=== PATIENT | female | born 1950 | race Caucasian/White ===

== ENCOUNTER 2016-08-31 15:13 | Inpatient (IN) | payer OTHER ==
[~2016-08-31] VITALS: Ht 162.6 cm; Wt 122.1 kg
[~2016-08-31 15:13] MED LIST: ADVIN25050 INH; BMX1 PO; CZR50 PO; IPRA1AER2 INH; IRON1CAP2 PO; POTA20TA16 PO; VTMD1000 PO
--- NOTE | 2016-08-31 15:50 | DIAGNOSTIC IMAGING REPORT ---
CHEST ONE VIEW PORTABLE CLINICAL HISTORY: fever COMPARISON STUDY: 08/12/2015 FINDINGS: The heart is mildly enlarged. There is no focal pulmonary consolidation. There is no failure. There are no pleural effusions. There is evidence for prior vertebroplasty. IMPRESSION: No active disease in the chest. Electronically signed by: Fox Garcia M.D. 08/31/2016 3:49 PM Dictated Date/Time: 08/31/2016 3:47 PM
[2016-08-31 15:53] LABS: VEN BLOOD GAS BASE EXCESS 20.9 mmol/L; VENOUS BLOOD GAS PCO2 103 mmHg (38.0-50.0); VENOUS BLOOD GAS PO2 30 mmHg
[2016-08-31 15:54] LABS: VEN BLD GAS O2 SATURATION < 60.0 %
[2016-08-31 15:58] LABS: BASO % 0.2 %; BASO ABS # 0.03 K/uL (0-0.2); COMPLETE YES; EOS % 3.5 %; HEMATOCRIT 33.5 % (37-47); IG% 0.4 %; LYMPH % 13.8 %; LYMPH ABS # 2.07 K/uL (1.2-3.4); MEAN CELL VOLUME 102.1 fL (80-100); MEAN CORPUSCULAR HEMOGLOBIN 31.7 pg (25-34); MEAN PLATELET VOLUME 9.4 fL (7.4-10.4); NEUT % 77.1 %; PLATELET COUNT 216 K/uL (130-400); RED BLOOD COUNT 3.28 M/uL (4.2-5.4); WHITE BLOOD COUNT 15.01 K/uL (4.8-10.8)
[2016-08-31 16:01] LABS: ISTAT CARBON DIOXIDE > 40 mEq/l (24-31); ISTAT CHLORIDE 84 mEq/L (101-112); ISTAT CREATININE 1.4 mg/dl (0.6-1.3); ISTAT HEMATOCRIT 34 % (37-47); ISTAT HEMOGLOBIN 11.6 g/dl (12.0-16.0); ISTAT IONIZED CALCIUM 1.15 mmol/l (1.12-1.32); ISTAT SODIUM 139 mEq/L (135-144)
[2016-08-31] MEDS ORDERED: ALBUTEROL 0.083% NEBU SOLN 3 ML VIAL INH STA (16:05)
[2016-08-31 16:06] LABS: PROTHROMBIN TIME (PATIENT) 11.2 SECONDS (9.0-12.0)
[2016-08-31] MEDS ORDERED: DOCU100C31 PO (16:11)
[2016-08-31] MEDS ORDERED: ACET-1311 PO (16:11)
[2016-08-31] MEDS ORDERED: SENN-65 PO (16:13)
[2016-08-31 16:22] LABS: ALT/SGPT 18 U/L (12-78); BLOOD UREA NITROGEN 45 mg/dl (7-18); BUN/CREATININE RATIO 28.2 (10-20); CALCIUM 9.4 mg/dl (8.5-10.1); CHLORIDE 89 mmol/L (98-107); GLUCOSE 135 mg/dl (70-99); MAGNESIUM 1.7 mg/dl (1.8-2.4); POTASSIUM 3.9 mmol/L (3.5-5.1); SODIUM 139 mmol/L (136-145)
[2016-08-31 16:27] LABS: ALKALINE PHOSPHATASE 87 U/L (45-117); AST/SGOT 12 U/L (15-37)
[2016-08-31 16:29] LABS: URINE APPEARANCE CLEAR (CLEAR); URINE BILIRUBIN NEG (NEG); URINE COLOR YELLOW; URINE EPITHELIAL CELL AUTO >30 /lpf (0-5); URINE NITRITE NEG (NEG); URINE SPECIFIC GRAVITY 1.004 (1.000-1.030); UROBILINOGEN NEG (NEG); ZZUR CULT IF INDIC CLEAN CATCH YES
[2016-08-31 16:30] LABS: MANUAL MICROSCOPIC REQUIRED? NO; REVIEW REQ? NO
[2016-08-31] MEDS ORDERED: METHYLPREDNISOLONE IV 40 MG in SYRINGE 0 ML IV SCH (16:30)
[2016-08-31] MEDS ORDERED: LEVAQUIN 750MG / 150ML D5W IV ONE (16:30)
[2016-08-31 16:40] VITALS: PULSE 71; O2SAT 71
[2016-08-31 16:48] LABS: CARBON DIOXIDE 45 mmol/L (21-32)
[2016-08-31] MEDS ORDERED: MAGNESIUM HYDROXIDE SUSP 30 ML UDC PO PRN (17:30)
[2016-08-31] MEDS ORDERED: ALUMINUM/MAGNESIUM/SIMETH (MAALOX MAX) 30 ML UDC PO PRN (17:30)
[2016-08-31] MEDS ORDERED: ONDANSETRON INJ 2 MG/ML 2 ML VIAL IV PRN (17:30)
[2016-08-31] MEDS ORDERED: LEVALBUTEROL 0.63MG/3 ML NEB INH PRN (17:30)
[2016-08-31] MEDS ORDERED: NITROGLYCERIN 0.4 MG SL PER TAB CHARGE SL PRN (17:30)
[2016-08-31] MEDS ORDERED: ACETAMINOPHEN 325 MG TAB PO PRN ×2 (17:30)
[2016-08-31] MEDS ORDERED: IPRA1AER2 INH (17:38)
[2016-08-31] MEDS ORDERED: ADVIN50/60 INH (17:38)
[2016-08-31] MEDS ORDERED: ALBINS/ INH (17:38)
[2016-08-31] MEDS ORDERED: POTA20TA16 PO (17:39)
[2016-08-31 18:51] LABS: ARTERIAL BLD GAS O2 SATURATION 96.6 % (90-95); ARTERIAL BLOOD GAS BASE EXCESS 20.5 mEq/L (-9-1.8); ARTERIAL BLOOD GAS HCO3 49 mmol/L (19-24); ARTERIAL BLOOD GAS PO2 103 mm/Hg (80-95)
[2016-08-31 18:52] LABS: ALLEN TEST POS (POS); O2 ADMINISTRATION 40%
--- NOTE | 2016-08-31 19:07 | HISTORY & PHYSICAL EXAMINATION ---
DATE OF ADMISSION: 08/31/2016 CHIEF COMPLAINT: Acute respiratory failure. HISTORY OF PRESENT ILLNESS: This is a 66-year-old female with past medical history significant for chronic respiratory failure secondary to severe COPD, at one point of time she was in hospice secondary to copd; obstructive sleep apnea on BiPAP, history of right-sided heart failure, morbid obesity, hyperlipidemia, hypertension, atrial fibrillation, chronic kidney disease, stage 3-4, history of spinal stenosis, GERD, depression, presents with not feeling well, weak and confused and in the ER her CO2 was high. She was placed on BiPAP. Currently she seems to be back to her baseline. The patient lives with her daughter and she walks with help of a walker.She was here in June with same CO2 retention and COPD exacerbation. At that time she was sent to [facility]. She stayed for 1 week after that came to home and she is apparently doing okay, but last few days she is getting progressively weak, tired and had generalized weakness, not able to ambulate much, appetite is going down and patient seemed confused today and she was brought to the hospital. As per the daughter, patient has BiPAP at home and she is using it regularly while she is sleeping. Has some chills but no fevers, some nausea, no vomiting. She is using stool softeners and currently having diarrhea and daughter thinks secondary to stool softeners. No abdominal pain, no chest pain. Has a dry cough. Currently resting comfortably and hemodynamically stable on BiPAP.Follows with Pulmonary and has an appointment tomorrow. ALLERGIES: No known drug allergies. PAST MEDICAL HISTORY: As mentioned above. PAST SURGICAL HISTORY: Neck spine fusion surgery, appendectomy, cholecystectomy, repair of the wrist with internal fixation, right shoulder replacement, right total hip replacement. MEDICATIONS: Currently the patient is on propafenone 150 mg p.o. q. 8 hours, losartan 50 mg p.o. daily, Lipitor 20 mg p.o. daily, Bumex 1 mg p.o. b.i.d., potassium chloride 20 mEq every other day, vitamin D 2000 units p.o. daily, Combivent 1 puff q.i.d., iron complex daily, multivitamin daily, albuterol nebulization every 4-6 hours p.r.n., Toprol-XL 50 mg p.o. daily, gabapentin 300 mg p.o. t.i.d., levothyroxine 88 mcg p.o. daily, Zantac 150 mg p.o. b.i.d., allopurinol 300 mg p.o. daily, Tylenol 1000 mg p.o. q. 6 hours p.r.n., aspirin 81 mg p.o. daily, Advair Diskus 500/50 mcg 1 puff inhalation b.i.d. FAMILY HISTORY: Significant for mother had diabetes and heart disorder. Sister had CABG at the age of 43. SOCIAL HISTORY: . Former smoker, quit in 2009, smoked half pack a day for 35 years. No alcohol use. No drug use. Currently lives with her daughter. REVIEW OF SYSTEMS: As per HPI. Rest of review of symptoms negative. PHYSICAL EXAMINATION: GENERAL: The patient is morbidly obese, not in distress. VITAL SIGNS: Temperature 36.5, pulse 73, respiratory rate 18, blood pressure 124/54, oxygen 98% on BiPAP. HEENT: No pallor, no icterus. Pupils equal, round, and reactive to light. NECK: No JVD, no neck masses, no carotid bruits. CARDIOVASCULAR: S1, S2 heard, regular rate and rhythm, no murmur, no gallop. RESPIRATORY SYSTEM: Diminished bilateral breath sounds. No wheezing, no crackles. ABDOMEN: Soft, bowel sounds present. Nontender. No distention. CENTRAL NERVOUS SYSTEM: Alert and oriented x3. Nonfocal. EXTREMITIES: No edema. No erythema. LABS: WBC 15, hemoglobin 10.4, hematocrit 33.5, platelets 216. Sodium 139, potassium 3.9, chloride 89, CO2 of 45, BUN 45, creatinine 1.6, serum glucose 135, point of care lactic acid 1.16, calcium 9.4, magnesium 1.7, total bilirubin 0.3, direct bilirubin 0.1, AST of 12, ALT 18, alkaline phosphatase 87, total creatine kinase 26, troponin I less than 0.015. PT 11.2, INR 1. Urinalysis, small leukocyte esterase. Chest x-ray: No acute process seen. EKG, normal sinus rhythm with a rate of 69, nonspecific ST abnormality, no significant change from previous EKG. ASSESSMENT AND PLAN: This is a 66-year-old female who presents with acute on chronic respiratory failure secondary to chronic obstructive pulmonary disease exacerbation. 1. Acute on chronic respiratory failure with chronic obstructive pulmonary disease exacerbation. Venous blood gas showed a pCO2 of 103. Currently, saturating fine on BiPAP. We will place her on IV Solu-Medrol, IV Levaquin, nebs, continue the BiPAP. Repeat ABG. The patient is to follow up with pulmonary. We will consult pulmonary for further recommendations. 2. Obstructive sleep apnea, on BiPAP. BiPAP setting adjustment as per pulmonary. 3. possible urinary tract infection on Levaquin. We will follow the cultures. 4. Right-sided heart failure. Does not seem to be volume overload. Continue her home Bumex and potassium supplements. Monitor for any volume overload. 5. Acute renal failure and chronic kidney disease. Baseline creatinine around 1.3 to 1.4, creatinine 1.6, possibly from above. We will follow the labs. If worsening, we will hold the Bumex. 6. History of hyperlipidemia. Continue statin. 7. History of hypertension. Continue Cozaar and metoprolol. Monitor the blood pressure. 8. History of atrial fibrillation, currently in sinus rhythm on metoprolol. Not on any blood thinners. 9. Gastroesophageal reflux disease, on proton pump inhibitors. 10. Deep venous thrombosis prophylaxis, heparin subQ, sequential compression devices. DISPOSITION: Admit to tele floor. PT and OT prior to discharge. Social service to help with discharge planning. Code status level 3. MTDD
[2016-08-31] MEDS ORDERED: LEVOFLOXACIN CONSULT ACTIVE PRN (20:00)
[2016-08-31 20:51] VITALS: BP 139/67; PULSE 81; TEMP 36.8; O2SAT 92; Ht 162.6 cm; Wt 122.1 kg
--- NOTE | 2016-08-31 21:21 | EMERGENCY ROOM VISIT NOTE ---
History Report prepared by Warren: Eunice Leach Under the Supervision of: Jose Enrique AyersO. First contact with patient: 15:14 Stated Complaint: ALTERED MENTAL STATUS History of Present Illness The patient is a 66 year old female who presents to the Emergency Room via EMS with complaints of a persistent productive cough starting about 2 weeks ago. About 2 weeks ago, she also started having shakiness. She is on 4 L of oxygen at home and denies any changes. She has a history of asthma and COPD. She also started having diarrhea a few weeks ago. She has a bowel movement about 3-4 times a day. She had a diarrheal bowel movement this morning. The patient denies any recent antibiotics. Daughter notes that she has been more confused recently. She's been having trouble remembering the date and year. This has happened before in the past when she had an elevated CO2. Also having trouble following conversations. Pt denies headache, change in vision, fevers, chest pain, nausea, vomiting, pain with urination, and melena. Source of History: patient, EMS Onset: about 2 weeks ago Position: other (global) Quality: other (productive cough) Timing: other (persistent) Associated Symptoms: + diarrhea, No chest pain, No fevers, No headache, No nausea, No vomiting Review of Systems See HPI for pertinent positives & negatives. A total of 10 systems reviewed and were otherwise negative. Past Medical & Surgical Medical Problems: (1) Acute and chronic respiratory failure (2) CHF (congestive heart failure) (3) CKD (chronic kidney disease), stage IV (4) COPD (chronic obstructive pulmonary disease) (5) COPD exacerbation (6) Depression (7) Dyslipidemia (8) Fall (9) GERD (gastroesophageal reflux disease) (10) HTN (hypertension) (11) EVONNE (iron deficiency anemia) (12) Myocardial infarction (13) Paroxysmal a-fib Surgical Problems: (1) History of appendectomy (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 (4) Hx of cholecystectomy (5) S/P cervical spinal fusion (6) S/P wrist surgery Family History Diabetes mellitus MOTHER FH: CAD (coronary artery disease) MOTHER SISTER Social History Smoking Status: Former Smoker Alcohol Use: none Drug Use: none Marital Status: single Housing Status: lives with family Occupation Status: retired Current/Historical Medications Scheduled Allopurinol (Zyloprim), 300 MG PO DAILY Aspirin (Aspirin Ec), 81 MG PO DAILY Atorvastatin (Lipitor), 20 MG PO DAILY Bumetanide (Bumetanide), 1 MG PO BID Ferrous Sulfate (Kp Ferrous Sulfate), 1 TAB PO DAILY Fluticasone Prop/Salmeterol (Advair Diskus 500/50 60 Dose), 1 PUFFS INH BID Gabapentin (Neurontin), 300 MG PO TID Ipratropium-Albuterol (Combivent Respimat), 1 PUFFS INH QID Levothyroxine Sodium (Synthroid), 88 MCG PO DAILY Losartan Potassium (Losartan Potassium), 50 MG PO QAM Metoprolol Succinate (Toprol Xl), 50 MG PO DAILY Multivitamins/Minerals (Certavite/Antioxidants), 1 TAB PO DAILY Potassium Ext Rel (Klor-Con), 20 MEQ PO Q2D Propafenone Hcl (Propafenone Hcl), 150 MG PO TID Ranitidine (Zantac), 150 MG PO BID Scheduled PRN Acetaminophen (Tylenol), 650 MG PO Q4H PRN for Pain or Fever Albuterol Sulf (Proventil 0.083% 2.5MG/3ML), 2.5 MG INH QID PRN for SOB/Wheezing Allergies Coded Allergies: Adhesives (Verified Allergy, Severe, RED RASH, 08/31/16) Latex1 -Allergic Contact Dermititis (Verified Adverse Reaction, Mild, TAPE -SORE, 08/31/16) Morphine (Verified Adverse Reaction, Mild, DELUSIONS, 08/31/16) Physical Exam Vital Signs Date Time Temp Pulse Resp B/P Pulse Ox O2 Delivery O2 Flow Rate FiO2 08/31/16 17:01 73 18 124/54 99 BiPAP 08/31/16 16:40 71 71 08/31/16 16:12 98 Nasal Cannula 4.0 08/31/16 15:29 77 08/31/16 15:19 79 20 136/60 96 Nasal Cannula 4.0 08/31/16 15:18 36.5 74 16 136/60 98 Nasal Cannula 4.0 Physical Exam GENERAL: Sitting up in bed, disheveled, ill appearing, on nasal canula. EYE EXAM: normal conjunctiva OROPHARYNX: no exudate, no erythema, lips, buccal mucosa, and tongue normal and mucous membranes are moist NECK: supple, no nuchal rigidity, no adenopathy, non-tender LUNGS: Crackles bilaterally. Normal chest wall mechanics HEART: no murmurs, S1 normal and S2 normal ABDOMEN: abdomen soft, non-tender, normo-active bowel sounds, no masses, no rebound or guarding. BACK: Back is symmetrical on inspection and there is no deformity, no midline tenderness, no CVA tenderness. SKIN: no rashes and no bruising UPPER EXTREMITIES: upper extremities are grossly normal. LOWER EXTREMITIES: Calves are equal bilaterally. No pitting edema. NEURO EXAM: Normal sensorium, cranial nerves II-XII grossly intact, normal speech, no gross weakness of arms, no gross weakness of legs. Medical Decision & Procedures ER Provider Diagnostic Interpretation: Xray results per the radiologist and my interpretation. CHEST ONE VIEW PORTABLE CLINICAL HISTORY: fever COMPARISON STUDY: 08/12/2015 FINDINGS: The heart is mildly enlarged. There is no focal pulmonary consolidation. There is no failure. There are no pleural effusions. There is evidence for prior vertebroplasty. IMPRESSION: No active disease in the chest. Electronically signed by: Fox Garcia M.D. 08/31/2016 3:49 PM Dictated Date/Time: 08/31/2016 3:47 PM Laboratory Results 08/31/16 14:50 Red Blood Count 3.28, Mean Corpuscular Volume 102.1, Mean Corpuscular Hemoglobin 31.7, Mean Corpuscular Hemoglobin Concent 31.0, Mean Platelet Volume 9.4, Neutrophils (%) (Auto) 77.1, Lymphocytes (%) (Auto) 13.8, Monocytes (%) ( Auto) 5.0, Eosinophils (%) (Auto) 3.5, Basophils (%) (Auto) 0.2, Neutrophils # ( Auto) 11.57, Lymphocytes # (Auto) 2.07, Monocytes # (Auto) 0.75, Eosinophils # ( Auto) 0.53, Basophils # (Auto) 0.03 08/31/16 15:40 Test 08/31/16 14:50 08/31/16 15:40 08/31/16 15:45 08/31/16 16:08 White Blood Count 15.01 K/uL (4.8-10.8) Red Blood Count 3.28 M/uL (4.2-5.4) Hemoglobin 10.4 g/dL (12.0-16.0) Hematocrit 33.5 % (37-47) Mean Corpuscular Volume 102.1 fL (80-100) Mean Corpuscular Hemoglobin 31.7 pg (25-34) Mean Corpuscular Hemoglobin Concent 31.0 g/dl (32-36) Platelet Count 216 K/uL (130-400) Mean Platelet Volume 9.4 fL (7.4-10.4) Neutrophils (%) (Auto) 77.1 % Lymphocytes (%) (Auto) 13.8 % Monocytes (%) (Auto) 5.0 % Eosinophils (%) (Auto) 3.5 % Basophils (%) (Auto) 0.2 % Neutrophils # (Auto) 11.57 K/uL (1.4-6.5) Lymphocytes # (Auto) 2.07 K/uL (1.2-3.4) Monocytes # (Auto) 0.75 K/uL (0.11-0.59) Eosinophils # (Auto) 0.53 K/uL (0-0.5) Basophils # (Auto) 0.03 K/uL (0-0.2) RDW Standard Deviation 54.4 fL (36.4-46.3) RDW Coefficient of Variation 14.6 % (11.5-14.5) Immature Granulocyte % (Auto) 0.4 % Immature Granulocyte # (Auto) 0.06 K/uL (0.00-0.02) Bedside Hemoglobin 11.6 g/dl (12.0-16.0) Bedside Hematocrit 34 % (37-47) Prothrombin Time 11.2 SECONDS (9.0-12.0) Prothromb Time International Ratio 1.0 (0.9-1.1) Venous Blood pH 7.32 (7.36-7.41) Venous Blood Partial Pressure CO2 103 mmHg (38.0-50.0) Venous Blood Partial Pressure O2 30 mmHg Venous Blood HCO3 51 mmol/L Venous Blood Oxygen Saturation < 60.0 % Venous Blood Base Excess 20.9 mmol/L Bedside Sodium 139 mEq/L (135-144) Bedside Potassium 3.9 mEq/L (3.3-5.0) Bedside Chloride 84 mEq/L (101-112) Bedside Total CO2 > 40 mEq/l (24-31) Anion Gap 15.0 mmol/L (16-25) Bedside Blood Urea Nitrogen 45 mg/dl (7-18) Bedside Creatinine 1.4 mg/dl (0.6-1.3) Est Creatinine Clear Calc Drug Dose 42.9 ml/min Estimated GFR () 38.0 Estimated GFR (Non- 32.8 BUN/Creatinine Ratio 28.2 (10-20) Bedside Glucose (other) 143 mg/dl (70-99) Calcium Level 9.4 mg/dl (8.5-10.1) Bedside Ionized Calcium (Shanika) 1.15 mmol/l (1.12-1.32) Magnesium Level 1.7 mg/dl (1.8-2.4) Total Bilirubin 0.3 mg/dl (0.2-1) Direct Bilirubin < 0.1 mg/dl (0-0.2) Aspartate Amino Transf (AST/SGOT) 12 U/L (15-37) Alanine Aminotransferase (ALT/SGPT) 18 U/L (12-78) Alkaline Phosphatase 87 U/L (45-117) Total Creatine Kinase 26 U/L (26-192) Creatine Kinase MB < 0.5 ng/ml (0.5-3.6) Creatine Kinase MB Ratio (0-3.0) Troponin I < 0.015 ng/ml (0-0.045) Total Protein 7.8 gm/dl (6.4-8.2) Albumin 3.1 gm/dl (3.4-5.0) Bedside Lactic Acid Venous 1.16 mmol/L (0.90-1.70) Urine Color YELLOW Urine Appearance CLEAR (CLEAR) Urine pH 5.0 (4.5-7.5) Urine Specific [place] 1.004 (1.000-1.030) Urine Protein NEG (NEG) Urine Glucose (UA) NEG (NEG) Urine Ketones NEG (NEG) Urine Occult Blood NEG (NEG) Urine Nitrite NEG (NEG) Urine Bilirubin NEG (NEG) Urine Urobilinogen NEG (NEG) Urine Leukocyte Esterase SMALL (NEG) Urine WBC (Auto) 5-10 /hpf (0-5) Urine RBC (Auto) 10-30 /hpf (0-4) Urine Hyaline Casts (Auto) 0 /lpf (0-5) Urine Epithelial Cells (Auto) >30 /lpf (0-5) Urine Bacteria (Auto) 2+ (NEG) Laboratory results per my review. Medications Administered Medications (Trade) Dose Ordered Sig/Rupinder Route Start Time Stop Time Status Last Admin Dose Admin Albuterol Sulfate (Ventolin 0.083% 2.5MG/3ML Neb) 2.5 mg NOW STAT INH 08/31/16 16:05 08/31/16 16:07 DC 08/31/16 17:10 2.5 MG Levofloxacin 750 mg 750 mg NOW ONCE IV 08/31/16 16:30 08/31/16 16:31 DC 08/31/16 16:57 750 MG Methylprednisolone Sodium Succinate/ Syringe (Solu-Medrol IV/ Syringe) 0.64 ml @ 1.5 mls/min NOW IV 08/31/16 16:30 08/31/16 19:53 DC 08/31/16 17:15 1.5 MLS/MIN ECG Indication: SOB/dyspnea, other (Cough; confusion) Rate (beats per minute): 69 Rhythm: sinus rhythm Findings: Q waves (Septal), other (normal axis) ED Course ED COURSE: Vital signs were reviewed and showed chronically on 4 liters of oxygen. The patients medical record was reviewed The above diagnostic studies were performed and reviewed. ED treatments and interventions as stated above. 1514: The patient was evaluated in room B02. A complete history and physical examination was performed. 1605: Albuterol Sulfate 2.5 mg INH 1620: I reevaluated the patient. She reports that she had similar symptoms the last time her CO2 was elevated. 1630: Methyl prednisolone Sodium Succinate 40 mg/Syringe 0.64 ml @ 1.5 mls/min IV, Levofloxacin 750 mg IV 1641: I discussed the [facility] Upon reevaluation, the patient is resting comfortably.I discussed my findings with the patient and she understands and agrees with the treatment plan. Based on the patients age, coexisting illnesses, exam and lab findings the decision to treat as an inpatient was made. The patient remained stable while under my care. The patient will be evaluated for further management. Medical Decision Differential diagnoses includes but is not limited to pneumonia, bronchitis, COPD/Asthma exacerbation, pneumothorax, pulmonary embolism, congestive heart failure, acute coronary syndrome Patient is a 66-year-old female who presents the ER for confusion associated with a cough and diffuse weakness/shakiness. She has a history of COPD/asthma. Patient has no other complaints at this time. On exam patient is on chronically 4 L nasal cannula. VBG shows a CO2 of 103. White count is elevated 15,000. With her history of COPD I did elect to give her steroids, and had and Levaquin with the change in sputum. Chest x-ray showed no obvious infiltrate. EKG was nondiagnostic. UA was contaminated. Patient was updated bedside and placed on BiPAP because of the elevated CO2 as I thought this would improve her mentation. She was updated at bedside and admitted to internal medicine. Consults Time Called: 1630 Consulting Physician: [facility] Returned Call: 1641 I discussed the patient's [facility] Impression Primary Impression: Hypercarbia Additional Impressions: Respiratory failure Leukocytosis COPD exacerbation Scribe Attestation The scribe's documentation has been prepared under my direction and personally reviewed by me in its entirety. I confirm that the note above accurately reflects all work, treatment, procedures, and medical decision making performed by me. Departure Information Dispostion Being Evaluated By Hospitalist Prescriptions Potassium Ext Rel (Klor-Con) 20 Meq Tabcr 20 MEQ PO Q2D for 30 Days, TAB every other day Prov: Manjit Frias MD 08/31/16 Albuterol Sulf (PROVENTIL 0.083% 2.5MG/3ML) 2.5 Mg/3 Ml Nebu 2.5 MG INH QID Y for SOB/Wheezing, #1 EA Prov: Manjit Frias MD 08/31/16 Ipratropium-Albuterol (COMBIVENT RESPIMAT) 1 Aer Aer 1 PUFFS INH QID, #1 INH Prov: Manjit Frias MD 08/31/16 Fluticasone Prop/Salmeterol (Advair Diskus 500/50 60 Dose) 1 Ea Aerp 1 PUFFS INH BID for 30 Days, #1 INHALER 5 Refills Prov: Manjit Frias MD 08/31/16 Referrals Babak Melendez M.D.([facility]) (PCP) Problem Qualifiers Additional Impressions: Respiratory failure Chronicity: acute on chronic Respiratory failure complication: unspecified whether with hypoxia or hypercapnia Qualified Codes: J96.20 - Acute and chronic respiratory failure, unspecified whether with hypoxia or hypercapnia Leukocytosis Leukocytosis type: unspecified Qualified Codes: D72.829 - Elevated white blood cell count, unspecified
[2016-08-31] MEDS: BUMETANIDE 1 MG TAB PO SCH (23:15)
[2016-08-31] MEDS: FLUTICASONE/SALMETEROL (ADVAIR) 500/50 INH 14 PUFF INH SCH (23:15)
[2016-08-31] MEDS: LEVALBUTEROL 1.25MG/3ML NEB INH SCH (23:15)
[2016-08-31] MEDS: RANITIDINE HCL 150 MG TAB PO SCH (23:16)
[2016-08-31] MEDS: GABAPENTIN 300 MG CAP PO SCH (23:16)
[2016-08-31] MEDS: PROPAFENONE HCL 150 MG TAB PO SCH (23:16)
[2016-08-31] MEDS: HEPARIN SOD 5000 UNIT/0.5 ML CARP SQ SCH (23:19)
[2016-08-31 23:27] VITALS: PULSE 78
[2016-09-01] VITALS (14 sets, daily range): BP systolic 112–143; BP diastolic 47–71; PULSE 69–87; TEMP 36.5–37; O2SAT 90–98
[2016-09-01] MEDS: LEVALBUTEROL 1.25MG/3ML NEB INH SCH ×4 (03:50→21:00)
[2016-09-01] MEDS: METHYLPREDNISOLONE IV 40 MG in SYRINGE 0 ML IV SCH ×3 (03:51→16:07)
[2016-09-01 05:12] LABS: BASO % 0.1 %; BASO ABS # 0.01 K/uL (0-0.2); COMPLETE YES; EOS % 0.1 %; HEMATOCRIT 32.7 % (37-47); IG% 0.3 %; LYMPH % 5.6 %; LYMPH ABS # 0.83 K/uL (1.2-3.4); MEAN CELL VOLUME 101.2 fL (80-100); MEAN CORPUSCULAR HEMOGLOBIN 31.6 pg (25-34); MEAN CORPUSCULAR HGB CONC 31.2 g/dl (32-36); MEAN PLATELET VOLUME 9.6 fL (7.4-10.4); MONO % 0.8 %; NEUT % 93.1 %; PLATELET COUNT 205 K/uL (130-400); RED BLOOD COUNT 3.23 M/uL (4.2-5.4); WHITE BLOOD COUNT 14.81 K/uL (4.8-10.8)
[2016-09-01 05:30] LABS: BUN/CREATININE RATIO 31.5 (10-20); CALCIUM 9.4 mg/dl (8.5-10.1); CREATININE 1.5 mg/dl (0.60-1.20); MAGNESIUM 1.6 mg/dl (1.8-2.4); POTASSIUM 4.1 mmol/L (3.5-5.1)
[2016-09-01] MEDS: HEPARIN SOD 5000 UNIT/0.5 ML CARP SQ SCH ×3 (05:40→21:21)
[2016-09-01] MEDS: LEVOTHYROXINE 88 MCG TAB PO SCH (06:07)
[2016-09-01] MEDS ORDERED: MAGNESIUM SULFATE 1GM / D5W 1 GM in PREMIXED IN D5W 100 ML IV ONE (06:45)
[2016-09-01] MEDS: FLUTICASONE/SALMETEROL (ADVAIR) 500/50 INH 14 PUFF INH SCH ×2 (07:24→20:10)
[2016-09-01] MEDS: ATORVASTATIN 20 MG TAB PO SCH (07:24)
[2016-09-01] MEDS: GABAPENTIN 300 MG CAP PO SCH ×3 (07:24→20:10)
[2016-09-01] MEDS: BUMETANIDE 1 MG TAB PO SCH ×2 (07:24→16:08)
[2016-09-01] MEDS: POTASSIUM CHLORIDE 20 MEQ TABCR PO SCH (07:25)
[2016-09-01] MEDS: CEROVITE ADV FORMULA TAB PO SCH (07:25)
[2016-09-01] MEDS: FERROUS SULFATE 325 MG TAB PO SCH (07:25)
[2016-09-01] MEDS: METOPROLOL SUCC 50MG EXT REL TAB PO SCH (07:25)
[2016-09-01] MEDS: PROPAFENONE HCL 150 MG TAB PO SCH ×3 (07:25→20:10)
[2016-09-01] MEDS: ALLOPURINOL 300 MG TAB PO SCH (07:26)
[2016-09-01] MEDS: ASPIRIN 81 MG ECTAB PO SCH (07:26)
[2016-09-01] MEDS: LOSARTAN POTASSIUM 50 MG TAB PO SCH (07:26)
[2016-09-01] MEDS: RANITIDINE HCL 150 MG TAB PO SCH ×2 (07:26→20:10)
[2016-09-01 07:36] LABS: ALLEN TEST POS (POS); ARTERIAL BLD GAS O2 SATURATION 94.8 % (90-95); ARTERIAL BLOOD GAS BASE EXCESS 19.4 mEq/L (-9-1.8); ARTERIAL BLOOD GAS HCO3 48 mmol/L (19-24); ARTERIAL BLOOD GAS PO2 84 mm/Hg (80-95); ARTERIAL BLOOD GAS pH 7.39 (7.35-7.45); O2 ADMINISTRATION 4L
[2016-09-01] MEDS: ALBUT/IPRATROP 3MG/0.5MG NEB 3 ML VIAL INH SCH ×4 (08:00→19:20)
--- NOTE | 2016-09-01 09:18 | Clinical Documentation Query ---
CLINICAL DOCUMENTATION QUERY Dr. KUMAR, In your clinical opinion is this patient being managed for: ( + ) Chronic R sided CHF with preserved EF ( ) Other explanation of clinical findings (Please Explain) ( ) Unable to determine (Please Define) ( ) Need to Discuss ( ) Not Agree The medical record reflects the following clinical findings, treatment, and risk factors. Clinical Indicators: 66 yo female presenting with COPD exacerbation. H/P indicates pt with R sided heart failure (not volume overloaded). Review of ECHO May 2016 revealed EF 65-70% with grade I diastolic dysfunction. Treatment: continue home bumex, tele, I/O, daily wts Risk Factors: age, CKD stage IV, HTN, COPD Please clarify and document your clinical opinion in the progress notes and discharge summary. Terms such as "probable", "suspected", "likely", "questionable", "possible", or "still to be ruled out" are acceptable. IF IN AGREEMENT, YOU MUST DOCUMENT ABOVE DIAGNOSTIC STATEMENT IN DAILY PROGRESS NOTES AND DISCHARGE SUMMARY. This document is not part of the patient's record. Thank You, Hayde Calabrese, RN [phone]
--- NOTE | 2016-09-01 11:12 | Pulmonary Consultation ---
History General Date of Service: Sep 01, 2016. Stated Complaint: Acute And Chronic Respiratory Failure, Copd HPI The patient is a 66 year old female who presents to [facility] with complaints of Acute And Chronic Respiratory Failure, Copd. The patient's primary care provider is Babak Melendez M.D.(RAMEZ). Mrs. Padron is a 66-year-old female with a PmHx: of morbid obesity, severe COPD/cor pulmonale (chronic O2 2Lnc/previously on hospice), SIMONA on BiPAP with O2 support (4L), recurrent diastolic congestive heart failure, paroxysmal atrial fibrillation, hypertension, dyslipidemia, gastroesophageal reflux disease , and chronic renal insufficiency. After her most recent d/c from [facility] she went to [facility] for rehabilitation x 1week. She then went home and has been experiencing progressive AHN, generalized weakness, decreased appetite and confusion. She and her daughter do not BiPaP compliance during sleep. Today the patient notes decreased dyspnea at rest but is unable to define whether she is dyspneic at exertion secondary to her size. Denies: Fever, chills, chest pain, pleurisy, productive cough Work-up: WBC: 15K AB.40/82/103/4940% VB.32/103/30corrected: 7.36/87 Bicarb: 47estimated PaC02: 80 BUN/Cr: 47/1.50 Hep C: negative Urine Cx: pending CXR (08/31/16) hilar fullness with gabe-bronchial cuffing, no focal infiltrates CT chest (06/12/16) Bilateral pleural thickening gravity dependent regions RUL GGO 12mm RUL 7mm solid nodule Bilateral lower lobe bronchiectasis Previous workup: Echocardiogram (11/01/12) 1.LV: EF=55-60% 2.RV: normal size and function 3.RVSP:50-60mmHg 4.Dilated inferior vena cava Microbiology: 09/01/12: Right hip--Corynebacterium, coag-negative staph, enterococcus Faceium x2 (VRE) 10/05/12: Right hip synovial [id number] staph 10/05/12: Right hip tissue--coag-negative staph 10/23/12: Urine --Serratia marcescens 12/22/12: Right hip--coag negative staph 2 08/20/12: Sputum--pseudomonas 06/01/13: Urine--- Escherichia coli + enterococcus (VRE) 05/29/16: Urine--- Escherichia coli Historian: patient, family, EMS Review of Systems Constitutional: reports: no symptoms Eyes: reports: no symptoms ENT: reports: no symptoms Cardiovascular: reports: no symptoms Respiratory: reports: AHN Gastrointestinal: reports: no symptoms Genitourinary - Female: reports: no symptoms Musculoskeletal: reports: back pain, myalgias Integumentary: reports: no symptoms Neurologic: reports: no symptoms Psychiatric: reports: no symptoms Endocrine: no symptoms Hematologic / Lymphatic: no symptoms Allergic / Immunologic: no symptoms Past Medical History Past Medical History: ActiveProblems_40_twCiteListControlStart 1. Carotid Atherosclerosis 2. CKD 3 3. COPD/chronic bronchitis (chronic 2Lnc) 4. Diastolic CHF 5. GERD 6. Cor Pulmonale 7. Coronary Artery Disease 8. Dyslipidemia 9. Hypertension 10.Hypothyroidism 11. Obesity 12. Obstructive Sleep Apnea 13. Paroxysmal Atrial Fibrillation 14. Renal Insufficiency 15. PastMedicalHistory_10_twCiteListControlStart Depression 16. Paroxysmal coughing causing 3 broken ribsParoxysmal coughing/3 broken ribs 17. Right sixth rib fractureright 6th rib fx 18. 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 RUL GGO Past Medical History: A Fib, congestive heart failure, COPD, depression, high cholesterol, hypothyroidism, other Past Surgical History: 1. Appendectomy 2. Cholecystectomy with Common Bile Duct Exploration 3. Hip Surgery Right/total hip 4. Oophorectomy V45.77 5. Rotator Cuff Repair right 2011 6. Right femoral fracture-ORIF July 2012 7. EGD 3 8. Bronchoscopy 9. Sigmoidoscopy 10. spinal fusion Past Surgical History: cholecystectomy Family History Diabetes mellitus MOTHER FH: CAD (coronary artery disease) MOTHER SISTER Other: Other Social History Hx Tobacco Use In Past Year?: No Smoking Status: Former Smoker Alcohol: never Drug Use: none Marital status: single Occupational Status: retired Immunizations History of Influenza Vaccine: Yes Influenza Vaccine Date: May 19, 2016 History of Tetanus Vaccine?: Yes Tetanus Immunization Date: Jan 11, 2008 History of Pneumococcal: Yes Pneumococcal Date: May 19, 2016 History of MDRO History of MDRO: Yes Type of MDRO: VRE Allergies Coded Allergies: Adhesives (Verified Allergy, Severe, RED RASH, 08/31/16) Latex1 -Allergic Contact Dermititis (Verified Adverse Reaction, Mild, TAPE -SORE, 08/31/16) Morphine (Verified Adverse Reaction, Mild, DELUSIONS, 08/31/16) Current Medications Reported Home Medications Medications Dose Route/Sig Max Daily Dose Days Date Category Dose Instructions Klor-Con (Potassium Chloride) 20 Meq Tabcr 20 Meq PO Q2D 30 08/31/16 Rx every other day Proventil 0.083% 2.5MG/3ML (Albuterol Sulf) 2.5 Mg/3 Ml Nebu 2.5 Mg INH QID PRN 08/31/16 Rx Combivent Respimat (Ipratropium-Albuterol) 1 Aer Aer 1 Puffs INH QID 08/31/16 Rx Advair Diskus 500/50 60 Dose (Fluticasone Prop/Salmeterol) 1 Ea Aerp 1 Puffs INH BID 30 08/31/16 Rx Tylenol (Acetaminophen) 325 Mg Tab 650 Mg PO Q4H PRN 08/31/16 Reported Kp Ferrous Sulfate (Ferrous Sulfate) 325 Mg Tab 1 Tab PO DAILY 30 08/31/16 Reported Bumetanide 1 Mg Tab 1 Mg PO BID 30 06/15/16 Rx Losartan Potassium 50 Mg Tab 50 Mg PO QAM 30 06/02/16 Rx Lipitor (Atorvastatin) 20 Mg Tab 20 Mg PO DAILY 06/01/16 Reported Certavite/Antioxidants (Multivitamins/Minerals) 1 Tab Tab 1 Tab PO DAILY 06/01/16 Reported Propafenone Hcl 150 Mg Tab 150 Mg PO TID 05/29/16 Reported Zyloprim (Allopurinol) 300 Mg Tab 300 Mg PO DAILY 05/29/16 Reported Synthroid (Levothyroxine Sodium) 88 Mcg Tab 88 Mcg PO DAILY 05/29/16 Reported Toprol Xl (Metoprolol Succinate) 50 Mg Tab 50 Mg PO DAILY 06/08/13 Reported Neurontin (Gabapentin) 300 Mg Cap 300 Mg PO TID 06/08/13 Reported Aspirin Ec (Aspirin) 81 Mg Tab 81 Mg PO DAILY 04/03/13 Reported Zantac (Ranitidine HCl) 150 Mg Tab 150 Mg PO BID 03/08/13 Reported Physical Physical Exam Vital Signs: Date Time Temp Pulse Resp B/P Pulse Ox O2 Delivery O2 Flow Rate FiO2 09/01/16 08:00 Room Air 09/01/16 07:30 87 16 97 Nasal Cannula 4.0 09/01/16 05:11 76 09/01/16 04:00 36.6 78 24 143/71 98 Nasal Cannula 4.0 09/01/16 04:00 Nasal Cannula 4.0 09/01/16 03:45 73 16 Nasal Cannula 4.0 94 09/01/16 02:02 74 09/01/16 00:00 36.7 76 22 139/58 97 Nasal Cannula 4.0 09/01/16 00:00 Nasal Cannula 4.0 08/31/16 23:27 78 18 Nasal Cannula 4.0 96 08/31/16 22:21 88 08/31/16 20:51 36.8 81 24 139/67 92 Nasal Cannula 6.0 08/31/16 19:53 70 24 139/67 96 Room Air 08/31/16 19:29 76 08/31/16 18:32 72 125/60 99 BiPAP 08/31/16 17:01 73 18 124/54 99 BiPAP 08/31/16 16:40 71 71 08/31/16 16:12 98 Nasal Cannula 4.0 08/31/16 15:29 77 08/31/16 15:19 79 20 136/60 96 Nasal Cannula 4.0 08/31/16 15:18 36.5 74 16 136/60 98 Nasal Cannula 4.0 General Appearance: mild distress Head: NORMOCEPHALIC, ATRAUMATIC Eyes: PERRLA, NO DISCHARGE, EOMI, SCLERAE NORMAL, CONJUNCTIVAE NORMAL ENT: NORMAL EAR EXAM, NORMAL NASAL EXAM, NORMAL MOUTH EXAM, NORMAL THROAT EXAM Neck: other (short neck estimated circumference of the neck is probably greater than 18 cm) Respiratory: other (decreased breath sounds bilaterally but clear to auscultation) Cardiovasular: REGULAR RATE/RHYTHM, NORMAL S1S2, NO M/G/R, NO MURMUR, NO GALLOP Abdomen: NON TENDER, NORMAL BOWEL SOUNDS, NO REBOUND, NO MASSES, other (morbid obesity) Genitourinary - Female: EXTERNAL GENITALIA NORMAL Back: NORMAL INSPECTION, NO MIDLINE TENDERNESS, NO CVA TENDERNESS Upper Extremities: NO EDEMA, NO DEFORMITY, NORMAL ROM Lower Extremities: NO EDEMA, NO DEFORMITY, NORMAL ROM Pulses: carotid (R) (2+), carotid (L) (2+), radial (R), posterior tibial (R), posterior tibial (L) (1+) Neuro: ALERT, NORMAL MOTOR EXAM, NORMAL SENSATION, other (oriented to person and place) Reflexes: biceps (R) (2+), bicpes (L) (2+) Babinski Testing: right (downgoing), left (downgoing) Psychiatric: flat affect Diagnostics Labs Results Past 24 Hours Test 08/31/16 14:50 08/31/16 15:40 08/31/16 15:45 08/31/16 16:08 Range/Units White Blood Count 15.01 4.8-10.8 K/uL Red Blood Count 3.28 4.2-5.4 M/uL Hemoglobin 10.4 12.0-16.0 g/dL Hematocrit 33.5 37-47 % Mean Corpuscular Volume 102.1 80-100 fL Mean Corpuscular Hemoglobin 31.7 25-34 pg Mean Corpuscular Hemoglobin Concent 31.0 32-36 g/dl Platelet Count 216 130-400 K/uL Mean Platelet Volume 9.4 7.4-10.4 fL Neutrophils (%) (Auto) 77.1 % Lymphocytes (%) (Auto) 13.8 % Monocytes (%) (Auto) 5.0 % Eosinophils (%) (Auto) 3.5 % Basophils (%) (Auto) 0.2 % Neutrophils # (Auto) 11.57 1.4-6.5 K/uL Lymphocytes # (Auto) 2.07 1.2-3.4 K/uL Monocytes # (Auto) 0.75 0.11-0.59 K/uL Eosinophils # (Auto) 0.53 0-0.5 K/uL Basophils # (Auto) 0.03 0-0.2 K/uL RDW Standard Deviation 54.4 36.4-46.3 fL RDW Coefficient of Variation 14.6 11.5-14.5 % Immature Granulocyte % (Auto) 0.4 % Immature Granulocyte # (Auto) 0.06 0.00-0.02 K/uL Bedside Hemoglobin 11.6 12.0-16.0 g/dl Bedside Hematocrit 34 37-47 % Prothrombin Time 11.2 9.0-12.0 SECONDS Prothromb Time International Ratio 1.0 0.9-1.1 Venous Blood pH 7.32 7.36-7.41 Venous Blood Partial Pressure CO2 103 38.0-50.0 mmHg Venous Blood Partial Pressure O2 30 mmHg Venous Blood HCO3 51 mmol/L Venous Blood Oxygen Saturation < 60.0 % Venous Blood Base Excess 20.9 mmol/L Bedside Sodium 139 135-144 mEq/L Sodium Level 139 136-145 mmol/L Bedside Potassium 3.9 3.3-5.0 mEq/L Potassium Level 3.9 3.5-5.1 mmol/L Bedside Chloride 84 101-112 mEq/L Chloride Level 89 98-107 mmol/L Carbon Dioxide Level 45 21-32 mmol/L Bedside Total CO2 > 40 24-31 mEq/l Anion Gap 15.0 16-25 mmol/L Bedside Blood Urea Nitrogen 45 7-18 mg/dl Blood Urea Nitrogen 45 7-18 mg/dl Creatinine 1.60 0.60-1.20 mg/dl Bedside Creatinine 1.4 0.6-1.3 mg/dl Est Creatinine Clear Calc Drug Dose 42.9 ml/min Estimated GFR () 38.0 Estimated GFR (Non- 32.8 BUN/Creatinine Ratio 28.2 10-20 Bedside Glucose (other) 143 70-99 mg/dl Random Glucose 135 70-99 mg/dl Calcium Level 9.4 8.5-10.1 mg/dl Bedside Ionized Calcium (Shanika) 1.15 1.12-1.32 mmol/l Magnesium Level 1.7 1.8-2.4 mg/dl Total Bilirubin 0.3 0.2-1 mg/dl Direct Bilirubin < 0.1 0-0.2 mg/dl Aspartate Amino Transf (AST/SGOT) 12 15-37 U/L Alanine Aminotransferase (ALT/SGPT) 18 12-78 U/L Alkaline Phosphatase 87 45-117 U/L Total Creatine Kinase 26 26-192 U/L Creatine Kinase MB < 0.5 0.5-3.6 ng/ml Creatine Kinase MB Ratio 0-3.0 Troponin I < 0.015 0-0.045 ng/ml Total Protein 7.8 6.4-8.2 gm/dl Albumin 3.1 3.4-5.0 gm/dl Hepatitis C Antibody Screen NEG NEG Bedside Lactic Acid Venous 1.16 0.90-1.70 mmol/L Urine Color YELLOW Urine Appearance CLEAR CLEAR Urine pH 5.0 4.5-7.5 Urine Specific [place] 1.004 1.000-1.030 Urine Protein NEG NEG Urine Glucose (UA) NEG NEG Urine Ketones NEG NEG Urine Occult Blood NEG NEG Urine Nitrite NEG NEG Urine Bilirubin NEG NEG Urine Urobilinogen NEG NEG Urine Leukocyte Esterase SMALL NEG Urine WBC (Auto) 5-10 0-5 /hpf Urine RBC (Auto) 10-30 0-4 /hpf Urine Hyaline Casts (Auto) 0 0-5 /lpf Urine Epithelial Cells (Auto) >30 0-5 /lpf Urine Bacteria (Auto) 2+ NEG Test 08/31/16 18:39 09/01/16 05:04 09/01/16 07:25 Range/Units Arterial Blood pH 7.40 7.39 7.35-7.45 Arterial Blood Partial Pressure CO2 82 81 35-46 mmHg Arterial Blood Partial Pressure O2 103 84 80-95 mm/Hg Arterial Blood HCO3 49 48 19-24 mmol/L Arterial Blood Oxygen Saturation 96.6 94.8 90-95 % Arterial Blood Base Excess 20.5 19.4 -9-1.8 mEq/L Arterial Blood Gas Delivery 40% 4L Alvaro Test POS POS POS White Blood Count 14.81 4.8-10.8 K/uL Red Blood Count 3.23 4.2-5.4 M/uL Hemoglobin 10.2 12.0-16.0 g/dL Hematocrit 32.7 37-47 % Mean Corpuscular Volume 101.2 80-100 fL Mean Corpuscular Hemoglobin 31.6 25-34 pg Mean Corpuscular Hemoglobin Concent 31.2 32-36 g/dl Platelet Count 205 130-400 K/uL Mean Platelet Volume 9.6 7.4-10.4 fL Neutrophils (%) (Auto) 93.1 % Lymphocytes (%) (Auto) 5.6 % Monocytes (%) (Auto) 0.8 % Eosinophils (%) (Auto) 0.1 % Basophils (%) (Auto) 0.1 % Neutrophils # (Auto) 13.79 1.4-6.5 K/uL Lymphocytes # (Auto) 0.83 1.2-3.4 K/uL Monocytes # (Auto) 0.12 0.11-0.59 K/uL Eosinophils # (Auto) 0.01 0-0.5 K/uL Basophils # (Auto) 0.01 0-0.2 K/uL RDW Standard Deviation 52.5 36.4-46.3 fL RDW Coefficient of Variation 14.2 11.5-14.5 % Immature Granulocyte % (Auto) 0.3 % Immature Granulocyte # (Auto) 0.05 0.00-0.02 K/uL Sodium Level 139 136-145 mmol/L Potassium Level 4.1 3.5-5.1 mmol/L Chloride Level 88 98-107 mmol/L Carbon Dioxide Level 47 21-32 mmol/L Anion Gap 4.0 3-11 mmol/L Blood Urea Nitrogen 47 7-18 mg/dl Creatinine 1.50 0.60-1.20 mg/dl Est Creatinine Clear Calc Drug Dose 45.8 ml/min Estimated GFR () 41.1 Estimated GFR (Non- 35.4 BUN/Creatinine Ratio 31.5 10-20 Random Glucose 153 70-99 mg/dl Calcium Level 9.4 8.5-10.1 mg/dl Magnesium Level 1.6 1.8-2.4 mg/dl Microbiology Results 08/31/16 Urine Culture - Preliminary, Resulted Gram Negative Bacilli Diagnostic Radiology CXR (08/31/16) hilar fullness with gabe-bronchial cuffing, no focal infiltrates EKG Normal sinus rhythm and incomplete bundle branch block Impression Assessment and Plan 65-year-old female with morbid obesity acute on chronic respiratory insufficiency: #1 Hypoxia: hypoxia most likely COPD, obesity hypoventilation, diastolic heart failure. COPD: The Severity of her patient's COPD is unknown at this time as she has never had a pulmonary function test. She has had a prolonged history of smoking with 50+ pack years and chronic CO2 retention. Suggest we continue current medical regimen but will quickly tapered down on steroids. Patient should be continued on her Advair inhaler but at this time we'll have to reexamine to see if she can perform proper technique. If she cannot will discontinue inhalers and only use nebulizers. SIMONA/obesity hypoventilation syndrome Previous PSG from [place] was reviewed and patient was noted to have severe SIMONA requiring BiPAP and 4 L nasal cannula. At this time patient is gained weight and her hypoventilation syndrome has progressed. Suggest we keep the patient on her BiPAP at 14/7 as much as tolerated. Cardiac: Patient with possible diastolic heart failure and history cor pulmonale. Suggest repeat echocardiogram 2) Lung Nodules in a high risk patient: (06/12/16) o7mm Solid: f/u non-contrast CT now 3 month window if stable repeat 06/2017 then 06/2018 o12mm RUL: f/u non-contrast CT now then annual surveillance for 3 years oThis is a high risk patient with a >8mm nodule which warrents a work-up/Bx but patient is not stable enough to under-go active interventions and monitoring is the best option at his time Decompensation: Also adding to patient's current status is her severe decompensation. Advanced Directives Living Will: none
--- NOTE | 2016-09-01 12:13 | Progress Note ---
Internal Med Progress Note Date of Service: Sep 01, 2016. Provider Documentation: SUBJECTIVE: The patient was seen and examined A little better today No SOB at rest OBJECTIVE: Vital Signs-as noted below Exam: General-No distress at rest Eyes-normal ENT-Normal Neck-Supple Lungs-Decreased breath sound bilaterally Heart-Regular ,no murmur Abdomen-Benign,no masses,bowel sound present Extremities-Trace Edema bilaterally Neuro-AAOx3 Lab data as noted below. ASSESSMENT & PLAN: Acute on chronic respiratory failure Exacerbation of chronic obstructive pulmonary disease Saturating fine on BiPAP. Started on IV Solu-Medrol, IV Levaquin, nebs, Appreciate Pulmonary input Advised BIPAP most of the time Obstructive sleep apnea, on BiPAP. BiPAP setting adjustment as per pulmonary. Urinary tract infection Gram Negative Bacilli On Levaquin. -continue for now Await sensitivity Chronic Right-sided heart failure with Preserved EF No acute CHF in CXR Continue her home Bumex and potassium supplements. Acute renal failure and chronic kidney disease. Baseline creatinine around 1.3 to 1.4, Will monitor PRP Creatinine 1.5 today Advised more fluid intake orally HTN and Hyperlipidemia Continue Cozaar and metoprolol and statin BP remains stable History of atrial fibrillation, Currently in sinus rhythm on metoprolol. Not on any Anticoagulation Gastroesophageal reflux disease, On proton pump inhibitors. Deep venous thrombosis prophylaxis, Heparin subQ, sequential compression devices. Disposition Awaited Vital Signs: Date Time Temp Pulse Resp B/P Pulse Ox O2 Delivery O2 Flow Rate FiO2 09/01/16 16:00 Room Air 09/01/16 15:39 71 90 4.0 09/01/16 15:33 71 18 90 BiPAP/CPAP 4.0 09/01/16 15:26 37.0 80 18 121/66 90 BiPAP 09/01/16 13:08 69 18 94 BiPAP/CPAP 4.0 09/01/16 13:06 69 94 4.0 09/01/16 12:20 36.5 81 23 112/47 95 Nasal Cannula 4.0 09/01/16 12:00 Room Air 09/01/16 08:00 Room Air 09/01/16 07:30 87 16 97 Nasal Cannula 4.0 09/01/16 05:11 76 09/01/16 04:00 36.6 78 24 143/71 98 Nasal Cannula 4.0 09/01/16 04:00 Nasal Cannula 4.0 09/01/16 03:45 73 16 Nasal Cannula 4.0 94 09/01/16 02:02 74 09/01/16 00:00 36.7 76 22 139/58 97 Nasal Cannula 4.0 09/01/16 00:00 Nasal Cannula 4.0 08/31/16 23:27 78 18 Nasal Cannula 4.0 96 08/31/16 22:21 88 08/31/16 20:51 36.8 81 24 139/67 92 Nasal Cannula 6.0 08/31/16 19:53 70 24 139/67 96 Room Air 08/31/16 19:29 76 08/31/16 18:32 72 125/60 99 BiPAP Lab Results: Results Past 24 Hours Test 08/31/16 18:39 09/01/16 05:04 09/01/16 07:25 Range/Units Arterial Blood pH 7.40 7.39 7.35-7.45 Arterial Blood Partial Pressure CO2 82 81 35-46 mmHg Arterial Blood Partial Pressure O2 103 84 80-95 mm/Hg Arterial Blood HCO3 49 48 19-24 mmol/L Arterial Blood Oxygen Saturation 96.6 94.8 90-95 % Arterial Blood Base Excess 20.5 19.4 -9-1.8 mEq/L Arterial Blood Gas Delivery 40% 4L Alvaro Test POS POS POS White Blood Count 14.81 4.8-10.8 K/uL Red Blood Count 3.23 4.2-5.4 M/uL Hemoglobin 10.2 12.0-16.0 g/dL Hematocrit 32.7 37-47 % Mean Corpuscular Volume 101.2 80-100 fL Mean Corpuscular Hemoglobin 31.6 25-34 pg Mean Corpuscular Hemoglobin Concent 31.2 32-36 g/dl Platelet Count 205 130-400 K/uL Mean Platelet Volume 9.6 7.4-10.4 fL Neutrophils (%) (Auto) 93.1 % Lymphocytes (%) (Auto) 5.6 % Monocytes (%) (Auto) 0.8 % Eosinophils (%) (Auto) 0.1 % Basophils (%) (Auto) 0.1 % Neutrophils # (Auto) 13.79 1.4-6.5 K/uL Lymphocytes # (Auto) 0.83 1.2-3.4 K/uL Monocytes # (Auto) 0.12 0.11-0.59 K/uL Eosinophils # (Auto) 0.01 0-0.5 K/uL Basophils # (Auto) 0.01 0-0.2 K/uL RDW Standard Deviation 52.5 36.4-46.3 fL RDW Coefficient of Variation 14.2 11.5-14.5 % Immature Granulocyte % (Auto) 0.3 % Immature Granulocyte # (Auto) 0.05 0.00-0.02 K/uL Sodium Level 139 136-145 mmol/L Potassium Level 4.1 3.5-5.1 mmol/L Chloride Level 88 98-107 mmol/L Carbon Dioxide Level 47 21-32 mmol/L Anion Gap 4.0 3-11 mmol/L Blood Urea Nitrogen 47 7-18 mg/dl Creatinine 1.50 0.60-1.20 mg/dl Est Creatinine Clear Calc Drug Dose 45.8 ml/min Estimated GFR () 41.1 Estimated GFR (Non- 35.4 BUN/Creatinine Ratio 31.5 10-20 Random Glucose 153 70-99 mg/dl Calcium Level 9.4 8.5-10.1 mg/dl Magnesium Level 1.6 1.8-2.4 mg/dl
[2016-09-01] MEDS: CEFTRIAXONE SOD INJ 2000 MG in DEXTROSE 5% 50ML IV SCH (15:35)
[2016-09-02] VITALS (13 sets, daily range): BP systolic 117–150; BP diastolic 65–75; PULSE 67–81; TEMP 36.3–37.1; O2SAT 86–98
[2016-09-02] MEDS: METHYLPREDNISOLONE IV 40 MG in SYRINGE 0 ML IV SCH ×3 (02:30→21:06)
[2016-09-02] MEDS: HEPARIN SOD 5000 UNIT/0.5 ML CARP SQ SCH ×3 (06:01→22:00)
[2016-09-02] MEDS: LEVOTHYROXINE 88 MCG TAB PO SCH (06:03)
[2016-09-02] MEDS: ALBUT/IPRATROP 3MG/0.5MG NEB 3 ML VIAL INH SCH ×4 (06:57→20:08)
[2016-09-02 07:11] LABS: HEMATOCRIT 33.3 % (37-47); MEAN CELL VOLUME 100.9 fL (80-100); MEAN CORPUSCULAR HEMOGLOBIN 31.5 pg (25-34); MEAN CORPUSCULAR HGB CONC 31.2 g/dl (32-36); PLATELET COUNT 226 K/uL (130-400); WHITE BLOOD COUNT 21.72 K/uL (4.8-10.8)
[2016-09-02 07:13] LABS: BASO ABS # 0.01 K/uL (0-0.2); COMPLETE YES; IG% 0.4 %; LYMPH % 5.3 %; LYMPH ABS # 1.16 K/uL (1.2-3.4); MONO % 1.9 %; NEUT % 92.4 %; STOMATOCYTE 2+
[2016-09-02] MEDS: FLUTICASONE/SALMETEROL (ADVAIR) 500/50 INH 14 PUFF INH SCH ×2 (07:56→21:03)
[2016-09-02] MEDS: LOSARTAN POTASSIUM 50 MG TAB PO SCH (07:56)
[2016-09-02] MEDS: GABAPENTIN 300 MG CAP PO SCH ×3 (07:56→21:04)
[2016-09-02] MEDS: CEROVITE ADV FORMULA TAB PO SCH (07:57)
[2016-09-02] MEDS: BUMETANIDE 1 MG TAB PO SCH ×2 (07:57→17:45)
[2016-09-02] MEDS: ASPIRIN 81 MG ECTAB PO SCH (07:57)
[2016-09-02] MEDS: ATORVASTATIN 20 MG TAB PO SCH (07:57)
[2016-09-02] MEDS: FERROUS SULFATE 325 MG TAB PO SCH (07:57)
[2016-09-02] MEDS: METOPROLOL SUCC 50MG EXT REL TAB PO SCH (07:57)
[2016-09-02] MEDS: PROPAFENONE HCL 150 MG TAB PO SCH ×3 (07:57→21:05)
[2016-09-02] MEDS: ALLOPURINOL 300 MG TAB PO SCH (07:57)
[2016-09-02 08:08] LABS: BUN/CREATININE RATIO 36.3 (10-20); CALCIUM 9.9 mg/dl (8.5-10.1); CREATININE 1.7 mg/dl (0.60-1.20); MAGNESIUM 2.1 mg/dl (1.8-2.4); POTASSIUM 4.5 mmol/L (3.5-5.1)
[2016-09-02] MEDS: LEVALBUTEROL 1.25MG/3ML NEB INH SCH (08:20)
[2016-09-02] MEDS: RANITIDINE HCL 150 MG TAB PO SCH ×2 (11:15→21:05)
--- NOTE | 2016-09-02 12:38 | Progress Note ---
Internal Med Progress Note Date of Service: Sep 02, 2016. Provider Documentation: SUBJECTIVE: The patient was seen and examined A little better today No SOB at rest Can not keep BIPAP all the time Denies any pain OBJECTIVE: Vital Signs-as noted below Exam: General-No distress at rest Eyes-normal ENT-Normal Neck-Supple Lungs-Decreased breath sound bilaterally Heart-Regular ,no murmur Abdomen-Benign,no masses,bowel sound present Extremities-Trace Edema bilaterally Neuro-AAOx3 Lab data as noted below. ASSESSMENT & PLAN: Acute on chronic respiratory failure Exacerbation of chronic obstructive pulmonary disease Saturating fine on BiPAP. Started on IV Solu-Medrol, IV Levaquin, nebs, Appreciate Pulmonary input Advised BIPAP most of the time Nebs round the clock Carbon dioxide level is improving Obstructive sleep apnea, on BiPAP. BiPAP setting adjustment as per pulmonary. Urinary tract infection Gram Negative Bacilli Levaquin discontinued On Ceftriaxone -continue for now Resistant to Quinolones Chronic Right-sided heart failure with Preserved EF No acute CHF in CXR Continue her home Bumex and potassium supplements. Acute renal failure and chronic kidney disease. Baseline creatinine around 1.3 to 1.4, Will monitor PRP Creatinine 1.5 today Advised more fluid intake orally Creatinine is a little worse today HTN and Hyperlipidemia Continue Cozaar and metoprolol and statin BP remains stable History of atrial fibrillation, Currently in sinus rhythm on metoprolol. Not on any Anticoagulation Gastroesophageal reflux disease, On proton pump inhibitors. Deep venous thrombosis prophylaxis, Heparin subQ, sequential compression devices. Disposition Likely discharge in a day or two Vital Signs: Date Time Temp Pulse Resp B/P Pulse Ox O2 Delivery O2 Flow Rate FiO2 09/02/16 12:00 36.6 67 18 117/74 94 Nasal Cannula 4.0 09/02/16 11:44 71 18 98 Nasal Cannula 4.0 09/02/16 08:00 Nasal Cannula 4.0 BiPAP 09/02/16 08:00 36.6 74 18 150/75 96 Nasal Cannula 4.0 09/02/16 06:59 67 18 86 BiPAP/CPAP 4.0 09/02/16 06:59 67 86 4.0 09/02/16 04:10 73 94 4.0 09/02/16 04:00 Nasal Cannula 4.0 09/02/16 03:47 36.3 69 22 136/65 90 BiPAP 4.0 09/02/16 00:15 36.7 69 18 129/68 90 BiPAP 4.0 09/02/16 00:01 Nasal Cannula 4.0 09/01/16 21:17 73 94 4.0 09/01/16 20:08 36.8 86 20 143/67 92 Nasal Cannula 4.0 09/01/16 20:00 Room Air 09/01/16 19:20 73 18 94 BiPAP/CPAP 4.0 09/01/16 16:00 Room Air 09/01/16 15:39 71 90 4.0 09/01/16 15:33 71 18 90 BiPAP/CPAP 4.0 09/01/16 15:26 37.0 80 18 121/66 90 BiPAP 09/01/16 13:08 69 18 94 BiPAP/CPAP 4.0 09/01/16 13:06 69 94 4.0 Lab Results: Results Past 24 Hours Test 09/02/16 05:57 Range/Units White Blood Count 21.72 4.8-10.8 K/uL Red Blood Count 3.30 4.2-5.4 M/uL Hemoglobin 10.4 12.0-16.0 g/dL Hematocrit 33.3 37-47 % Mean Corpuscular Volume 100.9 80-100 fL Mean Corpuscular Hemoglobin 31.5 25-34 pg Mean Corpuscular Hemoglobin Concent 31.2 32-36 g/dl Platelet Count 226 130-400 K/uL Mean Platelet Volume 10.0 7.4-10.4 fL Neutrophils (%) (Auto) 92.4 % Lymphocytes (%) (Auto) 5.3 % Monocytes (%) (Auto) 1.9 % Eosinophils (%) (Auto) 0.0 % Basophils (%) (Auto) 0.0 % Neutrophils # (Auto) 20.05 1.4-6.5 K/uL Lymphocytes # (Auto) 1.16 1.2-3.4 K/uL Monocytes # (Auto) 0.42 0.11-0.59 K/uL Eosinophils # (Auto) 0.00 0-0.5 K/uL Basophils # (Auto) 0.01 0-0.2 K/uL RDW Standard Deviation 52.7 36.4-46.3 fL RDW Coefficient of Variation 14.4 11.5-14.5 % Immature Granulocyte % (Auto) 0.4 % Immature Granulocyte # (Auto) 0.08 0.00-0.02 K/uL Basophilic Stippling 1+ Stomatocytes 2+ Sodium Level 137 136-145 mmol/L Potassium Level 4.5 3.5-5.1 mmol/L Chloride Level 86 98-107 mmol/L Carbon Dioxide Level 44 21-32 mmol/L Anion Gap 7.0 3-11 mmol/L Blood Urea Nitrogen 62 7-18 mg/dl Creatinine 1.70 0.60-1.20 mg/dl Est Creatinine Clear Calc Drug Dose 41.1 ml/min Estimated GFR () 35.3 Estimated GFR (Non- 30.5 BUN/Creatinine Ratio 36.3 10-20 Random Glucose 180 70-99 mg/dl Calcium Level 9.9 8.5-10.1 mg/dl Magnesium Level 2.1 1.8-2.4 mg/dl
[2016-09-02] MEDS: CEFTRIAXONE SOD INJ 2000 MG in DEXTROSE 5% 50ML IV SCH (14:16)
[2016-09-02] MEDS ORDERED: LEVOFLOXACIN / D5W 750 MG in PREMIXED IN D5W 150 ML IV SCH (17:00)
--- NOTE | 2016-09-02 17:23 | Pulmonology Progress Note ---
Pulmonary Progress Note Date of Service Sep 02, 2016. Attending Harpal Jimenez Subjective Patient notes compliance with her BiPAP and also decreasing shortness of breath Objective Patient is able to complete full sentences today not using accessory muscles nor which tachypnea Vital signs: Reviewed and stable on 4 L nasal cannula Respiratory: Decreased breath sounds bilaterally no acute changes Cardiac: S1-S2 distant heart sounds I'm unable to auscultate murmurs rubs or gallops Skin: Stage I decubitus ulcer buttock Labs: Reviewed urine: Escherichia coli WBC count: 22,000 Assessment & Plan 66-year-old female with acute on chronic respiratory insufficiency: #1 hypoxia: Patient's hypoxemia is multifactorial with COPD, obesity hypoventilation, diastolic heart failure: COPD: Patient appears to be improving/stabilizing we'll decrease Solu-Medrol to every 12 hours otherwise continue medical regimen SIMONA/obesity hypoventilation syndrome: Continue BiPAP support with 4 L oxygen support #2 lung nodule: High risk patient initial CAT scan 06/12/2016 7 cm nodule: This time perform noncontrast CT if stable follow-up 06/2017 then 06/2018 12 mm right upper lobe groundglass nodule follow-up CT during this hospitalization and follow-up yearly for 3 years Standard: Once again standard of care would imply we initiate more aggressive workup of the patient's 12 mm right upper lobe nodule but as she is unstable we're unable to perform more aggressive care at this time. Data Medications: Current Inpatient Medications Medications (Trade) Dose Ordered Sig/Rupinder Route Start Time Stop Time Status Last Admin Dose Admin Heparin Sodium (Porcine) (Heparin Sq 5000 Unit/0.5ml) 5,000 unit Q8 SQ 08/31/16 22:00 09/30/16 21:59 09/02/16 14:20 5,000 UNIT Acetaminophen (Tylenol Tab) 650 mg Q4H PRN PO 08/31/16 17:30 09/30/16 17:29 Al Hydrox/Mg Hydrox/Simethicone (Maalox Max Susp) 15 ml Q4H PRN PO 08/31/16 17:30 09/30/16 17:29 Magnesium Hydroxide (Milk Of Magnesia Susp) 30 ml Q12H PRN PO 08/31/16 17:30 09/30/16 17:29 Ondansetron HCl (Zofran Inj) 4 mg Q6H PRN IV 08/31/16 17:30 09/30/16 17:29 Nitroglycerin (Nitrostat Tab) 0.4 mg UD PRN SL 08/31/16 17:30 09/30/16 17:29 Allopurinol (Zyloprim Tab) 300 mg DAILY PO 09/01/16 09:00 10/01/16 08:59 09/02/16 07:57 300 MG Aspirin (Ecotrin Tab) 81 mg DAILY PO 09/01/16 09:00 10/01/16 08:59 09/02/16 07:57 81 MG Atorvastatin Calcium (Lipitor Tab) 20 mg DAILY PO 09/01/16 09:00 10/01/16 08:59 09/02/16 07:57 20 MG Bumetanide (Bumex Tab) 1 mg BID17 PO 08/31/16 21:00 09/30/16 20:59 09/02/16 07:57 1 MG Gabapentin (Neurontin Cap) 300 mg TID PO 08/31/16 21:00 09/30/16 20:59 09/02/16 14:16 300 MG Levothyroxine Sodium (Synthroid Tab) 88 mcg DAILYBB PO 09/01/16 06:59 10/01/16 06:59 09/02/16 06:03 88 MCG Losartan Potassium (coZAAR TAB) 50 mg QAM PO 09/01/16 09:00 10/01/16 08:59 09/02/16 07:56 50 MG Metoprolol Succinate (Toprol Xl Tab) 50 mg DAILY PO 09/01/16 09:00 10/01/16 08:59 09/02/16 07:57 50 MG Multivitamins/ Minerals (Multivitamin W/ Minerals Tab) 1 tab DAILY PO 09/01/16 09:00 10/01/16 08:59 09/02/16 07:57 1 TAB Propafenone HCl (Rythmol Tab) 150 mg TID PO 08/31/16 21:00 09/30/16 20:59 09/02/16 14:17 150 MG Ranitidine HCl (zANTac TAB) 150 mg BID PO 08/31/16 21:00 09/30/16 20:59 09/02/16 11:15 150 MG Ferrous Sulfate (Feosol Tab) 325 mg DAILY PO 09/01/16 09:00 10/01/16 08:59 09/02/16 07:57 325 MG Levalbuterol 0.63 mg 0.63 mg Q2R PRN INH 08/31/16 17:30 09/30/16 17:29 Methylprednisolone Sodium Succinate/ Syringe (Solu-Medrol IV/ Syringe) 0.64 ml @ 1.5 mls/min Q8H IV 09/01/16 02:00 10/01/16 01:59 09/02/16 11:16 1.5 MLS/MIN Salmeterol Xinafoate/ Fluticasone (Advair Diskus 500/50 Inh) 1 puff BID INH 08/31/16 21:00 09/30/16 20:59 09/02/16 07:56 1 PUFF Potassium Chloride (Klor-Con Tab) 20 meq Q2D@0900 PO 09/01/16 09:00 10/01/16 08:59 09/01/16 07:25 20 MEQ Albuterol/ Ipratropium 3 ml 3 ml QIDR INH 09/01/16 08:00 10/01/16 07:59 09/02/16 15:02 3 ML Ceftriaxone Sodium/Dextrose (Rocephin Inj/D5 50ml) 70 ml @ 140 mls/hr Q24H IV 09/01/16 15:00 09/08/16 14:59 09/02/16 14:16 140 MLS/HR I & O: 24-Hour Column 09/02/16 07:59 Intake Total 1010 ml Output Total 1000 ml Balance 10 ml Vital Signs: Date Time Temp Pulse Resp B/P Pulse Ox O2 Delivery O2 Flow Rate FiO2 09/02/16 15:45 36.8 71 16 121/70 94 Nasal Cannula 4.0 09/02/16 15:03 71 18 98 Nasal Cannula 4.0 09/02/16 12:00 36.6 67 18 117/74 94 Nasal Cannula 4.0 09/02/16 12:00 Nasal Cannula 4.0 BiPAP 09/02/16 11:44 71 18 98 Nasal Cannula 4.0 09/02/16 08:00 Nasal Cannula 4.0 BiPAP 09/02/16 08:00 36.6 74 18 150/75 96 Nasal Cannula 4.0 09/02/16 06:59 67 18 86 BiPAP/CPAP 4.0 09/02/16 06:59 67 86 4.0 09/02/16 04:10 73 94 4.0 09/02/16 04:00 Nasal Cannula 4.0 09/02/16 03:47 36.3 69 22 136/65 90 BiPAP 4.0 09/02/16 00:15 36.7 69 18 129/68 90 BiPAP 4.0 09/02/16 00:01 Nasal Cannula 4.0 09/01/16 21:17 73 94 4.0 09/01/16 20:08 36.8 86 20 143/67 92 Nasal Cannula 4.0 09/01/16 20:00 Room Air 09/01/16 19:20 73 18 94 BiPAP/CPAP 4.0 Laboratory Results: Last 24 Hours Test 09/02/16 05:57 White Blood Count 21.72 K/uL Red Blood Count 3.30 M/uL Hemoglobin 10.4 g/dL Hematocrit 33.3 % Mean Corpuscular Volume 100.9 fL Mean Corpuscular Hemoglobin 31.5 pg Mean Corpuscular Hemoglobin Concent 31.2 g/dl Platelet Count 226 K/uL Mean Platelet Volume 10.0 fL Neutrophils (%) (Auto) 92.4 % Lymphocytes (%) (Auto) 5.3 % Monocytes (%) (Auto) 1.9 % Eosinophils (%) (Auto) 0.0 % Basophils (%) (Auto) 0.0 % Neutrophils # (Auto) 20.05 K/uL Lymphocytes # (Auto) 1.16 K/uL Monocytes # (Auto) 0.42 K/uL Eosinophils # (Auto) 0.00 K/uL Basophils # (Auto) 0.01 K/uL RDW Standard Deviation 52.7 fL RDW Coefficient of Variation 14.4 % Immature Granulocyte % (Auto) 0.4 % Immature Granulocyte # (Auto) 0.08 K/uL Basophilic Stippling 1+ Stomatocytes 2+ Sodium Level 137 mmol/L Potassium Level 4.5 mmol/L Chloride Level 86 mmol/L Carbon Dioxide Level 44 mmol/L Anion Gap 7.0 mmol/L Blood Urea Nitrogen 62 mg/dl Creatinine 1.70 mg/dl Est Creatinine Clear Calc Drug Dose 41.1 ml/min Estimated GFR () 35.3 Estimated GFR (Non- 30.5 BUN/Creatinine Ratio 36.3 Random Glucose 180 mg/dl Calcium Level 9.9 mg/dl Magnesium Level 2.1 mg/dl
--- NOTE | 2016-09-02 18:53 | DIAGNOSTIC IMAGING REPORT ---
CHEST CT WITHOUT CONTRAST CT DOSE: 836.88 mGycm HISTORY: follow-up pulmonary nodule TECHNIQUE: Multiaxial CT images of the chest were performed without contrast. COMPARISON: Chest CT 06/12/2016. FINDINGS: No pneumothorax. Emphysema. The anterior right upper lobe groundglass nodule has resolved in the interval. Stable 6 mm nodule within the right upper lobe on image 69 of 306. Therefore, this is likely benign. Additional tree-in-bud nodular densities within the periphery of the right upper lobe have essentially resolved. Narrowing of the trachea and bronchi may be due to the expiratory phase of the study. Bilateral lower lobe linear densities likely represent subsegmental atelectasis or scarring. This is similar to the prior study. T6 vertebroplasty is again noted. Minimal superimposed compression deformity at T11 is likely old. Old, healed right-sided rib fractures. There is a right shoulder prosthesis. Limited views of the upper abdomen demonstrate a normal liver and spleen. Stable bilateral adrenal gland nodules. The heart is borderline enlarged. No significant mediastinal or hilar lymphadenopathy. Normal caliber thoracic aorta. IMPRESSION: 1. Interval resolution of the right upper lobe groundglass nodule. 2. Stable benign 6 mm right upper lobe pulmonary nodule. 3. Bibasilar linear densities remain unchanged and likely represent scarring or atelectasis. No new focal lung consolidations to suggest pneumonia. 4. Mild emphysema. 5. Narrowing of the trachea and bronchi may be due to the expiratory phase of the study. Electronically signed by: Henry Bourne M.D. 09/02/2016 6:51 PM Dictated Date/Time: 09/02/2016 6:43 PM
[2016-09-03] VITALS (9 sets, daily range): BP systolic 128–138; BP diastolic 52–73; PULSE 59–81; TEMP 36.6–36.8; O2SAT 92–100
[2016-09-03] MEDS: LEVOTHYROXINE 88 MCG TAB PO SCH (06:24)
[2016-09-03] MEDS: HEPARIN SOD 5000 UNIT/0.5 ML CARP SQ SCH ×3 (06:27→22:32)
[2016-09-03 06:50] LABS: COMPLETE YES; HEMATOCRIT 33.6 % (37-47); IG% 0.2 %; LYMPH % 5.6 %; LYMPH ABS # 1.15 K/uL (1.2-3.4); MEAN CELL VOLUME 101.2 fL (80-100); MEAN CORPUSCULAR HGB CONC 30.7 g/dl (32-36); MEAN PLATELET VOLUME 9.9 fL (7.4-10.4); MONO % 1.2 %; PLATELET COUNT 209 K/uL (130-400); RED BLOOD COUNT 3.32 M/uL (4.2-5.4); WHITE BLOOD COUNT 20.36 K/uL (4.8-10.8)
[2016-09-03] MEDS: ALBUT/IPRATROP 3MG/0.5MG NEB 3 ML VIAL INH SCH ×4 (07:23→19:30)
[2016-09-03 07:26] LABS: BUN/CREATININE RATIO 40.1 (10-20); CALCIUM 9.8 mg/dl (8.5-10.1); CREATININE 1.8 mg/dl (0.60-1.20); MAGNESIUM 2.2 mg/dl (1.8-2.4); POTASSIUM 4.6 mmol/L (3.5-5.1)
[2016-09-03] MEDS: CEROVITE ADV FORMULA TAB PO SCH (07:58)
[2016-09-03] MEDS: FLUTICASONE/SALMETEROL (ADVAIR) 500/50 INH 14 PUFF INH SCH ×2 (07:58→21:10)
[2016-09-03] MEDS: PROPAFENONE HCL 150 MG TAB PO SCH ×3 (07:59→21:11)
[2016-09-03] MEDS: METOPROLOL SUCC 50MG EXT REL TAB PO SCH (07:59)
[2016-09-03] MEDS: GABAPENTIN 300 MG CAP PO SCH ×3 (07:59→21:10)
[2016-09-03] MEDS: ALLOPURINOL 300 MG TAB PO SCH (07:59)
[2016-09-03] MEDS: ATORVASTATIN 20 MG TAB PO SCH (07:59)
[2016-09-03] MEDS: ASPIRIN 81 MG ECTAB PO SCH (07:59)
[2016-09-03] MEDS: FERROUS SULFATE 325 MG TAB PO SCH (07:59)
[2016-09-03] MEDS: RANITIDINE HCL 150 MG TAB PO SCH ×2 (07:59→21:10)
[2016-09-03] MEDS: LOSARTAN POTASSIUM 50 MG TAB PO SCH (08:00)
[2016-09-03] MEDS: POTASSIUM CHLORIDE 20 MEQ TABCR PO SCH (08:00)
[2016-09-03] MEDS: BUMETANIDE 1 MG TAB PO SCH ×2 (08:00→17:07)
[2016-09-03] MEDS: METHYLPREDNISOLONE IV 40 MG in SYRINGE 0 ML IV SCH ×2 (10:49→22:31)
--- NOTE | 2016-09-03 13:09 | Progress Note ---
Internal Med Progress Note Date of Service: Sep 03, 2016. Provider Documentation: SUBJECTIVE: The patient was seen and examined No SOB at rest Much better today Denies any complaints OBJECTIVE: Vital Signs-as noted below Exam: General-No distress at rest OOB in a chair Eyes-normal ENT-Normal Neck-Supple Lungs-Decreased breath sound bilaterally Heart-Regular ,no murmur Abdomen-Benign,no masses,bowel sound present Extremities-Trace Edema bilaterally Neuro-AAOx3 Lab data as noted below. ASSESSMENT & PLAN: Acute on chronic respiratory failure Exacerbation of chronic obstructive pulmonary disease Saturating fine on BiPAP. Started on IV Solu-Medrol, IV Levaquin, nebs, Appreciate Pulmonary input Advised BIPAP most of the time Nebs round the clock Carbon dioxide level is stable Steroid dose is reduced today Obstructive sleep apnea, on BiPAP. BiPAP setting adjustment as per pulmonary. Urinary tract infection Gram Negative Bacilli Levaquin discontinued On Ceftriaxone -continue for now Resistant to Quinolones WCC is elevated -likely due to steroid Chronic Right-sided heart failure with Preserved EF No acute CHF in CXR Continue her home Bumex and potassium supplements. Acute renal failure and chronic kidney disease. Baseline creatinine around 1.3 to 1.4, Will monitor PRP Creatinine 1.5 today Advised more fluid intake orally Creatinine is a little worse today HTN and Hyperlipidemia Continue Cozaar and metoprolol and statin BP remains stable History of atrial fibrillation, Currently in sinus rhythm on metoprolol. Not on any Anticoagulation Gastroesophageal reflux disease, On proton pump inhibitors. Deep venous thrombosis prophylaxis, Heparin subQ, sequential compression devices. Disposition Likely discharge in a day or two Vital Signs: Date Time Temp Pulse Resp B/P Pulse Ox O2 Delivery O2 Flow Rate FiO2 09/03/16 12:00 Nasal Cannula 4.0 BiPAP 09/03/16 12:00 36.8 62 20 137/52 100 09/03/16 11:10 81 16 98 Nasal Cannula 4.0 09/03/16 08:00 Nasal Cannula 4.0 BiPAP 09/03/16 07:59 36.6 72 20 128/69 93 BiPAP 09/03/16 07:23 59 16 93 BiPAP/CPAP 4.0 09/03/16 04:21 36.7 66 20 138/73 92 09/03/16 04:00 Nasal Cannula 4.0 09/03/16 00:01 Nasal Cannula 4.0 09/02/16 23:55 37.1 67 18 138/73 95 09/02/16 23:35 75 96 4.0 09/02/16 20:08 81 16 98 Nasal Cannula 4.0 09/02/16 20:00 Nasal Cannula 4.0 09/02/16 19:29 37.0 78 18 119/70 95 Nasal Cannula 4.0 09/02/16 16:00 Nasal Cannula 4.0 BiPAP 09/02/16 15:45 36.8 71 16 121/70 94 Nasal Cannula 4.0 09/02/16 15:03 71 18 98 Nasal Cannula 4.0 Lab Results: Results Past 24 Hours Test 09/03/16 06:20 Range/Units White Blood Count 20.36 4.8-10.8 K/uL Red Blood Count 3.32 4.2-5.4 M/uL Hemoglobin 10.3 12.0-16.0 g/dL Hematocrit 33.6 37-47 % Mean Corpuscular Volume 101.2 80-100 fL Mean Corpuscular Hemoglobin 31.0 25-34 pg Mean Corpuscular Hemoglobin Concent 30.7 32-36 g/dl Platelet Count 209 130-400 K/uL Mean Platelet Volume 9.9 7.4-10.4 fL Neutrophils (%) (Auto) 93.0 % Lymphocytes (%) (Auto) 5.6 % Monocytes (%) (Auto) 1.2 % Eosinophils (%) (Auto) 0.0 % Basophils (%) (Auto) 0.0 % Neutrophils # (Auto) 18.91 1.4-6.5 K/uL Lymphocytes # (Auto) 1.15 1.2-3.4 K/uL Monocytes # (Auto) 0.25 0.11-0.59 K/uL Eosinophils # (Auto) 0.00 0-0.5 K/uL Basophils # (Auto) 0.00 0-0.2 K/uL RDW Standard Deviation 52.6 36.4-46.3 fL RDW Coefficient of Variation 14.3 11.5-14.5 % Immature Granulocyte % (Auto) 0.2 % Immature Granulocyte # (Auto) 0.05 0.00-0.02 K/uL Sodium Level 140 136-145 mmol/L Potassium Level 4.6 3.5-5.1 mmol/L Chloride Level 90 98-107 mmol/L Carbon Dioxide Level 45 21-32 mmol/L Anion Gap 5.0 3-11 mmol/L Blood Urea Nitrogen 72 7-18 mg/dl Creatinine 1.80 0.60-1.20 mg/dl Est Creatinine Clear Calc Drug Dose 38.6 ml/min Estimated GFR () 32.9 Estimated GFR (Non- 28.4 BUN/Creatinine Ratio 40.1 10-20 Random Glucose 181 70-99 mg/dl Calcium Level 9.8 8.5-10.1 mg/dl Magnesium Level 2.2 1.8-2.4 mg/dl
[2016-09-03] MEDS: CEFTRIAXONE SOD INJ 2000 MG in DEXTROSE 5% 50ML IV SCH (17:06)
[2016-09-04] VITALS (8 sets, daily range): BP systolic 117–128; BP diastolic 57–70; PULSE 64–81; TEMP 36.6–37; O2SAT 91–96
[2016-09-04] MEDS: LEVOTHYROXINE 88 MCG TAB PO SCH (06:04)
[2016-09-04] MEDS: HEPARIN SOD 5000 UNIT/0.5 ML CARP SQ SCH ×2 (06:05→14:13)
[2016-09-04] MEDS: ALBUT/IPRATROP 3MG/0.5MG NEB 3 ML VIAL INH SCH ×3 (07:05→15:00)
[2016-09-04] MEDS: FLUTICASONE/SALMETEROL (ADVAIR) 500/50 INH 14 PUFF INH SCH (08:04)
[2016-09-04] MEDS: ASPIRIN 81 MG ECTAB PO SCH (08:04)
[2016-09-04] MEDS: ALLOPURINOL 300 MG TAB PO SCH (08:04)
[2016-09-04] MEDS: FERROUS SULFATE 325 MG TAB PO SCH (08:05)
[2016-09-04] MEDS: METOPROLOL SUCC 50MG EXT REL TAB PO SCH (08:05)
[2016-09-04] MEDS: PROPAFENONE HCL 150 MG TAB PO SCH ×2 (08:05→14:00)
[2016-09-04] MEDS: ATORVASTATIN 20 MG TAB PO SCH (08:05)
[2016-09-04] MEDS: LOSARTAN POTASSIUM 50 MG TAB PO SCH (08:06)
[2016-09-04] MEDS: BUMETANIDE 1 MG TAB PO SCH ×2 (08:06→17:18)
[2016-09-04] MEDS: GABAPENTIN 300 MG CAP PO SCH ×2 (08:06→13:56)
[2016-09-04] MEDS: RANITIDINE HCL 150 MG TAB PO SCH (08:08)
[2016-09-04] MEDS: CEROVITE ADV FORMULA TAB PO SCH (08:08)
[2016-09-04] MEDS ORDERED: NURSING DECISION MEDICATION ORDER SCH (09:30)
[2016-09-04] MEDS ORDERED: MICONAZOLE NITRATE POWDER 43 GM EXT PRN (09:45)
[2016-09-04] MEDS: METHYLPREDNISOLONE IV 40 MG in SYRINGE 0 ML IV SCH (10:12)
--- NOTE | 2016-09-04 12:45 | PROGRESS NOTE ---
DATE: 09/04/2016 PROBLEM LIST: Includes 1. Chronic obstructive pulmonary disease exacerbation. 2. Obesity hypoventilation syndrome. 3. Diastolic heart failure. 4. Lung nodule. SUBJECTIVE: The patient reports that she is doing well. She is using her BiPAP at night. She feels it is helpful for her. She states that she is breathing well. She is not having any significant difficulty at this time. She has had a little bit of a cough from time to time but it is nonproductive. No wheezing, no chest heaviness or tightness. She states that she is almost back to her baseline. She denies any other concerns or problems. No GI symptoms. No abdominal pain, no nausea or vomiting, no indigestion or heartburn, difficulty with her bowels, and difficulty voiding. She does report that she needs a new hospital bed at home because she is unable to lay flat and sleep. OBJECTIVE: GENERAL: The patient is a 66-year-old morbidly obese white female in no acute distress. She is alert and oriented x3. Mood is good. Affect is good. VITAL SIGNS: Temp 36.6, pulse 68, respirations 16, blood pressure is 120/70, pulse ox 96% on 2 liters. HEENT: Normocephalic, atraumatic. Pupils equal, round and reactive to light and accommodation. Extraocular movements are intact. Hyrum moist gingival and buccal mucosa. NECK: Supple. No mass, no adenopathy, no bruit. CHEST: Diminished. She does have a few scattered wheezes. No rales or rhonchi. CARDIOVASCULAR: Regular rate and rhythm. No murmurs, gallops or rubs. ABDOMEN: Soft, nontender. No guarding, rigidity or organomegaly. EXTREMITIES: No erythema or edema. NEUROLOGIC: Cranial nerves II through XII are intact. No focal deficit noted. LABORATORY DATA: For today are pending. No new radiologic data. IMPRESSION: This is a 66-year-old female with acute on chronic respiratory insufficiency who had some hypoxia secondary to her chronic obstructive pulmonary disease exacerbation. At this time she is doing well with her oxygen and is back down to her baseline level at 2 liters per minute. According to the patient she is being discharged home today. At this point I would recommend a slow prednisone taper starting at 40 mg and tapering by 5 mg every 2 days. I would also like for the patient to have a follow in the office in 1-2 weeks. I did contact our office about getting the patient set up for a replacement or repair of hospital bed. At this point, will continue to follow as an outpatient as the patient is familiar to us from several years ago.
--- NOTE | 2016-09-04 12:54 | Progress Note ---
Internal Med Progress Note Date of Service: Sep 04, 2016. Provider Documentation: SUBJECTIVE: The patient was seen and examined No SOB at rest Much better today Denies any complaints Wants to go home today .Going to keep BIPAP as long as possible at home OBJECTIVE: Vital Signs-as noted below Exam: General-No distress at rest OOB in a chair Eyes-normal ENT-Normal Neck-Supple Lungs-Decreased breath sound bilaterally No crackles Heart-Regular ,no murmur Abdomen-Benign,no masses,bowel sound present Extremities-Trace Edema bilaterally Neuro-AAOx3 Lab data as noted below. ASSESSMENT & PLAN: Acute on chronic respiratory failure Exacerbation of chronic obstructive pulmonary disease Saturating fine on BiPAP. Started on IV Solu-Medrol, IV Levaquin, nebs, Appreciate Pulmonary input Advised BIPAP most of the time Nebs round the clock Carbon dioxide level is high but stable Steroid dose is reduced and will be tapered as advised Obstructive sleep apnea, on BiPAP. BiPAP setting adjustment as per pulmonary. Advised to wear BIPAP as long as possible -all the time at night and maximum tiome possible during the day Conveyed to Daughter in room Urinary tract infection Gram Negative Bacilli Levaquin discontinued On Ceftriaxone -continue for now Resistant to Quinolones WCC is elevated -likely due to steroid Recheck WCC -if decreased will discharge home Chronic Right-sided heart failure with Preserved EF No acute CHF in CXR Continue her home Bumex and potassium supplements. Acute renal failure and chronic kidney disease. Baseline creatinine around 1.3 to 1.4, Will monitor PRP Creatinine 1.5 today Advised more fluid intake orally Creatinine is a little worse today HTN and Hyperlipidemia Continue Cozaar and metoprolol and statin BP remains stable History of atrial fibrillation, Currently in sinus rhythm on metoprolol. Not on any Anticoagulation Gastroesophageal reflux disease, On proton pump inhibitors. Deep venous thrombosis prophylaxis, Heparin subQ, sequential compression devices. Disposition Likely discharge today Discussed with Dr Jimenez Vital Signs: Date Time Temp Pulse Resp B/P Pulse Ox O2 Delivery O2 Flow Rate FiO2 09/04/16 08:48 96 Nasal Cannula 2.0 09/04/16 08:00 Nasal Cannula 4.0 09/04/16 08:00 36.6 68 16 120/70 96 Nasal Cannula 2.0 09/04/16 07:06 81 18 96 BiPAP/CPAP 4.0 09/04/16 00:10 CPAP 09/04/16 00:08 36.8 64 16 117/69 96 CPAP 09/03/16 23:00 63 92 4.0 09/03/16 19:30 81 18 95 Nasal Cannula 4.0 09/03/16 15:50 Nasal Cannula 4.0 09/03/16 15:32 36.7 65 16 130/73 95 Nasal Cannula 4.0 09/03/16 14:56 36.8 62 20 100 4.0 Lab Results: Results Past 24 Hours Test 09/04/16 11:21 Range/Units
[2016-09-04 13:01] LABS: HEMATOCRIT 36.6 % (37-47); MEAN CORPUSCULAR HEMOGLOBIN 31.7 pg (25-34); MEAN CORPUSCULAR HGB CONC 31.7 g/dl (32-36); MEAN PLATELET VOLUME 9.8 fL (7.4-10.4); PLATELET COUNT 235 K/uL (130-400); RED BLOOD COUNT 3.66 M/uL (4.2-5.4); WHITE BLOOD COUNT 19.25 K/uL (4.8-10.8)
[2016-09-04 13:29] LABS: CALCIUM 9.8 mg/dl (8.5-10.1); CREATININE 1.9 mg/dl (0.60-1.20); MAGNESIUM 2.3 mg/dl (1.8-2.4); PHOSPHORUS 3.5 mg/dl (2.5-4.9); POTASSIUM 4.2 mmol/L (3.5-5.1)
--- NOTE | 2016-09-04 13:48 | Pulmonology Progress Note ---
Pulmonary Progress Note Date of Service Sep 04, 2016. 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 4L nasal cannula I/Os: -1.5L (total: 2.6L) Medications: #1 methylprednisolone 40 mg IV every 12--------- attempt decrease/switched to by mouth #2 ceftriaxone 2 g IV every 12 (09/01/16-day 4) #3 DuoNeb 4 times per day #4 Advair disc 500/50 twice a day questions patients ability #5 Xopenex every 2 hours when necessary shortness of breath WBC: [id number] Carbon dioxide: 45 The urine/creatinine: 72/1.80 (the creatinine is rising most likely patient is at dry weight possibly decreasing preload/flow to the kidneys) Microbiology: Urine (08/31/2016) Escherichia coli Urine (05/29/16) Escherichia coli Urine (06/01/13) Escherichia coli/enterococcus facing (VRE) Expectorated sputum (03/09/13) Pseudomonas Urine(10/23/2012) Serratia marcescens CT thorax 09/02/2016: Bilateral posterior lower lobe pleural thickening with associated bronchiectasis EDAC Assessment & Plan 66-year-old female with acute on chronic respiratory insufficiency: #1 hypoxia: Patient's hypoxemia is multifactorial with COPD, obesity hypoventilation, diastolic heart failure: COPD: Patient appears to be improving/stabilizing switch to prednisone 60mg QD SIMONA/obesity hypoventilation syndrome: patient will require BiPAP as much as tolerated EDAC: CT thorax suggest EDAC: continue BiPAP as much as tolerated and as an out-patient titrate for awake CPAP #2 lung nodule: High risk patient initial CAT scan 06/12/2016 7 cm nodule: This time perform noncontrast CT if stable follow-up 06/2017 then 06/2018 12 mm right upper lobe groundglass nodule follow-up CT during this hospitalization and follow-up yearly for 3 years Standard: Once again standard of care would imply we initiate more aggressive workup of the patient's 12 mm right upper lobe nodule but as she is unstable we're unable to perform more aggressive care at this time. Data Medications: Current Inpatient Medications Medications (Trade) Dose Ordered Sig/Rupinder Route Start Time Stop Time Status Last Admin Dose Admin Heparin Sodium (Porcine) (Heparin Sq 5000 Unit/0.5ml) 5,000 unit Q8 SQ 08/31/16 22:00 09/30/16 21:59 09/04/16 06:05 5,000 UNIT Acetaminophen (Tylenol Tab) 650 mg Q4H PRN PO 08/31/16 17:30 09/30/16 17:29 09/04/16 06:06 650 MG Al Hydrox/Mg Hydrox/Simethicone (Maalox Max Susp) 15 ml Q4H PRN PO 08/31/16 17:30 09/30/16 17:29 Magnesium Hydroxide (Milk Of Magnesia Susp) 30 ml Q12H PRN PO 08/31/16 17:30 09/30/16 17:29 Ondansetron HCl (Zofran Inj) 4 mg Q6H PRN IV 08/31/16 17:30 09/30/16 17:29 Nitroglycerin (Nitrostat Tab) 0.4 mg UD PRN SL 08/31/16 17:30 09/30/16 17:29 Allopurinol (Zyloprim Tab) 300 mg DAILY PO 09/01/16 09:00 10/01/16 08:59 09/04/16 08:04 300 MG Aspirin (Ecotrin Tab) 81 mg DAILY PO 09/01/16 09:00 10/01/16 08:59 09/04/16 08:04 81 MG Atorvastatin Calcium (Lipitor Tab) 20 mg DAILY PO 09/01/16 09:00 10/01/16 08:59 09/04/16 08:05 20 MG Bumetanide (Bumex Tab) 1 mg BID17 PO 08/31/16 21:00 09/30/16 20:59 09/04/16 08:06 1 MG Gabapentin (Neurontin Cap) 300 mg TID PO 08/31/16 21:00 09/30/16 20:59 09/04/16 08:06 300 MG Levothyroxine Sodium (Synthroid Tab) 88 mcg DAILYBB PO 09/01/16 06:59 10/01/16 06:59 09/04/16 06:04 88 MCG Losartan Potassium (coZAAR TAB) 50 mg QAM PO 09/01/16 09:00 10/01/16 08:59 09/04/16 08:06 50 MG Metoprolol Succinate (Toprol Xl Tab) 50 mg DAILY PO 09/01/16 09:00 10/01/16 08:59 09/04/16 08:05 50 MG Multivitamins/ Minerals (Multivitamin W/ Minerals Tab) 1 tab DAILY PO 09/01/16 09:00 10/01/16 08:59 09/04/16 08:08 1 TAB Propafenone HCl (Rythmol Tab) 150 mg TID PO 08/31/16 21:00 09/30/16 20:59 09/04/16 08:05 150 MG Ranitidine HCl (zANTac TAB) 150 mg BID PO 08/31/16 21:00 09/30/16 20:59 09/04/16 08:08 150 MG Ferrous Sulfate (Feosol Tab) 325 mg DAILY PO 09/01/16 09:00 10/01/16 08:59 09/04/16 08:05 325 MG Levalbuterol (Xopenex 0.63 Mg/ 3 Ml Neb) 0.63 mg Q2R PRN INH 08/31/16 17:30 09/30/16 17:29 Salmeterol Xinafoate/ Fluticasone (Advair Diskus 500/50 Inh) 1 puff BID INH 08/31/16 21:00 09/30/16 20:59 09/04/16 08:04 1 PUFF Potassium Chloride (Klor-Con Tab) 20 meq Q2D@0900 PO 09/01/16 09:00 10/01/16 08:59 09/03/16 08:00 20 MEQ Albuterol/ Ipratropium 3 ml 3 ml QIDR INH 09/01/16 08:00 10/01/16 07:59 09/04/16 11:07 3 ML Ceftriaxone Sodium 2000 mg/ Dextrose 70 ml @ 140 mls/hr Q24H IV 09/01/16 15:00 09/08/16 14:59 09/03/16 17:06 140 MLS/HR Methylprednisolone Sodium Succinate/ Syringe (Solu-Medrol IV/ Syringe) 0.64 ml @ 1.5 mls/min Q12H IV 09/02/16 22:00 10/02/16 21:59 09/04/16 10:12 1.5 MLS/MIN Miconazole Nitrate (Desenex Powder) 1 appln PRN PRN EXT 09/04/16 09:45 10/04/16 09:44 I & O: 24-Hour Column 09/04/16 08:00 Intake Total 360 ml Output Total 1000 ml Balance -640 ml Vital Signs: Date Time Temp Pulse Resp B/P Pulse Ox O2 Delivery O2 Flow Rate FiO2 09/04/16 08:48 96 Nasal Cannula 2.0 09/04/16 08:00 Nasal Cannula 4.0 09/04/16 08:00 36.6 68 16 120/70 96 Nasal Cannula 2.0 09/04/16 07:06 81 18 96 BiPAP/CPAP 4.0 09/04/16 00:10 CPAP 09/04/16 00:08 36.8 64 16 117/69 96 CPAP 09/03/16 23:00 63 92 4.0 09/03/16 19:30 81 18 95 Nasal Cannula 4.0 09/03/16 15:50 Nasal Cannula 4.0 09/03/16 15:32 36.7 65 16 130/73 95 Nasal Cannula 4.0 09/03/16 14:56 36.8 62 20 100 4.0 Laboratory Results: Last 24 Hours Test 09/04/16 12:46 White Blood Count 19.25 K/uL Red Blood Count 3.66 M/uL Hemoglobin 11.6 g/dL Hematocrit 36.6 % Mean Corpuscular Volume 100.0 fL Mean Corpuscular Hemoglobin 31.7 pg Mean Corpuscular Hemoglobin Concent 31.7 g/dl RDW Standard Deviation 52.7 fL RDW Coefficient of Variation 14.4 % Platelet Count 235 K/uL Mean Platelet Volume 9.8 fL Nucleated RBC Absolute Count (auto) 0.03 K/uL Nucleated Red Blood Cells % 0.1 % Sodium Level 137 mmol/L Potassium Level 4.2 mmol/L Chloride Level 89 mmol/L Carbon Dioxide Level 41 mmol/L Anion Gap 7.0 mmol/L Blood Urea Nitrogen 82 mg/dl Creatinine 1.90 mg/dl Est Creatinine Clear Calc Drug Dose 36.5 ml/min Estimated GFR () 30.9 Estimated GFR (Non- 26.6 BUN/Creatinine Ratio 43.0 Random Glucose 226 mg/dl Calcium Level 9.8 mg/dl Phosphorus Level 3.5 mg/dl Magnesium Level 2.3 mg/dl
[2016-09-04] MEDS ORDERED: CEPH500C2 PO (14:20)
[2016-09-04] MEDS ORDERED: LCTX PO (14:20)
[2016-09-04] MEDS ORDERED: PRD20 PO (14:20)
--- NOTE | 2016-09-04 14:25 | Discharge Instructions ---
Discharge Instructions Admission Reason for Admission: Acute And Chronic Respiratory Failure, Copd Discharge Discharge Diagnosis / Problem: Acute on Chronic Respiratory failure,UTI ,Sleep Apnea on BIPAP and Oxygen Discharge Goals Goal(s): Prevent Disease Progression Activity Recommendations Activity Limitations: resume your previous activity . Instructions / Follow-Up Instructions / Follow-Up Dr Melendez on 09/10/16 at 1:00PM.Please make an appointment with Dr Jimenez/ Telecommunications Project Manager in 2 weeks.Use BIPAP all the time at night and as much as possible during the day.Oxygen 3-4 liters/Minute Current Hospital Diet Patient's current hospital diet: AHA Diet (Heart Healthy) Discharge Diet Recommended Diet: AHA Diet (Heart Healthy) Fluid Restriction: 1500 ml (6 cups) Pending Studies Studies pending at discharge: no Medical Emergencies . Who to Call and When: Medical Emergencies: If at any time you feel your situation is an emergency, please call 911 immediately. . Non-Emergent Contact Non-Emergency issues call your: Primary Care Provider . Past History Medical & Surgical History: (1) Acute and chronic respiratory failure (2) Hypercarbia (3) COPD exacerbation (4) Depression (5) COPD (chronic obstructive pulmonary disease) (6) CHF (congestive heart failure) (7) HTN (hypertension) (8) Dyslipidemia (9) CKD (chronic kidney disease), stage IV (10) S/P cervical spinal fusion (11) History of appendectomy . "Provider Documentation" section prepared by Ruth Thomas. VTE Core Measure Inpt VTE Proph given/why not?: Unfractionated heparin SQ
[2016-09-04] MEDS: CEFTRIAXONE SOD INJ 2000 MG in DEXTROSE 5% 50ML IV SCH (15:00)
--- NOTE | 2016-09-05 07:53 | Discharge Summary ---
Discharge Summary Date of Service Sep 05, 2016. Discharge Summary Admission Date: Aug 31, 2016 at 17:35 Discharge Date: Sep 04, 2016 Discharge Disposition: Home with services Principal Diagnosis: Acute on Chronic Respiratory failure,UTI ,Sleep Apnea on BIPAP and Oxygen Secondary Diagnoses/Problems: Please see H&P Consultations: Pulmonary Medication Reconciliation New Medications: Cephalexin Monohydrate (Keflex) 500 Mg Cap 500 MG PO TID, #15 CAP Lactobacillus Acidophilus (Lactinex) Tab 1 TAB PO TID, #30 TAB Prednisone (Prednisone) 20 Mg Tab 20 MG PO UD for 15 Days, #30 TAB 3 po Daily for 3 days ,2 and a 1/2 daily for 3 days,2 daily for 3 days ,1 and a 1/2 daily for 3 days and then 1 diaily until changed by your Lung doctor Continued Medications: Acetaminophen (Tylenol) 325 Mg Tab 650 MG PO Q4H PRN for Pain or Fever, TAB Albuterol Sulf (Proventil 0.083% 2.5MG/3ML) 2.5 Mg/3 Ml Nebu 2.5 MG INH QID PRN for SOB/Wheezing, #1 EA Allopurinol (Zyloprim) 300 Mg Tab 300 MG PO DAILY, TAB Aspirin (Aspirin Ec) 81 Mg Tab 81 MG PO DAILY Atorvastatin (Lipitor) 20 Mg Tab 20 MG PO DAILY, TAB Bumetanide (Bumetanide) 1 Mg Tab 1 MG PO BID for 30 Days, #60 TAB Ferrous Sulfate (Kp Ferrous Sulfate) 325 Mg Tab 1 TAB PO DAILY for 30 Days, #30 TAB 3 Refills Fluticasone Prop/Salmeterol (Advair Diskus 500/50 60 Dose) 1 Ea Aerp 1 PUFFS INH BID for 30 Days, #1 INHALER 5 Refills Gabapentin (Neurontin) 300 Mg Cap 300 MG PO TID, CAP Ipratropium-Albuterol (Combivent Respimat) 1 Aer Aer 1 PUFFS INH QID, #1 INH Levothyroxine Sodium (Synthroid) 88 Mcg Tab 88 MCG PO DAILY, TAB Losartan Potassium (Losartan Potassium) 50 Mg Tab 50 MG PO QAM for 30 Days, #30 TAB Metoprolol Succinate (Toprol Xl) 50 Mg Tab 50 MG PO DAILY, TAB Multivitamins/Minerals (Certavite/Antioxidants) 1 Tab Tab 1 TAB PO DAILY Potassium Ext Rel (Klor-Con) 20 Meq Tabcr 20 MEQ PO Q2D for 30 Days, TAB every other day Propafenone Hcl (Propafenone Hcl) 150 Mg Tab 150 MG PO TID Ranitidine (Zantac) 150 Mg Tab 150 MG PO BID, TAB Admission Information HPI (per Admitting provider): DATE OF ADMISSION: 08/31/2016 CHIEF COMPLAINT: Acute respiratory failure. HISTORY OF PRESENT ILLNESS: This is a 66-year-old female with past medical history significant for chronic respiratory failure secondary to severe COPD, at one point of time she was in hospice secondary to copd; obstructive sleep apnea on BiPAP, history of right-sided heart failure, morbid obesity, hyperlipidemia, hypertension, atrial fibrillation, chronic kidney disease, stage 3-4, history of spinal stenosis, GERD, depression, presents with not feeling well, weak and confused and in the ER her CO2 was high. She was placed on BiPAP. Currently she seems to be back to her baseline. The patient lives with her daughter and she walks with help of a walker.She was here in June with same CO2 retention and COPD exacerbation. At that time she was sent to [facility]. She stayed for 1 week after that came to home and she is apparently doing okay, but last few days she is getting progressively weak, tired and had generalized weakness, not able to ambulate much, appetite is going down and patient seemed confused today and she was brought to the hospital. As per the daughter, patient has BiPAP at home and she is using it regularly while she is sleeping. Has some chills but no fevers, some nausea, no vomiting. She is using stool softeners and currently having diarrhea and daughter thinks secondary to stool softeners. No abdominal pain, no chest pain. Has a dry cough. Currently resting comfortably and hemodynamically stable on BiPAP.Follows with Pulmonary and has an appointment tomorrow. ALLERGIES: No known drug allergies. PAST MEDICAL HISTORY: As mentioned above. PAST SURGICAL HISTORY: Neck spine fusion surgery, appendectomy, cholecystectomy, repair of the wrist with internal fixation, right shoulder replacement, right total hip replacement. MEDICATIONS: Currently the patient is on propafenone 150 mg p.o. q. 8 hours, losartan 50 mg p.o. daily, Lipitor 20 mg p.o. daily, Bumex 1 mg p.o. b.i.d., potassium chloride 20 mEq every other day, vitamin D 2000 units p.o. daily, Combivent 1 puff q.i.d., iron complex daily, multivitamin daily, albuterol nebulization every 4-6 hours p.r.n., Toprol-XL 50 mg p.o. daily, gabapentin 300 mg p.o. t.i.d., levothyroxine 88 mcg p.o. daily, Zantac 150 mg p.o. b.i.d., allopurinol 300 mg p.o. daily, Tylenol 1000 mg p.o. q. 6 hours p.r.n., aspirin 81 mg p.o. daily, Advair Diskus 500/50 mcg 1 puff inhalation b.i.d. FAMILY HISTORY: Significant for mother had diabetes and heart disorder. Sister had CABG at the age of 43. SOCIAL HISTORY: . Former smoker, quit in 2009, smoked half pack a day for 35 years. No alcohol use. No drug use. Currently lives with her daughter. REVIEW OF SYSTEMS: As per HPI. Rest of review of symptoms negative. PHYSICAL EXAMINATION: GENERAL: The patient is morbidly obese, not in distress. VITAL SIGNS: Temperature 36.5, pulse 73, respiratory rate 18, blood pressure 124/54, oxygen 98% on BiPAP. HEENT: No pallor, no icterus. Pupils equal, round, and reactive to light. NECK: No JVD, no neck masses, no carotid bruits. CARDIOVASCULAR: S1, S2 heard, regular rate and rhythm, no murmur, no gallop. RESPIRATORY SYSTEM: Diminished bilateral breath sounds. No wheezing, no crackles. ABDOMEN: Soft, bowel sounds present. Nontender. No distention. CENTRAL NERVOUS SYSTEM: Alert and oriented x3. Nonfocal. EXTREMITIES: No edema. No erythema. LABS: WBC 15, hemoglobin 10.4, hematocrit 33.5, platelets 216. Sodium 139, potassium 3.9, chloride 89, CO2 of 45, BUN 45, creatinine 1.6, serum glucose 135, point of care lactic acid 1.16, calcium 9.4, magnesium 1.7, total bilirubin 0.3, direct bilirubin 0.1, AST of 12, ALT 18, alkaline phosphatase 87, total creatine kinase 26, troponin I less than 0.015. PT 11.2, INR 1. Urinalysis, small leukocyte esterase. Chest x-ray: No acute process seen. EKG, normal sinus rhythm with a rate of 69, nonspecific ST abnormality, no significant change from previous EKG. ASSESSMENT AND PLAN: This is a 66-year-old female who presents with acute on chronic respiratory failure secondary to chronic obstructive pulmonary disease exacerbation. 1. Acute on chronic respiratory failure with chronic obstructive pulmonary disease exacerbation. Venous blood gas showed a pCO2 of 103. Currently, saturating fine on BiPAP. We will place her on IV Solu-Medrol, IV Levaquin, nebs, continue the BiPAP. Repeat ABG. The patient is to follow up with pulmonary. We will consult pulmonary for further recommendations. 2. Obstructive sleep apnea, on BiPAP. BiPAP setting adjustment as per pulmonary. 3. possible urinary tract infection on Levaquin. We will follow the cultures. 4. Right-sided heart failure. Does not seem to be volume overload. Continue her home Bumex and potassium supplements. Monitor for any volume overload. 5. Acute renal failure and chronic kidney disease. Baseline creatinine around 1.3 to 1.4, creatinine 1.6, possibly from above. We will follow the labs. If worsening, we will hold the Bumex. 6. History of hyperlipidemia. Continue statin. 7. History of hypertension. Continue Cozaar and metoprolol. Monitor the blood pressure. 8. History of atrial fibrillation, currently in sinus rhythm on metoprolol. Not on any blood thinners. 9. Gastroesophageal reflux disease, on proton pump inhibitors. 10. Deep venous thrombosis prophylaxis, heparin subQ, sequential compression devices. DISPOSITION: Admit to tele floor. PT and OT prior to discharge. Social service to help with discharge planning. Code status level 3. Hospital Course Acute on chronic respiratory failure Exacerbation of chronic obstructive pulmonary disease Saturating fine on BiPAP. Started on IV Solu-Medrol, IV Levaquin, nebs, Appreciate Pulmonary input Advised BIPAP most of the time Nebs round the clock Carbon dioxide level is high but stable Steroid dose is reduced and will be tapered as advised Obstructive sleep apnea, on BiPAP. BiPAP setting adjustment as per pulmonary. Advised to wear BIPAP as long as possible -all the time at night and maximum tiome possible during the day Conveyed to Daughter in room Urinary tract infection Gram Negative Bacilli Levaquin discontinued On Ceftriaxone -continue for now Resistant to Quinolones WCC is elevated -likely due to steroid Recheck WCC -if decreased will discharge home Chronic Right-sided heart failure with Preserved EF No acute CHF in CXR Continue her home Bumex and potassium supplements. Acute renal failure and chronic kidney disease. Baseline creatinine around 1.3 to 1.4, Will monitor PRP Creatinine 1.5 today Advised more fluid intake orally Creatinine is a little worse today HTN and Hyperlipidemia Continue Cozaar and metoprolol and statin BP remains stable History of atrial fibrillation, Currently in sinus rhythm on metoprolol. Not on any Anticoagulation Gastroesophageal reflux disease, On proton pump inhibitors. Deep venous thrombosis prophylaxis, Heparin subQ, sequential compression devices. Disposition Likely discharge today Discussed with Dr Jimenez Total time spent on discharge = 35 minutes This includes examination of the patient, discharge planning, medication reconciliation, and communication with other providers. Discharge Instructions Admission Reason for Admission: Acute And Chronic Respiratory Failure, Copd Discharge Discharge Diagnosis / Problem: Acute on Chronic Respiratory failure,UTI ,Sleep Apnea on BIPAP and Oxygen Discharge Goals Goal(s): Prevent Disease Progression Activity Recommendations Activity Limitations: resume your previous activity . Instructions / Follow-Up Instructions / Follow-Up Dr Melendez on 09/10/16 at 1:00PM.Please make an appointment with Dr Jimenez/ Medical Policy Specialist in 2 weeks.Use BIPAP all the time at night and as much as possible during the day.Oxygen 3-4 liters/Minute Current Hospital Diet Patient's current hospital diet: AHA Diet (Heart Healthy) Discharge Diet Recommended Diet: AHA Diet (Heart Healthy) Fluid Restriction: 1500 ml (6 cups) Pending Studies Studies pending at discharge: no Medical Emergencies . Who to Call and When: Medical Emergencies: If at any time you feel your situation is an emergency, please call 911 immediately. . Non-Emergent Contact Non-Emergency issues call your: Primary Care Provider . Past History Medical & Surgical History: (1) Acute and chronic respiratory failure (2) Hypercarbia (3) COPD exacerbation (4) Depression (5) COPD (chronic obstructive pulmonary disease) (6) CHF (congestive heart failure) (7) HTN (hypertension) (8) Dyslipidemia (9) CKD (chronic kidney disease), stage IV (10) S/P cervical spinal fusion (11) History of appendectomy . "Provider Documentation" section prepared by Manabendra Martha. VTE Core Measure Inpt VTE Proph given/why not?: Unfractionated heparin SQ <Electronically signed by Ruth Thomas M.D.> Additional Copies To Babak Melendez M.D.(NATHANIEL
[2016-09-16] MEDS ORDERED: IPRA1AER2 INH (11:15)
[2016-09-16] MEDS ORDERED: PRED10TA PO (11:15)
[2016-10-01] MEDS ORDERED: PRD10 PO ×2 (13:18→13:25)
[2017-01-29] MEDS ORDERED: LVQ500 PO (09:27)
[2017-01-29] MEDS ORDERED: PRED10TA PO (09:29)
[2017-01-29] MEDS ORDERED: LVQ250 PO (10:43)
[2017-02-14] MEDS ORDERED: DLR500 PO (13:07)
[2017-02-14] MEDS ORDERED: PRED10TA PO (13:07)
[2017-02-22] MEDS ORDERED: ULT50X PO (16:20)
== END 2016-09-04 17:25 | disposition home health service (06) | DRG 190 ==
LOC: ENRESERVTM → ENRESERVDT → EDBD 15:13 → C.EDB 15:14 → C.EDINP 17:35 → C.2T 21:19 → C.MS2W 09-03 14:52
PROVIDERS: ADMIT Internal Medicine; ATTEND Internal Medicine
DX: J44.1 Chronic obstructive pulmonary disease with (acute) exacerbation (principal); J96.01 Acute respiratory failure with hypoxia; J96.02 Acute respiratory failure with hypercapnia; N39.0 Urinary tract infection, site not specified; N17.9 Acute kidney failure, unspecified; I50.32 Chronic diastolic (congestive) heart failure; I13.0 Hypertensive heart and chronic kidney disease with heart failure and stage 1 through stage 4 chronic kidney disease, or unspecified chronic kidney disease; N18.4 Chronic kidney disease, stage 4 (severe); Z68.42 Body mass index [BMI] 45.0-49.9, adult; B96.89 Other specified bacterial agents as the cause of diseases classified elsewhere; Z16.23 Resistance to quinolones and fluoroquinolones; G47.33 Obstructive sleep apnea (adult) (pediatric); E66.01 Morbid (severe) obesity due to excess calories; J45.909 Unspecified asthma, uncomplicated; I25.2 Old myocardial infarction; I48.0 Paroxysmal atrial fibrillation; D50.9 Iron deficiency anemia, unspecified; E03.9 Hypothyroidism, unspecified; I25.10 Atherosclerotic heart disease of native coronary artery without angina pectoris; E78.5 Hyperlipidemia, unspecified; K21.9 Gastro-esophageal reflux disease without esophagitis; Z51.81 Encounter for therapeutic drug level monitoring; Z79.899 Other long term (current) drug therapy; Z79.82 Long term (current) use of aspirin; Z99.81 Dependence on supplemental oxygen; Z86.14 Personal history of Methicillin resistant Staphylococcus aureus infection; Z87.891 Personal history of nicotine dependence; Z83.3 Family history of diabetes mellitus; Z82.49 Family history of ischemic heart disease and other diseases of the circulatory system

== ENCOUNTER 2016-09-13 21:45 | Inpatient (IN) | payer OTHER ==
[~2016-09-13] VITALS: Ht 162.6 cm; Wt 120.2 kg
[~2016-09-13 21:45] MED LIST changes: +ACET-1311 PO; -ADVIN25050 INH; +ADVIN50/60 INH; +ALBINS/ INH; +CEPH500C2 PO; -IRON1CAP2 PO; +LCTX PO; +PRD20 PO; -VTMD1000 PO
[2016-09-13] MEDS ORDERED: METHYLPREDNISOLONE 125 MG VIAL IV STA (22:17)
[2016-09-13] MEDS ORDERED: ALBUT/IPRATROP 3MG/0.5MG NEB 3 ML VIAL INH ONE (22:30)
[2016-09-13 22:42] VITALS: PULSE 88; O2SAT 92
[2016-09-13 22:52] LABS: ALB/GLOB RATIO 0.9 (0.9-2); ALKALINE PHOSPHATASE 86 U/L (45-117); ALT/SGPT 19 U/L (12-78); AST/SGOT 17 U/L (15-37); BLOOD UREA NITROGEN 66 mg/dl (7-18); BUN/CREATININE RATIO 32.8 (10-20); CALCIUM 8.5 mg/dl (8.5-10.1); CARBON DIOXIDE 32 mmol/L (21-32); CHLORIDE 101 mmol/L (98-107); CKMB/CK RATIO 2.5 (0-3.0); GLUCOSE 110 mg/dl (70-99); POTASSIUM 4.3 mmol/L (3.5-5.1); SODIUM 142 mmol/L (136-145)
--- NOTE | 2016-09-13 22:52 | EMERGENCY ROOM VISIT NOTE ---
History Report prepared by Warren: Letty Howard Under the Supervision of: Dr. Donovan Rees M.D. First contact with patient: 22:10 Chief Complaint: LEG PAIN,LEG INJURY Stated Complaint: LEG PAIN History of Present Illness The patient is a 66 year old female who presents to the Emergency Room with complaints of worsening bilateral leg pain since yesterday. She states that she is unable to ambulate due to her pain and she rates her current pain as a 7/10 in severity. The patient states that she has been feeling "trembly" and more short of breath than usual. She has a personal history of COPD and is on 4L of O2 all the time. Family states that she has had similar symptoms in the past with COPD exacerbations. The patient has not taken any medications for her symptoms. Source of History: patient, family Onset: yesterday Position: leg (bilateral) Symptom Intensity: 7/10 Quality: other ("trembly") Timing: worsening Modifying Factors (Worsening): other (ambulation) Associated Symptoms: + SOB Review of Systems See HPI for pertinent positives & negatives. A total of 10 systems reviewed and were otherwise negative. Past Medical & Surgical Medical Problems: (1) Acute and chronic respiratory failure (2) CHF (congestive heart failure) (3) CKD (chronic kidney disease), stage IV (4) COPD (chronic obstructive pulmonary disease) (5) COPD exacerbation (6) Depression (7) Dyslipidemia (8) Fall (9) GERD (gastroesophageal reflux disease) (10) HTN (hypertension) (11) EVONNE (iron deficiency anemia) (12) Myocardial infarction (13) Paroxysmal a-fib Surgical Problems: (1) History of appendectomy (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 (4) Hx of cholecystectomy (5) S/P cervical spinal fusion (6) S/P wrist surgery Family History Diabetes mellitus MOTHER FH: CAD (coronary artery disease) MOTHER SISTER Social History Smoking Status: Former Smoker Alcohol Use: none Drug Use: none Marital Status: single Housing Status: lives with family Occupation Status: retired Current/Historical Medications Scheduled Allopurinol (Zyloprim), 300 MG PO DAILY Aspirin (Aspirin Ec), 81 MG PO DAILY Atorvastatin (Lipitor), 20 MG PO DAILY Bumetanide (Bumetanide), 1 MG PO BID Cephalexin Monohydrate (Keflex), 500 MG PO TID Ferrous Sulfate (Kp Ferrous Sulfate), 1 TAB PO DAILY Fluticasone Prop/Salmeterol (Advair Diskus 500/50 60 Dose), 1 PUFFS INH BID Gabapentin (Neurontin), 300 MG PO TID Ipratropium-Albuterol (Combivent Respimat), 1 PUFFS INH QID Lactobacillus Acidophilus (Lactinex), 1 TAB PO TID Levothyroxine Sodium (Synthroid), 88 MCG PO DAILY Losartan Potassium (Losartan Potassium), 50 MG PO QAM Metoprolol Succinate (Toprol Xl), 50 MG PO DAILY Multivitamins/Minerals (Certavite/Antioxidants), 1 TAB PO DAILY Potassium Ext Rel (Klor-Con), 20 MEQ PO Q2D Prednisone (Prednisone), 20 MG PO UD Propafenone Hcl (Propafenone Hcl), 150 MG PO TID Ranitidine (Zantac), 150 MG PO BID Scheduled PRN Acetaminophen (Tylenol), 650 MG PO Q4H PRN for Pain or Fever Albuterol Sulf (Proventil 0.083% 2.5MG/3ML), 2.5 MG INH QID PRN for SOB/Wheezing Allergies Coded Allergies: Adhesives (Verified Allergy, Severe, RED RASH, 09/13/16) Latex1 -Allergic Contact Dermititis (Verified Adverse Reaction, Mild, TAPE -SORE, 09/13/16) Morphine (Verified Adverse Reaction, Mild, DELUSIONS, 09/13/16) Physical Exam Vital Signs Date Time Temp Pulse Resp B/P Pulse Ox O2 Delivery O2 Flow Rate FiO2 09/13/16 22:51 81 09/13/16 22:49 98 Nasal Cannula 4.0 09/13/16 22:49 98 Nasal Cannula 4.0 09/13/16 22:46 82 18 125/58 100 Nebulizer 09/13/16 22:42 88 20 92 Nasal Cannula 4.0 09/13/16 21:52 37.2 89 20 114/46 98 Nasal Cannula 4.0 Physical Exam GENERAL: Patient is a healthy-appearing well-nourished 66 year old female. HEAD: Normocephalic atraumatic EYES: Ocular movements intact pupils equal and react to light OROPHARYNX mucous membranes are moist no exudates present no erythema or edema present NECK: Supple no nuchal rigidity CHEST: Good equal expansion LUNGS: Distant lung sounds. CARDIAC: Normal S1 and S2 ABDOMEN: Soft nontender no guarding BACK: No CVA tenderness EXTREMITIES: No pain upon palpation normal muscle strength in all groups no clubbing cyanosis or edema, good ROM of the ankles knees and hips bilaterally. NEURO: Patient is following commands is answering questions appropriately. Alert and oriented x3 Cranial Nerves 2-12 grossly intact. Medical Decision & Procedures ER Provider Diagnostic Interpretation: One view chest x-ray as interpreted by myself reveals no evidence of pneumonia, small PE on the left, no evidence of CHF. Laboratory Results 09/13/16 23:21 09/13/16 21:55 Test 09/13/16 21:55 09/13/16 22:40 09/13/16 23:21 09/14/16 00:24 Anion Gap 9.0 mmol/L (3-11) Est Creatinine Clear Calc Drug Dose 35.2 ml/min Estimated GFR () 29.0 Estimated GFR (Non- 25.0 BUN/Creatinine Ratio 32.8 (10-20) Calcium Level 8.5 mg/dl (8.5-10.1) Total Bilirubin 0.3 mg/dl (0.2-1) Aspartate Amino Transf (AST/SGOT) 17 U/L (15-37) Alanine Aminotransferase (ALT/SGPT) 19 U/L (12-78) Alkaline Phosphatase 86 U/L (45-117) Total Creatine Kinase 32 U/L (26-192) Creatine Kinase MB 0.8 ng/ml (0.5-3.6) Creatine Kinase MB Ratio 2.5 (0-3.0) Troponin I < 0.015 ng/ml (0-0.045) Total Protein 6.5 gm/dl (6.4-8.2) Albumin 3.1 gm/dl (3.4-5.0) Globulin 3.4 gm/dl (2.5-4.0) Albumin/Globulin Ratio 0.9 (0.9-2) Chemistry Specimen Hemolysis Urine Color YELLOW Urine Appearance CLEAR (CLEAR) Urine pH 5.0 (4.5-7.5) Urine Specific [place] 1.004 (1.000-1.030) Urine Protein NEG (NEG) Urine Glucose (UA) NEG (NEG) Urine Ketones NEG (NEG) Urine Occult Blood NEG (NEG) Urine Nitrite NEG (NEG) Urine Bilirubin NEG (NEG) Urine Urobilinogen NEG (NEG) Urine Leukocyte Esterase NEG (NEG) Red Blood Count 3.18 M/uL (4.2-5.4) Mean Corpuscular Volume 101.3 fL (80-100) Mean Corpuscular Hemoglobin 31.4 pg (25-34) Mean Corpuscular Hemoglobin Concent 31.1 g/dl (32-36) RDW Standard Deviation 53.7 fL (36.4-46.3) RDW Coefficient of Variation 14.5 % (11.5-14.5) Mean Platelet Volume 10.3 fL (7.4-10.4) Labs reviewed by ED physician. Medications Administered Medications (Trade) Dose Ordered Sig/Rupinder Route Start Time Stop Time Status Last Admin Dose Admin Methylprednisolone Sodium Succinate (Solu-Medrol IV) 60 mg NOW STAT IV 09/13/16 22:17 09/13/16 22:19 DC 09/13/16 22:46 60 MG Albuterol/ Ipratropium 12 ml 12 ml ONE ONCE INH 09/13/16 22:30 09/13/16 22:31 DC 09/13/16 22:41 12 ML Sodium Chloride (Nss 500ml) 500 ml @ 999 mls/hr Q31M STAT IV 09/13/16 23:23 09/13/16 23:53 DC 09/14/16 00:09 999 MLS/HR Morphine Sulfate (MoRPHine SULFATE INJ) 4 mg NOW STAT IV 09/13/16 23:24 09/13/16 23:26 DC 09/14/16 00:08 4 MG Ondansetron HCl (Zofran Inj) 4 mg NOW STAT IV 09/13/16 23:24 09/13/16 23:26 DC 09/14/16 00:08 4 MG Piperacillin Sod/ Tazobactam Sod (Zosyn Iv) 4.5 gm NOW STAT IV 09/13/16 23:38 09/13/16 23:40 DC 09/14/16 00:30 4.5 GM ECG Indication: SOB/dyspnea Rate (beats per minute): 81 Rhythm: normal sinus Findings: 1st degree AV block, no acute ischemic change, no ectopy ED Course 2210: Past medical records reviewed. The patient was evaluated in room A4B. A complete history and physical examination was performed. 2217: Solu-Medrol 60 mg IV 2230: Duoneb 12 ml INH 2323: NSS 500 ml @ 999 mls/hr IV 2324: Zofran 4 mg IV, Morphine sulfate 4 mg IV 2335: I reassessed the patient at this time. She is resting comfortably. I discussed the results and treatment plan with the patient. I answered all pertaining questions that she had. She expressed understanding and verbalized agreement. 2338: Vancomycin HCl 1000 mg/Sodium Chloride 270 ml @ 125 mls/hr IV, Zosyn 4.5 gm IV 0008: I spoke with Dr. Lowery. We discussed the patients results and treatment plan. [facility] 0600: Levofloxacin 750 mg IV Medical Decision Differential diagnosis: Etiologies such as infections, reactive airway disease, pneumonia, pneumothorax , COPD, CHF, cardiac ischemia, pulmonary embolism, musculoskeletal, gastrointestinal, as well as others were entertained. This is a 66-year-old female who presents emergency department complaining of extreme shortness of breath. The patient has history of COPD and is on 4 L of oxygen at home. The patient was noted to be any 70s on 4 L. For this reason the patient was started on 6 L of O2 given an hour-long breathing treatment. She does have an elevation in white blood count at 18. For this reason the patient was started on Zosyn and Levaquin and vancomycin. I did discuss the case with the hospitalist service who agreed to admit the patient. Patient family were in agreement with the treatment plan. Consults Time Called: 2349 Consulting Physician: Dr. Lowery Returned Call: [address] Lowery. We discussed the patients results and treatment plan. [facility]. Impression Primary Impression: COPD exacerbation Scribe Attestation The scribe's documentation has been prepared under my direction and personally reviewed by me in its entirety. I confirm that the note above accurately reflects all work, treatment, procedures, and medical decision making performed by me. Departure Information Dispostion Being Evaluated By Hospitalist Referrals Babak Melendez M.D. ([facility]) (PCP) Patient Instructions [facility]
[2016-09-13 23:16] LABS: URINE APPEARANCE CLEAR (CLEAR); URINE BILIRUBIN NEG (NEG); URINE COLOR YELLOW; URINE NITRITE NEG (NEG); URINE SPECIFIC GRAVITY 1.004 (1.000-1.030); UROBILINOGEN NEG (NEG); ZZURINE CULT IF INDIC CATH NO
[2016-09-13 23:19] LABS: MANUAL MICROSCOPIC REQUIRED? NO; REVIEW REQ? NO
[2016-09-13] MEDS ORDERED: SODIUM CHLORIDE 0.9% 500ML 500 ML IV STA (23:23)
[2016-09-13] MEDS ORDERED: ONDANSETRON INJ 2 MG/ML 2 ML VIAL IV STA (23:24)
[2016-09-13] MEDS ORDERED: MoRPHine SULFATE 4 MG/ML 1 ML CARP\\VIAL IV STA (23:24)
[2016-09-13 23:36] LABS: HEMATOCRIT 32.2 % (37-47); MEAN CELL VOLUME 101.3 fL (80-100); MEAN CORPUSCULAR HEMOGLOBIN 31.4 pg (25-34); MEAN CORPUSCULAR HGB CONC 31.1 g/dl (32-36); MEAN PLATELET VOLUME 10.3 fL (7.4-10.4); PLATELET COUNT 159 K/uL (130-400); RED BLOOD COUNT 3.18 M/uL (4.2-5.4); WHITE BLOOD COUNT 18.82 K/uL (4.8-10.8)
[2016-09-13] MEDS ORDERED: PIPERACILLIN/TAZOBACTAM 4.5 GM/100ML D5W IV STA (23:38)
[2016-09-13] MEDS ORDERED: VANCOMYCIN INJ 1,000 MG in SODIUM CHLORIDE 0.9% 250ML 250 ML IV STA (23:38)
[2016-09-14] VITALS (14 sets, daily range): BP systolic 123–143; BP diastolic 49–81; PULSE 71–96; TEMP 36.7–37.2; O2SAT 95–98; Ht 162.6 cm; Wt 120.2 kg
[2016-09-14] MEDS ORDERED: LEVAQUIN 500MG / 100ML D5W IV STA (00:37)
[2016-09-14] MEDS ORDERED: LEVALBUTEROL/IPRATROPIUM NEB INH PRN (01:30)
[2016-09-14] MEDS ORDERED: ONDANSETRON INJ 2 MG/ML 2 ML VIAL IV PRN (01:30)
[2016-09-14] MEDS ORDERED: NITROGLYCERIN 0.4 MG SL PER TAB CHARGE SL PRN (01:30)
[2016-09-14] MEDS ORDERED: TRAMADOL HCL 50 MG TAB PO PRN (01:30)
[2016-09-14] MEDS ORDERED: HYDROmorphone INJ 0.5 MG/0.5 ML SYR IV PRN (01:30)
[2016-09-14 02:22] LABS: ARTERIAL BLD GAS O2 SATURATION 95.8 % (90-95); ARTERIAL BLOOD GAS BASE EXCESS 4.7 mEq/L (-9-1.8); ARTERIAL BLOOD GAS HCO3 33 mmol/L (19-24); ARTERIAL BLOOD GAS PO2 95 mm/Hg (80-95); ARTERIAL BLOOD GAS pH 7.26 (7.35-7.45)
[2016-09-14 02:23] LABS: ALLEN TEST POS (POS); O2 ADMINISTRATION 4 LITERS
[2016-09-14 02:38] LABS: PARTIAL THROMBOPLASTIN RATIO 0.8
[2016-09-14] MEDS ORDERED: IV FLUIDS COMPLETED PRN (03:00)
[2016-09-14 03:52] LABS: INFLUENZA A PCR Neg for Influ A (NEG); INFLUENZA B PCR Neg for Influ B (NEG)
[2016-09-14 04:42] LABS: BASO % 0.1 %; BASO ABS # 0.01 K/uL (0-0.2); COMPLETE YES; EOS % 0.1 %; HEMATOCRIT 31.3 % (37-47); IG% 0.4 %; LYMPH % 2.5 %; MEAN CELL VOLUME 98.1 fL (80-100); MEAN CORPUSCULAR HGB CONC 31.6 g/dl (32-36); MEAN PLATELET VOLUME 9.5 fL (7.4-10.4); MONO % 0.6 %; NEUT % 96.3 %; PLATELET COUNT 146 K/uL (130-400); RED BLOOD COUNT 3.19 M/uL (4.2-5.4); WHITE BLOOD COUNT 19.69 K/uL (4.8-10.8)
[2016-09-14] MEDS ORDERED: LEVALBUTEROL 1.25MG/0.5ML NEB INH PRN (04:45)
[2016-09-14] MEDS ORDERED: IPRATROPIUM BROMIDE NEB SOLN 0.02% 2.5 ML VIAL INH PRN (04:45)
[2016-09-14 04:49] LABS: ARTERIAL BLD GAS O2 SATURATION 95.8 % (90-95); ARTERIAL BLOOD GAS BASE EXCESS 4.6 mEq/L (-9-1.8); ARTERIAL BLOOD GAS HCO3 33 mmol/L (19-24); ARTERIAL BLOOD GAS PO2 91 mm/Hg (80-95); ARTERIAL BLOOD GAS pH 7.27 (7.35-7.45)
[2016-09-14 04:50] LABS: ALLEN TEST POS (POS); O2 ADMINISTRATION 4L
[2016-09-14 04:59] LABS: BLOOD UREA NITROGEN 61 mg/dl (7-18); GLUCOSE 186 mg/dl (70-99)
[2016-09-14 05:00] LABS: BUN/CREATININE RATIO 33.7 (10-20); CALCIUM 8.4 mg/dl (8.5-10.1); CARBON DIOXIDE 34 mmol/L (21-32); CHLORIDE 103 mmol/L (98-107); POTASSIUM 4.7 mmol/L (3.5-5.1); SODIUM 143 mmol/L (136-145)
[2016-09-14] MEDS: HEPARIN SOD 5000 UNIT/0.5 ML CARP SQ SCH ×3 (05:56→20:39)
[2016-09-14] MEDS: LEVOTHYROXINE 88 MCG TAB PO SCH (05:57)
[2016-09-14] MEDS: LACTOBACILLUS ACIDOPHILUS (FLORANEX) TAB PO SCH ×3 (05:57→17:26)
[2016-09-14] MEDS ORDERED: LEVALBUTEROL/IPRATROPIUM NEB INH SCH (06:00)
[2016-09-14] MEDS ORDERED: LEVAQUIN 750MG / 150ML D5W IV ONE (06:00)
--- NOTE | 2016-09-14 06:56 | HISTORY & PHYSICAL EXAMINATION ---
DATE OF ADMISSION: 09/14/2016 PRIMARY CARE PHYSICIAN: Dr. Melendez. History obtained from patient's family and records. CHIEF COMPLAINT: Shortness of breath, leg pain. HISTORY OF PRESENT ILLNESS: Medical history significant for chronic respiratory failure secondary to COPD, OHS on BiPAP at night, chronic right-sided heart failure as per records, hypertension, hyperlipidemia, past tobacco abuse, paroxysmal AFib as per records , chronic renal insufficiency (baseline creatinine of 2), chronic anemia with baseline hemoglobin of 10, history of lung nodule as per records. Recent confinement about 2 weeks ago for acute on chronic respiratory failure secondary to COPD exacerbation. Patient discharged on steroids, antibiotic course. Seen by pulmonology (Dr. Jimenez). Yesterday, patient complained of bilateral leg pain, no unusual swelling. The patient was more short of breath than usual. Denies more cough symptoms than usual. Daughter thinks px may be retaining fluid. Px denies chest pain. At the Emergency Room, patient received Levaquin, Zosyn, Vancomycin, Solu-Medrol, albuterol for possible COPD exacerbation. MEDICAL HISTORY: As above. SURGERIES: Appendectomy, hip replacement, shoulder surgery, cholecystectomy, neck surgery, wrist surgery. HOME MEDICATIONS: Include Synthroid, Toprol-XL, Zantac, Zyloprim, aspirin, Lipitor, Tylenol Neurontin. ALLERGIES: ALLERGIC TO ADHESIVE, LATEX, MORPHINE. FAMILY HISTORY: Heart disease. PERSONAL AND SOCIAL HISTORY: Remote tobacco abuse. No chronic intake of ETOH. REVIEW OF SYSTEMS: As per HPI, all other ROS negative. PHYSICAL EXAMINATION: VITAL SIGNS: Blood pressure was noted to be 150/80, pulse rate 89, RR 20, temperature 36.7, sats 96 on 4 liters. GENERAL: Noted to be obese, anxious, no respiratory distress. SKIN: Pallor. HEENT: Pale palpebral conjunctivae. Dry mucosa. NECK: Short neck. LUNGS: Decreased effort. HEART: Regular rate and rhythm. ABDOMEN: Some distention, nontender. EXTREMITIES: minimal LE edema, no tenderness. NEUROLOGIC: No gross focality. LABS: Hemoglobin was noted to be 10, hematocrit noted to be 15.2, white cells 18.8, platelets 159. Sodium noted to be 140, potassium 4.3, CO2 of 32, BUN 16, creatinine 2, glucose 110. Troponin was normal. ddimer was normal ABG: pH 7.36, pCO2 of 76, pO2 of 95 on 4 liters. Chest x-ray, atelectasis, minimal congestion. EKG, no ischemia. Leg ultrasound, negative clot ASSESSMENT: 1. Shortness of breath acute on chronic hypercapnic respiratory failure hx OHS on BIPAP at night hx chronic RSHF as per records recent admission for chronic obstructive pulmonary disease exacerbation cough sx improved on outpatient regimen 2. HTN, stable 3. paroxysmal atrial fibrillation as per records, px NSR 4. past tobacco abuse 5. CRI, crea at baseline 6. chronic anemia secondary to CKD, hemoglobin at baseline PLAN: PCU BiPAP ffup ABG nebs RTC p.r.n. continue steroid taper Pulmonary consult, respiratory acidosis, respiratory failure (px known to Dr. Jimenez) PT, OT eval. DVT prophylaxis, Heparin subQ. Full code. MTDD
[2016-09-14] MEDS: IPRATROPIUM BROMIDE NEB SOLN 0.02% 2.5 ML VIAL INH SCH ×3 (07:03→19:28)
[2016-09-14] MEDS: LEVALBUTEROL 1.25MG/0.5ML NEB INH SCH ×3 (07:03→19:28)
--- NOTE | 2016-09-14 07:21 | DIAGNOSTIC IMAGING REPORT ---
BILATERAL LOWER EXTREMITY VENOUS DOPPLER HISTORY: leg pain COMPARISON STUDY: None. FINDINGS: There is normal compressibility, flow, and augmentation within the bilateral lower extremity deep venous systems. IMPRESSION: No DVT within the right or left lower extremity. Electronically signed by: Henry Bourne M.D. 09/14/2016 7:20 AM Dictated Date/Time: 09/14/2016 7:20 AM
--- NOTE | 2016-09-14 07:29 | DIAGNOSTIC IMAGING REPORT ---
CHEST ONE VIEW PORTABLE HISTORY: Short of breath. COMPARISON: Chest 08/31/2016. FINDINGS: The heart remains mildly enlarged. Linear scarlike density at the left lung base persist. No new focal lung consolidations. No evidence for pulmonary edema. Right shoulder prosthesis. No pleural effusions. No pneumothorax. Evidence for prior vertebroplasty. IMPRESSION: No significant change compared to the prior study. No acute process. Electronically signed by: Henry Bourne M.D. 09/14/2016 7:28 AM Dictated Date/Time: 09/14/2016 7:27 AM
[2016-09-14] MEDS: FLUTICASONE/SALMETEROL (ADVAIR) 500/50 INH 14 PUFF INH SCH ×2 (08:50→20:36)
[2016-09-14] MEDS: GABAPENTIN 300 MG CAP PO SCH ×3 (08:50→20:37)
[2016-09-14] MEDS: ATORVASTATIN 20 MG TAB PO SCH (08:50)
[2016-09-14] MEDS: FERROUS SULFATE 325 MG TAB PO SCH (08:50)
[2016-09-14] MEDS: RANITIDINE HCL 150 MG TAB PO SCH ×2 (08:51→20:37)
[2016-09-14] MEDS: BUMETANIDE 1 MG TAB PO SCH ×2 (08:51→17:25)
[2016-09-14] MEDS: PROPAFENONE HCL 150 MG TAB PO SCH ×3 (08:51→20:38)
[2016-09-14] MEDS: METOPROLOL SUCC 50MG EXT REL TAB PO SCH (08:51)
[2016-09-14] MEDS: LOSARTAN POTASSIUM 50 MG TAB PO SCH (08:52)
[2016-09-14] MEDS: CEROVITE ADV FORMULA TAB PO SCH (08:52)
[2016-09-14] MEDS: ASPIRIN 81 MG ECTAB PO SCH (08:52)
[2016-09-14] MEDS: ALLOPURINOL 300 MG TAB PO SCH (08:53)
[2016-09-14 09:12] LABS: ARTERIAL BLD GAS O2 SATURATION 95.9 % (90-95); ARTERIAL BLOOD GAS HCO3 32 mmol/L (19-24); ARTERIAL BLOOD GAS PO2 94 mm/Hg (80-95); ARTERIAL BLOOD GAS pH 7.27 (7.35-7.45)
[2016-09-14 09:13] LABS: ALLEN TEST POS (POS); O2 ADMINISTRATION 4L
--- NOTE | 2016-09-14 13:00 | PULMONARY CONSULTATION ---
DATE OF CONSULTATION: 09/14/2016 TIME: 08:50 a.m. REPORT OF CONSULTATION: The patient was seen in room 212. She is a 66-year-old female who presented to the Emergency Room yesterday with bilateral leg pain. She states it began yesterday. Her legs were hurting her in the lower leg regions. She could not describe exactly where the pain was. It was where the lower leg joins the foot. She did not have any falls that she could recall. Both legs hurt equally. She denies diabetes or having neuropathy. She was found to have shortness of breath and hypoxia. This resulted in admission. She feels that she was only a little more short of breath than normal. The patient has been having recurring respiratory problems. She was admitted from May 29 through the with breathing difficulty. She was readmitted on June 07 until June 15. Her problems at that time were precipitated by a fall. She was hospitalized from August 31 until the with COPD. Thus, this is her fourth hospital stay in just a few months. She states her cough is mild. She does not bringing up any phlegm. She does not feel like a cold. She denies chills, fevers or sweats. Yesterday, she states she was just very jittery and shaky and nervous. Her legs feel a little better today. She does not feel as nervous. She has had breathing problems for a quite some time. She is on oxygen at home at 4 liters. She also was on BiPAP at home. She did have a sleep study done on June 26, which was a split study. Her apnea-hypopnea index during the diagnostic portion was moderately elevated at 15.8 events per hour. Oxygen saturations were as low as 63%. She was ultimately titrated to a BiPAP pressure of 14/6 with 4 liters of oxygen. She does not know if her machine had been adjusted to these pressures or not. She could not tell me her home care company. She lives with her daughter and she states her daughter takes care of these kinds of things. The patient had a long history of smoking. She estimates she smoked 2 packs per day for about 40 years and she quit approximately 2009. Alcohol use is denied. PAST SURGICAL HISTORY: 1. Appendectomy. 2. Right hip surgery, which got infected according to the patient. 3. Right shoulder replacement. 4. Cholecystectomy. 5. Cervical fusion. 6. Wrist surgery. 7. Oophorectomy. 8. Vertebroplasty. PAST MEDICAL HISTORY: 1. COPD. 2. Obesity hypoventilation syndrome. 3. Congestive heart failure. 4. Hyperlipidemia. 5. Hypertension. 6. Chronic kidney disease stage IV. 7. Depression. 8. GERD. 9. Iron-deficiency anemia. 10. OH. 11. Paroxysmal atrial fibrillation. 12. Gout. 13. Right upper lobe lung nodule measuring 6 mm with a second nodule, which had resolved. FAMILY HISTORY: Father of accidental , but he did have heart disease. Mother , had diabetes and coronary artery disease. Sister of coronary artery disease. ALLERGIES: LISTED ALLERGIES TO LATEX, ADHESIVES, AND MORPHINE. THE MORPHINE APPARENTLY CAUSES MENTAL STATUS CHANGES. 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 REVIEW OF SYSTEMS: GENERAL: The patient's energy level is low. She is not the best historian. She lives with her daughter. She seldom gets out of the house except to go to doctor's appointments. She has a walker at home, but she states the apartment is too small to use it. She only uses it if she goes out. NEUROLOGIC: No recent syncope or near syncope. She did have the tremors yesterday as noted. OPHTHALMIC: Denies visual complaints. ENT: Denies nasal congestion or coryza. She does state that she wears her BiPAP every night. CARDIAC: Denies chest pains or palpitations. PULMONARY: As noted above. GASTROINTESTINAL: She states her appetite is good. Denies any bowel problems. She has a history of reflux, but no recent heartburn. GENITOURINARY: Denies complaints. She does have a catheter in. I asked her why they put it in and she said because they were worried about her getting up to have to urinate or go to the bathroom. MUSCULOSKELETAL: Denies myalgias or arthralgias at present. She is not complaining of leg pain this morning. ENDOCRINE: No lymphadenopathy. DERMATOLOGIC: The patient has numerous areas of skin color changes that may be vitiligo. These are chronic as per the patient. PHYSICAL EXAMINATION: VITAL SIGNS: The patient is a 66-year-old female who was cooperative. She was sleeping when I entered, but she awakened readily. She was oriented. She was in no distress. HEENT: Pupils were reactive. Nares were clear. Mouth exam showed dentures on top and an absence of teeth on the bottom. She has a large neck. No lymph nodes were palpable. CHEST: Showed diminished excursions. Heart rate is 90 beats per minute. The rhythm is regular. Blood pressure is 133/60. LUNGS: Respiratory rate was 22 breaths per minute. Oxygen saturation was 97% on nasal cannula 4 liters. Rales were heard bilaterally. No wheezing was heard. The breath sounds were decreased in intensity. ABDOMEN: Obese. Bowel sounds were present. She complained of tenderness to palpation in the left upper quadrant. It did not seem that I was pressing that firmly. She had not noticed this previously, however. She states she did have a bowel movement recently. EXTREMITIES: Showed no cyanosis, clubbing or edema. She has marked DJD of the knees. SKIN: Did show loss of pigmentation in numerous areas, which may represent vitiligo. LABORATORY DATA: Blood gas done at 02:05 a.m. showed a pH of 7.26 with a pCO2 of 76 and a pO2 of 95 on 4 liters. It is unknown if the BiPAP was also on. This would reflect partially compensated respiratory acidosis. Repeat blood gas at 04:30 showed a pH of 7.27 with a pCO2 of 72 and a pO2 of 91. Electrolytes showed sodium 143, potassium 4.7, chloride 103, and bicarbonate 34. The BUN was 61 with a creatinine of 1.8. Lactic acid level was 0.6. Troponin was negative. Flu test was negative. White count is 19.69. Hemoglobin is 9.9. Platelets are 146,000. The neutrophil count is 96.3 with lymphs only 2.5 and monocytes 0.6. Clearly, this represents a left shift. Coags showed a PTT of 21.6. D-dimer was 340. Urinalysis was unremarkable. IMPRESSION: 1. Acute on chronic respiratory failure with hypoxia and hypercarbia. 2. Chronic obstructive pulmonary disease. 3. Obesity hypoventilation syndrome. 4. Obstructive sleep apnea. 5. Leukocytosis with left shift - rule out sepsis or infection. 6. Leg pains. COMMENTS: The patient appears comfortable. She does not look short of breath at all. In terms of her respiratory status, her oxygen saturation is too high considering she has elevation of carbon dioxide so abnormal. We should keep her oxygen saturations between 88% and 92%. We will set her BiPAP at 14/6 if it has not already done so. The patient is on Advair 1 puff b.i.d. She is currently on prednisone at 30 mg. She does not sound all that tight. The patient is on levalbuterol and ipratropium every 6 hours and I would continue that. She is on subcutaneous heparin. She ultimately will need to have repeat blood gas perhaps in 24 hours to make sure that her status has improved. She needs to be followed carefully to be sure she is not septic. She has the elevated white count with left shift as mentioned. It appears that she has been on prednisone at home, although it is unknown for how long. It is also not clear why she was put on the prednisone. That could be accounting for the white count, however. Thank you for asking me to assist in her care. QUANG
--- NOTE | 2016-09-14 14:05 | PULMONARY CONSULTATION ---
DATE OF CONSULTATION: 09/14/2016 ADDENDUM The patient is on levalbuterol and ipratropium every 6 hours and I would continue that. She is on subcutaneous heparin. She ultimately will need to have repeat blood gas perhaps in 24 hours to make sure that her status has improved. She needs to be followed carefully to be sure she is not septic. She has the elevated white count with left shift as mentioned. It appears that she has been on prednisone at home, although it is unknown for how long. It is also not clear why she was put on the prednisone. That could be accounting for the white count, however. Thank you for asking me to assist in her care.
--- NOTE | 2016-09-14 17:53 | Progress Note ---
Internal Med Progress Note Date of Service: Sep 14, 2016. Provider Documentation: SUBJECTIVE: resting comfortably afebrile says sob improved leg pain is better no chest pain OBJECTIVE: Vital Signs-as noted below Exam: General-alert and awake and oriented. Not in distress. obese ENT-normal hearing Neck-no neck masses Lungs-cta b/l no wheezing or crackles Heart-s1 and s2 heard, regular rate and rhythm no murmurs Abdomen-soft bowel sounds present non tender no distension Extremities-no edema no erythema Neuro-alert and awake moves extremities Lab data as noted below. ASSESSMENT & PLAN: [] DVT PROPHYLAXIS [] DISPOSITION [] Vital Signs: Date Time Temp Pulse Resp B/P Pulse Ox O2 Delivery O2 Flow Rate FiO2 09/14/16 16:01 Nasal Cannula 2.0 09/14/16 15:45 36.9 81 20 139/81 97 Nasal Cannula 2.0 09/14/16 14:29 82 20 96 Nasal Cannula 2.0 09/14/16 12:08 97 Nasal Cannula 2.0 93 09/14/16 10:50 37.0 82 20 126/49 95 Nasal Cannula 2.0 09/14/16 09:43 Nasal Cannula 2.0 09/14/16 08:00 97 Nasal Cannula 4.0 09/14/16 07:10 37.2 83 20 133/60 98 BiPAP 09/14/16 07:03 85 97 35 09/14/16 07:03 85 24 97 BiPAP/CPAP 35 09/14/16 05:14 96 Nasal Cannula 4.0 09/14/16 04:58 86 98 35 09/14/16 04:00 36.7 96 22 123/66 96 Nasal Cannula 4.0 09/14/16 03:48 36.7 96 22 [id number] 96 Nasal Cannula 4.0 09/14/16 01:36 91 19 116/52 96 09/14/16 01:35 91 19 116/52 96 Nasal Cannula 4.0 09/14/16 00:45 92 20 136/52 98 Nasal Cannula 4.0 09/14/16 00:01 85 23 109/48 100 Nasal Cannula 4.0 09/13/16 23:31 87 17 100/50 100 Nasal Cannula 4.0 09/13/16 22:51 81 09/13/16 22:49 98 Nasal Cannula 4.0 09/13/16 22:49 98 Nasal Cannula 4.0 09/13/16 22:46 82 18 125/58 100 Nebulizer 09/13/16 22:42 88 20 92 Nasal Cannula 4.0 09/13/16 21:52 37.2 89 20 114/46 98 Nasal Cannula 4.0 Lab Results: Results Past 24 Hours Test 09/13/16 21:55 09/13/16 22:40 09/13/16 23:21 09/14/16 00:25 Range/Units Sodium Level 142 136-145 mmol/L Potassium Level 4.3 3.5-5.1 mmol/L Chloride Level 101 98-107 mmol/L Carbon Dioxide Level 32 21-32 mmol/L Anion Gap 9.0 3-11 mmol/L Blood Urea Nitrogen 66 7-18 mg/dl Creatinine 2.00 0.60-1.20 mg/dl Est Creatinine Clear Calc Drug Dose 35.2 ml/min Estimated GFR () 29.0 Estimated GFR (Non- 25.0 BUN/Creatinine Ratio 32.8 10-20 Random Glucose 110 70-99 mg/dl Calcium Level 8.5 8.5-10.1 mg/dl Total Bilirubin 0.3 0.2-1 mg/dl Aspartate Amino Transf (AST/SGOT) 17 15-37 U/L Alanine Aminotransferase (ALT/SGPT) 19 12-78 U/L Alkaline Phosphatase 86 45-117 U/L Total Creatine Kinase 32 26-192 U/L Creatine Kinase MB 0.8 0.5-3.6 ng/ml Creatine Kinase MB Ratio 2.5 0-3.0 Troponin I < 0.015 0-0.045 ng/ml Total Protein 6.5 6.4-8.2 gm/dl Albumin 3.1 3.4-5.0 gm/dl Globulin 3.4 2.5-4.0 gm/dl Albumin/Globulin Ratio 0.9 0.9-2 Chemistry Specimen Hemolysis Urine Color YELLOW Urine Appearance CLEAR CLEAR Urine pH 5.0 4.5-7.5 Urine Specific [place] 1.004 1.000-1.030 Urine Protein NEG NEG Urine Glucose (UA) NEG NEG Urine Ketones NEG NEG Urine Occult Blood NEG NEG Urine Nitrite NEG NEG Urine Bilirubin NEG NEG Urine Urobilinogen NEG NEG Urine Leukocyte Esterase NEG NEG White Blood Count 18.82 4.8-10.8 K/uL Red Blood Count 3.18 4.2-5.4 M/uL Hemoglobin 10.0 12.0-16.0 g/dL Hematocrit 32.2 37-47 % Mean Corpuscular Volume 101.3 80-100 fL Mean Corpuscular Hemoglobin 31.4 25-34 pg Mean Corpuscular Hemoglobin Concent 31.1 32-36 g/dl RDW Standard Deviation 53.7 36.4-46.3 fL RDW Coefficient of Variation 14.5 11.5-14.5 % Platelet Count 159 130-400 K/uL Mean Platelet Volume 10.3 7.4-10.4 fL Magnesium Level 2.1 1.8-2.4 mg/dl Test 09/14/16 01:20 09/14/16 02:05 09/14/16 04:30 09/14/16 08:57 Range/Units Influenza Type A (RT-PCR) Neg for Influ A NEG Influenza Type A Antigen Neg for Influ A NEG Influenza Type B Antigen Neg for Influ B NEG Influenza Type B (RT-PCR) Neg for Influ B NEG Activated Partial Thromboplast Time 21.6 21.0-31.0 SECONDS Partial Thromboplastin Ratio 0.8 D-Dimer 340 0-500 ug/L FEU Arterial Blood pH 7.26 7.27 7.27 7.35-7.45 Arterial Blood Partial Pressure CO2 76 72 72 35-46 mmHg Arterial Blood Partial Pressure O2 95 91 94 80-95 mm/Hg Arterial Blood HCO3 33 33 32 19-24 mmol/L Arterial Blood Oxygen Saturation 95.8 95.8 95.9 90-95 % Arterial Blood Base Excess 4.7 4.6 4.0 -9-1.8 mEq/L Arterial Blood Gas Delivery 4 LITERS 4L 4L Alvaro Test POS POS POS POS Lactic Acid Level 0.6 0.4-2.0 mmol/L White Blood Count 19.69 4.8-10.8 K/uL Red Blood Count 3.19 4.2-5.4 M/uL Hemoglobin 9.9 12.0-16.0 g/dL Hematocrit 31.3 37-47 % Mean Corpuscular Volume 98.1 80-100 fL Mean Corpuscular Hemoglobin 31.0 25-34 pg Mean Corpuscular Hemoglobin Concent 31.6 32-36 g/dl Platelet Count 146 130-400 K/uL Mean Platelet Volume 9.5 7.4-10.4 fL Neutrophils (%) (Auto) 96.3 % Lymphocytes (%) (Auto) 2.5 % Monocytes (%) (Auto) 0.6 % Eosinophils (%) (Auto) 0.1 % Basophils (%) (Auto) 0.1 % Neutrophils # (Auto) 18.98 1.4-6.5 K/uL Lymphocytes # (Auto) 0.50 1.2-3.4 K/uL Monocytes # (Auto) 0.11 0.11-0.59 K/uL Eosinophils # (Auto) 0.01 0-0.5 K/uL Basophils # (Auto) 0.01 0-0.2 K/uL RDW Standard Deviation 51.1 36.4-46.3 fL RDW Coefficient of Variation 14.3 11.5-14.5 % Immature Granulocyte % (Auto) 0.4 % Immature Granulocyte # (Auto) 0.08 0.00-0.02 K/uL Sodium Level 143 136-145 mmol/L Potassium Level 4.7 3.5-5.1 mmol/L Chloride Level 103 98-107 mmol/L Carbon Dioxide Level 34 21-32 mmol/L Anion Gap 6.0 3-11 mmol/L Blood Urea Nitrogen 61 7-18 mg/dl Creatinine 1.80 0.60-1.20 mg/dl Est Creatinine Clear Calc Drug Dose 39.0 ml/min Estimated GFR () 32.9 Estimated GFR (Non- 28.4 BUN/Creatinine Ratio 33.7 10-20 Random Glucose 186 70-99 mg/dl Calcium Level 8.4 8.5-10.1 mg/dl Troponin I < 0.015 0-0.045 ng/ml Microbiology Results 09/14/16 Blood Culture, Received Pending 09/14/16 Blood Culture, Received Pending
--- NOTE | 2016-09-14 18:19 | Progress Note ---
Internal Med Progress Note Date of Service: Sep 14, 2016. Provider Documentation: SUBJECTIVE: resting comfortably afebrile says sob improved leg pain is better no chest pain OBJECTIVE: Vital Signs-as noted below Exam: General-alert and awake and oriented. Not in distress. obese ENT-normal hearing Neck-no neck masses Lungs-cta b/l no wheezing or crackles Heart-s1 and s2 heard, regular rate and rhythm no murmurs Abdomen-soft bowel sounds present non tender no distension Extremities-no edema no erythema Neuro-alert and awake moves extremities Lab data as noted below. ASSESSMENT & PLAN: 1. Shortness of breath acute on chronic hypercapnic respiratory failure hx OHS on BIPAP at night hx chronic RSHF as per records recent admission for chronic obstructive pulmonary disease exacerbation on prednisone, Advair and nebs pulmonary on board improving will monitor for any infection. 2. HTN, stable on losartan and Toprol will monitor. 3. paroxysmal atrial fibrillation as per records, px NSR stable on Toprol not on anticoagulation xl 4. past tobacco abuse 5. CRI, crea at baseline will f/u labs 6. chronic anemia secondary to CKD, hemoglobin at baseline will f./u labs DVT PROPHYLAXIS hep sub q DISPOSITION monitor in tele to be determined Vital Signs: Date Time Temp Pulse Resp B/P Pulse Ox O2 Delivery O2 Flow Rate FiO2 09/14/16 16:01 Nasal Cannula 2.0 09/14/16 15:45 36.9 81 20 139/81 97 Nasal Cannula 2.0 09/14/16 14:29 82 20 96 Nasal Cannula 2.0 09/14/16 12:08 97 Nasal Cannula 2.0 93 09/14/16 10:50 37.0 82 20 126/49 95 Nasal Cannula 2.0 09/14/16 09:43 Nasal Cannula 2.0 09/14/16 08:00 97 Nasal Cannula 4.0 09/14/16 07:10 37.2 83 20 133/60 98 BiPAP 09/14/16 07:03 85 97 35 09/14/16 07:03 85 24 97 BiPAP/CPAP 35 09/14/16 05:14 96 Nasal Cannula 4.0 09/14/16 04:58 86 98 35 09/14/16 04:00 36.7 96 22 123/66 96 Nasal Cannula 4.0 09/14/16 03:48 36.7 96 22 123/66 96 Nasal Cannula 4.0 09/14/16 01:36 91 19 116/52 96 09/14/16 01:35 91 19 116/52 96 Nasal Cannula 4.0 09/14/16 00:45 92 20 136/52 98 Nasal Cannula 4.0 09/14/16 00:01 85 23 109/48 100 Nasal Cannula 4.0 09/13/16 23:31 87 17 100/50 100 Nasal Cannula 4.0 09/13/16 22:51 81 09/13/16 22:49 98 Nasal Cannula 4.0 09/13/16 22:49 98 Nasal Cannula 4.0 09/13/16 22:46 82 18 125/58 100 Nebulizer 09/13/16 22:42 88 20 92 Nasal Cannula 4.0 09/13/16 21:52 37.2 89 20 114/46 98 Nasal Cannula 4.0 Lab Results: Results Past 24 Hours Test 09/13/16 21:55 09/13/16 22:40 09/13/16 23:21 09/14/16 00:25 Range/Units Sodium Level 142 136-145 mmol/L Potassium Level 4.3 3.5-5.1 mmol/L Chloride Level 101 98-107 mmol/L Carbon Dioxide Level 32 21-32 mmol/L Anion Gap 9.0 3-11 mmol/L Blood Urea Nitrogen 66 7-18 mg/dl Creatinine 2.00 0.60-1.20 mg/dl Est Creatinine Clear Calc Drug Dose 35.2 ml/min Estimated GFR () 29.0 Estimated GFR (Non- 25.0 BUN/Creatinine Ratio 32.8 10-20 Random Glucose 110 70-99 mg/dl Calcium Level 8.5 8.5-10.1 mg/dl Total Bilirubin 0.3 0.2-1 mg/dl Aspartate Amino Transf (AST/SGOT) 17 15-37 U/L Alanine Aminotransferase (ALT/SGPT) 19 12-78 U/L Alkaline Phosphatase 86 45-117 U/L Total Creatine Kinase 32 26-192 U/L Creatine Kinase MB 0.8 0.5-3.6 ng/ml Creatine Kinase MB Ratio 2.5 0-3.0 Troponin I < 0.015 0-0.045 ng/ml Total Protein 6.5 6.4-8.2 gm/dl Albumin 3.1 3.4-5.0 gm/dl Globulin 3.4 2.5-4.0 gm/dl Albumin/Globulin Ratio 0.9 0.9-2 Chemistry Specimen Hemolysis Urine Color YELLOW Urine Appearance CLEAR CLEAR Urine pH 5.0 4.5-7.5 Urine Specific [place]aver 1.004 1.000-1.030 Urine Protein NEG NEG Urine Glucose (UA) NEG NEG Urine Ketones NEG NEG Urine Occult Blood NEG NEG Urine Nitrite NEG NEG Urine Bilirubin NEG NEG Urine Urobilinogen NEG NEG Urine Leukocyte Esterase NEG NEG White Blood Count 18.82 4.8-10.8 K/uL Red Blood Count 3.18 4.2-5.4 M/uL Hemoglobin 10.0 12.0-16.0 g/dL Hematocrit 32.2 37-47 % Mean Corpuscular Volume 101.3 80-100 fL Mean Corpuscular Hemoglobin 31.4 25-34 pg Mean Corpuscular Hemoglobin Concent 31.1 32-36 g/dl RDW Standard Deviation 53.7 36.4-46.3 fL RDW Coefficient of Variation 14.5 11.5-14.5 % Platelet Count 159 130-400 K/uL Mean Platelet Volume 10.3 7.4-10.4 fL Magnesium Level 2.1 1.8-2.4 mg/dl Test 09/14/16 01:20 09/14/16 02:05 09/14/16 04:30 09/14/16 08:57 Range/Units Influenza Type A (RT-PCR) Neg for Influ A NEG Influenza Type A Antigen Neg for Influ A NEG Influenza Type B Antigen Neg for Influ B NEG Influenza Type B (RT-PCR) Neg for Influ B NEG Activated Partial Thromboplast Time 21.6 21.0-31.0 SECONDS Partial Thromboplastin Ratio 0.8 D-Dimer 340 0-500 ug/L FEU Arterial Blood pH 7.26 7.27 7.27 7.35-7.45 Arterial Blood Partial Pressure CO2 76 72 72 35-46 mmHg Arterial Blood Partial Pressure O2 95 91 94 80-95 mm/Hg Arterial Blood HCO3 33 33 32 19-24 mmol/L Arterial Blood Oxygen Saturation 95.8 95.8 95.9 90-95 % Arterial Blood Base Excess 4.7 4.6 4.0 -9-1.8 mEq/L Arterial Blood Gas Delivery 4 LITERS 4L 4L Alvaro Test POS POS POS POS Lactic Acid Level 0.6 0.4-2.0 mmol/L White Blood Count 19.69 4.8-10.8 K/uL Red Blood Count 3.19 4.2-5.4 M/uL Hemoglobin 9.9 12.0-16.0 g/dL Hematocrit 31.3 37-47 % Mean Corpuscular Volume 98.1 80-100 fL Mean Corpuscular Hemoglobin 31.0 25-34 pg Mean Corpuscular Hemoglobin Concent 31.6 32-36 g/dl Platelet Count 146 130-400 K/uL Mean Platelet Volume 9.5 7.4-10.4 fL Neutrophils (%) (Auto) 96.3 % Lymphocytes (%) (Auto) 2.5 % Monocytes (%) (Auto) 0.6 % Eosinophils (%) (Auto) 0.1 % Basophils (%) (Auto) 0.1 % Neutrophils # (Auto) 18.98 1.4-6.5 K/uL Lymphocytes # (Auto) 0.50 1.2-3.4 K/uL Monocytes # (Auto) 0.11 0.11-0.59 K/uL Eosinophils # (Auto) 0.01 0-0.5 K/uL Basophils # (Auto) 0.01 0-0.2 K/uL RDW Standard Deviation 51.1 36.4-46.3 fL RDW Coefficient of Variation 14.3 11.5-14.5 % Immature Granulocyte % (Auto) 0.4 % Immature Granulocyte # (Auto) 0.08 0.00-0.02 K/uL Sodium Level 143 136-145 mmol/L Potassium Level 4.7 3.5-5.1 mmol/L Chloride Level 103 98-107 mmol/L Carbon Dioxide Level 34 21-32 mmol/L Anion Gap 6.0 3-11 mmol/L Blood Urea Nitrogen 61 7-18 mg/dl Creatinine 1.80 0.60-1.20 mg/dl Est Creatinine Clear Calc Drug Dose 39.0 ml/min Estimated GFR () 32.9 Estimated GFR (Non- 28.4 BUN/Creatinine Ratio 33.7 10-20 Random Glucose 186 70-99 mg/dl Calcium Level 8.4 8.5-10.1 mg/dl Troponin I < 0.015 0-0.045 ng/ml Microbiology Results 09/14/16 Blood Culture, Received Pending 09/14/16 Blood Culture, Received Pending
[2016-09-15] VITALS (15 sets, daily range): BP systolic 110–144; BP diastolic 53–66; PULSE 65–89; TEMP 35.8–37.2; O2SAT 91–100
[2016-09-15] MEDS: LEVALBUTEROL 1.25MG/0.5ML NEB INH SCH ×4 (01:28→19:48)
[2016-09-15] MEDS: IPRATROPIUM BROMIDE NEB SOLN 0.02% 2.5 ML VIAL INH SCH ×4 (01:28→19:48)
[2016-09-15] MEDS: LEVOTHYROXINE 88 MCG TAB PO SCH (04:15)
[2016-09-15] MEDS: ACETAMINOPHEN 325 MG TAB PO PRN ×2 (04:15→23:23)
[2016-09-15] MEDS: HEPARIN SOD 5000 UNIT/0.5 ML CARP SQ SCH ×3 (04:17→22:00)
[2016-09-15 08:05] LABS: ARTERIAL BLD GAS O2 SATURATION 83.9 % (90-95); ARTERIAL BLOOD GAS BASE EXCESS 8.9 mEq/L (-9-1.8); ARTERIAL BLOOD GAS HCO3 36 mmol/L (19-24); ARTERIAL BLOOD GAS PO2 51 mm/Hg (80-95); ARTERIAL BLOOD GAS pH 7.35 (7.35-7.45)
[2016-09-15 08:07] LABS: ALLEN TEST POS (POS)
[2016-09-15 08:44] LABS: CREATININE 1.5 mg/dl (0.60-1.20); POTASSIUM 4.1 mmol/L (3.5-5.1)
[2016-09-15] MEDS: RANITIDINE HCL 150 MG TAB PO SCH ×2 (09:01→21:36)
[2016-09-15] MEDS: LACTOBACILLUS ACIDOPHILUS (FLORANEX) TAB PO SCH ×3 (09:01→16:39)
[2016-09-15] MEDS: LOSARTAN POTASSIUM 50 MG TAB PO SCH (09:01)
[2016-09-15] MEDS: FLUTICASONE/SALMETEROL (ADVAIR) 500/50 INH 14 PUFF INH SCH ×2 (09:01→21:34)
[2016-09-15] MEDS: CEROVITE ADV FORMULA TAB PO SCH (09:02)
[2016-09-15] MEDS: METOPROLOL SUCC 50MG EXT REL TAB PO SCH (09:02)
[2016-09-15] MEDS: PROPAFENONE HCL 150 MG TAB PO SCH ×3 (09:02→21:35)
[2016-09-15] MEDS: ALLOPURINOL 300 MG TAB PO SCH (09:03)
[2016-09-15] MEDS: ASPIRIN 81 MG ECTAB PO SCH (09:03)
[2016-09-15] MEDS: GABAPENTIN 300 MG CAP PO SCH ×3 (09:03→21:35)
[2016-09-15] MEDS: FERROUS SULFATE 325 MG TAB PO SCH (09:03)
[2016-09-15] MEDS: ATORVASTATIN 20 MG TAB PO SCH (09:03)
[2016-09-15] MEDS: BUMETANIDE 1 MG TAB PO SCH ×2 (09:03→16:40)
--- NOTE | 2016-09-15 10:37 | Progress Note ---
Internal Med Progress Note Date of Service: Sep 15, 2016. Provider Documentation: SUBJECTIVE: Patient is doing much better today. SOB same as at baseline, cough- mild with no sputum production, no chest pain, fever, chills. Lower leg pain for which she came to ER- resolved OBJECTIVE: Vital Signs-as noted below Exam: General-AAOX3, not in distress Lungs-AEBE decreased, few rales at bases + Heart-S1 and S2 heard, Regular rate and rhythm no murmurs Abdomen-Soft , non tender, non distended, BS present Extremities-No edema no erythema Lab data as noted below. ASSESSMENT & PLAN: ASSESSMENT & PLAN: ACUTE ON CHRONIC HYPERCAPNIC RESPIRATORY FAILURE : Multifactorial: COPD/SIMONA/OHS. On 4 L oxygen, BIPAP 14/6 at night at home -Has had multiple admissions in last few months for similar reason/COPD exacerbation -On Duonebs, Prednisone 30 mg, Advair -On bumex 1 mg BID as at home- diuresed well, but no signs of fluid overload -Work up- ABGs-7.27/72/91/33--> improved /67/51/36/83% on RA, CXR- no acute process, Venous duplex- negative for DVT -Pulmonary on board, appreciate inputs. HTN- Stable -Continue with losartan and Toprol -Monitor PAROXYSMAL ATRIAL FIBRILLATION per records-->NSR -On Rhythmol (QTC 455), Toprol -Monitor on tele monitor -Not on anticoagulation. CKD-III Near baseline-1.5-1.7 -Monitor CHRONIC ANEMIA SECONDARY TO CKD -HB at baseline -No signs of active GI bleeding DVT PROPHYLAXIS -Hep sub q DISPOSITION Continue with tele monitoring PT/OT Discontinue Foleys Possible dc in AM Discussed with Dr Rodgers Vital Signs: Date Time Temp Pulse Resp B/P Pulse Ox O2 Delivery O2 Flow Rate FiO2 09/15/16 09:45 96 Nasal Cannula 1.0 09/15/16 08:05 36.8 86 20 124/65 91 09/15/16 07:45 Nasal Cannula 2.0 09/15/16 07:10 65 18 100 BiPAP/CPAP 35 09/15/16 04:00 BiPAP 09/15/16 03:40 35.8 67 26 110/53 100 BiPAP 35 09/15/16 01:30 77 99 35 09/15/16 01:28 77 26 99 BiPAP/CPAP 35 09/15/16 00:34 36.5 67 26 121/60 98 BiPAP 35 09/14/16 23:59 Nasal Cannula 2.0 BiPAP 09/14/16 22:13 71 98 35 09/14/16 20:00 Nasal Cannula 2.0 09/14/16 19:34 37.0 86 20 143/60 96 Room Air 09/14/16 19:28 85 18 96 Nasal Cannula 2.0 09/14/16 16:01 Nasal Cannula 2.0 09/14/16 15:45 36.9 81 20 139/81 97 Nasal Cannula 2.0 09/14/16 14:29 82 20 96 Nasal Cannula 2.0 09/14/16 12:08 97 Nasal Cannula 2.0 93 09/14/16 10:50 37.0 82 20 126/49 95 Nasal Cannula 2.0 Lab Results: Results Past 24 Hours Test 09/15/16 07:47 09/15/16 09:50 Range/Units Arterial Blood pH 7.35 7.35-7.45 Arterial Blood Partial Pressure CO2 67 35-46 mmHg Arterial Blood Partial Pressure O2 51 80-95 mm/Hg Arterial Blood HCO3 36 19-24 mmol/L Arterial Blood Oxygen Saturation 83.9 90-95 % Arterial Blood Base Excess 8.9 -9-1.8 mEq/L Arterial Blood Gas Delivery Room air Alvaro Test POS POS Sodium Level 141 136-145 mmol/L Potassium Level 4.1 3.5-5.1 mmol/L Chloride Level 101 98-107 mmol/L Carbon Dioxide Level 32 21-32 mmol/L Anion Gap 8.0 3-11 mmol/L Blood Urea Nitrogen 53 7-18 mg/dl Creatinine 1.50 0.60-1.20 mg/dl Est Creatinine Clear Calc Drug Dose 46.9 ml/min Estimated GFR () 41.1 Estimated GFR (Non- 35.4 BUN/Creatinine Ratio 35.0 10-20 Random Glucose 121 70-99 mg/dl Calcium Level 9.0 8.5-10.1 mg/dl
--- NOTE | 2016-09-15 10:43 | PULMONARY PROGRESS NOTE ---
DATE: 09/15/2016 DATE: 09/15/2016. TIME: 10:10 a.m. SUBJECTIVE: The patient is feeling much better. She is less short of breath. Her legs are not hurting as they had been. She is not coughing much. She has been sitting out of bed in a chair without difficulty. OBJECTIVE: GENERAL: The patient appears comfortable at rest. VITAL SIGNS: Temperature is 36.8. EARS, NOSE, THROAT: Exam is unremarkable. HEART: Heart rate is 78 per minute. The rhythm is regular and appears to be sinus on telemetry. Blood pressure 124/65. CHEST: Respiratory rate is 20 breaths per minute. Auscultation of lung valdez once again reveals rales posteriorly bilaterally in the lower one-half of the lungs. Oxygen saturation is 96% on 1 liter. ABDOMEN: Soft and nontender. Good bowel sounds were heard. EXTREMITIES: Showed no cyanosis, clubbing or edema. It is notable the patient diuresed very well yesterday. She had 3100 mL of output with only 1305 mL intake for a net balance of -1795. Today already she has had 1250 mL of urine. LABORATORY DATA: Electrolytes today show sodium 141, potassium 4.1, chloride 101, bicarbonate 32. BUN is 53 with a creatinine of 1.5. This reflects improvement from yesterday when the creatinine had been 1.8. IMPRESSIONS: 1. Acute on chronic respiratory failure with hypoxia and hypercarbia. 2. Chronic obstructive pulmonary disease. 3. Obesity hypoventilation syndrome. 4. Obstructive sleep apnea. 5. Leukocytosis. 6. Leg pains. COMMENTS AND RECOMMENDATIONS: The patient is doing better. I believe her oxygen saturations are higher than we would like. I put in an order to keep her sats between 88 and 92% because of her hypercarbia. I do agree with her current medications from a pulmonary perspective. She is still getting the Bumex b.i.d. She is getting Advair b.i.d. Her prednisone is still at 30 mg. The neb treatments include levalbuterol and ipratropium every 6 hours. She seems to be making very good progress. Not mentioned above is that her blood gas this morning was improved showing a pH of 7.35 with a pCO2 of 67, pO2 of 51 on room air. Her saturation on that was lower than desired at 84%. Perhaps she needs just a half a liter of oxygen or at most 1 liter at least for now. She still should have the oxygen at 4 liters at nighttime on the BiPAP.
[2016-09-15 10:44] LABS: HEMATOCRIT 32.4 % (37-47); MEAN CELL VOLUME 100.6 fL (80-100); MEAN CORPUSCULAR HGB CONC 31.8 g/dl (32-36); MEAN PLATELET VOLUME 10.7 fL (7.4-10.4); PLATELET COUNT 187 K/uL (130-400); RED BLOOD COUNT 3.22 M/uL (4.2-5.4); WHITE BLOOD COUNT 16.95 K/uL (4.8-10.8)
[2016-09-15 10:45] LABS: BASO % 0.2 %; BASO ABS # 0.03 K/uL (0-0.2); COMPLETE YES; EOS % 1.2 %; IG% 0.3 %; LYMPH % 7.8 %; LYMPH ABS # 1.33 K/uL (1.2-3.4); MONO % 3.6 %; NEUT % 86.9 %
[2016-09-16] VITALS (7 sets, daily range): BP systolic 117–135; BP diastolic 59–64; PULSE 61–79; TEMP 36–37; O2SAT 98–99
[2016-09-16] MEDS: IPRATROPIUM BROMIDE NEB SOLN 0.02% 2.5 ML VIAL INH SCH ×2 (01:58→07:54)
[2016-09-16] MEDS: LEVALBUTEROL 1.25MG/0.5ML NEB INH SCH ×2 (01:58→07:54)
[2016-09-16 06:30] LABS: BASO % 0.1 %; BASO ABS # 0.01 K/uL (0-0.2); COMPLETE YES; EOS % 0.9 %; HEMATOCRIT 30.2 % (37-47); IG% 0.2 %; LYMPH % 17.9 %; LYMPH ABS # 2.59 K/uL (1.2-3.4); MEAN CELL VOLUME 99.7 fL (80-100); MEAN CORPUSCULAR HGB CONC 31.1 g/dl (32-36); MEAN PLATELET VOLUME 9.2 fL (7.4-10.4); NEUT % 76.9 %; PLATELET COUNT 148 K/uL (130-400); RED BLOOD COUNT 3.03 M/uL (4.2-5.4); WHITE BLOOD COUNT 14.46 K/uL (4.8-10.8)
[2016-09-16] MEDS: LEVOTHYROXINE 88 MCG TAB PO SCH (06:35)
[2016-09-16] MEDS: HEPARIN SOD 5000 UNIT/0.5 ML CARP SQ SCH (06:39)
[2016-09-16 07:00] LABS: BUN/CREATININE RATIO 37.6 (10-20); CALCIUM 9.2 mg/dl (8.5-10.1); CREATININE 1.7 mg/dl (0.60-1.20)
[2016-09-16] MEDS: FERROUS SULFATE 325 MG TAB PO SCH (08:01)
[2016-09-16] MEDS: PROPAFENONE HCL 150 MG TAB PO SCH (08:01)
[2016-09-16] MEDS: LOSARTAN POTASSIUM 50 MG TAB PO SCH (08:01)
[2016-09-16] MEDS: METOPROLOL SUCC 50MG EXT REL TAB PO SCH (08:02)
[2016-09-16] MEDS: BUMETANIDE 1 MG TAB PO SCH (08:02)
[2016-09-16] MEDS: CEROVITE ADV FORMULA TAB PO SCH (08:02)
[2016-09-16] MEDS: RANITIDINE HCL 150 MG TAB PO SCH (08:02)
[2016-09-16] MEDS: ATORVASTATIN 20 MG TAB PO SCH (08:02)
[2016-09-16] MEDS: GABAPENTIN 300 MG CAP PO SCH (08:02)
[2016-09-16] MEDS: LACTOBACILLUS ACIDOPHILUS (FLORANEX) TAB PO SCH (08:03)
[2016-09-16] MEDS: FLUTICASONE/SALMETEROL (ADVAIR) 500/50 INH 14 PUFF INH SCH (08:03)
[2016-09-16] MEDS: ASPIRIN 81 MG ECTAB PO SCH (08:03)
[2016-09-16] MEDS: ALLOPURINOL 300 MG TAB PO SCH (08:03)
--- NOTE | 2016-09-16 10:07 | Pulmonology Progress Note ---
Pulmonary Progress Note Date of Service Sep 16, 2016. Attending Dr. Rodgers Subjective Feeling improved today. Denies any further leg pain. Denies any dyspnea, cough or wheeze. Reports she is tolerating her BiPAP without difficulty. Objective 66-yo female admitted to [facility] 09/14/16 with acute on chronic hypercarbic hypoxic respiratory failure in the setting of obesity hypoventilation/SIMONA (R[employer]ER BiPAP i14 /36 + 4LPM), clinically dx O2-dependent COPD (4LPM O2 [place]), Cor pulmonale with pEF. Other PMHx includes: recent admission 08/31/16-09/04/13 with hypercarbic/hypoxic respiratory failure adn UTI, diastolic heart dysfunction, paroxysmal atrial fibrillation, h/o 6mm RUL lung nodules (Ct 08/2016- enrolled in lung nodule program) chronic renal insufficiency, GERD, h/o right hip infection (MRSA, corynebacterium, and enterococcus), pseudomonas + sputum (2012), right #6 rib fracture, and morbid obesity. Former tobacco: 50-80-pack year, quit 2009. Patient was admitted through the [facility] ER with c/o bilateral leg pain and shakiness.W/U notable for hypoxia (70% - 4LPM). LE doppler: negative. CXR: no acute changes. ABG consistent with respiratory acidosis (09/14: 7.26/76/95-4LPM/ 33. She received 1x dose Levaquin, vancomycin, pip-tazo and solu-medrol. She was treated with titrated O2 and BiPAP (i14/e6) and has improved clinically. ABG 09/15/16: 7.75/67/51-RA/36. Today: - Slept on BiPAP for a few hours - apx 4-hours - O2 98-99% on 1-2LPM - Afebrile, HD stable - WBC/Hgb/Hct/Plts: 14.46 (decreased), 9.4/30.2/148 - CO2: 34, Cr: 1.7 (incr) - Prednisone: 20mg Physical Exam: Constitutional: Chronically ill appearing morbidly obese female sleeping in hospital bed - not wearing BiPAP - no acute distress Head: + facial symmetry. Moist mucous membranes Respiratory: Non-labored respirations. Bilateral fine crackles most concentrated at bases and extending to mid to upper 2/3 posterior lung valdez CV: Regular rate and rhythm. No murmur appreciated. +2 RP bilaterally. +2 DP on the left and +1 DP on right Abdomen: Soft, active bowel sounds. MSK/Extremities; Moving and developed symmetrically. Neurologic: Alert, wakened to voice easily. Oriented and cooperative. Assessment & Plan 66-yo female re-admitted with acute on chronic hypercarbic hypoxic respiratory failure. Does not appear to be driven by infection. Improving clinically with ventilatory supplementation and diuresis. Increased duration of BiPAP use again encouraged and patient expressed understanding. Consider addition of Spiriva daily in as she may not receive regular nebulized ANISHA at home. Data Medications: Current Inpatient Medications Medications (Trade) Dose Ordered Sig/Rupinder Route Start Time Stop Time Status Last Admin Dose Admin Heparin Sodium (Porcine) (Heparin Sq 5000 Unit/0.5ml) 5,000 unit Q8H SQ 09/14/16 06:00 10/14/16 05:59 09/16/16 06:39 5,000 UNIT Acetaminophen (Tylenol Tab) 650 mg Q4H PRN PO 09/14/16 01:30 10/14/16 01:29 09/15/16 23:23 650 MG Nitroglycerin (Nitrostat Tab) 0.4 mg UD PRN SL 09/14/16 01:30 10/14/16 01:29 Tramadol HCl (Ultram Tab) 25 mg Q6H PRN PO 09/14/16 01:30 10/14/16 01:29 09/16/16 00:31 25 MG Allopurinol (Zyloprim Tab) 300 mg DAILY PO 09/14/16 09:00 10/14/16 08:59 09/16/16 08:03 300 MG Aspirin (Ecotrin Tab) 81 mg DAILY PO 09/14/16 09:00 10/14/16 08:59 09/16/16 08:03 81 MG Atorvastatin Calcium (Lipitor Tab) 20 mg DAILY PO 09/14/16 09:00 10/14/16 08:59 09/16/16 08:02 20 MG Bumetanide (Bumex Tab) 1 mg BID17 PO 09/14/16 09:00 10/14/16 08:59 09/16/16 08:02 1 MG Salmeterol Xinafoate/ Fluticasone (Advair Diskus 500/50 Inh) 1 puff BID INH 09/14/16 09:00 10/14/16 08:59 09/16/16 08:03 1 PUFF Gabapentin (Neurontin Cap) 300 mg TID PO 09/14/16 09:00 10/14/16 08:59 09/16/16 08:02 300 MG Lactobacillus Acidophilus (Floranex Tab) 4 tab TIDM PO 09/14/16 07:30 10/14/16 07:29 09/16/16 08:03 4 TAB Levothyroxine Sodium (Synthroid Tab) 88 mcg DAILYBB PO 09/14/16 06:00 10/14/16 05:59 09/16/16 06:35 88 MCG Losartan Potassium (coZAAR TAB) 50 mg QAM PO 09/14/16 09:00 10/14/16 08:59 09/16/16 08:01 50 MG Metoprolol Succinate (Toprol Xl Tab) 50 mg DAILY PO 09/14/16 09:00 10/14/16 08:59 09/16/16 08:02 50 MG Multivitamins/ Minerals (Multivitamin W/ Minerals Tab) 1 tab DAILY PO 09/14/16 09:00 10/14/16 08:59 09/16/16 08:02 1 TAB Prednisone (PredniSONE TAB) 20 mg Taper DAILY PO 09/14/16 09:00 10/14/16 08:59 09/16/16 08:02 20 MG Propafenone HCl (Rythmol Tab) 150 mg TID PO 09/14/16 09:00 10/14/16 08:59 09/16/16 08:01 150 MG Ranitidine HCl (zANTac TAB) 150 mg BID PO 09/14/16 09:00 10/14/16 08:59 09/16/16 08:02 150 MG Ferrous Sulfate (Feosol Tab) 325 mg DAILY PO 09/14/16 09:00 10/14/16 08:59 09/16/16 08:01 325 MG Ondansetron HCl (Zofran Inj) 4 mg Q6H PRN IV 09/14/16 01:30 10/14/16 01:29 Miscellaneous (Iv Fluids Completed) 1 ea PRN PRN N/A 09/14/16 03:00 09/14/17 02:59 Ipratropium Fal[place] (Atrovent 0.02% 0.5MG/2.5ML Neb) 0.5 mg Q6R INH 09/14/16 09:00 10/14/16 08:59 09/16/16 07:54 0.5 MG Levalbuterol (Xopenex 1.25MG/ 0.5ML Neb) 1.25 mg Q6R INH 09/14/16 09:00 10/14/16 08:59 09/16/16 07:54 1.25 MG Ipratropium Falun (Atrovent 0.02% 0.5MG/2.5ML Neb) 0.5 mg Q4H PRN INH 09/14/16 04:45 10/14/16 04:44 Levalbuterol (Xopenex 1.25MG/ 0.5ML Neb) 1.25 mg Q4H PRN INH 09/14/16 04:45 10/14/16 04:44 I & O: 24-Hour Column 09/16/16 07:59 Intake Total 800 ml Output Total 2400 ml Balance -1600 ml Vital Signs: Date Time Temp Pulse Resp B/P Pulse Ox O2 Delivery O2 Flow Rate FiO2 09/16/16 08:00 Nasal Cannula 1.0 09/16/16 07:43 64 22 99 Nasal Cannula 2.0 09/16/16 07:23 36.4 61 18 123/62 99 Nasal Cannula 2.0 09/16/16 04:00 Nasal Cannula 09/16/16 03:53 36.0 64 25 135/64 98 BiPAP 35 09/16/16 01:59 66 98 35 09/16/16 01:58 66 24 98 BiPAP/CPAP 35 09/16/16 00:00 37.0 79 18 117/59 98 BiPAP 09/16/16 00:00 Nasal Cannula 1.0 09/15/16 22:13 79 98 35 09/15/16 20:00 Nasal Cannula 1.0 09/15/16 19:52 37.2 78 20 142/63 99 Nasal Cannula 2.0 81 09/15/16 19:48 78 18 94 Nasal Cannula 2.0 09/15/16 16:26 94 Nasal Cannula 2.0 35 09/15/16 16:00 36.8 88 22 117/62 92 09/15/16 14:10 75 18 94 Nasal Cannula 2.0 09/15/16 12:02 95 Nasal Cannula 1.0 09/15/16 11:23 37.0 89 22 144/66 92 89 Laboratory Results: Last 24 Hours Test 09/16/16 06:10 White Blood Count 14.46 K/uL Red Blood Count 3.03 M/uL Hemoglobin 9.4 g/dL Hematocrit 30.2 % Mean Corpuscular Volume 99.7 fL Mean Corpuscular Hemoglobin 31.0 pg Mean Corpuscular Hemoglobin Concent 31.1 g/dl Platelet Count 148 K/uL Mean Platelet Volume 9.2 fL Neutrophils (%) (Auto) 76.9 % Lymphocytes (%) (Auto) 17.9 % Monocytes (%) (Auto) 4.0 % Eosinophils (%) (Auto) 0.9 % Basophils (%) (Auto) 0.1 % Neutrophils # (Auto) 11.12 K/uL Lymphocytes # (Auto) 2.59 K/uL Monocytes # (Auto) 0.58 K/uL Eosinophils # (Auto) 0.13 K/uL Basophils # (Auto) 0.01 K/uL RDW Standard Deviation 52.6 fL RDW Coefficient of Variation 14.5 % Immature Granulocyte % (Auto) 0.2 % Immature Granulocyte # (Auto) 0.03 K/uL Sodium Level 141 mmol/L Potassium Level 4.0 mmol/L Chloride Level 100 mmol/L Carbon Dioxide Level 34 mmol/L Anion Gap 7.0 mmol/L Blood Urea Nitrogen 64 mg/dl Creatinine 1.70 mg/dl Est Creatinine Clear Calc Drug Dose 40.5 ml/min Estimated GFR () 35.3 Estimated GFR (Non- 30.5 BUN/Creatinine Ratio 37.6 Random Glucose 105 mg/dl Calcium Level 9.2 mg/dl
--- NOTE | 2016-09-16 11:13 | Progress Note ---
Internal Med Progress Note Date of Service: Sep 16, 2016. Provider Documentation: SUBJECTIVE: Patient is doing much better today and eager to be discharged home. SOB same as at baseline, cough- mild with no sputum production, no chest pain, fever, chills. Lower leg pain for which she came to ER- resolved OBJECTIVE: Vital Signs-as noted below Exam: General-AAOX3, not in distress Lungs-AEBE decreased, few rales at bases + improved Heart-S1 and S2 heard, Regular rate and rhythm no murmurs Abdomen-Soft , non tender, non distended, BS present Extremities-No edema no erythema Lab data as noted below. ASSESSMENT & PLAN: ASSESSMENT & PLAN: ACUTE ON CHRONIC HYPERCAPNIC RESPIRATORY FAILURE : Resolved Multifactorial: COPD/SIMONA/OHS. On 4 L oxygen, BIPAP 14/6 at night at home--> Needs down to 1 L day time (Goal SaO2-88-92%), BIPAP 14/6 at night -Has had multiple admissions in last few months for similar reason/COPD exacerbation -On Duonebs, Prednisone 30 mg--> taper down, Advair -On bumex 1 mg BID as at home- diuresed well, but no signs of fluid overload during this admission -Work up- ABGs-7.27/72/91/33--> improved 7/35/67/51/36/83% on RA, CXR- no acute process, Venous duplex- negative for DVT -Pulmonary on board, appreciate inputs. Cleared for discharge HTN- Stable -Continue with losartan and Toprol PAROXYSMAL ATRIAL FIBRILLATION per records-->NSR -On Rhythmol (QTC 455), Toprol -Monitored on tele monitor throughout the stay -Not on anticoagulation. CKD-III Near baseline-1.5-1.7 -Monitor outpatient CHRONIC ANEMIA SECONDARY TO CKD -HB at baseline -No signs of active GI bleeding DVT PROPHYLAXIS -Hep sub q DISPOSITION Eager to be discharged PT/OT- done Okay to discharge today - home with daughter Vital Signs: Date Time Temp Pulse Resp B/P Pulse Ox O2 Delivery O2 Flow Rate FiO2 09/16/16 08:00 Nasal Cannula 1.0 09/16/16 07:43 64 22 99 Nasal Cannula 2.0 09/16/16 07:23 36.4 61 18 123/62 99 Nasal Cannula 2.0 09/16/16 04:00 Nasal Cannula 09/16/16 03:53 36.0 64 25 135/64 98 BiPAP 35 09/16/16 01:59 66 98 35 09/16/16 01:58 66 24 98 BiPAP/CPAP 35 09/16/16 00:00 37.0 79 18 117/59 98 BiPAP 09/16/16 00:00 Nasal Cannula 1.0 09/15/16 22:13 79 98 35 09/15/16 20:00 Nasal Cannula 1.0 09/15/16 19:52 37.2 78 20 142/63 99 Nasal Cannula 2.0 81 09/15/16 19:48 78 18 94 Nasal Cannula 2.0 09/15/16 16:26 94 Nasal Cannula 2.0 35 09/15/16 16:00 36.8 88 22 117/62 92 09/15/16 14:10 75 18 94 Nasal Cannula 2.0 09/15/16 12:02 95 Nasal Cannula 1.0 09/15/16 11:23 37.0 89 22 144/66 92 89 Lab Results: Results Past 24 Hours Test 09/16/16 06:10 Range/Units White Blood Count 14.46 4.8-10.8 K/uL Red Blood Count 3.03 4.2-5.4 M/uL Hemoglobin 9.4 12.0-16.0 g/dL Hematocrit 30.2 37-47 % Mean Corpuscular Volume 99.7 80-100 fL Mean Corpuscular Hemoglobin 31.0 25-34 pg Mean Corpuscular Hemoglobin Concent 31.1 32-36 g/dl Platelet Count 148 130-400 K/uL Mean Platelet Volume 9.2 7.4-10.4 fL Neutrophils (%) (Auto) 76.9 % Lymphocytes (%) (Auto) 17.9 % Monocytes (%) (Auto) 4.0 % Eosinophils (%) (Auto) 0.9 % Basophils (%) (Auto) 0.1 % Neutrophils # (Auto) 11.12 1.4-6.5 K/uL Lymphocytes # (Auto) 2.59 1.2-3.4 K/uL Monocytes # (Auto) 0.58 0.11-0.59 K/uL Eosinophils # (Auto) 0.13 0-0.5 K/uL Basophils # (Auto) 0.01 0-0.2 K/uL RDW Standard Deviation 52.6 36.4-46.3 fL RDW Coefficient of Variation 14.5 11.5-14.5 % Immature Granulocyte % (Auto) 0.2 % Immature Granulocyte # (Auto) 0.03 0.00-0.02 K/uL Sodium Level 141 136-145 mmol/L Potassium Level 4.0 3.5-5.1 mmol/L Chloride Level 100 98-107 mmol/L Carbon Dioxide Level 34 21-32 mmol/L Anion Gap 7.0 3-11 mmol/L Blood Urea Nitrogen 64 7-18 mg/dl Creatinine 1.70 0.60-1.20 mg/dl Est Creatinine Clear Calc Drug Dose 40.5 ml/min Estimated GFR () 35.3 Estimated GFR (Non- 30.5 BUN/Creatinine Ratio 37.6 10-20 Random Glucose 105 70-99 mg/dl Calcium Level 9.2 8.5-10.1 mg/dl
[2016-09-16] MEDS ORDERED: PRED10TA PO (11:15)
[2016-09-16] MEDS ORDERED: IPRA1AER2 INH (11:15)
--- NOTE | 2016-09-16 11:17 | Discharge Instructions ---
Discharge Instructions Date of Service Sep 16, 2016. Admission Reason for Admission: SOB Discharge Discharge Diagnosis / Problem: 1. Acute on chronic hypercapneic respiratory failure 2. COPD/SIMONA/OHS/Obesit Discharge Goals Goal(s): Improve function, Increase independence, Improve disease control, Prevent Disease Progression Activity Recommendations Activity Limitations: resume your previous activity (as tolerated prior to admission) . Instructions / Follow-Up Instructions / Follow-Up MEDICATION CHANGE: 1. New medication: Prednisone 20 mg daily x 3 days f/b 10 mg daily x 3 days and than discontinue OXYGEN: 1 Litre at day time BIPAP at setting 14/6 at night only as prior to home use FOLLOW UP 1. Dr Melendez (PCP) on 09/18/16 at 11:10 AM Current Hospital Diet Patient's current hospital diet: AHA Diet (Heart Healthy) Discharge Diet Recommended Diet: AHA Diet (Heart Healthy), Low Sodium Diet (2gm Na) Pending Studies Studies pending at discharge: no Medical Emergencies . Who to Call and When: Medical Emergencies: If at any time you feel your situation is an emergency, please call 911 immediately. . Non-Emergent Contact Non-Emergency issues call your: Primary Care Provider . . "Provider Documentation" section prepared by Kandy Caal. VTE Core Measure Inpt VTE Proph given/why not?: Unfractionated heparin SQ
--- NOTE | 2016-09-16 11:20 | Discharge Summary ---
Discharge Summary Date of Service Sep 16, 2016. Discharge Summary Admission Date: Sep 14, 2016 at 03:30 Discharge Date: Sep 16, 2016 Discharge Disposition: Home with services Principal Diagnosis: 11. Acute on chronic hypercapnic respiratory failure 2. COPD/SIMONA/Obesity hypoventilation syndrome Secondary Diagnoses/Problems: 1. Hypertension 2. Atrial fibrillation, paroxysmal 3. CKD-III 4. Anemia, chronic secondary to CKD 5. Morbid obesity Procedures: Tele monitoring BIPAP Oxygen Steroids Nebs CXR Venous duplex PT/OT Consultations: Pulmonary, Dr Rodgers Pending Studies/Follow-Up: Instructions / Follow-Up Instructions / Follow-Up MEDICATION CHANGE: 1. New medication: Prednisone 20 mg daily x 3 days f/b 10 mg daily x 3 days and than discontinue OXYGEN: 1 Litre at day time BIPAP at setting 14/6 at night only as prior to home use FOLLOW UP 1. Dr Melendez (PCP) on 09/18/16 at 11:10 AM Medication Reconciliation New Medications: Prednisone Tab (Prednisone) 10 Mg Tab 10 MG PO UD, #30 TAB Changed Medications: Ipratropium-Albuterol (Combivent Respimat) 1 Aer Aer 1 PUFFS INH QID PRN for sob/wheezing, #1 INH (Medication details modified) Continued Medications: Acetaminophen (Tylenol) 325 Mg Tab 650 MG PO Q4H PRN for Pain or Fever, TAB Albuterol Sulf (Proventil 0.083% 2.5MG/3ML) 2.5 Mg/3 Ml Nebu 2.5 MG INH QID PRN for SOB/Wheezing, #1 EA Allopurinol (Zyloprim) 300 Mg Tab 300 MG PO DAILY, TAB Aspirin (Aspirin Ec) 81 Mg Tab 81 MG PO DAILY Atorvastatin (Lipitor) 20 Mg Tab 20 MG PO DAILY, TAB Bumetanide (Bumetanide) 1 Mg Tab 1 MG PO BID for 30 Days, #60 TAB Ferrous Sulfate (Kp Ferrous Sulfate) 325 Mg Tab 1 TAB PO DAILY for 30 Days, #30 TAB 3 Refills Fluticasone Prop/Salmeterol (Advair Diskus 500/50 60 Dose) 1 Ea Aerp 1 PUFFS INH BID for 30 Days, #1 INHALER 5 Refills Gabapentin (Neurontin) 300 Mg Cap 300 MG PO TID, CAP Lactobacillus Acidophilus (Lactinex) Tab 1 TAB PO TID, #30 TAB Levothyroxine Sodium (Synthroid) 88 Mcg Tab 88 MCG PO DAILY, TAB Losartan Potassium (Losartan Potassium) 50 Mg Tab 50 MG PO QAM for 30 Days, #30 TAB Metoprolol Succinate (Toprol Xl) 50 Mg Tab 50 MG PO DAILY, TAB Multivitamins/Minerals (Certavite/Antioxidants) 1 Tab Tab 1 TAB PO DAILY Potassium Ext Rel (Klor-Con) 20 Meq Tabcr 20 MEQ PO Q2D for 30 Days, TAB every other day Propafenone Hcl (Propafenone Hcl) 150 Mg Tab 150 MG PO TID Ranitidine (Zantac) 150 Mg Tab 150 MG PO BID, TAB Discontinued Medications: Cephalexin Monohydrate (Keflex) 500 Mg Cap 500 MG PO TID, #15 CAP Prednisone (Prednisone) 20 Mg Tab 20 MG PO UD for 15 Days, #30 TAB 3 po Daily for 3 days ,2 and a 1/2 daily for 3 days,2 daily for 3 days ,1 and a 1/2 daily for 3 days and then 1 diaily until changed by your Lung doctor Admission Information HPI (per Admitting provider): HISTORY OF PRESENT ILLNESS: Medical history significant for chronic respiratory failure secondary to COPD, OHS on BiPAP at night, chronic right-sided heart failure as per records, hypertension, hyperlipidemia, past tobacco abuse, paroxysmal AFib as per records , chronic renal insufficiency (baseline creatinine of 2), chronic anemia with baseline hemoglobin of 10, history of lung nodule as per records. Recent confinement about 2 weeks ago for acute on chronic respiratory failure secondary to COPD exacerbation. Patient discharged on steroids, antibiotic course. Seen by pulmonology (Dr. Jimenez). Yesterday, patient complained of bilateral leg pain, no unusual swelling. The patient was more short of breath than usual. Denies more cough symptoms than usual. Daughter thinks px may be retaining fluid. Px denies chest pain. At the Emergency Room, patient received Levaquin, Zosyn, Vancomycin, Solu-Medrol, albuterol for possible COPD exacerbation. Hospital Course ASSESSMENT & PLAN: ACUTE ON CHRONIC HYPERCAPNIC RESPIRATORY FAILURE : Resolved Multifactorial: COPD/SIMONA/OHS. On 4 L oxygen, BIPAP 14/6 at night at home--> Needs down to 1 L day time (Goal SaO2-88-92%), BIPAP 14/6 at night -Has had multiple admissions in last few months for similar reason/COPD exacerbation -On Duonebs, Prednisone 30 mg--> taper down, Advair -On bumex 1 mg BID as at home- diuresed well, but no signs of fluid overload during this admission -Work up- ABGs-7.//91/33--> improved //51/36/83% on RA, CXR- no acute process, Venous duplex- negative for DVT -Pulmonary on board, appreciate inputs. Cleared for discharge HTN- Stable -Continue with losartan and Toprol PAROXYSMAL ATRIAL FIBRILLATION per records-->NSR -On Rhythmol (QTC 455), Toprol -Monitored on tele monitor throughout the stay -Not on anticoagulation. CKD-III Near baseline-1.5-1.7 -Monitor outpatient CHRONIC ANEMIA SECONDARY TO CKD -HB at baseline -No signs of active GI bleeding DVT PROPHYLAXIS -Hep sub q DISPOSITION Eager to be discharged PT/OT- done Okay to discharge today - home with daughter Total time spent on discharge = 32 minutes This includes examination of the patient, discharge planning, medication reconciliation, and communication with other providers. Discharge Instructions Discharge Goals Goal(s): Improve function, Increase independence, Improve disease control, Prevent Disease Progression Activity Recommendations Activity Limitations: resume your previous activity (as tolerated prior to admission) . Instructions / Follow-Up Instructions / Follow-Up MEDICATION CHANGE: 1. New medication: Prednisone 20 mg daily x 3 days f/b 10 mg daily x 3 days and than discontinue OXYGEN: 1 Litre at day time BIPAP at setting 14/6 at night only as prior to home use FOLLOW UP 1. Dr Melendez (PCP) on 09/18/16 at 11:10 AM Current Hospital Diet Patient's current hospital diet: AHA Diet (Heart Healthy) Discharge Diet Recommended Diet: AHA Diet (Heart Healthy), Low Sodium Diet (2gm Na) Pending Studies Studies pending at discharge: no Medical Emergencies . Who to Call and When: Medical Emergencies: If at any time you feel your situation is an emergency, please call 911 immediately. . Non-Emergent Contact Non-Emergency issues call your: Primary Care Provider . . "Provider Documentation" section prepared by Kandy Caal. VTE Core Measure Inpt VTE Proph given/why not?: Unfractionated heparin SQ
[2017-02-22] MEDS ORDERED: ULT50X PO (16:20)
== END 2016-09-16 13:57 | disposition home health service (06) | DRG 189 ==
LOC: ENRESERVDT → ENRESERVTM → EDBD 21:45 → C.EDA 21:46 → EDBEDREQ 09-14 00:48 → C.2E 09-14 01:07 → EDBEDREQTM 09-14 01:19 → EDBEDREQ 09-14 01:19 → OBSVTOIN 09-14 03:30
PROVIDERS: ADMIT Internal Medicine; ATTEND Internal Medicine
DX: J96.22 Acute and chronic respiratory failure with hypercapnia (principal); E66.2 Morbid (severe) obesity with alveolar hypoventilation; Z68.42 Body mass index [BMI] 45.0-49.9, adult; I13.0 Hypertensive heart and chronic kidney disease with heart failure and stage 1 through stage 4 chronic kidney disease, or unspecified chronic kidney disease; I50.30 Unspecified diastolic (congestive) heart failure; J96.21 Acute and chronic respiratory failure with hypoxia; D72.829 Elevated white blood cell count, unspecified; T38.0X5A Adverse effect of glucocorticoids and synthetic analogues, initial encounter; M79.605 Pain in left leg; J44.9 Chronic obstructive pulmonary disease, unspecified; I27.81 Cor pulmonale (chronic); N18.3 Chronic kidney disease, stage 3 (moderate); M79.604 Pain in right leg; I48.0 Paroxysmal atrial fibrillation; D63.1 Anemia in chronic kidney disease; K21.9 Gastro-esophageal reflux disease without esophagitis; E78.5 Hyperlipidemia, unspecified; M10.9 Gout, unspecified; I25.2 Old myocardial infarction; Z99.81 Dependence on supplemental oxygen; Z96.641 Presence of right artificial hip joint; Z96.611 Presence of right artificial shoulder joint; Z98.1 Arthrodesis status; Z86.14 Personal history of Methicillin resistant Staphylococcus aureus infection; Z87.891 Personal history of nicotine dependence; Z79.82 Long term (current) use of aspirin; Z79.51 Long term (current) use of inhaled steroids; Z79.52 Long term (current) use of systemic steroids; Z79.899 Other long term (current) drug therapy

== ENCOUNTER 2016-09-28 10:15 | Inpatient (IN) | payer OTHER ==
[~2016-09-28] VITALS: Ht 162.6 cm; Wt 123.0 kg
[~2016-09-28 10:15] MED LIST changes: -CEPH500C2 PO; -PRD20 PO; +PRED10TA PO
[2016-09-28] MEDS ORDERED: METHYLPREDNISOLONE 125 MG VIAL IV STA (11:01)
[2016-09-28] MEDS ORDERED: ALBUT/IPRATROP 3MG/0.5MG NEB 3 ML VIAL INH ONE (11:15)
[2016-09-28 11:32] VITALS: PULSE 89; O2SAT 92
[2016-09-28 11:39] LABS: BASO % 0.2 %; BASO ABS # 0.02 K/uL (0-0.2); COMPLETE YES; EOS % 3.5 %; IG% 0.3 %; LYMPH % 12.9 %; MEAN CORPUSCULAR HEMOGLOBIN 30.7 pg (25-34); MEAN CORPUSCULAR HGB CONC 31.3 g/dl (32-36); MEAN PLATELET VOLUME 8.5 fL (7.4-10.4); MONO % 4.6 %; NEUT % 78.5 %; PLATELET COUNT 209 K/uL (130-400); RED BLOOD COUNT 3.06 M/uL (4.2-5.4); WHITE BLOOD COUNT 11.62 K/uL (4.8-10.8)
--- NOTE | 2016-09-28 11:45 | DIAGNOSTIC IMAGING REPORT ---
CHEST ONE VIEW PORTABLE HISTORY: cough eval for pna COMPARISON: Chest 09/13/2016. FINDINGS: Mild diffuse interstitial thickening is likely chronic. No new focal lung consolidations to suggest pneumonia. Stable mild cardiomegaly. No evidence for pulmonary edema. No pleural effusions. No pneumothorax. Right shoulder prosthesis. Evidence for prior thoracic spine vertebroplasty. Stable linear scarlike density at the left lung base. IMPRESSION: No significant change compared to the prior study. No acute process. Electronically signed by: Henry Bourne M.D. 09/28/2016 11:44 AM Dictated Date/Time: 09/28/2016 11:42 AM
[2016-09-28 11:47] LABS: PARTIAL THROMBOPLASTIN RATIO 0.9
[2016-09-28 12:07] LABS: BUN/CREATININE RATIO 27.7 (10-20); CALCIUM 9.4 mg/dl (8.5-10.1); CREATININE 1.5 mg/dl (0.60-1.20); POTASSIUM 3.9 mmol/L (3.5-5.1)
[2016-09-28] MEDS ORDERED: ONDANSETRON INJ 2 MG/ML 2 ML VIAL IV PRN (13:00)
[2016-09-28] MEDS ORDERED: ACETAMINOPHEN 325 MG TAB PO PRN (13:00)
[2016-09-28 13:26] LABS: ARTERIAL BLD GAS O2 SATURATION 94.1 % (90-95); ARTERIAL BLOOD GAS BASE EXCESS 11.5 mEq/L (-9-1.8); ARTERIAL BLOOD GAS HCO3 39 mmol/L (19-24); ARTERIAL BLOOD GAS PO2 76 mm/Hg (80-95); ARTERIAL BLOOD GAS pH 7.37 (7.35-7.45)
[2016-09-28 13:27] LABS: ALLEN TEST POS (POS); O2 ADMINISTRATION 2L
--- NOTE | 2016-09-28 14:48 | History and Physical ---
History & Physical Date & Time of Service: Sep 28, 2016 at 14:16 Chief Complaint: Shortness Of Breath Primary Care Physician: Babak Melendez M.D.(RAMEZ) History of Present Illness 66 year old female who presents to the ER with shortness of breath. Patient was most recently admitted to [facility] 09/14 - 09/16 for COPD exacerbation. Patient has had several admissions for this in the past. At discharge, she was given a steroid taper and her oxygen was also decreased to 1L. She continues to wear BiPap at night. Patient has not gone to any of her follow up appointments since discharge. She reports she has been feeling short of breath since returning home. She reports it has been progressively getting worse. She reports an occasional non productive cough which is chronic. She denies chest pain. No fever or chills. She denies lightheadedness, dizziness, diaphoresis, and syncopal events. No abdominal pain, nausea, vomiting, or diarrhea. She denies urinary symptoms. In the ER, patient was requiring 4L via NC to maintain saturations in the low 90s. After nebulizer and during my exam, she is down to 3L. CXR is clear. Labs are unremarkable. Vitals are stable. Past Medical/Surgical History Medical Problems: (1) CHF (congestive heart failure) Status: Chronic (2) CKD (chronic kidney disease), stage IV Status: Chronic (3) COPD (chronic obstructive pulmonary disease) Status: Chronic (4) Depression Status: Chronic (5) Dyslipidemia Status: Chronic (6) GERD (gastroesophageal reflux disease) Status: Chronic (7) HTN (hypertension) Status: Chronic (8) EVONNE (iron deficiency anemia) Status: Chronic (9) Myocardial infarction Permanent Comment: per patient, details unknown Status: Chronic (10) Paroxysmal a-fib Status: Chronic Surgical Problems: (1) History of appendectomy Status: Chronic (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 (3) 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 (4) Hx of cholecystectomy Status: Chronic (5) S/P cervical spinal fusion Status: Chronic (6) S/P wrist surgery Status: Chronic Family History Diabetes mellitus MOTHER FH: CAD (coronary artery disease) MOTHER SISTER Social History Smoking Status: Former Smoker Alcohol Use: none Housing status: lives with family Immunizations History of Influenza Vaccine: Yes Influenza Vaccine Date: May 19, 2016 History of Tetanus Vaccine?: Yes Tetanus Immunization Date: Jan 11, 2008 History of Pneumococcal: Yes Pneumococcal Date: May 19, 2016 Multi-Drug 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 Allergies Coded Allergies: Adhesives (Verified Allergy, Severe, RED RASH, 09/28/16) Latex1 -Allergic Contact Dermititis (Verified Adverse Reaction, Mild, TAPE -SORE, 09/28/16) Morphine (Verified Adverse Reaction, Mild, DELUSIONS, 09/28/16) Home Medications Scheduled Allopurinol (Zyloprim), 300 MG PO DAILY Aspirin (Aspirin Ec), 81 MG PO DAILY Atorvastatin (Lipitor), 20 MG PO DAILY Bumetanide (Bumetanide), 1 MG PO BID Ferrous Sulfate (Kp Ferrous Sulfate), 1 TAB PO DAILY Fluticasone Prop/Salmeterol (Advair Diskus 500/50 60 Dose), 1 PUFFS INH BID Gabapentin (Neurontin), 300 MG PO TID Lactobacillus Acidophilus (Lactinex), 1 TAB PO TID Levothyroxine Sodium (Synthroid), 88 MCG PO DAILY Losartan Potassium (Losartan Potassium), 50 MG PO QAM Metoprolol Succinate (Toprol Xl), 50 MG PO DAILY Multivitamins/Minerals (Certavite/Antioxidants), 1 TAB PO DAILY Potassium Ext Rel (Klor-Con), 20 MEQ PO Q2D Propafenone Hcl (Propafenone Hcl), 150 MG PO TID Ranitidine (Zantac), 150 MG PO BID Scheduled PRN Acetaminophen (Tylenol), 650 MG PO Q4H PRN for Pain or Fever Albuterol Sulf (Proventil 0.083% 2.5MG/3ML), 2.5 MG INH QID PRN for SOB/Wheezing Ipratropium-Albuterol (Combivent Respimat), 1 PUFFS INH QID PRN for sob/wheezing Review of Systems 10 point review of systems was completed with the pertinent positives and negatives noted per the HPI Physical Exam Vital Signs Date Time Temp Pulse Resp B/P Pulse Ox O2 Delivery O2 Flow Rate FiO2 09/28/16 13:59 103 22 146/64 93 4.0 09/28/16 13:46 101 09/28/16 12:13 91 24 109/76 98 Nebulizer 09/28/16 11:32 89 20 92 Nasal Cannula 2.0 09/28/16 10:34 Nasal Cannula 4.0 09/28/16 10:24 95 Nasal Cannula 4.0 09/28/16 10:24 36.8 94 36 148/54 95 4.0 09/28/16 10:24 90 General Appearance: + mild distress Head: normocephalic Eyes: normal inspection ENT: hearing grossly normal Neck: supple, no JVD Respiratory/Chest: + respiratory distress (mild tachypnea), + accessory muscle use, + wheezing (expiratory, scattered throughout all lung valdez) Cardiovascular: + tachycardia (mild, HR in the 90s-low 100s), + pertinent finding (trace edema BLLE) Abdomen/GI: normal bowel sounds, non tender, soft Extremities/Musculoskelatal: normal inspection, no calf tenderness Neurologic/Psych: no motor/sensory deficits, alert, normal mood/affect, oriented x 3 Diagnostics Laboratory Results Results Past 24 Hours Test 09/28/16 11:20 09/28/16 11:25 09/28/16 12:50 09/28/16 13:05 Range/Units White Blood Count 11.62 4.8-10.8 K/uL Red Blood Count 3.06 4.2-5.4 M/uL Hemoglobin 9.4 12.0-16.0 g/dL Hematocrit 30.0 37-47 % Mean Corpuscular Volume 98.0 80-100 fL Mean Corpuscular Hemoglobin 30.7 25-34 pg Mean Corpuscular Hemoglobin Concent 31.3 32-36 g/dl Platelet Count 209 130-400 K/uL Mean Platelet Volume 8.5 7.4-10.4 fL Neutrophils (%) (Auto) 78.5 % Lymphocytes (%) (Auto) 12.9 % Monocytes (%) (Auto) 4.6 % Eosinophils (%) (Auto) 3.5 % Basophils (%) (Auto) 0.2 % Neutrophils # (Auto) 9.12 1.4-6.5 K/uL Lymphocytes # (Auto) 1.50 1.2-3.4 K/uL Monocytes # (Auto) 0.54 0.11-0.59 K/uL Eosinophils # (Auto) 0.41 0-0.5 K/uL Basophils # (Auto) 0.02 0-0.2 K/uL RDW Standard Deviation 51.9 36.4-46.3 fL RDW Coefficient of Variation 14.6 11.5-14.5 % Immature Granulocyte % (Auto) 0.3 % Immature Granulocyte # (Auto) 0.03 0.00-0.02 K/uL Prothrombin Time 11.0 9.0-12.0 SECONDS Prothromb Time International Ratio 1.0 0.9-1.1 Activated Partial Thromboplast Time 23.1 21.0-31.0 SECONDS Partial Thromboplastin Ratio 0.9 Sodium Level 142 136-145 mmol/L Potassium Level 3.9 3.5-5.1 mmol/L Chloride Level 96 98-107 mmol/L Carbon Dioxide Level 41 21-32 mmol/L Anion Gap 5.0 3-11 mmol/L Blood Urea Nitrogen 42 7-18 mg/dl Creatinine 1.50 0.60-1.20 mg/dl Est Creatinine Clear Calc Drug Dose 46.5 ml/min Estimated GFR () 41.1 Estimated GFR (Non- 35.4 BUN/Creatinine Ratio 27.7 10-20 Random Glucose 134 70-99 mg/dl Calcium Level 9.4 8.5-10.1 mg/dl Bedside Troponin I 0.000 0-0.045 ng/ml [id number] Natriuretic Peptide 188 0-900 pg/ml Arterial Blood pH 7.37 7.35-7.45 Arterial Blood Partial Pressure CO2 68 35-46 mmHg Arterial Blood Partial Pressure O2 76 80-95 mm/Hg Arterial Blood HCO3 39 19-24 mmol/L Arterial Blood Oxygen Saturation 94.1 90-95 % Arterial Blood Base Excess 11.5 -9-1.8 mEq/L Arterial Blood Gas Delivery 2L Alvaro Test POS POS Diagnostic Radiology CXR IMPRESSION: No significant change compared to the prior study. No acute process. Impression Assessment and Plan ACUTE ON CHRONIC HYPOXIC HYPERCAPNIC RESPIRATORY FAILURE COPD EXACERBATION - admit to med/surg - patient presenting with increasing shortness of breath x 10 days; has has recent admission / multiple admissions for the same - patient with history of non compliance, missed multiple clinic appointments - currently saturating well on 3L - ABG shows compensated respiratory acidosis - around the clock nebs, IV steroids - continue home Advair - CXR clear, afebrile, no productive cough; will hold on antibiotics for now - pulmonary consult - had BLLE dopplers during last admission that were negative; if does not improve with above treatments, could consider imaging for PE HTN - BP controlled, continue Losartan and metoprolol PAROXYSMAL AFIB - currently in NSR - rate controlled on beta sandra, rhythm controlled on propafenone - not anticoagulated DIASTOLIC CHF - due to underlying COPD - appears euvolemic - continue Bumex CKD STAGE IV - baseline creat runs in the mid 1's - creat noted to be 1.5 today - continue to monitor, avoid nephrotoxic agents when able HYPOTHYROIDISM - continue levothyroxine CHRONIC ANEMIA - due to CKD - hgb at baseline, no signs of bleeding DVT PROPHYLAXIS - SQ Heparin CODE STATUS - Patient is a DNR as per my discussion with her. DISPO - In my clinical judgment this beneficiary meets acute admission criteria, established by [facility], that includes being hospitalized through two midnights. I have seen, examined and discussed this patient with Kady Doherty and I agree with the above note. Patient presents with worsening SOB. Outpatient chart review shows that patient misses all hospital discharge follow up appointment. Patient has missed Pulmonary appointments >7times. Vitals reviewed. PE: General- awake; alert; NAD Eyes- EOMI; no scleral icterus Neck- no stridor; large circumference Lungs- diffuse expiratory rubs and wheezes Heart- mildly tachycardic; regular rhythm Abdomen- soft; NT; obese; nBS Back- no gross abnormalities Extremities- no c/c/e; no deformity Neuro- no focal deficits Skin- no appreciable rash Labs, imaging and EKG reviewed. COPD exacerbation: CXR stable and no e/o pneumonia. Patient with chronic nonproductive cough. Check flu swab. Continue nebulizers and steroid. Pulmonary consult. Continue remainder home medications as per recent discharge summary. Agree with remainder of plan as outlined above. VTE Prophylaxis VTE Risk Assessment Done? Y/N: Yes Risk Level: Moderate
[2016-09-28] MEDS: ALBUT/IPRATROP 3MG/0.5MG NEB 3 ML VIAL INH SCH ×2 (15:00→19:41)
[2016-09-28 15:35] VITALS: BP 162/79; PULSE 108; TEMP 36.7; O2SAT 96
[2016-09-28 16:01] LABS: INFLUENZA A PCR Neg for Influ A (NEG); INFLUENZA B PCR Neg for Influ B (NEG)
[2016-09-28] MEDS ORDERED: FERR1TAB13 PO (16:08)
--- NOTE | 2016-09-28 16:57 | EMERGENCY ROOM VISIT NOTE ---
History Report prepared by [place]: Esme Roberts Under the Supervision of: Dr. Harpal Reece M.D. First contact with patient: 10:42 Chief Complaint: RESPIRATORY DISTRESS Stated Complaint: SHORTNESS OF BREATH Nursing Triage Summary: pt to the ED via EMS with c/o SOB x 1 wk hx asthma, CHF. pt wears 1 liter NC at home and 2 with activity. pt had no complaints of chest pain upon arrival and then c/o left upper after a coughing spell, where she coughed up clear sputum. History of Present Illness The patient is a 66 year old female who presents to the Emergency Room with complaints of persistent shortness of breath for the past several days. She also complains of a nonproductive cough for the past 2 or 3 days. She occasionally has a sharp chest pain after she coughs which lasts about a minute. She was admitted to the hospital on September 14 for respiratory failure and was discharged on Prednisone. She notes that she used to be on 4L oxygen, but during her hospital admission her street department dispatcher brought her down to 1L oxygen. Her doctor increased it to 2 L over the phone but she still feels short of breath. She feels that she would have some improvement in her breathing difficulties if she was on more oxygen. The patient is a former smoker. Denies fever, runny nose, vomiting, leg swelling/pain, or other complaints. She has a history of COPD, chronic right sided heart failure, chronic renal insufficiency, anemia, and obesity hypoventilation syndrome. Source of History: patient Onset: several days ago Position: other (global) Quality: other (shortness of breath) Timing: other (persistent) Associated Symptoms: + chest pain (after coughing), + cough (nonproductive) , No fevers, No vomiting Review of Systems See HPI for pertinent positives & negatives. A total of 10 systems reviewed and were otherwise negative. Past Medical & Surgical Medical Problems: (1) CHF (congestive heart failure) (2) CKD (chronic kidney disease), stage IV (3) COPD (chronic obstructive pulmonary disease) (4) Depression (5) Dyslipidemia (6) GERD (gastroesophageal reflux disease) (7) HTN (hypertension) (8) EVONNE (iron deficiency anemia) (9) Myocardial infarction (10) Paroxysmal a-fib Surgical Problems: (1) History of appendectomy (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 (4) Hx of cholecystectomy (5) S/P cervical spinal fusion (6) S/P wrist surgery Family History Diabetes mellitus MOTHER FH: CAD (coronary artery disease) MOTHER SISTER Social History Smoking Status: Former Smoker Alcohol Use: none Drug Use: none Marital Status: single Housing Status: lives with family Occupation Status: retired Current/Historical Medications Scheduled Allopurinol (Zyloprim), 300 MG PO DAILY Aspirin (Aspirin Ec), 81 MG PO DAILY Atorvastatin (Lipitor), 20 MG PO DAILY Bumetanide (Bumetanide), 1 MG PO BID Ferrous Sulfate (Kp Ferrous Sulfate), 1 TAB PO DAILY Fluticasone Prop/Salmeterol (Advair Diskus 500/50 60 Dose), 1 PUFFS INH BID Gabapentin (Neurontin), 300 MG PO TID Lactobacillus Acidophilus (Lactinex), 1 TAB PO TID Levothyroxine Sodium (Synthroid), 88 MCG PO DAILY Losartan Potassium (Losartan Potassium), 50 MG PO QAM Metoprolol Succinate (Toprol Xl), 50 MG PO DAILY Multivitamins/Minerals (Certavite/Antioxidants), 1 TAB PO DAILY Potassium Ext Rel (Klor-Con), 20 MEQ PO Q2D Propafenone Hcl (Propafenone Hcl), 150 MG PO TID Ranitidine (Zantac), 150 MG PO BID Scheduled PRN Acetaminophen (Tylenol), 650 MG PO Q4H PRN for Pain or Fever Albuterol Sulf (Proventil 0.083% 2.5MG/3ML), 2.5 MG INH QID PRN for SOB/Wheezing Ipratropium-Albuterol (Combivent Respimat), 1 PUFFS INH QID PRN for sob/wheezing Allergies Coded Allergies: Adhesives (Verified Allergy, Severe, RED RASH, 09/28/16) Latex1 -Allergic Contact Dermititis (Verified Adverse Reaction, Mild, TAPE -SORE, 09/28/16) Morphine (Verified Adverse Reaction, Mild, DELUSIONS, 09/28/16) Physical Exam Vital Signs Date Time Temp Pulse Resp B/P Pulse Ox O2 Delivery O2 Flow Rate FiO2 09/28/16 12:13 91 24 109/76 98 Nebulizer 09/28/16 11:32 89 20 92 Nasal Cannula 2.0 09/28/16 10:34 Nasal Cannula 4.0 09/28/16 10:24 95 Nasal Cannula 4.0 09/28/16 10:24 36.8 94 36 148/54 95 4.0 09/28/16 10:24 90 Physical Exam Constitutional: Vital signs reviewed. Eyes: Pupils are equal round reactive to light. Conjunctiva are noninjected. ENT: Pharynx is clear without erythema or exudate. Mucous membranes are moist. Neck supple without meningeal signs. Respiratory: Bibasilar rales and diffuse expiratory wheezing to auscultation. Breath sounds are equal bilaterally. Cardiovascular: Regular rate and rhythm. No rubs or gallops. GI: Soft, nondistended and nontender. Bowel sounds are present. Musculoskeletal: No lower extremity tenderness. Integumentary: No cyanosis. Neurological: The patient is awake and alert. No focal deficits. Psychiatric: Normal affect. Medical Decision & Procedures ER Provider Diagnostic Interpretation: Radiology results as stated below per my review and the radiologist's interpretation: CHEST ONE VIEW PORTABLE HISTORY: cough eval for pna COMPARISON: Chest 09/13/2016. FINDINGS: Mild diffuse interstitial thickening is likely chronic. No new focal lung consolidations to suggest pneumonia. Stable mild cardiomegaly. No evidence for pulmonary edema. No pleural effusions. No pneumothorax. Right shoulder prosthesis. Evidence for prior thoracic spine vertebroplasty. Stable linear scarlike density at the left lung base. IMPRESSION: No significant change compared to the prior study. No acute process. Electronically signed by: Henry Bourne M.D. 09/28/2016 11:44 AM Dictated Date/Time: 09/28/2016 11:42 AM Laboratory Results 09/28/16 11:20 Red Blood Count 3.06, Mean Corpuscular Volume 98.0, Mean Corpuscular Hemoglobin 30.7, Mean Corpuscular Hemoglobin Concent 31.3, Mean Platelet Volume 8.5, Neutrophils (%) (Auto) 78.5, Lymphocytes (%) (Auto) 12.9, Monocytes (%) (Auto) 4.6, Eosinophils (%) (Auto) 3.5, Basophils (%) (Auto) 0.2, Neutrophils # (Auto) 9.12, Lymphocytes # (Auto) 1.50, Monocytes # (Auto) 0.54, Eosinophils # (Auto) 0.41, Basophils # (Auto) 0.02 09/28/16 11:20 Test 09/28/16 11:20 09/28/16 11:25 09/28/16 12:50 White Blood Count 11.62 K/uL (4.8-10.8) Red Blood Count 3.06 M/uL (4.2-5.4) Hemoglobin 9.4 g/dL (12.0-16.0) Hematocrit 30.0 % (37-47) Mean Corpuscular Volume 98.0 fL (80-100) Mean Corpuscular Hemoglobin 30.7 pg (25-34) Mean Corpuscular Hemoglobin Concent 31.3 g/dl (32-36) Platelet Count 209 K/uL (130-400) Mean Platelet Volume 8.5 fL (7.4-10.4) Neutrophils (%) (Auto) 78.5 % Lymphocytes (%) (Auto) 12.9 % Monocytes (%) (Auto) 4.6 % Eosinophils (%) (Auto) 3.5 % Basophils (%) (Auto) 0.2 % Neutrophils # (Auto) 9.12 K/uL (1.4-6.5) Lymphocytes # (Auto) 1.50 K/uL (1.2-3.4) Monocytes # (Auto) 0.54 K/uL (0.11-0.59) Eosinophils # (Auto) 0.41 K/uL (0-0.5) Basophils # (Auto) 0.02 K/uL (0-0.2) RDW Standard Deviation 51.9 fL (36.4-46.3) RDW Coefficient of Variation 14.6 % (11.5-14.5) Immature Granulocyte % (Auto) 0.3 % Immature Granulocyte # (Auto) 0.03 K/uL (0.00-0.02) Prothrombin Time 11.0 SECONDS (9.0-12.0) Prothromb Time International Ratio 1.0 (0.9-1.1) Activated Partial Thromboplast Time 23.1 SECONDS (21.0-31.0) Partial Thromboplastin Ratio 0.9 Anion Gap 5.0 mmol/L (3-11) Est Creatinine Clear Calc Drug Dose 46.5 ml/min Estimated GFR () 41.1 Estimated GFR (Non- 35.4 BUN/Creatinine Ratio 27.7 (10-20) Calcium Level 9.4 mg/dl (8.5-10.1) Bedside Troponin I 0.000 ng/ml (0-0.045) BC-Eyt-N-Type Natriuretic Peptide 188 pg/ml (0-900) Arterial Blood pH 7.37 (7.35-7.45) Arterial Blood Partial Pressure CO2 68 mmHg (35-46) Arterial Blood Partial Pressure O2 76 mm/Hg (80-95) Arterial Blood HCO3 39 mmol/L (19-24) Arterial Blood Oxygen Saturation 94.1 % (90-95) Arterial Blood Base Excess 11.5 mEq/L (-9-1.8) Arterial Blood Gas Delivery 2L Alvaro Test POS (POS) Laboratory results as reviewed by me. ECG Indication: SOB/dyspnea Rate (beats per minute): 86 Rhythm: normal sinus Findings: no ectopy, other (nonspecific ST-T wave changes) ED Course 1045: The patient was evaluated in room C2. A complete history and physical exam was performed. 1101: Ordered Solu-Medrol 125 mg IV. 1115: Ordered DuoNeb 12 ml INH. 1217: I reassessed the patient. She was still feeling short of breath on the nebulizer. She had wheezing bilaterally. 1221: I discussed the case with EVELYN [facility]. The patient will be evaluated for further management. Medical Decision This is a 66-year-old female presents with shortness of breath. Differential diagnosis includes COPD exacerbation, pneumonia, bronchitis, pneumothorax, CHF, pulmonary edema. I did perform a limited focused review of portions of the patient's old chart on the electronic medical record. She was admitted September 14 for respiratory failure and was discharged on Prednisone. She has a history of COPD, chronic right sided heart failure, chronic renal insufficiency, anemia , and obesity hypoventilation syndrome. I did evaluate the patient as noted above. The patient was placed on a continuous bus driver/monitor. I did treat patient with a continuous hour-long nebulizer. She was given Solu-Medrol IV in the ambulance. I did order and personally review the patient's 12-lead EKG and chest x-ray as described above. I did order and review the patient's blood work as noted in the electronic medical record. She does have hypercarbia and hypoxia on arterial blood gas. I did reassess the patient. She is still wheezing. Her O2 saturation is 98% on 4 L. I did recommend hospitalization for further care and evaluation. I did discuss the case with the hospitalist and corrections caseworker. Consults Time Called: 1218 Consulting Physician: [facility] Returned Call: 1221 I discussed the case with her. The patient will be evaluated for further management. Impression Primary Impression: COPD exacerbation Additional Impressions: Hypoxia Anemia Hypercarbia Scribe Attestation The scribe's documentation has been prepared under my direct and personally reviewed by me in its entirety. I confirm that the note above accurately reflects all work, treatment, procedures, and medical decision making performed by me. Departure Information Dispostion Being Evaluated By Hospitalist Referrals Babak Melendez M.D.([facility]) (PCP) Patient Instructions Asthma - [facility], COPD - [facility], Croup - [facility], My [facility] Problem Qualifiers Additional Impressions: Anemia Anemia type: unspecified type Qualified Codes: D64.9 - Anemia, unspecified
[2016-09-28] MEDS ORDERED: METO1TAB66 PO (17:20)
[2016-09-28] MEDS ORDERED: NRN/300 PO (17:20)
[2016-09-28] MEDS ORDERED: ATOR-54 PO (18:07)
[2016-09-28] MEDS ORDERED: CNT PO (18:07)
[2016-09-28] MEDS ORDERED: ASPI81TA28 PO (18:08)
[2016-09-28] MEDS: METHYLPREDNISOLONE IV 40 MG in SYRINGE 0 ML IV SCH (18:44)
[2016-09-28 19:42] VITALS: PULSE 102; O2SAT 96
[2016-09-28] MEDS ORDERED: LEVO88TA PO (20:02)
[2016-09-28] MEDS ORDERED: ALLO300T2 PO (20:14)
[2016-09-28] MEDS: FLUTICASONE/SALMETEROL (ADVAIR) 500/50 INH 14 PUFF INH SCH (20:19)
[2016-09-28] MEDS: PROPAFENONE HCL 150 MG TAB PO SCH (20:20)
[2016-09-28] MEDS: GABAPENTIN 300 MG CAP PO SCH (20:33)
[2016-09-28] MEDS: RANITIDINE HCL 150 MG TAB PO SCH (20:34)
[2016-09-28] MEDS: BUMETANIDE 1 MG TAB PO SCH (20:34)
[2016-09-28] MEDS: LACTOBACILLUS ACIDOPHILUS (FLORANEX) TAB PO SCH (20:34)
[2016-09-28] MEDS: HEPARIN SOD 5000 UNIT/0.5 ML CARP SQ SCH (20:37)
[2016-09-28] MEDS: TRAMADOL HCL 50 MG TAB PO PRN (22:19)
[2016-09-28] MEDS ORDERED: ZNTT/150 PO (22:32)
[2016-09-28] MEDS ORDERED: PROP150T PO (23:26)
[2016-09-28 23:34] VITALS: BP 163/84; PULSE 95; TEMP 36.9; O2SAT 94
[2016-09-28 23:54] VITALS: BP 145/84; PULSE 95; TEMP 36.9; O2SAT 96; Ht 162.6 cm; Wt 123.0 kg
[2016-09-29] VITALS (13 sets, daily range): BP systolic 120–183; BP diastolic 67–83; PULSE 89–101; TEMP 36.1–36.8; O2SAT 94–99
[2016-09-29] MEDS ORDERED: HYDROmorphone INJ 0.5 MG/0.5 ML SYR IV PRN (01:15)
[2016-09-29] MEDS: METHYLPREDNISOLONE IV 40 MG in SYRINGE 0 ML IV SCH ×2 (01:38→10:07)
[2016-09-29] MEDS: OXYCODONE/ACETAMINOPHEN 5-325 TAB PO PRN ×3 (01:38→16:10)
[2016-09-29] MEDS: ALBUT/IPRATROP 3MG/0.5MG NEB 3 ML VIAL INH SCH ×4 (01:56→18:48)
[2016-09-29] MEDS: LEVOTHYROXINE 88 MCG TAB PO SCH (06:06)
[2016-09-29 06:35] LABS: HEMATOCRIT 30.9 % (37-47); MEAN CELL VOLUME 98.1 fL (80-100); MEAN CORPUSCULAR HEMOGLOBIN 31.4 pg (25-34); PLATELET COUNT 239 K/uL (130-400); RED BLOOD COUNT 3.15 M/uL (4.2-5.4); WHITE BLOOD COUNT 11.14 K/uL (4.8-10.8)
[2016-09-29 07:10] LABS: BUN/CREATININE RATIO 27.5 (10-20); CALCIUM 9.3 mg/dl (8.5-10.1); CREATININE 1.5 mg/dl (0.60-1.20); POTASSIUM 4.4 mmol/L (3.5-5.1)
[2016-09-29] MEDS: ATORVASTATIN 20 MG TAB PO SCH (07:42)
[2016-09-29] MEDS: ASPIRIN 81 MG ECTAB PO SCH (07:42)
[2016-09-29] MEDS: FLUTICASONE/SALMETEROL (ADVAIR) 500/50 INH 14 PUFF INH SCH ×2 (07:42→21:03)
[2016-09-29] MEDS: FERROUS SULFATE 325 MG TAB PO SCH (07:42)
[2016-09-29] MEDS: LACTOBACILLUS ACIDOPHILUS (FLORANEX) TAB PO SCH ×3 (07:42→21:05)
[2016-09-29] MEDS: LOSARTAN POTASSIUM 50 MG TAB PO SCH (07:42)
[2016-09-29] MEDS: METOPROLOL SUCC 50MG EXT REL TAB PO SCH (07:42)
[2016-09-29] MEDS: PROPAFENONE HCL 150 MG TAB PO SCH ×3 (07:43→21:04)
[2016-09-29] MEDS: GABAPENTIN 300 MG CAP PO SCH ×3 (07:43→21:05)
[2016-09-29] MEDS: RANITIDINE HCL 150 MG TAB PO SCH ×2 (07:43→21:05)
[2016-09-29] MEDS: ALLOPURINOL 300 MG TAB PO SCH (07:43)
[2016-09-29] MEDS: CEROVITE ADV FORMULA TAB PO SCH (07:43)
[2016-09-29] MEDS: POTASSIUM CHLORIDE 20 MEQ TABCR PO SCH (07:44)
[2016-09-29] MEDS: BUMETANIDE 1 MG TAB PO SCH ×2 (07:44→16:11)
[2016-09-29] MEDS: HEPARIN SOD 5000 UNIT/0.5 ML CARP SQ SCH ×2 (07:54→21:12)
--- NOTE | 2016-09-29 07:57 | PULMONARY CONSULTATION ---
DATE OF CONSULTATION: 09/29/2016 HISTORY OF PRESENT ILLNESS: The patient is a 66-year-old female who was readmitted to [facility] after being discharged on 09/16/2016. She had significant shortness of breath at home associated with some mild peripheral edema and was brought to the Emergency Room. She carries a history of chronic obstructive lung disease with about a [id number] history of cigarette smoking, she did quit in 2009. There is also a history of heart failure. She was to be using 4 liters of oxygen with BiPAP. I reviewed the neurophysiology study from 2015. She had a split study at that time, required BiPAP 06/16 with 4 liters of oxygen. Apparently, she has only been using 1 liter. Nonetheless, she did use her inhalers, had worsening shortness of breath over a several-day period of time with a nonproductive cough for 2-3 days. She had some mild orthopnea. She states she is able to take a bath or shower but has difficulty with doing the rest of her chores, her daughter has been doing that. She was discharged on prednisone, continued to feel shortness of breath, was seen by Dr. Reece in the Emergency Room. Her oxygen saturation is 95% on 4 liters. Her blood pressure is 148/54, pulse is 94 and regular, respiratory rate was 36 upon admission to the Emergency Room. After nebulizer treatment, it came down to 20 at 11 30 on the morning of 09/28/2016. I have been asked to evaluate her from a pulmonary standpoint. Presently, the patient is on BiPAP and states she feels considerably improved. She denies any chest pain, significant pain in the calves or thighs, has not had any fevers or night sweats or any exposures. She has not had any aspiration. She has been active at home but limited because of severe dyspnea. She generally follows up with Dr. Jimenez as an outpatient. Her review of systems is otherwise unremarkable. She has been hospitalized multiple times here since June. She also has a 6 mm nodule by CAT scan in the right upper lobe, needs a repeat CT scan in about 9 months. PAST MEDICAL HISTORY: Significant for severe chronic obstructive lung disease, obesity-hypoventilation syndrome, congestive heart failure, hypertension, stage IV chronic kidney disease, GERD, coronary artery disease, paroxysmal atrial fibrillation, gout, 6 mm nodule in the right upper lobe. She has also had fractures of the right ribs. SURGICAL HISTORY: She has had hip surgery on the right side, appendectomy, cholecystectomy, cervical spine surgery, oophorectomy and vertebroplasty for a T11 fracture. SOCIAL HISTORY: She has about a [id number] history of cigarette smoking, quit 2009. She is not an alcohol user. 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 ALLERGIES: SHE IS ALLERGIC TO MORPHINE, CAUSES CONFUSION. ALSO HAS ALLERGIES TO LATEX AND ADHESIVES WHICH CAUSE RASH. FAMILY HISTORY: She has 1 sister who is from an [place]. Her mother is from coronary artery disease and diabetes. Her father had heart disease and from a motor vehicle accident. Her daughter helps to care for her at home. MEDICATIONS: Noted. REVIEW OF SYSTEMS: Otherwise is unremarkable. PHYSICAL EXAMINATION: VITAL SIGNS: Stable. Her oxygen saturation on BiPAP is 97% on 4 liters, pulse 90, respiratory rate 18, blood pressure 145/84, and she is afebrile. Her weight is 123 kilograms. She was 125 kilograms on 09/13/2016 during her last hospitalization, so she has lost about 4 pounds or so. HEENT: Reveals marked amount of redundant tissue in the posterior pharynx, large tongue, small posterior pharyngeal opening, with normal mandible and TM joints. No thrush is noted. NECK: No adenopathy is noted. Thyroid nonpalpable. Carotid upstroke good. Expansion of the thorax is fairly good with deep inspiration, although she is massively obese. HEART: Regular rate and rhythm. Second heart sound normal. No murmurs are heard. LUNGS: Reveal markedly decreased breath sounds bilaterally, otherwise are clear. ABDOMEN: Soft and massively obese, nontender. EXTREMITIES: She has no cyanosis, clubbing or edema. No clinical evidence of DVT is noted. EKG reveals normal sinus rhythm with nonspecific ST-T wave changes and some baseline artifact in lead V6. Her chest x-ray reveals some mild cardiomegaly with some linear atelectatic changes at the left base. The patient did have an arterial blood gas at the time of admission which revealed a pH of 7.37, pCO2 of 68, pO2 of 76 on 2 liters. Influenza A and B PCR negative. CO2 on electrolytes is 41 with BUN of 42, creatinine of 1.5, sugar of 130. BNP was 188. Troponin and coagulation profiles were unremarkable. IMPRESSION: 1. Respiratory failure with hypercapnia and hypoxemia related to end-stage lung disease. 2. Severe chronic obstructive pulmonary disease with exacerbation. 3. Coronary artery disease. 4. Massive obesity. 5. Obstructive sleep apnea with hypoventilation syndrome. RECOMMENDATIONS: 1. Continue on BiPAP each time she sleeps. I would recommend adding an S/T rate to the BiPAP of about 10 respirations per minute. They may help to improve her CO2 when she is sleeping. It appears that 2 liters of oxygen is appropriate for her at rest since her pO2 was 76 on arterial blood gas yesterday. Overnight oximetry may be helpful to ascertain whether she will need more than that now on BiPAP. 2. Continue with her other medications, institute a strict weight reduction diet. She is on Percocet and Dilaudid, may not need both of those medications. 3. Good DVT prophylaxis with SCDs and heparin. 4. Continue on the Advair 500/50 one inhalation b.i.d. and I believe the methylprednisone could be changed to prednisone 40 mg daily. She appears to be a GOLD classification 4. 5. Add DuoNeb by way of nebulizer and I will make that 4 times a day and then q. 4 hours p.r.n. Thanks for asking me to evaluate Ms. Lee and I will be glad to follow along with you during her hospital stay.
--- NOTE | 2016-09-29 11:10 | Progress Note ---
Internal Med Progress Note Date of Service: Sep 29, 2016. Provider Documentation: SUBJECTIVE: Patient is doing better Says she has to be on 4 Litres oxygen as she gets SOB otherwise. Denies any new cough , sputum production worsening. No chest pain, fever, chills , nausea, vomiting, abdominal pain OBJECTIVE: Vital Signs-as noted below Exam: General-AAOX3, not in distress Lungs-AEBE decreased, no wheezes, rales Heart-S1 and S2 heard, Regular rate and rhythm no murmurs Abdomen-Soft , non tender, non distended, BS present Extremities-No edema no erythema Lab data as noted below. ASSESSMENT & PLAN: ACUTE ON CHRONIC HYPOXIC HYPERCAPNIC RESPIRATORY FAILURE COPD EXACERBATION Patient was discharged on 09/16/16 for similar symptoms, likely secondary to not using her BIPAP with correct settings, sent home on 1 L oxygen at rest/BIPAP 14/ 6 settings with 4 L (requirement was confirmed after continuous pulse oximetry monitoring and d/w pulmonary during last admission). Came back with increasing SOB x 10 days, says using her BIPAP/1 L oxygen . Has had multiple admissions for same. She is also known to be non compliant, missing multiple clinic appointments -Currently 94% on 4 Litres. -Duonebs, Advair BID , IV solumedrol---> Prednisone 40 mg daily (was already on a taper prior to admission) -Work up- ABG shows compensated respiratory acidosis ; CXR clear, afebrile, no productive cough; will hold on antibiotics for now; US last admission- negative for DVT -Pulmonary consulted.- appreciate inputs. Recommending 2 L oxygen during day time (per her needs here), BIPAP - recommends adding S/T rate with 10 respirations per minute HTN - BP controlled, continue Losartan and metoprolol PAROXYSMAL AFIB - currently in NSR - rate controlled on beta sandra, rhythm controlled on propafenone - not anticoagulated DIASTOLIC CHF - due to underlying COPD - appears euvolemic - continue Bumex CKD STAGE IV - baseline creat runs in the 1.5-1.7 range - Near baseline - continue to monitor, avoid nephrotoxic agents when able HYPOTHYROIDISM - continue levothyroxine CHRONIC ANEMIA - due to CKD - hgb at baseline, no signs of bleeding DVT PROPHYLAXIS - SQ Heparin CODE STATUS - Patient is a DNR as per my discussion with her. DISPO Expected discharge at home when stable Vital Signs: Date Time Temp Pulse Resp B/P Pulse Ox O2 Delivery O2 Flow Rate FiO2 09/29/16 08:12 98 Room Air 09/29/16 08:00 Nasal Cannula 4.0 09/29/16 07:59 92 18 94 Nasal Cannula 4.0 09/29/16 07:26 36.8 94 20 125/70 96 Nasal Cannula 4.0 09/29/16 01:57 91 18 97 BiPAP/CPAP 4.0 09/29/16 01:56 91 97 4.0 09/29/16 00:08 96 95 4.0 09/29/16 00:00 94 Nasal Cannula 4.0 09/28/16 23:54 36.9 95 20 145/84 96 Nasal Cannula 4.0 09/28/16 23:34 36.9 95 20 163/84 94 Nasal Cannula 4.0 09/28/16 19:42 102 20 96 Nasal Cannula 4.0 09/28/16 15:35 36.7 108 20 162/79 96 4.0 09/28/16 13:59 103 22 146/64 93 4.0 09/28/16 13:46 101 09/28/16 12:13 91 24 109/76 98 Nebulizer 09/28/16 11:32 89 20 92 Nasal Cannula 2.0 Lab Results: Results Past 24 Hours Test 09/28/16 11:25 09/28/16 12:50 09/28/16 13:05 09/29/16 06:05 Range/Units Bedside Troponin I 0.000 0-0.045 ng/ml HQ-Jhj-I-Type Natriuretic Peptide 188 0-900 pg/ml Arterial Blood pH 7.37 7.35-7.45 Arterial Blood Partial Pressure CO2 68 35-46 mmHg Arterial Blood Partial Pressure O2 76 80-95 mm/Hg Arterial Blood HCO3 39 19-24 mmol/L Arterial Blood Oxygen Saturation 94.1 90-95 % Arterial Blood Base Excess 11.5 -9-1.8 mEq/L Arterial Blood Gas Delivery 2L Alvaro Test POS POS Influenza Type A (RT-PCR) Neg for Influ A NEG Influenza Type B (RT-PCR) Neg for Influ B NEG White Blood Count 11.14 4.8-10.8 K/uL Red Blood Count 3.15 4.2-5.4 M/uL Hemoglobin 9.9 12.0-16.0 g/dL Hematocrit 30.9 37-47 % Mean Corpuscular Volume 98.1 80-100 fL Mean Corpuscular Hemoglobin 31.4 25-34 pg Mean Corpuscular Hemoglobin Concent 32.0 32-36 g/dl RDW Standard Deviation 50.6 36.4-46.3 fL RDW Coefficient of Variation 14.2 11.5-14.5 % Platelet Count 239 130-400 K/uL Mean Platelet Volume 9.0 7.4-10.4 fL Sodium Level 140 136-145 mmol/L Potassium Level 4.4 3.5-5.1 mmol/L Chloride Level 95 98-107 mmol/L Carbon Dioxide Level 40 21-32 mmol/L Anion Gap 5.0 3-11 mmol/L Blood Urea Nitrogen 41 7-18 mg/dl Creatinine 1.50 0.60-1.20 mg/dl Est Creatinine Clear Calc Drug Dose 46.5 ml/min Estimated GFR () 41.1 Estimated GFR (Non- 35.4 BUN/Creatinine Ratio 27.5 10-20 Random Glucose 210 70-99 mg/dl Calcium Level 9.3 8.5-10.1 mg/dl
[2016-09-29] MEDS: TRAMADOL HCL 50 MG TAB PO PRN (21:20)
[2016-09-30] VITALS (12 sets, daily range): BP systolic 100–132; BP diastolic 53–75; PULSE 79–90; TEMP 36.4–36.5; O2SAT 92–99
[2016-09-30] MEDS: ALBUT/IPRATROP 3MG/0.5MG NEB 3 ML VIAL INH SCH ×4 (01:26→19:56)
[2016-09-30] MEDS: LEVOTHYROXINE 88 MCG TAB PO SCH (06:26)
[2016-09-30] MEDS: TRAMADOL HCL 50 MG TAB PO PRN ×2 (06:27→20:42)
--- NOTE | 2016-09-30 06:46 | PULMONARY PROGRESS NOTE ---
DATE: 09/30/2016 The patient is stable this morning. She slept fairly well last night, has not had any cough or chest pain. States she feels better than she did at the time of admission. She denies any aspiration, nausea or vomiting. According to nurses' notes, she did well with the CPAP. VITAL SIGNS: Stable and she is afebrile. Oxygen saturation 94% on CPAP/BiPAP. Her blood pressure is 114/71. Her weight was 123 kilograms on 09/28/2016. MEDICATIONS: Reviewed. PHYSICAL EXAMINATION: HEENT: Posterior pharynx shows a small posterior pharynx with no evidence of thrush. Tongue protrudes in the midline. Soft palate is unremarkable. NECK: No neck vein distention or HJR, although she is massively obese. HEART: Regular rate and rhythm. Second heart sound I thought was normal. LUNGS: Reveal decreased breath sounds, otherwise are clear. ABDOMEN: Soft and obese, nontender. EXTREMITIES: She has no cyanosis, clubbing or edema. LABORATORY DATA: White count was 11.1 yesterday with hemoglobin of 9.9. CO2 is 40 on the electrolytes with a BUN of 41 and creatinine of 1.5, which is stable. Sugar was 210. IMPRESSION: 1. Chronic obstructive lung disease with exacerbation. 2. Respiratory failure. 3. Hypoventilation syndrome. The patient was out of bed yesterday most of the day. RECOMMENDATIONS: 1. Taper the prednisone 30 mg daily with a taper over several weeks now. 2. Weight reduction. 3. Continue with her Advair and use DuoNeb as needed. 4. Continue on BiPAP at night. Overall, today she is stable.
[2016-09-30] MEDS: FLUTICASONE/SALMETEROL (ADVAIR) 500/50 INH 14 PUFF INH SCH ×2 (08:00→20:42)
[2016-09-30] MEDS: HEPARIN SOD 5000 UNIT/0.5 ML CARP SQ SCH ×2 (09:02→20:47)
[2016-09-30] MEDS: PROPAFENONE HCL 150 MG TAB PO SCH ×3 (09:04→20:44)
[2016-09-30] MEDS: ALLOPURINOL 300 MG TAB PO SCH (09:04)
[2016-09-30] MEDS: BUMETANIDE 1 MG TAB PO SCH ×2 (09:04→16:36)
[2016-09-30] MEDS: ATORVASTATIN 20 MG TAB PO SCH (09:04)
[2016-09-30] MEDS: ASPIRIN 81 MG ECTAB PO SCH (09:04)
[2016-09-30] MEDS: LOSARTAN POTASSIUM 50 MG TAB PO SCH (09:05)
[2016-09-30] MEDS: CEROVITE ADV FORMULA TAB PO SCH (09:05)
[2016-09-30] MEDS: RANITIDINE HCL 150 MG TAB PO SCH ×2 (09:05→20:43)
[2016-09-30] MEDS: GABAPENTIN 300 MG CAP PO SCH ×3 (09:06→20:43)
[2016-09-30] MEDS: METOPROLOL SUCC 50MG EXT REL TAB PO SCH (09:06)
[2016-09-30] MEDS: FERROUS SULFATE 325 MG TAB PO SCH (09:06)
[2016-09-30] MEDS: LACTOBACILLUS ACIDOPHILUS (FLORANEX) TAB PO SCH ×3 (09:06→20:43)
--- NOTE | 2016-09-30 16:19 | Progress Note ---
Internal Med Progress Note Date of Service: Sep 30, 2016. Provider Documentation: SUBJECTIVE: Patient is doing better. Says she has to be on 4 Litres oxygen as she gets SOB otherwise. Denies any new cough , sputum production worsening. No chest pain, fever, chills , nausea, vomiting, abdominal pain On 2 l oxygen OBJECTIVE: Vital Signs-as noted below Exam: General-AAOX3, not in distress Lungs-AEBE decreased, no wheezes, rales Heart-S1 and S2 heard, Regular rate and rhythm no murmurs Abdomen-Soft , non tender, non distended, BS present Extremities-No edema no erythema Lab data as noted below. ASSESSMENT & PLAN: ACUTE ON CHRONIC HYPOXIC HYPERCAPNIC RESPIRATORY FAILURE- Resolved COPD EXACERBATION- Improved Patient was discharged on 09/16/16 for similar symptoms, likely secondary to not using her BIPAP with correct settings, sent home on 1 L oxygen at rest/BIPAP 14/ 6 settings with 4 L (requirement was confirmed after continuous pulse oximetry monitoring and d/w pulmonary during last admission). Came back with increasing SOB x 10 days, says using her BIPAP/1 L oxygen . Has had multiple admissions for same. She is also known to be non compliant, missing multiple clinic appointments -Currently 94% on 4 Litres. -Duonebs, Advair BID , IV solumedrol---> Prednisone 30 mg daily (was already on a taper prior to admission) -Work up- ABG shows compensated respiratory acidosis ; CXR clear, afebrile, no productive cough; will hold on antibiotics for now; US last admission- negative for DVT -Pulmonary consulted.- appreciate inputs. Recommending 2 L oxygen during day time (per her needs here), BIPAP - recommends adding S/T rate with 10 respirations per minute HTN - BP controlled, continue Losartan and metoprolol PAROXYSMAL AFIB - currently in NSR - rate controlled on beta sandra, rhythm controlled on propafenone - not anticoagulated DIASTOLIC CHF - due to underlying COPD - appears euvolemic - continue Bumex CKD STAGE IV - baseline creat runs in the 1.5-1.7 range - Near baseline - continue to monitor, avoid nephrotoxic agents when able HYPOTHYROIDISM - continue levothyroxine CHRONIC ANEMIA - due to CKD - hgb at baseline, no signs of bleeding DVT PROPHYLAXIS - SQ Heparin CODE STATUS - Patient is a DNR as per my discussion with her. DISPO PT/OT recommends SNF, but patient and her daughter are refusing Vital Signs: Date Time Temp Pulse Resp B/P Pulse Ox O2 Delivery O2 Flow Rate FiO2 09/30/16 15:51 36.4 81 16 100/53 94 09/30/16 14:10 90 16 93 Nasal Cannula 2.0 09/30/16 13:54 2.0 09/30/16 08:16 36.4 81 19 132/75 92 Nasal Cannula 2.0 09/30/16 08:00 Nasal Cannula 4.0 09/30/16 07:33 81 16 92 Nasal Cannula 2.0 09/30/16 01:26 88 16 94 BiPAP/CPAP 4.0 09/30/16 01:20 36.4 79 18 114/71 96 BiPAP 4.0 09/30/16 00:00 99 Nasal Cannula 4.0 09/29/16 23:58 91 97 4.0 09/29/16 18:48 89 16 94 Nasal Cannula 4.0
[2016-10-01 01:33] VITALS: PULSE 82; O2SAT 96
[2016-10-01] MEDS: ALBUT/IPRATROP 3MG/0.5MG NEB 3 ML VIAL INH SCH ×3 (01:33→14:17)
[2016-10-01] MEDS: LEVOTHYROXINE 88 MCG TAB PO SCH (05:45)
[2016-10-01 06:11] LABS: MEAN CORPUSCULAR HEMOGLOBIN 30.4 pg (25-34); MEAN CORPUSCULAR HGB CONC 30.6 g/dl (32-36); MEAN PLATELET VOLUME 8.8 fL (7.4-10.4); PLATELET COUNT 247 K/uL (130-400); RED BLOOD COUNT 3.13 M/uL (4.2-5.4); WHITE BLOOD COUNT 12.98 K/uL (4.8-10.8)
--- NOTE | 2016-10-01 06:36 | PROGRESS NOTE ---
DATE: 10/01/2016 SUBJECTIVE: The patient is quite stable today. She states she is doing well. She had a good night last night. She has 100% compliance with CPAP. She was out of bed most of the day yesterday and states she felt fairly well. The patient would like to return home. OBJECTIVE: VITAL SIGNS: Stable. Oxygen saturation is 96-98% on two liters on BiPAP. Her blood pressure is 130/72. No weight has been done. Nurses' notes and medications were reviewed. HEENT: Unremarkable. No neck vein distention or HJR. No thrush noted. HEART: Regular rate and rhythm. No murmurs are heard. LUNGS: Reveal decreased breath sounds bilaterally, otherwise are clear. ABDOMEN: Soft and nontender. She has no tympany. EXTREMITIES: Reveal no cyanosis, clubbing or edema. LABORATORY DATA: Hemoglobin was 9.9 yesterday. It is pending for today. CO2 was 40 on the electrolytes , BUN of 41 and creatinine of 1.5. IMPRESSION: 1. Respiratory failure with hypercapnia. 2. Chronic obstructive lung disease. 3. Obstructive sleep apnea with hypoventilation syndrome. RECOMMENDATIONS: 1. Taper the prednisone fairly quickly. Apparently, the patient may be discharged today and I would suggest perhaps sending her home on 30 mg of prednisone with taper over about two weeks. 2. Weight reduction. 3. Follow up with Dr. Dickey as an outpatient in 7 to 10 days. [facility] CENTERLinda
[2016-10-01 07:01] VITALS: PULSE 77; O2SAT 100
[2016-10-01 07:56] VITALS: BP 122/75; PULSE 73; TEMP 36.6; O2SAT 99
[2016-10-01] MEDS: FLUTICASONE/SALMETEROL (ADVAIR) 500/50 INH 14 PUFF INH SCH (09:29)
[2016-10-01] MEDS: ASPIRIN 81 MG ECTAB PO SCH (09:30)
[2016-10-01] MEDS: ATORVASTATIN 20 MG TAB PO SCH (09:30)
[2016-10-01] MEDS: LACTOBACILLUS ACIDOPHILUS (FLORANEX) TAB PO SCH ×2 (09:30→14:38)
[2016-10-01] MEDS: LOSARTAN POTASSIUM 50 MG TAB PO SCH (09:30)
[2016-10-01] MEDS: GABAPENTIN 300 MG CAP PO SCH ×2 (09:30→14:38)
[2016-10-01] MEDS: CEROVITE ADV FORMULA TAB PO SCH (09:30)
[2016-10-01] MEDS: FERROUS SULFATE 325 MG TAB PO SCH (09:30)
[2016-10-01] MEDS: BUMETANIDE 1 MG TAB PO SCH (09:31)
[2016-10-01] MEDS: RANITIDINE HCL 150 MG TAB PO SCH (09:31)
[2016-10-01] MEDS: POTASSIUM CHLORIDE 20 MEQ TABCR PO SCH (09:31)
[2016-10-01] MEDS: METOPROLOL SUCC 50MG EXT REL TAB PO SCH (09:31)
[2016-10-01] MEDS: ALLOPURINOL 300 MG TAB PO SCH (09:31)
[2016-10-01] MEDS: PROPAFENONE HCL 150 MG TAB PO SCH ×2 (09:31→14:38)
[2016-10-01] MEDS: HEPARIN SOD 5000 UNIT/0.5 ML CARP SQ SCH (09:36)
--- NOTE | 2016-10-01 13:16 | Progress Note ---
Internal Med Progress Note Date of Service: Oct 01, 2016. Provider Documentation: SUBJECTIVE: Patient is doing better and eager to be discharged. Denies any new cough , sputum production worsening. No chest pain, fever, chills , nausea, vomiting, abdominal pain On 2 l oxygen OBJECTIVE: Vital Signs-as noted below Exam: General-AAOX3, not in distress Lungs-AEBE decreased, no wheezes, rales Heart-S1 and S2 heard, Regular rate and rhythm no murmurs Abdomen-Soft , non tender, non distended, BS present Extremities-No edema no erythema Lab data as noted below. ASSESSMENT & PLAN: ACUTE ON CHRONIC HYPOXIC HYPERCAPNIC RESPIRATORY FAILURE- Resolved COPD EXACERBATION- Improved Patient was discharged on 09/16/16 for similar symptoms, likely secondary to not using her BIPAP with correct settings, sent home on 1 L oxygen at rest/BIPAP 14/ 6 settings with 4 L (requirement was confirmed after continuous pulse oximetry monitoring and d/w pulmonary during last admission). Came back with increasing SOB x 10 days, says using her BIPAP/1 L oxygen . Has had multiple admissions for same. She is also known to be non compliant, missing multiple clinic appointments -Currently on 2-3 L (goal sao2 88-92%) -Duonebs, Advair BID , S/P IV solumedrol---> Prednisone 30 mg daily (was already on a taper prior to admission) taper in 2 weeks per pulmonary -Work up- ABG shows compensated respiratory acidosis ; CXR clear, afebrile, no productive cough; no antibiotics this admission; US last admission- negative for DVT -Pulmonary consulted.- appreciate inputs. Recommending 2-3 L oxygen during day time (per her needs here), BIPAP - recommends adding S/T rate with 10 respirations per minute (Settings 14/6 with 4 L oxygen) as prior to home. HTN - BP controlled, continue Losartan and metoprolol PAROXYSMAL AFIB - currently in NSR - rate controlled on beta sandra, rhythm controlled on propafenone - not anticoagulated DIASTOLIC CHF - due to underlying COPD - appears euvolemic - continue Bumex CKD STAGE IV - baseline creat runs in the 1.5-1.7 range - Near baseline - continue to monitor, avoid nephrotoxic agents when able HYPOTHYROIDISM - continue levothyroxine CHRONIC ANEMIA - due to CKD - hgb at baseline, no signs of bleeding DVT PROPHYLAXIS - SQ Heparin CODE STATUS - Patient is a DNR as per my discussion with her. DISPO PT/OT recommends SNF, but patient and her daughter are refusing Discharge home with [facility] Vital Signs: Date Time Temp Pulse Resp B/P Pulse Ox O2 Delivery O2 Flow Rate FiO2 10/01/16 09:15 Nasal Cannula 3.0 10/01/16 07:56 36.6 73 16 122/75 99 4.0 10/01/16 07:01 77 16 100 Nasal Cannula 4.0 10/01/16 01:33 82 16 96 BiPAP/CPAP 2.0 10/01/16 00:00 CPAP 09/30/16 23:57 36.5 81 20 130/72 98 2.0 09/30/16 23:42 97 2.0 09/30/16 20:47 88 118/60 95 Nasal Cannula 2.0 09/30/16 19:56 88 16 93 Nasal Cannula 2.0 09/30/16 16:10 99 Nasal Cannula 2.0 09/30/16 15:51 36.4 81 16 100/53 94 09/30/16 14:10 90 16 93 Nasal Cannula 2.0 09/30/16 13:54 2.0 Lab Results: Results Past 24 Hours Test 10/01/16 05:40 Range/Units White Blood Count 12.98 4.8-10.8 K/uL Red Blood Count 3.13 4.2-5.4 M/uL Hemoglobin 9.5 12.0-16.0 g/dL Hematocrit 31.0 37-47 % Mean Corpuscular Volume 99.0 80-100 fL Mean Corpuscular Hemoglobin 30.4 25-34 pg Mean Corpuscular Hemoglobin Concent 30.6 32-36 g/dl RDW Standard Deviation 51.3 36.4-46.3 fL RDW Coefficient of Variation 14.4 11.5-14.5 % Platelet Count 247 130-400 K/uL Mean Platelet Volume 8.8 7.4-10.4 fL
[2016-10-01] MEDS ORDERED: PRD10 PO ×2 (13:18→13:25)
--- NOTE | 2016-10-01 13:21 | Discharge Instructions ---
Discharge Instructions Date of Service Oct 01, 2016. Admission Reason for Admission: Copd Exacerbation Discharge Discharge Diagnosis / Problem: 1. COPD exacerbation Discharge Goals Goal(s): Increase independence, Improve disease control, Prevent Disease Progression Activity Recommendations Activity Limitations: resume your previous activity (as tolerated with PT/OT services) . Instructions / Follow-Up Instructions / Follow-Up MEDICATION CHANGES: 1. Prednisone ; 30 mg daily x 5 days followed by 20 mg daily x 5 days f/b 10 mg daily x 5 days OXYGEN/BIPAP 1. Oxygen 2-3 litres during day time 2. BIPAP at night time with 14/6 settings with rate of 10 respirations per minutes and with oxygen 4 L FOLLOW UP 1. With Dr Melendez on 10/05/16 at 11:[address] Dickey in 2-3 weeks. Current Hospital Diet Patient's current hospital diet: AHA Diet (Heart Healthy), Low Sodium Diet (2gm Na) Discharge Diet Recommended Diet: AHA Diet (Heart Healthy), Low Sodium Diet (2gm Na), Low Fat Diet Pending Studies Studies pending at discharge: no Medical Emergencies . Who to Call and When: Medical Emergencies: If at any time you feel your situation is an emergency, please call 911 immediately. . Non-Emergent Contact Non-Emergency issues call your: Primary Care Provider . . "Provider Documentation" section prepared by Kandy Caal. VTE Core Measure Inpt VTE Proph given/why not?: Unfractionated heparin SQ
--- NOTE | 2016-10-01 13:24 | Discharge Summary ---
Discharge Summary Date of Service Oct 01, 2016. Discharge Summary Admission Date: Sep 28, 2016 at 12:55 Discharge Date: Oct 01, 2016 Discharge Disposition: Home with services (with PT/OT) Principal Diagnosis: 1. COPD exacerbation 2. Acute on chronic hypercapnic/hypoxic respiratory failure Secondary Diagnoses/Problems: 1. HTN 2. Hypothyroidism 3. CHF, Diastolic 4. CKD-IV 5. Morbid Obesity 6. Chronic anemia Procedures: CXR BIPAP IV Steroids Consultations: Pulmonary, Dr Méndez Pending Studies/Follow-Up: Instructions / Follow-Up Instructions / Follow-Up MEDICATION CHANGES: 1. Prednisone ; 30 mg daily x 5 days followed by 20 mg daily x 5 days f/b 10 mg daily x 5 days OXYGEN/BIPAP 1. Oxygen 2-3 litres during day time 2. BIPAP at night time with 14/6 settings with rate of 10 respirations per minutes and with oxygen 4 L FOLLOW UP 1. With Dr Melendez on 10/05/16 at 11:[address] Dickey in 2-3 weeks. Medication Reconciliation New Medications: Prednisone (Prednisone) 10 Mg Tab 10 MG PO UD for 15 Days, #40 TAB Continued Medications: Acetaminophen (Tylenol) 325 Mg Tab 650 MG PO Q4H PRN for Pain or Fever, TAB Albuterol Sulf (Proventil 0.083% 2.5MG/3ML) 2.5 Mg/3 Ml Nebu 2.5 MG INH QID PRN for SOB/Wheezing, #1 EA Allopurinol (Zyloprim) 300 Mg Tab 300 MG PO DAILY, TAB Aspirin (Aspirin Ec) 81 Mg Tab 81 MG PO DAILY Atorvastatin (Lipitor) 20 Mg Tab 20 MG PO DAILY, TAB Bumetanide (Bumetanide) 1 Mg Tab 1 MG PO BID for 30 Days, #60 TAB Ferrous Sulfate (Kp Ferrous Sulfate) 325 Mg Tab 1 TAB PO DAILY for 30 Days, #30 TAB 3 Refills Fluticasone Prop/Salmeterol (Advair Diskus 500/50 60 Dose) 1 Ea Aerp 1 PUFFS INH BID for 30 Days, #1 INHALER 5 Refills Gabapentin (Neurontin) 300 Mg Cap 300 MG PO TID, CAP Ipratropium-Albuterol (Combivent Respimat) 1 Aer Aer 1 PUFFS INH QID PRN for sob/wheezing, #1 INH Lactobacillus Acidophilus (Lactinex) Tab 1 TAB PO TID, #30 TAB Levothyroxine Sodium (Synthroid) 88 Mcg Tab 88 MCG PO DAILY, TAB Losartan Potassium (Losartan Potassium) 50 Mg Tab 50 MG PO QAM for 30 Days, #30 TAB Metoprolol Succinate (Toprol Xl) 50 Mg Tab 50 MG PO DAILY, TAB Multivitamins/Minerals (Certavite/Antioxidants) 1 Tab Tab 1 TAB PO DAILY Potassium Ext Rel (Klor-Con) 20 Meq Tabcr 20 MEQ PO Q2D for 30 Days, TAB every other day Propafenone Hcl (Propafenone Hcl) 150 Mg Tab 150 MG PO TID Ranitidine (Zantac) 150 Mg Tab 150 MG PO BID, TAB Admission Information HPI (per Admitting provider): 66 year old female who presents to the ER with shortness of breath. Patient was most recently admitted to [facility] 09/14 - 09/16 for COPD exacerbation. Patient has had several admissions for this in the past. At discharge, she was given a steroid taper and her oxygen was also decreased to 1L. She continues to wear BiPap at night. Patient has not gone to any of her follow up appointments since discharge. She reports she has been feeling short of breath since returning home. She reports it has been progressively getting worse. She reports an occasional non productive cough which is chronic. She denies chest pain. No fever or chills. She denies lightheadedness, dizziness, diaphoresis, and syncopal events. No abdominal pain, nausea, vomiting, or diarrhea. She denies urinary symptoms. In the ER, patient was requiring 4L via NC to maintain saturations in the low 90s. After nebulizer and during my exam, she is down to 3L. CXR is clear. Labs are unremarkable. Vitals are stable. Physical Exam (per Admitting): General Appearance: + mild distress Head: normocephalic Eyes: normal inspection ENT: hearing grossly normal Neck: supple, no JVD Respiratory/Chest: + respiratory distress (mild tachypnea), + accessory muscle use, + wheezing (expiratory, scattered throughout all lung valdez) Cardiovascular: + tachycardia (mild, HR in the 90s-low 100s), + pertinent finding (trace edema BLLE) Abdomen/GI: normal bowel sounds, non tender, soft Extremities/Musculoskelatal: normal inspection, no calf tenderness Neurologic/Psych: no motor/sensory deficits, alert, normal mood/affect, oriented x 3 Hospital Course ACUTE ON CHRONIC HYPOXIC HYPERCAPNIC RESPIRATORY FAILURE- Resolved COPD EXACERBATION- Improved Patient was discharged on 09/16/16 for similar symptoms, likely secondary to not using her BIPAP with correct settings, sent home on 1 L oxygen at rest/BIPAP 14/ 6 settings with 4 L (requirement was confirmed after continuous pulse oximetry monitoring and d/w pulmonary during last admission). Came back with increasing SOB x 10 days, says using her BIPAP/1 L oxygen . Has had multiple admissions for same. She is also known to be non compliant, missing multiple clinic appointments -Currently on 2-3 L (goal sao2 88-92%) -Duonebs, Advair BID , S/P IV solumedrol---> Prednisone 30 mg daily (was already on a taper prior to admission) taper in 2 weeks per pulmonary -Work up- ABG shows compensated respiratory acidosis ; CXR clear, afebrile, no productive cough; no antibiotics this admission; US last admission- negative for DVT -Pulmonary consulted.- appreciate inputs. Recommending 2-3 L oxygen during day time (per her needs here), BIPAP - recommends adding S/T rate with 10 respirations per minute (Settings 14/6 with 4 L oxygen) as prior to home. HTN - BP controlled, continue Losartan and metoprolol PAROXYSMAL AFIB - currently in NSR - rate controlled on beta sandra, rhythm controlled on propafenone - not anticoagulated DIASTOLIC CHF - due to underlying COPD - appears euvolemic - continue Bumex CKD STAGE IV - baseline creat runs in the 1.5-1.7 range - Near baseline - continue to monitor, avoid nephrotoxic agents when able HYPOTHYROIDISM - continue levothyroxine CHRONIC ANEMIA - due to CKD - hgb at baseline, no signs of bleeding DVT PROPHYLAXIS - SQ Heparin CODE STATUS - Patient is a DNR as per my discussion with her. DISPO PT/OT recommends SNF, but patient and her daughter are refusing Discharge home with [facility] Total time spent on discharge = 40 minutes This includes examination of the patient, discharge planning, medication reconciliation, and communication with other providers. Discharge Instructions Activity Recommendations Activity Limitations: resume your previous activity (as tolerated with PT/OT services) . Instructions / Follow-Up Instructions / Follow-Up MEDICATION CHANGES: 1. Prednisone ; 30 mg daily x 5 days followed by 20 mg daily x 5 days f/b 10 mg daily x 5 days OXYGEN/BIPAP 1. Oxygen 2-3 litres during day time 2. BIPAP at night time with 14/6 settings with rate of 10 respirations per minutes and with oxygen 4 L FOLLOW UP 1. With Dr Melendez on 10/05/16 at 11:[address] Dickey in 2-3 weeks. Current Hospital Diet Patient's current hospital diet: AHA Diet (Heart Healthy), Low Sodium Diet (2gm Na) Discharge Diet Recommended Diet: AHA Diet (Heart Healthy), Low Sodium Diet (2gm Na), Low Fat Diet Pending Studies Studies pending at discharge: no Medical Emergencies . Who to Call and When: Medical Emergencies: If at any time you feel your situation is an emergency, please call 911 immediately. . Non-Emergent Contact Non-Emergency issues call your: Primary Care Provider . . "Provider Documentation" section prepared by Kandy Caal. VTE Core Measure Inpt VTE Proph given/why not?: Unfractionated heparin SQ
[2016-10-01 14:18] VITALS: PULSE 79; O2SAT 94
[2016-10-01 14:52] VITALS: BP 122/75; PULSE 79; TEMP 36.6; O2SAT 94
[2017-02-14] MEDS ORDERED: DLR500 PO (13:07)
[2017-02-14] MEDS ORDERED: PRED10TA PO (13:07)
[2017-02-22] MEDS ORDERED: ULT50X PO (16:20)
== END 2016-10-01 15:45 | disposition home health service (06) | DRG 189 ==
LOC: ENRESERVDT → ENRESERVTM → EDBD 10:15 → C.EDC 10:16 → C.MS4W 12:55 → UNDOADMIN 12:55
PROVIDERS: ADMIT Internal Medicine; ATTEND Internal Medicine
DX: J96.21 Acute and chronic respiratory failure with hypoxia (principal); J44.1 Chronic obstructive pulmonary disease with (acute) exacerbation; I13.0 Hypertensive heart and chronic kidney disease with heart failure and stage 1 through stage 4 chronic kidney disease, or unspecified chronic kidney disease; N18.4 Chronic kidney disease, stage 4 (severe); I50.30 Unspecified diastolic (congestive) heart failure; Z68.42 Body mass index [BMI] 45.0-49.9, adult; E66.2 Morbid (severe) obesity with alveolar hypoventilation; J96.22 Acute and chronic respiratory failure with hypercapnia; J45.909 Unspecified asthma, uncomplicated; I48.0 Paroxysmal atrial fibrillation; E03.9 Hypothyroidism, unspecified; D63.1 Anemia in chronic kidney disease; M10.9 Gout, unspecified; E78.5 Hyperlipidemia, unspecified; K21.9 Gastro-esophageal reflux disease without esophagitis; I25.10 Atherosclerotic heart disease of native coronary artery without angina pectoris; I25.2 Old myocardial infarction; Z66 Do not resuscitate; Z99.81 Dependence on supplemental oxygen; Z91.19 Patient's noncompliance with other medical treatment and regimen; Z87.891 Personal history of nicotine dependence; Z96.641 Presence of right artificial hip joint; Z96.611 Presence of right artificial shoulder joint; Z98.1 Arthrodesis status; Z79.82 Long term (current) use of aspirin; Z79.51 Long term (current) use of inhaled steroids

== ENCOUNTER → 2016-10-20 | Outpatient (CLI) | payer OTHER ==
[~2016-10-20] MED LIST changes: +ALLO300T2 PO; +ASPI81TA28 PO; +ATOR-54 PO; +CHOL1000 PO; +CNT PO; +DLR500 PO; +FERR1TAB13 PO; +IRON1CAP2 PO; +LEVO1TAB33 PO; +LEVO88TA PO; +LVQ250 PO; +LVQ500 PO; +METO-452 PO; +NRN/300 PO; +PRD10 PO; +PROP150T PO; +SERT25TA PO; +ULT50X PO; +ZNTT/150 PO; +ZRX25 PO
--- NOTE | 2016-10-20 14:07 | DIAGNOSTIC IMAGING REPORT ---
CHEST 2 VIEWS ROUTINE CLINICAL HISTORY: CHF (CONGESTIVE HEART FAILURE) I50.9 dyspnea COMPARISON STUDY: 09/28/2016 FINDINGS: The bones soft tissues and hemidiaphragms are normal. The cardiomediastinal silhouette is normal. The lungs are clear. The pulmonary vasculature is normal. IMPRESSION: Negative chest. Electronically signed by: Jerad Patel M.D. 10/20/2016 2:05 PM Dictated Date/Time: 10/20/2016 2:05 PM
== END | disposition home or self-care (01) ==
LOC: C.RAD 13:46
PROVIDERS: ATTEND Physician Assistant
DX: I50.9 Heart failure, unspecified (principal)

== ENCOUNTER 2017-01-26 20:30 | Inpatient (IN) | payer OTHER ==
[~2017-01-26] VITALS: Ht 162.6 cm; Wt 120.9 kg
[~2017-01-26 20:30] MED LIST changes: -CHOL1000 PO; -DLR500 PO; -IRON1CAP2 PO; -LEVO1TAB33 PO; -LVQ250 PO; -LVQ500 PO; -METO-452 PO; +METO1TAB66 PO; -PRED10TA PO; -SERT25TA PO; -ULT50X PO; -ZRX25 PO
[2017-01-26 21:04] LABS: BASO % 0.3 %; BASO ABS # 0.04 K/uL (0-0.2); COMPLETE YES; HEMATOCRIT 31.4 % (37-47); IG% 0.3 %; LYMPH % 16.2 %; LYMPH ABS # 2.35 K/uL (1.2-3.4); MEAN CELL VOLUME 101.3 fL (80-100); MEAN CORPUSCULAR HEMOGLOBIN 30.3 pg (25-34); MEAN CORPUSCULAR HGB CONC 29.9 g/dl (32-36); MEAN PLATELET VOLUME 9.1 fL (7.4-10.4); MONO % 6.7 %; NEUT % 72.5 %; PLATELET COUNT 228 K/uL (130-400); WHITE BLOOD COUNT 14.49 K/uL (4.8-10.8)
--- NOTE | 2017-01-26 21:09 | DIAGNOSTIC IMAGING REPORT ---
CHEST ONE VIEW PORTABLE CLINICAL HISTORY: Shortness of breath COMPARISON STUDY: 10/20/2016 FINDINGS: The heart is mildly enlarged. There is mild interstitial thickening but no evidence of overt failure. There is no lobar consolidation. There are no significant pleural effusions. There is evidence for prior vertebral plasty.[ IMPRESSION: Mild cardiomegaly. No evidence of focal pulmonary consolidation. Electronically signed by: Fox Garcia M.D. 01/26/2017 9:08 PM Dictated Date/Time: 01/26/2017 9:06 PM
[2017-01-26] MEDS ORDERED: ALBUT/IPRATROP 3MG/0.5MG NEB 3 ML VIAL INH ONE (21:15)
[2017-01-26 21:19] LABS: PROTHROMBIN TIME (PATIENT) 11.1 SECONDS (9.0-12.0)
[2017-01-26 21:21] VITALS: PULSE 70; O2SAT 96
[2017-01-26 21:48] LABS: BUN/CREATININE RATIO 19.3 (10-20); CALCIUM 9.6 mg/dl (8.5-10.1); CREATININE 1.9 mg/dl (0.60-1.20); POTASSIUM 3.8 mmol/L (3.5-5.1)
[2017-01-26 21:51] LABS: ALB/GLOB RATIO 0.8 (0.9-2)
[2017-01-26] MEDS ORDERED: SODIUM CHLORIDE 0.9% 250ML 250 ML IV STA (23:16)
[2017-01-26] MEDS ORDERED: SODIUM CHLORIDE 0.9% 1000ML 1,000 ML IV STA (23:16)
--- NOTE | 2017-01-26 23:17 | EMERGENCY ROOM VISIT NOTE ---
History Report prepared by Warren: Alessia العراقي Under the Supervision of: Dr. Brett Perez M.D. First contact with patient: 20:56 Chief Complaint: SHORTNESS OF BREATH Stated Complaint: SOB, KIDNEY PAIN Nursing Triage Summary: pt arrived als from home reported worsening of copd over the last couple of days pt has a wet cough having problems catching her breath c/o kidney pain pt given 125 mg solumedrol, duo neb, albutol in route History of Present Illness The patient is a 66 year old female who presents to the Emergency Room with complaints of constant shortness of breath beginning 2 days ago. Per nursing staff, the patient arrived via ALS from home and received 25mg of Solu-Medrol, Albuterol, and a Duoneb en route to the ED. The patient states that she has a history of COPD and is on 4L of oxygen at home but without the oxygen today she was 78. She reports that after her treatments en route she is feeling slightly better. She notes that 2 days ago she was outside for a wedding and her COPD is often worsened by heat exposure. The patient states that her shortness of breath significantly worsened at the wedding. She complains of a productive cough, flank pain, diarrhea, abdominal cramping, fever, chills, and slight leg swelling that is not unusual. Pt denies LOC, headache, diaphoresis, visual changes, neck pain, chest pain, nausea, vomiting, back pain, melena, hematochezia, urinary symptoms, numbness, weakness, lymphadenopathy, rash, or other complaints. She notes that she takes a baby aspirin every day. Source of History: patient Onset: 2 days ago Position: other (respiratory) Quality: other (SOB) Timing: constant Modifying Factors (Worsening): other (heat) Note: Pt complains of a productive cough, flank pain, diarrhea, abdominal cramping, fever, chills, and slight leg swelling. Review of Systems See HPI for pertinent positives and negatives. A total of ten systems were reviewed and were otherwise negative. Past Medical & Surgical Medical Problems: (1) CHF (congestive heart failure) (2) CKD (chronic kidney disease), stage IV (3) COPD (chronic obstructive pulmonary disease) (4) Depression (5) Dyslipidemia (6) GERD (gastroesophageal reflux disease) (7) HTN (hypertension) (8) EVONNE (iron deficiency anemia) (9) Myocardial infarction (10) Paroxysmal a-fib Surgical Problems: (1) History of appendectomy (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 (4) Hx of cholecystectomy (5) S/P cervical spinal fusion (6) S/P wrist surgery Family History Diabetes mellitus MOTHER FH: CAD (coronary artery disease) MOTHER SISTER Social History Smoking Status: Former Smoker Alcohol Use: none Drug Use: none Marital Status: single Housing Status: lives with family Occupation Status: retired Current/Historical Medications Scheduled Allopurinol (Zyloprim), 300 MG PO DAILY Aspirin (Aspirin Ec), 81 MG PO DAILY Atorvastatin (Lipitor), 20 MG PO DAILY Bumetanide (Bumetanide), 1 MG PO BID Ferrous Sulfate (Kp Ferrous Sulfate), 1 TAB PO DAILY Fluticasone Prop/Salmeterol (Advair Diskus 500/50 60 Dose), 1 PUFFS INH BID Gabapentin (Neurontin), 300 MG PO TID Lactobacillus Acidophilus (Lactinex), 1 TAB PO TID Levothyroxine Sodium (Synthroid), 88 MCG PO DAILY Losartan Potassium (Losartan Potassium), 50 MG PO QAM Metoprolol Succinate (Toprol Xl), 50 MG PO DAILY Multivitamins/Minerals (Certavite/Antioxidants), 1 TAB PO DAILY Potassium Ext Rel (Klor-Con), 20 MEQ PO Q2D Propafenone Hcl (Propafenone Hcl), 150 MG PO TID Ranitidine (Zantac), 150 MG PO BID Scheduled PRN Acetaminophen (Tylenol), 650 MG PO Q4H PRN for Pain or Fever Albuterol Sulf (Proventil 0.083% 2.5MG/3ML), 2.5 MG INH QID PRN for SOB/Wheezing Ipratropium-Albuterol (Combivent Respimat), 1 PUFFS INH QID PRN for sob/wheezing Allergies Coded Allergies: Adhesives (Verified Allergy, Severe, RED RASH, 01/26/17) Latex1 -Allergic Contact Dermititis (Verified Adverse Reaction, Mild, TAPE -SORE, 01/26/17) Morphine (Verified Adverse Reaction, Mild, DELUSIONS, 01/26/17) Physical Exam Vital Signs Date Time Temp Pulse Resp B/P (MAP) Pulse Ox O2 Delivery O2 Flow Rate FiO2 01/26/17 23:12 82 18 124/56 97 01/26/17 22:35 81 18 122/63 98 Nasal Cannula 4.0 01/26/17 21:21 70 18 96 Nasal Cannula 4.0 01/26/17 20:59 98 Nasal Cannula 4.0 01/26/17 20:50 76 01/26/17 20:49 99 Nasal Cannula 4.0 01/26/17 20:47 99 Nasal Cannula 4.0 01/26/17 20:42 36.6 79 28 139/52 98 Nasal Cannula 4.0 Physical Exam GENERAL: Awake, alert, uncomfortable appearing HENT: Normocephalic, atraumatic. Oropharynx unremarkable. EYES: Normal conjunctiva. Sclera non-icteric. NECK: Supple. No nuchal rigidity. FROM. No JVD. RESPIRATORY: Dyspneic appearing, decreased breath sounds. CARDIAC: Borderline tachycardic rate, normal rhythm. Extremities warm and well perfused. Pulses equal. ABDOMEN: Soft, non-distended. No tenderness to palpation. No rebound or guarding. No masses. RECTAL: Deferred. MUSCULOSKELETAL: Chest examination reveals no tenderness. The back is symmetrical on inspection without obvious abnormality. There is no CVA tenderness to palpation. No joint edema. LOWER EXTREMITIES: Calves are equal size bilaterally. 1+ pitting edema bilaterally. NEURO: Normal sensorium. No sensory or motor deficits noted. SKIN: No rash or jaundice noted. Medical Decision & Procedures ER Provider Diagnostic Interpretation: X-ray: Per my interpretation, radiologist review. CHEST ONE VIEW PORTABLE FINDINGS: The heart is mildly enlarged. There is mild interstitial thickening but no evidence of overt failure. There is no lobar consolidation. There are no significant pleural effusions. There is evidence for prior vertebral plasty.[ IMPRESSION: Mild cardiomegaly. No evidence of focal pulmonary consolidation. Electronically signed by: Fox Garcia M.D. 01/26/2017 9:08 PM Dictated Date/Time: 01/26/2017 9:06 PM Laboratory Results 01/26/17 20:16 Red Blood Count 3.10, Mean Corpuscular Volume 101.3, Mean Corpuscular Hemoglobin 30.3, Mean Corpuscular Hemoglobin Concent 29.9, Mean Platelet Volume 9.1, Neutrophils (%) (Auto) 72.5, Lymphocytes (%) (Auto) 16.2, Monocytes (%) ( Auto) 6.7, Eosinophils (%) (Auto) 4.0, Basophils (%) (Auto) 0.3, Neutrophils # ( Auto) 10.50, Lymphocytes # (Auto) 2.35, Monocytes # (Auto) 0.97, Eosinophils # ( Auto) 0.58, Basophils # (Auto) 0.04 01/26/17 20:16 Test 01/26/17 20:16 01/26/17 21:03 01/26/17 23:03 White Blood Count 14.49 K/uL (4.8-10.8) Red Blood Count 3.10 M/uL (4.2-5.4) Hemoglobin 9.4 g/dL (12.0-16.0) Hematocrit 31.4 % (37-47) Mean Corpuscular Volume 101.3 fL (80-100) Mean Corpuscular Hemoglobin 30.3 pg (25-34) Mean Corpuscular Hemoglobin Concent 29.9 g/dl (32-36) Platelet Count 228 K/uL (130-400) Mean Platelet Volume 9.1 fL (7.4-10.4) Neutrophils (%) (Auto) 72.5 % Lymphocytes (%) (Auto) 16.2 % Monocytes (%) (Auto) 6.7 % Eosinophils (%) (Auto) 4.0 % Basophils (%) (Auto) 0.3 % Neutrophils # (Auto) 10.50 K/uL (1.4-6.5) Lymphocytes # (Auto) 2.35 K/uL (1.2-3.4) Monocytes # (Auto) 0.97 K/uL (0.11-0.59) Eosinophils # (Auto) 0.58 K/uL (0-0.5) Basophils # (Auto) 0.04 K/uL (0-0.2) RDW Standard Deviation 55.6 fL (36.4-46.3) RDW Coefficient of Variation 15.2 % (11.5-14.5) Immature Granulocyte % (Auto) 0.3 % Immature Granulocyte # (Auto) 0.05 K/uL (0.00-0.02) Prothrombin Time 11.1 SECONDS (9.0-12.0) Prothromb Time International Ratio 1.0 (0.9-1.1) Activated Partial Thromboplast Time 25.1 SECONDS (21.0-31.0) Partial Thromboplastin Ratio 1.0 Anion Gap 5.0 mmol/L (3-11) Est Creatinine Clear Calc Drug Dose 36.6 ml/min Estimated GFR () 30.9 Estimated GFR (Non- 26.6 BUN/Creatinine Ratio 19.3 (10-20) Calcium Level 9.6 mg/dl (8.5-10.1) Total Bilirubin 0.2 mg/dl (0.2-1) Aspartate Amino Transf (AST/SGOT) 10 U/L (15-37) Alanine Aminotransferase (ALT/SGPT) 17 U/L (12-78) Alkaline Phosphatase 75 U/L (45-117) Total Protein 7.4 gm/dl (6.4-8.2) Albumin 3.2 gm/dl (3.4-5.0) Globulin 4.2 gm/dl (2.5-4.0) Albumin/Globulin Ratio 0.8 (0.9-2) Bedside Troponin I < 0.030 ng/ml (0-0.045) Laboratory results reviewed by me Medications Administered Medications (Trade) Dose Ordered Sig/Rupinder Route Start Time Stop Time Status Last Admin Dose Admin Albuterol/ Ipratropium (Duoneb) 12 ml ONE ONCE INH 01/26/17 21:15 01/26/17 21:16 DC 01/26/17 21:21 12 ML ECG Indication: SOB/dyspnea Rate (beats per minute): 74 Rhythm: normal sinus Findings: RBBB (incomplete), no acute ischemic change, no ectopy ED Course 2055: The patient was evaluated in room B3. A complete history and physical exam was performed. 2114: Duoneb 12ml INH. 2158: I reevaluated and updated the patient. 2234: Discussed the patient's case with Dr. Lowery of [facility]. The patient will be evaluated for further treatment and disposition. 2238: Upon reexamination, the patient was doing well. I discussed the test results and treatment plan with the patient. The patient will be evaluated for further management. Medical Decision Medication Reconciliation: I attest that I have personally reviewed the patient' s current medication list Patient was found to have a slightly elevated blood pressure due to circumstances. I do not believe that the patient requires emergent hypertension monitoring. Triage Nursing notes reviewed. The patient's presentation and history were concerning for SOB. Etiologies such as pneumonia, COPD, reactive airway disease, CHF, cardiac ischemia, pulmonary embolism, pneumothorax, musculoskeletal, infections, gastrointestinal, as well as others were entertained. The patient was evaluated. She received a nebulizer treatment and Solu-Medrol prehospital. The patient was doing somewhat better with this. She had significant hypoxia prehospital. She was still mildly hypoxic upon arrival here. An hour-long treatment was ordered. Chest x-ray did not reveal any sign of infiltrate. Blood work did reveal a mild elevation of her white blood cell count. Her coags were negative and her troponin was negative. ECG revealed no ischemia. On reassessment the patient was feeling somewhat better. Her chemistry panel revealed a mild elevation of her creatinine. She was gently hydrated. It appears the patient is having a COPD exacerbation. Consultation was made with internal medicine. The patient was evaluated in the Emergency Room for further management. Consults Time Called: [phone] Consulting Physician: Dr. Sebastián Alex Returned Call: [phone] Discussed the patient's case with Dr. Mercedes. The patient will be evaluated for further treatment and disposition. Impression Primary Impression: COPD exacerbation Additional Impression: Hypoxia Scribe Attestation The scribe's documentation has been prepared under my direction and personally reviewed by me in its entirety. I confirm that the note above accurately reflects all work, treatment, procedures, and medical decision making performed by me. Departure Information Dispostion Being Evaluated By Hospitalist Referrals Babak Melendez M.D.([facility]) (PCP) Patient Instructions My [facility] Problem Qualifiers
[2017-01-26 23:44] LABS: ARTERIAL BLOOD GAS BASE EXCESS 12.9 mEq/L (-9-1.8); ARTERIAL BLOOD GAS HCO3 42 mmol/L (19-24); ARTERIAL BLOOD GAS PO2 94 mm/Hg (80-95); ARTERIAL BLOOD GAS pH 7.29 (7.35-7.45)
[2017-01-26 23:45] LABS: ALLEN TEST POS (POS); O2 ADMINISTRATION 4 LITERS
--- NOTE | 2017-01-26 23:52 | History and Physical ---
History & Physical Date & Time of Service: Jan 26, 2017 at 23:52 Chief Complaint: Sob, Kidney Pain Primary Care Physician: Babak Melendez M.D.(RAMEZ) History of Present Illness Source: patient, hospital records Recent confinement last September 2016 for COPD exacerbation. Few days history of cough symptoms productive of yellow sputum, more than usual. Increasing shortness of breath. No aspiration no chest pain. No fever no chills. Patient received IV Solu-Medrol for COPD exacerbation en route to the emergency room. Past Medical/Surgical History Medical Problems: (1) CHF (congestive heart failure) Status: Chronic (2) CKD (chronic kidney disease), stage IV Status: Chronic (3) COPD (chronic obstructive pulmonary disease) Status: Chronic (4) Depression Status: Chronic (5) Dyslipidemia Status: Chronic (6) GERD (gastroesophageal reflux disease) Status: Chronic (7) HTN (hypertension) Status: Chronic (8) EVONNE (iron deficiency anemia) Status: Chronic (9) Myocardial infarction Permanent Comment: per patient, details unknown Status: Chronic (10) Paroxysmal a-fib Status: Chronic Surgical Problems: (1) History of appendectomy Status: Chronic (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 (3) 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 (4) Hx of cholecystectomy Status: Chronic (5) S/P cervical spinal fusion Status: Chronic (6) S/P wrist surgery Status: Chronic Family History Diabetes mellitus MOTHER FH: CAD (coronary artery disease) MOTHER SISTER Social History Smoking Status: Former Smoker Drug Use: none Marital Status: single Housing status: lives with family Occupational Status: retired, other (retired from [employer] work) Immunizations History of Influenza Vaccine: Yes Influenza Vaccine Date: May 19, 2016 History of Tetanus Vaccine?: Yes Tetanus Immunization Date: Jan 11, 2008 History of Pneumococcal: Yes Pneumococcal Date: May 19, 2016 Multi-Drug 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 Allergies Coded Allergies: Adhesives (Verified Allergy, Severe, RED RASH, 01/26/17) Latex1 -Allergic Contact Dermititis (Verified Adverse Reaction, Mild, TAPE -SORE, 01/26/17) Morphine (Verified Adverse Reaction, Mild, DELUSIONS, 01/26/17) Home Medications Scheduled Allopurinol (Zyloprim), 300 MG PO DAILY Aspirin (Aspirin Ec), 81 MG PO DAILY Atorvastatin (Lipitor), 20 MG PO DAILY Bumetanide (Bumetanide), 1 MG PO BID Ferrous Sulfate (Kp Ferrous Sulfate), 1 TAB PO DAILY Fluticasone Prop/Salmeterol (Advair Diskus 500/50 60 Dose), 1 PUFFS INH BID Gabapentin (Neurontin), 300 MG PO TID Lactobacillus Acidophilus (Lactinex), 1 TAB PO TID Levothyroxine Sodium (Synthroid), 88 MCG PO DAILY Losartan Potassium (Losartan Potassium), 50 MG PO QAM Metoprolol Succinate (Toprol Xl), 50 MG PO DAILY Multivitamins/Minerals (Certavite/Antioxidants), 1 TAB PO DAILY Potassium Ext Rel (Klor-Con), 20 MEQ PO Q2D Propafenone Hcl (Propafenone Hcl), 150 MG PO TID Ranitidine (Zantac), 150 MG PO BID Scheduled PRN Acetaminophen (Tylenol), 650 MG PO Q4H PRN for Pain or Fever Albuterol Sulf (Proventil 0.083% 2.5MG/3ML), 2.5 MG INH QID PRN for SOB/Wheezing Ipratropium-Albuterol (Combivent Respimat), 1 PUFFS INH QID PRN for sob/wheezing Review of Systems As per history of present illness, all other ROS negative Physical Exam Vital Signs Date Time Temp Pulse Resp B/P (MAP) Pulse Ox O2 Delivery O2 Flow Rate FiO2 01/26/17 23:12 82 18 124/56 97 01/26/17 22:35 81 18 122/63 98 Nasal Cannula 4.0 01/26/17 21:21 70 18 96 Nasal Cannula 4.0 01/26/17 20:59 98 Nasal Cannula 4.0 01/26/17 20:50 76 01/26/17 20:49 99 Nasal Cannula 4.0 01/26/17 20:47 99 Nasal Cannula 4.0 01/26/17 20:42 36.6 79 28 139/52 98 Nasal Cannula 4.0 General Appearance: + obese, + pertinent finding (slightly hard of hearing) Head: normocephalic Eyes: + pertinent finding (pale palpebral conjunctivae) Neck: + pertinent finding (short) Respiratory/Chest: + decreased breath sounds Cardiovascular: regular rate, rhythm Abdomen/GI: + pertinent finding (some distention) Extremities/Musculoskelatal: non-tender, + swelling (minimal lower extremity swelling) Neurologic/Psych: alert (slightly hard of hearing), + pertinent finding Skin: + pallor Diagnostics Laboratory Results Results Past 24 Hours Test 01/26/17 20:16 01/26/17 21:03 01/26/17 23:30 Range/Units White Blood Count 14.49 4.8-10.8 K/uL Red Blood Count 3.10 4.2-5.4 M/uL Hemoglobin 9.4 12.0-16.0 g/dL Hematocrit 31.4 37-47 % Mean Corpuscular Volume 101.3 80-100 fL Mean Corpuscular Hemoglobin 30.3 25-34 pg Mean Corpuscular Hemoglobin Concent 29.9 32-36 g/dl Platelet Count 228 130-400 K/uL Mean Platelet Volume 9.1 7.4-10.4 fL Neutrophils (%) (Auto) 72.5 % Lymphocytes (%) (Auto) 16.2 % Monocytes (%) (Auto) 6.7 % Eosinophils (%) (Auto) 4.0 % Basophils (%) (Auto) 0.3 % Neutrophils # (Auto) 10.50 1.4-6.5 K/uL Lymphocytes # (Auto) 2.35 1.2-3.4 K/uL Monocytes # (Auto) 0.97 0.11-0.59 K/uL Eosinophils # (Auto) 0.58 0-0.5 K/uL Basophils # (Auto) 0.04 0-0.2 K/uL RDW Standard Deviation 55.6 36.4-46.3 fL RDW Coefficient of Variation 15.2 11.5-14.5 % Immature Granulocyte % (Auto) 0.3 % Immature Granulocyte # (Auto) 0.05 0.00-0.02 K/uL Prothrombin Time 11.1 9.0-12.0 SECONDS Prothromb Time International Ratio 1.0 0.9-1.1 Activated Partial Thromboplast Time 25.1 21.0-31.0 SECONDS Partial Thromboplastin Ratio 1.0 Sodium Level 139 136-145 mmol/L Potassium Level 3.8 3.5-5.1 mmol/L Chloride Level 93 98-107 mmol/L Carbon Dioxide Level 41 21-32 mmol/L Anion Gap 5.0 3-11 mmol/L Blood Urea Nitrogen 37 7-18 mg/dl Creatinine 1.90 0.60-1.20 mg/dl Est Creatinine Clear Calc Drug Dose 36.6 ml/min Estimated GFR () 30.9 Estimated GFR (Non- 26.6 BUN/Creatinine Ratio 19.3 10-20 Random Glucose 132 70-99 mg/dl Calcium Level 9.6 8.5-10.1 mg/dl Total Bilirubin 0.2 0.2-1 mg/dl Aspartate Amino Transf (AST/SGOT) 10 15-37 U/L Alanine Aminotransferase (ALT/SGPT) 17 12-78 U/L Alkaline Phosphatase 75 45-117 U/L Total Protein 7.4 6.4-8.2 gm/dl Albumin 3.2 3.4-5.0 gm/dl Globulin 4.2 2.5-4.0 gm/dl Albumin/Globulin Ratio 0.8 0.9-2 Bedside Troponin I < 0.030 0-0.045 ng/ml Arterial Blood pH 7.29 7.35-7.45 Arterial Blood Partial Pressure CO2 91 35-46 mmHg Arterial Blood Partial Pressure O2 94 80-95 mm/Hg Arterial Blood HCO3 42 19-24 mmol/L Arterial Blood Oxygen Saturation 95.0 90-95 % Arterial Blood Base Excess 12.9 -9-1.8 mEq/L Arterial Blood Gas Delivery 4 LITERS Alvaro Test POS POS Microbiology Results 01/26/17 Blood Culture, Received Pending 01/26/17 Blood Culture, Received Pending Diagnostic Radiology Interstitial congestion other EKG As per my interpretation: Normal sinus rhythm, incomplete right bundle branch block, nonspecific T-wave abnormalities Impression Assessment and Plan AP Acute on chronic hypoxemic, hypercapnic respiratory failure secondary to COPD exacerbation SIMONA on CPAP Chronic right-sided heart failure as per records Respiratory acidosis secondary to above PAF, patient NSR Hypertension, stable CKD, creatinine at baseline Chronic anemia secondary to CKD, hemoglobin at baseline GMF BiPAP Recheck ABG Doxycycline, nebs, prednisone course Pulmonology consult re: acute on chronic respiratory failure (patient known to [facility]) DVT prophylaxis, Heparin SQ DO NOT RESUSCITATE VTE Prophylaxis VTE Risk Assessment Done? Y/N: Yes Risk Level: Moderate
[2017-01-27] VITALS (12 sets, daily range): BP systolic 108–148; BP diastolic 55–75; PULSE 71–98; TEMP 36.6–36.7; O2SAT 85–98; Ht 162.6 cm; Wt 120.9 kg
[2017-01-27 00:03] LABS: MAGNESIUM 1.7 mg/dl (1.8-2.4)
[2017-01-27] MEDS ORDERED: LEVALBUTEROL/IPRATROPIUM NEB INH PRN (00:15)
[2017-01-27] MEDS ORDERED: TRAMADOL HCL 50 MG TAB PO PRN (00:15)
[2017-01-27] MEDS ORDERED: HYDROmorphone INJ 0.5 MG/0.5 ML SYR IV PRN (00:15)
[2017-01-27 02:45] LABS: ALLEN TEST POS (POS); ARTERIAL BLD GAS O2 SATURATION 95.1 % (90-95); ARTERIAL BLOOD GAS BASE EXCESS 13.3 mEq/L (-9-1.8); ARTERIAL BLOOD GAS HCO3 41 mmol/L (19-24); ARTERIAL BLOOD GAS PO2 92 mm/Hg (80-95); ARTERIAL BLOOD GAS pH 7.35 (7.35-7.45); O2 ADMINISTRATION BIPAP
[2017-01-27] MEDS ORDERED: MAGNESIUM SULFATE 1GM / D5W 1 GM in PREMIXED IN D5W 100 ML IV ONE (03:00)
[2017-01-27] MEDS ORDERED: LEVALBUTEROL/IPRATROPIUM NEB INH SCH (03:00)
[2017-01-27] MEDS ORDERED: DOXYCYCLINE HYCLATE 100 MG CAP PO ONE (03:00)
[2017-01-27 03:33] LABS: URINE APPEARANCE CLEAR (CLEAR); URINE BILIRUBIN NEG (NEG); URINE COLOR YELLOW; URINE NITRITE NEG (NEG); URINE SPECIFIC GRAVITY 1.019 (1.000-1.030); UROBILINOGEN NEG (NEG); ZZUR CULT IF INDIC CLEAN CATCH NO
[2017-01-27 03:46] LABS: MANUAL MICROSCOPIC REQUIRED? NO; REVIEW REQ? NO
[2017-01-27] MEDS ORDERED: IPRATROPIUM BROMIDE NEB SOLN 0.02% 2.5 ML VIAL INH PRN (04:15)
[2017-01-27] MEDS ORDERED: LEVALBUTEROL 1.25MG/0.5ML NEB INH PRN (04:15)
[2017-01-27] MEDS: ACETAMINOPHEN 325 MG TAB PO PRN (04:33)
[2017-01-27] MEDS: ONDANSETRON INJ 2 MG/ML 2 ML VIAL IV SCH ×2 (05:43→18:45)
[2017-01-27] MEDS: LEVOTHYROXINE 88 MCG TAB PO SCH (05:47)
[2017-01-27] MEDS: HEPARIN SOD 5000 UNIT/0.5 ML CARP SQ SCH ×3 (05:49→22:19)
[2017-01-27 06:19] LABS: BASO % 0.1 %; BASO ABS # 0.01 K/uL (0-0.2); COMPLETE YES; EOS % 0.1 %; HEMATOCRIT 31.5 % (37-47); IG% 0.4 %; LYMPH % 5.3 %; LYMPH ABS # 0.53 K/uL (1.2-3.4); MEAN CELL VOLUME 100.3 fL (80-100); MEAN CORPUSCULAR HEMOGLOBIN 29.3 pg (25-34); MEAN CORPUSCULAR HGB CONC 29.2 g/dl (32-36); MEAN PLATELET VOLUME 9.4 fL (7.4-10.4); MONO % 0.3 %; NEUT % 93.8 %; PLATELET COUNT 192 K/uL (130-400); RED BLOOD COUNT 3.14 M/uL (4.2-5.4); WHITE BLOOD COUNT 9.97 K/uL (4.8-10.8)
[2017-01-27] MEDS: LEVALBUTEROL 1.25MG/0.5ML NEB INH SCH ×3 (06:55→19:03)
[2017-01-27] MEDS: IPRATROPIUM BROMIDE NEB SOLN 0.02% 2.5 ML VIAL INH SCH ×3 (06:55→19:03)
[2017-01-27 07:05] LABS: BUN/CREATININE RATIO 20.1 (10-20); CALCIUM 9.2 mg/dl (8.5-10.1); CREATININE 1.6 mg/dl (0.60-1.20); MAGNESIUM 1.9 mg/dl (1.8-2.4); POTASSIUM 3.7 mmol/L (3.5-5.1)
[2017-01-27] MEDS: ALLOPURINOL 300 MG TAB PO SCH (08:56)
[2017-01-27] MEDS: CEROVITE ADV FORMULA TAB PO SCH (08:56)
[2017-01-27] MEDS: ASPIRIN 81 MG ECTAB PO SCH (08:56)
[2017-01-27] MEDS: LACTOBACILLUS ACIDOPHILUS (FLORANEX) TAB PO SCH ×3 (08:58→20:25)
[2017-01-27] MEDS: FERROUS SULFATE 325 MG TAB PO SCH (08:58)
[2017-01-27] MEDS: BUMETANIDE 1 MG TAB PO SCH ×2 (08:58→16:55)
[2017-01-27] MEDS: PROPAFENONE HCL 150 MG TAB PO SCH ×3 (08:58→20:26)
[2017-01-27] MEDS: GABAPENTIN 100 MG CAP PO SCH ×3 (08:59→20:23)
[2017-01-27] MEDS: RANITIDINE HCL 150 MG TAB PO SCH ×2 (09:00→20:26)
[2017-01-27] MEDS: ATORVASTATIN 20 MG TAB PO SCH (09:00)
[2017-01-27] MEDS: LOSARTAN POTASSIUM 50 MG TAB PO SCH (09:00)
[2017-01-27] MEDS: METOPROLOL SUCC 50MG EXT REL TAB PO SCH (09:01)
--- NOTE | 2017-01-27 10:09 | Progress Note ---
Internal Med Progress Note Date of Service: Jan 27, 2017. Provider Documentation: SUBJECTIVE: Patient is feeling better today. SOB is near baseline. Cough with minimal sputum. No chest pain, fever, chills, edema. On 4 L oxygen as at home S/P BIPAP overnight OBJECTIVE: Vital Signs-as noted below Exam: General-AAO X 3 , no distress, Morbidly obese Neck-Supple, Short neck Lungs-AEBE decreased, no wheezing, Heart-S1, S2 normal Extremities-No edema Lab data as noted below. ASSESSMENT & PLAN: ASSESSMENT AND PLAN: ACUTE ON CHRONIC HYPERCAPNEIC RESPIRATORY FAILURE - Improved Secondary to COPD exacerbation in setting of Morbid obesity, SIMONA on CPAP, Chronic respiratory acidosis, Chronic right sided heart failure as per records -On 4 L oxygen as at home. Used BIPAP 12/5 overnight -Clinically improved -feels like near her baseline -On Nebs, Prednisone, Doxycycline -Work up- ABGs reviewed- PH 7.2 with PCO2 91; improved to 7.35, 76; CXR- no acute abnormalities PAROXYSMAL ATRIAL FIBRILLATION In normal sinus rhythm -Stable HTN -Stable CKD -Creatinine is near baseline at 1.6 CHRONIC ANEMIA SECONDARY TO CKD -Hb stable at baseline DVT prophylaxis, Heparin SQ DO NOT RESUSCITATE DISPOSITION Expected discharge home when stable Vital Signs: Date Time Temp Pulse Resp B/P (MAP) Pulse Ox O2 Delivery O2 Flow Rate FiO2 01/27/17 07:50 36.6 81 18 115/55 (75) 95 Nasal Cannula 4.0 01/27/17 06:55 91 18 94 Nasal Cannula 4.0 01/27/17 02:14 71 94 4.0 01/27/17 02:13 71 18 94 Nasal Cannula 4.0 01/27/17 01:00 36.6 80 22 148/75 95 Nasal Cannula 4.0 01/27/17 00:33 80 22 127/51 97 Nasal Cannula 4.0 01/27/17 00:04 88 01/26/17 23:12 82 18 124/56 97 01/26/17 22:35 81 18 122/63 98 Nasal Cannula 4.0 01/26/17 21:21 70 18 96 Nasal Cannula 4.0 01/26/17 20:59 98 Nasal Cannula 4.0 01/26/17 20:50 76 01/26/17 20:49 99 Nasal Cannula 4.0 01/26/17 20:47 99 Nasal Cannula 4.0 01/26/17 20:42 36.6 79 28 139/52 98 Nasal Cannula 4.0 Lab Results: Results Past 24 Hours Test 01/26/17 20:16 01/26/17 21:03 01/26/17 23:30 01/27/17 02:28 Range/Units White Blood Count 14.49 4.8-10.8 K/uL Red Blood Count 3.10 4.2-5.4 M/uL Hemoglobin 9.4 12.0-16.0 g/dL Hematocrit 31.4 37-47 % Mean Corpuscular Volume 101.3 80-100 fL Mean Corpuscular Hemoglobin 30.3 25-34 pg Mean Corpuscular Hemoglobin Concent 29.9 32-36 g/dl Platelet Count 228 130-400 K/uL Mean Platelet Volume 9.1 7.4-10.4 fL Neutrophils (%) (Auto) 72.5 % Lymphocytes (%) (Auto) 16.2 % Monocytes (%) (Auto) 6.7 % Eosinophils (%) (Auto) 4.0 % Basophils (%) (Auto) 0.3 % Neutrophils # (Auto) 10.50 1.4-6.5 K/uL Lymphocytes # (Auto) 2.35 1.2-3.4 K/uL Monocytes # (Auto) 0.97 0.11-0.59 K/uL Eosinophils # (Auto) 0.58 0-0.5 K/uL Basophils # (Auto) 0.04 0-0.2 K/uL RDW Standard Deviation 55.6 36.4-46.3 fL RDW Coefficient of Variation 15.2 11.5-14.5 % Immature Granulocyte % (Auto) 0.3 % Immature Granulocyte # (Auto) 0.05 0.00-0.02 K/uL Prothrombin Time 11.1 9.0-12.0 SECONDS Prothromb Time International Ratio 1.0 0.9-1.1 Activated Partial Thromboplast Time 25.1 21.0-31.0 SECONDS Partial Thromboplastin Ratio 1.0 Sodium Level 139 136-145 mmol/L Potassium Level 3.8 3.5-5.1 mmol/L Chloride Level 93 98-107 mmol/L Carbon Dioxide Level 41 21-32 mmol/L Anion Gap 5.0 3-11 mmol/L Blood Urea Nitrogen 37 7-18 mg/dl Creatinine 1.90 0.60-1.20 mg/dl Est Creatinine Clear Calc Drug Dose 36.6 ml/min Estimated GFR () 30.9 Estimated GFR (Non- 26.6 BUN/Creatinine Ratio 19.3 10-20 Random Glucose 132 70-99 mg/dl Calcium Level 9.6 8.5-10.1 mg/dl Magnesium Level 1.7 1.8-2.4 mg/dl Total Bilirubin 0.2 0.2-1 mg/dl Aspartate Amino Transf (AST/SGOT) 10 15-37 U/L Alanine Aminotransferase (ALT/SGPT) 17 12-78 U/L Alkaline Phosphatase 75 45-117 U/L Total Protein 7.4 6.4-8.2 gm/dl Albumin 3.2 3.4-5.0 gm/dl Globulin 4.2 2.5-4.0 gm/dl Albumin/Globulin Ratio 0.8 0.9-2 Bedside Troponin I < 0.030 0-0.045 ng/ml Arterial Blood pH 7.29 7.35 7.35-7.45 Arterial Blood Partial Pressure CO2 91 76 35-46 mmHg Arterial Blood Partial Pressure O2 94 92 80-95 mm/Hg Arterial Blood HCO3 42 41 19-24 mmol/L Arterial Blood Oxygen Saturation 95.0 95.1 90-95 % Arterial Blood Base Excess 12.9 13.3 -9-1.8 mEq/L Arterial Blood Gas Delivery 4 LITERS BIPAP Alvaro Test POS POS POS Lactic Acid Level 1.9 0.4-2.0 mmol/L Test 01/27/17 03:20 01/27/17 05:51 Range/Units Urine Color YELLOW Urine Appearance CLEAR CLEAR Urine pH 5.0 4.5-7.5 Urine Specific [place] 1.019 1.000-1.030 Urine Protein NEG NEG Urine Glucose (UA) NEG NEG Urine Ketones NEG NEG Urine Occult Blood NEG NEG Urine Nitrite NEG NEG Urine Bilirubin NEG NEG Urine Urobilinogen NEG NEG Urine Leukocyte Esterase NEG NEG White Blood Count 9.97 4.8-10.8 K/uL Red Blood Count 3.14 4.2-5.4 M/uL Hemoglobin 9.2 12.0-16.0 g/dL Hematocrit 31.5 37-47 % Mean Corpuscular Volume 100.3 80-100 fL Mean Corpuscular Hemoglobin 29.3 25-34 pg Mean Corpuscular Hemoglobin Concent 29.2 32-36 g/dl Platelet Count 192 130-400 K/uL Mean Platelet Volume 9.4 7.4-10.4 fL Neutrophils (%) (Auto) 93.8 % Lymphocytes (%) (Auto) 5.3 % Monocytes (%) (Auto) 0.3 % Eosinophils (%) (Auto) 0.1 % Basophils (%) (Auto) 0.1 % Neutrophils # (Auto) 9.35 1.4-6.5 K/uL Lymphocytes # (Auto) 0.53 1.2-3.4 K/uL Monocytes # (Auto) 0.03 0.11-0.59 K/uL Eosinophils # (Auto) 0.01 0-0.5 K/uL Basophils # (Auto) 0.01 0-0.2 K/uL RDW Standard Deviation 54.8 36.4-46.3 fL RDW Coefficient of Variation 15.0 11.5-14.5 % Immature Granulocyte % (Auto) 0.4 % Immature Granulocyte # (Auto) 0.04 0.00-0.02 K/uL Nucleated RBC Absolute Count (auto) 0.02 0-0 K/uL Nucleated Red Blood Cells % 0.2 % Sodium Level 137 136-145 mmol/L Potassium Level 3.7 3.5-5.1 mmol/L Chloride Level 94 98-107 mmol/L Carbon Dioxide Level 41 21-32 mmol/L Anion Gap 2.0 3-11 mmol/L Blood Urea Nitrogen 32 7-18 mg/dl Creatinine 1.60 0.60-1.20 mg/dl Est Creatinine Clear Calc Drug Dose 43.1 ml/min Estimated GFR () 38.0 Estimated GFR (Non- 32.8 BUN/Creatinine Ratio 20.1 10-20 Random Glucose 204 70-99 mg/dl Calcium Level 9.2 8.5-10.1 mg/dl Magnesium Level 1.9 1.8-2.4 mg/dl Hepatitis C Antibody Screen NEG NEG Microbiology Results 01/26/17 Blood Culture, Received Pending 01/26/17 Blood Culture, Received Pending
--- NOTE | 2017-01-27 13:38 | Pulmonary Consultation ---
History General Date of Service: Jan 27, 2017. Stated Complaint: Respiratory Failure, Uulnz-Xk-Mhskohd HPI The patient is a 66 year old female who presents to [facility] with complaints of Respiratory Failure, Ninct-Mc-Gvozuty. The patient's primary care provider is Babak Melendez M.D.(RAMEZ). Ms. Lee is a 66-year-old female with past medical history of morbid obesity with a BMI of 45.7, obesity hypoventilation syndrome, obstructive sleep apnea and severe COPD who presents to the ER overnight with complaints of increased shortness of breath and dyspnea on exertion and increased sputum production that was yellowish in color. She normally uses 3 L nasal cannula but he had to increase to 4 L nasal cannula. She states that she doesnt get out of the house that much due to her respiratory medications. She denies any fevers, chills, chest pain, palpitations, hemoptysis, increased extremity edema or swelling. She denies any sick contacts or recent travel. Her home medications include Advair Diskus 500/50 1 puff twice a day, Combivent Respimat one puff 4 times a day when necessary for shortness of breath and wheezing as well as albuterol nebulizer when necessary. On her last admission in September of this year she was admitted for COPD exacerbation and was discharged home on 2-3 LPM of oxygen during the day as well as BiPAP at bedtime with pressure settings of 14/ 6 with a rate of 10+4 L oxygen supplementation. Patient states that she is compliant with medications and oxygen therapy. Initial ABG was pH of 7.29, PCO2 of 91, PCO2 of 94 bicarbonate of 42 with a pulse ox of 97% on 4 L nasal cannula . Initial vital signs were blood pressure 139/52, pulse 79, respiratory rate of 28, pulse pulse oximetry 98%.Chest x-ray was consistent with mild cardiomegaly with no evidence of focal consolidation. Her chemistry was significant for a carbon dioxide level of 41 and a creatinine of 1.9. Her baseline carbon dioxide level appears ranges between 38-42. She was admitted for acute on chronic hypercapnic respiratory failure. Patient was placed on BiPAP ans a repeat ABG showed a pH of 7.35, PCO2 of 76, PO2 of 92 bicarbonate of 41, SaO2 of 95 on BiPAP. She is currently on prednisone 40 mg daily, doxycycline 100 mg twice a day by mouth, Atrovent nebulizer every 6 hours as well as Xopenex nebulizers every 6 hours. She states that shes feeling better since yesterday. Historian: patient Onset: other (symptoms started 3 days prior to admission) Review of Systems Constitutional: reports: as stated in HPI Eyes: reports: as stated in HPI ENT: reports: as stated in HPI Cardiovascular: reports: as stated in HPI Respiratory: reports: as stated in HPI, cough, shortness of breath, wheezing, sputum production, AHN, PND, denies: stridor, cyanosis, hemoptysis Gastrointestinal: reports: nausea Genitourinary - Female: reports: no symptoms Musculoskeletal: reports: as stated in HPI Integumentary: reports: dryness Neurologic: reports: no symptoms Psychiatric: reports: no symptoms Endocrine: no symptoms Hematologic / Lymphatic: no symptoms Allergic / Immunologic: no symptoms All Other Symptoms All Other Systems: Reviewed and Negative Past Medical History Past Medical History: Severe chronic obstructive lung disease Obesity hypo-ventilation syndrome Congestive heart failure Hypertension Stage IV chronic kidney disease GERD CAD Hyperlipidemia Paroxysmal atrial fibrillation Gout 6 mm nodule in the right upper lobe Iron deficiency anemia Right rib fractures Past Medical History: A Fib, congestive heart failure, COPD, depression, high cholesterol, hypothyroidism, other Past Surgical History: Total hip replacement of right hip Total replacement of right shoulder joint Cholecystectomy Cervical spinal fusion Wrist surgery Past Surgical History: cholecystectomy Family History Diabetes mellitus MOTHER FH: CAD (coronary artery disease) MOTHER SISTER Mother from coronary artery disease and diabetes Father had CAD but in a motor vehicle accident. One sister who is from myocardial infarction. Currently her daughter assists her with activities of daily living. Other: Other Social History Patient has a 90 pack history of cigarette smoking she quit in 2009 she denies any alcohol use or illicit drug use. Her occupational history is significant for working at a [employer] Hx Tobacco Use In Past Year?: No Smoking Status: Former Smoker Alcohol: never Drug Use: none Marital status: single Housing status: lives with family Occupational Status: retired Immunizations History of Influenza Vaccine: Yes Influenza Vaccine Date: May 19, 2016 History of Tetanus Vaccine?: Yes Tetanus Immunization Date: Jan 11, 2008 History of Pneumococcal: Yes Pneumococcal Date: May 19, 2016 History of MDRO History of MDRO: Yes Type of MDRO: VRE Allergies Coded Allergies: Adhesives (Verified Allergy, Severe, RED RASH, 01/26/17) Latex1 -Allergic Contact Dermititis (Verified Adverse Reaction, Mild, TAPE -SORE, 01/26/17) Morphine (Verified Adverse Reaction, Mild, DELUSIONS, 01/26/17) Current Medications Reported Home Medications Medications Dose Route/Sig Max Daily Dose Days Date Category Dose Instructions Combivent Respimat (Ipratropium-Albuterol) 1 Aer Aer 1 Puffs INH QID PRN 09/16/16 Rx Lactinex (Lactobacillus Acidophilus) Tab 1 Tab PO TID 09/04/16 Rx Klor-Con (Potassium Chloride) 20 Meq Tabcr 20 Meq PO Q2D 30 08/31/16 Rx every other day Proventil 0.083% 2.5MG/3ML (Albuterol Sulf) 2.5 Mg/3 Ml Nebu 2.5 Mg INH QID PRN 08/31/16 Rx Advair Diskus 500/50 60 Dose (Fluticasone Prop/Salmeterol) 1 Ea Aerp 1 Puffs INH BID 30 08/31/16 Rx Tylenol (Acetaminophen) 325 Mg Tab 650 Mg PO Q4H PRN 08/31/16 Reported Kp Ferrous Sulfate (Ferrous Sulfate) 325 Mg Tab 1 Tab PO DAILY 30 08/31/16 Reported Bumetanide 1 Mg Tab 1 Mg PO BID 30 06/15/16 Rx Losartan Potassium 50 Mg Tab 50 Mg PO QAM 30 06/02/16 Rx Lipitor (Atorvastatin) 20 Mg Tab 20 Mg PO DAILY 06/01/16 Reported Certavite/Antioxidants (Multivitamins/Minerals) 1 Tab Tab 1 Tab PO DAILY 06/01/16 Reported Propafenone Hcl 150 Mg Tab 150 Mg PO TID 05/29/16 Reported Zyloprim (Allopurinol) 300 Mg Tab 300 Mg PO DAILY 05/29/16 Reported Synthroid (Levothyroxine Sodium) 88 Mcg Tab 88 Mcg PO DAILY 05/29/16 Reported Toprol Xl (Metoprolol Succinate) 50 Mg Tab 50 Mg PO DAILY 06/08/13 Reported Neurontin (Gabapentin) 300 Mg Cap 300 Mg PO TID 06/08/13 Reported Aspirin Ec (Aspirin) 81 Mg Tab 81 Mg PO DAILY 04/03/13 Reported Zantac (Ranitidine HCl) 150 Mg Tab 150 Mg PO BID 03/08/13 Reported Physical Physical Exam Vital Signs: Date Time Temp Pulse Resp B/P (MAP) Pulse Ox O2 Delivery O2 Flow Rate FiO2 01/27/17 08:00 Nasal Cannula 4.0 01/27/17 08:00 Nasal Cannula 4.0 01/27/17 07:50 36.6 81 18 115/55 (75) 95 Nasal Cannula 4.0 01/27/17 06:55 91 18 94 Nasal Cannula 4.0 01/27/17 02:14 71 94 4.0 01/27/17 02:13 71 18 94 Nasal Cannula 4.0 01/27/17 01:00 36.6 80 22 148/75 95 Nasal Cannula 4.0 01/27/17 00:33 80 22 127/51 97 Nasal Cannula 4.0 01/27/17 00:04 88 01/26/17 23:12 82 18 124/56 97 01/26/17 22:35 81 18 122/63 98 Nasal Cannula 4.0 01/26/17 21:21 70 18 96 Nasal Cannula 4.0 01/26/17 20:59 98 Nasal Cannula 4.0 01/26/17 20:50 76 01/26/17 20:49 99 Nasal Cannula 4.0 01/26/17 20:47 99 Nasal Cannula 4.0 01/26/17 20:42 36.6 79 28 139/52 98 Nasal Cannula 4.0 Vital signs since admission: Afebrile 36C, blood pressure 115/55, pulse 71-91, respiratory rate between 18-22, pulse ox 94-97% on 4 L nasal cannula. Head: normocephalic, atraumatic Skin: Significant for seborrheic dermatitis on face. Eyes: normal inspection, EOMI, sclerae normal ENT: normal ENT inspection, pharynx normal Neck: supple, no adenopathy, trachea midline Respiratory/Chest: Good air entry bilaterally with mildly bibasilar crackles Cardiovascular: regular rate, rhythm, no edema, no murmur Abdomen / GI: normal bowel sounds, non tender, morbidly obese Back: Intact Extremities: normal inspection, normal range of motion, trace edema of bilateral lower extremities no clubbing, no cyanosis. Neurologic/Psych: no motor/sensory deficits, awake alert oriented 3 Diagnostics Labs Results Past 24 Hours Test 01/26/17 20:16 01/26/17 21:03 01/26/17 23:30 01/27/17 02:28 Range/Units White Blood Count 14.49 4.8-10.8 K/uL Red Blood Count 3.10 4.2-5.4 M/uL Hemoglobin 9.4 12.0-16.0 g/dL Hematocrit 31.4 37-47 % Mean Corpuscular Volume 101.3 80-100 fL Mean Corpuscular Hemoglobin 30.3 25-34 pg Mean Corpuscular Hemoglobin Concent 29.9 32-36 g/dl Platelet Count 228 130-400 K/uL Mean Platelet Volume 9.1 7.4-10.4 fL Neutrophils (%) (Auto) 72.5 % Lymphocytes (%) (Auto) 16.2 % Monocytes (%) (Auto) 6.7 % Eosinophils (%) (Auto) 4.0 % Basophils (%) (Auto) 0.3 % Neutrophils # (Auto) 10.50 1.4-6.5 K/uL Lymphocytes # (Auto) 2.35 1.2-3.4 K/uL Monocytes # (Auto) 0.97 0.11-0.59 K/uL Eosinophils # (Auto) 0.58 0-0.5 K/uL Basophils # (Auto) 0.04 0-0.2 K/uL RDW Standard Deviation 55.6 36.4-46.3 fL RDW Coefficient of Variation 15.2 11.5-14.5 % Immature Granulocyte % (Auto) 0.3 % Immature Granulocyte # (Auto) 0.05 0.00-0.02 K/uL Prothrombin Time 11.1 9.0-12.0 SECONDS Prothromb Time International Ratio 1.0 0.9-1.1 Activated Partial Thromboplast Time 25.1 21.0-31.0 SECONDS Partial Thromboplastin Ratio 1.0 Sodium Level 139 136-145 mmol/L Potassium Level 3.8 3.5-5.1 mmol/L Chloride Level 93 98-107 mmol/L Carbon Dioxide Level 41 21-32 mmol/L Anion Gap 5.0 3-11 mmol/L Blood Urea Nitrogen 37 7-18 mg/dl Creatinine 1.90 0.60-1.20 mg/dl Est Creatinine Clear Calc Drug Dose 36.6 ml/min Estimated GFR () 30.9 Estimated GFR (Non- 26.6 BUN/Creatinine Ratio 19.3 10-20 Random Glucose 132 70-99 mg/dl Calcium Level 9.6 8.5-10.1 mg/dl Magnesium Level 1.7 1.8-2.4 mg/dl Total Bilirubin 0.2 0.2-1 mg/dl Aspartate Amino Transf (AST/SGOT) 10 15-37 U/L Alanine Aminotransferase (ALT/SGPT) 17 12-78 U/L Alkaline Phosphatase 75 45-117 U/L Total Protein 7.4 6.4-8.2 gm/dl Albumin 3.2 3.4-5.0 gm/dl Globulin 4.2 2.5-4.0 gm/dl Albumin/Globulin Ratio 0.8 0.9-2 Bedside Troponin I < 0.030 0-0.045 ng/ml Arterial Blood pH 7.29 7.35 7.35-7.45 Arterial Blood Partial Pressure CO2 91 76 35-46 mmHg Arterial Blood Partial Pressure O2 94 92 80-95 mm/Hg Arterial Blood HCO3 42 41 19-24 mmol/L Arterial Blood Oxygen Saturation 95.0 95.1 90-95 % Arterial Blood Base Excess 12.9 13.3 -9-1.8 mEq/L Arterial Blood Gas Delivery 4 LITERS BIPAP Alvaro Test POS POS POS Lactic Acid Level 1.9 0.4-2.0 mmol/L Test 01/27/17 03:20 01/27/17 05:51 Range/Units Urine Color YELLOW Urine Appearance CLEAR CLEAR Urine pH 5.0 4.5-7.5 Urine Specific [place] 1.019 1.000-1.030 Urine Protein NEG NEG Urine Glucose (UA) NEG NEG Urine Ketones NEG NEG Urine Occult Blood NEG NEG Urine Nitrite NEG NEG Urine Bilirubin NEG NEG Urine Urobilinogen NEG NEG Urine Leukocyte Esterase NEG NEG White Blood Count 9.97 4.8-10.8 K/uL Red Blood Count 3.14 4.2-5.4 M/uL Hemoglobin 9.2 12.0-16.0 g/dL Hematocrit 31.5 37-47 % Mean Corpuscular Volume 100.3 80-100 fL Mean Corpuscular Hemoglobin 29.3 25-34 pg Mean Corpuscular Hemoglobin Concent 29.2 32-36 g/dl Platelet Count 192 130-400 K/uL Mean Platelet Volume 9.4 7.4-10.4 fL Neutrophils (%) (Auto) 93.8 % Lymphocytes (%) (Auto) 5.3 % Monocytes (%) (Auto) 0.3 % Eosinophils (%) (Auto) 0.1 % Basophils (%) (Auto) 0.1 % Neutrophils # (Auto) 9.35 1.4-6.5 K/uL Lymphocytes # (Auto) 0.53 1.2-3.4 K/uL Monocytes # (Auto) 0.03 0.11-0.59 K/uL Eosinophils # (Auto) 0.01 0-0.5 K/uL Basophils # (Auto) 0.01 0-0.2 K/uL RDW Standard Deviation 54.8 36.4-46.3 fL RDW Coefficient of Variation 15.0 11.5-14.5 % Immature Granulocyte % (Auto) 0.4 % Immature Granulocyte # (Auto) 0.04 0.00-0.02 K/uL Nucleated RBC Absolute Count (auto) 0.02 0-0 K/uL Nucleated Red Blood Cells % 0.2 % Sodium Level 137 136-145 mmol/L Potassium Level 3.7 3.5-5.1 mmol/L Chloride Level 94 98-107 mmol/L Carbon Dioxide Level 41 21-32 mmol/L Anion Gap 2.0 3-11 mmol/L Blood Urea Nitrogen 32 7-18 mg/dl Creatinine 1.60 0.60-1.20 mg/dl Est Creatinine Clear Calc Drug Dose 43.1 ml/min Estimated GFR () 38.0 Estimated GFR (Non- 32.8 BUN/Creatinine Ratio 20.1 10-20 Random Glucose 204 70-99 mg/dl Calcium Level 9.2 8.5-10.1 mg/dl Magnesium Level 1.9 1.8-2.4 mg/dl Hepatitis C Antibody Screen NEG NEG Microbiology Results 01/26/17 Blood Culture, Received Pending 01/26/17 Blood Culture, Received Pending Impression Assessment and Plan Acute on chronic hypercarbic respiratory failure COPD exacerbation Obesity hypoventilation syndrome Right upper lobe subcentimeter nodule Ms. Lee is having an acute on chronic hypercarbic respiratory failure that may have been precipitated by a COPD exacerbation. Patient states that she has had increased sputum quantity, a change in sputum charactersitics as well as decreased exercise tolerance. She has had multiple admissions over the last few months. She may benefit from the roflulimast. The patient is morbidly obese at baseline and has obesity hypoventilation syndrome. However increasing FiO2 can precipitate worsening hypercapnia. I do agree with BiPAP at night. She is currently not in respiratory distress I do not think she needs it continuously. She should however continue with nasal cannula at 3-4 L. She should not require higher amounts of FiO2. I would titrate FiO2 to a SaO2 of 88-92%. I do recommend that she avoid any sedatives as this can exacerbate hypercapnia. Continue with empiric antibiotics, prednisone steroid taper and nebulizers. She has a pulmonary nodule that has been seen on previous CT scan which should be followed up in April. On discharge is to follow-up with Sonam WINKLER/Dr. Jimenez in pulmonary clinic. I appreciate the consult. Please contact me if you have any further questions or concerns. Advanced Directives Living Will: none
[2017-01-27] MEDS ORDERED: VANCOMYCIN INJ 2,800 MG in SODIUM CHLORIDE 0.9% 500ML 500 ML IV SCH (20:00)
[2017-01-27] MEDS ORDERED: VANCOMYCIN CONSULT ACTIVE PRN (20:00)
--- NOTE | 2017-01-27 20:27 | Pharmacy Progress Note ---
Pharmacy Abx Initial Consult Date of Service Jan 27, 2017. Pharmacy Dosing Scope Date of Consult: 01/27/17 Consultation requested by: Dr. Lowery Pharmacy is consulted to initiate vancomycin IV dosing therapy, order appropriate labs and adjust drug dose/frequency. Subjective The patient is a 66 year old female admitted on Jan 26, 2017 at 23:51 with Acute on chronic hypoxemic, hypercapnic respiratory failure secondary to COPD exacerbation SIMONA on CPAP. Today, one of two blood cx are grew gm positive cocci and she is ordered vancomycin. Objective Height (Feet): 5 Height (Inches): 4.00 Weight (Kilograms): 120.900 Vital Signs (Past 12Hrs) Vital Signs Past 12 Hours Date Time Temp Pulse Resp B/P (MAP) Pulse Ox O2 Delivery O2 Flow Rate FiO2 01/27/17 19:03 92 18 98 Nasal Cannula 4.0 01/27/17 16:54 98 119/61 (80) 01/27/17 16:00 Nasal Cannula 4.0 01/27/17 15:56 36.7 93 19 121/67 (85) 96 Nasal Cannula 4.0 01/27/17 14:28 94 18 98 Nasal Cannula 4.0 01/27/17 13:43 85 Lab Results (24Hrs) Laboratory Tests (24 Hours) Test 01/26/17 23:30 01/27/17 05:51 Lactic Acid Level 1.9 mmol/L (0.4-2.0) White Blood Count 9.97 K/uL (4.8-10.8) Red Blood Count 3.14 M/uL (4.2-5.4) L Hemoglobin 9.2 g/dL (12.0-16.0) L Hematocrit 31.5 % (37-47) L Mean Corpuscular Volume 100.3 fL (80-100) H Mean Corpuscular Hemoglobin 29.3 pg (25-34) Mean Corpuscular Hemoglobin Concent 29.2 g/dl (32-36) L Platelet Count 192 K/uL (130-400) Mean Platelet Volume 9.4 fL (7.4-10.4) Neutrophils (%) (Auto) 93.8 % Lymphocytes (%) (Auto) 5.3 % Monocytes (%) (Auto) 0.3 % Eosinophils (%) (Auto) 0.1 % Basophils (%) (Auto) 0.1 % Neutrophils # (Auto) 9.35 K/uL (1.4-6.5) H Lymphocytes # (Auto) 0.53 K/uL (1.2-3.4) L Monocytes # (Auto) 0.03 K/uL (0.11-0.59) L Eosinophils # (Auto) 0.01 K/uL (0-0.5) Basophils # (Auto) 0.01 K/uL (0-0.2) Micro Results Date/Time Source Procedure Growth Status 01/26/17 23:30 Blood Blood Culture Pending Received 01/26/17 23:25 Blood Blood Culture - Preliminary Gram Positive Cocci Resulted 01/27/17 19:20 Sputum Expectorated Sputum Gram Stain Pending Received 01/27/17 19:20 Sputum Expectorated Sputum Sputum Culture Pending Received Risk Factors for Resistance * Antimicrobial use within the last 90 days--doxycycline 100mg PO BID (started prior to admission)/ * 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 Vancomycin IV * Loading dose: 2800 mg (~23 mg/kg) * Goal trough level for indication : 15 to 20 mcg/mL * Trough/Random level ordered for 01/28 with AM labs * A less than traditional dose and/or extended dosing interval will be selected following tomorrow AM assessment of random vancomycin level. THis is due to likelihood of drug accumulation in obese patient/patient with h/o CKD. Pharmacy will continue to follow and will adjust dose/frequency as necessary. Thank you.
[2017-01-27] MEDS: DOXYCYCLINE HYCLATE 100 MG CAP PO SCH (20:30)
[2017-01-28] VITALS (13 sets, daily range): BP systolic 112–146; BP diastolic 57–73; PULSE 68–105; TEMP 36.5–36.8; O2SAT 81–99
[2017-01-28] MEDS: IPRATROPIUM BROMIDE NEB SOLN 0.02% 2.5 ML VIAL INH SCH ×4 (02:15→20:20)
[2017-01-28] MEDS: LEVALBUTEROL 1.25MG/0.5ML NEB INH SCH ×4 (02:15→20:20)
[2017-01-28] MEDS: HEPARIN SOD 5000 UNIT/0.5 ML CARP SQ SCH ×3 (05:38→21:09)
[2017-01-28] MEDS: LEVOTHYROXINE 88 MCG TAB PO SCH (05:39)
[2017-01-28 05:43] LABS: HEMATOCRIT 31.4 % (37-47); MEAN CELL VOLUME 101.3 fL (80-100); MEAN CORPUSCULAR HEMOGLOBIN 29.7 pg (25-34); MEAN CORPUSCULAR HGB CONC 29.3 g/dl (32-36); PLATELET COUNT 202 K/uL (130-400)
[2017-01-28 06:38] LABS: BUN/CREATININE RATIO 30.4 (10-20); CALCIUM 9.4 mg/dl (8.5-10.1); CREATININE 1.3 mg/dl (0.60-1.20)
[2017-01-28] MEDS: LOSARTAN POTASSIUM 50 MG TAB PO SCH (07:31)
[2017-01-28] MEDS: RANITIDINE HCL 150 MG TAB PO SCH ×2 (07:32→21:04)
[2017-01-28] MEDS: ALLOPURINOL 300 MG TAB PO SCH (07:32)
[2017-01-28] MEDS: ASPIRIN 81 MG ECTAB PO SCH (07:32)
[2017-01-28] MEDS: ATORVASTATIN 20 MG TAB PO SCH (07:32)
[2017-01-28] MEDS: METOPROLOL SUCC 50MG EXT REL TAB PO SCH (07:32)
[2017-01-28] MEDS: CEROVITE ADV FORMULA TAB PO SCH (07:32)
[2017-01-28] MEDS: LACTOBACILLUS ACIDOPHILUS (FLORANEX) TAB PO SCH ×3 (07:32→21:01)
[2017-01-28] MEDS: FERROUS SULFATE 325 MG TAB PO SCH (07:32)
[2017-01-28] MEDS: DOXYCYCLINE HYCLATE 100 MG CAP PO SCH (07:32)
[2017-01-28] MEDS: PROPAFENONE HCL 150 MG TAB PO SCH ×3 (07:33→21:03)
[2017-01-28] MEDS: GABAPENTIN 100 MG CAP PO SCH ×3 (07:33→21:02)
[2017-01-28] MEDS: ROFLUMILAST 500 MCG TAB PO SCH (07:33)
[2017-01-28] MEDS: BUMETANIDE 1 MG TAB PO SCH ×2 (08:08→17:33)
[2017-01-28 09:03] LABS: ALLEN TEST POS (POS); ARTERIAL BLD GAS O2 SATURATION 95.2 % (90-95); ARTERIAL BLOOD GAS BASE EXCESS 16.6 mEq/L (-9-1.8); ARTERIAL BLOOD GAS HCO3 45 mmol/L (19-24); ARTERIAL BLOOD GAS PO2 93 mm/Hg (80-95); ARTERIAL BLOOD GAS pH 7.33 (7.35-7.45); O2 ADMINISTRATION 4
--- NOTE | 2017-01-28 09:21 | Clinical Documentation Query ---
CLINICAL DOCUMENTATION QUERY Dr. JOSE, In your clinical opinion is this patient being managed for: (+ ) Chronic R sided heart failure with preserved EF ( ) Other explanation of clinical findings (Please Explain) ( ) Unable to determine (Please Define) ( ) Need to Discuss ( ) Not Agree The medical record reflects the following clinical findings, treatment, and risk factors. Clinical Indicators: 66 yo female presenting with acute/chronic respiratory failure with a known history of chronic R sided heart failure. Review of ECHO from May 2016 showed EF of 65-70% with grade I diastolic dysfunction Treatment: chronic management includes po bumex, cozaar, toprol xl, Risk Factors: COPD, CKD, HTN, OH, A fib, morbid obesity, SIMONA Please clarify and document your clinical opinion in the progress notes and discharge summary. Terms such as "probable", "suspected", "likely", "questionable", "possible", or "still to be ruled out" are acceptable. IF IN AGREEMENT, YOU MUST DOCUMENT ABOVE DIAGNOSTIC STATEMENT IN DAILY PROGRESS NOTES AND DISCHARGE SUMMARY. This document is not part of the patient's record. Thank You, Hayde Calabrese, RN [phone]
[2017-01-28] MEDS ORDERED: CONSULT PHARMACY STA (10:36)
--- NOTE | 2017-01-28 11:22 | Progress Note ---
Internal Med Progress Note Date of Service: Jan 28, 2017. Provider Documentation: SUBJECTIVE: Patient is feeling better today. SOB is near baseline. Cough with minimal sputum. No chest pain, fever, chills, edema. On 4 L oxygen as at home S/P BIPAP overnight OBJECTIVE: Vital Signs-as noted below Exam: General-AAO X 3 , no distress, Morbidly obese Neck-Supple, Short neck Lungs-AEBE decreased, no wheezing, Heart-S1, S2 normal Extremities-No edema Lab data as noted below. ASSESSMENT & PLAN: ASSESSMENT AND PLAN: ACUTE ON CHRONIC HYPERCARBIC RESPIRATORY FAILURE - Improved Secondary to COPD exacerbation in setting of Morbid obesity, SIMONA on CPAP, Chronic respiratory acidosis, Chronic right sided heart failure as per records -On 4 L oxygen as at home. Used BIPAP 12/5 overnight -Clinically improved -feels like near her baseline -On Nebs, Prednisone, Doxycycline -Work up- ABGs reviewed- PH 7.2 with PCO2 91; improved to 7.35, 76; CXR- no acute abnormalities PLAN: Will benefit from BIPAP overnight. Will do Nocturnal Pulse oximetry and ABG on 2 L oxygen to see if we could get her BIPAP ABNORMAL BLOOD CULTURE 1/2 bottles- GPC. likely contaminant -No signs of sepsis/infection -IV Vancomycin till cultures come back PAROXYSMAL ATRIAL FIBRILLATION In normal sinus rhythm -Stable HTN -Stable CKD -Creatinine is near baseline . Improved to 1.3 today CHRONIC ANEMIA SECONDARY TO CKD -Hb stable at baseline DVT prophylaxis, Heparin SQ DO NOT RESUSCITATE DISPOSITION Expected discharge home when stable. Likely in AM Discussed with daughter by bedside Vital Signs: Date Time Temp Pulse Resp B/P (MAP) Pulse Ox O2 Delivery O2 Flow Rate FiO2 01/28/17 08:00 84 114/69 (84) 01/28/17 08:00 Nasal Cannula 4.0 01/28/17 07:54 36.8 79 16 112/57 (75) 97 4.0 01/28/17 06:56 68 18 99 Nasal Cannula 4.0 01/28/17 02:15 88 18 98 Nasal Cannula 4.0 01/28/17 00:03 36.6 84 18 132/73 (92) 93 BiPAP 01/28/17 00:00 98 Nasal Cannula 4.0 01/27/17 21:26 76 98 4.0 01/27/17 20:30 96 108/58 (75) 01/27/17 19:03 92 18 98 Nasal Cannula 4.0 01/27/17 16:54 98 119/61 (80) 01/27/17 16:00 Nasal Cannula 4.0 01/27/17 15:56 36.7 93 19 121/67 (85) 96 Nasal Cannula 4.0 01/27/17 14:28 94 18 98 Nasal Cannula 4.0 01/27/17 13:43 85 Lab Results: Results Past 24 Hours Test 01/28/17 05:30 01/28/17 08:45 Range/Units White Blood Count 14.50 4.8-10.8 K/uL Red Blood Count 3.10 4.2-5.4 M/uL Hemoglobin 9.2 12.0-16.0 g/dL Hematocrit 31.4 37-47 % Mean Corpuscular Volume 101.3 80-100 fL Mean Corpuscular Hemoglobin 29.7 25-34 pg Mean Corpuscular Hemoglobin Concent 29.3 32-36 g/dl RDW Standard Deviation 55.2 36.4-46.3 fL RDW Coefficient of Variation 15.0 11.5-14.5 % Platelet Count 202 130-400 K/uL Mean Platelet Volume 9.0 7.4-10.4 fL Sodium Level 143 136-145 mmol/L Potassium Level 4.0 3.5-5.1 mmol/L Chloride Level 97 98-107 mmol/L Carbon Dioxide Level 45 21-32 mmol/L Anion Gap 1.0 3-11 mmol/L Blood Urea Nitrogen 40 7-18 mg/dl Creatinine 1.30 0.60-1.20 mg/dl Est Creatinine Clear Calc Drug Dose 53.1 ml/min Estimated GFR () 48.8 Estimated GFR (Non- 42.1 BUN/Creatinine Ratio 30.4 10-20 Random Glucose 112 70-99 mg/dl Calcium Level 9.4 8.5-10.1 mg/dl Random Vancomycin Level 28.3 mcg/ml Arterial Blood pH 7.33 7.35-7.45 Arterial Blood Partial Pressure CO2 86 35-46 mmHg Arterial Blood Partial Pressure O2 93 80-95 mm/Hg Arterial Blood HCO3 45 19-24 mmol/L Arterial Blood Oxygen Saturation 95.2 90-95 % Arterial Blood Base Excess 16.6 -9-1.8 mEq/L Arterial Blood Gas Delivery 4 Alvaro Test POS POS Microbiology Results 01/27/17 Gram Stain - Final, Resulted 01/27/17 Sputum Culture, Resulted Pending
--- NOTE | 2017-01-28 11:44 | Pharmacy Progress Note ---
Pharmacy Abx Dose Progress Nt Date of Service Jan 28, 2017. Pharmacy Dosing Scope The patient is currently receiving the following antimicrobial agents per Pharmacy consult: Vancomycin 2800 mg IV x 1 last evening Objective Height (Feet): 5 Height (Inches): 4.00 Weight (Kilograms): 120.900 Vital Signs (Past 12Hrs) Vital Signs Past 12 Hours Date Time Temp Pulse Resp B/P (MAP) Pulse Ox O2 Delivery O2 Flow Rate FiO2 01/28/17 08:00 84 114/69 (84) 01/28/17 08:00 Nasal Cannula 4.0 01/28/17 07:54 36.8 79 16 112/57 (75) 97 4.0 01/28/17 06:56 68 18 99 Nasal Cannula 4.0 01/28/17 02:15 88 18 98 Nasal Cannula 4.0 01/28/17 00:03 36.6 84 18 132/73 (92) 93 BiPAP 01/28/17 00:00 98 Nasal Cannula 4.0 Lab Results (24Hrs) Laboratory Tests (24 Hours) Test 01/28/17 05:30 White Blood Count 14.50 K/uL (4.8-10.8) H Micro Results Date/Time Source Procedure Growth Status 01/26/17 23:30 Blood Blood Culture - Preliminary NO GROWTH TO DATE. Resulted 01/26/17 23:25 Blood Blood Culture - Preliminary Gram Positive Cocci Resulted 01/27/17 19:20 Sputum Expectorated Sputum Gram Stain - Final Resulted 01/27/17 19:20 Sputum Expectorated Sputum Sputum Culture Pending Resulted Risk Factors for Resistance * Antimicrobial use within the last 90 days--doxycycline 100mg PO BID (started prior to admission) Assessment & Plan Assessment 66 year old female receiving vancomycin for treatment of 1 of 2 positive blood cultures; patient also continued on doxycycline for COPD exacerbation Day # 2 of vancomycin therapy SCr improved and at baseline for patient Random level drawn this AM after loading dose indicates that patient's kinetics similar to est. population kinetics * Vd 0.6 L/kg, Shaheen 0.046, t1/2 15 hrs Plan Vancomycin IV * Random level indicates that patient should be re-dosed ~1400 today * Will start maintenance dose of 1500 mg (12.4 mg/kg) IV q18h * Goal trough level for bacteremia : 15 to 20 mcg/mL * Trough level ordered for: 01/29/17 - this will NOT be at steady state but need to assess for accumulation * Less than traditional dose and/or extended dosing interval selected due to likelihood of drug accumulation in obese patient/CKD. Pharmacy will continue to follow and will adjust dose/frequency as necessary. Thank you.
--- NOTE | 2017-01-28 12:38 | Pulmonology Progress Note ---
Pulmonary Progress Note Date of Service Jan 28, 2017. Attending Dr. Niño Subjective Patient seen and examined at bedside this morning. She states that she rested well overnight. She felt little claustrophobic with BiPAP machine. She states that its different from what she has at home. She is currently on 4 L nasal cannula saturating 97%. I titrated it to 2.5 L nasal cannula without any decrease in SaO2. She states that she still has some productive cough, but denies any further shortness of breath. Objective Vital signs Temperature 36.8, blood pressure 112/57 to 132/74, pulse ranging between 68-84, respiratory rate ranging between 16-18, pulse ox 93-99. Head: normocephalic, atraumatic Skin: Significant for seborrheic dermatitis on face. Eyes: normal inspection, EOMI, sclerae normal ENT: normal ENT inspection, pharynx normal Neck: supple, no adenopathy, trachea midline Respiratory/Chest: Good air entry bilaterally with mildly bibasilar crackles Cardiovascular: regular rate, rhythm, no edema, no murmur Abdomen / GI: normal bowel sounds, non tender, morbidly obese Back: Intact Extremities: normal inspection, normal range of motion, trace edema of bilateral lower extremities no clubbing, no cyanosis. Neurologic/Psych: no motor/sensory deficits, awake alert oriented 3 She is currently on vancomycin 1.5 every 18 hours, doxycycline 100 mg twice a day by mouth, Roflumilast 500 g daily by mouth, grams daily by mouth, Atrovent and Xopenex every 4 hours when necessary. Blood cultures from 01/26/2017 showed gram-positive cocciculture pending Sputum from 01/27/2017 shows gram negative bacilliculture pending Chest x-ray from 01/26/2017 FINDINGS: The heart is mildly enlarged. There is mild interstitial thickening but no evidence of overt failure. There is no lobar consolidation. There are no significant pleural effusions. There is evidence for prior vertebral plasty.[ Assessment & Plan Acute on chronic hypercarbic respiratory failure COPD exacerbation Obesity hypoventilation syndrome Right upper lobe subcentimeter nodule Patient appears to be clinically improving. Continue with BiPAP at night and oxygen during the day. 2-3 L nasal cannula should be sufficient. Keep saturations between 88 to 92%. Continue with roflulimast. The patient is morbidly obese at baseline and has obesity hypoventilation syndrome. However increasing FiO2 can precipitate worsening hypercapnia. Avoid sedatives if possible. Continue with empiric antibiotics, prednisone steroid taper and nebulizers. She has a pulmonary nodule that has been seen on previous CT scan which should be followed up in April. On discharge she should follow-up with Sonam WINKLER/Dr. Jimenez in pulmonary clinic. Will sign off case today please reconsult me if you have any further questions or concerns. Data Medications: Current Inpatient Medications Medications (Trade) Dose Ordered Sig/Rupinder Route Start Time Stop Time Status Last Admin Dose Admin Doxycycline Hyclate (Vibramycin Cap) 100 mg BID PO 01/27/17 21:00 02/03/17 20:59 01/28/17 07:32 100 MG Prednisone (PredniSONE TAB) 40 mg DAILY PO 01/27/17 09:00 02/01/17 08:59 01/28/17 07:32 40 MG Heparin Sodium (Porcine) (Heparin Sq 5000 Unit/0.5ml) 5,000 unit Q8H SQ 01/27/17 06:00 02/26/17 05:59 01/28/17 05:38 5,000 UNIT Acetaminophen (Tylenol Tab) 650 mg Q4H PRN PO 01/27/17 00:15 02/26/17 00:14 01/27/17 04:33 650 MG Hydromorphone HCl (Dilaudid Inj) 0.5 mg Q6H PRN IV 01/27/17 00:15 02/10/17 00:14 Tramadol HCl (Ultram Tab) 25 mg Q6H PRN PO 01/27/17 00:15 02/26/17 00:14 Allopurinol (Zyloprim Tab) 300 mg DAILY PO 01/27/17 09:00 02/26/17 08:59 01/28/17 07:32 300 MG Aspirin (Ecotrin Tab) 81 mg DAILY PO 01/27/17 09:00 02/26/17 08:59 01/28/17 07:32 81 MG Atorvastatin Calcium (Lipitor Tab) 20 mg DAILY PO 01/27/17 09:00 02/26/17 08:59 01/28/17 07:32 20 MG Bumetanide (Bumex Tab) 1 mg BID17 PO 01/27/17 09:00 02/26/17 08:59 01/28/17 08:08 1 MG Gabapentin (Neurontin Cap) 200 mg TID PO 01/27/17 09:00 02/26/17 08:59 01/28/17 07:33 200 MG Lactobacillus Acidophilus (Floranex Tab) 4 tab TID PO 01/27/17 09:00 02/26/17 08:59 01/28/17 07:32 4 TAB Levothyroxine Sodium (Synthroid Tab) 88 mcg DAILYBB PO 01/27/17 06:30 02/26/17 06:29 01/28/17 05:39 88 MCG Losartan Potassium (coZAAR TAB) 50 mg QAM PO 01/27/17 09:00 02/26/17 08:59 01/28/17 07:31 50 MG Metoprolol Succinate (Toprol Xl Tab) 50 mg DAILY PO 01/27/17 09:00 02/26/17 08:59 01/28/17 07:32 50 MG Multivitamins/ Minerals (Multivitamin W/ Minerals Tab) 1 tab DAILY PO 01/27/17 09:00 02/26/17 08:59 01/28/17 07:32 1 TAB Propafenone HCl (Rythmol Tab) 150 mg TID PO 01/27/17 09:00 02/26/17 08:59 01/28/17 07:33 150 MG Ranitidine HCl (zANTac TAB) 150 mg BID PO 01/27/17 09:00 02/26/17 08:59 01/28/17 07:32 150 MG Ferrous Sulfate (Feosol Tab) 325 mg DAILY PO 01/27/17 09:00 02/26/17 08:59 01/28/17 07:32 325 MG Ipratropium Imperial (Atrovent 0.02% 0.5MG/2.5ML Neb) 0.5 mg Q6R INH 01/27/17 09:00 02/26/17 08:59 01/28/17 06:55 0.5 MG Levalbuterol (Xopenex 1.25MG/ 0.5ML Neb) 1.25 mg Q6R INH 01/27/17 09:00 02/26/17 08:59 01/28/17 06:55 1.25 MG Ipratropium Imperial (Atrovent 0.02% 0.5MG/2.5ML Neb) 0.5 mg Q4H PRN INH 01/27/17 04:15 02/26/17 04:14 Levalbuterol (Xopenex 1.25MG/ 0.5ML Neb) 1.25 mg Q4H PRN INH 01/27/17 04:15 02/26/17 04:14 Roflumilast (Daliresp Tab) 500 mcg DAILY PO 01/28/17 09:00 02/27/17 08:59 01/28/17 07:33 500 MCG Vancomycin HCl (Consult) 1 ea UD PRN N/A 01/27/17 20:00 02/26/17 19:59 Vancomycin HCl 1500 mg/Sodium Chloride 530 ml @ 200 mls/hr Q18H IV 01/28/17 14:00 02/10/17 13:59 Vital Signs: Date Time Temp Pulse Resp B/P (MAP) Pulse Ox O2 Delivery O2 Flow Rate FiO2 01/28/17 08:00 84 114/69 (84) 01/28/17 08:00 Nasal Cannula 4.0 01/28/17 07:54 36.8 79 16 112/57 (75) 97 4.0 01/28/17 06:56 68 18 99 Nasal Cannula 4.0 01/28/17 02:15 88 18 98 Nasal Cannula 4.0 01/28/17 00:03 36.6 84 18 132/73 (92) 93 BiPAP 01/28/17 00:00 98 Nasal Cannula 4.0 01/27/17 21:26 76 98 4.0 01/27/17 20:30 96 108/58 (75) 01/27/17 19:03 92 18 98 Nasal Cannula 4.0 01/27/17 16:54 98 119/61 (80) 01/27/17 16:00 Nasal Cannula 4.0 01/27/17 15:56 36.7 93 19 121/67 (85) 96 Nasal Cannula 4.0 01/27/17 14:28 94 18 98 Nasal Cannula 4.0 01/27/17 13:43 85 Laboratory Results: Last 24 Hours Test 01/28/17 05:30 01/28/17 08:45 White Blood Count 14.50 K/uL Red Blood Count 3.10 M/uL Hemoglobin 9.2 g/dL Hematocrit 31.4 % Mean Corpuscular Volume 101.3 fL Mean Corpuscular Hemoglobin 29.7 pg Mean Corpuscular Hemoglobin Concent 29.3 g/dl RDW Standard Deviation 55.2 fL RDW Coefficient of Variation 15.0 % Platelet Count 202 K/uL Mean Platelet Volume 9.0 fL Sodium Level 143 mmol/L Potassium Level 4.0 mmol/L Chloride Level 97 mmol/L Carbon Dioxide Level 45 mmol/L Anion Gap 1.0 mmol/L Blood Urea Nitrogen 40 mg/dl Creatinine 1.30 mg/dl Est Creatinine Clear Calc Drug Dose 53.1 ml/min Estimated GFR () 48.8 Estimated GFR (Non- 42.1 BUN/Creatinine Ratio 30.4 Random Glucose 112 mg/dl Calcium Level 9.4 mg/dl Random Vancomycin Level 28.3 mcg/ml Arterial Blood pH 7.33 Arterial Blood Partial Pressure CO2 86 mmHg Arterial Blood Partial Pressure O2 93 mm/Hg Arterial Blood HCO3 45 mmol/L Arterial Blood Oxygen Saturation 95.2 % Arterial Blood Base Excess 16.6 mEq/L Arterial Blood Gas Delivery 4 Alvaro Test POS
[2017-01-28] MEDS ORDERED: LEVOFLOXACIN CONSULT ACTIVE PRN (13:15)
[2017-01-28] MEDS ORDERED: LEVOFLOXACIN 500 MG TAB PO SCH (14:00)
[2017-01-28] MEDS: VANCOMYCIN INJ 1,500 MG in SODIUM CHLORIDE 0.9% 500ML 500 ML IV SCH (14:10)
[2017-01-28] MEDS: ACETAMINOPHEN 325 MG TAB PO PRN (18:52)
[2017-01-28] MEDS ORDERED: VANCOMYCIN INJ 500 MG in SODIUM CHLORIDE 0.9% 250ML 250 ML IV SCH (21:00)
[2017-01-29] VITALS: O2SAT 92
[2017-01-29] MEDS: LEVALBUTEROL 1.25MG/0.5ML NEB INH SCH ×2 (01:49→07:25)
[2017-01-29] MEDS: IPRATROPIUM BROMIDE NEB SOLN 0.02% 2.5 ML VIAL INH SCH ×2 (01:49→07:24)
[2017-01-29] MEDS: LEVOTHYROXINE 88 MCG TAB PO SCH (06:02)
[2017-01-29] MEDS: HEPARIN SOD 5000 UNIT/0.5 ML CARP SQ SCH (06:05)
[2017-01-29 07:09] VITALS: BP 123/74; PULSE 75; TEMP 36.9; O2SAT 97
[2017-01-29] MEDS ORDERED: VANCOMYCIN TROUGH ONE (07:30)
[2017-01-29 07:34] VITALS: PULSE 74; O2SAT 97
[2017-01-29] MEDS: ALLOPURINOL 300 MG TAB PO SCH (07:43)
[2017-01-29] MEDS: BUMETANIDE 1 MG TAB PO SCH (07:44)
[2017-01-29] MEDS: ASPIRIN 81 MG ECTAB PO SCH (07:44)
[2017-01-29] MEDS: CEROVITE ADV FORMULA TAB PO SCH (07:44)
[2017-01-29] MEDS: ATORVASTATIN 20 MG TAB PO SCH (07:44)
[2017-01-29] MEDS: LACTOBACILLUS ACIDOPHILUS (FLORANEX) TAB PO SCH (07:44)
[2017-01-29] MEDS: METOPROLOL SUCC 50MG EXT REL TAB PO SCH (07:44)
[2017-01-29] MEDS: FERROUS SULFATE 325 MG TAB PO SCH (07:44)
[2017-01-29] MEDS: LOSARTAN POTASSIUM 50 MG TAB PO SCH (07:45)
[2017-01-29] MEDS: GABAPENTIN 100 MG CAP PO SCH (07:45)
[2017-01-29] MEDS: ROFLUMILAST 500 MCG TAB PO SCH (07:45)
[2017-01-29] MEDS: RANITIDINE HCL 150 MG TAB PO SCH (07:45)
[2017-01-29] MEDS: PROPAFENONE HCL 150 MG TAB PO SCH (07:46)
[2017-01-29] MEDS: VANCOMYCIN INJ 1,500 MG in SODIUM CHLORIDE 0.9% 500ML 500 ML IV SCH (08:41)
[2017-01-29 08:49] LABS: BUN/CREATININE RATIO 33.1 (10-20); CALCIUM 9.5 mg/dl (8.5-10.1); CREATININE 1.5 mg/dl (0.60-1.20); POTASSIUM 3.8 mmol/L (3.5-5.1)
--- NOTE | 2017-01-29 09:23 | Progress Note ---
Internal Med Progress Note Date of Service: Jan 29, 2017. Provider Documentation: SUBJECTIVE: Patient is feeling better today and eager to be discharged. SOB is near baseline. Cough with sputum No chest pain, fever, chills, edema. On 2.5 L oxygen S/P BIPAP overnight. OBJECTIVE: Vital Signs-as noted below Exam: General-AAO X 3 , no distress, Morbidly obese Neck-Supple, Short neck Lungs-AEBE decreased, no wheezing, Heart-S1, S2 normal Extremities-No edema Lab data as noted below. ASSESSMENT & PLAN: ASSESSMENT AND PLAN: ACUTE ON CHRONIC HYPERCARBIC RESPIRATORY FAILURE - Resolved Secondary to COPD exacerbation in setting of Morbid obesity, SIMONA on CPAP, Chronic respiratory acidosis, Chronic right sided heart failure with preserved EF as per records -On 4 L oxygen as at home--> decreased it to 2.5 L (Goal sao2- 88-92%). BIPAP overnight. -Clinically improved -feels like near her baseline -On Nebs, Prednisone, Levofloxacin. To finish course of antibiotics x 7 days, prednisone taper. Follow up sputum cx results outpatient. -Continue with Oxygen 2.5 L day/night and BIPAP 14/5 at night. -Work up- Sputum culture- GNB, ABGs reviewed- PH 7.2 with PCO2 91; improved to 7.35, 76; CXR- no acute abnormalities ABNORMAL BLOOD CULTURE 1/2 bottles- Staph species - likely contaminant -No signs of sepsis. -Will discontinue empiric antibiotics -Follow up C/S blood cultures PAROXYSMAL ATRIAL FIBRILLATION In normal sinus rhythm -Stable CHRONIC RIGHT SIDED HEART FAILURE WITH PRESERVED EF -Stable HTN -Stable CKD -Creatinine is near baseline . Today 1.5 CHRONIC ANEMIA SECONDARY TO CKD -Hb stable at baseline DVT prophylaxis, Heparin SQ DO NOT RESUSCITATE DISPOSITION Okay to discharge home today Discussed with daughter by bedside Vital Signs: Date Time Temp Pulse Resp B/P (MAP) Pulse Ox O2 Delivery O2 Flow Rate FiO2 01/29/17 08:00 Nasal Cannula 2.5 01/29/17 07:34 74 18 97 Nasal Cannula 2.5 01/29/17 07:09 36.9 75 20 123/74 (90) 97 Nasal Cannula 2.5 01/29/17 00:00 92 Nasal Cannula 2.5 01/28/17 23:05 36.8 77 18 118/67 (84) 97 Nasal Cannula 2.5 01/28/17 21:13 76 98 4.0 01/28/17 20:21 82 18 96 Nasal Cannula 2.5 01/28/17 17:30 91 146/62 (90) 01/28/17 16:00 Nasal Cannula 2.5 01/28/17 15:06 36.5 91 24 124/59 (80) 92 Nasal Cannula 2.0 01/28/17 14:03 84 18 91 Nasal Cannula 2.5 01/28/17 13:38 105 81 Lab Results: Results Past 24 Hours Test 01/29/17 07:45 01/29/17 07:46 Range/Units Vancomycin Level Trough 24.6 SEE COMMENT mcg/ml Sodium Level 140 136-145 mmol/L Potassium Level 3.8 3.5-5.1 mmol/L Chloride Level 94 98-107 mmol/L Carbon Dioxide Level 45 21-32 mmol/L Anion Gap 1.0 3-11 mmol/L Blood Urea Nitrogen 50 7-18 mg/dl Creatinine 1.50 0.60-1.20 mg/dl Est Creatinine Clear Calc Drug Dose 46.0 ml/min Estimated GFR () 41.1 Estimated GFR (Non- 35.4 BUN/Creatinine Ratio 33.1 10-20 Random Glucose 86 70-99 mg/dl Calcium Level 9.5 8.5-10.1 mg/dl
[2017-01-29] MEDS ORDERED: LVQ500 PO (09:27)
[2017-01-29] MEDS ORDERED: PRED10TA PO (09:29)
--- NOTE | 2017-01-29 09:32 | Discharge Instructions ---
Discharge Instructions Date of Service Jan 29, 2017. Admission Reason for Admission: Respiratory Failure, [id number] Discharge Discharge Diagnosis / Problem: 1. COPD exacerbation 2. Acute on chronic hypercarbic respiratory failure Discharge Goals Goal(s): Improve function, Prevent Disease Progression Activity Recommendations Activity Limitations: per Instructions/Follow-up section (as tolerated prior to admission) . Instructions / Follow-Up Instructions / Follow-Up MEDICATION CHANGES: 1. New medication; Prednisone 40 mg daily x 3 days f/b 30 mg daily x 3 days f/b 20 mg daily x 3 days f/b 10 mg daily x 3 days and than discontinue 2. New medication; Levofloxacin 500 mg daily x 6 days MONITOR EKG needs to be done during next office visit to check QTC as on Propafenone and Levofloxacin (QTC on 01/28- 450). Levofloxacin started as sputum cx- GNB. FOLLOW UP 1. Follow up with Dr. Melendez on 02/03/17 at 9: 45 AM 2. Follow up with Pulmonary as per schedule Current Hospital Diet Patient's current hospital diet: AHA Diet (Heart Healthy) Discharge Diet Recommended Diet: AHA Diet (Heart Healthy) Pending Studies Studies pending at discharge: no Medical Emergencies . Who to Call and When: Medical Emergencies: If at any time you feel your situation is an emergency, please call 911 immediately. . Non-Emergent Contact Non-Emergency issues call your: Primary Care Provider . . "Provider Documentation" section prepared by Kandy Caal. . VTE Core Measure Inpt VTE Proph given/why not?: Unfractionated heparin SQ
--- NOTE | 2017-01-29 09:36 | Discharge Summary ---
Discharge Summary Date of Service Jan 29, 2017. Discharge Summary Admission Date: Jan 26, 2017 at 23:51 Discharge Date: Jan 29, 2017 Discharge Disposition: Home Principal Diagnosis: 1. Acute on chronic hypercarbic respiratory failure 2. COPD exacerbation 3. Secondary Diagnoses/Problems: 1. Chronic right sided heart failure with preserved EF 2. Paroxysmal Atrial fibrillation 3. CKD-III 4. Chronic anemia 5. Morbid obesity 6. HTN Procedures: BIPAP Oxygen Nebs Antibiotics Steroids CXR ABGs Sputum/Blood cultures Consultations: Pulmonary, Dr Niño Pending Studies/Follow-Up: Instructions / Follow-Up Instructions / Follow-Up MEDICATION CHANGES: 1. New medication; Prednisone 40 mg daily x 3 days f/b 30 mg daily x 3 days f/b 20 mg daily x 3 days f/b 10 mg daily x 3 days and than discontinue 2. New medication; Levofloxacin 500 mg daily x 6 days MONITOR EKG needs to be done during next office visit to check QTC as on Propafenone and Levofloxacin (QTC on 01/28- 450). Levofloxacin started as sputum cx- GNB. FOLLOW UP 1. Follow up with Dr. Melendez on 02/03/17 at 9: 45 AM 2. Follow up with Pulmonary as per schedule Medication Reconciliation New Medications: Prednisone Tab (Prednisone) 10 Mg Tab 10 MG PO UD for 10 Days, #30 TAB Take 4 tabs daily x 3 days f/b 3 tabs daily x 3 days f/b 2 tabs daily x 3 days f/b 1 tab daily for 3 days and dc Levofloxacin (Levofloxacin) 500 Mg Tab 500 MG PO DAILY@11 for 6 Days, #6 TAB 0 Refills Continued Medications: Acetaminophen (Tylenol) 325 Mg Tab 650 MG PO Q4H PRN for Pain or Fever, TAB Albuterol Sulf (Proventil 0.083% 2.5MG/3ML) 2.5 Mg/3 Ml Nebu 2.5 MG INH QID PRN for SOB/Wheezing, #1 EA Allopurinol (Zyloprim) 300 Mg Tab 300 MG PO DAILY, TAB Aspirin (Aspirin Ec) 81 Mg Tab 81 MG PO DAILY Atorvastatin (Lipitor) 20 Mg Tab 20 MG PO DAILY, TAB Bumetanide (Bumetanide) 1 Mg Tab 1 MG PO BID for 30 Days, #60 TAB Ferrous Sulfate (Kp Ferrous Sulfate) 325 Mg Tab 1 TAB PO DAILY for 30 Days, #30 TAB 3 Refills Fluticasone Prop/Salmeterol (Advair Diskus 500/50 60 Dose) 1 Ea Aerp 1 PUFFS INH BID for 30 Days, #1 INHALER 5 Refills Gabapentin (Neurontin) 300 Mg Cap 300 MG PO TID, CAP Ipratropium-Albuterol (Combivent Respimat) 1 Aer Aer 1 PUFFS INH QID PRN for sob/wheezing, #1 INH Lactobacillus Acidophilus (Lactinex) Tab 1 TAB PO TID, #30 TAB Levothyroxine Sodium (Synthroid) 88 Mcg Tab 88 MCG PO DAILY, TAB Losartan Potassium (Losartan Potassium) 50 Mg Tab 50 MG PO QAM for 30 Days, #30 TAB Metoprolol Succinate (Toprol Xl) 50 Mg Tab 50 MG PO DAILY, TAB Multivitamins/Minerals (Certavite/Antioxidants) 1 Tab Tab 1 TAB PO DAILY Potassium Ext Rel (Klor-Con) 20 Meq Tabcr 20 MEQ PO Q2D for 30 Days, TAB every other day Propafenone Hcl (Propafenone Hcl) 150 Mg Tab 150 MG PO TID Ranitidine (Zantac) 150 Mg Tab 150 MG PO BID, TAB Admission Information HPI (per Admitting provider): Recent confinement last September 2016 for COPD exacerbation. Few days history of cough symptoms productive of yellow sputum, more than usual. Increasing shortness of breath. No aspiration no chest pain. No fever no chills. Patient received IV Solu-Medrol for COPD exacerbation en route to the emergency room. Physical Exam (per Admitting): General Appearance: + obese, + pertinent finding (slightly hard of hearing) Head: normocephalic Eyes: + pertinent finding (pale palpebral conjunctivae) Neck: + pertinent finding (short) Respiratory/Chest: + decreased breath sounds Cardiovascular: regular rate, rhythm Abdomen/GI: + pertinent finding (some distention) Extremities/Musculoskelatal: non-tender, + swelling (minimal lower extremity swelling) Neurologic/Psych: alert (slightly hard of hearing), + pertinent finding Skin: + pallor Hospital Course ASSESSMENT AND PLAN: ACUTE ON CHRONIC HYPERCARBIC RESPIRATORY FAILURE - Resolved Secondary to COPD exacerbation in setting of Morbid obesity, SIMONA on CPAP, Chronic respiratory acidosis, Chronic right sided heart failure with preserved EF as per records -On 4 L oxygen as at home--> decreased it to 2.5 L (Goal sao2- 88-92%). BIPAP overnight. -Clinically improved -feels like near her baseline -On Nebs, Prednisone, Levofloxacin. To finish course of antibiotics x 7 days, prednisone taper. Follow up sputum cx results outpatient. Please monitor QTC while on levofloxacin and propafenone with repeat EKG during next office appt ( EKG on 01/28- QTC 420). As sputum cx growing GNB, had to discharge on levofloxacin. -Continue with Oxygen 2.5 L day/night and BIPAP settings 14/5 at night. -Work up- Sputum culture- GNB, ABGs reviewed- PH 7.2 with PCO2 91; improved to 7.35, 76; CXR- no acute abnormalities ABNORMAL BLOOD CULTURE 1/2 bottles- Staph species - likely contaminant -No signs of sepsis. -Will discontinue empiric antibiotic - vancomycin -Follow up C/S blood cultures PAROXYSMAL ATRIAL FIBRILLATION In normal sinus rhythm -Stable CHRONIC RIGHT SIDED HEART FAILURE WITH PRESERVED EF -Stable HTN -Stable CKD -III -Creatinine is near baseline . Today 1.5 CHRONIC ANEMIA SECONDARY TO CKD -Hb stable at baseline DVT prophylaxis, Heparin SQ DO NOT RESUSCITATE DISPOSITION Okay to discharge home today Discussed with daughter by bedside Total time spent on discharge = 35 MINUTES This includes examination of the patient, discharge planning, medication reconciliation, and communication with other providers. Discharge Instructions Discharge Discharge Diagnosis / Problem: 1. COPD exacerbation 2. Acute on chronic hypercarbic respiratory failure Discharge Goals Goal(s): Improve function, Prevent Disease Progression Activity Recommendations Activity Limitations: per Instructions/Follow-up section (as tolerated prior to admission) . Instructions / Follow-Up Instructions / Follow-Up MEDICATION CHANGES: 1. New medication; Prednisone 40 mg daily x 3 days f/b 30 mg daily x 3 days f/b 20 mg daily x 3 days f/b 10 mg daily x 3 days and than discontinue 2. New medication; Levofloxacin 500 mg daily x 6 days MONITOR EKG needs to be done during next office visit to check QTC as on Propafenone and Levofloxacin (QTC on 01/28- 450). Levofloxacin started as sputum cx- GNB. FOLLOW UP 1. Follow up with Dr. Melendez on 02/03/17 at 9: 45 AM 2. Follow up with Pulmonary as per schedule Current Hospital Diet Patient's current hospital diet: AHA Diet (Heart Healthy) Discharge Diet Recommended Diet: AHA Diet (Heart Healthy) Pending Studies Studies pending at discharge: no Medical Emergencies . Who to Call and When: Medical Emergencies: If at any time you feel your situation is an emergency, please call 911 immediately. . Non-Emergent Contact Non-Emergency issues call your: Primary Care Provider . . "Provider Documentation" section prepared by Kandy Caal. . VTE Core Measure Inpt VTE Proph given/why not?: Unfractionated heparin SQ
--- NOTE | 2017-01-29 09:39 | Pharmacy Progress Note ---
Pharmacy Abx Dose Progress Nt Date of Service Jan 29, 2017. Pharmacy Dosing Scope The patient is currently receiving the following antimicrobial agents per Pharmacy consult: * Vancomycin 1500 mg IV every 18 hours * Levaquin 500mg po daily Objective Height (Feet): 5 Height (Inches): 4.00 Weight (Kilograms): 120.900 Vital Signs (Past 12Hrs) Vital Signs Past 12 Hours Date Time Temp Pulse Resp B/P (MAP) Pulse Ox O2 Delivery O2 Flow Rate FiO2 01/29/17 08:00 Nasal Cannula 2.5 01/29/17 07:34 74 18 97 Nasal Cannula 2.5 01/29/17 07:09 36.9 75 20 123/74 (90) 97 Nasal Cannula 2.5 01/29/17 00:00 92 Nasal Cannula 2.5 01/28/17 23:05 36.8 77 18 118/67 (84) 97 Nasal Cannula 2.5 Lab Results (24Hrs) Item Value Date Time Vancomycin Level Trough 24.6 mcg/ml 01/29/17 0745 Micro Results Item Value Date Time Gram Stain - Final Resulted 01/27/17 1920 Sputum Expectorated Sputum Blood Culture - Preliminary Resulted 01/26/17 2330 Blood NO GROWTH TO DATE. Blood Culture - Preliminary Resulted 01/26/17 2325 Blood Staph Species Risk Factors for Resistance Assessment & Plan Assessment 66 year old female receiving vancomycin 1500mg IV Q 18 hours and levaquin 500mg PO dailly for treatment of Sepsis gram + Bacteremia Day # 4/ of antimicrobial therapy Plan Vancomycin IV * Trough level of 24.6 mcg/mL (01/29/17 @0745) is supratherapeutic. Trough level is not at steady state. * Dose of Vancomycin at 08 (01/29/17) today was given. Dose will be held and a random level drawn with am labs on 01/30/17. * Goal trough level for : 15 to 20 mcg/mL * Less than traditional dose and extended dosing interval selected due to likelihood of drug accumulation in obese patient /CKD. * Estimate Vd of 0.5 L/kg, Ke 0.030 hr-1, Half-life of approximately 24 hrs. Levaquin PO * SCr increased to 1.5 mg/dl with an estimated CrCl between 20-49 ml/min therefore will decrease Levaquin to 250mg po daily. Pharmacy will continue to follow and will adjust dose/frequency as necessary. Thank you.
[2017-01-29 09:54] VITALS: BP 123/74; PULSE 74; TEMP 36.9; O2SAT 97
[2017-01-29] MEDS ORDERED: LVQ250 PO (10:43)
[2017-01-29] MEDS ORDERED: LEVOFLOXACIN 250 MG TAB PO SCH (14:00)
[2017-02-14] MEDS ORDERED: PRED10TA PO (13:07)
[2017-02-14] MEDS ORDERED: DLR500 PO (13:07)
[2017-02-22] MEDS ORDERED: ULT50X PO (16:20)
== END 2017-01-29 12:27 | disposition home or self-care (01) | DRG 189 ==
LOC: EDBD 20:30 → C.EDB 20:31 → C.MED 23:51 → ENRESERV 01-27 00:34
PROVIDERS: ADMIT Internal Medicine; ATTEND Internal Medicine
DX: J96.21 Acute and chronic respiratory failure with hypoxia (principal); J44.1 Chronic obstructive pulmonary disease with (acute) exacerbation; I13.0 Hypertensive heart and chronic kidney disease with heart failure and stage 1 through stage 4 chronic kidney disease, or unspecified chronic kidney disease; N18.4 Chronic kidney disease, stage 4 (severe); E87.2 Acidosis; E66.2 Morbid (severe) obesity with alveolar hypoventilation; Z68.42 Body mass index [BMI] 45.0-49.9, adult; J96.22 Acute and chronic respiratory failure with hypercapnia; I50.9 Heart failure, unspecified; I25.10 Atherosclerotic heart disease of native coronary artery without angina pectoris; E78.00 Pure hypercholesterolemia, unspecified; M10.9 Gout, unspecified; D63.1 Anemia in chronic kidney disease; Z66 Do not resuscitate; H91.90 Unspecified hearing loss, unspecified ear; Z99.81 Dependence on supplemental oxygen; E03.9 Hypothyroidism, unspecified; F32.9 Major depressive disorder, single episode, unspecified; E78.5 Hyperlipidemia, unspecified; K21.9 Gastro-esophageal reflux disease without esophagitis; I25.2 Old myocardial infarction; I48.0 Paroxysmal atrial fibrillation; D50.9 Iron deficiency anemia, unspecified; R91.1 Solitary pulmonary nodule; Z87.891 Personal history of nicotine dependence; Z98.1 Arthrodesis status; Z83.3 Family history of diabetes mellitus; Z82.49 Family history of ischemic heart disease and other diseases of the circulatory system; Z90.49 Acquired absence of other specified parts of digestive tract; Z91.040 Latex allergy status; Z88.5 Allergy status to narcotic agent; Z91.048 Other nonmedicinal substance allergy status; Z79.82 Long term (current) use of aspirin; Z79.899 Other long term (current) drug therapy; Z96.641 Presence of right artificial hip joint; Z96.611 Presence of right artificial shoulder joint

== ENCOUNTER 2017-02-11 19:41 | Inpatient (IN) | payer OTHER ==
[~2017-02-11] VITALS: Ht 157.5 cm; Wt 124.8 kg
[~2017-02-11 19:41] MED LIST changes: +LVQ250 PO; -PRD10 PO
[2017-02-11] MEDS ORDERED: ALBUT/IPRATROP 3MG/0.5MG NEB 3 ML VIAL INH STA (19:52)
[2017-02-11] MEDS ORDERED: METHYLPREDNISOLONE 125 MG VIAL IV STA (19:52)
[2017-02-11] MEDS ORDERED: LEVO1TAB33 PO (20:06)
--- NOTE | 2017-02-11 20:15 | DIAGNOSTIC IMAGING REPORT ---
CHEST ONE VIEW PORTABLE CLINICAL HISTORY: Respiratory distress COMPARISON STUDY: 01/26/2017 FINDINGS: The heart is mildly enlarged. There is no focal pulmonary consolidation. There is no overt failure. There is minor left basilar atelectasis. There is evidence of a prior vertebroplasty. Postsurgical changes involve the right shoulder.[ IMPRESSION: Mild cardiomegaly. No acute findings. Electronically signed by: Fox Garcia M.D. 02/11/2017 8:14 PM Dictated Date/Time: 02/11/2017 8:13 PM
--- NOTE | 2017-02-11 20:19 | EMERGENCY ROOM VISIT NOTE ---
History Report prepared by Warren: Alessia العراقي Under the Supervision of: Dr. Charlie Mustafa D.O. First contact with patient: 19:33 Stated Complaint: SOB, CHEST TIGHTNESS History of Present Illness The patient is a 66 year old female who presents to the Emergency Room with complaints of intermittent shortness of breath beginning 2 days ago. The patient states that tonight her shortness of breath worsened and it became more difficult to breath. She reports that she is on 4 liters of oxygen at home. The patient notes that she was seen here in the hospital for pneumonia and was on Levoquin and Prednisone. She complains of jabbing chest pain, cough, leg pain, and leg swelling. She reports that she has an appointment to see her PCP tomorrow. Source of History: patient Onset: 2 days ago Position: other (SOB) Timing: intermittent, worsening Associated Symptoms: + cough, + chest pain Note: The patient complains of leg pain and swelling. Review of Systems See HPI for pertinent positives & negatives. A total of 10 systems reviewed and were otherwise negative. Past Medical & Surgical Medical Problems: (1) CHF (congestive heart failure) (2) CKD (chronic kidney disease), stage IV (3) COPD (chronic obstructive pulmonary disease) (4) Depression (5) Dyslipidemia (6) GERD (gastroesophageal reflux disease) (7) HTN (hypertension) (8) EVONNE (iron deficiency anemia) (9) Myocardial infarction (10) Paroxysmal a-fib (11) Respiratory failure, [id number] Surgical Problems: (1) History of appendectomy (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 (4) Hx of cholecystectomy (5) S/P cervical spinal fusion (6) S/P wrist surgery Family History Diabetes mellitus MOTHER FH: CAD (coronary artery disease) MOTHER SISTER Social History Smoking Status: Former Smoker Alcohol Use: none Drug Use: none Marital Status: single Housing Status: lives with family Occupation Status: retired Current/Historical Medications Scheduled Allopurinol (Zyloprim), 300 MG PO DAILY Aspirin (Aspirin Ec), 81 MG PO DAILY Atorvastatin (Lipitor), 20 MG PO DAILY Bumetanide (Bumetanide), 1 MG PO BID Ferrous Sulfate (Kp Ferrous Sulfate), 1 TAB PO DAILY Fluticasone Prop/Salmeterol (Advair Diskus 500/50 60 Dose), 1 PUFFS INH BID Gabapentin (Neurontin), 300 MG PO TID Lactobacillus Acidophilus (Lactinex), 1 TAB PO TID Levofloxacin (Levaquin), 500 MG PO DAILY Levothyroxine Sodium (Synthroid), 88 MCG PO DAILY Losartan Potassium (Losartan Potassium), 50 MG PO QAM Metoprolol Succinate (Toprol Xl), 50 MG PO DAILY Multivitamins/Minerals (Certavite/Antioxidants), 1 TAB PO DAILY Potassium Ext Rel (Klor-Con), 20 MEQ PO Q2D Propafenone Hcl (Propafenone Hcl), 150 MG PO TID Ranitidine (Zantac), 150 MG PO BID Scheduled PRN Acetaminophen (Tylenol), 650 MG PO Q4H PRN for Pain or Fever Albuterol Sulf (Proventil 0.083% 2.5MG/3ML), 2.5 MG INH QID PRN for SOB/Wheezing Ipratropium-Albuterol (Combivent Respimat), 1 PUFFS INH QID PRN for sob/wheezing Allergies Coded Allergies: Adhesives (Verified Allergy, Severe, RED RASH, 02/11/17) Latex1 -Allergic Contact Dermititis (Verified Adverse Reaction, Mild, TAPE -SORE, 02/11/17) Morphine (Verified Adverse Reaction, Mild, DELUSIONS, 02/11/17) Physical Exam Vital Signs Date Time Temp Pulse Resp B/P (MAP) Pulse Ox O2 Delivery O2 Flow Rate FiO2 02/11/17 21:45 76 20 111/53 100 Nasal Cannula 4.0 02/11/17 20:14 73 02/11/17 19:59 97 Nasal Cannula 4.0 02/11/17 19:59 37.3 74 23 145/51 97 Nasal Cannula 4.0 02/11/17 19:58 97 Nasal Cannula 4.0 02/11/17 19:58 97 Nasal Cannula 4.0 Physical Exam GENERAL: Patient is awake, alert, somewhat anxious appearing but comfortable. EYES: The conjunctivae are clear. The pupils are round and reactive. EARS, NOSE, MOUTH AND THROAT: The nose is without any evidence of any deformity. Mucous membranes are moist tongue is midline NECK: The neck is nontender and supple. RESPIRATORY: Lung sounds diminished throughout, tachypnea with mild conversational dyspnea CARDIOVASCULAR: Regular rate and rhythm noted there no murmurs rubs or gallops normal S1 normal S2 GASTROINTESTINAL: The abdomen is soft. Bowel sounds are present in all quadrants. Abdomen is nontender MUSCULOSKELETAL/EXTREMITIES: There is no evidence of gross deformity full range of motion is noted in the hips and shoulders SKIN: There is no obvious evidence of any rash. There are no petechiae, pallor or cyanosis noted. Pedal edema bilaterally but no calf tenderness was noted. NEUROLOGIC: Patient is awake alert and oriented x3 Medical Decision & Procedures ER Provider Diagnostic Interpretation: X-ray results as stated below per interpretation by me and the radiologist. CHEST ONE VIEW PORTABLE FINDINGS: The heart is mildly enlarged. There is no focal pulmonary consolidation. There is no overt failure. There is minor left basilar atelectasis. There is evidence of a prior vertebroplasty. Postsurgical changes involve the right shoulder. IMPRESSION: Mild cardiomegaly. No acute findings. Electronically signed by: Fox Garcia M.D. 02/11/2017 8:14 PM Dictated Date/Time: 02/11/2017 8:13 PM Laboratory Results Test 02/11/17 20:30 02/11/17 20:31 02/11/17 20:45 Stomatocytes 1+ Prothrombin Time 10.4 SECONDS (9.0-12.0) Prothromb Time International Ratio 1.0 (0.9-1.1) Activated Partial Thromboplast Time 21.8 SECONDS (21.0-31.0) Partial Thromboplastin Ratio 0.8 D-Dimer 290 ug/L FEU (0-500) Magnesium Level 1.8 mg/dl (1.8-2.4) Total Bilirubin 0.2 mg/dl (0.2-1) Aspartate Amino Transf (AST/SGOT) 13 U/L (15-37) Alanine Aminotransferase (ALT/SGPT) 21 U/L (12-78) Alkaline Phosphatase 63 U/L (45-117) Troponin I < 0.015 ng/ml (0-0.045) Pro-B-Type Natriuretic Peptide 735 pg/ml (0-900) Total Protein 6.5 gm/dl (6.4-8.2) Albumin 2.9 gm/dl (3.4-5.0) Globulin 3.6 gm/dl (2.5-4.0) Albumin/Globulin Ratio 0.8 (0.9-2) Venous Blood pH 7.25 (7.36-7.41) Venous Blood Partial Pressure CO2 93 mmHg (38.0-50.0) Venous Blood Partial Pressure O2 31 mmHg Venous Blood HCO3 40 mmol/L Venous Blood Oxygen Saturation < 60.0 % Venous Blood Base Excess 10.2 mEq/L Urine Color YELLOW Urine Appearance CLEAR (CLEAR) Urine pH 5.0 (4.5-7.5) Urine Specific [place] 1.016 (1.000-1.030) Urine Protein NEG (NEG) Urine Glucose (UA) NEG (NEG) Urine Ketones NEG (NEG) Urine Occult Blood NEG (NEG) Urine Nitrite NEG (NEG) Urine Bilirubin NEG (NEG) Urine Urobilinogen NEG (NEG) Urine Leukocyte Esterase NEG (NEG) Laboratory results per my review. Medications Administered Medications (Trade) Dose Ordered Sig/Rupinder Route Start Time Stop Time Status Last Admin Dose Admin Albuterol/ Ipratropium (Duoneb) 3 ml NOW STAT INH 02/11/17 19:52 02/11/17 19:54 DC 02/11/17 20:56 3 ML Methylprednisolone Sodium Succinate (Solu-Medrol IV) 125 mg NOW STAT IV 02/11/17 19:52 02/11/17 19:54 DC 02/11/17 20:56 125 MG ECG Indication: chest pain Rate (beats per minute): 68 Rhythm: normal sinus Findings: no ectopy, other (no ST segment abnormalities) ED Course 1932: The patient was evaluated in room C10. A complete history and physical examination were performed. 1951: Solu-Medrol IV 125mg IV, Duoneb 3ml INH. 2036: I reevaluated and updated the patient. 2118: I discussed the patient's case with Dr. Fam of [facility]. The patient will be evaluated for further management. 2123: Upon reevaluation, the patient is doing well. I discussed results and treatment plan with the patient. She verbalizes agreement and understanding. I spoke with Dr. Fam of the [facility] hospitalist service. The patient will be evaluated for further management and care. Medical Decision Differential diagnosis: Etiologies such as infections, reactive airway disease, pneumonia, pneumothorax , COPD, CHF, cardiac ischemia, pulmonary embolism, musculoskeletal, gastrointestinal, as well as others were entertained. Nursing notes reviewed. The patient is a 66-year-old female who presented to the emergency department for an evaluation of shortness of breath and cough. The patient was recently admitted to our facility for similar complaints. She has a history COPD. She was treated with IV steroids and bronchodilator therapy in emergency department. She was found have significant respiratory acidosis. I discussed her case with the on-call [facility] hospitalist group. They've agreed to evaluate the patient in emergency apartment for further management and disposition. Medication Reconcilliation Current Medication List: was personally reviewed by me Blood Pressure Screening Patient's blood pressure: Elevated blood pressure Blood pressure disposition: Elevated BP felt to be situational Consults Time Called: 2110 Consulting Physician: Dr. Sebastián Alex Returned Call: 2118 I discussed the patient's case with Dr. Fam of [facility]. The patient will be evaluated for further management. Impression Primary Impression: COPD exacerbation Additional Impressions: Respiratory acidosis SOB (shortness of breath) Scribe Attestation The scribe's documentation has been prepared under my direction and personally reviewed by me in its entirety. I confirm that the note above accurately reflects all work, treatment, procedures, and medical decision making performed by me. Departure Information Dispostion Being Evaluated By Hospitalist Referrals Babak Melendez M.D.([facility]) (PCP) Problem Qualifiers
[2017-02-11 20:34] LABS: BASO % 0.3 %; BASO ABS # 0.03 K/uL (0-0.2); EOS % 3.4 %; HEMATOCRIT 29.8 % (37-47); IG% 0.4 %; LYMPH ABS # 1.77 K/uL (1.2-3.4); MEAN CORPUSCULAR HEMOGLOBIN 29.9 pg (25-34); MEAN CORPUSCULAR HGB CONC 29.9 g/dl (32-36); MEAN PLATELET VOLUME 9.3 fL (7.4-10.4); MONO % 5.5 %; NEUT % 74.4 %; PLATELET COUNT 166 K/uL (130-400); RED BLOOD COUNT 2.98 M/uL (4.2-5.4); WHITE BLOOD COUNT 11.08 K/uL (4.8-10.8)
[2017-02-11 20:40] LABS: VEN BLOOD GAS BASE EXCESS 10.2 mEq/L; VENOUS BLOOD GAS PCO2 93 mmHg (38.0-50.0); VENOUS BLOOD GAS PO2 31 mmHg
[2017-02-11 20:41] LABS: VEN BLD GAS O2 SATURATION < 60.0 %
[2017-02-11 20:46] LABS: PARTIAL THROMBOPLASTIN RATIO 0.8; PROTHROMBIN TIME (PATIENT) 10.4 SECONDS (9.0-12.0)
[2017-02-11 20:52] LABS: ALT/SGPT 21 U/L (12-78); BLOOD UREA NITROGEN 71 mg/dl (7-18); BUN/CREATININE RATIO 35.6 (10-20); CALCIUM 9.7 mg/dl (8.5-10.1); CARBON DIOXIDE 40 mmol/L (21-32); CHLORIDE 102 mmol/L (98-107); GLUCOSE 113 mg/dl (70-99); POTASSIUM 4.1 mmol/L (3.5-5.1); SODIUM 143 mmol/L (136-145)
[2017-02-11 20:57] LABS: ALB/GLOB RATIO 0.8 (0.9-2); ALKALINE PHOSPHATASE 63 U/L (45-117); AST/SGOT 13 U/L (15-37)
[2017-02-11 20:59] LABS: COMPLETE YES; STOMATOCYTE 1+
[2017-02-11 21:10] LABS: URINE APPEARANCE CLEAR (CLEAR); URINE BILIRUBIN NEG (NEG); URINE COLOR YELLOW; URINE NITRITE NEG (NEG); URINE SPECIFIC GRAVITY 1.016 (1.000-1.030); UROBILINOGEN NEG (NEG)
[2017-02-11 21:18] LABS: MANUAL MICROSCOPIC REQUIRED? NO; REVIEW REQ? NO
[2017-02-11 23:00] VITALS: BP 170/71; PULSE 89; TEMP 36.7; O2SAT 91
[2017-02-11] MEDS ORDERED: LEVALBUTEROL/IPRATROPIUM NEB INH PRN (23:00)
[2017-02-11] MEDS ORDERED: TRAMADOL HCL 50 MG TAB PO ONE (23:00)
[2017-02-11] MEDS ORDERED: SODIUM CHLORIDE 0.45% 1000ML 1,000 ML IV ONE (23:00)
[2017-02-11] MEDS ORDERED: ACETAMINOPHEN 325 MG TAB PO PRN (23:00)
[2017-02-11 23:15] VITALS: PULSE 83; O2SAT 94
[2017-02-11] MEDS ORDERED: MAGNESIUM SULFATE 1GM / D5W 1 GM in PREMIXED IN D5W 100 ML IV ONE (23:15)
[2017-02-11] MEDS ORDERED: LEVALBUTEROL 1.25MG/0.5ML NEB INH PRN (23:45)
[2017-02-11] MEDS ORDERED: IPRATROPIUM BROMIDE NEB SOLN 0.02% 2.5 ML VIAL INH PRN (23:45)
[2017-02-11] MEDS: TRAMADOL HCL 50 MG TAB PO PRN (23:47)
[2017-02-12] VITALS (9 sets, daily range): BP systolic 113–146; BP diastolic 57–76; PULSE 70–79; TEMP 36.3–36.6; O2SAT 93–100; Ht 157.5 cm; Wt 124.8 kg
[2017-02-12 00:38] LABS: ARTERIAL BLOOD GAS BASE EXCESS 7.7 mEq/L (-9-1.8); ARTERIAL BLOOD GAS HCO3 36 mmol/L (19-24); ARTERIAL BLOOD GAS PO2 99 mm/Hg (80-95); ARTERIAL BLOOD GAS pH 7.29 (7.35-7.45)
[2017-02-12 00:39] LABS: ALLEN TEST POS (POS)
[2017-02-12 00:41] LABS: O2 ADMINISTRATION CPAP
[2017-02-12] MEDS: HYDROmorphone INJ 0.5 MG/0.5 ML SYR IV PRN ×3 (01:34→23:39)
[2017-02-12] MEDS: IPRATROPIUM BROMIDE NEB SOLN 0.02% 2.5 ML VIAL INH SCH ×3 (02:20→19:56)
[2017-02-12] MEDS: LEVALBUTEROL 1.25MG/0.5ML NEB INH SCH ×3 (02:20→19:53)
[2017-02-12] MEDS ORDERED: LEVALBUTEROL/IPRATROPIUM NEB INH SCH (03:00)
--- NOTE | 2017-02-12 03:38 | HISTORY & PHYSICAL EXAMINATION ---
DATE OF ADMISSION: 02/11/2017 PRIMARY CARE DOCTOR: Dr. Melendez. CHIEF COMPLAINT: Chest pain, shortness of breath. HISTORY OF PRESENT ILLNESS: History obtained from patient and records. Medical history significant for chronic hypoxemic respiratory failure secondary to COPD on home O2, OHS on CPAP, paroxysmal atrial fibrillation not on anticoagulation, hypertension, chronic diastolic heart failure, EF of 65-70% (2D echo in May 2016), past tobacco abuse, chronic renal insufficiency, baseline creatinine 1.5-2, chronic anemia (baseline hemoglobin of 9-10). Recent confinement about 2 weeks ago for COPD exacerbation, complicated bronchitis. Patient discharged on Levaquin and prednisone course. Productive cough symptoms, shortness of breath improved. The last 2 days the patient noted increasing shortness of breath than usual. Denies weight gain. Left-sided chest pain, pleuritic. Usual dry cough symptoms. At the Emergency Room, the patient received Solu-Medrol and breathing treatment for COPD exacerbation. Patient feeling better. MEDICAL HISTORY: As above. SURGERIES: She has had appendectomy, hip replacement, shoulder surgery, neck surgery, wrist surgery, cholecystectomy. HOME MEDICATIONS: Include Zyloprim, aspirin, Lipitor, Tylenol, ferrous sulfate, Neurontin, Synthroid, Toprol, multivitamins, Zantac. ALLERGIES: ADHESIVES, LATEX, MORPHINE. FAMILY HISTORY: Diabetes, heart disease. PERSONAL HISTORY: Past tobacco abuse, no chronic intake of alcoholic beverages. Lives with daughter. Retired from [employer] work. REVIEW OF SYSTEMS: As per HPI, all other ROS negative. PHYSICAL EXAMINATION: VITAL SIGNS: Blood pressure was noted to be 145/51, pulse rate 75, RR 22, T 37 O2 97 on 4 liters. GENERAL: min respiratory distress, obese. SKIN: Pallor. HEENT: Pale palpebral conjunctivae. Dry mucosa. Crusting, nasofrontal area. Nasal cannula in place. NECK: Short neck. LUNGS: Decreased breath sounds. CHEST: ant L chest wall tenderness. ABDOMEN: Some distention, nontender. EXTREMITIES: Bilateral lower extremity edema, no tenderness. NEUROLOGIC: No gross focality. LABS: Hemoglobin was noted to be 8.9, WBC 11 platelets 166. Sodium 140, potassium 4.1, chloride 102, CO2 of 40, creatinine 2, glucose 113. VBG pH 7.25, pCO2 of 93. Troponin normal.D-dimer was normal. Chest x-ray showed cardiomegaly, atelectasis left. EKG as per my interpretation : rate 70, normal sinus rhythm, no ischemia. ASSESSMENT: 1. Acute hypoxemic, hypercapnic respiratory failure secondary to chronic obstructive pulmonary disease exacerbation. hx OHS on CPAP at night No sepsis usual dry cough symptoms. Multiple re-admissions this year for issue. 2. chronic diastolic heart failure. The patient is euvolemic. 3. hx PAF, px NSR, not on anticoagulation 4. Chronic renal insufficiency, creatinine at baseline. 5. Chronic anemia 2 to CKD, hemoglobin at baseline. 6. Past tobacco abuse. PLAN: PCU. BiPAP. Recheck ABG. Nebs, steroids. Pulmonary consult. Respiratory failure, recurrent COPD exacerbation. (Patient known to Dr. Jimenez.) PT, OT eval. DVT prophylaxis, Heparin subQ. DNR. Patient's daughter requesting updates from providers. Miss Noreen Ojeda at [phone]. [facility]
[2017-02-12] MEDS ORDERED: PROMETHAZINE HCL INJ 12.5 MG in SODIUM CHLORIDE 0.9% 50ML 50 ML IV PRN (05:00)
[2017-02-12] MEDS: LEVOTHYROXINE 88 MCG TAB PO SCH (05:39)
[2017-02-12] MEDS: HEPARIN SOD 5000 UNIT/0.5 ML CARP SQ SCH ×3 (05:47→20:37)
[2017-02-12 06:13] LABS: BASO % 0.1 %; BASO ABS # 0.01 K/uL (0-0.2); COMPLETE YES; EOS % 0.2 %; HEMATOCRIT 29.4 % (37-47); IG% 0.3 %; LYMPH % 3.6 %; LYMPH ABS # 0.47 K/uL (1.2-3.4); MEAN CELL VOLUME 98.3 fL (80-100); MEAN CORPUSCULAR HEMOGLOBIN 30.8 pg (25-34); MEAN CORPUSCULAR HGB CONC 31.3 g/dl (32-36); MEAN PLATELET VOLUME 9.6 fL (7.4-10.4); MONO % 0.3 %; NEUT % 95.5 %; PLATELET COUNT 158 K/uL (130-400); RED BLOOD COUNT 2.99 M/uL (4.2-5.4); WHITE BLOOD COUNT 13.04 K/uL (4.8-10.8)
[2017-02-12 06:28] LABS: BUN/CREATININE RATIO 39.1 (10-20); CALCIUM 9.8 mg/dl (8.5-10.1); CREATININE 1.6 mg/dl (0.60-1.20); POTASSIUM 4.5 mmol/L (3.5-5.1)
[2017-02-12] MEDS: LOSARTAN POTASSIUM 50 MG TAB PO SCH (08:03)
[2017-02-12] MEDS: CEROVITE ADV FORMULA TAB PO SCH (08:04)
[2017-02-12] MEDS: BUMETANIDE 1 MG TAB PO SCH ×2 (08:07→17:13)
[2017-02-12] MEDS: FERROUS SULFATE 325 MG TAB PO SCH (08:08)
[2017-02-12] MEDS: METOPROLOL SUCC 50MG EXT REL TAB PO SCH (08:08)
[2017-02-12] MEDS: PROPAFENONE HCL 150 MG TAB PO SCH ×3 (08:08→20:35)
[2017-02-12] MEDS: LACTOBACILLUS ACIDOPHILUS (FLORANEX) TAB PO SCH ×3 (08:08→17:13)
[2017-02-12] MEDS: ASPIRIN 81 MG ECTAB PO SCH (08:08)
[2017-02-12] MEDS: ALLOPURINOL 300 MG TAB PO SCH (08:09)
[2017-02-12] MEDS: RANITIDINE HCL 150 MG TAB PO SCH ×2 (08:09→20:35)
[2017-02-12] MEDS: ATORVASTATIN 20 MG TAB PO SCH (08:09)
[2017-02-12] MEDS: GABAPENTIN 100 MG CAP PO SCH ×3 (08:09→20:34)
--- NOTE | 2017-02-12 13:13 | Pulmonary Consultation ---
History General Date of Service: Feb 12, 2017. Stated Complaint: Respiratory Failure, [id number] HPI The patient is a 66 year old female who presents to [facility] with complaints of Respiratory Failure, [id number]. The patient's primary care provider is Babak Melendez M.D.(RAMEZ). Mrs. Lee is a 66 year old female with severe COPD on 4L NC well known to the pulmonary service who presents with two day history of worsening shortness of breath. She also carries the diagnoses of morbid obesity with a BMI of 45.7 , obesity hypoventilation syndrome and obstructive sleep apnea .She denies any fever, chills, but has cough, pleuritic chest pain and bilateral lower extremity swelling and pain. She admits to chronic sputum production and denies any change in color or amount. She states that she has been compliant with all of her medications and uses BiPAP at night. She denies any PND or othopnea. She was recently admitted to the hospital two weeks ag for pneumonia and COPD exacerbation and discharged home on levoquin and prednisone taper. in September of this year she was admitted for COPD exacerbation as well and was discharged home on 2-3 LPM of oxygen during the day as well as BiPAP at bedtime with pressure settings of 14/6 with a rate of 10+4 L oxygen supplementation. She was schedule to see PCP today for follow up. In the ED, her vital signs were T 37.3, P 74, BP 145/51, P 97% NC 4L. Her laboratory data was significant for WBC 11, Hgb 8.9, Platlets of 166, CO2 40 , Bun 71 and Cr 2.Troponin was < 0.015, proBNP was 735 and D-dimer was normal. VBG showed pH 7.25, pCo2 93, Po2 < 31. Her baseline carbon dioxide level appears ranges between 38-42. Her CXR showed mild cardiomegaly, bibasilar post- surgical changes of right shoulder and evidence of prior vertebroplasty. EKG showed normal sinus rhythm with a rate 68 bpm, no ST changes noted. In the ER, she was given Duoneb and Solumedrol 125 mg. Repeat ABG pH 7.29, pCO2 77, HCO3 36, SaO2 97%. She was admitted for acute on chronic hypercapnic respiratory failure. Most recent vitals show, T 36.6, BP 136/76, P 76-78, RR 18-20, P ox 93-99% on 4L NC. From a respiratory standpoint she is on prednisone 40 mg daily, ipratropium and albuterol I inhaler q6h. She is also on bumex for diuretic and dilaudid and tramadol for pain. At the time of my evaluation, she states that she feels better from admission. She denies any further shortness of breath or chest pain. She does feel nauseous at this after eating breakfast. Review of Systems Eyes: reports: as stated in HPI ENT: reports: as stated in HPI Cardiovascular: reports: as stated in HPI Respiratory: reports: cough, orthopnea, shortness of breath, sputum production , AHN, denies: stridor, wheezing, cyanosis, PND, hemoptysis Gastrointestinal: reports: nausea Genitourinary - Female: reports: no symptoms Musculoskeletal: reports: joint pain Integumentary: reports: rash, itching, dryness Neurologic: reports: no symptoms Psychiatric: reports: no symptoms Endocrine: no symptoms Hematologic / Lymphatic: no symptoms Allergic / Immunologic: no symptoms Past Medical History Past Medical History: Severe chronic obstructive lung disease Obesity hypo-ventilation syndrome Congestive heart failure Hypertension Stage IV chronic kidney disease GERD CAD Hyperlipidemia Paroxysmal atrial fibrillation Gout 6 mm nodule in the right upper lobe Iron deficiency anemia Right rib fractures Past Medical History: A Fib, congestive heart failure, COPD, depression, high cholesterol, hypothyroidism, other Past Surgical History: Total hip replacement of right hip Total replacement of right shoulder joint Cholecystectomy Cervical spinal fusion Wrist surgery Past Surgical History: cholecystectomy Family History Diabetes mellitus MOTHER FH: CAD (coronary artery disease) MOTHER SISTER Mother from coronary artery disease and diabetes Father had CAD but in a motor vehicle accident. One sister who is from myocardial infarction. Currently her daughter assists her with activities of daily living. Other: Other Social History Hx Tobacco Use In Past Year?: No Smoking Status: Former Smoker Alcohol: never Drug Use: none Marital status: single Housing status: lives with family Occupational Status: retired Immunizations History of Influenza Vaccine: Yes Influenza Vaccine Date: May 19, 2016 History of Tetanus Vaccine?: Yes Tetanus Immunization Date: Jan 11, 2008 History of Pneumococcal: Yes Pneumococcal Date: May 19, 2016 History of MDRO History of MDRO: Yes Type of MDRO: VRE Allergies Coded Allergies: Adhesives (Verified Allergy, Severe, RED RASH, 02/11/17) Latex1 -Allergic Contact Dermititis (Verified Adverse Reaction, Mild, TAPE -SORE, 02/11/17) Morphine (Verified Adverse Reaction, Mild, DELUSIONS, 02/11/17) Current Medications Reported Home Medications Medications Dose Route/Sig Max Daily Dose Days Date Category Dose Instructions Levaquin (Levofloxacin) 500 Mg Tab 500 Mg PO DAILY 7 02/11/17 Reported Combivent Respimat (Ipratropium-Albuterol) 1 Aer Aer 1 Puffs INH QID PRN 09/16/16 Rx Lactinex (Lactobacillus Acidophilus) Tab 1 Tab PO TID 09/04/16 Rx Klor-Con (Potassium Chloride) 20 Meq Tabcr 20 Meq PO Q2D 30 08/31/16 Rx every other day Proventil 0.083% 2.5MG/3ML (Albuterol Sulf) 2.5 Mg/3 Ml Nebu 2.5 Mg INH QID PRN 08/31/16 Rx Advair Diskus 500/50 60 Dose (Fluticasone Prop/Salmeterol) 1 Ea Aerp 1 Puffs INH BID 30 08/31/16 Rx Tylenol (Acetaminophen) 325 Mg Tab 650 Mg PO Q4H PRN 08/31/16 Reported Kp Ferrous Sulfate (Ferrous Sulfate) 325 Mg Tab 1 Tab PO DAILY 30 08/31/16 Reported Bumetanide 1 Mg Tab 1 Mg PO BID 30 06/15/16 Rx Losartan Potassium 50 Mg Tab 50 Mg PO QAM 30 06/02/16 Rx Lipitor (Atorvastatin) 20 Mg Tab 20 Mg PO DAILY 06/01/16 Reported Certavite/Antioxidants (Multivitamins/Minerals) 1 Tab Tab 1 Tab PO DAILY 06/01/16 Reported Propafenone Hcl 150 Mg Tab 150 Mg PO TID 05/29/16 Reported Zyloprim (Allopurinol) 300 Mg Tab 300 Mg PO DAILY 05/29/16 Reported Synthroid (Levothyroxine Sodium) 88 Mcg Tab 88 Mcg PO DAILY 05/29/16 Reported Toprol Xl (Metoprolol Succinate) 50 Mg Tab 50 Mg PO DAILY 06/08/13 Reported Neurontin (Gabapentin) 300 Mg Cap 300 Mg PO TID 06/08/13 Reported Aspirin Ec (Aspirin) 81 Mg Tab 81 Mg PO DAILY 04/03/13 Reported Zantac (Ranitidine HCl) 150 Mg Tab 150 Mg PO BID 03/08/13 Reported Physical Physical Exam Vital Signs: Date Time Temp Pulse Resp B/P (MAP) Pulse Ox O2 Delivery O2 Flow Rate FiO2 02/12/17 08:00 Nasal Cannula 4.0 02/12/17 07:46 36.6 76 18 136/76 (96) 99 4.0 02/12/17 02:26 78 20 93 BiPAP/CPAP 4.0 02/12/17 00:04 BiPAP 02/11/17 23:15 83 94 4.0 02/11/17 23:00 36.7 89 20 170/71 (104) 91 Nasal Cannula 4.0 02/11/17 21:45 76 20 111/53 100 Nasal Cannula 4.0 02/11/17 20:14 73 02/11/17 19:59 97 Nasal Cannula 4.0 02/11/17 19:59 37.3 74 23 145/51 97 Nasal Cannula 4.0 02/11/17 19:58 97 Nasal Cannula 4.0 02/11/17 19:58 97 Nasal Cannula 4.0 Head: normocephalic, atraumatic, healing scab between eyes Skin: Significant for seborrheic dermatitis on face. Eyes: normal inspection, EOMI, sclerae normal ENT: normal ENT inspection, pharynx normal Neck: supple, no adenopathy, trachea midline Respiratory/Chest: Decreased breath sounds bilaterally, no crackles or wheezes Cardiovascular: regular rate, rhythm, no edema, no murmur Abdomen / GI: normal bowel sounds, non tender, morbidly obese Back: Intact Extremities: normal inspection, normal range of motion, trace edema of bilateral lower extremities no clubbing, no cyanosis. Neurologic/Psych: no motor/sensory deficits, awake alert oriented 3 Diagnostics Labs Results Past 24 Hours Test 02/11/17 20:30 02/11/17 20:31 02/11/17 20:45 02/12/17 00:12 Range/Units White Blood Count 11.08 4.8-10.8 K/uL Red Blood Count 2.98 4.2-5.4 M/uL Hemoglobin 8.9 12.0-16.0 g/dL Hematocrit 29.8 37-47 % Mean Corpuscular Volume 100.0 80-100 fL Mean Corpuscular Hemoglobin 29.9 25-34 pg Mean Corpuscular Hemoglobin Concent 29.9 32-36 g/dl Platelet Count 166 130-400 K/uL Mean Platelet Volume 9.3 7.4-10.4 fL Neutrophils (%) (Auto) 74.4 % Lymphocytes (%) (Auto) 16.0 % Monocytes (%) (Auto) 5.5 % Eosinophils (%) (Auto) 3.4 % Basophils (%) (Auto) 0.3 % Neutrophils # (Auto) 8.25 1.4-6.5 K/uL Lymphocytes # (Auto) 1.77 1.2-3.4 K/uL Monocytes # (Auto) 0.61 0.11-0.59 K/uL Eosinophils # (Auto) 0.38 0-0.5 K/uL Basophils # (Auto) 0.03 0-0.2 K/uL RDW Standard Deviation 55.7 36.4-46.3 fL RDW Coefficient of Variation 15.3 11.5-14.5 % Immature Granulocyte % (Auto) 0.4 % Immature Granulocyte # (Auto) 0.04 0.00-0.02 K/uL Stomatocytes 1+ Prothrombin Time 10.4 9.0-12.0 SECONDS Prothromb Time International Ratio 1.0 0.9-1.1 Activated Partial Thromboplast Time 21.8 21.0-31.0 SECONDS Partial Thromboplastin Ratio 0.8 D-Dimer 290 0-500 ug/L FEU Sodium Level 143 136-145 mmol/L Potassium Level 4.1 3.5-5.1 mmol/L Chloride Level 102 98-107 mmol/L Carbon Dioxide Level 40 21-32 mmol/L Anion Gap 1.0 3-11 mmol/L Blood Urea Nitrogen 71 7-18 mg/dl Creatinine 2.00 0.60-1.20 mg/dl Est Creatinine Clear Calc Drug Dose 33.7 ml/min Estimated GFR () 29.0 Estimated GFR (Non- 25.0 BUN/Creatinine Ratio 35.6 10-20 Random Glucose 113 70-99 mg/dl Calcium Level 9.7 8.5-10.1 mg/dl Magnesium Level 1.8 1.8-2.4 mg/dl Total Bilirubin 0.2 0.2-1 mg/dl Aspartate Amino Transf (AST/SGOT) 13 15-37 U/L Alanine Aminotransferase (ALT/SGPT) 21 12-78 U/L Alkaline Phosphatase 63 45-117 U/L Troponin I < 0.015 0-0.045 ng/ml Pro-B-Type Natriuretic Peptide 735 0-900 pg/ml Total Protein 6.5 6.4-8.2 gm/dl Albumin 2.9 3.4-5.0 gm/dl Globulin 3.6 2.5-4.0 gm/dl Albumin/Globulin Ratio 0.8 0.9-2 Venous Blood pH 7.25 7.36-7.41 Venous Blood Partial Pressure CO2 93 38.0-50.0 mmHg Venous Blood Partial Pressure O2 31 mmHg Venous Blood HCO3 40 mmol/L Venous Blood Oxygen Saturation < 60.0 % Venous Blood Base Excess 10.2 mEq/L Urine Color YELLOW Urine Appearance CLEAR CLEAR Urine pH 5.0 4.5-7.5 Urine Specific [place] 1.016 1.000-1.030 Urine Protein NEG NEG Urine Glucose (UA) NEG NEG Urine Ketones NEG NEG Urine Occult Blood NEG NEG Urine Nitrite NEG NEG Urine Bilirubin NEG NEG Urine Urobilinogen NEG NEG Urine Leukocyte Esterase NEG NEG Arterial Blood pH 7.29 7.35-7.45 Arterial Blood Partial Pressure CO2 77 35-46 mmHg Arterial Blood Partial Pressure O2 99 80-95 mm/Hg Arterial Blood HCO3 36 19-24 mmol/L Arterial Blood Oxygen Saturation 97.0 90-95 % Arterial Blood Base Excess 7.7 -9-1.8 mEq/L Arterial Blood Gas Delivery CPAP Alvaro Test POS POS Test 02/12/17 05:31 Range/Units White Blood Count 13.04 4.8-10.8 K/uL Red Blood Count 2.99 4.2-5.4 M/uL Hemoglobin 9.2 12.0-16.0 g/dL Hematocrit 29.4 37-47 % Mean Corpuscular Volume 98.3 80-100 fL Mean Corpuscular Hemoglobin 30.8 25-34 pg Mean Corpuscular Hemoglobin Concent 31.3 32-36 g/dl Platelet Count 158 130-400 K/uL Mean Platelet Volume 9.6 7.4-10.4 fL Neutrophils (%) (Auto) 95.5 % Lymphocytes (%) (Auto) 3.6 % Monocytes (%) (Auto) 0.3 % Eosinophils (%) (Auto) 0.2 % Basophils (%) (Auto) 0.1 % Neutrophils # (Auto) 12.46 1.4-6.5 K/uL Lymphocytes # (Auto) 0.47 1.2-3.4 K/uL Monocytes # (Auto) 0.04 0.11-0.59 K/uL Eosinophils # (Auto) 0.02 0-0.5 K/uL Basophils # (Auto) 0.01 0-0.2 K/uL RDW Standard Deviation 55.0 36.4-46.3 fL RDW Coefficient of Variation 15.3 11.5-14.5 % Immature Granulocyte % (Auto) 0.3 % Immature Granulocyte # (Auto) 0.04 0.00-0.02 K/uL Sodium Level 140 136-145 mmol/L Potassium Level 4.5 3.5-5.1 mmol/L Chloride Level 101 98-107 mmol/L Carbon Dioxide Level 35 21-32 mmol/L Anion Gap 4.0 3-11 mmol/L Blood Urea Nitrogen 63 7-18 mg/dl Creatinine 1.60 0.60-1.20 mg/dl Est Creatinine Clear Calc Drug Dose 42.5 ml/min Estimated GFR () 38.0 Estimated GFR (Non- 32.8 BUN/Creatinine Ratio 39.1 10-20 Random Glucose 191 70-99 mg/dl Calcium Level 9.8 8.5-10.1 mg/dl Diagnostic Radiology CXR 02/11/2017 FINDINGS: The heart is mildly enlarged. There is no focal pulmonary consolidation. There is no overt failure. There is minor left basilar atelectasis. There is evidence of a prior vertebroplasty. Postsurgical changes involve the right shoulder.[ IMPRESSION: Mild cardiomegaly. No acute findings. Impression Assessment and Plan Acute on chronic hypercapnic respiratory failure COPD SIMONA Obesity hypoventilation syndrome CKD Stage IV Acute on chronic hypercapnic respiratory failure is multifactorial in nature. She was recently admitted for two weeks ago for similar complaints and discharged home on steroid taper and antibiotics which improved her dyspnea. She presents again with increased levels of CO2. On last admission, I tapered her oxygen down to 2L with saturations in low 90, however she returns again on 4L NC. With her obesity hypoventilation and SIMONA, I feel that she is receiving too much oxygen which precipitates CO2 retention. She is also on pain medications and diuretic therapy that can precipate increased CO2. I also question her compliance with BiPAP machine. Recommendations. Continue with corticosteroids taper as tolerated Continue with albuterol and ipratropium nebulizers Continue with inhaled corticosteroids Continue with BIPAP at night and oxygen supplementation to maintain a SaO2 btw 88-92% Repeat ABG. Avoid sedatives and narcotics if at all possible. I will start roflulimast today as this may decrease another hospitalization. I appreciate the consult Advanced Directives Living Will: none
[2017-02-12] MEDS: TRAMADOL HCL 50 MG TAB PO PRN ×2 (13:36→22:40)
--- NOTE | 2017-02-12 15:46 | Progress Note ---
Internal Med Progress Note Date of Service: Feb 12, 2017. Provider Documentation: SUBJECTIVE: sitting on the chair says till sob but minimal better from yesterday has cough afebrile no chest pain but says having bilateral shoulders pain and asking for pain meds afebrile OBJECTIVE: Vital Signs-as noted below Exam: General-alert and oriented. Obese ENT-Normal hearing Neck-no neck masses supple Lungs-cta b/l no wheezing no crackles present Heart-s1 and s2 heard regular rate and rhythm no murmurs Abdomen-soft bowel sounds present non tender no distension Extremities- no erythema Neuro-alert and oriented moves extremities Lab data as noted below. ASSESSMENT & PLAN: 1. Acute hypoxemic, hypercapnic respiratory failure secondary to chronic obstructive pulmonary disease exacerbation. hx OHS on CPAP at night Multiple re-admissions this year for issue. compliance? po prednisone AND NEBS BIPAP Q HS Seen by pulmonary and appreciate inputs Roflumilast added by pulmonary will monitor 2. chronic diastolic heart failure. The patient is euvolemic. On bumex, cozaar and Toprol will monitor. 3. hx PAF, px NSR, not on anticoagulation 4. Chronic renal insufficiency, creatinine at baseline. will f/u labs. 5. Chronic anemia 2 to CKD, hemoglobin at baseline. will f/u labs.. 6. Past tobacco abuse. Dvt px hep sub q Disposition to be determined Vital Signs: Date Time Temp Pulse Resp B/P (MAP) Pulse Ox O2 Delivery O2 Flow Rate FiO2 02/12/17 14:16 70 20 98 Nasal Cannula 4.0 02/12/17 08:00 Nasal Cannula 4.0 02/12/17 07:46 36.6 76 18 136/76 (96) 99 4.0 02/12/17 02:26 78 20 93 BiPAP/CPAP 4.0 02/12/17 00:04 BiPAP 02/11/17 23:15 83 94 4.0 02/11/17 23:00 36.7 89 20 170/71 (104) 91 Nasal Cannula 4.0 02/11/17 21:45 76 20 111/53 100 Nasal Cannula 4.0 02/11/17 20:14 73 02/11/17 19:59 97 Nasal Cannula 4.0 02/11/17 19:59 37.3 74 23 145/51 97 Nasal Cannula 4.0 02/11/17 19:58 97 Nasal Cannula 4.0 02/11/17 19:58 97 Nasal Cannula 4.0 Lab Results: Results Past 24 Hours Test 02/11/17 20:30 02/11/17 20:31 02/11/17 20:45 02/12/17 00:12 Range/Units White Blood Count 11.08 4.8-10.8 K/uL Red Blood Count 2.98 4.2-5.4 M/uL Hemoglobin 8.9 12.0-16.0 g/dL Hematocrit 29.8 37-47 % Mean Corpuscular Volume 100.0 80-100 fL Mean Corpuscular Hemoglobin 29.9 25-34 pg Mean Corpuscular Hemoglobin Concent 29.9 32-36 g/dl Platelet Count 166 130-400 K/uL Mean Platelet Volume 9.3 7.4-10.4 fL Neutrophils (%) (Auto) 74.4 % Lymphocytes (%) (Auto) 16.0 % Monocytes (%) (Auto) 5.5 % Eosinophils (%) (Auto) 3.4 % Basophils (%) (Auto) 0.3 % Neutrophils # (Auto) 8.25 1.4-6.5 K/uL Lymphocytes # (Auto) 1.77 1.2-3.4 K/uL Monocytes # (Auto) 0.61 0.11-0.59 K/uL Eosinophils # (Auto) 0.38 0-0.5 K/uL Basophils # (Auto) 0.03 0-0.2 K/uL RDW Standard Deviation 55.7 36.4-46.3 fL RDW Coefficient of Variation 15.3 11.5-14.5 % Immature Granulocyte % (Auto) 0.4 % Immature Granulocyte # (Auto) 0.04 0.00-0.02 K/uL Stomatocytes 1+ Prothrombin Time 10.4 9.0-12.0 SECONDS Prothromb Time International Ratio 1.0 0.9-1.1 Activated Partial Thromboplast Time 21.8 21.0-31.0 SECONDS Partial Thromboplastin Ratio 0.8 D-Dimer 290 0-500 ug/L FEU Sodium Level 143 136-145 mmol/L Potassium Level 4.1 3.5-5.1 mmol/L Chloride Level 102 98-107 mmol/L Carbon Dioxide Level 40 21-32 mmol/L Anion Gap 1.0 3-11 mmol/L Blood Urea Nitrogen 71 7-18 mg/dl Creatinine 2.00 0.60-1.20 mg/dl Est Creatinine Clear Calc Drug Dose 33.7 ml/min Estimated GFR () 29.0 Estimated GFR (Non- 25.0 BUN/Creatinine Ratio 35.6 10-20 Random Glucose 113 70-99 mg/dl Calcium Level 9.7 8.5-10.1 mg/dl Magnesium Level 1.8 1.8-2.4 mg/dl Total Bilirubin 0.2 0.2-1 mg/dl Aspartate Amino Transf (AST/SGOT) 13 15-37 U/L Alanine Aminotransferase (ALT/SGPT) 21 12-78 U/L Alkaline Phosphatase 63 45-117 U/L Troponin I < 0.015 0-0.045 ng/ml Pro-B-Type Natriuretic Peptide 735 0-900 pg/ml Total Protein 6.5 6.4-8.2 gm/dl Albumin 2.9 3.4-5.0 gm/dl Globulin 3.6 2.5-4.0 gm/dl Albumin/Globulin Ratio 0.8 0.9-2 Venous Blood pH 7.25 7.36-7.41 Venous Blood Partial Pressure CO2 93 38.0-50.0 mmHg Venous Blood Partial Pressure O2 31 mmHg Venous Blood HCO3 40 mmol/L Venous Blood Oxygen Saturation < 60.0 % Venous Blood Base Excess 10.2 mEq/L Urine Color YELLOW Urine Appearance CLEAR CLEAR Urine pH 5.0 4.5-7.5 Urine Specific [place] 1.016 1.000-1.030 Urine Protein NEG NEG Urine Glucose (UA) NEG NEG Urine Ketones NEG NEG Urine Occult Blood NEG NEG Urine Nitrite NEG NEG Urine Bilirubin NEG NEG Urine Urobilinogen NEG NEG Urine Leukocyte Esterase NEG NEG Arterial Blood pH 7.29 7.35-7.45 Arterial Blood Partial Pressure CO2 77 35-46 mmHg Arterial Blood Partial Pressure O2 99 80-95 mm/Hg Arterial Blood HCO3 36 19-24 mmol/L Arterial Blood Oxygen Saturation 97.0 90-95 % Arterial Blood Base Excess 7.7 -9-1.8 mEq/L Arterial Blood Gas Delivery CPAP Alvaro Test POS POS Test 02/12/17 05:31 Range/Units White Blood Count 13.04 4.8-10.8 K/uL Red Blood Count 2.99 4.2-5.4 M/uL Hemoglobin 9.2 12.0-16.0 g/dL Hematocrit 29.4 37-47 % Mean Corpuscular Volume 98.3 80-100 fL Mean Corpuscular Hemoglobin 30.8 25-34 pg Mean Corpuscular Hemoglobin Concent 31.3 32-36 g/dl Platelet Count 158 130-400 K/uL Mean Platelet Volume 9.6 7.4-10.4 fL Neutrophils (%) (Auto) 95.5 % Lymphocytes (%) (Auto) 3.6 % Monocytes (%) (Auto) 0.3 % Eosinophils (%) (Auto) 0.2 % Basophils (%) (Auto) 0.1 % Neutrophils # (Auto) 12.46 1.4-6.5 K/uL Lymphocytes # (Auto) 0.47 1.2-3.4 K/uL Monocytes # (Auto) 0.04 0.11-0.59 K/uL Eosinophils # (Auto) 0.02 0-0.5 K/uL Basophils # (Auto) 0.01 0-0.2 K/uL RDW Standard Deviation 55.0 36.4-46.3 fL RDW Coefficient of Variation 15.3 11.5-14.5 % Immature Granulocyte % (Auto) 0.3 % Immature Granulocyte # (Auto) 0.04 0.00-0.02 K/uL Sodium Level 140 136-145 mmol/L Potassium Level 4.5 3.5-5.1 mmol/L Chloride Level 101 98-107 mmol/L Carbon Dioxide Level 35 21-32 mmol/L Anion Gap 4.0 3-11 mmol/L Blood Urea Nitrogen 63 7-18 mg/dl Creatinine 1.60 0.60-1.20 mg/dl Est Creatinine Clear Calc Drug Dose 42.5 ml/min Estimated GFR () 38.0 Estimated GFR (Non- 32.8 BUN/Creatinine Ratio 39.1 10-20 Random Glucose 191 70-99 mg/dl Calcium Level 9.8 8.5-10.1 mg/dl
[2017-02-13] VITALS (11 sets, daily range): BP systolic 117–144; BP diastolic 68–78; PULSE 65–92; TEMP 36.4–36.9; O2SAT 93–100
[2017-02-13] MEDS: LEVALBUTEROL 1.25MG/0.5ML NEB INH SCH ×4 (02:26→19:10)
[2017-02-13] MEDS: IPRATROPIUM BROMIDE NEB SOLN 0.02% 2.5 ML VIAL INH SCH ×4 (02:29→19:10)
[2017-02-13] MEDS: HYDROmorphone INJ 0.5 MG/0.5 ML SYR IV PRN ×6 (04:37→23:22)
[2017-02-13 06:06] LABS: BASO % 0.1 %; BASO ABS # 0.01 K/uL (0-0.2); EOS % 0.7 %; IG% 0.4 %; LYMPH % 8.3 %; LYMPH ABS # 1.36 K/uL (1.2-3.4); MEAN CELL VOLUME 98.5 fL (80-100); MEAN CORPUSCULAR HGB CONC 31.5 g/dl (32-36); MEAN PLATELET VOLUME 9.6 fL (7.4-10.4); MONO % 5.8 %; NEUT % 84.7 %; PLATELET COUNT 157 K/uL (130-400); RED BLOOD COUNT 2.74 M/uL (4.2-5.4); WHITE BLOOD COUNT 16.31 K/uL (4.8-10.8)
[2017-02-13] MEDS: LEVOTHYROXINE 88 MCG TAB PO SCH (06:19)
[2017-02-13] MEDS: HEPARIN SOD 5000 UNIT/0.5 ML CARP SQ SCH ×3 (06:34→21:39)
[2017-02-13 06:37] LABS: BUN/CREATININE RATIO 40.1 (10-20); CALCIUM 9.1 mg/dl (8.5-10.1); CREATININE 1.6 mg/dl (0.60-1.20); POTASSIUM 4.1 mmol/L (3.5-5.1)
[2017-02-13 06:55] LABS: COMPLETE YES; STOMATOCYTE 1+
[2017-02-13] MEDS ORDERED: POTASSIUM CHLORIDE 20 MEQ TABCR PO SCH (08:00)
[2017-02-13] MEDS: LOSARTAN POTASSIUM 50 MG TAB PO SCH (08:55)
[2017-02-13] MEDS: FERROUS SULFATE 325 MG TAB PO SCH (08:57)
[2017-02-13] MEDS: ASPIRIN 81 MG ECTAB PO SCH (08:57)
[2017-02-13] MEDS: ROFLUMILAST 500 MCG TAB PO SCH (08:57)
[2017-02-13] MEDS: LACTOBACILLUS ACIDOPHILUS (FLORANEX) TAB PO SCH ×3 (08:58→17:34)
[2017-02-13] MEDS: ATORVASTATIN 20 MG TAB PO SCH (08:59)
[2017-02-13] MEDS: CEROVITE ADV FORMULA TAB PO SCH (08:59)
[2017-02-13] MEDS: GABAPENTIN 100 MG CAP PO SCH ×3 (09:00→20:14)
[2017-02-13] MEDS: PROPAFENONE HCL 150 MG TAB PO SCH ×3 (09:01→20:15)
[2017-02-13] MEDS: ALLOPURINOL 300 MG TAB PO SCH (09:01)
[2017-02-13] MEDS: METOPROLOL SUCC 50MG EXT REL TAB PO SCH (09:01)
[2017-02-13] MEDS: RANITIDINE HCL 150 MG TAB PO SCH ×2 (09:01→20:14)
[2017-02-13] MEDS: BUMETANIDE 1 MG TAB PO SCH ×2 (09:02→17:32)
[2017-02-13 11:57] LABS: ALLEN TEST POS (POS); ARTERIAL BLD GAS O2 SATURATION 96.8 % (90-95); ARTERIAL BLOOD GAS BASE EXCESS 9.1 mEq/L (-9-1.8); ARTERIAL BLOOD GAS HCO3 36 mmol/L (19-24); ARTERIAL BLOOD GAS PO2 110 mm/Hg (80-95); ARTERIAL BLOOD GAS pH 7.36 (7.35-7.45); O2 ADMINISTRATION 3 L
--- NOTE | 2017-02-13 12:47 | Pulmonology Progress Note ---
Pulmonary Progress Note Date of Service Feb 13, 2017. Attending Dr. Niño Subjective Patient seen and examined. She states that she feels like she is back her baseline and wants to go home. She still has intermittent pain in her shoulders. She denies any fevers, chills, shortness of breath, chest pain, or cough. Objective Head: normocephalic, atraumatic, healing scab between eyes Skin: Significant for seborrheic dermatitis on face. Eyes: normal inspection, EOMI, sclerae normal ENT: normal ENT inspection, pharynx normal Neck: supple, no adenopathy, trachea midline Respiratory/Chest: Decreased breath sounds bilaterally, no crackles or wheezes Cardiovascular: regular rate, rhythm, no edema, no murmur Abdomen / GI: normal bowel sounds, non tender, morbidly obese Back: Intact Extremities: normal inspection, normal range of motion, trace edema of bilateral lower extremities no clubbing, no cyanosis. Neurologic/Psych: no motor/sensory deficits, awake alert oriented 3 Assessment & Plan Acute on chronic hypercapnic respiratory failure COPD SIMONA Obesity hypoventilation syndrome CKD Stage IV Patient appears back her baseline. Her PCO2 is around 65 on ABG. She is awake and alert, feels she is ready to be discharged. Continue with BIPAP at night and oxygen supplementation to maintain a SaO2 btw 88-92% Continue with corticosteroids taper Continue with albuterol and ipratropium nebulizers, combivent inhaler Continue with inhaled corticosteroids of Advair 500/50 diskus Start Spiriva 1 puff daily. Avoid sedatives and narcotics if at all possible. c/w roflulimast as this may decrease another hospitalization. I will sign off case today. Please reconsult if you any other questions or concerns. Data Medications: Current Inpatient Medications Medications (Trade) Dose Ordered Sig/Rupinder Route Start Time Stop Time Status Last Admin Dose Admin Heparin Sodium (Porcine) (Heparin Sq 5000 Unit/0.5ml) 5,000 unit Q8 SQ 02/12/17 06:00 03/14/17 05:59 02/13/17 06:34 5,000 UNIT Acetaminophen (Tylenol Tab) 650 mg Q4H PRN PO 02/11/17 23:00 03/13/17 22:59 Hydromorphone HCl (Dilaudid Inj) 0.5 mg Q3H PRN IV 02/11/17 23:00 8/17/17 22:59 02/13/17 09:05 0.5 MG Tramadol HCl (Ultram Tab) not relieved by tylenol @ Q6H PRN PO 02/11/17 23:00 03/13/17 22:59 02/12/17 22:40 50 MG Prednisone (PredniSONE TAB) 40 mg DAILY PO 02/12/17 08:00 02/17/17 07:59 02/13/17 09:00 40 MG Allopurinol (Zyloprim Tab) 300 mg DAILY PO 02/12/17 09:00 03/14/17 08:59 02/13/17 09:01 300 MG Aspirin (Ecotrin Tab) 81 mg DAILY PO 02/12/17 09:00 03/14/17 08:59 02/13/17 08:57 81 MG Atorvastatin Calcium (Lipitor Tab) 20 mg DAILY PO 02/12/17 09:00 03/14/17 08:59 02/13/17 08:59 20 MG Bumetanide (Bumex Tab) 1 mg BID17 PO 02/12/17 09:00 03/14/17 08:59 02/13/17 09:02 1 MG Gabapentin (Neurontin Cap) 200 mg TID PO 02/12/17 08:00 03/14/17 07:59 02/13/17 09:00 200 MG Lactobacillus Acidophilus (Floranex Tab) 4 tab TIDM PO 02/12/17 08:00 03/14/17 07:59 02/13/17 08:58 4 TAB Levothyroxine Sodium (Synthroid Tab) 88 mcg DAILYBB PO 02/12/17 06:30 03/14/17 06:29 02/13/17 06:19 88 MCG Losartan Potassium (coZAAR TAB) 50 mg QAM PO 02/12/17 09:00 03/14/17 08:59 02/13/17 08:55 50 MG Metoprolol Succinate (Toprol Xl Tab) 50 mg DAILY PO 02/12/17 09:00 03/14/17 08:59 02/13/17 09:01 50 MG Multivitamins/ Minerals (Multivitamin W/ Minerals Tab) 1 tab DAILY PO 02/12/17 09:00 03/14/17 08:59 02/13/17 08:59 1 TAB Potassium Chloride (Klor-Con Tab) 20 meq Q2D PO 02/13/17 08:00 03/15/17 07:59 02/13/17 08:58 20 MEQ Propafenone HCl (Rythmol Tab) 150 mg TID PO 02/12/17 08:00 03/14/17 07:59 02/13/17 09:01 150 MG Ranitidine HCl (zANTac TAB) 150 mg BID PO 02/12/17 09:00 03/14/17 08:59 02/13/17 09:01 150 MG Ferrous Sulfate (Feosol Tab) 325 mg DAILY PO 02/12/17 08:00 03/14/17 07:59 02/13/17 08:57 325 MG Ipratropium [place] (Atrovent 0.02% 0.5MG/2.5ML Neb) 0.5 mg Q6R INH 02/12/17 03:00 03/14/17 02:59 02/13/17 07:21 0.5 MG Levalbuterol (Xopenex 1.25MG/ 0.5ML Neb) 1.25 mg Q6R INH 02/12/17 03:00 03/14/17 02:59 02/13/17 07:21 1.25 MG Ipratropium [place] (Atrovent 0.02% 0.5MG/2.5ML Neb) 0.5 mg Q4H PRN INH 02/11/17 23:45 03/13/17 23:44 Levalbuterol (Xopenex 1.25MG/ 0.5ML Neb) 1.25 mg Q4H PRN INH 02/11/17 23:45 03/13/17 23:44 Promethazine HCl 12.5 mg/Sodium Chloride 50.5 ml @ 204 mls/hr Q6H PRN IV 02/12/17 05:00 03/14/17 04:59 02/12/17 05:37 204 MLS/HR Roflumilast (Daliresp Tab) 500 mcg DAILY PO 02/13/17 08:00 03/15/17 07:59 02/13/17 08:57 500 MCG Vital Signs: Date Time Temp Pulse Resp B/P (MAP) Pulse Ox O2 Delivery O2 Flow Rate FiO2 02/13/17 08:00 Nasal Cannula 3.0 02/13/17 07:22 69 18 99 Nasal Cannula 4.0 02/13/17 07:04 36.4 66 18 130/78 (95) 100 4.0 02/13/17 02:29 73 18 93 BiPAP/CPAP 4.0 02/13/17 00:30 100 Nasal Cannula 3.0 CPAP 02/12/17 23:39 36.3 73 20 113/57 (75) 96 Nasal Cannula 3.0 02/12/17 23:37 75 100 4.0 02/12/17 20:32 79 134/71 (92) 02/12/17 19:56 78 18 99 Nasal Cannula 4.0 02/12/17 16:00 97 Nasal Cannula 3.0 02/12/17 15:52 36.3 72 18 146/71 (96) 96 Nasal Cannula 4.0 02/12/17 14:16 70 20 98 Nasal Cannula 4.0 Laboratory Results: Last 24 Hours Test 02/13/17 05:29 02/13/17 11:46 White Blood Count 16.31 K/uL Red Blood Count 2.74 M/uL Hemoglobin 8.5 g/dL Hematocrit 27.0 % Mean Corpuscular Volume 98.5 fL Mean Corpuscular Hemoglobin 31.0 pg Mean Corpuscular Hemoglobin Concent 31.5 g/dl Platelet Count 157 K/uL Mean Platelet Volume 9.6 fL Neutrophils (%) (Auto) 84.7 % Lymphocytes (%) (Auto) 8.3 % Monocytes (%) (Auto) 5.8 % Eosinophils (%) (Auto) 0.7 % Basophils (%) (Auto) 0.1 % Neutrophils # (Auto) 13.81 K/uL Lymphocytes # (Auto) 1.36 K/uL Monocytes # (Auto) 0.95 K/uL Eosinophils # (Auto) 0.11 K/uL Basophils # (Auto) 0.01 K/uL RDW Standard Deviation 55.8 fL RDW Coefficient of Variation 15.5 % Immature Granulocyte % (Auto) 0.4 % Immature Granulocyte # (Auto) 0.07 K/uL Basophilic Stippling 1+ Stomatocytes 1+ Sodium Level 138 mmol/L Potassium Level 4.1 mmol/L Chloride Level 98 mmol/L Carbon Dioxide Level 37 mmol/L Anion Gap 3.0 mmol/L Blood Urea Nitrogen 64 mg/dl Creatinine 1.60 mg/dl Est Creatinine Clear Calc Drug Dose 42.5 ml/min Estimated GFR () 38.0 Estimated GFR (Non- 32.8 BUN/Creatinine Ratio 40.1 Random Glucose 121 mg/dl Calcium Level 9.1 mg/dl Arterial Blood pH 7.36 Arterial Blood Partial Pressure CO2 65 mmHg Arterial Blood Partial Pressure O2 110 mm/Hg Arterial Blood HCO3 36 mmol/L Arterial Blood Oxygen Saturation 96.8 % Arterial Blood Base Excess 9.1 mEq/L Arterial Blood Gas Delivery 3 L Alvaro Test POS
--- NOTE | 2017-02-13 17:33 | Progress Note ---
Internal Med Progress Note Date of Service: Feb 13, 2017. Provider Documentation: SUBJECTIVE: lying on the bed comfortably sob and cough is better afebrile has shoulder pains eating ok OBJECTIVE: Vital Signs-as noted below Exam: General-alert and oriented. Obese ENT-Normal hearing Neck-no neck masses supple Lungs-cta b/l no wheezing no crackles present Heart-s1 and s2 heard regular rate and rhythm no murmurs Abdomen-soft bowel sounds present non tender no distension Extremities- no erythema Neuro-alert and oriented moves extremities Lab data as noted below. ASSESSMENT & PLAN: 1. Acute hypoxemic, hypercapnic respiratory failure secondary to chronic obstructive pulmonary disease exacerbation. hx OHS on CPAP at night Multiple re-admissions this year for issue. compliance? po prednisone AND NEBS BIPAP Q HS Seen by pulmonary and appreciate inputs Roflumilast added by pulmonary improving will monitor 2. chronic diastolic heart failure. The patient is euvolemic. On Bumex, Cozaar and Toprol will monitor.Stable 3. hx PAF, px NSR, not on anticoagulation. Stable 4. Chronic renal insufficiency, creatinine at baseline. will f/u labs. 5. Chronic anemia 2 to CKD, hemoglobin at baseline. will f/u labs.. 6. Past tobacco abuse. Dvt px hep sub q Disposition pt/ot possible d/c in 1-2 days Vital Signs: Date Time Temp Pulse Resp B/P (MAP) Pulse Ox O2 Delivery O2 Flow Rate FiO2 02/13/17 16:00 Nasal Cannula 3.0 02/13/17 15:33 36.7 92 20 144/68 (93) 94 Nasal Cannula 3.0 02/13/17 14:09 76 18 97 Nasal Cannula 3.0 02/13/17 08:00 Nasal Cannula 3.0 02/13/17 07:22 69 18 99 Nasal Cannula 4.0 02/13/17 07:04 36.4 66 18 130/78 (95) 100 4.0 02/13/17 02:29 73 18 93 BiPAP/CPAP 4.0 02/13/17 00:30 100 Nasal Cannula 3.0 CPAP 02/12/17 23:39 36.3 73 20 113/57 (75) 96 Nasal Cannula 3.0 02/12/17 23:37 75 100 4.0 02/12/17 20:32 79 134/71 (92) 02/12/17 19:56 78 18 99 Nasal Cannula 4.0 Lab Results: Results Past 24 Hours Test 02/13/17 05:29 02/13/17 11:46 Range/Units White Blood Count 16.31 4.8-10.8 K/uL Red Blood Count 2.74 4.2-5.4 M/uL Hemoglobin 8.5 12.0-16.0 g/dL Hematocrit 27.0 37-47 % Mean Corpuscular Volume 98.5 80-100 fL Mean Corpuscular Hemoglobin 31.0 25-34 pg Mean Corpuscular Hemoglobin Concent 31.5 32-36 g/dl Platelet Count 157 130-400 K/uL Mean Platelet Volume 9.6 7.4-10.4 fL Neutrophils (%) (Auto) 84.7 % Lymphocytes (%) (Auto) 8.3 % Monocytes (%) (Auto) 5.8 % Eosinophils (%) (Auto) 0.7 % Basophils (%) (Auto) 0.1 % Neutrophils # (Auto) 13.81 1.4-6.5 K/uL Lymphocytes # (Auto) 1.36 1.2-3.4 K/uL Monocytes # (Auto) 0.95 0.11-0.59 K/uL Eosinophils # (Auto) 0.11 0-0.5 K/uL Basophils # (Auto) 0.01 0-0.2 K/uL RDW Standard Deviation 55.8 36.4-46.3 fL RDW Coefficient of Variation 15.5 11.5-14.5 % Immature Granulocyte % (Auto) 0.4 % Immature Granulocyte # (Auto) 0.07 0.00-0.02 K/uL Basophilic Stippling 1+ Stomatocytes 1+ Sodium Level 138 136-145 mmol/L Potassium Level 4.1 3.5-5.1 mmol/L Chloride Level 98 98-107 mmol/L Carbon Dioxide Level 37 21-32 mmol/L Anion Gap 3.0 3-11 mmol/L Blood Urea Nitrogen 64 7-18 mg/dl Creatinine 1.60 0.60-1.20 mg/dl Est Creatinine Clear Calc Drug Dose 42.5 ml/min Estimated GFR () 38.0 Estimated GFR (Non- 32.8 BUN/Creatinine Ratio 40.1 10-20 Random Glucose 121 70-99 mg/dl Calcium Level 9.1 8.5-10.1 mg/dl Arterial Blood pH 7.36 7.35-7.45 Arterial Blood Partial Pressure CO2 65 35-46 mmHg Arterial Blood Partial Pressure O2 110 80-95 mm/Hg Arterial Blood HCO3 36 19-24 mmol/L Arterial Blood Oxygen Saturation 96.8 90-95 % Arterial Blood Base Excess 9.1 -9-1.8 mEq/L Arterial Blood Gas Delivery 3 L Alvaro Test POS POS
[2017-02-14] MEDS: IPRATROPIUM BROMIDE NEB SOLN 0.02% 2.5 ML VIAL INH SCH ×2 (01:52→07:20)
[2017-02-14] MEDS: LEVALBUTEROL 1.25MG/0.5ML NEB INH SCH ×2 (01:52→07:20)
[2017-02-14 01:55] VITALS: PULSE 80; O2SAT 96
[2017-02-14] MEDS: HYDROmorphone INJ 0.5 MG/0.5 ML SYR IV PRN ×3 (04:10→12:26)
[2017-02-14] MEDS: HEPARIN SOD 5000 UNIT/0.5 ML CARP SQ SCH ×2 (05:46→12:46)
[2017-02-14 05:47] LABS: BASO % 0.1 %; BASO ABS # 0.01 K/uL (0-0.2); EOS % 1.2 %; HEMATOCRIT 28.1 % (37-47); IG% 0.3 %; LYMPH % 18.7 %; LYMPH ABS # 2.52 K/uL (1.2-3.4); MEAN CELL VOLUME 98.6 fL (80-100); MEAN CORPUSCULAR HEMOGLOBIN 30.2 pg (25-34); MEAN CORPUSCULAR HGB CONC 30.6 g/dl (32-36); MEAN PLATELET VOLUME 9.5 fL (7.4-10.4); MONO % 6.2 %; NEUT % 73.5 %; PLATELET COUNT 166 K/uL (130-400); RED BLOOD COUNT 2.85 M/uL (4.2-5.4); WHITE BLOOD COUNT 13.49 K/uL (4.8-10.8)
[2017-02-14] MEDS: LEVOTHYROXINE 88 MCG TAB PO SCH (05:47)
[2017-02-14 06:16] LABS: COMPLETE YES
[2017-02-14 06:19] LABS: BUN/CREATININE RATIO 41.5 (10-20); CALCIUM 8.8 mg/dl (8.5-10.1); CREATININE 1.5 mg/dl (0.60-1.20)
[2017-02-14 07:20] VITALS: PULSE 81; O2SAT 97
[2017-02-14 07:28] VITALS: BP 126/69; PULSE 72; TEMP 36.7; O2SAT 100
[2017-02-14] MEDS: LACTOBACILLUS ACIDOPHILUS (FLORANEX) TAB PO SCH ×2 (08:35→12:26)
[2017-02-14] MEDS: FERROUS SULFATE 325 MG TAB PO SCH (08:35)
[2017-02-14] MEDS: ATORVASTATIN 20 MG TAB PO SCH (08:35)
[2017-02-14] MEDS: METOPROLOL SUCC 50MG EXT REL TAB PO SCH (08:35)
[2017-02-14] MEDS: ALLOPURINOL 300 MG TAB PO SCH (08:35)
[2017-02-14] MEDS: LOSARTAN POTASSIUM 50 MG TAB PO SCH (08:35)
[2017-02-14] MEDS: GABAPENTIN 100 MG CAP PO SCH ×2 (08:36→12:41)
[2017-02-14] MEDS: RANITIDINE HCL 150 MG TAB PO SCH (08:36)
[2017-02-14] MEDS: CEROVITE ADV FORMULA TAB PO SCH (08:36)
[2017-02-14] MEDS: PROPAFENONE HCL 150 MG TAB PO SCH ×2 (08:36→12:42)
[2017-02-14] MEDS: BUMETANIDE 1 MG TAB PO SCH (08:37)
[2017-02-14] MEDS: ASPIRIN 81 MG ECTAB PO SCH (08:37)
[2017-02-14] MEDS: ROFLUMILAST 500 MCG TAB PO SCH (08:37)
[2017-02-14] MEDS ORDERED: DLR500 PO (13:07)
[2017-02-14] MEDS ORDERED: PRED10TA PO (13:07)
--- NOTE | 2017-02-14 13:09 | Discharge Instructions ---
Discharge Instructions Date of Service Feb 14, 2017. Admission Reason for Admission: Respiratory Failure, Vrkek-Li-Nyetysm Discharge Discharge Diagnosis / Problem: ACUTE ON CHRONIC RESP FAILURE, COPD EX Discharge Goals Goal(s): Decrease discomfort, Improve function Activity Recommendations Activity Limitations: resume your previous activity . Instructions / Follow-Up Instructions / Follow-Up FOLLOWUP WITH FAMILY DOCTOR IN ONE WEEK. ( PATIENT WILL BE CALLED WITH APPOINTMENT). FOLLOWUP WITH PULMONARY IN 1-2 WEEKS. Current Hospital Diet Patient's current hospital diet: AHA Diet (Heart Healthy) Discharge Diet Recommended Diet: AHA Diet (Heart Healthy) Pending Studies Studies pending at discharge: no Medical Emergencies . Who to Call and When: Medical Emergencies: If at any time you feel your situation is an emergency, please call 911 immediately. . Non-Emergent Contact Non-Emergency issues call your: Primary Care Provider . . "Provider Documentation" section prepared by Manjit Frais. . VTE Core Measure Inpt VTE Proph given/why not?: Unfractionated heparin SQ
[2017-02-14 13:11] VITALS: BP 126/69; PULSE 72; TEMP 36.7; O2SAT 100
--- NOTE | 2017-02-14 18:48 | Progress Note ---
Internal Med Progress Note Date of Service: Feb 14, 2017. Provider Documentation: SUBJECTIVE: lying on the bed comfortably says sob and cough much improved afebrile want to go home OBJECTIVE: Vital Signs-as noted below Exam: General-alert and oriented. Obese ENT-Normal hearing Neck-no neck masses supple Lungs-cta b/l no wheezing no crackles present Heart-s1 and s2 heard regular rate and rhythm no murmurs Abdomen-soft bowel sounds present non tender no distension Extremities- no erythema Neuro-alert and oriented moves extremities Lab data as noted below. ASSESSMENT & PLAN: 1. Acute hypoxemic, hypercapnic respiratory failure secondary to chronic obstructive pulmonary disease exacerbation. hx OHS on CPAP at night Multiple re-admissions this year for issue. compliance? po prednisone AND NEBS BIPAP Q HS Seen by pulmonary and appreciate inputs Roflumilast added by pulmonary improving discharged on tapering steroids and home meds and roflumilast f/u with pcp and pulmonary 2. chronic diastolic heart failure. The patient is euvolemic. On Bumex, Cozaar and Toprol will monitor.Stable 3. hx PAF, px NSR, not on anticoagulation. Stable 4. Chronic renal insufficiency, creatinine at baseline. will f/u labs. 5. Chronic anemia 2 to CKD, hemoglobin at baseline. will f/u labs.. 6. Past tobacco abuse. Discharged home Vital Signs: Date Time Temp Pulse Resp B/P (MAP) Pulse Ox O2 Delivery O2 Flow Rate FiO2 02/14/17 13:11 36.7 72 18 100 Nasal Cannula CPAP 02/14/17 09:30 Nasal Cannula 3.0 02/14/17 07:28 36.7 72 18 126/69 (88) 100 4.0 02/14/17 07:20 81 14 97 Nasal Cannula 4.0 02/14/17 01:55 80 18 96 BiPAP/CPAP 4.0 02/14/17 00:00 BiPAP 3.0 02/13/17 23:21 36.9 65 20 117/69 (85) 99 BiPAP 02/13/17 22:05 98 4.0 02/13/17 20:20 72 127/69 (88) 02/13/17 20:00 Nasal Cannula 3.0 02/13/17 19:48 75 18 96 Nasal Cannula 3.0 Lab Results: Results Past 24 Hours Test 02/14/17 05:09 Range/Units White Blood Count 13.49 4.8-10.8 K/uL Red Blood Count 2.85 4.2-5.4 M/uL Hemoglobin 8.6 12.0-16.0 g/dL Hematocrit 28.1 37-47 % Mean Corpuscular Volume 98.6 80-100 fL Mean Corpuscular Hemoglobin 30.2 25-34 pg Mean Corpuscular Hemoglobin Concent 30.6 32-36 g/dl Platelet Count 166 130-400 K/uL Mean Platelet Volume 9.5 7.4-10.4 fL Neutrophils (%) (Auto) 73.5 % Lymphocytes (%) (Auto) 18.7 % Monocytes (%) (Auto) 6.2 % Eosinophils (%) (Auto) 1.2 % Basophils (%) (Auto) 0.1 % Neutrophils # (Auto) 9.92 1.4-6.5 K/uL Lymphocytes # (Auto) 2.52 1.2-3.4 K/uL Monocytes # (Auto) 0.84 0.11-0.59 K/uL Eosinophils # (Auto) 0.16 0-0.5 K/uL Basophils # (Auto) 0.01 0-0.2 K/uL RDW Standard Deviation 56.0 36.4-46.3 fL RDW Coefficient of Variation 15.5 11.5-14.5 % Immature Granulocyte % (Auto) 0.3 % Immature Granulocyte # (Auto) 0.04 0.00-0.02 K/uL Red Blood Cell Morphology Unremarkable Sodium Level 142 136-145 mmol/L Potassium Level 4.0 3.5-5.1 mmol/L Chloride Level 101 98-107 mmol/L Carbon Dioxide Level 40 21-32 mmol/L Anion Gap 1.0 3-11 mmol/L Blood Urea Nitrogen 62 7-18 mg/dl Creatinine 1.50 0.60-1.20 mg/dl Est Creatinine Clear Calc Drug Dose 45.3 ml/min Estimated GFR () 41.1 Estimated GFR (Non- 35.4 BUN/Creatinine Ratio 41.5 10-20 Random Glucose 97 70-99 mg/dl Calcium Level 8.8 8.5-10.1 mg/dl
--- NOTE | 2017-02-14 18:56 | Discharge Summary ---
Discharge Summary Date of Service Feb 14, 2017. Discharge Summary Admission Date: Feb 11, 2017 at 22:25 Discharge Date: Feb 14, 2017 Discharge Disposition: Home Principal Diagnosis: ACUTE ON CHRONIC RESP FAILURE COPD EX Secondary Diagnoses/Problems: chronic hypoxemic respiratory failure secondary to COPD on home O2, OHS on CPAP, paroxysmal atrial fibrillation not on anticoagulation, hypertension, chronic diastolic heart failure, EF of 65-70% (2D echo in May 2016), past tobacco abuse, chronic renal insufficiency, baseline creatinine 1.5-2, chronic anemia (baseline hemoglobin of 9-10 Procedures: CXR: Mild cardiomegaly. No acute findings. Consultations: PULMONARY Medication Reconciliation New Medications: Prednisone (Prednisone) 10 Mg Tab 40 MG PO UD, #21 TAB PREDNISONE 40MG PO DAILY X 2 DAYS THEN PREDNISONE 30MG PO DAILY X 2 DAYS THEN PREDNISONE 20MG PO DAILY X 2 DAYS THEN PREDNISONE 10MG PO DAILY X 2 DAYS THEN PREDNISONE 5MG PO DAILY X 2 DAYS THEN STOP. Roflumilast (Daliresp) 500 Mcg Tab 500 MCG PO DAILY, #30 TAB 1 Refill Continued Medications: Acetaminophen (Tylenol) 325 Mg Tab 650 MG PO Q4H PRN for Pain or Fever, TAB Albuterol Sulf (Proventil 0.083% 2.5MG/3ML) 2.5 Mg/3 Ml Nebu 2.5 MG INH QID PRN for SOB/Wheezing, #1 EA Allopurinol (Zyloprim) 300 Mg Tab 300 MG PO DAILY, TAB Aspirin (Aspirin Ec) 81 Mg Tab 81 MG PO DAILY Atorvastatin (Lipitor) 20 Mg Tab 20 MG PO DAILY, TAB Bumetanide (Bumetanide) 1 Mg Tab 1 MG PO BID for 30 Days, #60 TAB Ferrous Sulfate (Kp Ferrous Sulfate) 325 Mg Tab 1 TAB PO DAILY for 30 Days, #30 TAB 3 Refills Fluticasone Prop/Salmeterol (Advair Diskus 500/50 60 Dose) 1 Ea Aerp 1 PUFFS INH BID for 30 Days, #1 INHALER 5 Refills Gabapentin (Neurontin) 300 Mg Cap 300 MG PO TID, CAP Ipratropium-Albuterol (Combivent Respimat) 1 Aer Aer 1 PUFFS INH QID PRN for sob/wheezing, #1 INH Lactobacillus Acidophilus (Lactinex) Tab 1 TAB PO TID, #30 TAB Levothyroxine Sodium (Synthroid) 88 Mcg Tab 88 MCG PO DAILY, TAB Losartan Potassium (Losartan Potassium) 50 Mg Tab 50 MG PO QAM for 30 Days, #30 TAB Metoprolol Succinate (Toprol Xl) 50 Mg Tab 50 MG PO DAILY, TAB Multivitamins/Minerals (Certavite/Antioxidants) 1 Tab Tab 1 TAB PO DAILY Potassium Ext Rel (Klor-Con) 20 Meq Tabcr 20 MEQ PO Q2D for 30 Days, TAB every other day Propafenone Hcl (Propafenone Hcl) 150 Mg Tab 150 MG PO TID Ranitidine (Zantac) 150 Mg Tab 150 MG PO BID, TAB Discontinued Medications: Levofloxacin (Levaquin) 500 Mg Tab 500 MG PO DAILY for 7 Days, TAB Admission Information HPI (per Admitting provider): History obtained from patient and records. Medical history significant for chronic hypoxemic respiratory failure secondary to COPD on home O2, OHS on CPAP, paroxysmal atrial fibrillation not on anticoagulation, hypertension, chronic diastolic heart failure, EF of 65-70% (2D echo in May 2016), past tobacco abuse, chronic renal insufficiency, baseline creatinine 1.5-2, chronic anemia (baseline hemoglobin of 9-10). Recent confinement about 2 weeks ago for COPD exacerbation, complicated bronchitis. Patient discharged on Levaquin and prednisone course. Productive cough symptoms, shortness of breath improved. The last 2 days the patient noted increasing shortness of breath than usual. Denies weight gain. Left-sided chest pain, pleuritic. Usual dry cough symptoms. At the Emergency Room, the patient received Solu-Medrol and breathing treatment for COPD exacerbation. Patient feeling better. Physical Exam (per Admitting): VITAL SIGNS: Blood pressure was noted to be 145/51, pulse rate 75, RR 22, T 37 O2 97 on 4 liters. GENERAL: min respiratory distress, obese. SKIN: Pallor. HEENT: Pale palpebral conjunctivae. Dry mucosa. Crusting, nasofrontal area. Nasal cannula in place. NECK: Short neck. LUNGS: Decreased breath sounds. CHEST: ant L chest wall tenderness. ABDOMEN: Some distention, nontender. EXTREMITIES: Bilateral lower extremity edema, no tenderness. NEUROLOGIC: No gross focality Hospital Course 1. Acute hypoxemic, hypercapnic respiratory failure secondary to chronic obstructive pulmonary disease exacerbation. hx OHS on CPAP at night Multiple re-admissions this year for issue. compliance? po prednisone AND NEBS BIPAP Q HS Seen by pulmonary and appreciate inputs Roflumilast added by pulmonary improving discharged on tapering steroids and home meds and roflumilast f/u with pcp and pulmonary 2. chronic diastolic heart failure. The patient is euvolemic. On Bumex, Cozaar and Toprol will monitor.Stable 3. hx PAF, px NSR, not on anticoagulation. Stable 4. Chronic renal insufficiency, creatinine at baseline. will f/u labs. 5. Chronic anemia 2 to CKD, hemoglobin at baseline. will f/u labs.. 6. Past tobacco abuse. Discharged home Total time spent on discharge = 35MINUTES This includes examination of the patient, discharge planning, medication reconciliation, and communication with other providers. Discharge Instructions Discharge Instructions Date of Service Feb 14, 2017. Admission Reason for Admission: Respiratory Failure, [place] Discharge Discharge Diagnosis / Problem: ACUTE ON CHRONIC RESP FAILURE, COPD EX Discharge Goals Goal(s): Decrease discomfort, Improve function Activity Recommendations Activity Limitations: resume your previous activity . Instructions / Follow-Up Instructions / Follow-Up FOLLOWUP WITH FAMILY DOCTOR IN ONE WEEK. ( PATIENT WILL BE CALLED WITH APPOINTMENT). FOLLOWUP WITH PULMONARY IN 1-2 WEEKS. Current Hospital Diet Patient's current hospital diet: AHA Diet (Heart Healthy) Discharge Diet Recommended Diet: AHA Diet (Heart Healthy) Pending Studies Studies pending at discharge: no Medical Emergencies . Who to Call and When: Medical Emergencies: If at any time you feel your situation is an emergency, please call 911 immediately. . Non-Emergent Contact Non-Emergency issues call your: Primary Care Provider . . "Provider Documentation" section prepared by Manjit Frias. . VTE Core Measure Inpt VTE Proph given/why not?: Unfractionated heparin SQ
[2017-02-22] MEDS ORDERED: ULT50X PO (16:20)
== END 2017-02-14 14:48 | disposition home or self-care (01) | DRG 189 ==
LOC: EDBD 19:41 → C.EDC 19:43 → C.4E 22:25 → ENRESERV 22:42
PROVIDERS: ADMIT Internal Medicine; ATTEND Internal Medicine
DX: J96.22 Acute and chronic respiratory failure with hypercapnia (principal); I50.32 Chronic diastolic (congestive) heart failure; J44.1 Chronic obstructive pulmonary disease with (acute) exacerbation; E66.2 Morbid (severe) obesity with alveolar hypoventilation; I13.0 Hypertensive heart and chronic kidney disease with heart failure and stage 1 through stage 4 chronic kidney disease, or unspecified chronic kidney disease; Z68.43 Body mass index [BMI] 50.0-59.9, adult; D63.1 Anemia in chronic kidney disease; J96.21 Acute and chronic respiratory failure with hypoxia; M10.9 Gout, unspecified; N18.9 Chronic kidney disease, unspecified; I48.0 Paroxysmal atrial fibrillation; Z83.3 Family history of diabetes mellitus; Z82.49 Family history of ischemic heart disease and other diseases of the circulatory system; Z87.891 Personal history of nicotine dependence; Z96.649 Presence of unspecified artificial hip joint; Z96.619 Presence of unspecified artificial shoulder joint; Z99.81 Dependence on supplemental oxygen; Z79.82 Long term (current) use of aspirin

== ENCOUNTER 2017-02-19 11:02 | Inpatient (IN) | payer OTHER ==
[~2017-02-19] VITALS: Ht 162.6 cm; Wt 121.7 kg
[~2017-02-19 11:02] MED LIST changes: +DLR500 PO; -LVQ250 PO; +PRED10TA PO
[2017-02-19] MEDS ORDERED: HYDROmorphone INJ 0.5 MG/0.5 ML SYR IV STA ×2 (12:29→15:39)
[2017-02-19] MEDS ORDERED: ONDANSETRON INJ 2 MG/ML 2 ML VIAL IV STA (12:29)
[2017-02-19] MEDS ORDERED: SODIUM CHLORIDE 0.9% 250ML 250 ML IV STA (12:29)
[2017-02-19 12:50] LABS: BASO % 0.1 %; BASO ABS # 0.01 K/uL (0-0.2); COMPLETE YES; EOS % 3.9 %; IG% 0.4 %; LYMPH % 12.7 %; LYMPH ABS # 1.42 K/uL (1.2-3.4); MEAN CELL VOLUME 98.7 fL (80-100); MEAN CORPUSCULAR HEMOGLOBIN 30.3 pg (25-34); MEAN CORPUSCULAR HGB CONC 30.7 g/dl (32-36); MEAN PLATELET VOLUME 10.2 fL (7.4-10.4); MONO % 10.1 %; NEUT % 72.8 %; PLATELET COUNT 153 K/uL (130-400); RED BLOOD COUNT 3.04 M/uL (4.2-5.4); WHITE BLOOD COUNT 11.17 K/uL (4.8-10.8)
[2017-02-19 13:12] LABS: ALKALINE PHOSPHATASE 64 U/L (45-117); ALT/SGPT 18 U/L (12-78); AST/SGOT 14 U/L (15-37); BLOOD UREA NITROGEN 55 mg/dl (7-18); BUN/CREATININE RATIO 32.4 (10-20); CALCIUM 9.2 mg/dl (8.5-10.1); CARBON DIOXIDE 40 mmol/L (21-32); CHLORIDE 96 mmol/L (98-107); GLUCOSE 121 mg/dl (70-99); SODIUM 139 mmol/L (136-145)
--- NOTE | 2017-02-19 13:17 | DIAGNOSTIC IMAGING REPORT ---
CHEST ONE VIEW PORTABLE HISTORY: right flank pain COMPARISON: Chest 02/11/2017. FINDINGS: Linear density at the left lung base favor scarring or atelectasis. This remains unchanged. The heart remains mildly enlarged. No pleural effusions. No pneumothorax. Diffusely elevated interstitium without focal consolidation to suggest pneumonia. This is likely chronic. No evidence for pulmonary edema. Right shoulder prosthesis. Vertebroplasty again noted within the mid thoracic spine. IMPRESSION: No significant change compared to the prior study. No acute process. Stable cardiomegaly. Electronically signed by: Henry Bourne M.D. 02/19/2017 1:15 PM Dictated Date/Time: 02/19/2017 1:14 PM
--- NOTE | 2017-02-19 13:42 | DIAGNOSTIC IMAGING REPORT ---
PELVIS 1 OR 2 VIEW ROUTINE CLINICAL HISTORY: r hip pain pain COMPARISON: None. DISCUSSION: Total right hip prosthetic. Good contact between prosthetic and underlying bone. Longstem femoral prosthetic in gaining good contact with underlying bone. Moderate heterotopic bone formation from a lesser trochanter. No evidence for acute bony pathology. There is no evidence for soft tissue swelling. IMPRESSION: No acute process status post total right hip arthroplasty The above report was generated using voice recognition software. It may contain grammatical, syntax or spelling errors. Electronically signed by: Jerad Patel M.D. 02/19/2017 1:41 PM Dictated Date/Time: 02/19/2017 1:39 PM
--- NOTE | 2017-02-19 13:43 | DIAGNOSTIC IMAGING REPORT ---
RIGHT FEMUR 2 VIEWS ROUTINE CLINICAL HISTORY: right hip pain Right pain COMPARISON: None. DISCUSSION: Total right hip prosthetic in good position. Good contact between prosthetic and underlying bone. Moderate degenerative change of all major joint compartments of the knee. There is no evidence for soft tissue swelling. IMPRESSION: Degenerative and postoperative change. No acute process. The above report was generated using voice recognition software. It may contain grammatical, syntax or spelling errors. Electronically signed by: Jerad Patel M.D. 02/19/2017 1:42 PM Dictated Date/Time: 02/19/2017 1:41 PM
[2017-02-19] MEDS ORDERED: OPTIRAY 320 IV PRN (16:00)
--- NOTE | 2017-02-19 16:37 | DIAGNOSTIC IMAGING REPORT ---
RIGHT HIP CT CT DOSE: 3156.56 mGy.cm HISTORY: Right hip pain. r prox fem Right TECHNIQUE: Multiaxial CT images of the right hip were performed and reformatted in the sagittal and coronal plane without the use of contrast. A dose lowering technique was utilized adhering to the principles of ALARA. COMPARISON: Right femur 02/19/2017. FINDINGS: There is again noted a right total hip arthroplasty. There is a cerclage wire within the proximal right femur. The hardware appears intact. The metallic artifact results in suboptimal evaluation of the adjacent bone within the right hip. However, there is no definite fracture or dislocation identified. Mild heterotopic ossification within the right hip. Linear density within the subcutaneous fat of the right lateral hip favors postoperative scarring. No fluid collections seen within the right hip. IMPRESSION: Right total hip arthroplasty. No fracture or dislocation within the right hip. Electronically signed by: Henry Bourne M.D. 02/19/2017 4:36 PM Dictated Date/Time: 02/19/2017 4:31 PM
--- NOTE | 2017-02-19 16:48 | DIAGNOSTIC IMAGING REPORT ---
ABDOMEN AND PELVIS CT WITH IV CONTRAST CT DOSE: HISTORY: Right flank pain. TECHNIQUE: Multiaxial CT images of the abdomen and pelvis were performed following the use of intravenous contrast. A dose lowering technique was utilized adhering to the principles of ALARA. COMPARISON STUDY: Abdomen and pelvis CT 05/26/2013. FINDINGS: Bibasilar linear densities. This favors subsegmental atelectasis. Right total hip arthroplasty. Old, healed right-sided rib fractures. Minimal old superior endplate compression deformity at T11.. Cholecystectomy. No hepatic or splenic masses. The liver remains mildly enlarged. Stable adrenal gland nodules. The pancreas enhances normally. No retroperitoneal lymphadenopathy. Bilateral renal hypodense lesions. Dominant lesion within the lower pole the right kidney measures 3.9 cm. This is consistent with a cyst. No ureteral stones. Normal bladder. The uterus and bilateral adnexa are unremarkable. Colonic diverticulosis. No bowel wall thickening. A few prominent gas-filled loops of small bowel within the midabdomen. No definite transition point to suggest an obstruction. These small bowel loops measure up to The appendix is not identified and is likely surgically absent. IMPRESSION: 1. A few mildly dilated gas-filled loops of small bowel within the midabdomen. No definite transition point to suggest an obstruction. The distal small bowel is decompressed. This favors an ileus. However, a low-grade partial small bowel obstruction cannot be entirely excluded. Clinical relation recommended. 2. No renal or ureteral stones. No hydronephrosis. 3. Additional findings as described above. Electronically signed by: Henry Bourne M.D. 02/19/2017 4:47 PM Dictated Date/Time: 02/19/2017 4:36 PM
[2017-02-19] MEDS ORDERED: ACETAMINOPHEN 325 MG TAB PO PRN (17:45)
[2017-02-19] MEDS ORDERED: ONDANSETRON INJ 2 MG/ML 2 ML VIAL IV PRN (17:45)
[2017-02-19] MEDS ORDERED: IPRATROPIUM BROMIDE/ALBUTEROL respimat INH INH PRN (18:15)
[2017-02-19] MEDS ORDERED: METOLAZONE 2.5 MG TAB PO SCH (18:15)
[2017-02-19] MEDS ORDERED: OXYCODONE HCL IR 5 MG TAB (IMMEDIATE RELEASE) PO PRN (18:15)
[2017-02-19] MEDS ORDERED: ALBUTEROL 0.083% NEBU SOLN 3 ML VIAL INH PRN (18:15)
[2017-02-19] MEDS ORDERED: ZRX25 PO (18:21)
[2017-02-19] MEDS ORDERED: SERT25TA PO (18:21)
[2017-02-19] MEDS ORDERED: CHOL1000 PO (18:21)
[2017-02-19] MEDS ORDERED: IRON1CAP2 PO (18:21)
[2017-02-19] MEDS ORDERED: METOPROLOL SUCC 50MG EXT REL TAB PO ONE (18:30)
--- NOTE | 2017-02-19 18:55 | EMERGENCY ROOM VISIT NOTE ---
History Report prepared by Warren: Clifton Junior Under the Supervision of: Jose Enrique AyersO. First contact with patient: 11:55 Chief Complaint: HIP PAIN Stated Complaint: R-HIP PAIN History of Present Illness The patient is a 66 year old female who presents to the Emergency Room with complaints of right lower back/hip pain that began yesterday. She rates her pain a 10/10 in severity. Her pain is radiating into her right hip. Her pain also worsens with movement and sometimes with breathing. She has a history of a right hip replacement and right femur fracture. She has a history of CHF and wears 3L of oxygen at all times. Pt denies any falls, loss of consciousness, headache, change in vision, fevers, chest pain, shortness of breath, nausea, vomiting, diarrhea, pain with urination, and melena. Last bowel movement was this morning and was tiny. She also complains of severe pain in her right flank. Source of History: patient Onset: yesterday Position: back (lower) Symptom Intensity: 10/10 Quality: sharp Timing: constant Modifying Factors (Worsening): breathing, movement Associated Symptoms: No LOC, No fevers, No chest pain, No SOB, No nausea, No vomiting, No melena, No diarrhea Review of Systems See HPI for pertinent positives & negatives. A total of 10 systems reviewed and were otherwise negative. Past Medical & Surgical Medical Problems: (1) Abdominal pain (2) Asthma (3) CHF (congestive heart failure) (4) Chronic respiratory failure (5) CKD (chronic kidney disease), stage IV (6) COPD (chronic obstructive pulmonary disease) (7) Depression (8) Dyslipidemia (9) GERD (gastroesophageal reflux disease) (10) HTN (hypertension) (11) EVONNE (iron deficiency anemia) (12) Lumbar spinal stenosis (13) Morbid obesity (14) Myocardial infarction (15) Obesity hypoventilation syndrome (16) Paroxysmal a-fib (17) Respiratory failure, [id number] (18) Right hip pain Surgical Problems: (1) History of appendectomy (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 (4) Hx of cholecystectomy (5) S/P cervical spinal fusion (6) S/P wrist surgery Family History Diabetes mellitus MOTHER FH: CAD (coronary artery disease) MOTHER SISTER Social History Smoking Status: Former Smoker Alcohol Use: none Drug Use: none Marital Status: single Housing Status: lives with family Occupation Status: retired Current/Historical Medications Scheduled Allopurinol (Zyloprim), 300 MG PO DAILY Aspirin (Aspirin Ec), 81 MG PO DAILY Atorvastatin (Lipitor), 20 MG PO DAILY Bumetanide (Bumetanide), 1 MG PO BID Cholecalciferol (Vitamin D3), 2,000 UNIT PO DAILY Ferrous Sulfate (Kp Ferrous Sulfate), 1 TAB PO DAILY Fluticasone Prop/Salmeterol (Advair Diskus 500/50 60 Dose), 1 PUFFS INH BID Gabapentin (Neurontin), 300 MG PO TID Lactobacillus Acidophilus (Lactinex), 1 TAB PO TID Levothyroxine Sodium (Synthroid), 88 MCG PO DAILY Losartan Potassium (Losartan Potassium), 50 MG PO QAM Metolazone (Metolazone), 2.5 MG PO UD Metoprolol Succinate (Toprol Xl), 50 MG PO DAILY Multivitamins/Minerals (Certavite/Antioxidants), 1 TAB PO DAILY Potassium Ext Rel (Klor-Con), 20 MEQ PO Q2D Prednisone (Prednisone), 40 MG PO UD Propafenone Hcl (Propafenone Hcl), 150 MG PO TID Ranitidine (Zantac), 150 MG PO BID Roflumilast (Daliresp), 500 MCG PO DAILY Sertraline (Zoloft), 25 MG PO DAILY Scheduled PRN Acetaminophen (Tylenol), 650 MG PO Q4H PRN for Pain or Fever Albuterol Sulf (Proventil 0.083% 2.5MG/3ML), 2.5 MG INH QID PRN for SOB/Wheezing Ipratropium-Albuterol (Combivent Respimat), 1 PUFFS INH QID PRN for sob/wheezing Miscellaneous Medications Iron Combinations (Iron Complex), Unknown Dose PO Allergies Coded Allergies: Adhesives (Verified Allergy, Severe, RED RASH, 02/19/17) Latex1 -Allergic Contact Dermititis (Verified Adverse Reaction, Mild, TAPE -SORE, 02/19/17) Morphine (Verified Adverse Reaction, Mild, DELUSIONS, 02/19/17) Physical Exam Vital Signs Date Time Temp Pulse Resp B/P (MAP) Pulse Ox O2 Delivery O2 Flow Rate FiO2 02/19/17 18:41 83 18 92/70 100 Nasal Cannula 2.0 02/19/17 18:01 95 18 127/67 98 Nasal Cannula 2.0 02/19/17 16:42 86 20 123/51 95 Nasal Cannula 3.5 02/19/17 15:33 80 18 112/54 98 Nasal Cannula 2.0 02/19/17 14:21 82 14 99/44 97 Nasal Cannula 2.0 02/19/17 12:37 74 24 123/60 100 Nasal Cannula 2.0 02/19/17 11:14 75 02/19/17 11:09 36.8 81 20 131/66 95 Nasal Cannula 2.0 Physical Exam GENERAL: Morbidly obese female, ill appearing, on nasal canula, in moderate distress. EYE EXAM: normal conjunctiva OROPHARYNX: no exudate, no erythema, lips, buccal mucosa, and tongue normal and mucous membranes are moist NECK: supple, no nuchal rigidity, no adenopathy, non-tender LUNGS: Faint wheezing bilaterally. normal chest wall mechanics. HEART: Distant, no murmurs, S1 normal and S2 normal ABDOMEN: abdomen soft, severe right flank pain to palpation tracking from the right lower thoracic/upper lumbar region to the right mid abdomen, normo-active bowel sounds, no masses. PELVIS: Stable to compression anteriorly and posteriorly with acute tenderness over the right iliac wing, hip, and femur. BACK: Back is symmetrical on inspection and there is no deformity, no midline tenderness, no CVA tenderness. SKIN: no rashes and no bruising UPPER EXTREMITIES: upper extremities are grossly normal. LOWER EXTREMITIES: Flexion of right hip with moderate pain. No pain with movement of the right knee or ankle. Gross sensation intact bilaterally. DP's 2/ 4. NEURO EXAM: Normal sensorium, cranial nerves II-XII grossly intact, normal speech, no gross weakness of arms. Medical Decision & Procedures ER Provider Diagnostic Interpretation: Radiology results as stated below per my review and the radiologist's interpretation: PELVIS 1 OR 2 VIEW ROUTINE CLINICAL HISTORY: r hip pain pain COMPARISON: None. DISCUSSION: Total right hip prosthetic. Good contact between prosthetic and underlying bone. Longstem femoral prosthetic in gaining good contact with underlying bone. Moderate heterotopic bone formation from a lesser trochanter. No evidence for acute bony pathology. There is no evidence for soft tissue swelling. IMPRESSION: No acute process status post total right hip arthroplasty The above report was generated using voice recognition software. It may contain grammatical, syntax or spelling errors. Electronically signed by: Jerad Patel M.D. 02/19/2017 1:41 PM Dictated Date/Time: 02/19/2017 1:39 PM RIGHT FEMUR 2 VIEWS ROUTINE CLINICAL HISTORY: right hip pain Right pain COMPARISON: None. DISCUSSION: Total right hip prosthetic in good position. Good contact between prosthetic and underlying bone. Moderate degenerative change of all major joint compartments of the knee. There is no evidence for soft tissue swelling. IMPRESSION: Degenerative and postoperative change. No acute process. The above report was generated using voice recognition software. It may contain grammatical, syntax or spelling errors. Electronically signed by: Jerad Patel M.D. 02/19/2017 1:42 PM Dictated Date/Time: 02/19/2017 1:41 PM CHEST ONE VIEW PORTABLE HISTORY: right flank pain COMPARISON: Chest 02/11/2017. FINDINGS: Linear density at the left lung base favor scarring or atelectasis. This remains unchanged. The heart remains mildly enlarged. No pleural effusions. No pneumothorax. Diffusely elevated interstitium without focal consolidation to suggest pneumonia. This is likely chronic. No evidence for pulmonary edema. Right shoulder prosthesis. Vertebroplasty again noted within the mid thoracic spine. IMPRESSION: No significant change compared to the prior study. No acute process. Stable cardiomegaly. Electronically signed by: Henry Bourne M.D. 02/19/2017 1:15 PM Dictated Date/Time: 02/19/2017 1:[address] DOSE: 3156.56 mGy.cm HISTORY: Right hip pain. r prox fem Right TECHNIQUE: Multiaxial CT images of the right hip were performed and reformatted in the sagittal and coronal plane without the use of contrast. A dose lowering technique was utilized adhering to the principles of ALARA. COMPARISON: Right femur 02/19/2017. FINDINGS: There is again noted a right total hip arthroplasty. There is a cerclage wire within the proximal right femur. The hardware appears intact. The metallic artifact results in suboptimal evaluation of the adjacent bone within the right hip. However, there is no definite fracture or dislocation identified. Mild heterotopic ossification within the right hip. Linear density within the subcutaneous fat of the right lateral hip favors postoperative scarring. No fluid collections seen within the right hip. IMPRESSION: Right total hip arthroplasty. No fracture or dislocation within the right hip. Electronically signed by: Henry Bourne M.D. 02/19/2017 4:36 PM Dictated Date/Time: 02/19/2017 4:31 PM ABDOMEN AND PELVIS CT WITH IV CONTRAST CT DOSE: HISTORY: Right flank pain. TECHNIQUE: Multiaxial CT images of the abdomen and pelvis were performed following the use of intravenous contrast. A dose lowering technique was utilized adhering to the principles of ALARA. COMPARISON STUDY: Abdomen and pelvis CT 05/26/2013. FINDINGS: Bibasilar linear densities. This favors subsegmental atelectasis. Right total hip arthroplasty. Old, healed right-sided rib fractures. Minimal old superior endplate compression deformity at T11.. Cholecystectomy. No hepatic or splenic masses. The liver remains mildly enlarged. Stable adrenal gland nodules. The pancreas enhances normally. No retroperitoneal lymphadenopathy. Bilateral renal hypodense lesions. Dominant lesion within the lower pole the right kidney measures 3.9 cm. This is consistent with a cyst. No ureteral stones. Normal bladder. The uterus and bilateral adnexa are unremarkable. Colonic diverticulosis. No bowel wall thickening. A few prominent gas-filled loops of small bowel within the midabdomen. No definite transition point to suggest an obstruction. These small bowel loops measure up to The appendix is not identified and is likely surgically absent. IMPRESSION: 1. A few mildly dilated gas-filled loops of small bowel within the midabdomen. No definite transition point to suggest an obstruction. The distal small bowel is decompressed. This favors an ileus. However, a low-grade partial small bowel obstruction cannot be entirely excluded. Clinical relation recommended. 2. No renal or ureteral stones. No hydronephrosis. 3. Additional findings as described above. Electronically signed by: Henry Bourne M.D. 02/19/2017 4:47 PM Dictated Date/Time: 02/19/2017 4:36 PM Laboratory Results 02/19/17 12:03 Red Blood Count 3.04, Mean Corpuscular Volume 98.7, Mean Corpuscular Hemoglobin 30.3, Mean Corpuscular Hemoglobin Concent 30.7, Mean Platelet Volume 10.2, Neutrophils (%) (Auto) 72.8, Lymphocytes (%) (Auto) 12.7, Monocytes (%) (Auto) 10.1, Eosinophils (%) (Auto) 3.9, Basophils (%) (Auto) 0.1, Neutrophils # (Auto ) 8.13, Lymphocytes # (Auto) 1.42, Monocytes # (Auto) 1.13, Eosinophils # (Auto ) 0.44, Basophils # (Auto) 0.01 02/19/17 12:03 Test 02/19/17 12:03 02/19/17 14:41 White Blood Count 11.17 K/uL (4.8-10.8) Red Blood Count 3.04 M/uL (4.2-5.4) Hemoglobin 9.2 g/dL (12.0-16.0) Hematocrit 30.0 % (37-47) Mean Corpuscular Volume 98.7 fL (80-100) Mean Corpuscular Hemoglobin 30.3 pg (25-34) Mean Corpuscular Hemoglobin Concent 30.7 g/dl (32-36) Platelet Count 153 K/uL (130-400) Mean Platelet Volume 10.2 fL (7.4-10.4) Neutrophils (%) (Auto) 72.8 % Lymphocytes (%) (Auto) 12.7 % Monocytes (%) (Auto) 10.1 % Eosinophils (%) (Auto) 3.9 % Basophils (%) (Auto) 0.1 % Neutrophils # (Auto) 8.13 K/uL (1.4-6.5) Lymphocytes # (Auto) 1.42 K/uL (1.2-3.4) Monocytes # (Auto) 1.13 K/uL (0.11-0.59) Eosinophils # (Auto) 0.44 K/uL (0-0.5) Basophils # (Auto) 0.01 K/uL (0-0.2) RDW Standard Deviation 58.0 fL (36.4-46.3) RDW Coefficient of Variation 16.2 % (11.5-14.5) Immature Granulocyte % (Auto) 0.4 % Immature Granulocyte # (Auto) 0.04 K/uL (0.00-0.02) Anion Gap 3.0 mmol/L (3-11) Est Creatinine Clear Calc Drug Dose 40.8 ml/min Estimated GFR () 35.3 Estimated GFR (Non- 30.5 BUN/Creatinine Ratio 32.4 (10-20) Calcium Level 9.2 mg/dl (8.5-10.1) Total Bilirubin 0.5 mg/dl (0.2-1) Direct Bilirubin mg/dl (0-0.2) Aspartate Amino Transf (AST/SGOT) 14 U/L (15-37) Alanine Aminotransferase (ALT/SGPT) 18 U/L (12-78) Alkaline Phosphatase 64 U/L (45-117) Total Protein 6.7 gm/dl (6.4-8.2) Albumin 2.9 gm/dl (3.4-5.0) Lipase 105 U/L (73-393) D-Dimer 290 ug/L FEU (0-500) Laboratory results per my review. Medications Administered Medications (Trade) Dose Ordered Sig/Rupinder Route Start Time Stop Time Status Last Admin Dose Admin Sodium Chloride 250 ml @ 999 mls/hr Q16M STAT IV 02/19/17 12:29 02/19/17 12:44 DC 02/19/17 12:38 999 MLS/HR Hydromorphone HCl (Dilaudid Inj) 0.5 mg NOW STAT IV 02/19/17 12:29 02/19/17 12:31 DC 02/19/17 12:38 0.5 MG Ondansetron HCl (Zofran Inj) 4 mg NOW STAT IV 02/19/17 12:29 02/19/17 12:31 DC 02/19/17 12:38 4 MG Hydromorphone HCl (Dilaudid Inj) 0.5 mg NOW STAT IV 02/19/17 15:39 02/19/17 15:40 DC 02/19/17 15:44 0.5 MG ECG Indication: abdominal pain Rate (beats per minute): 78 Rhythm: sinus rhythm Findings: no ectopy, other (Normal axis) ED Course ED COURSE: Vital signs were reviewed and showed nothing abnormal. The patients medical record was reviewed The above diagnostic studies were performed and reviewed. ED treatments and interventions as stated above. 1155: The patient was evaluated in room B8. A complete history and physical examination was performed. 1229: Ordered Zofran Inj 4 mg IV, Dilaudid Inj 0.5 mg IV, Sodium Chloride 250 ml @ 999 mls/hr IV 1539: Ordered Dilaudid Inj 0.5 mg IV 1702: Upon reevaluation, the patient is resting. I discussed my findings with the patient and she understands and agrees with the treatment plan. Based on the patients age, coexisting illnesses, exam and lab findings the decision to treat as an inpatient was made. The patient remained stable while under my care. The patient will be evaluated by Macrina Becker, for further management. Medical Decision Differential diagnoses includes but is not limited to gastritis, peptic ulcer disease, GERD, gallbladder disease, pancreatitis, small bowel obstruction, acute coronary syndrome, pericarditis, ischemic bowel, irritable bowel disease, irritable bowel syndrome, appendicitis, diverticulitis, malignancy, hernia, urinary tract infection, torsion, perforation, trauma, infectious. Patient is a 66-year-old female who presents the ER for severe right leg pain. She is also complaining of right flank pain as well. This has been present for the past 24 hours. No exacerbating or remitting factors with the exception of palpation and movement. CBC shows a chronic anemia. BMP shows chronic CK deep. LFTs and bilirubin were unremarkable. CT of the abdomen shows a question small bowel obstruction versus ileus. CT and x-rays of the leg and pelvis were unremarkable. Patient was given multiple doses of IV narcotics. With her continued pain she was minutes internal medicine for right hip/flank pain in combination with a possible small bowel structure and although I favor less likely as this is likely consistent with an ileus. Medication Reconcilliation Current Medication List: was personally reviewed by me Blood Pressure Screening Patient's blood pressure: Normal blood pressure Blood pressure disposition: Did not require urgent referral Consults Time Called: 1700 Consulting Physician: Macrina Becker Returned Call: [phone] She will be evaluating the patient for further management and care. Impression Primary Impression: Right hip pain Additional Impressions: SBO (small bowel obstruction) Chronic anemia CKD (chronic kidney disease) Scribe Attestation The scribe's documentation has been prepared under my direction and personally reviewed by me in its entirety. I confirm that the note above accurately reflects all work, treatment, procedures, and medical decision making performed by me. Departure Information Dispostion Being Evaluated By Hospitalist Referrals Babak Melendez M.D. ([facility]) (PCP) Patient Instructions My [facility] Problem Qualifiers Additional Impressions: CKD (chronic kidney disease) Chronic kidney disease stage: unspecified stage Qualified Codes: N18.9 - Chronic kidney disease, unspecified
--- NOTE | 2017-02-19 19:08 | History and Physical ---
History & Physical Date & Time of Service: Feb 19, 2017 at 18:28 Chief Complaint: R-Hip Pain Primary Care Physician: Babak Melendez M.D.(RAMEZ) History of Present Illness Source: patient, clinic records, hospital records This is a 66 y/o female with PMH of chornic hypoxic respiratory failure due to COPD on home O2, morbid obesity, sleep apnea on CPAP, PAF not on anticoagulation , HTN, chronic diastolic CHF, CKD IV, lumbar spinal stenosis, who presents to the ED with right hip pain. Patient reports severe pain from her lower back to right hip down to her right knee. The pain started yesterday. No recent fall/ trauma. The right hip was replaced approx 5 years ago due to fracture does not recall the surgeon's name. She reports insomnia overnight due to severe pain. Tried Tylenol at home without relief. IV Dilaudid in ER helped but still rates pain 9/10. Reports difficulty ambulating due to pain. Uses cane or walker PRN at home. Denies lower extremity weakness or numbness, groin numbness, or bowel or bladder incontinence. Patient denies abdominal pain, however was noted to have RLQ tenderness in ER. No nausea or vomiting. Last BM was formed this morning. Has been belching since then but not passing flatus. Has a large abdominal girth however denies increase from her baseline. She did not eat or take medications today. Has had appendectomy and cholecystectomy. Denies any other abdominal surgeries. Patient was recently admitted February 11- for acute on chronic respiratory failure due to COPD exacerbation . She was discharged on prednisone taper. Her cough is improved- no longer producing sputum. Denies fever, chest pain, SOB, increasing edema, urinary changes. Past Medical/Surgical History Medical Problems: (1) Asthma Status: Chronic (2) CHF (congestive heart failure) Permanent Comment: diastolic Status: Chronic (3) Chronic respiratory failure Status: Chronic (4) CKD (chronic kidney disease), stage IV Status: Chronic (5) COPD (chronic obstructive pulmonary disease) Status: Chronic (6) Depression Status: Chronic (7) Dyslipidemia Status: Chronic (8) GERD (gastroesophageal reflux disease) Status: Chronic (9) HTN (hypertension) Status: Chronic (10) EVONNE (iron deficiency anemia) Status: Chronic (11) Lumbar spinal stenosis Status: Chronic (12) Morbid obesity Status: Chronic (13) Myocardial infarction Permanent Comment: per patient, details unknown Status: Chronic (14) Obesity hypoventilation syndrome Status: Chronic (15) Paroxysmal a-fib Status: Chronic Surgical Problems: (1) History of appendectomy Status: Chronic (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 (3) 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 (4) Hx of cholecystectomy Status: Chronic (5) S/P cervical spinal fusion Status: Chronic (6) S/P wrist surgery Status: Chronic Family History Diabetes mellitus MOTHER FH: CAD (coronary artery disease) MOTHER SISTER Social History Smoking Status: Former Smoker Alcohol Use: none Drug Use: none Marital Status: single Housing status: lives with family (with daughter) Occupational Status: retired Immunizations History of Influenza Vaccine: Yes Influenza Vaccine Date: May 19, 2016 History of Tetanus Vaccine?: Yes Tetanus Immunization Date: Jan 11, 2008 History of Pneumococcal: Yes Pneumococcal Date: May 19, 2016 Multi-Drug 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 Allergies Coded Allergies: Adhesives (Verified Allergy, Severe, RED RASH, 02/19/17) Latex1 -Allergic Contact Dermititis (Verified Adverse Reaction, Mild, TAPE -SORE, 02/19/17) Morphine (Verified Adverse Reaction, Mild, DELUSIONS, 02/19/17) Home Medications Scheduled Allopurinol (Zyloprim), 300 MG PO DAILY Aspirin (Aspirin Ec), 81 MG PO DAILY Atorvastatin (Lipitor), 20 MG PO DAILY Bumetanide (Bumetanide), 1 MG PO BID Cholecalciferol (Vitamin D3), 2,000 UNIT PO DAILY Ferrous Sulfate (Kp Ferrous Sulfate), 1 TAB PO DAILY Fluticasone Prop/Salmeterol (Advair Diskus 500/50 60 Dose), 1 PUFFS INH BID Gabapentin (Neurontin), 300 MG PO TID Lactobacillus Acidophilus (Lactinex), 1 TAB PO TID Levothyroxine Sodium (Synthroid), 88 MCG PO DAILY Losartan Potassium (Losartan Potassium), 50 MG PO QAM Metolazone (Metolazone), 2.5 MG PO UD Metoprolol Succinate (Toprol Xl), 50 MG PO DAILY Multivitamins/Minerals (Certavite/Antioxidants), 1 TAB PO DAILY Potassium Ext Rel (Klor-Con), 20 MEQ PO Q2D Prednisone (Prednisone), 40 MG PO UD Propafenone Hcl (Propafenone Hcl), 150 MG PO TID Ranitidine (Zantac), 150 MG PO BID Roflumilast (Daliresp), 500 MCG PO DAILY Sertraline (Zoloft), 25 MG PO DAILY Scheduled PRN Acetaminophen (Tylenol), 650 MG PO Q4H PRN for Pain or Fever Albuterol Sulf (Proventil 0.083% 2.5MG/3ML), 2.5 MG INH QID PRN for SOB/Wheezing Ipratropium-Albuterol (Combivent Respimat), 1 PUFFS INH QID PRN for sob/wheezing Miscellaneous Medications Iron Combinations (Iron Complex), Unknown Dose PO Review of Systems Ten systems reviewed and negative except as noted in above HPI. Physical Exam Vital Signs Date Time Temp Pulse Resp B/P (MAP) Pulse Ox O2 Delivery O2 Flow Rate FiO2 02/19/17 18:01 95 18 127/67 98 Nasal Cannula 2.0 02/19/17 16:42 86 20 123/51 95 Nasal Cannula 3.5 02/19/17 15:33 80 18 112/54 98 Nasal Cannula 2.0 02/19/17 14:21 82 14 99/44 97 Nasal Cannula 2.0 02/19/17 12:37 74 24 123/60 100 Nasal Cannula 2.0 02/19/17 11:14 75 02/19/17 11:09 36.8 81 20 131/66 95 Nasal Cannula 2.0 General Appearance: WD/WN, + obese (morbidly obese), + pertinent finding (no distress while lying in bed, but significant pain upon examination/ ROM of the right hip) Head: normocephalic, atraumatic Eyes: normal inspection, PERRL, EOMI ENT: hearing grossly normal, pharynx normal Neck: supple, trachea midline Respiratory/Chest: lungs clear (in anterior lung valdez), normal breath sounds , no respiratory distress, no accessory muscle use Cardiovascular: regular rate, rhythm, no murmur Abdomen/GI: soft, + abnormal bowel sounds (hyperactive bowel sounds), + pertinent finding (RLQ tender to palpation. no rebound tenderness. large abdominal girth- chronic per patient) Back: + pertinent finding (back not examined- patient unable to roll without severe pain) Extremities/Musculoskelatal: no calf tenderness, no pedal edema, + pertinent finding (Right hip tender to palpation laterally. scar noted lateral hip without any erythema. severe pain with ROM right hip. ) Neurologic/Psych: alert, normal mood/affect, oriented x 3 Skin: normal color, warm/dry Diagnostics Laboratory Results Results Past 24 Hours Test 02/19/17 12:03 02/19/17 14:41 Range/Units White Blood Count 11.17 4.8-10.8 K/uL Red Blood Count 3.04 4.2-5.4 M/uL Hemoglobin 9.2 12.0-16.0 g/dL Hematocrit 30.0 37-47 % Mean Corpuscular Volume 98.7 80-100 fL Mean Corpuscular Hemoglobin 30.3 25-34 pg Mean Corpuscular Hemoglobin Concent 30.7 32-36 g/dl Platelet Count 153 130-400 K/uL Mean Platelet Volume 10.2 7.4-10.4 fL Neutrophils (%) (Auto) 72.8 % Lymphocytes (%) (Auto) 12.7 % Monocytes (%) (Auto) 10.1 % Eosinophils (%) (Auto) 3.9 % Basophils (%) (Auto) 0.1 % Neutrophils # (Auto) 8.13 1.4-6.5 K/uL Lymphocytes # (Auto) 1.42 1.2-3.4 K/uL Monocytes # (Auto) 1.13 0.11-0.59 K/uL Eosinophils # (Auto) 0.44 0-0.5 K/uL Basophils # (Auto) 0.01 0-0.2 K/uL RDW Standard Deviation 58.0 36.4-46.3 fL RDW Coefficient of Variation 16.2 11.5-14.5 % Immature Granulocyte % (Auto) 0.4 % Immature Granulocyte # (Auto) 0.04 0.00-0.02 K/uL Sodium Level 139 136-145 mmol/L Potassium Level 4.0 3.5-5.1 mmol/L Chloride Level 96 98-107 mmol/L Carbon Dioxide Level 40 21-32 mmol/L Anion Gap 3.0 3-11 mmol/L Blood Urea Nitrogen 55 7-18 mg/dl Creatinine 1.70 0.60-1.20 mg/dl Est Creatinine Clear Calc Drug Dose 40.8 ml/min Estimated GFR () 35.3 Estimated GFR (Non- 30.5 BUN/Creatinine Ratio 32.4 10-20 Random Glucose 121 70-99 mg/dl Calcium Level 9.2 8.5-10.1 mg/dl Total Bilirubin 0.5 0.2-1 mg/dl Direct Bilirubin 0-0.2 mg/dl Aspartate Amino Transf (AST/SGOT) 14 15-37 U/L Alanine Aminotransferase (ALT/SGPT) 18 12-78 U/L Alkaline Phosphatase 64 45-117 U/L Total Protein 6.7 6.4-8.2 gm/dl Albumin 2.9 3.4-5.0 gm/dl Lipase 105 73-393 U/L D-Dimer 290 0-500 ug/L FEU Diagnostic Radiology PELVIS 1 OR 2 VIEW ROUTINE IMPRESSION: No acute process status post total right hip arthroplasty RIGHT FEMUR 2 VIEWS ROUTINE IMPRESSION: Degenerative and postoperative change. No acute process. CHEST ONE VIEW PORTABLE IMPRESSION: No significant change compared to the prior study. No acute process. Stable cardiomegaly. RIGHT HIP CT IMPRESSION: Right total hip arthroplasty. No fracture or dislocation within the right hip. ABDOMEN AND PELVIS CT WITH IV CONTRAST IMPRESSION: 1. A few mildly dilated gas-filled loops of small bowel within the midabdomen. No definite transition point to suggest an obstruction. The distal small bowel is decompressed. This favors an ileus. However, a low-grade partial small bowel obstruction cannot be entirely excluded. Clinical relation recommended. 2. No renal or ureteral stones. No hydronephrosis. 3. Additional findings as described above. EKG NSR, 78 bpm, incomplete RBBB, nonspecific ST abnormality Impression Assessment and Plan RIGHT HIP PAIN No acute findings on imaging including CT right hip Pain control with scheduled Tylenol and PRN Oxycodone IR PT and OT evaluations POSSIBLE PARTIAL SBO CT a/p shows possible ileus vs. low-grade partial small bowel obstruction cannot be entirely excluded. NPO except essential meds NG tube not indicated due to no nausea/ vomiting General surgery consulted; discussed with Dr. Adkins- patient will be seen tomorrow morning CHRONIC RESPIRATORY FAILURE/ COPD Not in exacerbation Continue steroid taper from recent exacerbation, nebs, and Daliresp Continue supplemental O2 HYPERTENSION Missed all meds today yet still had episode of borderline BP (90's systolic) in ER, had received Dilaudid and a 250 mL IVF bolus approx 2 hours prior Continue metoprolol, hold losartan and diuretics until reassessed in am CHRONIC DIASTOLIC CHF EF 65-70% on 05/2016 echo Compensated Hold diuretics and reassess in am PAROXYSMAL ATRIAL FIBRILLATION In normal sinus rhythm; continue metoprolol succinate and propafenone Not on anticoagulation QUESTIONABLE HX OF CAD Reported hx NE with details unknown on prior admission; however there is no mention of this in outpatient cardiology note 08/2016 Continue her aspirin and statin HYPOTHYROIDISM Continue levothyroxine- converted to IV CKD STAGE IV Creat is stable from baseline 1.5-2 Monitor renal function CHRONIC ANEMIA HG stable from baseline DEPRESSION Continue sertraline SLEEP APNEA Continue CPAP DVT PROPHYLAXIS Heparin SQ CODE STATUS DNR per documentation on recent admissions DISPO Admission to med/ surg Lives with daughter Follows with Dr. Melendez for primary care Patient seen in collaboration with Dr. Ann. Please see her addendum. I have seen and examined the patient and agree with the assessment and plan above. Ms. Lee is in terrible pain on exam which seems to be localized to her R GTB area and R IT band. I did not appreciate RLQ abdominal pain or other abdominal pain at this time. She has had a BM today, has active bowel sounds, and has been tolerating PO without issue today. She denies trauma and all imaging is negative for fracture or acute findings. She denies falls. Constant pain since yesterday--takes tylenol for joint pains at baseline. Admitted for pain control. Initially tried plan above, however, pain was still acute and uncontrolled so changed regimen to scheduled Tylenol and Tramadol with Dilaudid IV for breakthrough. PT/OT to see her in the morning. NPO until evaluated by surgery x meds. ANN, DO Level of Care Med/Surg Resuscitation Status DO NOT RESUSCITATE VTE Prophylaxis VTE Risk Assessment Done? Y/N: Yes Risk Level: Moderate Given or contraindicated: Unfractionated heparin SQ
[2017-02-19 19:34] VITALS: BP 134/58; PULSE 83; TEMP 36.7; O2SAT 95
[2017-02-19] MEDS ORDERED: LEVOTHYROXINE SODIUM INJ 44 MCG in SYRINGE 0 ML IV ONE (20:00)
[2017-02-19] MEDS ORDERED: ASPIRIN 81 MG ECTAB PO ONE (20:00)
[2017-02-19] MEDS ORDERED: SERTRALINE HCL 50 MG TAB PO ONE (20:00)
[2017-02-19] MEDS ORDERED: BUMETANIDE 1 MG TAB PO SCH (21:00)
[2017-02-19 21:03] LABS: URINE APPEARANCE CLEAR (CLEAR); URINE BILIRUBIN NEG (NEG); URINE COLOR YELLOW; URINE EPITHELIAL CELL AUTO >30 /lpf (0-5); URINE NITRITE NEG (NEG); URINE PH 5.5 (4.5-7.5); URINE SPECIFIC GRAVITY 1.045 (1.000-1.030); UROBILINOGEN NEG (NEG); ZZUR CULT IF INDIC CLEAN CATCH YES
[2017-02-19 21:04] LABS: MANUAL MICROSCOPIC REQUIRED? NO; REVIEW REQ? NO
[2017-02-19] MEDS: TRAMADOL HCL 50 MG TAB PO SCH (21:11)
[2017-02-19] MEDS: FLUTICASONE/SALMETEROL (ADVAIR) 500/50 INH 14 PUFF INH SCH (21:12)
[2017-02-19] MEDS: HEPARIN SOD 5000 UNIT/0.5 ML CARP SQ SCH (21:16)
[2017-02-19] MEDS: GABAPENTIN 300 MG CAP PO SCH (21:17)
[2017-02-19] MEDS: PROPAFENONE HCL 150 MG TAB PO SCH (21:17)
[2017-02-19] MEDS: ACETAMINOPHEN 500 MG TAB PO SCH (21:18)
[2017-02-19 21:20] VITALS: BP 134/58; PULSE 83; TEMP 36.7; O2SAT 95; Ht 162.6 cm; Wt 121.7 kg
[2017-02-19 22:06] VITALS: PULSE 92; O2SAT 96
[2017-02-19] MEDS: HYDROmorphone INJ 0.5 MG/0.5 ML SYR IV PRN (23:30)
[2017-02-19 23:37] VITALS: BP 134/65; PULSE 86; TEMP 36.7; O2SAT 91
[2017-02-20] MEDS: TRAMADOL HCL 50 MG TAB PO SCH ×4 (02:37→21:47)
[2017-02-20] MEDS: ACETAMINOPHEN 500 MG TAB PO SCH ×3 (05:51→20:34)
[2017-02-20] MEDS: LEVOTHYROXINE 88 MCG TAB PO SCH (05:51)
[2017-02-20] MEDS: HEPARIN SOD 5000 UNIT/0.5 ML CARP SQ SCH ×3 (05:53→21:44)
[2017-02-20] MEDS ORDERED: LEVOTHYROXINE SODIUM INJ 44 MCG in SYRINGE 0 ML IV SCH (06:00)
[2017-02-20 07:35] VITALS: BP 125/72; PULSE 76; TEMP 36.6; O2SAT 96
[2017-02-20 07:56] LABS: BUN/CREATININE RATIO 31.8 (10-20); CALCIUM 9.2 mg/dl (8.5-10.1); CREATININE 1.3 mg/dl (0.60-1.20); POTASSIUM 4.9 mmol/L (3.5-5.1)
[2017-02-20] MEDS: FLUTICASONE/SALMETEROL (ADVAIR) 500/50 INH 14 PUFF INH SCH ×2 (08:42→20:34)
[2017-02-20] MEDS: ASPIRIN 81 MG ECTAB PO SCH (08:43)
[2017-02-20] MEDS: ROFLUMILAST 500 MCG TAB PO SCH (08:43)
[2017-02-20] MEDS: ATORVASTATIN 20 MG TAB PO SCH (08:44)
[2017-02-20] MEDS: POTASSIUM CHLORIDE 20 MEQ TABCR PO SCH (08:44)
[2017-02-20] MEDS: GABAPENTIN 300 MG CAP PO SCH ×3 (08:45→20:31)
[2017-02-20] MEDS: PROPAFENONE HCL 150 MG TAB PO SCH ×3 (08:45→20:32)
[2017-02-20] MEDS: SERTRALINE HCL 50 MG TAB PO SCH (08:47)
[2017-02-20] MEDS: METOPROLOL SUCC 50MG EXT REL TAB PO SCH (08:48)
[2017-02-20] MEDS ORDERED: LOSARTAN POTASSIUM 50 MG TAB PO SCH (09:00)
[2017-02-20 09:09] LABS: HEMATOCRIT 29.5 % (37-47); MEAN CELL VOLUME 98.7 fL (80-100); MEAN CORPUSCULAR HEMOGLOBIN 29.4 pg (25-34); MEAN CORPUSCULAR HGB CONC 29.8 g/dl (32-36); MEAN PLATELET VOLUME 9.5 fL (7.4-10.4); PLATELET COUNT 168 K/uL (130-400); RED BLOOD COUNT 2.99 M/uL (4.2-5.4); WHITE BLOOD COUNT 12.07 K/uL (4.8-10.8)
--- NOTE | 2017-02-20 09:47 | Pre-Operative Consultation ---
History General Date of Service: Feb 20, 2017. HPI HPI: The patient is a 66 year old female being seen for a CT finding of dilated small bowel. She complains of right back/hip pain. She denies abdominal pain, nausea,vomiting or a change in bowel habits. She is passing gas and BMs. Her pain is radiating into her right hip. Her pain also worsens with movement and sometimes with breathing. She has a history of a right hip replacement and right femur fracture. She has a history of CHF and wears 3L of oxygen at all times. Pt denies any falls, loss of consciousness, headache, change in vision, fevers, chest pain, shortness of breath, nausea, vomiting, diarrhea, pain with urination, and melena. She also complains of severe pain in her right flank. Historian: patient Risk Assessment Daily beta john use?: Yes Beta John Details Indication Beta John use: hypertension Problem List Medical Problems: (1) Acute renal insufficiency Status: Acute (2) Anemia Status: Acute (3) Chronic anemia Status: Acute (4) CKD (chronic kidney disease) Status: Acute (5) COPD exacerbation Status: Acute (6) Dehydration Status: Acute (7) Dyspnea on exertion Status: Acute (8) Generalized weakness Status: Acute (9) Hypercarbia Status: Acute (10) Hypercarbia Status: Acute (11) Hypoxia Status: Acute (12) Hypoxia Status: Acute (13) Leukocytosis Status: Acute (14) Precordial chest pain Status: Acute (15) Respiratory acidosis Status: Acute (16) Respiratory failure Status: Acute (17) Right hip pain Status: Acute (18) SBO (small bowel obstruction) Status: Acute (19) SOB (shortness of breath) Status: Acute Medical & Surgical History Past Medical History: atrial fibrillation, congestive heart failure, COPD, coronary artery disease, depression, high cholesterol, hypertension, hypothyroidism Past Surgical History: appendectomy, cholecystectomy, oophorectomy, spinal surgery Family History Family History: diabetes, heart disease Social History Hx Tobacco Use In Past Year?: No Smoking Status: Former Smoker Alcohol: none Drug Use: none Marital status: single Housing status: lives with family (with daughter) Occupation status: retired Immunizations Have You Had Influenza Vaccine: Yes Date Of Influenza Vaccine: May 19, 2016 Have You Had Tetanus Vaccine: Yes Date Of Tetanus Immunization: Jan 11, 2008 History of Pneumococcal: Yes Date of Pneumococcal Vaccine: May 19, 2016 History of MDRO 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 Allergies Allergies: Coded Allergies: Adhesives (Verified Allergy, Severe, RED RASH, 02/19/17) Latex1 -Allergic Contact Dermititis (Verified Adverse Reaction, Mild, TAPE -SORE, 02/19/17) Morphine (Verified Adverse Reaction, Mild, DELUSIONS, 02/19/17) Medications Current Inpatient Medications Current Inpatient Medications Medications (Trade) Dose Ordered Sig/Rupinder Route Start Time Stop Time Status Last Admin Dose Admin Ioversol (Optiray 320) 100 ml UD PRN IV 02/19/17 16:00 02/23/17 15:59 Heparin Sodium (Porcine) (Heparin Sq 5000 Unit/0.5ml) 5,000 unit Q8 SQ 02/19/17 22:00 03/21/17 21:59 02/20/17 05:53 5,000 UNIT Ondansetron HCl (Zofran Inj) 4 mg Q6H PRN IV 02/19/17 17:45 03/21/17 17:44 Acetaminophen (Tylenol Tab) 1,000 mg Q8 PO 02/19/17 22:00 03/21/17 21:59 02/20/17 05:51 1,000 MG Albuterol Sulfate (Ventolin 0.083% 2.5MG/3ML Neb) 2.5 mg QID PRN INH 02/19/17 18:15 03/21/17 18:14 Aspirin (Ecotrin Tab) 81 mg DAILY PO 02/20/17 09:00 03/22/17 08:59 02/20/17 08:43 81 MG Atorvastatin Calcium (Lipitor Tab) 20 mg DAILY PO 02/20/17 09:00 03/22/17 08:59 02/20/17 08:44 20 MG Salmeterol Xinafoate/ Fluticasone (Advair Diskus 500/50 Inh) 1 puff BID INH 02/19/17 21:00 03/21/17 20:59 02/20/17 08:42 1 PUFF Gabapentin (Neurontin Cap) 300 mg TID PO 02/19/17 21:00 03/21/17 20:59 02/20/17 08:45 300 MG Albuterol/ Ipratropium (Combivent Respimat Inh) 1 puffs QID PRN INH 02/19/17 18:15 03/21/17 18:14 Metoprolol Succinate (Toprol Xl Tab) 50 mg DAILY PO 02/20/17 09:00 03/22/17 08:59 02/20/17 08:48 50 MG Potassium Chloride (Klor-Con Tab) 20 meq Q2D PO 02/20/17 09:00 03/22/17 08:59 02/20/17 08:44 20 MEQ Propafenone HCl (Rythmol Tab) 150 mg TID PO 02/19/17 21:00 03/21/17 20:59 02/20/17 08:45 150 MG Roflumilast (Daliresp Tab) 500 mcg DAILY PO 02/20/17 09:00 03/22/17 08:59 02/20/17 08:43 500 MCG Sertraline HCl (Zoloft Tab) 25 mg DAILY PO 02/20/17 09:00 03/22/17 08:59 02/20/17 08:47 25 MG Prednisone (PredniSONE TAB) 10 mg DAILY PO 02/21/17 09:00 02/22/17 09:01 Prednisone (PredniSONE TAB) 5 mg DAILY PO 02/23/17 09:00 02/24/17 09:01 Tramadol HCl (Ultram Tab) 50 mg Q6H PO 02/19/17 20:45 03/21/17 20:44 02/20/17 08:42 50 MG Hydromorphone HCl (Dilaudid Inj) 0.5 mg Q4H PRN IV 02/19/17 20:45 03/05/17 20:44 02/19/17 23:30 0.5 MG Levothyroxine Sodium (Synthroid Tab) 88 mcg DAILYBB PO 02/20/17 06:00 03/22/17 05:59 02/20/17 05:51 88 MCG Review of Systems Review of Systems Constitutional: denies chills, denies diaphoresis, denies fever, denies weakness Eyes: reports: no symptoms ENT: reports: no symptoms reported Cardiovascular: denies: chest pain, chest tightness, chest pressure, palpitations, syncope Respiratory: reports: short of breath, AHN, denies: cough, stridor, cyanosis Gastrointestinal: denies abdominal pain, denies constipation, denies diarrhea, denies nausea, denies vomiting Genitourinary - Female: reports: no symptoms Musculoskeletal: back pain, joint pain, denies joint swelling, denies muscle stiffness, denies neck pain Integumentary: denies change in hair/nails, denies dryness, denies lumps, denies rash Neurologic: reports: no symptoms Psychiatric: reports: no symptoms Endocrine: no symptoms Hematologic / Lymphatic: no symptoms Allergic / Immunologic: no symptoms Physical Exam Physical Exam General Appearance: + WD/WN, No distress Ears, Nose, Throat: + normal ENT inspection Neck: No abnormal inspection, No tracheal deviation, No lymphadenophy, No stiffness, No tenderness Respiratory: + decreased breath sounds, No chest tenderness, No rhonchi, No stridor, No wheezing Cardiovascular: No tachycardia, No gallop/S3, No diastolic murmur, No gallop/S4 , No bradycardia, No systolic murmur Abdomen: No rebound, No tenderness, No distension, No hernia, No organomegaly, No guarding Extremities: No deformity, No swelling, No calf tenderness, No inflammation Neurologic/Psychiatric: + motor deficit/weakness, No disorientation, No sensory deficit Skin Characteristics: No abnormal color, No diaphoresis, No pallor, No jaundice , No rash Lymphatic: No abnormal adenopathy Diagnostics Labs Labs Results Past 24 Hours Test 02/19/17 12:03 02/19/17 14:41 02/19/17 20:35 02/20/17 07:02 Range/Units White Blood Count 11.17 12.07 4.8-10.8 K/uL Red Blood Count 3.04 2.99 4.2-5.4 M/uL Hemoglobin 9.2 8.8 12.0-16.0 g/dL Hematocrit 30.0 29.5 37-47 % Mean Corpuscular Volume 98.7 98.7 80-100 fL Mean Corpuscular Hemoglobin 30.3 29.4 25-34 pg Mean Corpuscular Hemoglobin Concent 30.7 29.8 32-36 g/dl Platelet Count 153 168 130-400 K/uL Mean Platelet Volume 10.2 9.5 7.4-10.4 fL Neutrophils (%) (Auto) 72.8 % Lymphocytes (%) (Auto) 12.7 % Monocytes (%) (Auto) 10.1 % Eosinophils (%) (Auto) 3.9 % Basophils (%) (Auto) 0.1 % Neutrophils # (Auto) 8.13 1.4-6.5 K/uL Lymphocytes # (Auto) 1.42 1.2-3.4 K/uL Monocytes # (Auto) 1.13 0.11-0.59 K/uL Eosinophils # (Auto) 0.44 0-0.5 K/uL Basophils # (Auto) 0.01 0-0.2 K/uL RDW Standard Deviation 58.0 57.5 36.4-46.3 fL RDW Coefficient of Variation 16.2 15.9 11.5-14.5 % Immature Granulocyte % (Auto) 0.4 % Immature Granulocyte # (Auto) 0.04 0.00-0.02 K/uL Sodium Level 139 140 136-145 mmol/L Potassium Level 4.0 4.9 3.5-5.1 mmol/L Chloride Level 96 98 98-107 mmol/L Carbon Dioxide Level 40 39 21-32 mmol/L Anion Gap 3.0 3.0 3-11 mmol/L Blood Urea Nitrogen 55 41 7-18 mg/dl Creatinine 1.70 1.30 0.60-1.20 mg/dl Est Creatinine Clear Calc Drug Dose 40.8 53.3 ml/min Estimated GFR () 35.3 48.8 Estimated GFR (Non- 30.5 42.1 BUN/Creatinine Ratio 32.4 31.8 10-20 Random Glucose 121 122 70-99 mg/dl Calcium Level 9.2 9.2 8.5-10.1 mg/dl Total Bilirubin 0.5 0.2-1 mg/dl Direct Bilirubin 0-0.2 mg/dl Aspartate Amino Transf (AST/SGOT) 14 15-37 U/L Alanine Aminotransferase (ALT/SGPT) 18 12-78 U/L Alkaline Phosphatase 64 45-117 U/L Total Protein 6.7 6.4-8.2 gm/dl Albumin 2.9 3.4-5.0 gm/dl Lipase 105 73-393 U/L D-Dimer 290 0-500 ug/L FEU Urine Color YELLOW Urine Appearance CLEAR CLEAR Urine pH 5.5 4.5-7.5 Urine Specific [place] 1.045 1.000-1.030 Urine Protein NEG NEG Urine Glucose (UA) NEG NEG Urine Ketones NEG NEG Urine Occult Blood TRACE NEG Urine Nitrite NEG NEG Urine Bilirubin NEG NEG Urine Urobilinogen NEG NEG Urine Leukocyte Esterase NEG NEG Urine WBC (Auto) 1-5 0-5 /hpf Urine RBC (Auto) 0-4 0-4 /hpf Urine Hyaline Casts (Auto) 0 0-5 /lpf Urine Epithelial Cells (Auto) >30 0-5 /lpf Urine Bacteria (Auto) 1+ NEG Microbiology Results 02/19/17 Urine Culture, Received Pending Diagnostic Radiology Diagnostic Radiology ABDOMEN AND PELVIS CT WITH IV CONTRAST CT DOSE: HISTORY: Right flank pain. TECHNIQUE: Multiaxial CT images of the abdomen and pelvis were performed following the use of intravenous contrast. A dose lowering technique was utilized adhering to the principles of ALARA. COMPARISON STUDY: Abdomen and pelvis CT 05/26/2013. FINDINGS: Bibasilar linear densities. This favors subsegmental atelectasis. Right total hip arthroplasty. Old, healed right-sided rib fractures. Minimal old superior endplate compression deformity at T11.. Cholecystectomy. No hepatic or splenic masses. The liver remains mildly enlarged. Stable adrenal gland nodules. The pancreas enhances normally. No retroperitoneal lymphadenopathy. Bilateral renal hypodense lesions. Dominant lesion within the lower pole the right kidney measures 3.9 cm. This is consistent with a cyst. No ureteral stones. Normal bladder. The uterus and bilateral adnexa are unremarkable. Colonic diverticulosis. No bowel wall thickening. A few prominent gas-filled loops of small bowel within the midabdomen. No definite transition point to suggest an obstruction. These small bowel loops measure up to The appendix is not identified and is likely surgically absent. IMPRESSION: 1. A few mildly dilated gas-filled loops of small bowel within the midabdomen. No definite transition point to suggest an obstruction. The distal small bowel is decompressed. This favors an ileus. However, a low-grade partial small bowel obstruction cannot be entirely excluded. Clinical relation recommended. 2. No renal or ureteral stones. No hydronephrosis. 3. Additional findings as described above. Impression Assessment and Plan Assessment and Plan Clinically does not have either partial SBO or ileus -begin diet -advance as tolerated -will sign off Advanced Directives Living Will: none
[2017-02-20 15:02] VITALS: BP 92/60; PULSE 71; TEMP 36.8; O2SAT 97
[2017-02-20 15:07] VITALS: BP 118/70; PULSE 76; O2SAT 96
[2017-02-20 16:30] VITALS: O2SAT 96
[2017-02-20] MEDS ORDERED: BUMETANIDE 1 MG TAB PO ONE (17:30)
--- NOTE | 2017-02-20 17:36 | Progress Note ---
Medicine Progress Note Date & Time of Visit: Feb 20, 2017 at 13:31. Subjective interested in advancing her diet denies abdominal pain reports one BM today denies cP or SOB or cough pain in lateral R hip area improved today on pain meds, she tolerated PT Objective Last 8 Hrs Date Time Temp Pulse Resp B/P (MAP) Pulse Ox O2 Delivery O2 Flow Rate FiO2 02/20/17 07:50 Room Air 02/20/17 07:35 36.6 76 17 125/72 (89) 96 Nasal Cannula 2.0 Physical Exam: GEN: morbid obesity, in no acute distress, alert and appropriate HEENT: NC/AT, normal sclerae, MMM CARDIO: reg rate, S1/2 heard without m/g/r LUNGS: Crackles throughout R lung, CTA on left, no wheezing or rales heard. ABD: soft, non-tender, non-distended, no rebound or guarding, +BS EXTREMITY: RP and DP palpable 2+ bilat, no LE swelling or edema, extremities are warm and well-perfused R HIP: TTP on lateral R hip over GTB/IT band area. NEURO: CN 2-12 grossly intact, no gross focal deficits. MUSC: moves all extremities equally SKIN: warm and dry Laboratory Results: 02/20/17 07:02 02/20/17 07:02 Test 02/19/17 12:03 02/19/17 14:41 02/19/17 20:35 02/20/17 07:02 Immature Granulocyte % (Auto) 0.4 % White Blood Count 11.17 K/uL (4.8-10.8) Red Blood Count 3.04 M/uL (4.2-5.4) 2.99 M/uL (4.2-5.4) Hemoglobin 9.2 g/dL (12.0-16.0) Hematocrit 30.0 % (37-47) Mean Corpuscular Volume 98.7 fL (80-100) 98.7 fL (80-100) Mean Corpuscular Hemoglobin 30.3 pg (25-34) 29.4 pg (25-34) Mean Corpuscular Hemoglobin Concent 30.7 g/dl (32-36) 29.8 g/dl (32-36) Platelet Count 153 K/uL (130-400) Mean Platelet Volume 10.2 fL (7.4-10.4) 9.5 fL (7.4-10.4) Neutrophils (%) (Auto) 72.8 % Lymphocytes (%) (Auto) 12.7 % Monocytes (%) (Auto) 10.1 % Eosinophils (%) (Auto) 3.9 % Basophils (%) (Auto) 0.1 % Neutrophils # (Auto) 8.13 K/uL (1.4-6.5) Lymphocytes # (Auto) 1.42 K/uL (1.2-3.4) Monocytes # (Auto) 1.13 K/uL (0.11-0.59) Eosinophils # (Auto) 0.44 K/uL (0-0.5) Basophils # (Auto) 0.01 K/uL (0-0.2) Immature Granulocyte # (Auto) 0.04 K/uL (0.00-0.02) Total Bilirubin 0.5 mg/dl (0.2-1) Direct Bilirubin mg/dl (0-0.2) Aspartate Amino Transf (AST/SGOT) 14 U/L (15-37) Alanine Aminotransferase (ALT/SGPT) 18 U/L (12-78) Alkaline Phosphatase 64 U/L (45-117) Total Protein 6.7 gm/dl (6.4-8.2) Albumin 2.9 gm/dl (3.4-5.0) Lipase 105 U/L (73-393) D-Dimer 290 ug/L FEU (0-500) Urine Color YELLOW Urine Appearance CLEAR (CLEAR) Urine pH 5.5 (4.5-7.5) Urine Specific [place] 1.045 (1.000-1.030) Urine Protein NEG (NEG) Urine Glucose (UA) NEG (NEG) Urine Ketones NEG (NEG) Urine Occult Blood TRACE (NEG) Urine Nitrite NEG (NEG) Urine Bilirubin NEG (NEG) Urine Urobilinogen NEG (NEG) Urine Leukocyte Esterase NEG (NEG) Urine WBC (Auto) 1-5 /hpf (0-5) Urine RBC (Auto) 0-4 /hpf (0-4) Urine Hyaline Casts (Auto) 0 /lpf (0-5) Urine Epithelial Cells (Auto) >30 /lpf (0-5) Urine Bacteria (Auto) 1+ (NEG) RDW Standard Deviation 57.5 fL (36.4-46.3) RDW Coefficient of Variation 15.9 % (11.5-14.5) Anion Gap 3.0 mmol/L (3-11) Est Creatinine Clear Calc Drug Dose 53.3 ml/min Estimated GFR () 48.8 Estimated GFR (Non- 42.1 BUN/Creatinine Ratio 31.8 (10-20) Calcium Level 9.2 mg/dl (8.5-10.1) Date/Time Source Procedure Growth Status 02/19/17 20:35 Urine , Clean Catch Urine Culture - Preliminary PIN-POINT GROWTH PRESENT, REINCUBATING. Resulted Last 24 Hours Test 02/19/17 14:41 02/19/17 20:35 02/20/17 07:02 D-Dimer 290 ug/L FEU Urine Color YELLOW Urine Appearance CLEAR Urine pH 5.5 Urine Specific [place] 1.045 Urine Protein NEG Urine Glucose (UA) NEG Urine Ketones NEG Urine Occult Blood TRACE Urine Nitrite NEG Urine Bilirubin NEG Urine Urobilinogen NEG Urine Leukocyte Esterase NEG Urine WBC (Auto) 1-5 /hpf Urine RBC (Auto) 0-4 /hpf Urine Hyaline Casts (Auto) 0 /lpf Urine Epithelial Cells (Auto) >30 /lpf Urine Bacteria (Auto) 1+ White Blood Count 12.07 K/uL Red Blood Count 2.99 M/uL Hemoglobin 8.8 g/dL Hematocrit 29.5 % Mean Corpuscular Volume 98.7 fL Mean Corpuscular Hemoglobin 29.4 pg Mean Corpuscular Hemoglobin Concent 29.8 g/dl RDW Standard Deviation 57.5 fL RDW Coefficient of Variation 15.9 % Platelet Count 168 K/uL Mean Platelet Volume 9.5 fL Sodium Level 140 mmol/L Potassium Level 4.9 mmol/L Chloride Level 98 mmol/L Carbon Dioxide Level 39 mmol/L Anion Gap 3.0 mmol/L Blood Urea Nitrogen 41 mg/dl Creatinine 1.30 mg/dl Est Creatinine Clear Calc Drug Dose 53.3 ml/min Estimated GFR () 48.8 Estimated GFR (Non- 42.1 BUN/Creatinine Ratio 31.8 Random Glucose 122 mg/dl Calcium Level 9.2 mg/dl Date/Time Source Procedure Growth Status 02/19/17 20:35 Urine , Clean Catch Urine Culture - Preliminary PIN-POINT GROWTH PRESENT, REINCUBATING. Resulted Assessment & Plan 66 yo morbidly obese female with clear deconditioning was admitted with uncontrolled nontraumatic pain in her R hip that began spontaneously 1. R hip pain liekly 2/2 OA or strain: no fracture or dislocation on CT scan. Pain has improved on Tylenol and Tramadol scheduled. PT/OT recommend rehab but patient states she doesn't want that. Will keep overnight to continue pain control efforts as the patient states that she is not ready to go home at this time. 2. SBO?-General Surgery evaluated her and recommend progressing diet as she does not have an SBO 3. Chronic respiratory failure-recently hospitalized. Appears compensated. Recently admitted for this and is still finishing her steroid taper. Cont supplemental O2. 4. HTN- borderline hypotensive today still. Will cont to hold losartan. 5. Chronic diastolic failure-crackles heard on exam today on the right, compensated Bumex was held overnight. Restarting now. Cont potassium supplementation. 6. PAF-cont Toprol XL and propafenone. Not on anticoagulation. 7. Hypothyroidism-cont Synthroid replacement. 8. CKD III-around baseline. Improved off Bumex and losartan overnight. Restarting Bumex now, PRP in am. 9. chronic anemia-at baseline, improved from level at recent discharge. 10. Depression-cont sertraline 11. SIMONA-cont CPAP 12. Morbid Obesity DVT PROPHYLAXIS Heparin SQ CODE STATUS DNR per documentation on recent admissions DISPO: cont hospitalization for pain control. Tonie Ann DO [facility] Hospitalist Current Inpatient Medications: Current Inpatient Medications Medications (Trade) Dose Ordered Sig/Rupinder Route Start Time Stop Time Status Last Admin Dose Admin Ioversol (Optiray 320) 100 ml UD PRN IV 02/19/17 16:00 02/23/17 15:59 Heparin Sodium (Porcine) (Heparin Sq 5000 Unit/0.5ml) 5,000 unit Q8 SQ 02/19/17 22:00 03/21/17 21:59 02/20/17 05:53 5,000 UNIT Ondansetron HCl (Zofran Inj) 4 mg Q6H PRN IV 02/19/17 17:45 03/21/17 17:44 Acetaminophen (Tylenol Tab) 1,000 mg Q8 PO 02/19/17 22:00 03/21/17 21:59 02/20/17 05:51 1,000 MG Albuterol Sulfate (Ventolin 0.083% 2.5MG/3ML Neb) 2.5 mg QID PRN INH 02/19/17 18:15 03/21/17 18:14 Aspirin (Ecotrin Tab) 81 mg DAILY PO 02/20/17 09:00 03/22/17 08:59 02/20/17 08:43 81 MG Atorvastatin Calcium (Lipitor Tab) 20 mg DAILY PO 02/20/17 09:00 03/22/17 08:59 02/20/17 08:44 20 MG Salmeterol Xinafoate/ Fluticasone (Advair Diskus 500/50 Inh) 1 puff BID INH 02/19/17 21:00 03/21/17 20:59 02/20/17 08:42 1 PUFF Gabapentin (Neurontin Cap) 300 mg TID PO 02/19/17 21:00 03/21/17 20:59 02/20/17 08:45 300 MG Albuterol/ Ipratropium (Combivent Respimat Inh) 1 puffs QID PRN INH 02/19/17 18:15 03/21/17 18:14 Metoprolol Succinate (Toprol Xl Tab) 50 mg DAILY PO 02/20/17 09:00 03/22/17 08:59 02/20/17 08:48 50 MG Potassium Chloride (Klor-Con Tab) 20 meq Q2D PO 02/20/17 09:00 03/22/17 08:59 02/20/17 08:44 20 MEQ Propafenone HCl (Rythmol Tab) 150 mg TID PO 02/19/17 21:00 03/21/17 20:59 02/20/17 08:45 150 MG Roflumilast (Daliresp Tab) 500 mcg DAILY PO 02/20/17 09:00 03/22/17 08:59 02/20/17 08:43 500 MCG Sertraline HCl (Zoloft Tab) 25 mg DAILY PO 02/20/17 09:00 03/22/17 08:59 02/20/17 08:47 25 MG Prednisone (PredniSONE TAB) 10 mg DAILY PO 02/21/17 09:00 02/22/17 09:01 Prednisone (PredniSONE TAB) 5 mg DAILY PO 8/15/17 09:00 02/24/17 09:01 Tramadol HCl (Ultram Tab) 50 mg Q6H PO 02/19/17 20:45 03/21/17 20:44 02/20/17 08:42 50 MG Hydromorphone HCl (Dilaudid Inj) 0.5 mg Q4H PRN IV 02/19/17 20:45 03/05/17 20:44 02/19/17 23:30 0.5 MG Levothyroxine Sodium (Synthroid Tab) 88 mcg DAILYBB PO 02/20/17 06:00 03/22/17 05:59 02/20/17 05:51 88 MCG
[2017-02-20] MEDS: HYDROmorphone INJ 0.5 MG/0.5 ML SYR IV PRN (19:39)
[2017-02-20 22:21] VITALS: O2SAT 96
[2017-02-20 23:25] VITALS: BP 144/70; PULSE 70; TEMP 36.7; O2SAT 94
[2017-02-21] MEDS: TRAMADOL HCL 50 MG TAB PO SCH ×4 (03:34→21:41)
[2017-02-21] MEDS: HEPARIN SOD 5000 UNIT/0.5 ML CARP SQ SCH ×3 (05:51→21:40)
[2017-02-21] MEDS: HYDROmorphone INJ 0.5 MG/0.5 ML SYR IV PRN ×3 (05:53→16:49)
[2017-02-21] MEDS: ACETAMINOPHEN 500 MG TAB PO SCH ×3 (05:53→21:34)
[2017-02-21] MEDS: LEVOTHYROXINE 88 MCG TAB PO SCH (06:16)
[2017-02-21 06:17] LABS: HEMATOCRIT 29.1 % (37-47); MEAN CORPUSCULAR HEMOGLOBIN 29.9 pg (25-34); MEAN CORPUSCULAR HGB CONC 30.2 g/dl (32-36); MEAN PLATELET VOLUME 9.7 fL (7.4-10.4); PLATELET COUNT 176 K/uL (130-400); RED BLOOD COUNT 2.94 M/uL (4.2-5.4); WHITE BLOOD COUNT 11.21 K/uL (4.8-10.8)
[2017-02-21 06:51] VITALS: BP 132/67; PULSE 86; TEMP 36.9; O2SAT 97
[2017-02-21 07:04] LABS: BUN/CREATININE RATIO 25.4 (10-20); CALCIUM 9.1 mg/dl (8.5-10.1); CREATININE 1.5 mg/dl (0.60-1.20); MAGNESIUM 2.2 mg/dl (1.8-2.4); POTASSIUM 4.3 mmol/L (3.5-5.1)
[2017-02-21] MEDS: ROFLUMILAST 500 MCG TAB PO SCH (08:54)
[2017-02-21] MEDS: FLUTICASONE/SALMETEROL (ADVAIR) 500/50 INH 14 PUFF INH SCH ×2 (08:54→21:33)
[2017-02-21] MEDS: BUMETANIDE 1 MG TAB PO SCH ×2 (08:54→16:53)
[2017-02-21] MEDS: GABAPENTIN 300 MG CAP PO SCH ×3 (08:55→21:34)
[2017-02-21] MEDS: ASPIRIN 81 MG ECTAB PO SCH (08:55)
[2017-02-21] MEDS: PROPAFENONE HCL 150 MG TAB PO SCH ×3 (08:56→21:35)
[2017-02-21] MEDS: SERTRALINE HCL 50 MG TAB PO SCH (08:57)
[2017-02-21] MEDS: METOPROLOL SUCC 50MG EXT REL TAB PO SCH (08:57)
[2017-02-21] MEDS: ATORVASTATIN 20 MG TAB PO SCH (09:56)
[2017-02-21 15:36] VITALS: BP 114/52; PULSE 73; TEMP 37.1; O2SAT 95
[2017-02-21 16:30] VITALS: O2SAT 95
--- NOTE | 2017-02-21 17:47 | Progress Note ---
Medicine Progress Note Date & Time of Visit: Feb 21, 2017 at 10:24. Subjective tolerating PO pain improved on scheduled meds still present in lateral R hip area denies chest pain or SOB Objective Last 8 Hrs Date Time Temp Pulse Resp B/P (MAP) Pulse Ox O2 Delivery O2 Flow Rate FiO2 02/21/17 08:26 Nasal Cannula 2.0 02/21/17 06:51 36.9 86 16 132/67 (88) 97 Nasal Cannula 2.0 Physical Exam: GEN: morbid obesity, in no acute distress, alert and appropriate HEENT: NC/AT, normal sclerae, MMM CARDIO: reg rate, S1/2 heard without m/g/r LUNGS: Crackles throughout R lung, CTA on left, no wheezing or rales heard. ABD: soft, non-tender, non-distended, no rebound or guarding, +BS EXTREMITY: RP and DP palpable 2+ bilat, no LE swelling or edema, extremities are warm and well-perfused R HIP: TTP on lateral R hip over GTB/IT band area especially tender NEURO: CN 2-12 grossly intact, no gross focal deficits. MUSC: moves all extremities equally SKIN: warm and dry Laboratory Results: 02/21/17 05:31 02/21/17 05:31 Test 02/19/17 12:03 02/19/17 14:41 02/19/17 20:35 02/21/17 05:31 Immature Granulocyte % (Auto) 0.4 % White Blood Count 11.17 K/uL (4.8-10.8) Red Blood Count 3.04 M/uL (4.2-5.4) 2.94 M/uL (4.2-5.4) Hemoglobin 9.2 g/dL (12.0-16.0) Hematocrit 30.0 % (37-47) Mean Corpuscular Volume 98.7 fL (80-100) 99.0 fL (80-100) Mean Corpuscular Hemoglobin 30.3 pg (25-34) 29.9 pg (25-34) Mean Corpuscular Hemoglobin Concent 30.7 g/dl (32-36) 30.2 g/dl (32-36) Platelet Count 153 K/uL (130-400) Mean Platelet Volume 10.2 fL (7.4-10.4) 9.7 fL (7.4-10.4) Neutrophils (%) (Auto) 72.8 % Lymphocytes (%) (Auto) 12.7 % Monocytes (%) (Auto) 10.1 % Eosinophils (%) (Auto) 3.9 % Basophils (%) (Auto) 0.1 % Neutrophils # (Auto) 8.13 K/uL (1.4-6.5) Lymphocytes # (Auto) 1.42 K/uL (1.2-3.4) Monocytes # (Auto) 1.13 K/uL (0.11-0.59) Eosinophils # (Auto) 0.44 K/uL (0-0.5) Basophils # (Auto) 0.01 K/uL (0-0.2) Immature Granulocyte # (Auto) 0.04 K/uL (0.00-0.02) Total Bilirubin 0.5 mg/dl (0.2-1) Direct Bilirubin mg/dl (0-0.2) Aspartate Amino Transf (AST/SGOT) 14 U/L (15-37) Alanine Aminotransferase (ALT/SGPT) 18 U/L (12-78) Alkaline Phosphatase 64 U/L (45-117) Total Protein 6.7 gm/dl (6.4-8.2) Albumin 2.9 gm/dl (3.4-5.0) Lipase 105 U/L (73-393) D-Dimer 290 ug/L FEU (0-500) Urine Color YELLOW Urine Appearance CLEAR (CLEAR) Urine pH 5.5 (4.5-7.5) Urine Specific [place] 1.045 (1.000-1.030) Urine Protein NEG (NEG) Urine Glucose (UA) NEG (NEG) Urine Ketones NEG (NEG) Urine Occult Blood TRACE (NEG) Urine Nitrite NEG (NEG) Urine Bilirubin NEG (NEG) Urine Urobilinogen NEG (NEG) Urine Leukocyte Esterase NEG (NEG) Urine WBC (Auto) 1-5 /hpf (0-5) Urine RBC (Auto) 0-4 /hpf (0-4) Urine Hyaline Casts (Auto) 0 /lpf (0-5) Urine Epithelial Cells (Auto) >30 /lpf (0-5) Urine Bacteria (Auto) 1+ (NEG) RDW Standard Deviation 57.1 fL (36.4-46.3) RDW Coefficient of Variation 15.6 % (11.5-14.5) Anion Gap 2.0 mmol/L (3-11) Est Creatinine Clear Calc Drug Dose 46.2 ml/min Estimated GFR () 41.1 Estimated GFR (Non- 35.4 BUN/Creatinine Ratio 25.4 (10-20) Calcium Level 9.1 mg/dl (8.5-10.1) Magnesium Level 2.2 mg/dl (1.8-2.4) Date/Time Source Procedure Growth Status 02/19/17 20:35 Urine , Clean Catch Urine Culture - Final MORE THAN THREE TYPES OF ORGANISMS GA... Complete Last 24 Hours Test 02/21/17 05:31 White Blood Count 11.21 K/uL Red Blood Count 2.94 M/uL Hemoglobin 8.8 g/dL Hematocrit 29.1 % Mean Corpuscular Volume 99.0 fL Mean Corpuscular Hemoglobin 29.9 pg Mean Corpuscular Hemoglobin Concent 30.2 g/dl RDW Standard Deviation 57.1 fL RDW Coefficient of Variation 15.6 % Platelet Count 176 K/uL Mean Platelet Volume 9.7 fL Sodium Level 141 mmol/L Potassium Level 4.3 mmol/L Chloride Level 96 mmol/L Carbon Dioxide Level 43 mmol/L Anion Gap 2.0 mmol/L Blood Urea Nitrogen 38 mg/dl Creatinine 1.50 mg/dl Est Creatinine Clear Calc Drug Dose 46.2 ml/min Estimated GFR () 41.1 Estimated GFR (Non- 35.4 BUN/Creatinine Ratio 25.4 Random Glucose 95 mg/dl Calcium Level 9.1 mg/dl Magnesium Level 2.2 mg/dl Assessment & Plan 66 yo morbidly obese female with clear deconditioning was admitted with uncontrolled nontraumatic pain in her R hip that began spontaneously 1. R hip pain likely 2/2 OA or strain vs poss bursitis: no fracture or dislocation on CT scan. Pain has improved on Tylenol and Tramadol scheduled. PT/OT recommend rehab but patient states she doesn't want that. She is agreeable to rehab today with referral placed to [facility]. Will involve Ortho in am to evaluate hip s/p prosthesis placement in the past. Cont pain control efforts and PT efforts. 2. Chronic respiratory failure-recently hospitalized. Appears compensated. Recently admitted for this and is still finishing her steroid taper. Cont supplemental O2. 3. HTN- borderline hypotensive today still. Will cont to hold losartan. 4. Chronic diastolic failure-crackles heard on exam today on the right, compensated Bumex restarted with resolution of rhonchi on lung exam today. No increased work of breathing per patient. Cont diuretics and potassium replacement. 5. PAF-cont Toprol XL and propafenone. Not on anticoagulation. 6. Hypothyroidism-cont Synthroid replacement. 7. CKD III-around baseline. Improved off Bumex and losartan overnight. Restarting Bumex now, PRP in am. 8. chronic anemia-at baseline, improved from level at recent discharge. 9. Depression-cont sertraline 10. SIMONA-cont CPAP 11. Morbid Obesity DVT PROPHYLAXIS Heparin SQ CODE STATUS DNR DISPO: cont hospitalization for pain control. Referral placed to rehab at [facility]. Tonie Ann DO [facility] Hospitalist Current Inpatient Medications: Current Inpatient Medications Medications (Trade) Dose Ordered Sig/Rupinder Route Start Time Stop Time Status Last Admin Dose Admin Ioversol (Optiray 320) 100 ml UD PRN IV 02/19/17 16:00 02/23/17 15:59 Heparin Sodium (Porcine) (Heparin Sq 5000 Unit/0.5ml) 5,000 unit Q8 SQ 02/19/17 22:00 03/21/17 21:59 02/21/17 05:51 5,000 UNIT Ondansetron HCl (Zofran Inj) 4 mg Q6H PRN IV 02/19/17 17:45 03/21/17 17:44 Acetaminophen (Tylenol Tab) 1,000 mg Q8 PO 02/19/17 22:00 03/21/17 21:59 02/21/17 05:53 1,000 MG Albuterol Sulfate (Ventolin 0.083% 2.5MG/3ML Neb) 2.5 mg QID PRN INH 02/19/17 18:15 03/21/17 18:14 Aspirin (Ecotrin Tab) 81 mg DAILY PO 02/20/17 09:00 03/22/17 08:59 02/21/17 08:55 81 MG Atorvastatin Calcium (Lipitor Tab) 20 mg DAILY PO 02/20/17 09:00 03/22/17 08:59 02/21/17 09:56 20 MG Salmeterol Xinafoate/ Fluticasone (Advair Diskus 500/50 Inh) 1 puff BID INH 02/19/17 21:00 03/21/17 20:59 02/21/17 08:54 1 PUFF Gabapentin (Neurontin Cap) 300 mg TID PO 02/19/17 21:00 03/21/17 20:59 02/21/17 08:55 300 MG Albuterol/ Ipratropium (Combivent Respimat Inh) 1 puffs QID PRN INH 02/19/17 18:15 03/21/17 18:14 Metoprolol Succinate (Toprol Xl Tab) 50 mg DAILY PO 02/20/17 09:00 03/22/17 08:59 02/21/17 08:57 50 MG Potassium Chloride (Klor-Con Tab) 20 meq Q2D PO 02/20/17 09:00 03/22/17 08:59 02/20/17 08:44 20 MEQ Propafenone HCl (Rythmol Tab) 150 mg TID PO 02/19/17 21:00 03/21/17 20:59 02/21/17 08:56 150 MG Roflumilast (Daliresp Tab) 500 mcg DAILY PO 02/20/17 09:00 03/22/17 08:59 02/21/17 08:54 500 MCG Sertraline HCl (Zoloft Tab) 25 mg DAILY PO 02/20/17 09:00 03/22/17 08:59 02/21/17 08:57 25 MG Prednisone (PredniSONE TAB) 10 mg DAILY PO 02/21/17 09:00 02/22/17 09:01 02/21/17 08:56 10 MG Prednisone (PredniSONE TAB) 5 mg DAILY PO 02/23/17 09:00 02/24/17 09:01 Tramadol HCl (Ultram Tab) 50 mg Q6H PO 02/19/17 20:45 03/21/17 20:44 02/21/17 08:53 50 MG Hydromorphone HCl (Dilaudid Inj) 0.5 mg Q4H PRN IV 02/19/17 20:45 03/05/17 20:44 02/21/17 05:53 0.5 MG Levothyroxine Sodium (Synthroid Tab) 88 mcg DAILYBB PO 02/20/17 06:00 03/22/17 05:59 02/21/17 06:16 88 MCG Bumetanide (Bumex Tab) 1 mg BID17 PO 02/21/17 09:00 03/23/17 08:59 02/21/17 08:54 1 MG
[2017-02-21 23:15] VITALS: BP 111/65; PULSE 72; TEMP 36.6; O2SAT 96
[2017-02-21 23:35] VITALS: O2SAT 96
[2017-02-22] MEDS: HYDROmorphone INJ 0.5 MG/0.5 ML SYR IV PRN ×2 (01:23→11:01)
[2017-02-22] MEDS: TRAMADOL HCL 50 MG TAB PO SCH ×3 (03:34→14:04)
[2017-02-22] MEDS: HEPARIN SOD 5000 UNIT/0.5 ML CARP SQ SCH ×2 (06:04→13:25)
[2017-02-22] MEDS: ACETAMINOPHEN 500 MG TAB PO SCH ×2 (06:05→13:23)
[2017-02-22] MEDS: LEVOTHYROXINE 88 MCG TAB PO SCH (06:05)
[2017-02-22 07:03] LABS: HEMATOCRIT 28.6 % (37-47); MEAN CORPUSCULAR HEMOGLOBIN 31.1 pg (25-34); MEAN CORPUSCULAR HGB CONC 31.1 g/dl (32-36); PLATELET COUNT 166 K/uL (130-400); RED BLOOD COUNT 2.86 M/uL (4.2-5.4); WHITE BLOOD COUNT 10.97 K/uL (4.8-10.8)
[2017-02-22 07:26] VITALS: BP 118/69; PULSE 75; TEMP 36.5; O2SAT 96
[2017-02-22 07:44] LABS: BUN/CREATININE RATIO 27.4 (10-20); CALCIUM 9.3 mg/dl (8.5-10.1); CREATININE 1.7 mg/dl (0.60-1.20); POTASSIUM 4.5 mmol/L (3.5-5.1)
[2017-02-22] MEDS: GABAPENTIN 300 MG CAP PO SCH ×2 (09:00→13:22)
[2017-02-22] MEDS: ASPIRIN 81 MG ECTAB PO SCH (09:01)
[2017-02-22] MEDS: SERTRALINE HCL 50 MG TAB PO SCH (09:01)
[2017-02-22] MEDS: ATORVASTATIN 20 MG TAB PO SCH (09:01)
[2017-02-22] MEDS: POTASSIUM CHLORIDE 20 MEQ TABCR PO SCH (09:01)
[2017-02-22] MEDS: METOPROLOL SUCC 50MG EXT REL TAB PO SCH (09:01)
[2017-02-22] MEDS: ROFLUMILAST 500 MCG TAB PO SCH (09:02)
[2017-02-22] MEDS: PROPAFENONE HCL 150 MG TAB PO SCH ×2 (09:02→13:22)
[2017-02-22] MEDS: FLUTICASONE/SALMETEROL (ADVAIR) 500/50 INH 14 PUFF INH SCH (09:02)
[2017-02-22] MEDS: BUMETANIDE 1 MG TAB PO SCH ×2 (09:02→17:06)
[2017-02-22] MEDS ORDERED: ETHYL CHLORIDE AER SPR 100 ML CAN EXT SCH (13:30)
[2017-02-22] MEDS ORDERED: METHYLPREDNISOLONE ACETATE 80 MG/ML VIAL IA ONE (13:30)
[2017-02-22] MEDS ORDERED: LIDOCAINE HCL 1% 20 ML VIAL ONE (13:37)
[2017-02-22 15:22] VITALS: BP 117/65; PULSE 76; TEMP 37; O2SAT 95
[2017-02-22] MEDS ORDERED: ULT50X PO (16:20)
--- NOTE | 2017-02-22 16:25 | Discharge Instructions ---
Discharge Instructions Date of Service Feb 22, 2017. Admission Reason for Admission: Abdominal Pain, Right Hip Pain Discharge Discharge Diagnosis / Problem: nontraumatic R hip pain s/p injection therapy Discharge Goals Goal(s): Prevent Disease Progression Activity Recommendations Activity Limitations: per Instructions/Follow-up section . Instructions / Follow-Up Instructions / Follow-Up Please take all medications as instructed. You only have two more days of the prednisone 5mg daily to complete your taper ( 02/23 and 02/24) and then stop. Cont taking your weight every day and notify your primary care physician of any weight gain of 5 lbs or more in two days. It is recommended that you see your primary care physician within one week of discharge from the rehab facility. Follow-up with Orthopedics as instructed as outpatient. It was a pleasure taking care of you! Call if you have any questions or problems. You can reach a [facility] hospitalist on duty at [facility] 24 hours a day by calling [phone]. Take care of yourself. [facility] Patient's current hospital diet: AHA Diet (Heart Healthy) Discharge Diet Recommended Diet: AHA Diet (Heart Healthy) Procedures Procedures Performed: R hip injection Pending Studies Studies pending at discharge: no Medical Emergencies . Who to Call and When: Medical Emergencies: If at any time you feel your situation is an emergency, please call 911 immediately. . Non-Emergent Contact Non-Emergency issues call your: Primary Care Provider . . "Provider Documentation" section prepared by Tonie Ann. . VTE Core Measure Inpt VTE Proph given/why not?: Unfractionated heparin [place] Drug Monitoring Program Search Results: patient reviewed within database, no issues identified
--- NOTE | 2017-02-22 16:32 | Discharge Summary ---
Discharge Summary Date of Service Feb 22, 2017. Discharge Summary Admission Date: Feb 19, 2017 at 17:40 Discharge Date: Feb 22, 2017 Discharge Disposition: Rehab Principal Diagnosis: R hip pain in setting of OA s/p R hip injection Chronic respiratory failure Chronic diastolic heart failure-compensated HTN PAF Hypothyrodism CKDIII Chronic anemia Depression SIMONA Morbid Obesity Procedures: R hip injection per Ortho Vaccinations: None Consultations: Ortho Pending Studies/Follow-Up: see instructions below. Medication Reconciliation New Medications: Tramadol HCl (Tramadol HCl) 50 Mg Tab 50 MG PO Q6H PRN for Pain for 7 Days, #28 TAB Continued Medications: Acetaminophen (Tylenol) 325 Mg Tab 650 MG PO Q4H PRN for Pain or Fever, TAB Albuterol Sulf (Proventil 0.083% 2.5MG/3ML) 2.5 Mg/3 Ml Nebu 2.5 MG INH QID PRN for SOB/Wheezing, #1 EA Allopurinol (Zyloprim) 300 Mg Tab 300 MG PO DAILY, TAB Aspirin (Aspirin Ec) 81 Mg Tab 81 MG PO DAILY Atorvastatin (Lipitor) 20 Mg Tab 20 MG PO DAILY, TAB Bumetanide (Bumetanide) 1 Mg Tab 1 MG PO BID for 30 Days, #60 TAB Cholecalciferol (Vitamin D3) 1,000 Unit Tab 2000 UNIT PO DAILY for 30 Days, #6 TAB 5 Refills Ferrous Sulfate (Kp Ferrous Sulfate) 325 Mg Tab 1 TAB PO DAILY for 30 Days, #30 TAB 3 Refills Fluticasone Prop/Salmeterol (Advair Diskus 500/50 60 Dose) 1 Ea Aerp 1 PUFFS INH BID for 30 Days, #1 INHALER 5 Refills Gabapentin (Neurontin) 300 Mg Cap 300 MG PO TID, CAP Ipratropium-Albuterol (Combivent Respimat) 1 Aer Aer 1 PUFFS INH QID PRN for sob/wheezing, #1 INH Iron Combinations (Iron Complex) Unknown Strength Cap Unknown Dose PO Lactobacillus Acidophilus (Lactinex) Tab 1 TAB PO TID, #30 TAB Levothyroxine Sodium (Synthroid) 88 Mcg Tab 88 MCG PO DAILY, TAB Metolazone (Metolazone) 2.5 Mg Tab 2.5 MG PO UD 2.5 mg by mouth twice per week on Wednesday and Wednesday. Metoprolol Succinate (Toprol Xl) 50 Mg Tab 50 MG PO DAILY, TAB Multivitamins/Minerals (Certavite/Antioxidants) 1 Tab Tab 1 TAB PO DAILY Potassium Ext Rel (Klor-Con) 20 Meq Tabcr 20 MEQ PO Q2D for 30 Days, TAB every other day Prednisone (Prednisone) 10 Mg Tab 40 MG PO UD, #21 TAB PREDNISONE 40MG PO DAILY X 2 DAYS THEN PREDNISONE 30MG PO DAILY X 2 DAYS THEN PREDNISONE 20MG PO DAILY X 2 DAYS THEN PREDNISONE 10MG PO DAILY X 2 DAYS THEN PREDNISONE 5MG PO DAILY X 2 DAYS THEN STOP. Propafenone Hcl (Propafenone Hcl) 150 Mg Tab 150 MG PO TID Roflumilast (Daliresp) 500 Mcg Tab 500 MCG PO DAILY, #30 TAB 1 Refill Sertraline (Zoloft) 25 Mg Tab 25 MG PO DAILY, TAB Discontinued Medications: Losartan Potassium (Losartan Potassium) 50 Mg Tab 50 MG PO QAM for 30 Days, #30 TAB Ranitidine (Zantac) 150 Mg Tab 150 MG PO BID, TAB Admission Information HPI (per Admitting provider): This is a 66 y/o female with PMH of chornic hypoxic respiratory failure due to COPD on home O2, morbid obesity, sleep apnea on CPAP, PAF not on anticoagulation , HTN, chronic diastolic CHF, CKD IV, lumbar spinal stenosis, who presents to the ED with right hip pain. Patient reports severe pain from her lower back to right hip down to her right knee. The pain started yesterday. No recent fall/ trauma. The right hip was replaced approx 5 years ago due to fracture does not recall the surgeon's name. She reports insomnia overnight due to severe pain. Tried Tylenol at home without relief. IV Dilaudid in ER helped but still rates pain 9/10. Reports difficulty ambulating due to pain. Uses cane or walker PRN at home. Denies lower extremity weakness or numbness, groin numbness, or bowel or bladder incontinence. Patient denies abdominal pain, however was noted to have RLQ tenderness in ER. No nausea or vomiting. Last BM was formed this morning. Has been belching since then but not passing flatus. Has a large abdominal girth however denies increase from her baseline. She did not eat or take medications today. Has had appendectomy and cholecystectomy. Denies any other abdominal surgeries. Patient was recently admitted February 11- for acute on chronic respiratory failure due to COPD exacerbation . She was discharged on prednisone taper. Her cough is improved- no longer producing sputum. Denies fever, chest pain, SOB, increasing edema, urinary changes. Physical Exam (per Admitting): General Appearance: WD/WN, + obese (morbidly obese), + pertinent finding ( no distress while lying in bed, but significant pain upon examination/ ROM of the right hip) Head: normocephalic, atraumatic Eyes: normal inspection, PERRL, EOMI ENT: hearing grossly normal, pharynx normal Neck: supple, trachea midline Respiratory/Chest: lungs clear (in anterior lung valdez), normal breath sounds, no respiratory distress, no accessory muscle use Cardiovascular: regular rate, rhythm, no murmur Abdomen/GI: soft, + abnormal bowel sounds (hyperactive bowel sounds), + pertinent finding (RLQ tender to palpation. no rebound tenderness. large abdominal girth- chronic per patient) Back: + pertinent finding (back not examined- patient unable to roll without severe pain) Extremities/Musculoskelatal: no calf tenderness, no pedal edema, + pertinent finding (Right hip tender to palpation laterally. scar noted lateral hip without any erythema. severe pain with ROM right hip. ) Neurologic/Psych: alert, normal mood/affect, oriented x 3 Skin: normal color, warm/dry Hospital Course Pt admitted for nontraumatic R hip pain that occurred spontaneously at home. She has a h/o R hip infection after trochanteric femoral nail placement. She underwent surgery with removal of the jayjay and antibiotic spacer was placed. After IV antibiotic, she was then brought back to the OR for revision R total hip arthroplasty-this all took place in 2012. She was initially treated conservatively with scheduled Tramadol and Tylenol with some improvement, however, her pain persisted so Ortho was consulted. She was found to have a cable located in the area between the greater and lesser trochanter that could be causing a trochanteric-like bursa inflammation. Therefore, she underwent a bursa injection with Depo-Medrol into the lateral R hip. She was then sent to rehab at [facility]. On day of discharge, her physical exam was unchanged and unremarkable if only for the TTP of her R lateral hip. She was transferred in good condition by POV with her sister to for further rehab. Total time spent on discharge = 60 minutes This includes examination of the patient, discharge planning, medication reconciliation, and communication with other providers. Discharge Instructions [facility] [address] [place] [address] Discharge Medical Patient Name: Eneida Lee Unit Number: [id number] Date of : 1950 Patient Status: Admitted Inpatient Attending Doctor: Tonie Ann DO DI: Medical v4 Discharge Instructions Date of Service Feb 22, 2017. Admission Reason for Admission: Abdominal Pain, Right Hip Pain Discharge Discharge Diagnosis / Problem: nontraumatic R hip pain s/p injection therapy Discharge Goals Goal(s): Prevent Disease Progression Activity Recommendations Activity Limitations: per Instructions/Follow-up section . Instructions / Follow-Up Instructions / Follow-Up Please take all medications as instructed. You only have two more days of the prednisone 5mg daily to complete your taper ( 02/23 and 02/24) and then stop. Cont taking your weight every day and notify your primary care physician of any weight gain of 5 lbs or more in two days. It is recommended that you see your primary care physician within one week of discharge from the rehab facility. Follow-up with Orthopedics as instructed as outpatient. It was a pleasure taking care of you! Call if you have any questions or problems. You can reach a [facility] hospitalist on duty at [facility] 24 hours a day by calling [phone]. Take care of yourself. Tonie Ann DO [facility] Hospitalist Current Hospital Diet Patient's current hospital diet: AHA Diet (Heart Healthy) Discharge Diet Recommended Diet: AHA Diet (Heart Healthy) Procedures Procedures Performed: R hip injection Pending Studies Studies pending at discharge: no Medical Emergencies . Who to Call and When: Medical Emergencies: If at any time you feel your situation is an emergency, please call 911 immediately. . Non-Emergent Contact Non-Emergency issues call your: Primary Care Provider . . "Provider Documentation" section prepared by Tonie Ann. . VTE Core Measure Inpt VTE Proph given/why not?: Unfractionated heparin SQ [place] Drug Monitoring Program Search Results: patient reviewed within database, no issues identified Additional Copies To Babak Melendez M.D. ([facility])
--- NOTE | 2017-02-22 16:44 | ORTHOPEDIC CONSULTATION REPORT ---
DATE OF CONSULTATION: 02/22/2017 REASON FOR CONSULT: Right lateral hip pain. HISTORY OF PRESENT ILLNESS: The patient is a 66-year-old white female known to our practice, who was seen by Dr. Mayes and at that time, had an infection in her right hip, of which she had had a trochanteric femoral nail placed, which got infected. The patient had undergone surgery with removal of the jayjay and an antibiotic spacer was placed. After IV antibiotics, she was then brought back to the operating room and a revision right total hip arthroplasty was done by Dr. Mayes. The patient was admitted at this time on the with abdominal pain and right hip pain. During her stay, it appeared that her right hip pain was slowly getting a little bit better with pain management; however, continued to progress and we have been consulted to see her for her right lateral hip pain. PAST MEDICAL HISTORY: Asthma, CHF, CKD, COPD, depression, dyslipidemia, GERD, hypertension, iron deficiency anemia, spinal stenosis, morbid obesity, CAD with AL in the past, and paroxysmal atrial fibrillation in the past. PAST SURGICAL HISTORY: Appendectomy, trochanteric nailing of right hip with removal and then placement of right total hip arthroplasty revision after removal of antibiotic spacer, cholecystectomy, cervical spinal fusion, and wrist surgery in the past. FAMILY AND SOCIAL HISTORY: As per admitting history and physical. MEDICATIONS: Allopurinol 300 mg p.o. daily, aspirin 81 mg p.o. daily, atorvastatin 20 mg p.o. daily, bumetanide 1 mg p.o. b.i.d., vitamin D3 at 2000 units p.o. daily, ferrous sulfate 1 tab p.o. daily, Advair Diskus 500/50 one puff inhaled b.i.d., gabapentin 300 mg p.o. t.i.d., lactobacillus acidophilus 1 tab p.o. t.i.d., levothyroxine 88 mcg p.o. daily, losartan potassium 50 mg p.o. q.a.m., metolazone 2.5 mg p.o. as directed, metoprolol XL 50 mg p.o. daily, multivitamin p.o. daily, Klor-Con 20 mEq p.o. every 2 days, prednisone 40 mg p.o. as directed, propafenone 150 mg p.o. t.i.d., Zantac 150 mg p.o. b.i.d., roflumilast 500 mcg p.o. daily, sertraline 25 mg p.o. daily, Tylenol 650 mg p.o. q. 4 hours p.r.n., albuterol 2.5 mg inhaled q.i.d. p.r.n. and Combivent 1 puff inhaled q.i.d. p.r.n. ALLERGIES: ADHESIVES, LATEX AND MORPHINE. REVIEW OF SYSTEMS: As per admitting history and physical. PHYSICAL EXAMINATION: VITAL SIGNS: Latest vital signs showed temp 36.5, pulse 75, respirations 20, BP 118/69, and pulse ox 96 on 4 liters per nasal cannula this morning. GENERAL: The patient is an obese white female, alert and oriented x3, in mild amount of distress secondary to her right hip pain. She is pleasant and cooperative. EXTREMITIES: On examination of her right hip conclusively, she has a well-healed scar from previous revision of her septic right hip. There is no erythema. There is no moderate swelling noted at this time. She is tender over her incision area, but mainly over the proximal portion of the hip. She is able to go through range of motion of the right hip, but with discomfort in that area. At one point, she did stand up from her chair and was able to weightbear on the hip, but with some slight discomfort in the lateral right hip. She has no pain going down to the knee or the right foot at this time and sensation is intact and there is no gross motor or sensory deficits seen at this time. She denies groin pain at this time with range of motion or with weightbearing. ASSESSMENT: Greater trochanteric bursitis on the right side. PLAN: X-rays were reviewed with Dr. Griffin. The patient had undergone revision of her right hip and she had lost a good portion of her greater trochanter; however, there is a cable located just in this area between the greater trochanter and the lesser trochanter that could be causing a trochanteric-type bursa inflammation. Otherwise, the ABIMAEL prosthesis looks to be in good alignment without fracture etc. After discussing with Dr. Griffin , it was felt that she could undergo an injection of Depo-Medrol in this area to help with her pain in the lateral hip. This was discussed with the patient in depth and she is in agreement to undergo injection of this area. At that time, the patient was in her bed and propped up a little bit on to her left side. The most exquisitely tender area was chosen in the proximal hip and was marked. This area was then cleansed with 2 alcohol swabs and 3 Betadine swabs and let to dry. With a 20-gauge needle with 10 mL syringe, 80 mg of Depo-Medrol and 2 mL of lidocaine without epinephrine were injected into the most painful portion of the area after spraying ethyl chloride for skin anesthesia. The patient tolerated the procedure well and the needle was removed after injection and a 4 x 4 was placed over the injection site and the pressure was applied approximately 1 minute. She only had a small amount of bleeding and after discussing it with the patient with her [employer], she states that Band-Aids were okay to use on her skin. At that point in time, a Band-Aid was placed over the injection site. The patient may be weightbearing as tolerated and we discussed that it would take anywhere from 24 to 48 hours for her to feel any true benefit from the steroid. If she continued to have [id number] pain in this area, she could be seen in our office by one of our physician's. Plans will be for the patient to be transferred to [facility] for further physical therapy. QUANG
[2017-02-22 18:22] VITALS: BP 117/65; PULSE 76; TEMP 37; O2SAT 95
== END 2017-02-22 18:40 | DRG 554 ==
LOC: EDBD 11:02 → C.EDB 11:03 → C.MSN 17:40 → UNDOADMIN 17:40 → ENRESERV 18:06
PROVIDERS: ADMIT Hospitalist; ATTEND Hospitalist
DX: M16.11 Unilateral primary osteoarthritis, right hip (principal); N18.4 Chronic kidney disease, stage 4 (severe); E66.2 Morbid (severe) obesity with alveolar hypoventilation; J96.10 Chronic respiratory failure, unspecified whether with hypoxia or hypercapnia; I50.32 Chronic diastolic (congestive) heart failure; Z68.42 Body mass index [BMI] 45.0-49.9, adult; I11.0 Hypertensive heart disease with heart failure; J45.909 Unspecified asthma, uncomplicated; F32.9 Major depressive disorder, single episode, unspecified; E78.5 Hyperlipidemia, unspecified; K21.9 Gastro-esophageal reflux disease without esophagitis; I48.0 Paroxysmal atrial fibrillation; Z90.49 Acquired absence of other specified parts of digestive tract; Z96.641 Presence of right artificial hip joint; Z96.611 Presence of right artificial shoulder joint; Z83.3 Family history of diabetes mellitus; Z87.891 Personal history of nicotine dependence; Z79.82 Long term (current) use of aspirin; I25.2 Old myocardial infarction

== ENCOUNTER 2017-06-18 13:46 | Inpatient (IN) | payer OTHER ==
[~2017-06-18] VITALS: Ht 162.6 cm; Wt 109.2 kg
[~2017-06-18 13:46] MED LIST changes: -ALBINS/ INH; +CHOL1000 PO; -CZR50 PO; +IRON1CAP2 PO; -LCTX PO; +METO-452 PO; -METO1TAB66 PO; +SERT25TA PO; +ULT50X PO; -ZNTT/150 PO; +ZRX25 PO
[2017-06-18] MEDS ORDERED: ALBUT/IPRATROP 3MG/0.5MG NEB 3 ML VIAL INH ONE (14:15)
--- NOTE | 2017-06-18 14:18 | EMERGENCY ROOM VISIT NOTE ---
History First contact with patient: 13:55 Chief Complaint: RESPIRATORY PROBLEMS Stated Complaint: SOB Nursing Triage Summary: patient presents via ambulance from home. patient reports she has increasing sob over the past couple days. productive cough with clear sputum. patient was given 125 slumedrol iv, duoneb and 1 albuterol treatment. patients bsg was 118. patient is a former smoker History of Present Illness The patient is a 66 year old female who presents to the Emergency Room with complaints of shortness of breath for the last 4 days. The patient has a history of COPD. She typically wears 4 L of oxygen per nasal cannula at all times. She is also had a productive cough with clear sputum. She denies any fever or chills. She also reports an occasional sharp pain in the left side of her chest. This is not worse with exertion. She has a nebulizer at home. She has not been using it. The patient just finished a course of steroids last week. She does not take steroids daily. She denies any recent weight gain. No increase in salty foods or fluids. Review of Systems 10 system review performed and negative unless noted in HPI or below Past Medical/Surgical History Medical Problems: (1) Abdominal pain (2) Asthma (3) CHF (congestive heart failure) (4) Chronic respiratory failure (5) CKD (chronic kidney disease), stage IV (6) COPD (chronic obstructive pulmonary disease) (7) Depression (8) Dyslipidemia (9) GERD (gastroesophageal reflux disease) (10) HTN (hypertension) (11) EVONNE (iron deficiency anemia) (12) Lumbar spinal stenosis (13) Morbid obesity (14) Myocardial infarction (15) Obesity hypoventilation syndrome (16) Paroxysmal a-fib (17) Respiratory failure, [id number] (18) Right hip pain Surgical Problems: (1) History of appendectomy (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 (4) Hx of cholecystectomy (5) S/P cervical spinal fusion (6) S/P wrist surgery Family History Diabetes mellitus MOTHER FH: CAD (coronary artery disease) MOTHER SISTER Social History Smoking Status: Former Smoker Alcohol Use: none Drug Use: none Marital Status: single Housing Status: lives with family Occupation Status: retired Current/Historical Medications Scheduled Albuterol Hfa (Ventolin Hfa), 2-4 PUFFS INH Q6H Albuterol Sulf (Proventil 0.083% 2.5MG/3ML), 2.5 MG INH QID Allopurinol (Zyloprim), 300 MG PO DAILY Amiodarone Hcl (Cordarone), 200 MG PO DAILY Aspirin (Aspirin Ec), 81 MG PO DAILY Atorvastatin (Lipitor), 20 MG PO DAILY Bisoprolol Fumarate (Zebeta), 5 MG PO DAILY Cholecalciferol (Vitamin D3), 2,000 UNIT PO DAILY Duloxetine Hcl (Cymbalta), 60 MG PO DAILY Ferrous Sulfate (Kp Ferrous Sulfate), 1 TAB PO DAILY Fluticasone Furoate-Vilanterol (Breo Ellipta 200-25 Mcg/INH), 1 PUFF INH DAILY Gabapentin (Neurontin), 300 MG PO TID Levothyroxine Sodium (Synthroid), 88 MCG PO DAILY Metolazone (Metolazone), 2.5 MG PO UD Metoprolol Succinate (Toprol Xl), 50 MG PO DAILY Multivitamins/Minerals (Certavite/Antioxidants), 1 TAB PO DAILY Potassium Ext Rel (Klor-Con), 20 MEQ PO BID Propafenone Hcl (Propafenone Hcl), 150 MG PO TID Ranitidine (Zantac), 150 MG PO BID Ropinirole (Requip), 5 MG PO DAILY Sertraline (Zoloft), 25 MG PO DAILY Umeclidinium [place] (Incruse Ellipta), 1 PUFF INH DAILY Scheduled PRN Acetaminophen (Tylenol), 650 MG PO Q4H PRN for Pain or Fever Benzonatate (Tessalon Perles), 1 CAP PO TID PRN for Cough Miscellaneous Medications Iron Combinations (Iron Complex), Unknown Dose PO Physical Exam Vital Signs Date Time Temp Pulse Resp B/P (MAP) Pulse Ox O2 Delivery O2 Flow Rate FiO2 06/18/17 16:08 92 20 157/68 99 Nasal Cannula 4.0 06/18/17 15:07 86 20 145/70 100 Nebulizer 06/18/17 13:58 76 06/18/17 13:58 99 Nasal Cannula 6.0 06/18/17 13:52 99 Nasal Cannula 6.0 06/18/17 13:52 36.7 84 24 126/60 99 Nasal Cannula 6.0 Physical Exam GENERAL: 66-year-old female, in mild respiratory distress SKIN: The skin was without rashes, erythema, edema, HEAD: Normocephalic atraumatic. MOUTH: Mucous membranes moist. NECK: Supple without nuchal rigidity. No lymphadenopathy. Cervical spine is nontender. No JVD. HEART: Regular rate and rhythm without murmurs gallops or rubs. LUNGS: Diffuse wheeze in all lung valdez. No crackles at the bases. No tachypnea. Saturating at 97% on 6 L. ABDOMEN: Positive bowel sounds x 4.Soft, nontender, without organomegaly. No guarding or rebound tenderness. MUSCULOSKELETAL: No muscle atrophy, erythema, or edema noted. Strength 5/5 throughout. NEURO: Patient was alert and oriented to person place and time. Normal sensation to touch. No focal neurological deficits. Medical Decision & Procedures ER Provider Diagnostic Interpretation: Chest x-ray IMPRESSION: Stable cardiomegaly with components of mild congestive failure and chronic interstitial change. The above report was generated using voice recognition software. It may contain grammatical, syntax or spelling errors. Electronically signed by: Jerad Patel M.D. 06/18/2017 3:18 PM Dictated Date/Time: 06/18/2017 3:17 PM The status of this report is Signed. Draft = Not yet reviewed or approved by Radiologist. Signed = Reviewed and approved by Radiologist. Laboratory Results 06/18/17 14:20 Red Blood Count 2.81, Mean Corpuscular Volume 98.6, Mean Corpuscular Hemoglobin 29.9, Mean Corpuscular Hemoglobin Concent 30.3, Mean Platelet Volume 8.7, Neutrophils (%) (Auto) 78.6, Lymphocytes (%) (Auto) 12.9, Monocytes (%) (Auto) 5.2, Eosinophils (%) (Auto) 2.8, Basophils (%) (Auto) 0.2, Neutrophils # (Auto) 11.83, Lymphocytes # (Auto) 1.95, Monocytes # (Auto) 0.78, Eosinophils # (Auto) 0.42, Basophils # (Auto) 0.03 06/18/17 14:20 Test 06/18/17 14:15 06/18/17 14:20 06/18/17 14:21 Influenza Type A (RT-PCR) Neg for Influ A (NEG) Influenza Type B (RT-PCR) Neg for Influ B (NEG) White Blood Count 15.06 K/uL (4.8-10.8) Red Blood Count 2.81 M/uL (4.2-5.4) Hemoglobin 8.4 g/dL (12.0-16.0) Hematocrit 27.7 % (37-47) Mean Corpuscular Volume 98.6 fL (80-100) Mean Corpuscular Hemoglobin 29.9 pg (25-34) Mean Corpuscular Hemoglobin Concent 30.3 g/dl (32-36) Platelet Count 202 K/uL (130-400) Mean Platelet Volume 8.7 fL (7.4-10.4) Neutrophils (%) (Auto) 78.6 % Lymphocytes (%) (Auto) 12.9 % Monocytes (%) (Auto) 5.2 % Eosinophils (%) (Auto) 2.8 % Basophils (%) (Auto) 0.2 % Neutrophils # (Auto) 11.83 K/uL (1.4-6.5) Lymphocytes # (Auto) 1.95 K/uL (1.2-3.4) Monocytes # (Auto) 0.78 K/uL (0.11-0.59) Eosinophils # (Auto) 0.42 K/uL (0-0.5) Basophils # (Auto) 0.03 K/uL (0-0.2) RDW Standard Deviation 52.5 fL (36.4-46.3) RDW Coefficient of Variation 14.8 % (11.5-14.5) Immature Granulocyte % (Auto) 0.3 % Immature Granulocyte # (Auto) 0.05 K/uL (0.00-0.02) Anisocytosis PRESENT Anion Gap 1.0 mmol/L (3-11) Est Creatinine Clear Calc Drug Dose 45.9 ml/min Estimated GFR () 42.8 Estimated GFR (Non- 36.9 BUN/Creatinine Ratio 20.3 (10-20) Calcium Level 9.4 mg/dl (8.5-10.1) Total Bilirubin 0.3 mg/dl (0.2-1) Aspartate Amino Transf (AST/SGOT) 7 U/L (15-37) Alanine Aminotransferase (ALT/SGPT) 12 U/L (12-78) Alkaline Phosphatase 83 U/L (45-117) Troponin I < 0.015 ng/ml (0-0.045) Total Protein 7.3 gm/dl (6.4-8.2) Albumin 2.6 gm/dl (3.4-5.0) Globulin 4.7 gm/dl (2.5-4.0) Albumin/Globulin Ratio 0.6 (0.9-2) Prothrombin Time 11.0 SECONDS (9.0-12.0) Prothromb Time International Ratio 1.0 (0.9-1.1) Medications Administered Medications (Trade) Dose Ordered Sig/Rupinder Route Start Time Stop Time Status Last Admin Dose Admin Furosemide (Lasix Inj) 40 mg NOW STAT IV 06/18/17 15:32 06/18/17 15:33 DC 06/18/17 16:00 40 MG Levofloxacin (Levaquin / D5W) 500 mg NOW ONCE IV 06/18/17 16:00 06/18/17 16:01 DC 06/18/17 16:05 500 MG ECG Indication: SOB/dyspnea Rate (beats per minute): 80 Rhythm: normal sinus Findings: other (slight T-wave inversion noted in V1 and V2) ED Course Patient was seen and examined Vital signs including blood pressure were reviewed medications list was verified with patient Labs were obtained, and a saline lock was established The patient was given an hour-long DuoNeb Imaging was performed and reviewed She was ordered 1 dose of Levaquin 500 mg IV and Lasix 40 mg IV A Niño catheter was inserted The patient was reassessed. She was feeling no better. We discussed the results of her workup. The case was also discussed with my attending physician, Dr. Mustafa, who is in agreement with my plan. I then discussed the case with case management. And subsequently I spoke with the [facility], who kindly agreed to admit the patient for further workup and treatment Medical Decision Differential diagnosis: COPD exacerbation, bronchitis, pneumonia, CHF exacerbation, influenza, other viral illness, cardiac arrhythmia This patient is a 66-year-old female that presents emergency department with complaints of shortness of breath. On exam, she is significantly wheezy. She was given Solu-Medrol 125 mg IV in route in addition to a DuoNeb treatment. The patient was given an additional DuoNeb treatment in the emergency department with minimal relief. Her workup shows leukocytosis. She is also mildly anemic. Chest x-ray is consistent with mild fluid overload. She does have a history of CHF. The patient was treated with Levaquin for possible bronchitis/COPD exacerbation. She was also given 1 dose of Lasix. The patient did not have significant relief from these medications. I do not comfortable sending the patient home. I believe she needs to be admitted to the hospital for further workup and treatment. She is in agreement with this plan. This chart was completed in part utilizing [employer] Speech Voice Recognition software. Attempts were made to minimize the grammatical errors, random word insertions, pronoun errors and incomplete sentences. Any formal questions or concerns about the content, text or information contained within the body of this dictation should be directly addressed to the provider for clarification. Medication Reconcilliation Current Medication List: was personally reviewed by me Blood Pressure Screening Patient's blood pressure: Normal blood pressure Consults Consulting Physician: Abi ragsdaleists Impression Primary Impression: Acute on chronic respiratory failure Departure Information Referrals Babak Melendez M.D.([facility]) (PCP) Patient Instructions [facility]
[2017-06-18 14:35] LABS: BASO % 0.2 %; BASO ABS # 0.03 K/uL (0-0.2); EOS % 2.8 %; HEMATOCRIT 27.7 % (37-47); IG% 0.3 %; LYMPH % 12.9 %; LYMPH ABS # 1.95 K/uL (1.2-3.4); MEAN CELL VOLUME 98.6 fL (80-100); MEAN CORPUSCULAR HEMOGLOBIN 29.9 pg (25-34); MEAN CORPUSCULAR HGB CONC 30.3 g/dl (32-36); MEAN PLATELET VOLUME 8.7 fL (7.4-10.4); MONO % 5.2 %; NEUT % 78.6 %; PLATELET COUNT 202 K/uL (130-400); RED BLOOD COUNT 2.81 M/uL (4.2-5.4); WHITE BLOOD COUNT 15.06 K/uL (4.8-10.8)
[2017-06-18 15:05] LABS: INFLUENZA A PCR Neg for Influ A (NEG); INFLUENZA B PCR Neg for Influ B (NEG)
[2017-06-18 15:07] LABS: ALB/GLOB RATIO 0.6 (0.9-2); ALKALINE PHOSPHATASE 83 U/L (45-117); ALT/SGPT 12 U/L (12-78); AST/SGOT 7 U/L (15-37); BLOOD UREA NITROGEN 29 mg/dl (7-18); BUN/CREATININE RATIO 20.3 (10-20); CALCIUM 9.4 mg/dl (8.5-10.1); CARBON DIOXIDE 41 mmol/L (21-32); CHLORIDE 95 mmol/L (98-107); CREATININE 1.45 mg/dl (0.60-1.20); GLUCOSE 113 mg/dl (70-99); POTASSIUM 3.6 mmol/L (3.5-5.1); SODIUM 137 mmol/L (136-145)
--- NOTE | 2017-06-18 15:19 | DIAGNOSTIC IMAGING REPORT ---
CHEST ONE VIEW PORTABLE CLINICAL HISTORY: SOB cough hx COPD dyspnea COMPARISON STUDY: 02/19/2017 FINDINGS: Moderate stable cardiomegaly. Diffuse prominence of the pulmonary interstitium as well as pulmonary vasculature. This is unchanged from the prior study. Prior right shoulder arthroplasty. IMPRESSION: Stable cardiomegaly with components of mild congestive failure and chronic interstitial change. The above report was generated using voice recognition software. It may contain grammatical, syntax or spelling errors. Electronically signed by: Jerad Patel M.D. 06/18/2017 3:18 PM Dictated Date/Time: 06/18/2017 3:17 PM
[2017-06-18 15:21] LABS: ANISOCYTOSIS PRESENT; COMPLETE YES
[2017-06-18] MEDS ORDERED: FUROSEMIDE 40 MG/4 ML VIAL IV STA (15:32)
[2017-06-18] MEDS ORDERED: LEVAQUIN 500MG / 100ML D5W IV ONE (16:00)
[2017-06-18] MEDS ORDERED: BENZ100C84 PO (16:04)
[2017-06-18] MEDS ORDERED: FLUT1INH7 INH (16:04)
[2017-06-18] MEDS ORDERED: ALBINS/ INH (16:04)
[2017-06-18] MEDS ORDERED: UMEC1INH INH (16:04)
[2017-06-18] MEDS ORDERED: VNTHFA/IN INH (16:04)
[2017-06-18] MEDS ORDERED: BISO5TAB3 PO (16:04)
[2017-06-18] MEDS ORDERED: AMIO200T4 PO (16:04)
[2017-06-18] MEDS ORDERED: POTA20TA16 PO (16:04)
[2017-06-18] MEDS ORDERED: DULO60CA44 PO (16:04)
[2017-06-18] MEDS ORDERED: ROPI5TAB PO (16:04)
[2017-06-18] MEDS ORDERED: ZNTT/150 PO (16:04)
[2017-06-18] MEDS ORDERED: ACETAMINOPHEN 325 MG TAB PO PRN (16:30)
[2017-06-18] MEDS ORDERED: ALBUTEROL HFA 8 GM INHALER INH PRN (16:30)
[2017-06-18] MEDS ORDERED: BENZONATATE 100MG CAP PO PRN (16:30)
--- NOTE | 2017-06-18 17:40 | History and Physical ---
History & Physical Date & Time of Service: Jun 18, 2017 at 17:20 Chief Complaint: SOB Primary Care Physician: Babak Melendez M.D.([facility]) History of Present Illness Source: patient, clinic records, hospital records This is a 66yo F with PMH of chronic hypoxic respiratory failure 2/2 COPD (on 4L home O2), chronic diastolic HF, SIMONA (on cpap), paroxysmal A Fib, HTN, CKD IV , morbid obesity and other problems listed below who presents with worsening SOB x 4 days. Follows with [facility] for pulmonology (Sonam Olivier PA-C). Per patient, recently had a COPD exacerbation and completed a steroid course last week. [place] better until 4 days ago, when she started to feel SOB at rest (can ambulate around home on O2 without SOB at baseline). Had associated chills, productive cough with white sputum and occasional pleuritic chest pain. Has been taking most of her medications at home but felt too fatigued to do nebulizer treatments. Reached out to pulm clinic today and was encouraged to come to ER for further evaluation. Also has a history of CHF. States that while she is unsure of any recent weight gain, she has been drinking more fluids. Denies dietary changes. Is currently breathing comfortably on 6L NC. Feels better after multiple nebulizer treatments. Denies fever, chills, sore throat, nasal congestion, chest pain, palpitations. abdominal pain, nausea, vomiting, LE swelling. Lives with her daughter, Noreen, who manages her medications. Past Medical/Surgical History Medical Problems: (1) Asthma Status: Chronic (2) CHF (congestive heart failure) Permanent Comment: diastolic Status: Chronic (3) Chronic respiratory failure Status: Chronic (4) CKD (chronic kidney disease), stage IV Status: Chronic (5) COPD (chronic obstructive pulmonary disease) Status: Chronic (6) Depression Status: Chronic (7) Dyslipidemia Status: Chronic (8) GERD (gastroesophageal reflux disease) Status: Chronic (9) HTN (hypertension) Status: Chronic (10) EVONNE (iron deficiency anemia) Status: Chronic (11) Lumbar spinal stenosis Status: Chronic (12) Morbid obesity Status: Chronic (13) Myocardial infarction Permanent Comment: per patient, details unknown Status: Chronic (14) Obesity hypoventilation syndrome Status: Chronic (15) Paroxysmal a-fib Status: Chronic Surgical Problems: (1) History of appendectomy Status: Chronic (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 (3) 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 (4) Hx of cholecystectomy Status: Chronic (5) S/P cervical spinal fusion Status: Chronic (6) S/P wrist surgery Status: Chronic Family History Diabetes mellitus MOTHER FH: CAD (coronary artery disease) MOTHER SISTER Social History Smoking Status: Former Smoker Drug Use: none Marital Status: single Housing status: lives with family Occupational Status: retired Immunizations History of Influenza Vaccine: Yes Influenza Vaccine Date: May 19, 2016 History of Tetanus Vaccine?: Yes Tetanus Immunization Date: Jan 11, 2008 History of Pneumococcal: Yes Pneumococcal Date: May 19, 2016 Multi-Drug 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 Allergies Coded Allergies: Adhesives (Verified Allergy, Severe, RED RASH, 06/18/17) Latex1 -Allergic Contact Dermititis (Verified Adverse Reaction, Mild, TAPE -SORE, 06/18/17) Morphine (Verified Adverse Reaction, Mild, DELUSIONS, 06/18/17) Home Medications Scheduled Albuterol Hfa (Ventolin Hfa), 2-4 PUFFS INH Q6H Albuterol Sulf (Proventil 0.083% 2.5MG/3ML), 2.5 MG INH QID Allopurinol (Zyloprim), 300 MG PO DAILY Amiodarone Hcl (Cordarone), 200 MG PO DAILY Aspirin (Aspirin Ec), 81 MG PO DAILY Atorvastatin (Lipitor), 20 MG PO DAILY Bisoprolol Fumarate (Zebeta), 5 MG PO DAILY Cholecalciferol (Vitamin D3), 2,000 UNIT PO DAILY Duloxetine Hcl (Cymbalta), 60 MG PO DAILY Ferrous Sulfate (Kp Ferrous Sulfate), 1 TAB PO DAILY Fluticasone Furoate-Vilanterol (Breo Ellipta 200-25 Mcg/INH), 1 PUFF INH DAILY Gabapentin (Neurontin), 300 MG PO TID Levothyroxine Sodium (Synthroid), 88 MCG PO DAILY Metolazone (Metolazone), 2.5 MG PO UD Metoprolol Succinate (Toprol Xl), 50 MG PO DAILY Multivitamins/Minerals (Certavite/Antioxidants), 1 TAB PO DAILY Potassium Ext Rel (Klor-Con), 20 MEQ PO BID Propafenone Hcl (Propafenone Hcl), 150 MG PO TID Ranitidine (Zantac), 150 MG PO BID Ropinirole (Requip), 5 MG PO DAILY Sertraline (Zoloft), 25 MG PO DAILY Umeclidinium [place] (Incruse Ellipta), 1 PUFF INH DAILY Scheduled PRN Acetaminophen (Tylenol), 650 MG PO Q4H PRN for Pain or Fever Benzonatate (Tessalon Perles), 1 CAP PO TID PRN for Cough Miscellaneous Medications Iron Combinations (Iron Complex), Unknown Dose PO Review of Systems Ten systems reviewed and negative except as noted in the HPI. Physical Exam Vital Signs Date Time Temp Pulse Resp B/P (MAP) Pulse Ox O2 Delivery O2 Flow Rate FiO2 06/18/17 17:14 94 20 118/50 97 Nasal Cannula 4.0 06/18/17 16:08 92 20 157/68 99 Nasal Cannula 4.0 06/18/17 15:07 86 20 145/70 100 Nebulizer 06/18/17 13:58 76 06/18/17 13:58 99 Nasal Cannula 6.0 06/18/17 13:52 99 Nasal Cannula 6.0 06/18/17 13:52 36.7 84 24 126/60 99 Nasal Cannula 6.0 General Appearance: no apparent distress, + obese (breathing comfortably on NC O2) Head: normocephalic, atraumatic Eyes: normal inspection, PERRL, sclerae normal ENT: normal ENT inspection, hearing grossly normal, pharynx normal (moist mucous membranes ) Neck: supple, no adenopathy, trachea midline Respiratory/Chest: chest non-tender, normal breath sounds, + crackles ( Bibasilar crackles. No wheezing ) Cardiovascular: no murmur, normal peripheral pulses, + tachycardia Abdomen/GI: non tender, soft, no organomegaly Genitourinary - Female: + pertinent finding (valentine in place ) Extremities/Musculoskelatal: normal inspection, normal capillary refill, no pedal edema, + pertinent finding (Trace edema to knees bilaterally ) Neurologic/Psych: no motor/sensory deficits, alert, normal mood/affect, oriented x 3 Skin: normal color, warm/dry Diagnostics Laboratory Results Results Past 24 Hours Test 06/18/17 14:15 06/18/17 14:20 06/18/17 15:15 06/18/17 16:29 Range/Units Influenza Type A (RT-PCR) Neg for Influ A NEG Influenza Type B (RT-PCR) Neg for Influ B NEG White Blood Count 15.06 4.8-10.8 K/uL Red Blood Count 2.81 4.2-5.4 M/uL Hemoglobin 8.4 12.0-16.0 g/dL Hematocrit 27.7 37-47 % Mean Corpuscular Volume 98.6 80-100 fL Mean Corpuscular Hemoglobin 29.9 25-34 pg Mean Corpuscular Hemoglobin Concent 30.3 32-36 g/dl Platelet Count 202 130-400 K/uL Mean Platelet Volume 8.7 7.4-10.4 fL Neutrophils (%) (Auto) 78.6 % Lymphocytes (%) (Auto) 12.9 % Monocytes (%) (Auto) 5.2 % Eosinophils (%) (Auto) 2.8 % Basophils (%) (Auto) 0.2 % Neutrophils # (Auto) 11.83 1.4-6.5 K/uL Lymphocytes # (Auto) 1.95 1.2-3.4 K/uL Monocytes # (Auto) 0.78 0.11-0.59 K/uL Eosinophils # (Auto) 0.42 0-0.5 K/uL Basophils # (Auto) 0.03 0-0.2 K/uL RDW Standard Deviation 52.5 36.4-46.3 fL RDW Coefficient of Variation 14.8 11.5-14.5 % Immature Granulocyte % (Auto) 0.3 % Immature Granulocyte # (Auto) 0.05 0.00-0.02 K/uL Anisocytosis PRESENT Sodium Level 137 136-145 mmol/L Potassium Level 3.6 3.5-5.1 mmol/L Chloride Level 95 98-107 mmol/L Carbon Dioxide Level 41 21-32 mmol/L Anion Gap 1.0 3-11 mmol/L Blood Urea Nitrogen 29 7-18 mg/dl Creatinine 1.45 0.60-1.20 mg/dl Est Creatinine Clear Calc Drug Dose 45.9 ml/min Estimated GFR () 42.8 Estimated GFR (Non- 36.9 BUN/Creatinine Ratio 20.3 10-20 Random Glucose 113 70-99 mg/dl Calcium Level 9.4 8.5-10.1 mg/dl Total Bilirubin 0.3 0.2-1 mg/dl Aspartate Amino Transf (AST/SGOT) 7 15-37 U/L Alanine Aminotransferase (ALT/SGPT) 12 12-78 U/L Alkaline Phosphatase 83 45-117 U/L Troponin I < 0.015 0-0.045 ng/ml Total Protein 7.3 6.4-8.2 gm/dl Albumin 2.6 3.4-5.0 gm/dl Globulin 4.7 2.5-4.0 gm/dl Albumin/Globulin Ratio 0.6 0.9-2 Diagnostic Radiology CXR: IMPRESSION: Stable cardiomegaly with components of mild congestive failure and chronic interstitial change. EKG Normal sinus rhythm with sinus arrhythmia Incomplete right bundle branch block Nonspecific T wave abnormality Abnormal ECG When compared with ECG of 19-FEB-2017 12:42, No significant change was found No change from prior EKG Impression Assessment and Plan This is a 66yo F with PMH of chronic hypoxic respiratory failure 2/2 COPD (on 4L home O2), chronic diastolic HF, SIMONA (on cpap), paroxysmal A Fib, HTN, CKD IV , morbid obesity who presents with worsening SOB x 4 days. Acute on chronic hypoxemic respiratory failure: -2/2 COPD exacerbation -Leukocytosis of 15 -Received 125mg solu-medrol and duonebs en route to ER -Continue with 60mg solu-medrol Q8, Levaquin, duonebs -Cont home inhalers -O2 per protocol -ABG pending -Pulm consulted -Sputum cultures pending -PT/OT for conditioning Acute on chronic diastolic HF: -CXR with presence of mild CHF -Faint bibasilar crackles on lung exam -Given 40mg IV lasix in ER -Cont home losartan, statin, metoprolol, bumex -[place]ent[place] placed, strict Is&Os -Daily weights, Na restricted diet -Repeat CXR in AM Diarrhea: -Reports chronic diarrhea -C diff tox pending -Continue probiotics SIMONA: -CPAP ordered qHS Paroxysmal A Fib: -Normal sinus rhythm on EKG -Cont metoprolol, amiodarone CKD IV: -Cr of 1.45, GFR of 36.9 on admission -At baseline Anemia of chronic disease: -Baseline hgb 8-9 -Hgb of 8.4 today -Continue iron supplement -Monitor HTN: -Continue losartan, metoprolol Depression: -Cont sertraline Hypothyroidism: -Cont levothyroxine Chronic back pain: -Cont tramadol, gabapentin DVT Ppx: Code status: FULL PCP: Nora Dispo: Admitted to telemetry. Discharge planning ordered Tried to contact patient's daughter to discuss med rec (patient is unclear on some medications) but unable to reach her this evening. Noreen: [phone] Patient seen in collaboration with Dr. Larson. Please see addendum. ATTENDING ADDENDUM : 66 yo f with hx of advanced COPD on 4 L home 02 , presents with worsening of SOB in past few days had audible wheeze pt was given 1 hr long neb tx in ER , 125 mg IV solu medrol will be admitted to tele cont IV solu medrol 60 mg Iv Q 8hrs neb tx empiric abx with Rocephin /Zithromax Pulmonology eval requested Kandy Larson MD Level of Care Telemetry Resuscitation Status FULL RESUSCITATION VTE Prophylaxis VTE Risk Assessment Done? Y/N: Yes Risk Level: Moderate Given or contraindicated: Unfractionated heparin SQ
[2017-06-18 17:43] VITALS: BP 141/60; PULSE 102; TEMP 36.9; O2SAT 97; Ht 162.6 cm; Wt 109.2 kg
[2017-06-18] MEDS ORDERED: LACTOBACILLUS ACIDOPHILUS 1 GM PACK PO SCH (17:43)
[2017-06-18] MEDS ORDERED: ONDANSETRON INJ 2 MG/ML 2 ML VIAL IV PRN (18:00)
[2017-06-18] MEDS ORDERED: LEVOFLOXACIN CONSULT ACTIVE PRN (18:30)
[2017-06-18 19:05] VITALS: BP 124/87; PULSE 102; TEMP 36.9; O2SAT 96
[2017-06-18 19:15] VITALS: PULSE 100; O2SAT 97
[2017-06-18] MEDS: ALBUT/IPRATROP 3MG/0.5MG NEB 3 ML VIAL INH SCH (19:18)
[2017-06-18 19:35] LABS: ALLEN TEST POS (POS); ARTERIAL BLD GAS O2 SATURATION 93.8 % (90-95); ARTERIAL BLOOD GAS BASE EXCESS 10.8 mEq/L (-9-1.8); ARTERIAL BLOOD GAS HCO3 37 mmol/L (19-24); ARTERIAL BLOOD GAS PO2 85 mm/Hg (80-95); O2 ADMINISTRATION 4 LITERS
[2017-06-18] MEDS: METHYLPREDNISOLONE IV 60 MG in SYRINGE 0 ML IV SCH (20:54)
[2017-06-18] MEDS: POTASSIUM CHLORIDE 20 MEQ TABCR PO SCH (20:55)
[2017-06-18] MEDS: GABAPENTIN 300 MG CAP PO SCH (20:55)
[2017-06-18] MEDS: LACTOBACILLUS ACIDOPHILUS 1 GM PACK PO SCH (20:55)
[2017-06-18] MEDS: PROPAFENONE HCL 150 MG TAB PO SCH (20:56)
[2017-06-18] MEDS: RANITIDINE HCL 150 MG TAB PO SCH (20:57)
[2017-06-18] MEDS: HEPARIN SOD 5000 UNIT/0.5 ML CARP SQ SCH (21:03)
[2017-06-18] MEDS: TRAMADOL HCL 50 MG TAB PO PRN (22:10)
[2017-06-18 23:17] LABS: URINE APPEARANCE CLOUDY (CLEAR); URINE BILIRUBIN NEG (NEG); URINE COLOR YELLOW; URINE EPITHELIAL CELL AUTO 0-5 /lpf (0-5); URINE NITRITE NEG (NEG); URINE SPECIFIC GRAVITY 1.016 (1.000-1.030); UROBILINOGEN NEG (NEG); ZZURINE CULT IF INDIC CATH NO
[2017-06-18 23:20] LABS: MANUAL MICROSCOPIC REQUIRED? NO; REVIEW REQ? NO
[2017-06-18 23:59] VITALS: BP 132/61; PULSE 86; TEMP 36.5; O2SAT 96
[2017-06-19] VITALS (13 sets, daily range): BP systolic 107–145; BP diastolic 65–77; PULSE 76–99; TEMP 36.3–36.7; O2SAT 93–98
[2017-06-19] MEDS: TRAMADOL HCL 50 MG TAB PO PRN ×2 (02:30→19:47)
[2017-06-19] MEDS: METHYLPREDNISOLONE IV 60 MG in SYRINGE 0 ML IV SCH (05:10)
[2017-06-19] MEDS: LEVOTHYROXINE 88 MCG TAB PO SCH (05:12)
[2017-06-19] MEDS: HEPARIN SOD 5000 UNIT/0.5 ML CARP SQ SCH ×3 (05:14→22:26)
[2017-06-19 06:55] LABS: HEMATOCRIT 27.9 % (37-47); MEAN CELL VOLUME 96.2 fL (80-100); MEAN CORPUSCULAR HEMOGLOBIN 29.7 pg (25-34); MEAN CORPUSCULAR HGB CONC 30.8 g/dl (32-36); MEAN PLATELET VOLUME 8.9 fL (7.4-10.4); PLATELET COUNT 217 K/uL (130-400)
[2017-06-19 07:30] LABS: BUN/CREATININE RATIO 22.3 (10-20); CALCIUM 9.5 mg/dl (8.5-10.1); CREATININE 1.66 mg/dl (0.60-1.20)
[2017-06-19] MEDS: CHOLECALCIFEROL 1000 INTER.UNIT TAB PO SCH (07:53)
[2017-06-19] MEDS: ROPINIROLE HCL 5 MG TAB PO SCH (07:55)
[2017-06-19] MEDS: BISOPROLOL FUMARATE 5 MG TAB PO SCH (07:55)
[2017-06-19] MEDS: PROPAFENONE HCL 150 MG TAB PO SCH ×3 (07:55→19:45)
[2017-06-19] MEDS: FERROUS SULFATE 325 MG TAB PO SCH (07:55)
[2017-06-19] MEDS: LEVOFLOXACIN 250 MG TAB PO SCH (07:55)
[2017-06-19] MEDS: SERTRALINE HCL 50 MG TAB PO SCH (07:55)
[2017-06-19] MEDS: GABAPENTIN 300 MG CAP PO SCH ×3 (07:55→19:45)
[2017-06-19] MEDS: LACTOBACILLUS ACIDOPHILUS 1 GM PACK PO SCH ×3 (07:55→17:00)
[2017-06-19] MEDS: POTASSIUM CHLORIDE 20 MEQ TABCR PO SCH ×2 (07:55→19:45)
[2017-06-19] MEDS: ASPIRIN 81 MG ECTAB PO SCH (07:56)
[2017-06-19] MEDS: DULOXETINE HCL 60 MG CAP PO SCH (07:56)
[2017-06-19] MEDS: METOPROLOL SUCC 50MG EXT REL TAB PO SCH (07:56)
[2017-06-19] MEDS: CEROVITE ADV FORMULA TAB PO SCH (07:56)
[2017-06-19] MEDS: ALLOPURINOL 300 MG TAB PO SCH (07:56)
[2017-06-19] MEDS: RANITIDINE HCL 150 MG TAB PO SCH ×2 (07:56→19:44)
[2017-06-19] MEDS: ATORVASTATIN 20 MG TAB PO SCH (07:56)
[2017-06-19] MEDS: AMIODARONE 200 MG TAB PO SCH (07:56)
[2017-06-19] MEDS: ALBUT/IPRATROP 3MG/0.5MG NEB 3 ML VIAL INH SCH ×4 (08:00→19:07)
[2017-06-19] MEDS ORDERED: HYDROmorphone INJ 0.5 MG/0.5 ML SYR IV PRN (09:45)
[2017-06-19] MEDS ORDERED: HYDROmorphone INJ 0.5 MG/0.5 ML SYR ONE (09:55)
[2017-06-19] MEDS ORDERED: PNEUMOCOCCAL ADMINISTRATION CHARGE ONE (10:45)
[2017-06-19] MEDS ORDERED: INFLUENZA VIRUS QUAD VACCINE 0.5 ML SYR IM. ONE (10:45)
[2017-06-19] MEDS ORDERED: INFLUENZA ADMINISTRATION CHARGE ONE (10:45)
[2017-06-19] MEDS ORDERED: PNEUMOCOCCAL POLYSACCHARIDES 25 MCG/0.5 ML VIAL/SYR IM. ONE (10:45)
--- NOTE | 2017-06-19 11:33 | Pulmonary Consultation ---
History General Date of Service: Jun 18, 2017. Stated Complaint: Copd Exacerbation HPI The patient is a 66 year old female who presents to [facility] with complaints of Copd Exacerbation. The patient's primary care provider is Babak Melendez M.D.(RAMEZ). Mrs. Lee is a 66 year old female with severe COPD on 4L NC well known to the pulmonary service who presents with 5 day history of worsening shortness of breath. She also carries the diagnoses of morbid obesity with a BMI of 42, obesity hypoventilation syndrome and severe obstructive sleep apnea. She states that she's had chronic cough is increased over the last 3 days. She states that she has chronic productive sputum that is clear and has not changed in color and amount. She states that she's been compliant with her medications. She was seen in pulmonary clinic on 05/26/2017. She was started on [place] 200/25 and increase in the 62.5 g. She was also given prednisone taper and doxycycline 100 mg twice a day at that time. She is on long-term oxygen of 3-4 L/m. An BiPAP of 14/6 with a rate of 10+4 L nasal cannula at night. She states that she has been using her BiPAP intermittently at night. She denies any fevers or chills. She denies any orthopnea or paroxysmal nocturnal dyspnea. She states that she is compliant with her medications. She states that since about 1 week ago she's had chronic lower back pain radiating to bilateral lower extremities associated numbness and tingling. She denies any urinary incontinence or bowel incontinence. She denies any urinary or gastrointestinal symptoms. At the time my evaluation this morning, she is awake alert oriented 3. She appears to be in a significant amount of pain. She states that she was given the medications overnight without any significant relief. She refused to wear BiPAP overnight. In the ED, her initial vital signs were 36.7, pulse 84, respiratory rate 24, blood pressure 126/60 saturating 99% on 6 L nasal cannula. Her initial examination was significant for diffuse wheezes in all lung valdez. Her laboratory data showed WBC 15, hemoglobin 8.4, platelet count of 202. Chemistry showed a sodium of 137, potassium 3.6, chloride 95, CO2 41, BUN 29 and creatinine of 1.45. Troponin was < 0.015. Influenza A and B was negative. Her baseline carbon dioxide level appears ranges between 38-42. Her CXR showed stable cardiomegaly with components of mild congestive failure and chronic interstitial change.EKG showed normal sinus rhythm with a rate 80 bpm, no ST changes noted. In the ER, she was given Duoneb and Solumedrol 125 mg. Repeat ABG pH 7.40, pCO2 62, PO2 pO2 85, HCO3 37, SaO2 93.8% on 4 L. She was admitted for acute on chronic hypercapnic respiratory failure. She was given Lasix overnight and urine output has been approximately 700 mL. Historian: patient Severity: moderate, severe Complaint Status: persistent Quality of Pain: sharp Method of Injury: unknown Review of Systems Eyes: reports: as stated in HPI ENT: reports: as stated in HPI Cardiovascular: reports: as stated in HPI Respiratory: reports: cough, orthopnea, shortness of breath, sputum production , AHN, denies: stridor, wheezing, cyanosis, PND, hemoptysis Gastrointestinal: reports: nausea Genitourinary - Female: reports: no symptoms Musculoskeletal: reports: joint pain, back pain radiating to bilateral lower extremities Integumentary: reports: rash, itching, dryness Neurologic: reports: no symptoms Psychiatric: reports: no symptoms Endocrine: no symptoms Hematologic / Lymphatic: no symptoms Allergic / Immunologic: no symptoms Past Medical History Past Medical History: Past Medical History: Severe chronic obstructive lung disease Obesity hypo-ventilation syndrome Congestive heart failure Hypertension Stage IV chronic kidney disease GERD CAD Hyperlipidemia Paroxysmal atrial fibrillation Gout 6 mm nodule in the right upper lobe Iron deficiency anemia Right rib fractures hypothyroidism Past Medical History: A Fib, congestive heart failure, COPD, depression, high cholesterol, hypothyroidism, other Past Surgical History: Past Surgical History: Total hip replacement of right hip Total replacement of right shoulder joint Cholecystectomy Cervical spinal fusion Wrist surgery Past Surgical History: cholecystectomy Family History Diabetes mellitus MOTHER FH: CAD (coronary artery disease) MOTHER SISTER Mother from coronary artery disease and diabetes Father had CAD but in a motor vehicle accident. One sister who is from myocardial infarction. Currently her daughter assists her with activities of daily living. Other: Other Social History Social History Hx Tobacco Use In Past Year?: No Smoking Status: Former Smoker Alcohol: never Drug Use: none Marital status: single Housing status: lives with family Occupational Status: retired Hx Tobacco Use In Past Year?: No Smoking Status: Former Smoker Alcohol: never Drug Use: none Marital status: single Housing status: lives with family Occupational Status: retired Immunizations History of Influenza Vaccine: Yes Influenza Vaccine Date: May 19, 2016 History of Tetanus Vaccine?: Yes Tetanus Immunization Date: Jan 11, 2008 History of Pneumococcal: Yes Pneumococcal Date: May 19, 2016 History of MDRO History of MDRO: Yes Type of MDRO: VRE Allergies Coded Allergies: Adhesives (Verified Allergy, Severe, RED RASH, 06/18/17) Latex1 -Allergic Contact Dermititis (Verified Adverse Reaction, Mild, TAPE -SORE, 06/18/17) Morphine (Verified Adverse Reaction, Mild, DELUSIONS, 06/18/17) Current Medications Reported Home Medications Medications Dose Route/Sig Max Daily Dose Days Date Category Dose Instructions Klor-Con (Potassium Chloride) 20 Meq Tabcr 20 Meq PO BID 06/18/17 Reported Ventolin Hfa (Albuterol) 200 Puffs/97211 Mcg Aers 2-4 Puffs INH Q6H 06/18/17 Reported Proventil 0.083% 2.5MG/3ML (Albuterol Sulf) 2.5 Mg/3 Ml Nebu 2.5 Mg INH QID 06/18/17 Reported Zebeta (Bisoprolol Fumarate) 5 Mg Tab 5 Mg PO DAILY 06/18/17 Reported Zantac (Ranitidine HCl) 150 Mg Tab 150 Mg PO BID 06/18/17 Reported Requip (Ropinirole HCl) 5 Mg Tab 5 Mg PO DAILY 06/18/17 Reported Breo Ellipta 200-25 Mcg/INH (Fluticasone Furoate-Vilanterol) 1 Inh Inh 1 Puff INH DAILY 06/18/17 Reported Incruse Ellipta (Umeclidinium [place]) 62.5 Mcg/Inh Inh 1 Puff INH DAILY 06/18/17 Reported Cymbalta (Duloxetine Hcl) 60 Mg Cap 60 Mg PO DAILY 06/18/17 Reported Tessalon Perles (Benzonatate) 100 Mg Cap 1 Cap PO TID PRN 06/18/17 Reported Cordarone (Amiodarone Hcl) 200 Mg Tab 200 Mg PO DAILY 06/18/17 Reported Zoloft (Sertraline HCl) 25 Mg Tab 25 Mg PO DAILY 02/19/17 Reported Metolazone 2.5 Mg Tab 2.5 Mg PO UD 02/19/17 Reported 2.5 mg by mouth twice per week on Wednesday and Wednesday. Iron Complex (Iron Combinations) Unknown Strength Cap Unknown Dose PO 02/19/17 Reported Vitamin D3 (Cholecalciferol) 1,000 Unit Tab 2,000 Unit PO DAILY 02/19/17 Reported Tylenol (Acetaminophen) 325 Mg Tab 650 Mg PO Q4H PRN 08/31/16 Reported Kp Ferrous Sulfate (Ferrous Sulfate) 325 Mg Tab 1 Tab PO DAILY 30 08/31/16 Reported Lipitor (Atorvastatin) 20 Mg Tab 20 Mg PO DAILY 06/01/16 Reported Certavite/Antioxidants (Multivitamins/Minerals) 1 Tab Tab 1 Tab PO DAILY 06/01/16 Reported Propafenone Hcl 150 Mg Tab 150 Mg PO TID 05/29/16 Reported Zyloprim (Allopurinol) 300 Mg Tab 300 Mg PO DAILY 05/29/16 Reported Synthroid (Levothyroxine Sodium) 88 Mcg Tab 88 Mcg PO DAILY 05/29/16 Reported Toprol Xl (Metoprolol Succinate) 50 Mg Tab 50 Mg PO DAILY 06/08/13 Reported Neurontin (Gabapentin) 300 Mg Cap 300 Mg PO TID 06/08/13 Reported Aspirin Ec (Aspirin) 81 Mg Tab 81 Mg PO DAILY 04/03/13 Reported Physical Physical Exam Vital Signs: Date Time Temp Pulse Resp B/P (MAP) Pulse Ox O2 Delivery O2 Flow Rate FiO2 06/18/17 17:43 36.9 102 28 141/60 97 Nasal Cannula 4.0 06/18/17 17:14 94 20 118/50 97 Nasal Cannula 4.0 06/18/17 16:08 92 20 157/68 99 Nasal Cannula 4.0 06/18/17 15:07 86 20 145/70 100 Nebulizer 06/18/17 13:58 76 06/18/17 13:58 99 Nasal Cannula 6.0 06/18/17 13:52 99 Nasal Cannula 6.0 06/18/17 13:52 36.7 84 24 126/60 99 Nasal Cannula 6.0 General Appearance: moderate distress, obese Head: NORMOCEPHALIC, ATRAUMATIC Eyes: PERRLA, NO DISCHARGE, EOMI, SCLERAE NORMAL ENT: NORMAL THROAT EXAM Neck: NORMAL RANGE OF MOTION, NO TENDERNESS, TRACHEA MIDLINE Respiratory: BREATH SOUNDS NORMAL, CLEAR TO AUSCULTATION, NO TENDERNESS Cardiovasular: REGULAR RATE/RHYTHM, NORMAL S1S2, NO M/G/R Abdomen: NON TENDER, NORMAL BOWEL SOUNDS Back: NORMAL INSPECTION, NO MIDLINE TENDERNESS, NO CVA TENDERNESS, NO PARAVERTEBRAL TTP Upper Extremities: NO EDEMA, NO DEFORMITY Lower Extremities: NO EDEMA, NO DEFORMITY, NORMAL ROM Pulses: brachial (R), dorsalis pedis (R) (2+), dorsalis pedis (L) (2+) Neuro: ALERT, ORIENTED x 3, NORMAL MOTOR EXAM, NORMAL SENSATION, NORMAL MEMORY Psychiatric: NORMAL AFFECT, NO SUICIDAL IDEATION, CONTRACTS FOR SAFETY Diagnostics Labs Results Past 24 Hours Test 06/18/17 14:15 06/18/17 14:20 06/18/17 14:21 06/18/17 18:06 Range/Units Influenza Type A (RT-PCR) Neg for Influ A NEG Influenza Type B (RT-PCR) Neg for Influ B NEG White Blood Count 15.06 4.8-10.8 K/uL Red Blood Count 2.81 4.2-5.4 M/uL Hemoglobin 8.4 12.0-16.0 g/dL Hematocrit 27.7 37-47 % Mean Corpuscular Volume 98.6 80-100 fL Mean Corpuscular Hemoglobin 29.9 25-34 pg Mean Corpuscular Hemoglobin Concent 30.3 32-36 g/dl Platelet Count 202 130-400 K/uL Mean Platelet Volume 8.7 7.4-10.4 fL Neutrophils (%) (Auto) 78.6 % Lymphocytes (%) (Auto) 12.9 % Monocytes (%) (Auto) 5.2 % Eosinophils (%) (Auto) 2.8 % Basophils (%) (Auto) 0.2 % Neutrophils # (Auto) 11.83 1.4-6.5 K/uL Lymphocytes # (Auto) 1.95 1.2-3.4 K/uL Monocytes # (Auto) 0.78 0.11-0.59 K/uL Eosinophils # (Auto) 0.42 0-0.5 K/uL Basophils # (Auto) 0.03 0-0.2 K/uL RDW Standard Deviation 52.5 36.4-46.3 fL RDW Coefficient of Variation 14.8 11.5-14.5 % Immature Granulocyte % (Auto) 0.3 % Immature Granulocyte # (Auto) 0.05 0.00-0.02 K/uL Anisocytosis PRESENT Sodium Level 137 136-145 mmol/L Potassium Level 3.6 3.5-5.1 mmol/L Chloride Level 95 98-107 mmol/L Carbon Dioxide Level 41 21-32 mmol/L Anion Gap 1.0 3-11 mmol/L Blood Urea Nitrogen 29 7-18 mg/dl Creatinine 1.45 0.60-1.20 mg/dl Est Creatinine Clear Calc Drug Dose 45.9 ml/min Estimated GFR () 42.8 Estimated GFR (Non- 36.9 BUN/Creatinine Ratio 20.3 10-20 Random Glucose 113 70-99 mg/dl Calcium Level 9.4 8.5-10.1 mg/dl Total Bilirubin 0.3 0.2-1 mg/dl Aspartate Amino Transf (AST/SGOT) 7 15-37 U/L Alanine Aminotransferase (ALT/SGPT) 12 12-78 U/L Alkaline Phosphatase 83 45-117 U/L Troponin I < 0.015 0-0.045 ng/ml Total Protein 7.3 6.4-8.2 gm/dl Albumin 2.6 3.4-5.0 gm/dl Globulin 4.7 2.5-4.0 gm/dl Albumin/Globulin Ratio 0.6 0.9-2 Prothrombin Time 11.0 9.0-12.0 SECONDS Prothromb Time International Ratio 1.0 0.9-1.1 Test 06/18/17 18:30 Range/Units Diagnostic Radiology CHEST ONE VIEW PORTABLE CLINICAL HISTORY: SOB cough hx COPD dyspnea COMPARISON STUDY: 02/19/2017 FINDINGS: Moderate stable cardiomegaly. Diffuse prominence of the pulmonary interstitium as well as pulmonary vasculature. This is unchanged from the prior study. Prior right shoulder arthroplasty. IMPRESSION: Stable cardiomegaly with components of mild congestive failure and chronic interstitial change. Impression Assessment and Plan Chronic hypercapnic respiratory failure Severe COPD SIMONA Obesity hypoventilation syndrome CKD Stage IV Back with sciatica Acute on chronic hypercapnic respiratory failure is multifactorial in nature. She is now presenting with lower back pain with radiation to her bilateral lower extremities. She was recently treated for his COPD exacerbation as outpatient. She denies any changes in sputum production however is increased dyspnea on exertion. She is currently at her baseline oxygen level. ABG appears compensated. Recommendations. Continue with BIPAP at night and oxygen supplementation to maintain a SaO2 btw 88-92% Optimize pain control per primary team. Avoid sedatives and narcotics if at all possible. Continue with incentive spirometry. Continue with antibiotics for 5-7 days. Continue with corticosteroids taper as tolerated Continue with albuterol and ipratropium nebulizers Continue with inhaled corticosteroids Encourage ambulation as tolerated. She should follow pulmonary clinic post hospital discharge. Discussed with Dr. Frias. Advanced Directives Living Will: none
[2017-06-19] MEDS: METHYLPREDNISOLONE IV 40 MG in SYRINGE 0 ML IV SCH ×2 (15:19→19:46)
--- NOTE | 2017-06-19 18:02 | Progress Note ---
Internal Med Progress Note Date of Service: Jun 19, 2017. Provider Documentation: SUBJECTIVE: complains of severe back pain sob and cough improved afebrile no nausea requesting for stronger pain med OBJECTIVE: Vital Signs-as noted below Exam: General-alert and awake and not in distress ENT- normal hearing Neck-no neck masses Lungs-cta b/l no wheezing no crackles present Heart-s1 and s2 heard regular rate and rhythm no murmurs Abdomen-soft BS present non tender no distension Extremities- no edema no erythema Neuro-alert and awake moves extremities Lab data as noted below. ASSESSMENT & PLAN: This is a 66yo F with PMH of chronic hypoxic respiratory failure 2/2 COPD (on 4L home O2), chronic diastolic HF, SIMONA (on cpap), paroxysmal A Fib, HTN, CKD IV , morbid obesity who presents with worsening SOB x 4 days. Acute on chronic hypoxemic respiratory failure: 2/2 COPD exacerbation -Leukocytosis of 15 on iv steroids, nebs and Levaquin appreciate pulmonary inputs bipap q hs improving Acute on chronic diastolic HF: CXR with presence of mild CHF -Faint bibasilar crackles on lung exam received one dose of iv lsix in Er improved continue home diuretics will monitor Diarrhea: Reports chronic diarrhea C diff tox pending To Continue probiotics SIMONA: PAP ordered qHS Paroxysmal A Fib: Normal sinus rhythm on EKG on metoprolol, amiodarone Not on anticoagulation CKD IV: Cr of 1.45, GFR of 36.9 on admission at baseline Anemia of chronic disease: Baseline hgb 8-9 Hgb of 8.6 today on iron supplement will f/u labs HTN: on losartan, metoprolol will monitor. Depression: on sertraline Hypothyroidism: on levothyroxine Chronic back pain: on tramadol, gabapentin iv Dilaudid prn DVT Ppx: Hep sub q Code status: FULL DISPOSITION To be determined Vital Signs: Date Time Temp Pulse Resp B/P (MAP) Pulse Ox O2 Delivery O2 Flow Rate FiO2 06/19/17 15:07 95 16 98 Nasal Cannula 4.0 06/19/17 14:40 36.7 84 20 141/70 (93) 97 Nasal Cannula 4.0 06/19/17 14:19 89 93 06/19/17 11:22 36.6 78 20 145/71 (95) 96 06/19/17 09:46 36.4 76 22 98 4.0 06/19/17 08:04 Nasal Cannula 4.0 06/19/17 07:02 36.4 76 22 134/74 (94) 98 Nasal Cannula 4.0 06/19/17 07:01 99 16 97 Nasal Cannula 4.0 06/19/17 04:00 Nasal Cannula 4.0 06/19/17 03:06 36.7 84 20 114/65 (81) 97 Nasal Cannula 4.0 06/19/17 00:00 Nasal Cannula 4.0 06/18/17 23:59 36.5 86 20 132/61 (84) 96 Nasal Cannula 4.0 06/18/17 20:00 Nasal Cannula 4.0 06/18/17 19:15 100 16 97 Nasal Cannula 4.0 06/18/17 19:05 36.9 102 22 124/87 (99) 96 Nasal Cannula 4.0 06/18/17 17:43 36.9 102 28 141/60 97 Nasal Cannula 4.0 Lab Results: Results Past 24 Hours Test 06/18/17 19:15 06/18/17 22:20 06/19/17 06:42 Range/Units Arterial Blood pH 7.40 7.35-7.45 Arterial Blood Partial Pressure CO2 62 35-46 mmHg Arterial Blood Partial Pressure O2 85 80-95 mm/Hg Arterial Blood HCO3 37 19-24 mmol/L Arterial Blood Oxygen Saturation 93.8 90-95 % Arterial Blood Base Excess 10.8 -9-1.8 mEq/L Arterial Blood Gas Delivery 4 LITERS Alvaro Test POS POS Urine Color YELLOW Urine Appearance CLOUDY CLEAR Urine pH 5.0 4.5-7.5 Urine Specific [place] 1.016 1.000-1.030 Urine Protein NEG NEG Urine Glucose (UA) NEG NEG Urine Ketones NEG NEG Urine Occult Blood TRACE NEG Urine Nitrite NEG NEG Urine Bilirubin NEG NEG Urine Urobilinogen NEG NEG Urine Leukocyte Esterase NEG NEG Urine WBC (Auto) 0 0-5 /hpf Urine RBC (Auto) 0-4 0-4 /hpf Urine Hyaline Casts (Auto) 1-5 0-5 /lpf Urine Epithelial Cells (Auto) 0-5 0-5 /lpf Urine Bacteria (Auto) NEG NEG White Blood Count 15.60 4.8-10.8 K/uL Red Blood Count 2.90 4.2-5.4 M/uL Hemoglobin 8.6 12.0-16.0 g/dL Hematocrit 27.9 37-47 % Mean Corpuscular Volume 96.2 80-100 fL Mean Corpuscular Hemoglobin 29.7 25-34 pg Mean Corpuscular Hemoglobin Concent 30.8 32-36 g/dl RDW Standard Deviation 49.9 36.4-46.3 fL RDW Coefficient of Variation 14.2 11.5-14.5 % Platelet Count 217 130-400 K/uL Mean Platelet Volume 8.9 7.4-10.4 fL Sodium Level 135 136-145 mmol/L Potassium Level 4.0 3.5-5.1 mmol/L Chloride Level 93 98-107 mmol/L Carbon Dioxide Level 36 21-32 mmol/L Anion Gap 6.0 3-11 mmol/L Blood Urea Nitrogen 37 7-18 mg/dl Creatinine 1.66 0.60-1.20 mg/dl Est Creatinine Clear Calc Drug Dose 39.6 ml/min Estimated GFR () 36.3 Estimated GFR (Non- 31.3 BUN/Creatinine Ratio 22.3 10-20 Random Glucose 176 70-99 mg/dl Calcium Level 9.5 8.5-10.1 mg/dl Microbiology Results 06/19/17 Gram Stain - Final, Resulted 06/19/17 Sputum Culture, Resulted Pending
[2017-06-20] VITALS (9 sets, daily range): BP systolic 147–152; BP diastolic 70–82; PULSE 68–76; TEMP 36.3–36.5; O2SAT 97–100
[2017-06-20] MEDS: OXYCODONE/ACETAMINOPHEN 5-325 TAB PO PRN (00:16)
[2017-06-20] MEDS: LEVOTHYROXINE 88 MCG TAB PO SCH (05:54)
[2017-06-20] MEDS: HEPARIN SOD 5000 UNIT/0.5 ML CARP SQ SCH ×3 (05:56→21:34)
[2017-06-20 06:55] LABS: BUN/CREATININE RATIO 28.3 (10-20); CALCIUM 9.9 mg/dl (8.5-10.1); CREATININE 1.7 mg/dl (0.60-1.20); POTASSIUM 4.6 mmol/L (3.5-5.1)
[2017-06-20 06:57] LABS: HEMATOCRIT 29.3 % (37-47); MEAN CORPUSCULAR HEMOGLOBIN 29.8 pg (25-34); MEAN CORPUSCULAR HGB CONC 30.4 g/dl (32-36); MEAN PLATELET VOLUME 9.4 fL (7.4-10.4); PLATELET COUNT 257 K/uL (130-400); RED BLOOD COUNT 2.99 M/uL (4.2-5.4); WHITE BLOOD COUNT 24.97 K/uL (4.8-10.8)
[2017-06-20] MEDS: ALBUT/IPRATROP 3MG/0.5MG NEB 3 ML VIAL INH SCH ×4 (07:01→18:58)
[2017-06-20] MEDS: METHYLPREDNISOLONE IV 40 MG in SYRINGE 0 ML IV SCH ×3 (08:43→14:07)
[2017-06-20] MEDS: DULOXETINE HCL 60 MG CAP PO SCH (08:44)
[2017-06-20] MEDS: AMIODARONE 200 MG TAB PO SCH (08:44)
[2017-06-20] MEDS: ATORVASTATIN 20 MG TAB PO SCH (08:44)
[2017-06-20] MEDS: FERROUS SULFATE 325 MG TAB PO SCH (08:44)
[2017-06-20] MEDS: METOPROLOL SUCC 50MG EXT REL TAB PO SCH (08:46)
[2017-06-20] MEDS: PROPAFENONE HCL 150 MG TAB PO SCH ×3 (08:46→21:30)
[2017-06-20] MEDS: RANITIDINE HCL 150 MG TAB PO SCH ×2 (08:46→21:31)
[2017-06-20] MEDS: GABAPENTIN 300 MG CAP PO SCH ×3 (08:46→21:29)
[2017-06-20] MEDS: SERTRALINE HCL 50 MG TAB PO SCH (08:47)
[2017-06-20] MEDS: CEROVITE ADV FORMULA TAB PO SCH (08:48)
[2017-06-20] MEDS: ASPIRIN 81 MG ECTAB PO SCH (08:49)
[2017-06-20] MEDS: POTASSIUM CHLORIDE 20 MEQ TABCR PO SCH ×2 (08:49→21:30)
[2017-06-20] MEDS: BISOPROLOL FUMARATE 5 MG TAB PO SCH (08:49)
[2017-06-20] MEDS: CHOLECALCIFEROL 1000 INTER.UNIT TAB PO SCH (08:50)
[2017-06-20] MEDS: ALLOPURINOL 300 MG TAB PO SCH (08:50)
[2017-06-20] MEDS: ROPINIROLE HCL 5 MG TAB PO SCH (08:50)
[2017-06-20] MEDS: LACTOBACILLUS ACIDOPHILUS 1 GM PACK PO SCH ×3 (08:51→17:00)
[2017-06-20] MEDS: LEVOFLOXACIN 250 MG TAB PO SCH (10:02)
--- NOTE | 2017-06-20 12:59 | Pulmonology Progress Note ---
Pulmonary Progress Note Date of Service Jun 20, 2017. Attending Dr. Niño Subjective Patient seen and examined. She is out of bed to chair. She states that she's feeling better. She denies any shortness of breath, chest pain or cough. She tolerated BiPAP well overnight. Her main complaint is lower back pain which appears to be relatively controlled at this point Objective Vital signs reviewed. Afebrile, saturating well on 4 L nasal cannula. Gen.: Awake alert oriented 3, no acute distress. Speaking in full sentences CVS: S1-S2, regular rate and rhythm Lungs: Decreased breath sounds bilaterally, crackles at right lung base Abdomen: Obese nontender, nondistended bowel sounds positive Extremities: No cyanosis, no clubbing, no edema Labs reviewed. Imaging reviewed. Medication reviewed. Assessment & Plan Chronic hypercapnic respiratory failure Severe COPD SIMONA Obesity hypoventilation syndrome CKD Stage IV Back with sciatica Acute on chronic hypercapnic respiratory failure is multifactorial in nature. She is now presenting with lower back pain with radiation to her bilateral lower extremities. She was recently treated for his COPD exacerbation as outpatient. She denies any changes in sputum production however is increased dyspnea on exertion. She is currently at her baseline oxygen level. ABG appears compensated. Recommendations. Continue with BIPAP at night and oxygen supplementation to maintain a SaO2 btw 88-92% Continue with adequate pain control for lower back. Avoid sedatives and narcotics if at all possible. Continue with incentive spirometry. Continue with antibiotics for 5-7 days. I would switch over to prednisone 40 mg today and taper. Continue with albuterol and ipratropium nebulizers Continue with inhaled corticosteroids Encourage ambulation as tolerated. She should follow pulmonary clinic post hospital discharge. I will sign off case today please contact pulmonary any further questions or concerns. Data Medications: Current Inpatient Medications Medications (Trade) Dose Ordered Sig/Rupinder Route Start Time Stop Time Status Last Admin Dose Admin Acetaminophen (Tylenol Tab) 650 mg Q4H PRN PO 06/18/17 16:30 07/18/17 16:29 06/18/17 20:53 650 MG Albuterol (Ventolin Hfa Inhaler) 2 puffs Q6H PRN INH 06/18/17 16:30 07/18/17 16:29 Allopurinol (Zyloprim Tab) 300 mg DAILY PO 06/19/17 09:00 07/19/17 08:59 06/20/17 08:50 300 MG Amiodarone HCl (Cordarone Tab) 200 mg DAILY PO 06/19/17 09:00 07/19/17 08:59 06/20/17 08:44 200 MG Aspirin (Ecotrin Tab) 81 mg DAILY PO 06/19/17 09:00 07/19/17 08:59 06/20/17 08:49 81 MG Atorvastatin Calcium (Lipitor Tab) 20 mg DAILY PO 06/19/17 09:00 07/19/17 08:59 06/20/17 08:44 20 MG Benzonatate (Tessalon Perles Cap) 100 mg TID PRN PO 06/18/17 16:30 07/18/17 16:29 06/18/17 20:57 100 MG Cholecalciferol (Vitamin D Tab) 2,000 inter.unit DAILY PO 06/19/17 09:00 07/19/17 08:59 06/20/17 08:50 2,000 INTER.UNIT Duloxetine HCl (Cymbalta Cap) 60 mg DAILY PO 06/19/17 09:00 07/19/17 08:59 06/20/17 08:44 60 MG Gabapentin (Neurontin Cap) 300 mg TID PO 06/18/17 21:00 07/18/17 20:59 06/20/17 08:46 300 MG Levothyroxine Sodium (Synthroid Tab) 88 mcg DAILYBB PO 06/19/17 06:00 07/19/17 06:59 06/20/17 05:54 88 MCG Metolazone (Zaroxolyn Tab) 2.5 mg MoFr@0900 PO 06/21/17 09:00 07/21/17 08:59 Metoprolol Succinate (Toprol Xl Tab) 50 mg DAILY PO 06/19/17 09:00 07/19/17 08:59 06/20/17 08:46 50 MG Multivitamins/ Minerals (Multivitamin W/ Minerals Tab) 1 tab DAILY PO 06/19/17 09:00 07/19/17 08:59 06/20/17 08:48 1 TAB Potassium Chloride (Klor-Con Tab) 20 meq BID PO 06/18/17 21:00 07/18/17 20:59 06/20/17 08:49 20 MEQ Propafenone HCl (Rythmol Tab) 150 mg TID PO 06/18/17 21:00 07/18/17 20:59 06/20/17 08:46 150 MG Ranitidine HCl (zANTac TAB) 150 mg BID PO 06/18/17 21:00 07/18/17 20:59 06/20/17 08:46 150 MG Ropinirole HCl (Requip Tab) 5 mg DAILY PO 06/19/17 09:00 07/19/17 08:59 06/20/17 08:50 5 MG Sertraline HCl (Zoloft Tab) 25 mg DAILY PO 06/19/17 09:00 07/19/17 08:59 06/20/17 08:47 25 MG Bisoprolol Fumarate (Bisoprolol Fumarate) 5 mg DAILY PO 06/19/17 09:00 07/19/17 08:59 06/20/17 08:49 5 MG Ferrous Sulfate (Feosol Tab) 325 mg DAILY PO 06/19/17 09:00 07/19/17 08:59 06/20/17 08:44 325 MG Miscellaneous Information (Order Awaiting Action) 1 ea QS N/A 06/19/17 00:00 07/19/17 00:00 Miscellaneous Information (Order Awaiting Action) 1 ea QS N/A 06/19/17 00:00 07/19/17 00:00 Albuterol/ Ipratropium (Duoneb) 3 ml QIDR INH 06/18/17 20:00 07/18/17 19:59 06/20/17 11:51 3 ML Levofloxacin (Levaquin Tab) 250 mg DAILY@11 PO 06/19/17 11:00 06/24/17 11:01 06/20/17 10:02 250 MG Lactobacillus Acidophilus (Lactinex Granules Pack) 1 gm TIDM PO 06/18/17 17:43 07/18/17 17:59 06/20/17 08:51 1 GM Heparin Sodium (Porcine) (Heparin Sq 5000 Unit/0.5ml) 5,000 unit Q8 SQ 06/18/17 22:00 07/18/17 21:59 06/20/17 05:56 5,000 UNIT Ondansetron HCl (Zofran Inj) 4 mg Q6H PRN IV 06/18/17 18:00 07/18/17 17:59 06/20/17 12:22 4 MG Levofloxacin (Consult) 1 ea UD PRN N/A 06/18/17 18:30 07/18/17 18:29 Tramadol HCl (Ultram Tab) 50 mg Q4H PRN PO 06/18/17 21:45 07/18/17 21:44 06/19/17 19:47 50 MG Oxycodone/ Acetaminophen (Percocet 5-325mg Tab) 1 tab Q4H PRN PO 06/19/17 09:45 07/03/17 09:44 06/20/17 00:16 1 TAB Hydromorphone HCl (Dilaudid Inj) 0.5 mg Q4 PRN IV 06/19/17 09:45 07/03/17 09:44 Methylprednisolone Sodium Succinate 40 mg/Syringe 0.64 ml @ 1.5 mls/min TID IV 06/19/17 14:00 07/19/17 13:59 06/20/17 10:01 1.5 MLS/MIN Vital Signs: Date Time Temp Pulse Resp B/P (MAP) Pulse Ox O2 Delivery O2 Flow Rate FiO2 06/20/17 07:43 36.5 68 22 152/77 (102) 100 Nasal Cannula 4.0 06/20/17 00:00 CPAP 4.0 06/19/17 23:54 36.3 78 20 107/77 (87) 06/19/17 21:30 78 98 2.0 06/19/17 19:45 82 128/72 (90) 98 4.0 06/19/17 19:30 Room Air 06/19/17 19:08 88 16 98 Nasal Cannula 4.0 06/19/17 16:00 98 Nasal Cannula 4.0 06/19/17 15:07 95 16 98 Nasal Cannula 4.0 06/19/17 14:40 36.7 84 20 141/70 (93) 97 Nasal Cannula 4.0 06/19/17 14:19 89 93 Laboratory Results: Last 24 Hours Test 06/20/17 05:56 White Blood Count 24.97 K/uL Red Blood Count 2.99 M/uL Hemoglobin 8.9 g/dL Hematocrit 29.3 % Mean Corpuscular Volume 98.0 fL Mean Corpuscular Hemoglobin 29.8 pg Mean Corpuscular Hemoglobin Concent 30.4 g/dl RDW Standard Deviation 51.7 fL RDW Coefficient of Variation 14.5 % Platelet Count 257 K/uL Mean Platelet Volume 9.4 fL Sodium Level 136 mmol/L Potassium Level 4.6 mmol/L Chloride Level 93 mmol/L Carbon Dioxide Level 39 mmol/L Anion Gap 3.0 mmol/L Blood Urea Nitrogen 48 mg/dl Creatinine 1.70 mg/dl Est Creatinine Clear Calc Drug Dose 38.7 ml/min Estimated GFR () 35.3 Estimated GFR (Non- 30.5 BUN/Creatinine Ratio 28.3 Random Glucose 149 mg/dl Calcium Level 9.9 mg/dl
--- NOTE | 2017-06-20 17:35 | Progress Note ---
Internal Med Progress Note Date of Service: Jun 20, 2017. Provider Documentation: SUBJECTIVE: back pain improved sob and cough improved afebrile no nausea requesting for stronger pain med OBJECTIVE: Vital Signs-as noted below Exam: General-alert and awake and not in distress ENT- normal hearing Neck-no neck masses Lungs-cta b/l no wheezing no crackles present Heart-s1 and s2 heard regular rate and rhythm no murmurs Abdomen-soft BS present non tender no distension Extremities- no edema no erythema Neuro-alert and awake moves extremities Lab data as noted below. ASSESSMENT & PLAN: This is a 66yo F with PMH of chronic hypoxic respiratory failure 2/2 COPD (on 4L home O2), chronic diastolic HF, SIMONA (on cpap), paroxysmal A Fib, HTN, CKD IV , morbid obesity who presents with worsening SOB x 4 days. Acute on chronic hypoxemic respiratory failure: 2/2 COPD exacerbation -Leukocytosis of 15 on iv steroids, nebs and Levaquin appreciate pulmonary inputs bipap q hs improved tapering steroids will monitor Acute on chronic diastolic HF: CXR with presence of mild CHF -Faint bibasilar crackles on lung exam received one dose of iv lsix in Er improved continue home diuretics stable will monitor Diarrhea: Reports chronic diarrhea C diff tox pending To Continue probiotics SIMONA: PAP ordered qHS Paroxysmal A Fib: Normal sinus rhythm on EKG on metoprolol, amiodarone Not on anticoagulation CKD IV: Cr of 1.45, GFR of 36.9 on admission at baseline Anemia of chronic disease: Baseline hgb 8-9 Hgb of 8.9 today on iron supplement will f/u labs HTN: on losartan, metoprolol will monitor. Depression: on sertraline Hypothyroidism: on levothyroxine Chronic back pain: on tramadol, gabapentin iv Dilaudid prn DVT Ppx: Hep sub q Code status: FULL DISPOSITION pt/ot possible d/c in am if stable Vital Signs: Date Time Temp Pulse Resp B/P (MAP) Pulse Ox O2 Delivery O2 Flow Rate FiO2 06/20/17 15:03 36.3 72 20 150/82 (104) 100 06/20/17 11:31 69 16 97 Nasal Cannula 4.0 06/20/17 08:30 100 Nasal Cannula 4.0 06/20/17 07:43 36.5 68 22 152/77 (102) 100 Nasal Cannula 4.0 06/20/17 07:25 68 16 100 Nasal Cannula 4.0 06/20/17 00:00 CPAP 4.0 06/19/17 23:54 36.3 78 20 107/77 (87) 06/19/17 21:30 78 98 2.0 06/19/17 19:45 82 128/72 (90) 98 4.0 06/19/17 19:30 Room Air 06/19/17 19:08 88 16 98 Nasal Cannula 4.0 Lab Results: Results Past 24 Hours Test 06/20/17 05:56 Range/Units White Blood Count 24.97 4.8-10.8 K/uL Red Blood Count 2.99 4.2-5.4 M/uL Hemoglobin 8.9 12.0-16.0 g/dL Hematocrit 29.3 37-47 % Mean Corpuscular Volume 98.0 80-100 fL Mean Corpuscular Hemoglobin 29.8 25-34 pg Mean Corpuscular Hemoglobin Concent 30.4 32-36 g/dl RDW Standard Deviation 51.7 36.4-46.3 fL RDW Coefficient of Variation 14.5 11.5-14.5 % Platelet Count 257 130-400 K/uL Mean Platelet Volume 9.4 7.4-10.4 fL Sodium Level 136 136-145 mmol/L Potassium Level 4.6 3.5-5.1 mmol/L Chloride Level 93 98-107 mmol/L Carbon Dioxide Level 39 21-32 mmol/L Anion Gap 3.0 3-11 mmol/L Blood Urea Nitrogen 48 7-18 mg/dl Creatinine 1.70 0.60-1.20 mg/dl Est Creatinine Clear Calc Drug Dose 38.7 ml/min Estimated GFR () 35.3 Estimated GFR (Non- 30.5 BUN/Creatinine Ratio 28.3 10-20 Random Glucose 149 70-99 mg/dl Calcium Level 9.9 8.5-10.1 mg/dl
[2017-06-21] VITALS (13 sets, daily range): BP systolic 130–145; BP diastolic 62–74; PULSE 66–113; TEMP 36–36.6; O2SAT 56–99
[2017-06-21] MEDS: TRAMADOL HCL 50 MG TAB PO PRN (01:16)
[2017-06-21] MEDS: OXYCODONE/ACETAMINOPHEN 5-325 TAB PO PRN (03:02)
[2017-06-21] MEDS: HEPARIN SOD 5000 UNIT/0.5 ML CARP SQ SCH ×3 (06:02→22:06)
[2017-06-21] MEDS: LEVOTHYROXINE 88 MCG TAB PO SCH (06:04)
[2017-06-21 06:51] LABS: MEAN CORPUSCULAR HEMOGLOBIN 29.7 pg (25-34); MEAN PLATELET VOLUME 9.4 fL (7.4-10.4); PLATELET COUNT 280 K/uL (130-400); RED BLOOD COUNT 3.13 M/uL (4.2-5.4); WHITE BLOOD COUNT 22.83 K/uL (4.8-10.8)
[2017-06-21 07:15] LABS: BUN/CREATININE RATIO 33.7 (10-20); CREATININE 1.56 mg/dl (0.60-1.20)
[2017-06-21] MEDS: ALBUT/IPRATROP 3MG/0.5MG NEB 3 ML VIAL INH SCH ×4 (07:22→19:57)
[2017-06-21] MEDS: AMIODARONE 200 MG TAB PO SCH (08:08)
[2017-06-21] MEDS: GABAPENTIN 300 MG CAP PO SCH ×3 (08:08→19:56)
[2017-06-21] MEDS: DULOXETINE HCL 60 MG CAP PO SCH (08:08)
[2017-06-21] MEDS: CHOLECALCIFEROL 1000 INTER.UNIT TAB PO SCH (08:08)
[2017-06-21] MEDS: ALLOPURINOL 300 MG TAB PO SCH (08:08)
[2017-06-21] MEDS: ATORVASTATIN 20 MG TAB PO SCH (08:08)
[2017-06-21] MEDS: ASPIRIN 81 MG ECTAB PO SCH (08:08)
[2017-06-21] MEDS: FERROUS SULFATE 325 MG TAB PO SCH (08:08)
[2017-06-21] MEDS: ROPINIROLE HCL 5 MG TAB PO SCH (08:09)
[2017-06-21] MEDS: POTASSIUM CHLORIDE 20 MEQ TABCR PO SCH ×2 (08:09→19:56)
[2017-06-21] MEDS: PROPAFENONE HCL 150 MG TAB PO SCH ×3 (08:09→19:57)
[2017-06-21] MEDS: METOPROLOL SUCC 50MG EXT REL TAB PO SCH (08:10)
[2017-06-21] MEDS: BISOPROLOL FUMARATE 5 MG TAB PO SCH (08:10)
[2017-06-21] MEDS: CEROVITE ADV FORMULA TAB PO SCH (08:10)
[2017-06-21] MEDS: RANITIDINE HCL 150 MG TAB PO SCH ×2 (08:10→19:57)
[2017-06-21] MEDS: SERTRALINE HCL 50 MG TAB PO SCH (08:10)
[2017-06-21] MEDS: LACTOBACILLUS ACIDOPHILUS 1 GM PACK PO SCH ×3 (08:11→17:56)
[2017-06-21] MEDS ORDERED: METOLAZONE 2.5 MG TAB PO SCH (09:00)
[2017-06-21] MEDS: LEVOFLOXACIN 250 MG TAB PO SCH (11:08)
[2017-06-21 16:44] LABS: ALLEN TEST POS (POS); ARTERIAL BLD GAS O2 SATURATION 94.5 % (90-95); ARTERIAL BLOOD GAS BASE EXCESS 11.8 mEq/L (-9-1.8); ARTERIAL BLOOD GAS HCO3 43 mmol/L (19-24); ARTERIAL BLOOD GAS PO2 89 mm/Hg (80-95); ARTERIAL BLOOD GAS pH 7.22 (7.35-7.45); O2 ADMINISTRATION 4 LITERS
--- NOTE | 2017-06-21 18:49 | Progress Note ---
Internal Med Progress Note Date of Service: Jun 21, 2017. Provider Documentation: SUBJECTIVE: denies sob or cough afebrile no nausea denies back pain but later somewhat confused and abg shows c02 retention OBJECTIVE: Vital Signs-as noted below Exam: General-alert and awake and not in distress ENT- normal hearing Neck-no neck masses Lungs-cta b/l no wheezing no crackles present Heart-s1 and s2 heard regular rate and rhythm no murmurs Abdomen-soft BS present non tender no distension Extremities- no edema no erythema Neuro-alert and awake moves extremities Lab data as noted below. ASSESSMENT & PLAN: This is a 66yo F with PMH of chronic hypoxic respiratory failure 2/2 COPD (on 4L home O2), chronic diastolic HF, SIMONA (on cpap), paroxysmal A Fib, HTN, CKD IV , morbid obesity who presents with worsening SOB x 4 days. copd ex and co 2restention. compliance with bipap? again co2 retention today.Continue to monitor,. f/u abg and cxr. If cxr shows congestion may need more diuretics. Acute on chronic hypoxemic respiratory failure: 2/2 COPD exacerbation -Leukocytosis of 15 on iv steroids, nebs and Levaquin appreciate pulmonary inputs bipap q hs improved tapering steroids but again somewhat confused today and abg shows co2 retention question of compliance with bipap placed on bipap will repeat abg Acute on chronic diastolic HF: CXR with presence of mild CHF -Faint bibasilar crackles on lung exam received one dose of iv lsix in Er improved continue home diuretics will f/u cxr and if congested will give more Lasix will monitor Diarrhea: Reports chronic diarrhea C diff tox pending To Continue probiotics SIMONA: PAP ordered qHS Paroxysmal A Fib: Normal sinus rhythm on EKG on metoprolol, amiodarone Not on anticoagulation CKD IV: Cr of 1.45, GFR of 36.9 on admission at baseline Anemia of chronic disease: Baseline hgb 8-9 Hgb of 9.3 today on iron supplement will f/u labs HTN: on losartan, metoprolol will monitor. Depression: on sertraline Hypothyroidism: on levothyroxine Chronic back pain: on tramadol, gabapentin iv Dilaudid prn DVT Ppx: Hep sub q Code status: FULL DISPOSITION pt/ot to be determined Vital Signs: Date Time Temp Pulse Resp B/P (MAP) Pulse Ox O2 Delivery O2 Flow Rate FiO2 06/21/17 19:57 78 97 06/21/17 19:15 113 56 2.0 06/21/17 16:15 97 Nasal Cannula 3.0 06/21/17 15:35 36.5 75 20 145/74 (97) 97 Nasal Cannula 3.0 06/21/17 15:33 76 16 99 Nasal Cannula 4.0 06/21/17 11:47 72 16 96 Nasal Cannula 4.0 06/21/17 10:23 94 70 06/21/17 08:25 Nasal Cannula 4.0 06/21/17 07:35 36.6 77 22 145/64 (91) 99 Nasal Cannula 3.5 06/21/17 07:25 77 16 97 Nasal Cannula 4.0 06/21/17 00:55 36.0 70 20 130/67 (88) 94 BiPAP 06/21/17 00:00 Nasal Cannula 4.0 06/21/17 00:00 CPAP 4.0 06/20/17 22:04 71 98 2.0 06/20/17 21:32 73 18 147/70 (95) 100 Nasal Cannula Lab Results: Results Past 24 Hours Test 06/21/17 06:08 06/21/17 16:03 06/21/17 16:28 Range/Units White Blood Count 22.83 4.8-10.8 K/uL Red Blood Count 3.13 4.2-5.4 M/uL Hemoglobin 9.3 12.0-16.0 g/dL Hematocrit 31.0 37-47 % Mean Corpuscular Volume 99.0 80-100 fL Mean Corpuscular Hemoglobin 29.7 25-34 pg Mean Corpuscular Hemoglobin Concent 30.0 32-36 g/dl RDW Standard Deviation 50.3 36.4-46.3 fL RDW Coefficient of Variation 14.2 11.5-14.5 % Platelet Count 280 130-400 K/uL Mean Platelet Volume 9.4 7.4-10.4 fL Sodium Level 134 136-145 mmol/L Potassium Level 5.0 3.5-5.1 mmol/L Chloride Level 95 98-107 mmol/L Carbon Dioxide Level 37 21-32 mmol/L Anion Gap 2.0 3-11 mmol/L Blood Urea Nitrogen 53 7-18 mg/dl Creatinine 1.56 0.60-1.20 mg/dl Est Creatinine Clear Calc Drug Dose 42.4 ml/min Estimated GFR () 39.2 Estimated GFR (Non- 33.8 BUN/Creatinine Ratio 33.7 10-20 Random Glucose 117 70-99 mg/dl Calcium Level 10.0 8.5-10.1 mg/dl Bedside Glucose 156 70-90 mg/dl Arterial Blood pH 7.22 7.35-7.45 Arterial Blood Partial Pressure CO2 108 35-46 mmHg Arterial Blood Partial Pressure O2 89 80-95 mm/Hg Arterial Blood HCO3 43 19-24 mmol/L Arterial Blood Oxygen Saturation 94.5 90-95 % Arterial Blood Base Excess 11.8 -9-1.8 mEq/L Arterial Blood Gas Delivery 4 LITERS Alvaro Test POS POS
--- NOTE | 2017-06-21 20:42 | DIAGNOSTIC IMAGING REPORT ---
SINGLE VIEW CHEST CLINICAL HISTORY: CHF. FINDINGS: An AP, portable, upright chest radiograph is compared to study dated 06/18/2017. The examination is degraded by portable technique, large body habitus, and patient rotation. The heart is enlarged and there is atherosclerotic calcification of the thoracic aorta. Mild pulmonary vascular congestion persists. Trace pleural effusions are identified. Airspace opacities are seen at the left lung base. No pneumothorax is seen. The skeletal structures are osteopenic. A right shoulder arthroplasty is in place. Degenerative change is noted throughout the thoracic spine. There is evidence of previous thoracic vertebroplasty. IMPRESSION: 1. Cardiomegaly with mild persistent pulmonary vascular congestion. 2. Trace pleural effusions are identified. Airspace opacities at the left lung base likely represent atelectasis. Clinical correlation will be required. Electronically signed by: Juan J Keen M.D. 06/21/2017 8:41 PM Dictated Date/Time: 06/21/2017 8:39 PM
[2017-06-22] VITALS (14 sets, daily range): BP systolic 124–154; BP diastolic 61–81; PULSE 64–77; TEMP 36.5–37.3; O2SAT 90–99
[2017-06-22] MEDS: LEVOTHYROXINE 88 MCG TAB PO SCH (06:04)
[2017-06-22] MEDS: HEPARIN SOD 5000 UNIT/0.5 ML CARP SQ SCH ×3 (06:07→21:18)
[2017-06-22 06:09] LABS: ALLEN TEST POS (POS); ARTERIAL BLD GAS O2 SATURATION 95.6 % (90-95); ARTERIAL BLOOD GAS BASE EXCESS 9.9 mEq/L (-9-1.8); ARTERIAL BLOOD GAS HCO3 39 mmol/L (19-24); ARTERIAL BLOOD GAS PO2 97 mm/Hg (80-95); O2 ADMINISTRATION 35%
[2017-06-22 06:23] LABS: HEMATOCRIT 32.6 % (37-47); MEAN CELL VOLUME 99.4 fL (80-100); MEAN CORPUSCULAR HEMOGLOBIN 30.2 pg (25-34); MEAN CORPUSCULAR HGB CONC 30.4 g/dl (32-36); MEAN PLATELET VOLUME 9.4 fL (7.4-10.4); PLATELET COUNT 271 K/uL (130-400); RED BLOOD COUNT 3.28 M/uL (4.2-5.4); WHITE BLOOD COUNT 18.85 K/uL (4.8-10.8)
[2017-06-22 06:40] LABS: BUN/CREATININE RATIO 33.6 (10-20); CALCIUM 10.3 mg/dl (8.5-10.1); CREATININE 1.54 mg/dl (0.60-1.20); POTASSIUM 5.5 mmol/L (3.5-5.1)
[2017-06-22] MEDS: ALBUT/IPRATROP 3MG/0.5MG NEB 3 ML VIAL INH SCH ×4 (07:16→20:00)
[2017-06-22] MEDS: LACTOBACILLUS ACIDOPHILUS 1 GM PACK PO SCH ×3 (08:00→14:47)
[2017-06-22] MEDS: PROPAFENONE HCL 150 MG TAB PO SCH ×3 (08:59→21:16)
[2017-06-22] MEDS: BISOPROLOL FUMARATE 5 MG TAB PO SCH (08:59)
[2017-06-22] MEDS: CHOLECALCIFEROL 1000 INTER.UNIT TAB PO SCH (09:00)
[2017-06-22] MEDS: RANITIDINE HCL 150 MG TAB PO SCH ×2 (09:00→21:16)
[2017-06-22] MEDS: ROPINIROLE HCL 5 MG TAB PO SCH (09:00)
[2017-06-22] MEDS: FERROUS SULFATE 325 MG TAB PO SCH (09:01)
[2017-06-22] MEDS: ALLOPURINOL 300 MG TAB PO SCH (09:02)
[2017-06-22] MEDS: DULOXETINE HCL 60 MG CAP PO SCH (09:02)
[2017-06-22] MEDS: AMIODARONE 200 MG TAB PO SCH (09:02)
[2017-06-22] MEDS: ASPIRIN 81 MG ECTAB PO SCH (09:02)
[2017-06-22] MEDS: ATORVASTATIN 20 MG TAB PO SCH (09:02)
[2017-06-22] MEDS: GABAPENTIN 300 MG CAP PO SCH ×3 (09:03→21:17)
[2017-06-22] MEDS: SERTRALINE HCL 50 MG TAB PO SCH (09:03)
[2017-06-22] MEDS: METOPROLOL SUCC 50MG EXT REL TAB PO SCH (09:03)
[2017-06-22] MEDS: CEROVITE ADV FORMULA TAB PO SCH (09:03)
--- NOTE | 2017-06-22 12:54 | Progress Note ---
Progress Note Date of Service Jun 22, 2017. Progress Note Subjective Patient was seen and examined the in the AM sitting on the bed with nasal cannula. Patient denied acute discomfort. Reports that her breathing has been better compared to when she came to the hospital earlier. Reports that baseline she uses oxygen at night but does not use oxygen during the day. As per nurse, patient needed BIPAP over the night time. Later today while on nasal cannula nurse called MD reporting that patient's family at bedside and that patient not at baseline Objective On physical exam, patient lying on the bed. Awake and alert with the BIPAP mask on. Was able to follow commands appropriately. There muscle strength of upper and lower extremities intact. There were some tremors of her hands. Patient was trembling. Some small jerking motion of lower extremity. No tenderness of abdomen or chest. Bowel sounds present. No edema of extremities. Assessment Patient likely to be having symptoms from CO2 retention. Will continue BIPAP. Obtain full set of labs including arterial blood gas. Continue to monitor for symptoms. Repeating blood work to investigate whether there are electrolyte deficiencies although AM labs notable for serum potassium somewhat elevated 5.5. Will look at EKG to see if there are evidence of hyperkalemia related EKG changes. Will request telemetry bed for further monitoring Acute on chronic hypoxemic respiratory failure: 2/2 COPD exacerbation -Leukocytosis of 15 while on steroids for breathing -Hypercapnia / Obstructive sleep apnea : c/w BIPAP today or CPAP at night, trend blood gases -nebulizer treatments -pulmonary service following patient Acute on chronic diastolic HF: CXR with presence of mild CHF, s/p 1 dose of IV lasix in ER continue home diuretics does not appear to be fluid overloaded clinically Oral potassium supplements BID were held due to serum potassium 5.5 on 06/22/17 Paroxysmal A Fib history: prior normal sinus rhythm on EKG continue on metoprolol, Rythmol Not on anticoagulation at home CKD IV: monitor renal function Anemia of chronic disease: Baseline hgb 8-9 on iron supplement HTN: on losartan, metoprolol will monitor. Depression: on sertraline Hypothyroidism: on levothyroxine Chronic back pain: on tramadol, gabapentin stop narcotic medications to avoid sedation Diarrhea: Reports chronic diarrhea C diff tox test ordered prior did not result, repeating test ordered 06/22/17 To Continue probiotics DVT Ppx: Hep sub q Code status: FULL
[2017-06-22 12:55] LABS: HEMATOCRIT 30.4 % (37-47); MEAN CELL VOLUME 98.7 fL (80-100); MEAN CORPUSCULAR HEMOGLOBIN 30.5 pg (25-34); MEAN PLATELET VOLUME 9.1 fL (7.4-10.4); PLATELET COUNT 235 K/uL (130-400); RED BLOOD COUNT 3.08 M/uL (4.2-5.4); WHITE BLOOD COUNT 17.09 K/uL (4.8-10.8)
[2017-06-22 13:02] LABS: MEAN CORPUSCULAR HGB CONC 30.9 g/dl (32-36)
[2017-06-22 13:04] LABS: ALLEN TEST POS (POS); ARTERIAL BLD GAS O2 SATURATION 90.7 % (90-95); ARTERIAL BLOOD GAS BASE EXCESS 10.7 mEq/L (-9-1.8); ARTERIAL BLOOD GAS HCO3 39 mmol/L (19-24); ARTERIAL BLOOD GAS PO2 66 mm/Hg (80-95); ARTERIAL BLOOD GAS pH 7.31 (7.35-7.45); O2 ADMINISTRATION 30%
[2017-06-22 13:14] LABS: BUN/CREATININE RATIO 36.7 (10-20); CALCIUM 10.5 mg/dl (8.5-10.1); CREATININE 1.52 mg/dl (0.60-1.20); MAGNESIUM 2.5 mg/dl (1.8-2.4); POTASSIUM 5.1 mmol/L (3.5-5.1)
[2017-06-22 13:19] LABS: ALB/GLOB RATIO 0.7 (0.9-2)
[2017-06-22 13:23] LABS: THYROID STIMULATING HORMONE 0.127 uIu/ml (0.300-4.500)
[2017-06-22] MEDS: LEVOFLOXACIN 250 MG TAB PO SCH (14:45)
[2017-06-22] MEDS ORDERED: LORAZEPAM 2 MG/ML 1 ML VIAL IV ONE (19:00)
[2017-06-22] MEDS ORDERED: OPTIRAY 320 IV PRN (19:00)
--- NOTE | 2017-06-22 20:18 | DIAGNOSTIC IMAGING REPORT ---
CT OF THE CHEST WITH IV CONTRAST CLINICAL HISTORY: Hypercarbia. COPD exacerbation. COMPARISON STUDY: Chest CT September 02, 2016 and chest radiograph June 21, 2017. TECHNIQUE: Following IV administration of 89 mL of Optiray-320, helical axial images of the chest were obtained. Sagittal and coronal reconstructions were viewed as well as maximal intensity projections on an independent 3-D workstation. A dose lowering technique was utilized adhering to the principles of ALARA. CT DOSE: 852.06 mGy.cm FINDINGS: A hypodense right lobe thyroid nodule is unchanged. The heart is moderately enlarged. There is no pericardial effusion. There is borderline dilatation of the central pulmonary arteries. No pneumothorax or pleural effusion is present. Lungs are suboptimally assessed due to respiratory motion. There is mild upper lobe predominant emphysema. Bilateral lower lobe opacities with volume loss favor atelectasis. Central airways are patent. There is mild airway narrowing. No thoracic lymphadenopathy is present. Previous T6 vertebral augmentation is noted. Bilateral adrenal nodules are unchanged and benign given stability. IMPRESSION: 1. Bilateral lower lobe airspace opacity with foreign loss which favor atelectasis. 2. Mild emphysema. 3. Moderate cardiomegaly. 4. Borderline dilatation of the central pulmonary arteries which raises the possibility of pulmonary arterial hypertension. Electronically signed by: Quentin Maier M.D. 06/22/2017 8:17 PM Dictated Date/Time: 06/22/2017 8:08 PM
[2017-06-23] VITALS (15 sets, daily range): BP systolic 119–150; BP diastolic 58–91; PULSE 20–77; TEMP 36.5–37; O2SAT 92–99
[2017-06-23] MEDS: LEVOTHYROXINE 88 MCG TAB PO SCH (06:04)
[2017-06-23] MEDS: HEPARIN SOD 5000 UNIT/0.5 ML CARP SQ SCH ×3 (06:09→20:26)
[2017-06-23 06:35] LABS: VEN BLD GAS O2 SATURATION 81.1 %; VEN BLOOD GAS BASE EXCESS 12.6 mEq/L
[2017-06-23 06:50] LABS: BUN/CREATININE RATIO 33.6 (10-20); CALCIUM 9.9 mg/dl (8.5-10.1); CREATININE 1.46 mg/dl (0.60-1.20); POTASSIUM 4.5 mmol/L (3.5-5.1)
[2017-06-23 06:52] LABS: ALB/GLOB RATIO 0.7 (0.9-2)
[2017-06-23] MEDS: ALBUT/IPRATROP 3MG/0.5MG NEB 3 ML VIAL INH SCH ×4 (07:16→19:11)
[2017-06-23] MEDS: ATORVASTATIN 20 MG TAB PO SCH (08:30)
[2017-06-23] MEDS: AMIODARONE 200 MG TAB PO SCH (08:30)
[2017-06-23] MEDS: ASPIRIN 81 MG ECTAB PO SCH (08:30)
[2017-06-23] MEDS: CHOLECALCIFEROL 1000 INTER.UNIT TAB PO SCH (08:31)
[2017-06-23] MEDS: DULOXETINE HCL 60 MG CAP PO SCH (08:31)
[2017-06-23] MEDS: CEROVITE ADV FORMULA TAB PO SCH (08:31)
[2017-06-23] MEDS: GABAPENTIN 300 MG CAP PO SCH ×3 (08:31→20:27)
[2017-06-23] MEDS: BISOPROLOL FUMARATE 5 MG TAB PO SCH (08:32)
[2017-06-23] MEDS: PROPAFENONE HCL 150 MG TAB PO SCH ×3 (08:32→20:28)
[2017-06-23] MEDS: RANITIDINE HCL 150 MG TAB PO SCH ×2 (08:32→20:28)
[2017-06-23] MEDS: LACTOBACILLUS ACIDOPHILUS 1 GM PACK PO SCH ×3 (08:33→17:43)
[2017-06-23] MEDS: ALLOPURINOL 300 MG TAB PO SCH (08:33)
[2017-06-23] MEDS: ROPINIROLE HCL 5 MG TAB PO SCH (08:33)
[2017-06-23] MEDS: METOPROLOL SUCC 50MG EXT REL TAB PO SCH (08:33)
[2017-06-23] MEDS: FERROUS SULFATE 325 MG TAB PO SCH (08:35)
[2017-06-23] MEDS: SERTRALINE HCL 50 MG TAB PO SCH (08:35)
[2017-06-23] MEDS: LEVOFLOXACIN 250 MG TAB PO SCH (13:40)
--- NOTE | 2017-06-23 14:10 | ECHOCARDIOGRAM REPORT ---
*NOTICE TO RECEIVING REPUBLICAN AGENCY This information is strictly Confidential and protected under [place] law. [place] law prohibits you from making any further disclosure of this information unless further disclosure is expressly permitted by the written consent of the person to whom it pertains or is authorized by law. A general authorization for the release of medical or other information is not sufficient for this purpose. Hospital accepts no responsibility if the information is made available to any other person, INCLUDING THE PATIENT. Interpretation Summary * Name: DIONNE SAL Study Date: 06/23/2017 08:41 AM BP: 146/72 mmHg * Patient Location: [facility]\S\[id number]\S\2 HR: 64 * : 1950 (M/d/yyyy) Gender: Female Height: 64 in * Age: 67 yrs Ethnicity: [place] Weight: 239 lb * Ordering Physician: Chirag Patel * Referring Physician: Self, Referred * Performed By: Molly Ryan RDCS * * Reason For Study: Hypercarbia * BSA: 2.1 m2 * -- Conclusions -- * 1. Normal LV size, borderline concentric LVH. * 2. Normal LV systolic function. LVEF 55-60%. No regional wall motion abnormalities. * 3. Mildly dilated RV, normal RV function. * 4. Aortic valve sclerosis without stenosis. * 5. Mild to moderate pulmonary hypertension. Est. PASP 45-50 mmHg. * 6. Compared with prior study on 05/30/2016: PH is new. Procedure Details * A complete two-dimensional transthoracic echocardiogram was performed (2D, M-mode, Doppler and color flow Doppler). * A contrast injection of Definity was performed to improve assessment of LV function. * Contrast was injected into an intravenous site in the left arm. * One vial of Definity ultrasound contrast was diluted in normal saline to a total volume of 10 ml. A total of '2' ml of solution was administered during imaging. * Lot # [id number] of Definity utilized for procedure. * Expiration date . * The attending nurse who injected the contrast agent was Shantelle Izquierdo RN. Left Ventricle * The left ventricle is grossly normal size. * There is borderline concentric left ventricular hypertrophy. * Ejection Fraction = 55-60%. * No regional wall motion abnormalities noted. Right Ventricle * The right ventricle is mildly dilated. * The right ventricular systolic function is normal as assessed by tricuspid annular plane systolic excursion (TAPSE) (normal >1.5 cm). Atria * The left atrium is mildly dilated. * The right atrium is moderately dilated. * Right atrium not well visualized. Mitral Valve * The mitral valve is grossly normal. * There is no mitral valve stenosis. * Significant mitral regurgitation is absent. Tricuspid Valve * The tricuspid valve is not well visualized, but is grossly normal. * There is trace tricuspid regurgitation. Aortic Valve * The aortic valve opens well. * The aortic valve is trileaflet. * Aortic valve sclerosis mild, without significant aortic valvular stenosis. * No hemodynamically significant valvular aortic stenosis. * There is no significant aortic regurgitation. Pulmonic Valve * The pulmonary valve is inadequately visualized, but the Doppler data is adequate for interpretation. * Pulmonic stenosis is absent. * Trace pulmonic valvular regurgitation. Great Vessels * The aortic root and proximal ascending aorta are normal sized. Pericardium/Pleural * There is no pericardial effusion. Great Vessels * IVC <2.1, <50% change with respiration. Est RA 8 mmHg. Est PASP 45-50 mmHg. MMode 2D Measurements and Calculations IVSd 1.2 cm IVSs 1.4 cm LVIDd 4.9 cm LVIDs 3.5 cm LVPWd 1.1 cm LVPWs 2.2 cm IVS/LVPW 1.0 FS 27.3 % EDV(Teich) 110.4 ml ESV(Teich) 51.8 ml EF(Teich) 53.0 % EDV(cubed) 114.4 ml ESV(cubed) 43.9 ml EF(cubed) 61.6 % % IVS thick 18.7 % % LVPW thick 92.5 % LV mass(C)d 209.0 grams LV mass(C)dI 99.1 grams/m\S\2 LV mass(C)s 259.5 grams LV mass(C)sI 123.0 grams/m\S\2 SV(Teich) 58.5 ml SI(Teich) 27.7 ml/m\S\2 SV(cubed) 70.5 ml SI(cubed) 33.4 ml/m\S\2 Ao root diam 2.4 cm Ao root area 4.6 cm\S\2 ACS 1.8 cm LA dimension 3.7 cm LA/Ao 1.5 LVAd ap4 35.1 cm\S\2 LVLd ap4 8.3 cm EDV(MOD-sp4) 126.2 ml EDV(sp4-el) 126.7 ml LVAs ap4 19.2 cm\S\2 LVLs ap4 7.2 cm ESV(MOD-sp4) 45.3 ml ESV(sp4-el) 43.3 ml EF(MOD-sp4) 64.1 % EF(sp4-el) 65.8 % LVAd ap2 35.3 cm\S\2 LVLd ap2 8.6 cm EDV(MOD-sp2) 120.1 ml EDV(sp2-el) 122.7 ml LVAs ap2 20.6 cm\S\2 LVLs ap2 7.3 cm ESV(MOD-sp2) 50.0 ml ESV(sp2-el) 49.3 ml EF(MOD-sp2) 58.4 % EF(sp2-el) 59.8 % LVLd %diff 4.5 % EDV(MOD-bp) 127.1 ml LVLs %diff 0.92 % ESV(MOD-bp) 47.9 ml EF(MOD-bp) 62.3 % SV(MOD-sp4) 81.0 ml SI(MOD-sp4) 38.4 ml/m\S\2 SV(MOD-sp2) 70.2 ml SI(MOD-sp2) 33.3 ml/m\S\2 SV(MOD-bp) 79.2 ml SI(MOD-bp) 37.5 ml/m\S\2 SV(sp4-el) 83.4 ml SI(sp4-el) 39.5 ml/m\S\2 SV(sp2-el) 73.4 ml SI(sp2-el) 34.8 ml/m\S\2 Doppler Measurements and Calculations MV E max yari 107.7 cm/sec MV A max yari 81.5 cm/sec MV E/A 1.3 MV dec time 0.20 sec Ao V2 max 181.9 cm/sec Ao max PG 13.2 mmHg Ao max PG (full) 8.3 mmHg LV V1 max PG 4.9 mmHg LV V1 max 110.6 cm/sec PA V2 max 134.4 cm/sec PA max PG 7.2 mmHg PI max yari 159.5 cm/sec PI max PG 10.2 mmHg PI dec slope 159.7 cm/sec\S\2 PI P1/2t 292.6 msec TR max yari 291.8 cm/sec
--- NOTE | 2017-06-23 16:10 | DIAGNOSTIC IMAGING REPORT ---
BRAIN COMBO FOR SEIZURE HISTORY: 67 years-old Female new onset tremors new onset tremors. Acute seizure like activity. COMPARISON: Brain MRI 06/11/2016 TECHNIQUE: Multiplanar multisequence MRI the brain was obtained both with and without the use of 10.8 mL Gadavist FINDINGS: Study is very motion degraded. There is no restricted diffusion to suggest acute infarction. The midline structures including the corpus callosum, brainstem, optic chiasm, pineal and pituitary glands appear unremarkable the sagittal T1 sequence. There is no cerebellar tonsillar herniation. Degenerative changes are seen within the imaged cervical spine. No seizure focus identified. No evidence of cortical dysplasia or mesial temporal sclerosis. The bilateral mesial temporal lobes are within normal limits and appear symmetric. There is mild brain atrophy. No acute intracranial hemorrhage, midline shift, abnormal extra-axial collections, hydrocephalus or intracranial mass identified. Scattered foci of T2/FLAIR prolongation again seen within the subcortical and periventricular white matter of the cerebral hemispheres bilaterally. These findings appear stable from comparison study 06/11/2016. No abnormal intra-axial or extra-axial enhancement identified postcontrast images are nearly nondiagnostic however. Major flow voids at the level the skull base appear patent. Bilateral orbits are symmetric. Mastoid air cells and paranasal sinuses are clear. Scalp, calvarium and soft tissues are unremarkable. IMPRESSION: 1. Very motion degraded exam with several of the sequences nearly nondiagnostic. 2. No acute intracranial abnormality identified. No acute infarction, seizure focus or abnormal enhancement identified. 3. Mild atrophy with probable chronic microvascular ischemic changes, unchanged from comparison. The above report was generated using voice recognition software. It may contain grammatical, syntax or spelling errors. Electronically signed by: Ariel Shah M.D. 06/23/2017 4:08 PM Dictated Date/Time: 06/23/2017 4:01 PM
--- NOTE | 2017-06-23 17:10 | CONSULTATION REPORT ---
DATE OF CONSULTATION: 06/23/2017 CONSULTATION FOR: Dr. Patel. HISTORY OF PRESENT ILLNESS: Kwame is a 67 years old, patient of Dr. Babak Melendez and is also followed by Dr. Charlie Dickey and has a known history of chronic hypoxic respiratory failure with COPD, dependent on 4 liters of home O2; chronic diastolic heart failure, obstructive sleep apnea on CPAP, paroxysmal atrial fibrillation, hypertension, level 4 kidney disease, morbid obesity who presented back on the 18 of June with increasing weakness, shortness of breath for 4 days. She has had a recent exacerbation of her COPD, had a steroid course then started to feel worse and could not ambulate as well with her oxygen, had some sputum production and presented to the hospital and subsequently been admitted. During the course of the admission, she has had fluctuating mental status and has had a fair amount of tremulousness, which according to the family is a pattern that she has had in the past when presenting with respiratory failure and other issues. PAST MEDICAL HISTORY: Pretty much is covered above. Additional problems include chronic depression, dyslipidemia, GERD, hypertension, iron deficiency anemia, lumbar stenosis, status post myocardial infarction. PAST SURGICAL HISTORY: Surgically, she has had an appendectomy, total replacement of the right hip and right shoulder and a cholecystectomy and has had cervical spinal fusion. She has also had some wrist surgery. FAMILY HISTORY: Positive for coronary artery disease in her mother. SOCIAL HISTORY: Reveals her to be a former smoker. She is single. She lives with her daughters who care for her. IMMUNIZATIONS: Up to date. There is no history for multiple drug resistant organisms. ALLERGIES: INCLUDE ADHESIVES, LATEX AND MORPHINE. SCHEDULED MEDICATIONS AT HOME: Include albuterol, allopurinol, amiodarone, aspirin, atorvastatin, Zebeta, cholecalciferol, Cymbalta, ferrous sulfate, fluticasone, gabapentin, levothyroxine, metolazone, metoprolol, multivitamins, potassium, propafenone, ranitidine, Requip, sertraline and as-needed medications include acetaminophen, Tessalon Perles. She also takes iron. REVIEW OF SYSTEMS: Positive for increasing pulmonary dysfunction, but otherwise there were no significant issues referable to head, eyes, ears, nose and throat, cardiovascular, gastrointestinal, genitourinary, musculoskeletal systems other than those noted above. PHYSICAL EXAMINATION: VITAL SIGNS: Blood pressure 118/50, pulse was 94, respirations were 20. GENERAL: She was moderately obese, appeared to be in modest distress but was described as being alert and oriented. HEENT: Normal. LUNGS: Have a few crackles with diminished breath sounds. CARDIOVASCULAR: Revealed a tachycardia. No murmur and irregularly irregular rhythm. There was some mild amount of peripheral edema. Pulses were present. ABDOMEN: Soft, nontender. NEUROLOGIC: No deficits were described. Today, she is alert, knows he is in [place], can name the hospital and is unaware of how long she has been here despite the fact is her date she had trouble coming along with the date. She knows the year. She knows the month, she knows that Mr. Quintero is president. She can name her daughters. There is a little bit of tremulousness of the outstretched hands, at times some of the activity on her right looks more volitional. There is a hint of some asterixis from time to time, but this is not that prominent. There is no real cerebellar dysmetria on [id number], point to point or heel to rushing testing. Reflexes are all present with the exception of ankle jerks which are absent. Toes are downgoing. No Karlo signs are seen. Strength testing is unremarkable allowing for her debilitated status and lack of maximum effort. Sensory examination is intact. Cranial nerves are normal with normal visual valdez, normal extraocular motility. No nystagmus. LABORATORY DATA: Her white count continues to be elevated. She has elevated pCO2, still at 72. Her renal function remains abnormal with a BUN of 49 and a creatinine of 1.46, but I think this is her baseline. TSH is a little low. No serum ammonia has been performed. Liver enzymes are unremarkable. She has had no particular growth from her sputum. IMAGING DATA: CT and MRI scan showed leukoencephalopathy, but no acute infarctions and an EEG shows moderate diffusely abnormal activity without a normal background alpha rhythm but without lateralizing features and no evidence for potentially epileptogenic findings. IMPRESSION AND PLAN: My suspicions are that this tremor is a manifestation of her hypoxemia and hypercarbia and was present in the past when she has been acutely ill. There is no history of an underlying essential tremor. I do not see clear evidence for myoclonus, either clinically or on EEG and I only see a marginal amount of what could be interpreted as asterixis probably due to her pulmonary issues more than anything else, but I will draw a serum ammonia level just to be sure she does not have sufficient passive congestion of the liver to create some hyperammonemia, but I doubt this will be the case. Certainly, Neurontin can produce a tremor of this type, particularly in the setting of renal failure, but her renal function does not seem to be that poor and the dose of Neurontin seems to be reasonably low at 300 three times a day. Serotonin reuptake inhibitors also produce a tremor of this type, but again her dose of duloxetine seems reasonable. Certainly, steroids can produce tremulousness and confusional episode and she is on some prednisone. After all is said and done, I think this is a multifactorial tremor, does not indicate underlying Parkinson's and in my opinion pride does not indicate an underlying essential tremor picture. I would not offer any treatment. I will do the serum ammonia level. I will check back with her tomorrow, but for now, I have no further suggestions. MTDD
--- NOTE | 2017-06-23 17:13 | Progress Note ---
Internal Med Progress Note Date of Service: Jun 23, 2017. Provider Documentation: Subjective Patient denies tremors since waking up today. Has been able to eat her meals by herself. Patient reports today that she always uses home oxygen at home. Patient 's daughter also confirms that patient uses CPAP at night. Objective Exam: General-alert and awake and not in distress ENT- normal hearing Neck-no neck masses Lungs-cta b/l no wheezing no crackles present Heart-s1 and s2 heard regular rate and rhythm no murmurs Abdomen-soft BS present non tender no distension Extremities- no edema no erythema Neuro-alert and awake, moves extremities ASSESSMENT & PLAN: Acute on chronic hypoxemic respiratory failure: COPD exacerbation resolving however continues to require oxygen as per patient' s baseline. Patient has chronic CO2 retention based on blood gases Continue with Oxygen during the day and CPAP at night CT chest 06/23/17 A hypodense right lobe thyroid nodule is unchanged. The heart is moderately enlarged. There is no pericardial effusion. There is borderline dilatation of the central pulmonary arteries. No pneumothorax or pleural effusion is present. Lungs are suboptimally assessed due to respiratory motion. There is mild upper lobe predominant emphysema. Bilateral lower lobe opacities with volume loss favor atelectasis. Central airways are patent. There is mild airway narrowing. No thoracic lymphadenopathy is present. Previous T6 vertebral augmentation is noted. Bilateral adrenal nodules are unchanged and benign given stability. IMPRESSION: 1. Bilateral lower lobe airspace opacity with foreign loss which favor atelectasis. 2. Mild emphysema. 3. Moderate cardiomegaly. 4. Borderline dilatation of the central pulmonary arteries which raises the possibility of pulmonary arterial hypertension. Echocardiogram 06/23/17 Normal LV size, borderline concentric LVH. Normal LV systolic function. LVEF 55-60%. No regional wall motion abnormalities. Mildly dilated RV, normal RV function. Aortic valve sclerosis without stenosis. Mild to moderate pulmonary hypertension. Est. PASP 45-50 mmHg. Compared with prior study on 05/30/2016: Pulmonary Hypertension is new. Pulmonary consult placed in regards whether any changes in pulmonary management for newly found pulmonary artery hypertension Acute on chronic diastolic HF: CXR with presence of mild CHF, s/p 1 dose of IV Lasix in ER continue home diuretics does not appear to be fluid overloaded clinically Oral potassium supplements BID were held due to serum potassium 5.5 on 06/22/17 , serum potassium on 06/23/17 is 4.5. Can restart potassium supplements Paroxysmal A Fib history: prior normal sinus rhythm on EKG continue on metoprolol, Rythmol Not on anticoagulation at home CKD IV: monitor renal function Anemia of chronic disease: Baseline Hemoglobin is between 8 to 9 on iron supplement HTN: on losartan, metoprolol Tremors seen on 06/22/17 have resolved by 06/23/17 Brain MRI on 06/23/17 1. Very motion degraded exam with several of the sequences nearly nondiagnostic. 2. No acute intracranial abnormality identified. No acute infarction, seizure focus or abnormal enhancement identified. 3. Mild atrophy with probable chronic microvascular ischemic changes, unchanged from comparison. Neurology Consult 06/23/17 "Neurontin can produce a tremor of this type, particularly in the setting of renal failure, but her renal function does not seem to be that poor and the dose of Neurontin seems to be reasonably low at 300 three times a day. Serotonin reuptake inhibitors also produce a tremor of this type, but again her dose of duloxetine seems reasonable. Certainly, steroids can produce tremulousness and confusional episode and she is on some prednisone. this is a multifactorial tremor, does not indicate underlying Parkinson's and in my opinion pride does not indicate an underlying essential tremor picture. I would not offer any treatment." Neurology ordered ammonia level Hypothyroidism: on levothyroxine , patients T4 levels are within normal ranges hypodense right lobe thyroid nodule is unchanged Chronic back pain: on tramadol, gabapentin, hold narcotic medications to avoid sedation History of Depression: on sertraline Diarrhea: No recent complaints of diarrhea, Continue probiotics Disposition: pending pulmonary service evaluation and neurology service follow up Discharge follow ups: 06/25/2017 12:30 PM Babak Melendez MD [facility] Vital Signs: Date Time Temp Pulse Resp B/P (MAP) Pulse Ox O2 Delivery O2 Flow Rate FiO2 06/23/17 16:10 93 Nasal Cannula 4.0 06/23/17 15:35 36.5 73 18 119/58 (78) 93 Nasal Cannula 5.0 06/23/17 14:32 77 16 96 BiPAP/CPAP 45 06/23/17 14:09 70 95 30 06/23/17 12:00 95 Nasal Cannula 3.0 06/23/17 11:40 37.0 73 18 149/71 (97) 97 2.0 06/23/17 11:26 71 16 96 Nasal Cannula 2.0 06/23/17 08:00 95 BiPAP 3.0 30 06/23/17 07:12 37.0 64 20 149/75 (99) 95 06/23/17 04:14 36.8 64 18 146/72 (96) 95 BiPAP 06/23/17 04:00 BiPAP 30 06/23/17 00:00 92 BiPAP 30 06/22/17 23:32 37.0 66 20 142/61 (88) 90 BiPAP 06/22/17 22:18 71 98 30 06/22/17 20:33 75 91 30 06/22/17 20:33 75 16 91 BiPAP/CPAP 06/22/17 20:07 37.3 77 20 132/72 (92) 92 CPAP 30 06/22/17 20:00 92 BiPAP 3.0 25 Lab Results: Results Past 24 Hours Test 06/23/17 05:37 06/23/17 06:23 06/23/17 17:20 Range/Units Sodium Level 137 136-145 mmol/L Potassium Level 4.5 3.5-5.1 mmol/L Chloride Level 95 98-107 mmol/L Carbon Dioxide Level 38 21-32 mmol/L Anion Gap 4.0 3-11 mmol/L Blood Urea Nitrogen 49 7-18 mg/dl Creatinine 1.46 0.60-1.20 mg/dl Est Creatinine Clear Calc Drug Dose 43.9 ml/min Estimated GFR () 42.1 Estimated GFR (Non- 36.3 BUN/Creatinine Ratio 33.6 10-20 Random Glucose 81 70-99 mg/dl Calcium Level 9.9 8.5-10.1 mg/dl Total Bilirubin 0.3 0.2-1 mg/dl Aspartate Amino Transf (AST/SGOT) 10 15-37 U/L Alanine Aminotransferase (ALT/SGPT) 13 12-78 U/L Alkaline Phosphatase 69 45-117 U/L Total Protein 6.6 6.4-8.2 gm/dl Albumin 2.7 3.4-5.0 gm/dl Globulin 3.9 2.5-4.0 gm/dl Albumin/Globulin Ratio 0.7 0.9-2 25-Hydroxy Vitamin D Total 34.5 30-100 ng/ml Parathyroid Hormone (Intact) 36.6 11.1-79.5 pg/mL Venous Blood pH 7.36 7.36-7.41 Venous Blood Partial Pressure CO2 72 38.0-50.0 mmHg Venous Blood Partial Pressure O2 48 mmHg Venous Blood HCO3 40 mmol/L Venous Blood Oxygen Saturation 81.1 % Venous Blood Base Excess 12.6 mEq/L Ammonia 11.2 11-32 umol/L
--- NOTE | 2017-06-23 22:51 | ELECTROENCEPHALOGRAPH REPORT ---
CLINICAL DIAGNOSIS: A 66-year-old woman, hypoxemia and tremors and myoclonus. ELECTROENCEPHALOGRAM DIAGNOSIS: Mildly to moderately diffusely abnormal electroencephalogram during wakefulness. DESCRIPTION OF TRACING: This EEG was done as a bedside recording with photic stimulation as the only stimulus parameter utilized. Video analysis of the patient movement and behavior was also obtained. Drowsiness and light sleep were not recorded. Under these conditions, there is evidence for a background rhythm in the theta range of about 6-7 Hz of maximum frequency and of up to 30 microvolts of maximum amplitude. This appears to be maximum posterior head regions and bilaterally symmetrical. Central theta activity of lesser frequency and of higher voltage is seen and again in a symmetrical fashion and is intermixed with some waveforms in the delta range. Beta activity is seen bifrontally. At no time during the waking tracing is there evidence for potentially epileptogenic activity in the form of polyspike or spike wave bursts, focal sharp waves or focal spikes. Photic stimulation provoked some modest driving response with no clear photoparoxysmal or photomyogenic component. Video analysis does record some movements which appeared to be tremulous at times but there are no electroencephalographic accompanying abnormalities. INTERPRETATION: This EEG reveals evidence for moderate, generalized, nonspecific, nonlateralized encephalopathy without any associated potentially epileptogenic features and without any evidence for cortically originating myoclonic activity.
[2017-06-24] VITALS (10 sets, daily range): BP systolic 119–149; BP diastolic 69–75; PULSE 60–80; TEMP 36.2–36.8; O2SAT 89–99
[2017-06-24 05:52] LABS: ALLEN TEST POS (POS); ARTERIAL BLD GAS O2 SATURATION 98.2 % (90-95); ARTERIAL BLOOD GAS BASE EXCESS 12.1 mEq/L (-9-1.8); ARTERIAL BLOOD GAS HCO3 39 mmol/L (19-24); ARTERIAL BLOOD GAS PO2 129 mm/Hg (80-95); O2 ADMINISTRATION 4L
[2017-06-24] MEDS: HEPARIN SOD 5000 UNIT/0.5 ML CARP SQ SCH ×2 (06:00→12:39)
[2017-06-24 06:09] LABS: BASO % 0.1 %; BASO ABS # 0.01 K/uL (0-0.2); COMPLETE YES; EOS % 0.9 %; HEMATOCRIT 30.9 % (37-47); IG% 1.5 %; LYMPH % 19.7 %; LYMPH ABS # 2.82 K/uL (1.2-3.4); MEAN CELL VOLUME 96.9 fL (80-100); MEAN CORPUSCULAR HEMOGLOBIN 29.8 pg (25-34); MEAN CORPUSCULAR HGB CONC 30.7 g/dl (32-36); MEAN PLATELET VOLUME 9.2 fL (7.4-10.4); MONO % 5.6 %; NEUT % 72.2 %; PLATELET COUNT 216 K/uL (130-400); RED BLOOD COUNT 3.19 M/uL (4.2-5.4); WHITE BLOOD COUNT 14.28 K/uL (4.8-10.8)
[2017-06-24] MEDS: LEVOTHYROXINE 88 MCG TAB PO SCH (06:27)
[2017-06-24 06:39] LABS: BUN/CREATININE RATIO 29.1 (10-20); CALCIUM 9.7 mg/dl (8.5-10.1); CREATININE 1.38 mg/dl (0.60-1.20); POTASSIUM 3.9 mmol/L (3.5-5.1)
[2017-06-24 06:42] LABS: ALB/GLOB RATIO 0.7 (0.9-2)
[2017-06-24] MEDS: ALBUT/IPRATROP 3MG/0.5MG NEB 3 ML VIAL INH SCH ×3 (07:04→15:41)
[2017-06-24] MEDS: LACTOBACILLUS ACIDOPHILUS 1 GM PACK PO SCH ×2 (08:05→11:02)
[2017-06-24] MEDS: BISOPROLOL FUMARATE 5 MG TAB PO SCH (08:05)
[2017-06-24] MEDS: ASPIRIN 81 MG ECTAB PO SCH (08:05)
[2017-06-24] MEDS: DULOXETINE HCL 60 MG CAP PO SCH (08:05)
[2017-06-24] MEDS: AMIODARONE 200 MG TAB PO SCH (08:05)
[2017-06-24] MEDS: GABAPENTIN 300 MG CAP PO SCH ×2 (08:06→12:36)
[2017-06-24] MEDS: PROPAFENONE HCL 150 MG TAB PO SCH ×2 (08:06→12:37)
[2017-06-24] MEDS: FERROUS SULFATE 325 MG TAB PO SCH (08:06)
[2017-06-24] MEDS: METOPROLOL SUCC 50MG EXT REL TAB PO SCH (08:06)
[2017-06-24] MEDS: CHOLECALCIFEROL 1000 INTER.UNIT TAB PO SCH (08:06)
[2017-06-24] MEDS: CEROVITE ADV FORMULA TAB PO SCH (08:06)
[2017-06-24] MEDS: ROPINIROLE HCL 5 MG TAB PO SCH (08:06)
[2017-06-24] MEDS: ATORVASTATIN 20 MG TAB PO SCH (08:06)
[2017-06-24] MEDS: SERTRALINE HCL 50 MG TAB PO SCH (08:07)
[2017-06-24] MEDS: ALLOPURINOL 300 MG TAB PO SCH (08:07)
[2017-06-24] MEDS: RANITIDINE HCL 150 MG TAB PO SCH (08:07)
[2017-06-24] MEDS: LEVOFLOXACIN 250 MG TAB PO SCH (12:36)
[2017-06-24] MEDS ORDERED: PRED10TA PO (14:25)
--- NOTE | 2017-06-24 14:39 | Progress Note ---
Internal Med Progress Note Date of Service: Jun 24, 2017. Provider Documentation: Subjective Patient denies tremors since waking up today. Has been able to eat her meals by herself. Patient reports today that she always uses home oxygen at home. Patient 's daughter also confirms that patient uses CPAP at night. Objective Exam: General-alert and awake and not in distress ENT- normal hearing Neck-no neck masses Lungs-cta b/l no wheezing no crackles present Heart-s1 and s2 heard regular rate and rhythm no murmurs Abdomen-soft BS present non tender no distension Extremities- no edema no erythema Neuro-alert and awake, moves extremities ASSESSMENT & PLAN: Acute on chronic hypoxemic respiratory failure: Patient has chronic CO2 retention based on blood gases, as per pulmonary Dr. Jimenez patient may have obesity hypoventilation syndrome and that it is unclear whether patient has COPD. Continue with Oxygen during the day and BIPAP at night at home CT chest 06/23/17 A hypodense right lobe thyroid nodule is unchanged. The heart is moderately enlarged. There is no pericardial effusion. There is borderline dilatation of the central pulmonary arteries. No pneumothorax or pleural effusion is present. Lungs are suboptimally assessed due to respiratory motion. There is mild upper lobe predominant emphysema. Bilateral lower lobe opacities with volume loss favor atelectasis. Central airways are patent. There is mild airway narrowing. No thoracic lymphadenopathy is present. Previous T6 vertebral augmentation is noted. Bilateral adrenal nodules are unchanged and benign given stability. IMPRESSION: 1. Bilateral lower lobe airspace opacity with foreign loss which favor atelectasis. 2. Mild emphysema. 3. Moderate cardiomegaly. 4. Borderline dilatation of the central pulmonary arteries which raises the possibility of pulmonary arterial hypertension. Echocardiogram 06/23/17 Normal LV size, borderline concentric LVH. Normal LV systolic function. LVEF 55-60%. No regional wall motion abnormalities. Mildly dilated RV, normal RV function. Aortic valve sclerosis without stenosis. Mild to moderate pulmonary hypertension. Est. PASP 45-50 mmHg. Compared with prior study on 05/30/2016: Pulmonary Hypertension is new. (however based on evaluation by pulmonary Dr. Jimenez, the elevated PASP seen on the echo is comparable to previous echo reports when [place] was [place] in the past) Acute on chronic diastolic HF: CXR with presence of mild CHF, s/p 1 dose of IV Lasix in ER continue home diuretics does not appear to be fluid overloaded clinically Oral potassium supplements BID were held due to serum potassium 5.5 on 06/22/17 , serum potassium on 06/23/17 is 4.5 and on 06/24/17 is 3.9. Can restart potassium supplements Paroxysmal A Fib history: prior normal sinus rhythm on EKG continue on metoprolol, Rythmol Not on anticoagulation at home CKD IV: monitor renal function Anemia of chronic disease: Baseline Hemoglobin is between 8 to 9 on iron supplement HTN: on losartan, metoprolol Tremors seen on 06/22/17 have resolved by 06/23/17 Brain MRI on 06/23/17 1. Very motion degraded exam with several of the sequences nearly nondiagnostic. 2. No acute intracranial abnormality identified. No acute infarction, seizure focus or abnormal enhancement identified. 3. Mild atrophy with probable chronic microvascular ischemic changes, unchanged from comparison. Neurology Consult 06/23/17 "Neurontin can produce a tremor of this type, particularly in the setting of renal failure, but her renal function does not seem to be that poor and the dose of Neurontin seems to be reasonably low at 300 three times a day. Serotonin reuptake inhibitors also produce a tremor of this type, but again her dose of duloxetine seems reasonable. Certainly, steroids can produce tremulousness and confusional episode and she is on some prednisone. this is a multifactorial tremor, does not indicate underlying Parkinson's and in my opinion pride does not indicate an underlying essential tremor picture." Neurology ordered ammonia level and it was normal Chronic back pain: on tramadol, gabapentin, minimize narcotic medications to avoid sedation History of Depression: on sertraline Hypothyroidism: on levothyroxine , patients T4 levels are within normal ranges hypodense right lobe thyroid nodule is unchanged Discharge instructions: patient should continue home medications and follow up with primary care doctor tomorrow at 06/25/2017 12:35 PM Babak Melendez MD [facility] for further adjustments of medications if needed, for following up with her breathing, and monitoring for new tremors Patient also to be given prescription of prednisone 10 mg daily for 3 days Vital Signs: Date Time Temp Pulse Resp B/P (MAP) Pulse Ox O2 Delivery O2 Flow Rate FiO2 06/24/17 12:29 95 Nasal Cannula 4.0 06/24/17 12:25 36.4 70 18 119/69 (86) 97 Nasal Cannula 2.0 06/24/17 11:20 73 16 91 Nasal Cannula 1.0 06/24/17 08:01 95 Nasal Cannula 4.0 06/24/17 07:33 36.8 80 22 137/75 (95) 95 BiPAP 06/24/17 07:04 78 16 99 Nasal Cannula 4.0 06/24/17 04:23 36.2 60 18 149/70 (96) 95 BiPAP 06/24/17 04:00 BiPAP 06/24/17 00:00 BiPAP 06/23/17 23:46 36.8 61 18 150/78 (102) 92 BiPAP 06/23/17 22:09 63 96 30 06/23/17 20:00 Nasal Cannula 4.0 06/23/17 19:42 37.0 65 18 138/91 (107) 96 BiPAP 06/23/17 19:13 75 16 99 Nasal Cannula 4.0 06/23/17 16:10 93 Nasal Cannula 4.0 06/23/17 15:35 36.5 73 18 119/58 (78) 93 Nasal Cannula 5.0 06/23/17 14:32 77 16 96 BiPAP/CPAP 45 Lab Results: Results Past 24 Hours Test 06/23/17 17:20 06/24/17 05:18 06/24/17 05:26 06/24/17 05:32 Range/Units Ammonia 11.2 11-32 umol/L White Blood Count 14.28 4.8-10.8 K/uL Red Blood Count 3.19 4.2-5.4 M/uL Hemoglobin 9.5 12.0-16.0 g/dL Hematocrit 30.9 37-47 % Mean Corpuscular Volume 96.9 80-100 fL Mean Corpuscular Hemoglobin 29.8 25-34 pg Mean Corpuscular Hemoglobin Concent 30.7 32-36 g/dl Platelet Count 216 130-400 K/uL Mean Platelet Volume 9.2 7.4-10.4 fL Neutrophils (%) (Auto) 72.2 % Lymphocytes (%) (Auto) 19.7 % Monocytes (%) (Auto) 5.6 % Eosinophils (%) (Auto) 0.9 % Basophils (%) (Auto) 0.1 % Neutrophils # (Auto) 10.31 1.4-6.5 K/uL Lymphocytes # (Auto) 2.82 1.2-3.4 K/uL Monocytes # (Auto) 0.80 0.11-0.59 K/uL Eosinophils # (Auto) 0.13 0-0.5 K/uL Basophils # (Auto) 0.01 0-0.2 K/uL RDW Standard Deviation 50.9 36.4-46.3 fL RDW Coefficient of Variation 14.3 11.5-14.5 % Immature Granulocyte % (Auto) 1.5 % Immature Granulocyte # (Auto) 0.21 0.00-0.02 K/uL Arterial Blood pH 7.40 7.35-7.45 Arterial Blood Partial Pressure CO2 64 35-46 mmHg Arterial Blood Partial Pressure O2 129 80-95 mm/Hg Arterial Blood HCO3 39 19-24 mmol/L Arterial Blood Oxygen Saturation 98.2 90-95 % Arterial Blood Base Excess 12.1 -9-1.8 mEq/L Arterial Blood Gas Delivery 4L Alvaro Test POS POS Sodium Level 135 136-145 mmol/L Potassium Level 3.9 3.5-5.1 mmol/L Chloride Level 93 98-107 mmol/L Carbon Dioxide Level 40 21-32 mmol/L Anion Gap 2.0 3-11 mmol/L Blood Urea Nitrogen 40 7-18 mg/dl Creatinine 1.38 0.60-1.20 mg/dl Est Creatinine Clear Calc Drug Dose 46.5 ml/min Estimated GFR () 45.1 Estimated GFR (Non- 38.9 BUN/Creatinine Ratio 29.1 10-20 Random Glucose 108 70-99 mg/dl Calcium Level 9.7 8.5-10.1 mg/dl Total Bilirubin 0.5 0.2-1 mg/dl Aspartate Amino Transf (AST/SGOT) 10 15-37 U/L Alanine Aminotransferase (ALT/SGPT) 14 12-78 U/L Alkaline Phosphatase 70 45-117 U/L Total Protein 6.6 6.4-8.2 gm/dl Albumin 2.8 3.4-5.0 gm/dl Globulin 3.8 2.5-4.0 gm/dl Albumin/Globulin Ratio 0.7 0.9-2
--- NOTE | 2017-06-24 14:40 | Discharge Instructions ---
Discharge Instructions Date of Service Jun 24, 2017. Admission Reason for Admission: Copd Exacerbation Discharge Discharge Diagnosis / Problem: Acute on Chronic hypoxemia, hypercarbia, pulmonary hypertension, Tremors Discharge Goals Goal(s): Improve function, Increase independence, Improve disease control Activity Recommendations Activity Limitations: per Instructions/Follow-up section Shower/Bathe: no limitations . Instructions / Follow-Up Instructions / Follow-Up Acute on chronic hypoxemic respiratory failure: Patient has chronic CO2 retention based on blood gases, as per pulmonary Dr. Jimenez patient may have obesity hypoventilation syndrome and that it is unclear whether patient has COPD. Continue with Oxygen during the day and BIPAP at night at home Patient completed 7 day course of Levaquin in the hospital in case of pneumonia CT chest 06/23/17 A hypodense right lobe thyroid nodule is unchanged. The heart is moderately enlarged. There is no pericardial effusion. There is borderline dilatation of the central pulmonary arteries. No pneumothorax or pleural effusion is present. Lungs are suboptimally assessed due to respiratory motion. There is mild upper lobe predominant emphysema. Bilateral lower lobe opacities with volume loss favor atelectasis. Central airways are patent. There is mild airway narrowing. No thoracic lymphadenopathy is present. Previous T6 vertebral augmentation is noted. Bilateral adrenal nodules are unchanged and benign given stability. IMPRESSION: 1. Bilateral lower lobe airspace opacity with foreign loss which favor atelectasis. 2. Mild emphysema. 3. Moderate cardiomegaly. 4. Borderline dilatation of the central pulmonary arteries which raises the possibility of pulmonary arterial hypertension. Echocardiogram 06/23/17 Normal LV size, borderline concentric LVH. Normal LV systolic function. LVEF 55-60%. No regional wall motion abnormalities. Mildly dilated RV, normal RV function. Aortic valve sclerosis without stenosis. Mild to moderate pulmonary hypertension. Est. PASP 45-50 mmHg. Compared with prior study on 05/30/2016: Pulmonary Hypertension is new. (however based on evaluation by pulmonary Dr. Jimenez, the elevated PASP seen on the echo is comparable to previous echo reports when patient was living out of state in the past) Acute on chronic diastolic HF: CXR with presence of mild CHF, s/p 1 dose of IV Lasix in ER continue home diuretics does not appear to be fluid overloaded clinically Oral potassium supplements BID were held due to serum potassium 5.5 on 06/22/17 , serum potassium on 06/23/17 is 4.5 and on 06/24/17 is 3.9. Can restart potassium supplements Paroxysmal A Fib history: prior normal sinus rhythm on EKG continue on metoprolol, Rythmol Not on anticoagulation at home CKD IV: monitor renal function Anemia of chronic disease: Baseline Hemoglobin is between 8 to 9 on iron supplement HTN: on losartan, metoprolol Tremors seen on 06/22/17 have resolved by 06/23/17 Brain MRI on 06/23/17 1. Very motion degraded exam with several of the sequences nearly nondiagnostic. 2. No acute intracranial abnormality identified. No acute infarction, seizure focus or abnormal enhancement identified. 3. Mild atrophy with probable chronic microvascular ischemic changes, unchanged from comparison. Neurology Consult 06/23/17 "Neurontin can produce a tremor of this type, particularly in the setting of renal failure, but her renal function does not seem to be that poor and the dose of Neurontin seems to be reasonably low at 300 three times a day. Serotonin reuptake inhibitors also produce a tremor of this type, but again her dose of duloxetine seems reasonable. Certainly, steroids can produce tremulousness and confusional episode and she is on some prednisone. this is a multifactorial tremor, does not indicate underlying Parkinson's and in my opinion pride does not indicate an underlying essential tremor picture." Neurology ordered ammonia level and it was normal Chronic back pain: on tramadol, gabapentin, minimize narcotic medications to avoid sedation History of Depression: on sertraline Hypothyroidism: on levothyroxine , patients T4 levels are within normal ranges hypodense right lobe thyroid nodule is unchanged Discharge instructions: patient should continue home medications and follow up with primary care doctor tomorrow at 06/25/2017 12:35 PM Babak Melendez MD [facility] for further adjustments of medications if needed, for following up with her breathing, and monitoring for new tremors Patient also to be given prescription of prednisone 10 mg daily for 3 days Current Hospital Diet Patient's current hospital diet: AHA Diet (Heart Healthy), Low Sodium Diet (2gm Na) Discharge Diet Recommended Diet: AHA Diet (Heart Healthy), Low Sodium Diet (2gm Na) Pending Studies Studies pending at discharge: no Laboratory Results 06/24/17 05:18 Red Blood Count 3.19, Mean Corpuscular Volume 96.9, Mean Corpuscular Hemoglobin 29.8, Mean Corpuscular Hemoglobin Concent 30.7, Mean Platelet Volume 9.2, Neutrophils (%) (Auto) 72.2, Lymphocytes (%) (Auto) 19.7, Monocytes (%) (Auto) 5.6, Eosinophils (%) (Auto) 0.9, Basophils (%) (Auto) 0.1, Neutrophils # (Auto) 10.31, Lymphocytes # (Auto) 2.82, Monocytes # (Auto) 0.80, Eosinophils # (Auto) 0.13, Basophils # (Auto) 0.01 06/24/17 05:32 Test 06/18/17 14:15 06/18/17 14:20 06/18/17 14:21 06/18/17 22:20 Influenza Type A (RT-PCR) Neg for Influ A (NEG) Influenza Type B (RT-PCR) Neg for Influ B (NEG) Anisocytosis PRESENT Troponin I < 0.015 ng/ml (0-0.045) Hepatitis C Antibody Screen NEG (NEG) Prothrombin Time 11.0 SECONDS (9.0-12.0) Prothromb Time International Ratio 1.0 (0.9-1.1) Urine Color YELLOW Urine Appearance CLOUDY (CLEAR) Urine pH 5.0 (4.5-7.5) Urine Specific Nova 1.016 (1.000-1.030) Urine Protein NEG (NEG) Urine Glucose (UA) NEG (NEG) Urine Ketones NEG (NEG) Urine Occult Blood TRACE (NEG) Urine Nitrite NEG (NEG) Urine Bilirubin NEG (NEG) Urine Urobilinogen NEG (NEG) Urine Leukocyte Esterase NEG (NEG) Urine WBC (Auto) 0 /hpf (0-5) Urine RBC (Auto) 0-4 /hpf (0-4) Urine Hyaline Casts (Auto) 1-5 /lpf (0-5) Urine Epithelial Cells (Auto) 0-5 /lpf (0-5) Urine Bacteria (Auto) NEG (NEG) Test 06/21/17 16:03 06/22/17 12:42 06/22/17 14:55 06/23/17 05:37 Bedside Glucose 156 mg/dl (70-90) Nucleated RBC Absolute Count (auto) 0.03 K/uL (0-0) Nucleated Red Blood Cells % 0.2 % Lactic Acid Level 0.8 mmol/L (0.4-2.0) Magnesium Level 2.5 mg/dl (1.8-2.4) Thyroid Stimulating Hormone (TSH) 0.127 uIu/ml (0.300-4.500) Free Thyroxine 1.18 ng/dl (0.80-1.60) Thyroxine (T4) 6.6 mcg/dl (4.5-10.9) Free Triiodothyronine 1.73 pg/ml (2.30-4.20) 25-Hydroxy Vitamin D Total 34.5 ng/ml (30-100) Parathyroid Hormone (Intact) 36.6 pg/mL (11.1-79.5) Test 06/23/17 06:23 06/23/17 17:20 06/24/17 05:18 06/24/17 05:26 Venous Blood pH 7.36 (7.36-7.41) Venous Blood Partial Pressure CO2 72 mmHg (38.0-50.0) Venous Blood Partial Pressure O2 48 mmHg Venous Blood HCO3 40 mmol/L Venous Blood Oxygen Saturation 81.1 % Venous Blood Base Excess 12.6 mEq/L Ammonia 11.2 umol/L (11-32) White Blood Count 14.28 K/uL (4.8-10.8) Red Blood Count 3.19 M/uL (4.2-5.4) Hemoglobin 9.5 g/dL (12.0-16.0) Hematocrit 30.9 % (37-47) Mean Corpuscular Volume 96.9 fL (80-100) Mean Corpuscular Hemoglobin 29.8 pg (25-34) Mean Corpuscular Hemoglobin Concent 30.7 g/dl (32-36) Platelet Count 216 K/uL (130-400) Mean Platelet Volume 9.2 fL (7.4-10.4) Neutrophils (%) (Auto) 72.2 % Lymphocytes (%) (Auto) 19.7 % Monocytes (%) (Auto) 5.6 % Eosinophils (%) (Auto) 0.9 % Basophils (%) (Auto) 0.1 % Neutrophils # (Auto) 10.31 K/uL (1.4-6.5) Lymphocytes # (Auto) 2.82 K/uL (1.2-3.4) Monocytes # (Auto) 0.80 K/uL (0.11-0.59) Eosinophils # (Auto) 0.13 K/uL (0-0.5) Basophils # (Auto) 0.01 K/uL (0-0.2) RDW Standard Deviation 50.9 fL (36.4-46.3) RDW Coefficient of Variation 14.3 % (11.5-14.5) Immature Granulocyte % (Auto) 1.5 % Immature Granulocyte # (Auto) 0.21 K/uL (0.00-0.02) Arterial Blood pH 7.40 (7.35-7.45) Arterial Blood Partial Pressure CO2 64 mmHg (35-46) Arterial Blood Partial Pressure O2 129 mm/Hg (80-95) Arterial Blood HCO3 39 mmol/L (19-24) Arterial Blood Oxygen Saturation 98.2 % (90-95) Arterial Blood Base Excess 12.1 mEq/L (-9-1.8) Arterial Blood Gas Delivery 4L Alvaro Test POS (POS) Test 06/24/17 05:32 Anion Gap 2.0 mmol/L (3-11) Est Creatinine Clear Calc Drug Dose 46.5 ml/min Estimated GFR () 45.1 Estimated GFR (Non- 38.9 BUN/Creatinine Ratio 29.1 (10-20) Calcium Level 9.7 mg/dl (8.5-10.1) Total Bilirubin 0.5 mg/dl (0.2-1) Aspartate Amino Transf (AST/SGOT) 10 U/L (15-37) Alanine Aminotransferase (ALT/SGPT) 14 U/L (12-78) Alkaline Phosphatase 70 U/L (45-117) Total Protein 6.6 gm/dl (6.4-8.2) Albumin 2.8 gm/dl (3.4-5.0) Globulin 3.8 gm/dl (2.5-4.0) Albumin/Globulin Ratio 0.7 (0.9-2) Date/Time Source Procedure Growth Status 06/19/17 02:35 Sputum Expectorated Sputum Gram Stain - Final Complete 06/19/17 02:35 Sputum Expectorated Sputum Sputum Culture - Final MODERATE NORMAL HERIBERTO. Complete Medical Emergencies . Who to Call and When: Medical Emergencies: If at any time you feel your situation is an emergency, please call 911 immediately. . Non-Emergent Contact Non-Emergency issues call your: Primary Care Provider . . "Provider Documentation" section prepared by Chirag Patel. . VTE Core Measure Inpt VTE Proph given/why not?: Unfractionated heparin SQ
--- NOTE | 2017-06-24 14:46 | Discharge Summary ---
Discharge Summary Date of Service Jun 24, 2017. Discharge Summary Admission Date: Jun 18, 2017 at 16:25 Discharge Date: Jun 24, 2017 Discharge Disposition: Home Principal Diagnosis: Acute on chronic hypoxemic / hypercarbia respiratory failure: obesity hypoventilation syndrome possible COPD. Continue with Oxygen during the day and BIPAP at night at home Pulmonary Hypertension Acute on chronic diastolic HF: Paroxysmal A Fib history: CKD IV Anemia of chronic disease: HTN: Chronic back pain History of Depression: on sertraline Hypothyroidism: Hypodense right lobe thyroid nodule is unchanged Medication Reconciliation New Medications: Prednisone Tab (Prednisone) 10 Mg Tab 10 MG PO DAILY for 3 Days, #3 TAB Continued Medications: Acetaminophen (Tylenol) 325 Mg Tab 650 MG PO Q4H PRN for Pain or Fever, TAB Albuterol Hfa (Ventolin Hfa) 200 Puffs/09023 Mcg Aers 2-4 PUFFS INH Q6H, INHALER Albuterol Sulf (Proventil 0.083% 2.5MG/3ML) 2.5 Mg/3 Ml Nebu 2.5 MG INH QID, EA Allopurinol (Zyloprim) 300 Mg Tab 300 MG PO DAILY, TAB Amiodarone Hcl (Cordarone) 200 Mg Tab 200 MG PO DAILY, TAB Aspirin (Aspirin Ec) 81 Mg Tab 81 MG PO DAILY Atorvastatin (Lipitor) 20 Mg Tab 20 MG PO DAILY, TAB Benzonatate (Tessalon Perles) 100 Mg Cap 1 CAP PO TID PRN for Cough, CAP Bisoprolol Fumarate (Zebeta) 5 Mg Tab 5 MG PO DAILY, TAB Cholecalciferol (Vitamin D3) 1,000 Unit Tab 2000 UNIT PO DAILY, TAB Duloxetine Hcl (Cymbalta) 60 Mg Cap 60 MG PO DAILY, CAP Ferrous Sulfate (Kp Ferrous Sulfate) 325 Mg Tab 1 TAB PO DAILY for 30 Days, #30 TAB 3 Refills Fluticasone Furoate-Vilanterol (Breo Ellipta 200-25 Mcg/INH) 1 Inh Inh 1 PUFF INH DAILY Gabapentin (Neurontin) 300 Mg Cap 300 MG PO TID, CAP Levothyroxine Sodium (Synthroid) 88 Mcg Tab 88 MCG PO DAILY, TAB Metolazone (Metolazone) 2.5 Mg Tab 2.5 MG PO UD 2.5 mg by mouth twice per week on Wednesday and Wednesday. Metoprolol Succinate (Toprol Xl) 50 Mg Tab 50 MG PO DAILY, TAB Multivitamins/Minerals (Certavite/Antioxidants) 1 Tab Tab 1 TAB PO DAILY Potassium Ext Rel (Klor-Con) 20 Meq Tabcr 20 MEQ PO BID, TAB Propafenone Hcl (Propafenone Hcl) 150 Mg Tab 150 MG PO TID Ranitidine (Zantac) 150 Mg Tab 150 MG PO BID, TAB Ropinirole (Requip) 5 Mg Tab 5 MG PO DAILY, TAB Sertraline (Zoloft) 25 Mg Tab 25 MG PO DAILY, TAB Umeclidinium Jermyn (Incruse Ellipta) 62.5 Mcg/Inh Inh 1 PUFF INH DAILY Discontinued Medications: Iron Combinations (Iron Complex) Unknown Strength Cap Unknown Dose PO Admission Information HPI (per Admitting provider): This is a 66yo F with PMH of chronic hypoxic respiratory failure 2/2 COPD (on 4L home O2), chronic diastolic HF, SIMONA (on cpap), paroxysmal A Fib, HTN, CKD IV , morbid obesity and other problems listed below who presents with worsening SOB x 4 days. Follows with [facility] for pulmonology (Sonam Olivier PA-C). Per patient, recently had a COPD exacerbation and completed a steroid course last week. Stewart better until 4 days ago, when she started to feel SOB at rest (can ambulate around home on O2 without SOB at baseline). Had associated chills, productive cough with white sputum and occasional pleuritic chest pain. Has been taking most of her medications at home but felt too fatigued to do nebulizer treatments. Reached out to pulm clinic today and was encouraged to come to ER for further evaluation. Also has a history of CHF. States that while she is unsure of any recent weight gain, she has been drinking more fluids. Denies dietary changes. Is currently breathing comfortably on 6L NC. Feels better after multiple nebulizer treatments. Denies fever, chills, sore throat, nasal congestion, chest pain, palpitations. abdominal pain, nausea, vomiting, LE swelling. Lives with her daughter, Noreen, who manages her medications. Physical Exam (per Admitting): General Appearance: no apparent distress, + obese (breathing comfortably on NC O2) Head: normocephalic, atraumatic Eyes: normal inspection, PERRL, sclerae normal ENT: normal ENT inspection, hearing grossly normal, pharynx normal (moist mucous membranes ) Neck: supple, no adenopathy, trachea midline Respiratory/Chest: chest non-tender, normal breath sounds, + crackles ( Bibasilar crackles. No wheezing ) Cardiovascular: no murmur, normal peripheral pulses, + tachycardia Abdomen/GI: non tender, soft, no organomegaly Genitourinary - Female: + pertinent finding (valentine in place ) Extremities/Musculoskelatal: normal inspection, normal capillary refill, no pedal edema, + pertinent finding (Trace edema to knees bilaterally ) Neurologic/Psych: no motor/sensory deficits, alert, normal mood/affect, oriented x 3 Skin: normal color, warm/dry Hospital Course Acute on chronic hypoxemic respiratory failure: Patient has chronic CO2 retention based on blood gases, as per pulmonary Dr. Jimenez patient may have obesity hypoventilation syndrome and that it is unclear whether patient has COPD. Continue with Oxygen during the day and BIPAP at night at home Patient completed 7 day course of Levaquin in the hospital in case of pneumonia CT chest 06/23/17 A hypodense right lobe thyroid nodule is unchanged. The heart is moderately enlarged. There is no pericardial effusion. There is borderline dilatation of the central pulmonary arteries. No pneumothorax or pleural effusion is present. Lungs are suboptimally assessed due to respiratory motion. There is mild upper lobe predominant emphysema. Bilateral lower lobe opacities with volume loss favor atelectasis. Central airways are patent. There is mild airway narrowing. No thoracic lymphadenopathy is present. Previous T6 vertebral augmentation is noted. Bilateral adrenal nodules are unchanged and benign given stability. IMPRESSION: 1. Bilateral lower lobe airspace opacity with foreign loss which favor atelectasis. 2. Mild emphysema. 3. Moderate cardiomegaly. 4. Borderline dilatation of the central pulmonary arteries which raises the possibility of pulmonary arterial hypertension. Echocardiogram 06/23/17 Normal LV size, borderline concentric LVH. Normal LV systolic function. LVEF 55-60%. No regional wall motion abnormalities. Mildly dilated RV, normal RV function. Aortic valve sclerosis without stenosis. Mild to moderate pulmonary hypertension. Est. PASP 45-50 mmHg. Compared with prior study on 05/30/2016: Pulmonary Hypertension is new. (however based on evaluation by pulmonary Dr. Jimenez, the elevated PASP seen on the echo is comparable to previous echo reports when patient was living [place] of state in the past) Acute on chronic diastolic HF: CXR with presence of mild CHF, s/p 1 dose of IV Lasix in ER continue home diuretics does not appear to be fluid overloaded clinically Oral potassium supplements BID were held due to serum potassium 5.5 on 06/22/17 , serum potassium on 06/23/17 is 4.5 and on 06/24/17 is 3.9. Can restart potassium supplements Paroxysmal A Fib history: prior normal sinus rhythm on EKG continue on metoprolol, Rythmol Not on anticoagulation at home CKD IV: monitor renal function Anemia of chronic disease: Baseline Hemoglobin is between 8 to 9 on iron supplement HTN: on losartan, metoprolol Tremors seen on 06/22/17 have resolved by 06/23/17 Brain MRI on 06/23/17 1. Very motion degraded exam with several of the sequences nearly nondiagnostic. 2. No acute intracranial abnormality identified. No acute infarction, seizure focus or abnormal enhancement identified. 3. Mild atrophy with probable chronic microvascular ischemic changes, unchanged from comparison. Neurology Consult 06/23/17 "Neurontin can produce a tremor of this type, particularly in the setting of renal failure, but her renal function does not seem to be that poor and the dose of Neurontin seems to be reasonably low at 300 three times a day. Serotonin reuptake inhibitors also produce a tremor of this type, but again her dose of duloxetine seems reasonable. Certainly, steroids can produce tremulousness and confusional episode and she is on some prednisone. this is a multifactorial tremor, does not indicate underlying Parkinson's and in my opinion pride does not indicate an underlying essential tremor picture." Neurology ordered ammonia level and it was normal Chronic back pain: on tramadol, gabapentin, minimize narcotic medications to avoid sedation History of Depression: on sertraline Hypothyroidism: on levothyroxine , patients T4 levels are within normal ranges hypodense right lobe thyroid nodule is unchanged Discharge instructions: patient should continue home medications and follow up with primary care doctor tomorrow at 06/25/2017 12:35 PM Babak Melendez MD [facility] for further adjustments of medications if needed, for following up with her breathing, and monitoring for new tremors Patient also to be given prescription of prednisone 10 mg daily for 3 days Total time spent on discharge = This includes examination of the patient, discharge planning, medication reconciliation, and communication with other providers. Discharge Instructions see above
--- NOTE | 2017-06-24 15:08 | Pulmonology Progress Note ---
Pulmonary Progress Note Date of Service Jun 24, 2017. Attending Dr. Jimenez Subjective Patient notes she is back to her baseline pulmonary function. She continues to have intermittent dyspnea with exertion but not at rest at this time. Objective VS: I/Os: -4.3L SaO2%: 91-99% FiO2: 1-4.0L BiPAP: RR: 16-22 HR: 60-80 Resp: Poor inspiratory expiratory effort with associated decreased breath sounds Card: S1 and S2 distant heart sounds unable to auscultate for murmurs rubs or gallops Abd: Positive bowel sounds soft nontender Ext: 1+ dependent edema Studies Sputum (06/19/17) moderate normal genoveva Cardiac Echo (06/23/17) o LV: EF=55-60%, LVH o RV: mildly dilated, TAPSE > 1.5cm o Left Atrium: Mildly dilated o Right Atrium: moderately dilated o IVC: <50% change o RA pressure estimated to be 8mmHg o PASP estimated 45-50mmHg Echocardiogram (11/01/12) o LV: EF=55-60% o RV: normal size and function o RVSP:50-60mmHg o Dilated inferior vena cava EEG (06/23/17/) o Moderate, generalzed, nonspecific encephalopathy Microbiology: 09/01/12: Right hip--Corynebacterium, coag-negative staph, enterococcus Faceium x2 (VRE) 10/05/12: Right hip synovial [id number] staph 10/05/12: Right hip tissue--coag-negative staph 10/23/12: Urine --Serratia marcescens 12/22/12: Right hip--coag negative staph 2 08/20/12: Sputum--pseudomonas 06/01/13: Urine--- Escherichia coli + enterococcus (VRE) 05/29/16: Urine--- Escherichia coli Active pulmonary Medications: 1. Prednisone 20mg Qd 2. DuoNeb QID 3. Ranitidine 150mg BID 4. Levofloxacin 250mg (completed) Assessment & Plan 67-year-old female with chronic hypercapnia, hypoxemia and elevated right ventricular systolic pressures: #1 Pulmonary Hypertension: Patient has had a long history of elevated RSVP with previous echocardiogram in 2012 showing RSVP pressures estimated to be 50- 60 mmHg. There is no definitive right heart catheterization but the patient most likely has combination of group to a group 3 pulmonary hypertension. For this she deal with her underlying CHF/diastolic dysfunctioning as well as underlying obesity hypoventilation and possible COPD. #2 COPD: Patient has a diagnosis of COPD but has never had pulmonary function studies to define the diagnosis and/or possible degree of dysfunction. At this time I would continue on the patient's outpatient regimen of Breo Ellipta 200- 25 QD, Incruse Ellipta 62.5 QD. At this time she can be slowly tapered down on her prednisone over the next 7-10 days continued on her duo nebs as ordered. When she is discharged please reinitiate the Breo and Incruse inhalers. #3 Obesity Hypoventilation Syndrome/SIMONA: Patient is a known history of obesity hypoventilation/SIMONA and is currently treated with BiPAP 14/6 rate of 10 with supplemental O2 at 4L during sleep. #4 Lung Nodules: Initially evaluated by this hospital in June 2016 and then followed up as an outpatient. Current pulmonary provider Sonam Olivier is currently monitoring this patient via CTs. Signoff: The pulmonary team will sign off as I believe this patient is back to her baseline respiratory status. Data Medications: Current Inpatient Medications Medications (Trade) Dose Ordered Sig/Rupinder Route Start Time Stop Time Status Last Admin Dose Admin Acetaminophen (Tylenol Tab) 650 mg Q4H PRN PO 06/18/17 16:30 07/18/17 16:29 06/18/17 20:53 650 MG Albuterol (Ventolin Hfa Inhaler) 2 puffs Q6H PRN INH 06/18/17 16:30 07/18/17 16:29 Allopurinol (Zyloprim Tab) 300 mg DAILY PO 06/19/17 09:00 07/19/17 08:59 06/24/17 08:07 300 MG Amiodarone HCl (Cordarone Tab) 200 mg DAILY PO 06/19/17 09:00 07/19/17 08:59 06/24/17 08:05 200 MG Aspirin (Ecotrin Tab) 81 mg DAILY PO 06/19/17 09:00 07/19/17 08:59 06/24/17 08:05 81 MG Atorvastatin Calcium (Lipitor Tab) 20 mg DAILY PO 06/19/17 09:00 07/19/17 08:59 06/24/17 08:06 20 MG Benzonatate (Tessalon Perles Cap) 100 mg TID PRN PO 06/18/17 16:30 07/18/17 16:29 06/18/17 20:57 100 MG Cholecalciferol (Vitamin D Tab) 2,000 inter.unit DAILY PO 06/19/17 09:00 07/19/17 08:59 06/24/17 08:06 2,000 INTER.UNIT Duloxetine HCl (Cymbalta Cap) 60 mg DAILY PO 06/19/17 09:00 07/19/17 08:59 06/24/17 08:05 60 MG Gabapentin (Neurontin Cap) 300 mg TID PO 06/18/17 21:00 07/18/17 20:59 06/24/17 12:36 300 MG Levothyroxine Sodium (Synthroid Tab) 88 mcg DAILYBB PO 06/19/17 06:00 07/19/17 06:59 06/24/17 06:27 88 MCG Metolazone (Zaroxolyn Tab) 2.5 mg MoFr@0900 PO 06/21/17 09:00 07/21/17 08:59 06/21/17 08:10 2.5 MG Metoprolol Succinate (Toprol Xl Tab) 50 mg DAILY PO 06/19/17 09:00 07/19/17 08:59 06/24/17 08:06 50 MG Multivitamins/ Minerals (Multivitamin W/ Minerals Tab) 1 tab DAILY PO 06/19/17 09:00 07/19/17 08:59 06/24/17 08:06 1 TAB Potassium Chloride (Klor-Con Tab) 20 meq BID PO 06/18/17 21:00 07/18/17 20:59 Future Hold 06/21/17 19:56 20 MEQ Propafenone HCl (Rythmol Tab) 150 mg TID PO 06/18/17 21:00 07/18/17 20:59 06/24/17 12:37 150 MG Ranitidine HCl (zANTac TAB) 150 mg BID PO 06/18/17 21:00 07/18/17 20:59 06/24/17 08:07 150 MG Ropinirole HCl (Requip Tab) 5 mg DAILY PO 06/19/17 09:00 07/19/17 08:59 06/24/17 08:06 5 MG Sertraline HCl (Zoloft Tab) 25 mg DAILY PO 06/19/17 09:00 07/19/17 08:59 06/24/17 08:07 25 MG Bisoprolol Fumarate (Bisoprolol Fumarate) 5 mg DAILY PO 06/19/17 09:00 07/19/17 08:59 06/24/17 08:05 5 MG Ferrous Sulfate (Feosol Tab) 325 mg DAILY PO 06/19/17 09:00 07/19/17 08:59 06/24/17 08:06 325 MG Miscellaneous Information (Order Awaiting Action) 1 ea QS N/A 06/19/17 00:00 07/19/17 00:00 Miscellaneous Information (Order Awaiting Action) 1 ea QS N/A 06/19/17 00:00 07/19/17 00:00 Albuterol/ Ipratropium (Duoneb) 3 ml QIDR INH 06/18/17 20:00 07/18/17 19:59 06/24/17 11:19 3 ML Lactobacillus Acidophilus (Lactinex Granules Pack) 1 gm TIDM PO 06/18/17 17:43 07/18/17 17:59 06/24/17 08:05 1 GM Heparin Sodium (Porcine) (Heparin Sq 5000 Unit/0.5ml) 5,000 unit Q8 SQ 06/18/17 22:00 07/18/17 21:59 06/24/17 12:39 5,000 UNIT Ondansetron HCl (Zofran Inj) 4 mg Q6H PRN IV 06/18/17 18:00 07/18/17 17:59 06/20/17 12:22 4 MG Levofloxacin (Consult) 1 ea UD PRN N/A 06/18/17 18:30 07/18/17 18:29 Tramadol HCl (Ultram Tab) 50 mg Q4H PRN PO 06/18/17 21:45 07/18/17 21:44 06/21/17 01:16 50 MG Ioversol (Optiray 320) 111 ml UD PRN IV 06/22/17 19:00 06/26/17 18:59 Prednisone (PredniSONE TAB) 20 mg DAILY PO 06/24/17 09:00 07/21/17 07:59 06/24/17 08:06 20 MG I & O: 24-Hour Column 06/25/17 08:00 Intake Total 360 ml Balance 360 ml Vital Signs: Date Time Temp Pulse Resp B/P (MAP) Pulse Ox O2 Delivery O2 Flow Rate FiO2 06/24/17 14:45 36.8 70 18 119/69 (86) 97 Nasal Cannula 2.0 06/24/17 12:29 95 Nasal Cannula 4.0 06/24/17 12:25 36.4 70 18 119/69 (86) 97 Nasal Cannula 2.0 06/24/17 11:20 73 16 91 Nasal Cannula 1.0 06/24/17 08:01 95 Nasal Cannula 4.0 06/24/17 07:33 36.8 80 22 137/75 (95) 95 BiPAP 06/24/17 07:04 78 16 99 Nasal Cannula 4.0 06/24/17 04:23 36.2 60 18 149/70 (96) 95 BiPAP 06/24/17 04:00 BiPAP 06/24/17 00:00 BiPAP 06/23/17 23:46 36.8 61 18 150/78 (102) 92 BiPAP 06/23/17 22:09 63 96 30 06/23/17 20:00 Nasal Cannula 4.0 06/23/17 19:42 37.0 65 18 138/91 (107) 96 BiPAP 06/23/17 19:13 75 16 99 Nasal Cannula 4.0 06/23/17 16:10 93 Nasal Cannula 4.0 06/23/17 15:35 36.5 73 18 119/58 (78) 93 Nasal Cannula 5.0 Laboratory Results: Last 24 Hours Test 06/23/17 17:20 06/24/17 05:18 06/24/17 05:26 06/24/17 05:32 Ammonia 11.2 umol/L White Blood Count 14.28 K/uL Red Blood Count 3.19 M/uL Hemoglobin 9.5 g/dL Hematocrit 30.9 % Mean Corpuscular Volume 96.9 fL Mean Corpuscular Hemoglobin 29.8 pg Mean Corpuscular Hemoglobin Concent 30.7 g/dl Platelet Count 216 K/uL Mean Platelet Volume 9.2 fL Neutrophils (%) (Auto) 72.2 % Lymphocytes (%) (Auto) 19.7 % Monocytes (%) (Auto) 5.6 % Eosinophils (%) (Auto) 0.9 % Basophils (%) (Auto) 0.1 % Neutrophils # (Auto) 10.31 K/uL Lymphocytes # (Auto) 2.82 K/uL Monocytes # (Auto) 0.80 K/uL Eosinophils # (Auto) 0.13 K/uL Basophils # (Auto) 0.01 K/uL RDW Standard Deviation 50.9 fL RDW Coefficient of Variation 14.3 % Immature Granulocyte % (Auto) 1.5 % Immature Granulocyte # (Auto) 0.21 K/uL Arterial Blood pH 7.40 Arterial Blood Partial Pressure CO2 64 mmHg Arterial Blood Partial Pressure O2 129 mm/Hg Arterial Blood HCO3 39 mmol/L Arterial Blood Oxygen Saturation 98.2 % Arterial Blood Base Excess 12.1 mEq/L Arterial Blood Gas Delivery 4L Alvaro Test POS Sodium Level 135 mmol/L Potassium Level 3.9 mmol/L Chloride Level 93 mmol/L Carbon Dioxide Level 40 mmol/L Anion Gap 2.0 mmol/L Blood Urea Nitrogen 40 mg/dl Creatinine 1.38 mg/dl Est Creatinine Clear Calc Drug Dose 46.5 ml/min Estimated GFR () 45.1 Estimated GFR (Non- 38.9 BUN/Creatinine Ratio 29.1 Random Glucose 108 mg/dl Calcium Level 9.7 mg/dl Total Bilirubin 0.5 mg/dl Aspartate Amino Transf (AST/SGOT) 10 U/L Alanine Aminotransferase (ALT/SGPT) 14 U/L Alkaline Phosphatase 70 U/L Total Protein 6.6 gm/dl Albumin 2.8 gm/dl Globulin 3.8 gm/dl Albumin/Globulin Ratio 0.7
--- NOTE | 2017-06-24 17:18 | PROGRESS NOTE ---
DATE: 06/24/2017 SUBJECTIVE: Eneida looks better today. The tremor is still present, but has much less amplitude. There is absolutely no asterixis or myoclonus. She is more oriented. She can name the hospital. Knows the date, knows the day of the week. Knows the month, the year, whereas yesterday, she was very dull and slow to respond. Today, she is much more spontaneous. Ammonia level is normal and the pCO2 is coming down a bit, so I think all of this is a metabolic induced tremor and confusional state. How much her gabapentin is playing a role in this could not be established, but apparently she needs it for pain control, so I would not drop it at this point. Dr. Donnelly will be making rounds on Neurology from the next week to 10 days. I am going to ask her to come by and take a look at Ms. Lee, but at some point, I think Neurology is not going to offer much more. We will probably be able to sign off her case in the next day or two depending on how she does and as long as her metabolic status improves. We certainly found no evidence for structural disease as a cause for her encephalopathy other than some underlying leukoencephalopathic changes, and I think the tremor is certainly well explanted on her multitude of metabolic issues, not the least of which is the CO2 retention.
== END 2017-06-24 16:58 | disposition home or self-care (01) | DRG 291 ==
LOC: EDBD 13:46 → C.EDB 13:47 → C.2T 16:25 → ENRESERV 17:09 → C.4E 06-19 11:21 → ENRESERV 06-22 18:50 → C.MED 06-22 19:30
PROVIDERS: ADMIT Hospitalist; ATTEND Hospitalist
DX: I13.0 Hypertensive heart and chronic kidney disease with heart failure and stage 1 through stage 4 chronic kidney disease, or unspecified chronic kidney disease (principal); J96.21 Acute and chronic respiratory failure with hypoxia; I50.33 Acute on chronic diastolic (congestive) heart failure; J96.22 Acute and chronic respiratory failure with hypercapnia; J44.1 Chronic obstructive pulmonary disease with (acute) exacerbation; N18.4 Chronic kidney disease, stage 4 (severe); E66.2 Morbid (severe) obesity with alveolar hypoventilation; Z68.41 Body mass index [BMI] 40.0-44.9, adult; E78.5 Hyperlipidemia, unspecified; F32.9 Major depressive disorder, single episode, unspecified; K21.9 Gastro-esophageal reflux disease without esophagitis; I48.0 Paroxysmal atrial fibrillation; I25.2 Old myocardial infarction; R19.7 Diarrhea, unspecified; D50.9 Iron deficiency anemia, unspecified; E03.9 Hypothyroidism, unspecified; R25.1 Tremor, unspecified; Z79.82 Long term (current) use of aspirin; Z79.899 Other long term (current) drug therapy; Z87.891 Personal history of nicotine dependence; Z88.6 Allergy status to analgesic agent; Z91.040 Latex allergy status

== ENCOUNTER 2017-07-12 21:51 | Inpatient (IN) | payer OTHER ==
[~2017-07-12] VITALS: Ht 162.6 cm; Wt 109.1 kg
[~2017-07-12 21:51] MED LIST changes: -ADVIN50/60 INH; +ALBINS/ NEB; +AMIO200T4 PO; +BENZ100C84 PO; +BISO5TAB3 PO; -BMX1 PO; -DLR500 PO; +DULO60CA44 PO; +FLUT1INH7 INH; -IPRA1AER2 INH; -IRON1CAP2 PO; -PRED10TA PO; -PROP150T PO; +ROPI5TAB PO; -ULT50X PO; +UMEC1INH INH; +VNTHFA/IN INH; +ZNTT/150 PO
[2017-07-12] MEDS ORDERED: ALBUT/IPRATROP 3MG/0.5MG NEB 3 ML VIAL INH STA ×2 (22:00→22:56)
[2017-07-12] MEDS ORDERED: METHYLPREDNISOLONE 125 MG VIAL IV STA (22:00)
[2017-07-12 22:13] LABS: BASO % 0.2 %; BASO ABS # 0.02 K/uL (0-0.2); EOS % 5.5 %; EOS ABS # 0.52 K/uL (0-0.5); HEMATOCRIT 30.2 % (37-47); HEMOGLOBIN 9.4 g/dL (12.0-16.0); IG# 0.04 K/uL (0.00-0.02); LYMPH % 15.1 %; LYMPH ABS # 1.42 K/uL (1.2-3.4); MEAN CELL VOLUME 97.4 fL (80-100); MEAN CORPUSCULAR HEMOGLOBIN 30.3 pg (25-34); MEAN CORPUSCULAR HGB CONC 31.1 g/dl (32-36); MEAN PLATELET VOLUME 8.9 fL (7.4-10.4); MONO % 6.6 %; MONO ABS # 0.62 K/uL (0.11-0.59); NEUT % 72.2 %; NEUT ABS # 6.81 K/uL (1.4-6.5); PLATELET COUNT 215 K/uL (130-400); RED CELL DISTRIBUTION WIDTH CV 14.7 % (11.5-14.5); RED CELL DISTRIBUTION WIDTH SD 52.8 fL (36.4-46.3); WHITE BLOOD COUNT 9.43 K/uL (4.8-10.8)
[2017-07-12 22:26] LABS: PTT PATIENT 25.5 SECONDS (21.0-31.0)
--- NOTE | 2017-07-12 22:33 | DIAGNOSTIC IMAGING REPORT ---
SINGLE VIEW CHEST CLINICAL HISTORY: Sepsis. Cough and dyspnea. FINDINGS: An AP, portable, upright chest radiograph is compared to study dated 06/21/2017. Correlation is made with chest CT dated 06/22/2017. The examination is degraded by portable technique, large body habitus, and patient rotation. The heart is enlarged and there is atherosclerotic calcification of the thoracic aorta. Mild pulmonary vascular congestion is noted. No large pleural effusion is identified. No airspace consolidation is seen typical for pneumonia. Bibasilar atelectasis is observed. No pneumothorax is seen. The skeletal structures are osteopenic. A right shoulder arthroplasty is in place. Degenerative change is noted throughout the thoracic spine. There is evidence of previous thoracic vertebroplasty. IMPRESSION: 1. Cardiomegaly with mild pulmonary vascular congestion. 2. No airspace consolidation or large pleural effusion is identified. Electronically signed by: Juan J Keen M.D. 07/12/2017 10:32 PM Dictated Date/Time: 07/12/2017 10:31 PM
[2017-07-12 22:35] LABS: ALBUMIN 2.8 gm/dl (3.4-5.0); CALCIUM 9.5 mg/dl (8.5-10.1); CREATININE 1.89 mg/dl (0.60-1.20); POTASSIUM 3.5 mmol/L (3.5-5.1)
[2017-07-12 22:38] LABS: TOTAL PROTEIN 7.4 gm/dl (6.4-8.2)
[2017-07-12] MEDS ORDERED: FERR1TAB62 PO (22:42)
[2017-07-12 22:51] LABS: INFLUENZA B ANTIGEN Neg for Influ B (NEG)
[2017-07-12] MEDS ORDERED: HYDROCODONE/HOMATROPINE SYRUP 5MG/1.5MG 5ML UDP PO STA (22:56)
[2017-07-12] MEDS ORDERED: PROP150T PO (23:26)
[2017-07-13] VITALS (13 sets, daily range): BP systolic 132–149; BP diastolic 63–74; PULSE 78–97; TEMP 36.4–37.3; O2SAT 96–99; Ht 162.6 cm; Wt 109.1 kg
--- NOTE | 2017-07-13 00:10 | EMERGENCY ROOM VISIT NOTE ---
History Report prepared by Warren: Kimberly Vasquez Under the Supervision of: Dr. Harpal Reece M.D. First contact with patient: 21:53 Chief Complaint: SHORTNESS OF BREATH Stated Complaint: SOB, COUGH History of Present Illness The patient is a 67 year old female who presents to the Emergency Room with complaints of constant shortness of breath beginning two days ago. The patient notes wheezing and a cough beginning two days ago. She reports having a fever of 104 degrees Fahrenheit yesterday and a fever of 103 degrees Fahrenheit today. She denies any chest pain. The patient got a duoneb treatment on her way to the hospital. The patient wears 4 liters of oxygen at baseline. Source of History: patient Onset: two days ago Position: other (generalized) Symptom Intensity: moderate Quality: other (shortness of breath) Timing: constant Modifying Factors (Relieving): other (DuoNeb) Associated Symptoms: + fevers, + cough, + SOB, No chest pain, No vomiting Review of Systems See HPI for pertinent positives & negatives. A total of 10 systems reviewed and were otherwise negative. Past Medical & Surgical Medical Problems: (1) Abdominal pain (2) Asthma (3) CHF (congestive heart failure) (4) Chronic respiratory failure (5) CKD (chronic kidney disease), stage IV (6) COPD (chronic obstructive pulmonary disease) (7) Depression (8) Dyslipidemia (9) GERD (gastroesophageal reflux disease) (10) HTN (hypertension) (11) EVONNE (iron deficiency anemia) (12) Lumbar spinal stenosis (13) Morbid obesity (14) Myocardial infarction (15) Obesity hypoventilation syndrome (16) Paroxysmal a-fib (17) Respiratory failure, [id number] (18) Right hip pain Surgical Problems: (1) History of appendectomy (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 (4) Hx of cholecystectomy (5) S/P cervical spinal fusion (6) S/P wrist surgery Family History Diabetes mellitus MOTHER FH: CAD (coronary artery disease) MOTHER SISTER Social History Smoking Status: Former Smoker Alcohol Use: none Drug Use: none Marital Status: single Housing Status: lives with family Occupation Status: retired Current/Historical Medications Scheduled Albuterol Hfa (Ventolin Hfa), 2-4 PUFFS INH Q6H Albuterol Sulf (Proventil 0.083% 2.5MG/3ML), 2.5 MG NEB QID Allopurinol (Zyloprim), 300 MG PO DAILY Amiodarone Hcl (Cordarone), 200 MG PO DAILY Aspirin (Aspirin Ec), 81 MG PO DAILY Atorvastatin (Lipitor), 20 MG PO DAILY Bisoprolol Fumarate (Zebeta), 5 MG PO DAILY Cholecalciferol (Vitamin D3), 2,000 INTER.UNIT PO DAILY Duloxetine Hcl (Cymbalta), 60 MG PO DAILY Ferrous Sulfate (Ferrous Sulfate), 325 MG PO DAILY Fluticasone Furoate-Vilanterol (Breo Ellipta 200-25 Mcg/INH), 1 PUFF INH DAILY Gabapentin (Neurontin), 300 MG PO TID Levothyroxine Sodium (Synthroid), 88 MCG PO DAILY Metolazone (Metolazone), 2.5 MG PO UD Metoprolol Succinate (Toprol Xl), 50 MG PO DAILY Multivitamins/Minerals (Certavite/Antioxidants), 1 TAB PO DAILY Potassium Ext Rel (Klor-Con), 20 MEQ PO BID Propafenone Hcl (Propafenone Hcl), 150 MG PO TID Ranitidine (Zantac), 150 MG PO BID Ropinirole (Requip), 5 MG PO DAILY Sertraline (Zoloft), 25 MG PO DAILY Umeclidinium [place] (Incruse Ellipta), 1 PUFF INH DAILY Scheduled PRN Acetaminophen (Tylenol), 650 MG PO Q4H PRN for Pain or Fever Benzonatate (Tessalon Perles), 100 MG PO TID PRN for Cough Allergies Coded Allergies: Adhesives (Verified Allergy, Severe, RED RASH, 06/18/17) Latex1 -Allergic Contact Dermititis (Verified Adverse Reaction, Mild, TAPE -SORE, 06/18/17) Morphine (Verified Adverse Reaction, Mild, DELUSIONS, 06/18/17) Physical Exam Vital Signs Date Time Temp Pulse Resp B/P (MAP) Pulse Ox O2 Delivery O2 Flow Rate FiO2 07/12/17 23:05 88 22 126/62 99 Nasal Cannula 4.0 07/12/17 22:18 87 07/12/17 22:00 37.5 90 20 155/69 97 Nasal Cannula 07/12/17 22:00 97 Nasal Cannula 4.0 07/12/17 22:00 97 Nasal Cannula 4.0 Physical Exam Constitutional: Vital signs reviewed. Eyes: Pupils are equal round reactive to light. Conjunctiva are noninjected. ENT: Pharynx is clear without erythema or exudate. Mucous membranes are moist. Neck supple without meningeal signs. Respiratory: Expiratory wheezing bilaterally. Breath sounds are equal bilaterally. Cardiovascular: Regular rate and rhythm. No rubs or gallops. GI: Soft, nondistended and nontender. Bowel sounds are present. Musculoskeletal: No lower extremity tenderness. Integumentary: No cyanosis. Neurological: The patient is awake and alert. No focal deficits. Psychiatric: Normal affect. Medical Decision & Procedures ER Provider Diagnostic Interpretation: Radiology results as stated below per my review and the radiologist's interpretation: SINGLE VIEW CHEST FINDINGS: An AP, portable, upright chest radiograph is compared to study dated 06/21/2017. Correlation is made with chest CT dated 06/22/2017. The examination is degraded by portable technique, large body habitus, and patient rotation. The heart is enlarged and there is atherosclerotic calcification of the thoracic aorta. Mild pulmonary vascular congestion is noted. No large pleural effusion is identified. No airspace consolidation is seen typical for pneumonia. Bibasilar atelectasis is observed. No pneumothorax is seen. The skeletal structures are osteopenic. A right shoulder arthroplasty is in place. Degenerative change is noted throughout the thoracic spine. There is evidence of previous thoracic vertebroplasty. IMPRESSION: 1. Cardiomegaly with mild pulmonary vascular congestion. 2. No airspace consolidation or large pleural effusion is identified. Electronically signed by: Juan J Keen M.D. Laboratory Results 07/12/17 21:40 Red Blood Count 3.10, Mean Corpuscular Volume 97.4, Mean Corpuscular Hemoglobin 30.3, Mean Corpuscular Hemoglobin Concent 31.1, Mean Platelet Volume 8.9, Neutrophils (%) (Auto) 72.2, Lymphocytes (%) (Auto) 15.1, Monocytes (%) (Auto) 6.6, Eosinophils (%) (Auto) 5.5, Basophils (%) (Auto) 0.2, Neutrophils # (Auto) 6.81, Lymphocytes # (Auto) 1.42, Monocytes # (Auto) 0.62, Eosinophils # (Auto) 0.52, Basophils # (Auto) 0.02 07/12/17 21:40 Test 07/12/17 21:40 07/12/17 22:14 07/12/17 22:23 White Blood Count 9.43 K/uL (4.8-10.8) Red Blood Count 3.10 M/uL (4.2-5.4) Hemoglobin 9.4 g/dL (12.0-16.0) Hematocrit 30.2 % (37-47) Mean Corpuscular Volume 97.4 fL (80-100) Mean Corpuscular Hemoglobin 30.3 pg (25-34) Mean Corpuscular Hemoglobin Concent 31.1 g/dl (32-36) Platelet Count 215 K/uL (130-400) Mean Platelet Volume 8.9 fL (7.4-10.4) Neutrophils (%) (Auto) 72.2 % Lymphocytes (%) (Auto) 15.1 % Monocytes (%) (Auto) 6.6 % Eosinophils (%) (Auto) 5.5 % Basophils (%) (Auto) 0.2 % Neutrophils # (Auto) 6.81 K/uL (1.4-6.5) Lymphocytes # (Auto) 1.42 K/uL (1.2-3.4) Monocytes # (Auto) 0.62 K/uL (0.11-0.59) Eosinophils # (Auto) 0.52 K/uL (0-0.5) Basophils # (Auto) 0.02 K/uL (0-0.2) RDW Standard Deviation 52.8 fL (36.4-46.3) RDW Coefficient of Variation 14.7 % (11.5-14.5) Immature Granulocyte % (Auto) 0.4 % Immature Granulocyte # (Auto) 0.04 K/uL (0.00-0.02) Prothrombin Time 10.7 SECONDS (9.0-12.0) Prothromb Time International Ratio 1.0 (0.9-1.1) Activated Partial Thromboplast Time 25.5 SECONDS (21.0-31.0) Partial Thromboplastin Ratio 1.0 Anion Gap 2.0 mmol/L (3-11) Est Creatinine Clear Calc Drug Dose 34.3 ml/min Estimated GFR () 30.8 Estimated GFR (Non- 26.6 BUN/Creatinine Ratio 13.3 (10-20) Calcium Level 9.5 mg/dl (8.5-10.1) Total Bilirubin 0.2 mg/dl (0.2-1) Aspartate Amino Transf (AST/SGOT) 11 U/L (15-37) Alanine Aminotransferase (ALT/SGPT) 14 U/L (12-78) Alkaline Phosphatase 92 U/L (45-117) Total Protein 7.4 gm/dl (6.4-8.2) Albumin 2.8 gm/dl (3.4-5.0) Globulin 4.6 gm/dl (2.5-4.0) Albumin/Globulin Ratio 0.6 (0.9-2) Influenza Type A Antigen Neg for Influ A (NEG) Influenza Type B Antigen Neg for Influ B (NEG) Bedside Lactic Acid Venous 0.97 mmol/L (0.90-1.70) Laboratory results as reviewed by me. Medications Administered Medications (Trade) Dose Ordered Sig/Rupinder Route Start Time Stop Time Status Last Admin Dose Admin Methylprednisolone Sodium Succinate (Solu-Medrol IV) 125 mg NOW STAT IV 07/12/17 22:00 07/12/17 22:02 DC 07/12/17 22:17 125 MG Albuterol/ Ipratropium (Duoneb) 3 ml NOW STAT INH 07/12/17 22:56 07/12/17 22:59 DC 07/12/17 23:11 3 ML Hydrocodone Bit/ Homatropine Methylb (Hycodan Syrup) 5 ml NOW STAT PO 07/12/17 22:56 07/12/17 22:59 DC 07/12/17 23:11 5 ML ECG Indication: SOB/dyspnea Rate (beats per minute): 87 Rhythm: normal sinus Findings: RBBB (incomplete), no ectopy Comparison ECG Date: 06/22/17 Change: no significant change ED Course 2155: The patient was evaluated in room A2. A complete history and physical exam was performed. 2199: Ordered Solu-Medrol IV 125 mg IV, Duoneb 3 ml INH. 2254: On reassessment, the patient is still wheezing on exam. She is requesting something for her cough. I updated the patient on her test results 2255: Ordered Hycodan Syrup 5 ml PO, Duoneb 3 ml INH. 2320: I spoke with Dr. Fonseca of [facility]. We discussed the patient and her results. The patient will be further evaluated by him. Medical Decision This is a 67-year-old female who presents with difficulty breathing and fever. Differential diagnosis includes COPD exacerbation, influenza, pneumonia, bronchitis, sepsis. I did perform a limited focused review of portions of the patient's old chart on the electronic medical record. The patient was admitted June 18 for COPD exacerbation. I did evaluate the patient as noted above. IV access was established. The patient was placed on a continuous lunchroom monitor. She is wheezing on examination. I did treat her with a DuoNeb. She was also given Solu-Medrol IV. I did order and personally review the patient's 12-lead EKG and chest x- ray as described above. Her chest x-ray does not demonstrate any evidence of pneumonia. A rapid flu test was obtained and was negative. I did order and review the patient's blood work as noted in the electronic medical record. Her creatinine is somewhat elevated compared to her prior visit. I did reassess patient. She still states that she is short of breath. On reexamination she does have continued wheezing. I did discuss the test results with her. I did give her another DuoNeb. She was also given Hycodan for her cough. I did discuss the case with the hospitalist and rn case management. Medication Reconcilliation Current Medication List: was personally reviewed by me Blood Pressure Screening Patient's blood pressure: Elevated blood pressure Blood pressure disposition: Referred to PCP Consults Time Called: 2313 Consulting Physician: Dr. Ramirez Returned Call: [address] Fonseca of [facility]. We discussed the patient and her results. The patient will be further evaluated by him. Impression Primary Impression: COPD exacerbation Additional Impressions: Fever [id number]-tzhlaeg kidney injury Scribe Attestation The scribe's documentation has been prepared under my direct and personally reviewed by me in its entirety. I confirm that the note above accurately reflects all work, treatment, procedures, and medical decision making performed by me. Departure Information Dispostion Being Evaluated By Hospitalist Referrals Babak Melendez M.D. ([facility]) (PCP) Patient Instructions My [facility] Problem Qualifiers Additional Impressions: Fever Fever type: unspecified Qualified Codes: R50.9 - Fever, unspecified [id number] kidney injury Acute renal failure type: unspecified Chronic kidney disease stage: unspecified stage Qualified Codes: N17.9 - Acute kidney failure, unspecified; N18.9 - Chronic kidney disease, unspecified
[2017-07-13] MEDS ORDERED: SODIUM CHLORIDE 0.9% 500ML 500 ML IV SCH (00:30)
--- NOTE | 2017-07-13 00:38 | History and Physical ---
History & Physical Date & Time of Service: Jul 13, 2017 at 00:32 Chief Complaint: Sob, Cough Primary Care Physician: Babak Melendez M.D.(RAMEZ) History of Present Illness Source: patient, clinic records, hospital records 67 year old female with history of COPD, CHF Diastolic, Afib, CKD 4, other problems noted below presenting with shortness of breath x few days. Patient was admitted early June for COPD Exacerbation- secondary to possible Pneumonia, CHF Exacerbation She reports that since before , she has been having progressive shortness of breath, productive cough, achy all over. At the ER, patient was saturating 97% on 4 liters. She was given nebs, solumedrol at the ER with some improvement. On exam, patient reports she feels somewhat improved compared to admission. Dyspnea is improving. Denies other symptoms. Past Medical/Surgical History Medical Problems: (1) Asthma Status: Chronic (2) CHF (congestive heart failure) Permanent Comment: diastolic Status: Chronic (3) Chronic respiratory failure Status: Chronic (4) CKD (chronic kidney disease), stage IV Status: Chronic (5) COPD (chronic obstructive pulmonary disease) Status: Chronic (6) Depression Status: Chronic (7) Dyslipidemia Status: Chronic (8) GERD (gastroesophageal reflux disease) Status: Chronic (9) HTN (hypertension) Status: Chronic (10) EVONNE (iron deficiency anemia) Status: Chronic (11) Lumbar spinal stenosis Status: Chronic (12) Morbid obesity Status: Chronic (13) Myocardial infarction Permanent Comment: per patient, details unknown Status: Chronic (14) Obesity hypoventilation syndrome Status: Chronic (15) Paroxysmal a-fib Status: Chronic Surgical Problems: (1) History of appendectomy Status: Chronic (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 (3) 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 (4) Hx of cholecystectomy Status: Chronic (5) S/P cervical spinal fusion Status: Chronic (6) S/P wrist surgery Status: Chronic Family History Diabetes mellitus MOTHER FH: CAD (coronary artery disease) MOTHER SISTER Social History Smoking Status: Former Smoker Drug Use: none Marital Status: single Housing status: lives with family Occupational Status: retired Immunizations History of Influenza Vaccine: Yes Influenza Vaccine Date: May 19, 2016 History of Tetanus Vaccine?: Yes Tetanus Immunization Date: Jan 11, 2008 History of Pneumococcal: Yes Pneumococcal Date: May 19, 2016 Multi-Drug 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 Allergies Coded Allergies: Adhesives (Verified Allergy, Severe, RED RASH, 06/18/17) Latex1 -Allergic Contact Dermititis (Verified Adverse Reaction, Mild, TAPE -SORE, 06/18/17) Morphine (Verified Adverse Reaction, Mild, DELUSIONS, 06/18/17) Home Medications Scheduled Albuterol Hfa (Ventolin Hfa), 2-4 PUFFS INH Q6H Albuterol Sulf (Proventil 0.083% 2.5MG/3ML), 2.5 MG NEB QID Allopurinol (Zyloprim), 300 MG PO DAILY Amiodarone Hcl (Cordarone), 200 MG PO DAILY Aspirin (Aspirin Ec), 81 MG PO DAILY Atorvastatin (Lipitor), 20 MG PO DAILY Bisoprolol Fumarate (Zebeta), 5 MG PO DAILY Cholecalciferol (Vitamin D3), 2,000 INTER.UNIT PO DAILY Duloxetine Hcl (Cymbalta), 60 MG PO DAILY Ferrous Sulfate (Ferrous Sulfate), 325 MG PO DAILY Fluticasone Furoate-Vilanterol (Breo Ellipta 200-25 Mcg/INH), 1 PUFF INH DAILY Gabapentin (Neurontin), 300 MG PO TID Levothyroxine Sodium (Synthroid), 88 MCG PO DAILY Metolazone (Metolazone), 2.5 MG PO UD Metoprolol Succinate (Toprol Xl), 50 MG PO DAILY Multivitamins/Minerals (Certavite/Antioxidants), 1 TAB PO DAILY Potassium Ext Rel (Klor-Con), 20 MEQ PO BID Propafenone Hcl (Propafenone Hcl), 150 MG PO TID Ranitidine (Zantac), 150 MG PO BID Ropinirole (Requip), 5 MG PO DAILY Sertraline (Zoloft), 25 MG PO DAILY Umeclidinium Bedias (Incruse Ellipta), 1 PUFF INH DAILY Scheduled PRN Acetaminophen (Tylenol), 650 MG PO Q4H PRN for Pain or Fever Benzonatate (Tessalon Perles), 100 MG PO TID PRN for Cough Review of Systems Constitutional-(+) as noted above Eyes- no acute visual changes ENT- no sinus drainage; no pharyngitis Pulmonary-(+) as noted above Cardiac- no chest pain, no palpitations, no orthopnea, no dependent edema GI- no nausea, no vomiting, no diarrhea, no melena, no hematochezia - no dysuria, no hematuria Musculoskeletal- no arthralgias, no myalgias Derm- no rashes, no new skin lesions, no changing skin lesions Hematologic- no unusual bruising, no unusual bleeding Lymphatics- no adenopathy Endocrine- no polyuria or polydipsia; no heat or cold intolerance Neuro- no headaches, no focal neurologic symptoms Psych- no anxiety, no depression Physical Exam Vital Signs Date Time Temp Pulse Resp B/P (MAP) Pulse Ox O2 Delivery O2 Flow Rate FiO2 07/12/17 23:05 88 22 126/62 99 Nasal Cannula 4.0 07/12/17 22:18 87 07/12/17 22:00 37.5 90 20 155/69 97 Nasal Cannula 07/12/17 22:00 97 Nasal Cannula 4.0 07/12/17 22:00 97 Nasal Cannula 4.0 General Appearance: WD/WN, no apparent distress Head: normocephalic, atraumatic Eyes: normal inspection, PERRL, EOMI, sclerae normal ENT: normal ENT inspection, hearing grossly normal, pharynx normal Neck: supple, no adenopathy, thyroid normal, no JVD, trachea midline Respiratory/Chest: chest non-tender, no respiratory distress, no accessory muscle use, + wheezing (scattered bilaterally, moderate) Cardiovascular: regular rate, rhythm, no edema, no JVD, no murmur Abdomen/GI: normal bowel sounds, non tender, soft Back: normal inspection, no CVA tenderness Extremities/Musculoskelatal: normal inspection, no calf tenderness, no pedal edema, normal range of motion Neurologic/Psych: regional operations director II-XII nml as tested, no motor/sensory deficits, alert, normal reflexes, oriented x 3 Skin: normal color, warm/dry, no rash Lymphatic: no adenopathy Diagnostics Laboratory Results Results Past 24 Hours Test 07/12/17 21:40 07/12/17 22:14 07/12/17 22:23 07/13/17 00:19 Range/Units White Blood Count 9.43 4.8-10.8 K/uL Red Blood Count 3.10 4.2-5.4 M/uL Hemoglobin 9.4 12.0-16.0 g/dL Hematocrit 30.2 37-47 % Mean Corpuscular Volume 97.4 80-100 fL Mean Corpuscular Hemoglobin 30.3 25-34 pg Mean Corpuscular Hemoglobin Concent 31.1 32-36 g/dl Platelet Count 215 130-400 K/uL Mean Platelet Volume 8.9 7.4-10.4 fL Neutrophils (%) (Auto) 72.2 % Lymphocytes (%) (Auto) 15.1 % Monocytes (%) (Auto) 6.6 % Eosinophils (%) (Auto) 5.5 % Basophils (%) (Auto) 0.2 % Neutrophils # (Auto) 6.81 1.4-6.5 K/uL Lymphocytes # (Auto) 1.42 1.2-3.4 K/uL Monocytes # (Auto) 0.62 0.11-0.59 K/uL Eosinophils # (Auto) 0.52 0-0.5 K/uL Basophils # (Auto) 0.02 0-0.2 K/uL RDW Standard Deviation 52.8 36.4-46.3 fL RDW Coefficient of Variation 14.7 11.5-14.5 % Immature Granulocyte % (Auto) 0.4 % Immature Granulocyte # (Auto) 0.04 0.00-0.02 K/uL Prothrombin Time 10.7 9.0-12.0 SECONDS Prothromb Time International Ratio 1.0 0.9-1.1 Activated Partial Thromboplast Time 25.5 21.0-31.0 SECONDS Partial Thromboplastin Ratio 1.0 Sodium Level 137 136-145 mmol/L Potassium Level 3.5 3.5-5.1 mmol/L Chloride Level 95 98-107 mmol/L Carbon Dioxide Level 40 21-32 mmol/L Anion Gap 2.0 3-11 mmol/L Blood Urea Nitrogen 25 7-18 mg/dl Creatinine 1.89 0.60-1.20 mg/dl Est Creatinine Clear Calc Drug Dose 34.3 ml/min Estimated GFR () 30.8 Estimated GFR (Non- 26.6 BUN/Creatinine Ratio 13.3 10-20 Random Glucose 115 70-99 mg/dl Calcium Level 9.5 8.5-10.1 mg/dl Total Bilirubin 0.2 0.2-1 mg/dl Aspartate Amino Transf (AST/SGOT) 11 15-37 U/L Alanine Aminotransferase (ALT/SGPT) 14 12-78 U/L Alkaline Phosphatase 92 45-117 U/L Total Protein 7.4 6.4-8.2 gm/dl Albumin 2.8 3.4-5.0 gm/dl Globulin 4.6 2.5-4.0 gm/dl Albumin/Globulin Ratio 0.6 0.9-2 Influenza Type A Antigen Neg for Influ A NEG Influenza Type B Antigen Neg for Influ B NEG Bedside Lactic Acid Venous 0.97 0.90-1.70 mmol/L Microbiology Results 07/12/17 Blood Culture, Received Pending 07/12/17 Blood Culture, Received Pending Diagnostic Radiology CXR: 1. Cardiomegaly with mild pulmonary vascular congestion. 2. No airspace consolidation or large pleural effusion is identified. EKG HR 87, normal sinus rhythm Impression Assessment and Plan 67 year old female with history of COPD, CHF Diastolic, Afib, CKD 4, other problems noted below presenting with shortness of breath x few days. COPD EXACERBATION POSSIBLE ACUTE BRONCHITIS R/O INFLUENZA INFECTION - check baseline ABG Sputum Culture Flu PCR - Nebs Solumedrol Levaquin - consult Pulm ACUTE ON CKD 4 baseline ~1.4, now 1.8 hold Metolazone 500cc IV NSS monitor A FIB appears to be on both Amiodarone, Propafenone, Bisoprolol but patient only has Propafenone listed on Epic will need to clarify with patient and [facility] on ASA CHF DIASTOLIC TYPE on the dry side hold Metolazone gentle IV fluids HTN monitor DVT PROPHYLAXIS Heparin FULL CODE PER PATIENT DISPOSITION lives at home ff up with PCP Dr. Melendez, Pulgia [facility] VTE Prophylaxis VTE Risk Assessment Done? Y/N: Yes Risk Level: Moderate Given or contraindicated: Unfractionated heparin SQ
[2017-07-13] MEDS ORDERED: LEVOFLOXACIN CONSULT ACTIVE PRN (01:38)
[2017-07-13] MEDS ORDERED: LEVOFLOXACIN 500MG / D5W IV ONE (02:00)
[2017-07-13] MEDS ORDERED: LEVALBUTEROL/IPRATROPIUM NEB INH SCH (03:00)
[2017-07-13] MEDS: METHYLPREDNISOLONE IV 40 MG in SYRINGE 0 ML IV SCH ×4 (03:12→21:24)
[2017-07-13 03:31] LABS: INFLUENZA A PCR Neg for Influ A (NEG); INFLUENZA B PCR Neg for Influ B (NEG)
[2017-07-13] MEDS: LEVOTHYROXINE 88 MCG TAB PO SCH (06:14)
[2017-07-13] MEDS: LEVALBUTEROL 1.25MG/0.5ML NEB INH SCH ×5 (07:16→23:53)
[2017-07-13] MEDS: IPRATROPIUM BROMIDE NEB SOLN 0.02% 2.5 ML VIAL INH SCH ×5 (07:16→23:53)
[2017-07-13] MEDS: ACETAMINOPHEN 325 MG TAB PO PRN (07:59)
[2017-07-13] MEDS: METOPROLOL SUCC 50MG EXT REL TAB PO SCH (08:00)
[2017-07-13] MEDS: ROPINIROLE HCL 5 MG TAB PO SCH (08:00)
[2017-07-13] MEDS: PROPAFENONE HCL 150 MG TAB PO SCH ×4 (08:00→21:17)
[2017-07-13] MEDS: ATORVASTATIN 20 MG TAB PO SCH (08:00)
[2017-07-13] MEDS: ASPIRIN 81 MG ECTAB PO SCH (08:01)
[2017-07-13] MEDS: ALLOPURINOL 300 MG TAB PO SCH (08:01)
[2017-07-13] MEDS: SERTRALINE HCL 50 MG TAB PO SCH (08:01)
[2017-07-13] MEDS: RANITIDINE HCL 150 MG TAB PO SCH ×2 (08:01→21:17)
[2017-07-13] MEDS: FERROUS SULFATE 325 MG TAB PO SCH (08:02)
[2017-07-13] MEDS: GABAPENTIN 300 MG CAP PO SCH ×3 (08:02→21:17)
[2017-07-13] MEDS: HEPARIN SOD 5000 UNIT/0.5 ML CARP SQ SCH ×2 (08:48→21:22)
[2017-07-13] MEDS ORDERED: DULOXETINE HCL 60 MG CAP PO SCH (09:00)
[2017-07-13] MEDS ORDERED: BUME1TAB PO (10:06)
[2017-07-13] MEDS ORDERED: ROFL1TAB5 PO (10:06)
[2017-07-13] MEDS ORDERED: LOSA50TA6 PO (10:06)
--- NOTE | 2017-07-13 14:30 | Progress Note ---
Internal Med Progress Note Date of Service: Jul 13, 2017. Provider Documentation: SUBJECTIVE: Seen and examined at bedside States SOB better Reports dry cough Denies chest pain, dizziness No other complaints OBJECTIVE: Vital Signs-as noted below Physical Exam: General Appearance:Obese, no apparent distress Head: normocephalic, Atraumatic Eyes: normal inspection, EOMI, PERRL Neck: supple, Trachea midline Respiratory/Chest: Decreased breath sounds, Scattered wheezes Cardiovascular: S1, S2, No murmur Abdomen/GI:Soft, Non tender, Bowel sounds present Extremities/Musculoskelatal:normal inspection, B/L edema Neurologic/Psych:AAOX3, grossly no focal neurological deficits Skin: normal color, warm Lab data as noted below. ASSESSMENT & PLAN: Patient is a 67 yr female with history of COPD, Chronic Oxygen dependency, CHF Diastolic, Afib, CKD IV presents with worsening SOB and dry cough since few days. Acute on Chronic COPD Exacerbation: Chronic Oxygen dependency Possible Acute Bronchitis Influenza: Negative Check sputum Culture Blood cultures pending Continue Nebs, Solumedrol, Levaquin consulted Pulmonology [place] ON CKD IV baseline ~1.4, now 1.8 hold Metolazone IV fluids as needed monitor A FIB appears to be on both Amiodarone, Propafenone, Bisoprolol but patient only has Propafenone listed on Epic will clarify with patient Continue Propafenone and Metoprolol for now Also on ASA Chronic diastolic CHF on the dry side hold Metolazone HTN monitor DVT Px: Heparin SQ Code Status: Full Code DISPOSITION lives at home ff up with PCP Dr. Melendez, Pulm [facility] Vital Signs: Date Time Temp Pulse Resp B/P (MAP) Pulse Ox O2 Delivery O2 Flow Rate FiO2 07/13/17 12:00 Nasal Cannula 4.0 07/13/17 11:43 36.6 90 18 146/66 (92) 97 Nasal Cannula 4.0 07/13/17 10:57 90 20 97 Nasal Cannula 4.0 07/13/17 08:00 Nasal Cannula 4.0 07/13/17 07:55 36.8 80 20 136/73 (94) 99 Nasal Cannula 4.0 07/13/17 07:16 81 20 98 Nasal Cannula 4.0 07/13/17 04:00 Nasal Cannula 4.0 07/13/17 03:20 36.9 80 20 132/67 (88) 98 Nasal Cannula 4.0 07/13/17 01:20 37.3 88 22 149/63 96 Nasal Cannula 4.0 07/13/17 01:20 96 Nasal Cannula 4.0 07/13/17 00:10 85 20 143/66 98 Nasal Cannula 4.0 07/12/17 23:05 88 22 126/62 99 Nasal Cannula 4.0 07/12/17 22:18 87 07/12/17 22:00 37.5 90 20 155/69 97 Nasal Cannula 07/12/17 22:00 97 Nasal Cannula 4.0 07/12/17 22:00 97 Nasal Cannula 4.0 Lab Results: Results Past 24 Hours Test 07/12/17 21:40 07/12/17 22:14 07/12/17 22:23 07/13/17 00:38 Range/Units White Blood Count 9.43 4.8-10.8 K/uL Red Blood Count 3.10 4.2-5.4 M/uL Hemoglobin 9.4 12.0-16.0 g/dL Hematocrit 30.2 37-47 % Mean Corpuscular Volume 97.4 80-100 fL Mean Corpuscular Hemoglobin 30.3 25-34 pg Mean Corpuscular Hemoglobin Concent 31.1 32-36 g/dl Platelet Count 215 130-400 K/uL Mean Platelet Volume 8.9 7.4-10.4 fL Neutrophils (%) (Auto) 72.2 % Lymphocytes (%) (Auto) 15.1 % Monocytes (%) (Auto) 6.6 % Eosinophils (%) (Auto) 5.5 % Basophils (%) (Auto) 0.2 % Neutrophils # (Auto) 6.81 1.4-6.5 K/uL Lymphocytes # (Auto) 1.42 1.2-3.4 K/uL Monocytes # (Auto) 0.62 0.11-0.59 K/uL Eosinophils # (Auto) 0.52 0-0.5 K/uL Basophils # (Auto) 0.02 0-0.2 K/uL RDW Standard Deviation 52.8 36.4-46.3 fL RDW Coefficient of Variation 14.7 11.5-14.5 % Immature Granulocyte % (Auto) 0.4 % Immature Granulocyte # (Auto) 0.04 0.00-0.02 K/uL Prothrombin Time 10.7 9.0-12.0 SECONDS Prothromb Time International Ratio 1.0 0.9-1.1 Activated Partial Thromboplast Time 25.5 21.0-31.0 SECONDS Partial Thromboplastin Ratio 1.0 Sodium Level 137 136-145 mmol/L Potassium Level 3.5 3.5-5.1 mmol/L Chloride Level 95 98-107 mmol/L Carbon Dioxide Level 40 21-32 mmol/L Anion Gap 2.0 3-11 mmol/L Blood Urea Nitrogen 25 7-18 mg/dl Creatinine 1.89 0.60-1.20 mg/dl Est Creatinine Clear Calc Drug Dose 34.3 ml/min Estimated GFR () 30.8 Estimated GFR (Non- 26.6 BUN/Creatinine Ratio 13.3 10-20 Random Glucose 115 70-99 mg/dl Calcium Level 9.5 8.5-10.1 mg/dl Total Bilirubin 0.2 0.2-1 mg/dl Aspartate Amino Transf (AST/SGOT) 11 15-37 U/L Alanine Aminotransferase (ALT/SGPT) 14 12-78 U/L Alkaline Phosphatase 92 45-117 U/L Total Protein 7.4 6.4-8.2 gm/dl Albumin 2.8 3.4-5.0 gm/dl Globulin 4.6 2.5-4.0 gm/dl Albumin/Globulin Ratio 0.6 0.9-2 Influenza Type A Antigen Neg for Influ A NEG Influenza Type B Antigen Neg for Influ B NEG Bedside Lactic Acid Venous 0.97 0.90-1.70 mmol/L Arterial Blood pH 7.38 7.35-7.45 Arterial Blood Partial Pressure CO2 64 35-46 mmHg Arterial Blood Partial Pressure O2 91 80-95 mm/Hg Arterial Blood HCO3 37 19-24 mmol/L Arterial Blood Oxygen Saturation 94.3 90-95 % Arterial Blood Base Excess 10.0 -9-1.8 mEq/L Arterial Blood Gas Delivery 4L Alvaro Test POS POS Test 07/13/17 02:25 Range/Units Influenza Type A (RT-PCR) Neg for Influ A NEG Influenza Type B (RT-PCR) Neg for Influ B NEG Microbiology Results 07/12/17 Blood Culture, Received Pending 07/12/17 Blood Culture, Received Pending
--- NOTE | 2017-07-13 14:42 | Pulmonary Consultation ---
History General Date of Service: Jul 13, 2017. Stated Complaint: Copd Exacerbation HPI The patient is a 67 year old female who presents to [facility] with complaints of Copd Exacerbation. The patient's primary care provider is Babak Melendez M.D.(RAMEZ). Mrs. Lee is a 66 year old female with severe COPD(FEV 1 unknown) on 4L NC well known to the pulmonary service who presents with7 day history of worsening shortness of breath. She also carries the diagnoses of morbid obesity with a BMI of 42, obesity hypoventilation syndrome and severe obstructive sleep apnea. She states that over the last several days she's had fever, chills, generalized malaise and fatigue associated with myalgias. She was in her normal state of health over the holidays. She states that she's had chronic dry cough is increased over the last 3 days, but she denies any change in sputum production. She also describes chest tightness and wheezing. She denies any orthopnea or paroxysmal nocturnal dyspnea. She states that she's been compliant with her medications. She recently admitted for COPD exacerbation with hypercapnic respiratory failure on 06/24/2017. She was treated with IV corticosteroids, nebulizers and broad spectrum antibiotics. She was also started on Daliresp for frequent admissions. She was discharged on prednisone taper. She denies any urinary or gastrointestinal symptoms. Her home respiratory medications Breo Ellipta 200/25 and Incruse Ellipta 2.5 g. She also uses albuterol every 4-6 hours when necessary and has nebulizer 4 times a day if needed. She is on long-term oxygen of 3-4 L/m. An BiPAP of 14/ 6 with a rate of 10+4 L nasal cannula at night. In the ED, her initial vital signs were 37.5 , pulse 90, respiratory rate 20, blood pressure 155/69, saturating 97 % on 4 L L nasal cannula. Her initial examination was significant for diffuse wheezes in all lung valdez. Her laboratory data showed WBC 9, hemoglobin 9 .4, platelet count of 215. Chemistry showed a sodium of 137, potassium 3.5, chloride 95, CO2 40, BUN 25 and creatinine of 1.89. Albumin 2.8. Influenza A and B antigen and PCR was negative. Her baseline carbon dioxide level appears ranges between 38-42. ABG pH 7.38, pCO2 64, PO2 pO2 91, HCO3 37, SaO2 94.3 % on 4 L per minute. Her CXR showed stable cardiomegaly with components of mild congestive failure and chronic interstitial change. EKG showed normal sinus rhythm with a rate 80 bpm, incomplete right bundle branch block, non-specific ST abnormality. In the ER, she was given Duoneb 3 ML 2 and Solumedrol 125 mg and Levaquin 500 mg IV. She was admitted for acute on chronic hypercapnic respiratory failure. Her cumulative balance since admission is -20 mL. At the time my evaluation this morning, she is awake alert oriented 3. She is resting comfortably in bed. Of note, she has had several resistant organisms in the past for which she remains on contact precautions. Microbiology: 09/01/12: Right hip--Corynebacterium, coag-negative staph, enterococcus Faceium x2 (VRE) 10/05/12: Right hip synovial [id number] staph 10/05/12: Right hip tissue--coag-negative staph 10/23/12: Urine --Serratia marcescens 12/22/12: Right hip--coag negative staph 2 08/20/12: Sputum--pseudomonas 06/01/13: Urine--- Escherichia coli + enterococcus (VRE) 05/29/16: Urine--- Escherichia coli Historian: patient Onset: last week Severity: moderate Complaint Status: persistent Review of Systems Constitutional: reports: as stated in HPI Eyes: reports: as stated in HPI ENT: reports: as stated in HPI Cardiovascular: reports: as stated in HPI Respiratory: reports: as stated in HPI Gastrointestinal: reports: as stated in HPI Genitourinary - Female: reports: as stated in HPI Musculoskeletal: reports: as stated in HPI Integumentary: reports: as stated in HPI Neurologic: reports: as stated in HPI Psychiatric: reports: as stated in HPI Endocrine: as stated in HPI Hematologic / Lymphatic: as stated in HPI Allergic / Immunologic: as stated in HPI All Other Symptoms All Other Systems: Reviewed and Negative Past Medical History Past Medical History: Severe chronic obstructive lung disease (FEV1 unknown) Obesity hypo-ventilation syndrome Congestive heart failure Hypertension Stage IV chronic kidney disease GERD CAD Hyperlipidemia Paroxysmal atrial fibrillation Gout 6 mm nodule in the right upper lobe Iron deficiency anemia Right rib fractures hypothyroidism Past Medical History: A Fib, congestive heart failure, COPD, depression, high cholesterol, hypothyroidism, other Past Surgical History: Total hip replacement of right hip Total replacement of right shoulder joint Cholecystectomy Cervical spinal fusion Wrist surgery Past Surgical History: cholecystectomy Family History Diabetes mellitus MOTHER FH: CAD (coronary artery disease) MOTHER SISTER Mother from coronary artery disease and diabetes Father had CAD but in a motor vehicle accident. One sister who is from myocardial infarction. Currently her daughter assists her with activities of daily living. Other: Other Social History She is a former smoker. Denies any alcohol or illicit drug use. Hx Tobacco Use In Past Year?: No Smoking Status: Former Smoker Alcohol: never Drug Use: none Marital status: single Housing status: lives with family Occupational Status: retired Immunizations History of Influenza Vaccine: Yes Influenza Vaccine Date: May 19, 2016 History of Tetanus Vaccine?: Yes Tetanus Immunization Date: Jan 11, 2008 History of Pneumococcal: Yes Pneumococcal Date: May 19, 2016 History of MDRO History of MDRO: Yes Type of MDRO: VRE Allergies Coded Allergies: Adhesives (Verified Allergy, Severe, RED RASH, 06/18/17) Latex1 -Allergic Contact Dermititis (Verified Adverse Reaction, Mild, TAPE -SORE, 06/18/17) Morphine (Verified Adverse Reaction, Mild, DELUSIONS, 06/18/17) Current Medications Reported Home Medications Medications Dose Route/Sig Max Daily Dose Days Date Category Dose Instructions Cozaar (Losartan Potassium) 50 Mg Tab 50 Mg PO DAILY 07/13/17 Reported Daliresp (Roflumilast) 500 Mcg Tab 1 Tab PO DAILY 07/13/17 Reported Bumex (Bumetanide) 1 Mg Tab 1 Tab PO BID 07/13/17 Reported Ferrous Sulfate 325 Mg Tab 325 Mg PO DAILY 07/12/17 Reported Klor-Con (Potassium Chloride) 20 Meq Tabcr 20 Meq PO BID 06/18/17 Reported Ventolin Hfa (Albuterol) 200 Puffs/52209 Mcg Aers 2-4 Puffs INH Q6H 06/18/17 Reported Proventil 0.083% 2.5MG/3ML (Albuterol Sulf) 2.5 Mg/3 Ml Nebu 2.5 Mg NEB QID 06/18/17 Reported Zantac (Ranitidine HCl) 150 Mg Tab 150 Mg PO BID 06/18/17 Reported Requip (Ropinirole HCl) 5 Mg Tab 5 Mg PO DAILY 06/18/17 Reported Breo Ellipta 200-25 Mcg/INH (Fluticasone Furoate-Vilanterol) 1 Inh Inh 1 Puff INH DAILY 06/18/17 Reported Incruse Ellipta (Umeclidinium [place]) 62.5 Mcg/Inh Inh 1 Puff INH DAILY 06/18/17 Reported Tessalon Perles (Benzonatate) 100 Mg Cap 100 Mg PO TID PRN 06/18/17 Reported Zoloft (Sertraline HCl) 25 Mg Tab 25 Mg PO DAILY 02/19/17 Reported Metolazone 2.5 Mg Tab 2.5 Mg PO UD 02/19/17 Reported 2.5 mg by mouth twice per week on Wednesday and Wednesday. Vitamin D3 (Cholecalciferol) 1,000 Unit Tab 2,000 Inter.unit PO DAILY 02/19/17 Reported Tylenol (Acetaminophen) 325 Mg Tab 650 Mg PO Q4H PRN 08/31/16 Reported Lipitor (Atorvastatin) 20 Mg Tab 20 Mg PO DAILY 06/01/16 Reported Certavite/Antioxidants (Multivitamins/Minerals) 1 Tab Tab 1 Tab PO DAILY 06/01/16 Reported Propafenone Hcl 150 Mg Tab 150 Mg PO TID 05/29/16 Reported Zyloprim (Allopurinol) 300 Mg Tab 300 Mg PO DAILY 05/29/16 Reported Synthroid (Levothyroxine Sodium) 88 Mcg Tab 88 Mcg PO DAILY 05/29/16 Reported Toprol Xl (Metoprolol Succinate) 50 Mg Tab 50 Mg PO DAILY 06/08/13 Reported Neurontin (Gabapentin) 300 Mg Cap 300 Mg PO TID 06/08/13 Reported Aspirin Ec (Aspirin) 81 Mg Tab 81 Mg PO DAILY 04/03/13 Reported Physical Physical Exam Vital Signs: Date Time Temp Pulse Resp B/P (MAP) Pulse Ox O2 Delivery O2 Flow Rate FiO2 07/13/17 10:57 90 20 97 Nasal Cannula 4.0 07/13/17 08:00 Nasal Cannula 4.0 07/13/17 07:55 36.8 80 20 136/73 (94) 99 Nasal Cannula 4.0 07/13/17 07:16 81 20 98 Nasal Cannula 4.0 07/13/17 04:00 Nasal Cannula 4.0 1/2/18 03:20 36.9 80 20 132/67 (88) 98 Nasal Cannula 4.0 07/13/17 01:20 37.3 88 22 149/63 96 Nasal Cannula 4.0 07/13/17 01:20 96 Nasal Cannula 4.0 07/13/17 00:10 85 20 143/66 98 Nasal Cannula 4.0 07/12/17 23:05 88 22 126/62 99 Nasal Cannula 4.0 07/12/17 22:18 87 07/12/17 22:00 37.5 90 20 155/69 97 Nasal Cannula 07/12/17 22:00 97 Nasal Cannula 4.0 07/12/17 22:00 97 Nasal Cannula 4.0 General Appearance: Appears comfortable, obese Head: NORMOCEPHALIC, ATRAUMATIC Eyes: PERRLA, NO DISCHARGE, EOMI, SCLERAE NORMAL ENT: NORMAL THROAT EXAM Neck: NORMAL RANGE OF MOTION, NO TENDERNESS, TRACHEA MIDLINE Respiratory: Prolonged expiratory phase, with wheezing throughout Cardiovasular: REGULAR RATE/RHYTHM, NORMAL S1S2, NO M/G/R Abdomen: NON TENDER, NORMAL BOWEL SOUNDS Back: NORMAL INSPECTION, NO MIDLINE TENDERNESS, NO CVA TENDERNESS, NO PARAVERTEBRAL TTP Upper Extremities: NO EDEMA, NO DEFORMITY, no cyanosis, no clubbing Lower Extremities: Trace lower extremity edema, NO DEFORMITY, NORMAL ROM Pulses: brachial (R), dorsalis pedis (R) (2+), dorsalis pedis (L) (2+) Neuro: ALERT, ORIENTED x 3, NORMAL MOTOR EXAM, NORMAL SENSATION, NORMAL MEMORY Psychiatric: NORMAL AFFECT, NO SUICIDAL IDEATION, CONTRACTS FOR SAFETY Diagnostics Labs Results Past 24 Hours Test 07/12/17 21:40 07/12/17 22:14 07/12/17 22:23 07/13/17 00:38 Range/Units White Blood Count 9.43 4.8-10.8 K/uL Red Blood Count 3.10 4.2-5.4 M/uL Hemoglobin 9.4 12.0-16.0 g/dL Hematocrit 30.2 37-47 % Mean Corpuscular Volume 97.4 80-100 fL Mean Corpuscular Hemoglobin 30.3 25-34 pg Mean Corpuscular Hemoglobin Concent 31.1 32-36 g/dl Platelet Count 215 130-400 K/uL Mean Platelet Volume 8.9 7.4-10.4 fL Neutrophils (%) (Auto) 72.2 % Lymphocytes (%) (Auto) 15.1 % Monocytes (%) (Auto) 6.6 % Eosinophils (%) (Auto) 5.5 % Basophils (%) (Auto) 0.2 % Neutrophils # (Auto) 6.81 1.4-6.5 K/uL Lymphocytes # (Auto) 1.42 1.2-3.4 K/uL Monocytes # (Auto) 0.62 0.11-0.59 K/uL Eosinophils # (Auto) 0.52 0-0.5 K/uL Basophils # (Auto) 0.02 0-0.2 K/uL RDW Standard Deviation 52.8 36.4-46.3 fL RDW Coefficient of Variation 14.7 11.5-14.5 % Immature Granulocyte % (Auto) 0.4 % Immature Granulocyte # (Auto) 0.04 0.00-0.02 K/uL Prothrombin Time 10.7 9.0-12.0 SECONDS Prothromb Time International Ratio 1.0 0.9-1.1 Activated Partial Thromboplast Time 25.5 21.0-31.0 SECONDS Partial Thromboplastin Ratio 1.0 Sodium Level 137 136-145 mmol/L Potassium Level 3.5 3.5-5.1 mmol/L Chloride Level 95 98-107 mmol/L Carbon Dioxide Level 40 21-32 mmol/L Anion Gap 2.0 3-11 mmol/L Blood Urea Nitrogen 25 7-18 mg/dl Creatinine 1.89 0.60-1.20 mg/dl Est Creatinine Clear Calc Drug Dose 34.3 ml/min Estimated GFR () 30.8 Estimated GFR (Non- 26.6 BUN/Creatinine Ratio 13.3 10-20 Random Glucose 115 70-99 mg/dl Calcium Level 9.5 8.5-10.1 mg/dl Total Bilirubin 0.2 0.2-1 mg/dl Aspartate Amino Transf (AST/SGOT) 11 15-37 U/L Alanine Aminotransferase (ALT/SGPT) 14 12-78 U/L Alkaline Phosphatase 92 45-117 U/L Total Protein 7.4 6.4-8.2 gm/dl Albumin 2.8 3.4-5.0 gm/dl Globulin 4.6 2.5-4.0 gm/dl Albumin/Globulin Ratio 0.6 0.9-2 Influenza Type A Antigen Neg for Influ A NEG Influenza Type B Antigen Neg for Influ B NEG Bedside Lactic Acid Venous 0.97 0.90-1.70 mmol/L Arterial Blood pH 7.38 7.35-7.45 Arterial Blood Partial Pressure CO2 64 35-46 mmHg Arterial Blood Partial Pressure O2 91 80-95 mm/Hg Arterial Blood HCO3 37 19-24 mmol/L Arterial Blood Oxygen Saturation 94.3 90-95 % Arterial Blood Base Excess 10.0 -9-1.8 mEq/L Arterial Blood Gas Delivery 4L Alvaro Test POS POS Test 07/13/17 02:25 Range/Units Influenza Type A (RT-PCR) Neg for Influ A NEG Influenza Type B (RT-PCR) Neg for Influ B NEG Microbiology Results 07/12/17 Blood Culture, Received Pending 07/12/17 Blood Culture, Received Pending Diagnostic Radiology SINGLE VIEW CHEST 07/12/2017 CLINICAL HISTORY: Sepsis. Cough and dyspnea. FINDINGS: An AP, portable, upright chest radiograph is compared to study dated 06/21/2017. Correlation is made with chest CT dated 06/22/2017. The examination is degraded by portable technique, large body habitus, and patient rotation. The heart is enlarged and there is atherosclerotic calcification of the thoracic aorta. Mild pulmonary vascular congestion is noted. No large pleural effusion is identified. No airspace consolidation is seen typical for pneumonia. Bibasilar atelectasis is observed. No pneumothorax is seen. The skeletal structures are osteopenic. A right shoulder arthroplasty is in place. Degenerative change is noted throughout the thoracic spine. There is evidence of previous thoracic vertebroplasty. IMPRESSION: 1. Cardiomegaly with mild pulmonary vascular congestion. 2. No airspace consolidation or large pleural effusion is identified. Cardiac Echo (06/23/17) o LV: EF=55-60%, LVH o RV: mildly dilated, TAPSE > 1.5cm o Left Atrium: Mildly dilated o Right Atrium: moderately dilated o IVC: <50% change o RA pressure estimated to be 8mmHg o PASP estimated 45-50mmHg Echocardiogram (11/01/12) o LV: EF=55-60% o RV: normal size and function o RVSP:50-60mmHg o Dilated inferior vena cava EEG (06/23/17/) o Moderate, generalized, nonspecific encephalopathy Impression Assessment and Plan COPD (FEV1 unknown) exacerbation Chronic hypoxic and respiratory failure Obesity hypoventilation syndrome SIMONA Pulmonary hypertension Lung nodules CKD stage IV Acute on chronic hypercapnic respiratory failure is multifactorial in nature. Likely secondary to COPD exacerbation. Patient describes febrile illness with generalized malaise, shortness of breath and increased dyspnea on exertion. She has chronic cough but denies any changes in sputum production. Of note she has a long-standing history of SIMONA and obesity hypoventilation syndrome with elevated right ventricular systolic pressure is suggestive of pulmonary hypertension. This is likely group 2/3 from underlying cardiac- diastolic dysfunction and chronic hypoxemia. Management per pulmonary hypertension is to treat the underlying diastolic dysfunction and obstructive sleep apnea. Upon review of her ABG appears to be at her baseline. Recommendations. Continue with BIPAP at night and oxygen supplementation to maintain a SaO2 btw 88-92% Continue with BiPAP 14/6 with a backup rate of 10 and supplemental oxygen of 4 L during sleep. Avoid sedatives and narcotics if at all possible. Continue with incentive spirometry and flutter valve. Continue with broad-spectrum antibiotics for 5-7 days. Consider sending pro- calcitonin and sputum culture to aid in de-escalation of antibiotics Continue with Daliresp Continue with corticosteroids and taper as tolerated Continue with albuterol and ipratropium nebulizers Continue DVT prophylaxis Encourage ambulation as tolerated. She should resume Breo Ellipta and Incruse Ellipta upon hospital discharge. Lung nodules are being followed by PETERSON Yanes at [facility] pulmonary group outpatient office. I appreciate the consult and will continue to follow. Advanced Directives Living Will: none
[2017-07-13] MEDS ORDERED: LEVOFLOXACIN 250MG / D5W IV SCH (23:00)
[2017-07-14] VITALS (15 sets, daily range): BP systolic 137–156; BP diastolic 67–81; PULSE 76–98; TEMP 36.5–36.8; O2SAT 91–100
[2017-07-14] MEDS: LEVOFLOXACIN 250MG / D5W IV SCH (03:44)
[2017-07-14] MEDS: METHYLPREDNISOLONE IV 40 MG in SYRINGE 0 ML IV SCH ×3 (03:44→18:46)
[2017-07-14] MEDS: LEVALBUTEROL 1.25MG/0.5ML NEB INH SCH ×6 (04:00→23:22)
[2017-07-14] MEDS: IPRATROPIUM BROMIDE NEB SOLN 0.02% 2.5 ML VIAL INH SCH ×6 (04:00→23:22)
[2017-07-14] MEDS: LEVOTHYROXINE 88 MCG TAB PO SCH (06:21)
[2017-07-14 08:00] LABS: HEMATOCRIT 29.2 % (37-47); HEMOGLOBIN 9.1 g/dL (12.0-16.0); MEAN CELL VOLUME 96.1 fL (80-100); MEAN CORPUSCULAR HEMOGLOBIN 29.9 pg (25-34); MEAN CORPUSCULAR HGB CONC 31.2 g/dl (32-36); MEAN PLATELET VOLUME 8.9 fL (7.4-10.4); PLATELET COUNT 200 K/uL (130-400); RED CELL DISTRIBUTION WIDTH CV 14.2 % (11.5-14.5); RED CELL DISTRIBUTION WIDTH SD 50.1 fL (36.4-46.3); WHITE BLOOD COUNT 13.51 K/uL (4.8-10.8)
[2017-07-14] MEDS: ASPIRIN 81 MG ECTAB PO SCH (08:13)
[2017-07-14] MEDS: ATORVASTATIN 20 MG TAB PO SCH (08:13)
[2017-07-14] MEDS: ALLOPURINOL 300 MG TAB PO SCH (08:13)
[2017-07-14] MEDS: METOPROLOL SUCC 50MG EXT REL TAB PO SCH (08:14)
[2017-07-14] MEDS: SERTRALINE HCL 50 MG TAB PO SCH (08:14)
[2017-07-14] MEDS: RANITIDINE HCL 150 MG TAB PO SCH ×2 (08:15→20:23)
[2017-07-14] MEDS: ROPINIROLE HCL 5 MG TAB PO SCH (08:15)
[2017-07-14] MEDS: GABAPENTIN 300 MG CAP PO SCH ×3 (08:15→20:23)
[2017-07-14] MEDS: PROPAFENONE HCL 150 MG TAB PO SCH ×3 (08:15→20:23)
[2017-07-14] MEDS: ROFLUMILAST 500 MCG TAB PO SCH (08:16)
[2017-07-14] MEDS: FERROUS SULFATE 325 MG TAB PO SCH (08:16)
[2017-07-14 08:56] LABS: CALCIUM 9.4 mg/dl (8.5-10.1); CREATININE 1.33 mg/dl (0.60-1.20)
[2017-07-14] MEDS: ONDANSETRON INJ 2 MG/ML 2 ML VIAL IV PRN (11:23)
--- NOTE | 2017-07-14 12:28 | Pulmonology Progress Note ---
Pulmonary Progress Note Date of Service Jul 14, 2017. Attending Dr. Niño Subjective Patient seen and examined at bedside today. States that she's feeling somewhat nauseous. She denies any shortness of breath or chest pain. She states that she still does have some intermittent wheezing. She still has dry cough. She is a mostly back to her baseline from a respiratory standpoint. Objective Vital signs reviewed. MAXIMUM TEMPERATURE 36.7, blood pressure 137/73 to 156/ 67, pulse 86-98, respiratory rate 18-20, pulse ox initially 97-98% on 2 L nasal cannula. Cumulative balance is 385 mL positive. Gen.: Patient is awake alert oriented 3, in no acute respiratory distress. CVS: S1-S2, regular rate and rhythm Lungs/chest: Good air entry bilaterally however there is still sporadic wheezing noted. Abdomen: Soft, nontender, nondistended, bowel sounds positive Extremities: Trace edema bilaterally, no cyanosis, no clubbing Neuro/psych: Flat affect Laboratory data reviewed. White Blood cell count 13.5 up from 9.43, hemoglobin 9.1 and stable. CO2 35 today, BUN 28 and creatinine improved to 1.33 from 1.89 yesterday. Blood cultures from 07/12/2017-no growth to date 2 Imaging reviewed. Medications reviewed. Assessment & Plan COPD (FEV1 unknown) exacerbation Chronic hypoxic and respiratory failure Obesity hypoventilation syndrome SIMONA Pulmonary hypertension Lung nodules CKD stage IV Ms. Lee appears to be improving from a respiratory standpoint. She still has some sporadic wheezing and prolonged expiratory phase. I suppose this will improve with continued antibiotics as well as corticosteroids. Recommendations. Continue with BIPAP at night and oxygen supplementation to maintain a SaO2 btw 88-92% Continue with BiPAP 14/6 with a backup rate of 10 and supplemental oxygen of 4 L during sleep. Avoid sedatives and narcotics if at all possible. Continue with incentive spirometry and flutter valve. Continue with broad-spectrum antibiotics for 5-7 days. I will order pro- calcitonin and sputum culture to aid in de-escalation of antibiotics Continue with Daliresp Continue with corticosteroids and taper as tolerated Continue with albuterol and ipratropium nebulizers Continue DVT prophylaxis Encourage ambulation as tolerated and at bed to chair. Recommend PT and OT therapy She should resume Breo Ellipta and Incruse Ellipta upon hospital discharge. Lung nodules are being followed by PETERSON Yanes at [facility] pulmonary group outpatient office. I will signoff case today. Please contact me if you've any further questions or concerns. Data Medications: Current Inpatient Medications Medications (Trade) Dose Ordered Sig/Rupinder Route Start Time Stop Time Status Last Admin Dose Admin Methylprednisolone Sodium Succinate 40 mg/Syringe 0.64 ml @ 1.5 mls/min Q6H IV 07/13/17 04:00 08/12/17 03:59 07/14/17 09:59 1.5 MLS/MIN Levofloxacin (Consult) 1 ea UD PRN N/A 07/13/17 01:38 08/12/17 01:37 Allopurinol (Zyloprim Tab) 300 mg DAILY PO 07/13/17 09:00 08/12/17 08:59 07/14/17 08:13 300 MG Aspirin (Ecotrin Tab) 81 mg DAILY PO 07/13/17 09:00 08/12/17 08:59 07/14/17 08:13 81 MG Atorvastatin Calcium (Lipitor Tab) 20 mg DAILY PO 07/13/17 09:00 08/12/17 08:59 07/14/17 08:13 20 MG Gabapentin (Neurontin Cap) 300 mg TID PO 07/13/17 09:00 08/12/17 08:59 07/14/17 08:15 300 MG Levothyroxine Sodium (Synthroid Tab) 88 mcg DAILYBB PO 07/13/17 06:00 08/12/17 05:59 07/14/17 06:21 88 MCG Metoprolol Succinate (Toprol Xl Tab) 50 mg DAILY PO 07/13/17 09:00 08/12/17 08:59 07/14/17 08:14 50 MG Propafenone HCl (Rythmol Tab) 150 mg TID PO 07/13/17 09:00 08/12/17 08:59 07/14/17 08:15 150 MG Ranitidine HCl (zANTac TAB) 150 mg BID PO 07/13/17 09:00 08/12/17 08:59 07/14/17 08:15 150 MG Ropinirole HCl (Requip Tab) 5 mg DAILY PO 07/13/17 09:00 08/12/17 08:59 07/14/17 08:15 5 MG Sertraline HCl (Zoloft Tab) 25 mg DAILY PO 07/13/17 09:00 08/12/17 08:59 07/14/17 08:14 25 MG Ferrous Sulfate (Feosol Tab) 325 mg DAILY PO 07/13/17 09:00 08/12/17 08:59 07/14/17 08:16 325 MG Miscellaneous Information (Order Awaiting Action) 1 ea QS N/A 07/13/17 08:00 08/12/17 07:59 Miscellaneous Information (Order Awaiting Action) 1 ea QS N/A 07/13/17 08:00 08/12/17 07:59 Acetaminophen (Tylenol Tab) 650 mg Q4H PRN PO 07/13/17 00:45 08/12/17 00:44 07/13/17 07:59 650 MG Ondansetron HCl (Zofran Inj) 4 mg Q6H PRN IV 07/13/17 00:45 08/12/17 00:44 07/14/17 11:23 4 MG Ipratropium [place] (Atrovent 0.02% 0.5MG/2.5ML Neb) 0.5 mg Q4R INH 07/13/17 08:00 08/12/17 07:59 07/14/17 11:25 0.5 MG Levalbuterol (Xopenex 1.25MG/ 0.5ML Neb) 1.25 mg Q4R INH 07/13/17 08:00 08/12/17 07:59 07/14/17 11:25 1.25 MG Roflumilast (Daliresp Tab) 500 mcg DAILY PO 07/14/17 09:00 08/13/17 08:59 07/14/17 08:16 500 MCG Levofloxacin 250 mg/Prmx 50 ml @ 50 mls/hr Q24H IV 07/14/17 03:00 07/20/17 02:59 07/14/17 03:44 50 MLS/HR Heparin Sodium (Porcine) (Heparin Sq 5000 Unit/0.5ml) 5,000 unit TID SQ 07/14/17 14:00 08/12/17 08:59 Vital Signs: Date Time Temp Pulse Resp B/P (MAP) Pulse Ox O2 Delivery O2 Flow Rate FiO2 07/14/17 11:25 87 20 97 Nasal Cannula 3.0 07/14/17 11:17 36.5 88 18 142/74 (96) 97 Room Air 07/14/17 08:00 Nasal Cannula 3.0 07/14/17 07:41 36.7 86 20 150/76 (100) 97 3.0 07/14/17 07:13 89 20 98 Nasal Cannula 3.0 07/14/17 04:00 97 Nasal Cannula 3.0 07/14/17 03:55 36.7 87 18 156/67 (96) 97 Nasal Cannula 3.0 07/14/17 00:00 36.7 98 20 137/73 (94) 97 Nasal Cannula 3.0 07/14/17 00:00 97 Nasal Cannula 3.0 07/13/17 23:15 97 20 98 Nasal Cannula 4.0 07/13/17 22:00 97 07/13/17 21:19 93 133/74 (93) 07/13/17 20:24 36.4 86 18 136/70 (92) 97 Nasal Cannula 3.0 07/13/17 20:14 84 18 97 Nasal Cannula 4.0 07/13/17 20:00 97 07/13/17 16:00 Nasal Cannula 4.0 07/13/17 15:03 78 18 97 Nasal Cannula 4.0 Laboratory Results: Last 24 Hours Test 07/14/17 07:44 White Blood Count 13.51 K/uL Red Blood Count 3.04 M/uL Hemoglobin 9.1 g/dL Hematocrit 29.2 % Mean Corpuscular Volume 96.1 fL Mean Corpuscular Hemoglobin 29.9 pg Mean Corpuscular Hemoglobin Concent 31.2 g/dl RDW Standard Deviation 50.1 fL RDW Coefficient of Variation 14.2 % Platelet Count 200 K/uL Mean Platelet Volume 8.9 fL Sodium Level 137 mmol/L Potassium Level 4.0 mmol/L Chloride Level 96 mmol/L Carbon Dioxide Level 35 mmol/L Anion Gap 6.0 mmol/L Blood Urea Nitrogen 28 mg/dl Creatinine 1.33 mg/dl Est Creatinine Clear Calc Drug Dose 48.2 ml/min Estimated GFR () 47.2 Estimated GFR (Non- 40.7 BUN/Creatinine Ratio 20.9 Random Glucose 156 mg/dl Calcium Level 9.4 mg/dl Magnesium Level 1.8 mg/dl
[2017-07-14] MEDS: HEPARIN SOD 5000 UNIT/0.5 ML CARP SQ SCH ×2 (14:19→20:29)
--- NOTE | 2017-07-14 14:44 | Progress Note ---
Internal Med Progress Note Date of Service: Jul 14, 2017. Provider Documentation: SUBJECTIVE: Seen and examined at bedside States SOB and cough is much better Still has wheezes intermittently Denies chest pain, dizziness No other complaints OBJECTIVE: Vital Signs-as noted below Physical Exam: General Appearance:Obese, no apparent distress Head: normocephalic, Atraumatic Eyes: normal inspection, EOMI, PERRL Neck: supple, Trachea midline Respiratory/Chest: Decreased breath sounds, b/l wheezes Cardiovascular: S1, S2, No murmur Abdomen/GI:Soft, Non tender, Bowel sounds present Extremities/Musculoskelatal:normal inspection, B/L edema Neurologic/Psych:AAOX3, grossly no focal neurological deficits Skin: normal color, warm Lab data as noted below. ASSESSMENT & PLAN: Patient is a 67 yr female with history of COPD, Chronic Oxygen dependency, CHF Diastolic, Afib, CKD IV presents with worsening SOB and dry cough since few days. Acute on Chronic COPD Exacerbation: Chronic Oxygen dependency Possible Acute Bronchitis Influenza: Negative Check sputum Culture Blood cultures pending Continue Nebs, Solumedrol, Levaquin Appreciate Pulmonology Input Continue BiPAP QHS Maintain Sats 88-92% Continue incentive spirometry and flutter valve. Leukocytosis likely from steroids Procalcitonin normal Continue Daliresp [place] ON CKD IV Resolved baseline ~1.4, now 1.8 hold Metolazone for now S/P IV fluids Cr back to baseline monitor renal function A FIB Continue Propafenone and Metoprolol for rate control Also on ASA Previously on amiodarone which was later discontinued. Confirmed with Pharmacy Chronic diastolic CHF on the dry side hold Metolazone HTN monitor DVT Px: Heparin SQ Code Status: Full Code DISPOSITION lives at home ff up with PCP Dr. Melendez, [facility] Vital Signs: Date Time Temp Pulse Resp B/P (MAP) Pulse Ox O2 Delivery O2 Flow Rate FiO2 07/14/17 14:12 93 97 07/14/17 12:00 Nasal Cannula 3.0 07/14/17 11:25 87 20 97 Nasal Cannula 3.0 07/14/17 11:17 36.5 88 18 142/74 (96) 97 Room Air 07/14/17 08:00 Nasal Cannula 3.0 07/14/17 07:41 36.7 86 20 150/76 (100) 97 3.0 07/14/17 07:13 89 20 98 Nasal Cannula 3.0 07/14/17 04:00 97 Nasal Cannula 3.0 07/14/17 03:55 36.7 87 18 156/67 (96) 97 Nasal Cannula 3.0 07/14/17 00:00 36.7 98 20 137/73 (94) 97 Nasal Cannula 3.0 07/14/17 00:00 97 Nasal Cannula 3.0 07/13/17 23:15 97 20 98 Nasal Cannula 4.0 07/13/17 22:00 97 07/13/17 21:19 93 133/74 (93) 07/13/17 20:24 36.4 86 18 136/70 (92) 97 Nasal Cannula 3.0 07/13/17 20:14 84 18 97 Nasal Cannula 4.0 07/13/17 20:00 97 07/13/17 16:00 Nasal Cannula 4.0 Lab Results: Results Past 24 Hours Test 07/14/17 07:44 07/14/17 12:54 Range/Units White Blood Count 13.51 4.8-10.8 K/uL Red Blood Count 3.04 4.2-5.4 M/uL Hemoglobin 9.1 12.0-16.0 g/dL Hematocrit 29.2 37-47 % Mean Corpuscular Volume 96.1 80-100 fL Mean Corpuscular Hemoglobin 29.9 25-34 pg Mean Corpuscular Hemoglobin Concent 31.2 32-36 g/dl RDW Standard Deviation 50.1 36.4-46.3 fL RDW Coefficient of Variation 14.2 11.5-14.5 % Platelet Count 200 130-400 K/uL Mean Platelet Volume 8.9 7.4-10.4 fL Sodium Level 137 136-145 mmol/L Potassium Level 4.0 3.5-5.1 mmol/L Chloride Level 96 98-107 mmol/L Carbon Dioxide Level 35 21-32 mmol/L Anion Gap 6.0 3-11 mmol/L Blood Urea Nitrogen 28 7-18 mg/dl Creatinine 1.33 0.60-1.20 mg/dl Est Creatinine Clear Calc Drug Dose 48.2 ml/min Estimated GFR () 47.2 Estimated GFR (Non- 40.7 BUN/Creatinine Ratio 20.9 10-20 Random Glucose 156 70-99 mg/dl Calcium Level 9.4 8.5-10.1 mg/dl Magnesium Level 1.8 1.8-2.4 mg/dl Procalcitonin < 0.05 0-0.5 ng/ml
[2017-07-15] VITALS (9 sets, daily range): BP systolic 149–153; BP diastolic 70–80; PULSE 69–84; TEMP 36.7–37.1; O2SAT 92–98
[2017-07-15] MEDS: METHYLPREDNISOLONE IV 40 MG in SYRINGE 0 ML IV SCH ×3 (02:25→20:19)
[2017-07-15] MEDS: LEVOFLOXACIN 250MG / D5W IV SCH (03:22)
[2017-07-15] MEDS: LEVOTHYROXINE 88 MCG TAB PO SCH (05:37)
[2017-07-15] MEDS: IPRATROPIUM BROMIDE NEB SOLN 0.02% 2.5 ML VIAL INH SCH ×5 (07:51→23:09)
[2017-07-15] MEDS: LEVALBUTEROL 1.25MG/0.5ML NEB INH SCH ×5 (07:51→23:09)
[2017-07-15] MEDS: ROFLUMILAST 500 MCG TAB PO SCH (08:29)
[2017-07-15] MEDS: ATORVASTATIN 20 MG TAB PO SCH (08:29)
[2017-07-15] MEDS: METOPROLOL SUCC 50MG EXT REL TAB PO SCH (08:29)
[2017-07-15] MEDS: ASPIRIN 81 MG ECTAB PO SCH (08:29)
[2017-07-15] MEDS: ROPINIROLE HCL 5 MG TAB PO SCH (08:30)
[2017-07-15] MEDS: FERROUS SULFATE 325 MG TAB PO SCH (08:30)
[2017-07-15] MEDS: GABAPENTIN 300 MG CAP PO SCH ×3 (08:30→20:11)
[2017-07-15] MEDS: PROPAFENONE HCL 150 MG TAB PO SCH ×3 (08:30→20:11)
[2017-07-15] MEDS: ALLOPURINOL 300 MG TAB PO SCH (08:30)
[2017-07-15] MEDS: SERTRALINE HCL 50 MG TAB PO SCH (08:31)
[2017-07-15] MEDS: RANITIDINE HCL 150 MG TAB PO SCH ×2 (08:31→20:11)
[2017-07-15] MEDS: HEPARIN SOD 5000 UNIT/0.5 ML CARP SQ SCH ×3 (08:38→20:15)
[2017-07-15 10:15] LABS: CALCIUM 9.4 mg/dl (8.5-10.1); CREATININE 1.51 mg/dl (0.60-1.20); POTASSIUM 3.9 mmol/L (3.5-5.1)
[2017-07-15] MEDS: ONDANSETRON INJ 2 MG/ML 2 ML VIAL IV PRN (13:44)
--- NOTE | 2017-07-15 15:32 | Progress Note ---
Internal Med Progress Note Date of Service: Jul 15, 2017. Provider Documentation: SUBJECTIVE: Seen and examined at bedside Patient was reported to be confused today She has refused using BiPAP at night Currently seemed to be more oriented Family at bedside Reports SOB and cough is improved Denies chest pain, dizziness No other complaints OBJECTIVE: Vital Signs-as noted below Physical Exam: General Appearance:Obese, no apparent distress Head: normocephalic, Atraumatic Eyes: normal inspection, EOMI, PERRL Neck: supple, Trachea midline Respiratory/Chest: Decreased breath sounds, mild wheezes Cardiovascular: S1, S2, No murmur Abdomen/GI:Soft, Non tender, Bowel sounds present Extremities/Musculoskelatal:normal inspection, B/L edema Neurologic/Psych:AAOX3, grossly no focal neurological deficits Skin: normal color, warm Lab data as noted below. ASSESSMENT & PLAN: Patient is a 67 yr female with history of COPD, Chronic Oxygen dependency, CHF Diastolic, Afib, CKD IV presents with worsening SOB and dry cough since few days. Acute on Chronic COPD Exacerbation: Chronic Oxygen dependency Possible Acute Bronchitis Influenza: Negative Blood cultures: No growth to date Continue Nebs, Solumedrol, Levaquin Will taper down Solumedrol Appreciate Pulmonology Input Continue BiPAP QHS and PRN Maintain Sats 88-92% Continue incentive spirometry and flutter valve. Leukocytosis likely from steroids Procalcitonin normal Continue Daliresp [place] ON CKD IV Resolved baseline ~1.4, now 1.8 hold Metolazone for now S/P IV fluids Cr back to baseline monitor renal function A FIB Continue Propafenone and Metoprolol for rate control Also on ASA Previously on amiodarone which was later discontinued. Confirmed with Pharmacy Chronic diastolic CHF on the dry side hold Metolazone HTN monitor DVT Px: Heparin SQ Code Status: Full Code DISPOSITION lives at home ff up with PCP Dr. Melendez [facility] Vital Signs: Date Time Temp Pulse Resp B/P (MAP) Pulse Ox O2 Delivery O2 Flow Rate FiO2 07/15/17 15:14 77 18 98 BiPAP/CPAP 4.0 35 07/15/17 11:27 80 18 94 Nasal Cannula 4.0 07/15/17 08:00 Nasal Cannula 4.0 07/15/17 07:54 78 16 98 Nasal Cannula 4.0 07/15/17 07:22 37.1 79 20 153/70 (97) 96 Nasal Cannula 4.0 07/14/17 23:53 36.8 84 18 152/81 (104) 98 Nasal Cannula 4.0 07/14/17 23:45 BiPAP 07/14/17 23:27 76 98 35 07/14/17 23:26 76 16 99 BiPAP/CPAP 35 07/14/17 19:13 88 16 91 Nasal Cannula 3.0 07/14/17 17:00 36.7 90 18 152/75 (100) 96 Nasal Cannula 3.0 07/14/17 16:00 Nasal Cannula 3.0 07/14/17 15:34 36.6 91 20 153/78 (103) 100 Nasal Cannula 4.0 Lab Results: Results Past 24 Hours Test 07/15/17 09:04 Range/Units Sodium Level 136 136-145 mmol/L Potassium Level 3.9 3.5-5.1 mmol/L Chloride Level 94 98-107 mmol/L Carbon Dioxide Level 37 21-32 mmol/L Anion Gap 5.0 3-11 mmol/L Blood Urea Nitrogen 36 7-18 mg/dl Creatinine 1.51 0.60-1.20 mg/dl Est Creatinine Clear Calc Drug Dose 42.5 ml/min Estimated GFR () 40.4 Estimated GFR (Non- 34.9 BUN/Creatinine Ratio 23.5 10-20 Random Glucose 145 70-99 mg/dl Calcium Level 9.4 8.5-10.1 mg/dl Magnesium Level 1.9 1.8-2.4 mg/dl
[2017-07-16] VITALS (10 sets, daily range): BP systolic 143–166; BP diastolic 76–80; PULSE 71–88; TEMP 36.8; O2SAT 62–98
[2017-07-16] MEDS: LEVOFLOXACIN 250MG / D5W IV SCH (02:32)
[2017-07-16] MEDS: IPRATROPIUM BROMIDE NEB SOLN 0.02% 2.5 ML VIAL INH SCH ×6 (03:17→23:36)
[2017-07-16] MEDS: LEVALBUTEROL 1.25MG/0.5ML NEB INH SCH ×6 (03:17→23:36)
[2017-07-16] MEDS: LEVOTHYROXINE 88 MCG TAB PO SCH (05:44)
[2017-07-16] MEDS: ACETAMINOPHEN 325 MG TAB PO PRN ×2 (05:45→18:12)
[2017-07-16] MEDS: METHYLPREDNISOLONE IV 40 MG in SYRINGE 0 ML IV SCH (08:41)
[2017-07-16] MEDS: ALLOPURINOL 300 MG TAB PO SCH (08:43)
[2017-07-16] MEDS: ATORVASTATIN 20 MG TAB PO SCH (08:44)
[2017-07-16] MEDS: SERTRALINE HCL 50 MG TAB PO SCH (08:44)
[2017-07-16] MEDS: RANITIDINE HCL 150 MG TAB PO SCH ×2 (08:44→19:53)
[2017-07-16] MEDS: ASPIRIN 81 MG ECTAB PO SCH (08:44)
[2017-07-16] MEDS: FERROUS SULFATE 325 MG TAB PO SCH (08:44)
[2017-07-16] MEDS: ROPINIROLE HCL 5 MG TAB PO SCH (08:45)
[2017-07-16] MEDS: GABAPENTIN 300 MG CAP PO SCH ×4 (08:45→19:53)
[2017-07-16 08:46] LABS: HEMATOCRIT 31.2 % (37-47); HEMOGLOBIN 9.6 g/dL (12.0-16.0); MEAN CELL VOLUME 96.3 fL (80-100); MEAN CORPUSCULAR HEMOGLOBIN 29.6 pg (25-34); MEAN CORPUSCULAR HGB CONC 30.8 g/dl (32-36); NUCLEATED RED BLOOD CELL ABS 0.03 K/uL (0-0); PLATELET COUNT 231 K/uL (130-400); RED CELL DISTRIBUTION WIDTH CV 14.4 % (11.5-14.5); WHITE BLOOD COUNT 15.09 K/uL (4.8-10.8)
[2017-07-16] MEDS: ROFLUMILAST 500 MCG TAB PO SCH (08:46)
[2017-07-16] MEDS: PROPAFENONE HCL 150 MG TAB PO SCH ×4 (08:49→19:53)
[2017-07-16] MEDS: METOPROLOL SUCC 50MG EXT REL TAB PO SCH (08:49)
[2017-07-16] MEDS: HEPARIN SOD 5000 UNIT/0.5 ML CARP SQ SCH ×3 (08:53→19:55)
[2017-07-16 09:45] LABS: CALCIUM 9.7 mg/dl (8.5-10.1); CREATININE 1.69 mg/dl (0.60-1.20); POTASSIUM 3.9 mmol/L (3.5-5.1)
--- NOTE | 2017-07-16 12:57 | Progress Note ---
Internal Med Progress Note Date of Service: Jul 16, 2017. Provider Documentation: SUBJECTIVE: Seen and examined at bedside Doing well this morning but later got confused and agitated, demanding to be discharged home Not using BiPAP as suggested Will repeat ABG today She is oriented to place. Doesn't remember date, date of or home address Discussed with patient's daughter who is POA, who is on her way to hospital She denies SOB, chest pain, dizziness less cough No other complaints OBJECTIVE: Vital Signs-as noted below Physical Exam: General Appearance:Obese, no apparent distress Head: normocephalic, Atraumatic Eyes: normal inspection, EOMI, PERRL Neck: supple, Trachea midline Respiratory/Chest: Decreased breath sounds, mild scattered wheezes Cardiovascular: S1, S2, No murmur Abdomen/GI:Soft, Non tender, Bowel sounds present Extremities/Musculoskelatal:normal inspection, B/L edema Neurologic/Psych:AAOX3, grossly no focal neurological deficits Skin: normal color, warm Lab data as noted below. ASSESSMENT & PLAN: Patient is a 67 yr female with history of COPD, Chronic Oxygen dependency, CHF Diastolic, Afib, CKD IV presents with worsening SOB and dry cough since few days. Acute on Chronic COPD Exacerbation: Chronic Oxygen dependency Possible Acute Bronchitis Influenza: Negative Blood cultures: No growth to date Continue Nebs, Solumedrol, Levaquin Taper Solumedrol to PO prednisone in AM Appreciate Pulmonology Input Continue BiPAP and Oxygen PRN Maintain Sats 88-92% Continue incentive spirometry and flutter valve. Leukocytosis likely from steroids Procalcitonin normal Continue Daliresp Metabolic Encephalopathy:Patient not using BiPAP as advised, also refuses oxygen intermittently Likely secondary to Hypercarbia Will repeat ABG today Will request Pulmonary to re-evaluate if necessary [place] ON CKD IV baseline ~1.4 Cr:1.6 today hold Metolazone for now S/P IV fluids monitor renal function A FIB Continue Propafenone and Metoprolol for rate control Also on ASA Previously on amiodarone which was later discontinued. Confirmed with Pharmacy Chronic diastolic CHF on the dry side hold Metolazone HTN monitor DVT Px: Heparin SQ Code Status: Full Code DISPOSITION lives at home ff up with PCP Dr. Melendez, [facility] Vital Signs: Date Time Temp Pulse Resp B/P (MAP) Pulse Ox O2 Delivery O2 Flow Rate FiO2 07/16/17 08:48 80 143/76 (98) 07/16/17 07:29 78 20 97 Nasal Cannula 4.0 07/16/17 07:26 36.8 80 20 166/78 (107) 90 Nasal Cannula 4.0 07/16/17 07:20 Nasal Cannula 4.0 07/16/17 03:17 78 20 98 BiPAP/CPAP 4.0 35 07/16/17 00:00 BiPAP 07/15/17 23:46 36.7 84 19 149/80 (103) 96 Nasal Cannula 4.0 07/15/17 23:11 78 20 96 Nasal Cannula 4.0 07/15/17 19:10 76 98 35 07/15/17 19:09 71 20 98 BiPAP/CPAP 4.0 35 07/15/17 19:00 BiPAP 07/15/17 16:25 69 20 151/79 (103) 92 BiPAP 07/15/17 15:15 BiPAP 4.0 07/15/17 15:14 77 18 98 BiPAP/CPAP 4.0 35 Lab Results: Results Past 24 Hours Test 07/16/17 08:21 07/16/17 12:39 Range/Units White Blood Count 15.09 4.8-10.8 K/uL Red Blood Count 3.24 4.2-5.4 M/uL Hemoglobin 9.6 12.0-16.0 g/dL Hematocrit 31.2 37-47 % Mean Corpuscular Volume 96.3 80-100 fL Mean Corpuscular Hemoglobin 29.6 25-34 pg Mean Corpuscular Hemoglobin Concent 30.8 32-36 g/dl RDW Standard Deviation 51.0 36.4-46.3 fL RDW Coefficient of Variation 14.4 11.5-14.5 % Platelet Count 231 130-400 K/uL Mean Platelet Volume 9.0 7.4-10.4 fL Nucleated RBC Absolute Count (auto) 0.03 0-0 K/uL Nucleated Red Blood Cells % 0.2 % Sodium Level 136 136-145 mmol/L Potassium Level 3.9 3.5-5.1 mmol/L Chloride Level 94 98-107 mmol/L Carbon Dioxide Level 37 21-32 mmol/L Anion Gap 5.0 3-11 mmol/L Blood Urea Nitrogen 44 7-18 mg/dl Creatinine 1.69 0.60-1.20 mg/dl Est Creatinine Clear Calc Drug Dose 37.9 ml/min Estimated GFR () 35.3 Estimated GFR (Non- 30.5 BUN/Creatinine Ratio 26.1 10-20 Random Glucose 130 70-99 mg/dl Calcium Level 9.7 8.5-10.1 mg/dl Magnesium Level 2.0 1.8-2.4 mg/dl
[2017-07-16] MEDS ORDERED: MoRPHine SULFATE 2 MG/ML CARP ONE (13:17)
[2017-07-16] MEDS ORDERED: MoRPHine SULFATE 2 MG/ML CARP IV ONE (13:30)
[2017-07-16] MEDS ORDERED: HALOPERIDOL 1 MG TAB PO PRN (21:15)
[2017-07-16] MEDS ORDERED: HALOPERIDOL LACTATE 5 MG/ML 1 ML VIAL IM PRN (21:15)
[2017-07-16] MEDS: HYDROmorphone INJ 1 MG/ML SYR IV PRN (23:37)
[2017-07-17] VITALS (11 sets, daily range): BP systolic 145–190; BP diastolic 68–110; PULSE 73–106; TEMP 36.5–36.8; O2SAT 92–98
[2017-07-17] MEDS ORDERED: ACETAMINOPHEN IV 650 MG in EMPTY BAG 0 ML IV PRN (01:00)
[2017-07-17] MEDS: IPRATROPIUM BROMIDE NEB SOLN 0.02% 2.5 ML VIAL INH SCH ×6 (03:58→23:05)
[2017-07-17] MEDS: LEVALBUTEROL 1.25MG/0.5ML NEB INH SCH ×6 (03:58→23:05)
[2017-07-17] MEDS: HYDROmorphone INJ 1 MG/ML SYR IV PRN (05:39)
[2017-07-17] MEDS ORDERED: NURSING DECISION MEDICATION ORDER SCH (05:45)
[2017-07-17 06:33] LABS: CALCIUM 9.5 mg/dl (8.5-10.1); CREATININE 1.55 mg/dl (0.60-1.20); POTASSIUM 3.9 mmol/L (3.5-5.1)
[2017-07-17] MEDS ORDERED: MICONAZOLE NITRATE POWDER 43 GM EXT PRN (07:45)
[2017-07-17] MEDS: FERROUS SULFATE 325 MG TAB PO SCH (08:35)
[2017-07-17] MEDS: ASPIRIN 81 MG ECTAB PO SCH (08:35)
[2017-07-17] MEDS: ALLOPURINOL 300 MG TAB PO SCH (08:35)
[2017-07-17] MEDS: SERTRALINE HCL 50 MG TAB PO SCH (08:36)
[2017-07-17] MEDS: RANITIDINE HCL 150 MG TAB PO SCH ×2 (08:36→19:38)
[2017-07-17] MEDS: LEVOFLOXACIN 250 MG TAB PO SCH (08:36)
[2017-07-17] MEDS: GABAPENTIN 300 MG CAP PO SCH ×3 (08:38→19:38)
[2017-07-17] MEDS: LEVOTHYROXINE 88 MCG TAB PO SCH (08:38)
[2017-07-17] MEDS: TRAMADOL HCL 50 MG TAB PO PRN ×2 (08:45→19:38)
[2017-07-17] MEDS: ROFLUMILAST 500 MCG TAB PO SCH (08:46)
[2017-07-17] MEDS: ROPINIROLE HCL 5 MG TAB PO SCH (08:46)
[2017-07-17] MEDS: METOPROLOL SUCC 50MG EXT REL TAB PO SCH (08:46)
[2017-07-17] MEDS: ATORVASTATIN 20 MG TAB PO SCH (08:46)
[2017-07-17] MEDS: PROPAFENONE HCL 150 MG TAB PO SCH ×3 (08:47→19:37)
[2017-07-17] MEDS: HEPARIN SOD 5000 UNIT/0.5 ML CARP SQ SCH ×3 (08:52→19:39)
[2017-07-17] MEDS: ACETAMINOPHEN 325 MG TAB PO PRN (11:48)
--- NOTE | 2017-07-17 13:57 | Progress Note ---
Internal Med Progress Note Date of Service: Jul 17, 2017. Provider Documentation: SUBJECTIVE: Seen and examined at bedside Doing much better today Tolerating BiPAP better Mental status seemed to back to baseline Family at bedside She denies SOB, chest pain, dizziness less cough No other complaints Eager to get discharged OBJECTIVE: Vital Signs-as noted below Physical Exam: General Appearance:Obese, no apparent distress Head: normocephalic, Atraumatic Eyes: normal inspection, EOMI, PERRL Neck: supple, Trachea midline Respiratory/Chest: Decreased breath sounds, mild scattered wheezes Cardiovascular: S1, S2, No murmur Abdomen/GI:Soft, Non tender, Bowel sounds present Extremities/Musculoskelatal:normal inspection, B/L edema Neurologic/Psych:AAOX3, grossly no focal neurological deficits Skin: normal color, warm Lab data as noted below. ASSESSMENT & PLAN: Patient is a 67 yr female with history of COPD, Chronic Oxygen dependency, CHF Diastolic, Afib, CKD IV presents with worsening SOB and dry cough since few days. Acute on Chronic COPD Exacerbation: Chronic Oxygen dependency Possible Acute Bronchitis Influenza: Negative Blood cultures: No growth to date Continue Nebs, Solumedrol, Levaquin Taper Solumedrol to PO prednisone Appreciate Pulmonology Input Continue BiPAP and Oxygen PRN Maintain Sats 88-92% Continue incentive spirometry and flutter valve. Leukocytosis secondary to steroids Procalcitonin normal Continue Daliresp Metabolic Encephalopathy: Tolerating BiPAP better today mental status back to baseline [place] ON CKD IV baseline ~1.4 Cr:1.6 today hold Metolazone for now S/P IV fluids monitor renal function A FIB Continue Propafenone and Metoprolol for rate control Also on ASA Previously on amiodarone which was later discontinued. Confirmed with Pharmacy Chronic diastolic CHF on the dry side hold Metolazone HTN monitor DVT Px: Heparin SQ Code Status: Full Code DISPOSITION lives at home ff up with PCP Dedrick Juares [facility] Vital Signs: Date Time Temp Pulse Resp B/P (MAP) Pulse Ox O2 Delivery O2 Flow Rate FiO2 07/17/17 11:22 85 18 96 Nasal Cannula 4.0 07/17/17 08:47 36.8 82 20 149/70 (96) 92 Nasal Cannula 4.0 07/17/17 08:00 Nasal Cannula 4.0 07/17/17 07:32 85 18 98 BiPAP/CPAP 4.0 07/17/17 03:58 81 18 97 BiPAP/CPAP 4.0 07/17/17 00:05 BiPAP 4.0 07/17/17 00:02 36.5 73 16 145/68 (93) 97 BiPAP 07/16/17 23:36 74 21 96 BiPAP/CPAP 4.0 07/16/17 18:13 88 20 97 BiPAP/CPAP 4.0 07/16/17 16:00 BiPAP 4.0 07/16/17 15:30 71 20 95 BiPAP/CPAP 4.0 07/16/17 14:02 80 145/80 (101) Lab Results: Results Past 24 Hours Test 07/16/17 23:20 07/17/17 00:00 07/17/17 05:32 Range/Units Arterial Blood pH 7.39 7.39 7.35-7.45 Arterial Blood Partial Pressure CO2 68 70 35-46 mmHg Arterial Blood Partial Pressure O2 66 77 80-95 mm/Hg Arterial Blood HCO3 40 42 19-24 mmol/L Arterial Blood Oxygen Saturation 90.7 92.8 90-95 % Arterial Blood Base Excess 13.1 14.5 -9-1.8 mEq/L Arterial Blood Gas Delivery 4.5 L 4L Alvaro Test POS POS POS Urine Color YELLOW Urine Appearance CLEAR CLEAR Urine pH 5.5 4.5-7.5 Urine Specific [place] 1.021 1.000-1.030 Urine Protein NEG NEG Urine Glucose (UA) NEG NEG Urine Ketones NEG NEG Urine Occult Blood NEG NEG Urine Nitrite NEG NEG Urine Bilirubin NEG NEG Urine Urobilinogen NEG NEG Urine Leukocyte Esterase NEG NEG Urine WBC (Auto) 0 0-5 /hpf Urine RBC (Auto) 0-4 0-4 /hpf Urine Hyaline Casts (Auto) 0 0-5 /lpf Urine Epithelial Cells (Auto) 0-5 0-5 /lpf Urine Bacteria (Auto) NEG NEG Sodium Level 140 136-145 mmol/L Potassium Level 3.9 3.5-5.1 mmol/L Chloride Level 97 98-107 mmol/L Carbon Dioxide Level 43 21-32 mmol/L Anion Gap 3.0 3-11 mmol/L Blood Urea Nitrogen 46 7-18 mg/dl Creatinine 1.55 0.60-1.20 mg/dl Est Creatinine Clear Calc Drug Dose 41.4 ml/min Estimated GFR () 39.2 Estimated GFR (Non- 33.8 BUN/Creatinine Ratio 29.4 10-20 Random Glucose 89 70-99 mg/dl Calcium Level 9.5 8.5-10.1 mg/dl Magnesium Level 2.1 1.8-2.4 mg/dl
[2017-07-17] MEDS ORDERED: HYDROmorphone INJ 0.5 MG/0.5 ML SYR IV ONE (14:39)
[2017-07-18 00:10] VITALS: O2SAT 94
[2017-07-18 00:21] VITALS: BP_SYST 170; BP_SYST 181; BP_DIAS 83; BP_DIAS 84
[2017-07-18] MEDS ORDERED: METOPROLOL SUCC 25MG EXT REL TAB PO ONE (00:35)
[2017-07-18 01:50] VITALS: BP 176/95; PULSE 83; O2SAT 94
[2017-07-18] MEDS: TRAMADOL HCL 50 MG TAB PO PRN (02:32)
[2017-07-18 03:03] VITALS: PULSE 73; O2SAT 96
[2017-07-18] MEDS: LEVALBUTEROL 1.25MG/0.5ML NEB INH SCH ×2 (03:03→07:46)
[2017-07-18] MEDS: IPRATROPIUM BROMIDE NEB SOLN 0.02% 2.5 ML VIAL INH SCH ×2 (03:03→07:46)
[2017-07-18] MEDS: ACETAMINOPHEN 325 MG TAB PO PRN (04:38)
[2017-07-18] MEDS: LEVOTHYROXINE 88 MCG TAB PO SCH (06:10)
[2017-07-18 07:13] LABS: CALCIUM 8.8 mg/dl (8.5-10.1); CREATININE 1.51 mg/dl (0.60-1.20); POTASSIUM 3.3 mmol/L (3.5-5.1)
[2017-07-18 07:15] VITALS: BP_SYST 170; BP_SYST 171; BP_DIAS 103; BP_DIAS 89; PULSE 75; TEMP 36.7; O2SAT 99
[2017-07-18] MEDS: LEVOFLOXACIN 250 MG TAB PO SCH (07:54)
[2017-07-18] MEDS: GABAPENTIN 300 MG CAP PO SCH (07:54)
[2017-07-18] MEDS: ASPIRIN 81 MG ECTAB PO SCH (07:55)
[2017-07-18] MEDS: ATORVASTATIN 20 MG TAB PO SCH (07:55)
[2017-07-18] MEDS: FERROUS SULFATE 325 MG TAB PO SCH (07:55)
[2017-07-18] MEDS: ALLOPURINOL 300 MG TAB PO SCH (07:56)
[2017-07-18] MEDS: ROFLUMILAST 500 MCG TAB PO SCH (07:56)
[2017-07-18] MEDS: ROPINIROLE HCL 5 MG TAB PO SCH (07:56)
[2017-07-18] MEDS: PROPAFENONE HCL 150 MG TAB PO SCH (07:57)
[2017-07-18] MEDS: RANITIDINE HCL 150 MG TAB PO SCH (07:57)
[2017-07-18] MEDS: SERTRALINE HCL 50 MG TAB PO SCH (07:57)
[2017-07-18] MEDS: HEPARIN SOD 5000 UNIT/0.5 ML CARP SQ SCH (08:24)
[2017-07-18] MEDS ORDERED: POTASSIUM CHLORIDE 10 MEQ TABCR PO STA (08:42)
--- NOTE | 2017-07-18 08:48 | Progress Note ---
Internal Med Progress Note Date of Service: Jul 18, 2017. Provider Documentation: SUBJECTIVE: Seen and examined at bedside Eager to get discharged No complaints Confusion resolved Family at bedside She denies SOB, cough,chest pain, dizziness OBJECTIVE: Vital Signs-as noted below Physical Exam: General Appearance:Obese, no apparent distress Head: normocephalic, Atraumatic Eyes: normal inspection, EOMI, PERRL Neck: supple, Trachea midline Respiratory/Chest: Decreased breath sounds, CTA Cardiovascular: S1, S2, No murmur Abdomen/GI:Soft, Non tender, Bowel sounds present Extremities/Musculoskelatal:normal inspection, B/L edema Neurologic/Psych:AAOX3, grossly no focal neurological deficits Skin: normal color, warm Lab data as noted below. ASSESSMENT & PLAN: Patient is a 67 yr female with history of COPD, Chronic Oxygen dependency, CHF Diastolic, Afib, CKD IV presents with worsening SOB and dry cough since few days. Acute on Chronic COPD Exacerbation: Chronic Oxygen dependency Possible Acute Bronchitis Influenza: Negative Blood cultures: No growth to date Continue Nebs, Solumedrol Completed Levaquin course Taper Solumedrol to PO prednisone to continue upon discharge Appreciate Pulmonology Input Continue BiPAP and Oxygen PRN Maintain Sats 88-92% Continue incentive spirometry and flutter valve. Leukocytosis secondary to steroids Procalcitonin normal Continue Daliresp Metabolic Encephalopathy: Resolved using BiPAP as advised mental status back to baseline [place] ON CKD IV baseline ~1.4 Cr:1.5 today Resume Metolazone S/P IV fluids monitor renal function A FIB Continue Propafenone and Metoprolol for rate control Also on ASA Previously on amiodarone which was later discontinued. Confirmed with Pharmacy Chronic diastolic CHF on the dry side resume Metolazone HTN monitor DVT Px: Heparin SQ Code Status: Full Code DISPOSITION Plan to discharge home today Patient refused Rehab placement or Home Health services Daughter prefers to take care of patient at home Follow up with your PCP Dr. Melendez in 1 week Follow up with your Library Information Technician in 2 weeks Complete the prednisone course as prescribed Seek immediate medical attention if your symptoms reoccur or worsen Use your Nebulizers and BiPAP regularly as advised Vital Signs: Date Time Temp Pulse Resp B/P (MAP) Pulse Ox O2 Delivery O2 Flow Rate FiO2 07/18/17 07:15 36.7 75 18 171/89 (116) 99 Nasal Cannula 4.0 170/103 (125) 07/18/17 03:03 73 18 96 BiPAP/CPAP 4.0 07/18/17 01:50 83 176/95 (122) 94 07/18/17 00:21 170/84 (112) 07/18/17 00:21 181/83 (115) 07/18/17 00:10 94 BiPAP 4.0 35 07/17/17 23:34 180/100 (126) 07/17/17 23:26 36.7 106 18 190/110 (136) 95 Nasal Cannula 4.0 07/17/17 23:05 78 18 94 BiPAP/CPAP 4.0 07/17/17 20:08 84 18 98 BiPAP/CPAP 4.0 07/17/17 16:02 36.8 79 18 151/79 (103) 96 BiPAP 07/17/17 16:00 BiPAP 4.0 07/17/17 15:35 84 18 98 BiPAP/CPAP 4.0 07/17/17 11:22 85 18 96 Nasal Cannula 4.0 Lab Results: Results Past 24 Hours Test 07/18/17 06:26 Range/Units Sodium Level 139 136-145 mmol/L Potassium Level 3.3 3.5-5.1 mmol/L Chloride Level 97 98-107 mmol/L Carbon Dioxide Level 39 21-32 mmol/L Anion Gap 3.0 3-11 mmol/L Blood Urea Nitrogen 40 7-18 mg/dl Creatinine 1.51 0.60-1.20 mg/dl Est Creatinine Clear Calc Drug Dose 42.5 ml/min Estimated GFR () 40.4 Estimated GFR (Non- 34.9 BUN/Creatinine Ratio 26.4 10-20 Random Glucose 82 70-99 mg/dl Calcium Level 8.8 8.5-10.1 mg/dl Magnesium Level 1.9 1.8-2.4 mg/dl
[2017-07-18] MEDS ORDERED: PRD10 PO (09:03)
--- NOTE | 2017-07-18 09:06 | Discharge Summary ---
Discharge Summary Date of Service Jul 18, 2017. Discharge Summary Admission Date: Jul 13, 2017 at 00:18 Discharge Disposition: Home Principal Diagnosis: Acute on chronic COPD Exacerbation Procedures: CXR: 1. Cardiomegaly with mild pulmonary vascular congestion. 2. No airspace consolidation or large pleural effusion is identified. Consultations: Pulmonology Pending Studies/Follow-Up: Follow up with your PCP Dr. Melendez in 1 week Follow up with your Materials Research Engineer in 2 weeks Complete the prednisone course as prescribed Seek immediate medical attention if your symptoms reoccur or worsen Use your Nebulizers and BiPAP regularly as advised Medication Reconciliation New Medications: Prednisone (Prednisone) 10 Mg Tab 10 MG PO UD for 12 Days, #30 TABS Start taking 40mg daily for 3 days, then 30mg for 3 days, then 20mg for 3 days, then 10mg for 3 days and stop Continued Medications: Acetaminophen (Tylenol) 325 Mg Tab 650 MG PO Q4H PRN for Pain or Fever, TAB Albuterol Hfa (Ventolin Hfa) 200 Puffs/29910 Mcg Aers 2-4 PUFFS INH Q6H, INHALER Albuterol Sulf (Proventil 0.083% 2.5MG/3ML) 2.5 Mg/3 Ml Nebu 2.5 MG NEB QID, EA Allopurinol (Zyloprim) 300 Mg Tab 300 MG PO DAILY, TAB Aspirin (Aspirin Ec) 81 Mg Tab 81 MG PO DAILY Atorvastatin (Lipitor) 20 Mg Tab 20 MG PO DAILY, TAB Benzonatate (Tessalon Perles) 100 Mg Cap 100 MG PO TID PRN for Cough, CAP Bumetanide (Bumex) 1 Mg Tab 1 TAB PO BID for 90 Days, #180 TAB 1 Refill Cholecalciferol (Vitamin D3) 1,000 Unit Tab 2000 INTER.UNIT PO DAILY, TAB Ferrous Sulfate (Ferrous Sulfate) 325 Mg Tab 325 MG PO DAILY Fluticasone Furoate-Vilanterol (Breo Ellipta 200-25 Mcg/INH) 1 Inh Inh 1 PUFF INH DAILY Gabapentin (Neurontin) 300 Mg Cap 300 MG PO TID, CAP Levothyroxine Sodium (Synthroid) 88 Mcg Tab 88 MCG PO DAILY, TAB Losartan Potassium (Cozaar) 50 Mg Tab 50 MG PO DAILY, TAB Metolazone (Metolazone) 2.5 Mg Tab 2.5 MG PO UD 2.5 mg by mouth twice per week on Wednesday and Wednesday. Metoprolol Succinate (Toprol Xl) 50 Mg Tab 50 MG PO DAILY, TAB Multivitamins/Minerals (Certavite/Antioxidants) 1 Tab Tab 1 TAB PO DAILY Potassium Ext Rel (Klor-Con) 20 Meq Tabcr 20 MEQ PO BID, TAB Propafenone Hcl (Propafenone Hcl) 150 Mg Tab 150 MG PO TID Ranitidine (Zantac) 150 Mg Tab 150 MG PO BID, TAB Roflumilast (Daliresp) 500 Mcg Tab 1 TAB PO DAILY for 90 Days, #90 TAB 3 Refills Ropinirole (Requip) 5 Mg Tab 5 MG PO DAILY, TAB Sertraline (Zoloft) 25 Mg Tab 25 MG PO DAILY, TAB Umeclidinium [place] (Incruse Ellipta) 62.5 Mcg/Inh Inh 1 PUFF INH DAILY Admission Information HPI (per Admitting provider): 67 year old female with history of COPD, CHF Diastolic, Afib, CKD 4, other problems noted below presenting with shortness of breath x few days. Patient was admitted early June for COPD Exacerbation- secondary to possible Pneumonia, CHF Exacerbation She reports that since before , she has been having progressive shortness of breath, productive cough, achy all over. At the ER, patient was saturating 97% on 4 liters. She was given nebs, solumedrol at the ER with some improvement. On exam, patient reports she feels somewhat improved compared to admission. Dyspnea is improving. Denies other symptoms. Physical Exam (per Admitting): General Appearance: WD/WN, no apparent distress Head: normocephalic, atraumatic Eyes: normal inspection, PERRL, EOMI, sclerae normal ENT: normal ENT inspection, hearing grossly normal, pharynx normal Neck: supple, no adenopathy, thyroid normal, no JVD, trachea midline Respiratory/Chest: chest non-tender, no respiratory distress, no accessory muscle use, + wheezing (scattered bilaterally, moderate) Cardiovascular: regular rate, rhythm, no edema, no JVD, no murmur Abdomen/GI: normal bowel sounds, non tender, soft Back: normal inspection, no CVA tenderness Extremities/Musculoskelatal: normal inspection, no calf tenderness, no pedal edema, normal range of motion Neurologic/Psych: microbiology quality control technician II-XII nml as tested, no motor/sensory deficits, alert , normal reflexes, oriented x 3 Skin: normal color, warm/dry, no rash Lymphatic: no adenopathy Hospital Course Patient is a 67 yr female with history of COPD, Chronic Oxygen dependency, CHF Diastolic, Afib, CKD IV presents with worsening SOB and dry cough since few days. Acute on Chronic COPD Exacerbation: Chronic Oxygen dependency Possible Acute Bronchitis Influenza: Negative Blood cultures: No growth to date Continue Nebs, Solumedrol Completed Levaquin course Taper Solumedrol to PO prednisone to continue upon discharge Appreciate Pulmonology Input Continue BiPAP and Oxygen PRN Maintain Sats 88-92% Continue incentive spirometry and flutter valve. Leukocytosis secondary to steroids Procalcitonin normal Continue Daliresp Metabolic Encephalopathy: Resolved using BiPAP as advised mental status back to baseline [place] ON CKD IV baseline ~1.4 Cr:1.5 today Resume Metolazone S/P IV fluids monitor renal function A FIB Continue Propafenone and Metoprolol for rate control Also on ASA Previously on amiodarone which was later discontinued. Confirmed with Pharmacy Chronic diastolic CHF on the dry side resume Metolazone HTN monitor DVT Px: Heparin SQ Code Status: Full Code DISPOSITION Plan to discharge home today Patient refused Rehab placement or Home Health services Daughter prefers to take care of patient at home Follow up with your PCP Dr. Melendez in 1 week Follow up with your Materials Research Engineer in 2 weeks Complete the prednisone course as prescribed Seek immediate medical attention if your symptoms reoccur or worsen Use your Nebulizers and BiPAP regularly as advised Total time spent on discharge = 34 minutes This includes examination of the patient, discharge planning, medication reconciliation, and communication with other providers. Discharge Instructions Discharge Instructions Date of Service Jul 18, 2017. Admission Reason for Admission: Copd Exacerbation Discharge Discharge Diagnosis / Problem: Acute on chronic COPD Exacerbation Discharge Goals Goal(s): Decrease discomfort, Improve function Activity Recommendations Activity Limitations: resume your previous activity Exercise/Sports Limitations: as tolerated . Instructions / Follow-Up Instructions / Follow-Up Follow up with your PCP Dr. Melendez in 1 week Follow up with your Materials Research Engineer in 2 weeks Complete the prednisone course as prescribed Seek immediate medical attention if your symptoms reoccur or worsen Use your Nebulizers and BiPAP regularly as advised Current Hospital Diet Patient's current hospital diet: AHA Diet (Heart Healthy) Discharge Diet Recommended Diet: AHA Diet (Heart Healthy) Pending Studies Studies pending at discharge: no Medical Emergencies . Who to Call and When: Medical Emergencies: If at any time you feel your situation is an emergency, please call 911 immediately. . Non-Emergent Contact Non-Emergency issues call your: Primary Care Provider, Materials Research Engineer Call Non-Emergent contact if: you have a fever, your pain is not controlled, your pain is worsening, your pain is unusual for you, your pain is concerning you, you have any medication questions Seek immediate medical attention if your symptoms reoccur or worsen . . "Provider Documentation" section prepared by Bautista Casper. . VTE Core Measure Inpt VTE Proph given/why not?: Unfractionated heparin SQ <Electronically signed by Bautista Casper MD> Signed: 07/18/17 0904 Signed: The status of this report is Signed * If report status is Draft, the document has not been finalized by the responsible provider.
[2017-07-18 09:14] VITALS: BP 170/103; PULSE 75; TEMP 36.7; O2SAT 99
[2017-07-19] MEDS ORDERED: METOPROLOL SUCC 25MG EXT REL TAB PO SCH (08:00)
== END 2017-07-18 10:20 | disposition home or self-care (01) | DRG 190 ==
LOC: EDBD 21:51 → C.EDA 21:52 → C.2T 07-13 00:18 → ENRESERV 07-13 00:40 → C.MS4W 07-14 16:49
PROVIDERS: ADMIT Internal Medicine; ATTEND Internal Medicine
DX: J44.1 Chronic obstructive pulmonary disease with (acute) exacerbation (principal); J96.22 Acute and chronic respiratory failure with hypercapnia; N18.4 Chronic kidney disease, stage 4 (severe); N17.9 Acute kidney failure, unspecified; J96.10 Chronic respiratory failure, unspecified whether with hypoxia or hypercapnia; I50.30 Unspecified diastolic (congestive) heart failure; E66.2 Morbid (severe) obesity with alveolar hypoventilation; J45.909 Unspecified asthma, uncomplicated; E78.5 Hyperlipidemia, unspecified; K21.9 Gastro-esophageal reflux disease without esophagitis; I48.0 Paroxysmal atrial fibrillation; Z96.641 Presence of right artificial hip joint; Z96.611 Presence of right artificial shoulder joint; I25.2 Old myocardial infarction; Z99.81 Dependence on supplemental oxygen; Z83.3 Family history of diabetes mellitus; Z87.891 Personal history of nicotine dependence; Z79.82 Long term (current) use of aspirin

== ENCOUNTER 2017-07-18 12:27 | Emergency (ER) | payer OTHER ==
[~2017-07-18] VITALS: Ht 162.6 cm; Wt 69.4 kg
[~2017-07-18 12:27] MED LIST changes: -AMIO200T4 PO; -BISO5TAB3 PO; +BUME1TAB PO; -DULO60CA44 PO; -FERR1TAB13 PO; +FERR1TAB62 PO; +LOSA50TA6 PO; +PRD10 PO; +PROP150T PO; +ROFL1TAB5 PO
[2017-07-18 12:33] VITALS: TEMP 36.5; Ht 162.6 cm; Wt 69.4 kg
[2017-07-18] MEDS ORDERED: FENTANYL CITRATE INJ 50 MCG/1 ML 2 ML VIAL IV STA (12:47)
--- NOTE | 2017-07-18 12:56 | EMERGENCY ROOM VISIT NOTE ---
History Report prepared by Warren: Neptali Galvez Under the Supervision of: Dr. Isidoro Sebastian M.D. 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 Pt fell going into house after being discharged this morning. Pt fell onto right shoulder. Positive hitting head, 4L of oxygen. Negative headache, being on blood thinners. Source of History: patient Onset: three hours ago Position: ankle (right) Timing: constant Associated Symptoms: No headache Note: Associated symptoms: right shoulder, hitting head Review of Systems See HPI for pertinent positives and negatives. A total of ten systems were reviewed and were otherwise negative. Past Medical & Surgical Medical Problems: (1) Abdominal pain (2) Asthma (3) CHF (congestive heart failure) (4) Chronic respiratory failure (5) CKD (chronic kidney disease), stage IV (6) COPD (chronic obstructive pulmonary disease) (7) Depression (8) Dyslipidemia (9) GERD (gastroesophageal reflux disease) (10) HTN (hypertension) (11) EVONNE (iron deficiency anemia) (12) Lumbar spinal stenosis (13) Morbid obesity (14) Myocardial infarction (15) Obesity hypoventilation syndrome (16) Paroxysmal a-fib (17) Respiratory failure, [id number] (18) Right hip pain Surgical Problems: (1) History of appendectomy (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 (4) Hx of cholecystectomy (5) S/P cervical spinal fusion (6) S/P wrist surgery Family History Diabetes mellitus MOTHER FH: CAD (coronary artery disease) MOTHER SISTER Social History Smoking Status: Former Smoker Alcohol Use: none Drug Use: none Marital Status: single Housing Status: lives with family Occupation Status: retired Current/Historical Medications Scheduled Albuterol Hfa (Ventolin Hfa), 2-4 PUFFS INH Q6H Albuterol Sulf (Proventil 0.083% 2.5MG/3ML), 2.5 MG NEB QID Allopurinol (Zyloprim), 300 MG PO DAILY Aspirin (Aspirin Ec), 81 MG PO DAILY Atorvastatin (Lipitor), 20 MG PO DAILY Bumetanide (Bumex), 1 TAB PO BID Cholecalciferol (Vitamin D3), 2,000 INTER.UNIT PO DAILY Ferrous Sulfate (Ferrous Sulfate), 325 MG PO DAILY Fluticasone Furoate-Vilanterol (Breo Ellipta 200-25 Mcg/INH), 1 PUFF INH DAILY Gabapentin (Neurontin), 300 MG PO TID Levothyroxine Sodium (Synthroid), 88 MCG PO DAILY Losartan Potassium (Cozaar), 50 MG PO DAILY Metolazone (Metolazone), 2.5 MG PO UD Metoprolol Succinate (Toprol Xl), 50 MG PO DAILY Multivitamins/Minerals (Certavite/Antioxidants), 1 TAB PO DAILY Potassium Ext Rel (Klor-Con), 20 MEQ PO BID Prednisone (Prednisone), 10 MG PO UD Propafenone Hcl (Propafenone Hcl), 150 MG PO TID Ranitidine (Zantac), 150 MG PO BID Roflumilast (Daliresp), 1 TAB PO DAILY Ropinirole (Requip), 5 MG PO DAILY Sertraline (Zoloft), 25 MG PO DAILY Umeclidinium [place] (Incruse Ellipta), 1 PUFF INH DAILY Scheduled PRN Acetaminophen (Tylenol), 650 MG PO Q4H PRN for Pain or Fever Benzonatate (Tessalon Perles), 100 MG PO TID PRN for Cough Allergies Coded Allergies: Adhesives (Verified Allergy, Severe, RED RASH, 06/18/17) Latex1 -Allergic Contact Dermititis (Verified Adverse Reaction, Mild, TAPE -SORE, 06/18/17) Morphine (Verified Adverse Reaction, Mild, DELUSIONS, 06/18/17) Physical Exam Vital Signs Date Time Temp Pulse Resp B/P (MAP) Pulse Ox O2 Delivery O2 Flow Rate FiO2 07/18/17 16:09 75 22 157/76 94 07/18/17 15:30 72 20 158/71 95 Nasal Cannula 4.0 07/18/17 14:04 76 20 110/47 98 CPAP 07/18/17 12:33 36.5 80 20 124/57 96 Room Air Physical Exam GENERAL: Awake, alert, well-appearing, NAD. obese. HENT: Normocephalic, atraumatic. Mo midline c-spine TTP, NC in place. EYES: Normal conjunctiva. Sclera non-icteric. NECK: Supple. No nuchal rigidity. FROM. RESPIRATORY: mild wheezing throughout CARDIAC: RRR, no MRG ABDOMEN: Soft, NTND, BS+ MSK: No chest wall TTP, no LE edema. Scar over right shoulder. Mild anterior right shoulder TTP without ecchymosis - NVI distally. RLE - Noted ecchymosis and swelling - NVI distally. NEURO: GCS 15, CN 2-12 intact, moves all 4s on command SKIN: No rash or jaundice noted. Medical Decision & Procedures ER Provider Diagnostic Interpretation: Radiology results as stated below per my review and radiologist interpretation: R TIBIA/FIBULA 2 VIEWS ROUTINE CLINICAL HISTORY: Trauma. COMPARISON: Right tibia and fibula radiographs June 22, 2013. FINDINGS: No acute fracture of the right tibia or fibula is identified. Soft tissue swelling of the lateral aspect the right lower leg may reflect a hematoma given the history of trauma. Degenerative changes of the right knee and ankle are noted. IMPRESSION: 1. No acute fracture of the right tibia or fibula. 2. Soft tissue swelling of the lateral right lower leg which may reflect a hematoma given history of trauma. Electronically signed by: Quentin Maier M.D. 07/18/2017 2:13 PM Dictated Date/Time: 07/18/2017 2:10 PM R SHOULDER MIN 2 VIEWS ROUTINE CLINICAL HISTORY: Right shoulder pain following trauma. COMPARISON: Right shoulder radiographs June 08, 2012. FINDINGS: Right shoulder arthroplasty is noted. Hardware is intact. Note is made of a subtle cortical lucency through the lateral right humeral neck. This could be artifactual. Old right-sided rib fractures are noted. A vertebral augmentation within the thoracic spine is incidentally noted. IMPRESSION: Status post right shoulder arthroplasty. Subtle cortical lucency of the lateral right humeral neck. This may be artifactual however a nondisplaced periprosthetic fracture could have this appearance. A CT of the right shoulder could be obtained. Electronically signed by: Quentin Maier M.D. 07/18/2017 2:18 PM Dictated Date/Time: 07/18/2017 2:[address] OF THE HEAD WITHOUT CONTRAST CLINICAL HISTORY: EVALUATE FOR TRAUMA/INJURY COMPARISON STUDY: Head CT June 07, 2016 and MRI of the brain June 23, 2017. TECHNIQUE: Helical axial images of the head were obtained without IV contrast. Automated exposure control was utilized for the study. A dose lowering technique was utilized adhering to the principles of ALARA. FINDINGS: No acute intracranial hemorrhage, midline shift or mass effect is present. Ventricular system is normal. Basilar cisterns are patent. There are no extra axial collections. Street-white differentiation is maintained. There are no findings to suggest acute dural sinus thrombosis or acute territorial infarct. No calvarial fracture is present. Mastoid air cells are clear. There is moderate mucosal thickening of the sinuses with secretions. IMPRESSION: 1. No acute intracranial findings. 2. No calvarial fracture. 3. Paranasal sinus disease, as described above. Electronically signed by: Quentin Maier M.D. 07/18/2017 2:34 PM Dictated Date/Time: 07/18/2017 2:31 PM CHEST ONE VIEW PORTABLE CLINICAL HISTORY: EVALUATE FOR TRAUMA/INJURY COMPARISON STUDY: Chest CT June 22, 2017 and chest radiograph July 12, 2017. FINDINGS: Right shoulder arthroplasty and thoracic vertebral augmentation are noted. Old right-sided rib fractures are present. Linear left basilar opacity is suggestive of atelectasis. Cardiomegaly is unchanged. There is no evidence for pulmonary edema. No airspace opacities are identified. IMPRESSION: No acute cardiopulmonary findings. No change in appearance of the chest. Electronically signed by: Quentin Maier M.D. 07/18/2017 2:20 PM Dictated Date/Time: 07/18/2017 2:[address] OF THE CERVICAL SPINE WITHOUT CONTRAST CLINICAL HISTORY: EVALUATE FOR TRAUMA/INJURY COMPARISON STUDY: CT of the cervical spine June 07, 2016. TECHNIQUE: Helical axial images of the cervical spine were obtained without IV contrast. Sagittal and coronal reconstructions were viewed. A dose lowering technique was utilized adhering to the principles of ALARA. FINDINGS: Straightening of the normal cervical lordosis is noted. There is no acute cervical spine fracture. Craniocervical junction is intact. There is evidence for a previous C5-C6 fusion and left C5 and C6 hemilaminectomies. Postoperative findings within the cervical spine are unchanged. There is no prevertebral edema. Exam is mildly compromised by motion artifact. Several thyroid nodules are suspected. IMPRESSION: No acute cervical spine fracture or subluxation. Electronically signed by: Quentin Maier M.D. 07/18/2017 2:38 PM Dictated Date/Time: 07/18/2017 2:34 PM R ANKLE MIN 3 VIEWS ROUTINE CLINICAL HISTORY: Right ankle pain following fall. Deformity. COMPARISON: Right tibia and fibula radiographs June 22, 2013. FINDINGS: No acute fracture of the right ankle is identified. Subtalar fusion is noted. Soft tissue swelling of the lateral aspect the right lower leg suggests a hematoma given history of trauma. Right midfoot osteoarthritis is noted. IMPRESSION: 1. No acute fracture or dislocation of the right ankle. 2. Subtalar fusion. 3. Soft tissue swelling of the lateral right lower leg which favors a hematoma given history of trauma. Electronically signed by: Quentin Maier M.D. 07/18/2017 2:14 PM Dictated Date/Time: 07/18/2017 2:13 PM Medications Administered Medications (Trade) Dose Ordered Sig/Rupinder Route Start Time Stop Time Status Last Admin Dose Admin Fentanyl Citrate (Fentanyl Inj) 50 mcg NOW STAT IV 07/18/17 12:47 07/18/17 12:51 DC 07/18/17 13:33 50 MCG ED Course 1241: The patient was evaluated in room A09B. A complete history and physical exam was performed. 1501: I reevaluated the patient. Discussed results and discharge instructions: she verbalized understanding and agreement. The patient is ready for discharge. 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 Differential diagnosis: Etiologies such as fracture, dislocation, neurovascular compromise, compartment syndrome, soft tissue injury, as well as others were entertained. Patient was seen and evaluated at the bedside. Patient was recently admitted and discharged for likely COPD exacerbation with possible concomitant CHF exacerbation. Patient purportedly obstructed into her home around 9-930 and did suffer a fall. Patient states that she did strike her head she is not complaining of any headache numbness, tingling, or weakness. Patient does have an obvious right lower extremity deformity but is neurovascularly intact. Patient also does have some mild right shoulder pain. Patient did have CTs of the head and neck as well as plain films completed. Patient was also given pain control. Patient's plain films of the lower extremity were negative. Patient just has hematoma of RLE. Patient did show a questionable cortical lucency of the periprosthetic right shoulder. I imagine this is likely to be nonoperative at this time; however, the patient was told to follow-up with orthopedics as an outpatient. CTs of the head and neck were negative. Patient was deemed suitable for outpatient follow-up and treatment given that she was just discharged this morning so no blood work was obtained. Patient was given strict follow-up, discharge, and return precautions. All questions were answered. Patient was deemed suitable for outpatient follow-up at this time. Patient agreed with the plan of care and was safely discharged home. Head Trauma GCS Score: 15 Medication Reconcilliation Current Medication List: was personally reviewed by me Blood Pressure Screening Patient's blood pressure: Normal blood pressure Blood pressure disposition: Did not require urgent referral Impression Primary Impression: Periprosthetic fracture around internal prosthetic right shoulder joint, initial encounter Additional Impressions: Fall Hematoma of skin Scribe Attestation The scribe's documentation has been prepared under my direction and personally reviewed by me in its entirety. I confirm that the note above accurately reflects all work, treatment, procedures, and medical decision making performed by me. Departure Information Dispostion Home / Self-Care Referrals Babak Melendez M.D.([facility]) (PCP) Patient Instructions ED Hematoma, ED Mechanical Fall, ED Prevention Fall, ED RICE, ED Sling, [facility] Additional Instructions Please return to the emergency department if you have worsening or recurrent symptoms not amenable to at-home treatment. Please call for a follow-up appointment with her primary care physician. Please take your medications as prescribed. If you have other concerns and/or complaints please feel free to also call your primary care physician's office or return the ED for further evaluation, management, and treatment. Take your medications as prescribed. Please follow-up with your orthopedist if you do have persistent shoulder discomfort. You may use a sling for comfort if you're shoulder does bother you. Please rest ice compress and elevate her right lower extremity to help relieve the bruising. You have been examined and treated today on an emergency basis only. This is not a substitute for, or an effort to provide, complete comprehensive medical care. It is impossible to recognize and treat all injuries or illnesses in a single emergency department visit. It is therefore important that you follow up closely with [facility], your PCP, and/or your specialist(s). Call as soon as possible for an appointment. Thank you for your time and consideration. I look forward to speaking with you again soon. Please don't hesitate to call us if you have any questions. Problem Qualifiers Additional Impressions: Fall Encounter type: initial encounter Qualified Codes: W19.XXXA - Unspecified fall, initial encounter
--- NOTE | 2017-07-18 14:14 | DIAGNOSTIC IMAGING REPORT ---
R TIBIA/FIBULA 2 VIEWS ROUTINE CLINICAL HISTORY: Trauma. COMPARISON: Right tibia and fibula radiographs June 22, 2013. FINDINGS: No acute fracture of the right tibia or fibula is identified. Soft tissue swelling of the lateral aspect the right lower leg may reflect a hematoma given the history of trauma. Degenerative changes of the right knee and ankle are noted. IMPRESSION: 1. No acute fracture of the right tibia or fibula. 2. Soft tissue swelling of the lateral right lower leg which may reflect a hematoma given history of trauma. Electronically signed by: Quentin Maier M.D. 07/18/2017 2:13 PM Dictated Date/Time: 07/18/2017 2:10 PM
--- NOTE | 2017-07-18 14:15 | DIAGNOSTIC IMAGING REPORT ---
R ANKLE MIN 3 VIEWS ROUTINE CLINICAL HISTORY: Right ankle pain following fall. Deformity. COMPARISON: Right tibia and fibula radiographs June 22, 2013. FINDINGS: No acute fracture of the right ankle is identified. Subtalar fusion is noted. Soft tissue swelling of the lateral aspect the right lower leg suggests a hematoma given history of trauma. Right midfoot osteoarthritis is noted. IMPRESSION: 1. No acute fracture or dislocation of the right ankle. 2. Subtalar fusion. 3. Soft tissue swelling of the lateral right lower leg which favors a hematoma given history of trauma. Electronically signed by: Quentin Maier M.D. 07/18/2017 2:14 PM Dictated Date/Time: 07/18/2017 2:13 PM
--- NOTE | 2017-07-18 14:19 | DIAGNOSTIC IMAGING REPORT ---
R SHOULDER MIN 2 VIEWS ROUTINE CLINICAL HISTORY: Right shoulder pain following trauma. COMPARISON: Right shoulder radiographs June 08, 2012. FINDINGS: Right shoulder arthroplasty is noted. Hardware is intact. Note is made of a subtle cortical lucency through the lateral right humeral neck. This could be artifactual. Old right-sided rib fractures are noted. A vertebral augmentation within the thoracic spine is incidentally noted. IMPRESSION: Status post right shoulder arthroplasty. Subtle cortical lucency of the lateral right humeral neck. This may be artifactual however a nondisplaced periprosthetic fracture could have this appearance. A CT of the right shoulder could be obtained. Electronically signed by: Quentin Maier M.D. 07/18/2017 2:18 PM Dictated Date/Time: 07/18/2017 2:14 PM
--- NOTE | 2017-07-18 14:21 | DIAGNOSTIC IMAGING REPORT ---
CHEST ONE VIEW PORTABLE CLINICAL HISTORY: EVALUATE FOR TRAUMA/INJURY COMPARISON STUDY: Chest CT June 22, 2017 and chest radiograph July 12, 2017. FINDINGS: Right shoulder arthroplasty and thoracic vertebral augmentation are noted. Old right-sided rib fractures are present. Linear left basilar opacity is suggestive of atelectasis. Cardiomegaly is unchanged. There is no evidence for pulmonary edema. No airspace opacities are identified. IMPRESSION: No acute cardiopulmonary findings. No change in appearance of the chest. Electronically signed by: Quentin Maier M.D. 07/18/2017 2:20 PM Dictated Date/Time: 07/18/2017 2:18 PM
--- NOTE | 2017-07-18 14:35 | DIAGNOSTIC IMAGING REPORT ---
CT OF THE HEAD WITHOUT CONTRAST CLINICAL HISTORY: EVALUATE FOR TRAUMA/INJURY COMPARISON STUDY: Head CT June 07, 2016 and MRI of the brain June 23, 2017. TECHNIQUE: Helical axial images of the head were obtained without IV contrast. Automated exposure control was utilized for the study. A dose lowering technique was utilized adhering to the principles of ALARA. FINDINGS: No acute intracranial hemorrhage, midline shift or mass effect is present. Ventricular system is normal. Basilar cisterns are patent. There are no extra axial collections. Street-white differentiation is maintained. There are no findings to suggest acute dural sinus thrombosis or acute territorial infarct. No calvarial fracture is present. Mastoid air cells are clear. There is moderate mucosal thickening of the sinuses with secretions. IMPRESSION: 1. No acute intracranial findings. 2. No calvarial fracture. 3. Paranasal sinus disease, as described above. Electronically signed by: Quentin Maier M.D. 07/18/2017 2:34 PM Dictated Date/Time: 07/18/2017 2:31 PM
--- NOTE | 2017-07-18 14:39 | DIAGNOSTIC IMAGING REPORT ---
CT OF THE CERVICAL SPINE WITHOUT CONTRAST CLINICAL HISTORY: EVALUATE FOR TRAUMA/INJURY COMPARISON STUDY: CT of the cervical spine June 07, 2016. TECHNIQUE: Helical axial images of the cervical spine were obtained without IV contrast. Sagittal and coronal reconstructions were viewed. A dose lowering technique was utilized adhering to the principles of ALARA. FINDINGS: Straightening of the normal cervical lordosis is noted. There is no acute cervical spine fracture. Craniocervical junction is intact. There is evidence for a previous C5-C6 fusion and left C5 and C6 hemilaminectomies. Postoperative findings within the cervical spine are unchanged. There is no prevertebral edema. Exam is mildly compromised by motion artifact. Several thyroid nodules are suspected. IMPRESSION: No acute cervical spine fracture or subluxation. Electronically signed by: Quentin Maier M.D. 07/18/2017 2:38 PM Dictated Date/Time: 07/18/2017 2:34 PM
[2017-07-18 16:09] VITALS: BP 157/76; PULSE 75; O2SAT 94
== END 2017-07-18 16:11 | disposition home or self-care (01) ==
LOC: EDBD 12:27 → C.EDA 12:28
DX: S80.11XA Contusion of right lower leg, initial encounter (principal); M25.511 Pain in right shoulder; W01.198A Fall on same level from slipping, tripping and stumbling with subsequent striking against other object, initial encounter; R40.2412 Glasgow coma scale score 13-15, at arrival to emergency department; I13.0 Hypertensive heart and chronic kidney disease with heart failure and stage 1 through stage 4 chronic kidney disease, or unspecified chronic kidney disease; I50.9 Heart failure, unspecified; J44.9 Chronic obstructive pulmonary disease, unspecified; N18.4 Chronic kidney disease, stage 4 (severe); K21.9 Gastro-esophageal reflux disease without esophagitis; D50.9 Iron deficiency anemia, unspecified; I48.0 Paroxysmal atrial fibrillation; E78.5 Hyperlipidemia, unspecified; Z96.641 Presence of right artificial hip joint; Z96.611 Presence of right artificial shoulder joint; Z87.891 Personal history of nicotine dependence; Z83.3 Family history of diabetes mellitus; Z79.82 Long term (current) use of aspirin; Z79.51 Long term (current) use of inhaled steroids; Z79.52 Long term (current) use of systemic steroids; Z79.01 Long term (current) use of anticoagulants; Z82.49 Family history of ischemic heart disease and other diseases of the circulatory system

== ENCOUNTER 2017-07-27 00:41 | Inpatient (IN) | payer OTHER ==
[2017-07-27] VITALS (7 sets, daily range): BP systolic 112–153; BP diastolic 65–85; PULSE 72–90; TEMP 36.6–37.2; O2SAT 94–100; Ht 162.6 cm; Wt 106.5 kg
[~2017-07-27] VITALS: Ht 162.6 cm; Wt 106.5 kg
[2017-07-27] MEDS ORDERED: KETOROLAC TROMETHAMINE 30 MG/ML VIAL IV STA (01:07)
--- NOTE | 2017-07-27 01:12 | EMERGENCY ROOM VISIT NOTE ---
History Report prepared by Warren: Kimberly Vasquez Under the Supervision of: Dr. Mara Lam D.O. First contact with patient: 00:49 Chief Complaint: CARDIAC ASSESSMENT Stated Complaint: CARDIAC ASSESSMENT History of Present Illness The patient is a 67 year old female who presents to the Emergency Room with complaints of an episode of heart racing occurring a couple hours ago. The patient states she had shortness of breath with her heart racing. Presently, the patient denies any shortness of breath. At baseline, the patient wears 4 liters of nasal cannula oxygen. The patient states she fell down her stairs 8 days ago and fractured her shoulder. The patient notes she has not been moving her shoulder as much since the fall. She notes she also hurt her leg from the fall. The patient notes body aches from the fall. The patient states she has been eating normally. At baseline, the patient uses the furniture in her apartment to walk around her apartment. She reports she has a walker an wheelchair but states her apartment is to small to use them properly. She states she has been getting up less over the past week because of her pain from the fall. She notes rib and leg pain when walking. She reports her daughter cares for her. The patient has a history of atrial fibrillation. Source of History: patient Onset: a couple hours ago Position: other (generalized) Quality: other (heart racing) Timing: other (episode) Associated Symptoms: No SOB Note: The patient reports body aches. Review of Systems See HPI for pertinent positives & negatives. A total of 10 systems reviewed and were otherwise negative. Past Medical & Surgical Medical Problems: (1) Abdominal pain (2) Asthma (3) CHF (congestive heart failure) (4) Chronic respiratory failure (5) CKD (chronic kidney disease), stage IV (6) COPD (chronic obstructive pulmonary disease) (7) Depression (8) Dyslipidemia (9) GERD (gastroesophageal reflux disease) (10) HTN (hypertension) (11) EVONNE (iron deficiency anemia) (12) Lumbar spinal stenosis (13) Morbid obesity (14) Myocardial infarction (15) Obesity hypoventilation syndrome (16) Palpitation (17) Paroxysmal a-fib (18) Respiratory failure, [id number] (19) Right hip pain Surgical Problems: (1) History of appendectomy (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 (4) Hx of cholecystectomy (5) S/P cervical spinal fusion (6) S/P wrist surgery Family History Diabetes mellitus MOTHER FH: CAD (coronary artery disease) MOTHER SISTER Social History Smoking Status: Former Smoker Alcohol Use: none Drug Use: none Marital Status: single Housing Status: lives with family Occupation Status: retired Current/Historical Medications Scheduled Albuterol Hfa (Ventolin Hfa), 2-4 PUFFS INH Q6H Albuterol Sulf (Proventil 0.083% 2.5MG/3ML), 2.5 MG NEB QID Allopurinol (Zyloprim), 300 MG PO DAILY Aspirin (Aspirin Ec), 81 MG PO DAILY Atorvastatin (Lipitor), 20 MG PO DAILY Bumetanide (Bumex), 1 TAB PO BID Cholecalciferol (Vitamin D3), 2,000 INTER.UNIT PO DAILY Ferrous Sulfate (Ferrous Sulfate), 325 MG PO DAILY Fluticasone Furoate-Vilanterol (Breo Ellipta 200-25 Mcg/INH), 1 PUFF INH DAILY Gabapentin (Neurontin), 300 MG PO TID Levothyroxine Sodium (Synthroid), 88 MCG PO DAILY Losartan Potassium (Cozaar), 50 MG PO DAILY Metolazone (Metolazone), 2.5 MG PO UD Metoprolol Succinate (Toprol Xl), 50 MG PO DAILY Multivitamins/Minerals (Certavite/Antioxidants), 1 TAB PO DAILY Potassium Ext Rel (Klor-Con), 20 MEQ PO BID Prednisone (Prednisone), 10 MG PO UD Propafenone Hcl (Propafenone Hcl), 150 MG PO TID Ranitidine (Zantac), 150 MG PO BID Roflumilast (Daliresp), 1 TAB PO DAILY Ropinirole (Requip), 5 MG PO DAILY Sertraline (Zoloft), 25 MG PO DAILY Umeclidinium [place] (Incruse Ellipta), 1 PUFF INH DAILY Scheduled PRN Acetaminophen (Tylenol), 650 MG PO Q4H PRN for Pain or Fever Benzonatate (Tessalon Perles), 100 MG PO TID PRN for Cough Allergies Coded Allergies: Adhesives (Verified Allergy, Severe, RED RASH, 07/27/17) Latex1 -Allergic Contact Dermititis (Verified Adverse Reaction, Mild, TAPE -SORE, 07/27/17) Morphine (Verified Adverse Reaction, Mild, DELUSIONS, 07/27/17) Physical Exam Vital Signs Date Time Temp Pulse Resp B/P (MAP) Pulse Ox O2 Delivery O2 Flow Rate FiO2 07/27/17 01:59 81 20 125/60 98 Room Air 07/27/17 01:10 97 Room Air 07/27/17 00:50 84 07/27/17 00:47 36.6 81 22 125/60 99 Nasal Cannula Physical Exam HEENT: Head - normocephalic and atraumatic Pupils are equal, round, and reactive to light. Extraocular eye muscles are intact, and sclera are anicteric. Nose - moist nasal mucosa without discharge. Mouth - moist buccal mucosa. Oropharynx is nonerythematous and there is no tonsillar exudate or edema noted. Neck: Supple; no JVD, nuchal rigidity, cervical lymphadenopathy. Heart: Regular rate and rhythm. There is a normal S1 and S2 with no murmurs, clicks, or gallops appreciated. Lungs: Diminished breath sounds in both lung valdez. Abdomen: Soft, completely nontender, nondistended, with good bowel sounds. There are no palpable pulsatile masses or hepatosplenomegaly. There is no guarding, rigidity, or rebound noted. Extremities: Hematoma to right lower anterior tib/fib region. Pain with palpation over hematoma. Pain with palpation of both shoulders and clavicle. No evidence of cyanosis, clubbing, or edema. There are easily palpable peripheral pulses. Skin: warm and dry with good turgor and no rashes. Medical Decision & Procedures ER Provider Diagnostic Interpretation: Radiology results as stated below per my review: Chest X-ray: no acute pulmonary infiltrate or pleural effusions. Laboratory Results 07/27/17 00:30 Red Blood Count 3.02, Mean Corpuscular Volume 96.7, Mean Corpuscular Hemoglobin 30.1, Mean Corpuscular Hemoglobin Concent 31.2, Mean Platelet Volume 9.4, Neutrophils (%) (Auto) 72.9, Lymphocytes (%) (Auto) 18.0, Monocytes (%) (Auto) 6.6, Eosinophils (%) (Auto) 1.0, Basophils (%) (Auto) 0.1, Neutrophils # (Auto) 12.89, Lymphocytes # (Auto) 3.19, Monocytes # (Auto) 1.16, Eosinophils # (Auto) 0.18, Basophils # (Auto) 0.02 07/27/17 00:30 Test 07/27/17 00:30 White Blood Count 17.68 K/uL (4.8-10.8) Red Blood Count 3.02 M/uL (4.2-5.4) Hemoglobin 9.1 g/dL (12.0-16.0) Hematocrit 29.2 % (37-47) Mean Corpuscular Volume 96.7 fL (80-100) Mean Corpuscular Hemoglobin 30.1 pg (25-34) Mean Corpuscular Hemoglobin Concent 31.2 g/dl (32-36) Platelet Count 296 K/uL (130-400) Mean Platelet Volume 9.4 fL (7.4-10.4) Neutrophils (%) (Auto) 72.9 % Lymphocytes (%) (Auto) 18.0 % Monocytes (%) (Auto) 6.6 % Eosinophils (%) (Auto) 1.0 % Basophils (%) (Auto) 0.1 % Neutrophils # (Auto) 12.89 K/uL (1.4-6.5) Lymphocytes # (Auto) 3.19 K/uL (1.2-3.4) Monocytes # (Auto) 1.16 K/uL (0.11-0.59) Eosinophils # (Auto) 0.18 K/uL (0-0.5) Basophils # (Auto) 0.02 K/uL (0-0.2) RDW Standard Deviation 57.4 fL (36.4-46.3) RDW Coefficient of Variation 17.0 % (11.5-14.5) Immature Granulocyte % (Auto) 1.4 % Immature Granulocyte # (Auto) 0.24 K/uL (0.00-0.02) Prothrombin Time 9.9 SECONDS (9.0-12.0) Prothromb Time International Ratio 0.9 (0.9-1.1) Activated Partial Thromboplast Time 21.3 SECONDS (21.0-31.0) Partial Thromboplastin Ratio 0.8 D-Dimer 3240 ug/L FEU (0-500) Anion Gap 9.0 mmol/L (3-11) Est Creatinine Clear Calc Drug Dose 27.5 ml/min Estimated GFR () 24.6 Estimated GFR (Non- 21.2 BUN/Creatinine Ratio 26.0 (10-20) Calcium Level 9.7 mg/dl (8.5-10.1) Total Creatine Kinase 23 U/L (26-192) Creatine Kinase MB < 0.5 ng/ml (0.5-3.6) Creatine Kinase MB Ratio (0-3.0) Troponin I < 0.015 ng/ml (0-0.045) Pro-B-Type Natriuretic Peptide 378 pg/ml (0-900) Thyroid Stimulating Hormone (TSH) 0.702 uIu/ml (0.300-4.500) Free Thyroxine 1.27 ng/dl (0.80-1.60) Chemistry Specimen Hemolysis Laboratory results per my review. Medications Administered Medications (Trade) Dose Ordered Sig/Rupinder Route Start Time Stop Time Status Last Admin Dose Admin Ketorolac Tromethamine (Toradol Inj) 30 mg NOW STAT IV 07/27/17 01:07 07/27/17 01:09 DC 07/27/17 01:14 30 MG Hydromorphone HCl (Dilaudid Inj) 1 mg NOW STAT IV 07/27/17 02:04 07/27/17 02:05 DC 07/27/17 02:10 1 MG Heparin Sodium/ Dextrose (Heparin 25,000 Unit/500ml D5W) 25,000 unit STK-MED ONCE .ROUTE 07/27/17 02:19 07/27/17 02:20 DC 07/27/17 02:26 25,000 UNIT Heparin Sodium (Porcine) (Heparin Iv Bolus) 10,000 unit STK-MED ONCE .ROUTE 07/27/17 02:20 07/27/17 02:21 DC 07/27/17 02:24 10,000 UNIT Procedure Toradol IV, Dilaudid IV. ECG Indication: palpitations Rate (beats per minute): 81 Rhythm: normal sinus Findings: no acute ischemic change, no ectopy ED Course 0057: Past medical records reviewed. The patient was evaluated in room A11B. A complete history and physical exam was performed. An IV lock was initiated and labs were drawn as above. A twelve-lead EKG was obtained as described above. 0107: Ordered Toradol Inj 30 mg IV. 0202: The patient is still complaining of pain. 0204: Ordered Dilaudid Inj 1 mg IV. 0206: Discussed the patient's case with Dr. Sanchez. The patient will be evaluated for further management. Medical Decision The patient is a 67 year old female who presents to the ED with and episode of heart racing and shortness of breath. Differential diagnosis includes CHF, PE, and pneumonia. Lab results show: white count 17.6, hemoglobin 9.1 baseline for her, BUN 59, creatinine 2.2 which is up from 1.5, glucose 174, negative cardiac enzymes, BMP 378, coags normal, D-dimer 3,240. This is a 67-year-old female patient who presents emergency department after an episode of palpitations and shortness of breath. Unfortunately, the patient's of her fall parceling 10 days ago which left her very sore and uncomfortable. She does have a known hairline fracture to the right shoulder. She admits that she has been much less active and mobile since this fall. She thought that she might be having a repeat episode of congestive heart failure since she became abruptly short of breath. I am concerned about the possibility of PE as the patient has been more sedentary and had an sudden onset of shortness of breath. I was unable to obtain a contrasted CT scan of the chest because of her elevated creatinine. I discussed the case with the [facility] Hospitalist and they will evaluate for further management. She will need to undergo ultrasound of the lower extremities and possibly VQ scan of the lungs. Medication Reconcilliation Current Medication List: was personally reviewed by me Blood Pressure Screening Patient's blood pressure: Normal blood pressure Consults Time Called: 0200 Consulting Physician: Dr. Sanchez Returned Call: [phone] Discussed the patient's case. The patient will be evaluated for further management. Impression Primary Impression: Shortness of breath Additional Impression: Acute kidney injury Scribe Attestation The scribe's documentation has been prepared under my direction and personally reviewed by me in its entirety. I confirm that the note above accurately reflects all work, treatment, procedures, and medical decision making performed by me. Departure Information Dispostion Being Evaluated By Hospitalist Referrals Babak Melendez M.D. ([facility]) (PCP) Patient Instructions My [facility] Problem Qualifiers
[2017-07-27 01:16] LABS: BASO % 0.1 %; BASO ABS # 0.02 K/uL (0-0.2); EOS ABS # 0.18 K/uL (0-0.5); HEMATOCRIT 29.2 % (37-47); HEMOGLOBIN 9.1 g/dL (12.0-16.0); IG# 0.24 K/uL (0.00-0.02); LYMPH ABS # 3.19 K/uL (1.2-3.4); MEAN CELL VOLUME 96.7 fL (80-100); MEAN CORPUSCULAR HEMOGLOBIN 30.1 pg (25-34); MEAN CORPUSCULAR HGB CONC 31.2 g/dl (32-36); MEAN PLATELET VOLUME 9.4 fL (7.4-10.4); MONO % 6.6 %; MONO ABS # 1.16 K/uL (0.11-0.59); NEUT % 72.9 %; NEUT ABS # 12.89 K/uL (1.4-6.5); PLATELET COUNT 296 K/uL (130-400); RED CELL DISTRIBUTION WIDTH SD 57.4 fL (36.4-46.3); WHITE BLOOD COUNT 17.68 K/uL (4.8-10.8)
[2017-07-27 01:21] LABS: INR 0.9 (0.9-1.1); PTT PATIENT 21.3 SECONDS (21.0-31.0)
[2017-07-27 01:39] LABS: CKMB < 0.5 ng/ml (0.5-3.6)
[2017-07-27 01:45] LABS: BLOOD UREA NITROGEN 59 mg/dl (7-18); CALCIUM 9.7 mg/dl (8.5-10.1); CARBON DIOXIDE 32 mmol/L (21-32); CREATININE 2.28 mg/dl (0.60-1.20); GLUCOSE 174 mg/dl (70-99); POTASSIUM 3.9 mmol/L (3.5-5.1); SODIUM 137 mmol/L (136-145)
[2017-07-27] MEDS ORDERED: HYDROmorphone INJ 1 MG/ML SYR IV STA (02:04)
[2017-07-27] MEDS ORDERED: HEPARIN 25000 UNIT/500 ML D5W ONE (02:19)
[2017-07-27] MEDS ORDERED: HEPARIN SOD (PORCINE) 1000 UNIT/ML 10 ML VIAL ONE (02:20)
[2017-07-27] MEDS ORDERED: HEPARIN 25,000 UNIT/500ML D5W 500 ML IV PRN (02:30)
--- NOTE | 2017-07-27 02:52 | History and Physical ---
History & Physical Date & Time of Service: Jul 27, 2017 at 02:48 Chief Complaint: Cardiac Assessment Primary Care Physician: No Doctor, Assigned History of Present Illness Source: patient The patient is a 67 year old female who presents to the Emergency Room after palpitations at rest which lasted for 30 minutes. Patient denies associated with chest pain or shortness of breath. At baseline, the patient wears 4 liters of nasal cannula oxygen. 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, cervical spinal fusion, lumbar spinal stenosis Past Medical/Surgical History Medical Problems: (1) Asthma Status: Chronic (2) CHF (congestive heart failure) Permanent Comment: diastolic Status: Chronic (3) Chronic respiratory failure Status: Chronic (4) CKD (chronic kidney disease), stage IV Status: Chronic (5) COPD (chronic obstructive pulmonary disease) Status: Chronic (6) Depression Status: Chronic (7) Dyslipidemia Status: Chronic (8) GERD (gastroesophageal reflux disease) Status: Chronic (9) HTN (hypertension) Status: Chronic (10) EVONNE (iron deficiency anemia) Status: Chronic (11) Lumbar spinal stenosis Status: Chronic (12) Morbid obesity Status: Chronic (13) Myocardial infarction Permanent Comment: per patient, details unknown Status: Chronic (14) Obesity hypoventilation syndrome Status: Chronic (15) Paroxysmal a-fib Status: Chronic Surgical Problems: (1) History of appendectomy Status: Chronic (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 (3) 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 (4) Hx of cholecystectomy Status: Chronic (5) S/P cervical spinal fusion Status: Chronic (6) S/P wrist surgery Status: Chronic Family History Diabetes mellitus MOTHER FH: CAD (coronary artery disease) MOTHER SISTER Social History Smoking Status: Former Smoker Drug Use: none Marital Status: single Housing status: lives with family Occupational Status: retired Immunizations History of Influenza Vaccine: Yes Influenza Vaccine Date: May 19, 2016 History of Tetanus Vaccine?: Yes Tetanus Immunization Date: Jan 11, 2008 History of Pneumococcal: Yes Pneumococcal Date: May 19, 2016 Multi-Drug 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 Allergies Coded Allergies: Adhesives (Verified Allergy, Severe, RED RASH, 07/27/17) Latex1 -Allergic Contact Dermititis (Verified Adverse Reaction, Mild, TAPE -SORE, 07/27/17) Morphine (Verified Adverse Reaction, Mild, DELUSIONS, 07/27/17) Home Medications Scheduled Albuterol Hfa (Ventolin Hfa), 2-4 PUFFS INH Q6H Albuterol Sulf (Proventil 0.083% 2.5MG/3ML), 2.5 MG NEB QID Allopurinol (Zyloprim), 300 MG PO DAILY Aspirin (Aspirin Ec), 81 MG PO DAILY Atorvastatin (Lipitor), 20 MG PO DAILY Bumetanide (Bumex), 1 TAB PO BID Cholecalciferol (Vitamin D3), 2,000 INTER.UNIT PO DAILY Ferrous Sulfate (Ferrous Sulfate), 325 MG PO DAILY Fluticasone Furoate-Vilanterol (Breo Ellipta 200-25 Mcg/INH), 1 PUFF INH DAILY Gabapentin (Neurontin), 300 MG PO TID Levothyroxine Sodium (Synthroid), 88 MCG PO DAILY Losartan Potassium (Cozaar), 50 MG PO DAILY Metolazone (Metolazone), 2.5 MG PO UD Metoprolol Succinate (Toprol Xl), 50 MG PO DAILY Multivitamins/Minerals (Certavite/Antioxidants), 1 TAB PO DAILY Potassium Ext Rel (Klor-Con), 20 MEQ PO BID Prednisone (Prednisone), 10 MG PO UD Propafenone Hcl (Propafenone Hcl), 150 MG PO TID Ranitidine (Zantac), 150 MG PO BID Roflumilast (Daliresp), 1 TAB PO DAILY Ropinirole (Requip), 5 MG PO DAILY Sertraline (Zoloft), 25 MG PO DAILY Umeclidinium [place] (Incruse Ellipta), 1 PUFF INH DAILY Scheduled PRN Acetaminophen (Tylenol), 650 MG PO Q4H PRN for Pain or Fever Benzonatate (Tessalon Perles), 100 MG PO TID PRN for Cough Review of Systems Constitutional: No fever Eyes: No eye pain ENT: No hearing loss, No sore throat, No trouble swallowing Respiratory: + shortness of breath, No cough, No sputum, No wheezing Cardiovascular: + palpitations Abdomen: No pain, No nausea, No vomiting Musculoskeletal: + joint pain (right shoulder) Genitourinary - Female: No dysuria Neurologic: No numbness/tingling Psychiatric: No substance abuse Hematologic / Lymphatic: No abnormal bleeding/bruising Integumentary: + problem reported (bruising of left ankle), No rash, No itch Physical Exam Vital Signs Date Time Temp Pulse Resp B/P (MAP) Pulse Ox O2 Delivery O2 Flow Rate FiO2 07/27/17 01:59 81 20 125/60 98 Room Air 07/27/17 01:10 97 Room Air 07/27/17 00:50 84 07/27/17 00:47 36.6 81 22 125/60 99 Nasal Cannula General Appearance: no apparent distress, + obese Head: normocephalic, atraumatic Eyes: normal inspection, EOMI, sclerae normal ENT: normal ENT inspection, hearing grossly normal, pharynx normal Neck: supple, no JVD, trachea midline Respiratory/Chest: chest non-tender, normal breath sounds, no respiratory distress, no accessory muscle use, + pertinent finding (no wheezing or crackles) Cardiovascular: regular rate, rhythm, normal peripheral pulses Abdomen/GI: normal bowel sounds, non tender, soft, no organomegaly, no pulsatile mass Back: normal inspection, no muscle spasm Extremities/Musculoskelatal: no calf tenderness, + pertinent finding (patient can use right hand movements but cannot lift right shoulder, also has brusing above left ankle) Neurologic/Psych: alert, normal mood/affect, oriented x 3 Skin: normal color, warm/dry, no rash Diagnostics Laboratory Results Results Past 24 Hours Test 07/27/17 00:30 Range/Units White Blood Count 17.68 4.8-10.8 K/uL Red Blood Count 3.02 4.2-5.4 M/uL Hemoglobin 9.1 12.0-16.0 g/dL Hematocrit 29.2 37-47 % Mean Corpuscular Volume 96.7 80-100 fL Mean Corpuscular Hemoglobin 30.1 25-34 pg Mean Corpuscular Hemoglobin Concent 31.2 32-36 g/dl Platelet Count 296 130-400 K/uL Mean Platelet Volume 9.4 7.4-10.4 fL Neutrophils (%) (Auto) 72.9 % Lymphocytes (%) (Auto) 18.0 % Monocytes (%) (Auto) 6.6 % Eosinophils (%) (Auto) 1.0 % Basophils (%) (Auto) 0.1 % Neutrophils # (Auto) 12.89 1.4-6.5 K/uL Lymphocytes # (Auto) 3.19 1.2-3.4 K/uL Monocytes # (Auto) 1.16 0.11-0.59 K/uL Eosinophils # (Auto) 0.18 0-0.5 K/uL Basophils # (Auto) 0.02 0-0.2 K/uL RDW Standard Deviation 57.4 36.4-46.3 fL RDW Coefficient of Variation 17.0 11.5-14.5 % Immature Granulocyte % (Auto) 1.4 % Immature Granulocyte # (Auto) 0.24 0.00-0.02 K/uL Prothrombin Time 9.9 9.0-12.0 SECONDS Prothromb Time International Ratio 0.9 0.9-1.1 Activated Partial Thromboplast Time 21.3 21.0-31.0 SECONDS Partial Thromboplastin Ratio 0.8 D-Dimer 3240 0-500 ug/L FEU Sodium Level 137 136-145 mmol/L Potassium Level 3.9 3.5-5.1 mmol/L Chloride Level 96 98-107 mmol/L Carbon Dioxide Level 32 21-32 mmol/L Anion Gap 9.0 3-11 mmol/L Blood Urea Nitrogen 59 7-18 mg/dl Creatinine 2.28 0.60-1.20 mg/dl Est Creatinine Clear Calc Drug Dose 27.5 ml/min Estimated GFR () 24.6 Estimated GFR (Non- 21.2 BUN/Creatinine Ratio 26.0 10-20 Random Glucose 174 70-99 mg/dl Calcium Level 9.7 8.5-10.1 mg/dl Total Creatine Kinase 23 26-192 U/L Creatine Kinase MB < 0.5 0.5-3.6 ng/ml Creatine Kinase MB Ratio 0-3.0 Troponin I < 0.015 0-0.045 ng/ml Pro-B-Type Natriuretic Peptide 378 0-900 pg/ml Chemistry Specimen Hemolysis Impression Assessment and Plan Palpitations -initial troponin negative, trend troponin -EKG on admission is 81 bpm NSR with incomplete right bundle branch -history of paroxysmal a-fib, monitor on telemetry -cardiology consult requested elevated D-dimer -CTA could not be performed due to poor renal function -heparin drip IV started while patient in ED and to continue until nuclear scan can be performed to rule out pulmonary embolism Other cardiac-respiratory medical conditions: on 24 hour home oxygen for hypoxia, COPD?, obesity hypoventilation syndrome, pulmonary HTN, CHF, paroxysmal a-fib, HTN -continue 24 hour oxygen -continue home respiratory inhalers and Roflumilast -not in CHF exacerbation: continue Bumetanide 1 Mg Tab BID, Metolazone 2.5 Mg Tab twice per week on Wednesday and Wednesday, continue oral potassium 20 meq BID -has been on heart rate and rhythm control with home dose Propafenone Hcl 150 Mg Tab TID, Toprol Xl 50 Mg Tab daily -continue aspirin and statin -HTN: continue Losartan Potassium (Cozaar) 50 Mg Tab daily Leukocytosis -could be from history of prednisone use for respiratory reasons -was discharged on 07/18/17 with prednisone taper (40mg daily for 3 days, then 30mg for 3 days, then 20mg for 3 days, then 10mg for 3 days and stop) -continue prednisone 10 mg for 3 more days Hypothyroidism -continue home dose Levothyroxine, check TSH, T4 CKD -trend creatinine Continue allopurinol for history of gout Continue home medications for history of depression Recent injury to right shoulder -right shoulder imaging -PT/OT evaluation requested -Pain control Morbid obesity Multiple co-morbidities as above - Social work needed in discharge planning when medical evaluation completed Disposition: observation telemetry Full Code Level of Care Telemetry Resuscitation Status FULL RESUSCITATION VTE Prophylaxis VTE Risk Assessment Done? Y/N: Yes Risk Level: High
[2017-07-27] MEDS ORDERED: BENZONATATE 100MG CAP PO PRN (03:15)
[2017-07-27] MEDS ORDERED: ALBUTEROL HFA 8 GM INHALER INH PRN (03:15)
[2017-07-27] MEDS ORDERED: NURSING VERBAL MED ORDER ONE (05:30)
[2017-07-27] MEDS ORDERED: OXYCODONE/ACETAMINOPHEN 5-325 TAB PO ONE (05:45)
[2017-07-27] MEDS: LEVOTHYROXINE 88 MCG TAB PO SCH (05:48)
--- NOTE | 2017-07-27 07:59 | DIAGNOSTIC IMAGING REPORT ---
CHEST 2 VIEWS ROUTINE HISTORY: Atypical chest pain. COMPARISON: Chest 07/18/2017. FINDINGS: There is a right shoulder prosthesis. Old, healed right-sided rib fractures. The heart is top normal in size. No pleural effusions. No pneumothorax. Mild diffuse residual thickening which is likely chronic. No new focal lung consolidations. Vertebroplasty within the mid thoracic spine. IMPRESSION: Mild chronic interstitial thickening, unchanged. No acute process within the chest. Electronically signed by: Henry Bourne M.D. 07/27/2017 7:58 AM Dictated Date/Time: 07/27/2017 7:57 AM
--- NOTE | 2017-07-27 08:20 | DIAGNOSTIC IMAGING REPORT ---
RIGHT SHOULDER 4 VIEWS HISTORY: right shoulder immobility COMPARISON: Right shoulder 07/18/2017. FINDINGS: There is again noted a right total shoulder arthroplasty. Subtle linear lucency at the humeral neck is again noted. The hardware appears intact. No dislocation. Moderate AC joint arthrosis. Soft tissues are unremarkable. No radiopaque foreign bodies. IMPRESSION: Subtle linear cortical lucency within the lateral right humeral neck is again noted. This is concerning for a nondisplaced fracture. Electronically signed by: Henry Bourne M.D. 07/27/2017 8:19 AM Dictated Date/Time: 07/27/2017 8:17 AM
[2017-07-27] MEDS: CEROVITE ADV FORMULA TAB PO SCH (08:53)
[2017-07-27] MEDS: ASPIRIN 81 MG ECTAB PO SCH (08:53)
[2017-07-27] MEDS: BUMETANIDE 1 MG TAB PO SCH ×2 (08:54→17:22)
[2017-07-27] MEDS: GABAPENTIN 300 MG CAP PO SCH ×3 (08:54→21:39)
[2017-07-27] MEDS: RANITIDINE HCL 150 MG TAB PO SCH ×2 (08:54→21:40)
[2017-07-27] MEDS: FERROUS SULFATE 325 MG TAB PO SCH (08:54)
[2017-07-27] MEDS: POTASSIUM CHLORIDE 20 MEQ TABCR PO SCH ×2 (08:55→17:22)
[2017-07-27] MEDS: METOPROLOL SUCC 50MG EXT REL TAB PO SCH (08:55)
[2017-07-27 08:56] LABS: BASO % 0.1 %; BASO ABS # 0.02 K/uL (0-0.2); EOS % 1.9 %; EOS ABS # 0.27 K/uL (0-0.5); HEMATOCRIT 27.4 % (37-47); HEMOGLOBIN 8.5 g/dL (12.0-16.0); IG# 0.28 K/uL (0.00-0.02); LYMPH % 24.4 %; LYMPH ABS # 3.43 K/uL (1.2-3.4); MEAN CELL VOLUME 97.2 fL (80-100); MEAN CORPUSCULAR HEMOGLOBIN 30.1 pg (25-34); MEAN PLATELET VOLUME 8.8 fL (7.4-10.4); MONO % 8.5 %; MONO ABS # 1.19 K/uL (0.11-0.59); NEUT % 63.1 %; NEUT ABS # 8.89 K/uL (1.4-6.5); PLATELET COUNT 225 K/uL (130-400); RED CELL DISTRIBUTION WIDTH SD 58.3 fL (36.4-46.3); WHITE BLOOD COUNT 14.08 K/uL (4.8-10.8)
[2017-07-27 08:56] LABS: PTT PATIENT 37.4 SECONDS (21.0-31.0)
[2017-07-27] MEDS: SERTRALINE HCL 50 MG TAB PO SCH (08:56)
[2017-07-27] MEDS: ATORVASTATIN 20 MG TAB PO SCH (08:56)
[2017-07-27] MEDS: CHOLECALCIFEROL 1000 INTER.UNIT TAB PO SCH (08:57)
[2017-07-27] MEDS: ROPINIROLE HCL 5 MG TAB PO SCH (08:57)
[2017-07-27] MEDS: PROPAFENONE HCL 150 MG TAB PO SCH ×3 (08:57→21:37)
[2017-07-27] MEDS: LOSARTAN POTASSIUM 50 MG TAB PO SCH (08:58)
[2017-07-27] MEDS: ALLOPURINOL 300 MG TAB PO SCH (08:58)
[2017-07-27] MEDS: ROFLUMILAST 500 MCG TAB PO SCH (08:58)
[2017-07-27 09:20] LABS: ALBUMIN 2.6 gm/dl (3.4-5.0); BLOOD UREA NITROGEN 57 mg/dl (7-18); CALCIUM 9.5 mg/dl (8.5-10.1); CARBON DIOXIDE 32 mmol/L (21-32); CREATININE 2.02 mg/dl (0.60-1.20); GLUCOSE 157 mg/dl (70-99); POTASSIUM 3.9 mmol/L (3.5-5.1); SODIUM 137 mmol/L (136-145)
[2017-07-27 09:25] LABS: ALKALINE PHOSPHATASE 68 U/L (45-117); ALT/SGPT 13 U/L (12-78); AST/SGOT 11 U/L (15-37); TOTAL PROTEIN 6.6 gm/dl (6.4-8.2)
[2017-07-27] MEDS: ACETAMINOPHEN 325 MG TAB PO PRN (10:10)
--- NOTE | 2017-07-27 10:32 | CARDIOLOGY CONSULTATION ---
DATE OF CONSULTATION: 07/27/2017 CONSULTATION REQUESTED BY: Dr. Patel. REASON FOR CONSULTATION: Palpitations. HISTORY OF PRESENT ILLNESS: Mrs. Lee is a 67-year-old woman with a very complex medical history, who presented to [facility] Department late in the evening of 07/26/2017 with a complaint of palpitations. The patient states that she was in her normal state of health yesterday, lying in bed, and watching television with her nocturnal CPAP on when she suddenly developed palpitations. She states that all of a sudden, her heart started to race and she felt a pounding in her chest. It was significant enough to cause some discomfort and this persisted for approximately 30 minutes. During that time, she denied any associated shortness of breath, lightheadedness, dizziness, or syncope. She states that this is very similar to episodes she has had in the past. She states that she has been compliant with her medications lately, but did have a recent significant fall, for which she was evaluated in the Emergency Department and suffered a shoulder fracture and right lower extremity hematoma. Otherwise, the patient states that she has been compliant with her medications and oxygen therapy. PAST SURGICAL HISTORY: 1. Cholecystectomy. 2. Wrist fracture repair. 3. Appendectomy. 4. Right shoulder replacement. 5. Right total hip replacement. 6. Cervical fusion. MEDICAL ILLNESSES: 1. Severe COPD, requiring frequent hospitalizations for decompensation. 2. Chronic respiratory failure, on home O2. 3. Morbid obesity. 4. Paroxysmal atrial fibrillation. 5. Stage IV chronic kidney disease. 6. Depression. 7. Hypothyroidism. FAMILY HISTORY: Noncontributory. SOCIAL HISTORY: The patient is a former smoker, quit in 2009. Denies any alcohol or recreational drug use. REVIEW OF SYSTEMS: As per HPI. All other review of systems reviewed and negative at this time. MEDICATIONS AN OUTPATIENT: 1. Aspirin 81 mg daily. 2. Propafenone 150 mg 3 times a day. 3. Toprol-XL 50 mg daily. 4. Metolazone 2.5 mg on Mondays and Fridays only. 5. Atorvastatin 20 mg daily. 6. Losartan 50 mg daily. 7. Bumex 1 mg b.i.d. 8. Potassium chloride 20 mEq every other day. 9. Neurontin. 10. Zantac b.i.d. 11. Zoloft daily. 12. Allopurinol daily. 13. Levothyroxine daily. 14. Advair daily. 15. Combivent daily. PHYSICAL EXAMINATION: VITALS: Temperature 36.9, pulse 72, respiratory rate 12, blood pressure 140/79 and saturating 100% on 4 liters nasal cannula. GENERAL: Awake, alert, and oriented x3, in no acute distress. HEENT: Normocephalic and atraumatic. Pupils equal, round, and reactive to light and accommodation. Extraocular muscles intact. Anicteric sclerae. Moist mucous membranes. NECK: No JVD. No bruit. CARDIOVASCULAR: Regular, but distant. Unable to appreciate murmurs, rubs or gallops. PULMONARY: Poor air movement diffusely. No rales, rhonchi, or wheezing. ABDOMEN: Bowel sounds x4. Soft. No rebound, guarding, or tenderness. No organomegaly. EXTREMITIES: No clubbing, cyanosis or edema. +2 pedal pulses bilaterally. SKIN: Warm and dry. TEST RESULTS: Review of telemetry monitoring shows normal sinus rhythm without any arrhythmias or significant ectopy. A 12-lead EKG performed in the Emergency Department independently reviewed at this time shows normal sinus rhythm with underlying incomplete right bundle branch block. No signs of active ischemia. No significant change compared to previous studies. IMPRESSION: 1. Palpitations. 2. History of paroxysmal atrial fibrillation, on chronic Rythmol and metoprolol succinate. 3. Severe chronic obstructive pulmonary disease with frequent exacerbations. 4. Chronic respiratory failure, on home O2. 5. Morbid obesity. RECOMMENDATIONS: Mrs. Lee was counseled that in order to accurately diagnose her palpitations, they must be captured on monitor and she has not had any arrhythmias or significant ectopy since admission, but she does carry a history of paroxysmal atrial fibrillation and with her significant lung disease, any episodes of SVT would not be unexpected. So at this point, no medication changes will be made. She will be continued on her Rythmol and Toprol-XL. She is undergoing further studies at this point of her lungs and we will continue to monitor on telemetry for now. She will likely require discharge with a 2-week ZIO patch as an outpatient for further evaluation.
[2017-07-27] MEDS ORDERED: HEPARIN IV BOLUS 6,000 UNIT in SYRINGE 0 ML IV ONE (11:00)
--- NOTE | 2017-07-27 12:09 | DIAGNOSTIC IMAGING REPORT ---
NUCLEAR MEDICINE VENTILATION/PERFUSION SCAN CLINICAL HISTORY: Cardiac assessment. COPD. Evaluate for evidence of pulmonary embolism. COMPARISON: Chest radiograph July 27, 2017 and VQ scan March 09, 2013. TECHNIQUE: For the ventilation portion of this exam, 33 mCi of DTPA was inhaled at 10:45 AM on July 27, 2017. Immediately following inhalation, imaging of the chest was carried out in the anterior, posterior, left lateral, right lateral, LPO, RPO, MARK and SANCHEZ projections. For the perfusion portion of exam, 5.3 mCi of technetium 99m MAA was injected IV at 11:30 AM on July 27, 2017. Immediately following injection, imaging of the chest was carried out in the same projections. FINDINGS: Multifocal central radiotracer deposition on ventilation portion of the study suggests chronic lung disease. This decreases the accuracy of this examination. In addition, patient's arms were down for lateral images. No definite mismatched defects are noted. IMPRESSION: Technically compromised study, as described above. Therefore, this study is intermediate/indeterminate probability for pulmonary embolus but no large mismatched defects are identified. Electronically signed by: Quentin Maier M.D. 07/27/2017 12:08 PM Dictated Date/Time: 07/27/2017 12:04 PM
--- NOTE | 2017-07-27 14:34 | DIAGNOSTIC IMAGING REPORT ---
BILATERAL LOWER EXTREMITY VENOUS DOPPLER HISTORY: Heart palpitations. COMPARISON STUDY: Venous Doppler 09/14/2016. FINDINGS: There is normal compressibility, flow, and augmentation within the bilateral lower extremity deep venous systems. IMPRESSION: No DVT within the right or left lower extremity. Electronically signed by: Henry Bourne M.D. 07/27/2017 2:33 PM Dictated Date/Time: 07/27/2017 2:32 PM
[2017-07-27] MEDS: TRAMADOL HCL 50 MG TAB PO PRN ×2 (14:38→21:36)
--- NOTE | 2017-07-27 16:18 | Progress Note ---
Subjective Date of Service: Jul 27, 2017. Subjective Pt evaluation today including: conversation w/ patient, physical exam, lab review, review of studies, review of inpatient medication list Saw/examined the patient in room 277 she had a recent fall at home, injured her R shoulder and R lower extremity She claims she has joint pain throughout her body Denies any palpitations, chest pain or shortness of breath today Problem List Medical Problems: (1) Acute kidney injury Status: Acute (2) Acute on chronic respiratory failure Status: Acute (3) Acute renal insufficiency Status: Acute (4) [id number] kidney injury Status: Acute (5) Anemia Status: Acute (6) Chronic anemia Status: Acute (7) CKD (chronic kidney disease) Status: Acute (8) COPD exacerbation Status: Acute (9) Dehydration Status: Acute (10) Dyspnea on exertion Status: Acute (11) Fall Status: Acute (12) Fever Status: Acute (13) Generalized weakness Status: Acute (14) Hematoma of skin Status: Acute (15) Hypercarbia Status: Acute (16) Hypercarbia Status: Acute (17) Hypoxia Status: Acute (18) Hypoxia Status: Acute (19) Leukocytosis Status: Acute (20) Periprosthetic fracture around internal prosthetic right shoulder joint, initial encounter Status: Acute (21) Precordial chest pain Status: Acute (22) Respiratory acidosis Status: Acute (23) Respiratory failure Status: Acute (24) Right hip pain Status: Acute (25) SBO (small bowel obstruction) Status: Acute (26) Shortness of breath Status: Acute (27) SOB (shortness of breath) Status: Acute Review of Systems Constitutional: No fever, No chills Respiratory: + shortness of breath (chronic SOB), No cough, No sputum, No wheezing, No dyspnea on exertion, No dyspnea at rest, No hemoptysis Cardiac: + edema, No chest pain, No palpitations (resolved) Musculoskeletal: + joint pain, + muscle pain, + swelling Heme: + abnormal bleeding/bruising Medications Current Inpatient Medications Medications (Trade) Dose Ordered Sig/Rupinder Route Start Time Stop Time Status Last Admin Dose Admin Acetaminophen (Tylenol Tab) 650 mg Q4H PRN PO 07/27/17 03:15 08/26/17 03:14 07/27/17 10:10 650 MG Albuterol (Ventolin Hfa Inhaler) 2 puffs Q6H PRN INH 07/27/17 03:15 08/26/17 03:14 Allopurinol (Zyloprim Tab) 300 mg DAILY PO 07/27/17 09:00 08/26/17 08:59 07/27/17 08:58 300 MG Aspirin (Ecotrin Tab) 81 mg DAILY PO 07/27/17 09:00 08/26/17 08:59 07/27/17 08:53 81 MG Atorvastatin Calcium (Lipitor Tab) 20 mg DAILY PO 07/27/17 09:00 08/26/17 08:59 07/27/17 08:56 20 MG Benzonatate (Tessalon Perles Cap) 100 mg TID PRN PO 07/27/17 03:15 08/26/17 03:14 Bumetanide (Bumex Tab) 1 mg BIDM PO 07/27/17 08:00 08/26/17 07:59 07/27/17 08:54 1 MG Cholecalciferol (Vitamin D Tab) 2,000 inter.unit DAILY PO 07/27/17 09:00 08/26/17 08:59 07/27/17 08:57 2,000 INTER.UNIT Gabapentin (Neurontin Cap) 300 mg TID PO 07/27/17 09:00 08/26/17 08:59 07/27/17 14:38 300 MG Levothyroxine Sodium (Synthroid Tab) 88 mcg DAILYBB PO 07/27/17 06:30 08/26/17 06:29 07/27/17 05:48 88 MCG Losartan Potassium (coZAAR TAB) 50 mg DAILY PO 07/27/17 09:00 08/26/17 08:59 07/27/17 08:58 50 MG Metolazone (Zaroxolyn Tab) 2.5 mg MoFr@0700 PO 07/30/17 07:00 08/29/17 06:59 Metoprolol Succinate (Toprol Xl Tab) 50 mg DAILY PO 07/27/17 09:00 08/26/17 08:59 07/27/17 08:55 50 MG Multivitamins/ Minerals (Multivitamin W/ Minerals Tab) 1 tab DAILY PO 07/27/17 09:00 08/26/17 08:59 07/27/17 08:53 1 TAB Potassium Chloride (Klor-Con Tab) 20 meq BID17 PO 07/27/17 09:00 08/26/17 08:59 07/27/17 08:55 20 MEQ Propafenone HCl (Rythmol Tab) 150 mg TID PO 07/27/17 09:00 08/26/17 08:59 07/27/17 14:38 150 MG Ranitidine HCl (zANTac TAB) 150 mg BID PO 07/27/17 09:00 08/26/17 08:59 07/27/17 08:54 150 MG Roflumilast (Daliresp Tab) 500 mcg DAILY PO 07/27/17 09:00 08/26/17 08:59 07/27/17 08:58 500 MCG Ropinirole HCl (Requip Tab) 5 mg DAILY PO 07/27/17 09:00 08/26/17 08:59 07/27/17 08:57 5 MG Sertraline HCl (Zoloft Tab) 25 mg DAILY PO 07/27/17 09:00 08/26/17 08:59 07/27/17 08:56 25 MG Ferrous Sulfate (Feosol Tab) 325 mg DAILY PO 07/27/17 09:00 08/26/17 08:59 07/27/17 08:54 325 MG Miscellaneous Information (Order Awaiting Action) 1 ea QS N/A 07/27/17 08:00 08/26/17 07:59 Miscellaneous Information (Order Awaiting Action) 1 ea QS N/A 07/27/17 08:00 08/26/17 07:59 Prednisone (PredniSONE TAB) 10 mg DAILY PO 07/27/17 09:00 07/30/17 09:00 07/27/17 08:53 10 MG Tramadol HCl (Ultram Tab) 50 mg Q6 PRN PO 07/27/17 13:30 08/26/17 13:29 07/27/17 14:38 50 MG Objective Vital Signs Date Time Temp Pulse Resp B/P (MAP) Pulse Ox O2 Delivery O2 Flow Rate FiO2 07/27/17 15:03 37.2 86 20 153/85 (107) 99 07/27/17 12:34 Nasal Cannula 4.0 07/27/17 12:02 36.6 81 20 150/68 (95) 99 4.0 07/27/17 08:00 Nasal Cannula 4.0 07/27/17 06:41 36.9 72 18 140/79 (99) 100 Nasal Cannula 4.0 07/27/17 03:45 37.2 87 20 143/65 Nasal Cannula 4.0 07/27/17 03:20 90 20 127/41 98 Room Air 07/27/17 01:59 81 20 125/60 98 Room Air 07/27/17 01:10 97 Room Air 07/27/17 00:50 84 07/27/17 00:47 36.6 81 22 125/60 99 Nasal Cannula Physical Exam General Appearance: no apparent distress, + obese, + pertinent finding ( chronically ill appearing) Respiratory/Chest: lungs clear, normal breath sounds, no respiratory distress, no accessory muscle use Cardiovascular: regular rate, rhythm, no murmur Extremities: + swelling, + pertinent finding (RLE; swelling, ecchymotic) Neurologic/Psychiatric: no motor/sensory deficits, alert, normal mood/affect Laboratory Results Last 24 Hours Test 07/27/17 00:30 07/27/17 08:22 07/27/17 08:34 07/27/17 09:22 White Blood Count 17.68 K/uL 14.08 K/uL Red Blood Count 3.02 M/uL 2.82 M/uL Hemoglobin 9.1 g/dL 8.5 g/dL Hematocrit 29.2 % 27.4 % Mean Corpuscular Volume 96.7 fL 97.2 fL Mean Corpuscular Hemoglobin 30.1 pg 30.1 pg Mean Corpuscular Hemoglobin Concent 31.2 g/dl 31.0 g/dl Platelet Count 296 K/uL 225 K/uL Mean Platelet Volume 9.4 fL 8.8 fL Neutrophils (%) (Auto) 72.9 % 63.1 % Lymphocytes (%) (Auto) 18.0 % 24.4 % Monocytes (%) (Auto) 6.6 % 8.5 % Eosinophils (%) (Auto) 1.0 % 1.9 % Basophils (%) (Auto) 0.1 % 0.1 % Neutrophils # (Auto) 12.89 K/uL 8.89 K/uL Lymphocytes # (Auto) 3.19 K/uL 3.43 K/uL Monocytes # (Auto) 1.16 K/uL 1.19 K/uL Eosinophils # (Auto) 0.18 K/uL 0.27 K/uL Basophils # (Auto) 0.02 K/uL 0.02 K/uL RDW Standard Deviation 57.4 fL 58.3 fL RDW Coefficient of Variation 17.0 % 17.0 % Immature Granulocyte % (Auto) 1.4 % 2.0 % Immature Granulocyte # (Auto) 0.24 K/uL 0.28 K/uL Prothrombin Time 9.9 SECONDS Prothromb Time International Ratio 0.9 Activated Partial Thromboplast Time 21.3 SECONDS 37.4 SECONDS Partial Thromboplastin Ratio 0.8 1.4 D-Dimer 3240 ug/L FEU Sodium Level 137 mmol/L 137 mmol/L Potassium Level 3.9 mmol/L 3.9 mmol/L Chloride Level 96 mmol/L 97 mmol/L Carbon Dioxide Level 32 mmol/L 32 mmol/L Anion Gap 9.0 mmol/L 8.0 mmol/L Blood Urea Nitrogen 59 mg/dl 57 mg/dl Creatinine 2.28 mg/dl 2.02 mg/dl Est Creatinine Clear Calc Drug Dose 27.5 ml/min 31.9 ml/min Estimated GFR () 24.6 28.5 Estimated GFR (Non- 21.2 24.5 BUN/Creatinine Ratio 26.0 28.3 Random Glucose 174 mg/dl 157 mg/dl Calcium Level 9.7 mg/dl 9.5 mg/dl Total Creatine Kinase 23 U/L Creatine Kinase MB < 0.5 ng/ml Creatine Kinase MB Ratio Troponin I < 0.015 ng/ml < 0.015 ng/ml Pro-B-Type Natriuretic Peptide 378 pg/ml Thyroid Stimulating Hormone (TSH) 0.702 uIu/ml Free Thyroxine 1.27 ng/dl Chemistry Specimen Hemolysis Polychromasia 1+ Hypochromasia PRESENT Basophilic Stippling 1+ Anisocytosis PRESENT Stomatocytes 1+ Total Bilirubin 0.3 mg/dl Aspartate Amino Transf (AST/SGOT) 11 U/L Alanine Aminotransferase (ALT/SGPT) 13 U/L Alkaline Phosphatase 68 U/L Total Protein 6.6 gm/dl Albumin 2.6 gm/dl Globulin 4.0 gm/dl Albumin/Globulin Ratio 0.7 Thyroxine (T4) 7.8 mcg/dl Assessment and Plan This is a 67 year old female with a PMH of obesity, severe COPD, chronic respiratory failure on 4L of O2 chronically, paroxysmal atrial fibrillation, CKD stage 4, hypothyroidism, HTN, depression/anxiety, hyperlipidemia, right sided heart failure, SIMONA on nocturnal bipap - presents with palpitations Palpitations appreciate cardiology input on this matter currently, on tele monitoring no arrhythmias noted at this time for now, we can continue Toprol and Rhythmol if no palpitations, can d/c home tomorrow and Zio patch as outpatient Fall, R LE Hematoma patient had a fall, seemed mechanical at the time was given 7 days of Tramadol on 07/19, which ran out yesterday will add Tramadol back on for pain LE dopplers - negative for DVT Severe COPD Chronic Respiratory Failure continue O2 at around 4L - at baseline continue nocturnal bipap continue Daliresp, chronic prednisone outpatient follow-up for possible LABA/ICS or LAMA inhaler Hypothyroidism TSH wnl continue Synthroid dose R sided heart failure currently euvolemic continue ARB, continue metolazone and bumex at home dose DVT ppx subq heparin FULL CODE
[2017-07-27] MEDS: HEPARIN SOD 5000 UNIT/0.5 ML CARP SQ SCH (21:42)
[2017-07-28 02:50] VITALS: BP 102/61; PULSE 94; TEMP 37.1; O2SAT 99
[2017-07-28] MEDS: LEVOTHYROXINE 88 MCG TAB PO SCH (05:45)
[2017-07-28] MEDS: TRAMADOL HCL 50 MG TAB PO PRN ×2 (05:46→15:28)
--- NOTE | 2017-07-28 07:17 | Clinical Documentation Query ---
CLINICAL DOCUMENTATION QUERY In your clinical opinion is this patient being managed for: A 67 year old female with a PMH of obesity, severe COPD, chronic respiratory failure on 4L of O2 chronically, paroxysmal atrial fibrillation, CKD stage 4, hypothyroidism, HTN, depression/anxiety, hyperlipidemia, right sided heart failure, SIMONA on nocturnal bipap - presents with palpitations. ( X ) Acute kidney failure ( ) Not Agree ( ) Other explanation of clinical findings (Please Explain) ( ) Unable to determine (Please Define) ( ) Need to Discuss The medical record reflects the following clinical findings, treatment, and risk factors. Clinical Indicators: Creatinine 2.28 and 2.02; baseline 1.July Treatment: PRPs Risk Factors: CKD 4, chronic diastolic CHF, HTN Please clarify and document your clinical opinion in the progress notes and discharge summary. Terms such as "probable", "suspected", "likely", "questionable", "possible", or "still to be ruled out" are acceptable. IF IN AGREEMENT, YOU MUST DOCUMENT ABOVE DIAGNOSTIC STATEMENT IN DAILY PROGRESS NOTES AND DISCHARGE SUMMARY. This document is not part of the patient's record. Thank You, Pilar Pablo RN [phone]
[2017-07-28 07:38] VITALS: BP 129/73; PULSE 81; TEMP 36.9; O2SAT 100
[2017-07-28 07:42] LABS: HEMATOCRIT 28.5 % (37-47); HEMOGLOBIN 8.7 g/dL (12.0-16.0); MEAN CELL VOLUME 98.3 fL (80-100); MEAN CORPUSCULAR HGB CONC 30.5 g/dl (32-36); MEAN PLATELET VOLUME 8.9 fL (7.4-10.4); PLATELET COUNT 283 K/uL (130-400); RED CELL DISTRIBUTION WIDTH CV 16.6 % (11.5-14.5); RED CELL DISTRIBUTION WIDTH SD 58.3 fL (36.4-46.3); WHITE BLOOD COUNT 15.07 K/uL (4.8-10.8)
[2017-07-28] MEDS: POTASSIUM CHLORIDE 20 MEQ TABCR PO SCH ×2 (08:03→17:25)
[2017-07-28] MEDS: LOSARTAN POTASSIUM 50 MG TAB PO SCH (08:04)
[2017-07-28] MEDS: ROFLUMILAST 500 MCG TAB PO SCH (08:04)
[2017-07-28] MEDS: METOPROLOL SUCC 50MG EXT REL TAB PO SCH (08:04)
[2017-07-28] MEDS: CEROVITE ADV FORMULA TAB PO SCH (08:04)
[2017-07-28] MEDS: RANITIDINE HCL 150 MG TAB PO SCH ×2 (08:05→21:01)
[2017-07-28 08:06] LABS: CALCIUM 9.6 mg/dl (8.5-10.1); CREATININE 1.89 mg/dl (0.60-1.20); POTASSIUM 4.3 mmol/L (3.5-5.1)
[2017-07-28] MEDS: ASPIRIN 81 MG ECTAB PO SCH (08:06)
[2017-07-28] MEDS: ALLOPURINOL 300 MG TAB PO SCH (08:06)
[2017-07-28] MEDS: BUMETANIDE 1 MG TAB PO SCH ×2 (08:06→17:25)
[2017-07-28] MEDS: FERROUS SULFATE 325 MG TAB PO SCH (08:07)
[2017-07-28] MEDS: ATORVASTATIN 20 MG TAB PO SCH (08:07)
[2017-07-28] MEDS: CHOLECALCIFEROL 1000 INTER.UNIT TAB PO SCH (08:07)
[2017-07-28] MEDS: ROPINIROLE HCL 5 MG TAB PO SCH (08:08)
[2017-07-28] MEDS: PROPAFENONE HCL 150 MG TAB PO SCH ×3 (08:08→21:02)
[2017-07-28] MEDS: SERTRALINE HCL 50 MG TAB PO SCH (08:09)
[2017-07-28] MEDS: GABAPENTIN 300 MG CAP PO SCH ×3 (08:09→21:00)
[2017-07-28] MEDS: HEPARIN SOD 5000 UNIT/0.5 ML CARP SQ SCH ×2 (08:11→21:04)
--- NOTE | 2017-07-28 09:52 | Cardiology Follow-Up ---
Subjective Subjective Date of Service: Jul 28, 2017. Pt evaluation today including: conversation w/ patient, physical exam, chart review, lab review, review of studies, review of inpatient medication list Additional Details: Pt seen and examined, denies any further palpitations overnight. Denies cp, sob , palpitations, lightheadedness or dizziness. Tele reviewed: sinus rhythm without sustained arrhythmia, occasional PAC's. Problem List Medical Problems: (1) Acute kidney injury Status: Acute (2) Acute on chronic respiratory failure Status: Acute (3) Acute renal insufficiency Status: Acute (4) [id number] kidney injury Status: Acute (5) Anemia Status: Acute (6) Chronic anemia Status: Acute (7) CKD (chronic kidney disease) Status: Acute (8) COPD exacerbation Status: Acute (9) Dehydration Status: Acute (10) Dyspnea on exertion Status: Acute (11) Fall Status: Acute (12) Fever Status: Acute (13) Generalized weakness Status: Acute (14) Hematoma of skin Status: Acute (15) Hypercarbia Status: Acute (16) Hypercarbia Status: Acute (17) Hypoxia Status: Acute (18) Hypoxia Status: Acute (19) Leukocytosis Status: Acute (20) Periprosthetic fracture around internal prosthetic right shoulder joint, initial encounter Status: Acute (21) Precordial chest pain Status: Acute (22) Respiratory acidosis Status: Acute (23) Respiratory failure Status: Acute (24) Right hip pain Status: Acute (25) SBO (small bowel obstruction) Status: Acute (26) Shortness of breath Status: Acute (27) SOB (shortness of breath) Status: Acute Review of Systems Constitutional: No fever, No chills Respiratory: + shortness of breath (chronic SOB), No cough, No sputum, No wheezing, No dyspnea on exertion, No dyspnea at rest, No hemoptysis Cardiac: + edema, No chest pain, No palpitations (resolved) Musculoskeletal: + joint pain, + muscle pain, + swelling Heme: + abnormal bleeding/bruising Objective Vital Signs Last Vital Signs Documentation Date Time Temp Pulse Resp B/P (MAP) Pulse Ox O2 Delivery O2 Flow Rate FiO2 07/28/17 08:00 Nasal Cannula 4.0 07/28/17 07:38 36.9 81 18 129/73 (91) 100 Physical Exam: General Appearance: WD/WN, no apparent distress, + obese, + pertinent finding ( chronically ill appearing) Eyes: bilateral eyes normal inspection, bilateral eyes PERRL, bilateral eyes EOMI ENT: normal ENT inspection, hearing grossly normal, pharynx normal Neck: supple, no adenopathy, thyroid normal, no JVD, no carotid bruits, trachea midline Respiratory/Chest: chest non-tender, lungs clear, normal breath sounds, no respiratory distress, no accessory muscle use Cardiovascular: regular rate, rhythm (but distant due to breath sounds) Abdomen: normal bowel sounds, non tender, soft, no organomegaly Extremities: + swelling, + pertinent finding (RLE; swelling, ecchymotic) Neurologic/Psychiatric: 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 palpitations no arrhythmias or significant ectopy on monitor will d/c to home with 2 week Zio patch monitor to be placed at [facility], my office will perform then f/u with me in 4 weeks return to ER with further symptoms 2. Hx of PAF to be expected given advanced lung disease has remained in sinus rhythm cont metoprolol and rhythmol, no changes has not been on anticoagulation and has remained in sinus rhythm outpatient monitor will help guide whether anticoagulation is indicated ok to d/c to home from cardiac standpoint
--- NOTE | 2017-07-28 11:13 | Progress Note ---
Subjective Date of Service: Jul 28, 2017. Subjective Pt evaluation today including: conversation w/ patient, conversation w/ family , physical exam, lab review, review of studies, review of inpatient medication list Saw/examined the patient in room 277 She is doing well today, no issues to note; no palpitations/denies chest pain denies shortness of breath Problem List Medical Problems: (1) Acute kidney injury Status: Acute (2) Acute on chronic respiratory failure Status: Acute (3) Acute renal insufficiency Status: Acute (4) Avfwb-[id number] kidney injury Status: Acute (5) Anemia Status: Acute (6) Chronic anemia Status: Acute (7) CKD (chronic kidney disease) Status: Acute (8) COPD exacerbation Status: Acute (9) Dehydration Status: Acute (10) Dyspnea on exertion Status: Acute (11) Fall Status: Acute (12) Fever Status: Acute (13) Generalized weakness Status: Acute (14) Hematoma of skin Status: Acute (15) Hypercarbia Status: Acute (16) Hypercarbia Status: Acute (17) Hypoxia Status: Acute (18) Hypoxia Status: Acute (19) Leukocytosis Status: Acute (20) Periprosthetic fracture around internal prosthetic right shoulder joint, initial encounter Status: Acute (21) Precordial chest pain Status: Acute (22) Respiratory acidosis Status: Acute (23) Respiratory failure Status: Acute (24) Right hip pain Status: Acute (25) SBO (small bowel obstruction) Status: Acute (26) Shortness of breath Status: Acute (27) SOB (shortness of breath) Status: Acute Review of Systems Constitutional: No fever, No chills Respiratory: + shortness of breath, No cough, No sputum, No wheezing, No dyspnea on exertion, No dyspnea at rest, No hemoptysis Cardiac: No chest pain Abdomen: No pain, No nausea, No vomiting, No diarrhea Musculoskeletal: + joint pain Heme: + abnormal bleeding/bruising Medications Current Inpatient Medications Medications (Trade) Dose Ordered Sig/Rupinder Route Start Time Stop Time Status Last Admin Dose Admin Acetaminophen (Tylenol Tab) 650 mg Q4H PRN PO 07/27/17 03:15 08/26/17 03:14 07/27/17 10:10 650 MG Albuterol (Ventolin Hfa Inhaler) 2 puffs Q6H PRN INH 07/27/17 03:15 08/26/17 03:14 Allopurinol (Zyloprim Tab) 300 mg DAILY PO 07/27/17 09:00 08/26/17 08:59 07/28/17 08:06 300 MG Aspirin (Ecotrin Tab) 81 mg DAILY PO 07/27/17 09:00 08/26/17 08:59 07/28/17 08:06 81 MG Atorvastatin Calcium (Lipitor Tab) 20 mg DAILY PO 07/27/17 09:00 08/26/17 08:59 07/28/17 08:07 20 MG Benzonatate (Tessalon Perles Cap) 100 mg TID PRN PO 07/27/17 03:15 08/26/17 03:14 07/27/17 21:38 100 MG Bumetanide (Bumex Tab) 1 mg BIDM PO 07/27/17 08:00 08/26/17 07:59 07/28/17 08:06 1 MG Cholecalciferol (Vitamin D Tab) 2,000 inter.unit DAILY PO 07/27/17 09:00 08/26/17 08:59 07/28/17 08:07 2,000 INTER.UNIT Gabapentin (Neurontin Cap) 300 mg TID PO 07/27/17 09:00 08/26/17 08:59 07/28/17 08:09 300 MG Levothyroxine Sodium (Synthroid Tab) 88 mcg DAILYBB PO 07/27/17 06:30 08/26/17 06:29 07/28/17 05:45 88 MCG Losartan Potassium (coZAAR TAB) 50 mg DAILY PO 07/27/17 09:00 08/26/17 08:59 07/28/17 08:04 50 MG Metolazone (Zaroxolyn Tab) 2.5 mg MoFr@0700 PO 07/30/17 07:00 08/29/17 06:59 Metoprolol Succinate (Toprol Xl Tab) 50 mg DAILY PO 07/27/17 09:00 08/26/17 08:59 07/28/17 08:04 50 MG Multivitamins/ Minerals (Multivitamin W/ Minerals Tab) 1 tab DAILY PO 07/27/17 09:00 08/26/17 08:59 07/28/17 08:04 1 TAB Potassium Chloride (Klor-Con Tab) 20 meq BID17 PO 07/27/17 09:00 08/26/17 08:59 07/28/17 08:03 20 MEQ Propafenone HCl (Rythmol Tab) 150 mg TID PO 07/27/17 09:00 08/26/17 08:59 07/28/17 08:08 150 MG Ranitidine HCl (zANTac TAB) 150 mg BID PO 07/27/17 09:00 08/26/17 08:59 07/28/17 08:05 150 MG Roflumilast (Daliresp Tab) 500 mcg DAILY PO 07/27/17 09:00 08/26/17 08:59 07/28/17 08:04 500 MCG Ropinirole HCl (Requip Tab) 5 mg DAILY PO 07/27/17 09:00 08/26/17 08:59 07/28/17 08:08 5 MG Sertraline HCl (Zoloft Tab) 25 mg DAILY PO 07/27/17 09:00 08/26/17 08:59 07/28/17 08:09 25 MG Ferrous Sulfate (Feosol Tab) 325 mg DAILY PO 07/27/17 09:00 08/26/17 08:59 07/28/17 08:07 325 MG Miscellaneous Information (Order Awaiting Action) 1 ea QS N/A 07/27/17 08:00 08/26/17 07:59 Miscellaneous Information (Order Awaiting Action) 1 ea QS N/A 07/27/17 08:00 08/26/17 07:59 Prednisone (PredniSONE TAB) 10 mg DAILY PO 07/27/17 09:00 07/30/17 09:00 07/28/17 08:04 10 MG Tramadol HCl (Ultram Tab) 50 mg Q6 PRN PO 07/27/17 13:30 08/26/17 13:29 07/28/17 05:46 50 MG Heparin Sodium (Porcine) (Heparin Sq 5000 Unit/0.5ml) 5,000 unit Q12 SQ 07/27/17 21:00 08/26/17 20:59 07/28/17 08:11 5,000 UNIT Objective Vital Signs Date Time Temp Pulse Resp B/P (MAP) Pulse Ox O2 Delivery O2 Flow Rate FiO2 07/28/17 08:00 Nasal Cannula 4.0 07/28/17 07:38 36.9 81 18 129/73 (91) 100 Nasal Cannula 3.0 07/28/17 04:05 Nasal Cannula 4.0 07/28/17 02:50 37.1 94 20 102/61 (75) 99 Nasal Cannula 4.0 07/28/17 00:05 Nasal Cannula 4.0 07/27/17 23:10 36.7 83 24 129/75 (93) 97 Nasal Cannula 4.0 07/27/17 23:10 36.7 83 24 129/75 (93) 97 CPAP 07/27/17 22:20 87 94 4.0 07/27/17 20:05 Nasal Cannula 4.0 07/27/17 19:29 37.2 90 24 112/70 (84) 98 Nasal Cannula 4.0 07/27/17 16:00 Nasal Cannula 4.0 07/27/17 15:03 37.2 86 20 153/85 (107) 99 07/27/17 12:34 Nasal Cannula 4.0 07/27/17 12:02 36.6 81 20 150/68 (95) 99 4.0 Physical Exam General Appearance: no apparent distress, + obese Respiratory/Chest: no respiratory distress, no accessory muscle use, + decreased breath sounds Cardiovascular: regular rate, rhythm, no edema, no murmur Abdomen: normal bowel sounds, non tender, soft, + hernia (ventral hernia, reducible) Extremities: no pedal edema, + pertinent finding (+R LE rushing, hematoma, bruising noted, improving) Neurologic/Psychiatric: no motor/sensory deficits, alert, normal mood/affect Laboratory Results Last 24 Hours Test 07/28/17 06:58 White Blood Count 15.07 K/uL Red Blood Count 2.90 M/uL Hemoglobin 8.7 g/dL Hematocrit 28.5 % Mean Corpuscular Volume 98.3 fL Mean Corpuscular Hemoglobin 30.0 pg Mean Corpuscular Hemoglobin Concent 30.5 g/dl RDW Standard Deviation 58.3 fL RDW Coefficient of Variation 16.6 % Platelet Count 283 K/uL Mean Platelet Volume 8.9 fL Sodium Level 138 mmol/L Potassium Level 4.3 mmol/L Chloride Level 98 mmol/L Carbon Dioxide Level 36 mmol/L Anion Gap 4.0 mmol/L Blood Urea Nitrogen 49 mg/dl Creatinine 1.89 mg/dl Est Creatinine Clear Calc Drug Dose 33.8 ml/min Estimated GFR () 30.8 Estimated GFR (Non- 26.6 BUN/Creatinine Ratio 25.8 Random Glucose 104 mg/dl Calcium Level 9.6 mg/dl Magnesium Level 2.0 mg/dl Assessment and Plan This is a 67 year old female with a PMH of obesity, severe COPD, chronic respiratory failure on 4L of O2 chronically, paroxysmal atrial fibrillation, CKD stage 4, hypothyroidism, HTN, depression/anxiety, hyperlipidemia, right sided heart failure, SIMONA on nocturnal bipap - presents with palpitations Palpitations appreciate cardiology input on this matter currently, on tele monitoring no arrhythmias noted at this time for now, we can continue Toprol and Rhythmol if no palpitations, can d/c home tomorrow and Zio patch as outpatient Fall, R LE Hematoma patient had a fall, seemed mechanical at the time was given 7 days of Tramadol on 07/19, which ran out yesterday will add Tramadol back on for pain LE dopplers - negative for DVT Severe COPD Chronic Respiratory Failure continue O2 at around 4L - at baseline continue nocturnal bipap continue Daliresp, chronic prednisone d/c on Breo - plan to stop duonebs and use Xopenex inhaler Hypothyroidism TSH wnl continue Synthroid dose R sided heart failure currently euvolemic continue ARB, continue metolazone and bumex at home dose DVT ppx subq heparin FULL CODE
[2017-07-28] MEDS ORDERED: PRD10 PO (11:21)
[2017-07-28] MEDS ORDERED: ULT50X PO (11:21)
[2017-07-28] MEDS ORDERED: LEVA1.258 INH (11:21)
--- NOTE | 2017-07-28 11:41 | Discharge Instructions ---
Discharge Instructions Date of Service Jul 28, 2017. Admission Reason for Admission: Palpitations Discharge Discharge Diagnosis / Problem: Palpitations; COPD Discharge Goals Goal(s): Decrease discomfort, Improve function, Diagnostic testing, Therapeutic intervention Activity Recommendations Activity Limitations: resume your previous activity . Instructions / Follow-Up Instructions / Follow-Up Please follow-up with Dr. Melendez on August 02 at 3:15PM * Stop using albuterol nebulizer; change to levalbuterol Current Hospital Diet Patient's current hospital diet: AHA Diet (Heart Healthy) Discharge Diet Recommended Diet: AHA Diet (Heart Healthy) Pending Studies Studies pending at discharge: no Medical Emergencies . Who to Call and When: Medical Emergencies: If at any time you feel your situation is an emergency, please call 911 immediately. . Non-Emergent Contact Non-Emergency issues call your: Primary Care Provider, Electron Gun Inspector . . "Provider Documentation" section prepared by Lyle Rajan. . VTE Core Measure Inpt VTE Proph given/why not?: Unfractionated heparin SQ [place] Drug Monitoring Program Search Results: patient reviewed within database, no issues identified
[2017-07-28] MEDS ORDERED: NURSING VERBAL MED ORDER ONE (14:00)
[2017-07-28] MEDS ORDERED: LIDODERM (LIDOCAINE) PATCH 5% TD ONE (15:00)
[2017-07-28 15:26] VITALS: BP 113/71; PULSE 81; TEMP 37; O2SAT 99
[2017-07-28] MEDS: ONDANSETRON INJ 2 MG/ML 2 ML VIAL IV PRN (15:27)
[2017-07-28 19:35] VITALS: BP 115/72; PULSE 78; TEMP 36.8; O2SAT 98
[2017-07-28 23:17] VITALS: BP 104/57; PULSE 81; TEMP 37; O2SAT 96
[2017-07-29] VITALS (8 sets, daily range): BP systolic 96–126; BP diastolic 59–72; PULSE 78–87; TEMP 36.5–37.1; O2SAT 90–100
[2017-07-29] MEDS: LEVOTHYROXINE 88 MCG TAB PO SCH (05:17)
[2017-07-29] MEDS: TRAMADOL HCL 50 MG TAB PO PRN ×3 (05:19→21:04)
[2017-07-29 06:40] LABS: HEMATOCRIT 28.5 % (37-47); HEMOGLOBIN 8.8 g/dL (12.0-16.0); MEAN CELL VOLUME 98.3 fL (80-100); MEAN CORPUSCULAR HEMOGLOBIN 30.3 pg (25-34); MEAN CORPUSCULAR HGB CONC 30.9 g/dl (32-36); MEAN PLATELET VOLUME 8.9 fL (7.4-10.4); PLATELET COUNT 273 K/uL (130-400); RED CELL DISTRIBUTION WIDTH CV 16.7 % (11.5-14.5); RED CELL DISTRIBUTION WIDTH SD 58.1 fL (36.4-46.3); WHITE BLOOD COUNT 13.95 K/uL (4.8-10.8)
[2017-07-29 07:13] LABS: CALCIUM 10.3 mg/dl (8.5-10.1); CREATININE 1.7 mg/dl (0.60-1.20); POTASSIUM 3.8 mmol/L (3.5-5.1)
[2017-07-29] MEDS: BUMETANIDE 1 MG TAB PO SCH ×2 (07:49→17:12)
[2017-07-29] MEDS: LOSARTAN POTASSIUM 50 MG TAB PO SCH (09:37)
[2017-07-29] MEDS: GABAPENTIN 300 MG CAP PO SCH ×3 (09:38→21:06)
[2017-07-29] MEDS: RANITIDINE HCL 150 MG TAB PO SCH ×2 (09:38→21:05)
[2017-07-29] MEDS: FERROUS SULFATE 325 MG TAB PO SCH (09:38)
[2017-07-29] MEDS: METOPROLOL SUCC 50MG EXT REL TAB PO SCH (09:38)
[2017-07-29] MEDS: SERTRALINE HCL 50 MG TAB PO SCH (09:39)
[2017-07-29] MEDS: ALLOPURINOL 300 MG TAB PO SCH (09:39)
[2017-07-29] MEDS: CHOLECALCIFEROL 1000 INTER.UNIT TAB PO SCH (09:40)
[2017-07-29] MEDS: ASPIRIN 81 MG ECTAB PO SCH (09:40)
[2017-07-29] MEDS: ATORVASTATIN 20 MG TAB PO SCH (09:45)
[2017-07-29] MEDS: PROPAFENONE HCL 150 MG TAB PO SCH ×3 (09:45→21:06)
[2017-07-29] MEDS: CEROVITE ADV FORMULA TAB PO SCH (09:45)
[2017-07-29] MEDS: ROPINIROLE HCL 5 MG TAB PO SCH (09:45)
[2017-07-29] MEDS: ROFLUMILAST 500 MCG TAB PO SCH (09:45)
[2017-07-29] MEDS: POTASSIUM CHLORIDE 20 MEQ TABCR PO SCH ×2 (09:47→17:13)
[2017-07-29] MEDS: LIDODERM (LIDOCAINE) PATCH 5% TD SCH (09:48)
[2017-07-29] MEDS: HEPARIN SOD 5000 UNIT/0.5 ML CARP SQ SCH ×2 (09:52→21:08)
[2017-07-29] MEDS: ONDANSETRON INJ 2 MG/ML 2 ML VIAL IV PRN (11:38)
[2017-07-29] MEDS ORDERED: ONDANSETRON 4MG OD TAB PO PRN (14:15)
[2017-07-29] MEDS ORDERED: ONDANSETRON 4MG OD TAB ONE (14:24)
[2017-07-29] MEDS ORDERED: ONDANSETRON 4MG OD TAB PO STA (14:29)
--- NOTE | 2017-07-29 14:56 | DIAGNOSTIC IMAGING REPORT ---
L SHOULDER MIN 2 VIEWS ROUTINE CLINICAL HISTORY: Left shoulder pain COMPARISON: None. DISCUSSION: There are osteoarthritic changes present. There are no acute fractures or dislocations. No destructive lesions are visualized. IMPRESSION: Mild degenerative change. No acute fractures. No destructive lesions are visualized. Electronically signed by: Fox Garcia M.D. 07/29/2017 2:55 PM Dictated Date/Time: 07/29/2017 2:54 PM
--- NOTE | 2017-07-29 16:52 | Progress Note ---
Subjective Date of Service: Jul 29, 2017. Subjective Pt evaluation today including: conversation w/ patient, physical exam, lab review, review of studies, review of inpatient medication list Saw/examined the patient in room 277 C/o bilateral shoulder pain otherwise, doing well, no palpitations, no chest pain Problem List Medical Problems: (1) Acute kidney injury Status: Acute (2) Acute on chronic respiratory failure Status: Acute (3) Acute renal insufficiency Status: Acute (4) Gkeyb-rb-vgodgja kidney injury Status: Acute (5) Anemia Status: Acute (6) Chronic anemia Status: Acute (7) CKD (chronic kidney disease) Status: Acute (8) COPD exacerbation Status: Acute (9) Dehydration Status: Acute (10) Dyspnea on exertion Status: Acute (11) Fall Status: Acute (12) Fever Status: Acute (13) Generalized weakness Status: Acute (14) Hematoma of skin Status: Acute (15) Hypercarbia Status: Acute (16) Hypercarbia Status: Acute (17) Hypoxia Status: Acute (18) Hypoxia Status: Acute (19) Leukocytosis Status: Acute (20) Periprosthetic fracture around internal prosthetic right shoulder joint, initial encounter Status: Acute (21) Precordial chest pain Status: Acute (22) Respiratory acidosis Status: Acute (23) Respiratory failure Status: Acute (24) Right hip pain Status: Acute (25) SBO (small bowel obstruction) Status: Acute (26) Shortness of breath Status: Acute (27) SOB (shortness of breath) Status: Acute Review of Systems Respiratory: No cough, No sputum, No shortness of breath Cardiac: No chest pain, No palpitations Musculoskeletal: + joint pain Medications Current Inpatient Medications Medications (Trade) Dose Ordered Sig/Rupinder Route Start Time Stop Time Status Last Admin Dose Admin Acetaminophen (Tylenol Tab) 650 mg Q4H PRN PO 07/27/17 03:15 08/26/17 03:14 07/27/17 10:10 650 MG Albuterol (Ventolin Hfa Inhaler) 2 puffs Q6H PRN INH 07/27/17 03:15 08/26/17 03:14 Allopurinol (Zyloprim Tab) 300 mg DAILY PO 07/27/17 09:00 08/26/17 08:59 07/29/17 09:39 300 MG Aspirin (Ecotrin Tab) 81 mg DAILY PO 07/27/17 09:00 2/15/18 08:59 07/29/17 09:40 81 MG Atorvastatin Calcium (Lipitor Tab) 20 mg DAILY PO 07/27/17 09:00 08/26/17 08:59 07/29/17 09:45 20 MG Benzonatate (Tessalon Perles Cap) 100 mg TID PRN PO 07/27/17 03:15 08/26/17 03:14 07/27/17 21:38 100 MG Bumetanide (Bumex Tab) 1 mg BIDM PO 07/27/17 08:00 08/26/17 07:59 07/29/17 07:49 1 MG Cholecalciferol (Vitamin D Tab) 2,000 inter.unit DAILY PO 07/27/17 09:00 08/26/17 08:59 07/29/17 09:40 2,000 INTER.UNIT Gabapentin (Neurontin Cap) 300 mg TID PO 07/27/17 09:00 08/26/17 08:59 07/29/17 13:28 300 MG Levothyroxine Sodium (Synthroid Tab) 88 mcg DAILYBB PO 07/27/17 06:30 08/26/17 06:29 07/29/17 05:17 88 MCG Losartan Potassium (coZAAR TAB) 50 mg DAILY PO 07/27/17 09:00 08/26/17 08:59 07/29/17 09:37 50 MG Metolazone (Zaroxolyn Tab) 2.5 mg MoFr@0700 PO 07/30/17 07:00 08/29/17 06:59 Metoprolol Succinate (Toprol Xl Tab) 50 mg DAILY PO 07/27/17 09:00 08/26/17 08:59 07/29/17 09:38 50 MG Multivitamins/ Minerals (Multivitamin W/ Minerals Tab) 1 tab DAILY PO 07/27/17 09:00 08/26/17 08:59 07/29/17 09:45 1 TAB Potassium Chloride (Klor-Con Tab) 20 meq BID17 PO 07/27/17 09:00 08/26/17 08:59 07/29/17 09:47 20 MEQ Propafenone HCl (Rythmol Tab) 150 mg TID PO 07/27/17 09:00 2/15/18 08:59 07/29/17 13:28 150 MG Ranitidine HCl (zANTac TAB) 150 mg BID PO 07/27/17 09:00 08/26/17 08:59 07/29/17 09:38 150 MG Roflumilast (Daliresp Tab) 500 mcg DAILY PO 07/27/17 09:00 08/26/17 08:59 07/29/17 09:45 500 MCG Ropinirole HCl (Requip Tab) 5 mg DAILY PO 07/27/17 09:00 08/26/17 08:59 07/29/17 09:45 5 MG Sertraline HCl (Zoloft Tab) 25 mg DAILY PO 07/27/17 09:00 08/26/17 08:59 07/29/17 09:39 25 MG Ferrous Sulfate (Feosol Tab) 325 mg DAILY PO 07/27/17 09:00 08/26/17 08:59 07/29/17 09:38 325 MG Miscellaneous Information (Order Awaiting Action) 1 ea QS N/A 07/27/17 08:00 08/26/17 07:59 Miscellaneous Information (Order Awaiting Action) 1 ea QS N/A 07/27/17 08:00 08/26/17 07:59 Prednisone (PredniSONE TAB) 10 mg DAILY PO 07/27/17 09:00 07/30/17 09:00 07/29/17 09:38 10 MG Tramadol HCl (Ultram Tab) 50 mg Q6 PRN PO 07/27/17 13:30 08/26/17 13:29 07/29/17 11:20 50 MG Heparin Sodium (Porcine) (Heparin Sq 5000 Unit/0.5ml) 5,000 unit Q12 SQ 07/27/17 21:00 08/26/17 20:59 07/29/17 09:52 5,000 UNIT Ondansetron HCl (Zofran Inj) 4 mg Q6H PRN IV 07/28/17 14:00 08/27/17 13:59 07/29/17 11:38 4 MG Lidocaine (Lidoderm Patch 5%) 1 patch QAM TD 07/29/17 09:00 08/28/17 08:59 07/29/17 09:48 1 PATCH Miscellaneous (Remove Lidoderm Patch) 1 ea DAILY@21 N/A 07/28/17 21:00 08/27/17 20:59 Ondansetron HCl (Zofran Odt) 4 mg Q6H PRN PO 07/29/17 14:15 08/28/17 14:14 Objective Vital Signs Date Time Temp Pulse Resp B/P (MAP) Pulse Ox O2 Delivery O2 Flow Rate FiO2 07/29/17 15:35 37.1 82 20 119/72 (88) 97 5.0 07/29/17 13:34 36.9 87 18 108/72 (84) 93 CPAP 4.0 07/29/17 12:29 Nasal Cannula 4.0 07/29/17 08:06 Nasal Cannula 4.0 07/29/17 08:03 36.6 80 20 109/71 (84) 100 Nasal Cannula 4.0 07/29/17 08:00 Nasal Cannula 4.0 07/29/17 05:18 36.9 84 19 126/59 (81) 90 CPAP 07/29/17 04:05 CPAP 4.0 07/29/17 00:05 CPAP 4.0 07/28/17 23:17 37.0 81 18 104/57 (73) 96 CPAP 07/28/17 20:00 CPAP 4.0 07/28/17 19:35 36.8 78 24 115/72 (86) 98 CPAP Physical Exam General Appearance: no apparent distress, + obese Respiratory/Chest: no respiratory distress, no accessory muscle use, + wheezing Cardiovascular: regular rate, rhythm, no murmur Extremities: normal inspection, no pedal edema Neurologic/Psychiatric: no motor/sensory deficits, alert, normal mood/affect Laboratory Results Last 24 Hours Test 07/29/17 05:56 White Blood Count 13.95 K/uL Red Blood Count 2.90 M/uL Hemoglobin 8.8 g/dL Hematocrit 28.5 % Mean Corpuscular Volume 98.3 fL Mean Corpuscular Hemoglobin 30.3 pg Mean Corpuscular Hemoglobin Concent 30.9 g/dl RDW Standard Deviation 58.1 fL RDW Coefficient of Variation 16.7 % Platelet Count 273 K/uL Mean Platelet Volume 8.9 fL Sodium Level 135 mmol/L Potassium Level 3.8 mmol/L Chloride Level 92 mmol/L Carbon Dioxide Level 37 mmol/L Anion Gap 6.0 mmol/L Blood Urea Nitrogen 46 mg/dl Creatinine 1.70 mg/dl Est Creatinine Clear Calc Drug Dose 36.5 ml/min Estimated GFR () 35.0 Estimated GFR (Non- 30.2 BUN/Creatinine Ratio 27.0 Random Glucose 102 mg/dl Calcium Level 10.3 mg/dl Assessment and Plan This is a 67 year old female with a PMH of obesity, severe COPD, chronic respiratory failure on 4L of O2 chronically, paroxysmal atrial fibrillation, CKD stage 4, hypothyroidism, HTN, depression/anxiety, hyperlipidemia, right sided heart failure, SIMONA on nocturnal bipap - presents with palpitations Palpitations appreciate cardiology input on this matter currently, on tele monitoring no arrhythmias noted at this time for now, we can continue Toprol and Rhythmol if no palpitations, can d/c home tomorrow and Zio patch as outpatient Fall, R LE Hematoma 07/29 Tramadol increased to 100mg L shoulder radiograph - no acute fractures R shoulder - nondisplaced humeral neck fracture 07/28 patient had a fall, seemed mechanical at the time was given 7 days of Tramadol on 07/19, which ran out yesterday will add Tramadol back on for pain LE dopplers - negative for DVT Severe COPD Chronic Respiratory Failure continue O2 at around 4L - at baseline continue nocturnal bipap continue Daliresp, chronic prednisone d/c on Breo - plan to stop duonebs and use Xopenex inhaler Hypothyroidism TSH wnl continue Synthroid dose R sided heart failure currently euvolemic continue ARB, continue metolazone and bumex at home dose DVT ppx subq heparin FULL CODE
[2017-07-30 05:20] VITALS: BP 116/67; PULSE 88; TEMP 36.5; O2SAT 96
[2017-07-30] MEDS: TRAMADOL HCL 50 MG TAB PO PRN (05:58)
[2017-07-30] MEDS: LEVOTHYROXINE 88 MCG TAB PO SCH (05:58)
[2017-07-30] MEDS ORDERED: METOLAZONE 2.5 MG TAB PO SCH (07:00)
[2017-07-30] MEDS: HEPARIN SOD 5000 UNIT/0.5 ML CARP SQ SCH (07:47)
[2017-07-30 07:53] VITALS: BP 133/78; PULSE 78; TEMP 36.4; O2SAT 100
[2017-07-30] MEDS: LOSARTAN POTASSIUM 50 MG TAB PO SCH (08:03)
[2017-07-30] MEDS: ATORVASTATIN 20 MG TAB PO SCH (08:04)
[2017-07-30] MEDS: ROFLUMILAST 500 MCG TAB PO SCH (08:04)
[2017-07-30] MEDS: ASPIRIN 81 MG ECTAB PO SCH (08:04)
[2017-07-30] MEDS: FERROUS SULFATE 325 MG TAB PO SCH (08:04)
[2017-07-30] MEDS: POTASSIUM CHLORIDE 20 MEQ TABCR PO SCH (08:04)
[2017-07-30] MEDS: BUMETANIDE 1 MG TAB PO SCH (08:04)
[2017-07-30] MEDS: PROPAFENONE HCL 150 MG TAB PO SCH (08:05)
[2017-07-30] MEDS: GABAPENTIN 300 MG CAP PO SCH (08:05)
[2017-07-30] MEDS: CEROVITE ADV FORMULA TAB PO SCH (08:05)
[2017-07-30] MEDS: ROPINIROLE HCL 5 MG TAB PO SCH (08:05)
[2017-07-30] MEDS: SERTRALINE HCL 50 MG TAB PO SCH (08:06)
[2017-07-30] MEDS: CHOLECALCIFEROL 1000 INTER.UNIT TAB PO SCH (08:06)
[2017-07-30] MEDS: RANITIDINE HCL 150 MG TAB PO SCH (08:06)
[2017-07-30] MEDS: METOPROLOL SUCC 50MG EXT REL TAB PO SCH (08:06)
[2017-07-30] MEDS: ALLOPURINOL 300 MG TAB PO SCH (08:07)
[2017-07-30] MEDS: LIDODERM (LIDOCAINE) PATCH 5% TD SCH (08:08)
--- NOTE | 2017-07-30 08:59 | Progress Note ---
Subjective Date of Service: Jul 30, 2017. Subjective Pt evaluation today including: conversation w/ patient, physical exam, lab review, review of studies, review of inpatient medication list Saw/examined the patient in room 277 She's doing okay, c/o pain all over, mostly in the shoulders states her breathing is at baseline good PO intake no nausea/vomiting/diarrhea Problem List Medical Problems: (1) Acute kidney injury Status: Acute (2) Acute on chronic respiratory failure Status: Acute (3) Acute renal insufficiency Status: Acute (4) Lhovi-ft-qlxobph kidney injury Status: Acute (5) Anemia Status: Acute (6) Chronic anemia Status: Acute (7) CKD (chronic kidney disease) Status: Acute (8) COPD exacerbation Status: Acute (9) Dehydration Status: Acute (10) Dyspnea on exertion Status: Acute (11) Fall Status: Acute (12) Fever Status: Acute (13) Generalized weakness Status: Acute (14) Hematoma of skin Status: Acute (15) Hypercarbia Status: Acute (16) Hypercarbia Status: Acute (17) Hypoxia Status: Acute (18) Hypoxia Status: Acute (19) Leukocytosis Status: Acute (20) Periprosthetic fracture around internal prosthetic right shoulder joint, initial encounter Status: Acute (21) Precordial chest pain Status: Acute (22) Respiratory acidosis Status: Acute (23) Respiratory failure Status: Acute (24) Right hip pain Status: Acute (25) SBO (small bowel obstruction) Status: Acute (26) Shortness of breath Status: Acute (27) SOB (shortness of breath) Status: Acute Review of Systems Constitutional: No fever, No chills Respiratory: + shortness of breath (chronic) Musculoskeletal: + joint pain (b/l shoulders, R LE) Heme: + abnormal bleeding/bruising (R LE) Medications Current Inpatient Medications Medications (Trade) Dose Ordered Sig/Rupinder Route Start Time Stop Time Status Last Admin Dose Admin Acetaminophen (Tylenol Tab) 650 mg Q4H PRN PO 07/27/17 03:15 08/26/17 03:14 07/27/17 10:10 650 MG Albuterol (Ventolin Hfa Inhaler) 2 puffs Q6H PRN INH 07/27/17 03:15 08/26/17 03:14 Allopurinol (Zyloprim Tab) 300 mg DAILY PO 07/27/17 09:00 2/15/18 08:59 07/30/17 08:07 300 MG Aspirin (Ecotrin Tab) 81 mg DAILY PO 07/27/17 09:00 08/26/17 08:59 07/30/17 08:04 81 MG Atorvastatin Calcium (Lipitor Tab) 20 mg DAILY PO 07/27/17 09:00 08/26/17 08:59 07/30/17 08:04 20 MG Benzonatate (Tessalon Perles Cap) 100 mg TID PRN PO 07/27/17 03:15 08/26/17 03:14 07/27/17 21:38 100 MG Bumetanide (Bumex Tab) 1 mg BIDM PO 07/27/17 08:00 08/26/17 07:59 07/30/17 08:04 1 MG Cholecalciferol (Vitamin D Tab) 2,000 inter.unit DAILY PO 07/27/17 09:00 08/26/17 08:59 07/30/17 08:06 2,000 INTER.UNIT Gabapentin (Neurontin Cap) 300 mg TID PO 07/27/17 09:00 08/26/17 08:59 07/30/17 08:05 300 MG Levothyroxine Sodium (Synthroid Tab) 88 mcg DAILYBB PO 07/27/17 06:30 08/26/17 06:29 07/30/17 05:58 88 MCG Losartan Potassium (coZAAR TAB) 50 mg DAILY PO 07/27/17 09:00 08/26/17 08:59 07/30/17 08:03 50 MG Metolazone (Zaroxolyn Tab) 2.5 mg MoFr@0700 PO 07/30/17 07:00 08/29/17 06:59 07/30/17 06:00 2.5 MG Metoprolol Succinate (Toprol Xl Tab) 50 mg DAILY PO 07/27/17 09:00 08/26/17 08:59 07/30/17 08:06 50 MG Multivitamins/ Minerals (Multivitamin W/ Minerals Tab) 1 tab DAILY PO 07/27/17 09:00 08/26/17 08:59 07/30/17 08:05 1 TAB Potassium Chloride (Klor-Con Tab) 20 meq BID17 PO 07/27/17 09:00 08/26/17 08:59 07/30/17 08:04 20 MEQ Propafenone HCl (Rythmol Tab) 150 mg TID PO 07/27/17 09:00 08/26/17 08:59 07/30/17 08:05 150 MG Ranitidine HCl (zANTac TAB) 150 mg BID PO 07/27/17 09:00 08/26/17 08:59 07/30/17 08:06 150 MG Roflumilast (Daliresp Tab) 500 mcg DAILY PO 07/27/17 09:00 08/26/17 08:59 07/30/17 08:04 500 MCG Ropinirole HCl (Requip Tab) 5 mg DAILY PO 07/27/17 09:00 08/26/17 08:59 07/30/17 08:05 5 MG Sertraline HCl (Zoloft Tab) 25 mg DAILY PO 07/27/17 09:00 08/26/17 08:59 07/30/17 08:06 25 MG Ferrous Sulfate (Feosol Tab) 325 mg DAILY PO 07/27/17 09:00 08/26/17 08:59 07/30/17 08:04 325 MG Miscellaneous Information (Order Awaiting Action) 1 ea QS N/A 07/27/17 08:00 08/26/17 07:59 Miscellaneous Information (Order Awaiting Action) 1 ea QS N/A 07/27/17 08:00 08/26/17 07:59 Prednisone (PredniSONE TAB) 10 mg DAILY PO 07/27/17 09:00 07/30/17 09:00 07/30/17 08:05 10 MG Heparin Sodium (Porcine) (Heparin Sq 5000 Unit/0.5ml) 5,000 unit Q12 SQ 07/27/17 21:00 08/26/17 20:59 07/30/17 07:47 5,000 UNIT Ondansetron HCl (Zofran Inj) 4 mg Q6H PRN IV 07/28/17 14:00 08/27/17 13:59 07/29/17 11:38 4 MG Lidocaine (Lidoderm Patch 5%) 1 patch QAM TD 07/29/17 09:00 08/28/17 08:59 07/30/17 08:08 1 PATCH Miscellaneous (Remove Lidoderm Patch) 1 ea DAILY@21 N/A 07/28/17 21:00 08/27/17 20:59 07/29/17 21:04 1 EA Ondansetron HCl (Zofran Odt) 4 mg Q6H PRN PO 07/29/17 14:15 08/28/17 14:14 07/30/17 05:58 4 MG Tramadol HCl (Ultram Tab) 100 mg Q6H PRN PO 07/29/17 16:45 08/28/17 16:44 07/30/17 05:58 100 MG Pantoprazole Sodium (Protonix Tab) 40 mg QAM PO 07/30/17 09:00 08/04/17 08:59 Objective Vital Signs Date Time Temp Pulse Resp B/P (MAP) Pulse Ox O2 Delivery O2 Flow Rate FiO2 07/30/17 07:53 36.4 78 20 133/78 (96) 100 4.0 07/30/17 05:20 36.5 88 21 116/67 (83) 96 BiPAP 4.5 07/30/17 04:00 CPAP 4.0 07/30/17 00:00 CPAP 4.0 07/29/17 23:44 36.5 78 19 96/62 (73) 99 Nasal Cannula 4.5 07/29/17 20:00 97 Nasal Cannula 4.0 CPAP 07/29/17 19:15 36.7 79 20 116/66 (83) 99 CPAP 4.0 07/29/17 16:00 97 Nasal Cannula 4.0 CPAP 07/29/17 15:35 37.1 82 20 119/72 (88) 97 5.0 07/29/17 13:34 36.9 87 18 108/72 (84) 93 CPAP 4.0 07/29/17 12:29 Nasal Cannula 4.0 Physical Exam General Appearance: no apparent distress, + obese Respiratory/Chest: no respiratory distress, no accessory muscle use, + decreased breath sounds Cardiovascular: regular rate, rhythm, no edema, no murmur Extremities: no pedal edema, + pertinent finding (+hematoma noted on the R LE) Neurologic/Psychiatric: no motor/sensory deficits, alert, normal mood/affect Assessment and Plan This is a 67 year old female with a PMH of obesity, severe COPD, chronic respiratory failure on 4L of O2 chronically, paroxysmal atrial fibrillation, CKD stage 4, hypothyroidism, HTN, depression/anxiety, hyperlipidemia, right sided heart failure, SIMONA on nocturnal bipap - presents with palpitations Palpitations appreciate cardiology input on this matter currently, on tele monitoring no arrhythmias noted at this time for now, we can continue Toprol and Rhythmol if no palpitations, can d/c home tomorrow and Zio patch as outpatient Fall, R LE Hematoma 07/30 will d/c today to [facility] with Tramadol 100mg 07/29 Tramadol increased to 100mg L shoulder radiograph - no acute fractures R shoulder - nondisplaced humeral neck fracture 07/28 patient had a fall, seemed mechanical at the time was given 7 days of Tramadol on 07/19, which ran out yesterday will add Tramadol back on for pain LE dopplers - negative for DVT Severe COPD Chronic Respiratory Failure continue O2 at around 4L - at baseline continue nocturnal bipap continue Daliresp, chronic prednisone d/c on Breo - plan to stop duonebs and use Xopenex inhaler Hypothyroidism TSH wnl continue Synthroid dose R sided heart failure currently euvolemic continue ARB, continue metolazone and bumex at home dose DVT ppx subq heparin FULL CODE
[2017-07-30] MEDS ORDERED: PANTOprazole SOD 40 MG TAB PO SCH (09:00)
[2017-07-30] MEDS ORDERED: ULT50X PO (09:09)
[2017-07-30] MEDS ORDERED: OMEP20CA9 PO (09:09)
[2017-07-30] MEDS ORDERED: FLUT1INH7 INH (09:09)
[2017-07-30] MEDS ORDERED: LDDP5 TD (09:09)
--- NOTE | 2017-07-30 09:17 | Discharge Summary ---
Discharge Summary Date of Service Jul 30, 2017. Discharge Summary Admission Date: Jul 27, 2017 at 02:46 Discharge Date: Jul 30, 2017 Discharge Disposition: [facility] facility Principal Diagnosis: Severe COPD Chronic Respiratory Failure Palpitations Fall Nondisplaced Humeral Fracture, R Medication Reconciliation New Medications: Levalbuterol Hcl (Levalbuterol Hcl) 1.25 Mg/3 Ml Neb 1.25 MG INH QID for 30 Days, #360 ML 3 Refills Omeprazole (Prilosec) 20 Mg Cap 1 CAP PO DAILY for 30 Days, #30 CAP 5 Refills Lidocaine (Lidocaine) 1 Patch Tdsy 1 PATCH TD QAM for 10 Days, #10 PATCH Prednisone (Prednisone) 10 Mg Tab 10 MG PO DAILY for 30 Days, #30 TAB Tramadol HCl (Tramadol HCl) 50 Mg Tab 100 MG PO Q6 PRN for Pain for 5 Days, #40 TAB Continued Medications: Acetaminophen (Tylenol) 325 Mg Tab 650 MG PO Q4H PRN for Pain or Fever, TAB Albuterol Hfa (Ventolin Hfa) 200 Puffs/41244 Mcg Aers 2-4 PUFFS INH Q6H, INHALER Allopurinol (Zyloprim) 300 Mg Tab 300 MG PO DAILY, TAB Aspirin (Aspirin Ec) 81 Mg Tab 81 MG PO DAILY Atorvastatin (Lipitor) 20 Mg Tab 20 MG PO DAILY, TAB Benzonatate (Tessalon Perles) 100 Mg Cap 100 MG PO TID PRN for Cough, CAP Bumetanide (Bumex) 1 Mg Tab 1 TAB PO BID for 90 Days, #180 TAB 1 Refill Cholecalciferol (Vitamin D3) 1,000 Unit Tab 2000 INTER.UNIT PO DAILY, TAB Ferrous Sulfate (Ferrous Sulfate) 325 Mg Tab 325 MG PO DAILY Fluticasone Furoate-Vilanterol (Breo Ellipta 200-25 Mcg/INH) 1 Inh Inh 1 PUFF INH DAILY Fluticasone Furoate-Vilanterol (Breo Ellipta 200-25 Mcg/INH) Unknown Strength Inh Unknown Dose INH DAILY for 30 Days Gabapentin (Neurontin) 300 Mg Cap 300 MG PO TID, CAP Levothyroxine Sodium (Synthroid) 88 Mcg Tab 88 MCG PO DAILY, TAB Losartan Potassium (Cozaar) 50 Mg Tab 50 MG PO DAILY, TAB Metolazone (Metolazone) 2.5 Mg Tab 2.5 MG PO UD 2.5 mg by mouth twice per week on Wednesday and Wednesday. Metoprolol Succinate (Toprol Xl) 50 Mg Tab 50 MG PO DAILY, TAB Multivitamins/Minerals (Certavite/Antioxidants) 1 Tab Tab 1 TAB PO DAILY Potassium Ext Rel (Klor-Con) 20 Meq Tabcr 20 MEQ PO BID, TAB Propafenone Hcl (Propafenone Hcl) 150 Mg Tab 150 MG PO TID Ranitidine (Zantac) 150 Mg Tab 150 MG PO BID, TAB Roflumilast (Daliresp) 500 Mcg Tab 1 TAB PO DAILY for 90 Days, #90 TAB 3 Refills Ropinirole (Requip) 5 Mg Tab 5 MG PO DAILY, TAB Sertraline (Zoloft) 25 Mg Tab 25 MG PO DAILY, TAB Umeclidinium [place] (Incruse Ellipta) 62.5 Mcg/Inh Inh 1 PUFF INH DAILY Discontinued Medications: Albuterol Sulf (Proventil 0.083% 2.5MG/3ML) 2.5 Mg/3 Ml Nebu 2.5 MG NEB QID, EA Prednisone (Prednisone) 10 Mg Tab 10 MG PO UD for 12 Days, #30 TABS Start taking 40mg daily for 3 days, then 30mg for 3 days, then 20mg for 3 days, then 10mg for 3 days and stop Admission Information HPI (per Admitting provider): The patient is a 67 year old female who presents to the Emergency Room after palpitations at rest which lasted for 30 minutes. Patient denies associated with chest pain or shortness of breath. At baseline, the patient wears 4 liters of nasal cannula oxygen. 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, cervical spinal fusion, lumbar spinal stenosis Physical Exam (per Admitting): General Appearance: no apparent distress, + obese Head: normocephalic, atraumatic Eyes: normal inspection, EOMI, sclerae normal ENT: normal ENT inspection, hearing grossly normal, pharynx normal Neck: supple, no JVD, trachea midline Respiratory/Chest: chest non-tender, normal breath sounds, no respiratory distress, no accessory muscle use, + pertinent finding (no wheezing or crackles) Cardiovascular: regular rate, rhythm, normal peripheral pulses Abdomen/GI: normal bowel sounds, non tender, soft, no organomegaly, no pulsatile mass Back: normal inspection, no muscle spasm Extremities/Musculoskelatal: no calf tenderness, + pertinent finding ( patient can use right hand movements but cannot lift right shoulder, also has brusing above left ankle) Neurologic/Psych: alert, normal mood/affect, oriented x 3 Skin: normal color, warm/dry, no rash Hospital Course This is a 67 year old female with a PMH of obesity, severe COPD, chronic respiratory failure on 4L of O2 chronically, paroxysmal atrial fibrillation, CKD stage 4, hypothyroidism, HTN, depression/anxiety, hyperlipidemia, right sided heart failure, SIMONA on nocturnal bipap - presents with palpitations Palpitations appreciate cardiology input on this matter currently, on tele monitoring no arrhythmias noted at this time for now, we can continue Toprol and Rhythmol if no palpitations, can d/c home tomorrow and Zio patch as outpatient Fall, R LE Hematoma 07/30 will d/c today to [facility] with Tramadol 100mg 07/29 Tramadol increased to 100mg L shoulder radiograph - no acute fractures R shoulder - nondisplaced humeral neck fracture 07/28 patient had a fall, seemed mechanical at the time was given 7 days of Tramadol on 07/19, which ran out yesterday will add Tramadol back on for pain LE dopplers - negative for DVT Severe COPD Chronic Respiratory Failure continue O2 at around 4L - at baseline continue nocturnal bipap continue Daliresp, chronic prednisone d/c on Breo - plan to stop duonebs and use Xopenex inhaler Hypothyroidism TSH wnl continue Synthroid dose R sided heart failure currently euvolemic continue ARB, continue metolazone and bumex at home dose DVT ppx subq heparin FULL CODE Total time spent on discharge = 40 minutes This includes examination of the patient, discharge planning, medication reconciliation, and communication with other providers. Discharge Instructions Please follow-up with Dr. Melendez on August 02 at 3:15PM * Stop using albuterol nebulizer; change to levalbuterol
[2017-07-30] MEDS: ACETAMINOPHEN 325 MG TAB PO PRN (09:30)
[2017-07-30 11:38] VITALS: BP 133/78; PULSE 78; TEMP 36.4; O2SAT 100
[2017-07-30 12:14] VITALS: BP 110/68; PULSE 78; TEMP 36.3; O2SAT 96
== END 2017-07-30 12:15 | DRG 189 ==
LOC: EDBD 00:41 → C.EDA 00:44 → C.MED 02:46 → ENRESERV 03:08
PROVIDERS: ADMIT Hospitalist; ATTEND Family Medicine
DX: J96.10 Chronic respiratory failure, unspecified whether with hypoxia or hypercapnia (principal); E66.2 Morbid (severe) obesity with alveolar hypoventilation; N18.4 Chronic kidney disease, stage 4 (severe); I50.32 Chronic diastolic (congestive) heart failure; N17.9 Acute kidney failure, unspecified; Z68.41 Body mass index [BMI] 40.0-44.9, adult; J44.1 Chronic obstructive pulmonary disease with (acute) exacerbation; S42.291A Other displaced fracture of upper end of right humerus, initial encounter for closed fracture; R00.2 Palpitations; W19.XXXA Unspecified fall, initial encounter; K21.9 Gastro-esophageal reflux disease without esophagitis; I48.0 Paroxysmal atrial fibrillation; F32.9 Major depressive disorder, single episode, unspecified; E78.5 Hyperlipidemia, unspecified; Z99.81 Dependence on supplemental oxygen; J45.909 Unspecified asthma, uncomplicated; I25.2 Old myocardial infarction; Z96.641 Presence of right artificial hip joint; Z96.611 Presence of right artificial shoulder joint; Z87.891 Personal history of nicotine dependence; Z83.3 Family history of diabetes mellitus; Z79.82 Long term (current) use of aspirin; Z79.51 Long term (current) use of inhaled steroids; Z79.52 Long term (current) use of systemic steroids; Z79.01 Long term (current) use of anticoagulants; Z82.49 Family history of ischemic heart disease and other diseases of the circulatory system

== ENCOUNTER 2017-08-09 05:02 | Inpatient (IN) | payer OTHER ==
[~2017-08-09] VITALS: Ht 162.6 cm; Wt 112.2 kg
[2017-08-09] VITALS (14 sets, daily range): BP systolic 104–144; BP diastolic 49–76; PULSE 72–86; TEMP 35.8–37.6; O2SAT 92–100; Ht 162.6 cm; Wt 112.2 kg
[~2017-08-09 05:02] MED LIST changes: -ALBINS/ NEB; +LDDP5 TD; +LEVA1.258 INH; +OMEP20CA9 PO; +ULT50X PO
[2017-08-09] MEDS ORDERED: HYDROmorphone INJ 1 MG/ML SYR IV STA (05:20)
[2017-08-09 05:48] LABS: BASO % 0.3 %; BASO ABS # 0.04 K/uL (0-0.2); EOS % 6.2 %; EOS ABS # 0.76 K/uL (0-0.5); HEMATOCRIT 27.1 % (37-47); HEMOGLOBIN 8.2 g/dL (12.0-16.0); IG# 0.16 K/uL (0.00-0.02); LYMPH % 24.1 %; LYMPH ABS # 2.98 K/uL (1.2-3.4); MEAN CELL VOLUME 98.9 fL (80-100); MEAN CORPUSCULAR HEMOGLOBIN 29.9 pg (25-34); MEAN CORPUSCULAR HGB CONC 30.3 g/dl (32-36); MEAN PLATELET VOLUME 8.9 fL (7.4-10.4); MONO ABS # 0.86 K/uL (0.11-0.59); NEUT % 61.1 %; NEUT ABS # 7.54 K/uL (1.4-6.5); PLATELET COUNT 238 K/uL (130-400); RED CELL DISTRIBUTION WIDTH CV 16.6 % (11.5-14.5); RED CELL DISTRIBUTION WIDTH SD 59.7 fL (36.4-46.3); WHITE BLOOD COUNT 12.34 K/uL (4.8-10.8)
[2017-08-09 05:54] LABS: INR 1.1 (0.9-1.1); PTT PATIENT 24.7 SECONDS (21.0-31.0)
[2017-08-09] MEDS ORDERED: OPTIRAY 320 IV PRN (06:00)
[2017-08-09 06:04] LABS: ALBUMIN 2.8 gm/dl (3.4-5.0); ALT/SGPT 15 U/L (12-78); AST/SGOT 11 U/L (15-37); BLOOD UREA NITROGEN 40 mg/dl (7-18); CALCIUM 9.7 mg/dl (8.5-10.1); CARBON DIOXIDE 36 mmol/L (21-32); CREATININE 2.14 mg/dl (0.60-1.20); GLUCOSE 113 mg/dl (70-99); LIPASE 125 U/L (73-393); POTASSIUM 4.6 mmol/L (3.5-5.1); SODIUM 138 mmol/L (136-145)
[2017-08-09 06:07] LABS: ALKALINE PHOSPHATASE 86 U/L (45-117); TOTAL PROTEIN 7.4 gm/dl (6.4-8.2)
[2017-08-09] MEDS ORDERED: ACETAMINOPHEN 325 MG TAB PO PRN (06:45)
[2017-08-09] MEDS ORDERED: BENZONATATE 100MG CAP PO PRN (06:45)
[2017-08-09 07:20] LABS: HEMATOCRIT 25.4 % (37-47); HEMOGLOBIN 7.7 g/dL (12.0-16.0)
--- NOTE | 2017-08-09 07:31 | DIAGNOSTIC IMAGING REPORT ---
ABD/PELVIS NO IV OR ORAL CONT CLINICAL HISTORY: 67 years-old Female presenting with eval for diverticulitis, diffuse abdominal pain. TECHNIQUE: Multidetector CT of the abdomen and pelvis was performed without the use of intravenous contrast. IV contrast: None. A dose lowering technique was used consistent with the principles of ALARA (as low as reasonably achievable). COMPARISON: 02/19/2017. CT DOSE (mGy.cm): The estimated cumulative dose is 1576.93 mGy.cm. 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 Lung bases: Dependent peribronchovascular consolidation and bandlike opacities greater in the left lower lobe. Scattered debris and subsegmental lower lobe airways with mild bronchial wall thickening. Mosaic attenuation also noted. Multichamber enlargement of the heart. Coronary artery calcification. No pericardial or pleural effusion. Liver: Normal morphology. Normal density. Biliary: Mild biliary ductal prominence likely a reservoir effect in the post cholecystectomy state. Gallbladder surgically absent. Pancreas: Normal noncontrast appearance. Spleen: Normal noncontrast appearance. Adrenal glands: 11 mm nodule in the lateral limb of the right adrenal gland characteristic of a benign adrenal adenoma by density. The appearance is unchanged from prior CT. Nodularity of the left adrenal gland also unchanged, likely also underlying benign adrenal adenoma. Kidneys and ureters: Intermediate density slightly exophytic 1.8 cm lesion arising from the posterior aspect of the interpolar region of the left kidney (series 3 image 166). This appeared cystic on the prior exam, possibly indicating hemorrhagic or proteinaceous cyst. Water density 3.3 cm exophytic cyst arising from the right kidney. Overall the kidneys demonstrate prominent lobulations. No nephrolithiasis. No hydronephrosis. Ureters normal. Evaluation of the distal ureter slightly limited due to streak artifact arising from the total right hip prosthesis. Bladder: Evaluation slightly degraded streak artifact. Otherwise normal. Pelvic organs: Normal noncontrast appearance allowing for regional streak artifact. Bowel: Limited diverticulosis in the proximal sigmoid colon. No bowel obstruction. Peritoneal cavity: No free fluid or intraperitoneal gas. Lymph nodes: Enlarged right external iliac lymph node measuring 10 mm in the short axis (series 3 image 337), minimally increase in size from prior exam. Allowing for noncontrast technique, no other sites of potential lymphadenopathy. This may be reactive. Vasculature: Atherosclerosis of the normal caliber abdominal aorta. Extensive calcified atherosclerotic plaque at the origins of the renal arteries. Abdominal wall: Diastasis of the rectus abdominis. Musculoskeletal: Asymmetric atrophy of the right psoas muscle. Postsurgical changes of total right hip arthroplasty. Degenerative changes of the spine also noted. IMPRESSION: 1. Limited diverticulosis without evidence of diverticulitis. No bowel obstruction or convincing evidence of acute intra-abdominal pathology allowing for noncontrast technique. 2. Bibasilar peribronchovascular consolidation with minimal debris in the airways and bronchial wall thickening could relate to chronic aspiration. These findings are unchanged since the prior exam. 3. Borderline enlarged right external iliac lymph node, slightly increased in size from prior. This may be reactive. 4. Chronic additional findings as above. Electronically signed by: Mukund Tirado M.D. 08/09/2017 7:30 AM Dictated Date/Time: 08/09/2017 7:15 AM
[2017-08-09] MEDS: LEVALBUTEROL 1.25MG/3ML NEB INH SCH ×5 (07:55→19:43)
--- NOTE | 2017-08-09 08:38 | HISTORY & PHYSICAL EXAMINATION ---
DATE OF ADMISSION: 08/09/2017 PRIMARY CARE PHYSICIAN: Dr. Melendez. CHIEF COMPLAINT: Bright red rectal bleed for the last 3 days. HISTORY OF PRESENT COMPLAINT: She is a 67-year-old obese female with a significant past medical history of severe COPD, on home oxygen, atrial fibrillation, off Coumadin, chronic kidney disease stage III, esophageal reflux, hyperlipidemia, spinal stenosis and also acute hypothyroidism, apparently has been complaining of bright red rectal bleed for the last 3 days. She also has had a fall about 3 weeks ago and she fell on her bottom and she has been complaining of more pain in the lower back and the pain goes around her sides and comes in front of her belly. There is no rash associated with it. She also has a hematoma in the right leg with swelling of the right leg and they were checked for negative DVT recently in the doctor's office and the hematoma seems to be red and tender, but denies to any fever, chills or rigors. In the ER, she was hemodynamically stable and her hemoglobin was noted to be 8.2, which has not significantly dropped from her prior test, but we will admit her to the telemetry unit and check serial H&H to make sure there is no ongoing bleeding. Her COPD seems to be stable at this time. PAST MEDICAL HISTORY: Significant for severe COPD with chronic respiratory failure, on oxygen, history of right-sided heart failure, atrial fibrillation, off anticoagulation, chronic kidney disease, esophageal reflux, hypertension, hyperlipidemia, spinal stenosis and also depression, anxiety, and hypothyroidism. PAST SURGICAL HISTORY: Significant for neck spinal fusion below C2, appendectomy as a child, cholecystectomy, repair of the wrist secondary to fracture and shoulder surgery and total hip replacement on the right side. FAMILY HISTORY: Mother at 58 from diabetes and CAD complications. Father at 50, unknown cause . SOCIAL HISTORY: She is . She has 1 child. She lives with her daughter. She quit smoking in 2009. She does not use any alcohol and she has been reasonably active with a cane, she uses at times. ALLERGIES: SHE IS ALLERGIC TO ADHESIVES, LATEX AND MORPHINE. MEDICATIONS: She has been taking aspirin 81 mg daily, metolazone 2.5 mg as directed, Tylenol 650 mg q. 4 hourly p.r.n., Ventolin HFA 2-4 puffs q. 6 hourly, Zyloprim 300 mg daily, Lipitor 20 mg daily, Tessalon Perles as directed, Bumex 1 mg b.i.d., vitamin D3 1000 units tablet 2 tablets daily, ferrous sulfate 325 mg daily, Breo Ellipta 200/25 one inhalation daily, Neurontin 300 mg p.o. t.i.d., Xopenex via nebulizer solution 4 times daily, Synthroid 88 mcg daily, lidocaine patch as directed, losartan 50 mg daily, Toprol-XL 50 mg daily, multivitamin 1 tablet daily, omeprazole 20 mg daily, potassium 20 mEq daily, prednisone as directed, propafenone 150 mg t.i.d., Zantac 150 mg b.i.d., Daliresp, roflumilast 500 mcg daily, Requip 5 mg p.o. daily, Zoloft 25 mg daily, tramadol 100 mg q. 6 hourly, Incruse Ellipta 62.5 mcg inhalation 1 puff daily. REVIEW OF SYSTEMS: Other systemic review unremarkable except for those mentioned in history of present complaint. PHYSICAL EXAMINATION: GENERAL: On examination in the Emergency Room, she was not having any acute distress. VITAL SIGNS: Temperature 36.9, pulse was 85, blood pressure 158/56, saturation 98% on 4 liters nasal cannula. HEENT: Unremarkable. NECK: Supple. No JVD, no bruit. CHEST: Decreased breath sounds with occasional crackles. HEART: S1, S2 regular, no murmur. ABDOMEN: Soft, benign, mildly tender in the right lower quadrant. No guarding or rigidity. Bowel sounds present. EXTREMITIES: 1+ edema on the right side, trace on the left. She has a hematoma on the lower right part of the leg, which is tender with increased local temperature and this leg was negative for deep venous thrombosis as per the patient. MUSCULOSKELETAL SYSTEM: Did not show any acute arthritis involving any joint. CENTRAL NERVOUS SYSTEM: She was alert, awake, oriented x3. Generally weak, but no focal neuro deficit appreciated. LABORATORY AND DIAGNOSTIC DATA: Noted today, white count was 12.34, H&H 8.2/27.1, not significantly different compared with hemoglobin 2 weeks ago, which was in 8.8 range. Platelet 238. Sodium 138, potassium 4.6, chloride 97, carbon dioxide 36, BUN 40, creatinine 2.14. Compared with BUN and creatinine on July 29, she seemed to be more dry. Random blood glucose 113. LFTs unremarkable. Lipase was 1.25. PT and INR unremarkable. CT of the abdomen and pelvis pending for the time being. EKG was in junctional rhythm with a rate of 80 per minute with nonspecific ST-T wave changes. IMPRESSION AND PLAN: 1. Bright red rectal bleeding seems to be intermittent, could be secondary to hemorrhoids, rule out diverticular bleed, does not seem to be bleeding from upper gastrointestinal. Hemoglobin has not dropped significantly. We will check hemoglobin q. 6 hourly. We will hold aspirin. 2. Status post fall 3 weeks back with ongoing back pain. She does have abdominal pain as well. A CAT scan of the abdomen is pending. She has chronic back pain, continue with gabapentin and tramadol for pain control. She does not have any radiculopathy on examination. 3. Severe chronic obstructive pulmonary disease without any exacerbations, has been on oxygen, continue with that. 4. History atrial fibrillation, was on Coumadin, but not right now; no acute symptoms from that at this time. 5. Chronic kidney disease, seems to be worse at this time. We will give her a small amount of IV fluid and observe for any congestive changes as she has a history of heart failure as well. 6. Depression and anxiety. Continue with current medications. 7. Hypothyroidism. Continue with replacement. 8. Deep venous thrombosis prophylaxis with sequential compression devices. 9. Code status. She will be a full code. In my clinical assessment, the beneficiary meets criteria as per CMS for 2 midnights' stay in the hospital. Also, she has a hematoma on the right lower leg with adjoining cellulitis. We will put her on Augmentin for a possible infection. [facility]
[2017-08-09] MEDS: HYDROmorphone INJ 0.5 MG/0.5 ML SYR IV PRN ×3 (09:17→20:33)
[2017-08-09] MEDS: SODIUM CHLORIDE 0.9% 1000ML 1,000 ML IV SCH (09:17)
[2017-08-09] MEDS: ATORVASTATIN 20 MG TAB PO SCH (09:29)
[2017-08-09] MEDS: AMOXICILLIN/CLAVULANATE TAB 875 MG TAB PO SCH ×2 (09:29→17:16)
[2017-08-09] MEDS: CEROVITE ADV FORMULA TAB PO SCH (09:29)
[2017-08-09] MEDS: POTASSIUM CHLORIDE 20 MEQ TABCR PO SCH ×2 (09:29→17:16)
[2017-08-09] MEDS: BUMETANIDE 1 MG TAB PO SCH ×2 (09:29→22:12)
[2017-08-09] MEDS: ROFLUMILAST 500 MCG TAB PO SCH (09:29)
[2017-08-09] MEDS: LEVOTHYROXINE 88 MCG TAB PO SCH (09:29)
[2017-08-09] MEDS: ROPINIROLE HCL 5 MG TAB PO SCH (09:30)
[2017-08-09] MEDS: RANITIDINE HCL 150 MG TAB PO SCH ×2 (09:30→22:13)
[2017-08-09] MEDS: FERROUS SULFATE 325 MG TAB PO SCH (09:30)
[2017-08-09] MEDS: METOPROLOL SUCC 50MG EXT REL TAB PO SCH (09:30)
[2017-08-09] MEDS: GABAPENTIN 300 MG CAP PO SCH ×3 (09:30→22:13)
[2017-08-09] MEDS: PROPAFENONE HCL 150 MG TAB PO SCH ×3 (09:30→22:14)
[2017-08-09] MEDS: ALLOPURINOL 300 MG TAB PO SCH (09:30)
[2017-08-09] MEDS: LIDODERM (LIDOCAINE) PATCH 5% TD SCH (09:31)
[2017-08-09] MEDS: CHOLECALCIFEROL 1000 INTER.UNIT TAB PO SCH (09:31)
[2017-08-09] MEDS: PANTOprazole SOD 40 MG TAB PO SCH (09:31)
[2017-08-09] MEDS: SERTRALINE HCL 50 MG TAB PO SCH (09:31)
[2017-08-09] MEDS: LOSARTAN POTASSIUM 50 MG TAB PO SCH (09:31)
[2017-08-09] MEDS: ONDANSETRON INJ 2 MG/ML 2 ML VIAL IV PRN (11:16)
[2017-08-09] MEDS: ALBUTEROL HFA 8 GM INHALER INH SCH ×2 (12:19→17:59)
--- NOTE | 2017-08-09 12:31 | GASTROINTESTINAL CONSULTATION ---
DATE OF CONSULTATION: 08/09/2017 ATTENDING PHYSICIAN: Dr. Thomas. CONSULTING PHYSICIAN: Dr. Brandt. REASON FOR CONSULTATION: Rectal bleeding, anemia. HISTORY OF PRESENT ILLNESS: Eneida Lee is a 67-year-old female who presented to the Department of Emergency Medicine earlier this morning with complaints of bright red blood for 3 days. She did have a recent fall approximately 3 weeks ago and did have a shoulder fracture per the patient as well as continued low back pain and right lower extremity pain with reported hematoma. Upon arrival to the Department of Emergency Medicine, she was noted to have an H&H of 8.2 and 27.1. Review of the patient's medical record does reveal that on 10/31/2012, in fact had sigmoidoscopy with normal exam up to [address] Ruth Thomas did note that her bleeding at that time which she was undergoing a procedure for, was most likely related to anal bleeding, it was not visualized on the sigmoidoscopy. She did have a full colonoscopy in 08/2011 and was noted to have 1 sigmoid polyp removed as well as some sigmoid diverticulosis and underwent upper endoscopy at the same time and was noted to have a hiatal hernia, but no source of GI bleeding was found at that time as well. Her H&H today was noted to be 7.7 and 25.4. It should be noted that the patient has been chronically anemic throughout her reviewed medical history with no normal H&H findings until 2008. She did undergo a CT scan of her abdomen and pelvis upon arrival in the ER without p.o. or IV contrast and it did show limited diverticulosis without evidence of diverticulitis and no other significant findings. The time that I saw the patient, she does complain of having rectal bleeding frequently. She states that she is not having any pain in her rectal area and states that she is not having any constipation. She does, however, report bilateral back pain in the lumbar region as well as bilateral rib pain and right shoulder pain as well as right lower extremity pain. I did have a discussion with the patient regarding her need for invasive testing to further evaluate her rectal bleeding. She stated that she was not interested in undergoing any invasive testing, especially related to colonoscopy. She denied any further complaints. PAST MEDICAL HISTORY: Substantial and includes COPD, on home O2, atrial fibrillation, chronic kidney disease stage III, GERD, hyperlipidemia, spinal stenosis, hypothyroidism, chronic anemia, right-sided heart failure, depression, anxiety, hypothyroidism. PAST SURGICAL HISTORY: Includes spinal fusion below C2, appendectomy as a child, cholecystectomy, fracture of the wrist with repair, shoulder surgery, total hip replacement on the right, left lower extremity surgery of the ankle. ALLERGIES: ADHESIVES, LATEX, MORPHINE. MEDICATIONS AT PRESENT: Include albuterol 2 puffs via inhaler q. 6 hours, Zyloprim 300 mg p.o. daily, Lipitor 20 mg p.o. daily, Bumex 1 mg p.o. b.i.d., vitamin D 2000 International Units p.o. daily, Neurontin 300 mg p.o. t.i.d., Lidoderm patch 1 patch transdermally q.a.m., Cozaar 50 mg p.o. daily, Toprol-XL 50 mg p.o. daily, multivitamin 1 tablet p.o. daily, Klor-Con 20 mEq p.o. b.i.d., prednisone 10 mg p.o. daily, Rythmol 150 mg p.o. t.i.d., Zantac 150 mg p.o. b.i.d., Daliresp tablet 500 mcg p.o. daily, Requip 5 mg p.o. daily, Zoloft 25 mg p.o. daily, Feosol 325 mg p.o. daily, Protonix 40 mg p.o. q.a.m., Dilaudid 0.5 mg IV q. 4 p.r.n. pain, Synthroid 88 mcg p.o. daily, Augmentin 875 mg p.o. b.i.d., albuterol 1.25 mg via nebulizer q.i.d. p.r.n., Tessalon Perles 100 mg p.o. t.i.d. p.r.n. cough, Ultram 100 mg p.o. q. 6 p.r.n. pain, Zofran 4 mg IV q. 6 p.r.n. nausea, Tylenol 650 mg p.o. q. 4 p.r.n. pain or fever. SOCIAL HISTORY: She is . She has 1 child, lives with her daughter. Has an extensive tobacco history, quit smoking in 2009 with a [id number] history of smoking. She does not use any alcohol and she denies any illicit drug use. FAMILY HISTORY: Negative for GI malignancy or inflammatory bowel disease. REVIEW OF SYSTEMS: Negative x12 system review other than pertinent positives listed in the HPI. PHYSICAL EXAMINATION: VITAL SIGNS: Include a temp 36.8, pulse 81, respirations 22, blood pressure 104/66, pulse ox 99% on 4 liters via nasal cannula. GENERAL: She is awake, cooperative, obese, chronic ill appearing, no acute distress. HEAD: Normocephalic, atraumatic. EYES: Pupils equal and round. Extraocular muscles are intact. ENT: External evaluation of ears and nose is normal. Oropharynx is clear. NECK: Soft, supple. CHEST: Clear to auscultation in the anterior lung valdez, decreased breath sounds bilateral bases. CARDIOVASCULAR: Regular rate and rhythm. ABDOMEN: Soft. Tender in bilateral upper quadrants. Nondistended. There are positive bowel sounds. There is no hepatosplenomegaly or stigmata of chronic liver disease. EXTREMITIES: Left lower extremity with surgical incisional scar, right lower extremity with hematoma at the level of the ankle. SKIN: Noted pallor. RADIOGRAPHIC STUDIES AND LABORATORY STUDIES: Reviewed in the HPI. IMPRESSION: This is a 67-year-old female with chronic anemia of unknown etiology, who does have rectal bleeding. PLAN: At the present time, the patient has no interest in undergoing a colonoscopy. She states that she has been anemic for many years and does not want to undergo invasive testing at this time. An alternative given to the patient would be for her to undergo a CT scan of the abdomen and pelvis with p.o. and IV contrast which will give a much better look in regard to intraluminal pathology and as to the source of her bleeding other possibilities include internal hemorrhoids, an anal fissure, diverticular bleed or an AVM. I would recommend continuing supportive care. I will follow her clinical course. She could also follow up with us as an outpatient if she decides that she would like to undergo invasive testing or have further screening for colorectal cancer. I will follow her clinical course and make further recommendations as needed. Once again, thanks for allowing me to participate in the care of this patient. If you have any further questions, please do not hesitate in contacting me. Addendum: I was contacted by the patient's nurse, and the patient had a change in her decision following a discussion with her daughter, and would like to undergo a colonoscopy tomorrow for further evaluation. Therefore, I will order a Miralax bowel prep and she will undergo colonoscopy in the AM. QUANG
--- NOTE | 2017-08-09 14:54 | Surgery Consultation ---
Consultation Date of Consultation: Aug 09, 2017. Attending Physician: Jai Fonseca MD Reason for Consultation: Right Lower extremity Hematoma/Possible cellulitis History of Present Illness Eneida is a 67 year-old obese female with significant past medical history of COPD requiring 4 liters of oxygen at home, chronic back pain, atrial fibrillation without anticoagulation, hypertension, hypothyroidism, spinal stenosis, chronic anemia, chronic kidney disease who presented to emergency department with complaint of rectal bleeding x 3 days. Her hemoglobin was 8.2 in the emergency department and then 7.7 on recheck. Last hemoglobin 8.8. Family present in room which gave most of history as patient is sleeping with BiPAP, easily aroused however. Family states she fell down three stairs two weeks ago and has had swelling of the right lower leg since with right lower extremity pain and back pain. States the area of swelling on the right lower leg has been the same size since the fall. Denies of any drainage or open wound. Had an ultrasound at PCP office for DVT two days ago which was normal. Noticed some redness of the skin surrounding the area of swelling. Patient does not give much of a history but easily aroused. The emergency room work-up showed leukocytosis of 12.34K. She had a CT scan of the abdomen and pelvis without PO or IV contrast in the emergency room which showed some diverticulosis however no evidence of diverticulitis or acute intra-abdominal pathology. Our services were consulted for the right lower extremity hematoma and possible cellulitis. She was started on IV fluids, and PO Augmentin for possible infection. She takes 81 mg of aspirin daily. Has not been on blood thinners for years (History of Coumadin ) for her atrial fibrillation. Past Medical/Surgical History Past Medical History: (1) Abdominal pain (2) Asthma (3) CHF (congestive heart failure) (4) Chronic respiratory failure (5) CKD (chronic kidney disease), stage IV (6) COPD (chronic obstructive pulmonary disease) (7) Depression (8) Dyslipidemia (9) GERD (gastroesophageal reflux disease) (10) HTN (hypertension) (11) EVONNE (iron deficiency anemia) (12) Lumbar spinal stenosis (13) Morbid obesity (14) Myocardial infarction (15) Obesity hypoventilation syndrome (16) Palpitation (17) Paroxysmal a-fib (18) Respiratory failure, [id number] (19) Right hip pain Past Surgical History: (1) History of appendectomy (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 (4) Hx of cholecystectomy (5) S/P cervical spinal fusion (6) S/P wrist surgery Family History Diabetes mellitus MOTHER FH: CAD (coronary artery disease) MOTHER SISTER Social History Smoking Status: Former Smoker Drug Use: none Marital Status: single Housing Status: lives with family Occupation Status: retired Allergies Coded Allergies: Adhesives (Verified Allergy, Severe, RED RASH, 07/27/17) Latex1 -Allergic Contact Dermititis (Verified Adverse Reaction, Mild, TAPE -SORE, 07/27/17) Morphine (Verified Adverse Reaction, Mild, DELUSIONS, 07/27/17) Home Medications Scheduled Albuterol Hfa (Ventolin Hfa), 2-4 PUFFS INH Q6H Allopurinol (Zyloprim), 300 MG PO DAILY Aspirin (Aspirin Ec), 81 MG PO DAILY Atorvastatin (Lipitor), 20 MG PO DAILY Bumetanide (Bumex), 1 TAB PO BID Cholecalciferol (Vitamin D3), 2,000 INTER.UNIT PO DAILY Ferrous Sulfate (Ferrous Sulfate), 325 MG PO DAILY Fluticasone Furoate-Vilanterol (Breo Ellipta 200-25 Mcg/INH), 1 PUFF INH DAILY Fluticasone Furoate-Vilanterol (Breo Ellipta 200-25 Mcg/INH), Unknown Dose INH DAILY Gabapentin (Neurontin), 300 MG PO TID Levalbuterol Hcl (Levalbuterol Hcl), 1.25 MG INH QID Levothyroxine Sodium (Synthroid), 88 MCG PO DAILY Lidocaine (Lidocaine), 1 PATCH TD QAM Losartan Potassium (Cozaar), 50 MG PO DAILY Metolazone (Metolazone), 2.5 MG PO UD Metoprolol Succinate (Toprol Xl), 50 MG PO DAILY Multivitamins/Minerals (Certavite/Antioxidants), 1 TAB PO DAILY Omeprazole (Prilosec), 1 CAP PO DAILY Potassium Ext Rel (Klor-Con), 20 MEQ PO BID Prednisone (Prednisone), 10 MG PO DAILY Propafenone Hcl (Propafenone Hcl), 150 MG PO TID Ranitidine (Zantac), 150 MG PO BID Roflumilast (Daliresp), 1 TAB PO DAILY Ropinirole (Requip), 5 MG PO DAILY Sertraline (Zoloft), 25 MG PO DAILY Umeclidinium [place] (Incruse Ellipta), 1 PUFF INH DAILY Scheduled PRN Acetaminophen (Tylenol), 650 MG PO Q4H PRN for Pain or Fever Benzonatate (Tessalon Perles), 100 MG PO TID PRN for Cough Tramadol HCl (Tramadol HCl), 100 MG PO Q6 PRN for Pain Current Inpatient Medications Current Inpatient Medications Medications (Trade) Dose Ordered Sig/Rupinder Route Start Time Stop Time Status Last Admin Dose Admin Ioversol (Optiray 320) 100 ml UD PRN IV 08/09/17 06:00 08/13/17 05:59 Acetaminophen (Tylenol Tab) 650 mg Q4H PRN PO 08/09/17 06:30 09/08/17 06:29 Ondansetron HCl (Zofran Inj) 4 mg Q6H PRN IV 08/09/17 06:30 09/08/17 06:29 08/09/17 11:16 4 MG Albuterol (Ventolin Hfa Inhaler) 2 puffs Q6H INH 08/09/17 12:00 09/08/17 11:59 08/09/17 12:19 2 PUFFS Allopurinol (Zyloprim Tab) 300 mg DAILY PO 08/09/17 09:00 09/08/17 08:59 08/09/17 09:30 300 MG Atorvastatin Calcium (Lipitor Tab) 20 mg DAILY PO 08/09/17 09:00 09/08/17 08:59 08/09/17 09:29 20 MG Benzonatate (Tessalon Perles Cap) 100 mg TID PRN PO 08/09/17 06:45 09/08/17 06:44 Bumetanide (Bumex Tab) 1 mg BID PO 08/09/17 09:00 09/08/17 08:59 08/09/17 09:29 1 MG Cholecalciferol (Vitamin D Tab) 2,000 inter.unit DAILY PO 08/09/17 09:00 09/08/17 08:59 08/09/17 09:31 2,000 INTER.UNIT Gabapentin (Neurontin Cap) 300 mg TID PO 08/09/17 09:00 09/08/17 08:59 08/09/17 09:30 300 MG Levalbuterol (Xopenex 1.25MG/ 3ML Neb) 1.25 mg QIDR INH 08/09/17 08:00 09/08/17 07:59 08/09/17 07:55 1.25 MG Levothyroxine Sodium (Synthroid Tab) 88 mcg DAILYBB PO 08/09/17 08:15 09/08/17 08:14 08/09/17 09:29 88 MCG Lidocaine (Lidoderm Patch 5%) 1 patch QAM TD 08/09/17 09:00 09/08/17 08:59 08/09/17 09:31 1 PATCH Losartan Potassium (coZAAR TAB) 50 mg DAILY PO 08/09/17 09:00 09/08/17 08:59 08/09/17 09:31 50 MG Metoprolol Succinate (Toprol Xl Tab) 50 mg DAILY PO 08/09/17 09:00 09/08/17 08:59 08/09/17 09:30 50 MG Multivitamins/ Minerals (Multivitamin W/ Minerals Tab) 1 tab DAILY PO 08/09/17 09:00 09/08/17 08:59 08/09/17 09:29 1 TAB Potassium Chloride (Klor-Con Tab) 20 meq BID17 PO 08/09/17 09:00 09/08/17 08:59 08/09/17 09:29 20 MEQ Prednisone (PredniSONE TAB) 10 mg DAILY PO 08/09/17 09:00 09/08/17 08:59 08/09/17 09:31 10 MG Propafenone HCl (Rythmol Tab) 150 mg TID PO 08/09/17 09:00 09/08/17 08:59 08/09/17 09:30 150 MG Ranitidine HCl (zANTac TAB) 150 mg BID PO 08/09/17 09:00 09/08/17 08:59 08/09/17 09:30 150 MG Roflumilast (Daliresp Tab) 500 mcg DAILY PO 08/09/17 09:00 09/08/17 08:59 08/09/17 09:29 500 MCG Ropinirole HCl (Requip Tab) 5 mg DAILY PO 08/09/17 09:00 2/28/18 08:59 08/09/17 09:30 5 MG Sertraline HCl (Zoloft Tab) 25 mg DAILY PO 08/09/17 09:00 09/08/17 08:59 08/09/17 09:31 25 MG Tramadol HCl (Ultram Tab) 100 mg Q6 PRN PO 08/09/17 06:45 09/08/17 06:44 Ferrous Sulfate (Feosol Tab) 325 mg DAILY PO 08/09/17 09:00 09/08/17 08:59 08/09/17 09:30 325 MG Miscellaneous Information (Order Awaiting Action) 1 ea QS N/A 08/09/17 08:00 09/08/17 07:59 Pantoprazole Sodium (Protonix Tab) 40 mg QAM PO 08/09/17 09:00 09/08/17 08:59 08/09/17 09:31 40 MG Miscellaneous Information (Order Awaiting Action) 1 ea QS N/A 08/09/17 08:00 09/08/17 07:59 Miscellaneous (Remove Lidoderm Patch) 1 ea DAILY@21 N/A 08/09/17 21:00 09/08/17 20:59 Amoxicillin/ Clavulanate Potassium (Augmentin Tab) 875 mg BIDM PO 08/09/17 08:15 08/19/17 08:14 08/09/17 09:29 875 MG Sodium Chloride 1,000 ml @ 75 mls/hr [id number] IV 08/09/17 07:45 08/10/17 10:24 08/09/17 09:17 75 MLS/HR Hydromorphone HCl (Dilaudid Inj) 0.5 mg Q4H PRN IV 08/09/17 08:30 08/23/17 08:29 08/09/17 09:17 0.5 MG Review of Systems Constitutional: No fever, No chills, No sweats Respiratory: + problem reported (chronic COPD requiring 4 liters of O2 at home) Abdomen: + pain, + nausea Hematologic / Lymphatic: + problem reported (swollen lump on right lower leg, right lower leg pain and swelling) Physical Exam Date Time Temp Pulse Resp B/P (MAP) Pulse Ox O2 Delivery O2 Flow Rate FiO2 08/09/17 14:01 35.8 79 16 136/75 (95) 96 BiPAP 08/09/17 13:10 36.7 83 18 127/69 100 4.0 08/09/17 12:49 36.6 86 18 113/49 98 4.0 08/09/17 11:22 36.8 81 22 104/66 (79) 99 Nasal Cannula 4.0 08/09/17 07:55 78 20 99 Nasal Cannula 4.0 08/09/17 07:34 36.9 81 22 128/76 Nasal Cannula 4.0 08/09/17 07:31 100 Nasal Cannula 4.0 08/09/17 07:09 36.9 85 16 150/68 99 08/09/17 06:31 151/58 08/09/17 06:30 82 16 99 4.0 08/09/17 06:01 152/60 08/09/17 06:00 83 24 98 08/09/17 05:55 85 20 158/56 98 4.0 08/09/17 05:32 80 20 99 08/09/17 05:09 83 08/09/17 05:08 36.9 84 26 149/48 99 Room Air 08/09/17 05:08 99 Nasal Cannula 4.0 08/09/17 05:07 149/48 General Appearance: no apparent distress, + obese, + pertinent finding ( sleeping with BiPAP on encounter, easily aroused) Head: normocephalic, atraumatic Eyes: sclerae normal ENT: hearing grossly normal Neck: trachea midline Respiratory/Chest: + decreased breath sounds, + crackles Cardiovascular: regular rate, rhythm, no murmur Abdomen/GI: non tender, soft, no organomegaly, no pulsatile mass Extremities/Musculoskelatal: + pertinent finding (right lower extremity: area of fluctuance of the right lower calf with surrounding erythema, slight warmth to touch, no active drainage, no induration. Slight pedal and lower calf edema , nonpitting.) Skin: warm/dry, no rash, + pertinent finding (erythema at the right lower calf and superior to right ankle) Laboratory Results Last 24 Hours Test 08/09/17 05:00 08/09/17 06:54 White Blood Count 12.34 K/uL Red Blood Count 2.74 M/uL Hemoglobin 8.2 g/dL 7.7 g/dL Hematocrit 27.1 % 25.4 % Mean Corpuscular Volume 98.9 fL Mean Corpuscular Hemoglobin 29.9 pg Mean Corpuscular Hemoglobin Concent 30.3 g/dl Platelet Count 238 K/uL Mean Platelet Volume 8.9 fL Neutrophils (%) (Auto) 61.1 % Lymphocytes (%) (Auto) 24.1 % Monocytes (%) (Auto) 7.0 % Eosinophils (%) (Auto) 6.2 % Basophils (%) (Auto) 0.3 % Neutrophils # (Auto) 7.54 K/uL Lymphocytes # (Auto) 2.98 K/uL Monocytes # (Auto) 0.86 K/uL Eosinophils # (Auto) 0.76 K/uL Basophils # (Auto) 0.04 K/uL RDW Standard Deviation 59.7 fL RDW Coefficient of Variation 16.6 % Immature Granulocyte % (Auto) 1.3 % Immature Granulocyte # (Auto) 0.16 K/uL Polychromasia 1+ Stomatocytes 1+ Prothrombin Time 11.1 SECONDS Prothromb Time International Ratio 1.1 Activated Partial Thromboplast Time 24.7 SECONDS Partial Thromboplastin Ratio 1.0 Sodium Level 138 mmol/L Potassium Level 4.6 mmol/L Chloride Level 97 mmol/L Carbon Dioxide Level 36 mmol/L Anion Gap 5.0 mmol/L Blood Urea Nitrogen 40 mg/dl Creatinine 2.14 mg/dl Est Creatinine Clear Calc Drug Dose 31.0 ml/min Estimated GFR () 26.5 Estimated GFR (Non- 22.9 BUN/Creatinine Ratio 18.8 Random Glucose 113 mg/dl Calcium Level 9.7 mg/dl Total Bilirubin 0.3 mg/dl Direct Bilirubin < 0.1 mg/dl Aspartate Amino Transf (AST/SGOT) 11 U/L Alanine Aminotransferase (ALT/SGPT) 15 U/L Alkaline Phosphatase 86 U/L Total Protein 7.4 gm/dl Albumin 2.8 gm/dl Lipase 125 U/L Assessment & Plan 67 year-old female with multiple comorbidities who presented to emergency department with complaint of rectal bleeding for 3 days. s/p fall 2 weeks ago with RLE Hematoma with mild cellulitis. Chronic anemia with hemoglobin 7.7 in the emergency room. Admitted for observation and further evaluation of blood loss. Receiving 1 unit of PRBCs at this time. RLE with raised hematoma present with mild surrounding erythema suggesting cellulitis. No induration to suggest overt abscess. Mild surrounding pedal and lower calf edema, non-pitting. CT scan showing mild diverticulosis however no acute intra-abdominal pathology ( Limited CT scan without contrast). Patient originally refused colonoscopy but is now agreeable. Planning for colonoscopy tomorrow (per nursing staff) Plan: Given patient's acute blood loss anemia, would continue conservative treatment for the RLE hematoma at this time (elevation/ice/pain management). Continue oral antibiotics for mild cellulitis. The hematoma may need drained given size and location, however, given patient's acute blood loss anemia, further management of hematoma can be secondary to blood loss work-up. Would continue current medical management Will follow Discussed patient with Dr. Michelle who will evaluate patient later today.
--- NOTE | 2017-08-09 16:26 | DIAGNOSTIC IMAGING REPORT ---
RIGHT SHOULDER CT CT DOSE: 1083.86 mGy.cm HISTORY: Right shoulder pain. r/o fracture TECHNIQUE: Multiaxial CT images of the right shoulder were performed and reformatted in the sagittal and coronal plane without the use of contrast. A dose lowering technique was utilized adhering to the principles of ALARA. COMPARISON: Right shoulder 07/27/2017. FINDINGS: There is again noted a right total shoulder arthroplasty. There is mild motion artifact and metallic artifact within the shoulder. This results in difficult evaluation of the humeral neck. Best seen on coronal image 19 of 69 there is suggestion of a subtle cortical lucency at the humeral neck. This corresponds to the x-ray abnormality and could represent a nondisplaced fracture. No dislocation. The right clavicle is intact. Moderate AC joint arthrosis. No fractures identified within the scapula. Old, healed right-sided rib fractures. Chronic interstitial thickening seen within the right lung. IMPRESSION: There is mild motion artifact and metallic artifact within the shoulder resulting in difficult evaluation of the humeral neck. However, there is suggestion of a subtle cortical lucency at the humeral neck. This corresponds to the x-ray abnormality and could represent a nondisplaced fracture. Electronically signed by: Henry Bourne M.D. 08/09/2017 4:24 PM Dictated Date/Time: 08/09/2017 4:20 PM
[2017-08-09 17:38] LABS: HEMATOCRIT 28.4 % (37-47); HEMOGLOBIN 8.7 g/dL (12.0-16.0)
[2017-08-09] MEDS ORDERED: POLYETHYLENE (MIRALAX) 17 GM PACK PO ONE ×2 (18:00→21:00)
[2017-08-09] MEDS ORDERED: NURSING VERBAL MED ORDER ONE (19:15)
[2017-08-09] MEDS ORDERED: LIDOCAINE HCL 1% 20 ML VIAL INFIL SCH (19:30)
--- NOTE | 2017-08-09 20:25 | Progress Note ---
Medicine Progress Note Date & Time of Visit: Aug 09, 2017 at 20:10. Subjective seen sleeping but easily rousable somewhat drowsy but answers all questions appropriately no recurrence of rectal bleed so far reports pain on the right lower leg since the fall denies chest pain, dyspnea, palpitations, nausea/vomiting no other symptoms Objective Last 8 Hrs Date Time Temp Pulse Resp B/P (MAP) Pulse Ox O2 Delivery O2 Flow Rate FiO2 08/09/17 19:44 75 20 95 BiPAP/CPAP 4.0 08/09/17 19:24 36.5 72 22 136/76 (96) 92 BiPAP 08/09/17 16:00 Nasal Cannula 4.0 CPAP 08/09/17 15:47 36.4 78 22 138/74 (95) 97 BiPAP 08/09/17 15:40 77 20 97 BiPAP/CPAP 4.0 08/09/17 15:35 37.6 74 16 144/76 98 4.0 08/09/17 14:45 36.7 81 16 134/66 94 4.0 08/09/17 14:01 35.8 79 16 136/75 (95) 96 BiPAP 08/09/17 13:10 36.7 83 18 127/69 100 4.0 08/09/17 12:49 36.6 86 18 113/49 98 4.0 Physical Exam: General- oriented x 3, not in distress, speaks in sentences with no effort Head- atraumatic Eyes- PERRL, EOMI, anicteric ENT- oropharynx clear Neck- supple, no JVD, no adenopathy, no thyromegaly Lungs- mild wheeze bilateral bases, no rales Heart- regular rhythm; no murmur, normal rate Abdomen- normal bowel sounds, soft, nontender Extremities- no pretibial edema, no calf tenderness; peripheral pulses intact (+) hematoma on the right lower leg with erythema/warmth/tenderness Neuro- alert, oriented x 3; PERRL, EOMI; no facial palsy; no dysarthria; motor 5 /5 bilaterally; sensation 100% Skin- warm & dry Laboratory Results: Last 24 Hours Test 08/09/17 05:00 08/09/17 06:54 08/09/17 17:28 White Blood Count 12.34 K/uL Red Blood Count 2.74 M/uL Hemoglobin 8.2 g/dL 7.7 g/dL 8.7 g/dL Hematocrit 27.1 % 25.4 % 28.4 % Mean Corpuscular Volume 98.9 fL Mean Corpuscular Hemoglobin 29.9 pg Mean Corpuscular Hemoglobin Concent 30.3 g/dl Platelet Count 238 K/uL Mean Platelet Volume 8.9 fL Neutrophils (%) (Auto) 61.1 % Lymphocytes (%) (Auto) 24.1 % Monocytes (%) (Auto) 7.0 % Eosinophils (%) (Auto) 6.2 % Basophils (%) (Auto) 0.3 % Neutrophils # (Auto) 7.54 K/uL Lymphocytes # (Auto) 2.98 K/uL Monocytes # (Auto) 0.86 K/uL Eosinophils # (Auto) 0.76 K/uL Basophils # (Auto) 0.04 K/uL RDW Standard Deviation 59.7 fL RDW Coefficient of Variation 16.6 % Immature Granulocyte % (Auto) 1.3 % Immature Granulocyte # (Auto) 0.16 K/uL Polychromasia 1+ Stomatocytes 1+ Prothrombin Time 11.1 SECONDS Prothromb Time International Ratio 1.1 Activated Partial Thromboplast Time 24.7 SECONDS Partial Thromboplastin Ratio 1.0 Sodium Level 138 mmol/L Potassium Level 4.6 mmol/L Chloride Level 97 mmol/L Carbon Dioxide Level 36 mmol/L Anion Gap 5.0 mmol/L Blood Urea Nitrogen 40 mg/dl Creatinine 2.14 mg/dl Est Creatinine Clear Calc Drug Dose 31.0 ml/min Estimated GFR () 26.5 Estimated GFR (Non- 22.9 BUN/Creatinine Ratio 18.8 Random Glucose 113 mg/dl Calcium Level 9.7 mg/dl Total Bilirubin 0.3 mg/dl Direct Bilirubin < 0.1 mg/dl Aspartate Amino Transf (AST/SGOT) 11 U/L Alanine Aminotransferase (ALT/SGPT) 15 U/L Alkaline Phosphatase 86 U/L Total Protein 7.4 gm/dl Albumin 2.8 gm/dl Lipase 125 U/L Assessment & Plan BRIGHT RED BLOOD PER RECTUM - seems to be intermittent, could be secondary to hemorrhoids, rule out diverticular bleed - GI consulted for possible Colonoscopy - H&H decreased to 7.7 1 unit PRBC given Hg 8.7 - monitor hold ASA RIGHT LEG HEMATOMA - s/p fall 3 weeks ago - possible component of Cellulitis? Augmentin ordered - GI consulted plan for I&D tonight ABDOMINAL PAIN, B/L - s/p Fall - CT abdomen: 1. Limited diverticulosis without evidence of diverticulitis. No bowel obstruction or convincing evidence of acute intra-abdominal pathology allowing for noncontrast technique. 2. Bibasilar peribronchovascular consolidation with minimal debris in the airways and bronchial wall thickening could relate to chronic aspiration. These findings are unchanged since the prior exam. 3. Borderline enlarged right external iliac lymph node, slightly increased in size from prior. This may be reactive. 4. Chronic additional findings as above. -- monitor ACUTE RENAL FAILURE ON CKD 3 -- likely pre renal -- IV fluids ordered Severe chronic obstructive pulmonary disease without any exacerbations - on chronic oxygen also uses CPAP while sleeping, Nebs round the clock at home History atrial fibrillation - off coumadin Depression and anxiety. Continue with current medications. Hypothyroidism. Continue with replacement. Deep venous thrombosis prophylaxis - hold off anticoagulation due to hematoma, R Leg SCDs - monitor Code status. She will be a full code. Disposition lives at home will need PT/OT, may need Rehab/SNF updated daughter over the phone, discussed case and plan of care at length she is comfortable and agreeable with plan of care Current Inpatient Medications: Current Inpatient Medications Medications (Trade) Dose Ordered Sig/Rupinder Route Start Time Stop Time Status Last Admin Dose Admin Ioversol (Optiray 320) 100 ml UD PRN IV 08/09/17 06:00 08/13/17 05:59 Acetaminophen (Tylenol Tab) 650 mg Q4H PRN PO 08/09/17 06:30 09/08/17 06:29 Ondansetron HCl (Zofran Inj) 4 mg Q6H PRN IV 08/09/17 06:30 09/08/17 06:29 08/09/17 11:16 4 MG Albuterol (Ventolin Hfa Inhaler) 2 puffs Q6H INH 08/09/17 12:00 09/08/17 11:59 08/09/17 12:19 2 PUFFS Allopurinol (Zyloprim Tab) 300 mg DAILY PO 08/09/17 09:00 09/08/17 08:59 08/09/17 09:30 300 MG Atorvastatin Calcium (Lipitor Tab) 20 mg DAILY PO 08/09/17 09:00 09/08/17 08:59 08/09/17 09:29 20 MG Benzonatate (Tessalon Perles Cap) 100 mg TID PRN PO 08/09/17 06:45 09/08/17 06:44 Bumetanide (Bumex Tab) 1 mg BID PO 08/09/17 09:00 09/08/17 08:59 08/09/17 09:29 1 MG Cholecalciferol (Vitamin D Tab) 2,000 inter.unit DAILY PO 08/09/17 09:00 09/08/17 08:59 08/09/17 09:31 2,000 INTER.UNIT Gabapentin (Neurontin Cap) 300 mg TID PO 08/09/17 09:00 09/08/17 08:59 08/09/17 14:43 300 MG Levalbuterol (Xopenex 1.25MG/ 3ML Neb) 1.25 mg QIDR INH 08/09/17 08:00 09/08/17 07:59 08/09/17 19:43 1.25 MG Levothyroxine Sodium (Synthroid Tab) 88 mcg DAILYBB PO 08/09/17 08:15 09/08/17 08:14 08/09/17 09:29 88 MCG Lidocaine (Lidoderm Patch 5%) 1 patch QAM TD 08/09/17 09:00 09/08/17 08:59 08/09/17 09:31 1 PATCH Losartan Potassium (coZAAR TAB) 50 mg DAILY PO 08/09/17 09:00 09/08/17 08:59 08/09/17 09:31 50 MG Metoprolol Succinate (Toprol Xl Tab) 50 mg DAILY PO 08/09/17 09:00 09/08/17 08:59 08/09/17 09:30 50 MG Multivitamins/ Minerals (Multivitamin W/ Minerals Tab) 1 tab DAILY PO 08/09/17 09:00 09/08/17 08:59 08/09/17 09:29 1 TAB Potassium Chloride (Klor-Con Tab) 20 meq BID17 PO 08/09/17 09:00 09/08/17 08:59 08/09/17 17:16 20 MEQ Prednisone (PredniSONE TAB) 10 mg DAILY PO 08/09/17 09:00 09/08/17 08:59 08/09/17 09:31 10 MG Propafenone HCl (Rythmol Tab) 150 mg TID PO 08/09/17 09:00 09/08/17 08:59 08/09/17 14:43 150 MG Ranitidine HCl (zANTac TAB) 150 mg BID PO 08/09/17 09:00 09/08/17 08:59 08/09/17 09:30 150 MG Roflumilast (Daliresp Tab) 500 mcg DAILY PO 08/09/17 09:00 09/08/17 08:59 08/09/17 09:29 500 MCG Ropinirole HCl (Requip Tab) 5 mg DAILY PO 08/09/17 09:00 09/08/17 08:59 08/09/17 09:30 5 MG Sertraline HCl (Zoloft Tab) 25 mg DAILY PO 08/09/17 09:00 09/08/17 08:59 08/09/17 09:31 25 MG Tramadol HCl (Ultram Tab) 100 mg Q6 PRN PO 08/09/17 06:45 09/08/17 06:44 Ferrous Sulfate (Feosol Tab) 325 mg DAILY PO 08/09/17 09:00 09/08/17 08:59 08/09/17 09:30 325 MG Miscellaneous Information (Order Awaiting Action) 1 ea QS N/A 08/09/17 08:00 09/08/17 07:59 Pantoprazole Sodium (Protonix Tab) 40 mg QAM PO 08/09/17 09:00 09/08/17 08:59 08/09/17 09:31 40 MG Miscellaneous Information (Order Awaiting Action) 1 ea QS N/A 08/09/17 08:00 09/08/17 07:59 Miscellaneous (Remove Lidoderm Patch) 1 ea DAILY@21 N/A 08/09/17 21:00 09/08/17 20:59 Amoxicillin/ Clavulanate Potassium (Augmentin Tab) 875 mg BIDM PO 08/09/17 08:15 08/19/17 08:14 08/09/17 17:16 875 MG Sodium Chloride 1,000 ml @ 75 mls/hr [id number] IV 08/09/17 07:45 08/10/17 10:24 08/09/17 09:17 75 MLS/HR Hydromorphone HCl (Dilaudid Inj) 0.5 mg Q4H PRN IV 08/09/17 08:30 08/23/17 08:29 08/09/17 16:25 0.5 MG Polyethylene (Miralax Powder Packet) 119 gm 2100 ONCE PO 08/09/17 21:00 08/09/17 21:01 Bisacodyl (Dulcolax Tab) 20 mg 1615 ONCE PO 08/10/17 16:15 08/10/17 16:16 Lidocaine HCl (Xylocaine 1% Inj (Local)) 20 ml 1930 INFIL 08/09/17 19:30 08/09/17 22:00
--- NOTE | 2017-08-09 20:26 | Surgery Progress Note ---
Surgery Progress Note Date of Service Aug 09, 2017. Subjective recheck pt, pt's daughter said the right lower leg swelling site is worse, some redness, tenderness, size 4x5cm, at right lower leg, most like abscess, Objective Vital Signs: Date Time Temp Pulse Resp B/P (MAP) Pulse Ox O2 Delivery O2 Flow Rate FiO2 08/09/17 19:44 75 20 95 BiPAP/CPAP 4.0 08/09/17 19:24 36.5 72 22 136/76 (96) 92 BiPAP 08/09/17 16:00 Nasal Cannula 4.0 CPAP 08/09/17 15:47 36.4 78 22 138/74 (95) 97 BiPAP 08/09/17 15:40 77 20 97 BiPAP/CPAP 4.0 08/09/17 15:35 37.6 74 16 144/76 98 4.0 08/09/17 14:45 36.7 81 16 134/66 94 4.0 08/09/17 14:01 35.8 79 16 136/75 (95) 96 BiPAP 08/09/17 13:10 36.7 83 18 127/69 100 4.0 08/09/17 12:49 36.6 86 18 113/49 98 4.0 08/09/17 12:00 Nasal Cannula 4.0 08/09/17 11:22 36.8 81 22 104/66 (79) 99 Nasal Cannula 4.0 08/09/17 07:55 78 20 99 Nasal Cannula 4.0 08/09/17 07:34 36.9 81 22 128/76 Nasal Cannula 4.0 08/09/17 07:31 100 Nasal Cannula 4.0 08/09/17 07:09 36.9 85 16 150/68 99 08/09/17 06:31 151/58 08/09/17 06:30 82 16 99 4.0 08/09/17 06:01 152/60 08/09/17 06:00 83 24 98 08/09/17 05:55 85 20 158/56 98 4.0 08/09/17 05:32 80 20 99 08/09/17 05:09 83 08/09/17 05:08 36.9 84 26 149/48 99 Room Air 08/09/17 05:08 99 Nasal Cannula 4.0 08/09/17 05:07 149/48 General Appearance: WD/WN, no apparent distress Head: normocephalic Neck: supple, no JVD Respiratory/Chest: chest non-tender, lungs clear Cardiovascular: regular rate, rhythm, no edema, no gallop, no JVD, no murmur Abdomen: normal bowel sounds, non tender, non distended Extremities: normal range of motion, non-tender, normal inspection Laboratory Results: Results Past 24 Hours Test 08/09/17 05:00 08/09/17 06:54 08/09/17 17:28 Range/Units White Blood Count 12.34 4.8-10.8 K/uL Red Blood Count 2.74 4.2-5.4 M/uL Hemoglobin 8.2 7.7 8.7 12.0-16.0 g/dL Hematocrit 27.1 25.4 28.4 37-47 % Mean Corpuscular Volume 98.9 80-100 fL Mean Corpuscular Hemoglobin 29.9 25-34 pg Mean Corpuscular Hemoglobin Concent 30.3 32-36 g/dl Platelet Count 238 130-400 K/uL Mean Platelet Volume 8.9 7.4-10.4 fL Neutrophils (%) (Auto) 61.1 % Lymphocytes (%) (Auto) 24.1 % Monocytes (%) (Auto) 7.0 % Eosinophils (%) (Auto) 6.2 % Basophils (%) (Auto) 0.3 % Neutrophils # (Auto) 7.54 1.4-6.5 K/uL Lymphocytes # (Auto) 2.98 1.2-3.4 K/uL Monocytes # (Auto) 0.86 0.11-0.59 K/uL Eosinophils # (Auto) 0.76 0-0.5 K/uL Basophils # (Auto) 0.04 0-0.2 K/uL RDW Standard Deviation 59.7 36.4-46.3 fL RDW Coefficient of Variation 16.6 11.5-14.5 % Immature Granulocyte % (Auto) 1.3 % Immature Granulocyte # (Auto) 0.16 0.00-0.02 K/uL Polychromasia 1+ Stomatocytes 1+ Prothrombin Time 11.1 9.0-12.0 SECONDS Prothromb Time International Ratio 1.1 0.9-1.1 Activated Partial Thromboplast Time 24.7 21.0-31.0 SECONDS Partial Thromboplastin Ratio 1.0 Sodium Level 138 136-145 mmol/L Potassium Level 4.6 3.5-5.1 mmol/L Chloride Level 97 98-107 mmol/L Carbon Dioxide Level 36 21-32 mmol/L Anion Gap 5.0 3-11 mmol/L Blood Urea Nitrogen 40 7-18 mg/dl Creatinine 2.14 0.60-1.20 mg/dl Est Creatinine Clear Calc Drug Dose 31.0 ml/min Estimated GFR () 26.5 Estimated GFR (Non- 22.9 BUN/Creatinine Ratio 18.8 10-20 Random Glucose 113 70-99 mg/dl Calcium Level 9.7 8.5-10.1 mg/dl Total Bilirubin 0.3 0.2-1 mg/dl Direct Bilirubin < 0.1 0-0.2 mg/dl Aspartate Amino Transf (AST/SGOT) 11 15-37 U/L Alanine Aminotransferase (ALT/SGPT) 15 12-78 U/L Alkaline Phosphatase 86 45-117 U/L Total Protein 7.4 6.4-8.2 gm/dl Albumin 2.8 3.4-5.0 gm/dl Lipase 125 73-393 U/L Assessment & Plan base on new finding, most likely abscess at right lower leg, plan: I recommend to do I/D abscess at bedside, D/W benefits, risks and alternatives of the procedure, the risks- infection, bleeding, recurrecne, sepsis, pt and her daughter understood, they agree with the plan, she signed consent, I answered all questions,
--- NOTE | 2017-08-09 23:26 | OPERATIVE REPORT ---
DATE OF OPERATION: 08/09/2017 PREOPERATIVE DIAGNOSIS: Right lower leg abscess. POSTOPERATIVE DIAGNOSIS: Same. OPERATION: I&D right lower leg abscess. SURGEON: Elio Michelle MD. ANESTHESIA: Local. ESTIMATED BLOOD LOSS: About 1 mL FINDING: Hematoma with abscess on the right lower leg. COMPLICATIONS: None. INDICATIONS FOR THE PROCEDURE: This is a 67-year-old female who presented with 2-week history of injury to right lower leg causing a hematoma. Hematoma was getting worse, showing redness and tenderness, high suspicion for abscess. We decided to do I&D abscess on the right lower leg at bedside under local anesthesia. I did talk to the patient's daughter about the benefit and risk, alternate procedure. I indicated the risks may include but not limited such as bleeding, infection, recurrence of abscess. The patient's daughter understands. She signed informed consent and she agreed to proceed with the procedure. I answered all questions. DETAILS OF PROCEDURE: We did I&D abscess on the right lower leg at the patient's bedside. The patient's right lower leg was prepped and draped in routine sterile fashion. The patient had 3 x 4 cm abscess on the right lower leg. After timeout, I injected 1% lidocaine around the abscess. I made about a 3 cm incision. There was a hematoma with pus coming out, we did send it for wound culture. Hemostasis obtained on packing the wound. Then, we put the dressing on. The patient tolerated the procedure well. After procedure, I gave the patient and daughter postop care instructions. She understands. I attest to the content of the Intraoperative Record and any orders documented therein. Any exception s are noted below.
[2017-08-10] VITALS (12 sets, daily range): BP systolic 130–169; BP diastolic 54–81; PULSE 70–79; TEMP 36.5–37; O2SAT 7–100
[2017-08-10] MEDS: ALBUTEROL HFA 8 GM INHALER INH SCH ×5 (00:27→23:46)
[2017-08-10 00:58] LABS: HEMATOCRIT 26.3 % (37-47)
[2017-08-10] MEDS: HYDROmorphone INJ 0.5 MG/0.5 ML SYR IV PRN ×5 (01:08→22:06)
[2017-08-10] MEDS: SODIUM CHLORIDE 0.9% 1000ML 1,000 ML IV SCH (01:09)
[2017-08-10] MEDS: TRAMADOL HCL 50 MG TAB PO PRN ×2 (04:24→19:59)
[2017-08-10] MEDS: LEVOTHYROXINE 88 MCG TAB PO SCH (05:35)
--- NOTE | 2017-08-10 05:59 | EMERGENCY ROOM VISIT NOTE ---
History Report prepared by Warren: Alice Mendze Under the Supervision of: Dr. Mara Lam D.O. First contact with patient: 05:05 Chief Complaint: SHORTNESS OF BREATH Stated Complaint: SHORT OF BREATH History of Present Illness The patient is a 67 year old female who presents to the Emergency Room with complaints of persistent rectal bleeding that began a few days ago. The patient states that she has also been experiencing increased abdominal pain that radiates to her ribs, secondary to a fall previous to her last Emergency Department visit on 07/27/17. She notes that she has been having persistent shortness of breath, which has been progressively getting better after her previous Emergency Department visit, in which she was diagnosed with COPD with respiratory failure. This is the patient's 4th visit to this Emergency Department in the past month. Source of History: patient Onset: few days ago Position: other (rectum) Quality: other (rectal bleeding) Timing: other (persistent) Associated Symptoms: + SOB, + abdominal pain (that radiates to her ribs) Review of Systems See HPI for pertinent positives & negatives. A total of 10 systems reviewed and were otherwise negative. Past Medical & Surgical Medical Problems: (1) Abdominal pain (2) Asthma (3) Back pain (4) CHF (congestive heart failure) (5) Chronic respiratory failure (6) CKD (chronic kidney disease), stage IV (7) COPD (chronic obstructive pulmonary disease) (8) COPD (chronic obstructive pulmonary disease) (9) Depression (10) Dyslipidemia (11) GERD (gastroesophageal reflux disease) (12) HTN (hypertension) (13) EVONNE (iron deficiency anemia) (14) Lumbar spinal stenosis (15) Morbid obesity (16) Myocardial infarction (17) Obesity hypoventilation syndrome (18) Palpitation (19) Paroxysmal a-fib (20) Rectal bleeding (21) Respiratory failure, [id number] (22) Right hip pain Surgical Problems: (1) History of appendectomy (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 (4) Hx of cholecystectomy (5) S/P cervical spinal fusion (6) S/P wrist surgery Family History Diabetes mellitus MOTHER FH: CAD (coronary artery disease) MOTHER SISTER Social History Smoking Status: Former Smoker Alcohol Use: none Drug Use: none Marital Status: single Housing Status: lives with family Occupation Status: retired Current/Historical Medications Scheduled Albuterol Hfa (Ventolin Hfa), 2-4 PUFFS INH Q6H Allopurinol (Zyloprim), 300 MG PO DAILY Aspirin (Aspirin Ec), 81 MG PO DAILY Atorvastatin (Lipitor), 20 MG PO DAILY Bumetanide (Bumex), 1 TAB PO BID Cholecalciferol (Vitamin D3), 2,000 INTER.UNIT PO DAILY Ferrous Sulfate (Ferrous Sulfate), 325 MG PO DAILY Fluticasone Furoate-Vilanterol (Breo Ellipta 200-25 Mcg/INH), 1 PUFF INH DAILY Fluticasone Furoate-Vilanterol (Breo Ellipta 200-25 Mcg/INH), Unknown Dose INH DAILY Gabapentin (Neurontin), 300 MG PO TID Levalbuterol Hcl (Levalbuterol Hcl), 1.25 MG INH QID Levothyroxine Sodium (Synthroid), 88 MCG PO DAILY Lidocaine (Lidocaine), 1 PATCH TD QAM Losartan Potassium (Cozaar), 50 MG PO DAILY Metolazone (Metolazone), 2.5 MG PO UD Metoprolol Succinate (Toprol Xl), 50 MG PO DAILY Multivitamins/Minerals (Certavite/Antioxidants), 1 TAB PO DAILY Omeprazole (Prilosec), 1 CAP PO DAILY Potassium Ext Rel (Klor-Con), 20 MEQ PO BID Prednisone (Prednisone), 10 MG PO DAILY Propafenone Hcl (Propafenone Hcl), 150 MG PO TID Ranitidine (Zantac), 150 MG PO BID Roflumilast (Daliresp), 1 TAB PO DAILY Ropinirole (Requip), 5 MG PO DAILY Sertraline (Zoloft), 25 MG PO DAILY Umeclidinium West (Incruse Ellipta), 1 PUFF INH DAILY Scheduled PRN Acetaminophen (Tylenol), 650 MG PO Q4H PRN for Pain or Fever Benzonatate (Tessalon Perles), 100 MG PO TID PRN for Cough Tramadol HCl (Tramadol HCl), 100 MG PO Q6 PRN for Pain Allergies Coded Allergies: Adhesives (Verified Allergy, Severe, RED RASH, 07/27/17) Latex1 -Allergic Contact Dermititis (Verified Adverse Reaction, Mild, TAPE -SORE, 07/27/17) Morphine (Verified Adverse Reaction, Mild, DELUSIONS, 07/27/17) Physical Exam Vital Signs Date Time Temp Pulse Resp B/P (MAP) Pulse Ox O2 Delivery O2 Flow Rate FiO2 08/09/17 06:31 151/58 08/09/17 06:30 82 16 99 4.0 08/09/17 06:01 152/60 08/09/17 06:00 83 24 98 08/09/17 05:55 85 20 158/56 98 4.0 08/09/17 05:32 80 20 99 08/09/17 05:09 83 08/09/17 05:08 36.9 84 26 149/48 99 Room Air 08/09/17 05:08 99 Nasal Cannula 4.0 08/09/17 05:07 149/48 Physical Exam HEENT: Head - normocephalic and atraumatic Pupils are equal, round, and reactive to light. Extraocular eye muscles are intact, and sclera are anicteric. Nose - moist nasal mucosa without discharge. Mouth - moist buccal mucosa. Oropharynx is nonerythematous and there is no tonsillar exudate or edema noted. Neck: Supple; no JVD, nuchal rigidity, cervical lymphadenopathy. Heart: Regular rate and rhythm. There is a normal S1 and S2 with no murmurs, clicks, or gallops appreciated. Lungs: Clear to auscultation bilaterally with no wheezes, rales, or rhonchi. Abdomen: Pain with palpation on both upper quadrants, nondistended, with good bowel sounds. There are no palpable pulsatile masses or hepatosplenomegaly. There is no guarding, rigidity, or rebound noted. Rectal exam: black stool and bloody mucous. Extremities: Right lower extremity superior to ankle has hematoma with surrounding erythema. No evidence of cyanosis, clubbing, or edema. There are easily palpable peripheral pulses. Skin: warm and dry with good turgor and no rashes. Medical Decision & Procedures Laboratory Results 08/09/17 05:00 Red Blood Count 2.74, Mean Corpuscular Volume 98.9, Mean Corpuscular Hemoglobin 29.9, Mean Corpuscular Hemoglobin Concent 30.3, Mean Platelet Volume 8.9, Neutrophils (%) (Auto) 61.1, Lymphocytes (%) (Auto) 24.1, Monocytes (%) (Auto) 7.0, Eosinophils (%) (Auto) 6.2, Basophils (%) (Auto) 0.3, Neutrophils # (Auto) 7.54, Lymphocytes # (Auto) 2.98, Monocytes # (Auto) 0.86, Eosinophils # (Auto) 0.76, Basophils # (Auto) 0.04 08/09/17 05:00 Test 08/09/17 05:00 White Blood Count 12.34 K/uL (4.8-10.8) Red Blood Count 2.74 M/uL (4.2-5.4) Hemoglobin 8.2 g/dL (12.0-16.0) Hematocrit 27.1 % (37-47) Mean Corpuscular Volume 98.9 fL (80-100) Mean Corpuscular Hemoglobin 29.9 pg (25-34) Mean Corpuscular Hemoglobin Concent 30.3 g/dl (32-36) Platelet Count 238 K/uL (130-400) Mean Platelet Volume 8.9 fL (7.4-10.4) Neutrophils (%) (Auto) 61.1 % Lymphocytes (%) (Auto) 24.1 % Monocytes (%) (Auto) 7.0 % Eosinophils (%) (Auto) 6.2 % Basophils (%) (Auto) 0.3 % Neutrophils # (Auto) 7.54 K/uL (1.4-6.5) Lymphocytes # (Auto) 2.98 K/uL (1.2-3.4) Monocytes # (Auto) 0.86 K/uL (0.11-0.59) Eosinophils # (Auto) 0.76 K/uL (0-0.5) Basophils # (Auto) 0.04 K/uL (0-0.2) RDW Standard Deviation 59.7 fL (36.4-46.3) RDW Coefficient of Variation 16.6 % (11.5-14.5) Immature Granulocyte % (Auto) 1.3 % Immature Granulocyte # (Auto) 0.16 K/uL (0.00-0.02) Polychromasia 1+ Stomatocytes 1+ Prothrombin Time 11.1 SECONDS (9.0-12.0) Prothromb Time International Ratio 1.1 (0.9-1.1) Activated Partial Thromboplast Time 24.7 SECONDS (21.0-31.0) Partial Thromboplastin Ratio 1.0 Anion Gap 5.0 mmol/L (3-11) Est Creatinine Clear Calc Drug Dose 31.0 ml/min Estimated GFR () 26.5 Estimated GFR (Non- 22.9 BUN/Creatinine Ratio 18.8 (10-20) Calcium Level 9.7 mg/dl (8.5-10.1) Total Bilirubin 0.3 mg/dl (0.2-1) Direct Bilirubin < 0.1 mg/dl (0-0.2) Aspartate Amino Transf (AST/SGOT) 11 U/L (15-37) Alanine Aminotransferase (ALT/SGPT) 15 U/L (12-78) Alkaline Phosphatase 86 U/L (45-117) Total Protein 7.4 gm/dl (6.4-8.2) Albumin 2.8 gm/dl (3.4-5.0) Lipase 125 U/L (73-393) Laboratory results per my review. Medications Administered Medications (Trade) Dose Ordered Sig/Rupinder Route Start Time Stop Time Status Last Admin Dose Admin Hydromorphone HCl (Dilaudid Inj) 1 mg NOW STAT IV 08/09/17 05:20 08/09/17 05:21 DC 08/09/17 05:28 1 MG Ondansetron HCl (Zofran Inj) 4 mg Q6H PRN IV 08/09/17 06:30 09/08/17 06:29 08/09/17 11:16 4 MG Procedure 0520: Ordered Dilaudid Inj 1mg IV. ECG Indication: SOB/dyspnea, other (rectal bleeding) Rate (beats per minute): 80 Rhythm: normal sinus Findings: no acute ischemic change, no ectopy, other (poor baseline) ED Course 0510: Past medical records reviewed. The patient was evaluated in room B9. A complete history and physical exam was performed. A rectal exam was performed. A twelve-lead EKG was obtained. The patients electrocardiogram was interpreted by me. 0520: Ordered Dilaudid Inj 1mg IV for back pain. 0556: Discussed the patient's case with Dr. Thomas [facility] [place]. The patient will be evaluated for further management. 0600: The patient will go for a noncontrasted CAT scan to evaluate for diverticulitis. Medical Decision The patient is a 67 year old female who presents to the ED with rectal bleeding. Differential diagnosis includes worsening anemia, acute GI bleeding, diverticulitis, and colitis. Her laboratory results showed BUN of 40, creatinine of 2.1 which is up from 1.7, glucose of 113, normal LFT's, , normal coagulation studies, white count of 12.3, and hemoglobin of 8.2 , which is lower than 8.8 from her last Emergency Department visit. this is 67 year old female patient presents to the emergency department with rectal bleeding. The patient denies having history of this in the past. She denies any history of diverticulitis. At this time, she is denying any acute abdominal pain. She describes having chronic back pain as a result of a fall from a couple of weeks ago. The patient's hemoglobin has dropped significantly and she will most likely require transfusion. CT scan of the abdomen/pelvis is pending. I discussed the case with the [facility] Hospitalist and they will byway for further management. Medication Reconcilliation Current Medication List: was personally reviewed by me Blood Pressure Screening Patient's blood pressure: Elevated blood pressure Blood pressure disposition: Elevated BP felt to be situational (will be adressed as an inpatient) Consults Time Called: 0556 Consulting Physician: JEISON Thomas Returned Call: [phone] Discussed the patient's case with JEISON Thomas. The patient will be evaluated for further management. Impression Primary Impression: GI bleed Additional Impression: Anemia Scribe Attestation The scribe's documentation has been prepared under my direction and personally reviewed by me in its entirety. I confirm that the note above accurately reflects all work, treatment, procedures, and medical decision making performed by me. Departure Information Dispostion Being Evaluated By Hospitalist Referrals No Doctor, Assigned (PCP) Forms HOME CARE DOCUMENTATION FORM, IMPORTANT VISIT INFORMATION Patient Instructions My [facility] Problem Qualifiers Primary Impression: GI bleed GI bleed type/associated pathology: unspecified gastrointestinal hemorrhage type Qualified Codes: K92.2 - Gastrointestinal hemorrhage, unspecified Additional Impression: Anemia Other causes of anemia: acute posthemorrhagic
[2017-08-10] MEDS: ACETAMINOPHEN 325 MG TAB PO PRN ×2 (06:15→21:29)
[2017-08-10] MEDS: LEVALBUTEROL 1.25MG/3ML NEB INH SCH ×4 (08:00→19:11)
--- NOTE | 2017-08-10 08:57 | [facility] Post Operative Brief Note ---
Immediate Operative Summary Operative Date Aug 10, 2017. Pre-Operative Diagnosis abscess on right lower leg Post-Operative Diagnosis same Procedure(s) Performed I/D abscess on right lower leg Surgeon Elio Michelle MD Acting Instructor Surgeon(s) none Estimated Blood Loss 1 ml Findings Consistent with Post-Op Diagnosis Fluids (cc crystalloids) none Specimens wound culture Drains None packing the wound Anesthesia Type Local Complication(s) none Disposition Accompanied Pt To Recover: yes Disposition: at bedside
[2017-08-10] MEDS: LOSARTAN POTASSIUM 50 MG TAB PO SCH (09:11)
[2017-08-10] MEDS: METOPROLOL SUCC 50MG EXT REL TAB PO SCH (09:12)
[2017-08-10] MEDS: ATORVASTATIN 20 MG TAB PO SCH (09:12)
[2017-08-10] MEDS: FERROUS SULFATE 325 MG TAB PO SCH (09:12)
[2017-08-10] MEDS: ALLOPURINOL 300 MG TAB PO SCH (09:12)
[2017-08-10] MEDS: CHOLECALCIFEROL 1000 INTER.UNIT TAB PO SCH (09:12)
[2017-08-10] MEDS: GABAPENTIN 300 MG CAP PO SCH ×3 (09:12→20:29)
[2017-08-10] MEDS: CEROVITE ADV FORMULA TAB PO SCH (09:12)
[2017-08-10] MEDS: PANTOprazole SOD 40 MG TAB PO SCH (09:13)
[2017-08-10] MEDS: PROPAFENONE HCL 150 MG TAB PO SCH ×3 (09:13→20:29)
[2017-08-10] MEDS: AMOXICILLIN/CLAVULANATE TAB 875 MG TAB PO SCH (09:13)
[2017-08-10] MEDS: ROFLUMILAST 500 MCG TAB PO SCH (09:13)
[2017-08-10] MEDS: BUMETANIDE 1 MG TAB PO SCH ×2 (09:13→20:29)
[2017-08-10] MEDS: SERTRALINE HCL 50 MG TAB PO SCH (09:14)
[2017-08-10] MEDS: RANITIDINE HCL 150 MG TAB PO SCH ×2 (09:14→20:29)
[2017-08-10] MEDS: POTASSIUM CHLORIDE 20 MEQ TABCR PO SCH ×2 (09:14→19:51)
[2017-08-10] MEDS: ROPINIROLE HCL 5 MG TAB PO SCH (09:14)
[2017-08-10] MEDS: LIDODERM (LIDOCAINE) PATCH 5% TD SCH (09:15)
--- NOTE | 2017-08-10 09:46 | Gastroenterology Progress Note ---
Progress Note Date of Service: Aug 10, 2017 Subjective Pt evaluation today including: conversation w/ patient, physical exam, chart review Patient is s/p I&D right leg abscess yesterday. Patient was scheduled for colonoscopy today but cancelled due to medical comorbidities. Denies any overt GIB. Continues PPI therapy. No GI complaints at present. Review of Systems Constitutional: + fatigue Respiratory: No problem reported Cardiac: No problem reported Abdomen: + see HPI Medications Current Inpatient Medications Medications (Trade) Dose Ordered Sig/Rupinder Route Start Time Stop Time Status Last Admin Dose Admin Ioversol (Optiray 320) 100 ml UD PRN IV 08/09/17 06:00 08/13/17 05:59 Acetaminophen (Tylenol Tab) 650 mg Q4H PRN PO 08/09/17 06:30 09/08/17 06:29 08/10/17 06:15 650 MG Ondansetron HCl (Zofran Inj) 4 mg Q6H PRN IV 08/09/17 06:30 09/08/17 06:29 08/09/17 11:16 4 MG Albuterol (Ventolin Hfa Inhaler) 2 puffs Q6H INH 08/09/17 12:00 09/08/17 11:59 08/10/17 05:33 2 PUFFS Allopurinol (Zyloprim Tab) 300 mg DAILY PO 08/09/17 09:00 09/08/17 08:59 08/10/17 09:12 300 MG Atorvastatin Calcium (Lipitor Tab) 20 mg DAILY PO 08/09/17 09:00 09/08/17 08:59 08/10/17 09:12 20 MG Benzonatate (Tessalon Perles Cap) 100 mg TID PRN PO 08/09/17 06:45 09/08/17 06:44 Bumetanide (Bumex Tab) 1 mg BID PO 08/09/17 09:00 09/08/17 08:59 08/10/17 09:13 1 MG Cholecalciferol (Vitamin D Tab) 2,000 inter.unit DAILY PO 08/09/17 09:00 09/08/17 08:59 08/10/17 09:12 2,000 INTER.UNIT Gabapentin (Neurontin Cap) 300 mg TID PO 08/09/17 09:00 09/08/17 08:59 08/10/17 09:12 300 MG Levalbuterol (Xopenex 1.25MG/ 3ML Neb) 1.25 mg QIDR INH 08/09/17 08:00 09/08/17 07:59 08/10/17 08:00 1.25 MG Levothyroxine Sodium (Synthroid Tab) 88 mcg DAILYBB PO 08/09/17 08:15 09/08/17 08:14 08/10/17 05:35 88 MCG Lidocaine (Lidoderm Patch 5%) 1 patch QAM TD 08/09/17 09:00 09/08/17 08:59 08/10/17 09:15 1 PATCH Losartan Potassium (coZAAR TAB) 50 mg DAILY PO 08/09/17 09:00 09/08/17 08:59 08/10/17 09:11 50 MG Metoprolol Succinate (Toprol Xl Tab) 50 mg DAILY PO 08/09/17 09:00 09/08/17 08:59 08/10/17 09:12 50 MG Multivitamins/ Minerals (Multivitamin W/ Minerals Tab) 1 tab DAILY PO 08/09/17 09:00 09/08/17 08:59 08/10/17 09:12 1 TAB Potassium Chloride (Klor-Con Tab) 20 meq BID17 PO 08/09/17 09:00 09/08/17 08:59 08/10/17 09:14 20 MEQ Prednisone (PredniSONE TAB) 10 mg DAILY PO 08/09/17 09:00 09/08/17 08:59 08/10/17 09:14 10 MG Propafenone HCl (Rythmol Tab) 150 mg TID PO 08/09/17 09:00 09/08/17 08:59 08/10/17 09:13 150 MG Ranitidine HCl (zANTac TAB) 150 mg BID PO 08/09/17 09:00 09/08/17 08:59 08/10/17 09:14 150 MG Roflumilast (Daliresp Tab) 500 mcg DAILY PO 08/09/17 09:00 09/08/17 08:59 08/10/17 09:13 500 MCG Ropinirole HCl (Requip Tab) 5 mg DAILY PO 08/09/17 09:00 09/08/17 08:59 08/10/17 09:14 5 MG Sertraline HCl (Zoloft Tab) 25 mg DAILY PO 08/09/17 09:00 09/08/17 08:59 08/10/17 09:14 25 MG Tramadol HCl (Ultram Tab) 100 mg Q6 PRN PO 08/09/17 06:45 09/08/17 06:44 08/10/17 04:24 100 MG Ferrous Sulfate (Feosol Tab) 325 mg DAILY PO 08/09/17 09:00 09/08/17 08:59 08/10/17 09:12 325 MG Miscellaneous Information (Order Awaiting Action) 1 ea QS N/A 08/09/17 08:00 09/08/17 07:59 Pantoprazole Sodium (Protonix Tab) 40 mg QAM PO 08/09/17 09:00 09/08/17 08:59 08/10/17 09:13 40 MG Miscellaneous Information (Order Awaiting Action) 1 ea QS N/A 08/09/17 08:00 09/08/17 07:59 Miscellaneous (Remove Lidoderm Patch) 1 ea DAILY@21 N/A 08/09/17 21:00 09/08/17 20:59 08/09/17 21:00 1 EA Amoxicillin/ Clavulanate Potassium (Augmentin Tab) 875 mg BIDM PO 08/09/17 08:15 08/19/17 08:14 08/10/17 09:13 875 MG Sodium Chloride 1,000 ml @ 75 mls/hr [id number] IV 08/09/17 07:45 08/10/17 10:24 08/10/17 01:09 75 MLS/HR Hydromorphone HCl (Dilaudid Inj) 0.5 mg Q4H PRN IV 08/09/17 08:30 08/23/17 08:29 08/10/17 05:31 0.5 MG Bisacodyl (Dulcolax Tab) 20 mg 1615 ONCE PO 08/10/17 16:15 08/10/17 16:16 Objective Vital Signs Date Time Temp Pulse Resp B/P (MAP) Pulse Ox O2 Delivery O2 Flow Rate FiO2 08/10/17 08:50 36.7 76 18 134/69 (90) 96 Nasal Cannula 4.0 08/10/17 07:00 79 20 100 Nasal Cannula 4.0 08/10/17 04:00 96 CPAP 4.0 08/10/17 03:39 36.5 79 18 130/54 (79) 96 CPAP 08/10/17 00:25 36.9 70 16 169/75 (106) 96 CPAP 4.0 08/10/17 00:00 96 CPAP 4.0 08/09/17 20:00 92 CPAP 4.0 08/09/17 19:44 75 20 95 BiPAP/CPAP 4.0 08/09/17 19:24 36.5 72 22 136/76 (96) 92 BiPAP 08/09/17 16:00 Nasal Cannula 4.0 CPAP 08/09/17 15:47 36.4 78 22 138/74 (95) 97 BiPAP 08/09/17 15:40 77 20 97 BiPAP/CPAP 4.0 08/09/17 15:35 37.6 74 16 144/76 98 4.0 08/09/17 14:45 36.7 81 16 134/66 94 4.0 08/09/17 14:01 35.8 79 16 136/75 (95) 96 BiPAP 08/09/17 13:10 36.7 83 18 127/69 100 4.0 08/09/17 12:49 36.6 86 18 113/49 98 4.0 08/09/17 12:00 Nasal Cannula 4.0 08/09/17 11:22 36.8 81 22 104/66 (79) 99 Nasal Cannula 4.0 Physical Exam General Appearance: no apparent distress Respiratory/Chest: normal breath sounds, + decreased breath sounds (bases) Cardiovascular: regular rate, rhythm Abdomen: normal bowel sounds, soft, + tenderness (upper abdomen) Extremities: + swelling, + pertinent finding (bandage on right lower extremity. ) Neurologic/Psych: alert, oriented x 3 Skin: warm/dry Laboratory Results Last 24 Hours Test 08/09/17 17:28 08/10/17 00:17 Hemoglobin 8.7 g/dL 8.0 g/dL Hematocrit 28.4 % 26.3 % Assessment and Plan This is a 67-year-old female with chronic anemia of unknown etiology, who does have rectal bleeding. 1. Continue supportive medical management with Protonix 40 mg daily. 2. Inpatient endoscopic evaluation cancelled due to medical comorbidities. 3. Consider of outpatient work up of chronic anemia once acute issues are resolved. Agree with EVELYN Gómez as above Abd: Soft, NT, ND, +BS Continue current therapy Outpatient GI workup
[2017-08-10] MEDS ORDERED: VANCOMYCIN INJ 1,000 MG in SODIUM CHLORIDE 0.9% 250ML 250 ML IV ONE (11:47)
[2017-08-10] MEDS ORDERED: VANCOMYCIN CONSULT ACTIVE PRN ×2 (12:00)
[2017-08-10] MEDS ORDERED: VANCOMYCIN INJ 2,750 MG in SODIUM CHLORIDE 0.9% 500ML 500 ML IV ONE (12:30)
[2017-08-10] MEDS: ONDANSETRON INJ 2 MG/ML 2 ML VIAL IV PRN (12:46)
--- NOTE | 2017-08-10 13:51 | Surgery Progress Note ---
Surgery Progress Note Date of Service Aug 10, 2017. Subjective Post OP Day: 1 (s/p incision and drainage RLE hematoma) patient was originally scheduled for Colonoscopy today but cancelled given patient was lethargic and not alert enough for bowel prep. Bedside I&D Patient states there was drainage on the dressing, has been changed. minimal pain at incision site, controlled Objective Vital Signs: Date Time Temp Pulse Resp B/P (MAP) Pulse Ox O2 Delivery O2 Flow Rate FiO2 08/10/17 12:00 Nasal Cannula 4.0 CPAP 08/10/17 11:55 36.7 70 22 140/81 (100) 100 Nasal Cannula 4.0 08/10/17 11:11 70 20 100 Nasal Cannula 4.0 08/10/17 08:50 36.7 76 18 134/69 (90) 96 Nasal Cannula 4.0 08/10/17 08:00 Nasal Cannula 4.0 CPAP 08/10/17 07:00 79 20 100 Nasal Cannula 4.0 08/10/17 04:00 96 CPAP 4.0 08/10/17 03:39 36.5 79 18 130/54 (79) 96 CPAP 08/10/17 00:25 36.9 70 16 169/75 (106) 96 CPAP 4.0 08/10/17 00:00 96 CPAP 4.0 08/09/17 20:00 92 CPAP 4.0 08/09/17 19:44 75 20 95 BiPAP/CPAP 4.0 08/09/17 19:24 36.5 72 22 136/76 (96) 92 BiPAP 08/09/17 16:00 Nasal Cannula 4.0 CPAP 08/09/17 15:47 36.4 78 22 138/74 (95) 97 BiPAP 08/09/17 15:40 77 20 97 BiPAP/CPAP 4.0 08/09/17 15:35 37.6 74 16 144/76 98 4.0 08/09/17 14:45 36.7 81 16 134/66 94 4.0 08/09/17 14:01 35.8 79 16 136/75 (95) 96 BiPAP General Appearance: no apparent distress, + obese Head: normocephalic, atraumatic Neck: trachea midline Respiratory/Chest: no respiratory distress, no accessory muscle use Extremities: + pertinent finding (clean,dry dressing of the RLE at site of I&D , not removed as wound nurse will be consulted for wound care daily) Laboratory Results: Results Past 24 Hours Test 08/09/17 17:28 08/10/17 00:17 Range/Units Hemoglobin 8.7 8.0 12.0-16.0 g/dL Hematocrit 28.4 26.3 37-47 % Microbiology Results 08/09/17 Gram Stain - Final, Resulted 08/09/17 Wound Culture - Preliminary, Resulted NO GROWTH TO DATE. Assessment & Plan POD # 1 s/p bedside I&D of RLE hematoma - vitals stable, afebrile - Wound culture pending, preliminary showing no growth to date Plan: Will consult wound nurse for daily packing changes and dressing Await results of culture however continue PO Augmentin in the meantime Pain management as needed Continue current medical management for acute issues Will sign off today, call with questions or concerns. Dr. Michelle has seen and examined patient, agrees with above
[2017-08-10] MEDS: AMPICILLIN/SULBACTAM SOD INJ 3,000 MG in SODIUM CHLORIDE 0.9% 100ML 100 ML IV SCH ×2 (14:00→20:19)
[2017-08-10] MEDS ORDERED: AMPICILLIN/SULBACTAM SOD INJ 3,000 MG in SODIUM CHLORIDE 0.9% 100ML 100 ML IV SCH (14:00)
[2017-08-10 15:01] LABS: CREATININE 1.46 mg/dl (0.60-1.20)
--- NOTE | 2017-08-10 15:35 | Progress Note ---
Medicine Progress Note Date & Time of Visit: Aug 10, 2017 at 15:00. Subjective Pt was seen and examined Sitting in chair with no distress Pt said that pain seems to improve She said that she does not have any more dark stools Denies any chest pain, palpitation, fever and SOB Objective Last 8 Hrs Date Time Temp Pulse Resp B/P (MAP) Pulse Ox O2 Delivery O2 Flow Rate FiO2 08/10/17 12:00 Nasal Cannula 4.0 CPAP 08/10/17 11:55 36.7 70 22 140/81 (100) 100 Nasal Cannula 4.0 08/10/17 11:11 70 20 100 Nasal Cannula 4.0 08/10/17 08:50 36.7 76 18 134/69 (90) 96 Nasal Cannula 4.0 08/10/17 08:00 Nasal Cannula 4.0 CPAP Physical Exam: General- No acute distress Head- atraumatic Eyes- PERRL, EOMI ENT- oropharynx clear Neck- supple, no JVD Lungs- No wheezing Heart- regular rhythm Abdomen- normal bowel sounds, soft Extremities- no calf tenderness, dressing in RLE Neuro- alert, oriented, PERRL, EOMI; no facial palsy Skin- warm & dry Laboratory Results: Last 24 Hours Test 08/09/17 17:28 08/10/17 00:17 08/10/17 14:22 Hemoglobin 8.7 g/dL 8.0 g/dL Hematocrit 28.4 % 26.3 % Date/Time Source Procedure Growth Status 08/09/17 20:50 Abscess Right Lower Extremity Gram Stain - Final Resulted 08/09/17 20:50 Abscess Right Lower Extremity Wound Culture - Preliminary NO GROWTH TO DATE. Resulted Assessment & Plan BRIGHT RED BLOOD PER RECTUM Hb on admission 8 CT abd w/o contrast showed Limited diverticulosis without evidence of diverticulitis. No bowel obstruction or convincing evidence of acute intra- abdominal Received 1 unit PRBC during hospital course Did not get prep yesterday for colonoscopy due to I&D Tolerated diet Hg stable Hold ASA GI on board RIGHT LEG HEMATOMA/ABSCESS S/P Fall 3 weeks ago Afebrile, no leukocytosis S/P I&D day [address] Michelle Culture pending Starting on Vanco and Unasyn for the abscess Hold Augmentin for now Surgery on board ACUTE RENAL FAILURE ON CKD 3 Likely pre renal Creatine improved to 1.4 today Monitor BMP RIGHT SHOULDER PAIN U/S showed mild motion artifact and metallic artifact within the shoulder resulting in difficult evaluation of the humeral neck. However, there is suggestion of a subtle cortical lucency at the humeral neck. Ortho consulting Will order a sling for the LUE PT/OT COPD Not in any exacerbation Continue CPAP Continue Neb treatment Stable History atrial fibrillation rate control Not on Coumadin On metoprolol Depression and anxiety Continue with current medications. Stable Hypothyroidism Continue with replacement. DVT On SCDs due hematoma CODE STATUS FULL CODE Consultants: Gastro Surgery Procedures: I&D Current Inpatient Medications: Current Inpatient Medications Medications (Trade) Dose Ordered Sig/Rupinder Route Start Time Stop Time Status Last Admin Dose Admin Ioversol (Optiray 320) 100 ml UD PRN IV 08/09/17 06:00 08/13/17 05:59 Acetaminophen (Tylenol Tab) 650 mg Q4H PRN PO 08/09/17 06:30 09/08/17 06:29 08/10/17 06:15 650 MG Ondansetron HCl (Zofran Inj) 4 mg Q6H PRN IV 08/09/17 06:30 09/08/17 06:29 08/10/17 12:46 4 MG Albuterol (Ventolin Hfa Inhaler) 2 puffs Q6H INH 08/09/17 12:00 09/08/17 11:59 08/10/17 12:23 2 PUFFS Allopurinol (Zyloprim Tab) 300 mg DAILY PO 08/09/17 09:00 09/08/17 08:59 08/10/17 09:12 300 MG Atorvastatin Calcium (Lipitor Tab) 20 mg DAILY PO 08/09/17 09:00 09/08/17 08:59 08/10/17 09:12 20 MG Benzonatate (Tessalon Perles Cap) 100 mg TID PRN PO 08/09/17 06:45 09/08/17 06:44 Bumetanide (Bumex Tab) 1 mg BID PO 08/09/17 09:00 09/08/17 08:59 08/10/17 09:13 1 MG Cholecalciferol (Vitamin D Tab) 2,000 inter.unit DAILY PO 08/09/17 09:00 09/08/17 08:59 08/10/17 09:12 2,000 INTER.UNIT Gabapentin (Neurontin Cap) 300 mg TID PO 08/09/17 09:00 09/08/17 08:59 08/10/17 13:52 300 MG Levalbuterol (Xopenex 1.25MG/ 3ML Neb) 1.25 mg QIDR INH 08/09/17 08:00 09/08/17 07:59 08/10/17 11:11 1.25 MG Levothyroxine Sodium (Synthroid Tab) 88 mcg DAILYBB PO 08/09/17 08:15 09/08/17 08:14 08/10/17 05:35 88 MCG Lidocaine (Lidoderm Patch 5%) 1 patch QAM TD 08/09/17 09:00 09/08/17 08:59 08/10/17 09:15 1 PATCH Losartan Potassium (coZAAR TAB) 50 mg DAILY PO 08/09/17 09:00 09/08/17 08:59 08/10/17 09:11 50 MG Metoprolol Succinate (Toprol Xl Tab) 50 mg DAILY PO 08/09/17 09:00 09/08/17 08:59 08/10/17 09:12 50 MG Multivitamins/ Minerals (Multivitamin W/ Minerals Tab) 1 tab DAILY PO 08/09/17 09:00 09/08/17 08:59 08/10/17 09:12 1 TAB Potassium Chloride (Klor-Con Tab) 20 meq BID17 PO 08/09/17 09:00 09/08/17 08:59 08/10/17 09:14 20 MEQ Prednisone (PredniSONE TAB) 10 mg DAILY PO 08/09/17 09:00 09/08/17 08:59 08/10/17 09:14 10 MG Propafenone HCl (Rythmol Tab) 150 mg TID PO 08/09/17 09:00 09/08/17 08:59 08/10/17 13:52 150 MG Ranitidine HCl (zANTac TAB) 150 mg BID PO 08/09/17 09:00 09/08/17 08:59 08/10/17 09:14 150 MG Roflumilast (Daliresp Tab) 500 mcg DAILY PO 08/09/17 09:00 09/08/17 08:59 08/10/17 09:13 500 MCG Ropinirole HCl (Requip Tab) 5 mg DAILY PO 08/09/17 09:00 09/08/17 08:59 08/10/17 09:14 5 MG Sertraline HCl (Zoloft Tab) 25 mg DAILY PO 08/09/17 09:00 09/08/17 08:59 08/10/17 09:14 25 MG Tramadol HCl (Ultram Tab) 100 mg Q6 PRN PO 08/09/17 06:45 09/08/17 06:44 08/10/17 04:24 100 MG Ferrous Sulfate (Feosol Tab) 325 mg DAILY PO 08/09/17 09:00 09/08/17 08:59 08/10/17 09:12 325 MG Miscellaneous Information (Order Awaiting Action) 1 ea QS N/A 08/09/17 08:00 09/08/17 07:59 Pantoprazole Sodium (Protonix Tab) 40 mg QAM PO 08/09/17 09:00 09/08/17 08:59 08/10/17 09:13 40 MG Miscellaneous Information (Order Awaiting Action) 1 ea QS N/A 08/09/17 08:00 09/08/17 07:59 Miscellaneous (Remove Lidoderm Patch) 1 ea DAILY@21 N/A 08/09/17 21:00 09/08/17 20:59 08/09/17 21:00 1 EA Amoxicillin/ Clavulanate Potassium (Augmentin Tab) 875 mg BIDM PO 08/09/17 08:15 08/19/17 08:14 Future Hold 08/10/17 09:13 875 MG Hydromorphone HCl (Dilaudid Inj) 0.5 mg Q4H PRN IV 08/09/17 08:30 08/23/17 08:29 08/10/17 13:52 0.5 MG Bisacodyl (Dulcolax Tab) 20 mg 1615 ONCE PO 08/10/17 16:15 08/10/17 16:16 Miscellaneous Information (Consult) 1 ea UD PRN N/A 08/10/17 12:00 09/09/17 11:59 Vancomycin HCl 2750 mg/Sodium Chloride 555 ml @ 200 mls/hr TODAY@1230 ONCE IV 08/10/17 12:30 08/10/17 15:16 08/10/17 12:46 200 MLS/HR Ampicillin Sodium/ Sulbactam Sodium 3000 mg/Sodium Chloride 108 ml @ 200 mls/hr Q6H IV 08/10/17 14:00 08/12/17 13:59
--- NOTE | 2017-08-10 15:38 | Pharmacy Progress Note ---
Pharmacy Abx Initial Consult Date of Service Aug 10, 2017. Pharmacy Dosing Scope Date of Consult: 08/10/17 Consultation requested by: Dr. Prescott Pharmacy is consulted to initiate Vancomycin IV dosing therapy, order appropriate labs and adjust drug dose/frequency. Subjective The patient is a 67 year old female admitted on Aug 09, 2017 at 06:31. Objective Height (Feet): 5 Height (Inches): 4.00 Weight (Kilograms): 113.200 Vital Signs (Past 12Hrs) Vital Signs Past 12 Hours Date Time Temp Pulse Resp B/P (MAP) Pulse Ox O2 Delivery O2 Flow Rate FiO2 08/10/17 15:23 70 20 100 BiPAP/CPAP 4.0 08/10/17 12:00 Nasal Cannula 4.0 CPAP 08/10/17 11:55 36.7 70 22 140/81 (100) 100 Nasal Cannula 4.0 08/10/17 11:11 70 20 100 Nasal Cannula 4.0 08/10/17 08:50 36.7 76 18 134/69 (90) 96 Nasal Cannula 4.0 08/10/17 08:00 Nasal Cannula 4.0 CPAP 08/10/17 07:00 79 20 100 Nasal Cannula 4.0 08/10/17 04:00 96 CPAP 4.0 08/10/17 03:39 36.5 79 18 130/54 (79) 96 CPAP Micro Results Date/Time Source Procedure Growth Status 08/09/17 20:50 Abscess Right Lower Extremity Gram Stain - Final Resulted 08/09/17 20:50 Abscess Right Lower Extremity Wound Culture - Preliminary NO GROWTH TO DATE. Resulted Assessment & Plan Assessment 67yo F being empirically treated w/ Vanco/Unasyn for unknown source. Waiting on Dr. Prescott's note. Ms. Lee's renal fxn looks to be at baseline. Pt population p'kinetics: t1/2=16.5, ke=[id number]. qSOFA score: 0. She is known to the pharmacy kinetic team from previous admissions. Will initiate a regimen slightly less aggressive as compared to previous admissions to mitigate supratx lvls. Plan Vancomycin * Vancomycin 2750mg (24mg/kg) x1 to achieve a peak of 40mcg/mL * Then Vanco 1500mg (13mg/kg) q20 * Vanco trough ordered for 08/13/17 @ 0930 * Goal trough: 15-20mcg/mL Pharmacy will continue to follow and will adjust dose/frequency as necessary. Thank you.
[2017-08-10] MEDS ORDERED: BISACODYL 5 MG TABEC PO ONE (16:15)
[2017-08-10 18:15] LABS: HEMATOCRIT 28.3 % (37-47); HEMOGLOBIN 8.7 g/dL (12.0-16.0)
[2017-08-11] VITALS (12 sets, daily range): BP systolic 125–159; BP diastolic 70–105; PULSE 71–81; TEMP 36.5–37.1; O2SAT 90–100
[2017-08-11] MEDS: AMPICILLIN/SULBACTAM SOD INJ 3,000 MG in SODIUM CHLORIDE 0.9% 100ML 100 ML IV SCH ×4 (01:36→19:42)
[2017-08-11] MEDS: TRAMADOL HCL 50 MG TAB PO PRN ×3 (03:54→23:35)
[2017-08-11] MEDS ORDERED: VANCOMYCIN INJ 1,750 MG in SODIUM CHLORIDE 0.9% 500ML 500 ML IV SCH (04:00)
[2017-08-11] MEDS ORDERED: VANCOMYCIN INJ 1,500 MG in SODIUM CHLORIDE 0.9% 500ML 500 ML IV SCH (04:00)
[2017-08-11] MEDS: LEVOTHYROXINE 88 MCG TAB PO SCH (06:04)
[2017-08-11] MEDS: ALBUTEROL HFA 8 GM INHALER INH SCH ×4 (06:04→23:37)
[2017-08-11 06:20] LABS: HEMATOCRIT 27.5 % (37-47); HEMOGLOBIN 8.3 g/dL (12.0-16.0); MEAN CELL VOLUME 98.6 fL (80-100); MEAN CORPUSCULAR HEMOGLOBIN 29.7 pg (25-34); MEAN CORPUSCULAR HGB CONC 30.2 g/dl (32-36); MEAN PLATELET VOLUME 8.4 fL (7.4-10.4); NUCLEATED RED BLOOD CELL ABS 0.03 K/uL (0-0); PLATELET COUNT 178 K/uL (130-400); RED CELL DISTRIBUTION WIDTH CV 15.9 % (11.5-14.5); WHITE BLOOD COUNT 10.34 K/uL (4.8-10.8)
[2017-08-11 06:59] LABS: CALCIUM 9.5 mg/dl (8.5-10.1); CREATININE 1.36 mg/dl (0.60-1.20); POTASSIUM 4.3 mmol/L (3.5-5.1)
[2017-08-11] MEDS: HYDROmorphone INJ 0.5 MG/0.5 ML SYR IV PRN (07:04)
[2017-08-11] MEDS: LEVALBUTEROL 1.25MG/3ML NEB INH SCH (07:21)
[2017-08-11] MEDS: CEROVITE ADV FORMULA TAB PO SCH (07:45)
[2017-08-11] MEDS: PROPAFENONE HCL 150 MG TAB PO SCH ×3 (07:45→20:23)
[2017-08-11] MEDS: ROPINIROLE HCL 5 MG TAB PO SCH (07:46)
[2017-08-11] MEDS: METOPROLOL SUCC 50MG EXT REL TAB PO SCH (07:46)
[2017-08-11] MEDS: LOSARTAN POTASSIUM 50 MG TAB PO SCH (07:46)
[2017-08-11] MEDS: ROFLUMILAST 500 MCG TAB PO SCH (07:47)
[2017-08-11] MEDS: POTASSIUM CHLORIDE 20 MEQ TABCR PO SCH ×2 (07:47→17:15)
[2017-08-11] MEDS: BUMETANIDE 1 MG TAB PO SCH ×2 (07:47→20:25)
[2017-08-11] MEDS: SERTRALINE HCL 50 MG TAB PO SCH (07:48)
[2017-08-11] MEDS: FERROUS SULFATE 325 MG TAB PO SCH (07:48)
[2017-08-11] MEDS: GABAPENTIN 300 MG CAP PO SCH ×3 (07:48→20:24)
[2017-08-11] MEDS: CHOLECALCIFEROL 1000 INTER.UNIT TAB PO SCH (07:48)
[2017-08-11] MEDS: LIDODERM (LIDOCAINE) PATCH 5% TD SCH (07:48)
[2017-08-11] MEDS: PANTOprazole SOD 40 MG TAB PO SCH (07:48)
[2017-08-11] MEDS: ATORVASTATIN 20 MG TAB PO SCH (07:48)
[2017-08-11] MEDS: ALLOPURINOL 300 MG TAB PO SCH (07:48)
[2017-08-11] MEDS: RANITIDINE HCL 150 MG TAB PO SCH ×2 (07:48→20:23)
--- NOTE | 2017-08-11 08:23 | DIAGNOSTIC IMAGING REPORT ---
R SHOULDER MIN 2 VIEWS ROUTINE CLINICAL HISTORY: 67 years-old Female presenting with previously questioned periprosthetic fracture. TECHNIQUE: Internal rotation, external rotation, Grashey views of the right shoulder were obtained. COMPARISON: 07/27/2017. FINDINGS: Redemonstration of right shoulder arthroplasty and glenoid resurfacing. No subluxation. Relative cortical defect along the lateral aspect of the proximal metaphysis as marked on the image. The previously noted focal linear radiolucency in this region is not apparent on the current radiograph. Degenerative changes of the acromioclavicular joint. Mediastinal calcification may relate to calcified mediastinal lymph nodes. Atherosclerosis. IMPRESSION: Previously noted focal linear radiolucency along the lateral aspect of the proximal humeral metaphysis is not visualized although there is relative cortical thinning in this region. No acute osseous injury on the current radiographs. Electronically signed by: Mukund Tirado M.D. 08/11/2017 8:21 AM Dictated Date/Time: 08/11/2017 8:19 AM
[2017-08-11] MEDS ORDERED: LEVALBUTEROL 1.25MG/3ML NEB INH SCH (09:00)
[2017-08-11] MEDS ORDERED: VANCOMYCIN INJ 1,000 MG in SODIUM CHLORIDE 0.9% 250ML 250 ML IV SCH (09:00)
[2017-08-11] MEDS: ACETAMINOPHEN 325 MG TAB PO PRN ×2 (09:25→16:13)
[2017-08-11] MEDS ORDERED: LEVALBUTEROL 1.25MG/3ML NEB INH PRN (09:45)
[2017-08-11] MEDS: ONDANSETRON INJ 2 MG/ML 2 ML VIAL IV PRN ×2 (10:00→20:21)
--- NOTE | 2017-08-11 10:35 | Progress Note ---
Progress Note Date of Service Aug 11, 2017. Progress Note Patient evaluated around 9:[address] Michelle Patient sitting on commode with recent nausea and vomiting Wound of the RLE evaluated by wound nurse yesterday and dressing changed. Consult placed for Dr. York. Wound culture still pending however no growth to date. Recommendations: Continue daily packing changes. Continue Antibiotics Continue current medical management Our services signing off Dr. Michelle has seen patient, agrees with above
--- NOTE | 2017-08-11 18:00 | Orthopedic Consultation ---
Orthopedic Consultation Date of Consultation: Aug 11, 2017. Attending Physician: Tomasz Prescott M.D. Reason for Consultation: Right shoulder pain History of Present Illness Patient is a 67-year-old female who I replaced her right shoulder and repaired her rotator cuff in 2011. She told me she had a fall 3 weeks ago. There is that she's had multiple falls. She has some pain in her shoulder and decreased function of her head. Past Medical/Surgical History Medical Problems: (1) Acute kidney injury Status: Acute (2) Acute on chronic respiratory failure Status: Acute (3) Acute renal insufficiency Status: Acute (4) [id number] kidney injury Status: Acute (5) Anemia Status: Acute (6) Anemia Status: Acute (7) Chronic anemia Status: Acute (8) CKD (chronic kidney disease) Status: Acute (9) COPD exacerbation Status: Acute (10) Dehydration Status: Acute (11) Dyspnea on exertion Status: Acute (12) Fall Status: Acute (13) Fever Status: Acute (14) Generalized weakness Status: Acute (15) GI bleed Status: Acute (16) Hematoma of skin Status: Acute (17) Hypercarbia Status: Acute (18) Hypercarbia Status: Acute (19) Hypoxia Status: Acute (20) Hypoxia Status: Acute (21) Leukocytosis Status: Acute (22) Periprosthetic fracture around internal prosthetic right shoulder joint, initial encounter Status: Acute (23) Precordial chest pain Status: Acute (24) Respiratory acidosis Status: Acute (25) Respiratory failure Status: Acute (26) Right hip pain Status: Acute (27) SBO (small bowel obstruction) Status: Acute (28) Shortness of breath Status: Acute (29) SOB (shortness of breath) Status: Acute Family History Diabetes mellitus MOTHER FH: CAD (coronary artery disease) MOTHER SISTER Social History Smoking Status: Former Smoker Drug Use: none Marital Status: single Housing Status: lives with family Occupation Status: retired Allergies Coded Allergies: Adhesives (Verified Allergy, Severe, RED RASH, 07/27/17) Latex1 -Allergic Contact Dermititis (Verified Adverse Reaction, Mild, TAPE -SORE, 07/27/17) Morphine (Verified Adverse Reaction, Mild, DELUSIONS, 07/27/17) Home Medications Scheduled Albuterol Hfa (Ventolin Hfa), 2-4 PUFFS INH Q6H Allopurinol (Zyloprim), 300 MG PO DAILY Aspirin (Aspirin Ec), 81 MG PO DAILY Atorvastatin (Lipitor), 20 MG PO DAILY Bumetanide (Bumex), 1 TAB PO BID Cholecalciferol (Vitamin D3), 2,000 INTER.UNIT PO DAILY Ferrous Sulfate (Ferrous Sulfate), 325 MG PO DAILY Fluticasone Furoate-Vilanterol (Breo Ellipta 200-25 Mcg/INH), 1 PUFF INH DAILY Fluticasone Furoate-Vilanterol (Breo Ellipta 200-25 Mcg/INH), Unknown Dose INH DAILY Gabapentin (Neurontin), 300 MG PO TID Levalbuterol Hcl (Levalbuterol Hcl), 1.25 MG INH QID Levothyroxine Sodium (Synthroid), 88 MCG PO DAILY Lidocaine (Lidocaine), 1 PATCH TD QAM Losartan Potassium (Cozaar), 50 MG PO DAILY Metolazone (Metolazone), 2.5 MG PO UD Metoprolol Succinate (Toprol Xl), 50 MG PO DAILY Multivitamins/Minerals (Certavite/Antioxidants), 1 TAB PO DAILY Omeprazole (Prilosec), 1 CAP PO DAILY Potassium Ext Rel (Klor-Con), 20 MEQ PO BID Prednisone (Prednisone), 10 MG PO DAILY Propafenone Hcl (Propafenone Hcl), 150 MG PO TID Ranitidine (Zantac), 150 MG PO BID Roflumilast (Daliresp), 1 TAB PO DAILY Ropinirole (Requip), 5 MG PO DAILY Sertraline (Zoloft), 25 MG PO DAILY Umeclidinium Spade (Incruse Ellipta), 1 PUFF INH DAILY Scheduled PRN Acetaminophen (Tylenol), 650 MG PO Q4H PRN for Pain or Fever Benzonatate (Tessalon Perles), 100 MG PO TID PRN for Cough Tramadol HCl (Tramadol HCl), 100 MG PO Q6 PRN for Pain Current Inpatient Medications Current Inpatient Medications Medications (Trade) Dose Ordered Sig/Rupinder Route Start Time Stop Time Status Last Admin Dose Admin Ioversol (Optiray 320) 100 ml UD PRN IV 08/09/17 06:00 08/13/17 05:59 Acetaminophen (Tylenol Tab) 650 mg Q4H PRN PO 08/09/17 06:30 09/08/17 06:29 08/11/17 16:13 650 MG Ondansetron HCl (Zofran Inj) 4 mg Q6H PRN IV 08/09/17 06:30 09/08/17 06:29 08/11/17 10:00 4 MG Albuterol (Ventolin Hfa Inhaler) 2 puffs Q6H INH 08/09/17 12:00 09/08/17 11:59 08/11/17 12:21 2 PUFFS Allopurinol (Zyloprim Tab) 300 mg DAILY PO 08/09/17 09:00 09/08/17 08:59 08/11/17 07:48 300 MG Atorvastatin Calcium (Lipitor Tab) 20 mg DAILY PO 08/09/17 09:00 09/08/17 08:59 08/11/17 07:48 20 MG Benzonatate (Tessalon Perles Cap) 100 mg TID PRN PO 08/09/17 06:45 09/08/17 06:44 Bumetanide (Bumex Tab) 1 mg BID PO 08/09/17 09:00 09/08/17 08:59 08/11/17 07:47 1 MG Cholecalciferol (Vitamin D Tab) 2,000 inter.unit DAILY PO 08/09/17 09:00 09/08/17 08:59 08/11/17 07:48 2,000 INTER.UNIT Gabapentin (Neurontin Cap) 300 mg TID PO 08/09/17 09:00 09/08/17 08:59 08/11/17 14:21 300 MG Levothyroxine Sodium (Synthroid Tab) 88 mcg DAILYBB PO 08/09/17 08:15 09/08/17 08:14 08/11/17 06:04 88 MCG Lidocaine (Lidoderm Patch 5%) 1 patch QAM TD 08/09/17 09:00 09/08/17 08:59 08/11/17 07:48 1 PATCH Losartan Potassium (coZAAR TAB) 50 mg DAILY PO 08/09/17 09:00 09/08/17 08:59 08/11/17 07:46 50 MG Metoprolol Succinate (Toprol Xl Tab) 50 mg DAILY PO 08/09/17 09:00 09/08/17 08:59 08/11/17 07:46 50 MG Multivitamins/ Minerals (Multivitamin W/ Minerals Tab) 1 tab DAILY PO 08/09/17 09:00 09/08/17 08:59 08/11/17 07:45 1 TAB Potassium Chloride (Klor-Con Tab) 20 meq BID17 PO 08/09/17 09:00 09/08/17 08:59 08/11/17 17:15 20 MEQ Prednisone (PredniSONE TAB) 10 mg DAILY PO 08/09/17 09:00 09/08/17 08:59 08/11/17 07:46 10 MG Propafenone HCl (Rythmol Tab) 150 mg TID PO 08/09/17 09:00 09/08/17 08:59 08/11/17 14:21 150 MG Ranitidine HCl (zANTac TAB) 150 mg BID PO 08/09/17 09:00 09/08/17 08:59 08/11/17 07:48 150 MG Roflumilast (Daliresp Tab) 500 mcg DAILY PO 08/09/17 09:00 09/08/17 08:59 08/11/17 07:47 500 MCG Ropinirole HCl (Requip Tab) 5 mg DAILY PO 08/09/17 09:00 09/08/17 08:59 08/11/17 07:46 5 MG Sertraline HCl (Zoloft Tab) 25 mg DAILY PO 08/09/17 09:00 09/08/17 08:59 08/11/17 07:48 25 MG Tramadol HCl (Ultram Tab) 100 mg Q6 PRN PO 08/09/17 06:45 09/08/17 06:44 08/11/17 14:22 100 MG Ferrous Sulfate (Feosol Tab) 325 mg DAILY PO 08/09/17 09:00 09/08/17 08:59 08/11/17 07:48 325 MG Miscellaneous Information (Order Awaiting Action) 1 ea QS N/A 08/09/17 08:00 09/08/17 07:59 08/10/17 16:00 1 EA Pantoprazole Sodium (Protonix Tab) 40 mg QAM PO 08/09/17 09:00 09/08/17 08:59 08/11/17 07:48 40 MG Miscellaneous Information (Order Awaiting Action) 1 ea QS N/A 08/09/17 08:00 09/08/17 07:59 08/10/17 16:00 1 EA Miscellaneous (Remove Lidoderm Patch) 1 ea DAILY@21 N/A 08/09/17 21:00 09/08/17 20:59 08/10/17 20:30 1 EA Amoxicillin/ Clavulanate Potassium (Augmentin Tab) 875 mg BIDM PO 08/09/17 08:15 08/19/17 08:14 Future Hold 08/10/17 09:13 875 MG Miscellaneous Information (Consult) 1 ea UD PRN N/A 08/10/17 12:00 09/09/17 11:59 Ampicillin Sodium/ Sulbactam Sodium 3000 mg/Sodium Chloride 108 ml @ 200 mls/hr Q6H IV 08/10/17 14:00 08/12/17 13:59 08/11/17 14:21 200 MLS/HR Hydromorphone HCl (Dilaudid Inj) 0.5 mg Q8 PRN IV 08/10/17 15:30 08/23/17 08:29 08/11/17 07:04 0.5 MG Levalbuterol (Xopenex 1.25MG/ 3ML Neb) 1.25 mg QID PRN INH 08/11/17 09:45 09/10/17 09:44 Vancomycin HCl 1500 mg/Sodium Chloride 530 ml @ 200 mls/hr Q20H IV 08/12/17 00:00 08/14/17 00:00 Review of Systems Constitutional: + problem reported (morbidly obese) Integumentary: + problem reported (multiple skin lesions old scars all over shoulder and arm upper body) Physical Exam Date Time Temp Pulse Resp B/P (MAP) Pulse Ox O2 Delivery O2 Flow Rate FiO2 08/11/17 16:00 Nasal Cannula 4.0 08/11/17 15:41 36.9 76 20 159/74 (102) 100 Nasal Cannula 4.0 08/11/17 11:47 37.1 74 20 144/75 (98) 100 Nasal Cannula 4.0 08/11/17 11:40 36.5 73 18 144/105 (118) 93 Nasal Cannula 4.0 08/11/17 08:00 Nasal Cannula 4.0 CPAP 08/11/17 07:58 100 CPAP 08/11/17 07:42 36.5 81 18 153/105 (121) 100 Nasal Cannula 4.0 08/11/17 04:00 CPAP 08/11/17 03:30 36.5 71 18 159/78 (105) 90 08/11/17 00:03 36.7 72 18 125/72 (89) 92 08/11/17 00:00 92 CPAP 08/10/17 20:00 100 CPAP 08/10/17 19:10 76 20 7 BiPAP/CPAP 6.0 08/10/17 19:10 37.0 77 20 164/77 (106) 100 Nebulizer 8.0 General Appearance: no apparent distress, + obese Head: normocephalic Extremities/Musculoskelatal: + pertinent finding (right shoulder smooth range of motion no crepitation minimal pain with rotation with arm at the side has pain when I raise her arm overhead humeral head moves with the shaft without any instability. There is no bruising or swelling. She has tenderness over the acromioclavicular joint. I can passively raise her arm 120 overhead. She can actively raise her arm 80 and abduction. She has some generalized decreased strength in external rotation and abduction. Internal rotation strength is good.) Laboratory Results Last 24 Hours Test 08/10/17 18:01 08/11/17 06:05 Hemoglobin 8.7 g/dL 8.3 g/dL Hematocrit 28.3 % 27.5 % White Blood Count 10.34 K/uL Red Blood Count 2.79 M/uL Mean Corpuscular Volume 98.6 fL Mean Corpuscular Hemoglobin 29.7 pg Mean Corpuscular Hemoglobin Concent 30.2 g/dl RDW Standard Deviation 58.0 fL RDW Coefficient of Variation 15.9 % Platelet Count 178 K/uL Mean Platelet Volume 8.4 fL Nucleated RBC Absolute Count (auto) 0.03 K/uL Nucleated Red Blood Cells % 0.3 % Sodium Level 137 mmol/L Potassium Level 4.3 mmol/L Chloride Level 96 mmol/L Carbon Dioxide Level 38 mmol/L Anion Gap 3.0 mmol/L Blood Urea Nitrogen 22 mg/dl Creatinine 1.36 mg/dl Est Creatinine Clear Calc Drug Dose 47.9 ml/min Estimated GFR () 45.9 Estimated GFR (Non- 39.6 BUN/Creatinine Ratio 15.8 Random Glucose 92 mg/dl Calcium Level 9.5 mg/dl Assessment & Plan Possible hairline fracture humerus metaphysis. This is adjacent to an area of thinning of the cortical bone which is likely stress shielding and bone loss. She has well fixed humeral and glenoid components. She could have some recurrent tearing of the rotator cuff based on her function. Fracture should be stable. Plan is nonoperative treatment. Would recommend a sling immobilizer to be worn for 3 more weeks for support. She can come out of the sling for elbow range of motion. Patient is not a good candidate for any future surgery due to health history. Would recommend physical therapy after serial x-rays obtained to document healing of the fracture and stability of the humerus. Would recommend follow-up as an outpatient 3 weeks with x-rays of her shoulder.
--- NOTE | 2017-08-11 19:39 | Progress Note ---
Medicine Progress Note Date & Time of Visit: Aug 11, 2017 at 10:31. Subjective Pt was seen and examined Sitting in bed with no distress When I saw pt early, she said that she feels fine She did not have any complaints when i went back to see her, daughter was there daughter said that she is having a lot of pain, but pt was comfortable sitting in bed Daughter said that she wants her to have the colonoscopy done in this admission As per GI they wanted to get it done as an outpatient when pt is more stable I explained to daughter that her H/H has been stable and pt has been tolerated her diet Objective Last 8 Hrs Date Time Temp Pulse Resp B/P (MAP) Pulse Ox O2 Delivery O2 Flow Rate FiO2 08/11/17 16:00 Nasal Cannula 4.0 08/11/17 15:41 36.9 76 20 159/74 (102) 100 Nasal Cannula 4.0 08/11/17 11:47 37.1 74 20 144/75 (98) 100 Nasal Cannula 4.0 08/11/17 11:40 36.5 73 18 144/105 (118) 93 Nasal Cannula 4.0 Physical Exam: General- No acute distress Head- atraumatic Eyes- PERRL, EOMI ENT- oropharynx clear Neck- supple, no JVD Lungs- No wheezing Heart- regular rhythm Abdomen- normal bowel sounds, soft Extremities- no calf tenderness, dressing in RLE Neuro- alert, oriented, PERRL, EOMI; no facial palsy Skin- warm & dry Laboratory Results: Last 24 Hours Test 08/11/17 06:05 White Blood Count 10.34 K/uL Red Blood Count 2.79 M/uL Hemoglobin 8.3 g/dL Hematocrit 27.5 % Mean Corpuscular Volume 98.6 fL Mean Corpuscular Hemoglobin 29.7 pg Mean Corpuscular Hemoglobin Concent 30.2 g/dl RDW Standard Deviation 58.0 fL RDW Coefficient of Variation 15.9 % Platelet Count 178 K/uL Mean Platelet Volume 8.4 fL Nucleated RBC Absolute Count (auto) 0.03 K/uL Nucleated Red Blood Cells % 0.3 % Sodium Level 137 mmol/L Potassium Level 4.3 mmol/L Chloride Level 96 mmol/L Carbon Dioxide Level 38 mmol/L Anion Gap 3.0 mmol/L Blood Urea Nitrogen 22 mg/dl Creatinine 1.36 mg/dl Est Creatinine Clear Calc Drug Dose 47.9 ml/min Estimated GFR () 45.9 Estimated GFR (Non- 39.6 BUN/Creatinine Ratio 15.8 Random Glucose 92 mg/dl Calcium Level 9.5 mg/dl Assessment & Plan BRIGHT RED BLOOD PER RECTUM Hb on admission 8 CT abd w/o contrast showed Limited diverticulosis without evidence of diverticulitis. No bowel obstruction or convincing evidence of acute intra- abdominal Received 1 unit PRBC during hospital course Tolerated diet Hg stable Continue holding ASA GI on board GI recommended colonoscopy as an outpatient Will continue to monitor h/h RIGHT LEG HEMATOMA/ABSCESS S/P Fall 3 weeks ago Afebrile, no leukocytosis S/P I&D day [address] Michelle wound cx no growth On Vanco and Unasyn for the abscess, will tomorrow Resume Augmentin tomorrow Surgery on board Continue daily wound care Wound care provider consulted ACUTE RENAL FAILURE ON CKD 3 Likely pre renal Creatine improved to 1.3 today Monitor BMP RIGHT SHOULDER PAIN U/S showed mild motion artifact and metallic artifact within the shoulder resulting in difficult evaluation of the humeral neck. However, there is suggestion of a subtle cortical lucency at the humeral neck. Ortho consulting Recommending sling for the LUE, and follow up with ortho in 3 weeks Continue PT/OT COPD Not in any exacerbation Continue CPAP Continue Neb treatment Stable History atrial fibrillation rate control Not on Coumadin On metoprolol Depression and anxiety Continue with current medications. Stable Hypothyroidism Continue with replacement. DVT On SCDs due hematoma CODE STATUS FULL CODE DISPOSITION TRANSFER TO MEDICAL Consultants: Gastro Surgery Procedures: I&D Current Inpatient Medications: Current Inpatient Medications Medications (Trade) Dose Ordered Sig/Rupinder Route Start Time Stop Time Status Last Admin Dose Admin Ioversol (Optiray 320) 100 ml UD PRN IV 08/09/17 06:00 08/13/17 05:59 Acetaminophen (Tylenol Tab) 650 mg Q4H PRN PO 08/09/17 06:30 09/08/17 06:29 08/11/17 16:13 650 MG Ondansetron HCl (Zofran Inj) 4 mg Q6H PRN IV 08/09/17 06:30 09/08/17 06:29 08/11/17 10:00 4 MG Albuterol (Ventolin Hfa Inhaler) 2 puffs Q6H INH 08/09/17 12:00 09/08/17 11:59 08/11/17 18:08 2 PUFFS Allopurinol (Zyloprim Tab) 300 mg DAILY PO 08/09/17 09:00 09/08/17 08:59 08/11/17 07:48 300 MG Atorvastatin Calcium (Lipitor Tab) 20 mg DAILY PO 08/09/17 09:00 09/08/17 08:59 08/11/17 07:48 20 MG Benzonatate (Tessalon Perles Cap) 100 mg TID PRN PO 08/09/17 06:45 09/08/17 06:44 Bumetanide (Bumex Tab) 1 mg BID PO 08/09/17 09:00 09/08/17 08:59 08/11/17 07:47 1 MG Cholecalciferol (Vitamin D Tab) 2,000 inter.unit DAILY PO 08/09/17 09:00 09/08/17 08:59 08/11/17 07:48 2,000 INTER.UNIT Gabapentin (Neurontin Cap) 300 mg TID PO 08/09/17 09:00 09/08/17 08:59 08/11/17 14:21 300 MG Levothyroxine Sodium (Synthroid Tab) 88 mcg DAILYBB PO 08/09/17 08:15 09/08/17 08:14 08/11/17 06:04 88 MCG Lidocaine (Lidoderm Patch 5%) 1 patch QAM TD 08/09/17 09:00 09/08/17 08:59 08/11/17 07:48 1 PATCH Losartan Potassium (coZAAR TAB) 50 mg DAILY PO 08/09/17 09:00 09/08/17 08:59 08/11/17 07:46 50 MG Metoprolol Succinate (Toprol Xl Tab) 50 mg DAILY PO 08/09/17 09:00 09/08/17 08:59 08/11/17 07:46 50 MG Multivitamins/ Minerals (Multivitamin W/ Minerals Tab) 1 tab DAILY PO 08/09/17 09:00 09/08/17 08:59 08/11/17 07:45 1 TAB Potassium Chloride (Klor-Con Tab) 20 meq BID17 PO 08/09/17 09:00 09/08/17 08:59 08/11/17 17:15 20 MEQ Prednisone (PredniSONE TAB) 10 mg DAILY PO 08/09/17 09:00 09/08/17 08:59 08/11/17 07:46 10 MG Propafenone HCl (Rythmol Tab) 150 mg TID PO 08/09/17 09:00 09/08/17 08:59 08/11/17 14:21 150 MG Ranitidine HCl (zANTac TAB) 150 mg BID PO 08/09/17 09:00 09/08/17 08:59 08/11/17 07:48 150 MG Roflumilast (Daliresp Tab) 500 mcg DAILY PO 08/09/17 09:00 09/08/17 08:59 08/11/17 07:47 500 MCG Ropinirole HCl (Requip Tab) 5 mg DAILY PO 08/09/17 09:00 09/08/17 08:59 08/11/17 07:46 5 MG Sertraline HCl (Zoloft Tab) 25 mg DAILY PO 08/09/17 09:00 09/08/17 08:59 08/11/17 07:48 25 MG Tramadol HCl (Ultram Tab) 100 mg Q6 PRN PO 08/09/17 06:45 09/08/17 06:44 08/11/17 14:22 100 MG Ferrous Sulfate (Feosol Tab) 325 mg DAILY PO 08/09/17 09:00 09/08/17 08:59 08/11/17 07:48 325 MG Miscellaneous Information (Order Awaiting Action) 1 ea QS N/A 08/09/17 08:00 09/08/17 07:59 08/10/17 16:00 1 EA Pantoprazole Sodium (Protonix Tab) 40 mg QAM PO 08/09/17 09:00 09/08/17 08:59 08/11/17 07:48 40 MG Miscellaneous Information (Order Awaiting Action) 1 ea QS N/A 08/09/17 08:00 09/08/17 07:59 08/10/17 16:00 1 EA Miscellaneous (Remove Lidoderm Patch) 1 ea DAILY@21 N/A 08/09/17 21:00 09/08/17 20:59 08/10/17 20:30 1 EA Amoxicillin/ Clavulanate Potassium (Augmentin Tab) 875 mg BIDM PO 08/09/17 08:15 08/19/17 08:14 Future Hold 08/10/17 09:13 875 MG Miscellaneous Information (Consult) 1 ea UD PRN N/A 08/10/17 12:00 09/09/17 11:59 Ampicillin Sodium/ Sulbactam Sodium 3000 mg/Sodium Chloride 108 ml @ 200 mls/hr Q6H IV 08/10/17 14:00 08/12/17 13:59 08/11/17 14:21 200 MLS/HR Hydromorphone HCl (Dilaudid Inj) 0.5 mg Q8 PRN IV 08/10/17 15:30 08/23/17 08:29 08/11/17 07:04 0.5 MG Levalbuterol (Xopenex 1.25MG/ 3ML Neb) 1.25 mg QID PRN INH 08/11/17 09:45 09/10/17 09:44 Vancomycin HCl 1500 mg/Sodium Chloride 530 ml @ 200 mls/hr Q20H IV 08/12/17 00:00 08/14/17 00:00
[2017-08-12] MEDS ORDERED: VANCOMYCIN INJ 1,500 MG in SODIUM CHLORIDE 0.9% 500ML 500 ML IV SCH ×2
[2017-08-12] MEDS: HYDROmorphone INJ 0.5 MG/0.5 ML SYR IV PRN ×2 (00:44→08:52)
[2017-08-12] MEDS: AMPICILLIN/SULBACTAM SOD INJ 3,000 MG in SODIUM CHLORIDE 0.9% 100ML 100 ML IV SCH ×2 (02:39→08:00)
[2017-08-12] MEDS: LEVOTHYROXINE 88 MCG TAB PO SCH (05:55)
[2017-08-12] MEDS: ALBUTEROL HFA 8 GM INHALER INH SCH ×4 (05:56→23:28)
[2017-08-12] MEDS: TRAMADOL HCL 50 MG TAB PO PRN (05:59)
[2017-08-12 06:19] LABS: HEMATOCRIT 29.6 % (37-47); MEAN CELL VOLUME 98.7 fL (80-100); MEAN CORPUSCULAR HGB CONC 30.4 g/dl (32-36); PLATELET COUNT 213 K/uL (130-400); RED CELL DISTRIBUTION WIDTH CV 15.9 % (11.5-14.5); RED CELL DISTRIBUTION WIDTH SD 57.5 fL (36.4-46.3); WHITE BLOOD COUNT 12.33 K/uL (4.8-10.8)
[2017-08-12 06:57] LABS: CALCIUM 9.5 mg/dl (8.5-10.1); CREATININE 1.35 mg/dl (0.60-1.20); POTASSIUM 3.5 mmol/L (3.5-5.1)
[2017-08-12] MEDS: LOSARTAN POTASSIUM 50 MG TAB PO SCH (07:32)
[2017-08-12] MEDS: FERROUS SULFATE 325 MG TAB PO SCH (07:32)
[2017-08-12] MEDS: METOPROLOL SUCC 50MG EXT REL TAB PO SCH (07:32)
[2017-08-12] MEDS: CEROVITE ADV FORMULA TAB PO SCH (07:32)
[2017-08-12] MEDS: ALLOPURINOL 300 MG TAB PO SCH (07:33)
[2017-08-12] MEDS: SERTRALINE HCL 50 MG TAB PO SCH (07:33)
[2017-08-12] MEDS: ATORVASTATIN 20 MG TAB PO SCH (07:33)
[2017-08-12] MEDS: PANTOprazole SOD 40 MG TAB PO SCH (07:33)
[2017-08-12] MEDS: GABAPENTIN 300 MG CAP PO SCH ×3 (07:34→20:56)
[2017-08-12] MEDS: ROPINIROLE HCL 5 MG TAB PO SCH (07:34)
[2017-08-12] MEDS: CHOLECALCIFEROL 1000 INTER.UNIT TAB PO SCH (07:34)
[2017-08-12] MEDS: ROFLUMILAST 500 MCG TAB PO SCH (07:34)
[2017-08-12] MEDS: RANITIDINE HCL 150 MG TAB PO SCH ×2 (07:34→20:57)
[2017-08-12] MEDS: POTASSIUM CHLORIDE 20 MEQ TABCR PO SCH ×2 (07:35→17:54)
[2017-08-12] MEDS: BUMETANIDE 1 MG TAB PO SCH ×2 (07:36→20:57)
[2017-08-12] MEDS: PROPAFENONE HCL 150 MG TAB PO SCH ×3 (07:36→20:51)
[2017-08-12] MEDS: LIDODERM (LIDOCAINE) PATCH 5% TD SCH (07:38)
[2017-08-12 07:39] VITALS: BP 134/71; PULSE 78; TEMP 36.6; O2SAT 99
--- NOTE | 2017-08-12 14:25 | Wound Consultation: Inpatient ---
Wound Consultation Date of Consultation: Aug 12, 2017. Attending Physician: Tomasz Perscott M.D. Reason for Consultation: Hematoma right lower extremity History of Present Illness Patient was recently admitted for evaluation of rectal bleeding. Patient states she fell approximately 3 weeks ago injuring her right lower leg. Patient was subsequently seen by surgery during her hospitalization and an initial evacuation of hematoma was performed. Patient currently denies any significant pain in the area except with touch. Patient denies any fever chills or night sweats. Patient currently denies any other systemic complaints. Family History Diabetes mellitus MOTHER FH: CAD (coronary artery disease) MOTHER SISTER Social History Smoking Status: Former Smoker Drug Use: none Marital Status: single Housing Status: lives with family Occupation Status: retired Allergies Coded Allergies: Adhesives (Verified Allergy, Severe, RED RASH, 07/27/17) Latex1 -Allergic Contact Dermititis (Verified Adverse Reaction, Mild, TAPE -SORE, 07/27/17) Morphine (Verified Adverse Reaction, Mild, DELUSIONS, 07/27/17) Home Medications Scheduled Albuterol Hfa (Ventolin Hfa), 2-4 PUFFS INH Q6H Allopurinol (Zyloprim), 300 MG PO DAILY Aspirin (Aspirin Ec), 81 MG PO DAILY Atorvastatin (Lipitor), 20 MG PO DAILY Bumetanide (Bumex), 1 TAB PO BID Cholecalciferol (Vitamin D3), 2,000 INTER.UNIT PO DAILY Ferrous Sulfate (Ferrous Sulfate), 325 MG PO DAILY Fluticasone Furoate-Vilanterol (Breo Ellipta 200-25 Mcg/INH), 1 PUFF INH DAILY Fluticasone Furoate-Vilanterol (Breo Ellipta 200-25 Mcg/INH), Unknown Dose INH DAILY Gabapentin (Neurontin), 300 MG PO TID Levalbuterol Hcl (Levalbuterol Hcl), 1.25 MG INH QID Levothyroxine Sodium (Synthroid), 88 MCG PO DAILY Lidocaine (Lidocaine), 1 PATCH TD QAM Losartan Potassium (Cozaar), 50 MG PO DAILY Metolazone (Metolazone), 2.5 MG PO UD Metoprolol Succinate (Toprol Xl), 50 MG PO DAILY Multivitamins/Minerals (Certavite/Antioxidants), 1 TAB PO DAILY Omeprazole (Prilosec), 1 CAP PO DAILY Potassium Ext Rel (Klor-Con), 20 MEQ PO BID Prednisone (Prednisone), 10 MG PO DAILY Propafenone Hcl (Propafenone Hcl), 150 MG PO TID Ranitidine (Zantac), 150 MG PO BID Roflumilast (Daliresp), 1 TAB PO DAILY Ropinirole (Requip), 5 MG PO DAILY Sertraline (Zoloft), 25 MG PO DAILY Umeclidinium [place] (Incruse Ellipta), 1 PUFF INH DAILY Scheduled PRN Acetaminophen (Tylenol), 650 MG PO Q4H PRN for Pain or Fever Benzonatate (Tessalon Perles), 100 MG PO TID PRN for Cough Tramadol HCl (Tramadol HCl), 100 MG PO Q6 PRN for Pain Inpatient Medications Current Inpatient Medications Medications (Trade) Dose Ordered Sig/Rupinder Route Start Time Stop Time Status Last Admin Dose Admin Ioversol (Optiray 320) 100 ml UD PRN IV 08/09/17 06:00 08/13/17 05:59 Acetaminophen (Tylenol Tab) 650 mg Q4H PRN PO 08/09/17 06:30 09/08/17 06:29 08/11/17 16:13 650 MG Ondansetron HCl (Zofran Inj) 4 mg Q6H PRN IV 08/09/17 06:30 09/08/17 06:29 08/11/17 20:21 4 MG Albuterol (Ventolin Hfa Inhaler) 2 puffs Q6H INH 08/09/17 12:00 09/08/17 11:59 08/12/17 12:15 2 PUFFS Allopurinol (Zyloprim Tab) 300 mg DAILY PO 08/09/17 09:00 09/08/17 08:59 08/12/17 07:33 300 MG Atorvastatin Calcium (Lipitor Tab) 20 mg DAILY PO 08/09/17 09:00 09/08/17 08:59 08/12/17 07:33 20 MG Benzonatate (Tessalon Perles Cap) 100 mg TID PRN PO 08/09/17 06:45 09/08/17 06:44 Bumetanide (Bumex Tab) 1 mg BID PO 08/09/17 09:00 09/08/17 08:59 08/12/17 07:36 1 MG Cholecalciferol (Vitamin D Tab) 2,000 inter.unit DAILY PO 08/09/17 09:00 09/08/17 08:59 08/12/17 07:34 2,000 INTER.UNIT Gabapentin (Neurontin Cap) 300 mg TID PO 08/09/17 09:00 09/08/17 08:59 08/12/17 14:14 300 MG Levothyroxine Sodium (Synthroid Tab) 88 mcg DAILYBB PO 08/09/17 08:15 09/08/17 08:14 08/12/17 05:55 88 MCG Lidocaine (Lidoderm Patch 5%) 1 patch QAM TD 08/09/17 09:00 09/08/17 08:59 08/11/17 07:48 1 PATCH Losartan Potassium (coZAAR TAB) 50 mg DAILY PO 08/09/17 09:00 09/08/17 08:59 08/12/17 07:32 50 MG Metoprolol Succinate (Toprol Xl Tab) 50 mg DAILY PO 08/09/17 09:00 09/08/17 08:59 08/12/17 07:32 50 MG Multivitamins/ Minerals (Multivitamin W/ Minerals Tab) 1 tab DAILY PO 08/09/17 09:00 09/08/17 08:59 08/12/17 07:32 1 TAB Potassium Chloride (Klor-Con Tab) 20 meq BID17 PO 08/09/17 09:00 09/08/17 08:59 08/12/17 07:35 20 MEQ Prednisone (PredniSONE TAB) 10 mg DAILY PO 08/09/17 09:00 09/08/17 08:59 08/12/17 07:35 10 MG Propafenone HCl (Rythmol Tab) 150 mg TID PO 08/09/17 09:00 09/08/17 08:59 08/12/17 14:14 150 MG Ranitidine HCl (zANTac TAB) 150 mg BID PO 08/09/17 09:00 09/08/17 08:59 08/12/17 07:34 150 MG Roflumilast (Daliresp Tab) 500 mcg DAILY PO 08/09/17 09:00 09/08/17 08:59 08/12/17 07:34 500 MCG Ropinirole HCl (Requip Tab) 5 mg DAILY PO 08/09/17 09:00 09/08/17 08:59 08/12/17 07:34 5 MG Sertraline HCl (Zoloft Tab) 25 mg DAILY PO 08/09/17 09:00 09/08/17 08:59 08/12/17 07:33 25 MG Tramadol HCl (Ultram Tab) 100 mg Q6 PRN PO 08/09/17 06:45 09/08/17 06:44 08/12/17 05:59 100 MG Ferrous Sulfate (Feosol Tab) 325 mg DAILY PO 08/09/17 09:00 09/08/17 08:59 08/12/17 07:32 325 MG Miscellaneous Information (Order Awaiting Action) 1 ea QS N/A 08/09/17 08:00 09/08/17 07:59 08/10/17 16:00 1 EA Pantoprazole Sodium (Protonix Tab) 40 mg QAM PO 08/09/17 09:00 09/08/17 08:59 08/12/17 07:33 40 MG Miscellaneous Information (Order Awaiting Action) 1 ea QS N/A 08/09/17 08:00 09/08/17 07:59 08/10/17 16:00 1 EA Miscellaneous (Remove Lidoderm Patch) 1 ea DAILY@21 N/A 08/09/17 21:00 09/08/17 20:59 08/11/17 19:42 1 EA Amoxicillin/ Clavulanate Potassium (Augmentin Tab) 875 mg BIDM PO 08/09/17 08:15 08/19/17 08:14 Future hold 08/10/17 09:13 875 MG Hydromorphone HCl (Dilaudid Inj) 0.5 mg Q8 PRN IV 08/10/17 15:30 08/23/17 08:29 08/12/17 08:52 0.5 MG Levalbuterol (Xopenex 1.25MG/ 3ML Neb) 1.25 mg QID PRN INH 08/11/17 09:45 09/10/17 09:44 Physical Exam Date Time Temp Pulse Resp B/P (MAP) Pulse Ox O2 Delivery O2 Flow Rate FiO2 08/12/17 08:00 Nasal Cannula 4.0 08/12/17 07:39 36.6 78 18 134/71 (92) 99 Nasal Cannula 4.0 Humidified Oxygen 08/12/17 00:00 CPAP 3.0 08/11/17 22:49 36.6 72 20 153/78 (103) 100 4.0 08/11/17 21:46 36.8 80 20 91 4.0 08/11/17 20:00 91 CPAP 4.0 08/11/17 19:41 36.8 80 20 156/70 (98) 91 CPAP 08/11/17 16:00 Nasal Cannula 4.0 08/11/17 15:41 36.9 76 20 159/74 (102) 100 Nasal Cannula 4.0 General: The patient is lying in a hospital bed in no distress. Alert, cooperative and appropriate to all questions. HEENT: Pupils equal and reactive to light. Sclera clear, EOM intact. Neck: Supple, No JVD noted Chest: CTA in all valdez. No deformity Heart: RRR without murmurs, S3, S4, thrills, rubs or heaves Extremities: Postoperative surgical wound is noted in the right lower extremity distal lateral aspect. There is clot present in the base of the open incision. There is some surrounding tenderness or fluctuance noted. No significant periwound erythema present. No active drainage or odor noted. Distal neurovascular bundles intact. Neurological: Alert and oriented x3. No focal deficits. Laboratory Results Last 24 Hours Test 08/12/17 05:40 White Blood Count 12.33 K/uL Red Blood Count 3.00 M/uL Hemoglobin 9.0 g/dL Hematocrit 29.6 % Mean Corpuscular Volume 98.7 fL Mean Corpuscular Hemoglobin 30.0 pg Mean Corpuscular Hemoglobin Concent 30.4 g/dl RDW Standard Deviation 57.5 fL RDW Coefficient of Variation 15.9 % Platelet Count 213 K/uL Mean Platelet Volume 9.0 fL Sodium Level 137 mmol/L Potassium Level 3.5 mmol/L Chloride Level 95 mmol/L Carbon Dioxide Level 39 mmol/L Anion Gap 3.0 mmol/L Blood Urea Nitrogen 16 mg/dl Creatinine 1.35 mg/dl Est Creatinine Clear Calc Drug Dose 48.3 ml/min Estimated GFR () 46.3 Estimated GFR (Non- 40.0 BUN/Creatinine Ratio 11.8 Random Glucose 80 mg/dl Calcium Level 9.5 mg/dl Assessment & Plan Assessment: Hematoma right lower extremity Plan: At this time the remaining hematoma in the right lower extremity did require removal. With the patient's permission the site was prepped with Betadine and local infiltration of lidocaine 2% with epinephrine was performed. The remaining hematoma was removed with a combination of blunt dissection and copious irrigation with normal saline. An additional extension of the incision was made in order to facilitate VAC therapy. Final measurements were 3.9 x 1 x 1.1 cm with undermining present between 12 and 6:00 of 3.2 cm. Minimal bleeding did occur which was controlled with direct pressure. The site was packed at the present time with Mattie and gauze. This will be replaced with irrigating wound VAC later this afternoon. VAC will be set at irrigation 10 minutes normal saline and 2 hours of black foam 125 mm of negative pressure. This will be continued for the next 24 hours and then replaced with a home VAC black foam 125 mm of negative pressure wound VAC change Wednesday. Patient will be reevaluated in the wound clinic next week. Patient's course of therapy will continue to be monitored during her hospitalization. This represented an evacuation of hematoma right lower extremity.
[2017-08-12] MEDS ORDERED: AMOXICILLIN/CLAVULANATE TAB 875 MG TAB PO ONE (14:42)
[2017-08-12 15:12] VITALS: BP 176/83; PULSE 91; TEMP 36.2; O2SAT 100
[2017-08-12] MEDS: OXYCODONE/ACETAMINOPHEN 5-325 TAB PO PRN ×2 (15:15→20:56)
[2017-08-12 16:00] VITALS: O2SAT 100
--- NOTE | 2017-08-12 16:39 | Progress Note ---
Medicine Progress Note Date & Time of Visit: Aug 12, 2017 at 11:31. Subjective Pt was seen and examined Lying in bed with no distress Pt said that she does not have any abdominal pain She said that she is having back pain Denies any chest pain, palpitation,dizziness and SOB Objective Last 8 Hrs Date Time Temp Pulse Resp B/P (MAP) Pulse Ox O2 Delivery O2 Flow Rate FiO2 08/12/17 15:12 36.2 91 19 176/83 (114) 100 Nasal Cannula 4.0 Physical Exam: General- No acute distress Head- atraumatic Eyes- PERRL, EOMI ENT- oropharynx clear Neck- supple, no JVD Lungs- No wheezing Heart- regular rhythm Abdomen- normal bowel sounds, soft Extremities- no calf tenderness, dressing in RLE Neuro- alert, oriented, PERRL, EOMI; no facial palsy Skin- warm & dry Laboratory Results: Last 24 Hours Test 08/12/17 05:40 White Blood Count 12.33 K/uL Red Blood Count 3.00 M/uL Hemoglobin 9.0 g/dL Hematocrit 29.6 % Mean Corpuscular Volume 98.7 fL Mean Corpuscular Hemoglobin 30.0 pg Mean Corpuscular Hemoglobin Concent 30.4 g/dl RDW Standard Deviation 57.5 fL RDW Coefficient of Variation 15.9 % Platelet Count 213 K/uL Mean Platelet Volume 9.0 fL Sodium Level 137 mmol/L Potassium Level 3.5 mmol/L Chloride Level 95 mmol/L Carbon Dioxide Level 39 mmol/L Anion Gap 3.0 mmol/L Blood Urea Nitrogen 16 mg/dl Creatinine 1.35 mg/dl Est Creatinine Clear Calc Drug Dose 48.3 ml/min Estimated GFR () 46.3 Estimated GFR (Non- 40.0 BUN/Creatinine Ratio 11.8 Random Glucose 80 mg/dl Calcium Level 9.5 mg/dl Assessment & Plan BRIGHT RED BLOOD PER RECTUM Hb on admission 8 CT abd w/o contrast showed Limited diverticulosis without evidence of diverticulitis. No bowel obstruction or convincing evidence of acute intra- abdominal Received 1 unit PRBC during hospital course Tolerated diet Hg increased from 8.3 to 9 today Continue holding ASA GI on board GI recommended colonoscopy as an outpatient once pt fully recovers from acute illness Will continue to monitor h/h RIGHT LEG HEMATOMA/ABSCESS S/P Fall 3 weeks ago Afebrile, no leukocytosis S/P I&D day [address] Michelle wound cx no growth On Vanco and Unasyn for the abscess D/C today since wound cx no growth Resume Augmentin Surgery on board Case discussed with wound care provider Wound vac applied and recommended to monitor for 24hrs Will discharge to rehab with wound vac to be changed on Wed/Wed/Wednesday Follow up with wound care clinic on discharge Continue daily wound care ACUTE RENAL FAILURE ON CKD 3 Likely pre renal Creatine stable 1.3 today Monitor BMP RIGHT SHOULDER PAIN U/S showed mild motion artifact and metallic artifact within the shoulder resulting in difficult evaluation of the humeral neck. However, there is suggestion of a subtle cortical lucency at the humeral neck. Ortho consulting Recommending sling for the LUE, and follow up with ortho in 3 weeks Continue PT/OT BACK PAIN On percocet prn COPD Not in any exacerbation Continue CPAP Continue Neb treatment Stable History atrial fibrillation rate control Not on Coumadin On metoprolol Depression and anxiety Continue with current medications. Stable Hypothyroidism Continue with replacement. DVT On SCDs due hematoma CODE STATUS FULL CODE DISPOSITION Will discharge to rehab tomorrow Consultants: Gastro Surgery Procedures: I&D Current Inpatient Medications: Current Inpatient Medications Medications (Trade) Dose Ordered Sig/Rupinder Route Start Time Stop Time Status Last Admin Dose Admin Ioversol (Optiray 320) 100 ml UD PRN IV 08/09/17 06:00 08/13/17 05:59 Acetaminophen (Tylenol Tab) 650 mg Q4H PRN PO 08/09/17 06:30 09/08/17 06:29 08/11/17 16:13 650 MG Ondansetron HCl (Zofran Inj) 4 mg Q6H PRN IV 08/09/17 06:30 09/08/17 06:29 08/11/17 20:21 4 MG Albuterol (Ventolin Hfa Inhaler) 2 puffs Q6H INH 08/09/17 12:00 09/08/17 11:59 08/12/17 12:15 2 PUFFS Allopurinol (Zyloprim Tab) 300 mg DAILY PO 08/09/17 09:00 09/08/17 08:59 08/12/17 07:33 300 MG Atorvastatin Calcium (Lipitor Tab) 20 mg DAILY PO 08/09/17 09:00 09/08/17 08:59 08/12/17 07:33 20 MG Benzonatate (Tessalon Perles Cap) 100 mg TID PRN PO 08/09/17 06:45 09/08/17 06:44 Bumetanide (Bumex Tab) 1 mg BID PO 08/09/17 09:00 09/08/17 08:59 08/12/17 07:36 1 MG Cholecalciferol (Vitamin D Tab) 2,000 inter.unit DAILY PO 08/09/17 09:00 09/08/17 08:59 08/12/17 07:34 2,000 INTER.UNIT Gabapentin (Neurontin Cap) 300 mg TID PO 08/09/17 09:00 09/08/17 08:59 08/12/17 14:14 300 MG Levothyroxine Sodium (Synthroid Tab) 88 mcg DAILYBB PO 08/09/17 08:15 09/08/17 08:14 08/12/17 05:55 88 MCG Lidocaine (Lidoderm Patch 5%) 1 patch QAM TD 08/09/17 09:00 09/08/17 08:59 08/11/17 07:48 1 PATCH Losartan Potassium (coZAAR TAB) 50 mg DAILY PO 08/09/17 09:00 09/08/17 08:59 08/12/17 07:32 50 MG Metoprolol Succinate (Toprol Xl Tab) 50 mg DAILY PO 08/09/17 09:00 09/08/17 08:59 08/12/17 07:32 50 MG Multivitamins/ Minerals (Multivitamin W/ Minerals Tab) 1 tab DAILY PO 08/09/17 09:00 09/08/17 08:59 08/12/17 07:32 1 TAB Potassium Chloride (Klor-Con Tab) 20 meq BID17 PO 08/09/17 09:00 09/08/17 08:59 08/12/17 07:35 20 MEQ Prednisone (PredniSONE TAB) 10 mg DAILY PO 08/09/17 09:00 09/08/17 08:59 08/12/17 07:35 10 MG Propafenone HCl (Rythmol Tab) 150 mg TID PO 08/09/17 09:00 09/08/17 08:59 08/12/17 14:14 150 MG Ranitidine HCl (zANTac TAB) 150 mg BID PO 08/09/17 09:00 09/08/17 08:59 08/12/17 07:34 150 MG Roflumilast (Daliresp Tab) 500 mcg DAILY PO 08/09/17 09:00 09/08/17 08:59 08/12/17 07:34 500 MCG Ropinirole HCl (Requip Tab) 5 mg DAILY PO 08/09/17 09:00 09/08/17 08:59 08/12/17 07:34 5 MG Sertraline HCl (Zoloft Tab) 25 mg DAILY PO 08/09/17 09:00 09/08/17 08:59 08/12/17 07:33 25 MG Tramadol HCl (Ultram Tab) 100 mg Q6 PRN PO 08/09/17 06:45 09/08/17 06:44 08/12/17 05:59 100 MG Ferrous Sulfate (Feosol Tab) 325 mg DAILY PO 08/09/17 09:00 09/08/17 08:59 08/12/17 07:32 325 MG Miscellaneous Information (Order Awaiting Action) 1 ea QS N/A 08/09/17 08:00 09/08/17 07:59 08/10/17 16:00 1 EA Pantoprazole Sodium (Protonix Tab) 40 mg QAM PO 08/09/17 09:00 09/08/17 08:59 08/12/17 07:33 40 MG Miscellaneous Information (Order Awaiting Action) 1 ea QS N/A 08/09/17 08:00 09/08/17 07:59 08/10/17 16:00 1 EA Miscellaneous (Remove Lidoderm Patch) 1 ea DAILY@21 N/A 08/09/17 21:00 09/08/17 20:59 08/11/17 19:42 1 EA Levalbuterol (Xopenex 1.25MG/ 3ML Neb) 1.25 mg QID PRN INH 08/11/17 09:45 09/10/17 09:44 Amoxicillin/ Clavulanate Potassium (Augmentin Tab) 875 mg BIDM PO 08/12/17 17:00 08/22/17 16:59 Oxycodone/ Acetaminophen (Percocet 5-325mg Tab) 1 tab Q6HWA PRN PO 08/12/17 15:00 08/26/17 14:59 08/12/17 15:15 1 TAB
[2017-08-12] MEDS: AMOXICILLIN/CLAVULANATE TAB 875 MG TAB PO SCH (17:55)
[2017-08-12 23:30] VITALS: BP 143/70; PULSE 80; TEMP 36.9; O2SAT 96
[2017-08-13] MEDS: TRAMADOL HCL 50 MG TAB PO PRN ×2 (01:27→08:17)
[2017-08-13] MEDS: ALBUTEROL HFA 8 GM INHALER INH SCH ×2 (05:28→12:11)
[2017-08-13] MEDS: LEVOTHYROXINE 88 MCG TAB PO SCH (05:46)
[2017-08-13] MEDS: OXYCODONE/ACETAMINOPHEN 5-325 TAB PO PRN ×2 (05:48→12:11)
[2017-08-13 07:25] VITALS: BP 154/77; PULSE 76; TEMP 36.8; O2SAT 100
[2017-08-13 07:44] LABS: CREATININE 1.32 mg/dl (0.60-1.20)
[2017-08-13] MEDS: AMOXICILLIN/CLAVULANATE TAB 875 MG TAB PO SCH (07:45)
[2017-08-13] MEDS: BUMETANIDE 1 MG TAB PO SCH (07:45)
[2017-08-13] MEDS: LOSARTAN POTASSIUM 50 MG TAB PO SCH (07:46)
[2017-08-13] MEDS: ROFLUMILAST 500 MCG TAB PO SCH (07:47)
[2017-08-13] MEDS: ROPINIROLE HCL 5 MG TAB PO SCH (07:47)
[2017-08-13] MEDS: SERTRALINE HCL 50 MG TAB PO SCH (07:48)
[2017-08-13] MEDS: LIDODERM (LIDOCAINE) PATCH 5% TD SCH (07:49)
[2017-08-13] MEDS: ALLOPURINOL 300 MG TAB PO SCH (07:49)
[2017-08-13] MEDS: FERROUS SULFATE 325 MG TAB PO SCH (07:49)
[2017-08-13] MEDS: CHOLECALCIFEROL 1000 INTER.UNIT TAB PO SCH (07:50)
[2017-08-13] MEDS: ATORVASTATIN 20 MG TAB PO SCH (07:50)
[2017-08-13] MEDS: POTASSIUM CHLORIDE 20 MEQ TABCR PO SCH (07:51)
[2017-08-13] MEDS: RANITIDINE HCL 150 MG TAB PO SCH (07:52)
[2017-08-13] MEDS: CEROVITE ADV FORMULA TAB PO SCH (07:52)
[2017-08-13] MEDS: METOPROLOL SUCC 50MG EXT REL TAB PO SCH (07:52)
[2017-08-13] MEDS: PROPAFENONE HCL 150 MG TAB PO SCH ×2 (07:53→14:26)
[2017-08-13] MEDS: PANTOprazole SOD 40 MG TAB PO SCH (07:53)
[2017-08-13] MEDS: GABAPENTIN 300 MG CAP PO SCH ×2 (07:53→14:26)
[2017-08-13 08:00] VITALS: O2SAT 100
[2017-08-13] MEDS ORDERED: VANCOMYCIN TROUGH ONE ×2 (09:30→15:30)
--- NOTE | 2017-08-13 12:30 | Progress Note ---
Medicine Progress Note Date & Time of Visit: Aug 13, 2017 at 12:17. Subjective Pt was seen and examined Lying in bed with no distress Pt said that pain her back pain seems to improve with the pain med She said that she does not have any abdominal pain she tolerated her diet and had a normal BM with no blood Denies any chest pain, palpitation, dizziness and SOB Objective Last 8 Hrs Date Time Temp Pulse Resp B/P (MAP) Pulse Ox O2 Delivery O2 Flow Rate FiO2 08/13/17 08:00 100 Nasal Cannula 4.0 08/13/17 07:25 36.8 76 18 154/77 (102) 100 Nasal Cannula 4.0 Physical Exam: General- No acute distress Head- atraumatic Eyes- PERRL, EOMI ENT- oropharynx clear Neck- supple, no JVD Lungs- No wheezing Heart- regular rhythm Abdomen- normal bowel sounds, soft, non tender Extremities- no calf tenderness, RLE with Wound vac Neuro- alert, oriented, PERRL, EOMI; no facial palsy Skin- warm & dry Laboratory Results: Last 24 Hours Test 08/13/17 06:32 Creatinine 1.32 mg/dl Est Creatinine Clear Calc Drug Dose 49.4 ml/min Estimated GFR () 47.6 Estimated GFR (Non- 41.1 Assessment & Plan BRIGHT RED BLOOD PER RECTUM Hb on admission 8 CT abd w/o contrast showed Limited diverticulosis without evidence of diverticulitis. No bowel obstruction or convincing evidence of acute intra- abdominal Received 1 unit PRBC during hospital course Tolerated diet Hg increased from 8.3 to 9 Continue holding ASA Normal BM GI on board GI recommended colonoscopy as an outpatient once pt fully recovers from acute illness check CBC within 1 week RIGHT LEG HEMATOMA/ABSCESS S/P Fall 3 weeks ago Afebrile, no leukocytosis S/P I&D day [address] Michelle wound cx no growth On Vanco and Unasyn for the abscess D/C today since wound cx no growth Resume Augmentin Surgery on board Case discussed with wound care provider Wound vac applied and recommended to monitor for 24hrs Will discharge to rehab with wound vac to be changed on Wed/Wed/Wednesday Follow up with wound care clinic on discharge Continue daily wound care ACUTE RENAL FAILURE ON CKD 3 Likely pre renal Creatine stable 1.3 today Monitor BMP Stable RIGHT SHOULDER PAIN U/S showed mild motion artifact and metallic artifact within the shoulder resulting in difficult evaluation of the humeral neck. However, there is suggestion of a subtle cortical lucency at the humeral neck. Ortho consulting Recommending sling for the LUE, and follow up with ortho in 3 weeks Continue PT/OT BACK PAIN/SHOULDER PAIN XRAY of left shoulder done on 07/29 showed mild degenerative change. No acute fractures. No destructive lesions are visualized. continue PT/OT On percocet prn COPD Not in any exacerbation Continue CPAP Continue Neb treatment Stable History atrial fibrillation rate control Not on Coumadin On metoprolol Depression and anxiety Continue with current medications. Stable Hypothyroidism Continue with replacement. DVT On SCDs due to hematoma CODE STATUS FULL CODE DISPOSITION Will discharge to rehab today Consultants: Gastro Surgery Procedures: I&D Current Inpatient Medications: Current Inpatient Medications Medications (Trade) Dose Ordered Sig/Rupinder Route Start Time Stop Time Status Last Admin Dose Admin Acetaminophen (Tylenol Tab) 650 mg Q4H PRN PO 08/09/17 06:30 09/08/17 06:29 08/11/17 16:13 650 MG Ondansetron HCl (Zofran Inj) 4 mg Q6H PRN IV 08/09/17 06:30 09/08/17 06:29 08/11/17 20:21 4 MG Albuterol (Ventolin Hfa Inhaler) 2 puffs Q6H INH 08/09/17 12:00 09/08/17 11:59 08/13/17 12:11 2 PUFFS Allopurinol (Zyloprim Tab) 300 mg DAILY PO 08/09/17 09:00 09/08/17 08:59 08/13/17 07:49 300 MG Atorvastatin Calcium (Lipitor Tab) 20 mg DAILY PO 08/09/17 09:00 09/08/17 08:59 08/13/17 07:50 20 MG Benzonatate (Tessalon Perles Cap) 100 mg TID PRN PO 08/09/17 06:45 09/08/17 06:44 Bumetanide (Bumex Tab) 1 mg BID PO 08/09/17 09:00 09/08/17 08:59 08/13/17 07:45 1 MG Cholecalciferol (Vitamin D Tab) 2,000 inter.unit DAILY PO 08/09/17 09:00 09/08/17 08:59 08/13/17 07:50 2,000 INTER.UNIT Gabapentin (Neurontin Cap) 300 mg TID PO 08/09/17 09:00 09/08/17 08:59 08/13/17 07:53 300 MG Levothyroxine Sodium (Synthroid Tab) 88 mcg DAILYBB PO 08/09/17 08:15 09/08/17 08:14 08/13/17 05:46 88 MCG Lidocaine (Lidoderm Patch 5%) 1 patch QAM TD 08/09/17 09:00 09/08/17 08:59 08/11/17 07:48 1 PATCH Losartan Potassium (coZAAR TAB) 50 mg DAILY PO 08/09/17 09:00 09/08/17 08:59 08/13/17 07:46 50 MG Metoprolol Succinate (Toprol Xl Tab) 50 mg DAILY PO 08/09/17 09:00 09/08/17 08:59 08/13/17 07:52 50 MG Multivitamins/ Minerals (Multivitamin W/ Minerals Tab) 1 tab DAILY PO 08/09/17 09:00 09/08/17 08:59 08/13/17 07:52 1 TAB Potassium Chloride (Klor-Con Tab) 20 meq BID17 PO 08/09/17 09:00 09/08/17 08:59 08/13/17 07:51 20 MEQ Prednisone (PredniSONE TAB) 10 mg DAILY PO 08/09/17 09:00 09/08/17 08:59 08/13/17 07:52 10 MG Propafenone HCl (Rythmol Tab) 150 mg TID PO 08/09/17 09:00 09/08/17 08:59 08/13/17 07:53 150 MG Ranitidine HCl (zANTac TAB) 150 mg BID PO 08/09/17 09:00 09/08/17 08:59 08/13/17 07:52 150 MG Roflumilast (Daliresp Tab) 500 mcg DAILY PO 08/09/17 09:00 09/08/17 08:59 08/13/17 07:47 500 MCG Ropinirole HCl (Requip Tab) 5 mg DAILY PO 08/09/17 09:00 09/08/17 08:59 08/13/17 07:47 5 MG Sertraline HCl (Zoloft Tab) 25 mg DAILY PO 08/09/17 09:00 09/08/17 08:59 08/13/17 07:48 25 MG Tramadol HCl (Ultram Tab) 100 mg Q6 PRN PO 08/09/17 06:45 09/08/17 06:44 08/13/17 08:17 100 MG Ferrous Sulfate (Feosol Tab) 325 mg DAILY PO 08/09/17 09:00 09/08/17 08:59 08/13/17 07:49 325 MG Miscellaneous Information (Order Awaiting Action) 1 ea QS N/A 08/09/17 08:00 09/08/17 07:59 08/10/17 16:00 1 EA Pantoprazole Sodium (Protonix Tab) 40 mg QAM PO 08/09/17 09:00 09/08/17 08:59 08/13/17 07:53 40 MG Miscellaneous Information (Order Awaiting Action) 1 ea QS N/A 08/09/17 08:00 09/08/17 07:59 08/10/17 16:00 1 EA Miscellaneous (Remove Lidoderm Patch) 1 ea DAILY@21 N/A 08/09/17 21:00 09/08/17 20:59 08/12/17 20:57 1 EA Levalbuterol (Xopenex 1.25MG/ 3ML Neb) 1.25 mg QID PRN INH 08/11/17 09:45 09/10/17 09:44 Amoxicillin/ Clavulanate Potassium (Augmentin Tab) 875 mg BIDM PO 08/12/17 17:00 08/22/17 16:59 08/13/17 07:45 875 MG Oxycodone/ Acetaminophen (Percocet 5-325mg Tab) 1 tab Q6HWA PRN PO 08/12/17 15:00 08/26/17 14:59 08/13/17 12:11 1 TAB
[2017-08-13] MEDS ORDERED: AMOX1TAB43 PO (12:39)
[2017-08-13] MEDS ORDERED: OXYC-57 PO (12:39)
[2017-08-13 12:53] VITALS: BP 154/77; PULSE 76; TEMP 36.8; O2SAT 100
--- NOTE | 2017-08-13 13:04 | Discharge Instructions ---
Discharge Instructions Date of Service Aug 13, 2017. Admission Reason for Admission: Back Pain, Copd, Rectal Bleeding Discharge Discharge Diagnosis / Problem: BRIGHT RED BLOOD PER RECTUM, RIGHT LEG HEMATOMA/ ABSCESS Discharge Goals Goal(s): Decrease discomfort, Improve function, Increase independence, Improve disease control Activity Recommendations Activity Limitations: resume your previous activity (as tolerated) . Instructions / Follow-Up Instructions / Follow-Up Follow up with your primary care provider once discharge from rehab Follow up with Gastro Dr. Brandt (please call to schedule for the appointment) Follow up with the wound care clinic (please call to schedule for the appointment) Follow up with ortho Dr. Lazo between 2 to 3 weeks ( please call to schedule for the appointment) Ortho recommended to continue wearing a sling immobilizer in the right upper extremity to be worn for 3 more weeks for support. OK to come out of the sling for elbow range of motion. Ortho recommend physical therapy after serial x- rays obtained to document healing of the fracture and stability of the humerus. Continue wound vac and wound vac to be changed on Wed/Wed/Wednesday Continue daily wound care Continue course of antibiotic with Augmentin Check CBC within 1 week to monitor hemoglobin Check BMP in 1 week to monitor renal function Hold aspirin for now, your physician will instruct you when to resume. Continue oxygen supplement Continue PT/OT Fall precaution Current Hospital Diet Patient's current hospital diet: AHA Diet (Heart Healthy) Discharge Diet Recommended Diet: AHA Diet (Heart Healthy) Procedures Procedures Performed: I/D abscess on right lower leg Pending Studies Studies pending at discharge: no Medical Emergencies . Who to Call and When: Medical Emergencies: If at any time you feel your situation is an emergency, please call 911 immediately. . Non-Emergent Contact Non-Emergency issues call your: Primary Care Provider Call Non-Emergent contact if: your pain is not controlled, you have any medication questions . . "Provider Documentation" section prepared by Tomasz Prescott. . VTE Core Measure Inpt VTE Proph given/why not?: SCD's [place] Drug Monitoring Program Search Results: no issues identified
--- NOTE | 2017-08-13 13:15 | Discharge Summary ---
Discharge Summary Date of Service Aug 13, 2017. Discharge Summary Admission Date: Aug 09, 2017 at 06:31 Discharge Date: Aug 13, 2017 Discharge Disposition: Rehab Principal Diagnosis: BRIGHT RED BLOOD PER RECTUM Secondary Diagnoses/Problems: RIGHT LEG HEMATOMA/ABSCESS [place] ON CKD STAGE 3 RIGHT SHOULDER NON DISPLACED FRACTURE BACK PAIN SHOULDER PAIN COPD Hx AFIB DEPRESSION/ANXIETY HYPOTHYROIDISM Procedures: I&D [~ rep ct add3]] R SHOULDER MIN 2 VIEWS ROUTINE CLINICAL HISTORY: 67 years-old Female presenting with previously questioned periprosthetic fracture. TECHNIQUE: Internal rotation, external rotation, Grashey views of the right shoulder were obtained. COMPARISON: 07/27/2017. FINDINGS: Redemonstration of right shoulder arthroplasty and glenoid resurfacing. No subluxation. Relative cortical defect along the lateral aspect of the proximal metaphysis as marked on the image. The previously noted focal linear radiolucency in this region is not apparent on the current radiograph. Degenerative changes of the acromioclavicular joint. Mediastinal calcification may relate to calcified mediastinal lymph nodes. Atherosclerosis. IMPRESSION: Previously noted focal linear radiolucency along the lateral aspect of the proximal humeral metaphysis is not visualized although there is relative cortical thinning in this region. No acute osseous injury on the current radiographs. Electronically signed by: Mukund Tirado M.D. 08/11/2017 8:21 AM Dictated Date/Time: 08/11/2017 8:19 AM [~ rep ct add3]] RIGHT SHOULDER CT CT DOSE: 1083.86 mGy.cm HISTORY: Right shoulder pain. r/o fracture TECHNIQUE: Multiaxial CT images of the right shoulder were performed and reformatted in the sagittal and coronal plane without the use of contrast. A dose lowering technique was utilized adhering to the principles of ALARA. COMPARISON: Right shoulder 07/27/2017. FINDINGS: There is again noted a right total shoulder arthroplasty. There is mild motion artifact and metallic artifact within the shoulder. This results in difficult evaluation of the humeral neck. Best seen on coronal image 19 of 69 there is suggestion of a subtle cortical lucency at the humeral neck. This corresponds to the x-ray abnormality and could represent a nondisplaced fracture. No dislocation. The right clavicle is intact. Moderate AC joint arthrosis. No fractures identified within the scapula. Old, healed right-sided rib fractures. Chronic interstitial thickening seen within the right lung. IMPRESSION: There is mild motion artifact and metallic artifact within the shoulder resulting in difficult evaluation of the humeral neck. However, there is suggestion of a subtle cortical lucency at the humeral neck. This corresponds to the x-ray abnormality and could represent a nondisplaced fracture. Electronically signed by: Henry Bourne M.D. 08/09/2017 4:24 PM Dictated Date/Time: 08/09/2017 4:20 PM [~ rep ct add3]] ABD/PELVIS NO IV OR ORAL CONT CLINICAL HISTORY: 67 years-old Female presenting with eval for diverticulitis, diffuse abdominal pain. TECHNIQUE: Multidetector CT of the abdomen and pelvis was performed without the use of intravenous contrast. IV contrast: None. A dose lowering technique was used consistent with the principles of ALARA (as low as reasonably achievable). COMPARISON: 02/19/2017. CT DOSE (mGy.cm): The estimated cumulative dose is 1576.93 mGy.cm. FINDINGS: Spring Coverer topogram: Total right hip arthroplasty. Lung bases: Dependent peribronchovascular consolidation and bandlike opacities greater in the left lower lobe. Scattered debris and subsegmental lower lobe airways with mild bronchial wall thickening. Mosaic attenuation also noted. Multichamber enlargement of the heart. Coronary artery calcification. No pericardial or pleural effusion. Liver: Normal morphology. Normal density. Biliary: Mild biliary ductal prominence likely a reservoir effect in the post cholecystectomy state. Gallbladder surgically absent. Pancreas: Normal noncontrast appearance. Spleen: Normal noncontrast appearance. Adrenal glands: 11 mm nodule in the lateral limb of the right adrenal gland characteristic of a benign adrenal adenoma by density. The appearance is unchanged from prior CT. Nodularity of the left adrenal gland also unchanged, likely also underlying benign adrenal adenoma. Kidneys and ureters: Intermediate density slightly exophytic 1.8 cm lesion arising from the posterior aspect of the interpolar region of the left kidney (series 3 image 166). This appeared cystic on the prior exam, possibly indicating hemorrhagic or proteinaceous cyst. Water density 3.3 cm exophytic cyst arising from the right kidney. Overall the kidneys demonstrate prominent lobulations. No nephrolithiasis. No hydronephrosis. Ureters normal. Evaluation of the distal ureter slightly limited due to streak artifact arising from the total right hip prosthesis. Bladder: Evaluation slightly degraded streak artifact. Otherwise normal. Pelvic organs: Normal noncontrast appearance allowing for regional streak artifact. Bowel: Limited diverticulosis in the proximal sigmoid colon. No bowel obstruction. Peritoneal cavity: No free fluid or intraperitoneal gas. Lymph nodes: Enlarged right external iliac lymph node measuring 10 mm in the short axis (series 3 image 337), minimally increase in size from prior exam. Allowing for noncontrast technique, no other sites of potential lymphadenopathy. This may be reactive. Vasculature: Atherosclerosis of the normal caliber abdominal aorta. Extensive calcified atherosclerotic plaque at the origins of the renal arteries. Abdominal wall: Diastasis of the rectus abdominis. Musculoskeletal: Asymmetric atrophy of the right psoas muscle. Postsurgical changes of total right hip arthroplasty. Degenerative changes of the spine also noted. IMPRESSION: 1. Limited diverticulosis without evidence of diverticulitis. No bowel obstruction or convincing evidence of acute intra-abdominal pathology allowing for noncontrast technique. 2. Bibasilar peribronchovascular consolidation with minimal debris in the airways and bronchial wall thickening could relate to chronic aspiration. These findings are unchanged since the prior exam. 3. Borderline enlarged right external iliac lymph node, slightly increased in size from prior. This may be reactive. 4. Chronic additional findings as above. Electronically signed by: Mukund Tirado M.D. 08/09/2017 7:30 AM Dictated Date/Time: 08/09/2017 7:15 AM Consultations: Gastro Surgery Wound care provider Medication Reconciliation New Medications: Amoxicillin & Pot Clavulanate (Amoxicillin/Clavulanate P) 1 Tab Tab 875 MG PO BIDM for 7 Days, TAB Oxycodone/Acetaminophen 5MG/325MG (Percocet 5MG/325MG) Tab 1 TAB PO Q8H PRN for moderate to severe pain, #10 TAB hold for drowsiness and lethargy Continued Medications: Acetaminophen (Tylenol) 325 Mg Tab 650 MG PO Q4H PRN for Pain or Fever, TAB Albuterol Hfa (Ventolin Hfa) 200 Puffs/88926 Mcg Aers 2-4 PUFFS INH Q6H, INHALER Allopurinol (Zyloprim) 300 Mg Tab 300 MG PO DAILY, TAB Aspirin (Aspirin Ec) 81 Mg Tab 81 MG PO DAILY Atorvastatin (Lipitor) 20 Mg Tab 20 MG PO DAILY, TAB Benzonatate (Tessalon Perles) 100 Mg Cap 100 MG PO TID PRN for Cough, CAP Bumetanide (Bumex) 1 Mg Tab 1 TAB PO BID for 90 Days, #180 TAB 1 Refill Cholecalciferol (Vitamin D3) 1,000 Unit Tab 2000 INTER.UNIT PO DAILY, TAB Ferrous Sulfate (Ferrous Sulfate) 325 Mg Tab 325 MG PO DAILY Fluticasone Furoate-Vilanterol (Breo Ellipta 200-25 Mcg/INH) 1 Inh Inh 1 PUFF INH DAILY Fluticasone Furoate-Vilanterol (Breo Ellipta 200-25 Mcg/INH) Unknown Strength Inh Unknown Dose INH DAILY for 30 Days Gabapentin (Neurontin) 300 Mg Cap 300 MG PO TID, CAP Levalbuterol Hcl (Levalbuterol Hcl) 1.25 Mg/3 Ml Neb 1.25 MG INH QID for 30 Days, #360 ML 3 Refills Levothyroxine Sodium (Synthroid) 88 Mcg Tab 88 MCG PO DAILY, TAB Lidocaine (Lidocaine) 1 Patch Tdsy 1 PATCH TD QAM for 10 Days, #10 PATCH Losartan Potassium (Cozaar) 50 Mg Tab 50 MG PO DAILY, TAB Metolazone (Metolazone) 2.5 Mg Tab 2.5 MG PO UD 2.5 mg by mouth once per week on Wednesday Metoprolol Succinate (Toprol Xl) 50 Mg Tab 50 MG PO DAILY, TAB Multivitamins/Minerals (Certavite/Antioxidants) 1 Tab Tab 1 TAB PO DAILY Omeprazole (Prilosec) 20 Mg Cap 1 CAP PO DAILY for 30 Days, #30 CAP 5 Refills Potassium Ext Rel (Klor-Con) 20 Meq Tabcr 20 MEQ PO BID, TAB Prednisone (Prednisone) 10 Mg Tab 10 MG PO DAILY for 30 Days, #30 TAB Propafenone Hcl (Propafenone Hcl) 150 Mg Tab 150 MG PO TID Ranitidine (Zantac) 150 Mg Tab 150 MG PO BID, TAB Roflumilast (Daliresp) 500 Mcg Tab 1 TAB PO DAILY for 90 Days, #90 TAB 3 Refills Ropinirole (Requip) 5 Mg Tab 5 MG PO DAILY, TAB Sertraline (Zoloft) 25 Mg Tab 25 MG PO DAILY, TAB Umeclidinium [place] (Incruse Ellipta) 62.5 Mcg/Inh Inh 1 PUFF INH DAILY Discontinued Medications: Tramadol HCl (Tramadol HCl) 50 Mg Tab 100 MG PO Q6 PRN for Pain for 5 Days, #40 TAB Admission Information HPI (per Admitting provider): CHIEF COMPLAINT: Bright red rectal bleed for the last 3 days. HISTORY OF PRESENT COMPLAINT: She is a 67-year-old obese female with a significant past medical history of severe COPD, on home oxygen, atrial fibrillation, off Coumadin, chronic kidney disease stage III, esophageal reflux, hyperlipidemia, spinal stenosis and also acute hypothyroidism, apparently has been complaining of bright red rectal bleed for the last 3 days. She also has had a fall about 3 weeks ago and she fell on her bottom and she has been complaining of more pain in the lower back and the pain goes around her sides and comes in front of her belly. There is no rash associated with it. She also has a hematoma in the right leg with swelling of the right leg and they were checked for negative DVT recently in the doctor's office and the hematoma seems to be red and tender, but denies to any fever, chills or rigors. In the ER, she was hemodynamically stable and her hemoglobin was noted to be 8.2, which has not significantly dropped from her prior test, but we will admit her to the telemetry unit and check serial H&H to make sure there is no ongoing bleeding. Her COPD seems to be stable at this time. Physical Exam (per Admitting): PHYSICAL EXAMINATION: GENERAL: On examination in the Emergency Room, she was not having any acute distress. VITAL SIGNS: Temperature 36.9, pulse was 85, blood pressure 158/56, saturation 98% on 4 liters nasal cannula. HEENT: Unremarkable. NECK: Supple. No JVD, no bruit. CHEST: Decreased breath sounds with occasional crackles. HEART: S1, S2 regular, no murmur. ABDOMEN: Soft, benign, mildly tender in the right lower quadrant. No guarding or rigidity. Bowel sounds present. EXTREMITIES: 1+ edema on the right side, trace on the left. She has a hematoma on the lower right part of the leg, which is tender with increased local temperature and this leg was negative for deep venous thrombosis as per the patient. MUSCULOSKELETAL SYSTEM: Did not show any acute arthritis involving any joint. CENTRAL NERVOUS SYSTEM: She was alert, awake, oriented x3. Generally weak, but no focal neuro deficit appreciated. Hospital Course BRIGHT RED BLOOD PER RECTUM Hb on admission 8 CT abd w/o contrast showed Limited diverticulosis without evidence of diverticulitis. No bowel obstruction or convincing evidence of acute intra- abdominal Received 1 unit PRBC during hospital course Tolerated diet Hg increased from 8.3 to 9 Continue holding ASA Normal BM GI on board GI recommended colonoscopy as an outpatient once pt fully recovers from acute illness check CBC within 1 week RIGHT LEG HEMATOMA/ABSCESS S/P Fall 3 weeks ago Afebrile, no leukocytosis S/P I&D day [address] Michelle wound cx no growth On Vanco and Unasyn for the abscess D/C today since wound cx no growth Resume Augmentin Surgery on board Case discussed with wound care provider Wound vac applied and recommended to monitor for 24hrs Will discharge to rehab with wound vac to be changed on Wed/Wed/Wednesday Follow up with wound care clinic on discharge Continue daily wound care ACUTE RENAL FAILURE ON CKD 3 Likely pre renal Creatine stable 1.3 today Monitor BMP Stable RIGHT SHOULDER PAIN RIGHT SHOULER FRACTURE U/S showed mild motion artifact and metallic artifact within the shoulder resulting in difficult evaluation of the humeral neck. However, there is suggestion of a subtle cortical lucency at the humeral neck. Ortho consulting Recommending sling for the LUE, and follow up with ortho in 3 weeks Continue PT/OT BACK PAIN/SHOULDER PAIN XRAY of left shoulder done on 07/29 showed mild degenerative change. No acute fractures. No destructive lesions are visualized. continue PT/OT On percocet prn COPD Not in any exacerbation Continue CPAP Continue Neb treatment Stable History atrial fibrillation rate control Not on Coumadin On metoprolol Depression and anxiety Continue with current medications. Stable Hypothyroidism Continue with replacement. DVT On SCDs due to hematoma CODE STATUS FULL CODE DISPOSITION Will discharge to rehab today Total time spent on discharge = 35 MINUTES This includes examination of the patient, discharge planning, medication reconciliation, and communication with other providers. Discharge Instructions Discharge Instructions Date of Service Aug 13, 2017. Admission Reason for Admission: Back Pain, Copd, Rectal Bleeding Discharge Discharge Diagnosis / Problem: BRIGHT RED BLOOD PER RECTUM, RIGHT LEG HEMATOMA/ ABSCESS Discharge Goals Goal(s): Decrease discomfort, Improve function, Increase independence, Improve disease control Activity Recommendations Activity Limitations: resume your previous activity (as tolerated) . Instructions / Follow-Up Instructions / Follow-Up Follow up with your primary care provider once discharge from rehab Follow up with Gastro Dr. Brandt (please call to schedule for the appointment) Follow up with the wound care clinic (please call to schedule for the appointment) Follow up with ortho Dr. Lazo between 2 to 3 weeks ( please call to schedule for the appointment) Ortho recommended to continue wearing a sling immobilizer in the right upper extremity to be worn for 3 more weeks for support. OK to come out of the sling for elbow range of motion. Ortho recommend physical therapy after serial x- rays obtained to document healing of the fracture and stability of the humerus. Continue wound vac and wound vac to be changed on Wed/Wed/Wednesday Continue daily wound care Continue course of antibiotic with Augmentin Check CBC within 1 week to monitor hemoglobin Check BMP in 1 week to monitor renal function Hold aspirin for now, your physician will instruct you when to resume. Continue oxygen supplement Continue PT/OT Fall precaution Current Hospital Diet Patient's current hospital diet: AHA Diet (Heart Healthy) Discharge Diet Recommended Diet: AHA Diet (Heart Healthy) Procedures Procedures Performed: I/D abscess on right lower leg Pending Studies Studies pending at discharge: no Medical Emergencies . Who to Call and When: Medical Emergencies: If at any time you feel your situation is an emergency, please call 911 immediately. . Non-Emergent Contact Non-Emergency issues call your: Primary Care Provider Call Non-Emergent contact if: your pain is not controlled, you have any medication questions . . "Provider Documentation" section prepared by Tomasz Prescott. . VTE Core Measure Inpt VTE Proph given/why not?: SCD's [place] Drug Monitoring Program Search Results: no issues identified Additional Copies To Babak Melendez M.D. ([facility])
== END 2017-08-13 14:59 | DRG 378 ==
LOC: EDBD 05:02 → C.EDB 05:03 → C.2T 06:31 → EDBEDREQ 06:36 → ENRESERV 07:01 → C.MS4W 08-11 21:52
PROVIDERS: ADMIT Internal Medicine; ATTEND Internal Medicine
PROC: 0J9N3ZZ Drainage of Right Lower Leg Subcutaneous Tissue and Fascia, Percutaneous Approach (ICD-10-PCS; principal; 2017-08-09)
PROC: 0JCN0ZZ Extirpation of Matter from Right Lower Leg Subcutaneous Tissue and Fascia, Open Approach (ICD-10-PCS; 2017-08-12)
DX: K62.5 Hemorrhage of anus and rectum (principal); J96.10 Chronic respiratory failure, unspecified whether with hypoxia or hypercapnia; I13.0 Hypertensive heart and chronic kidney disease with heart failure and stage 1 through stage 4 chronic kidney disease, or unspecified chronic kidney disease; L02.415 Cutaneous abscess of right lower limb; L03.115 Cellulitis of right lower limb; S49.001A Unspecified physeal fracture of upper end of humerus, right arm, initial encounter for closed fracture; N17.9 Acute kidney failure, unspecified; R10.9 Unspecified abdominal pain; G89.29 Other chronic pain; M54.9 Dorsalgia, unspecified; S80.11XA Contusion of right lower leg, initial encounter; W10.9XXA Fall (on) (from) unspecified stairs and steps, initial encounter; D64.9 Anemia, unspecified; J44.9 Chronic obstructive pulmonary disease, unspecified; I48.91 Unspecified atrial fibrillation; N18.3 Chronic kidney disease, stage 3 (moderate); I50.810 Right heart failure, unspecified; F32.9 Major depressive disorder, single episode, unspecified; F41.9 Anxiety disorder, unspecified; E03.9 Hypothyroidism, unspecified; K21.9 Gastro-esophageal reflux disease without esophagitis; E78.5 Hyperlipidemia, unspecified; Z99.81 Dependence on supplemental oxygen; Z87.891 Personal history of nicotine dependence; Z86.010 Personal history of colon polyps; Z98.1 Arthrodesis status; Z96.611 Presence of right artificial shoulder joint; Z96.641 Presence of right artificial hip joint; Z90.49 Acquired absence of other specified parts of digestive tract; Z79.51 Long term (current) use of inhaled steroids; Z79.82 Long term (current) use of aspirin; Z79.891 Long term (current) use of opiate analgesic; Z79.899 Other long term (current) drug therapy; Z91.040 Latex allergy status; Z83.3 Family history of diabetes mellitus; Z82.49 Family history of ischemic heart disease and other diseases of the circulatory system

== ENCOUNTER 2017-09-03 09:59 | Inpatient (IN) | payer OTHER ==
[~2017-09-03] VITALS: Ht 162.6 cm; Wt 109.7 kg
[~2017-09-03 09:59] MED LIST changes: +AMOX1TAB43 PO; +OXYC-57 PO; +RANI150T85 PO; -ULT50X PO; -ZNTT/150 PO
[2017-09-03] MEDS ORDERED: ALBUTEROL 0.083% NEBU SOLN 3 ML VIAL INH STA (10:17)
[2017-09-03] MEDS ORDERED: METHYLPREDNISOLONE 125 MG VIAL IV STA (10:17)
[2017-09-03] MEDS ORDERED: LEVAQUIN 750MG / 150ML D5W IV STA (10:19)
[2017-09-03 11:02] LABS: BASO % 0.2 %; BASO ABS # 0.03 K/uL (0-0.2); EOS % 1.2 %; EOS ABS # 0.15 K/uL (0-0.5); HEMATOCRIT 28.3 % (37-47); HEMOGLOBIN 8.9 g/dL (12.0-16.0); IG# 0.03 K/uL (0.00-0.02); LYMPH ABS # 0.99 K/uL (1.2-3.4); MEAN CELL VOLUME 95.3 fL (80-100); MEAN CORPUSCULAR HGB CONC 31.4 g/dl (32-36); MEAN PLATELET VOLUME 9.1 fL (7.4-10.4); MONO % 8.2 %; MONO ABS # 1.01 K/uL (0.11-0.59); NEUT % 82.2 %; NEUT ABS # 10.14 K/uL (1.4-6.5); PLATELET COUNT 165 K/uL (130-400); RED CELL DISTRIBUTION WIDTH CV 15.4 % (11.5-14.5); RED CELL DISTRIBUTION WIDTH SD 53.6 fL (36.4-46.3); WHITE BLOOD COUNT 12.35 K/uL (4.8-10.8)
[2017-09-03 11:18] LABS: ALBUMIN 2.8 gm/dl (3.4-5.0); ALT/SGPT 12 U/L (12-78); AST/SGOT 11 U/L (15-37); BLOOD UREA NITROGEN 19 mg/dl (7-18); CALCIUM 9.2 mg/dl (8.5-10.1); CARBON DIOXIDE 36 mmol/L (21-32); CREATININE 1.18 mg/dl (0.60-1.20); GLUCOSE 116 mg/dl (70-99); INR 1.1 (0.9-1.1); POTASSIUM 3.5 mmol/L (3.5-5.1); SODIUM 139 mmol/L (136-145)
[2017-09-03 11:20] LABS: INFLUENZA B ANTIGEN Neg for Influ B (NEG)
[2017-09-03 11:23] LABS: ALKALINE PHOSPHATASE 82 U/L (45-117); TOTAL PROTEIN 6.8 gm/dl (6.4-8.2)
[2017-09-03] MEDS ORDERED: OXYC-57 PO (11:42)
[2017-09-03] MEDS ORDERED: PRLSR20 PO (11:42)
--- NOTE | 2017-09-03 12:24 | DIAGNOSTIC IMAGING REPORT ---
CHEST 2 VIEWS ROUTINE HISTORY: EVALUATE RESPIRATORY DISTRESS.DYSPNEA COMPARISON: Chest 07/27/2017. FINDINGS: Right shoulder prosthesis. Vertebroplasty within the mid thoracic spine. No pneumothorax. The heart is mildly enlarged. Progressive interstitial thickening. Trace bilateral pleural effusion. IMPRESSION: Cardiomegaly with progressive interstitial thickening and a trace bilateral pleural effusions consistent with mild pulmonary edema. Electronically signed by: Henry Bourne M.D. 09/03/2017 12:23 PM Dictated Date/Time: 09/03/2017 12:22 PM
[2017-09-03] MEDS ORDERED: ALBUT/IPRATROP 3MG/0.5MG NEB 3 ML VIAL INH STA (12:50)
[2017-09-03] MEDS ORDERED: ACETAMINOPHEN 500 MG TAB PO ONE (13:02)
[2017-09-03] MEDS ORDERED: FUROSEMIDE INJ 60 MG in SYRINGE 0 ML IV SCH (13:15)
[2017-09-03] MEDS ORDERED: NITROGLYCERIN 0.4 MG SL PER TAB CHARGE SL PRN (13:45)
[2017-09-03] MEDS ORDERED: ALUMINUM/MAGNESIUM/SIMETH (MAALOX MAX) 30 ML UDC PO PRN (13:45)
[2017-09-03] MEDS ORDERED: POLYETHYLENE (MIRALAX) 17 GM PACK PO PRN (13:45)
[2017-09-03] MEDS ORDERED: MAGNESIUM HYDROXIDE SUSP 30 ML UDC PO PRN (13:45)
[2017-09-03] MEDS ORDERED: LEVALBUTEROL/IPRATROPIUM NEB INH SCH (15:00)
--- NOTE | 2017-09-03 15:06 | History and Physical ---
History & Physical Date & Time of Service: Sep 03, 2017 at 14:51 Chief Complaint: Breathing Difficulty Primary Care Physician: Babak Melendez M.D.(RAMEZ) History of Present Illness Source: patient, clinic records, hospital records This is a 67yo F with a PMH of COPD, diastolic CHF, h/o RLE traumatic wound s/p hematoma evacuation, CKD IV and other medical problems listed below who presents with cough and SOB x 3 days. Patient was recently admitted from Aug 09 - Aug 13 for diverticular bleed and RLE hematoma abscess. Underwent I&D of wound , IV antibiotics and wound vac applied. Patient was discharged to [facility] for rehab until she returned home approximately 1 week ago. Patient states that she was feeling well up until 3 days ago when she started to experience a productive yellow cough, chills, body aches and SOB at rest. Is on 4L home O2 at baseline. Also endorses nausea with 2 episodes of vomiting yesterday but states that nausea has since resolved. Decreased PO intake. Came to ED for further evaluation. Currently endorses fatigue, chills, SOB and cough. Denies fever, lightheadedness, headache, visual changes, palpitations, chest pain, abdominal pain, nausea, dysuria, diarrhea, constipation. Denies weight gain or LE swelling. Patient lives with her daughter who is also sick with similar symptoms. States that she has been taking medications normally but that her daughter manages them. Has been going to wound clinic [facility] for care of wound vac. Had an appt scheduled for later today. In ED, patient is saturating in the 90s on 4L NC. Leukocytosis of 12.35. Flu ag negative but PCR pending. Past Medical/Surgical History Medical Problems: (1) Asthma Status: Chronic (2) CHF (congestive heart failure) Permanent Comment: diastolic Status: Chronic (3) Chronic respiratory failure Status: Chronic (4) CKD (chronic kidney disease), stage IV Status: Chronic (5) COPD (chronic obstructive pulmonary disease) Status: Chronic (6) Depression Status: Chronic (7) Dyslipidemia Status: Chronic (8) GERD (gastroesophageal reflux disease) Status: Chronic (9) HTN (hypertension) Status: Chronic (10) EVONNE (iron deficiency anemia) Status: Chronic (11) Lumbar spinal stenosis Status: Chronic (12) Morbid obesity Status: Chronic (13) Myocardial infarction Permanent Comment: per patient, details unknown Status: Chronic (14) Obesity hypoventilation syndrome Status: Chronic (15) Paroxysmal a-fib Status: Chronic Surgical Problems: (1) History of appendectomy Status: Chronic (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 (3) 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 (4) Hx of cholecystectomy Status: Chronic (5) S/P cervical spinal fusion Status: Chronic (6) S/P wrist surgery Status: Chronic Family History Diabetes mellitus MOTHER FH: CAD (coronary artery disease) MOTHER SISTER Social History Smoking Status: Former Smoker Drug Use: none Marital Status: single Housing status: lives with family Occupational Status: retired Immunizations History of Influenza Vaccine: Yes Influenza Vaccine Date: May 19, 2016 History of Tetanus Vaccine?: Yes Tetanus Immunization Date: Jan 11, 2008 History of Pneumococcal: Yes Pneumococcal Date: May 19, 2016 Multi-Drug 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 Allergies Coded Allergies: Adhesives (Verified Allergy, Severe, RED RASH, 09/03/17) Latex1 -Allergic Contact Dermititis (Verified Adverse Reaction, Mild, TAPE -SORE, 09/03/17) Morphine (Verified Adverse Reaction, Mild, DELUSIONS, 09/03/17) Home Medications Scheduled Albuterol Hfa (Ventolin Hfa), 2-4 PUFFS INH Q6H Allopurinol (Zyloprim), 300 MG PO QAM Aspirin (Aspirin Ec), 81 MG PO QAM Atorvastatin (Lipitor), 20 MG PO PM Bumetanide (Bumex), 1 TAB PO BID Cholecalciferol (D3 2000), 1 TAB PO DAILY Ferrous Sulfate (Ferrous Sulfate), 325 MG PO QAM Fluticasone Furoate-Vilanterol (Breo Ellipta 200-25 Mcg/INH), 1 PUFF INH QAM Gabapentin (Gabapentin), 1 TAB PO TID Levothyroxine Sodium (Synthroid), 88 MCG PO QAM Losartan Potassium (Cozaar), 50 MG PO QAM Metolazone (Metolazone), 2.5 MG PO WEDNESDAY@0600 Metoprolol Succinate (Toprol Xl), 50 MG PO QAM Multivitamins/Minerals (Certavite/Antioxidants), 1 TAB PO QAM Omeprazole (Prilosec), 20 MG PO QAM Potassium Ext Rel (Klor-Con), 20 MEQ PO BID Propafenone Hcl (Propafenone Hcl), 150 MG PO TID Roflumilast (Daliresp), 1 TAB PO QAM Ropinirole (Requip), 5 MG PO QAM Sertraline (Zoloft), 25 MG PO QAM Umeclidinium Foley (Incruse Ellipta), 1 PUFF INH QAM Scheduled PRN Oxycodone/Acetaminophen 5MG/325MG (Percocet 5MG/325MG), 1 TABLET PO Q8 PRN for MODERATE/SEVERE PAIN Review of Systems Ten systems reviewed and negative except as noted in the HPI. Physical Exam Vital Signs Date Time Temp Pulse Resp B/P (MAP) Pulse Ox O2 Delivery O2 Flow Rate FiO2 09/03/17 13:57 75 20 159/65 96 Nasal Cannula 4.0 09/03/17 13:06 72 20 146/52 95 Nebulizer 8.0 09/03/17 12:45 78 18 136/96 96 Nasal Cannula 4.0 09/03/17 11:26 77 20 135/62 97 Nasal Cannula 4.0 09/03/17 10:54 Nasal Cannula 4.0 09/03/17 10:54 Nasal Cannula 4.0 09/03/17 10:11 82 09/03/17 10:07 37.2 86 20 184/84 94 Nasal Cannula 4.0 General Appearance: no apparent distress, + obese, + pertinent finding ( Breathing comfortably on NC O2. Chronically ill appearing ) Head: normocephalic, atraumatic Eyes: normal inspection, PERRL, sclerae normal ENT: normal ENT inspection, hearing grossly normal, pharynx normal (dry mucous membranes ) Neck: supple, thyroid normal, trachea midline Respiratory/Chest: chest non-tender, + crackles (bibasilar crackles), + wheezing (Diffuse inspiratory and expiratory wheezing ) Cardiovascular: regular rate, rhythm (distant heart sounds ), normal peripheral pulses Abdomen/GI: non tender, soft, no organomegaly Back: normal inspection Extremities/Musculoskelatal: normal inspection, no calf tenderness, no pedal edema, + pertinent finding (Healing wound on lateral aspect of RLE. Wound vac attached, dressing in place. Clean, dry, intact. ) Neurologic/Psych: no motor/sensory deficits, alert, normal mood/affect, oriented x 3 Skin: normal color, warm/dry Diagnostics Laboratory Results Results Past 24 Hours Test 09/03/17 10:35 09/03/17 10:45 09/03/17 11:25 09/03/17 13:37 Range/Units Influenza Type A Antigen Neg for Influ A NEG Influenza Type B Antigen Neg for Influ B NEG White Blood Count 12.35 4.8-10.8 K/uL Red Blood Count 2.97 4.2-5.4 M/uL Hemoglobin 8.9 12.0-16.0 g/dL Hematocrit 28.3 37-47 % Mean Corpuscular Volume 95.3 80-100 fL Mean Corpuscular Hemoglobin 30.0 25-34 pg Mean Corpuscular Hemoglobin Concent 31.4 32-36 g/dl Platelet Count 165 130-400 K/uL Mean Platelet Volume 9.1 7.4-10.4 fL Neutrophils (%) (Auto) 82.2 % Lymphocytes (%) (Auto) 8.0 % Monocytes (%) (Auto) 8.2 % Eosinophils (%) (Auto) 1.2 % Basophils (%) (Auto) 0.2 % Neutrophils # (Auto) 10.14 1.4-6.5 K/uL Lymphocytes # (Auto) 0.99 1.2-3.4 K/uL Monocytes # (Auto) 1.01 0.11-0.59 K/uL Eosinophils # (Auto) 0.15 0-0.5 K/uL Basophils # (Auto) 0.03 0-0.2 K/uL RDW Standard Deviation 53.6 36.4-46.3 fL RDW Coefficient of Variation 15.4 11.5-14.5 % Immature Granulocyte % (Auto) 0.2 % Immature Granulocyte # (Auto) 0.03 0.00-0.02 K/uL Stomatocytes 2+ Prothrombin Time 11.4 9.0-12.0 SECONDS Prothromb Time International Ratio 1.1 0.9-1.1 Activated Partial Thromboplast Time 24.0 21.0-31.0 SECONDS Partial Thromboplastin Ratio 0.9 Sodium Level 139 136-145 mmol/L Potassium Level 3.5 3.5-5.1 mmol/L Chloride Level 98 98-107 mmol/L Carbon Dioxide Level 36 21-32 mmol/L Anion Gap 5.0 3-11 mmol/L Blood Urea Nitrogen 19 7-18 mg/dl Creatinine 1.18 0.60-1.20 mg/dl Est Creatinine Clear Calc Drug Dose 55.9 ml/min Estimated GFR () 54.5 Estimated GFR (Non- 47.0 BUN/Creatinine Ratio 16.4 10-20 Random Glucose 116 70-99 mg/dl Calcium Level 9.2 8.5-10.1 mg/dl Total Bilirubin 0.3 0.2-1 mg/dl Aspartate Amino Transf (AST/SGOT) 11 15-37 U/L Alanine Aminotransferase (ALT/SGPT) 12 12-78 U/L Alkaline Phosphatase 82 45-117 U/L Troponin I < 0.015 0-0.045 ng/ml Pro-B-Type Natriuretic Peptide 2310 0-900 pg/ml Total Protein 6.8 6.4-8.2 gm/dl Albumin 2.8 3.4-5.0 gm/dl Globulin 4.0 2.5-4.0 gm/dl Albumin/Globulin Ratio 0.7 0.9-2 Urine Color YELLOW Urine Appearance CLEAR CLEAR Urine pH 5.5 4.5-7.5 Urine Specific [place] 1.007 1.000-1.030 Urine Protein NEG NEG Urine Glucose (UA) NEG NEG Urine Ketones NEG NEG Urine Occult Blood NEG NEG Urine Nitrite NEG NEG Urine Bilirubin NEG NEG Urine Urobilinogen NEG NEG Urine Leukocyte Esterase NEG NEG Urine WBC (Auto) 0 0-5 /hpf Urine RBC (Auto) 0-4 0-4 /hpf Urine Hyaline Casts (Auto) 1-5 0-5 /lpf Urine Epithelial Cells (Auto) 0-5 0-5 /lpf Urine Bacteria (Auto) NEG NEG Diagnostic Radiology CXR: IMPRESSION: Cardiomegaly with progressive interstitial thickening and a trace bilateral pleural effusions consistent with mild pulmonary edema. EKG Normal sinus rhythm, Incomplete right bundle branch block Impression Assessment and Plan Patient seen in collaboration with Dr. Larson. Please see attending addendum for assessment and plan. ATTENDING ADDENDUM : Pt seen and examined, care co-ordinated with Carline Gutierres PA-C 67 yo F with complicated past medical hx of chronic respiratory failure on 4L home 02, COPD , diastolic CHF , chronic RLE wound form hematoma evacuation has wound vac, follows with wound clinic presented to ER with complain of flu like symptoms, fever , chill , Cough with yellow productive sputum , SOB /AHN for past 3-4 days pt's daughter recently recovering for viral illness in ER , pt had mild leukocytosis 12K , chronic anemia Hb 8 , Cxray -Cardiomegaly with progressive interstitial thickening and a trace bilateral pleural effusions consistent with mild pulmonary edema. P/E: As per Carline Gutierres PA-C A/P: FLU LIKE SYMPTOM , FEVER /CHILLS/COUGH /SOB -pt reports of generalized body ache , increased fatigue , poor PO intake -Influenza A PCR /Ag negative -possible viral illness -cont supportive care, afebrile on presentation ordered for Sputum for gram statin and culture empiric Abx with Rocephin /Zithromax Abx can be discontinued if culture negative CHRONIC HYPOXEMIC RESPIRATORY FAILURE/ADVANCED COPD ON HOME 02 no audible wheeze noted, on 4 L 02 respiratory status -approx baseline had more AHN due to viral illness, generalized deconditioning cont Neb tx scheduled q 6 hrs and PRN q2 as needed for SOB Steroid not initiated as no wheeze or bronchospasm noted SIMONA: cont CPAP at night pt may use her own machine ACUTE ON CHRONIC DIASTOLIC HEART FAILURE ECHO on 06/2017 : * 1. Normal LV size, borderline concentric LVH. * 2. Normal LV systolic function. LVEF 55-60%. No regional wall motion abnormalities. * 3. Mildly dilated RV, normal RV function. * 4. Aortic valve sclerosis without stenosis. given IV Lasix 60 mg in ER -elevated BNP , Cxray shows bilat pulmonary congestion cont out pt diuretics Bumex , metolazone , on Losartan follow daily wt and input /out put CKD STAGE 3-4 : renal function approx baseline follow BMP while getting diuretic tx CHRONIC AFIB : sinus with rate controlled cont Beta sandra and Propafenone /Rythmol has been off anticoagulation due to lower ext large Hematoma /recent hx of lower GI bleed on Aspirin 81 mg daily RT LOWER EXTREMITY NO HEALING WOUND : s/p Evacuation of Hematoma has wound vac , follows at wound care clinic with Dr York recent Wound clinic note shows -well healing wound base with granulation tissue wound care consulted ANEMIA OF CHRONIC DISEASE : hb at baseline no report of bright red blood per rectum or dark stool cont Fe supplement HTN : on Beta sandra /ARB HYPOTHYROIDISM : cont levothyroxine DEPRESSION on SSRI -Zoloft FULL CODE -D/w pt DVT PROPHYLAXIS : moderate to high risk due to lower ext wound , minimum activity lower ext Doppler negative for DVT Pharmacological anticoagulation avoided as pt has non healing post hematoma I& D wound on wound vac SCD and teds PT/OT to increase activity as tolerated DISPOSITION : lives at home with daughter recently discharge from [facility] PT/OT lonnie requested Has home health visiting nurse for wound care /wound vac management social service consulted for discharge planning Update given to Daughter Noreen over phone Level of Care Med/Surg Resuscitation Status FULL RESUSCITATION VTE Prophylaxis VTE Risk Assessment Done? Y/N: Yes Risk Level: Moderate Given or contraindicated: T.E.DMartir Stockings, SCD's Additional Copies To Babak Melendez M.D.(RAMEZ)
[2017-09-03] MEDS ORDERED: CHOL1TAB79 PO (15:18)
[2017-09-03 15:54] LABS: INFLUENZA A PCR Neg for Influ A (NEG); INFLUENZA B PCR Neg for Influ B (NEG)
[2017-09-03] MEDS ORDERED: OMEP40CA41 PO (15:54)
[2017-09-03] MEDS ORDERED: NRN600 PO (15:54)
--- NOTE | 2017-09-03 16:07 | EMERGENCY ROOM VISIT NOTE ---
History Report prepared by Warren: Kimberly Vasquez Under the Supervision of: Jose Enrique AyersO. First contact with patient: 10:06 Chief Complaint: ILLNESS Stated Complaint: BREATHING DIFFICULTY History of Present Illness The patient is a 67 year old female who presents to the Emergency Room with complaints of worsening generalized illness beginning three days ago. The patient notes a yellow productive cough, vomiting, runny nose, nausea, and worsening shortness of breath. The patient reports she vomited twice today. The patient states she just went home from [facility] a week ago. She states she was at [facility] for wound care. The patient's last bowel movement was this morning. The patient notes recent sick contact with her daughter. She states her daughter is sick with similar symptoms. The patient has a history of COPD. At baseline the patient wears 4 L of nasal cannula oxygen. Pt denies headache, change in vision, fevers, chest pain, diarrhea, pain with urination, and melena. Source of History: patient Onset: last night Position: other (generalized) Quality: other (illness) Timing: worsening Associated Symptoms: + cough, + SOB, + nausea, + vomiting, No fevers, No headache, No chest pain, No diarrhea Review of Systems See HPI for pertinent positives & negatives. A total of 10 systems reviewed and were otherwise negative. Past Medical & Surgical Medical Problems: (1) Asthma (2) CHF (congestive heart failure) (3) Chronic respiratory failure (4) CKD (chronic kidney disease), stage IV (5) COPD (chronic obstructive pulmonary disease) (6) Depression (7) Dyslipidemia (8) GERD (gastroesophageal reflux disease) (9) HTN (hypertension) (10) EVONNE (iron deficiency anemia) (11) Lumbar spinal stenosis (12) Morbid obesity (13) Myocardial infarction (14) Obesity hypoventilation syndrome (15) Paroxysmal a-fib Surgical Problems: (1) History of appendectomy (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 (4) Hx of cholecystectomy (5) S/P cervical spinal fusion (6) S/P wrist surgery Family History Diabetes mellitus MOTHER FH: CAD (coronary artery disease) MOTHER SISTER Social History Smoking Status: Former Smoker Alcohol Use: none Drug Use: none Marital Status: single Housing Status: lives with family Occupation Status: retired Current/Historical Medications Scheduled Albuterol Hfa (Ventolin Hfa), 2-4 PUFFS INH Q6H Allopurinol (Zyloprim), 300 MG PO QAM Amoxicillin & Pot Clavulanate (Amoxicillin/Clavulanate P), 875 MG PO BIDM Aspirin (Aspirin Ec), 81 MG PO QAM Atorvastatin (Lipitor), 20 MG PO PM Bumetanide (Bumex), 1 TAB PO BID Cholecalciferol (D3 2000), 1 TAB PO DAILY Ferrous Sulfate (Ferrous Sulfate), 325 MG PO QAM Fluticasone Furoate-Vilanterol (Breo Ellipta 200-25 Mcg/INH), 1 PUFF INH QAM Gabapentin (Gabapentin), 1 TAB PO TID Levothyroxine Sodium (Synthroid), 88 MCG PO QAM Losartan Potassium (Cozaar), 50 MG PO QAM Metolazone (Metolazone), 2.5 MG PO WEDNESDAY@0600 Metoprolol Succinate (Toprol Xl), 50 MG PO QAM Multivitamins/Minerals (Certavite/Antioxidants), 1 TAB PO QAM Omeprazole (Prilosec), 20 MG PO QAM Omeprazole (Prilosec), 40 MG PO DAILY Potassium Ext Rel (Klor-Con), 20 MEQ PO BID Propafenone Hcl (Propafenone Hcl), 150 MG PO TID Roflumilast (Daliresp), 1 TAB PO QAM Ropinirole (Requip), 5 MG PO QAM Sertraline (Zoloft), 25 MG PO QAM Umeclidinium Bard (Incruse Ellipta), 1 PUFF INH QAM Scheduled PRN Oxycodone/Acetaminophen 5MG/325MG (Percocet 5MG/325MG), 1 TABLET PO Q8 PRN for MODERATE/SEVERE PAIN Allergies Coded Allergies: Adhesives (Verified Allergy, Severe, RED RASH, 09/03/17) Latex1 -Allergic Contact Dermititis (Verified Adverse Reaction, Mild, TAPE -SORE, 09/03/17) Morphine (Verified Adverse Reaction, Mild, DELUSIONS, 09/03/17) Physical Exam Vital Signs Date Time Temp Pulse Resp B/P (MAP) Pulse Ox O2 Delivery O2 Flow Rate FiO2 09/03/17 15:18 71 23 131/50 97 Room Air 09/03/17 13:57 75 20 159/65 96 Nasal Cannula 4.0 09/03/17 13:06 72 20 146/52 95 Nebulizer 8.0 09/03/17 12:45 78 18 136/96 96 Nasal Cannula 4.0 09/03/17 11:26 77 20 135/62 97 Nasal Cannula 4.0 09/03/17 10:54 Nasal Cannula 4.0 09/03/17 10:54 Nasal Cannula 4.0 09/03/17 10:11 82 09/03/17 10:07 37.2 86 20 184/84 94 Nasal Cannula 4.0 Physical Exam GENERAL: Sitting up in bed, alert, well appearing, well nourished, in moderate distress, on nasal cannula oxygen. EYE EXAM: normal conjunctiva. PERRL and EOM's grossly intact. OROPHARYNX: no exudate, no erythema, lips, buccal mucosa, and tongue normal and mucous membranes are moist NECK: No JVD, supple, no nuchal rigidity, no adenopathy, non-tender LUNGS: Diffuse wheezing bilaterally. Normal chest wall mechanics HEART: no murmurs, S1 normal and S2 normal ABDOMEN: abdomen soft, non-tender, normo-active bowel sounds, no masses, no rebound or guarding. BACK: Back is symmetrical on inspection and there is no deformity, no midline tenderness, no CVA tenderness. SKIN: no rashes and no bruising UPPER EXTREMITIES: upper extremities are grossly normal. LOWER EXTREMITIES: Calves are equal, woundvac in place to right lower distal extremity. NEURO EXAM: Normal sensorium, cranial nerves II-XII grossly intact, normal speech, no gross weakness of arms, no gross weakness of legs. Gross sensation intact. Medical Decision & Procedures ER Provider Diagnostic Interpretation: Radiology results as stated below per my review and the radiologist's interpretation: CHEST 2 VIEWS ROUTINE FINDINGS: Right shoulder prosthesis. Vertebroplasty within the mid thoracic spine. No pneumothorax. The heart is mildly enlarged. Progressive interstitial thickening. Trace bilateral pleural effusion. IMPRESSION: Cardiomegaly with progressive interstitial thickening and a trace bilateral pleural effusions consistent with mild pulmonary edema. Electronically signed by: Henry Bourne M.D. Laboratory Results 09/03/17 10:45 Red Blood Count 2.97, Mean Corpuscular Volume 95.3, Mean Corpuscular Hemoglobin 30.0, Mean Corpuscular Hemoglobin Concent 31.4, Mean Platelet Volume 9.1, Neutrophils (%) (Auto) 82.2, Lymphocytes (%) (Auto) 8.0, Monocytes (%) (Auto) 8.2, Eosinophils (%) (Auto) 1.2, Basophils (%) (Auto) 0.2, Neutrophils # (Auto) 10.14, Lymphocytes # (Auto) 0.99, Monocytes # (Auto) 1.01, Eosinophils # (Auto) 0.15, Basophils # (Auto) 0.03 09/03/17 10:45 Test 09/03/17 10:35 09/03/17 10:45 09/03/17 11:25 09/03/17 13:37 Influenza Type A (RT-PCR) Neg for Influ A (NEG) Influenza Type A Antigen Neg for Influ A (NEG) Influenza Type B Antigen Neg for Influ B (NEG) Influenza Type B (RT-PCR) Neg for Influ B (NEG) White Blood Count 12.35 K/uL (4.8-10.8) Red Blood Count 2.97 M/uL (4.2-5.4) Hemoglobin 8.9 g/dL (12.0-16.0) Hematocrit 28.3 % (37-47) Mean Corpuscular Volume 95.3 fL (80-100) Mean Corpuscular Hemoglobin 30.0 pg (25-34) Mean Corpuscular Hemoglobin Concent 31.4 g/dl (32-36) Platelet Count 165 K/uL (130-400) Mean Platelet Volume 9.1 fL (7.4-10.4) Neutrophils (%) (Auto) 82.2 % Lymphocytes (%) (Auto) 8.0 % Monocytes (%) (Auto) 8.2 % Eosinophils (%) (Auto) 1.2 % Basophils (%) (Auto) 0.2 % Neutrophils # (Auto) 10.14 K/uL (1.4-6.5) Lymphocytes # (Auto) 0.99 K/uL (1.2-3.4) Monocytes # (Auto) 1.01 K/uL (0.11-0.59) Eosinophils # (Auto) 0.15 K/uL (0-0.5) Basophils # (Auto) 0.03 K/uL (0-0.2) RDW Standard Deviation 53.6 fL (36.4-46.3) RDW Coefficient of Variation 15.4 % (11.5-14.5) Immature Granulocyte % (Auto) 0.2 % Immature Granulocyte # (Auto) 0.03 K/uL (0.00-0.02) Stomatocytes 2+ Prothrombin Time 11.4 SECONDS (9.0-12.0) Prothromb Time International Ratio 1.1 (0.9-1.1) Activated Partial Thromboplast Time 24.0 SECONDS (21.0-31.0) Partial Thromboplastin Ratio 0.9 Anion Gap 5.0 mmol/L (3-11) Est Creatinine Clear Calc Drug Dose 55.9 ml/min Estimated GFR () 54.5 Estimated GFR (Non- 47.0 BUN/Creatinine Ratio 16.4 (10-20) Calcium Level 9.2 mg/dl (8.5-10.1) Total Bilirubin 0.3 mg/dl (0.2-1) Aspartate Amino Transf (AST/SGOT) 11 U/L (15-37) Alanine Aminotransferase (ALT/SGPT) 12 U/L (12-78) Alkaline Phosphatase 82 U/L (45-117) Troponin I < 0.015 ng/ml (0-0.045) Pro-B-Type Natriuretic Peptide 2310 pg/ml (0-900) Total Protein 6.8 gm/dl (6.4-8.2) Albumin 2.8 gm/dl (3.4-5.0) Globulin 4.0 gm/dl (2.5-4.0) Albumin/Globulin Ratio 0.7 (0.9-2) Procalcitonin 0.05 ng/ml (0-0.5) Urine Color YELLOW Urine Appearance CLEAR (CLEAR) Urine pH 5.5 (4.5-7.5) Urine Specific [place] 1.007 (1.000-1.030) Urine Protein NEG (NEG) Urine Glucose (UA) NEG (NEG) Urine Ketones NEG (NEG) Urine Occult Blood NEG (NEG) Urine Nitrite NEG (NEG) Urine Bilirubin NEG (NEG) Urine Urobilinogen NEG (NEG) Urine Leukocyte Esterase NEG (NEG) Urine WBC (Auto) 0 /hpf (0-5) Urine RBC (Auto) 0-4 /hpf (0-4) Urine Hyaline Casts (Auto) 1-5 /lpf (0-5) Urine Epithelial Cells (Auto) 0-5 /lpf (0-5) Urine Bacteria (Auto) NEG (NEG) Laboratory results per my review. Medications Administered Medications (Trade) Dose Ordered Sig/Rupinder Route Start Time Stop Time Status Last Admin Dose Admin Methylprednisolone Sodium Succinate (Solu-Medrol IV) 125 mg NOW STAT IV 09/03/17 10:17 09/03/17 10:19 DC 09/03/17 10:56 125 MG Albuterol Sulfate (Ventolin 0.083% 2.5MG/3ML Neb) 5 mg NOW STAT INH 09/03/17 10:17 09/03/17 10:19 DC 09/03/17 10:55 5 MG Levofloxacin (Levaquin / D5W) 750 mg NOW STAT IV 09/03/17 10:19 09/03/17 10:21 DC 09/03/17 10:56 750 MG Albuterol/ Ipratropium (Duoneb) 3 ml NOW STAT INH 09/03/17 12:50 09/03/17 12:51 DC 09/03/17 13:05 3 ML Acetaminophen (Tylenol Tab) 1,000 mg STK-MED ONCE PO 09/03/17 13:02 09/03/17 13:03 DC 09/03/17 13:05 1,000 MG ECG Per My Interpretation Indication: SOB/dyspnea Rate (beats per minute): 76 Rhythm: sinus rhythm Findings: other (no PVC, poor baseline, normal axis) ED Course ED COURSE: Vital signs were reviewed and showed hypertensive The patients medical record was reviewed The above diagnostic studies were performed and reviewed. ED treatments and interventions as stated above. 1008: The patient was evaluated in room B6. A complete history and physical examination was performed. 1017: Ordered Albuterol Sulfate 5 mg protocol, Alu-Medrol 125 mg IV. 1019: Ordered Levofloxacin 750 mg IV. 1045: The patient is resting comfortably. 1206: The patient is headed to X-ray. 1249: The patient is still feeling short of breath. 1251: Ordered Duoneb 3 ml INH. 1302: Ordered Acetaminophen 1000 mg PO. 1309: I reviewed the patient's case with Dr. Durán. She will evaluate the patient for further management. 1315: Ordered Furosemide 60 mg/syringe 6 ml @ 4 mls/min IV. 1317: Upon reevaluation, the patient is resting.I discussed my findings with the patient and she understands and agrees with the treatment plan. Based on the patients age, coexisting illnesses, exam and lab findings the decision to treat as an inpatient was made. The patient remained stable while under my care. The patient will be evaluated for further management. Medical Decision Differential diagnoses includes but is not limited to pneumonia, bronchitis, COPD/Asthma exacerbation, pneumothorax, pulmonary embolism, congestive heart failure, acute coronary syndrome. Patient is a 67-year-old female presents to the ER for shortness of breath which has been worsening over the past 24-48 hours. She also admits to a yellow productive cough over the same time period. She has vomited twice. Patient does have a history of COPD. She was given neb treatments and steroids. Abdominal exam is complete benign. Chest x-ray supports mild CHF. EKG was fairly unchanged. She is still very dyspneic. Influence was negative. She was given a dose of IV Levaquin. Based on her symptoms I do believe that this is most consistent with COPD and possibly a viral bronchitis. Patient will be worked up by internal medicine. Medication Reconcilliation Current Medication List: was personally reviewed by me Blood Pressure Screening Patient's blood pressure: Elevated blood pressure Blood pressure disposition: Referred to PCP Consults Time Called: 1301 Consulting Physician: Dr. Durán Returned Call: 1309 I reviewed the patient's case with Dr. Durán. She will evaluate the patient for further management. Impression Primary Impression: COPD exacerbation Additional Impression: Bronchitis Scribe Attestation The scribe's documentation has been prepared under my direction and personally reviewed by me in its entirety. I confirm that the note above accurately reflects all work, treatment, procedures, and medical decision making performed by me. Departure Information Dispostion Being Evaluated By Hospitalist Referrals Babak Melendez M.D.(RAMEZ) (PCP) Patient Instructions [facility] Problem Qualifiers
[2017-09-03] MEDS ORDERED: IV FLUIDS COMPLETED PRN ×2 (16:15→19:00)
[2017-09-03 17:08] VITALS: BP 153/77; PULSE 71; TEMP 36.7; O2SAT 95; Ht 162.6 cm; Wt 109.7 kg
[2017-09-03] MEDS: CEFTRIAXONE SOD INJ 1 GM in DEXTROSE 5% ADD-VANTAGE 50ML 50 ML IV SCH (18:20)
[2017-09-03] MEDS: LEVALBUTEROL 1.25MG/0.5ML NEB INH SCH (19:36)
[2017-09-03] MEDS: IPRATROPIUM BROMIDE NEB SOLN 0.02% 2.5 ML VIAL INH SCH (19:36)
[2017-09-03 19:37] VITALS: PULSE 65; O2SAT 98
[2017-09-03 19:44] VITALS: BP 156/69; PULSE 67; TEMP 36.9; O2SAT 96
[2017-09-03] MEDS: ACETAMINOPHEN 325 MG TAB PO PRN (20:19)
[2017-09-03] MEDS: HEPARIN SOD 5000 UNIT/0.5 ML CARP SQ SCH (20:19)
[2017-09-03] MEDS: OXYCODONE/ACETAMINOPHEN 5-325 TAB PO PRN (22:56)
[2017-09-03] MEDS: ONDANSETRON INJ 2 MG/ML 2 ML VIAL IV PRN (23:44)
[2017-09-04] VITALS (10 sets, daily range): BP systolic 122–145; BP diastolic 53–71; PULSE 62–74; TEMP 36.5–36.8; O2SAT 94–100
[2017-09-04] MEDS: IPRATROPIUM BROMIDE NEB SOLN 0.02% 2.5 ML VIAL INH SCH ×4 (01:44→19:23)
[2017-09-04] MEDS: LEVALBUTEROL 1.25MG/0.5ML NEB INH SCH ×4 (01:44→19:23)
[2017-09-04] MEDS: HEPARIN SOD 5000 UNIT/0.5 ML CARP SQ SCH ×3 (05:27→20:55)
[2017-09-04 06:50] LABS: HEMOGLOBIN 8.6 g/dL (12.0-16.0); MEAN CELL VOLUME 92.8 fL (80-100); MEAN CORPUSCULAR HEMOGLOBIN 29.6 pg (25-34); MEAN CORPUSCULAR HGB CONC 31.9 g/dl (32-36); MEAN PLATELET VOLUME 9.3 fL (7.4-10.4); PLATELET COUNT 166 K/uL (130-400); RED CELL DISTRIBUTION WIDTH CV 14.8 % (11.5-14.5); RED CELL DISTRIBUTION WIDTH SD 50.4 fL (36.4-46.3)
[2017-09-04 07:29] LABS: CALCIUM 9.1 mg/dl (8.5-10.1); CREATININE 1.48 mg/dl (0.60-1.20)
[2017-09-04] MEDS: ONDANSETRON INJ 2 MG/ML 2 ML VIAL IV PRN (07:40)
[2017-09-04] MEDS: ASPIRIN 81 MG ECTAB PO SCH (07:41)
[2017-09-04] MEDS: OXYCODONE/ACETAMINOPHEN 5-325 TAB PO PRN (07:41)
[2017-09-04] MEDS: AZITHROMYCIN 250 MG TAB PO SCH (07:41)
[2017-09-04] MEDS ORDERED: ZOLPIDEM TARTRATE 5 MG TAB PO ONE (09:00)
[2017-09-04] MEDS: SENNA 8.6 MG TAB PO SCH (09:00)
[2017-09-04] MEDS ORDERED: KETOROLAC TROMETHAMINE 15 MG/ML VIAL IV. ONE (09:15)
[2017-09-04] MEDS: MAGNESIUM SULFATE 1GM / D5W 1 GM in PREMIXED IN D5W 100 ML IV SCH ×2 (10:07→10:30)
[2017-09-04] MEDS: CEFTRIAXONE SOD INJ 1 GM in DEXTROSE 5% ADD-VANTAGE 50ML 50 ML IV SCH (16:57)
[2017-09-04] MEDS ORDERED: ALBUTEROL HFA 8 GM INHALER INH PRN (17:00)
[2017-09-04] MEDS: METOPROLOL SUCC 50MG EXT REL TAB PO SCH (18:28)
[2017-09-04] MEDS: BUMETANIDE 1 MG TAB PO SCH (18:28)
[2017-09-04] MEDS: FERROUS SULFATE 325 MG TAB PO SCH (18:29)
[2017-09-04] MEDS: CEROVITE ADV FORMULA TAB PO SCH (18:29)
[2017-09-04] MEDS: ROFLUMILAST 500 MCG TAB PO SCH (18:29)
[2017-09-04] MEDS: SERTRALINE HCL 50 MG TAB PO SCH (18:30)
[2017-09-04] MEDS: CHOLECALCIFEROL 1000 INTER.UNIT TAB PO SCH (18:30)
[2017-09-04] MEDS: ROPINIROLE HCL 5 MG TAB PO SCH (18:30)
[2017-09-04] MEDS: PANTOprazole SOD 40 MG TAB PO SCH (18:31)
[2017-09-04] MEDS: ALLOPURINOL 300 MG TAB PO SCH (18:31)
[2017-09-04] MEDS: ACETAMINOPHEN 325 MG TAB PO PRN (18:33)
[2017-09-04] MEDS ORDERED: OXYCODONE/ACETAMINOPHEN 10/325MG TAB PO STA (18:43)
--- NOTE | 2017-09-04 19:46 | Progress Note ---
Progress Note Date of Service Sep 04, 2017. Progress Note Subjective: patient does not appear to be acutely ill but reports coughing which is worse that has been making it difficult with her breathing, also complains of chronic shoulder pain Assessment and Plan Patient has at baseline poor lung function and cardiac disease. Primarily CHRONIC HYPOXEMIC RESPIRATORY FAILURE/ADVANCED COPD ON HOME 02 Also Chronic Diastolic Heart Failure Also SIMONA with use of CPAP Negative for flu. Will keep her in hospital for monitoring of respiratory status - continue Rocephin /Zithromax until sputum results finalized Continue diuretics to prevent fluid overload from Chronic Diastolic Heart Failure Shoulder pain and patient reported percocet not working for her. have been given dose of ketorolac as there are narcotic allergies However patient has renal insufficiency from CKD and on diuretic so NSAIDs need to be used sparingly Chronic Afib : cont Beta sandra and Propafenone /Rythmol, rate is controlled and transferred off telemetry Has been off anticoagulation due to lower ext large Hematoma /recent hx of lower GI bleed; continue aspirin Monitor HTN: on Beta sandra /ARB Continue wound vac for right lower extremity healing Anemia of chronic disease: cont Fe supplement Hypothyroidism: cont levothyroxine Depression: on SSRI -Zoloft FULL CODE DVT PROPHYLAXIS : SCD and teds PT/OT
[2017-09-04] MEDS: ATORVASTATIN 20 MG TAB PO SCH (20:46)
[2017-09-04] MEDS: POTASSIUM CHLORIDE 20 MEQ TABCR PO SCH (20:46)
[2017-09-04] MEDS: GABAPENTIN 600 MG TAB PO SCH (20:47)
[2017-09-04] MEDS: PROPAFENONE HCL 150 MG TAB PO SCH (20:47)
[2017-09-04] MEDS: HYDROmorphone INJ 0.5 MG/0.5 ML SYR IV PRN (22:06)
[2017-09-04] MEDS: BREO ELLIPTA: ORDER AWAITING ACTION SCH (23:31)
[2017-09-05] VITALS (13 sets, daily range): BP systolic 124–136; BP diastolic 66–75; PULSE 68–85; TEMP 36.3–36.7; O2SAT 90–99
[2017-09-05] MEDS: IPRATROPIUM BROMIDE NEB SOLN 0.02% 2.5 ML VIAL INH SCH ×5 (01:30→23:05)
[2017-09-05] MEDS: LEVALBUTEROL 1.25MG/0.5ML NEB INH SCH ×5 (01:31→23:05)
[2017-09-05] MEDS: LEVOTHYROXINE 88 MCG TAB PO SCH (05:42)
[2017-09-05] MEDS: HEPARIN SOD 5000 UNIT/0.5 ML CARP SQ SCH ×3 (05:45→20:07)
[2017-09-05] MEDS: OXYCODONE/ACETAMINOPHEN 5-325 TAB PO PRN ×2 (05:48→20:09)
[2017-09-05] MEDS ORDERED: ASPIRIN 81 MG ECTAB PO SCH (08:00)
[2017-09-05] MEDS: SENNA 8.6 MG TAB PO SCH (08:00)
[2017-09-05] MEDS: BREO ELLIPTA: ORDER AWAITING ACTION SCH ×3 (08:00→23:42)
[2017-09-05] MEDS: METOPROLOL SUCC 50MG EXT REL TAB PO SCH (08:22)
[2017-09-05] MEDS: CHOLECALCIFEROL 1000 INTER.UNIT TAB PO SCH (08:23)
[2017-09-05] MEDS: PANTOprazole SOD 40 MG TAB PO SCH (08:23)
[2017-09-05] MEDS: ASPIRIN 81 MG ECTAB PO SCH (08:23)
[2017-09-05] MEDS: POTASSIUM CHLORIDE 20 MEQ TABCR PO SCH ×2 (08:23→20:12)
[2017-09-05] MEDS: SERTRALINE HCL 50 MG TAB PO SCH (08:23)
[2017-09-05] MEDS: GABAPENTIN 600 MG TAB PO SCH ×3 (08:24→20:02)
[2017-09-05] MEDS: AZITHROMYCIN 250 MG TAB PO SCH (08:24)
[2017-09-05] MEDS: ALLOPURINOL 300 MG TAB PO SCH (08:24)
[2017-09-05] MEDS: FERROUS SULFATE 325 MG TAB PO SCH (08:24)
[2017-09-05] MEDS: ROFLUMILAST 500 MCG TAB PO SCH (08:24)
[2017-09-05] MEDS: PROPAFENONE HCL 150 MG TAB PO SCH ×3 (08:25→20:03)
[2017-09-05] MEDS: ROPINIROLE HCL 5 MG TAB PO SCH (08:26)
[2017-09-05] MEDS: BUMETANIDE 1 MG TAB PO SCH ×2 (08:26→17:09)
[2017-09-05] MEDS: CEROVITE ADV FORMULA TAB PO SCH (08:26)
[2017-09-05 08:57] LABS: HEMATOCRIT 27.4 % (37-47); HEMOGLOBIN 8.5 g/dL (12.0-16.0); MEAN CELL VOLUME 96.8 fL (80-100); MEAN PLATELET VOLUME 8.9 fL (7.4-10.4); PLATELET COUNT 175 K/uL (130-400); RED CELL DISTRIBUTION WIDTH CV 15.4 % (11.5-14.5); RED CELL DISTRIBUTION WIDTH SD 54.2 fL (36.4-46.3); WHITE BLOOD COUNT 13.31 K/uL (4.8-10.8)
--- NOTE | 2017-09-05 09:26 | DIAGNOSTIC IMAGING REPORT ---
CHEST 2 VIEWS ROUTINE CLINICAL HISTORY: shortness of breath COMPARISON STUDY: 09/03/2017 FINDINGS: The heart remains enlarged. There is mild residual thickening, consistent with subtle interstitial edema. Postprocedural changes are prior vertebroplasty are again evident. There are developing nodular airspace opacities at the right lung base, likely inflammatory/infectious[ IMPRESSION: 1. Subtle nodular airspace opacities the right lung base, likely infectious/inflammatory. Radiographic follow-up is recommended. 2. Stable mild interstitial thickening/edema Electronically signed by: Fox Garcia M.D. 09/05/2017 9:25 AM Dictated Date/Time: 09/05/2017 9:23 AM
[2017-09-05 09:34] LABS: CALCIUM 9.3 mg/dl (8.5-10.1); CREATININE 1.36 mg/dl (0.60-1.20); POTASSIUM 3.8 mmol/L (3.5-5.1)
[2017-09-05] MEDS: LIDODERM (LIDOCAINE) PATCH 5% TD SCH (10:10)
[2017-09-05] MEDS: ONDANSETRON INJ 2 MG/ML 2 ML VIAL IV PRN (12:46)
--- NOTE | 2017-09-05 16:14 | Progress Note ---
Progress Note Date of Service Sep 05, 2017. Progress Note Subjective: Yesterday night, patient has struggled with left shoulder pain which was tender to palpation as patient reports that she has been having the left shoulder pain after falling down in the past. At same time she reported that her breathing "was not right." Patient was given pain medications and started on BIPAP. She reported this AM that the breathing is better. But patient having coughing and reports that her breathing is 80% of her baseline Physical Exam General: on nasal cannula, not in acute distress Lungs: rhonchi, gurgling noises of throat Heart: regular rate Abdomen: truncal obesity, soft, nontender, Extremities: presence of wound va Assessment and Plan This is a patient at baseline with poor lung function and cardiac disease and primarily with chronic hypoxemic respiratory failure on home oxygen and on advanced COPD medications including roflumilast with SIMONA and chronic diastolic heart failure who presented to the ED for multiple symptoms of productive yellow cough, chills, body aches, vomiting, and SOB. Patient is negative for flu. But struggles with coughing and reporting that her breathing is not right Initial CXR did not find evidence for pneumonia and procalcitonin negative but follow up CXR 09/05/17 Subtle nodular airspace opacities the right lung base, likely infectious/inflammatory sputum culture from admission normal genoveva given that there is unclear evidence for pneumonia in a patient with multiple cardiac respiratory co-morbidities, will continue antibiotics of Rocephin / Zithromax for now chest PT and suctioning to attempt to remove possible oral secretions or mucous plugs will need repeat CXR Continue nebulizers and home inhalers in a patient with COPD exacerbation Left Shoulder pain better today. Continue to monitor Patient has renal insufficiency from CKD and on diuretic so NSAIDs for need to be used sparingly Continue diuretics to prevent fluid overload from Chronic Diastolic Heart Failure Chronic Afib : cont Beta sandra and Propafenone /Rythmol, rate is controlled Has been off anticoagulation due to lower ext large Hematoma /recent hx of lower GI bleed; continue aspirin Monitor HTN: on Beta sandra /ARB Continue wound vac for right lower extremity healing Anemia of chronic disease: cont Fe supplement Hypothyroidism: cont levothyroxine Depression: on SSRI -Zoloft FULL CODE DVT PROPHYLAXIS : SCD and teds PT/OT Disposition: keep in hospital for now
[2017-09-05] MEDS: CEFTRIAXONE SOD INJ 1 GM in DEXTROSE 5% ADD-VANTAGE 50ML 50 ML IV SCH (17:06)
[2017-09-05] MEDS: ATORVASTATIN 20 MG TAB PO SCH (20:03)
[2017-09-06] VITALS (9 sets, daily range): BP systolic 119–155; BP diastolic 68–77; PULSE 72–89; TEMP 36.6–37; O2SAT 92–98
[2017-09-06] MEDS ORDERED: MAGNESIUM SULFATE 1GM / D5W 1 GM in PREMIXED IN D5W 100 ML IV SCH (00:30)
[2017-09-06] MEDS: IPRATROPIUM BROMIDE NEB SOLN 0.02% 2.5 ML VIAL INH SCH ×6 (03:23→23:34)
[2017-09-06] MEDS: LEVALBUTEROL 1.25MG/0.5ML NEB INH SCH ×6 (03:23→23:34)
[2017-09-06] MEDS: LEVOTHYROXINE 88 MCG TAB PO SCH (04:29)
[2017-09-06] MEDS: OXYCODONE/ACETAMINOPHEN 5-325 TAB PO PRN ×2 (04:29→21:07)
[2017-09-06] MEDS: HEPARIN SOD 5000 UNIT/0.5 ML CARP SQ SCH ×3 (04:29→21:06)
[2017-09-06] MEDS: HYDROmorphone INJ 0.5 MG/0.5 ML SYR IV PRN (06:26)
[2017-09-06 06:45] LABS: HEMATOCRIT 27.8 % (37-47); HEMOGLOBIN 8.6 g/dL (12.0-16.0); MEAN CELL VOLUME 95.5 fL (80-100); MEAN CORPUSCULAR HEMOGLOBIN 29.6 pg (25-34); MEAN CORPUSCULAR HGB CONC 30.9 g/dl (32-36); MEAN PLATELET VOLUME 8.8 fL (7.4-10.4); PLATELET COUNT 172 K/uL (130-400); RED CELL DISTRIBUTION WIDTH CV 15.4 % (11.5-14.5); RED CELL DISTRIBUTION WIDTH SD 53.8 fL (36.4-46.3); WHITE BLOOD COUNT 12.69 K/uL (4.8-10.8)
[2017-09-06 07:21] LABS: CALCIUM 9.6 mg/dl (8.5-10.1); CREATININE 1.46 mg/dl (0.60-1.20); POTASSIUM 3.8 mmol/L (3.5-5.1)
[2017-09-06] MEDS: BREO ELLIPTA: ORDER AWAITING ACTION SCH ×3 (08:00→23:24)
[2017-09-06] MEDS: METOPROLOL SUCC 50MG EXT REL TAB PO SCH (08:12)
[2017-09-06] MEDS: PANTOprazole SOD 40 MG TAB PO SCH (08:13)
[2017-09-06] MEDS: CEROVITE ADV FORMULA TAB PO SCH (08:13)
[2017-09-06] MEDS: AZITHROMYCIN 250 MG TAB PO SCH (08:13)
[2017-09-06] MEDS: SENNA 8.6 MG TAB PO SCH (08:13)
[2017-09-06] MEDS: ASPIRIN 81 MG ECTAB PO SCH (08:14)
[2017-09-06] MEDS: SERTRALINE HCL 50 MG TAB PO SCH (08:14)
[2017-09-06] MEDS: ROFLUMILAST 500 MCG TAB PO SCH (08:14)
[2017-09-06] MEDS: ALLOPURINOL 300 MG TAB PO SCH (08:14)
[2017-09-06] MEDS: ROPINIROLE HCL 5 MG TAB PO SCH (08:15)
[2017-09-06] MEDS: POTASSIUM CHLORIDE 20 MEQ TABCR PO SCH ×2 (08:15→20:54)
[2017-09-06] MEDS: GABAPENTIN 600 MG TAB PO SCH ×3 (08:15→20:55)
[2017-09-06] MEDS: LIDODERM (LIDOCAINE) PATCH 5% TD SCH (08:16)
[2017-09-06] MEDS: PROPAFENONE HCL 150 MG TAB PO SCH ×3 (08:16→20:55)
[2017-09-06] MEDS: FERROUS SULFATE 325 MG TAB PO SCH (08:17)
[2017-09-06] MEDS: CHOLECALCIFEROL 1000 INTER.UNIT TAB PO SCH (08:17)
[2017-09-06] MEDS: BUMETANIDE 1 MG TAB PO SCH ×2 (08:17→17:38)
[2017-09-06] MEDS ORDERED: METOLAZONE 2.5 MG TAB PO SCH (08:30)
[2017-09-06] MEDS: MAGNESIUM SULFATE 1GM / D5W 1 GM in PREMIXED IN D5W 100 ML IV SCH ×2 (13:21→14:16)
--- NOTE | 2017-09-06 14:26 | DIAGNOSTIC IMAGING REPORT ---
CHEST 2 VIEWS ROUTINE CLINICAL HISTORY: 67 years-old Female presenting with follow up chest x ray. TECHNIQUE: AP and lateral views of the chest were obtained. COMPARISON: 09/05/2017. FINDINGS: Atherosclerosis of aortic arch. Cardiac silhouette enlarged. Persistent bandlike opacity in the right lower lung. Slight decreased aeration of the left lung base. A left pleural effusion may be present. No pneumothorax. Right shoulder arthroplasty. Degenerative changes of the spine. Posttreatment changes of kyphoplasty noted. Osteopenia suspected. Upper abdomen normal. IMPRESSION: 1. Persistent bandlike opacity in the right lower lung, which may represent extensive atelectasis. This should be followed to resolution. 2. Worsened left basilar aeration with increasing atelectasis. Left pleural effusion may also be present. Electronically signed by: Mukund Tirado M.D. 09/06/2017 2:24 PM Dictated Date/Time: 09/06/2017 2:21 PM
--- NOTE | 2017-09-06 17:05 | Progress Note ---
Internal Med Progress Note Date of Service: Sep 06, 2017. Provider Documentation: Subjective: Patient has not had episodes of respiratory distress today. However chest X ray 1. Persistent bandlike opacity in the right lower lung, which may represent extensive atelectasis. This should be followed to resolution. 2. Worsened left basilar aeration with increasing atelectasis. Left pleural effusion may also be present. Physical Exam General: on nasal cannula, not in acute distress Lungs: rhonchi, good air entry, no wheezing Heart: regular rate Abdomen: truncal obesity, soft, nontender, Extremities: presence of wound vac ASSESSMENT & PLAN: Assessment and Plan This is a patient at baseline with poor lung function and cardiac disease and primarily with chronic hypoxemic respiratory failure on home oxygen and on advanced COPD medications including roflumilast with SIMONA and chronic diastolic heart failure who presented to the ED for multiple symptoms of productive yellow cough, chills, body aches, vomiting, and SOB. Patient is negative for flu. But during this hospital stay she struggles with coughing and has reported that her breathing is not right Initial CXR did not find evidence for pneumonia and procalcitonin negative but follow up CXR 09/05/17 Subtle nodular airspace opacities the right lung base, likely infectious/inflammatory sputum culture from admission normal genoveva However follow up chest chest X ray concerning for more areas of infiltration: 1. Persistent bandlike opacity in the right lower lung, which may represent extensive atelectasis. This should be followed to resolution. 2. Worsened left basilar aeration with increasing atelectasis. Left pleural effusion may also be present. will continue antibiotics of Rocephin /Zithromax which was started on admission if further changes in respiratory status of CXR images, will consider expanding antibiotic coverage Continue nebulizers and home inhalers in a patient with COPD exacerbation Continue diuretics to prevent fluid overload from Chronic Diastolic Heart Failure Patient has renal insufficiency from CKD and on diuretic so NSAIDs for need to be used sparingly Chronic Afib : cont Beta sandra and Propafenone /Rythmol, rate is controlled Has been off anticoagulation due to lower ext large Hematoma /recent hx of lower GI bleed; continue aspirin Monitor HTN: on Beta sandra /ARB Left Shoulder pain better today. Continue to monitor, pain medications including lidocaine patch Continue wound vac for right lower extremity healing Anemia of chronic disease: cont Fe supplement Hypothyroidism: cont levothyroxine Depression: on SSRI -Zoloft FULL CODE DVT PROPHYLAXIS : SCD and teds PT/OT Disposition: keep in hospital for now, patient family member daughter Noreen notified [phone] about inpatient disposition Patient does have outpatient follow up scheduled Vital Signs: Date Time Temp Pulse Resp B/P (MAP) Pulse Ox O2 Delivery O2 Flow Rate FiO2 09/06/17 15:59 36.7 78 19 128/71 (90) 98 Nasal Cannula 4.0 09/06/17 14:43 81 18 95 Nasal Cannula 4.0 09/06/17 11:08 72 18 96 Nasal Cannula 4.0 09/06/17 09:59 Nasal Cannula 4.0 09/06/17 08:45 36.6 86 18 119/68 (85) 93 Nasal Cannula 4.0 09/06/17 08:00 37.0 89 21 155/77 (103) 92 Nasal Cannula 4.0 09/06/17 07:12 83 20 94 Nasal Cannula 4.0 09/06/17 03:23 72 18 96 BiPAP/CPAP 4.0 09/05/17 23:22 36.6 81 20 124/66 (85) 90 BiPAP 09/05/17 23:05 74 18 93 BiPAP/CPAP 4.0 09/05/17 20:09 76 18 98 Nasal Cannula 4.0 09/05/17 20:05 Nasal Cannula 4.0 Lab Results: Results Past 24 Hours Test 09/06/17 06:21 Range/Units White Blood Count 12.69 4.8-10.8 K/uL Red Blood Count 2.91 4.2-5.4 M/uL Hemoglobin 8.6 12.0-16.0 g/dL Hematocrit 27.8 37-47 % Mean Corpuscular Volume 95.5 80-100 fL Mean Corpuscular Hemoglobin 29.6 25-34 pg Mean Corpuscular Hemoglobin Concent 30.9 32-36 g/dl RDW Standard Deviation 53.8 36.4-46.3 fL RDW Coefficient of Variation 15.4 11.5-14.5 % Platelet Count 172 130-400 K/uL Mean Platelet Volume 8.8 7.4-10.4 fL Sodium Level 135 136-145 mmol/L Potassium Level 3.8 3.5-5.1 mmol/L Chloride Level 90 98-107 mmol/L Carbon Dioxide Level 40 21-32 mmol/L Anion Gap 5.0 3-11 mmol/L Blood Urea Nitrogen 29 7-18 mg/dl Creatinine 1.46 0.60-1.20 mg/dl Est Creatinine Clear Calc Drug Dose 44.0 ml/min Estimated GFR () 42.1 Estimated GFR (Non- 36.3 BUN/Creatinine Ratio 19.8 10-20 Random Glucose 87 70-99 mg/dl Calcium Level 9.6 8.5-10.1 mg/dl Magnesium Level 1.6 1.8-2.4 mg/dl Procalcitonin 0.10 0-0.5 ng/ml
[2017-09-06] MEDS: CEFTRIAXONE SOD INJ 1 GM in DEXTROSE 5% ADD-VANTAGE 50ML 50 ML IV SCH (17:38)
[2017-09-06] MEDS: ONDANSETRON INJ 2 MG/ML 2 ML VIAL IV PRN (17:46)
[2017-09-06] MEDS: ATORVASTATIN 20 MG TAB PO SCH (20:54)
[2017-09-07] VITALS (10 sets, daily range): BP systolic 121–155; BP diastolic 68–82; PULSE 74–86; TEMP 36.8; O2SAT 90–97
[2017-09-07] MEDS: HYDROmorphone INJ 0.5 MG/0.5 ML SYR IV PRN ×2 (02:46→18:27)
[2017-09-07] MEDS: IPRATROPIUM BROMIDE NEB SOLN 0.02% 2.5 ML VIAL INH SCH ×6 (03:09→23:15)
[2017-09-07] MEDS: LEVALBUTEROL 1.25MG/0.5ML NEB INH SCH ×6 (03:09→23:15)
[2017-09-07] MEDS: LEVOTHYROXINE 88 MCG TAB PO SCH (06:02)
[2017-09-07] MEDS: HEPARIN SOD 5000 UNIT/0.5 ML CARP SQ SCH ×3 (06:03→20:12)
[2017-09-07] MEDS: OXYCODONE/ACETAMINOPHEN 5-325 TAB PO PRN ×2 (06:20→16:15)
[2017-09-07 07:56] LABS: HEMATOCRIT 28.6 % (37-47); MEAN CELL VOLUME 94.7 fL (80-100); MEAN CORPUSCULAR HEMOGLOBIN 29.8 pg (25-34); MEAN CORPUSCULAR HGB CONC 31.5 g/dl (32-36); MEAN PLATELET VOLUME 8.6 fL (7.4-10.4); NUCLEATED RED BLOOD CELL ABS 0.02 K/uL (0-0); PLATELET COUNT 190 K/uL (130-400); RED CELL DISTRIBUTION WIDTH CV 15.3 % (11.5-14.5); RED CELL DISTRIBUTION WIDTH SD 52.2 fL (36.4-46.3); WHITE BLOOD COUNT 13.98 K/uL (4.8-10.8)
[2017-09-07] MEDS: BREO ELLIPTA: ORDER AWAITING ACTION SCH ×3 (08:00→23:21)
[2017-09-07 08:31] LABS: CALCIUM 9.7 mg/dl (8.5-10.1); CREATININE 1.61 mg/dl (0.60-1.20)
[2017-09-07] MEDS: FERROUS SULFATE 325 MG TAB PO SCH (09:34)
[2017-09-07] MEDS: CHOLECALCIFEROL 1000 INTER.UNIT TAB PO SCH (09:34)
[2017-09-07] MEDS: SENNA 8.6 MG TAB PO SCH (09:35)
[2017-09-07] MEDS: BUMETANIDE 1 MG TAB PO SCH (09:35)
[2017-09-07] MEDS: AZITHROMYCIN 250 MG TAB PO SCH (09:37)
[2017-09-07] MEDS: ROPINIROLE HCL 5 MG TAB PO SCH (09:37)
[2017-09-07] MEDS: ASPIRIN 81 MG ECTAB PO SCH (09:37)
[2017-09-07] MEDS: ALLOPURINOL 300 MG TAB PO SCH (09:38)
[2017-09-07] MEDS: POTASSIUM CHLORIDE 20 MEQ TABCR PO SCH ×2 (09:38→20:11)
[2017-09-07] MEDS: PROPAFENONE HCL 150 MG TAB PO SCH ×3 (09:38→20:11)
[2017-09-07] MEDS: GABAPENTIN 600 MG TAB PO SCH ×3 (09:39→20:11)
[2017-09-07] MEDS: LIDODERM (LIDOCAINE) PATCH 5% TD SCH (09:39)
[2017-09-07] MEDS: CEROVITE ADV FORMULA TAB PO SCH (09:40)
[2017-09-07] MEDS: SERTRALINE HCL 50 MG TAB PO SCH (09:40)
[2017-09-07] MEDS: PANTOprazole SOD 40 MG TAB PO SCH (09:40)
[2017-09-07] MEDS: METOPROLOL SUCC 50MG EXT REL TAB PO SCH (09:40)
[2017-09-07] MEDS: ROFLUMILAST 500 MCG TAB PO SCH (09:42)
[2017-09-07] MEDS: ONDANSETRON INJ 2 MG/ML 2 ML VIAL IV PRN (11:02)
[2017-09-07] MEDS: CEFTRIAXONE SOD INJ 1 GM in DEXTROSE 5% ADD-VANTAGE 50ML 50 ML IV SCH (16:56)
--- NOTE | 2017-09-07 18:15 | Progress Note ---
Internal Med Progress Note Date of Service: Sep 07, 2017. Provider Documentation: SUBJECTIVE: resting comfortably sob is better denies chest pain no nausea no fevers complains of left shoulder pain from muscle tear-fell recently OBJECTIVE: Vital Signs-as noted below Exam: General-alert and Oriented. Not in distress. ENT-normal hearing Neck-no neck masses Lungs-cta b/l no wheezing or crackles Heart-s1 and s2 heard regular no murmurs Abdomen-soft bowel sounds present non tender no distension Extremities-no edema no erythema Neuro-alert and awake moves extremities Lab data as noted below. ASSESSMENT & PLAN: This is a patient at baseline with poor lung function and cardiac disease and primarily with chronic hypoxemic respiratory failure on home oxygen and on advanced COPD medications including roflumilast with SIMONA and chronic diastolic heart failure who presented to the ED for multiple symptoms of productive yellow cough, chills, body aches, vomiting, and SOB. Patient is negative for flu. But during this hospital stay she struggles with coughing and has reported that her breathing is not right Acue on chronic respiratory failure copd ex Pneumonia? flu negative on Rocephin and azithromycin Continue nebulizers and home inhalers will monitor. Chronic Diastolic Heart Failure holding Bumex for ARF will monitor for any volume overload. ARF on CKD3 cr 1.6 today holding Bumex f/u labs in am. Chronic Afib : on Beta sandra and Propafenone /Rythmol, rate is controlled. Has been off anticoagulation due to lower ext large Hematoma /recent hx of lower GI bleed; continue aspirin HTN: on Beta sandra /ARB. Will monitor Left Shoulder pain better today. pain medications, lidocaine patch Continue wound vac for right lower extremity healing Anemia of chronic disease: cont Fe supplement Hypothyroidism: cont levothyroxine Depression: on SSRI -Zoloft FULL CODE DVT PROPHYLAXIS : SCD and teds PT/OT DISPOSITION monitor in medical floor to be determined Vital Signs: Date Time Temp Pulse Resp B/P (MAP) Pulse Ox O2 Delivery O2 Flow Rate FiO2 09/07/17 16:00 Nasal Cannula 3.0 09/07/17 15:41 36.8 86 20 149/82 (104) 96 Nasal Cannula 2.0 09/07/17 14:29 80 18 96 Nasal Cannula 4.0 09/07/17 14:27 86 145/76 (99) 2/27/18 11:40 80 18 94 Nasal Cannula 4.0 09/07/17 10:22 Nasal Cannula 3.0 09/07/17 07:26 36.8 78 20 155/75 (101) 97 Nasal Cannula 3.0 09/07/17 07:04 80 20 93 Nasal Cannula 4.0 09/07/17 03:11 80 20 90 BiPAP/CPAP 6.0 09/07/17 01:07 36.8 74 20 121/68 (85) 92 Room Air 09/07/17 00:19 BiPAP CPAP 09/06/17 23:35 74 18 93 BiPAP/CPAP 6.0 09/06/17 18:56 73 18 93 Nasal Cannula 4.0 Lab Results: Results Past 24 Hours Test 09/07/17 07:33 Range/Units White Blood Count 13.98 4.8-10.8 K/uL Red Blood Count 3.02 4.2-5.4 M/uL Hemoglobin 9.0 12.0-16.0 g/dL Hematocrit 28.6 37-47 % Mean Corpuscular Volume 94.7 80-100 fL Mean Corpuscular Hemoglobin 29.8 25-34 pg Mean Corpuscular Hemoglobin Concent 31.5 32-36 g/dl RDW Standard Deviation 52.2 36.4-46.3 fL RDW Coefficient of Variation 15.3 11.5-14.5 % Platelet Count 190 130-400 K/uL Mean Platelet Volume 8.6 7.4-10.4 fL Nucleated RBC Absolute Count (auto) 0.02 0-0 K/uL Nucleated Red Blood Cells % 0.1 % Sodium Level 132 136-145 mmol/L Potassium Level 4.0 3.5-5.1 mmol/L Chloride Level 86 98-107 mmol/L Carbon Dioxide Level 45 21-32 mmol/L Anion Gap 3.0 3-11 mmol/L Blood Urea Nitrogen 31 7-18 mg/dl Creatinine 1.61 0.60-1.20 mg/dl Est Creatinine Clear Calc Drug Dose 39.9 ml/min Estimated GFR () 37.4 Estimated GFR (Non- 32.3 BUN/Creatinine Ratio 19.0 10-20 Random Glucose 95 70-99 mg/dl Calcium Level 9.7 8.5-10.1 mg/dl Magnesium Level 1.9 1.8-2.4 mg/dl
[2017-09-07] MEDS: ATORVASTATIN 20 MG TAB PO SCH (20:11)
[2017-09-08] VITALS (8 sets, daily range): BP systolic 129–156; BP diastolic 73–78; PULSE 79–91; TEMP 36.7–36.8; O2SAT 91–96
[2017-09-08] MEDS: IPRATROPIUM BROMIDE NEB SOLN 0.02% 2.5 ML VIAL INH SCH ×5 (03:05→19:35)
[2017-09-08] MEDS: LEVALBUTEROL 1.25MG/0.5ML NEB INH SCH ×4 (03:05→15:17)
[2017-09-08] MEDS: HYDROmorphone INJ 0.5 MG/0.5 ML SYR IV PRN (03:10)
[2017-09-08] MEDS: HEPARIN SOD 5000 UNIT/0.5 ML CARP SQ SCH ×3 (06:05→20:43)
[2017-09-08] MEDS: LEVOTHYROXINE 88 MCG TAB PO SCH (06:07)
[2017-09-08] MEDS: BREO ELLIPTA: ORDER AWAITING ACTION SCH ×2 (07:11→16:00)
[2017-09-08] MEDS: ALLOPURINOL 300 MG TAB PO SCH (07:26)
[2017-09-08] MEDS: PROPAFENONE HCL 150 MG TAB PO SCH ×3 (07:26→20:37)
[2017-09-08] MEDS: AZITHROMYCIN 250 MG TAB PO SCH (07:26)
[2017-09-08] MEDS: GABAPENTIN 600 MG TAB PO SCH ×3 (07:26→20:37)
[2017-09-08] MEDS: ROPINIROLE HCL 5 MG TAB PO SCH (07:27)
[2017-09-08] MEDS: ROFLUMILAST 500 MCG TAB PO SCH (07:27)
[2017-09-08] MEDS: SENNA 8.6 MG TAB PO SCH (07:27)
[2017-09-08] MEDS: METOPROLOL SUCC 50MG EXT REL TAB PO SCH (07:27)
[2017-09-08] MEDS: POTASSIUM CHLORIDE 20 MEQ TABCR PO SCH (07:30)
[2017-09-08] MEDS: CEROVITE ADV FORMULA TAB PO SCH (07:31)
[2017-09-08] MEDS: ASPIRIN 81 MG ECTAB PO SCH (07:31)
[2017-09-08] MEDS: SERTRALINE HCL 50 MG TAB PO SCH (07:31)
[2017-09-08] MEDS: PANTOprazole SOD 40 MG TAB PO SCH (07:31)
[2017-09-08] MEDS: CHOLECALCIFEROL 1000 INTER.UNIT TAB PO SCH (07:33)
[2017-09-08] MEDS: FERROUS SULFATE 325 MG TAB PO SCH (07:33)
[2017-09-08] MEDS: LIDODERM (LIDOCAINE) PATCH 5% TD SCH (07:33)
[2017-09-08 08:52] LABS: CALCIUM 10.3 mg/dl (8.5-10.1); CREATININE 1.53 mg/dl (0.60-1.20)
[2017-09-08] MEDS ORDERED: LEVALBUTEROL/IPRATROPIUM NEB INH PRN (16:30)
[2017-09-08] MEDS: OXYCODONE/ACETAMINOPHEN 5-325 TAB PO PRN (16:44)
[2017-09-08] MEDS ORDERED: IPRATROPIUM BROMIDE NEB SOLN 0.02% 2.5 ML VIAL INH PRN ×2 (16:45)
[2017-09-08] MEDS ORDERED: LEVALBUTEROL 1.25MG/0.5ML NEB INH PRN ×2 (16:45)
[2017-09-08] MEDS: LEVALBUTEROL 0.63MG/3 ML NEB INH SCH (19:35)
--- NOTE | 2017-09-08 19:41 | Progress Note ---
Internal Med Progress Note Date of Service: Sep 08, 2017. Provider Documentation: SUBJECTIVE: resting comfortably complains of tremors says sob is ok cough is ok denies chest pain ambulating ok afebrile OBJECTIVE: Vital Signs-as noted below Exam: General-alert and Oriented. Not in distress.mild tremors ENT-normal hearing Neck-no neck masses Lungs-cta b/l no wheezing or crackles Heart-s1 and s2 heard regular no murmurs Abdomen-soft bowel sounds present non tender no distension Extremities-no edema no erythema Neuro-alert and awake moves extremities Lab data as noted below. ASSESSMENT & PLAN: This is a patient at baseline with poor lung function and cardiac disease and primarily with chronic hypoxemic respiratory failure on home oxygen and on advanced COPD medications including roflumilast with SIMONA and chronic diastolic heart failure who presented to the ED for multiple symptoms of productive yellow cough, chills, body aches, vomiting, and SOB. Patient is negative for flu. But during this hospital stay she struggles with coughing and has reported that her breathing is not right Acute on chronic respiratory failure copd ex Pneumonia? flu negative on Rocephin and azithromycin# 5 stopped abx Continue nebulizers and home inhalers cut back on nebs as patient having tremors will monitor. Chronic Diastolic Heart Failure holding Bumex for ARF will monitor for any volume overload. stable ARF on CKD3 cr 1.5 today holding Bumex f/u labs in am. Chronic Afib : on Beta sandra and Propafenone /Rythmol, rate is controlled. Has been off anticoagulation due to lower ext large Hematoma /recent hx of lower GI bleed; continue aspirin Stable conditions: HTN: on Beta sandra /ARB. Will monitor Left Shoulder pain better today. pain medications, lidocaine patch Continue wound vac for right lower extremity healing Anemia of chronic disease: cont Fe supplement Hypothyroidism: cont levothyroxine Depression: on SSRI -Zoloft FULL CODE DVT PROPHYLAXIS : SCD and teds PT/OT DISPOSITION monitor in medical floor to be determined Vital Signs: Date Time Temp Pulse Resp B/P (MAP) Pulse Ox O2 Delivery O2 Flow Rate FiO2 09/08/17 16:21 36.7 91 18 156/77 (103) 94 Nasal Cannula 4.0 09/08/17 16:00 Nasal Cannula 4.0 09/08/17 15:31 90 147/75 (99) 09/08/17 11:15 79 18 95 Nasal Cannula 4.0 09/08/17 08:00 Nasal Cannula 4.0 09/08/17 07:46 36.7 81 18 145/77 (99) 92 4.0 09/08/17 06:57 85 18 91 Nasal Cannula 4.0 09/08/17 04:52 84 18 96 BiPAP/CPAP 4.0 09/08/17 00:30 BiPAP 4.0 09/08/17 00:00 36.8 83 18 129/73 (91) 94 BiPAP 09/07/17 23:15 82 18 96 BiPAP/CPAP 4.0 Lab Results: Results Past 24 Hours Test 09/08/17 07:47 Range/Units Sodium Level 132 136-145 mmol/L Potassium Level 4.0 3.5-5.1 mmol/L Chloride Level 85 98-107 mmol/L Carbon Dioxide Level 43 21-32 mmol/L Anion Gap 4.0 3-11 mmol/L Blood Urea Nitrogen 30 7-18 mg/dl Creatinine 1.53 0.60-1.20 mg/dl Est Creatinine Clear Calc Drug Dose 42.0 ml/min Estimated GFR () 39.8 Estimated GFR (Non- 34.3 BUN/Creatinine Ratio 19.5 10-20 Random Glucose 108 70-99 mg/dl Calcium Level 10.3 8.5-10.1 mg/dl Magnesium Level 2.1 1.8-2.4 mg/dl
[2017-09-08] MEDS ORDERED: LEVALBUTEROL/IPRATROPIUM NEB INH SCH (20:00)
[2017-09-08] MEDS: ATORVASTATIN 20 MG TAB PO SCH (20:37)
[2017-09-09 00:31] VITALS: BP 139/80; PULSE 76; TEMP 36.8; O2SAT 91
[2017-09-09] MEDS: BREO ELLIPTA: ORDER AWAITING ACTION SCH ×3 (00:59→15:35)
[2017-09-09] MEDS: OXYCODONE/ACETAMINOPHEN 5-325 TAB PO PRN ×2 (04:31→18:33)
[2017-09-09] MEDS: LEVOTHYROXINE 88 MCG TAB PO SCH (06:23)
[2017-09-09] MEDS: HEPARIN SOD 5000 UNIT/0.5 ML CARP SQ SCH ×3 (06:25→20:38)
[2017-09-09 07:05] VITALS: PULSE 71; O2SAT 94
[2017-09-09] MEDS: IPRATROPIUM BROMIDE NEB SOLN 0.02% 2.5 ML VIAL INH SCH ×3 (07:05→21:00)
[2017-09-09] MEDS: LEVALBUTEROL 0.63MG/3 ML NEB INH SCH ×3 (07:05→21:00)
[2017-09-09 07:18] VITALS: BP 129/71; PULSE 73; TEMP 36.7; O2SAT 94
[2017-09-09] MEDS: HYDROmorphone INJ 0.5 MG/0.5 ML SYR IV PRN (07:47)
[2017-09-09] MEDS: ALLOPURINOL 300 MG TAB PO SCH (07:49)
[2017-09-09] MEDS: GABAPENTIN 600 MG TAB PO SCH ×3 (07:50→20:31)
[2017-09-09] MEDS: CEROVITE ADV FORMULA TAB PO SCH (07:50)
[2017-09-09] MEDS: PANTOprazole SOD 40 MG TAB PO SCH (07:50)
[2017-09-09] MEDS: CHOLECALCIFEROL 1000 INTER.UNIT TAB PO SCH (07:50)
[2017-09-09] MEDS: METOPROLOL SUCC 50MG EXT REL TAB PO SCH (07:50)
[2017-09-09] MEDS: SERTRALINE HCL 50 MG TAB PO SCH (07:51)
[2017-09-09] MEDS: SENNA 8.6 MG TAB PO SCH (07:51)
[2017-09-09] MEDS: PROPAFENONE HCL 150 MG TAB PO SCH ×3 (07:51→20:32)
[2017-09-09] MEDS: FERROUS SULFATE 325 MG TAB PO SCH (07:51)
[2017-09-09] MEDS: ROPINIROLE HCL 5 MG TAB PO SCH (07:51)
[2017-09-09] MEDS: ASPIRIN 81 MG ECTAB PO SCH (07:52)
[2017-09-09] MEDS: ROFLUMILAST 500 MCG TAB PO SCH (07:52)
[2017-09-09] MEDS: LIDODERM (LIDOCAINE) PATCH 5% TD SCH (07:53)
[2017-09-09 08:06] LABS: BASO % 0.3 %; BASO ABS # 0.04 K/uL (0-0.2); EOS % 2.7 %; EOS ABS # 0.38 K/uL (0-0.5); HEMATOCRIT 28.7 % (37-47); HEMOGLOBIN 8.9 g/dL (12.0-16.0); IG# 0.18 K/uL (0.00-0.02); LYMPH % 16.4 %; LYMPH ABS # 2.28 K/uL (1.2-3.4); MEAN CORPUSCULAR HEMOGLOBIN 29.5 pg (25-34); MEAN PLATELET VOLUME 8.5 fL (7.4-10.4); MONO % 6.3 %; MONO ABS # 0.88 K/uL (0.11-0.59); NEUT ABS # 10.16 K/uL (1.4-6.5); PLATELET COUNT 205 K/uL (130-400); RED CELL DISTRIBUTION WIDTH SD 52.1 fL (36.4-46.3); WHITE BLOOD COUNT 13.92 K/uL (4.8-10.8)
[2017-09-09 08:51] LABS: CALCIUM 10.1 mg/dl (8.5-10.1); CREATININE 1.27 mg/dl (0.60-1.20); POTASSIUM 3.9 mmol/L (3.5-5.1)
[2017-09-09 15:20] VITALS: BP 148/78; PULSE 74; TEMP 36.7; O2SAT 95
--- NOTE | 2017-09-09 18:22 | Progress Note ---
Internal Med Progress Note Date of Service: Sep 09, 2017. Provider Documentation: SUBJECTIVE: resting comfortably sob and cough much improved ambulating ok no fevers no chest pain seems comfortable ok to go home tomorrow OBJECTIVE: Vital Signs-as noted below Exam: General-alert and Oriented. Not in distress. ENT-normal hearing Neck-no neck masses Lungs-cta b/l no wheezing or crackles Heart-s1 and s2 heard regular no murmurs Abdomen-soft bowel sounds present non tender no distension Extremities-no edema no erythema Neuro-alert and awake moves extremities Lab data as noted below. ASSESSMENT & PLAN: This is a patient at baseline with poor lung function and cardiac disease and primarily with chronic hypoxemic respiratory failure on home oxygen and on advanced COPD medications including roflumilast with SIMONA and chronic diastolic heart failure who presented to the ED for multiple symptoms of productive yellow cough, chills, body aches, vomiting, and SOB. Patient is negative for flu. But during this hospital stay she struggles with coughing and has reported that her breathing is not right Acute on chronic respiratory failure copd ex Pneumonia? flu negative on Rocephin and azithromycin# 5 stopped abx Continue nebulizers and home inhalers cut back on nebs as patient having tremors stable Chronic Diastolic Heart Failure holding Bumex for ARF will monitor for any volume overload. stable. restart Bumex today ARF on CKD3 cr 1.2 today at baseline f/u labs in am. Chronic Afib : on Beta sandra and Propafenone /Rythmol, rate is controlled. Has been off anticoagulation due to lower ext large Hematoma /recent hx of lower GI bleed; continue aspirin Stable conditions: HTN: on Beta sandra /ARB. Will monitor Left Shoulder pain better today. pain medications, lidocaine patch Continue wound vac for right lower extremity healing Anemia of chronic disease: cont Fe supplement Hypothyroidism: cont levothyroxine Depression: on SSRI -Zoloft FULL CODE DVT PROPHYLAXIS : SCD and teds PT/OT DISPOSITION monitor in medical floor possible d/c in am with home health Vital Signs: Date Time Temp Pulse Resp B/P (MAP) Pulse Ox O2 Delivery O2 Flow Rate FiO2 09/09/17 16:00 Nasal Cannula 4.0 09/09/17 15:20 36.7 74 16 148/78 (101) 95 4.0 09/09/17 08:00 4.0 09/09/17 07:18 36.7 73 18 129/71 (90) 94 BiPAP 09/09/17 07:05 71 18 94 BiPAP/CPAP 4.0 09/09/17 00:40 CPAP 09/09/17 00:31 36.8 76 20 139/80 (99) 91 CPAP 09/08/17 20:40 82 144/78 (100) Lab Results: Results Past 24 Hours Test 09/09/17 07:50 Range/Units White Blood Count 13.92 4.8-10.8 K/uL Red Blood Count 3.02 4.2-5.4 M/uL Hemoglobin 8.9 12.0-16.0 g/dL Hematocrit 28.7 37-47 % Mean Corpuscular Volume 95.0 80-100 fL Mean Corpuscular Hemoglobin 29.5 25-34 pg Mean Corpuscular Hemoglobin Concent 31.0 32-36 g/dl Platelet Count 205 130-400 K/uL Mean Platelet Volume 8.5 7.4-10.4 fL Neutrophils (%) (Auto) 73.0 % Lymphocytes (%) (Auto) 16.4 % Monocytes (%) (Auto) 6.3 % Eosinophils (%) (Auto) 2.7 % Basophils (%) (Auto) 0.3 % Neutrophils # (Auto) 10.16 1.4-6.5 K/uL Lymphocytes # (Auto) 2.28 1.2-3.4 K/uL Monocytes # (Auto) 0.88 0.11-0.59 K/uL Eosinophils # (Auto) 0.38 0-0.5 K/uL Basophils # (Auto) 0.04 0-0.2 K/uL RDW Standard Deviation 52.1 36.4-46.3 fL RDW Coefficient of Variation 15.0 11.5-14.5 % Immature Granulocyte % (Auto) 1.3 % Immature Granulocyte # (Auto) 0.18 0.00-0.02 K/uL Stomatocytes 2+ Sodium Level 134 136-145 mmol/L Potassium Level 3.9 3.5-5.1 mmol/L Chloride Level 88 98-107 mmol/L Carbon Dioxide Level 41 21-32 mmol/L Anion Gap 5.0 3-11 mmol/L Blood Urea Nitrogen 25 7-18 mg/dl Creatinine 1.27 0.60-1.20 mg/dl Est Creatinine Clear Calc Drug Dose 50.6 ml/min Estimated GFR () 49.9 Estimated GFR (Non- 43.0 BUN/Creatinine Ratio 19.3 10-20 Random Glucose 99 70-99 mg/dl Calcium Level 10.1 8.5-10.1 mg/dl Magnesium Level 2.1 1.8-2.4 mg/dl
[2017-09-09] MEDS: ATORVASTATIN 20 MG TAB PO SCH (20:31)
[2017-09-09 23:11] VITALS: BP 111/69; PULSE 64; TEMP 36.7; O2SAT 93
[2017-09-10] MEDS: OXYCODONE/ACETAMINOPHEN 5-325 TAB PO PRN (02:01)
[2017-09-10] MEDS: LEVOTHYROXINE 88 MCG TAB PO SCH (06:27)
[2017-09-10] MEDS: HEPARIN SOD 5000 UNIT/0.5 ML CARP SQ SCH (06:28)
[2017-09-10 07:27] VITALS: BP 115/73; PULSE 64; TEMP 36.4; O2SAT 95
[2017-09-10] MEDS: IPRATROPIUM BROMIDE NEB SOLN 0.02% 2.5 ML VIAL INH SCH ×2 (07:35→13:58)
[2017-09-10] MEDS: LEVALBUTEROL 0.63MG/3 ML NEB INH SCH ×2 (07:35→13:58)
[2017-09-10] MEDS: BREO ELLIPTA: ORDER AWAITING ACTION SCH ×2 (07:35)
[2017-09-10] MEDS: CHOLECALCIFEROL 1000 INTER.UNIT TAB PO SCH (07:36)
[2017-09-10] MEDS: GABAPENTIN 600 MG TAB PO SCH (07:36)
[2017-09-10] MEDS: FERROUS SULFATE 325 MG TAB PO SCH (07:36)
[2017-09-10] MEDS: PROPAFENONE HCL 150 MG TAB PO SCH (07:37)
[2017-09-10] MEDS: ASPIRIN 81 MG ECTAB PO SCH (07:37)
[2017-09-10] MEDS: ROPINIROLE HCL 5 MG TAB PO SCH (07:37)
[2017-09-10] MEDS: SENNA 8.6 MG TAB PO SCH (07:37)
[2017-09-10] MEDS: PANTOprazole SOD 40 MG TAB PO SCH (07:38)
[2017-09-10] MEDS: METOPROLOL SUCC 50MG EXT REL TAB PO SCH (07:38)
[2017-09-10] MEDS: ROFLUMILAST 500 MCG TAB PO SCH (07:38)
[2017-09-10] MEDS: LIDODERM (LIDOCAINE) PATCH 5% TD SCH (07:38)
[2017-09-10] MEDS: CEROVITE ADV FORMULA TAB PO SCH (07:38)
[2017-09-10] MEDS: ALLOPURINOL 300 MG TAB PO SCH (07:38)
[2017-09-10] MEDS: SERTRALINE HCL 50 MG TAB PO SCH (07:39)
[2017-09-10] MEDS: BUMETANIDE 1 MG TAB PO SCH (07:39)
[2017-09-10 07:40] VITALS: PULSE 75; O2SAT 96
[2017-09-10 09:06] LABS: BASO % 0.5 %; BASO ABS # 0.07 K/uL (0-0.2); EOS % 3.1 %; EOS ABS # 0.42 K/uL (0-0.5); HEMATOCRIT 30.6 % (37-47); HEMOGLOBIN 9.5 g/dL (12.0-16.0); IG# 0.46 K/uL (0.00-0.02); LYMPH % 16.7 %; LYMPH ABS # 2.28 K/uL (1.2-3.4); MEAN CELL VOLUME 95.6 fL (80-100); MEAN CORPUSCULAR HEMOGLOBIN 29.7 pg (25-34); MEAN PLATELET VOLUME 8.4 fL (7.4-10.4); MONO % 5.3 %; MONO ABS # 0.72 K/uL (0.11-0.59); NEUT ABS # 9.71 K/uL (1.4-6.5); PLATELET COUNT 233 K/uL (130-400); RED CELL DISTRIBUTION WIDTH CV 15.1 % (11.5-14.5); RED CELL DISTRIBUTION WIDTH SD 52.9 fL (36.4-46.3); WHITE BLOOD COUNT 13.66 K/uL (4.8-10.8)
[2017-09-10 09:41] LABS: CALCIUM 10.4 mg/dl (8.5-10.1); CREATININE 1.44 mg/dl (0.60-1.20); POTASSIUM 3.9 mmol/L (3.5-5.1)
[2017-09-10] MEDS ORDERED: ALBINS/ INH (12:02)
[2017-09-10] MEDS ORDERED: ADVIN50/60 INH (12:02)
[2017-09-10] MEDS ORDERED: PRED10TA PO (12:03)
[2017-09-10] MEDS ORDERED: IPRA1AER2 INH (12:03)
[2017-09-10] MEDS ORDERED: POTA20TA16 PO (12:11)
--- NOTE | 2017-09-10 12:15 | Discharge Instructions ---
Discharge Instructions Date of Service Sep 10, 2017. Admission Reason for Admission: Copd Exacerbation Discharge Discharge Diagnosis / Problem: copd ex Discharge Goals Goal(s): Decrease discomfort, Improve function Activity Recommendations Activity Limitations: resume your previous activity . Instructions / Follow-Up Instructions / Follow-Up FOLLOWUP WITH FAMILY DOCTOR ON September AT 12:45PM. PLEASE GO THROUGH ALL HOME MEDICATIONS CAREFULLY WITH FAMILY DOCTOR(UPDATE MED LIST) FOLLOWUP WITH PULMONARY IN 2-3 WEEKS LAB: BMP IN ONE WEEK AND FOLLOW RESULTS WITH FAMILY DOCTOR. Call your Primary Care doctor if any of the following symptoms or problems start or get worse: * Shortness of breath or difficulty breathing * Wake up at night short of breath * Chest pain * Cough * Swelling of your hands, feet, or legs * More fatigued or tired with your normal activity * Palpitations - sudden fast heart beats WEIGHT * Weigh yourself every morning after using the bathroom. * Use the same scale. * Wear the same amount of clothing. * Write your weight down on a chart. * Call your Primary Care doctor if you gain more than 2-3 pounds in 1-2 days. MEDICATIONS * Use this discharge instruction sheet for medication instructions. * Take your medications at the time your doctor ordered. * Do not skip a dose of your medicines. * If you miss a dose of medicine, take it as soon as possible, but DO NOT DOUBLE A DOSE. * Read your medicine information when you get home. * Know all of the side effects of your medicine. If in doubt, ask your pharmacist * Call your Primary Care doctor's office if you have any side effects. * Be sure all of your doctors know what medicine and herbs you take (including cold, flu, and herbal medicine). Take the following with you to your follow-up doctor appointments: * Weight Chart * Medication List * List of questions Do not drink excessive alcohol, beer or wine. Current Hospital Diet Patient's current hospital diet: AHA Diet (Heart Healthy) Discharge Diet Recommended Diet: AHA Diet (Heart Healthy) Pending Studies Studies pending at discharge: no Medical Emergencies . Who to Call and When: Call 911 or go to the Emergency Room if: * If at any time you feel your situation is an emergency * You have tightness or pain in your chest that does not go away with rest or Nitroglycerin * You are very short of breath even with rest . Non-Emergent Contact Non-Emergency issues call your: Primary Care Provider . . "Provider Documentation" section prepared by Manjit Frias. .
[2017-09-10 12:56] VITALS: BP 115/73; PULSE 75; TEMP 36.4; O2SAT 96
--- NOTE | 2017-09-10 19:03 | Progress Note ---
Internal Med Progress Note Date of Service: Sep 10, 2017. Provider Documentation: SUBJECTIVE: could not sleep well last night because of her chronic pain afebrile sob and cough better no nausea no chest pain ok to go home OBJECTIVE: Vital Signs-as noted below Exam: General-alert and Oriented. Not in distress. ENT-normal hearing Neck-no neck masses Lungs-cta b/l no wheezing or crackles Heart-s1 and s2 heard regular no murmurs Abdomen-soft bowel sounds present non tender no distension Extremities-no edema no erythema Neuro-alert and awake moves extremities Lab data as noted below. ASSESSMENT & PLAN: This is a patient at baseline with poor lung function and cardiac disease and primarily with chronic hypoxemic respiratory failure on home oxygen and on advanced COPD medications including roflumilast with SIMONA and chronic diastolic heart failure who presented to the ED for multiple symptoms of productive yellow cough, chills, body aches, vomiting, and SOB. Patient is negative for flu. But during this hospital stay she struggles with coughing and has reported that her breathing is not right Acute on chronic respiratory failure copd ex Pneumonia? flu negative on Rocephin and azithromycin# 5 stopped abx Continue nebulizers and home inhalers cut back on nebs as patient having tremors discharged on home nebs and inhalers f/u with pcp and pulmonary Chronic Diastolic Heart Failure holding Bumex for ARF will monitor for any volume overload. stable. restart Bumex today stable ARF on CKD3 cr 1.2 today at baseline f/u labs with pcp Chronic Afib : on Beta sandra and Propafenone /Rythmol, rate is controlled. Has been off anticoagulation due to lower ext large Hematoma /recent hx of lower GI bleed; continue aspirin HTN: on Beta sandra /ARB. Will monitor Left Shoulder pain better today. pain medications, lidocaine patch Continue wound vac for right lower extremity healing. followup with wound clinic Anemia of chronic disease: cont Fe supplement Hypothyroidism: cont levothyroxine Depression: on SSRI -Zoloft discharged home Vital Signs: Date Time Temp Pulse Resp B/P (MAP) Pulse Ox O2 Delivery O2 Flow Rate FiO2 09/10/17 12:56 36.4 75 18 96 Nasal Cannula 09/10/17 08:00 4.0 09/10/17 07:40 75 18 96 Nasal Cannula 4.0 09/10/17 07:27 36.4 64 20 115/73 (87) 95 BiPAP 4.0 09/10/17 00:00 CPAP 09/09/17 23:11 36.7 64 18 111/69 (83) 93 CPAP Lab Results: Results Past 24 Hours Test 09/10/17 08:52 Range/Units White Blood Count 13.66 4.8-10.8 K/uL Red Blood Count 3.20 4.2-5.4 M/uL Hemoglobin 9.5 12.0-16.0 g/dL Hematocrit 30.6 37-47 % Mean Corpuscular Volume 95.6 80-100 fL Mean Corpuscular Hemoglobin 29.7 25-34 pg Mean Corpuscular Hemoglobin Concent 31.0 32-36 g/dl Platelet Count 233 130-400 K/uL Mean Platelet Volume 8.4 7.4-10.4 fL Neutrophils (%) (Auto) 71.0 % Lymphocytes (%) (Auto) 16.7 % Monocytes (%) (Auto) 5.3 % Eosinophils (%) (Auto) 3.1 % Basophils (%) (Auto) 0.5 % Neutrophils # (Auto) 9.71 1.4-6.5 K/uL Lymphocytes # (Auto) 2.28 1.2-3.4 K/uL Monocytes # (Auto) 0.72 0.11-0.59 K/uL Eosinophils # (Auto) 0.42 0-0.5 K/uL Basophils # (Auto) 0.07 0-0.2 K/uL RDW Standard Deviation 52.9 36.4-46.3 fL RDW Coefficient of Variation 15.1 11.5-14.5 % Immature Granulocyte % (Auto) 3.4 % Immature Granulocyte # (Auto) 0.46 0.00-0.02 K/uL Sodium Level 135 136-145 mmol/L Potassium Level 3.9 3.5-5.1 mmol/L Chloride Level 88 98-107 mmol/L Carbon Dioxide Level 43 21-32 mmol/L Anion Gap 5.0 3-11 mmol/L Blood Urea Nitrogen 22 7-18 mg/dl Creatinine 1.44 0.60-1.20 mg/dl Est Creatinine Clear Calc Drug Dose 44.7 ml/min Estimated GFR () 42.8 Estimated GFR (Non- 37.0 BUN/Creatinine Ratio 15.2 10-20 Random Glucose 111 70-99 mg/dl Calcium Level 10.4 8.5-10.1 mg/dl Magnesium Level 2.2 1.8-2.4 mg/dl
--- NOTE | 2017-09-10 19:12 | Discharge Summary ---
Discharge Summary Date of Service Sep 10, 2017. Discharge Summary Admission Date: Sep 05, 2017 at 16:28 Discharge Date: Sep 06, 2017 Discharge Disposition: Home with services Principal Diagnosis: acute resp failure copd ex arf on ckd stage 3 Secondary Diagnoses/Problems: (1) Asthma Status: Chronic (2) CHF (congestive heart failure) Permanent Comment: diastolic Status: Chronic (3) Chronic respiratory failure Status: Chronic (4) CKD (chronic kidney disease), stage IV Status: Chronic (5) COPD (chronic obstructive pulmonary disease) Status: Chronic (6) Depression Status: Chronic (7) Dyslipidemia Status: Chronic (8) GERD (gastroesophageal reflux disease) Status: Chronic (9) HTN (hypertension) Status: Chronic (10) EVONNE (iron deficiency anemia) Status: Chronic (11) Lumbar spinal stenosis Status: Chronic (12) Morbid obesity Status: Chronic (13) Myocardial infarction Permanent Comment: per patient, details unknown Status: Chronic (14) Obesity hypoventilation syndrome Status: Chronic (15) Paroxysmal a-fib Status: Chronic Procedures: CXR: Cardiomegaly with progressive interstitial thickening and a trace bilateral pleural effusions consistent with mild pulmonary edema. Medication Reconciliation Continued Medications: Albuterol Hfa (Ventolin Hfa) 200 Puffs/47714 Mcg Aers 2-4 PUFFS INH Q6H Albuterol Sulf (Proventil 0.083% 2.5MG/3ML) 2.5 Mg/3 Ml Nebu 2.5 MG INH QID PRN for SOB/Wheezing, #1 EA Allopurinol (Zyloprim) 300 Mg Tab 300 MG PO QAM Aspirin (Aspirin Ec) 81 Mg Tab 81 MG PO QAM Atorvastatin (Lipitor) 20 Mg Tab 20 MG PO PM Bumetanide (Bumex) 1 Mg Tab 1 TAB PO BID Cholecalciferol (D3 2000) 2,000 Unit Tab 1 TAB PO DAILY Ferrous Sulfate (Ferrous Sulfate) 325 Mg Tab 325 MG PO QAM Fluticasone Prop/Salmeterol (Advair Diskus 500/50 60 Dose) 1 Ea Aerp 1 PUFF INH BID, #1 INHALER Gabapentin (Gabapentin) 600 Mg Tab 1 TAB PO TID Ipratropium-Albuterol (Combivent Respimat) 1 Aer Aer 1 PUFFS INH QID, #1 INH Levothyroxine Sodium (Synthroid) 88 Mcg Tab 88 MCG PO QAM Losartan Potassium (Cozaar) 50 Mg Tab 50 MG PO QAM Metolazone (Metolazone) 2.5 Mg Tab 2.5 MG PO WEDNESDAY@0600 2.5 mg by mouth once per week on Wednesday Metoprolol Succinate (Toprol Xl) 50 Mg Tab 50 MG PO QAM Multivitamins/Minerals (Certavite/Antioxidants) 1 Tab Tab 1 TAB PO QAM Potassium Ext Rel (Klor-Con) 20 Meq Tabcr 20 MEQ PO DAILY, #10 Propafenone Hcl (Propafenone Hcl) 150 Mg Tab 150 MG PO TID Roflumilast (Daliresp) 500 Mcg Tab 1 TAB PO QAM Sertraline (Zoloft) 25 Mg Tab 25 MG PO QAM Admission Information HPI (per Admitting provider): This is a 67yo F with a PMH of COPD, diastolic CHF, h/o RLE traumatic wound s/p hematoma evacuation, CKD IV and other medical problems listed below who presents with cough and SOB x 3 days. Patient was recently admitted from Aug 09 - Aug 13 for diverticular bleed and RLE hematoma abscess. Underwent I&D of wound , IV antibiotics and wound vac applied. Patient was discharged to [facility] for rehab until she returned home approximately 1 week ago. Patient states that she was feeling well up until 3 days ago when she started to experience a productive yellow cough, chills, body aches and SOB at rest. Is on 4L home O2 at baseline. Also endorses nausea with 2 episodes of vomiting yesterday but states that nausea has since resolved. Decreased PO intake. Came to ED for further evaluation. Currently endorses fatigue, chills, SOB and cough. Denies fever, lightheadedness, headache, visual changes, palpitations, chest pain, abdominal pain, nausea, dysuria, diarrhea, constipation. Denies weight gain or LE swelling. Patient lives with her daughter who is also sick with similar symptoms. States that she has been taking medications normally but that her daughter manages them. Has been going to wound clinic [facility] for care of wound vac. Had an appt scheduled for later today. In ED, patient is saturating in the 90s on 4L NC. Leukocytosis of 12.35. Flu ag negative but PCR pending. Physical Exam (per Admitting): General Appearance: no apparent distress, + obese, + pertinent finding ( Breathing comfortably on NC O2. Chronically ill appearing ) Head: normocephalic, atraumatic Eyes: normal inspection, PERRL, sclerae normal ENT: normal ENT inspection, hearing grossly normal, pharynx normal (dry mucous membranes ) Neck: supple, thyroid normal, trachea midline Respiratory/Chest: chest non-tender, + crackles (bibasilar crackles), + wheezing (Diffuse inspiratory and expiratory wheezing ) Cardiovascular: regular rate, rhythm (distant heart sounds ), normal peripheral pulses Abdomen/GI: non tender, soft, no organomegaly Back: normal inspection Extremities/Musculoskelatal: normal inspection, no calf tenderness, no pedal edema, + pertinent finding (Healing wound on lateral aspect of RLE. Wound vac attached, dressing in place. Clean, dry, intact. ) Neurologic/Psych: no motor/sensory deficits, alert, normal mood/affect, oriented x 3 Skin: normal color, warm/dry Hospital Course This is a patient at baseline with poor lung function and cardiac disease and primarily with chronic hypoxemic respiratory failure on home oxygen and on advanced COPD medications including roflumilast with SIMONA and chronic diastolic heart failure who presented to the ED for multiple symptoms of productive yellow cough, chills, body aches, vomiting, and SOB. Patient is negative for flu. But during this hospital stay she struggles with coughing and has reported that her breathing is not right Acute on chronic respiratory failure copd ex Pneumonia? flu negative on Rocephin and azithromycin# 5 stopped abx Continue nebulizers and home inhalers cut back on nebs as patient having tremors discharged on home nebs and inhalers f/u with pcp and pulmonary Chronic Diastolic Heart Failure holding Bumex for ARF will monitor for any volume overload. stable. restart Bumex today stable ARF on CKD3 cr 1.2 today at baseline f/u labs with pcp Chronic Afib : on Beta sandra and Propafenone /Rythmol, rate is controlled. Has been off anticoagulation due to lower ext large Hematoma /recent hx of lower GI bleed; continue aspirin HTN: on Beta sandra /ARB. Will monitor Left Shoulder pain better today. pain medications, lidocaine patch Continue wound vac for right lower extremity healing. followup with wound clinic Anemia of chronic disease: cont Fe supplement Hypothyroidism: cont levothyroxine Depression: on SSRI -Zoloft discharged home Total time spent on discharge = 35MINUTES This includes examination of the patient, discharge planning, medication reconciliation, and communication with other providers. Discharge Instructions Discharge Instructions Date of Service Sep 10, 2017. Admission Reason for Admission: Copd Exacerbation Discharge Discharge Diagnosis / Problem: copd ex Discharge Goals Goal(s): Decrease discomfort, Improve function Activity Recommendations Activity Limitations: resume your previous activity . Instructions / Follow-Up Instructions / Follow-Up FOLLOWUP WITH FAMILY DOCTOR ON September AT 12:45PM. PLEASE GO THROUGH ALL HOME MEDICATIONS CAREFULLY WITH FAMILY DOCTOR(UPDATE MED LIST) FOLLOWUP WITH PULMONARY IN 2-3 WEEKS LAB: BMP IN ONE WEEK AND FOLLOW RESULTS WITH FAMILY DOCTOR. Call your Primary Care doctor if any of the following symptoms or problems start or get worse: * Shortness of breath or difficulty breathing * Wake up at night short of breath * Chest pain * Cough * Swelling of your hands, feet, or legs * More fatigued or tired with your normal activity * Palpitations - sudden fast heart beats WEIGHT * Weigh yourself every morning after using the bathroom. * Use the same scale. * Wear the same amount of clothing. * Write your weight down on a chart. * Call your Primary Care doctor if you gain more than 2-3 pounds in 1-2 days. MEDICATIONS * Use this discharge instruction sheet for medication instructions. * Take your medications at the time your doctor ordered. * Do not skip a dose of your medicines. * If you miss a dose of medicine, take it as soon as possible, but DO NOT DOUBLE A DOSE. * Read your medicine information when you get home. * Know all of the side effects of your medicine. If in doubt, ask your pharmacist * Call your Primary Care doctor's office if you have any side effects. * Be sure all of your doctors know what medicine and herbs you take (including cold, flu, and herbal medicine). Take the following with you to your follow-up doctor appointments: * Weight Chart * Medication List * List of questions Do not drink excessive alcohol, beer or wine. Current Hospital Diet Patient's current hospital diet: AHA Diet (Heart Healthy) Discharge Diet Recommended Diet: AHA Diet (Heart Healthy) Pending Studies Studies pending at discharge: no Medical Emergencies . Who to Call and When: Call 911 or go to the Emergency Room if: * If at any time you feel your situation is an emergency * You have tightness or pain in your chest that does not go away with rest or Nitroglycerin * You are very short of breath even with rest . Non-Emergent Contact Non-Emergency issues call your: Primary Care Provider . .
== END 2017-09-10 14:00 | disposition home health service (06) | DRG 193 ==
LOC: EDBD 09:59 → C.EDB 10:00 → C.2T 13:34 → ENRESERV 15:32 → C.MS4W 09-04 09:11 → ENRESERV 09-04 09:31 → CMPBEDREQ 09-04 10:36 → OBSVTOIN 09-05 16:28
PROVIDERS: ADMIT Hospitalist; ATTEND Internal Medicine
DX: J18.9 Pneumonia, unspecified organism (principal); J96.21 Acute and chronic respiratory failure with hypoxia; J44.1 Chronic obstructive pulmonary disease with (acute) exacerbation; I50.32 Chronic diastolic (congestive) heart failure; N17.9 Acute kidney failure, unspecified; N18.4 Chronic kidney disease, stage 4 (severe); F32.9 Major depressive disorder, single episode, unspecified; G47.33 Obstructive sleep apnea (adult) (pediatric); M25.512 Pain in left shoulder; I48.2 Chronic atrial fibrillation; I10 Essential (primary) hypertension; D63.8 Anemia in other chronic diseases classified elsewhere; E03.9 Hypothyroidism, unspecified; Z83.3 Family history of diabetes mellitus; Z82.49 Family history of ischemic heart disease and other diseases of the circulatory system; Z79.82 Long term (current) use of aspirin; Z87.891 Personal history of nicotine dependence; Z99.81 Dependence on supplemental oxygen; Z88.5 Allergy status to narcotic agent

== ENCOUNTER 2017-09-27 13:41 | Emergency (ER) | payer OTHER ==
[~2017-09-27] VITALS: Ht 162.6 cm; Wt 110.0 kg
[~2017-09-27 13:41] MED LIST changes: -ACET-1311 PO; +ADVIN50/60 INH; +ALBINS/ INH; -AMOX1TAB43 PO; -BENZ100C84 PO; -CHOL1000 PO; +CHOL1TAB79 PO; -FLUT1INH7 INH; +IPRA1AER2 INH; -LDDP5 TD; -LEVA1.258 INH; -NRN/300 PO; +NRN600 PO; -OMEP20CA9 PO; -OXYC-57 PO; -PRD10 PO; -RANI150T85 PO; -ROPI5TAB PO; -UMEC1INH INH
[2017-09-27] MEDS ORDERED: METHYLPREDNISOLONE 125 MG VIAL IV STA (14:11)
[2017-09-27] MEDS ORDERED: ALBUT/IPRATROP 3MG/0.5MG NEB 3 ML VIAL INH STA (14:11)
[2017-09-27 14:27] VITALS: Ht 162.6 cm; Wt 110.0 kg
--- NOTE | 2017-09-27 14:42 | DIAGNOSTIC IMAGING REPORT ---
CHEST ONE VIEW PORTABLE CLINICAL HISTORY: 67 years-old Female presenting with EVALUATE WEAKNESS. TECHNIQUE: AP view of the chest was obtained. COMPARISON: 09/06/2017. FINDINGS: Atherosclerosis of aortic arch. Cardiac silhouette enlarged. Calcified mediastinal lymph nodes noted. Mild pulmonary vascular prominence. Interval resolution of vague right basilar opacity. Improved aeration of the left lung base. No large effusion or pneumothorax. Right shoulder arthroplasty. Degenerative changes of the spine. Upper abdomen normal. IMPRESSION: 1. Improved aeration of the left lung base and resolution of vague nodular opacity at the right lung base. No new focal infiltrate. Electronically signed by: Mukund Tirado M.D. 09/27/2017 2:41 PM Dictated Date/Time: 09/27/2017 2:38 PM
[2017-09-27 14:45] LABS: BASO % 0.1 %; BASO ABS # 0.01 K/uL (0-0.2); EOS ABS # 0.18 K/uL (0-0.5); HEMATOCRIT 30.7 % (37-47); HEMOGLOBIN 9.4 g/dL (12.0-16.0); IG# 0.05 K/uL (0.00-0.02); LYMPH % 7.2 %; LYMPH ABS # 1.28 K/uL (1.2-3.4); MEAN CELL VOLUME 97.2 fL (80-100); MEAN CORPUSCULAR HEMOGLOBIN 29.7 pg (25-34); MEAN CORPUSCULAR HGB CONC 30.6 g/dl (32-36); MONO % 3.1 %; MONO ABS # 0.55 K/uL (0.11-0.59); NEUT % 88.3 %; NEUT ABS # 15.73 K/uL (1.4-6.5); PLATELET COUNT 190 K/uL (130-400); RED CELL DISTRIBUTION WIDTH CV 16.2 % (11.5-14.5)
[2017-09-27 14:53] LABS: PTT PATIENT 21.1 SECONDS (21.0-31.0)
--- NOTE | 2017-09-27 15:01 | EMERGENCY ROOM VISIT NOTE ---
History Report prepared by Warren: Amol Arellano Under the Supervision of: Dr. Brett Perez M.D. First contact with patient: 14:06 Chief Complaint: ABDOMINAL PAIN Stated Complaint: CONGESTIVE HEART FAILURE- ABDOMINAL PAIN Nursing Triage Summary: patient to ED via triage with family, states "the home health nurse said she's really congested, has been having bladder pain and not pee'ing very much even though she takes lasix" History of Present Illness The patient is a 67 year old female who presents to the Emergency Room with complaints of constant lower abdominal pain starting yesterday. She currently rates her discomfort as a 7/10 in severity, and she states that nothing makes the pain any better or worse. The patient additionally notes that she has been having some chest congestion since she was discharged from the hospital not too long ago. She additionally notes that she has been having some diarrhea for the past couple of days. The patient states that she has not been urinating very much, and she states that she has been coughing up a clear phlegm. The patient states that she has been having a normal appetite. She notes that she has not taken any medications for her symptoms, and she is not currently on any steroids. Pt denies LOC, headache, fevers, chills, diaphoresis, visual changes, neck pain, chest pain, nausea, vomiting, back pain, melena, hematochezia, urinary burning, hematuria, leg swelling, numbness, weakness, lymphadenopathy, rash, or other complaints. Source of History: patient Onset: yesterday Position: abdomen (lower) Symptom Intensity: 7/10 Timing: constant Modifying Factors (Worsening): other (nothing) Modifying Factors (Relieving): other (nothing) Associated Symptoms: + cough, + diarrhea Note: Associated symptoms: Chest congestion, not urinating very much Review of Systems See HPI for pertinent positives and negatives. A total of ten systems were reviewed and were otherwise negative. Past Medical & Surgical Medical Problems: (1) Asthma (2) CHF (congestive heart failure) (3) Chronic respiratory failure (4) CKD (chronic kidney disease), stage IV (5) COPD (chronic obstructive pulmonary disease) (6) Depression (7) Dyslipidemia (8) GERD (gastroesophageal reflux disease) (9) HTN (hypertension) (10) EVONNE (iron deficiency anemia) (11) Lumbar spinal stenosis (12) Morbid obesity (13) Myocardial infarction (14) Obesity hypoventilation syndrome (15) Paroxysmal a-fib Surgical Problems: (1) History of appendectomy (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 (4) Hx of cholecystectomy (5) S/P cervical spinal fusion (6) S/P wrist surgery Family History Diabetes mellitus MOTHER FH: CAD (coronary artery disease) MOTHER SISTER Social History Smoking Status: Former Smoker Alcohol Use: none Drug Use: none Marital Status: single Housing Status: lives with family Occupation Status: retired Current/Historical Medications Scheduled Albuterol Hfa (Ventolin Hfa), 2-4 PUFFS INH Q6H Allopurinol (Zyloprim), 300 MG PO QAM Aspirin (Aspirin Ec), 81 MG PO QAM Atorvastatin (Lipitor), 20 MG PO PM Bumetanide (Bumex), 1 TAB PO BID Cholecalciferol (D3 2000), 1 TAB PO DAILY Ciprofloxacin Hcl (Cipro), 500 MG PO BID Ferrous Sulfate (Ferrous Sulfate), 325 MG PO QAM Fluticasone Prop/Salmeterol (Advair Diskus 500/50 60 Dose), 1 PUFF INH BID Gabapentin (Gabapentin), 1 TAB PO TID Ipratropium-Albuterol (Combivent Respimat), 1 PUFFS INH QID Levothyroxine Sodium (Synthroid), 88 MCG PO QAM Losartan Potassium (Cozaar), 50 MG PO QAM Metolazone (Metolazone), 2.5 MG PO WEDNESDAY@0600 Metoprolol Succinate (Toprol Xl), 50 MG PO QAM Metronidazole (Flagyl), 500 MG PO TID Multivitamins/Minerals (Certavite/Antioxidants), 1 TAB PO QAM Potassium Ext Rel (Klor-Con), 20 MEQ PO DAILY Propafenone Hcl (Propafenone Hcl), 150 MG PO TID Roflumilast (Daliresp), 1 TAB PO QAM Sertraline (Zoloft), 25 MG PO QAM Scheduled PRN Albuterol Sulf (Proventil 0.083% 2.5MG/3ML), 2.5 MG INH QID PRN for SOB/Wheezing Hydrocodone/Acetaminophen 5MG/325MG ([place] 5MG/325MG), 1-2 TABS PO Q6H PRN for Pain Allergies Coded Allergies: Adhesives (Verified Allergy, Severe, RED RASH, 09/27/17) Latex1 -Allergic Contact Dermititis (Verified Adverse Reaction, Mild, TAPE -SORE, 09/27/17) Morphine (Verified Adverse Reaction, Mild, DELUSIONS, 09/27/17) Physical Exam Vital Signs Date Time Temp Pulse Resp B/P (MAP) Pulse Ox O2 Delivery O2 Flow Rate FiO2 09/27/17 18:08 36.8 67 22 142/66 97 09/27/17 17:25 65 22 142/66 97 Nasal Cannula 4.0 09/27/17 15:35 68 23 151/61 95 Nasal Cannula 4.0 09/27/17 15:07 96 Nasal Cannula 4.0 09/27/17 14:37 65 18 134/58 98 Nasal Cannula 4.0 09/27/17 14:31 68 09/27/17 14:27 77 145/82 98 Nasal Cannula 2.0 70 170/64 71 148/64 09/27/17 14:27 98 Nasal Cannula 4.0 09/27/17 13:44 36.8 67 20 161/80 96 Nasal Cannula 2.0 Physical Exam GENERAL: Awake, alert, uncomfortable-appearing, in mild distress HENT: Normocephalic, atraumatic. Oropharynx unremarkable. EYES: Normal conjunctiva. Sclera non-icteric. NECK: Supple. No nuchal rigidity. FROM. No masses. RESPIRATORY: Wheezes and rhonchi bilaterally. CARDIAC: Normal rate. Normal rhythm. No murmurs. No rubs. Extremities warm and well perfused. Pulses equal. No JVD. GI: Lower abdominal tenderness to palpation. Soft, non-distended. No rebound or guarding. No masses. RECTAL: Deferred. MUSCULOSKELETAL: Atraumatic. Chest examination reveals no tenderness. The back is symmetrical on inspection without obvious abnormality. There is no CVA tenderness to palpation. No joint edema. LOWER EXTREMITIES: Trace lower extremity edema. Calves are equal size bilaterally and non-tender. No discoloration. NEURO: Normal sensorium. No sensory or motor deficits noted. SKIN: No rash or jaundice noted. Medical Decision & Procedures ER Provider Diagnostic Interpretation: Radiology results as stated below per my review and radiologist interpretation: ABDOMEN AND PELVIS CT WITHOUT CONTRAST CT DOSE: 1707.01 mGy.cm HISTORY: Acute lower abdominal pain lower abdominal pain TECHNIQUE: Multiaxial CT images of the abdomen and pelvis were performed without contrast. A dose lowering technique was utilized adhering to the principles of ALARA. COMPARISON STUDY: CT abdomen and pelvis 08/09/2017. FINDINGS: There is mild bibasilar traction bronchiectasis with unchanged subpleural reticulation compatible with areas of scarring. Linear subsegmental bibasilar opacities are also noted suggesting areas of scarring. Minimal cystic changes are seen within the inferior segment lingula. No pneumatosis or pneumoperitoneum identified. Imaged inferior cardiac chambers are mildly enlarged. Coronary arterial disease. Evaluation of the solid abdominal organs is limited without the use of IV contrast. Within the limitations of the study, the liver, spleen, and pancreas appear unremarkable. Nodular thickening of the bilateral adrenal glands redemonstrated. 1.5 x 1.0 cm indeterminate lesion of the right adrenal gland is unchanged statistically favoring a benign etiology such as a lipid poor adenoma. Nonspecific bilateral perinephric stranding. Areas of increased attenuation measuring up to 3 mm are noted within the posterior inferior pole left kidney suggesting pronation is or hemorrhagic cysts. Bilateral renal cysts are seen measuring up to 4.4 cm on the right. Indeterminate 1.5 cm lesion involves the posterior aspect interpolar left kidney, slightly decreased in size from comparison study were measured 1.8 cm, possibly reflecting a corticated cyst. Ureters are within normal limits. Urinary bladder is decompressed. Evaluation of the pelvic structures is limited secondary to streak artifact from right hip arthroplasty. Uterus and ovaries appear age-appropriate. There is a suggested 8 mm cyst of the left ovary which appears unchanged. Extensive atherosclerosis of the aorta. No bulky adenopathy identified. Right iliac chain lymph nodes are again seen measuring up to 7 mm, mildly decreased in size from comparison. There is no bowel obstruction identified. There is mild to moderate wall thickening of the mid sigmoid colon with mild associated mesenteric fat stranding. There is also thickening of the adjacent peritoneum. Moderate diverticulosis is seen within this distribution. No evidence of abscess or perforation. Diastases recti. The bones appear moderately demineralized. Right hip arthroplasty noted. IMPRESSION: 1. Uncomplicated acute mild sigmoid diverticulitis without evidence of drainable fluid collection or perforation. No bowel obstruction. 2. Mild subsegmental subpleural reticulation with areas of pleural-parenchymal scarring redemonstrated within the lung bases with associated mild traction bronchiectasis. 3. Additional findings as above. Electronically signed by: Ariel Shah M.D. 09/27/2017 3:43 PM Dictated Date/Time: 09/27/2017 3:33 PM CHEST ONE VIEW PORTABLE CLINICAL HISTORY: 67 years-old Female presenting with EVALUATE WEAKNESS. TECHNIQUE: AP view of the chest was obtained. COMPARISON: 09/06/2017. FINDINGS: Atherosclerosis of aortic arch. Cardiac silhouette enlarged. Calcified mediastinal lymph nodes noted. Mild pulmonary vascular prominence. Interval resolution of vague right basilar opacity. Improved aeration of the left lung base. No large effusion or pneumothorax. Right shoulder arthroplasty. Degenerative changes of the spine. Upper abdomen normal. IMPRESSION: 1. Improved aeration of the left lung base and resolution of vague nodular opacity at the right lung base. No new focal infiltrate. Electronically signed by: Mukund Tirado M.D. 09/27/2017 2:41 PM Dictated Date/Time: 09/27/2017 2:38 PM Laboratory Results 09/27/17 14:30 Red Blood Count 3.16, Mean Corpuscular Volume 97.2, Mean Corpuscular Hemoglobin 29.7, Mean Corpuscular Hemoglobin Concent 30.6, Mean Platelet Volume 9.0, Neutrophils (%) (Auto) 88.3, Lymphocytes (%) (Auto) 7.2, Monocytes (%) (Auto) 3.1, Eosinophils (%) (Auto) 1.0, Basophils (%) (Auto) 0.1, Neutrophils # (Auto) 15.73, Lymphocytes # (Auto) 1.28, Monocytes # (Auto) 0.55, Eosinophils # (Auto) 0.18, Basophils # (Auto) 0.01 09/27/17 14:30 Test 09/27/17 14:30 09/27/17 15:05 White Blood Count 17.80 K/uL (4.8-10.8) Red Blood Count 3.16 M/uL (4.2-5.4) Hemoglobin 9.4 g/dL (12.0-16.0) Hematocrit 30.7 % (37-47) Mean Corpuscular Volume 97.2 fL (80-100) Mean Corpuscular Hemoglobin 29.7 pg (25-34) Mean Corpuscular Hemoglobin Concent 30.6 g/dl (32-36) Platelet Count 190 K/uL (130-400) Mean Platelet Volume 9.0 fL (7.4-10.4) Neutrophils (%) (Auto) 88.3 % Lymphocytes (%) (Auto) 7.2 % Monocytes (%) (Auto) 3.1 % Eosinophils (%) (Auto) 1.0 % Basophils (%) (Auto) 0.1 % Neutrophils # (Auto) 15.73 K/uL (1.4-6.5) Lymphocytes # (Auto) 1.28 K/uL (1.2-3.4) Monocytes # (Auto) 0.55 K/uL (0.11-0.59) Eosinophils # (Auto) 0.18 K/uL (0-0.5) Basophils # (Auto) 0.01 K/uL (0-0.2) RDW Standard Deviation 57.0 fL (36.4-46.3) RDW Coefficient of Variation 16.2 % (11.5-14.5) Immature Granulocyte % (Auto) 0.3 % Immature Granulocyte # (Auto) 0.05 K/uL (0.00-0.02) Prothrombin Time 10.3 SECONDS (9.0-12.0) Prothromb Time International Ratio 1.0 (0.9-1.1) Activated Partial Thromboplast Time 21.1 SECONDS (21.0-31.0) Partial Thromboplastin Ratio 0.8 Anion Gap 4.0 mmol/L (3-11) Est Creatinine Clear Calc Drug Dose 38.3 ml/min Estimated GFR () 35.6 Estimated GFR (Non- 30.7 BUN/Creatinine Ratio 26.8 (10-20) Calcium Level 9.7 mg/dl (8.5-10.1) Magnesium Level 1.8 mg/dl (1.8-2.4) Total Bilirubin 0.4 mg/dl (0.2-1) Direct Bilirubin < 0.1 mg/dl (0-0.2) Aspartate Amino Transf (AST/SGOT) 6 U/L (15-37) Alanine Aminotransferase (ALT/SGPT) 14 U/L (12-78) Alkaline Phosphatase 85 U/L (45-117) Total Creatine Kinase 16 U/L (26-192) Creatine Kinase MB < 0.5 ng/ml (0.5-3.6) Creatine Kinase MB Ratio (0-3.0) Troponin I < 0.015 ng/ml (0-0.045) Total Protein 7.7 gm/dl (6.4-8.2) Albumin 3.1 gm/dl (3.4-5.0) Thyroid Stimulating Hormone (TSH) 0.250 uIu/ml (0.300-4.500) Urine Color YELLOW Urine Appearance CLEAR (CLEAR) Urine pH 5.0 (4.5-7.5) Urine Specific [place] 1.009 (1.000-1.030) Urine Protein NEG (NEG) Urine Glucose (UA) NEG (NEG) Urine Ketones NEG (NEG) Urine Occult Blood NEG (NEG) Urine Nitrite NEG (NEG) Urine Bilirubin NEG (NEG) Urine Urobilinogen NEG (NEG) Urine Leukocyte Esterase TRACE (NEG) Urine WBC (Auto) 1-5 /hpf (0-5) Urine RBC (Auto) 0-4 /hpf (0-4) Urine Hyaline Casts (Auto) 1-5 /lpf (0-5) Urine Epithelial Cells (Auto) 10-20 /lpf (0-5) Urine Bacteria (Auto) NEG (NEG) Laboratory results reviewed by me Medications Administered Medications (Trade) Dose Ordered Sig/Rupinder Route Start Time Stop Time Status Last Admin Dose Admin Albuterol/ Ipratropium (Duoneb) 3 ml NOW STAT INH 09/27/17 14:11 09/27/17 14:15 DC 09/27/17 14:37 3 ML Methylprednisolone Sodium Succinate (Solu-Medrol IV) 125 mg NOW STAT IV 09/27/17 14:11 09/27/17 14:15 DC 09/27/17 14:37 125 MG Hydromorphone HCl (Dilaudid Inj) 0.5 mg NOW STAT IV 09/27/17 15:57 09/27/17 16:00 DC 09/27/17 15:57 0.5 MG Ciprofloxacin (Cipro Tab) 500 mg NOW STAT PO 09/27/17 16:20 09/27/17 16:21 DC 09/27/17 16:20 500 MG Metronidazole (Flagyl Tab) 500 mg NOW STAT PO 09/27/17 16:20 09/27/17 16:21 DC 3/19/18 16:20 500 MG ECG Per My Interpretation Indication: SOB/dyspnea Rate (beats per minute): 68 Rhythm: normal sinus Findings: no acute ischemic change, no ectopy, other (normal intervals) ED Course 1408: The patient was evaluated in room B9. A complete history and physical exam was performed. 1411: Solu-Medrol 125mg IV, DuoNeb 3ml INH 1550: I revaluated the patient, and she was requesting something for pain. 1557: Dilaudid 0.5mg IV 1615: I reevaluated the patient, and she was doing alright and wants to go home. 1620: Flagyl Tab 500mg PO, Cipro Tab 500mg PO 1701: I reevaluated the patient. Discussed results and discharge instructions: she verbalized understanding and agreement. The patient is ready for discharge. Medical Decision Prior records/ancillary studies reviewed. Triage Nursing notes reviewed and agree them. Additional history obtained from the family. The patient's history was concerning for shortness of breath and abdominal pain. Differential diagnosis: Etiologies such as pneumonia, COPD, reactive airway disease, CHF, cardiac ischemia, pulmonary embolism, pneumothorax, musculoskeletal, infections, gastrointestinal, diverticulitis, cystitis, renal failure, as well as others were entertained. Physical examination: As above. Minor wheezing. ER treatment provided: The patient was treated with IV Solu-Medrol and a DuoNeb. She was maintaining her saturations on her normal 4 L of nasal cannula oxygen. On reassessment the patient felt better. IV Dilaudid IV Zofran Oral Cipro Oral Flagyl Diagnostic interpretation by me: The electrocardiogram was negative for pathologic change. The labs revealed the patient has a moderate leukocytosis on CBC of 17,000. Chemistry panel was unremarkable. Urinalysis revealed no signs of infection. Imaging studies: Chest x-ray as above. No pneumonia. CT scan revealed diverticulitis. The patient has COPD. She is doing better after the above treatment. She also has acute diverticulitis. Given the diverticulitis I will start her on Cipro and Flagyl. The patient wants to go home. She does not want to be admitted to the hospital. She will use her nebulizers and continue her oxygen. I will have her follow-up closely in the office. The patient was not given steroids because of the diverticulitis and concerns about possible worsening infection. Her breathing has been less than optimal but not really changed compared to when she left the hospital by her own accounts. As she is not hypoxic on her normal oxygen levels and is doing very well after a DuoNeb bronchodilators seem to be most appropriate. She was given a small amount of pain medicine as well. If she worsens in any way she will be back. I gave my usual and customary discussion regarding this issue. By the evaluation outlined above other emergent etiologies such as those listed in the differential, as well as others, were deemed relatively unlikely. The patient was educated about the findings as listed above. All questions were answered and the patient was pleased with the treatment. Return instructions were outlined and the patient was discharged in stable condition. The patient was referred to her PCP for follow-up for a recheck of the current condition. [place] Drug Monitoring Program Search Results: patient reviewed within database, no issues identified Medication Reconcilliation Current Medication List: was personally reviewed by me Blood Pressure Screening Patient's blood pressure: Elevated blood pressure Blood pressure disposition: Referred to PCP Impression Primary Impression: Shortness of breath Additional Impressions: COPD (chronic obstructive pulmonary disease) Lower abdominal pain Scribe Attestation The scribe's documentation has been prepared under my direction and personally reviewed by me in its entirety. I confirm that the note above accurately reflects all work, treatment, procedures, and medical decision making performed by me. Departure Information Dispostion Home / Self-Care Prescriptions Hydrocodone/Acetaminophen 5MG/325MG ([place] 5MG/325MG) Tab 1-2 TABS PO Q6H Y for Pain, #12 TAB Prov: Brett Perez MD 09/27/17 Metronidazole (Flagyl) 500 Mg Tab 500 MG PO TID, #29 TAB Prov: Brett Perez MD 09/27/17 Ciprofloxacin Hcl (CIPRO) 500 Mg Tab 500 MG PO BID, #19 TAB Prov: Brett Perez MD 09/27/17 Referrals Babak Melendez M.D.([facility]) (PCP) Forms Call Back Authorization, HOME CARE DOCUMENTATION FORM, IMPORTANT VISIT INFORMATION Patient Instructions My [facility] Additional Instructions DIVERTICULITIS INSTRUCTIONS: DO NOT drive, drink alcohol, operate machinery, or perform dangerous activities today. You were given medications in the ER that can affect your ability to safely function or operate a vehicle. Continue current nebulizers. Ciprofloxacin(Cipro) 500mg: Take one pill twice daily for 10 days for your bowel infection. All antibiotics can cause diarrhea. If this occurs and you feel worse or it does not resolve in 1-2 days follow up with your doctor or return to the Emergency Department as this could be signs of serious underlying problems. If you experience any pain in your tendons or any tendon injury return to the ER for re-evaluation. Any medication can cause an allergic reaction, stop the pills immediately and return to the ER for rash, hives, breathing difficulties, or swelling. Metronidazole(Flagyl) 500mg: Take one pill 3 times daily for 10 days for your bowel infection. DO NOT drink alcohol or take alcohol containing products with this medication. Any medication can cause an allergic reaction, stop the pills immediately and return to the ER for rash, hives, breathing difficulties, or swelling. Hydrocodone/acetaminophen 5/325mg: Take 1-2 pills every 6 hours as needed for severe pain. Avoid additional Acetaminophen/Tylenol, alcohol, operating machinery or dangerous equipment, working on ladders or roofs, DRIVING, or situations where being under the influence may be dangerous. It is recommended to use a stool softener such as Colace, 100mg twice daily while taking this medication to avoid constipation. Rest and drink plenty of fluids as tolerated. Slow sips of water or sports drinks are recommended instead of large amounts all at once. Continue current medications. Once your stomach is settled start with a clear liquid diet (jello, soup broth, etc.) and then advance as tolerated. You should avoid full, heavy meals for about 24 hrs from the time your symptoms resolved. Return to the ER immediately for worsening or persistent abdominal pain, vomiting, fevers, chest pains, difficulty breathing, black or bloody stools, worsening of your condition, or as needed. Follow up with your primary physician in 1-2 days for a recheck of your current condition. Problem Qualifiers
[2017-09-27 15:02] LABS: ALBUMIN 3.1 gm/dl (3.4-5.0); ALT/SGPT 14 U/L (12-78); BLOOD UREA NITROGEN 45 mg/dl (7-18); CALCIUM 9.7 mg/dl (8.5-10.1); CARBON DIOXIDE 38 mmol/L (21-32); CREATININE 1.68 mg/dl (0.60-1.20); GLUCOSE 115 mg/dl (70-99); POTASSIUM 4.5 mmol/L (3.5-5.1); SODIUM 137 mmol/L (136-145)
[2017-09-27 15:07] VITALS: O2SAT 96
[2017-09-27 15:13] LABS: ALKALINE PHOSPHATASE 85 U/L (45-117); AST/SGOT 6 U/L (15-37); CKMB < 0.5 ng/ml (0.5-3.6); TOTAL PROTEIN 7.7 gm/dl (6.4-8.2)
--- NOTE | 2017-09-27 15:45 | DIAGNOSTIC IMAGING REPORT ---
ABDOMEN AND PELVIS CT WITHOUT CONTRAST CT DOSE: 1707.01 mGy.cm HISTORY: Acute lower abdominal pain lower abdominal pain TECHNIQUE: Multiaxial CT images of the abdomen and pelvis were performed without contrast. A dose lowering technique was utilized adhering to the principles of ALARA. COMPARISON STUDY: CT abdomen and pelvis 08/09/2017. FINDINGS: There is mild bibasilar traction bronchiectasis with unchanged subpleural reticulation compatible with areas of scarring. Linear subsegmental bibasilar opacities are also noted suggesting areas of scarring. Minimal cystic changes are seen within the inferior segment lingula. No pneumatosis or pneumoperitoneum identified. Imaged inferior cardiac chambers are mildly enlarged. Coronary arterial disease. Evaluation of the solid abdominal organs is limited without the use of IV contrast. Within the limitations of the study, the liver, spleen, and pancreas appear unremarkable. Nodular thickening of the bilateral adrenal glands redemonstrated. 1.5 x 1.0 cm indeterminate lesion of the right adrenal gland is unchanged statistically favoring a benign etiology such as a lipid poor adenoma. Nonspecific bilateral perinephric stranding. Areas of increased attenuation measuring up to 3 mm are noted within the posterior inferior pole left kidney suggesting pronation is or hemorrhagic cysts. Bilateral renal cysts are seen measuring up to 4.4 cm on the right. Indeterminate 1.5 cm lesion involves the posterior aspect interpolar left kidney, slightly decreased in size from comparison study were measured 1.8 cm, possibly reflecting a corticated cyst. Ureters are within normal limits. Urinary bladder is decompressed. Evaluation of the pelvic structures is limited secondary to streak artifact from right hip arthroplasty. Uterus and ovaries appear age-appropriate. There is a suggested 8 mm cyst of the left ovary which appears unchanged. Extensive atherosclerosis of the aorta. No bulky adenopathy identified. Right iliac chain lymph nodes are again seen measuring up to 7 mm, mildly decreased in size from comparison. There is no bowel obstruction identified. There is mild to moderate wall thickening of the mid sigmoid colon with mild associated mesenteric fat stranding. There is also thickening of the adjacent peritoneum. Moderate diverticulosis is seen within this distribution. No evidence of abscess or perforation. Diastases recti. The bones appear moderately demineralized. Right hip arthroplasty noted. IMPRESSION: 1. Uncomplicated acute mild sigmoid diverticulitis without evidence of drainable fluid collection or perforation. No bowel obstruction. 2. Mild subsegmental subpleural reticulation with areas of pleural-parenchymal scarring redemonstrated within the lung bases with associated mild traction bronchiectasis. 3. Additional findings as above. Electronically signed by: Ariel Shah M.D. 09/27/2017 3:43 PM Dictated Date/Time: 09/27/2017 3:33 PM
[2017-09-27] MEDS ORDERED: HYDROmorphone INJ 0.5 MG/0.5 ML SYR IV STA (15:57)
[2017-09-27] MEDS ORDERED: METRONIDAZOLE 500MG / 100ML NSS IV STA (15:57)
[2017-09-27] MEDS ORDERED: CIPROFLOXACIN 400MG / 200ML D5W IV STA (15:57)
[2017-09-27] MEDS ORDERED: METRONIDAZOLE 250 MG TAB PO STA (16:20)
[2017-09-27] MEDS ORDERED: CIPROFLOXACIN 500 MG TAB PO STA (16:20)
[2017-09-27] MEDS ORDERED: CIPR-255 PO (17:19)
[2017-09-27] MEDS ORDERED: METR-163 PO (17:19)
[2017-09-27] MEDS ORDERED: HYDR-5688 PO (17:20)
[2017-09-27 18:08] VITALS: BP 142/66; PULSE 67; TEMP 36.8; O2SAT 97
== END 2017-09-27 18:09 | disposition home or self-care (01) ==
LOC: C.EDB 13:42
DX: J44.9 Chronic obstructive pulmonary disease, unspecified (principal); K57.92 Diverticulitis of intestine, part unspecified, without perforation or abscess without bleeding; I13.0 Hypertensive heart and chronic kidney disease with heart failure and stage 1 through stage 4 chronic kidney disease, or unspecified chronic kidney disease; I50.9 Heart failure, unspecified; N18.4 Chronic kidney disease, stage 4 (severe); J96.10 Chronic respiratory failure, unspecified whether with hypoxia or hypercapnia; K21.9 Gastro-esophageal reflux disease without esophagitis; E78.5 Hyperlipidemia, unspecified; F32.9 Major depressive disorder, single episode, unspecified; I48.0 Paroxysmal atrial fibrillation; D50.9 Iron deficiency anemia, unspecified; M48.061 Spinal stenosis, lumbar region without neurogenic claudication; E66.2 Morbid (severe) obesity with alveolar hypoventilation; Z79.82 Long term (current) use of aspirin; Z90.49 Acquired absence of other specified parts of digestive tract; Z96.641 Presence of right artificial hip joint; Z96.611 Presence of right artificial shoulder joint; Z98.1 Arthrodesis status; I25.2 Old myocardial infarction; Z87.891 Personal history of nicotine dependence; Z83.3 Family history of diabetes mellitus; Z82.49 Family history of ischemic heart disease and other diseases of the circulatory system; Z91.048 Other nonmedicinal substance allergy status; Z91.040 Latex allergy status; Z88.6 Allergy status to analgesic agent

== ENCOUNTER 2018-08-07 20:04 | Inpatient (IN) ==
[2018-08-07] MEDS ORDERED: ALBUT/IPRATROP 3MG/0.5MG NEB 3 ML VIAL INH STA (20:40)
[2018-08-07] MEDS ORDERED: cefTRIAXone SODIUM 1,000 MG/50 ML BAG IV STA (20:40)
[2018-08-07] MEDS ORDERED: methylPREDNISolone 125 MG/2 ML VIAL IV STA (20:40)
[2018-08-07 21:25] LABS: INR 1.1 (0.9-1.1); Partial Thromboplastin Ratio 0.9; Partial Thromboplastin Time 23.1 Seconds (21.0-31.0); Prothrombin Time 10.9 Seconds (9.0-12.0)
[2018-08-07 21:31] LABS: Basophils # (auto) 0.03 K/uL (0-0.2); Basophils % (auto) 0.3 %; Eosinophils # (auto) 0.37 K/uL (0-0.5); Eosinophils % (auto) 3.9 %; Hematocrit (blood only) 31.6 % (37-47); Hemoglobin 9.3 g/dL (12.0-16.0); Immature Granulocytes # (auto) 0.02 K/uL (0.00-0.02); Immature Granulocytes % (auto) 0.2 %; Lymphocytes # (auto) 1.43 K/uL (1.2-3.4); Lymphocytes % (auto) 14.9 %; Mean Corpuscular Hgb Conc 29.4 g/dL (32-36); Mean Corpuscular Volume 103.6 fL (80-100); Mean Platelet Volume 9.1 fL (7.4-10.4); Monocytes # (auto) 0.74 K/uL (0.11-0.59); Monocytes % (auto) 7.7 %; Neutrophils # (auto) 7.02 K/uL (1.4-6.5); Platelet Count 152 K/uL (130-400); RDW Coefficient of Variation 14.5 % (11.5-14.5); RDW Standard Deviation 54.6 fL (36.4-46.3); Red Blood Count 3.05 M/uL (4.2-5.4); White Blood Count 9.61 K/uL (4.8-10.8)
[2018-08-07 21:33] LABS: Alanine Aminotransferase 12 U/L (12-78); Albumin Level 3.1 gm/dl (3.4-5.0); Aspartate Aminotransferase 8 U/L (15-37); BUN Creatinine Ratio 18.7 (10-20); Blood Urea Nitrogen 40 mg/dl (7-18); Calcium 9.4 mg/dl (8.5-10.1); Carbon Dioxide 39 mmol/L (21-32); Chloride 98 mmol/L (98-107); Creatinine Clr Calc Pharmacy 29.9 ml/min; Est GFR (African American) 26.7; Glucose 109 mg/dl (70-99); Potassium 4.8 mmol/L (3.5-5.1); Sodium 139 mmol/L (136-145)
--- NOTE | 2018-08-07 21:33 | XRay Report ---
XR chest 1V portable CLINICAL HISTORY: 68 years-old Female presenting with sob. TECHNIQUE: Portable upright AP view of the chest was obtained. COMPARISON: 05/25/2018. FINDINGS: Atherosclerosis of the aortic arch. Cardiac silhouette enlarged. Heterogeneity of lung parenchyma. No focal opacity. No large effusion or pneumothorax. Degenerative changes of the thoracic spine. Post p rocedural changes of kyphoplasty suggested. Right shoulder arthroplasty. Upper abdomen normal. IMPRESSION: 1. Cardiomegaly. No other convincing evidence of acute cardiopulmonary disease. Electronically signed by: Mukund Tirado M.D. 08/07/2018 9:31 PM
[2018-08-07 21:38] LABS: Albumin Globulin Ratio 0.6 (0.9-2); Alkaline Phosphatase 79 U/L (45-117); Bilirubin,Total 0.2 mg/dl (0.2-1); Globulin 4.9 gm/dl (2.5-4.0); Troponin I < 0.015 ng/ml (0-0.045)
[2018-08-07 21:40] LABS: Influenza A virus by PCR Neg for Influ A (Neg); Influenza B virus by PCR Neg for Influ B (Neg)
[2018-08-07] MEDS ORDERED: SODIUM CHLORIDE 0.9% 500 ML IV STA (21:59)
[2018-08-07] MEDS ORDERED: ACETAMINOPHEN 1000 MG/100 ML IV IV STA (22:33)
--- NOTE | 2018-08-08 00:05 | Emergency Department Note ---
Entered by Sofie Scherer acting as a scribe for Juan J Escobar MD History of Present Illness General Chief complaint: Shortness of Breath/Dyspnea Stated complaint: SOB Time Seen by Provider: 08/07/18 20:32 Source: patient History of Present Illness Onset (ago): week(s) 2 Location: chest Pain Consistency: + constant Quality: + other (shortness of breath) Relieved By: not by medication (nebulizers, inhalers) Exacerbated By: + movement (exertion) Associated symptoms: + chest pain, + cough (productive) and + rash; no fever/ chills (fever) The patient is a 68 year old female who presents to the Emergency Room with complaints of constant shortness of breath starting 2 weeks ago. The patient states that she has a history of COPD and is on 4L of O2 at all times. She reports that over the past 2 weeks she has been having trouble breathing that is worse with exertion. She states that she has also had a productive cough. She reports that she has been using her inhalers and nebulizer treatments with little relief. She reports that she called her PCP to make an appointment and has one in 2 days, but felt like she needed help sooner. The patient complains of intermittent chest pain and a rash under her left breast. She notes that she has been using antibiotic cream on the rash with no relief. The patient denies fever, currently taking antibiotics, currently being on steroids, getting her flu shot this year, and being around anyone ill. Home Medications Home Medications Medication Instructions Recorded Confirmed Type Lactobacillus acidoph-L.bulgar 1 tab PO TIDM 03/12/18 08/07/18 History [Lactinex] allopurinol 300 mg PO DAILY 03/12/18 08/07/18 History aspirin [Aspir-81] 81 mg PO DAILY 03/12/18 08/07/18 History atorvastatin 20 mg PO QPM 03/12/18 08/07/18 History bumetanide 1 mg PO BID 03/12/18 08/07/18 History cholecalciferol (vitamin D3) 2,000 unit PO QAM 03/12/18 08/07/18 History [Vitamin D3] fluticasone-vilanterol [Breo 1 inh INHALATION DAILY 03/12/18 08/07/18 History Ellipta] gabapentin 600 mg PO TID 03/12/18 08/07/18 History levothyroxine 88 mcg PO DAILYBB 03/12/18 08/07/18 History losartan 50 mg PO DAILY 03/12/18 08/07/18 History metolazone 2.5 mg PO 2XWK 03/12/18 08/07/18 History metoprolol succinate 50 mg PO DAILY 03/12/18 08/07/18 History multivitamin 1 tab PO DAILY 03/12/18 08/07/18 History omeprazole 20 mg PO DAILYBB 03/12/18 08/07/18 History potassium chloride 20 meq PO Q OTHER DAY 03/12/18 08/07/18 History prednisone 10 mg PO QAM 03/12/18 08/07/18 History propafenone 150 mg PO Q8H 03/12/18 08/07/18 History ranitidine HCl 150 mg PO BID 03/12/18 08/07/18 History roflumilast [Daliresp] 500 mcg PO DAILY 03/12/18 08/07/18 History sertraline [Zoloft] 25 mg PO DAILY 03/12/18 08/07/18 History tramadol 50 mg PO Q8 PRN 03/12/18 08/07/18 History triamcinolone acetonide 1 applic TOPICAL BID PRN 03/12/18 08/07/18 History acetaminophen [Tylenol] 650 mg PO Q4 PRN 08/07/18 08/07/18 History albuterol sulfate 2.5 mg INHALATION Q6 PRN 08/07/18 08/07/18 History meloxicam [Mobic] 15 mg PO DAILY 08/07/18 08/07/18 History Allergies Allergy/AdvReac Type Severity Reaction Status Date / Time adhesive Allergy Severe RED RASH Verified 08/07/18 21:39 latex AdvReac Mild TAPE-SORE Verified 08/07/18 21:39 morphine AdvReac Mild DELUSIONS Verified 08/07/18 21:39 Past Med/Surg History Medical History SALBADOR (acute kidney injury) GI bleeding (Acute) Consider an iron panel and ferritin. Dehydration (Acute) Anemia (Acute) Weakness (Acute) GERD (gastroesophageal reflux disease) (Chronic) Depression (Chronic) Myocardial infarction (Chronic) "per patient, details unknown" COPD (chronic obstructive pulmonary disease) (Chronic) Paroxysmal a-fib (Chronic) CHF (congestive heart failure) (Chronic) "diastolic" HTN (hypertension) (Chronic) Dyslipidemia (Chronic) EVONNE (iron deficiency anemia) (Chronic) CKD (chronic kidney disease), stage IV (Chronic) Asthma (Chronic) Lumbar spinal stenosis (Chronic) Morbid obesity (Chronic) Respiratory failure, [id number] (Acute) Obesity hypoventilation syndrome (Chronic) Bronchitis (Acute) Diverticulitis Surgical History S/P cervical spinal fusion (Chronic) History of appendectomy (Chronic) Hx of cholecystectomy (Chronic) S/P wrist surgery (Chronic) 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 Mother , DMII, Brain Aneurysm No problems noted. Daughter Bipolar 1 disorder Sister No problems noted. Sister No problems noted. Social History Current Living Situation: Family Feels Safe at Home: Yes Smoking Status: Former smoker Hx Alcohol Use: No Hx Substance Use: No Beliefs That Will Affect Care: None Preferred Language: Estonian Review of Systems See HPI for pertinent positives & negatives. and A total of 10 systems reviewed and were otherwise negative Physical Exam Vital Signs Vital Signs - 24 hr 08/07/18 20:05 08/07/18 21:05 08/07/18 22:00 Temperature 36.8 C Temperature Source Oral Sepsis Recent Fever Within 48 Hours No Sepsis New/Unexplained Change in Mental Status No Sepsis Action Taken by Nursing No Action Required Pulse Rate 65 65 Pulse Rate [Apical] 65 Pulse Rhythm Regular Pulse Rhythm [Apical] Regular Respiratory Rate 16 16 18 Respiratory Effort / Characteristics Spontaneous Respiratory Depth Normal Normal Respiratory Pattern Regular Blood Pressure 179/78 H Blood Pressure [Right Arm] 169/72 H Blood Pressure Mean 111 Blood Pressure Mean [Right Arm] 104 Pulse Oximetry 100 100 100 Oxygen Delivery Method Nasal Cannula Nasal Cannula Room Air Oxygen Flow Rate 4 4 08/07/18 22:02 08/07/18 22:31 08/07/18 23:03 Temperature Temperature Source Sepsis Recent Fever Within 48 Hours Sepsis New/Unexplained Change in Mental Status Sepsis Action Taken by Nursing Pulse Rate 65 67 Pulse Rate [Apical] 64 Pulse Rhythm Pulse Rhythm [Apical] Respiratory Rate 23 17 19 Respiratory Effort / Characteristics Respiratory Depth Respiratory Pattern Blood Pressure 169/72 H 195/83 H Blood Pressure [Right Arm] 170/53 H Blood Pressure Mean 104 120 Blood Pressure Mean [Right Arm] 92 Pulse Oximetry 100 100 100 Oxygen Delivery Method Nasal Cannula Nasal Cannula Nasal Cannula Oxygen Flow Rate 4 4 4 08/08/18 00:03 08/08/18 00:31 08/08/18 01:00 Temperature Temperature Source Sepsis Recent Fever Within 48 Hours Sepsis New/Unexplained Change in Mental Status Sepsis Action Taken by Nursing Pulse Rate 67 68 Pulse Rate [Apical] 67 Pulse Rhythm Pulse Rhythm [Apical] Respiratory Rate 19 18 18 Respiratory Effort / Characteristics Respiratory Depth Respiratory Pattern Blood Pressure 166/65 H 161/58 H Blood Pressure [Right Arm] 159/64 H Blood Pressure Mean 98 92 Blood Pressure Mean [Right Arm] 95 Pulse Oximetry 100 100 100 Oxygen Delivery Method Nasal Cannula Nasal Cannula Nasal Cannula Oxygen Flow Rate 4 4 4 08/08/18 01:01 Temperature Temperature Source Sepsis Recent Fever Within 48 Hours Sepsis New/Unexplained Change in Mental Status Sepsis Action Taken by Nursing Pulse Rate 68 Pulse Rate [Apical] Pulse Rhythm Pulse Rhythm [Apical] Respiratory Rate 17 Respiratory Effort / Characteristics Respiratory Depth Respiratory Pattern Blood Pressure 161/58 H Blood Pressure [Right Arm] Blood Pressure Mean 92 Blood Pressure Mean [Right Arm] Pulse Oximetry 100 Oxygen Delivery Method Nasal Cannula Oxygen Flow Rate 4 GENERAL: Patient is in no acute distress. HEENT: No acute trauma, normocephalic atraumatic, mucous membranes moist, no nasal congestion, no scleral icterus. NECK: No stridor, no adenopathy, no meningismus, trachea is midline. LUNGS: Crackles bilaterally especially at the bases, more so on the right. A few wheezes are heard. Equal breath sounds. No respiratory distress. HEART: 2/6 systolic murmur. Regular rate and rhythm. ABDOMEN: Soft, nontender, bowel sounds positive, no hernias, no peritonitis. EXTREMITIES: No cyanosis or edema, full range of motion of all the joints without pain or difficulty, no signs for acute trauma. NEUROLOGIC: Oriented x 3, no acute motor or sensory deficits, no focal weakness. SKIN: No jaundice, no diaphoresis. Course 2033: Past medical records reviewed. The patient was evaluated in room A2, and a complete history and physical examination were performed. 2205: I reevaluated the patient and updated her and her family on her test results. I discussed the treatment plan with them. They verbally agree and understand. 9: I paged the hospitalist at this time. 2211: I reviewed the patient's case with Dr. Celia Alex Hospitalist. He will evaluate the patient for further management. Consultations Consultation #1: I reviewed the patient's case with Dr. Celia Alex Hospitalist. He will evaluate the patient for further management. Time: 22:11 Administered Medications Discontinued Medications Acetaminophen (Ofirmev) 1,000 mg IV NOW STA Stop: 08/07/18 22:34 Last Admin: 08/07/18 22:42 Dose: 1,000 mg Albuterol (Duoneb) 3 ml INH NOW STA Stop: 08/07/18 20:41 Last Admin: 08/07/18 21:23 Dose: 3 ml Ceftriaxone Sodium (Rocephin) 1,000 mg in 50 mls @ 100 mls/hr IV NOW STA Stop: 08/07/18 21:09 Last Infusion: 08/07/18 21:55 Dose: 0 mls/hr Admin: 08/07/18 21:24 Dose: 100 mls/hr Sodium Chloride (Nss) 500 mls @ 999 mls/hr IV .Q31M STA Stop: 08/07/18 22:29 Last Infusion: 08/07/18 22:30 Dose: 0 mls/hr Admin: 08/07/18 22:01 Dose: 999 mls/hr Methylprednisolone (Solumedrol) 125 mg IV NOW STA Stop: 08/07/18 20:41 Last Admin: 08/07/18 21:23 Dose: 125 mg Medical Decision Making Differential Diagnosis Differential diagnoses include exacerbation of COPD, bronchitis or pneumonia, CHF, electrolyte imbalance, anemia, CO, pneumothorax, influenza. Medical Records Attestation: I reviewed the patient's medical records. Home Medications Current Medication List: was personally reviewed by me Laboratory Data Attestation: I reviewed the patient's lab results. Result diagrams: 08/07/18 20:59 08/07/18 20:59 Lab Results 08/07/18 08/07/18 08/07/18 Range/Units 20:59 20:59 20:59 WBC 9.61 (4.8-10.8) K/uL RBC 3.05 L (4.2-5.4) M/uL Hgb 9.3 L (12.0-16.0) g/dL Hct 31.6 L (37-47) % MCV 103.6 H (80-100) fL MCH 30.5 (25-34) pg MCHC 29.4 L (32-36) g/dL RDW Std Deviation 54.6 H (36.4-46.3) fL RDW Coeff of Arabella 14.5 (11.5-14.5) % Plt Count 152 (130-400) K/uL MPV 9.1 (7.4-10.4) fL Immature Gran % (Auto) 0.2 % Neut % (Auto) 73.0 % Lymph % (Auto) 14.9 % [place] % (Auto) 7.7 % Eos % (Auto) 3.9 % Baso % (Auto) 0.3 % Immature Gran # (Auto) 0.02 (0.00-0.02) K/uL Neut # (Auto) 7.02 H (1.4-6.5) K/uL Lymph # (Auto) 1.43 (1.2-3.4) K/uL [place] # (Auto) 0.74 H (0.11-0.59) K/uL Eos # (Auto) 0.37 (0-0.5) K/uL Baso # (Auto) 0.03 (0-0.2) K/uL PT 10.9 (9.0-12.0) Seconds INR 1.1 (0.9-1.1) APTT 23.1 (21.0-31.0) Seconds PTT Ratio 0.9 Sodium 139 (136-145) mmol/L Potassium 4.8 (3.5-5.1) mmol/L Chloride 98 (98-107) mmol/L Carbon Dioxide 39 H (21-32) mmol/L Anion Gap 2.0 L (3-11) BUN 40 H (7-18) mg/dl Creatinine 2.12 H (0.6-1.2) mg/dl Est Cr Clr Drug Dosing 29.9 ml/min Est GFR ( Amer) 26.7 Est GFR (Non-Af Amer) 23.0 BUN/Creatinine Ratio 18.7 (10-20) Glucose 109 H (70-99) mg/dl Calcium 9.4 (8.5-10.1) mg/dl Magnesium 2.0 (1.8-2.4) mg/dl Total Bilirubin 0.2 (0.2-1) mg/dl AST 8 L (15-37) U/L ALT 12 (12-78) U/L Alkaline Phosphatase 79 (45-117) U/L Troponin I < 0.015 (0-0.045) ng/ml Total Protein 8.0 (6.4-8.2) gm/dl Albumin 3.1 L (3.4-5.0) gm/dl Globulin 4.9 H (2.5-4.0) gm/dl Albumin/Globulin Ratio 0.6 L (0.9-2) Influenza Type A (PCR) (Neg) Influenza Type B (PCR) (Neg) 08/07/18 Range/Units 21:01 WBC (4.8-10.8) K/uL RBC (4.2-5.4) M/uL Hgb (12.0-16.0) g/dL Hct (37-47) % MCV (80-100) fL MCH (25-34) pg MCHC (32-36) g/dL RDW Std Deviation (36.4-46.3) fL RDW Coeff of Arabella (11.5-14.5) % Plt Count (130-400) K/uL MPV (7.4-10.4) fL Immature Gran % (Auto) % Neut % (Auto) % Lymph % (Auto) % [place] % (Auto) % Eos % (Auto) % Baso % (Auto) % Immature Gran # (Auto) (0.00-0.02) K/uL Neut # (Auto) (1.4-6.5) K/uL Lymph # (Auto) (1.2-3.4) K/uL [place] # (Auto) (0.11-0.59) K/uL Eos # (Auto) (0-0.5) K/uL Baso # (Auto) (0-0.2) K/uL PT (9.0-12.0) Seconds INR (0.9-1.1) APTT (21.0-31.0) Seconds PTT Ratio Sodium (136-145) mmol/L Potassium (3.5-5.1) mmol/L Chloride (98-107) mmol/L Carbon Dioxide (21-32) mmol/L Anion Gap (3-11) BUN (7-18) mg/dl Creatinine (0.6-1.2) mg/dl Est Cr Clr Drug Dosing ml/min Est GFR ( Amer) Est GFR (Non-Af Amer) BUN/Creatinine Ratio (10-20) Glucose (70-99) mg/dl Calcium (8.5-10.1) mg/dl Magnesium (1.8-2.4) mg/dl Total Bilirubin (0.2-1) mg/dl AST (15-37) U/L ALT (12-78) U/L Alkaline Phosphatase (45-117) U/L Troponin I (0-0.045) ng/ml Total Protein (6.4-8.2) gm/dl Albumin (3.4-5.0) gm/dl Globulin (2.5-4.0) gm/dl Albumin/Globulin Ratio (0.9-2) Influenza Type A (PCR) Neg for Influ A (Neg) Influenza Type B (PCR) Neg for Influ B (Neg) Imaging Data Radiologist's Impression: Radiology results as stated below per my review and the radiologist's interpretation: XR chest 1V portable CLINICAL HISTORY: 68 years-old Female presenting with sob. TECHNIQUE: Portable upright AP view of the chest was obtained. COMPARISON: 05/25/2018. FINDINGS: Atherosclerosis of the aortic arch. Cardiac silhouette enlarged. Heterogeneity of lung parenchyma. No focal opacity. No large effusion or pneumothorax. Degenerative changes of the thoracic spine. Post procedural changes of kyphoplasty suggested. Right shoulder arthroplasty. Upper abdomen normal. IMPRESSION: 1. Cardiomegaly. No other convincing evidence of acute cardiopulmonary disease. Electronically signed by: Mukund Tirado M.D. 08/07/2018 9:31 PM ECG Data Attestation: I personally reviewed and interpreted this ECG as follows: Indication: SOB/dyspnea Rate (beats per minute): 64 Rhythm: normal sinus Findings: no PVC and no ST elevation Blood Pressure Blood Pressure Findings: Elevated blood pressure Blood Pressure Disposition: further management by hospitalist [facility] Narrative There is no leukocytosis. The patient is anemic but this is baseline looking back at previous testing. There is no coagulopathy. Renal panel testing does show some mild dehydration/acute renal failure with a creatinine over 2. No evidence for hepatitis. EKG shows a sinus rhythm, no acute ischemia. Cardiac enzyme testing x1 is not consistent with acute cardiac injury. Influenza testing returned negative. Blood cultures are pending. Chest film shows cardiomegaly and some chronic lung change, no pneumonia, CHF or pneumothorax. The patient was given IV Tylenol for pain. She received a DuoNeb, IV ceftriaxone and IV Solu-Medrol. Patient likely has an acute bronchitis or an early pneumonia. This has caused a flare of her COPD. She is likely somewhat dehydrated as well, this would explain the bump to her creatinine. I do think a hospital stay is warranted. She has become quite dyspneic at home and cannot function with the increased shortness of breath. She has had similar presentations to the hospital before. I did speak to the patient and upper caser. The on-call hospitalist was consulted. Impression & Plan Acute bronchitis, COPD exacerbation, Dehydration, Shortness of breath Discharge Plan Visit Data Chief Complaint: Shortness of Breath/Dyspnea Stated Complaint: SOB ED Provider: Juan J Escobar Discharge Problem: Acute bronchitis, COPD exacerbation, Dehydration, Shortness of breath Patient Disposition: Being Evaluated by Hospitalist Discharge Instructions Interventions: ED Discharge Assessment Last Done: 08/08/18 01:26 Forms Stand Alone Forms: My [facility] Prescriptions Prescriptions: No Action fluticasone-vilanterol [Breo Ellipta] 200-25 mcg/dose Blister With Device 1 inh INHALATION DAILY RF: 0 multivitamin Tablet 1 tab PO DAILY RF: 0 losartan 50 mg Tablet 50 mg PO DAILY RF: 0 metolazone 2.5 mg Tablet 2.5 mg PO 2XWK RF: 0 propafenone 150 mg Tablet 150 mg PO Q8H RF: 0 prednisone 10 mg Tablet 10 mg PO QAM RF: 0 gabapentin 600 mg Tablet 600 mg PO TID RF: 0 atorvastatin 20 mg Tablet 20 mg PO QPM RF: 0 metoprolol succinate 50 mg Tablet Extended Release 24 Hr 50 mg PO DAILY RF: 0 aspirin [Aspir-81] 81 mg Tablet,Delayed Release (Dr/Ec) 81 mg PO DAILY RF: 0 tramadol 50 mg Tablet 50 mg PO Q8 PRN (Reason: Pain) RF: 0 triamcinolone acetonide 0.1 % Cream 1 applic TOPICAL BID PRN (Reason: Skin Irritation) RF: 0 levothyroxine 88 mcg Tablet 88 mcg PO DAILYBB RF: 0 ranitidine HCl 150 mg Tablet 150 mg PO BID RF: 0 sertraline [Zoloft] 25 mg Tablet 25 mg PO DAILY RF: 0 omeprazole 20 mg Capsule,Delayed Release(Dr/Ec) 20 mg PO DAILYBB RF: 0 bumetanide 1 mg Tablet 1 mg PO BID RF: 0 allopurinol 300 mg Tablet 300 mg PO DAILY RF: 0 cholecalciferol (vitamin D3) [Vitamin D3] 2,000 unit Tablet 2,000 unit PO QAM RF: 0 Lactobacillus acidoph-L.bulgar [Lactinex] 1 million cell Tablet,Chewable 1 tab PO TIDM RF: 0 roflumilast [Daliresp] 500 mcg Tablet 500 mcg PO DAILY RF: 0 potassium chloride 20 mEq Tablet Extended Release 20 meq PO Q OTHER DAY RF: 0 meloxicam [Mobic] 15 mg Tablet 15 mg PO DAILY RF: 0 acetaminophen [Tylenol] 325 mg Capsule 650 mg PO Q4 PRN (Reason: Fever Or Pain) RF: 0 albuterol sulfate 2.5 mg /3 mL (0.083 %) Solution For Nebulization 2.5 mg INHALATION Q6 PRN (Reason: Shortness Of Breath Or Wheezing) RF: 0 Referrals Referrals: Babak Melendez MD [Primary Care Provider] - The scribe's documentation has been prepared under my direction and personally reviewed by me in its entirety. I confirm that the note above accurately reflects all work, treatment, procedures, and medical decision making performed by me.
[2018-08-08] MEDS ORDERED: ALBUTEROL 0.083% NEBU SOLN 3 ML VIAL INH PRN (02:04)
[2018-08-08] MEDS ORDERED: SODIUM CHLORIDE 0.9% 1000ML 1,000 ML IV SCH (02:04)
[2018-08-08] MEDS ORDERED: NITROGLYCERIN SL 0.4 MG/TAB TAB SL PRN (02:04)
[2018-08-08] MEDS ORDERED: ONDANSETRON INJ 2 MG/ML 2 ML VIAL IV PRN (02:04)
[2018-08-08] MEDS ORDERED: TRIAMCINOLONE ACET 0.1% CR 15 GM TUBE TOP PRN (02:04)
[2018-08-08] MEDS ORDERED: TRAMADOL HCL 50 MG TABLET PO PRN (02:04)
[2018-08-08] MEDS ORDERED: MoRPHine SULFATE 4 MG/ML 1 ML CARP\\VIAL IV PRN (02:04)
[2018-08-08] MEDS ORDERED: ACETAMINOPHEN 325 MG TAB PO PRN (02:04)
--- NOTE | 2018-08-08 02:10 | History and Physical Report ---
DATE OF ADMISSION: 08/07/2018 CHIEF COMPLAINT: Shortness of breath. HISTORY OF PRESENT ILLNESS: This is a 68-year-old female with past medical history significant for hyperlipidemia, hypothyroidism, chronic respiratory failure, on 4 liters oxygen all the time, chronic obstructive pulmonary disease, atrial fibrillation, hypertension, right-sided heart failure, gastroesophageal reflux disease, obesity, chronic kidney disease stage III, iron deficiency anemia, depression and anxiety who presents with shortness of breath going on for last 2 weeks, but got progressively worse, coughing up yellow greenish phlegm. Denies any fever, but feeling chills, has some headache. Sometime, in the morning, she wakes up with headaches. Denies any runny nose. No sore throat. Appetite is okay. Sleeping is okay, has some left-sided chest pain, left shoulder pain, requesting pain medication. No nausea. No vomiting. No abdominal pain. Normal bowel and bladder movements. Lives with her daughter, ambulates with a cane and walker at home. Currently hemodynamically stable. ALLERGIES: No known drug allergies. PAST MEDICAL HISTORY: As mentioned above. PAST SURGICAL HISTORY: Colonoscopy, neck fusion surgery, appendectomy, cholecystectomy, right shoulder surgery, right total hip replacement and repair of the wrist. MEDICATIONS: The patient is on Bumex 1 mg p.o. b.i.d., Zaroxolyn 2.5 mg once a day on Wednesday and Wednesday only, gabapentin 600 mg p.o. t.i.d., allopurinol 300 mg p.o. daily, propafenone 150 mg p.o. q. 8 hours, omeprazole 20 mg p.o. daily, Daliresp 500 mcg p.o. daily, Klor-Con 20 mEq p.o. daily, atorvastatin 20 mg p.o. daily, vitamin D 2000 units p.o. daily, Zoloft 25 mg p.o. daily, levothyroxine 88 mcg p.o. daily, metoprolol succinate 50 mg p.o. daily, Meloxicam 50 mg p.o. daily, Breo Ellipta 200/25 mcg one puff daily, triamcinolone applied to affected area b.i.d. p.r.n., Zantac 150 mg p.o. b.i.d., prednisone 10 mg daily in a.m., Ultram 50 mg p.o. q. 8 hours p.r.n., Cozaar 50 mg p.o. daily, albuterol nebulization every 4-6 hours p.r.n., Tylenol 650 mg p.o. q. 4 hours p.r.n., lactobacillus 1 tablet p.o. t.i.d., multivitamins 1 tablet daily and aspirin 81 mg p.o. daily. FAMILY HISTORY: Significant for mother had diabetes and heart disorder. Sister has heart disorder. SOCIAL HISTORY: . Lives with her daughter. Quit smoking in 2009. Smoked 0.5 pack a day for 35 years. No alcohol use. No drug use. REVIEW OF SYSTEMS: As per HPI. Rest of review of systems is negative. PHYSICAL EXAMINATION: GENERAL: The patient is obese, not in acute distress. VITAL SIGNS: Temperature 36.8, pulse 65, respiratory rate 18, blood pressure 116/72 and oxygen 100% on room air. HEENT: No pallor. No icterus. Pupils are equal and round react to light. NECK: No JVD. No neck masses. No carotid bruits. CARDIOVASCULAR: S1, S2 heard. Regular rate and rhythm. No murmur. No gallop. RESPIRATORY SYSTEM: Normal AP diameter. Mild occasional wheezing. No crackles. ABDOMEN: Soft. Bowel sounds are present. Nontender. No distention. CENTRAL NERVOUS SYSTEM: Cranial nerves II through XII are grossly intact. Nonfocal. EXTREMITIES: Trace pedal edema. No erythema seen. LABORATORY DATA: WBC 9.6, hemoglobin 9.3, hematocrit 31.6 and platelets 152. PT 10.9, INR 1.1 and APTT 23.1. Sodium 139, potassium 4.8, chloride 98, bicarb 39, BUN 40, creatinine 2.1, serum glucose 109, calcium 9.4, magnesium 2, total bilirubin 0.2, AST 8, ALT 12 and alkaline phosphatase 110. Troponin I less than 0.015. Influenza A and B negative. Chest x-ray, cardiomegaly, no other convincing evidence of acute cardiopulmonary disease. ASSESSMENT AND PLAN: This is a 68-year-old female who presents with shortness of breath with chronic obstructive pulmonary disease exacerbation. 1. Shortness of breath, chronic obstructive pulmonary disease, with no acute infiltrates. We will place her on I.V. Solu-Medrol and nebs [id number] and p.r.n. and p.o. Doxycycline. Continue home oxygen and oral home inhalers. Monitor in Med/Surg floor. We will also continue her home Daliresp. 2. History of atrial fibrillation, anticoagulation, on aspirin. Continue oral Toprol-XL and Rythmol. 3. History of right-sided heart failure, currently stable. On Bumex and Zaroxolyn on Wednesday and Wednesday.Holding diuretics for SALBADOR. Monitor for volume overload. 4. Left upper chest pain and shoulder pain. Will follow serial CE. Mostly musculoskeletal. 5. Gout, continue allopurinol. 6. Gastroesophageal reflux disease, continue proton pump inhibitor. 7. Hyperlipidemia, continue statin. 8. Depression and anxiety, continue Zoloft. 9. Hypothyroidism, continue Synthroid. 10. Hypertension, on Toprol-XL and Cozaar. Monitor the blood pressure. 11. Morbid obesity, counseling and followup. 12. Acute renal failure and chronic kidney disease stage III, baseline creatinine 1.4-1.5, currently creatinine of 2.1. Received fluid in the Emergency Room. We will give some gentle fluids and follow the laboratories in a.m. 12. Deep venous thrombosis prophylaxis, heparin subQ. DISPOSITION: Admit to Med/Surg Tele. Physical therapy and occupational therapy prior to discharge. Social Service to help with discharge planning. Level 1 full code. MTDD
[2018-08-08] MEDS: OXYCODONE/ACETAMINOPHEN 5mg/325mg TAB PO PRN ×2 (05:24→21:19)
[2018-08-08] MEDS: HEPARIN SOD 5,000 UNIT/0.5 ML VIAL SQ SCH ×3 (05:24→21:22)
[2018-08-08] MEDS: PROPAFENONE HCL 150 MG TABLET PO SCH ×3 (05:25→21:21)
[2018-08-08] MEDS: methylPREDNISolone 40 MG in SYRINGE 0 ML IV SCH ×3 (05:25→21:28)
[2018-08-08] MEDS: PANTOprazole 40 MG TAB PO SCH (05:25)
[2018-08-08] MEDS: LEVOTHYROXINE SODIUM 88 MCG TABLET PO SCH (05:25)
[2018-08-08] MEDS: ALBUT/IPRATROP 3MG/0.5MG NEB 3 ML VIAL NEB SCH ×4 (07:07→19:04)
[2018-08-08] MEDS: LOSARTAN POTASSIUM 50 MG TAB PO SCH (09:04)
[2018-08-08] MEDS: CHOLECALCIFEROL 1,000 UNITS TAB PO SCH (09:04)
[2018-08-08] MEDS: DOXYCYCLINE HYCLATE 100 MG CAP PO SCH ×2 (09:04→21:20)
[2018-08-08] MEDS: GABAPENTIN 600 MG TAB PO SCH ×3 (09:04→21:20)
[2018-08-08] MEDS: ALLOPURINOL 300 MG TAB PO SCH (09:05)
[2018-08-08] MEDS: SERTRALINE HCL 50 MG TABLET PO SCH (09:05)
[2018-08-08] MEDS: ASPIRIN 81 MG ECTAB PO SCH (09:07)
[2018-08-08] MEDS: METOPROLOL SUCC 50MG EXT REL TAB PO SCH (09:07)
[2018-08-08] MEDS: LACTOBACILLUS ACIDOPHILUS (FLORANEX) TAB PO SCH ×3 (09:07→17:33)
[2018-08-08] MEDS: MULTIVITAMIN TAB PO SCH (09:08)
[2018-08-08] MEDS: ROFLUMILAST 500 MCG TAB PO SCH (09:08)
--- NOTE | 2018-08-08 14:26 | Hospitalist Progress Note ---
Date of Service August 08, 2018 Assessment & Plan (1) COPD exacerbation: History of chronic respiratory failure Admitted with acute shortness of breath Has been put on intravenous Solu-Medrol, bronchodilator and antibiotic May have right lower lobe infiltration on clinical examination Has been feeling better since admission We will continue current treatment (2) SALBADOR (acute kidney injury): History of chronic kidney disease Creatinine went up from 1.4 to-2.1 Receiving cautious amount of IV fluid Monitor PRP (3) CHF (congestive heart failure): History of congestive heart failure No signs of acute volume overload now Received cautious amount of (4) HTN (hypertension): Continue current medicines (5) CKD (chronic kidney disease), stage IV: As above Other medical condition including Paroxysmal atrial fibrillation Hyperlipidemia Iron deficiency anemia Depression and GERD remains stable DVT prophylaxis Subcu heparin Subjective This is a 68-year-old female with significant past medical history of COPD, CHF , CKD and other medical condition as mentioned in H&P was admitted with another episode of shortness of breath secondary to COPD exacerbation with possible pneumonia. 08/08 The patient was seen and examined the medical floor Her breathing has been better since admission Still has moderate amount of wheezing Denies any chest pain and/or palpitation No abdominal pain nausea vomiting Physical Exam 2 Vital Signs (Past 24 Hours): Last Vital Signs Temp 36.7 C 08/08/18 11:28 Pulse 73 08/08/18 11:50 Resp 20 08/08/18 11:28 BP 128/69 08/08/18 11:28 Pulse Ox 97 08/08/18 11:28 Physical Exam: Sitting in a chair with Constitutional: WD/WN, vitals as above Eyes: PERRL, conjunctivae normal, anicteric sclerae ENMT: external ear and nose normal, oropharynx normal Respiratory: + respiratory distress (Mild to moderate respiratory distress) Auscultation: + diminished lung sounds, + crackles (Right base) and + wheezes (Minimal wheezing) Cardiovascular: Rate/Rhythm: regular rate and regular rhythm Heart Sounds: normal S1 and normal S2 Gastrointestinal (Abdomen): normal bowel sounds, soft, nontender, no hepatosplenomegaly Neurologic: Alert, awake and oriented x3. Generally weak but no focal neuro deficit Results & Data Laboratory Results Short CBC 08/07/18 Range/Units 20:59 WBC 9.61 (4.8-10.8) K/uL Hgb 9.3 L (12.0-16.0) g/dL Hct 31.6 L (37-47) % Plt Count 152 (130-400) K/uL BMP 08/07/18 20:59 Sodium 139 Potassium 4.8 Chloride 98 Carbon Dioxide 39 H BUN 40 H Creatinine 2.12 H Glucose 109 H Calcium 9.4 Cardiac Enzymes 08/07/18 08/08/18 08/08/18 Range/Units 20:59 02:15 07:41 Troponin I < 0.015 < 0.015 < 0.015 (0-0.045) ng/ml Liver Function 08/07/18 Range/Units 20:59 Total Bilirubin 0.2 (0.2-1) mg/dl AST 8 L (15-37) U/L ALT 12 (12-78) U/L Alkaline Phosphatase 79 (45-117) U/L Albumin 3.1 L (3.4-5.0) gm/dl Medications Administered Current Inpatient Medications Acetaminophen (Tylenol) 650 mg PO Q4H PRN PRN Reason: Pain or Fever Stop: 09/07/18 02:03 Albuterol (Ventolin 0.083% 2.5mg/3ml) 2.5 mg INH Q6 PRN PRN Reason: Shortness Of Breath Or Wheezing Stop: 09/07/18 02:03 Albuterol (Duoneb) 3 ml NEB QIDR [facility] Stop: 09/07/18 07:59 Last Admin: 08/08/18 11:12 Dose: 3 ml Allopurinol (Zyloprim) 300 mg PO DAILY [facility] Stop: 09/07/18 08:59 Last Admin: 08/08/18 09:05 Dose: 300 mg Aspirin (Ecotrin Ectab) 81 mg PO DAILY [facility] Stop: 09/07/18 08:59 Last Admin: 08/08/18 09:07 Dose: 81 mg Atorvastatin Calcium (Lipitor) 20 mg PO QPM [facility] Stop: 09/07/18 20:59 Doxycycline Hyclate (Vibramycin) 100 mg PO BID [facility] Stop: 08/15/18 08:59 Last Admin: 08/08/18 09:04 Dose: 100 mg Gabapentin (Neurontin) 600 mg PO TID [facility] Stop: 09/07/18 08:59 Last Admin: 08/08/18 14:15 Dose: 600 mg Heparin Sodium (Porcine) (Heparin Sodium (Porcine)) 5,000 units SQ Q8 [facility] Stop: 09/07/18 05:59 Last Admin: 08/08/18 14:15 Dose: 5,000 units Methylprednisolone 40 mg/ (Syringe) 0.64 mls @ 1.5 mls/min IV Q8 [facility] Stop: 09/07/18 05:59 Last Admin: 08/08/18 14:14 Dose: 1.5 mls/min Lactobacillus Acidophilus (Floranex) 1 tab PO TIDM [facility] Stop: 09/07/18 07:59 Last Admin: 08/08/18 11:48 Dose: 1 tab Levothyroxine Sodium (Synthroid) 88 mcg PO DAILYBB [facility] Stop: 09/07/18 06:29 Last Admin: 08/08/18 05:25 Dose: 88 mcg Losartan Potassium (Cozaar) 50 mg PO DAILY [facility] Stop: 09/07/18 08:59 Last Admin: 08/08/18 09:04 Dose: 50 mg Metoprolol Succinate (Toprol Xl) 50 mg PO DAILY [facility] Stop: 09/07/18 08:59 Last Admin: 08/08/18 09:07 Dose: 50 mg Miscellaneous (Order Awaiting Action) 1 ea N/A QS [facility] Stop: 09/07/18 07:59 Last Admin: 08/08/18 09:08 Dose: Not Given Multivitamins (Multivitamin Tab) 1 tab PO DAILY [facility] Stop: 09/07/18 08:59 Last Admin: 08/08/18 09:08 Dose: 1 tab Nitroglycerin (Nitrostat) 0.4 mg SL UD PRN PRN Reason: Chest Pain Stop: 09/07/18 02:03 Ondansetron HCl (Zofran) 4 mg IV Q6H PRN PRN Reason: Nausea Stop: 09/07/18 02:03 Last Admin: 08/08/18 03:20 Dose: 4 mg Oxycodone/Acetaminophen (Percocet 5mg/325mg) 1 tab PO Q6H PRN PRN Reason: Pain Stop: 08/22/18 04:54 Last Admin: 08/08/18 05:24 Dose: 1 tab Pantoprazole Sodium (Protonix) 40 mg PO DAILYBB [facility] Stop: 09/07/18 06:29 Last Admin: 08/08/18 05:25 Dose: 40 mg Propafenone HCl (Rythmol) 150 mg PO Q8 [facility] Stop: 09/07/18 05:59 Last Admin: 08/08/18 14:15 Dose: 150 mg Ranitidine HCl (Zantac) 150 mg PO BID [facility] Stop: 09/07/18 08:59 Last Admin: 08/08/18 09:07 Dose: 150 mg Roflumilast (Daliresp) 500 mcg PO DAILY [facility] Stop: 09/07/18 08:59 Last Admin: 08/08/18 09:08 Dose: 500 mcg Sertraline HCl (Zoloft) 25 mg PO DAILY [facility] Stop: 09/07/18 08:59 Last Admin: 08/08/18 09:05 Dose: 25 mg Tramadol HCl (Ultram) 50 mg PO Q8 PRN PRN Reason: Pain Stop: 09/07/18 02:03 Last Admin: 08/08/18 02:54 Dose: 50 mg Triamcinolone Acetonide (Kenalog 0.1%) 1 appln TOP BID PRN PRN Reason: Itching Stop: 09/07/18 02:03 Vitamin D (Vitamin D3) 2,000 units PO QAM [facility] Stop: 09/07/18 08:59 Last Admin: 08/08/18 09:04 Dose: 2,000 units
[2018-08-08] MEDS: ATORVASTATIN 20 MG TAB PO SCH (21:25)
[2018-08-09] MEDS: OXYCODONE/ACETAMINOPHEN 5mg/325mg TAB PO PRN ×2 (01:38→12:20)
[2018-08-09] MEDS: PANTOprazole 40 MG TAB PO SCH (06:08)
[2018-08-09] MEDS: LEVOTHYROXINE SODIUM 88 MCG TABLET PO SCH (06:08)
[2018-08-09] MEDS: PROPAFENONE HCL 150 MG TABLET PO SCH ×3 (06:09→20:53)
[2018-08-09] MEDS: HEPARIN SOD 5,000 UNIT/0.5 ML VIAL SQ SCH ×3 (06:09→20:50)
[2018-08-09] MEDS: methylPREDNISolone 40 MG in SYRINGE 0 ML IV SCH ×2 (06:12→13:28)
[2018-08-09] MEDS: ALBUT/IPRATROP 3MG/0.5MG NEB 3 ML VIAL NEB SCH ×2 (07:05→11:12)
[2018-08-09] MEDS: DOXYCYCLINE HYCLATE 100 MG CAP PO SCH ×2 (08:17→20:52)
[2018-08-09] MEDS: ROFLUMILAST 500 MCG TAB PO SCH (08:17)
[2018-08-09] MEDS: ASPIRIN 81 MG ECTAB PO SCH (08:17)
[2018-08-09] MEDS: SERTRALINE HCL 50 MG TABLET PO SCH (08:17)
[2018-08-09] MEDS: GABAPENTIN 600 MG TAB PO SCH ×3 (08:17→20:52)
[2018-08-09 08:18] LABS: Hematocrit (blood only) 32.5 % (37-47); Hemoglobin 9.5 g/dL (12.0-16.0); Immature Granulocytes # (auto) 0.02 K/uL (0.00-0.02); Immature Granulocytes % (auto) 0.2 %; Lymphocytes # (auto) 0.59 K/uL (1.2-3.4); Lymphocytes % (auto) 5.5 %; Mean Corpuscular Hgb Conc 29.2 g/dL (32-36); Mean Corpuscular Volume 101.9 fL (80-100); Mean Platelet Volume 9.6 fL (7.4-10.4); Monocytes # (auto) 0.29 K/uL (0.11-0.59); Monocytes % (auto) 2.7 %; Neutrophils # (auto) 9.78 K/uL (1.4-6.5); Neutrophils % (auto) 91.6 %; Platelet Count 149 K/uL (130-400); RDW Coefficient of Variation 14.8 % (11.5-14.5); RDW Standard Deviation 54.4 fL (36.4-46.3); Red Blood Count 3.19 M/uL (4.2-5.4); White Blood Count 10.68 K/uL (4.8-10.8)
[2018-08-09] MEDS: METOPROLOL SUCC 50MG EXT REL TAB PO SCH (08:18)
[2018-08-09] MEDS: MULTIVITAMIN TAB PO SCH (08:18)
[2018-08-09] MEDS: LOSARTAN POTASSIUM 50 MG TAB PO SCH (08:18)
[2018-08-09] MEDS: LACTOBACILLUS ACIDOPHILUS (FLORANEX) TAB PO SCH ×3 (08:18→17:03)
[2018-08-09] MEDS: CHOLECALCIFEROL 1,000 UNITS TAB PO SCH (08:18)
[2018-08-09] MEDS: ALLOPURINOL 300 MG TAB PO SCH (08:18)
[2018-08-09 08:52] LABS: BUN Creatinine Ratio 31.4 (10-20); Calcium 9.8 mg/dl (8.5-10.1); Creatinine Clr Calc Pharmacy 51.8 ml/min; Est GFR (African American) 51.5; Est GFR (Non-African American) 44.4; Magnesium 2.3 mg/dl (1.8-2.4); Potassium 5.1 mmol/L (3.5-5.1)
--- NOTE | 2018-08-09 13:43 | Hospitalist Progress Note ---
Date of Service August 09, 2018 Assessment & Plan (1) COPD exacerbation: History of chronic respiratory failure Admitted with acute shortness of breath Has been put on intravenous Solu-Medrol, bronchodilator and antibiotic May have right lower lobe infiltration on clinical examination Has been feeling better since admission We will continue current treatment Clinically a lot better We will change IV Solu-Medrol to oral prednisone We will get PT and OT evaluation Probable discharge tomorrow (2) SALBADOR (acute kidney injury): History of chronic kidney disease Creatinine went up from 1.4 to-2.1 Receiving cautious amount of IV fluid Monitor PRP-creatinine remains stable (3) CHF (congestive heart failure): Has chronic right-sided heart failure with preserved EF History of congestive heart failure No signs of acute volume overload now Received cautious amount of (4) HTN (hypertension): Continue current medicines (5) CKD (chronic kidney disease), stage IV: As above Other medical condition including Paroxysmal atrial fibrillation Hyperlipidemia Iron deficiency anemia Depression and GERD remains stable DVT prophylaxis Subcu heparin Disposition We will get PT evaluation and likely discharge tomorrow Subjective This is a 68-year-old female with significant past medical history of COPD, CHF , CKD and other medical condition as mentioned in H&P was admitted with another episode of shortness of breath secondary to COPD exacerbation with possible pneumonia. 08/08 The patient was seen and examined the medical floor Her breathing has been better since admission Still has moderate amount of wheezing Denies any chest pain and/or palpitation No abdominal pain nausea vomiting 08/09 Patient was seen and examined in medical She has been feeling a lot Still has some cough and wheezing is very minimal Physical Exam 2 Vital Signs (Past 24 Hours): Last Vital Signs Temp 36.6 C 08/09/18 11:44 Pulse 90 08/09/18 11:44 Resp 18 08/09/18 11:44 BP 145/63 H 08/09/18 11:44 Pulse Ox 97 08/09/18 11:44 Constitutional: WD/WN, vitals as above Eyes: PERRL, conjunctivae normal, anicteric sclerae ENMT: external ear and nose normal, oropharynx normal Respiratory: no respiratory distress Auscultation: + diminished lung sounds and + wheezes (Minimal wheezing) Cardiovascular: Rate/Rhythm: regular rate and regular rhythm Heart Sounds: normal S1 and normal S2 Gastrointestinal (Abdomen): normal bowel sounds, soft, nontender, no hepatosplenomegaly Neurologic: Alert, awake and oriented x3. No focal neuro deficit Results & Data Laboratory Results Short CBC 08/09/18 Range/Units 07:57 WBC 10.68 (4.8-10.8) K/uL Hgb 9.5 L (12.0-16.0) g/dL Hct 32.5 L (37-47) % Plt Count 149 (130-400) K/uL BMP 08/09/18 07:57 Sodium 140 Potassium 5.1 Chloride 101 Carbon Dioxide 37 H BUN 39 H Creatinine 1.23 H D Glucose 132 H Calcium 9.8 Cardiac Enzymes 08/08/18 Range/Units 14:23 Troponin I < 0.015 (0-0.045) ng/ml Medications Administered Current Inpatient Medications Acetaminophen (Tylenol) 650 mg PO Q4H PRN PRN Reason: Pain or Fever Stop: 09/07/18 02:03 Last Admin: 08/08/18 19:09 Dose: 650 mg Albuterol (Ventolin 0.083% 2.5mg/3ml) 2.5 mg INH Q6 PRN PRN Reason: Shortness Of Breath Or Wheezing Stop: 09/07/18 02:03 Allopurinol (Zyloprim) 300 mg PO DAILY [facility] Stop: 09/07/18 08:59 Last Admin: 08/09/18 08:18 Dose: 300 mg Aspirin (Ecotrin Ectab) 81 mg PO DAILY [facility] Stop: 09/07/18 08:59 Last Admin: 08/09/18 08:17 Dose: 81 mg Atorvastatin Calcium (Lipitor) 20 mg PO QPM [facility] Stop: 09/07/18 20:59 Last Admin: 08/08/18 21:25 Dose: 20 mg Doxycycline Hyclate (Vibramycin) 100 mg PO BID [facility] Stop: 08/15/18 08:59 Last Admin: 08/09/18 08:17 Dose: 100 mg Gabapentin (Neurontin) 600 mg PO TID [facility] Stop: 09/07/18 08:59 Last Admin: 08/09/18 13:26 Dose: 600 mg Heparin Sodium (Porcine) (Heparin Sodium (Porcine)) 5,000 units SQ Q8 [facility] Stop: 09/07/18 05:59 Last Admin: 08/09/18 13:26 Dose: 5,000 units Methylprednisolone 40 mg/ (Syringe) 0.64 mls @ 1.5 mls/min IV Q8 [facility] Stop: 09/07/18 05:59 Last Admin: 08/09/18 13:28 Dose: 1.5 mls/min Lactobacillus Acidophilus (Floranex) 1 tab PO TIDM [facility] Stop: 09/07/18 07:59 Last Admin: 08/09/18 11:35 Dose: 1 tab Levothyroxine Sodium (Synthroid) 88 mcg PO DAILYBB [facility] Stop: 09/07/18 06:29 Last Admin: 08/09/18 06:08 Dose: 88 mcg Losartan Potassium (Cozaar) 50 mg PO DAILY [facility] Stop: 09/07/18 08:59 Last Admin: 08/09/18 08:18 Dose: 50 mg Metoprolol Succinate (Toprol Xl) 50 mg PO DAILY [facility] Stop: 09/07/18 08:59 Last Admin: 08/09/18 08:18 Dose: 50 mg Miscellaneous (Order Awaiting Action) 1 ea N/A QS [facility] Stop: 09/07/18 07:59 Last Admin: 08/09/18 08:17 Dose: Not Given Multivitamins (Multivitamin Tab) 1 tab PO DAILY [facility] Stop: 09/07/18 08:59 Last Admin: 08/09/18 08:18 Dose: 1 tab Nitroglycerin (Nitrostat) 0.4 mg SL UD PRN PRN Reason: Chest Pain Stop: 09/07/18 02:03 Ondansetron HCl (Zofran) 4 mg IV Q6H PRN PRN Reason: Nausea Stop: 09/07/18 02:03 Last Admin: 08/08/18 03:20 Dose: 4 mg Oxycodone/Acetaminophen (Percocet 5mg/325mg) 1 tab PO Q6H PRN PRN Reason: Pain Stop: 08/22/18 04:54 Last Admin: 08/09/18 12:20 Dose: 1 tab Pantoprazole Sodium (Protonix) 40 mg PO DAILYBB [facility] Stop: 09/07/18 06:29 Last Admin: 08/09/18 06:08 Dose: 40 mg Propafenone HCl (Rythmol) 150 mg PO Q8 [facility] Stop: 09/07/18 05:59 Last Admin: 08/09/18 13:26 Dose: 150 mg Ranitidine HCl (Zantac) 150 mg PO BID [facility] Stop: 09/07/18 08:59 Last Admin: 08/09/18 08:17 Dose: 150 mg Roflumilast (Daliresp) 500 mcg PO DAILY [facility] Stop: 09/07/18 08:59 Last Admin: 08/09/18 08:17 Dose: 500 mcg Sertraline HCl (Zoloft) 25 mg PO DAILY [facility] Stop: 09/07/18 08:59 Last Admin: 08/09/18 08:17 Dose: 25 mg Tramadol HCl (Ultram) 50 mg PO Q8 PRN PRN Reason: Pain Stop: 09/07/18 02:03 Last Admin: 08/08/18 02:54 Dose: 50 mg Triamcinolone Acetonide (Kenalog 0.1%) 1 appln TOP BID PRN PRN Reason: Itching Stop: 09/07/18 02:03 Vitamin D (Vitamin D3) 2,000 units PO QAM [facility] Stop: 09/07/18 08:59 Last Admin: 08/09/18 08:18 Dose: 2,000 units
[2018-08-09] MEDS: ATORVASTATIN 20 MG TAB PO SCH (20:52)
[2018-08-10] MEDS: OXYCODONE/ACETAMINOPHEN 5mg/325mg TAB PO PRN (02:02)
[2018-08-10] MEDS: HEPARIN SOD 5,000 UNIT/0.5 ML VIAL SQ SCH ×2 (05:51→13:25)
[2018-08-10] MEDS: PANTOprazole 40 MG TAB PO SCH (05:53)
[2018-08-10] MEDS: PROPAFENONE HCL 150 MG TABLET PO SCH ×2 (05:53→13:23)
[2018-08-10] MEDS: LEVOTHYROXINE SODIUM 88 MCG TABLET PO SCH (05:54)
[2018-08-10] MEDS: LOSARTAN POTASSIUM 50 MG TAB PO SCH (08:22)
[2018-08-10] MEDS: MULTIVITAMIN TAB PO SCH (08:23)
[2018-08-10] MEDS: METOPROLOL SUCC 50MG EXT REL TAB PO SCH (08:23)
[2018-08-10] MEDS: LACTOBACILLUS ACIDOPHILUS (FLORANEX) TAB PO SCH ×2 (08:23→12:15)
[2018-08-10] MEDS: DOXYCYCLINE HYCLATE 100 MG CAP PO SCH (08:24)
[2018-08-10] MEDS: ASPIRIN 81 MG ECTAB PO SCH (08:24)
[2018-08-10] MEDS: GABAPENTIN 600 MG TAB PO SCH ×2 (08:24→13:23)
[2018-08-10] MEDS: CHOLECALCIFEROL 1,000 UNITS TAB PO SCH (08:24)
[2018-08-10] MEDS: ALLOPURINOL 300 MG TAB PO SCH (08:24)
[2018-08-10] MEDS: ROFLUMILAST 500 MCG TAB PO SCH (08:25)
[2018-08-10] MEDS: SERTRALINE HCL 50 MG TABLET PO SCH (08:25)
[2018-08-10] MEDS ORDERED: predniSONE 20 MG TAB PO SCH (09:00)
--- NOTE | 2018-08-10 13:13 | Hospitalist Progress Note ---
Date of Service August 10, 2018 Assessment & Plan (1) COPD exacerbation: Chronic respiratory failure-Oxygen dependency CXR: Cardiomegaly. No other convincing evidence of acute cardiopulmonary disease. Continue Doxycycline IV solu medrol transitioned to Prednisone Continue bronchodilators PT/OT Needs follow up with Pulmnology as outpatient (2) SALBADOR (acute kidney injury): H/O CKD IV SALBADOR resolved Cr: 2.1 >>1.23 Received IV fluids (3) CHF (congestive heart failure): H/O chronic right-sided heart failure with preserved EF No signs of acute volume overload Monitor (4) HTN (hypertension): BP Stable Continue current medications (5) CKD (chronic kidney disease), stage IV: As above H/O Paroxysmal atrial fibrillation Hyperlipidemia Iron deficiency anemia Depression and GERD Stable Cotinue home meds DVT Px: SQ heparin Disposition Plan to discharge home today Subjective Patient is seen and examined at bedside Doing well today Reports chronic cough Feels much better today Denies any chest pain, dyspnea, dizziness No other complaints Physical Exam 2 Vital Signs (Past 24 Hours): Last Vital Signs Temp 36.8 C 08/10/18 12:18 Pulse 84 08/10/18 12:18 Resp 20 08/10/18 12:18 BP 148/72 H 08/10/18 12:18 Pulse Ox 99 08/10/18 12:18 Physical Exam: Physical Exam: Vitals signs as noted above General Appearance:Moderately built and nourished, no apparent distress Head: normocephalic, Atraumatic Eyes: normal inspection, EOMI Neck: supple, Trachea midline Respiratory/Chest: Decreased breath sounds, minimal scattered wheezes Cardiovascular: S1, S2, No murmur Abdomen/GI:Soft, Non tender, Bowel sounds present Extremities/Musculoskelatal:normal inspection, Trace pedal edema Neurologic/Psych:AAOX3, grossly no focal neurological deficits Skin: normal color, warm
--- NOTE | 2018-08-10 13:21 | Discharge Summary ---
Date of Service August 10, 2018 Admission HPI Per Admitting Provider CHIEF COMPLAINT: Shortness of breath. HISTORY OF PRESENT ILLNESS: This is a 68-year-old female with past medical history significant for hyperlipidemia, hypothyroidism, chronic respiratory failure, on 4 liters oxygen all the time, chronic obstructive pulmonary disease, atrial fibrillation, hypertension, right-sided heart failure, gastroesophageal reflux disease, obesity, chronic kidney disease stage III, iron deficiency anemia, depression and anxiety who presents with shortness of breath going on for last 2 weeks, but got progressively worse, coughing up yellow greenish phlegm. Denies any fever, but feeling chills, has some headache. Sometime, in the morning, she wakes up with headaches. Denies any runny nose. No sore throat. Appetite is okay. Sleeping is okay, has some left-sided chest pain, left shoulder pain, requesting pain medication. No nausea. No vomiting. No abdominal pain. Normal bowel and bladder movements. Lives with her daughter, ambulates with a cane and walker at home. Currently hemodynamically stable. Admission Exam Per Admitting Provider PHYSICAL EXAMINATION: GENERAL: The patient is obese, not in acute distress. VITAL SIGNS: Temperature 36.8, pulse 65, respiratory rate 18, blood pressure 116/72 and oxygen 100% on room air. HEENT: No pallor. No icterus. Pupils are equal and round react to light. NECK: No JVD. No neck masses. No carotid bruits. CARDIOVASCULAR: S1, S2 heard. Regular rate and rhythm. No murmur. No gallop. RESPIRATORY SYSTEM: Normal AP diameter. Mild occasional wheezing. No crackles. ABDOMEN: Soft. Bowel sounds are present. Nontender. No distention. CENTRAL NERVOUS SYSTEM: Cranial nerves II through XII are grossly intact. Nonfocal. EXTREMITIES: Trace pedal edema. No erythema seen. Principal Diagnosis Discharge Information Discharge Diagnosis Acute COPD exacerbation SALBADOR Discharge Goals Decrease discomfort,Improve function,Improve disease control Discharge Activity Limitations Resume your previous activity Discharge Data Allergies Allergy/AdvReac Type Severity Reaction Status Date / Time adhesive Allergy Severe RED RASH Verified 08/07/18 21:39 latex AdvReac Mild TAPE-SORE Verified 08/07/18 21:39 morphine AdvReac Mild DELUSIONS Verified 08/07/18 21:39 Consultations 08/07/18 22:09 ED Decision to Admit Stat 08/08/18 02:04 Consult Case Management - Discharge Planning Routine Procedures Performed CXR: Cardiomegaly. No other convincing evidence of acute cardiopulmonary disease. Hospital Course (1) COPD exacerbation: Chronic respiratory failure-Oxygen dependency CXR: Cardiomegaly. No other convincing evidence of acute cardiopulmonary disease. Continue Doxycycline IV solu medrol transitioned to Prednisone Continue bronchodilators PT/OT Needs follow up with Pulmnology as outpatient (2) SALBADOR (acute kidney injury): H/O CKD IV SALBADOR resolved Cr: 2.1 >>1.23 Received IV fluids (3) CHF (congestive heart failure): H/O chronic right-sided heart failure with preserved EF No signs of acute volume overload Monitor (4) HTN (hypertension): BP Stable Continue current medications (5) CKD (chronic kidney disease), stage IV: As above H/O Paroxysmal atrial fibrillation Hyperlipidemia Iron deficiency anemia Depression and GERD Stable Cotinue home meds DVT Px: SQ heparin Disposition Plan to discharge home today Total Time Total Time Spent Total Time Spent (In Minutes): 39 minutes Total Time Includes: Examination of the Patient, Discharge Planning, Medication Reconciliation and Other Discharge Plan Discharge Items Patient Disposition: Home - Self-Care Reason For Visit: SOB Discharge Diagnosis: Acute COPD exacerbation SALBADOR Discharge Goals: Decrease discomfort, Improve disease control and Improve function Activity: Resume your previous activity Exercise/Sports: Gradually increase as tolerated Non-emergency contact: Primary Care Provider and Fuel Attendant Call non-emergency contact if: you have any medication questions, your symptoms worsen, your pain is not controlled, your pain is worsening, your pain is unusual for you, your pain is concerning for you, you have a fever and your temperature is above 100.5 Diet: Heart Healthy Addtl Provider Instructions: Follow up with your PCP on Aug 16, 2018 at 11:05AM Follow up with your Pulmnologist in 1-2 weeks Complete the prednisone and antibiotic course as prescribed Seek immediate medical attention if your symptoms reoccur or worsen Prednisone Course: Start taking Prendisone 30mg daily for 3 days, then 20mg daily for 3 days, then 10mg daily for 3 days and further recommendations as per your Pulmnologist Prescriptions: New doxycycline hyclate 100 mg Capsule 100 mg PO BID 5 Days Qty: 10 RF: 0 prednisone 10 mg tablet 10 mg PO UD Qty: 18 RF: 0 Continue fluticasone-vilanterol [Breo Ellipta] 200-25 mcg/dose Blister With Device 1 inh INHALATION DAILY RF: 0 multivitamin Tablet 1 tab PO DAILY RF: 0 losartan 50 mg Tablet 50 mg PO DAILY RF: 0 metolazone 2.5 mg Tablet 2.5 mg PO 2XWK RF: 0 propafenone 150 mg Tablet 150 mg PO Q8H RF: 0 prednisone 10 mg Tablet 10 mg PO QAM RF: 0 gabapentin 600 mg Tablet 600 mg PO TID RF: 0 atorvastatin 20 mg Tablet 20 mg PO QPM RF: 0 metoprolol succinate 50 mg Tablet Extended Release 24 Hr 50 mg PO DAILY RF: 0 aspirin [Aspir-81] 81 mg Tablet,Delayed Release (Dr/Ec) 81 mg PO DAILY RF: 0 tramadol 50 mg Tablet 50 mg PO Q8 PRN (Reason: Pain) RF: 0 triamcinolone acetonide 0.1 % Cream 1 applic TOPICAL BID PRN (Reason: Skin Irritation) RF: 0 levothyroxine 88 mcg Tablet 88 mcg PO DAILYBB RF: 0 ranitidine HCl 150 mg Tablet 150 mg PO BID RF: 0 sertraline [Zoloft] 25 mg Tablet 25 mg PO DAILY RF: 0 omeprazole 20 mg Capsule,Delayed Release(Dr/Ec) 20 mg PO DAILYBB RF: 0 bumetanide 1 mg Tablet 1 mg PO BID RF: 0 allopurinol 300 mg Tablet 300 mg PO DAILY RF: 0 cholecalciferol (vitamin D3) [Vitamin D3] 2,000 unit Tablet 2,000 unit PO QAM RF: 0 Lactobacillus acidoph-L.bulgar [Lactinex] 1 million cell Tablet,Chewable 1 tab PO TIDM RF: 0 roflumilast [Daliresp] 500 mcg Tablet 500 mcg PO DAILY RF: 0 potassium chloride 20 mEq Tablet Extended Release 20 meq PO Q OTHER DAY RF: 0 meloxicam [Mobic] 15 mg Tablet 15 mg PO DAILY RF: 0 acetaminophen [Tylenol] 325 mg Capsule 650 mg PO Q4 PRN (Reason: Fever Or Pain) RF: 0 albuterol sulfate 2.5 mg /3 mL (0.083 %) Solution For Nebulization 2.5 mg INHALATION Q6 PRN (Reason: Shortness Of Breath Or Wheezing) RF: 0 Stand-Alone Forms: [facility] Discharge Orders: Discharge Order (Routine); Ordered 08/10/18 Ordered By: Bautista Casper Admission Data Admit Date/Time: 08/07/18 22:51 Attending Provider: Bautista Casper Admit Provider: Manjit Frias Primary Care Provider: Babak Melendez Other Providers: Manjit Frias ; Ruth Thomas Service: Telemetry Medical Other Interventions: Discharge Summary Assessment (RN) Last Done: 08/10/18 12:18 Pending Studies at Discharge: No DC Date/Time DO NOT enter until pt leaves facility: 08/10/18 14:11
== END 2018-08-10 14:11 | disposition home or self-care (01) | DRG 191 ==
LOC: ED 20:04 → SUATTDRO 22:51 → 2W 08-08 00:01

== ENCOUNTER 2018-11-28 09:03 | Inpatient (IN) ==
[2018-11-28] MEDS ORDERED: ONDANSETRON INJ 2 MG/ML 2 ML VIAL IV STA (10:31)
[2018-11-28] MEDS ORDERED: SODIUM CHLORIDE 0.9% 1000ML 500 ML IV ONE (10:31)
[2018-11-28] MEDS ORDERED: ACETAMINOPHEN 1,000 MG/100 ML VIAL IV STA (10:31)
[2018-11-28] MEDS ORDERED: ALBUT/IPRATROP 3MG/0.5MG NEB 3 ML VIAL NEB STA (10:31)
[2018-11-28 10:36] LABS: Basophils # (auto) 0.02 K/uL (0-0.2); Basophils % (auto) 0.1 %; Eosinophils # (auto) 0.31 K/uL (0-0.5); Eosinophils % (auto) 1.9 %; Hematocrit (blood only) 31.1 % (37-47); Hemoglobin 9.3 g/dL (12.0-16.0); Immature Granulocytes # (auto) 0.06 K/uL (0.00-0.02); Immature Granulocytes % (auto) 0.4 %; Lymphocytes # (auto) 0.86 K/uL (1.2-3.4); Lymphocytes % (auto) 5.3 %; Mean Corpuscular Hgb Conc 29.9 g/dL (32-36); Mean Corpuscular Volume 101.3 fL (80-100); Mean Platelet Volume 9.2 fL (7.4-10.4); Monocytes # (auto) 0.51 K/uL (0.11-0.59); Monocytes % (auto) 3.1 %; Neutrophils # (auto) 14.62 K/uL (1.4-6.5); Neutrophils % (auto) 89.2 %; Platelet Count 146 K/uL (130-400); RDW Coefficient of Variation 14.7 % (11.5-14.5); RDW Standard Deviation 54.4 fL (36.4-46.3); Red Blood Count 3.07 M/uL (4.2-5.4); White Blood Count 16.38 K/uL (4.8-10.8)
[2018-11-28 10:38] LABS: INR 1.1 (0.9-1.1); Partial Thromboplastin Ratio 0.8; Partial Thromboplastin Time 22.8 Seconds (21.0-31.0)
[2018-11-28 10:58] LABS: Alanine Aminotransferase 10 U/L (12-78); Albumin Globulin Ratio 0.7 (0.9-2); Alkaline Phosphatase 85 U/L (45-117); Aspartate Aminotransferase 8 U/L (15-37); BUN Creatinine Ratio 21.2 (10-20); Bilirubin,Total 0.4 mg/dl (0.2-1); Blood Urea Nitrogen 27 mg/dl (7-18); Calcium 9.7 mg/dl (8.5-10.1); Carbon Dioxide 42 mmol/L (21-32); Chloride 96 mmol/L (98-107); Creatinine Clr Calc Pharmacy 49.6 ml/min; Est GFR (African American) 50.5; Est GFR (Non-African American) 43.5; Globulin 4.4 gm/dl (2.5-4.0); Glucose 117 mg/dl (70-99); Potassium 4.3 mmol/L (3.5-5.1); Sodium 138 mmol/L (136-145); Total Protein 7.4 gm/dl (6.4-8.2); Troponin I < 0.015 ng/ml (0-0.045)
[2018-11-28] MEDS ORDERED: MAGNESIUM SULFATE / D5W 1 GM/100 ML BAG IV ONE (11:43)
[2018-11-28] MEDS ORDERED: ACETAMINOPHEN 1000 MG/100 ML IV IV ONE (11:44)
[2018-11-28] MEDS ORDERED: ONDANSETRON INJ 2 MG/ML 2 ML VIAL ONE (11:44)
[2018-11-28] MEDS ORDERED: cefTRIAXone SODIUM 2,000 MG in DEXTROSE 5% 50 ML IV STA (11:46)
--- OUTSIDE RECORDS SUMMARY | 2018-11-28 11:50 | External Medical Summary | Continuity of Care Document ---
:1950 Author Name Lincoln Cobb, Provider Address Unavailable Unavailable , Care Team Providers Name Role Phone Noble Cobb, Charlie Unavailable [email or web address] Duc Hernandez PA-C Unavailable [email or web address] Arash Cobb, Castillo Elaine Unavailable 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) Atrial fibrillation (427.31) (I48.91) Chronic diastolic congestive heart failure (428.32) (I50.32) Chronic kidney disease (585.9) (N18.9) Cor pulmonale (416.9) (I27.81) Depression (311) (F32.9) Fracture of rib, single, closed (807.01) (S22.39XA) Obesity hypoventilation syndrome (278.03) (E66.2) Cough (786.2) (R05) 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) (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.50XA) Obesity (278.00) (E66.9) Pre-operative cardiovascular examination (V72.81) (Z01.810) Paroxysmal atrial fibrillation (427.31) (I48.0) Hypokalemia (276.8) (E87.6) Coughing Up Thick Yellow-green Sputum (Purulent) (786.4) 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 Refills: 0 Ferrous Sulfate 325 (65 Fe) MG Oral Tablet; Take 1 tab let twice a day REGINALDO Hernandez Start: 28-Jan-2012 Quantity: 60 Refills: 0 Meloxicam 15 MG Oral Tablet; 1 tablet daily Start: 22-Sep-2017 Refills: 0 Propafenone HCl - 150 MG Oral Tablet; TAKE 1 TABLET 3 TIMES DAILY. Start: 22-Sep-2017 Refills: 0 Daliresp 500 MCG Oral Tablet; TAKE 1 TABLET DAILY. Start: 22-Sep-2017 Refills: 0 Sertraline HCl - 25 MG Oral Tablet; TAKE 1 TABLET DAILY. Start: 22-Sep-2017 Refills: 0 30 Tablet Bottle Breo Ellipta 200-25 MCG/INH Inhalation A erosol Powder Breath Activated; TAKE 1 PUFF BY MOUTH EVERY DAY Reza Dickey Start: 31-Oct-2018 Quantity: 1 28 Inhaler Pack Refills: 5 Multivitamin Adult Oral Tablet; TAKE 1 TABLET DAILY. Start: 22-Sep-2017 Refills: 0 Metoprolol Succinate ER 50 MG Oral Table t Extended Release 24 Hour; TAKE 1 TABLET DAILY. Start: 22-Sep-2017 Refills: 0 100 Tablet Bottle metOLazone 2.5 MG Oral Tablet; 1 tablet Wednesday and Wednesday Start: 22-Sep-2017 Refills: 0 Losartan Potassium 50 MG Oral Tablet; TAKE 1 TABLET DAILY. Start: 22-Sep-2017 Refills: 0 30 Tablet Bottle Gabapentin 600 MG Oral Tablet; 1 tablet in AM, 2 tablets at HS Start: 22-Sep-2017 Refills: 0 D3 High Potency 2000 UNIT Oral Capsule S tart: 22-Sep-2017 Refills: 0 Atorvastatin Calcium 20 MG Oral Tablet; TAKE 1 TABLET DAILY. Start: 22-Sep-2017 Quantity: 90 Refills: 0 Bumetanide 1 MG Oral Tablet; TAKE 1 TABLET TWICE DAILY. Start: 22-Sep-2017 Refills: 0 Allopurinol 300 MG Oral Tablet; TAKE 1 TABLET DAILY. Start: 22-Sep-2017 Refills: 0 Ventolin HFA 108 (90 Base) MCG/ACT Inhal ation Aerosol Solution; USE 2 PUFFS EVERY 6 HOURS DIRECTED. Start: 22-Sep-2017 Refills: 0 8 GM Inhaler Albuterol Sulfate (2.5 MG/3ML) 0.083% In halation Nebulization Solution; INHALE CONTENTS OF 1 VIAL (3ML) VIA NEBULIZER EVERY 4 TO 6 HOURS NEEDED DANIELE Hernandez Start: 02-Feb-2012 Quantity: 180 Refills: 0 Aspirin 81 MG TABS; TAKE 1 TABLET DAILY. Refills: 0 Potassium Chloride Grace ER 20 MEQ Oral T ablet Extended Release; TAKE 1 TABLET Every other day Reza Antoine Start: 31-May-2012 Refills: 5 ProAir HFA 108 (90 Base) MCG/ACT Inhalat ion Aerosol Solution; INHALE 2 PUFFS EVERY 4 HOURS NEEDED Reza Dickey Start: 18-Nov-2017 Quantity: 1 8.5 GM Inhaler Refills: 5 Procedures History of Appendectomy Status: Complete d History of Cholecystectomy With Common Bile Duct Exploration Status: Completed History of Oophorectomy Status: Complete d History of Rotator Cuff Repair Status: C ompleted History of Hip Surgery Right Status: Com pleted Immunizations Influenza On: Apr-2012 Pneumococcal polysaccharide vaccine, 23 valent On: Apr-2012 Social History - Smoking Status Former smoker Plan of Treatment Planned Observations Planned Goals not documented Results No Known Results Results not documented Encounters Appointment; Charlie Dickey M.D. 17-May-2018 13:45 Encounter Diagnosis: Problem not documented Appointment; Charlie Dickey M.D. 24-Jan-2018 13:45 Encounter Diagnosis: Problem not documented Appointment; Charlie Dickey M.D. 18-Nov-2017 15:45 Encounter Diagnosis: Problem not documented Appointment; Brittney Muhammad CRNP 02-Sep-2017 13:50 Encounter Diagnosis: Problem not documented Appointment; Sonam Harrison PA-C 26-May-2017 14:30 Encounter Diagnosis: Problem not documented Appointment; Sonam Harrison PA-C 14-Jan-2017 16:00 Encounter Diagnosis: Problem not documented
--- NOTE | 2018-11-28 11:56 | XRay Report ---
XR chest 1V portable CLINICAL HISTORY: SOB dyspnea COMPARISON STUDY: 08/07/2017 FINDINGS: Mild stable cardiomegaly. Pleural thickening lateral aspect right chest combine with overla pping tubing material. Prominent pulmonary vasculature. IMPRESSION: Early congestive heart failure. The above report was generated using voice recognition software. It may contain grammatical, syntax or spelling errors. Electronically signed by: Jerad Patel M.D. 11/28/2018 11:55 AM
--- NOTE | 2018-11-28 13:33 | Communication Note ---
Date of Service: November 28, 2018 68 yo F who is morbidly obese with increasing SOB for the last 4 days. She is on 4L via nasal canula chronically. She denies any chest pain or abdominal pa in. She initially reports some nausea, vomiting and diarrhea but with further questioning reports that this is every other day, and then states these symptoms are rare. She does not appear to be in distress. She reports that her daughter is ill with GI symptoms, but otherwise denies any sick contacts. She appears euvolemic on exam and mucous membranes are moist. She reports tolerating PO. Agree with FILTRATION OPERATOR plan for solumedrol, scheduled bronchodilators, and continued ceftriaxone. Flu negative. PE possible, but there is no acute respiratory failure, tachypnea, or increased oxygen needs and she has diffuse wheezing that is severe making COPD exacerbation more likely. Monitor for clinical response to current treatment overnight. Physical exam reveals morbid obesity, normal oropharynx with moist mucous membranes and no LAD, S1/2 heard and there are no murmurs present, no or pitting edema is present, abdomen is morbidly obese, soft, nontender, nondistended. Admit to floor and monitor overnight. DO Seth
[2018-11-28] MEDS: ALBUT/IPRATROP 3MG/0.5MG NEB 3 ML VIAL NEB SCH ×2 (15:12→19:34)
--- NOTE | 2018-11-28 15:15 | Emergency Department Note ---
Entered by Yoon Madden acting as a scribe for Juan J Escobar MD History of Present Illness General Chief complaint: Shortness of Breath/Dyspnea Time Seen by Provider: 11/28/18 10:29 Source: patient History of Present Illness Provider complaint: flu-like symptoms Onset (ago): day(s) 4 Location: left and right Quality: + other (flu-like symptoms) Associated symptoms: + cough, + nausea/vomiting, + shortness of breath and + weakness; no fever/chills Treatments prior to arrival: other (Duoneb, Solu-Medrol ) The patient is a 68 year old female who presents to the Emergency Department with complaints of flu-like symptoms for the last 4 days. She reports having a productive cough, weakness, shortness of breath, vomiting, and generalized aches. She denies being febrile. The patient states that she wears 4L of Oxygen 24/7. She states that she uses nebulizer treatments at home. The patient states that she is not currently on any steroids. The patient states that she has not been hospitalized in about 3 months for lung problems. The patient reports that she has been able to take her regular medications. She states that she lives with her daughter who called the ambulance today as the patient's symptoms worsened. The patient states that she has sleep apnea but has been unable to use her machine for the last 4 days secondary to congestion. Review of notes show that the patient has had flu-like symptoms for 4 days. She was given a duoneb and 125 Solu-Medrol en route. Home Medications Home Medications Medication Instructions Recorded Confirmed Type Breo Ellipta 1 inh INHALATION DAILY 03/12/18 11/28/18 History Daliresp 500 mcg PO DAILY 03/12/18 11/28/18 History Lactinex 1 tab PO TIDM 03/12/18 11/28/18 History allopurinol 300 mg PO DAILY 03/12/18 11/28/18 History aspirin [Aspir-81] 81 mg PO DAILY 03/12/18 11/28/18 History atorvastatin 20 mg PO QPM 03/12/18 11/28/18 History bumetanide 1 mg PO BID 03/12/18 11/28/18 History cholecalciferol (vitamin D3) 2,000 unit PO QAM 03/12/18 11/28/18 History [Vitamin D3] gabapentin 600 mg PO TID 03/12/18 11/28/18 History levothyroxine 88 mcg PO DAILYBB 03/12/18 11/28/18 History losartan 50 mg PO DAILY 03/12/18 11/28/18 History metolazone 2.5 mg PO MOFR 03/12/18 11/28/18 History metoprolol succinate 50 mg PO DAILY 03/12/18 11/28/18 History multivitamin 1 tab PO DAILY 03/12/18 11/28/18 History omeprazole 20 mg PO DAILYBB 03/12/18 11/28/18 History potassium chloride 20 meq PO Q OTHER DAY 03/12/18 11/28/18 History prednisone 10 mg PO QAM 03/12/18 11/28/18 History propafenone 150 mg PO Q8H 03/12/18 11/28/18 History ranitidine HCl 150 mg PO BID 03/12/18 11/28/18 History sertraline [Zoloft] 25 mg PO DAILY 03/12/18 11/28/18 History triamcinolone acetonide 1 applic TOPICAL BID PRN 03/12/18 11/28/18 History acetaminophen [Tylenol] 650 mg PO Q4 PRN 08/07/18 11/28/18 History albuterol sulfate 2.5 mg INHALATION Q6 PRN 08/07/18 11/28/18 History meloxicam [Mobic] 15 mg PO DAILY 08/07/18 11/28/18 History Allergies Allergy/AdvReac Type Severity Reaction Status Date / Time adhesive Allergy Severe RED RASH Verified 11/28/18 11:32 latex AdvReac Mild TAPE-SORE Verified 11/28/18 11:32 morphine AdvReac Mild DELUSIONS Verified 11/28/18 11:32 Past Med/Surg History Medical History Chronic anemia (Chronic) Diastolic CHF, chronic (Chronic) GERD (gastroesophageal reflux disease) (Chronic) Depression (Chronic) Myocardial infarction (Chronic) "per patient, details unknown" COPD (chronic obstructive pulmonary disease) (Chronic) Paroxysmal a-fib (Chronic) HTN (hypertension) (Chronic) Dyslipidemia (Chronic) EVONNE (iron deficiency anemia) (Chronic) CKD (chronic kidney disease), stage IV (Chronic) Asthma (Chronic) Lumbar spinal stenosis (Chronic) Morbid obesity (Chronic) Obesity hypoventilation syndrome (Chronic) Chronic respiratory failure (Chronic) Surgical History S/P cervical spinal fusion (Chronic) History of appendectomy (Chronic) Hx of cholecystectomy (Chronic) S/P wrist surgery (Chronic) 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 and A total of 10 systems reviewed and were otherwise negative Physical Exam Vital Signs Vital Signs - 24 hr 11/28/18 09:12 11/28/18 10:18 11/28/18 11:20 Temperature 37.2 C Temperature Source Oral Sepsis Recent Fever Within 48 Hours No Sepsis New/Unexplained Change in Mental Status No Sepsis Action Taken by Nursing No Action Required Pulse Rate 77 Pulse Rate [Right Radial] 74 Respiratory Rate 20 18 Respiratory Effort / Characteristics Labored Non-Labored Spontaneous Respiratory Depth Respiratory Pattern Regular Blood Pressure 141/56 H Blood Pressure [Left Arm] Blood Pressure Mean 84 Blood Pressure Mean [Left Arm] Pulse Oximetry 4 L 98 96 Oxygen Delivery Method Nasal Cannula Nasal Cannula Nasal Cannula Oxygen Flow Rate 4 4 4 Fraction of Inspired Oxygen 98 11/28/18 11:42 11/28/18 12:27 11/28/18 12:32 Temperature Temperature Source Sepsis Recent Fever Within 48 Hours Sepsis New/Unexplained Change in Mental Status Sepsis Action Taken by Nursing Pulse Rate Pulse Rate [Right Radial] 76 80 Respiratory Rate 20 20 Respiratory Effort / Characteristics Non-Labored Short of Breath SOB on Exertion Non-Labored Respiratory Depth Normal Normal Respiratory Pattern Blood Pressure Blood Pressure [Left Arm] 146/65 H 143/95 H Blood Pressure Mean Blood Pressure Mean [Left Arm] 92 111 Pulse Oximetry 98 95 Oxygen Delivery Method Nasal Cannula Nasal Cannula Nasal Cannula Oxygen Flow Rate 4 4 4 Fraction of Inspired Oxygen GENERAL: Patient is in no acute distress. HEENT: No acute trauma, normocephalic atraumatic, mucous membranes moist, no nasal congestion, no scleral icterus. NECK: No stridor, no adenopathy, no meningismus, trachea is midline. LUNGS: Wheezing and rhonchi bilaterally. Diminished breath sounds bilaterally. Breath sounds are equal. HEART: Without murmurs gallops or rubs, regular rate and rhythm. ABDOMEN: Soft, nontender, bowel sounds positive, no hernias, no peritonitis. EXTREMITIES: No cyanosis or edema, full range of motion of all the joints without pain or difficulty, no signs for acute trauma. NEUROLOGIC: Oriented x 3, no acute motor or sensory deficits, no focal weakness. SKIN: No rash, no jaundice, no diaphoresis. Course 1030: The patient was evaluated in room A12B. A history and physical were per formed. 1205: I discussed the patient's case with Kayd Smith who will evaluate the patient for further management. 1216: I updated the patient who verbalized agreement and understanding of the treatment plan. Consultations Consultation #1: Kady Smith Time: 12:05 Administered Medications Albuterol (Duoneb) 3 ml NEB QIDR [facility] Stop: 12/28/18 15:59 Last Admin: 11/28/18 15:12 Dose: 3 ml Documented by: [id number] Bumetanide (Bumex) 1 mg PO BID17 [facility] Stop: 12/28/18 16:59 Last Admin: 11/28/18 16:31 Dose: 1 mg Documented by: [id number] Gabapentin (Neurontin) 600 mg PO TID [facility] Stop: 12/28/18 14:29 Last Admin: 11/28/18 16:30 Dose: 600 mg Documented by: [id number] Heparin Sodium (Porcine) (Heparin Sodium (Porcine)) 5,000 units SQ Q8 [facility] Stop: 12/28/18 13:59 Last Admin: 11/28/18 16:32 Dose: 5,000 units Documented by: [id number] Cosigned by: [id number] Lactobacillus Acidophilus (Floranex) 1 tab PO TIDM [facility]; Protocol Stop: 12/28/18 16:59 Last Admin: 11/28/18 16:31 Dose: 1 tab Documented by: [id number] Metolazone (Zaroxolyn) 2.5 mg PO MoFr@0900 [facility] Stop: 12/28/18 14:44 Last Admin: 11/28/18 16:30 Dose: 2.5 mg Documented by: [id number] Miscellaneous (Order Awaiting Action) 1 ea N/A QS [facility] Stop: 12/28/18 15:59 Last Admin: 11/28/18 16:32 Dose: Not Given Documented by: [id number] Propafenone HCl (Rythmol) 150 mg PO Q8H [facility] Stop: 12/28/18 14:29 Last Admin: 11/28/18 16:29 Dose: 150 mg Documented by: [id number] Discontinued Medications Acetaminophen (Ofirmev) Confirm Administered Dose 1,000 mg IV .STK-MED ONE Stop: 11/28/18 11:45 Last Admin: 11/28/18 13:59 Dose: Not Given Documented by: [id number] Albuterol (Duoneb) 3 ml NEB NOW STA Stop: 11/28/18 10:32 Last Admin: 11/28/18 11:18 Dose: 3 ml Documented by: [id number] Sodium Chloride (Nss 1000ml) 500 mls @ 999 mls/hr IV .Q31M ONE Stop: 11/28/18 11:01 Last Infusion: 11/28/18 12:31 Dose: 0 mls/hr Documented by: [id number] Admin: 11/28/18 11:47 Dose: 999 mls/hr Documented by: [id number] Acetaminophen (Ofirmev) 1,000 mg in 100 mls @ 400 mls/hr IV NOW STA Stop: 11/28/18 10:45 Last Infusion: 11/28/18 12:03 Dose: 0 mls/hr Documented by: [id number] Admin: 11/28/18 11:47 Dose: 400 mls/hr Documented by: [id number] Magnesium Sulfate/Dextrose (Magnesium Sulfate / D5w) 1 gm in 100 mls @ 100 mls/hr IV ONE ONE Stop: 11/28/18 12:42 Last Infusion: 11/28/18 13:11 Dose: 0 mls/hr Documented by: [id number] Admin: 11/28/18 11:56 Dose: 100 mls/hr Documented by: [id number] Ceftriaxone Sodium 2,000 mg/ (Dextrose) 70 mls @ 100 mls/hr IV NOW STA Stop: 11/28/18 12:27 Last Infusion: 11/28/18 13:10 Dose: 0 mls/hr Documented by: [id number] Infusion: 11/28/18 13:10 Dose: 0 mls/hr Documented by: [id number] Admin: 11/28/18 12:31 Dose: 100 mls/hr Documented by: [id number] Ondansetron HCl (Zofran) 4 mg IV NOW STA Stop: 11/28/18 10:32 Last Admin: 11/28/18 11:47 Dose: 4 mg Documented by: [id number] Ondansetron HCl (Zofran) Confirm Administered Dose 4 mg .ROUTE .STK-MED ONE Stop: 11/28/18 11:45 Last Admin: 11/28/18 12:33 Dose: Not Given Documented by: [id number] Medical Decision Making Differential Diagnosis Differentials include influenza or flu-like illness, pneumonia or bronchitis, exacerbation of COPD, anemia, SD, dysrhythmia, and electrolyte imbalance. Medical Records Attestation: I reviewed the patient's medical records. Home Medications Current Medication List: was personally reviewed by me Laboratory Data Attestation: I reviewed the patient's lab results. Result diagrams: 11/28/18 10:14 11/28/18 10:14 Lab Results 11/28/18 11/28/18 11/28/18 Range/Units 10:10 10:14 10:14 WBC 16.38 H (4.8-10.8) K/uL RBC 3.07 L (4.2-5.4) M/uL Hgb 9.3 L (12.0-16.0) g/dL Hct 31.1 L (37-47) % MCV 101.3 H (80-100) fL MCH 30.3 (25-34) pg MCHC 29.9 L (32-36) g/dL RDW Std Deviation 54.4 H (36.4-46.3) fL RDW Coeff of Arabella 14.7 H (11.5-14.5) % Plt Count 146 (130-400) K/uL MPV 9.2 (7.4-10.4) fL Immature Gran % (Auto) 0.4 % Neut % (Auto) 89.2 % Lymph % (Auto) 5.3 % [place] % (Auto) 3.1 % Eos % (Auto) 1.9 % Baso % (Auto) 0.1 % Immature Gran # (Auto) 0.06 H (0.00-0.02) K/uL Neut # (Auto) 14.62 H (1.4-6.5) K/uL Lymph # (Auto) 0.86 L (1.2-3.4) K/uL [place] # (Auto) 0.51 (0.11-0.59) K/uL Eos # (Auto) 0.31 (0-0.5) K/uL Baso # (Auto) 0.02 (0-0.2) K/uL PT 11.0 (9.0-12.0) Seconds INR 1.1 (0.9-1.1) APTT 22.8 (21.0-31.0) Seconds PTT Ratio 0.8 Sodium (136-145) mmol/L Potassium (3.5-5.1) mmol/L Chloride (98-107) mmol/L Carbon Dioxide (21-32) mmol/L Anion Gap (3-11) BUN (7-18) mg/dl Creatinine (0.6-1.2) mg/dl Est Cr Clr Drug Dosing ml/min Est GFR ( Amer) Est GFR (Non-Af Amer) BUN/Creatinine Ratio (10-20) Glucose (70-99) mg/dl Calcium (8.5-10.1) mg/dl Magnesium (1.8-2.4) mg/dl Total Bilirubin (0.2-1) mg/dl AST (15-37) U/L ALT (12-78) U/L Alkaline Phosphatase (45-117) U/L Troponin I (0-0.045) ng/ml Total Protein (6.4-8.2) gm/dl Albumin (3.4-5.0) gm/dl Globulin (2.5-4.0) gm/dl Albumin/Globulin Ratio (0.9-2) Influenza Type A Ag Neg for Influ A (Neg) Influenza Type B Ag Neg for Influ B (Neg) 11/28/18 11/28/18 Range/Units 10:14 10:14 WBC (4.8-10.8) K/uL RBC (4.2-5.4) M/uL Hgb (12.0-16.0) g/dL Hct (37-47) % MCV (80-100) fL MCH (25-34) pg MCHC (32-36) g/dL RDW Std Deviation (36.4-46.3) fL RDW Coeff of Arabella (11.5-14.5) % Plt Count (130-400) K/uL MPV (7.4-10.4) fL Immature Gran % (Auto) % Neut % (Auto) % Lymph % (Auto) % [place] % (Auto) % Eos % (Auto) % Baso % (Auto) % Immature Gran # (Auto) (0.00-0.02) K/uL Neut # (Auto) (1.4-6.5) K/uL Lymph # (Auto) (1.2-3.4) K/uL [place] # (Auto) (0.11-0.59) K/uL Eos # (Auto) (0-0.5) K/uL Baso # (Auto) (0-0.2) K/uL PT (9.0-12.0) Seconds INR (0.9-1.1) APTT (21.0-31.0) Seconds PTT Ratio Sodium 138 (136-145) mmol/L Potassium 4.3 (3.5-5.1) mmol/L Chloride 96 L (98-107) mmol/L Carbon Dioxide 42 H* (21-32) mmol/L Anion Gap 1.0 L (3-11) BUN 27 H (7-18) mg/dl Creatinine 1.25 H (0.6-1.2) mg/dl Est Cr Clr Drug Dosing 49.6 ml/min Est GFR ( Amer) 50.5 Est GFR (Non-Af Amer) 43.5 BUN/Creatinine Ratio 21.2 H (10-20) Glucose 117 H (70-99) mg/dl Calcium 9.7 (8.5-10.1) mg/dl Magnesium 1.6 L (1.8-2.4) mg/dl Total Bilirubin 0.4 (0.2-1) mg/dl AST 8 L (15-37) U/L ALT 10 L (12-78) U/L Alkaline Phosphatase 85 (45-117) U/L Troponin I < 0.015 (0-0.045) ng/ml Total Protein 7.4 (6.4-8.2) gm/dl Albumin 3.0 L (3.4-5.0) gm/dl Globulin 4.4 H (2.5-4.0) gm/dl Albumin/Globulin Ratio 0.7 L (0.9-2) Influenza Type A Ag (Neg) Influenza Type B Ag (Neg) Imaging Data Radiologist's Impression: Radiology results as stated below per my review and the radiologist's interpretation: XR chest 1V portable CLINICAL HISTORY: SOB dyspnea COMPARISON STUDY: 08/07/2017 FINDINGS: Mild stable cardiomegaly. Pleural thickening lateral aspect right chest combine with overlapping tubing material. Prominent pulmonary vasculature. IMPRESSION: Early congestive heart failure. The above report was generated using voice recognition software. It may contain grammatical, syntax or spelling errors. Electronically signed by: Jerad Patel M.D. 11/28/2018 11:55 AM ECG Data Attestation: I personally reviewed and interpreted this ECG as follows: Indication: SOB/dyspnea Rate (beats per minute): 77 Rhythm: normal sinus Findings: no PVC and no ST elevation Blood Pressure Blood Pressure Findings: Elevated blood pressure Blood Pressure Disposition: further management by hospitalist [facility] Narrative There is a moderate leukocytosis at 16,000, this is consistent with infection. The patient is anemic but this appears to be baseline looking back at previous testing. There is a normal platelet count. No concerning coagulopathy. Renal panel testing does not show acute renal failure. The CO2 is somewhat elevated but this appears baseline looking back at previous testing. Magnesium is low at 1.6. No worrisome liver enzyme elevation. EKG shows a sinus rhythm, no acute ischemia. Cardiac enzyme testing x1 is not consistent with acute cardiac injury. Influenza testing returned negative. Chest x-ray did not show pneumonia, no pneumothorax. The patient was given IV saline. She received IV ceftriaxone as antibiotic coverage. She received IV magnesium. She was given a DuoNeb. She had already received IV Solu-Medrol prior to arrival. The patient presents with increasing dyspnea, flulike symptoms and weakness. At this point, I believe that she has an acute bronchitis with an exacerbation of her COPD. She is in no condition to be discharged home. I spoke to the patient and case management. The on-call hospitalist was consulted. Impression & Plan Acute bronchitis, COPD exacerbation, SOB (shortness of breath), Leukocytosis, Hypomagnesemia Discharge Plan Visit Data *Final* Discharge Date/Time: 11/28/18 13:30 Chief Complaint: Shortness of Breath/Dyspnea ED Provider: Juan J Escobar Discharge Problem: Acute bronchitis, COPD exacerbation, SOB (shortness of breath), Leukocytosis, Hypomagnesemia Patient Disposition: Admitted As Inpatient Discharge Instructions Interventions: ED Discharge Assessment Last Done: 11/28/18 13:30 The louisibe's documentation has been prepared under my direction and personally reviewed by me in its entirety. I confirm that the note above accurately reflects all work, treatment, procedures, and medical decision making performed by me.
[2018-11-28] MEDS: PROPAFENONE HCL 150 MG TABLET PO SCH ×2 (16:29→21:30)
[2018-11-28] MEDS: GABAPENTIN 600 MG TAB PO SCH ×2 (16:30→21:27)
[2018-11-28] MEDS: metOLazone 2.5 MG TABLET PO SCH (16:30)
[2018-11-28] MEDS: LACTOBACILLUS ACIDOPHILUS (FLORANEX) TAB PO SCH (16:31)
[2018-11-28] MEDS: BUMETANIDE 1 MG TAB PO SCH (16:31)
[2018-11-28] MEDS: HEPARIN SOD 5,000 UNIT/0.5 ML VIAL SQ SCH ×2 (16:32→21:30)
--- NOTE | 2018-11-28 16:41 | History & Physical Report ---
Date of Service November 28, 2018 Assessment & Plan (1) COPD exacerbation: (2) Acute bronchitis: (3) Chronic respiratory failure: -Admit to [facility] -Patient presenting from home with reports of increasing exertional shortness of breath and productive cough for the past 5 days -In the ED, patient is saturating well on her chronic 4 L of oxygen, CXR does not show any infiltrate -WBC 16 K (note the patient is on chronic steroids), CO2 on BMP is 42 (appears to be chronic/near baseline) -Received IV Solu-Medrol for EMS, IV ceftriaxone in the ED -Continue with Solu-Medrol 40 mg IV every 8 hours, IV ceftriaxone -Pulmonary toilet with nebulizers, flutter valve, chest PT -Continue home dose of Daliresp and Breo Ellipta (4) Diarrhea: -Check for C. difficile (5) Diastolic CHF, chronic: -Currently appears euvolemic -if patient's pulmonary status does not improved, could consider some gentle diuresis -For now, continue home doses of metolazone and Bumex (6) HTN (hypertension): -BP controlled, continue losartan, metoprolol, diuretics (7) Paroxysmal a-fib: -Rate controlled on metoprolol and rhythm controlled on propafenone -Not anticoagulated secondary to history of GI bleeding and hematoma (8) CKD (chronic kidney disease), stage IV: - baseline creat runs in the mid 1's - creat noted to be 1.2 today - continue to monitor, avoid nephrotoxic agents when able (9) Chronic anemia: -Stable, Hgb at baseline (10) Depression: -Continue sertraline (11) Dyslipidemia: -Continue statin (12) DVT prophylaxis: -SQ heparin History of Present Illness Chief Complaint: Shortness of breath, cough Primary Care Provider: Babak Melendez MD 68-year-old female who presents the ED with shortness of breath and cough. Patient reports her symptoms began about 5 days ago. She reports worsening exertional shortness of breath. She also has had a cough productive for john/yellow sputum at times. Patient has underlying COPD and chronically wears 4 L of oxygen, she is currently saturating well on 4 L. She reports increasing generalized weakness. She denies fevers and chills. She reports some intermittent nausea with one episode of vomiting. She has been having some diarrhea as well. She denies abdominal pain. No chest pain or palpitations. She reports some mild dizziness however denies lightheadedness, diaphoresis, syncopal events. She denies any urinary symptoms. In the ER, patient remained hemodynamically stable. Labs show WBC 16 K, CO2 42, Mg+ 1.6 and other chronic findings. For EMS, patient received Solu-Medrol 125 mg IV and nebulizer treatment. She was given IVF, IV Zofran, IV magnesium, IV ceftriaxone, nebulizer treatment, IV Tylenol. Allergies Allergy/AdvReac Type Severity Reaction Status Date / Time adhesive Allergy Severe RED RASH Verified 11/28/18 11:32 latex AdvReac Mild TAPE-SORE Verified 11/28/18 11:32 morphine AdvReac Mild DELUSIONS Verified 11/28/18 11:32 Home Medications Home Medications Medication Instructions Recorded Confirmed Type Breo Ellipta 1 inh INHALATION DAILY 03/12/18 11/28/18 History Daliresp 500 mcg PO DAILY 03/12/18 11/28/18 History Lactinex 1 tab PO TIDM 03/12/18 11/28/18 History allopurinol 300 mg PO DAILY 03/12/18 11/28/18 History aspirin [Aspir-81] 81 mg PO DAILY 03/12/18 11/28/18 History atorvastatin 20 mg PO QPM 03/12/18 11/28/18 History bumetanide 1 mg PO BID 03/12/18 11/28/18 History cholecalciferol (vitamin D3) 2,000 unit PO QAM 03/12/18 11/28/18 History [Vitamin D3] gabapentin 600 mg PO TID 03/12/18 11/28/18 History levothyroxine 88 mcg PO DAILYBB 03/12/18 11/28/18 History losartan 50 mg PO DAILY 03/12/18 11/28/18 History metolazone 2.5 mg PO MOFR 03/12/18 11/28/18 History metoprolol succinate 50 mg PO DAILY 03/12/18 11/28/18 History multivitamin 1 tab PO DAILY 03/12/18 11/28/18 History omeprazole 20 mg PO DAILYBB 03/12/18 11/28/18 History potassium chloride 20 meq PO Q OTHER DAY 03/12/18 11/28/18 History prednisone 10 mg PO QAM 03/12/18 11/28/18 History propafenone 150 mg PO Q8H 03/12/18 11/28/18 History ranitidine HCl 150 mg PO BID 03/12/18 11/28/18 History sertraline [Zoloft] 25 mg PO DAILY 03/12/18 11/28/18 History triamcinolone acetonide 1 applic TOPICAL BID PRN 03/12/18 11/28/18 History acetaminophen [Tylenol] 650 mg PO Q4 PRN 08/07/18 11/28/18 History albuterol sulfate 2.5 mg INHALATION Q6 PRN 08/07/18 11/28/18 History meloxicam [Mobic] 15 mg PO DAILY 08/07/18 11/28/18 History Past Med/Surg History Medical History Chronic anemia (Chronic) Diastolic CHF, chronic (Chronic) GERD (gastroesophageal reflux disease) (Chronic) Depression (Chronic) Myocardial infarction (Chronic) "per patient, details unknown" COPD (chronic obstructive pulmonary disease) (Chronic) Paroxysmal a-fib (Chronic) HTN (hypertension) (Chronic) Dyslipidemia (Chronic) EVONNE (iron deficiency anemia) (Chronic) CKD (chronic kidney disease), stage IV (Chronic) Asthma (Chronic) Lumbar spinal stenosis (Chronic) Morbid obesity (Chronic) Obesity hypoventilation syndrome (Chronic) Chronic respiratory failure (Chronic) Surgical History S/P cervical spinal fusion (Chronic) History of appendectomy (Chronic) Hx of cholecystectomy (Chronic) S/P wrist surgery (Chronic) 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) Family History Father Trauma Mother Diabetes Cerebral aneurysm Daughter Bipolar 1 disorder Social History Preferred Language: American Communication Ability: Effective Beliefs That Will Affect Care: None marital status: Current Living Situation: Family Current Living Situation Comment: lives with dtr Other Information That Helps Us Care for You: No Feels Safe at Home: Yes Safety Concerns: Feels Safe At This Time Smoking Status: Former smoker Hx Alcohol Use: No Hx Substance Use: No Review of Systems Review of Systems: ROS per HPI, all other systems reviewed and negative Physical Exam Constitutional: WD/WN, vitals as above + obese Eyes: PERRL, conjunctivae normal, anicteric sclerae ENMT: external ear and nose normal, oropharynx normal Respiratory: normal respiratory effort and able to speak in complete sentences; no respiratory distress Auscultation: + rhonchi (Scattered throughout all lung valdez) and + wheezes (Inspiratory and expiratory, scattered throughout all lung valdez) Saturating well on 4 L of oxygen Cardiovascular: Rate/Rhythm: regular rate and regular rhythm Vessels: normal peripheral pulses Extremities: no edema Gastrointestinal (Abdomen): normal bowel sounds, soft, nontender, no hepatosplenomegaly Musculoskeletal: no cyanosis or clubbing, extremities motor strength 5/5 Skin: no rashes, warm and dry Neurologic: PERRL, EOMI, accommodation nl, no face palsy, no dysarthria Psychiatric: A+Ox3, euthymic affect Results & Data Vital Signs (Past 12 Hours) Vital Signs Temp Pulse Pulse Pulse Resp BP BP 11/28/18 15:19 87 20 146/69 H 11/28/18 15:12 79 16 11/28/18 13:55 37.0 C 85 22 183/82 H 11/28/18 13:26 81 20 133/53 L 11/28/18 12:32 80 20 143/95 H 11/28/18 11:42 76 20 146/65 H 11/28/18 11:20 74 18 11/28/18 10:18 11/28/18 09:12 37.2 C 77 20 141/56 H Pulse Ox 11/28/18 15:19 97 11/28/18 15:12 97 11/28/18 13:55 90 11/28/18 13:26 99 11/28/18 12:32 95 11/28/18 11:42 98 11/28/18 11:20 96 11/28/18 10:18 98 11/28/18 09:12 4 L Laboratory Results Short CBC 11/28/18 Range/Units 10:14 WBC 16.38 H (4.8-10.8) K/uL Hgb 9.3 L (12.0-16.0) g/dL Hct 31.1 L (37-47) % Plt Count 146 (130-400) K/uL BMP 11/28/18 10:14 Sodium 138 Potassium 4.3 Chloride 96 L Carbon Dioxide 42 H* BUN 27 H Creatinine 1.25 H Glucose 117 H Calcium 9.7 Cardiac Enzymes 11/28/18 Range/Units 10:14 Troponin I < 0.015 (0-0.045) ng/ml Liver Function 11/28/18 Range/Units 10:14 Total Bilirubin 0.4 (0.2-1) mg/dl AST 8 L (15-37) U/L ALT 10 L (12-78) U/L Alkaline Phosphatase 85 (45-117) U/L Albumin 3.0 L (3.4-5.0) gm/dl Diagnostic Findings CXR IMPRESSION: Early congestive heart failure. Code Status & VTE Plan Code Status Patient is a full code as per my discussion with her. VTE Prophylaxis Plan VTE Prophylaxis will be ordered: Yes Supervising Physician Co-Signing Physician Notes I have seen and examined the patient and have discussed the case with the provider above. I agree with the assessment and plan as stated with the following exceptions. 68 yo F who is morbidly obese with increasing SOB for the last 4 days. She is on 4L via nasal canula chronically. She denies any chest pain or abdominal pain. She initially reports some nausea, vomiting and diarrhea but with further questioning reports that this is every other day, and then states these symptoms are rare. She does not appear to be in distress. She reports that her daughter is ill with GI symptoms, but otherwise denies any sick contacts. She appears euvolemic on exam and mucous membranes are moist. She reports tolerating PO. Agree with [employer] plan for solumedrol, scheduled bronchodilators, and continued ceftriaxone. Flu negative. PE possible, but there is no acute respiratory failure, tachypnea, or increased oxygen needs and she has diffuse wheezing that is severe making COPD exacerbation more likely. Monitor for clinical response to current treatment overnight. Physical exam reveals morbid obesity, normal oropharynx with moist mucous membranes and no LAD, S1/2 heard and there are no murmurs present, no or pitting edema is present, abdomen is morbidly obese, soft, nontender, nondistended. Admit to floor and monitor overnight. DO Seth
[2018-11-28] MEDS: ACETAMINOPHEN 325 MG TAB PO PRN (18:41)
[2018-11-28] MEDS: methylPREDNISolone 40 MG in SYRINGE 0 ML IV SCH (18:41)
[2018-11-28] MEDS: ATORVASTATIN 20 MG TAB PO SCH (21:27)
[2018-11-28] MEDS ORDERED: MICONAZOLE NITRATE POWDER 43 GM EXT PRN (22:32)
[2018-11-29] MEDS: methylPREDNISolone 40 MG in SYRINGE 0 ML IV SCH ×3 (01:37→17:26)
[2018-11-29] MEDS: HEPARIN SOD 5,000 UNIT/0.5 ML VIAL SQ SCH ×3 (05:56→20:42)
[2018-11-29] MEDS: LEVOTHYROXINE SODIUM 88 MCG TABLET PO SCH (05:59)
[2018-11-29] MEDS: PROPAFENONE HCL 150 MG TABLET PO SCH ×3 (05:59→20:41)
[2018-11-29] MEDS: PANTOprazole 40 MG TAB PO SCH (05:59)
[2018-11-29 06:13] LABS: Hematocrit (blood only) 29.2 % (37-47); Mean Corpuscular Hgb Conc 30.8 g/dL (32-36); Mean Corpuscular Volume 99.3 fL (80-100); Mean Platelet Volume 9.1 fL (7.4-10.4); Platelet Count 148 K/uL (130-400); RDW Coefficient of Variation 14.2 % (11.5-14.5); RDW Standard Deviation 51.2 fL (36.4-46.3); Red Blood Count 2.94 M/uL (4.2-5.4); White Blood Count 12.67 K/uL (4.8-10.8)
[2018-11-29 06:48] LABS: BUN Creatinine Ratio 25.4 (10-20); Calcium 9.6 mg/dl (8.5-10.1); Creatinine Clr Calc Pharmacy 42.7 ml/min; Est GFR (African American) 42.2; Est GFR (Non-African American) 36.4; Potassium 4.8 mmol/L (3.5-5.1)
[2018-11-29] MEDS: ALBUT/IPRATROP 3MG/0.5MG NEB 3 ML VIAL NEB SCH ×4 (07:37→19:27)
[2018-11-29] MEDS: MULTIVITAMIN TAB PO SCH (08:01)
[2018-11-29] MEDS: GABAPENTIN 600 MG TAB PO SCH ×3 (08:01→20:41)
[2018-11-29] MEDS: METOPROLOL SUCC 50MG EXT REL TAB PO SCH (08:01)
[2018-11-29] MEDS: POTASSIUM CHLORIDE 20 MEQ TABCR PO SCH (08:01)
[2018-11-29] MEDS: ROFLUMILAST 500 MCG TAB PO SCH (08:01)
[2018-11-29] MEDS: ASPIRIN 81 MG ECTAB PO SCH (08:01)
[2018-11-29] MEDS: SERTRALINE HCL 50 MG TABLET PO SCH (08:01)
[2018-11-29] MEDS: LOSARTAN POTASSIUM 50 MG TAB PO SCH (08:01)
[2018-11-29] MEDS: ALLOPURINOL 300 MG TAB PO SCH (08:01)
[2018-11-29] MEDS: CHOLECALCIFEROL 1,000 UNITS TAB PO SCH (08:01)
[2018-11-29] MEDS: BUMETANIDE 1 MG TAB PO SCH ×2 (08:01→17:26)
[2018-11-29] MEDS: LACTOBACILLUS ACIDOPHILUS (FLORANEX) TAB PO SCH ×3 (08:02→17:26)
[2018-11-29] MEDS: cefTRIAXone SODIUM 2,000 MG in DEXTROSE 5% 50 ML IV SCH (11:41)
--- NOTE | 2018-11-29 17:53 | Hospitalist Progress Note ---
Date of Service November 29, 2018 Assessment & Plan (1) COPD exacerbation: Solumedrol, bronchodilators, Ceftriaxone. She is improving, continue all as scheduled. (2) Chronic respiratory failure: Continue home oxygen. (3) Diarrhea: Resolved. C. difficile was canceled. (4) Diastolic CHF, chronic: -Currently appears euvolemic -if patient's pulmonary status does not improved, could consider some gentle diuresis -For now, continue home doses of metolazone and Bumex (5) HTN (hypertension): -BP controlled, continue losartan, metoprolol, diuretics (6) Paroxysmal a-fib: -Rate controlled on metoprolol and rhythm controlled on propafenone -Not anticoagulated secondary to history of GI bleeding and hematoma (7) CKD (chronic kidney disease), stage IV: Around baseline, BMP daily. Continue home diuretics. (8) Chronic anemia: -Stable, Hgb at baseline (9) Depression: -Continue sertraline (10) Dyslipidemia: -Continue statin (11) DVT prophylaxis: -SQ heparin Full code Disposition-continue hospitalization for another 2-3 days. Tonie nAn DO [facility] Hospitalist Subjective Patient states she feels improved and her breathing is better. She reports an improvement in coughing. Denies fevers chills. She is tolerating p.o. On arrival to the room she is sitting up on the bedside and is in no acute respiratory distress. She has a positive attitude. Review of Systems Review of Systems: All systems reviewed & are unremarkable except as noted in HPI & below Physical Exam Physical Exam: CONSTITUTIONAL: obese, vitals as above, generally well- appearing EYES: normal conjuctivae, no scleral icterus ENT: MMM RESPIRATORY: wheezing bilaterally that is improved. Some coarse rhonchi present, also. No increased respiratory effort. CARDIOVASCULAR: regular rate and rhythm, S1 and 2 heard without murmurs, gallops or rubs, no JVD, no peripheral edema GASTROINTESTINAL: normal bowel sounds, soft, nontender, nondistended MUSCULOSKELETAL: strength 5/5 throughout, head is normocephalic and atraumatic SKIN: warm and dry NEUROLOGIC: CN 2-12 grossly intact, normal cognition, no gross focal deficits. Results & Data Vital Signs (Past 12 Hours) Vital Signs Temp Pulse Resp BP Pulse Ox 11/29/18 15:40 90 18 97 11/29/18 15:24 36.8 C 83 21 153/53 H 92 11/29/18 11:32 83 18 92 11/29/18 10:15 93 11/29/18 07:43 79 18 95 11/29/18 07:00 36.6 C 74 18 158/72 H 94 Laboratory Results Short CBC 11/29/18 Range/Units 05:49 WBC 12.67 H (4.8-10.8) K/uL Hgb 9.0 L (12.0-16.0) g/dL Hct 29.2 L (37-47) % Plt Count 148 (130-400) K/uL BMP 11/29/18 05:49 Sodium 140 Potassium 4.8 Chloride 98 Carbon Dioxide 39 H BUN 37 H Creatinine 1.45 H Glucose 165 H Calcium 9.6 Medications Administered Current Inpatient Medications Acetaminophen (Tylenol) 650 mg PO Q4H PRN PRN Reason: pain/fever Stop: 12/28/18 13:54 Last Admin: 11/28/18 18:41 Dose: 650 mg Documented by: Albuterol (Duoneb) 3 ml NEB QIDR [facility] Stop: 12/28/18 15:59 Last Admin: 11/29/18 15:40 Dose: 3 ml Documented by: Allopurinol (Zyloprim) 300 mg PO DAILY [facility] Stop: 12/29/18 08:59 Last Admin: 11/29/18 08:01 Dose: 300 mg Documented by: Aspirin (Ecotrin Ectab) 81 mg PO DAILY [facility] Stop: 12/29/18 08:59 Last Admin: 11/29/18 08:01 Dose: 81 mg Documented by: Atorvastatin Calcium (Lipitor) 20 mg PO QPM [facility] Stop: 12/28/18 20:59 Last Admin: 11/28/18 21:27 Dose: 20 mg Documented by: Bumetanide (Bumex) 1 mg PO BID17 [facility] Stop: 12/28/18 16:59 Last Admin: 11/29/18 17:26 Dose: 1 mg Documented by: Gabapentin (Neurontin) 600 mg PO TID [facility] Stop: 12/28/18 14:29 Last Admin: 11/29/18 14:31 Dose: 600 mg Documented by: Heparin Sodium (Porcine) (Heparin Sodium (Porcine)) 5,000 units SQ Q8 [facility] Stop: 12/28/18 13:59 Last Admin: 11/29/18 14:31 Dose: 5,000 units Documented by: Ceftriaxone Sodium 2,000 mg/ (Dextrose) 70 mls @ 140 mls/hr IV Q24H [facility]; Protocol Stop: 12/06/18 11:59 Last Infusion: 11/29/18 12:19 Dose: Infused Documented by: Methylprednisolone 40 mg/ (Syringe) 0.64 mls @ 1.5 mls/min IV Q8H [facility] Stop: 12/28/18 17:59 Last Admin: 11/29/18 17:26 Dose: 1.5 mls/min Documented by: Lactobacillus Acidophilus (Floranex) 1 tab PO TIDM [facility]; Protocol Stop: 12/28/18 16:59 Last Admin: 11/29/18 17:26 Dose: 1 tab Documented by: [facility]) [facility] Stop: 12/29/18 06:29 Last Admin: 11/29/18 05:59 Dose: 88 mcg Documented by: Losartan Potassium (Cozaar) 50 mg PO DAILY [facility] Stop: 12/29/18 08:59 Last Admin: 11/29/18 08:01 Dose: 50 mg Documented by: Metolazone (Zaroxolyn) 2.5 mg PO MoFr@0900 [facility] Stop: 12/28/18 14:44 Last Admin: 11/28/18 16:30 Dose: 2.5 mg Documented by: Metoprolol Succinate (Toprol Xl) 50 mg PO DAILY [facility] Stop: 12/29/18 08:59 Last Admin: 11/29/18 08:01 Dose: 50 mg Documented by: Miconazole Nitrate (Desenex) 1 appln EXT PRN PRN PRN Reason: Affected Skin Folds Stop: 12/28/18 22:31 Last Admin: 11/29/18 00:11 Dose: 1 appln Documented by: Miscellaneous (Order Awaiting Action) 1 ea N/A QS [facility] Stop: 12/28/18 15:59 Last Admin: 11/29/18 15:35 Dose: Not Given Documented by: Multivitamins (Multivitamin Tab) 1 tab PO DAILY [facility] Stop: 12/29/18 08:59 Last Admin: 11/29/18 08:01 Dose: 1 tab Documented by: Pantoprazole [facility]odium (Protonix) [facility]; Protocol Stop: 12/29/18 06:29 Last Admin: 11/29/18 05:59 Dose: 40 mg Documented by: Potassium Chloride (Klor-Con M20) 20 meq PO Q2D@0900 [facility] Stop: 12/29/18 08:59 Last Admin: 11/29/18 08:01 Dose: 20 meq Documented by: Propafenone HCl (Rythmol) 150 mg PO Q8H [facility] Stop: 12/28/18 14:29 Last Admin: 11/29/18 14:31 Dose: 150 mg Documented by: Ranitidine HCl (Zantac) 150 mg PO BID [facility] Stop: 12/28/18 20:59 Last Admin: 11/29/18 08:01 Dose: 150 mg Documented by: Roflumilast (Daliresp) 500 mcg PO DAILY [facility] Stop: 12/29/18 08:59 Last Admin: 11/29/18 08:01 Dose: 500 mcg Documented by: Sertraline HCl (Zoloft) 25 mg PO DAILY [facility] Stop: 12/29/18 08:59 Last Admin: 11/29/18 08:01 Dose: 25 mg Documented by: Vitamin D (Vitamin D3) 2,000 units PO QAM [facility] Stop: 12/29/18 08:59 Last Admin: 11/29/18 08:01 Dose: 2,000 units Documented by:
[2018-11-29] MEDS: ATORVASTATIN 20 MG TAB PO SCH (20:41)
[2018-11-29] MEDS: ACETAMINOPHEN 325 MG TAB PO PRN (21:07)
[2018-11-30] MEDS: methylPREDNISolone 40 MG in SYRINGE 0 ML IV SCH ×3 (02:14→18:12)
[2018-11-30 05:59] LABS: Hematocrit (blood only) 29.8 % (37-47); Hemoglobin 8.9 g/dL (12.0-16.0); Mean Corpuscular Hgb Conc 29.9 g/dL (32-36); Mean Corpuscular Volume 100.7 fL (80-100); Mean Platelet Volume 9.2 fL (7.4-10.4); Nucleated RBC # (auto) 0.03 K/uL (0-0); Nucleated RBC % (auto) 0.1 %; Platelet Count 164 K/uL (130-400); RDW Coefficient of Variation 14.5 % (11.5-14.5); Red Blood Count 2.96 M/uL (4.2-5.4); White Blood Count 21.24 K/uL (4.8-10.8)
[2018-11-30] MEDS: LEVOTHYROXINE SODIUM 88 MCG TABLET PO SCH (06:13)
[2018-11-30] MEDS: PROPAFENONE HCL 150 MG TABLET PO SCH ×3 (06:15→21:10)
[2018-11-30] MEDS: HEPARIN SOD 5,000 UNIT/0.5 ML VIAL SQ SCH ×3 (06:16→21:09)
[2018-11-30] MEDS: PANTOprazole 40 MG TAB PO SCH (06:20)
[2018-11-30 06:29] LABS: BUN Creatinine Ratio 30.5 (10-20); Calcium 9.3 mg/dl (8.5-10.1); Creatinine Clr Calc Pharmacy 35.8 ml/min; Est GFR (African American) 34.1; Est GFR (Non-African American) 29.4; Potassium 4.7 mmol/L (3.5-5.1)
[2018-11-30] MEDS: ALBUT/IPRATROP 3MG/0.5MG NEB 3 ML VIAL NEB SCH ×4 (07:11→19:08)
[2018-11-30] MEDS: ASPIRIN 81 MG ECTAB PO SCH (07:45)
[2018-11-30] MEDS: SERTRALINE HCL 50 MG TABLET PO SCH (07:45)
[2018-11-30] MEDS: ROFLUMILAST 500 MCG TAB PO SCH (07:45)
[2018-11-30] MEDS: LOSARTAN POTASSIUM 50 MG TAB PO SCH (07:45)
[2018-11-30] MEDS: MULTIVITAMIN TAB PO SCH (07:45)
[2018-11-30] MEDS: ALLOPURINOL 300 MG TAB PO SCH (07:45)
[2018-11-30] MEDS: CHOLECALCIFEROL 1,000 UNITS TAB PO SCH (07:45)
[2018-11-30] MEDS: GABAPENTIN 600 MG TAB PO SCH ×3 (07:46→21:08)
[2018-11-30] MEDS: METOPROLOL SUCC 50MG EXT REL TAB PO SCH (07:46)
[2018-11-30] MEDS: LACTOBACILLUS ACIDOPHILUS (FLORANEX) TAB PO SCH ×3 (07:46→16:07)
[2018-11-30] MEDS: BUMETANIDE 1 MG TAB PO SCH ×2 (07:46→16:07)
[2018-11-30] MEDS: cefTRIAXone SODIUM 2,000 MG in DEXTROSE 5% 50 ML IV SCH (12:28)
--- NOTE | 2018-11-30 20:24 | Hospitalist Progress Note ---
Date of Service November 30, 2018 Assessment & Plan (1) COPD exacerbation: CXR: No Pneumonia Decrease Solumedrol to Q12H Continue bronchodilators, Ceftriaxone Continue supplemental oxygen Clinically Improving (2) Chronic respiratory failure: Continue home oxygen-- On 4 liters at baseline (3) Diarrhea: Resolved. (4) Diastolic CHF, chronic: Currently appears euvolemic consider gentle IV diuresis if needed Continue Metolazone, Bumex (5) HTN (hypertension): Bp Variable continue losartan, metoprolol, diuretics (6) Paroxysmal a-fib: Continue metoprolol, propafenone Not anticoagulated secondary to history of GI bleeding and hematoma (7) CKD (chronic kidney disease), stage IV: Cr near baseline Monitor BMP (8) Chronic anemia: Stable Hb at baseline (9) Depression: Continue sertraline (10) Dyslipidemia: Continue statin (11) DVT prophylaxis: SQ heparin Code Status Full code Subjective Patient is seen and examined at bedside Shortness of breath and cough slightly improved Denies any chest pain, nausea, dizziness Offers no other complaints Review of Systems Review of Systems: All systems reviewed & are unremarkable except as noted in HPI & below Physical Exam Physical Exam: Physical Exam: Vitals signs as noted above General Appearance:Chronic ill appearing, no apparent distress Head: normocephalic, Atraumatic Eyes: normal inspection, EOMI Neck: supple, Trachea midline Respiratory/Chest: Coarse decreased breath sounds, + Rhonchi Cardiovascular: S1, S2, No murmur Abdomen/GI:Soft, Non tender, Bowel sounds present Extremities/Musculoskelatal:normal inspection, Trace edema Neurologic/Psych:AAOX3, grossly no focal neurological deficits Skin: normal color, warm Results & Data Vital Signs (Past 12 Hours) Vital Signs Temp Pulse Resp BP Pulse Ox 11/30/18 19:08 74 16 95 11/30/18 15:16 36.7 C 80 18 124/60 91 11/30/18 15:14 71 18 97 11/30/18 11:14 76 18 95 Laboratory Results Short CBC 11/30/18 Range/Units 05:39 WBC 21.24 H (4.8-10.8) K/uL Hgb 8.9 L (12.0-16.0) g/dL Hct 29.8 L (37-47) % Plt Count 164 (130-400) K/uL BMP 11/30/18 05:39 Sodium 137 Potassium 4.7 Chloride 95 L Carbon Dioxide 40 H BUN 53 H Creatinine 1.73 H Glucose 140 H Calcium 9.3
[2018-11-30] MEDS: ATORVASTATIN 20 MG TAB PO SCH (21:08)
[2018-11-30] MEDS: ACETAMINOPHEN 325 MG TAB PO PRN (21:15)
[2018-12-01] MEDS ORDERED: TRAMADOL HCL 50 MG TABLET PO STA (00:42)
[2018-12-01] MEDS ORDERED: COUGH DROP (SUGAR FREE) LOZ 24 LOZ/1 BOX BUCCAL ONE (04:46)
[2018-12-01] MEDS: LEVOTHYROXINE SODIUM 88 MCG TABLET PO SCH (05:40)
[2018-12-01] MEDS: HEPARIN SOD 5,000 UNIT/0.5 ML VIAL SQ SCH ×3 (05:40→21:18)
[2018-12-01] MEDS: methylPREDNISolone 40 MG in SYRINGE 0 ML IV SCH ×2 (05:40→18:05)
[2018-12-01] MEDS: PANTOprazole 40 MG TAB PO SCH (05:40)
[2018-12-01] MEDS: PROPAFENONE HCL 150 MG TABLET PO SCH ×3 (05:40→21:16)
[2018-12-01] MEDS: ALBUT/IPRATROP 3MG/0.5MG NEB 3 ML VIAL NEB SCH ×4 (06:59→19:12)
[2018-12-01] MEDS: SERTRALINE HCL 50 MG TABLET PO SCH (08:00)
[2018-12-01] MEDS: ALLOPURINOL 300 MG TAB PO SCH (08:01)
[2018-12-01] MEDS: METOPROLOL SUCC 50MG EXT REL TAB PO SCH (08:01)
[2018-12-01] MEDS: CHOLECALCIFEROL 1,000 UNITS TAB PO SCH (08:01)
[2018-12-01] MEDS: BUMETANIDE 1 MG TAB PO SCH ×2 (08:01→16:56)
[2018-12-01] MEDS: LOSARTAN POTASSIUM 50 MG TAB PO SCH (08:01)
[2018-12-01] MEDS: ASPIRIN 81 MG ECTAB PO SCH (08:01)
[2018-12-01] MEDS: MULTIVITAMIN TAB PO SCH (08:01)
[2018-12-01] MEDS: ROFLUMILAST 500 MCG TAB PO SCH (08:01)
[2018-12-01] MEDS: GABAPENTIN 600 MG TAB PO SCH ×3 (08:01→20:16)
[2018-12-01] MEDS: LACTOBACILLUS ACIDOPHILUS (FLORANEX) TAB PO SCH ×3 (08:01→16:55)
[2018-12-01] MEDS: POTASSIUM CHLORIDE 20 MEQ TABCR PO SCH (08:01)
[2018-12-01] MEDS: cefTRIAXone SODIUM 2,000 MG in DEXTROSE 5% 50 ML IV SCH (11:37)
[2018-12-01] MEDS: ACETAMINOPHEN 325 MG TAB PO PRN ×3 (13:01→21:38)
--- NOTE | 2018-12-01 15:54 | XRay Report ---
XR shoulder RT min 2V routine CLINICAL HISTORY: Right shoulder pain COMPARISON: None. DISCUSSION: There are postsurgical changes of a total right shoulder arthroplasty. No acute fractures or dislocations are visualized. Within the chest, the heart is enlarged with interstitial thickening . There is evidence for a prior midthoracic vertebroplasty. IMPRESSION: 1. Postsurgical changes of a right shoulder arthroplasty 2. No acute fractures or dislocations identified. Electronically signed by: Fox Garcia M.D. 12/01/2018 3:52 PM
--- NOTE | 2018-12-01 19:09 | Hospitalist Progress Note ---
Date of Service December 01, 2018 Assessment & Plan (1) COPD exacerbation: CXR: No Pneumonia Decrease Solumedrol to Q daily Continue bronchodilators, Ceftriaxone Continue supplemental oxygen Clinically Improving Leukocytosis likely due to steroids Patient not interested in rehab placement (2) Chronic respiratory failure: Continue home oxygen-- On 4 liters at baseline Right Shoulder Pain: X ray:Postsurgical changes of a right shoulder arthroplasty No acute fractures or dislocations identified. Monitor (3) Diarrhea: Resolved. (4) Diastolic CHF, chronic: Currently appears euvolemic consider gentle IV diuresis if needed Continue Metolazone, Bumex (5) HTN (hypertension): Bp Stable continue losartan, metoprolol, diuretics (6) Paroxysmal a-fib: Continue metoprolol, propafenone Not anticoagulated secondary to history of GI bleeding and hematoma (7) CKD (chronic kidney disease), stage IV: Cr near baseline Monitor BMP (8) Chronic anemia: Stable Hb at baseline (9) Depression: Continue sertraline (10) Dyslipidemia: Continue statin (11) DVT prophylaxis: SQ heparin Code Status Full code Disposition: Patient wants to return home Refuses home health services or rehab placement business services assistant following Subjective Patient is seen and examined at bedside Shortness of breath and cough continues to improve Complains of right shoulder pain--- imaging negative for any acute fractures Office no other complaints Denies any chest pain, nausea, dizziness Not interested in rehab placement Review of Systems Review of Systems: All systems reviewed & are unremarkable except as noted in HPI & below Physical Exam Physical Exam: Physical Exam: Vitals signs as noted above General Appearance:Chronic ill appearing, no apparent distress Head: normocephalic, Atraumatic Eyes: normal inspection, EOMI Neck: supple, Trachea midline Respiratory/Chest: Coarse decreased breath sounds, CTA Cardiovascular: S1, S2, No murmur Abdomen/GI:Soft, Non tender, Bowel sounds present Extremities/Musculoskelatal:normal inspection, Trace edema Neurologic/Psych:AAOX3, grossly no focal neurological deficits Skin: normal color, warm Results & Data Vital Signs (Past 12 Hours) Vital Signs Temp Pulse Resp BP Pulse Ox 12/01/18 16:04 84 20 96 12/01/18 15:00 36.7 C 66 20 126/49 L 95 12/01/18 10:58 79 18 90 12/01/18 09:45 86 L
[2018-12-01] MEDS: ATORVASTATIN 20 MG TAB PO SCH (20:16)
[2018-12-02] MEDS: HEPARIN SOD 5,000 UNIT/0.5 ML VIAL SQ SCH ×2 (05:28→14:00)
[2018-12-02] MEDS: PANTOprazole 40 MG TAB PO SCH (05:30)
[2018-12-02] MEDS: LEVOTHYROXINE SODIUM 88 MCG TABLET PO SCH (05:30)
[2018-12-02] MEDS: PROPAFENONE HCL 150 MG TABLET PO SCH ×2 (05:31→14:00)
[2018-12-02] MEDS: ACETAMINOPHEN 325 MG TAB PO PRN (05:40)
[2018-12-02 06:25] LABS: Hematocrit (blood only) 31.3 % (37-47); Mean Corpuscular Hgb Conc 31.9 g/dL (32-36); Mean Corpuscular Volume 96.6 fL (80-100); Mean Platelet Volume 9.2 fL (7.4-10.4); Nucleated RBC # (auto) 0.02 K/uL (0-0); Nucleated RBC % (auto) 0.1 %; Platelet Count 196 K/uL (130-400); RDW Coefficient of Variation 14.6 % (11.5-14.5); RDW Standard Deviation 51.5 fL (36.4-46.3); Red Blood Count 3.24 M/uL (4.2-5.4); White Blood Count 22.39 K/uL (4.8-10.8)
[2018-12-02 07:00] LABS: BUN Creatinine Ratio 42.1 (10-20); Creatinine Clr Calc Pharmacy 37.6 ml/min; Est GFR (African American) 36.1; Est GFR (Non-African American) 31.1; Potassium 4.2 mmol/L (3.5-5.1)
[2018-12-02] MEDS: ALBUT/IPRATROP 3MG/0.5MG NEB 3 ML VIAL NEB SCH ×2 (07:03→11:16)
[2018-12-02] MEDS: ALLOPURINOL 300 MG TAB PO SCH (08:14)
[2018-12-02] MEDS: SERTRALINE HCL 50 MG TABLET PO SCH (08:14)
[2018-12-02] MEDS: metOLazone 2.5 MG TABLET PO SCH (08:14)
[2018-12-02] MEDS: LACTOBACILLUS ACIDOPHILUS (FLORANEX) TAB PO SCH ×2 (08:15→12:33)
[2018-12-02] MEDS: BUMETANIDE 1 MG TAB PO SCH (08:15)
[2018-12-02] MEDS: GABAPENTIN 600 MG TAB PO SCH ×2 (08:15→14:00)
[2018-12-02] MEDS: CHOLECALCIFEROL 1,000 UNITS TAB PO SCH (08:15)
[2018-12-02] MEDS: MULTIVITAMIN TAB PO SCH (08:15)
[2018-12-02] MEDS: LOSARTAN POTASSIUM 50 MG TAB PO SCH (08:15)
[2018-12-02] MEDS: METOPROLOL SUCC 50MG EXT REL TAB PO SCH (08:15)
[2018-12-02] MEDS: ASPIRIN 81 MG ECTAB PO SCH (08:15)
[2018-12-02] MEDS: ROFLUMILAST 500 MCG TAB PO SCH (08:15)
[2018-12-02] MEDS ORDERED: methylPREDNISolone 40 MG in SYRINGE 0 ML IV SCH (09:00)
[2018-12-02] MEDS: cefTRIAXone SODIUM 2,000 MG in DEXTROSE 5% 50 ML IV SCH (12:34)
--- NOTE | 2018-12-02 13:51 | Hospitalist Progress Note ---
Date of Service December 02, 2018 Assessment & Plan (1) COPD exacerbation: CXR: No Pneumonia Transition Solumedrol to prednisone taper Continue bronchodilators, Ceftriaxone Continue supplemental oxygen Leukocytosis likely due to steroids, afebrile Subjectively feels much improved Patient not interested in rehab placement (2) Chronic respiratory failure: Continue home oxygen-- On 4 liters at baseline Right Shoulder Pain: X ray:Postsurgical changes of a right shoulder arthroplasty No acute fractures or dislocations identified. Monitor (3) Diarrhea: Resolved. (4) Diastolic CHF, chronic: Currently appears euvolemic Continue Metolazone, Bumex (5) HTN (hypertension): Bp Stable continue losartan, metoprolol, diuretics (6) Paroxysmal a-fib: Continue metoprolol, propafenone Not anticoagulated secondary to history of GI bleeding and hematoma (7) CKD (chronic kidney disease), stage IV: Cr near baseline Monitor BMP (8) Chronic anemia: Stable Hb at baseline (9) Depression: Continue sertraline (10) Dyslipidemia: Continue statin (11) DVT prophylaxis: SQ heparin Code Status Full code Disposition: Patient wants to return home Refuses home health services or rehab placement food and nutrition services supervisor following Subjective Patient is seen and examined at bedside Cough and shortness of breath much improved Eager to get discharged Offers no other complaints Denies any chest pain, nausea, dizziness Not interested in rehab placement or home health services Review of Systems Review of Systems: All systems reviewed & are unremarkable except as noted in HPI & below Physical Exam Physical Exam: Physical Exam: Vitals signs as noted above General Appearance:Chronic ill appearing, no apparent distress Head: normocephalic, Atraumatic Eyes: normal inspection, EOMI Neck: supple, Trachea midline Respiratory/Chest: Coarse decreased breath sounds, CTA Cardiovascular: S1, S2, No murmur Abdomen/GI:Soft, Non tender, Bowel sounds present Extremities/Musculoskelatal:normal inspection, Trace edema Neurologic/Psych:AAOX3, grossly no focal neurological deficits Skin: normal color, warm Results & Data Vital Signs (Past 12 Hours) Vital Signs Temp Pulse Resp BP Pulse Ox 12/02/18 11:16 91 H 20 90 12/02/18 07:03 66 18 98 12/02/18 07:00 36.8 C 62 18 147/76 H 91 Laboratory Results Short CBC 12/02/18 Range/Units 06:03 WBC 22.39 H (4.8-10.8) K/uL Hgb 10.0 L (12.0-16.0) g/dL Hct 31.3 L (37-47) % Plt Count 196 (130-400) K/uL BMP 12/02/18 06:03 Sodium 139 Potassium 4.2 Chloride 94 L Carbon Dioxide 44 H* BUN 69 H Creatinine 1.65 H Glucose 115 H Calcium 10.0
--- NOTE | 2018-12-02 14:06 | Discharge Summary ---
Date of Service December 02, 2018 Admission HPI Per Admitting Provider 68-year-old female who presents the ED with shortness of breath and cough. Patient reports her symptoms began about 5 days ago. She reports worsening exertional shortness of breath. She also has had a cough productive for john/yellow sputum at times. Patient has underlying COPD and chronically wears 4 L of oxygen, she is currently saturating well on 4 L. She reports increasing generalized weakness. She denies fevers and chills. She reports some intermittent nausea with one episode of vomiting. She has been having some diarrhea as well. She denies abdominal pain. No chest pain or palpitations. She reports some mild dizziness however denies lightheadedness, diaphoresis, syncopal events. She denies any urinary symptoms. In the ER, patient remained hemodynamically stable. Labs show WBC 16 K, CO2 42, Mg+ 1.6 and other chronic findings. For EMS, patient received Solu-Medrol 125 mg IV and nebulizer treatment. She was given IVF, IV Zofran, IV magnesium, IV ceftriaxone, nebulizer treatment, IV Tylenol. Admission Exam Per Admitting Provider Constitutional: WD/WN, vitals as above + obese Eyes: PERRL, conjunctivae normal, anicteric sclerae ENMT: external ear and nose normal, oropharynx normal Respiratory: normal respiratory effort and able to speak in complete sentences; no respiratory distress Auscultation: + rhonchi (Scattered throughout all lung valdez) and + wheezes (Inspiratory and expiratory, scattered throughout all lung valdez) Saturating well on 4 L of oxygen Cardiovascular: Rate/Rhythm: regular rate and regular rhythm Vessels: normal peripheral pulses Extremities: no edema Gastrointestinal (Abdomen): normal bowel sounds, soft, nontender, no hepatosplenomegaly Musculoskeletal: no cyanosis or clubbing, extremities motor strength 5/5 Skin: no rashes, warm and dry Neurologic: PERRL, EOMI, accommodation nl, no face palsy, no dysarthria Psychiatric: A+Ox3, euthymic affect Principal Diagnosis Discharge Information Discharge Diagnosis Acute on chronic COPD exacerbation Discharge Goals Decrease discomfort,Improve function,Improve disease control Discharge Activity Limitations Resume your previous activity Discharge Data Allergies Allergy/AdvReac Type Severity Reaction Status Date / Time adhesive Allergy Severe RED RASH Verified 11/28/18 11:32 latex AdvReac Mild TAPE-SORE Verified 11/28/18 11:32 morphine AdvReac Mild DELUSIONS Verified 11/28/18 11:32 Consultations 11/28/18 12:40 ED Decision to Admit Stat 11/28/18 13:55 Consult Case Management - Discharge Planning Routine Procedures Performed CXR: Early congestive heart failure. R Shoulder X ray: 1. Postsurgical changes of a right shoulder arthroplasty 2. No acute fractures or dislocations identified. Hospital Course (1) COPD exacerbation: CXR: No Pneumonia Transition Solumedrol to prednisone taper Continue bronchodilators, Ceftriaxone Continue supplemental oxygen Leukocytosis likely due to steroids, afebrile Subjectively feels much improved Patient not interested in rehab placement (2) Chronic respiratory failure: Continue home oxygen-- On 4 liters at baseline Right Shoulder Pain: X ray:Postsurgical changes of a right shoulder arthroplasty No acute fractures or dislocations identified. Monitor (3) Diarrhea: Resolved. (4) Diastolic CHF, chronic: Currently appears euvolemic Continue Metolazone, Bumex (5) HTN (hypertension): Bp Stable continue losartan, metoprolol, diuretics (6) Paroxysmal a-fib: Continue metoprolol, propafenone Not anticoagulated secondary to history of GI bleeding and hematoma (7) CKD (chronic kidney disease), stage IV: Cr near baseline Monitor BMP (8) Chronic anemia: Stable Hb at baseline (9) Depression: Continue sertraline (10) Dyslipidemia: Continue statin (11) DVT prophylaxis: SQ heparin Code Status Full code Disposition: Patient wants to return home Refuses home health services or rehab placement hosted services analyst following Total Time Total Time Spent Total Time Spent (In Minutes): 39 minutes Total Time Includes: Examination of the Patient, Discharge Planning, Medication Reconciliation and Other Discharge Plan Discharge Items Patient Disposition: Home - Self-Care Reason For Visit: COPD EXACERBATION Discharge Diagnosis: Acute on chronic COPD exacerbation Discharge Goals: Decrease discomfort, Improve disease control and Improve function Activity: Resume your previous activity Exercise/Sports: Gradually increase as tolerated Non-emergency contact: 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 Call non-emergency contact if: you have any medication questions, your symptoms worsen, your pain is not controlled, your pain is worsening, your pain is unusual for you, your pain is concerning for you and you have a fever Follow-up/Referrals: Babak Melendez MD [Primary Care Provider] - Diet: Heart Healthy and Low Sodium (2gm) Addtl Provider Instructions: Follow-up with primary care physician on 12/07/18 at 11:20AM 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 4 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 Complete the prednisone taper and antibiotic course as prescribed Seek immediate medical attention if your symptoms reoccur or worsen Prednisone Taper Course: Start taking Prednisone 40mg for 2 days, then 30mg for 2 days, then 20mg for 2 days Resume your Prednisone 10mg daily after completing the above taper course Prescriptions: New prednisone 10 mg tablet 10 mg PO UD Qty: 18 RF: 0 cefuroxime axetil 250 mg tablet 250 mg PO BID 3 Days Qty: 6 RF: 0 Continued Breo Ellipta 200-25 mcg/dose Blister With Device 1 inh INHALATION DAILY RF: 0 multivitamin Tablet 1 tab PO DAILY RF: 0 losartan 50 mg Tablet 50 mg PO DAILY RF: 0 metolazone 2.5 mg Tablet 2.5 mg PO MOFR RF: 0 propafenone 150 mg Tablet 150 mg PO Q8H RF: 0 prednisone 10 mg Tablet 10 mg PO QAM RF: 0 gabapentin 600 mg Tablet 600 mg PO TID RF: 0 atorvastatin 20 mg Tablet 20 mg PO QPM RF: 0 metoprolol succinate 50 mg Tablet Extended Release 24 Hr 50 mg PO DAILY RF: 0 aspirin [Aspir-81] 81 mg Tablet,Delayed Release (Dr/Ec) 81 mg PO DAILY RF: 0 triamcinolone acetonide 0.1 % Cream 1 applic TOPICAL BID PRN (Reason: Skin Irritation) RF: 0 levothyroxine 88 mcg Tablet 88 mcg PO DAILYBB RF: 0 ranitidine HCl 150 mg Tablet 150 mg PO BID RF: 0 sertraline [Zoloft] 25 mg Tablet 25 mg PO DAILY RF: 0 omeprazole 20 mg Capsule,Delayed Release(Dr/Ec) 20 mg PO DAILYBB RF: 0 bumetanide 1 mg Tablet 1 mg PO BID RF: 0 allopurinol 300 mg Tablet 300 mg PO DAILY RF: 0 cholecalciferol (vitamin D3) [Vitamin D3] 2,000 unit Tablet 2,000 unit PO QAM RF: 0 Lactinex 1 million cell Tablet,Chewable 1 tab PO TIDM RF: 0 Daliresp 500 mcg Tablet 500 mcg PO DAILY RF: 0 potassium chloride 20 mEq Tablet Extended Release 20 meq PO Q OTHER DAY RF: 0 meloxicam [Mobic] 15 mg Tablet 15 mg PO DAILY RF: 0 acetaminophen [Tylenol] 325 mg Capsule 650 mg PO Q4 PRN (Reason: Fever Or Pain) RF: 0 albuterol sulfate 2.5 mg /3 mL (0.083 %) Solution For Nebulization 2.5 mg INHALATION Q6 PRN (Reason: Shortness Of Breath Or Wheezing) RF: 0 Stand-Alone Forms: [facility] Discharge Orders: Discharge Order (Routine); Ordered 12/02/18 Ordered By: Bautista Casper Admission Data Admit Date/Time: 11/28/18 12:56 Attending Provider: Bautista Casper Admit Provider: Tonie Ann Primary Care Provider: Babak Melendez Other Providers: Tonie Ann Service: Medical Other Interventions: Discharge Summary Assessment (RN) Last Done: 12/02/18 14:12 Pending Studies at Discharge: No DC Date/Time DO NOT enter until pt leaves facility: 12/02/18 14:24
== END 2018-12-02 14:24 | disposition home or self-care (01) | DRG 191 ==
LOC: ED 09:03 → 4W 12:56 → SUATTDRO 12:56 → 4W 13:30

== ENCOUNTER 2018-12-10 04:48 | Inpatient (IN) ==
[2018-12-10] MEDS ORDERED: fentaNYL citrate 100 MCG/2 ML VIAL IV STA (04:58)
[2018-12-10] MEDS ORDERED: ALBUT/IPRATROP 3MG/0.5MG NEB 3 ML VIAL NEB STA (04:59)
[2018-12-10 05:41] LABS: Anion Gap 0 (3-11); BUN Creatinine Ratio 32.6 (10-20); Blood Urea Nitrogen 43 mg/dl (7-18); Calcium 9.2 mg/dl (8.5-10.1); Carbon Dioxide 35 mmol/L (21-32); Chloride 103 mmol/L (98-107); Creatinine Clr Calc Pharmacy 51.4 ml/min; Est GFR (African American) 47.3; Est GFR (Non-African American) 40.8; Glucose 96 mg/dl (70-99); Sodium 138 mmol/L (136-145)
[2018-12-10 05:45] LABS: Troponin I < 0.015 ng/ml (0-0.045)
[2018-12-10 05:59] LABS: Basophils # (auto) 0.02 K/uL (0-0.2); Basophils % (auto) 0.1 %; Eosinophils # (auto) 0.42 K/uL (0-0.5); Eosinophils % (auto) 1.6 %; Hematocrit (blood only) 30.5 % (37-47); Hemoglobin 9.1 g/dL (12.0-16.0); Immature Granulocytes # (auto) 0.18 K/uL (0.00-0.02); Immature Granulocytes % (auto) 0.7 %; Lymphocytes # (auto) 2.25 K/uL (1.2-3.4); Lymphocytes % (auto) 8.6 %; Mean Corpuscular Hgb Conc 29.8 g/dL (32-36); Mean Corpuscular Volume 100.7 fL (80-100); Mean Platelet Volume 11.1 fL (7.4-10.4); Monocytes # (auto) 1.54 K/uL (0.11-0.59); Monocytes % (auto) 5.9 %; Neutrophils # (auto) 21.76 K/uL (1.4-6.5); Neutrophils % (auto) 83.1 %; Platelet Count 181 K/uL (130-400); Platelet Estimate Normal (Normal); RDW Coefficient of Variation 15.2 % (11.5-14.5); Red Blood Count 3.03 M/uL (4.2-5.4); White Blood Count 26.17 K/uL (4.8-10.8)
[2018-12-10] MEDS ORDERED: LEVOFLOXACIN/D5W 750 MG/150 ML BAG IV STA (05:59)
[2018-12-10 06:14] LABS: Prothrombin Time 10.5 Seconds (9.0-12.0)
[2018-12-10 06:16] LABS: Potassium 4.9 mmol/L (3.5-5.1)
[2018-12-10 06:18] LABS: Magnesium 1.7 mg/dl (1.8-2.4)
[2018-12-10 06:50] LABS: Appearance Urine Clear (Clear); Bacteria Urine Automated Negative (Negative); Bilirubin Urine Negative (Negative); Blood Urine Negative (Negative); Color Urine Yellow; Epithelial Cell Urine Auto >30 /lpf (0-5); Glucose Urine UA Negative (Negative); Ketones Urine Negative (Negative); Leukocyte Esterase Urine 1+ (Negative); Nitrite Urine Negative (Negative); Protein Urine Negative (Negative); RBC Urine Automated 0-4 /hpf (0-4); Specific Gravity Urine 1.017 (1.000-1.030); Urobilinogen Urine Negative (Negative)
--- NOTE | 2018-12-10 07:15 | XRay Report ---
XR chest 1V not portable CLINICAL HISTORY: Shortness of breath COMPARISON STUDY: 11/28/2018 FINDINGS: The heart remains enlarged. There are progressive left lower lung zone airspace opacities. There are developing peripheral right lung airspace opacities. There are trace pleural effusions. The re is mild pulmonary vascular congestion. There are postsurgical changes a right humeral arthroplasty .[ IMPRESSION: 1. Cardiomegaly and radiographic evidence of mild pulmonary vascular congestion 2. Worsening airspace opacities at the left lung base 3. Developing peripheral right lung airspace opacities 4. Age-indeterminate fracture the right sixth rib. Electronically signed by: Fox Garcia M.D. 12/10/2018 7:14 AM
--- NOTE | 2018-12-10 07:16 | XRay Report ---
XR lumbar spine 2-3V CLINICAL HISTORY: low back pain, acute COMPARISON STUDY: 01/03/2018 FINDINGS: The bones are osteopenic. The provided lateral view is rotated. No acute fractures or sublu xations are visualized. There are postsurgical changes of a right hip arthroplasty. There is mild pro minence the left mid abdominal small bowel loop, possibly representing an ileus. IMPRESSION: Limited study from a positioning standpoint. No fractures identified. Electronically signed by: Fox Garcia M.D. 12/10/2018 7:15 AM
--- NOTE | 2018-12-10 07:48 | Emergency Department Note ---
Entered by Jean Winston acting as a scribe for Markus Lowe MD ED Provider Note Name: Eneida Lee Age: 68, female Arrives Via: EMS Informant: Patient CC: Lower back pain HPI: The patient is a 68 year old female who presents to the emergency department with complaints of worsening lower back pain beginning a week ago. The patient states that she was discharged from the hospital a week ago. She notes that she was diagnosed with bronchitis and started on prednisone. She reports that her back pain and SOB has been getting worse since she was discharged. The patient states that she has been using breathing treatments at home with no relief of her symptoms. She notes that she finished her antibiotics. She also complains of a subjective fever, nausea, and dizziness. She denies any vomiting, diarrhea, abdominal pain, urinary symptoms, and falls. She reports that she has not started any new medications recently other than the prednisone. ROS: See above HPI for pertinent positives & negatives. A total of 10 systems reviewed and were otherwise negative. Past Medical History: Please see medical history list. Past Surgical History: Please see medical history list. Family History: Cerebral aneurysm, diabetes, bipolar 1 Social History: Former smoker, does not use drugs, does not drink alcohol. Home Medications: Please see medication list. Allergies: Latex, morphine Physical: Vitals: BP 127/58 L, Pulse 86, Resp 20, Temp 98.8 F, O2 Sat 98 Delivery: Nasal cannula Flow Rate 4L/min Exam: GENERAL: Patient is chronically unwell and uncomfortable appearing and in moderate distress. EYES: No scleral icterus, unremarkable pupils. ENT: Mucous membranes moist, no nasal congestion. NECK: No masses appreciated, no meningismus, trachea is midline. RESPIRATORY: Dyspneic and tachypneic with wet rattling in all lung valdez. No wh eeze, no rhonchi. CARDIOVASCULAR: Regular rate and rhythm. No murmurs, rubs, gallops appreciated. GASTROINTESTINAL: Abdomen soft, non-tender, no peritonitis. Bowel sounds positive. No masses appreciated. BACK: No CVA tenderness. Tenderness to palpation of the lumbar spine midline, no stepoffs. EXTREMITIES: Normal motion all extremities, no cyanosis, no edema. NEUROLOGIC: Alert and oriented, no acute motor or sensory deficits, no focal weakness, cranial nerves grossly intact. SKIN: No rash, no jaundice, no diaphoresis. ED Course: Prior Medical Record, Triage/Nursing Notes, Medications, Allergies reviewed by Me 0454: The patient was evaluated in room B9. A complete history and physical exam was performed. 0534: I rechecked the patient. She is going to X-Ray. 0604: I reevaluated and updated the patient. Her back pain is better. 0605[facility] 0608: Upon reevaluation, the patient is stable. I discussed the findings and the treatment plan with the patient. She expresses agreement and understanding. [facility] The patient will be evaluated for further management. Vital Signs: reviewed and remarkable for wnl Labs: Reviewed and remarkable for elevated WBC, normal lactate Interventions: Saline Lock, Levaquin 750mg IV, Duoneb Imaging: X ray results are stated below per my interpretation: Chest: 1 view: RLL infiltrate new. Possible LLL infiltrate EKG: EKG results per my review. Indication - Back Pain. Normal sinus, 86, no ectopy, no ischemia, QTC 428. Consults: 0608: I reviewed the patient's case with Dr. Frias - [facility]. He will evaluate the patient for further management. Blood pressure: Normal. No Referral necessary Disposition: Hospitalization Differentials: Differential diagnosis includes: infections, reactive airway disease, COPD, pneumonia, pleural effusion, pulmonary edema, ARDS, pneumothorax, CHF, cardiac ischemia, cardiac tamponade, dysrhythmia, anemia, pulmonary embolism, musculoskeletal, gastrointestinal process, as well as others were entertained. Medical Decision Making: Chronically unwell 68 yr old patient with worsening respiratory status and increasing back pain. No trauma nor injury though clearly is TTP over lumbar spine thus I suspect MSK cause. No new leg weakness nor urinarybowel changes thus with other source of infection being pneumonia cause of elevated wbc, seems unlikely epidural infection. Will defer further back pain work-up to hospitalist as she will need hospitalization for pneumonia and I do not see clear evidence of fracture on imaging of lumbar spine. She has wbc 26 which is continuing to increase since discharge a few days ago. She was on cephalosporin though clearly now has pneumonia. Will add in Levaquin for lung coverage. No evidence ACS at this time. With findings I do not feel that emergent CT A indicated at this time. She is sat'ing OK on her normal 4 L NC at this time though with other findings meets hospitalization criteria. Impression: Sepsis, right lower lobe pneumonia, acute back pain Markus Lowe MD The [facility] documentation has been prepared under my direction and personally reviewed by me in its entirety. I confirm that the note above accurately reflects all work, treatment, procedures, and medical decision making performed by me. Impression & Plan Sepsis, Pneumonia, Acute back pain Past Med/Surg History Medical History Chronic anemia (Chronic) Diarrhea DVT prophylaxis Diastolic CHF, chronic (Chronic) Acute bronchitis COPD exacerbation GERD (gastroesophageal reflux disease) (Chronic) Depression (Chronic) Myocardial infarction (Chronic) "per patient, details unknown" COPD (chronic obstructive pulmonary disease) (Chronic) Paroxysmal a-fib (Chronic) HTN (hypertension) (Chronic) Dyslipidemia (Chronic) EVONNE (iron deficiency anemia) (Chronic) CKD (chronic kidney disease), stage IV (Chronic) Asthma (Chronic) Lumbar spinal stenosis (Chronic) Morbid obesity (Chronic) Obesity hypoventilation syndrome (Chronic) Chronic respiratory failure (Chronic) Surgical History S/P cervical spinal fusion (Chronic) History of appendectomy (Chronic) Hx of cholecystectomy (Chronic) S/P wrist surgery (Chronic) 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) Family History Father Trauma Mother Diabetes Cerebral aneurysm Daughter Bipolar 1 disorder Social History Preferred Language: Khmer Communication Ability: Effective Beliefs That Will Affect Care: None marital status: Current Living Situation: Family Current Living Situation Comment: lives with dtr Feels Safe at Home: Yes Smoking Status: Former smoker Hx Alcohol Use: No Hx Substance Use: No Results & Data Vital Signs Vital Signs - 24 hr 12/10/18 04:56 12/10/18 05:12 12/10/18 05:22 Temperature 37.1 C Temperature Source Oral Sepsis Recent Fever Within 48 Hours No Sepsis New/Unexplained Change in Mental Status No Sepsis Action Taken by Nursing No Action Required Pulse Rate 87 Pulse Rate [Right Finger] 88 86 Pulse Rhythm Regular Pulse Rhythm [Right Finger] Regular Pulse Strength Normal Pulse Strength [Right Finger] Normal Respiratory Rate 20 24 20 Respiratory Effort / Characteristics Non-Labored Non-Labored Non-Labored Respiratory Depth Normal Normal Respiratory Pattern Regular Regular Blood Pressure 154/45 H Blood Pressure [Left Arm] 127/58 L Blood Pressure Mean 81 Blood Pressure Mean [Left Arm] 81 Blood Pressure Position Lying Blood Pressure Position [Left Arm] Lying Pulse Oximetry 97 96 98 Oxygen Delivery Method Nasal Cannula Nasal Cannula Nasal Cannula Oxygen Flow Rate 4 4 4 12/10/18 06:00 12/10/18 07:19 Temperature Temperature Source Sepsis Recent Fever Within 48 Hours Sepsis New/Unexplained Change in Mental Status Sepsis Action Taken by Nursing Pulse Rate Pulse Rate [Right Finger] 89 85 Pulse Rhythm Pulse Rhythm [Right Finger] Regular Pulse Strength Pulse Strength [Right Finger] Normal Respiratory Rate 20 22 Respiratory Effort / Characteristics Non-Labored Non-Labored Spontaneous Respiratory Depth Normal Normal Respiratory Pattern Regular Blood Pressure Blood Pressure [Left Arm] 127/58 L 183/56 H Blood Pressure Mean Blood Pressure Mean [Left Arm] 81 98 Blood Pressure Position Blood Pressure Position [Left Arm] Lying Lying Pulse Oximetry 98 98 Oxygen Delivery Method Nasal Cannula Nasal Cannula Oxygen Flow Rate 4 4 Home Medications Current Medication List: was personally reviewed by me Laboratory Data Attestation: I reviewed the patient's lab results. Result diagrams: 12/10/18 05:14 12/10/18 05:51 Lab Results 12/10/18 12/10/18 12/10/18 Range/Units 05:14 05:14 05:14 WBC 26.17 H (4.8-10.8) K/uL RBC 3.03 L (4.2-5.4) M/uL Hgb 9.1 L (12.0-16.0) g/dL Hct 30.5 L (37-47) % MCV 100.7 H (80-100) fL MCH 30.0 (25-34) pg MCHC 29.8 L (32-36) g/dL RDW Std Deviation 56.0 H (36.4-46.3) fL RDW Coeff of Arabella 15.2 H (11.5-14.5) % Plt Count 181 (130-400) K/uL MPV 11.1 H (7.4-10.4) fL Immature Gran % (Auto) 0.7 % Neut % (Auto) 83.1 % Lymph % (Auto) 8.6 % [place] % (Auto) 5.9 % Eos % (Auto) 1.6 % Baso % (Auto) 0.1 % Immature Gran # (Auto) 0.18 H (0.00-0.02) K/uL Neut # (Auto) 21.76 H (1.4-6.5) K/uL Lymph # (Auto) 2.25 (1.2-3.4) K/uL [place] # (Auto) 1.54 H (0.11-0.59) K/uL Eos # (Auto) 0.42 (0-0.5) K/uL Baso # (Auto) 0.02 (0-0.2) K/uL Platelet Estimate Normal (Normal) PT Cancelled INR Cancelled Sodium 138 (136-145) mmol/L Potassium (3.5-5.1) mmol/L Chloride 103 (98-107) mmol/L Carbon Dioxide 35 H (21-32) mmol/L Anion Gap 0 L (3-11) BUN 43 H (7-18) mg/dl Creatinine 1.32 H (0.6-1.2) mg/dl Est Cr Clr Drug Dosing 51.4 ml/min Est GFR ( Amer) 47.3 Est GFR (Non-Af Amer) 40.8 BUN/Creatinine Ratio 32.6 H (10-20) Glucose 96 (70-99) mg/dl Lactate (0.4-2.0) mmol/L Calcium 9.2 (8.5-10.1) mg/dl Magnesium (1.8-2.4) mg/dl Troponin I < 0.015 (0-0.045) ng/ml Urine Color Urine Appearance (Clear) Urine pH (4.5-7.5) Ur Specific [place] (1.000-1.030) Urine Protein (Negative) Urine Glucose (UA) (Negative) Urine Ketones (Negative) Urine Blood (Negative) Urine Nitrite (Negative) Urine Bilirubin (Negative) Urine Urobilinogen (Negative) Ur Leukocyte Esterase (Negative) Urine WBC (Auto) (0-5) /hpf Urine RBC (Auto) (0-4) /hpf U Hyaline Cast (Auto) (0-5) /lpf U Epithel Cells (Auto) (0-5) /lpf Urine Bacteria (Auto) (Negative) 0612/10/18 12/10/18 Range/Units 05:51 05:51 06:23 WBC (4.8-10.8) K/uL RBC (4.2-5.4) M/uL Hgb (12.0-16.0) g/dL Hct (37-47) % MCV (80-100) fL MCH (25-34) pg MCHC (32-36) g/dL RDW Std Deviation (36.4-46.3) fL RDW Coeff of Arabella (11.5-14.5) % Plt Count (130-400) K/uL MPV (7.4-10.4) fL Immature Gran % (Auto) % Neut % (Auto) % Lymph % (Auto) % [place] % (Auto) % Eos % (Auto) % Baso % (Auto) % Immature Gran # (Auto) (0.00-0.02) K/uL Neut # (Auto) (1.4-6.5) K/uL Lymph # (Auto) (1.2-3.4) K/uL [place] # (Auto) (0.11-0.59) K/uL Eos # (Auto) (0-0.5) K/uL Baso # (Auto) (0-0.2) K/uL Platelet Estimate (Normal) PT 10.5 INR 1.0 Sodium (136-145) mmol/L Potassium 4.9 (3.5-5.1) mmol/L Chloride (98-107) mmol/L Carbon Dioxide (21-32) mmol/L Anion Gap (3-11) BUN (7-18) mg/dl Creatinine (0.6-1.2) mg/dl Est Cr Clr Drug Dosing ml/min Est GFR ( Amer) Est GFR (Non-Af Amer) BUN/Creatinine Ratio (10-20) Glucose (70-99) mg/dl Lactate 0.6 (0.4-2.0) mmol/L Calcium (8.5-10.1) mg/dl Magnesium 1.7 L (1.8-2.4) mg/dl Troponin I (0-0.045) ng/ml Urine Color Urine Appearance (Clear) Urine pH (4.5-7.5) Ur Specific [place] (1.000-1.030) Urine Protein (Negative) Urine Glucose (UA) (Negative) Urine Ketones (Negative) Urine Blood (Negative) Urine Nitrite (Negative) Urine Bilirubin (Negative) Urine Urobilinogen (Negative) Ur Leukocyte Esterase (Negative) Urine WBC (Auto) (0-5) /hpf Urine RBC (Auto) (0-4) /hpf U Hyaline Cast (Auto) (0-5) /lpf U Epithel Cells (Auto) (0-5) /lpf Urine Bacteria (Auto) (Negative) 12/10/18 Range/Units 06:36 WBC (4.8-10.8) K/uL RBC (4.2-5.4) M/uL Hgb (12.0-16.0) g/dL Hct (37-47) % MCV (80-100) fL MCH (25-34) pg MCHC (32-36) g/dL RDW Std Deviation (36.4-46.3) fL RDW Coeff of Arabella (11.5-14.5) % Plt Count (130-400) K/uL MPV (7.4-10.4) fL Immature Gran % (Auto) % Neut % (Auto) % Lymph % (Auto) % [place] % (Auto) % Eos % (Auto) % Baso % (Auto) % Immature Gran # (Auto) (0.00-0.02) K/uL Neut # (Auto) (1.4-6.5) K/uL Lymph # (Auto) (1.2-3.4) K/uL [place] # (Auto) (0.11-0.59) K/uL Eos # (Auto) (0-0.5) K/uL Baso # (Auto) (0-0.2) K/uL Platelet Estimate (Normal) PT INR Sodium (136-145) mmol/L Potassium (3.5-5.1) mmol/L Chloride (98-107) mmol/L Carbon Dioxide (21-32) mmol/L Anion Gap (3-11) BUN (7-18) mg/dl Creatinine (0.6-1.2) mg/dl Est Cr Clr Drug Dosing ml/min Est GFR ( Amer) Est GFR (Non-Af Amer) BUN/Creatinine Ratio (10-20) Glucose (70-99) mg/dl Lactate (0.4-2.0) mmol/L Calcium (8.5-10.1) mg/dl Magnesium (1.8-2.4) mg/dl Troponin I (0-0.045) ng/ml Urine Color Yellow Urine Appearance Clear (Clear) Urine pH 5.0 (4.5-7.5) Ur Specific [place] 1.017 (1.000-1.030) Urine Protein Negative (Negative) Urine Glucose (UA) Negative (Negative) Urine Ketones Negative (Negative) Urine Blood Negative (Negative) Urine Nitrite Negative (Negative) Urine Bilirubin Negative (Negative) Urine Urobilinogen Negative (Negative) Ur Leukocyte Esterase 1+ H (Negative) Urine WBC (Auto) 1-5 (0-5) /hpf Urine RBC (Auto) 0-4 (0-4) /hpf U Hyaline Cast (Auto) 1-5 (0-5) /lpf U Epithel Cells (Auto) >30 H (0-5) /lpf Urine Bacteria (Auto) Negative (Negative) Administered Medications Discontinued Medications Albuterol (Duoneb) 3 ml NEB NOW STA Stop: 12/10/18 05:00 Last Admin: 12/10/18 05:09 Dose: 3 ml Documented by: [id number] Fentanyl Citrate (Fentanyl Citrate) 25 mcg IV NOW STA Stop: 12/10/18 04:59 Last Admin: 12/10/18 05:22 Dose: 25 mcg Documented by: [id number] Levofloxacin/Dextrose (Levaquin/D5w) 750 mg in 150 mls @ 100 mls/hr IV NOW STA Stop: 12/10/18 07:28 Last Admin: 12/10/18 06:29 Dose: 100 mls/hr Documented by: [id number] Discharge Plan Visit Data Chief Complaint: Back Injury/Pain Stated Complaint: BACK PAIN/FEVER ED Provider: Markus Lowe Discharge Problem: Sepsis, Pneumonia, Acute back pain Patient Disposition: Being Evaluated by Hospitalist Forms Stand Alone Forms: [facility] Prescriptions Prescriptions: No Action Breo Ellipta 200-25 mcg/dose Blister With Device 1 inh INHALATION DAILY RF: 0 multivitamin Tablet 1 tab PO DAILY RF: 0 losartan 50 mg Tablet 50 mg PO DAILY RF: 0 metolazone 2.5 mg Tablet 2.5 mg PO MOFR RF: 0 propafenone 150 mg Tablet 150 mg PO Q8H RF: 0 prednisone 10 mg Tablet 10 mg PO QAM RF: 0 gabapentin 600 mg Tablet 600 mg PO TID RF: 0 atorvastatin 20 mg Tablet 20 mg PO QPM RF: 0 metoprolol succinate 50 mg Tablet Extended Release 24 Hr 50 mg PO DAILY RF: 0 aspirin [Aspir-81] 81 mg Tablet,Delayed Release (Dr/Ec) 81 mg PO DAILY RF: 0 triamcinolone acetonide 0.1 % Cream 1 applic TOPICAL BID PRN (Reason: Skin Irritation) RF: 0 levothyroxine 88 mcg Tablet 88 mcg PO DAILYBB RF: 0 ranitidine HCl 150 mg Tablet 150 mg PO BID RF: 0 sertraline [Zoloft] 25 mg Tablet 25 mg PO DAILY RF: 0 omeprazole 20 mg Capsule,Delayed Release(Dr/Ec) 20 mg PO DAILYBB RF: 0 bumetanide 1 mg Tablet 1 mg PO BID RF: 0 allopurinol 300 mg Tablet 300 mg PO DAILY RF: 0 cholecalciferol (vitamin D3) [Vitamin D3] 2,000 unit Tablet 2,000 unit PO QAM RF: 0 Lactinex 1 million cell Tablet,Chewable 1 tab PO TIDM RF: 0 Daliresp 500 mcg Tablet 500 mcg PO DAILY RF: 0 potassium chloride 20 mEq Tablet Extended Release 20 meq PO Q OTHER DAY RF: 0 meloxicam [Mobic] 15 mg Tablet 15 mg PO DAILY RF: 0 acetaminophen [Tylenol] 325 mg Capsule 650 mg PO Q4 PRN (Reason: Fever Or Pain) RF: 0 albuterol sulfate 2.5 mg /3 mL (0.083 %) Solution For Nebulization 2.5 mg INHALATION Q6 PRN (Reason: Shortness Of Breath Or Wheezing) RF: 0 prednisone 10 mg tablet 10 mg PO UD Qty: 18 RF: 0 Referrals Referrals: Babak Melendez MD [Primary Care Provider] - Discharge Problem: Sepsis Qualifiers: Sepsis type: sepsis due to unspecified organism Qualified Code(s): A41.9 - Sepsis, unspecified organism Pneumonia Qualifiers: Pneumonia type: due to unspecified organism Laterality: right Lung location: lower lobe of lung Qualified Code(s): J18.1 - Lobar pneumonia, unspecified organism Acute back pain Qualifiers: Back pain location: low back pain Back pain laterality: midline Sciatica presence: without sciatica Qualified Code(s): M54.5 - Low back pain The scribe's documentation has been prepared under my direction and personally reviewed by me in its entirety. I confirm that the note above accurately reflects all work, treatment, procedures, and medical decision making performed by me.
[2018-12-10] MEDS ORDERED: VANCOMYCIN CONSULT ACTIVE PRN (07:57)
[2018-12-10] MEDS ORDERED: TRIAMCINOLONE ACET 0.1% CR 15 GM TUBE TOP PRN (07:57)
[2018-12-10] MEDS ORDERED: LEVOFLOXACIN/D5W 750 MG/150 ML BAG IV SCH (07:57)
[2018-12-10] MEDS ORDERED: POLYETHYLENE (MIRALAX) 17 GM PACK PO PRN (07:57)
[2018-12-10] MEDS ORDERED: VANCOMYCIN HCL 1,000 MG in SODIUM CHLORIDE 0.9% 250 ML IV SCH (07:57)
[2018-12-10] MEDS ORDERED: NITROGLYCERIN SL 0.4 MG/TAB TAB SL PRN (07:57)
[2018-12-10] MEDS ORDERED: ONDANSETRON INJ 2 MG/ML 2 ML VIAL IV PRN (07:57)
[2018-12-10] MEDS ORDERED: XOPENEX/ATROVENT 1.25mg/0.5MG NEB COMBO NEB SCH (08:00)
[2018-12-10] MEDS ORDERED: LEVOFLOXACIN CONSULT ACTIVE PRN (08:21)
[2018-12-10] MEDS ORDERED: VANCOMYCIN HCL 2,750 MG in SODIUM CHLORIDE 0.9% 500 ML IV ONE (08:30)
[2018-12-10] MEDS: methylPREDNISolone 40 MG in SYRINGE 0 ML IV SCH ×3 (09:02→20:58)
[2018-12-10] MEDS: ASPIRIN 81 MG ECTAB PO SCH (09:04)
[2018-12-10] MEDS: GABAPENTIN 600 MG TAB PO SCH ×3 (09:04→20:59)
[2018-12-10] MEDS: MELOXICAM 7.5 MG TAB PO SCH (09:05)
[2018-12-10] MEDS: ALLOPURINOL 300 MG TAB PO SCH (09:05)
[2018-12-10] MEDS: PANTOprazole 40 MG TAB PO SCH (09:05)
[2018-12-10] MEDS: CHOLECALCIFEROL 1,000 UNITS TAB PO SCH (09:05)
[2018-12-10] MEDS: SERTRALINE HCL 50 MG TABLET PO SCH (09:05)
[2018-12-10] MEDS: MULTIVITAMIN TAB PO SCH (09:05)
[2018-12-10] MEDS: LACTOBACILLUS ACIDOPHILUS (FLORANEX) TAB PO SCH ×3 (09:05→16:52)
[2018-12-10] MEDS: LOSARTAN POTASSIUM 50 MG TAB PO SCH (09:06)
[2018-12-10] MEDS: METOPROLOL SUCC 50MG EXT REL TAB PO SCH (09:06)
[2018-12-10] MEDS: BUMETANIDE 1 MG TAB PO SCH ×2 (09:06→16:52)
[2018-12-10] MEDS ORDERED: PNEUMOCOCCAL POLYSACCHARIDES 25 MCG/0.5 ML VIAL/SYR IM ONE (09:30)
[2018-12-10] MEDS ORDERED: PNEUMOCOCCAL ADMINISTRATION CHARGE ONE (09:30)
--- NOTE | 2018-12-10 10:57 | Pharmacy Report ---
Pharmacy Abx Initial Consult - Date of Service December 10, 2018 - Pharmacy Dosing Scope Date of Consult: 12/10/18 Consultation requested by: Dr. Frias Pharmacy is consulted to initiate Vancomycin and Levaquin IV dosing therapy, order appropriate labs and adjust drug dose/frequency. - Subjective The patient is a 68 year old F admitted on 12/10/18 06:54. - Objective Height: 5 ft 4 in Weight: 116.2 kg Vital Signs (Past 12hrs): Vital Signs Temp Pulse Pulse Resp BP BP Pulse Ox 12/10/18 10:04 85 12/10/18 07:35 37.1 C 85 21 115/74 97 12/10/18 07:19 85 22 183/56 H 98 12/10/18 06:00 89 20 127/58 L 98 12/10/18 05:22 86 20 127/58 L 98 12/10/18 05:12 88 24 96 12/10/18 04:56 37.1 C 87 20 154/45 H 97 Lab Results (24hrs): Laboratory Tests (24 Hours) 12/10/18 12/10/18 05:14 05:14 WBC 26.17 H Neut # (Auto) 21.76 H Creatinine 1.32 H Est Cr Clr Drug Dosing 51.4 Micro Results: 12/10/18 06:14 Aerobic Blood Culture - Pending Blood Anaerobic Blood Culture - Pending 12/10/18 06:23 Aerobic Blood Culture - Pending Blood Anaerobic Blood Culture - Pending - Risk Factors for Resistance * Hospitalization for 48 hours or more within the past 90 days * Admitted 11/28 for SOB * Antimicrobial use within the last 90 days: Rocephin, Ceftin during 11/28 admission. - Assessment & Plan Assessment 68 year old F with CHF, COPD and CKD stage IV admitted 12/10 for back pain and SOB. * Baseline SCr appears to be ~1.2mg/dL. Currently elevated at 1.32 mg/dL. * Blood cultures pending * MRSA nasal swab pending. Plan Vancomycin and Levaquin for treatment of pneumonia. Vancomycin IV * Estimated PK Parameters: Vd 0.6 L/kg, Shaheen 0.046 hr-1, t1/2 15 hr * Loading dose: 2750 mg (24 mg/kg) * Maintenance dose: 1500 mg IV (13 mg/kg) every 18 hours * Goal trough level for pneumonia : 15 to 20 mcg/mL * Trough/Random level ordered for 12/12/18 @1130 * A less than traditional dose has been selected due to likelihood of drug accumulation in obese patient/patient with h/o CKD. Dosing interval is rather aggressive to ensure proper drug concentrations. This may need extended after steady state is reached. Levaquin * 750mg IV q 24 hours for crcl>50 mL/min Pharmacy will continue to follow and will adjust dose/frequency as necessary. Thank you.
[2018-12-10] MEDS: PROPAFENONE HCL 150 MG TABLET PO SCH ×3 (11:16→21:01)
[2018-12-10] MEDS: ROFLUMILAST 500 MCG TAB PO SCH (11:17)
--- NOTE | 2018-12-10 11:29 | History and Physical Report ---
DATE OF ADMISSION: 12/10/2018 CHIEF COMPLAINT: Back pain, chills and found to have pneumonia. HISTORY OF PRESENT ILLNESS: This is a 68-year-old female with past medical history significant for severe COPD, chronic respiratory failure on 4 liters oxygen all the time, hyperlipidemia, hypothyroidism, Afib, not on anticoagulant secondary to history of GI bleeding and hematoma, right-sided heart failure, hypertension, chronic kidney disease stage III-IV, iron deficiency anemia, spinal stenosis, depression with anxiety, was recently in the hospital for COPD exacerbation, comes back because of with severe back pain and feeling subjective fevers and chills. Shortness of breath is same. She still has cough with bringing a lot of yellowish phlegm. In the ER, she was found to have leukocytosis and chest x-ray showed right lower lobe pneumonia and we are called for admission. Currently, resting comfortable and hemodynamically stable. She has on and off headaches, but currently no headache. Denies any dizziness, no blurred vision, no difficulty swallowing. Appetite is okay. No chest pain, no nausea, no abdominal pain. Normal bowel and bladder movements. Denies any blood in the stools or black stools. No hematuria or burning micturition. No swelling of the legs. She lives with her daughter. ALLERGIES: ADHESIVES, LATEX, MORPHINE. PAST MEDICAL HISTORY: As mentioned above. PAST SURGICAL HISTORY: Colonoscopy, neck fusion surgery, appendectomy, cholecystectomy, right wrist fracture internal fixation, right shoulder replacement, right hip replacement. MEDICATIONS: The patient was recently discharged on prednisone taper, Breo Ellipta one inhalation daily, multivitamin daily, losartan 50 mg daily, metolazone 2.5 mg p.o. on Wednesday and Wednesday, propafenone 150 mg p.o. q. 8 hours, prednisone 10 mg p.o. a.m., gabapentin 600 mg p.o. t.i.d., atorvastatin 20 mg p.o. q.p.m., Toprol-XL 50 mg p.o. daily, aspirin 81 mg p.o. daily, triamcinolone topically b.i.d. p.r.n., levothyroxine 88 mcg p.o. daily, Zantac 150 mg p.o. b.i.d., Zoloft 25 mg p.o. daily, omeprazole 20 mg p.o. daily, Bumex 1 mg p.o. b.i.d., allopurinol 300 mg p.o. daily, vitamin D 2000 units p.o. daily, Lactinex 1 tablet p.o. t.i.d., Daliresp 500 mcg daily, potassium chloride 20 mEq p.o. daily, meloxicam 50 mg p.o. daily, Tylenol 650 mg p.o. q. 4 hours p.r.n., albuterol nebulization q. 6 hours p.r.n. FAMILY HISTORY: Significant for: Mother at age of 58 from diabetes and CAD. Father at age of 50. Sister has MS. SOCIAL HISTORY: . Lives with her daughter. Quit smoking in 2009. Prior to that, smoked half pack a day for 35 years. No alcohol use, no drug use. REVIEW OF SYMPTOMS: As per HPI. Rest of review of systems is negative. PHYSICAL EXAMINATION: GENERAL: The patient is morbidly obese, not in acute distress. VITAL SIGNS: Temperature 37.1, pulse 85, respiratory rate 21, blood pressure 115/74, oxygen 97% on 4 liters. HEENT: No pallor, no icterus. Pupils equal, round, reactive to light. NECK: No JVD or neck masses, no carotid bruits. CARDIOVASCULAR: S1, S2 heard, regular rate and rhythm, no murmur, no gallop. RESPIRATORY SYSTEM: Normal AP diameter. Bilateral diminished breath sounds. No wheezing, no crackles. ABDOMEN: Soft, bowel sounds present. Mild diffuse discomfort. No guarding, no rigidity. No distention. CENTRAL NERVOUS SYSTEM: Cranial nerves II-XII grossly intact. Nonfocal. EXTREMITIES: No edema, no erythema. LABORATORY DATA: WBC 26, hemoglobin 9.1, hematocrit 30.5, platelets 181. PT 10.5, INR 1. Sodium 138, potassium 4.9, chloride 103, bicarbonate 35, BUN 43, creatinine 1.3, serum glucose 96. Lactate 0.6, calcium 9.2, magnesium 1.7. Troponin I less than 0.015. Urinalysis positive for leukocyte esterase. Lumbar spine x-ray, no fractures identified. Chest x-ray, developing peripheral right lung airspace opacities, age indeterminate fracture of the right sixth rib. There was congestive opacity in the left lung base, mild pulmonary vascular congestion. EKG shows normal sinus rhythm with rate of 86, no acute ST changes seen. No significant change from previous EKG. ASSESSMENT AND PLAN: This is a 68-year-old female who presents with back pain, feeling chills and cough and found to have pneumonia. 1. Pneumonia, bibasilar, more in the right side, recently was in the hospital. We will treat her as healthcare-associated pneumonia. We will place her on IV Levaquin, IV vancomycin. We will follow sputum culture, blood cultures and follow the response. Closely monitor in the tele floor. 2. Chronic obstructive pulmonary disease exacerbation, probably secondary to above. Chronic respiratory failure On home oxygen 4lts.We will continue her home inhalers and nebs around the clock, Solu-Medrol 40 mg t.i.d. and antibiotics as above. Follow the response. 3. Chronic kidney disease stage III-IV, creatinine seems to be at baseline at 1.3. We will follow the labs. 4. Hypomagnesemia. We will replace. 5. Chronic anemia. Hemoglobin 9.1 around baseline. We will follow the labs. 6. History of paroxysmal atrial fibrillation, on Toprol-XL and propafenone. Rate is under control, not on anticoagulant secondary to GI bleed and hematoma. 7. Hypertension, on losartan, metoprolol and diuretics. We will monitor the blood pressure. 8. Chronic diastolic congestive heart failure, right-sided heart failure, on metolazone, Bumex. We will monitor for any volume overload. 9. Depression, on Zoloft. 10. Hyperlipidemia, on statin. 11. Back opain. Xray unremarkable. If persistent we may get ct scan. 12. Deep venous thrombosis prophylaxis. We will place on subcu heparin. 13. Code status: Level 1 full code. 14. Disposition: Admit to tele floor. PT and OT prior to discharge. Social Service to help with discharge planning. QUANG
[2018-12-10] MEDS: ACETAMINOPHEN 325 MG TAB PO PRN ×2 (12:27→21:12)
[2018-12-10] MEDS: HEPARIN SOD 5,000 UNIT/0.5 ML VIAL SQ SCH ×2 (14:10→21:01)
[2018-12-10] MEDS: IPRATROPIUM BROMIDE NEB SOLN 0.02% 2.5 ML VIAL INH SCH ×2 (14:16→19:15)
[2018-12-10] MEDS: LEVALBUTEROL 1.25MG/0.5ML NEB INH SCH ×2 (14:16→19:15)
[2018-12-10] MEDS: ATORVASTATIN 20 MG TAB PO SCH (20:58)
[2018-12-11] MEDS: VANCOMYCIN HCL 1,500 MG in SODIUM CHLORIDE 0.9% 500 ML IV SCH ×2 (00:12→17:01)
[2018-12-11] MEDS: LEVALBUTEROL 1.25MG/0.5ML NEB INH SCH ×4 (01:50→19:23)
[2018-12-11] MEDS: IPRATROPIUM BROMIDE NEB SOLN 0.02% 2.5 ML VIAL INH SCH ×4 (01:50→19:23)
[2018-12-11] MEDS ORDERED: COUGH DROP (SUGAR FREE) LOZ 24 LOZ/1 BOX BUCCAL PRN (05:29)
[2018-12-11] MEDS: LEVOFLOXACIN/D5W 750 MG/150 ML BAG IV SCH (05:35)
[2018-12-11] MEDS: HEPARIN SOD 5,000 UNIT/0.5 ML VIAL SQ SCH ×3 (05:35→21:15)
[2018-12-11] MEDS: PROPAFENONE HCL 150 MG TABLET PO SCH ×3 (05:35→21:15)
[2018-12-11] MEDS: PANTOprazole 40 MG TAB PO SCH (05:35)
[2018-12-11] MEDS: LEVOTHYROXINE SODIUM 88 MCG TABLET PO SCH (05:36)
[2018-12-11 05:57] LABS: Basophils # (auto) 0.01 K/uL (0-0.2); Basophils % (auto) 0.1 %; Hematocrit (blood only) 27.4 % (37-47); Hemoglobin 8.4 g/dL (12.0-16.0); Immature Granulocytes # (auto) 0.12 K/uL (0.00-0.02); Immature Granulocytes % (auto) 0.6 %; Lymphocytes # (auto) 0.59 K/uL (1.2-3.4); Lymphocytes % (auto) 3.1 %; Mean Corpuscular Hgb Conc 30.7 g/dL (32-36); Mean Corpuscular Volume 98.6 fL (80-100); Mean Platelet Volume 9.1 fL (7.4-10.4); Monocytes # (auto) 0.21 K/uL (0.11-0.59); Monocytes % (auto) 1.1 %; Neutrophils % (auto) 95.1 %; Platelet Count 208 K/uL (130-400); RDW Coefficient of Variation 14.3 % (11.5-14.5); Red Blood Count 2.78 M/uL (4.2-5.4); White Blood Count 19.03 K/uL (4.8-10.8)
[2018-12-11 06:28] LABS: Calcium 9.2 mg/dl (8.5-10.1); Creatinine Clr Calc Pharmacy 44.9 ml/min; Est GFR (African American) 41.8; Est GFR (Non-African American) 36.1; Magnesium 1.8 mg/dl (1.8-2.4); Potassium 5.2 mmol/L (3.5-5.1)
[2018-12-11] MEDS: GABAPENTIN 600 MG TAB PO SCH ×3 (07:31→20:06)
[2018-12-11] MEDS: methylPREDNISolone 40 MG in SYRINGE 0 ML IV SCH ×3 (07:31→20:05)
[2018-12-11] MEDS: MULTIVITAMIN TAB PO SCH (07:32)
[2018-12-11] MEDS: CHOLECALCIFEROL 1,000 UNITS TAB PO SCH (07:32)
[2018-12-11] MEDS: ASPIRIN 81 MG ECTAB PO SCH (07:32)
[2018-12-11] MEDS: METOPROLOL SUCC 50MG EXT REL TAB PO SCH (07:32)
[2018-12-11] MEDS: BUMETANIDE 1 MG TAB PO SCH ×2 (07:33→17:01)
[2018-12-11] MEDS: LACTOBACILLUS ACIDOPHILUS (FLORANEX) TAB PO SCH ×3 (07:33→17:01)
[2018-12-11] MEDS: SERTRALINE HCL 50 MG TABLET PO SCH (07:34)
[2018-12-11] MEDS: LOSARTAN POTASSIUM 50 MG TAB PO SCH (07:34)
[2018-12-11] MEDS: MELOXICAM 7.5 MG TAB PO SCH (07:34)
[2018-12-11] MEDS: ALLOPURINOL 300 MG TAB PO SCH (07:34)
[2018-12-11] MEDS: ROFLUMILAST 500 MCG TAB PO SCH (07:36)
[2018-12-11] MEDS ORDERED: POTASSIUM CHLORIDE 20 MEQ TABCR PO SCH (09:00)
[2018-12-11] MEDS: ACETAMINOPHEN 325 MG TAB PO PRN ×2 (15:29→23:56)
[2018-12-11] MEDS: ATORVASTATIN 20 MG TAB PO SCH (20:06)
--- NOTE | 2018-12-11 21:51 | Hospitalist Progress Note ---
Date of Service December 11, 2018 Assessment & Plan (1) Pneumonia: Presented with cough and SOB. Chest x-ray showed bibasilar infiltrates. Health-care associated pneumonia. Nasal MRSA swab +. Did not meet criteria for sepsis (had leukocytosis, but tachypnea secondary to COPD + pneumonia, not sepsis). Blood cultures and sputum culture obtained. Receiving IV levofloxacin and vancomycin. (2) COPD exacerbation: Secondary to pneumonia. Continue O2, steroids, nebs. (3) Chronic respiratory failure with hypoxia, on home O2 therapy: Continue supplemental O2. (4) Diastolic CHF, chronic: Compensated. Continue diuretics. (5) Paroxysmal a-fib: Currently in NSR. Continue metoprolol. No long-term anticoagulants because of hemorrhagic complications in past. (6) HTN (hypertension): Continue metoprolol, losartan, diuretics. (7) CKD (chronic kidney disease), stage IV: Serum creatinine today = 1.46. Follow. (8) Anemia: Chronic anemia with baseline Hgb around 9. Probably has anemia of CKD. Hgb at time of admission was 9.1. Hgb today = 8.4. No gross GI bleeding. Follow. (9) DVT prophylaxis: SQ heparin. (10) Discharge planning issues: Anticipated discharge to home. Family Medicine follow-up with Dr. Melendez. Subjective Recheck for pneumonia and other problems. Patient seen in her room around 1440. Feels slightly better today. Persistent cough productive of yellow sputum. Dyspneic with minimal exertion. Chest discomfort with coughing. Review of Systems: Constitutional- no fever. Cardiac- no angina. Pulmonary- as noted above. GI- no nausea, vomiting, diarrhea, melena, hematochezia. - no urinary symptoms. Otherwise, as noted above. Physical Exam Constitutional: no acute distress Respiratory: no respiratory distress Auscultation: + rhonchi (scattered, bilat) and + wheezes (diffuse, moderate) Cardiovascular: Rate/Rhythm: regular rate and regular rhythm Heart Sounds: no gallop, no murmur and no cardiac rub Vessels: + JVD Extremities: + edema (trace pretibial); no calf tenderness Gastrointestinal (Abdomen): normal bowel sounds, soft, nontender, no hepatosplenomegaly Skin: no rashes, warm and dry Psychiatric: Orientation: alert and oriented x 3 Results & Data Vital Signs (Past 12 Hours) Vital Signs Temp Pulse Resp BP Pulse Ox 12/11/18 20:11 36.9 C 72 20 145/54 H 98 12/11/18 19:24 73 16 94 12/11/18 15:18 36.8 C 71 23 149/55 H 96 12/11/18 14:27 71 16 97 12/11/18 11:12 36.9 C 75 20 140/59 L 97 Laboratory Results Short CBC 12/11/18 Range/Units 05:14 WBC 19.03 H (4.8-10.8) K/uL Hgb 8.4 L (12.0-16.0) g/dL Hct 27.4 L (37-47) % Plt Count 208 (130-400) K/uL BMP 12/11/18 05:14 Sodium 138 Potassium 5.2 H Chloride 101 Carbon Dioxide 37 H BUN 50 H Creatinine 1.46 H Glucose 169 H Calcium 9.2 (1) Pneumonia Laterality: right Lung location: lower lobe of lung Pneumonia type: due to unspecified organism Qualified Code(s): J18.1 - Lobar pneumonia, unspecified organism
[2018-12-12] MEDS: IPRATROPIUM BROMIDE NEB SOLN 0.02% 2.5 ML VIAL INH SCH ×4 (01:44→19:32)
[2018-12-12] MEDS: LEVALBUTEROL 1.25MG/0.5ML NEB INH SCH ×4 (01:44→19:32)
[2018-12-12] MEDS: PROPAFENONE HCL 150 MG TABLET PO SCH ×3 (05:18→21:45)
[2018-12-12] MEDS: PANTOprazole 40 MG TAB PO SCH (05:20)
[2018-12-12] MEDS: LEVOFLOXACIN/D5W 750 MG/150 ML BAG IV SCH (05:20)
[2018-12-12] MEDS: HEPARIN SOD 5,000 UNIT/0.5 ML VIAL SQ SCH ×3 (05:20→21:46)
[2018-12-12] MEDS: LEVOTHYROXINE SODIUM 88 MCG TABLET PO SCH (05:22)
[2018-12-12] MEDS: CHOLECALCIFEROL 1,000 UNITS TAB PO SCH (07:13)
[2018-12-12] MEDS: GABAPENTIN 600 MG TAB PO SCH ×3 (07:14→21:45)
[2018-12-12] MEDS: LOSARTAN POTASSIUM 50 MG TAB PO SCH ×2 (07:14→08:41)
[2018-12-12] MEDS: LACTOBACILLUS ACIDOPHILUS (FLORANEX) TAB PO SCH ×3 (07:15→17:55)
[2018-12-12] MEDS: METOPROLOL SUCC 50MG EXT REL TAB PO SCH (07:15)
[2018-12-12] MEDS: ASPIRIN 81 MG ECTAB PO SCH (07:16)
[2018-12-12] MEDS: ALLOPURINOL 300 MG TAB PO SCH (07:16)
[2018-12-12] MEDS: BUMETANIDE 1 MG TAB PO SCH ×2 (07:16→17:54)
[2018-12-12] MEDS: MULTIVITAMIN TAB PO SCH (07:16)
[2018-12-12] MEDS: SERTRALINE HCL 50 MG TABLET PO SCH (07:17)
[2018-12-12] MEDS: MELOXICAM 7.5 MG TAB PO SCH (07:17)
[2018-12-12] MEDS: ROFLUMILAST 500 MCG TAB PO SCH (07:18)
[2018-12-12] MEDS: methylPREDNISolone 40 MG in SYRINGE 0 ML IV SCH ×3 (08:41→21:44)
[2018-12-12] MEDS ORDERED: metOLazone 2.5 MG TABLET PO SCH (09:00)
[2018-12-12] MEDS ORDERED: VANCOMYCIN TROUGH ONE (11:30)
[2018-12-12 12:01] LABS: BUN Creatinine Ratio 35.5 (10-20); Calcium 9.8 mg/dl (8.5-10.1); Creatinine Clr Calc Pharmacy 35.4 ml/min; Est GFR (Non-African American) 27.7; Potassium 5.7 mmol/L (3.5-5.1)
[2018-12-12] MEDS: VANCOMYCIN HCL 1,500 MG in SODIUM CHLORIDE 0.9% 500 ML IV SCH (12:11)
--- NOTE | 2018-12-12 13:49 | Pharmacy Report ---
Pharmacy Abx Dose Short Note - Date of Service December 12, 2018 - Assessment & Plan Assessment 68 year old F receiving vanc and levofloxacin for treatment of pneumonia. Renal function is noted to have declined. Will decrease dose and interval given CrCl, trough, and high BMI Day # 3/7 of antimicrobial therapy. Plan Vancomycin * Trough level of 23.3 mcg/mL is supratherapeutic. Last bag was stopped custodial through, thus patient received 750mg * Change to 1250 mg IV every 24 hours to start tomorrow * Goal trough level : 15 to 20 mcg/mL * Trough or random level ordered for: 12/15/18 @ 1130 Levofloxacin adjusted to 750mg IV Q48h starting 12/14 Pharmacy will continue to follow and will adjust dose/frequency as necessary. Thank you.
--- NOTE | 2018-12-12 20:22 | Hospitalist Progress Note ---
Date of Service December 12, 2018 Assessment & Plan (1) Pneumonia: Presented with cough and SOB. Chest x-ray showed bibasilar infiltrates. Health-care associated pneumonia. Nasal MRSA swab +. Did not meet criteria for sepsis (had leukocytosis, but tachypnea secondary to COPD + pneumonia, not sepsis). Blood cultures and sputum culture obtained. Receiving IV levofloxacin and vancomycin. Check follow-up EKG in a.m. to assess QTc. (2) COPD exacerbation: Secondary to pneumonia. Continue O2, steroids, nebs. Wean steroids as tolerated. (3) Chronic respiratory failure with hypoxia, on home O2 therapy: Continue supplemental O2. (4) Diastolic CHF, chronic: Compensated. Continue diuretics. (5) Paroxysmal a-fib: Currently in NSR. Continue metoprolol. No long-term anticoagulants because of hemorrhagic complications in past. (6) HTN (hypertension): Continue metoprolol, losartan, diuretics. (7) CKD (chronic kidney disease), stage IV: Serum creatinine today = 1.82. Follow. (8) Hyperkalemia: K today 5.7. Not receiving any potassium supplements. Hold losartan. Follow. (9) Anemia: Chronic anemia with baseline Hgb around 9. Probably has anemia of CKD. Hgb at time of admission was 9.1. Hgb yesterday = 8.4. No gross GI bleeding. Follow. (10) DVT prophylaxis: SQ heparin. (11) Discharge planning issues: Anticipated discharge to home. Family Medicine follow-up with Dr. Melendez. Subjective Recheck for pneumonia and other problems. Patient seen in her room around 1810. Feels better today. Out of bed in chair. Persistent cough productive of yellow sputum. Less SOB. Review of Systems: Constitutional- no fever. Cardiac- no angina. Pulmonary- as noted above. GI- no nausea, vomiting, diarrhea, melena, hematochezia. - no urinary symptoms. Otherwise, as noted above. Physical Exam Constitutional: no acute distress Respiratory: no respiratory distress Auscultation: + rhonchi (scattered, bilat) and + wheezes (diffuse, moderate, improved air movement) Cardiovascular: Rate/Rhythm: regular rate and regular rhythm Heart Sounds: no gallop, no murmur and no cardiac rub Vessels: + JVD Extremities: + edema (trace pretibial); no calf tenderness Gastrointestinal (Abdomen): normal bowel sounds, soft, nontender, no hepatosplenomegaly Skin: no rashes, warm and dry Psychiatric: Orientation: alert and oriented x 3 Results & Data Vital Signs (Past 12 Hours) Vital Signs Temp Pulse Resp BP BP Pulse Ox 12/12/18 19:39 36.7 C 79 18 130/87 98 12/12/18 19:32 75 16 98 12/12/18 15:47 37.1 C 78 18 163/70 H 97 12/12/18 14:07 77 18 98 12/12/18 11:47 37.0 C 71 24 165/73 H 98 Laboratory Results Laboratory Results - last 24 hr 12/12/18 12/12/18 11:28 11:28 Sodium 139 Potassium 5.7 H Chloride 101 Carbon Dioxide 36 H Anion Gap 3.0 BUN 65 H Creatinine 1.82 H D Est Cr Clr Drug Dosing 35.4 Est GFR ( Amer) 32.0 Est GFR (Non-Af Amer) 27.7 BUN/Creatinine Ratio 35.5 H Glucose 128 H Calcium 9.8 Vancomycin Trough 23.3 (1) Pneumonia Laterality: right Lung location: lower lobe of lung Pneumonia type: due to unspecified organism Qualified Code(s): J18.1 - Lobar pneumonia, unspecified organism
[2018-12-12] MEDS: ATORVASTATIN 20 MG TAB PO SCH (21:44)
[2018-12-13] MEDS: IPRATROPIUM BROMIDE NEB SOLN 0.02% 2.5 ML VIAL INH SCH ×4 (01:48→19:48)
[2018-12-13] MEDS: LEVALBUTEROL 1.25MG/0.5ML NEB INH SCH ×4 (01:48→19:48)
[2018-12-13] MEDS: methylPREDNISolone 20 MG in SYRINGE 0 ML IV SCH ×3 (06:22→21:42)
[2018-12-13] MEDS: PROPAFENONE HCL 150 MG TABLET PO SCH ×3 (06:22→21:40)
[2018-12-13] MEDS: LEVOTHYROXINE SODIUM 88 MCG TABLET PO SCH (06:22)
[2018-12-13] MEDS: PANTOprazole 40 MG TAB PO SCH (06:23)
[2018-12-13] MEDS: HEPARIN SOD 5,000 UNIT/0.5 ML VIAL SQ SCH ×3 (06:24→21:44)
[2018-12-13 07:57] LABS: Hematocrit (blood only) 28.6 % (37-47); Hemoglobin 8.7 g/dL (12.0-16.0)
[2018-12-13] MEDS: GABAPENTIN 600 MG TAB PO SCH ×3 (08:34→21:41)
[2018-12-13] MEDS: MULTIVITAMIN TAB PO SCH (08:34)
[2018-12-13] MEDS: ALLOPURINOL 300 MG TAB PO SCH (08:35)
[2018-12-13] MEDS: ASPIRIN 81 MG ECTAB PO SCH (08:35)
[2018-12-13] MEDS: SERTRALINE HCL 50 MG TABLET PO SCH (08:35)
[2018-12-13] MEDS: METOPROLOL SUCC 50MG EXT REL TAB PO SCH (08:35)
[2018-12-13] MEDS: LACTOBACILLUS ACIDOPHILUS (FLORANEX) TAB PO SCH ×3 (08:36→17:27)
[2018-12-13] MEDS: CHOLECALCIFEROL 1,000 UNITS TAB PO SCH (08:37)
[2018-12-13] MEDS: ROFLUMILAST 500 MCG TAB PO SCH (08:37)
[2018-12-13 08:40] LABS: BUN Creatinine Ratio 40.1 (10-20); Calcium 9.7 mg/dl (8.5-10.1); Creatinine Clr Calc Pharmacy 36.6 ml/min; Est GFR (African American) 33.8; Est GFR (Non-African American) 29.2; Potassium 4.7 mmol/L (3.5-5.1)
[2018-12-13] MEDS ORDERED: VANCOMYCIN HCL 1,250 MG in SODIUM CHLORIDE 0.9% 500 ML IV SCH (12:00)
[2018-12-13] MEDS ORDERED: VANCOMYCIN HCL 1,250 MG in SODIUM CHLORIDE 0.9% 250 ML IV SCH (12:00)
[2018-12-13] MEDS: BUMETANIDE 1 MG TAB PO SCH (17:27)
--- NOTE | 2018-12-13 17:30 | Hospitalist Progress Note ---
Date of Service December 13, 2018 Assessment & Plan (1) Pneumonia: Presented with cough and SOB. Chest x-ray showed bibasilar infiltrates. Health-care associated pneumonia. Nasal MRSA swab +. Did not meet criteria for sepsis (had leukocytosis, but tachypnea secondary to COPD + pneumonia, not sepsis). Blood cultures and sputum culture obtained. Receiving IV levofloxacin and vancomycin to cover for possible MRSA, Pseudomonas, and other pathogens. QTc OK. Change from vancomycin to doxycycline for MRSA coverage. Continue levofloxacin for 3 more days- transition to PO Rx. (2) COPD exacerbation: Secondary to pneumonia. Continue O2, steroids, nebs. Wean steroids as tolerated. (3) Chronic respiratory failure with hypoxia, on home O2 therapy: Continue supplemental O2. (4) Diastolic CHF, chronic: Compensated. Continue diuretics. (5) Paroxysmal a-fib: Currently in NSR. Continue metoprolol. No long-term anticoagulants because of hemorrhagic complications in past. (6) HTN (hypertension): Continue metoprolol, losartan, diuretics. (7) CKD (chronic kidney disease), stage IV: Serum creatinine today = 1.74. Follow. (8) Hyperkalemia: K as high as 5.7. Not receiving any potassium supplements. Holding losartan. K today = 4.7. Recheck tomorrow. Consider restarting losartan with caution. Follow. (9) Anemia: Chronic anemia with baseline Hgb around 9. Probably has anemia of CKD. Hgb at time of admission was 9.1. Hgb as low as 8.4. No gross GI bleeding. Check Fe studies, fecal occult blood, B12, folate, SPEP. Follow. (10) DVT prophylaxis: SQ heparin. (11) Discharge planning issues: Anticipated discharge to home. Family Medicine follow-up with Dr. Melendez. Subjective Recheck for pneumonia and other problems. Patient seen in her room around 1020. Better, but still wheezing and coughing. Review of Systems: Constitutional- no fever. Cardiac- no angina. Pulmonary- as noted above. GI- no nausea, vomiting, diarrhea, melena, hematochezia. - no urinary symptoms. Otherwise, as noted above. Physical Exam Constitutional: no acute distress Respiratory: no respiratory distress Auscultation: + rhonchi (scattered, bilat) and + wheezes (diffuse, moderate) Cardiovascular: Rate/Rhythm: regular rate and regular rhythm Heart Sounds: no gallop, no murmur and no cardiac rub Vessels: + JVD Extremities: + edema (trace pretibial); no calf tenderness Gastrointestinal (Abdomen): normal bowel sounds, soft, nontender, no hepatosplenomegaly Skin: no rashes, warm and dry Psychiatric: Orientation: alert and oriented x 3 Results & Data Vital Signs (Past 12 Hours) Vital Signs Temp Pulse Pulse Pulse Resp BP Pulse Ox 12/13/18 15:23 73 20 94 12/13/18 15:00 36.7 C 86 20 144/61 H 97 12/13/18 12:20 37 C 85 24 165/85 H 95 12/13/18 11:31 36.6 C 66 20 185/74 H 99 12/13/18 09:00 67 12/13/18 07:07 69 16 98 12/13/18 07:00 36.8 C 70 16 156/68 H 98 Laboratory Results Laboratory Results - last 24 hr 12/13/18 12/13/18 07:17 07:17 Hgb 8.7 L Hct 28.6 L Sodium 141 Potassium 4.7 D Chloride 99 Carbon Dioxide 37 H Anion Gap 5.0 BUN 70 H Creatinine 1.74 H Est Cr Clr Drug Dosing 36.6 Est GFR ( Amer) 33.8 Est GFR (Non-Af Amer) 29.2 BUN/Creatinine Ratio 40.1 H Glucose 134 H Calcium 9.7 (1) Pneumonia Laterality: right Lung location: lower lobe of lung Pneumonia type: due to unspecified organism Qualified Code(s): J18.1 - Lobar pneumonia, unspecified organism
[2018-12-13] MEDS: ATORVASTATIN 20 MG TAB PO SCH (21:40)
[2018-12-13] MEDS: DOXYCYCLINE HYCLATE 100 MG CAP PO SCH (21:40)
[2018-12-14] MEDS: LEVALBUTEROL 1.25MG/0.5ML NEB INH SCH ×2 (01:25→07:09)
[2018-12-14] MEDS: IPRATROPIUM BROMIDE NEB SOLN 0.02% 2.5 ML VIAL INH SCH ×2 (01:25→07:09)
[2018-12-14] MEDS ORDERED: ALUMINUM/MAGNESIUM/SIMETH (MAALOX MAX) 30 ML UDC PO STA (01:40)
[2018-12-14] MEDS ORDERED: ALUMINUM/MAGNESIUM SUSP 30 ML UDC ONE (01:52)
[2018-12-14] MEDS: HEPARIN SOD 5,000 UNIT/0.5 ML VIAL SQ SCH (05:27)
[2018-12-14] MEDS: methylPREDNISolone 20 MG in SYRINGE 0 ML IV SCH (05:28)
[2018-12-14] MEDS: LEVOTHYROXINE SODIUM 88 MCG TABLET PO SCH ×2 (05:29→06:30)
[2018-12-14] MEDS: PANTOprazole 40 MG TAB PO SCH (05:29)
[2018-12-14] MEDS: PROPAFENONE HCL 150 MG TABLET PO SCH (05:29)
[2018-12-14] MEDS ORDERED: LEVOFLOXACIN/D5W 750 MG/150 ML BAG IV SCH (06:00)
--- NOTE | 2018-12-14 07:31 | XRay Report ---
XR chest 1V portable HISTORY: Shortness of breath. CHF, pneumonia COMPARISON: Chest 12/10/2018. FINDINGS: No pneumothorax. Trace left pleural effusion. Right lower lobe airspace opacities in the pu lmonary vascular congestion have improved. Linear density left lung base persist and favor atelectasi s. The heart remains enlarged. Vertebroplasty within the mid thoracic spine is again noted. There is a right shoulder prosthesis. IMPRESSION: 1. Interval improvement in the pulmonary vascular congestion and right lower lobe airspace opacities. 2. Trace left pleural effusion persist. Electronically signed by: Henry Bourne M.D. 12/14/2018 7:30 AM
[2018-12-14 08:22] LABS: Hematocrit (blood only) 27.8 % (37-47); Hemoglobin 8.8 g/dL (12.0-16.0)
--- NOTE | 2018-12-14 08:36 | Hospitalist Progress Note ---
Date of Service December 14, 2018 Assessment & Plan (1) Pneumonia: HEALTH CARE ACQUIRED PNEUMONIA Presented with cough and SOB; CXR - showed bibasilar infiltrates, Nasal MRSA swab + Did not meet criteria for sepsis (had leukocytosis, but tachypnea secondary to COPD + pneumonia, not sepsis). -S/P IV levofloxacin and vancomycin to cover for possible MRSA, Pseudomonas, and other pathogens (QTC - ok ) --> Changed from vancomycin to doxycycline for MRSA coverage and Levo - 2 more days -Sputum cx- Fungus; Blood cx x 2 negative (2) COPD exacerbation: Secondary to pneumonia. -On IV Solu medrol 20 mg q 8 hours --> Change to PO prednisone (3) Chronic respiratory failure with hypoxia, on home O2 therapy: -Continue supplemental O2- 4 L as at baseline. (4) Diastolic CHF, chronic: Compensated. -On Bumex 1 mg PO BID (5) Paroxysmal a-fib: Currently in NSR. -Continue Toprol XL 50 mg daily -No long-term anticoagulants because of hemorrhagic complications in past. (6) HTN (hypertension): -Stable -Continue metoprolol, losartan, diuretics. (7) CKD (chronic kidney disease), stage IV: Creatinine down to 1.5, near baseline (8) Hyperkalemia: K as high as 5.7. -Not receiving any potassium supplements. -Held Losartan --> Restarted yesterday. -Monitor-K today 4.7 (9) Anemia: Chronic anemia with baseline Hgb around 9. Probably has anemia of CKD. -Hgb at time of admission was 8.8 -No gross GI bleeding. -FOBT - Neg, Fe studies, fecal occult blood, B12, folate- neg, SPEP = follow up -Monitor outpatient (10) DVT prophylaxis: SQ heparin. (11) Discharge planning issues: Anticipated discharge to home. PT/OT ordered- Patient is refusing Home PT/OT or rehab. Wants to be discharged home. Updated daughter over phone and agreeable with discharge plan Family Medicine follow-up with Dr. Melendez. Subjective Patient is feeling better. Shortness of breath, cough seems to be near her baseline. No chest pain, fever, chills. Eager to be discharged. Refusing rehab or physical therapy at home On 4 L of oxygen is at baseline Physical Exam Physical Exam: Constitutional: no acute distress Respiratory: no respiratory distress Auscultation: + rhonchi (scattered, bilat) and + wheezes (diffuse, moderate)---> Improved Cardiovascular: Rate/Rhythm: regular rate and regular rhythm Heart Sounds: no gallop, no murmur and no cardiac rub Vessels: + JVD Extremities: + edema (trace pretibial); no calf tenderness Gastrointestinal (Abdomen): normal bowel sounds, soft, nontender, no hepatosplenomegaly Skin: no rashes, warm and dry Psychiatric: Orientation: alert and oriented x 3 Results & Data Vital Signs (Past 12 Hours) Vital Signs Temp Pulse Pulse Pulse Resp BP Pulse Ox 12/14/18 07:22 71 12/14/18 07:11 65 16 99 12/14/18 07:00 36.7 C 68 22 132/70 99 12/14/18 04:00 36.6 C 71 18 148/78 H 99 12/14/18 01:28 71 19 98 12/14/18 00:54 79 12/13/18 23:00 36.3 C L 96 H 17 134/75 96 (1) Pneumonia Laterality: right Lung location: lower lobe of lung Pneumonia type: due to unspecified organism Qualified Code(s): J18.1 - Lobar pneumonia, unspecified organism
[2018-12-14] MEDS: LACTOBACILLUS ACIDOPHILUS (FLORANEX) TAB PO SCH ×2 (08:47→11:11)
[2018-12-14] MEDS: METOPROLOL SUCC 50MG EXT REL TAB PO SCH (08:47)
[2018-12-14] MEDS: MULTIVITAMIN TAB PO SCH (08:47)
[2018-12-14] MEDS: SERTRALINE HCL 50 MG TABLET PO SCH (08:48)
[2018-12-14] MEDS: ASPIRIN 81 MG ECTAB PO SCH (08:48)
[2018-12-14] MEDS: ROFLUMILAST 500 MCG TAB PO SCH (08:48)
[2018-12-14] MEDS: LOSARTAN POTASSIUM 50 MG TAB PO SCH (08:48)
[2018-12-14] MEDS: ALLOPURINOL 300 MG TAB PO SCH (08:49)
[2018-12-14] MEDS: DOXYCYCLINE HYCLATE 100 MG CAP PO SCH (08:49)
[2018-12-14] MEDS: CHOLECALCIFEROL 1,000 UNITS TAB PO SCH (08:49)
[2018-12-14] MEDS: GABAPENTIN 600 MG TAB PO SCH (08:49)
[2018-12-14] MEDS: BUMETANIDE 1 MG TAB PO SCH (08:50)
[2018-12-14 08:57] LABS: BUN Creatinine Ratio 39.8 (10-20); Calcium 9.6 mg/dl (8.5-10.1); Creatinine Clr Calc Pharmacy 41.8 ml/min; Est GFR (African American) 40.2; Est GFR (Non-African American) 34.7; Potassium 4.7 mmol/L (3.5-5.1)
[2018-12-14] MEDS ORDERED: FLUTICASONE/VILANTEROL INHALER INH SCH (09:00)
[2018-12-14 09:02] LABS: Ferritin 1027.1 ng/ml (8-388)
[2018-12-14 09:26] LABS: Folate (Folic Acid) 19.3 ng/ml (>5.38)
--- NOTE | 2018-12-14 10:42 | Discharge Summary ---
Date of Service December 14, 2018 Admission HPI Per Admitting Provider HISTORY OF PRESENT ILLNESS: This is a 68-year-old female with past medical history significant for severe COPD, chronic respiratory failure on 4 liters oxygen all the time, hyperlipidemia, hypothyroidism, Afib, not on anticoagulant secondary to history of GI bleeding and hematoma, right-sided heart failure, hypertension, chronic kidney disease stage III-IV, iron deficiency anemia, spinal stenosis, depression with anxiety, was recently in the hospital for COPD exacerbation, comes back because of with severe back pain and feeling subjective fevers and chills. Shortness of breath is same. She still has cough with bringing a lot of yellowish phlegm. In the ER, she was found to have leukocytosis and chest x-ray showed right lower lobe pneumonia and we are called for admission. Currently, resting comfortable and hemodynamically stable. She has on and off headaches, but currently no headache. Denies any dizziness, no blurred vision, no difficulty swallowing. Appetite is okay. No chest pain, no nausea, no abdominal pain. Normal bowel and bladder movements. Denies any blood in the stools or black stools. No hematuria or burning micturition. No swelling of the legs. She lives with her daughter. Principal Diagnosis 1. Health acquired pneumonia 2. COPD exacerbation 3. Chronic respiratory failure, hypoxic on oxygen at home 4. Hyperkalemia, resolved Secondary diagnoses on discharge 1. Chronic diastolic congestive heart failure 2. Paroxysmal atrial fibrillation not on anticoagulation 3. Hypertension 4. CKD stage IV 5. Anemia 6. Morbid obesity 7. Ambulatory dysfunction Discharge Exam Constitutional: no acute distress Respiratory: no respiratory distress Auscultation: + rhonchi (scattered, bilat) and + wheezes (diffuse, moderate)---> Improved Cardiovascular: Rate/Rhythm: regular rate and regular rhythm Heart Sounds: no gallop, no murmur and no cardiac rub Vessels: + JVD Extremities: + edema (trace pretibial); no calf tenderness Gastrointestinal (Abdomen): normal bowel sounds, soft, nontender, no hepatosplenomegaly Skin: no rashes, warm and dry Psychiatric: Orientation: alert and oriented x 3 Discharge Data Allergies Allergy/AdvReac Type Severity Reaction Status Date / Time adhesive Allergy Severe RED RASH Verified 12/10/18 05:10 latex AdvReac Mild TAPE-SORE Verified 12/10/18 05:10 morphine AdvReac Mild DELUSIONS Verified 12/10/18 05:10 Consultations 12/10/18 06:04 ED Decision to Admit Stat 12/10/18 07:57 Consult Case Management - Discharge Planning Routine Hospital Course (1) Pneumonia: HEALTH CARE ACQUIRED PNEUMONIA Presented with cough and SOB; CXR - showed bibasilar infiltrates, Nasal MRSA swab + Did not meet criteria for sepsis (had leukocytosis, but tachypnea secondary to COPD + pneumonia, not sepsis). -S/P IV levofloxacin and vancomycin to cover for possible MRSA, Pseudomonas, and other pathogens (QTC - ok ) --> Changed from vancomycin to doxycycline for MRSA coverage and Levo - 2 more days -Sputum cx- Fungus; Blood cx x 2 negative (2) COPD exacerbation: Secondary to pneumonia. -On IV Solu medrol 20 mg q 8 hours --> Change to PO prednisone--> Tapering course outpatient (3) Chronic respiratory failure with hypoxia, on home O2 therapy: -Continue supplemental O2- 4 L as at baseline. (4) Diastolic CHF, chronic: Compensated. -On Bumex 1 mg PO BID (5) Paroxysmal a-fib: Currently in NSR. -Continue Toprol XL 50 mg daily -No long-term anticoagulants because of hemorrhagic complications in past. (6) HTN (hypertension): -Stable -Continue metoprolol, losartan, diuretics. (7) CKD (chronic kidney disease), stage IV: Creatinine down to 1.5, near baseline (8) Hyperkalemia: K as high as 5.7. -Not receiving any potassium supplements. -Held Losartan --> Restarted yesterday. -Monitor-K today 4.7 (9) Anemia: Chronic anemia with baseline Hgb around 9. Probably has anemia of CKD. -Hgb at time of admission was 8.8 -No gross GI bleeding. -FOBT - Neg, Fe studies, fecal occult blood, B12, folate- neg, SPEP = follow up -Monitor outpatient (10) DVT prophylaxis: SQ heparin. (11) Discharge planning issues: Anticipated discharge to home. PT/OT ordered- Patient is refusing Home PT/OT or rehab. Wants to be discharged home. Updated daughter over phone and agreeable with discharge plan Family Medicine follow-up with Dr. Melendez. Total Time Total Time Spent Total Time Spent (In Minutes): 40 minutes Discharge Plan Discharge Items Patient Disposition: Home - Self-Care Reason For Visit: BACK PAIN AND CHILLS Discharge Diagnosis: 1. Health care acquired pneumonia 2. COPD exacerbation Discharge Goals: Decrease discomfort Activity: Resume your previous activity Activity Comment: As tolerated- Use assitive device Walker and Cane Non-emergency contact: Primary Care Provider Call non-emergency contact if: your symptoms worsen Follow-up/Referrals: Babak Melendez MD [Primary Care Provider] - 12/19/18 3:05 pm Diet: Low Fat and Low Sodium (2gm) Addtl Provider Instructions: MEDICATION CHANGES: New medications: 1. Levofloxacin as directed for 2 more days to complete course of 7 days of antibiotic 2. Doxycycline as directed for 2 more days to complete course of 7 days of antibiotic 3. Prednisone 40 mg daily x 3 days f/b 30 mg daily x 3 days f/b 20 mg daily x 3 days f/b 10 mg daily x 3 days and than discontinue 4. Continue with nebs q 4-6 hours as needed for SOB/Wheezing Continue with oxygen as at home: 4 L Prescriptions: New doxycycline hyclate 100 mg Capsule 100 mg PO BID 2 Days Qty: 4 RF: 0 levofloxacin 750 mg Tablet 750 mg PO Q2D@1100 2 Days Qty: 2 RF: 0 prednisone 10 mg tablet 10 mg PO DAILY Qty: 45 RF: 0 Continued Breo Ellipta 200-25 mcg/dose Blister With Device 1 inh INHALATION DAILY RF: 0 multivitamin Tablet 1 tab PO DAILY RF: 0 losartan 50 mg Tablet 50 mg PO DAILY RF: 0 metolazone 2.5 mg Tablet 2.5 mg PO MOFR RF: 0 propafenone 150 mg Tablet 150 mg PO Q8H RF: 0 prednisone 10 mg Tablet 10 mg PO QAM RF: 0 gabapentin 600 mg Tablet 600 mg PO TID RF: 0 atorvastatin 20 mg Tablet 20 mg PO QPM RF: 0 metoprolol succinate 50 mg Tablet Extended Release 24 Hr 50 mg PO DAILY RF: 0 aspirin [Aspir-81] 81 mg Tablet,Delayed Release (Dr/Ec) 81 mg PO DAILY RF: 0 triamcinolone acetonide 0.1 % Cream 1 applic TOPICAL BID PRN (Reason: Skin Irritation) RF: 0 levothyroxine 88 mcg Tablet 88 mcg PO DAILYBB RF: 0 ranitidine HCl 150 mg Tablet 150 mg PO BID RF: 0 sertraline [Zoloft] 25 mg Tablet 25 mg PO DAILY RF: 0 omeprazole 20 mg Capsule,Delayed Release(Dr/Ec) 20 mg PO DAILYBB RF: 0 bumetanide 1 mg Tablet 1 mg PO BID RF: 0 allopurinol 300 mg Tablet 300 mg PO DAILY RF: 0 cholecalciferol (vitamin D3) [Vitamin D3] 2,000 unit Tablet 2,000 unit PO QAM RF: 0 Lactinex 1 million cell Tablet,Chewable 1 tab PO TIDM RF: 0 Daliresp 500 mcg Tablet 500 mcg PO DAILY RF: 0 potassium chloride 20 mEq Tablet Extended Release 20 meq PO Q OTHER DAY RF: 0 meloxicam [Mobic] 15 mg Tablet 15 mg PO DAILY RF: 0 acetaminophen [Tylenol] 325 mg Capsule 650 mg PO Q4 PRN (Reason: Fever Or Pain) RF: 0 albuterol sulfate 2.5 mg /3 mL (0.083 %) Solution For Nebulization 2.5 mg INHALATION Q6 PRN (Reason: Shortness Of Breath Or Wheezing) RF: 0 prednisone 10 mg tablet 10 mg PO UD Qty: 18 RF: 0 Stand-Alone Forms: [facility] Discharge Orders: Discharge Order (Routine); Ordered 12/14/18 Ordered By: Kandy Caal Admission Data Admit Date/Time: 12/10/18 06:54 Attending Provider: Kandy Caal Admit Provider: Manjit Frias Primary Care Provider: Baabk Melendez Other Providers: Manjit Frias Service: Telemetry
[2018-12-14] MEDS ORDERED: levoFLOXacin 750 MG TAB PO SCH (11:00)
[2018-12-15] MEDS ORDERED: VANCOMYCIN TROUGH ONE (11:30)
== END 2018-12-14 12:20 | disposition home or self-care (01) | DRG 194 ==
LOC: ED 04:48 → 2E 06:54 → SUATTDRO 06:54 → 2E 07:30 → 2W 12-13 10:35

== ENCOUNTER 2018-12-28 10:38 | Inpatient (IN) ==
[2018-12-28] MEDS ORDERED: ALBUT/IPRATROP 3MG/0.5MG NEB 3 ML VIAL NEB STA (12:13)
[2018-12-28] MEDS ORDERED: LORazepam 0.5 MG/1 ML VIAL IV STA (12:37)
[2018-12-28 12:44] LABS: Alanine Aminotransferase 18 U/L (12-78); Albumin Level 2.9 gm/dl (3.4-5.0); Alkaline Phosphatase 66 U/L (45-117); Aspartate Aminotransferase 11 U/L (15-37); BUN Creatinine Ratio 29.5 (10-20); Bilirubin Direct < 0.1 mg/dl (0-0.2); Bilirubin,Total 0.3 mg/dl (0.2-1); Blood Urea Nitrogen 49 mg/dl (7-18); Calcium 9.6 mg/dl (8.5-10.1); Carbon Dioxide 40 mmol/L (21-32); Chloride 98 mmol/L (98-107); Creatinine Clr Calc Pharmacy 38.9 ml/min; Est GFR (African American) 36.1; Est GFR (Non-African American) 31.1; Glucose 89 mg/dl (70-99); Magnesium 2.2 mg/dl (1.8-2.4); NT Pro B Type Natriuretic Pept 549 pg/ml (0-900); Potassium 4.3 mmol/L (3.5-5.1); Sodium 140 mmol/L (136-145); Total Protein 6.6 gm/dl (6.4-8.2); Troponin I < 0.015 ng/ml (0-0.045)
[2018-12-28 12:46] LABS: Hematocrit (blood only) 26.8 % (37-47); Hemoglobin 7.8 g/dL (12.0-16.0); Mean Corpuscular Hgb Conc 29.1 g/dL (32-36); Mean Corpuscular Volume 104.3 fL (80-100); Mean Platelet Volume 9.4 fL (7.4-10.4); Platelet Count 171 K/uL (130-400); RDW Coefficient of Variation 15.3 % (11.5-14.5); RDW Standard Deviation 58.9 fL (36.4-46.3); Red Blood Count 2.57 M/uL (4.2-5.4)
--- NOTE | 2018-12-28 12:49 | XRay Report ---
XR chest 1V portable CLINICAL HISTORY: Cough. COMPARISON STUDY: Chest radiograph December 23, 2018. FINDINGS: Right shoulder arthroplasty and kyphoplasty are incidentally noted. There is no pneumothora x. Blunting of the left costophrenic angle is unchanged. Old right rib fractures are noted. Interstit ial thickening is unchanged. IMPRESSION: No acute cardiopulmonary findings. No change in appearance of the chest. Electronically signed by: Quentin Maier M.D. 12/28/2018 12:47 PM
[2018-12-28 13:03] LABS: Basophilic Stippling 2+; Basophils # (auto) 0.01 K/uL (0-0.2); Basophils % (auto) 0.1 %; Eosinophils # (auto) 0.24 K/uL (0-0.5); Eosinophils % (auto) 2.3 %; Immature Granulocytes # (auto) 0.08 K/uL (0.00-0.02); Immature Granulocytes % (auto) 0.8 %; Lymphocytes # (auto) 1.47 K/uL (1.2-3.4); Lymphocytes % (auto) 14.3 %; Macrocytosis Present; Monocytes # (auto) 0.61 K/uL (0.11-0.59); Monocytes % (auto) 5.9 %; Neutrophils # (auto) 7.89 K/uL (1.4-6.5); Neutrophils % (auto) 76.6 %; Stomatocytes 1+
[2018-12-28 13:06] LABS: Base Excess VBG 12.9 mEq/L; HCO3 VBG 41 mmol/L; Oxygen Saturation VBG < 60.0 %; PCO2 VBG 86 mmHg (38-50); PO2 VBG 25 mmHg
[2018-12-28 13:57] LABS: Partial Thromboplastin Ratio 0.8; Partial Thromboplastin Time 21.5 Seconds (21.0-31.0); Prothrombin Time 10.3 Seconds (9.0-12.0)
[2018-12-28 15:08] LABS: Base Excess VBG 14.2 mEq/L; HCO3 VBG 42 mmol/L; Oxygen Saturation VBG < 60.0 %; PCO2 VBG 83 mmHg (38-50); PO2 VBG 43 mmHg; pH VBG 7.32 (7.36-7.41)
--- NOTE | 2018-12-28 15:26 | History & Physical Report ---
Date of Service December 28, 2018 Assessment & Plan (1) COPD exacerbation: (2) Chronic respiratory failure with hypoxia and hypercapnia: This is a 68-year-old female who has a significant past medical history of COPD with chronic respiratory failure and hypercarbia on 4 L O2 via NC, A. fib, ch ronic diastolic heart failure, CKD stage IIIB-IV,HTN, HLD, hx of tobacco abuse, hypothyroidism, depression with anxiety who presents to [facility] ED secondary to increasing SOB and muscle spasms. In ED patient VBG pH 7.30, CO2 86 No mental status change but given hypercarbia placed on Bipap CXR no acute abnormality H/H decreased to 7.8/26.8 +FOBT (previous admission FOBT negative) Pt recently hospitalized 12/10-12/14 for COPD EXAC and HAP - tx with IV steroid and IV antibiotics levaquin and Doxy WBC WNL today and Procalcitonin WNL admit to med/surg tele continue bipap prn IV solumedrol 40mg IV q8h Initiate IV doxycycline 100mg q12 aggressive pulmonary toilet with duoneb, chest PT, incentive spirometry consult pulmonology given freq hospitalizations (3) Heme positive stool: FOBT + in ED with reports of BRBPR drop in hgb to 7.8 repeat H/H at 8pm repeat FOBT hold outpt omeprazole and start Protonix IV 40mg BID until seen and evaluated by GI No abdominal pain or other GI sx consult Gastroenterology (4) Chronic anemia: baseline hgb ~ 8-9 H/H 7.8 and 26.8 today Hemoglobin at discharge on 12/14 was 8.4 She was heme positive today Had anemia panel on 12/14 which revealed normal B12 at 667, iron 101, ferritin 1027.1, TIBC 258 (5) Diastolic CHF, chronic: wt 112.3, pt appears compensated continue losartan, metoprolol, bumex, zaroxlyn as prescribed daily weights strict I and O heart healthy, low Na diet (6) CKD (chronic kidney disease), stage IV: baseline CR ~ 1.5 Bun/Cr 49/1.65 monitor cr, continue diuretics for now (7) Paroxysmal a-fib: rate and rhythm controlled on metoprolol and propafenone off OAC due to hx of GIB per records? (8) HTN (hypertension): Blood pressure stable continue losartan, metoprolol and diuretics (9) Dyslipidemia: continue statin (10) GERD (gastroesophageal reflux disease): continue ranitidine hold omeprazole and begin PPI IV BID until seen by GI given +FOBT with drop in hgb (11) Morbid obesity: BMI 42.5 encourage lifestyle modifications (12) DVT prophylaxis: SCDS/TEDS given +FOBT Disposition: Discharge when able Follow up: PCP Dr. Melendez upon discharge Patient was seen and examined in collaboration with Dr. Prescott, please see addendum Starting 12/29/18 pt will be under the care of Dr. Casper History of Present Illness Chief Complaint: SOB and Muscle spasm x 2 days. Primary Care Provider: Babak Melendez MD This is a 68-year-old female who has a significant past medical history of COPD with chronic respiratory failure and hypercarbia on 4 L O2 via NC, A. fib, chronic diastolic heart failure, CKD stage IIIB-IV,HTN, HLD, hx of tobacco abuse, hypothyroidism, depression with anxiety who presents to [facility] ED secondary to increasing SOB and muscle spasms x 3 days. "I get muscle spasms when my CO2 is low." Over past 2-3 days noted in [facility], SOB at rest, productive cough purulent sputum, using alb inhaler q4hr w/o relief; therefore, she presented to ED. Feels her sputum cleared up after previous hospitalization but has since gotten worse. Denies f/c/s, chest pain, palpitations, hemoptysis, n/v/d, abdominal pain, dysuria, hematuria, increased freq/urg with urination. She did have episode yesterday of BRBPR on toilet paper. Denies hx of GIB. +Hx of diverticulosis. Pt recently hospitalized secondary to hospital-acquired pneumonia, COPD exacerbation. She was treated with a course of IV Levaquin and IV doxycycline a s well as IV Solu-Medrol. She was transitioned to oral antibiotics along with oral prednisone upon discharge. She presented back to the ED on 12/23 due to shortness of breath but was felt medically stable to discharge home. She states she is compliant with her medications and oxygen. She does not wear CPAP/BiPAP at at bedtime. Allergies Allergy/AdvReac Type Severity Reaction Status Date / Time adhesive Allergy Severe RED RASH Verified 12/28/18 13:03 latex AdvReac Mild TAPE-SORE Verified 12/28/18 13:03 morphine AdvReac Mild DELUSIONS Verified 12/28/18 13:03 Home Medications Home Medications Medication Instructions Recorded Confirmed Type Tyrao Ellipta 1 inh INHALATION DAILY 03/12/18 12/28/18 History Daliresp 500 mcg PO DAILY 03/12/18 12/28/18 History Lactinex 1 tab PO TID 03/12/18 12/28/18 History allopurinol 300 mg PO DAILY 03/12/18 12/28/18 History aspirin [Aspir-81] 81 mg PO DAILY 03/12/18 12/28/18 History atorvastatin 20 mg PO QPM 03/12/18 12/28/18 History bumetanide 1 mg PO BID 03/12/18 12/28/18 History cholecalciferol (vitamin D3) 2,000 unit PO QAM 03/12/18 12/28/18 History [Vitamin D3] gabapentin 600 mg PO TID 03/12/18 12/28/18 History levothyroxine 88 mcg PO DAILYBB 03/12/18 12/28/18 History losartan 50 mg PO DAILY 03/12/18 12/28/18 History metolazone 2.5 mg PO MOFR 03/12/18 12/28/18 History metoprolol succinate 50 mg PO DAILY 03/12/18 12/28/18 History multivitamin 1 tab PO DAILY 03/12/18 12/28/18 History omeprazole 20 mg PO DAILYBB 03/12/18 12/28/18 History potassium chloride 20 meq PO Q OTHER DAY 03/12/18 12/28/18 History propafenone 150 mg PO Q8H 03/12/18 12/28/18 History ranitidine HCl 150 mg PO BID 03/12/18 12/28/18 History sertraline [Zoloft] 25 mg PO DAILY 03/12/18 12/28/18 History acetaminophen [Tylenol] 650 mg PO Q4 PRN 08/07/18 12/28/18 History albuterol sulfate 2.5 mg INHALATION Q6 PRN 08/07/18 12/28/18 History meloxicam [Mobic] 15 mg PO DAILY 08/07/18 12/28/18 History Past Med/Surg History Medical History Chronic respiratory failure with hypoxia, on home O2 therapy (Chronic) Anemia (Chronic) Chronic anemia (Chronic) Diarrhea DVT prophylaxis Diastolic CHF, chronic (Chronic) Acute bronchitis COPD exacerbation GERD (gastroesophageal reflux disease) (Chronic) Depression (Chronic) Myocardial infarction (Chronic) "per patient, details unknown" COPD (chronic obstructive pulmonary disease) (Chronic) Paroxysmal a-fib (Chronic) HTN (hypertension) (Chronic) Dyslipidemia (Chronic) EVONNE (iron deficiency anemia) (Chronic) CKD (chronic kidney disease), stage IV (Chronic) Asthma (Chronic) Lumbar spinal stenosis (Chronic) Morbid obesity (Chronic) Obesity hypoventilation syndrome (Chronic) Chronic respiratory failure (Chronic) Surgical History S/P cervical spinal fusion (Chronic) History of appendectomy (Chronic) Hx of cholecystectomy (Chronic) S/P wrist surgery (Chronic) 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) Family History Father Trauma Mother Diabetes Cerebral aneurysm Daughter Bipolar 1 disorder Social History Preferred Language: Martiniquais Communication Ability: Effective 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 Physical Exam Physical Exam: Gen: WD/WN, F, +Bipap, sitting up in bed, NAD, pleasant, conversing easily Head: Normocephalic, Atraumatic Eyes: Sclera normal, no conjunctival injection, PERRLA, EOMI ENT: Gross hearing intact, normal pharynx, mucous membranes moist Neck: supple, no adenopathy, No JVD, no bruit, Resp: Scattered wheeze and rhonchi throughout all lung valdez, +biapa. Normal insp/exp effort, no accessory muscle use CV: distant/muffled heart sounds due to adventitious breath sounds but otherwiser egular rate, regular rhythm, no murmur, rub, gallop, or ectopy Abd: +BS x 4, soft, nontender, nondistended Musculoskeletal: moves extremities active rom x 4, strength intact, good decision unit rn strength Extremities: No edema bilaterally Skin: warm, moist, no rash, +LLE ecchymosis, negative turgor, cap refill < 2sec Neuro: Alert and oriented x 3, speech normal, good mood/affect, cran nerve 2-12 intact grossly : deferred Results & Data Vital Signs (Past 12 Hours) Vital Signs Temp Pulse Pulse Resp BP BP Pulse Ox 12/28/18 15:19 66 18 128/73 96 12/28/18 14:15 68 30 H 96 12/28/18 13:48 73 21 123/68 99 12/28/18 12:48 76 16 100 12/28/18 12:23 74 21 150/61 H 99 12/28/18 10:51 37.2 C 84 21 140/70 98 12/28/18 10:45 99 Laboratory Results Short CBC 12/28/18 12/28/18 Range/Units 10:54 10:54 WBC 10.30 (4.8-10.8) K/uL Hgb 7.8 L (12.0-16.0) g/dL Hct 26.8 L (37-47) % Plt Count 171 (130-400) K/uL Creatinine 1.65 H (0.6-1.2) mg/dl BUN/Creatinine Ratio 29.5 H (10-20) BMP 12/28/18 10:54 Sodium 140 Potassium 4.3 Chloride 98 Carbon Dioxide 40 H BUN 49 H Creatinine 1.65 H Glucose 89 Calcium 9.6 Cardiac Enzymes 12/28/18 Range/Units 10:54 Troponin I < 0.015 (0-0.045) ng/ml Liver Function 12/28/18 Range/Units 10:54 Total Bilirubin 0.3 (0.2-1) mg/dl Direct Bilirubin < 0.1 (0-0.2) mg/dl AST 11 L (15-37) U/L ALT 18 (12-78) U/L Alkaline Phosphatase 66 (45-117) U/L Albumin 2.9 L (3.4-5.0) gm/dl Diagnostic Findings CXR: IMPRESSION: No acute cardiopulmonary findings. No change in appearance of the chest. Medications Administered Discontinued Medications Albuterol (Duoneb) 3 ml NEB NOW STA Stop: 12/28/18 12:14 Last Admin: 12/28/18 12:47 Dose: 3 ml Documented by: [id number] Lorazepam (Ativan) 0.5 mg in 1 mls @ 1 mls/min IV NOW STA Stop: 12/28/18 12:38 Last Admin: 12/28/18 12:51 Dose: 1 mls/min Documented by: [id number] ECG Rhythm: normal sinus Findings: + 1st degree AV block Additional Comments: QTC 444ms Code Status & VTE Plan Code Status Full Code VTE Prophylaxis Plan VTE Prophylaxis will be ordered: Yes Reason for no VTE drug order: Contraindicated (+FOBT) Supervising Physician Co-Signing Physician Notes Pt was seen and examined. Agreed with Kajal SANABRIA exam, assessment and plan. 68-year-old female with past medical history of COPD with chronic respiratory failure and hypercarbia on 4 L O2 via NC, A. fib, chronic diastolic heart failure, CKD stage IIIB-IV,HTN, HLD, hx of tobacco abuse, hypothyroidism, depression with anxiety, with multiple hospital admission presents to [facility] ED with worsening SOB associated with productive cough. Pt said that that since she was discharged 2 weeks ago, she has not been doing well. She said that her oxygen has been low and she has been having muscle spasms that she related with her CO2. She said that she use CPAP at night and oxygen at night. Not sure if she is using a cpap or Bipap at night. He also complaint of blood in her stool that usually occurs on and off. Denies any fever, chills, palpitation and chest pain. CXR done in the ER showed no acute findings. Hemoglobin on admission 7.8 with last hgb on discharge was 8.4 2 weeks ago. VBG on admission with PCO2 86. Will start on IV solumedrol. Continue Bipap for now. Continue neb treatment. Will consult pulmonology. Will get and ABG in am. Stool guaiac done by ER physician was positive. Will monitor H/H. Will consult GI. Hold aspirin and meloxicam. Will start on PPI IV. Will continue monitor closely. Please follow Kajal SANABRIA documentation for other problems. MD Genie
--- NOTE | 2018-12-28 17:05 | Emergency Department Note ---
Entered by Sofie Scherer acting as a scribe for Aramis Amaya History of Present Illness General Chief complaint: Illness Time Seen by Provider: 12/28/18 12:06 Source: patient and family History of Present Illness Onset (ago): day(s) 4 Location: upper extremity and lower extremity Pain Consistency: + other (episode) Quality: + other (illness, muscle spasms) Associated symptoms: + denies other symptoms (diarrhea, hematuria, hematochezia, hemoptysis, increase in weight, leg swelling) and + other (tired, sounding congested); no chest pain, no fever/chills (fever), no nausea/vomiting and no shortness of breath The patient is a 68 year old female who presents to the ED with complaints of an episode of an illness starting 4 days ago. The patient states that she has been having intermittent muscle spasms all over her body for the last 4 days and she is not sure why. Her daughter who is at bedside notes that she believes that this is from her CO2 levels being abnormal. She notes that she has seen her do it before and it was that. The patient complains of being tired. The patients daughter complains of the patient sounding congested. The patient denies chest pain, difficulty breathing, nausea, vomiting, diarrhea, hematuria, hematochezia, hemoptysis, increase in weight, leg swelling, and fever. Home Medications Home Medications Medication Instructions Recorded Confirmed Type Breo Ellipta 1 inh INHALATION DAILY 03/12/18 12/28/18 History Daliresp 500 mcg PO DAILY 03/12/18 12/28/18 History Lactinex 1 tab PO TID 03/12/18 12/28/18 History allopurinol 300 mg PO DAILY 03/12/18 12/28/18 History aspirin [Aspir-81] 81 mg PO DAILY 03/12/18 12/28/18 History atorvastatin 20 mg PO QPM 03/12/18 12/28/18 History bumetanide 1 mg PO BID 03/12/18 12/28/18 History cholecalciferol (vitamin D3) 2,000 unit PO QAM 03/12/18 12/28/18 History [Vitamin D3] gabapentin 600 mg PO TID 03/12/18 12/28/18 History levothyroxine 88 mcg PO DAILYBB 03/12/18 12/28/18 History losartan 50 mg PO DAILY 03/12/18 12/28/18 History metolazone 2.5 mg PO MOFR 03/12/18 12/28/18 History metoprolol succinate 50 mg PO DAILY 03/12/18 12/28/18 History multivitamin 1 tab PO DAILY 03/12/18 12/28/18 History omeprazole 20 mg PO DAILYBB 03/12/18 12/28/18 History potassium chloride 20 meq PO Q OTHER DAY 03/12/18 12/28/18 History propafenone 150 mg PO Q8H 03/12/18 12/28/18 History ranitidine HCl 150 mg PO BID 03/12/18 12/28/18 History sertraline [Zoloft] 25 mg PO DAILY 03/12/18 12/28/18 History acetaminophen [Tylenol] 650 mg PO Q4 PRN 08/07/18 12/28/18 History albuterol sulfate 2.5 mg INHALATION Q6 PRN 08/07/18 12/28/18 History meloxicam [Mobic] 15 mg PO DAILY 08/07/18 12/28/18 History Allergies Allergy/AdvReac Type Severity Reaction Status Date / Time adhesive Allergy Severe RED RASH Verified 12/28/18 13:03 latex AdvReac Mild TAPE-SORE Verified 12/28/18 13:03 morphine AdvReac Mild DELUSIONS Verified 12/28/18 13:03 Past Med/Surg History Medical History Chronic respiratory failure with hypoxia, on home O2 therapy (Chronic) Anemia (Chronic) Chronic anemia (Chronic) Diarrhea DVT prophylaxis Diastolic CHF, chronic (Chronic) Acute bronchitis COPD exacerbation GERD (gastroesophageal reflux disease) (Chronic) Depression (Chronic) Myocardial infarction (Chronic) "per patient, details unknown" COPD (chronic obstructive pulmonary disease) (Chronic) Paroxysmal a-fib (Chronic) HTN (hypertension) (Chronic) Dyslipidemia (Chronic) EVONNE (iron deficiency anemia) (Chronic) CKD (chronic kidney disease), stage IV (Chronic) Asthma (Chronic) Lumbar spinal stenosis (Chronic) Morbid obesity (Chronic) Obesity hypoventilation syndrome (Chronic) Chronic respiratory failure (Chronic) Surgical History S/P cervical spinal fusion (Chronic) History of appendectomy (Chronic) Hx of cholecystectomy (Chronic) S/P wrist surgery (Chronic) 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) Family History Father Trauma Mother Diabetes Cerebral aneurysm Daughter Bipolar 1 disorder Social History Preferred Language: Uzbek Communication Ability: Effective [employer] Systems Analyst Required: No Beliefs That Will Affect Care: None marital status: Current Living Situation: Family Current Living Situation Comment: lives with daughter Other Information That Helps Us Care for You: No Feels Safe at Home: Yes Safety Concerns: Feels Safe At This Time Smoking Status: Former smoker Tobacco Type: cigarettes Cigarettes Per Day: 2 pa cks Do You Dip or Chew Tobacco: No Smoking End Date: at age 55 Hx Alcohol Use: No Hx Substance Use: No Review of Systems See HPI for pertinent positives & negatives. and A total of 10 systems reviewed and were otherwise negative Physical Exam Vital Signs Vital Signs - 24 hr 12/28/18 10:45 12/28/18 10:51 12/28/18 12:23 Temperature 37.2 C Temperature Source Oral Sepsis Recent Fever Within 48 Hours No Sepsis New/Unexplained Change in Mental Status No Sepsis Action Taken by Nursing No Action Required Pulse Rate 84 Pulse Rate [Apical] 74 Respiratory Rate 21 21 Respiratory Effort / Characteristics Non-Labored Spontaneous Respiratory Depth Normal Respiratory Pattern Regular Blood Pressure 140/70 Blood Pressure [Right Arm] 150/61 H Blood Pressure Mean 93 Blood Pressure Mean [Right Arm] 90 Blood Pressure Position [Right Arm] Pulse Oximetry 99 98 99 Oxygen Delivery Method Nasal Cannula Nasal Cannula Nasal Cannula Oxygen Flow Rate 4 4 4 Fraction of Inspired Oxygen 12/28/18 12:48 12/28/18 13:48 12/28/18 14:15 Temperature Temperature Source Sepsis Recent Fever Within 48 Hours Sepsis New/Unexplained Change in Mental Status Sepsis Action Taken by Nursing Pulse Rate 68 Pulse Rate [Apical] 76 73 Respiratory Rate 16 21 30 H Respiratory Effort / Characteristics Non-Labored Spontaneous Spontaneous Respiratory Depth Normal Normal Respiratory Pattern Regular Regular Blood Pressure Blood Pressure [Right Arm] 123/68 Blood Pressure Mean Blood Pressure Mean [Right Arm] 86 Blood Pressure Position [Right Arm] Lying Pulse Oximetry 100 99 96 Oxygen Delivery Method Nasal Cannula Nasal Cannula Oxygen Flow Rate 4 4 Fraction of Inspired Oxygen 30 12/28/18 15:19 12/28/18 16:52 Temperature Temperature Source Sepsis Recent Fever Within 48 Hours Sepsis New/Unexplained Change in Mental Status Sepsis Action Taken by Nursing Pulse Rate Pulse Rate [Apical] 66 Respiratory Rate 18 Respiratory Effort / Characteristics Non-Labored Spontaneous Non-Labored Spontaneous Short of Breath SOB on Exertion Respiratory Depth Normal Normal Respiratory Pattern Regular Regular Blood Pressure Blood Pressure [Right Arm] 128/73 Blood Pressure Mean Blood Pressure Mean [Right Arm] 91 Blood Pressure Position [Right Arm] Pulse Oximetry 96 Oxygen Delivery Method BiPAP BiPAP Oxygen Flow Rate Fraction of Inspired Oxygen GENERAL: She is oriented to person, place, and time. She is on oxygen. She appears well-developed and well-nourished. She does not appear distressed. HENT: Exam performed. - Head: Normocephalic and atraumatic. - Right Ear: External ear normal. No mastoid tenderness. - Left Ear: External ear normal. No mastoid tenderness. - Mouth/Throat: The oropharynx is clear and moist. No trismus in the jaw. No dental abscesses or uvula swelling. No oropharyngeal exudate or tonsillar abscesses. EYES: Conjunctivae and EOM are normal. Pupils are equal, round, and reactive to light. Right eye exhibits no discharge. Left eye exhibits no discharge. No scleral icterus. NECK: Normal range of motion. Neck supple. No JVD present. No spinous process tenderness present. No carotid bruit present. No rigidity. No tracheal deviation and normal range of motion present. No Brudzinski's sign and no Kernig's sign noted. CV: Normal rate, irregular rhythm, normal heart sounds and intact distal pulses. There is no peripheral edema. Palpable radial pulses bue. PULM/CHEST: Effort normal. She has rhonchi and rales bilaterally. No respiratory distress. No stridor. She has no wheezes. Chest Wall: She exhibits no tenderness. ABD: The abdomen is soft and obese. Bowel sounds are normal. She has no distension. No mass is present. There is no tenderness. There is no rebound, no guarding, no Mercado's sign and no tenderness at McBurney's point. Rovsig negative RECTAL: Hemacult positive. MUSC/SKEL: Normal range of motion. There is no peripheral edema, tenderness or deformity. LYMPH: No cervical adenopathy. NEURO: She is alert and oriented to person, place, and time. She has normal strength. No cranial nerve deficit or sensory deficit. Coordination and gait normal. GCS eye subscore is 4. GCS verbal subscore is 5. GCS motor subscore is 6. cerbellar tests wnl. SKIN: Skin is warm and dry. She is not diaphoretic. PSYCH: She has a normal mood and affect. Her behavior is normal. Judgment and thought content normal. Course 1206: EMR reviewed. Patient was admitted to the hospital from December 10 to December 14 for pneumonia. She was also admitted to the hospital from November 28 to December 02 for COPD exacerbation. She has a history of severe COPD, respiratory failure, hyperthyroidism, hyperlipidemia, right sided heart failure, CKD stage 4, is on 4 L O2 at all time, and is not on anticoagulation. 1210: Past medical records reviewed. The patient was evaluated in room C10. A complete history and physical exam was performed. 1405: No signs stable on supplemental oxygen at baseline. Patient's labs show a venous pH of 7.3 and a venous PCO2 of 86. There is a higher than patient's baseline what appears to be a CO2 of 65. Her labs show she is compensatory respiratory acidosis with metabolic alkalosis. Her bicarb level is 40. He moglobin is 7.8. Baseline hemoglobin is 8.5. I placed the patient on Bi-PAP at this time. I updated her on her test results and the treatment plan. She verbally agrees and understands. 1439: I discussed the patient's case with DANIELE Springist. She and Dr. Prescott will evaluate the patient for further management. 1450: I performed a rectal exam at this time with female data entry representative Kajalkarie Dietz in the room. She had dark black stools that were Hemoccult positive. Kajal states that she will start the patient on the necessary medications for the GI bleed. Her repeat VBG shows a pH of 7.32, PCO2 improving at 83. Consultations Consultation #1: I discussed the patient's case with DANIELE Spring. She and Dr. Genie will evaluate the patient for further management. Time: 14:39 Administered Medications Discontinued Medications Albuterol (Duoneb) 3 ml NEB NOW STA Stop: 12/28/18 12:14 Last Admin: 12/28/18 12:47 Dose: 3 ml Documented by: [id number] Lorazepam (Ativan) 0.5 mg in 1 mls @ 1 mls/min IV NOW STA Stop: 12/28/18 12:38 Last Admin: 12/28/18 12:51 Dose: 1 mls/min Documented by: [id number] Medical Decision Making Medical Records Attestation: I reviewed the patient's medical records. Home Medications Current Medication List: was personally reviewed by me Laboratory Data Attestation: I reviewed the patient's lab results. Result diagrams: 12/28/18 10:54 12/28/18 10:54 Lab Results 12/28/18 12/28/18 12/28/18 Range/Units 10:54 10:54 10:54 WBC 10.30 (4.8-10.8) K/uL RBC 2.57 L (4.2-5.4) M/uL Hgb 7.8 L (12.0-16.0) g/dL Hct 26.8 L (37-47) % MCV 104.3 H (80-100) fL MCH 30.4 (25-34) pg MCHC 29.1 L (32-36) g/dL RDW Std Deviation 58.9 H (36.4-46.3) fL RDW Coeff of Arabella 15.3 H (11.5-14.5) % Plt Count 171 (130-400) K/uL MPV 9.4 (7.4-10.4) fL Immature Gran % (Auto) 0.8 % Neut % (Auto) 76.6 % Lymph % (Auto) 14.3 % Logan % (Auto) 5.9 % Eos % (Auto) 2.3 % Baso % (Auto) 0.1 % Immature Gran # (Auto) 0.08 H (0.00-0.02) K/uL Neut # (Auto) 7.89 H (1.4-6.5) K/uL Lymph # (Auto) 1.47 (1.2-3.4) K/uL Logan # (Auto) 0.61 H (0.11-0.59) K/uL Eos # (Auto) 0.24 (0-0.5) K/uL Baso # (Auto) 0.01 (0-0.2) K/uL Basophilic Stippling 2+ Macrocytosis Present Stomatocytes 1+ PT Cancelled INR Cancelled APTT Cancelled PTT Ratio Cancelled VBG pH (7.36-7.41) VBG pCO2 (38-50) mmHg VBG pO2 mmHg VBG HCO3 mmol/L VBG O2 Saturation % VBG Base Excess mEq/L Barometric Pressure mm/Hg Sodium 140 (136-145) mmol/L Potassium 4.3 (3.5-5.1) mmol/L Chloride 98 (98-107) mmol/L Carbon Dioxide 40 H (21-32) mmol/L Anion Gap 2.0 L (3-11) BUN 49 H (7-18) mg/dl Creatinine 1.65 H (0.6-1.2) mg/dl Est Cr Clr Drug Dosing 38.9 ml/min Est GFR ( Amer) 36.1 Est GFR (Non-Af Amer) 31.1 BUN/Creatinine Ratio 29.5 H (10-20) Glucose 89 (70-99) mg/dl POC Glucose (70-99) Lactate (0.4-2.0) mmol/L Calcium 9.6 (8.5-10.1) mg/dl Magnesium 2.2 (1.8-2.4) mg/dl Total Bilirubin 0.3 (0.2-1) mg/dl Direct Bilirubin < 0.1 (0-0.2) mg/dl AST 11 L (15-37) U/L ALT 18 (12-78) U/L Alkaline Phosphatase 66 (45-117) U/L Troponin I < 0.015 (0-0.045) ng/ml NT-Pro-B Natriuret Pep 549 (0-900) pg/ml Total Protein 6.6 (6.4-8.2) gm/dl Albumin 2.9 L (3.4-5.0) gm/dl Lipase 110 (73-393) U/L Procalcitonin (0-0.5) ng/ml 12/28/18 12/28/18 12/28/18 Range/Units 10:54 12:52 12:52 WBC (4.8-10.8) K/uL RBC (4.2-5.4) M/uL Hgb (12.0-16.0) g/dL Hct (37-47) % MCV (80-100) fL MCH (25-34) pg MCHC (32-36) g/dL RDW Std Deviation (36.4-46.3) fL RDW Coeff of Arabella (11.5-14.5) % Plt Count (130-400) K/uL MPV (7.4-10.4) fL Immature Gran % (Auto) % Neut % (Auto) % Lymph % (Auto) % Logan % (Auto) % Eos % (Auto) % Baso % (Auto) % Immature Gran # (Auto) (0.00-0.02) K/uL Neut # (Auto) (1.4-6.5) K/uL Lymph # (Auto) (1.2-3.4) K/uL Logan # (Auto) (0.11-0.59) K/uL Eos # (Auto) (0-0.5) K/uL Baso # (Auto) (0-0.2) K/uL Basophilic Stippling Macrocytosis Stomatocytes PT INR APTT PTT Ratio VBG pH 7.30 L (7.36-7.41) VBG pCO2 86 H (38-50) mmHg VBG pO2 25 mmHg VBG HCO3 41 mmol/L VBG O2 Saturation < 60.0 % VBG Base Excess 12.9 mEq/L Barometric Pressure 726.7 mm/Hg Sodium (136-145) mmol/L Potassium (3.5-5.1) mmol/L Chloride (98-107) mmol/L Carbon Dioxide (21-32) mmol/L Anion Gap (3-11) BUN (7-18) mg/dl Creatinine (0.6-1.2) mg/dl Est Cr Clr Drug Dosing ml/min Est GFR ( Amer) Est GFR (Non-Af Amer) BUN/Creatinine Ratio (10-20) Glucose (70-99) mg/dl POC Glucose (70-99) Lactate 0.4 (0.4-2.0) mmol/L Calcium (8.5-10.1) mg/dl Magnesium (1.8-2.4) mg/dl Total Bilirubin (0.2-1) mg/dl Direct Bilirubin (0-0.2) mg/dl AST (15-37) U/L ALT (12-78) U/L Alkaline Phosphatase (45-117) U/L Troponin I (0-0.045) ng/ml NT-Pro-B Natriuret Pep (0-900) pg/ml Total Protein (6.4-8.2) gm/dl Albumin (3.4-5.0) gm/dl Lipase (73-393) U/L Procalcitonin 0.10 (0-0.5) ng/ml 12/28/18 12/28/18 12/28/18 Range/Units 12:56 13:23 14:52 WBC (4.8-10.8) K/uL RBC (4.2-5.4) M/uL Hgb (12.0-16.0) g/dL Hct (37-47) % MCV (80-100) fL MCH (25-34) pg MCHC (32-36) g/dL RDW Std Deviation (36.4-46.3) fL RDW Coeff of Arabella (11.5-14.5) % Plt Count (130-400) K/uL MPV (7.4-10.4) fL Immature Gran % (Auto) % Neut % (Auto) % Lymph % (Auto) % Logan % (Auto) % Eos % (Auto) % Baso % (Auto) % Immature Gran # (Auto) (0.00-0.02) K/uL Neut # (Auto) (1.4-6.5) K/uL Lymph # (Auto) (1.2-3.4) K/uL Logan # (Auto) (0.11-0.59) K/uL Eos # (Auto) (0-0.5) K/uL Baso # (Auto) (0-0.2) K/uL Basophilic Stippling Macrocytosis Stomatocytes PT 10.3 INR 1.0 APTT 21.5 PTT Ratio 0.8 VBG pH 7.32 L (7.36-7.41) VBG pCO2 83 H (38-50) mmHg VBG pO2 43 mmHg VBG HCO3 42 mmol/L VBG O2 Saturation < 60.0 % VBG Base Excess 14.2 mEq/L Barometric Pressure 725.6 mm/Hg Sodium (136-145) mmol/L Potassium (3.5-5.1) mmol/L Chloride (98-107) mmol/L Carbon Dioxide (21-32) mmol/L Anion Gap (3-11) BUN (7-18) mg/dl Creatinine (0.6-1.2) mg/dl Est Cr Clr Drug Dosing ml/min Est GFR ( Amer) Est GFR (Non-Af Amer) BUN/Creatinine Ratio (10-20) Glucose (70-99) mg/dl POC Glucose 100 H (70-99) Lactate (0.4-2.0) mmol/L Calcium (8.5-10.1) mg/dl Magnesium (1.8-2.4) mg/dl Total Bilirubin (0.2-1) mg/dl Direct Bilirubin (0-0.2) mg/dl AST (15-37) U/L ALT (12-78) U/L Alkaline Phosphatase (45-117) U/L Troponin I (0-0.045) ng/ml NT-Pro-B Natriuret Pep (0-900) pg/ml Total Protein (6.4-8.2) gm/dl Albumin (3.4-5.0) gm/dl Lipase (73-393) U/L Procalcitonin (0-0.5) ng/ml Imaging Data Radiologist's Impression: Radiology results as stated below per my review and the radiologist's interpretation: XR chest 1V portable CLINICAL HISTORY: Cough. COMPARISON STUDY: Chest radiograph December 23, 2018. FINDINGS: Right shoulder arthroplasty and kyphoplasty are incidentally noted. There is no pneumothorax. Blunting of the left costophrenic angle is unchanged. Old right rib fractures are noted. Interstitial thickening is unchanged. IMPRESSION: No acute cardiopulmonary findings. No change in appearance of the chest. Electronically signed by: Quentin Maier M.D. 12/28/2018 12:47 PM ECG Data Attestation: I personally reviewed and interpreted this ECG as follows: Indication: SOB/dyspnea Rate (beats per minute): 75 Rhythm: sinus rhythm Findings: + other (rodri 210, QRS interval 130, QT-c interval 444) and + 1st degree AV block; no ST depression and no ST elevation Blood Pressure Blood Pressure Findings: Elevated blood pressure Blood Pressure Disposition: further management by hospitalist [facility] Narrative 1206: EMR reviewed. Patient was admitted to the hospital from December 10 to December 14 for pneumonia. She was also admitted to the hospital from November 28 to November 10 for COPD exacerbation. She has a history of severe COPD, respiratory failure, hyperthyroidism, hyperlipidemia, right sided heart failure, CKD stage 4, is on 4 L O2 at all time, and is not on anticoagulation. 1210: Past medical records reviewed. The patient was evaluated in room C10. A complete history and physical exam was performed. 1405: No signs stable on supplemental oxygen at baseline. Patient's labs show a venous pH of 7.3 and a venous PCO2 of 86. There is a higher than patient's baseline what appears to be a CO2 of 65. Her labs show she is compensatory resp iratory acidosis with metabolic alkalosis. Her bicarb level is 40. Hemoglobin is 7.8. Baseline hemoglobin is 8.5. I placed the patient on Bi-PAP at this time. I updated her on her test results and the treatment plan. She verbally agrees and understands. 1439: I discussed the patient's case [email or web address]. She and Dr. Prescott will evaluate the patient for further management. 1450: I performed a rectal exam at this time with female data entry representative Kajal reardon in the room. She had dark black stools that were Hemoccult positive. Kajal states that she will start the patient on the necessary medications for the GI bleed. Her repeat VBG shows a pH of 7.32, PCO2 improving at 83. Impression & Plan GI bleed, COPD exacerbation, Respiratory acidosis Critical Care Time Critical Care Time: Yes Total Critical Care Time: 41 I have personally spent 41 minutes of critical care time in the direct maya gement of this patient. This includes bedside care, interpretation of diagnostic studies, and testing, discussion with consultants, patient, and family members, and other required patient management activities. This 41 minutes is in excess of all separately billable procedures. Discharge Plan Visit Data Chief Complaint: Illness ED Provider: Aramis Amaya Discharge Problem: GI bleed, COPD exacerbation, Respiratory acidosis Patient Disposition: Being Evaluated by Hospitalist Discharge Instructions Interventions: ED Discharge Assessment Last Done: 12/28/18 16:59 Forms Stand Alone Forms: [facility] Prescriptions Prescriptions: No Action Breo Ellipta 200-25 mcg/dose Blister With Device 1 inh INHALATION DAILY RF: 0 multivitamin Tablet 1 tab PO DAILY RF: 0 losartan 50 mg Tablet 50 mg PO DAILY RF: 0 metolazone 2.5 mg Tablet 2.5 mg PO MOFR RF: 0 propafenone 150 mg Tablet 150 mg PO Q8H RF: 0 gabapentin 600 mg Tablet 600 mg PO TID RF: 0 atorvastatin 20 mg Tablet 20 mg PO QPM RF: 0 metoprolol succinate 50 mg Tablet Extended Release 24 Hr 50 mg PO DAILY RF: 0 aspirin [Aspir-81] 81 mg Tablet,Delayed Release (Dr/Ec) 81 mg PO DAILY RF: 0 levothyroxine 88 mcg Tablet 88 mcg PO DAILYBB RF: 0 ranitidine HCl 150 mg Tablet 150 mg PO BID RF: 0 sertraline [Zoloft] 25 mg Tablet 25 mg PO DAILY RF: 0 omeprazole 20 mg Capsule,Delayed Release(Dr/Ec) 20 mg PO DAILYBB RF: 0 bumetanide 1 mg Tablet 1 mg PO BID RF: 0 allopurinol 300 mg Tablet 300 mg PO DAILY RF: 0 cholecalciferol (vitamin D3) [Vitamin D3] 2,000 unit Tablet 2,000 unit PO QAM RF: 0 Lactinex 1 million cell Tablet,Chewable 1 tab PO TID RF: 0 Daliresp 500 mcg Tablet 500 mcg PO DAILY RF: 0 potassium chloride 20 mEq Tablet Extended Release 20 meq PO Q OTHER DAY RF: 0 meloxicam [Mobic] 15 mg Tablet 15 mg PO DAILY RF: 0 acetaminophen [Tylenol] 325 mg Capsule 650 mg PO Q4 PRN (Reason: Fever Or Pain) RF: 0 albuterol sulfate 2.5 mg /3 mL (0.083 %) Solution For Nebulization 2.5 mg INHALATION Q6 PRN (Reason: Shortness Of Breath Or Wheezing) RF: 0 Referrals Referrals: Babak Melendez MD [Primary Care Provider] - Discharge Problem: GI bleed Qualifiers: GI bleed type/associated pathology: unspecified gastrointestinal hemorrhage type Qualified Code(s): K92.2 - Gastrointestinal hemorrhage, unspecified The scribe's documentation has been prepared under my direction and personally reviewed by me in its entirety. I confirm that the note above accurately reflects all work, treatment, procedures, and medical decision making performed by me.
[2018-12-28] MEDS ORDERED: POLYETHYLENE (MIRALAX) 17 GM PACK PO PRN (17:42)
[2018-12-28] MEDS ORDERED: ACETAMINOPHEN 325 MG TAB PO PRN (17:42)
[2018-12-28] MEDS ORDERED: SODIUM CHLORIDE 0.9% 1000ML 1,000 ML IV SCH (17:42)
[2018-12-28] MEDS ORDERED: NON-FORMULARY MEDICATION (Omeprazole 20 MG) PO SCH (17:42)
[2018-12-28] MEDS ORDERED: ONDANSETRON INJ 2 MG/ML 2 ML VIAL IV PRN (17:42)
[2018-12-28] MEDS: PANTOprazole 40 MG in SYRINGE 0 ML IV SCH ×2 (18:22→23:36)
[2018-12-28] MEDS: methylPREDNISolone 40 MG in SYRINGE 0 ML IV SCH (18:23)
[2018-12-28] MEDS: DOXYCYCLINE HYCLATE 100 MG in DEXTROSE 5% 100 ML IV SCH (19:16)
[2018-12-28] MEDS: ALBUT/IPRATROP 3MG/0.5MG NEB 3 ML VIAL NEB SCH ×3 (19:20→23:06)
[2018-12-28] MEDS: POTASSIUM CHLORIDE 20 MEQ TABCR PO SCH (19:38)
[2018-12-28] MEDS: LACTOBACILLUS ACIDOPHILUS (FLORANEX) TAB PO SCH (20:21)
[2018-12-28] MEDS: ATORVASTATIN 20 MG TAB PO SCH (20:22)
[2018-12-28] MEDS: PROPAFENONE HCL 150 MG TABLET PO SCH (20:22)
[2018-12-28] MEDS: GABAPENTIN 600 MG TAB PO SCH (20:23)
[2018-12-28 20:35] LABS: Hematocrit (blood only) 24.7 % (37-47); Hemoglobin 7.3 g/dL (12.0-16.0)
[2018-12-28] MEDS ORDERED: SODIUM CHLORIDE 0.9% 250 ML IV PRN (23:00)
[2018-12-29] MEDS: methylPREDNISolone 40 MG in SYRINGE 0 ML IV SCH ×3 (02:17→18:33)
[2018-12-29 02:20] LABS: Hematocrit (blood only) 25.8 % (37-47); Hemoglobin 7.8 g/dL (12.0-16.0); Mean Corpuscular Hgb Conc 30.2 g/dL (32-36); Mean Corpuscular Volume 100.4 fL (80-100); Mean Platelet Volume 9.2 fL (7.4-10.4); Platelet Count 147 K/uL (130-400); RDW Standard Deviation 55.3 fL (36.4-46.3); Red Blood Count 2.57 M/uL (4.2-5.4); White Blood Count 8.59 K/uL (4.8-10.8)
[2018-12-29 02:22] LABS: HCO3 ABG 37 mmol/L (19-24); Oxygen Saturation ABG 95.9 % (90-95); PCO2 ABG 66 mmHg (35-46); PO2 ABG 98 mm/Hg (80-95); pH ABG 7.36 (7.35-7.45)
[2018-12-29 02:30] LABS: Allen Test Pos (Pos)
[2018-12-29 02:38] LABS: BUN Creatinine Ratio 29.8 (10-20); Calcium 8.8 mg/dl (8.5-10.1); Creatinine Clr Calc Pharmacy 41.7 ml/min; Est GFR (African American) 39.2; Est GFR (Non-African American) 33.8; Magnesium 2.1 mg/dl (1.8-2.4); Potassium 4.8 mmol/L (3.5-5.1)
[2018-12-29] MEDS: ALBUT/IPRATROP 3MG/0.5MG NEB 3 ML VIAL NEB SCH ×6 (03:58→23:46)
[2018-12-29] MEDS: DOXYCYCLINE HYCLATE 100 MG in DEXTROSE 5% 100 ML IV SCH ×2 (05:40→18:33)
[2018-12-29] MEDS: PROPAFENONE HCL 150 MG TABLET PO SCH ×3 (05:40→19:49)
[2018-12-29] MEDS: LEVOTHYROXINE SODIUM 88 MCG TABLET PO SCH (05:41)
[2018-12-29] MEDS ORDERED: COUGH DROP (SUGAR FREE) LOZ 24 LOZ/1 BOX BUCCAL ONE (06:26)
[2018-12-29] MEDS ORDERED: PANTOprazole 40 MG TAB PO SCH (06:30)
[2018-12-29] MEDS ORDERED: COUGH DROP (SUGAR FREE) LOZ 24 LOZ/1 BOX BUCCAL PRN (06:32)
[2018-12-29] MEDS: ALLOPURINOL 300 MG TAB PO SCH (08:04)
[2018-12-29] MEDS: BUMETANIDE 1 MG TAB PO SCH ×2 (08:04→17:03)
[2018-12-29] MEDS: SERTRALINE HCL 50 MG TABLET PO SCH (08:06)
[2018-12-29] MEDS: MULTIVITAMIN TAB PO SCH (08:06)
[2018-12-29] MEDS: CHOLECALCIFEROL 1,000 UNITS TAB PO SCH (08:06)
[2018-12-29] MEDS: ROFLUMILAST 500 MCG TAB PO SCH (08:07)
[2018-12-29] MEDS: LOSARTAN POTASSIUM 50 MG TAB PO SCH (08:07)
[2018-12-29] MEDS: METOPROLOL SUCC 50MG EXT REL TAB PO SCH (08:07)
[2018-12-29] MEDS: GABAPENTIN 600 MG TAB PO SCH ×3 (08:08→19:50)
[2018-12-29] MEDS: LACTOBACILLUS ACIDOPHILUS (FLORANEX) TAB PO SCH ×3 (08:08→19:49)
[2018-12-29] MEDS: PANTOprazole 40 MG in SYRINGE 0 ML IV SCH ×2 (09:32→20:07)
--- NOTE | 2018-12-29 09:49 | Gastrointestinal Consultation ---
Date of Consultation December 29, 2018 Assessment & Plan (1) Anemia: -Continue to monitor H/H -See Melena Present on Admission?: Yes (2) Melena: -IV Protonix 40 mg BID -Carafate 1 gm four times daily before meals and at bedtime -Avoid Aspirin & Meloxicam -Patient had a large amount of black stool prior to my visit. Plan for EGD for further evaluation of symptoms. Give dose of IV Reglan prior to EGD. Supervising Physician Co-Signing Physician Notes Agree with ITZEL Alcazar as above Abd: Soft, NT, ND, +BS Patient ate a full breakfast this AM. Therefore, she could not undergo EGD today H/H stable Continue current therapy Clear liquids today NPO after midnight Proceed with EGD in AM History of Present Illness Attending Physician: Bautista Casper MD History of Present Illness Patient is a 68 yo female with a PMH of COPD, chronic respiratory failure, chronic anemia, CKD4, A fib, HTN, HLD, GERD & obesity who is hospitalized with acute respiratory failure. GI has been consulted for melena, heme positive stools, & anemia. Patient's baseline hemoglobin is around 8-9 but was noted to be 7.8/25.8. She reports an episode of black, tarry stool this AM. She denies a history of stomach ulcers. She does have a history of Meloxicam & aspirin use. She has been on steroids for respiratory issues. She denies a history of diarrhea or constipation. She denies abdominal pain or heartburn at present. She reports that she previously saw Dr. Victoria for something in the past. Per outpatient records, it appears she had a double for further evaluation of anemia. There was no GI bleeding source identified at that time in 2011. She is presently saturating at 98% on 4 L NC. Allergies Allergy/AdvReac Type Severity Reaction Status Date / Time adhesive Allergy Severe RED RASH Verified 12/28/18 13:03 latex AdvReac Mild TAPE-SORE Verified 12/28/18 13:03 morphine AdvReac Mild DELUSIONS Verified 12/28/18 13:03 Home Medications Home Medications Medication Instructions Recorded Confirmed Type Breo Ellipta 1 inh INHALATION DAILY 03/12/18 12/28/18 History Daliresp 500 mcg PO DAILY 03/12/18 12/28/18 History Lactinex 1 tab PO TID 03/12/18 12/28/18 History allopurinol 300 mg PO DAILY 03/12/18 12/28/18 History aspirin [Aspir-81] 81 mg PO DAILY 03/12/18 12/28/18 History atorvastatin 20 mg PO QPM 03/12/18 12/28/18 History bumetanide 1 mg PO BID 03/12/18 12/28/18 History cholecalciferol (vitamin D3) 2,000 unit PO QAM 03/12/18 12/28/18 History [Vitamin D3] gabapentin 600 mg PO TID 03/12/18 12/28/18 History levothyroxine 88 mcg PO DAILYBB 03/12/18 12/28/18 History losartan 50 mg PO DAILY 03/12/18 12/28/18 History metolazone 2.5 mg PO MOFR 03/12/18 12/28/18 History metoprolol succinate 50 mg PO DAILY 03/12/18 12/28/18 History multivitamin 1 tab PO DAILY 03/12/18 12/28/18 History omeprazole 20 mg PO DAILYBB 03/12/18 12/28/18 History potassium chloride 20 meq PO Q OTHER DAY 03/12/18 12/28/18 History propafenone 150 mg PO Q8H 03/12/18 12/28/18 History ranitidine HCl 150 mg PO BID 03/12/18 12/28/18 History sertraline [Zoloft] 25 mg PO DAILY 03/12/18 12/28/18 History acetaminophen [Tylenol] 650 mg PO Q4 PRN 08/07/18 12/28/18 History albuterol sulfate 2.5 mg INHALATION Q6 PRN 08/07/18 12/28/18 History meloxicam [Mobic] 15 mg PO DAILY 08/07/18 12/28/18 History Patient History Medical History Chronic respiratory failure with hypoxia, on home O2 therapy (Chronic) Anemia (Chronic) Chronic anemia (Chronic) Diarrhea DVT prophylaxis Diastolic CHF, chronic (Chronic) Acute bronchitis COPD exacerbation GERD (gastroesophageal reflux disease) (Chronic) Depression (Chronic) Myocardial infarction (Chronic) "per patient, details unknown" COPD (chronic obstructive pulmonary disease) (Chronic) Paroxysmal a-fib (Chronic) HTN (hypertension) (Chronic) Dyslipidemia (Chronic) EVONNE (iron deficiency anemia) (Chronic) CKD (chronic kidney disease), stage IV (Chronic) Asthma (Chronic) Lumbar spinal stenosis (Chronic) Morbid obesity (Chronic) Obesity hypoventilation syndrome (Chronic) Chronic respiratory failure (Chronic) Surgical History S/P cervical spinal fusion (Chronic) History of appendectomy (Chronic) Hx of cholecystectomy (Chronic) S/P wrist surgery (Chronic) 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) Family History Father Trauma Mother Diabetes Cerebral aneurysm Daughter Bipolar 1 disorder Social History Preferred Language: Lebanese Communication Ability: Effective 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 Beliefs That Will Affect Care: None marital status: Current Living Situation: Family Current Living Situation Comment: lives with daughter Other Information That Helps Us Care for You: No Feels Safe at Home: Yes Safety Concerns: Feels Safe At This Time Smoking Status: Former smoker Tobacco Type: cigarettes Cigarettes Per Day: 2 packs Do You Dip or Chew Tobacco: No Smoking End Date: at age 55 Hx Alcohol Use: No Hx Substance Use: No Review of Systems Constitutional: + fatigue Eyes: no acute complaints Respiratory: + dyspnea Cardiovascular: no chest pain Gastrointestinal: + melena; no abdominal pain Musculoskeletal: no back pain Integumentary: no rash no acute complaints Neurologic: no confusion Endocrine: + fatigue Physical Exam Constitutional: + morbidly obese Eyes: PERRL, conjunctivae normal, anicteric sclerae ENMT: external ear and nose normal, oropharynx normal Neck: normal visual inspection Respiratory: + cough Auscultation: + wheezes Cardiovascular: RRR, no murmur, no edema Gastrointestinal (Abdomen): normal bowel sounds, soft, nontender, no hepatosplenomegaly Musculoskeletal: no cyanosis or clubbing, extremities motor strength 5/5 Skin: no rashes, warm and dry Neurologic: Speech / Cognition: normal speech Psychiatric: A+Ox3, euthymic affect Results & Data Vital Signs (Past 12 Hours) Vital Signs Temp Pulse Pulse Pulse Resp BP Pulse Ox 12/29/18 07:04 74 20 98 06/20/19 07:03 36.6 C 73 20 126/48 L 98 12/29/18 07:00 73 12/29/18 04:12 36.7 C 80 20 136/71 95 12/29/18 03:58 68 20 97 12/29/18 03:34 76 12/28/18 23:26 76 24 97 12/28/18 23:06 74 20 98 12/28/18 22:56 36.8 C 73 21 113/72 97
[2018-12-29] MEDS ORDERED: METOCLOPRAMIDE HCL INJ 5 MG/ML 2 ML VIAL IV STA (10:24)
[2018-12-29] MEDS: SUCRALFATE 1 GM/10 ML UDC PO SCH ×3 (12:43→19:50)
--- NOTE | 2018-12-29 13:14 | Anesthesiology Consultation ---
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 Pt to be further assessed in endo suite by anesthesia the day of the procedure. History Surgery Operation Date: 12/30/18 08:30 Proposed Procedures p Esophagogastroduodenoscopy Dr Brandt - Grey Rodriguez Case, DO Height/Weight Height: 5 ft 4 in Weight: 111.7 kg Allergies Allergy/AdvReac Type Severity Reaction Status Date / Time adhesive Allergy Severe RED RASH Verified 12/28/18 13:03 latex AdvReac Mild TAPE-SORE Verified 12/28/18 13:03 morphine AdvReac Mild DELUSIONS Verified 12/28/18 13:03 Medications Home Medications Medication Instructions Recorded Confirmed Last Taken Breo Ellipta 1 inh INHALATION DAILY 03/12/18 12/28/18 11/27/18 Daliresp 500 mcg PO DAILY 03/12/18 12/28/18 11/27/18 Lactinex 1 tab PO TID 03/12/18 12/28/18 11/27/18 allopurinol 300 mg PO DAILY 03/12/18 12/28/18 11/27/18 aspirin [Aspir-81] 81 mg PO DAILY 03/12/18 12/28/18 11/27/18 atorvastatin 20 mg PO QPM 03/12/18 12/28/18 11/27/18 bumetanide 1 mg PO BID 03/12/18 12/28/18 11/27/18 cholecalciferol (vitamin D3) 2,000 unit PO QAM 03/12/18 12/28/18 11/27/18 [Vitamin D3] gabapentin 600 mg PO TID 03/12/18 12/28/18 11/27/18 levothyroxine 88 mcg PO DAILYBB 03/12/18 12/28/18 11/28/18 losartan 50 mg PO DAILY 03/12/18 12/28/18 11/27/18 metolazone 2.5 mg PO MOFR 03/12/18 12/28/18 11/25/18 metoprolol succinate 50 mg PO DAILY 03/12/18 12/28/18 11/27/18 multivitamin 1 tab PO DAILY 03/12/18 12/28/18 11/27/18 omeprazole 20 mg PO DAILYBB 03/12/18 12/28/18 11/27/18 potassium chloride 20 meq PO Q OTHER DAY 03/12/18 12/28/18 Unknown propafenone 150 mg PO Q8H 03/12/18 12/28/18 11/27/18 ranitidine HCl 150 mg PO BID 03/12/18 12/28/18 11/27/18 sertraline [Zoloft] 25 mg PO DAILY 03/12/18 12/28/18 11/27/18 acetaminophen [Tylenol] 650 mg PO Q4 PRN 08/07/18 12/28/18 11/26/18 albuterol sulfate 2.5 mg INHALATION Q6 PRN 08/07/18 12/28/18 Unknown meloxicam [Mobic] 15 mg PO DAILY 08/07/18 12/28/18 11/27/18 Active Medications Generic Name Dose Route Start Last Admin Trade Name Freq PRN Reason Stop Dose Admin Albuterol 3 ml 12/28/18 17:42 12/29/18 11:02 Duoneb NEB 01/27/19 17:41 3 ml Q4R VAHID Administration Allopurinol 300 mg 12/29/18 09:00 12/29/18 08:04 Zyloprim PO 01/28/19 08:59 300 mg DAILY VAHID Administration Atorvastatin Calcium 20 mg 12/28/18 21:00 12/28/18 20:22 Lipitor PO 01/27/19 20:59 20 mg QPM VAHID Administration Bumetanide 1 mg 12/29/18 09:00 12/29/18 08:04 Bumex PO 01/28/19 08:59 1 mg BID17 VAHID Administration Gabapentin 600 mg 12/28/18 21:00 12/29/18 08:08 Neurontin PO 01/27/19 20:59 600 mg TID VAHID Administration Doxycycline Hyclate 100 mg/ 110 mls @ 50 mls/hr 12/28/18 18:00 12/29/18 08:03 Dextrose IV 01/04/19 17:59 Infused Q12H VAHID Infusion Methylprednisolone 40 mg/ 0.64 mls @ 1.5 mls/min 12/28/18 18:00 12/29/18 09:32 Syringe IV 01/27/19 17:59 1.5 mls/min Q8H VAHID Administration Pantoprazole Sodium 40 mg/ 10 mls @ 5 mls/min 12/28/18 18:00 12/29/18 09:32 Syringe IV 01/27/19 17:59 5 mls/min BID@0900,2100 VAHID Administration Lactobacillus Acidophilus 4 tab 12/28/18 21:00 12/29/18 08:08 Floranex PO 01/27/19 20:59 4 tab TID VAHID Administration Protocol Levothyroxine Sodium 88 mcg 12/29/18 06:30 12/29/18 05:41 Synthroid PO 01/28/19 06:29 88 mcg DAILYBB VAHID Administration Losartan Potassium 50 mg 12/29/18 09:00 12/29/18 08:07 Cozaar PO 01/28/19 08:59 50 mg DAILY VAHID Administration Menthol 1 christ 12/29/18 06:32 12/29/18 08:09 Nice BUCCAL 01/28/19 06:31 1 christ PRN PRN Administration Sore Throat Metoprolol Succinate 50 mg 12/29/18 09:00 12/29/18 08:07 Toprol Xl PO 01/28/19 08:59 50 mg DAILY VAHID Administration Miscellaneous 1 ea 12/29/18 00:00 12/29/18 08:04 Order Awaiting Action N/A 01/28/19 00:00 Not Given QS VAHID Multivitamins 1 tab 12/29/18 09:00 12/29/18 08:06 Multivitamin Tab PO 01/28/19 08:59 1 tab DAILY VAHID Administration Potassium Chloride 20 meq 12/28/18 09:00 12/28/18 19:38 Klor-Con M20 PO 01/27/19 08:59 Not Given Q2D VAHID Propafenone HCl 150 mg 12/28/18 20:00 12/29/18 05:40 Rythmol PO 01/27/19 19:59 150 mg Q8 VAHID Administration Ranitidine HCl 150 mg 12/28/18 21:00 12/29/18 08:07 Zantac PO 01/27/19 20:59 150 mg BID VAHID Administration Roflumilast 500 mcg 12/29/18 09:00 12/29/18 08:07 Daliresp PO 01/28/19 08:59 500 mcg DAILY VAHID Administration Sertraline HCl 25 mg 12/29/18 09:00 12/29/18 08:06 Zoloft PO 01/28/19 08:59 25 mg DAILY VAHID Administration Sucralfate 1 gm 12/29/18 13:00 12/29/18 12:43 Carafate PO 01/28/19 12:59 1 gm QID VAHID Administration Vitamin D 2,000 units 12/29/18 09:00 12/29/18 08:06 Vitamin D3 PO 01/28/19 08:59 2,000 units QAM VAHID Administration Past Medical History Medical History Chronic respiratory failure with hypoxia, on home O2 therapy (Chronic) Anemia (Chronic) Chronic anemia (Chronic) Diarrhea DVT prophylaxis Diastolic CHF, chronic (Chronic) Acute bronchitis COPD exacerbation GERD (gastroesophageal reflux disease) (Chronic) Depression (Chronic) Myocardial infarction (Chronic) "per patient, details unknown" COPD (chronic obstructive pulmonary disease) (Chronic) Paroxysmal a-fib (Chronic) HTN (hypertension) (Chronic) Dyslipidemia (Chronic) EVONNE (iron deficiency anemia) (Chronic) CKD (chronic kidney disease), stage IV (Chronic) Asthma (Chronic) Lumbar spinal stenosis (Chronic) Morbid obesity (Chronic) Obesity hypoventilation syndrome (Chronic) Chronic respiratory failure (Chronic) Past Family History Family History Father Trauma Mother Diabetes Cerebral aneurysm Daughter Bipolar 1 disorder Past Surgical History Surgical History S/P cervical spinal fusion (Chronic) History of appendectomy (Chronic) Hx of cholecystectomy (Chronic) S/P wrist surgery (Chronic) 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) Social History Smoking Status: Former smoker tobacco type: cigarettes Smoking cigarettes per day: 2 packs Do You Dip or Chew Tobacco: No Smoking End Date: at age 55 Hx Alcohol Use: No Hx Substance Use: No Physical Exam Vital Signs Last Vital Signs Temp 36.6 C 12/29/18 07:03 Pulse 113 H 12/29/18 11:06 Resp 20 12/29/18 11:06 BP 126/48 L 12/29/18 07:03 Pulse Ox 97 12/29/18 11:06 Testing Laboratory Results 12/29/18 02:10 12/29/18 02:10 PT 10.3 Seconds (9.0-12.0) 12/28/18 13:23 INR 1.0 (0.9-1.1) 12/28/18 13:23 APTT 21.5 Seconds (21.0-31.0) 12/28/18 13:23 Blood Type A Positive 12/28/18 21:22 Antibody Screen NEGATIVE 12/28/18 21:22 12/29/18 12/29/18 11:45 07:31 POC Glucose 194 H 204 H Electrocardiogram Date: 12/28/18 Sinus rhythm with 1st degree A-V block, Incomplete right bundle branch block, When compared with ECG of 23-DEC-2018 03:42, QT has lengthened (QTc 444)
--- NOTE | 2018-12-29 16:38 | Hospitalist Progress Note ---
Date of Service December 29, 2018 Assessment & Plan (1) COPD exacerbation: (2) Chronic respiratory failure with hypoxia and hypercapnia: Patient is a 68 yr female with H/O COPD with chronic respiratory failure and hypercarbia on 4 L O2 via NC, A. fib, chronic diastolic heart failure, CKD stage IIIB-IV,HTN, HLD, hx of tobacco abuse, hypothyroidism, depression with anxiety who presents to [facility] ED secondary to increasing SOB and muscle spasms. Acute on Chronic COPD Exacerbation Chronic oxygen dependency-4 L at baseline CXR no acute abnormality BiPAP PRN Continue doxycycline, Solu-medrol, nebs, home inhalers Supplemental oxygen as needed Pulmonology consulted (3) Heme positive stool: Melena: Hb dropped to 7.8 +FOBT Monitor H&H, transfuse PRBCs as needed Continue PPI, sucralfate repeat FOBT Hold aspirin, meloxicam Appreciate gastroenterology input N.p.o. after midnight, for EGD in the morning (4) Chronic anemia: baseline hgb ~ 8-9 Hb 7.8 management as above (5) Diastolic CHF, chronic: Euvolemic continue losartan, metoprolol, bumex, zaroxlyn Monitor volume status (6) CKD (chronic kidney disease), stage IV: baseline CR ~ 1.5 Monitor renal function (7) Paroxysmal a-fib: Continue metoprolol, propafenone off OAC due to hx of GIB per records (8) HTN (hypertension): Stable continue losartan, metoprolol and diuretics (9) Dyslipidemia: continue statin (10) GERD (gastroesophageal reflux disease): continue ranitidine, PPI (11) Morbid obesity: BMI 42.5 encourage lifestyle modifications (12) DVT prophylaxis: SCDS/TEDS Re: GI bleed Disposition: Expect to discharge home when stable Subjective Patient seen and examined at bedside Cough, shortness of breath slowly improving Had black-colored tarry stools this morning Denies any chest pain, nausea, abdominal pain, dizziness Offers no other complaints Review of Systems Review of Systems: All systems reviewed & are unremarkable except as noted in HPI & below Physical Exam Physical Exam: Physical Exam: Vitals signs as noted above General Appearance:Obese, no apparent distress Head: normocephalic, Atraumatic Eyes: normal inspection, EOMI Neck: supple, Trachea midline Respiratory/Chest: Decreased breath sounds, +Rhonchi Cardiovascular: S1, S2, No murmur Abdomen/GI:Soft, Non tender, Bowel sounds present Extremities/Musculoskelatal:normal inspection, no edema Neurologic/Psych:AAOX3, grossly no focal neurological deficits Skin: normal color, warm Results & Data Vital Signs (Past 12 Hours) Vital Signs Temp Pulse Pulse Pulse Resp BP Pulse Ox 12/29/18 15:43 36.7 C 73 20 115/75 97 12/29/18 15:12 71 18 98 12/29/18 11:06 113 H 20 97 12/29/18 07:04 74 20 98 12/29/18 07:03 36.6 C 73 20 126/48 L 98 12/29/18 07:00 73 Laboratory Results Short CBC 12/28/18 12/29/18 Range/Units 20:25 02:10 WBC 8.59 (4.8-10.8) K/uL Hgb 7.3 L 7.8 L (12.0-16.0) g/dL Hct 24.7 L 25.8 L (37-47) % Plt Count 147 (130-400) K/uL BMP 12/29/18 02:10 Sodium 139 Potassium 4.8 Chloride 99 Carbon Dioxide 37 H BUN 46 H Creatinine 1.54 H Glucose 220 H Calcium 8.8
[2018-12-29] MEDS: ATORVASTATIN 20 MG TAB PO SCH (19:49)
--- NOTE | 2018-12-30 00:09 | Consultation Report ---
DATE OF CONSULTATION: 12/29/2018 REASON FOR CONSULTATION: Chronic respiratory failure with hypoxemia and hypercapnia. HISTORY OF PRESENT ILLNESS: A 68-year-old white female well known to me with significant past medical history of severe COPD, acute on chronic respiratory failure on oxygen at 4 liters at home. She also has a history of chronic atrial fibrillation and chronic diastolic heart failure, chronic renal disease stage III as well as a past significant history of tobacco abuse and hypothyroidism. She states she was getting muscle spasms yesterday and worsening dyspnea and was brought into the ER for admission. She most recently had a hospitalization at the beginning of this month and was placed on IV antibiotics that included Levaquin and doxycycline along with a steroid taper. She is currently on IV Solu-Medrol 40 mg q. 8 hours and IV doxycycline 100 mg q. 12 hours as well as vigorous pulmonary toilet. She has had heme positive stools and her hemoglobin has dropped to 7.8. She is currently on IV Protonix and GI consultation has been obtained. She has been in chronic diastolic heart failure and has been on losartan, metoprolol, Bumex and Zaroxolyn as needed. I have been asked to see patient in consultation. The patient states she was improved after her discharge on the , but then symptoms rapidly unraveled to the current point where she is extremely symptomatic with minimal exertion. She is fairly sedentary at home. 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 She was seen by Quiana Lala earlier today and placed on Carafate 1 gram q.i.d. and advised to avoid aspirin and meloxicam. The patient had a large black stool and will be given IV Reglan prior to EGD. She was seen by anesthesia, Dr. Paola Petersen prior to the esophagogastroduodenoscopy to be performed by Dr. Brandt. PHYSICAL EXAMINATION: VITAL SIGNS: The patient is 5 feet 4 inches, 112 kilograms, blood pressure 126/48, pulse 113 and irregular, respiratory rate 20, temperature 36.6, O2 sat 97% on 4 liters. SKIN: Without lesion. HEENT: Atraumatic, normocephalic. PERRLA. LUNGS: Coarse rhonchi diffusely. CARDIAC: Irregularly irregular rhythm. I do not appreciate a gallop. ABDOMEN: Soft, protuberant. EXTREMITIES: 1-2+ pitting edema. NEUROLOGICAL: Cranial nerves II-XII grossly intact. No lateralizing signs. LABORATORY DATA: H and H 7.8 and 25.8 with macrocytic indices. H and H was 10 and 31 back on 12/02/2018. PT, PTT, INR within normal limits. ABGs pH 7.36, pCO2 66, pO2 of 98 on 4 liters, BUN 46, creatinine 1.5, negative for influenza A and B. Chest x-ray, there are no acute findings. Blunting of the left costophrenic angle. OVERALL ASSESSMENT: A 68-year-old with severe chronic obstructive pulmonary disease, cor pulmonale, chronic alveolar hypoventilation, chronic renal insufficiency, chronic diastolic heart failure, now admitted with acute or subacute gastrointestinal bleed and significant anemia to undergo upper endoscopy looking for source of the bleeding. The patient appears to be reasonably well compensated despite this acute gastrointestinal bleed and chest x-ray is clear. I would continue pulmonary toilet and current treatment with no additional recommendations to be made except if she can tolerate it, try to determine the source of the bleeding. We will follow along with you.
[2018-12-30] MEDS: methylPREDNISolone 40 MG in SYRINGE 0 ML IV SCH ×3 (01:40→20:31)
[2018-12-30] MEDS: ALBUT/IPRATROP 3MG/0.5MG NEB 3 ML VIAL NEB SCH ×6 (03:34→23:15)
[2018-12-30] MEDS: LEVOTHYROXINE SODIUM 88 MCG TABLET PO SCH ×2 (05:22→05:26)
[2018-12-30] MEDS: PROPAFENONE HCL 150 MG TABLET PO SCH ×4 (05:22→21:54)
[2018-12-30] MEDS: DOXYCYCLINE HYCLATE 100 MG in DEXTROSE 5% 100 ML IV SCH (05:22)
[2018-12-30 06:53] LABS: Hematocrit (blood only) 25.3 % (37-47); Hemoglobin 7.6 g/dL (12.0-16.0)
[2018-12-30 07:21] LABS: Creatinine Clr Calc Pharmacy 46.8 ml/min; Est GFR (African American) 45.6; Est GFR (Non-African American) 39.3
[2018-12-30] MEDS: SUCRALFATE 1 GM/10 ML UDC PO SCH ×4 (07:40→20:31)
[2018-12-30] MEDS: LACTOBACILLUS ACIDOPHILUS (FLORANEX) TAB PO SCH ×3 (07:40→20:30)
[2018-12-30] MEDS: PANTOprazole 40 MG in SYRINGE 0 ML IV SCH (08:34)
[2018-12-30] MEDS ORDERED: metOLazone 2.5 MG TABLET PO SCH (09:00)
--- NOTE | 2018-12-30 09:18 | History & Physical Bridge Note ---
Date of Service December 30, 2018 History & Physical Bridge Note I have reviewed the History & Physical and in the interval since the performance of the History & Physical I have noted the following changes of clinical significance: no changes noted. H/H is stable at 7.6/25.3. Patient has been kept NPO today. Proceed with EGD this morning. Supervising Physician Co-Signing Physician Notes Agree with ITZEL Alcazar as above Abd: Soft, NT, ND, +BS Continue current therapy Proceed with EGD
[2018-12-30] MEDS ORDERED: BENZOCAIN/TETRACA/BUTAM SPRAY 200 APPLN/20 GM SPRY EXT ONE (10:17)
[2018-12-30] MEDS ORDERED: PROPOFOL IV EMULSION 10 MG/ML 20 ML VIAL IV ONE (10:17)
--- NOTE | 2018-12-30 10:43 | GI REPORT ---
Addendum Number: 1 Addendum Date: 12/30/2018 10:50:35 AM Recommend Protonix 40 mg by mouth twice daily Advance diet as tolerated No plans for colonoscopy at this time, as gastric ulcer is most likely source of GI bleeding. Grey Brandt DO 12/30/2018 10:51:39 AM This report has been signed electronically. Patient Name: Eneida Lee Procedure Date: 12/30/2018 9:56 AM Date of : 1950 Admit Type: Inpatient Age: 68 Gender: Female Attending MD: Grey Brandt DO Procedure: Upper GI endoscopy Providers: Grey Brandt DO Referring MD: Referred Self Indications: Acute post hemorrhagic anemia, Melena Medicines: Monitored Anesthesia Care Complications: No immediate complications. Estimated Blood Loss: Estimated blood loss: none. Procedure: Pre-Anesthesia Assessment: - Prior to the procedure, a History and Physical was performed, and patient medications and allergies were reviewed. The patient's tolerance of previous anesthesia was also reviewed. The risks and benefits of the procedure and the sedation options and risks were discussed with the patient. All questions were answered, and informed consent was obtained. Prior Anticoagulants: The patient has taken no previous anticoagulant or antiplatelet agents. ASA Grade Assessment: IV - A patient with severe systemic disease that is a constant threat to life. After reviewing the risks and benefits, the patient was deemed in satisfactory condition to undergo the procedure. After obtaining informed consent, the endoscope was passed under direct vision. Throughout the procedure, the patient's blood pressure, pulse, and oxygen saturations were monitored continuously. The Endoscope was introduced through the mouth, and advanced to the second part of duodenum. The upper GI endoscopy was accomplished without difficulty. The patient tolerated the procedure well. Findings: The esophagus was normal. One non-bleeding superficial gastric ulcer with no stigmata of bleeding was found in the gastric antrum. The lesion was 8 mm in largest dimension. Biopsies were taken with a cold forceps for histology. The examined duodenum was normal. Impression: - Normal esophagus. - Non-bleeding gastric ulcer with no stigmata of bleeding. Biopsied. - Normal examined duodenum. Recommendation: - Resume previous diet. - Continue present medications. - Await pathology results. - Return to primary care physician as previously scheduled. Grey Jennifer Case, DO 12/30/2018 10:42:37 AM This report has been signed electronically. Note Initiated On: 12/30/2018 9:56 AM Number of Addenda: 1 I attest to the content of the Intraoperative Record and orders documented therein, exceptions below {[id number]}
--- NOTE | 2018-12-30 10:49 | Anesthesiology Progress Note ---
Date of Service December 30, 2018 Anesthesia Post Procedure Vital Signs Vital Signs: Temp Pulse Pulse Pulse Resp BP BP 12/30/18 10:36 68 20 151/56 H 12/30/18 09:28 36.8 C 71 20 140/59 L 12/30/18 07:20 66 20 12/30/18 07:14 36.6 C 67 21 136/73 12/30/18 03:34 68 20 12/30/18 02:55 36.7 C 86 18 123/58 L 12/29/18 23:57 68 20 12/29/18 23:05 36.8 C 71 18 129/69 12/29/18 20:19 75 20 12/29/18 19:37 36.8 C 79 18 126/71 12/29/18 16:00 75 12/29/18 15:43 36.7 C 73 20 115/75 12/29/18 15:12 71 18 12/29/18 11:06 113 H 20 Pulse Ox 12/30/18 10:36 100 12/30/18 09:28 97 12/30/18 07:20 98 12/30/18 07:14 99 12/30/18 03:34 98 12/30/18 02:55 93 12/29/18 23:57 97 12/29/18 23:05 96 12/29/18 20:19 98 12/29/18 19:37 99 12/29/18 16:00 12/29/18 15:43 97 12/29/18 15:12 98 12/29/18 11:06 97 Transfer of Care Handoff Completed per policy Notes Mental Status: alert / awake / arousable and participated in evaluation Nausea / Vomiting: adequately controlled Pain: adequately controlled Airway Patency, RR, SpO2: stable & adequate BP & HR: stable & adequate Hydration State: stable & adequate Anesthetic Complications: no major complications apparent and Pt Satisfied with anesthetic care
[2018-12-30] MEDS: CHOLECALCIFEROL 1,000 UNITS TAB PO SCH (11:33)
[2018-12-30] MEDS: ALLOPURINOL 300 MG TAB PO SCH (11:33)
[2018-12-30] MEDS: POTASSIUM CHLORIDE 20 MEQ TABCR PO SCH (11:34)
[2018-12-30] MEDS: LOSARTAN POTASSIUM 50 MG TAB PO SCH (11:34)
[2018-12-30] MEDS: BUMETANIDE 1 MG TAB PO SCH ×2 (11:34→16:48)
[2018-12-30] MEDS: GABAPENTIN 600 MG TAB PO SCH ×3 (11:35→20:33)
[2018-12-30] MEDS: MULTIVITAMIN TAB PO SCH (11:36)
[2018-12-30] MEDS: METOPROLOL SUCC 50MG EXT REL TAB PO SCH (11:36)
[2018-12-30] MEDS: SERTRALINE HCL 50 MG TABLET PO SCH (11:36)
[2018-12-30] MEDS: ROFLUMILAST 500 MCG TAB PO SCH (11:37)
--- NOTE | 2018-12-30 16:53 | Hospitalist Progress Note ---
Date of Service December 30, 2018 Assessment & Plan (1) COPD exacerbation: (2) Chronic respiratory failure with hypoxia and hypercapnia: Patient is a 68 yr female with H/O COPD with chronic respiratory failure and hypercarbia on 4 L O2 via NC, A. fib, chronic diastolic heart failure, CKD stage IIIB-IV,HTN, HLD, hx of tobacco abuse, hypothyroidism, depression with anxiety who presents to [facility] ED secondary to increasing SOB and muscle spasms. Acute on Chronic COPD Exacerbation Chronic oxygen dependency-4 L at baseline CXR no acute abnormality BiPAP PRN Continue doxycycline, Solu-medrol, nebs, home inhalers Supplemental oxygen as needed Appreciate Pulmonology Input Decrease Solumedrol to BID Cough, SOB improving (3) Heme positive stool: Melena: Hb 7.6 +FOBT S/P EGD: Nonbleeding gastric ulcer with no stigmata of bleeding Monitor H&H, transfuse PRBCs as needed Continue PPI BID, sucralfate Hold aspirin, meloxicam for now Appreciate gastroenterology input Follow up biopsy results of the gastric ulcer (4) Chronic anemia: baseline hgb ~ 8-9 management as above Transfuse PRBCs PRN (5) Diastolic CHF, chronic: Euvolemic continue losartan, metoprolol, bumex, zaroxlyn Monitor volume status (6) CKD (chronic kidney disease), stage IV: baseline CR ~ 1.5 Cr at baseline Monitor renal function (7) Paroxysmal a-fib: Continue metoprolol, propafenone off OAC due to hx of GIB per records (8) HTN (hypertension): Stable continue losartan, metoprolol and diuretics (9) Dyslipidemia: continue statin (10) GERD (gastroesophageal reflux disease): continue ranitidine, PPI (11) Morbid obesity: BMI 42.5 encourage lifestyle modifications (12) DVT prophylaxis: SCDS/TEDS Re: GI bleed Disposition: Expect to discharge home when stable Subjective Patient is seen and examined at bedside Had EGD today Less Cough and shortness of breath No bleeding issues today Denies any chest pain, nausea, abdominal pain, dizziness No other complaints Review of Systems Review of Systems: All systems reviewed & are unremarkable except as noted in HPI & below Physical Exam Physical Exam: Physical Exam: Vitals signs as noted above General Appearance:Obese, no apparent distress Head: normocephalic, Atraumatic Eyes: normal inspection, EOMI Neck: supple, Trachea midline Respiratory/Chest: Decreased Coarse breath sounds, scattered Rhonchi Cardiovascular: S1, S2, No murmur Abdomen/GI:Soft, Non tender, Bowel sounds present Extremities/Musculoskelatal:normal inspection, no edema Neurologic/Psych:AAOX3, grossly no focal neurological deficits Skin: normal color, warm Results & Data Vital Signs (Past 12 Hours) Vital Signs Temp Pulse Resp BP BP Pulse Ox 12/30/18 15:29 37.1 C 71 20 147/68 H 99 12/30/18 15:25 80 16 98 12/30/18 12:05 81 18 97 12/30/18 11:53 36.4 C L 71 20 144/77 H 99 12/30/18 10:51 70 20 166/56 H 100 12/30/18 10:36 68 20 151/56 H 100 12/30/18 09:28 36.8 C 71 20 140/59 L 97 12/30/18 07:20 66 20 98 12/30/18 07:14 36.6 C 67 21 136/73 99 Laboratory Results Short CBC 12/30/18 Range/Units 06:36 Hgb 7.6 L (12.0-16.0) g/dL Hct 25.3 L (37-47) % BMP 12/30/18 06:36 Creatinine 1.36 H
[2018-12-30] MEDS: DOXYCYCLINE HYCLATE 100 MG CAP PO SCH (20:32)
[2018-12-30] MEDS: PANTOprazole 40 MG TAB PO SCH (20:32)
[2018-12-30] MEDS: ATORVASTATIN 20 MG TAB PO SCH (20:33)
[2018-12-30 21:04] LABS: Appearance Urine Clear (Clear); Bilirubin Urine Negative (Negative); Blood Urine Negative (Negative); Color Urine Yellow; Glucose Urine UA Negative (Negative); Ketones Urine Negative (Negative); Leukocyte Esterase Urine Negative (Negative); Nitrite Urine Negative (Negative); Protein Urine Negative (Negative); Specific Gravity Urine 1.014 (1.000-1.030); Urobilinogen Urine Negative (Negative)
[2018-12-31] MEDS: ALBUT/IPRATROP 3MG/0.5MG NEB 3 ML VIAL NEB SCH ×3 (03:38→11:30)
[2018-12-31] MEDS: LEVOTHYROXINE SODIUM 88 MCG TABLET PO SCH (06:23)
[2018-12-31] MEDS: PROPAFENONE HCL 150 MG TABLET PO SCH ×2 (06:23→12:57)
[2018-12-31 07:05] LABS: Hematocrit (blood only) 25.2 % (37-47); Hemoglobin 7.7 g/dL (12.0-16.0)
[2018-12-31] MEDS: BUMETANIDE 1 MG TAB PO SCH (07:56)
[2018-12-31] MEDS: METOPROLOL SUCC 50MG EXT REL TAB PO SCH (07:56)
[2018-12-31] MEDS: ALLOPURINOL 300 MG TAB PO SCH (07:56)
[2018-12-31] MEDS: PANTOprazole 40 MG TAB PO SCH (07:56)
[2018-12-31] MEDS: LOSARTAN POTASSIUM 50 MG TAB PO SCH (07:56)
[2018-12-31] MEDS: CHOLECALCIFEROL 1,000 UNITS TAB PO SCH (07:56)
[2018-12-31] MEDS: SERTRALINE HCL 50 MG TABLET PO SCH (07:56)
[2018-12-31] MEDS: MULTIVITAMIN TAB PO SCH (07:56)
[2018-12-31] MEDS: ROFLUMILAST 500 MCG TAB PO SCH (07:56)
[2018-12-31] MEDS: GABAPENTIN 600 MG TAB PO SCH ×2 (07:57→12:57)
[2018-12-31] MEDS: methylPREDNISolone 40 MG in SYRINGE 0 ML IV SCH (07:57)
[2018-12-31] MEDS: LACTOBACILLUS ACIDOPHILUS (FLORANEX) TAB PO SCH ×2 (07:57→12:57)
[2018-12-31] MEDS: DOXYCYCLINE HYCLATE 100 MG CAP PO SCH (07:57)
[2018-12-31] MEDS: SUCRALFATE 1 GM/10 ML UDC PO SCH ×2 (09:06→12:56)
--- NOTE | 2018-12-31 12:03 | Hospitalist Progress Note ---
Date of Service December 31, 2018 Assessment & Plan (1) COPD exacerbation: (2) Chronic respiratory failure with hypoxia and hypercapnia: Patient is a 68 yr female with H/O COPD with chronic respiratory failure and hypercarbia on 4 L O2 via NC, A. fib, chronic diastolic heart failure, CKD stage IIIB-IV,HTN, HLD, hx of tobacco abuse, hypothyroidism, depression with anxiety who presents to [facility] ED secondary to increasing SOB and muscle spasms. Acute on Chronic COPD Exacerbation Chronic oxygen dependency-4 L at baseline CXR no acute abnormality BiPAP PRN Continue doxycycline, Solu-medrol, nebs, home inhalers Supplemental oxygen as needed Appreciate Pulmonology Input Decreased Solu-medrol Cough, SOB improved No plan to discharge on Prednisone taper given ulcer disease. Discussed with Needs Fu with Pulmonology upon discharge (3) Heme positive stool: Melena: Hb 7.7 +FOBT S/P EGD: Nonbleeding gastric ulcer with no stigmata of bleeding Monitor H&H, transfuse PRBCs as needed Continue PPI BID, sucralfate Hold aspirin for now Discontinue meloxicam Appreciate gastroenterology input Follow up biopsy results of the gastric ulcer:pending Hb stable Needs FU with GI upon discharge (4) Chronic anemia: baseline hgb ~ 8-9 management as above Transfuse PRBCs PRN (5) Diastolic CHF, chronic: Euvolemic continue losartan, metoprolol, bumex, zaroxlyn Monitor volume status (6) CKD (chronic kidney disease), stage IV: baseline CR ~ 1.5 Cr at baseline Monitor renal function (7) Paroxysmal a-fib: Continue metoprolol, propafenone off OAC due to hx of GIB per records (8) HTN (hypertension): Stable continue losartan, metoprolol and diuretics (9) Dyslipidemia: continue statin (10) GERD (gastroesophageal reflux disease): continue ranitidine, PPI (11) Morbid obesity: BMI 42.5 encourage lifestyle modifications (12) DVT prophylaxis: SCDS/TEDS Re: GI bleed Disposition: Plan to discharge home today Subjective Patient is seen and examined at bedside Feels much better today Less Cough No bleeding issues Denies any chest pain,SOB, nausea, abdominal pain, dizziness No other complaints Discussed with Pulmonology today Review of Systems Review of Systems: All systems reviewed & are unremarkable except as noted in HPI & below Physical Exam Physical Exam: Physical Exam: Vitals signs as noted above General Appearance:Obese, no apparent distress Head: normocephalic, Atraumatic Eyes: normal inspection, EOMI Neck: supple, Trachea midline Respiratory/Chest: Decreased Coarse breath sounds, CTA Cardiovascular: S1, S2, No murmur Abdomen/GI:Soft, Non tender, Bowel sounds present Extremities/Musculoskelatal:normal inspection, no edema Neurologic/Psych:AAOX3, grossly no focal neurological deficits Skin: normal color, warm Results & Data Vital Signs (Past 12 Hours) Vital Signs Temp Pulse Pulse Resp BP Pulse Ox 12/31/18 11:30 81 18 99 12/31/18 11:15 36.7 C 73 20 136/73 99 12/31/18 08:00 70 12/31/18 07:42 74 18 99 12/31/18 07:19 36.4 C L 71 20 126/68 99 12/31/18 06:24 78 117/66 12/31/18 04:32 78 12/31/18 03:57 36.6 C 65 18 128/72 94 12/31/18 03:39 72 16 95 Laboratory Results Short CBC 12/31/18 Range/Units 06:39 Hgb 7.7 L (12.0-16.0) g/dL Hct 25.2 L (37-47) % Urine 12/30/18 Range/Units 20:55 Urine Color Yellow Urine Appearance Clear (Clear) Urine pH 5.0 (4.5-7.5) Ur Specific [place] 1.014 (1.000-1.030) Urine Protein Negative (Negative) Urine Glucose (UA) Negative (Negative)
--- NOTE | 2018-12-31 12:13 | Discharge Summary ---
Date of Service December 31, 2018 Admission HPI Per Admitting Provider This is a 68-year-old female who has a significant past medical history of COPD with chronic respiratory failure and hypercarbia on 4 L O2 via NC, A. fib, chronic diastolic heart failure, CKD stage IIIB-IV,HTN, HLD, hx of tobacco abuse, hypothyroidism, depression with anxiety who presents to [facility] ED secondary to increasing SOB and muscle spasms x 3 days. "I get muscle spasms when my CO2 is low." Over past 2-3 days noted in [facility], SOB at rest, productive cough purulent sputum, using alb inhaler q4hr w/o relief; therefore, she presented to ED. Feels her sputum cleared up after previous hospitalization but has since gotten worse. Denies f/c/s, chest pain, palpitations, hemoptysis, n/v/d, abdominal pain, dysuria, hematuria, increased freq/urg with urination. She did have episode yesterday of BRBPR on toilet paper. Denies hx of GIB. +Hx of diverticulosis. Pt recently hospitalized secondary to hospital-acquired pneumonia, COPD exacerbation. She was treated with a course of IV Levaquin and IV doxycycline as well as IV Solu-Medrol. She was transitioned to oral antibiotics along with oral prednisone upon discharge. She presented back to the ED on 12/23 due to shortness of breath but was felt medically stable to discharge home. She states she is compliant with her medications and oxygen. She does not wear CPAP/BiPAP at at bedtime. Admission Exam Per Admitting Provider Gen: WD/WN, F, +Bipap, sitting up in bed, NAD, pleasant, conversing easily Head: Normocephalic, Atraumatic Eyes: Sclera normal, no conjunctival injection, PERRLA, EOMI ENT: Gross hearing intact, normal pharynx, mucous membranes moist Neck: supple, no adenopathy, No JVD, no bruit, Resp: Scattered wheeze and rhonchi throughout all lung valdez, +biapa. Normal insp/exp effort, no accessory muscle use CV: distant/muffled heart sounds due to adventitious breath sounds but otherwiser egular rate, regular rhythm, no murmur, rub, gallop, or ectopy Abd: +BS x 4, soft, nontender, nondistended Musculoskeletal: moves extremities active rom x 4, strength intact, good operations dispatcher strength Extremities: No edema bilaterally Skin: warm, moist, no rash, +LLE ecchymosis, negative turgor, cap refill < 2sec Neuro: Alert and oriented x 3, speech normal, good mood/affect, cran nerve 2-12 intact grossly : deferred Principal Diagnosis Discharge Information Discharge Diagnosis Acute COPD Exacerbation Gastrointestinal bleeding Discharge Goals Decrease discomfort,Improve disease control, Improve function Discharge Activity Limitations Resume your previous activity Discharge Data Allergies Allergy/AdvReac Type Severity Reaction Status Date / Time adhesive Allergy Severe RED RASH Verified 12/28/18 13:03 latex AdvReac Mild TAPE-SORE Verified 12/28/18 13:03 morphine AdvReac Mild DELUSIONS Verified 12/28/18 13:03 Consultations 12/28/18 14:41 ED Decision to Admit Stat 12/28/18 17:42 Consult Case Management - Discharge Planning Routine Consult Gastroenterology Routine Consult Pulmonology Routine Procedures Performed Operation Date: 12/30/18 08:30 Actual Procedures p Esophagogastroduodenoscopy - Grey Rodriguez Case, DO cxr: No acute cardiopulmonary findings. No change in appearance of the chest. egd: Findings: The esophagus was normal. One non-bleeding superficial gastric ulcer with no stigmata of bleeding was found in the gastric antrum. The lesion was 8 mm in largest dimension. Biopsies were taken with a cold forceps for histology. The examined duodenum was normal. Impression: - Normal esophagus. - Non-bleeding gastric ulcer with no stigmata of bleeding. Biopsied. - Normal examined duodenum. Recommendation: - Resume previous diet. - Continue present medications. - Await pathology results. - Return to primary care physician as previously scheduled. Hospital Course (1) COPD exacerbation: (2) Chronic respiratory failure with hypoxia and hypercapnia: Patient is a 68 yr female with H/O COPD with chronic respiratory failure and hypercarbia on 4 L O2 via [place], A. fib, chronic diastolic heart failure, CKD stage IIIB-IV,HTN, HLD, hx of tobacco abuse, hypothyroidism, depression with anxiety who presents to [facility] ED secondary to increasing SOB and muscle spasms. Acute on Chronic COPD Exacerbation Chronic oxygen dependency-4 L at baseline CXR no acute abnormality BiPAP PRN Continue doxycycline, Solu-medrol, nebs, home inhalers Supplemental oxygen as needed Appreciate Pulmonology Input Decreased Solu-medrol Cough, SOB improved No plan to discharge on Prednisone taper given ulcer disease. Discussed with Needs Fu with Pulmonology upon discharge (3) Heme positive stool: Melena: Hb 7.7 +FOBT S/P EGD: Nonbleeding gastric ulcer with no stigmata of bleeding Monitor H&H, transfuse PRBCs as needed Continue PPI BID, sucralfate Hold aspirin for now Discontinue meloxicam Appreciate gastroenterology input Follow up biopsy results of the gastric ulcer:pending Hb stable Needs FU with GI upon discharge (4) Chronic anemia: baseline hgb ~ 8-9 management as above Transfuse PRBCs PRN (5) Diastolic CHF, chronic: Euvolemic continue losartan, metoprolol, bumex, zaroxlyn Monitor volume status (6) CKD (chronic kidney disease), stage IV: baseline CR ~ 1.5 Cr at baseline Monitor renal function (7) Paroxysmal a-fib: Continue metoprolol, propafenone off OAC due to hx of GIB per records (8) HTN (hypertension): Stable continue losartan, metoprolol and diuretics (9) Dyslipidemia: continue statin (10) GERD (gastroesophageal reflux disease): continue ranitidine, PPI (11) Morbid obesity: BMI 42.5 encourage lifestyle modifications (12) DVT prophylaxis: SCDS/TEDS Re: GI bleed Disposition: Plan to discharge home today Total Time Total Time Spent Total Time Spent (In Minutes): 37 MINUTES Total Time Includes: Examination of the Patient, Discharge Planning, Medication Reconciliation, Communication With Other Providers and Other Discharge Plan Discharge Items Patient Disposition: Home - Home Health Services Reason For Visit: MUSCLE SPASMS Discharge Diagnosis: Acute COPD Exacerbation Gastrointestinal bleeding Discharge Goals: Decrease discomfort, Improve disease control and Improve function Activity: Resume your previous activity Exercise/Sports: Gradually increase as tolerated Non-emergency contact: Primary Care Provider, Heavy Forger Helper and Cambering Machine Operator Call non-emergency contact if: you have any medication questions, your symptoms worsen, your pain is not controlled, your pain is worsening, your pain is unusual for you, your pain is concerning for you and you have a fever Follow-up/Referrals: Babak Melendez MD [Primary Care Provider] - Diet: Heart Healthy Addtl Provider Instructions: Follow-up with Dr. Espinal for primary care on January 02, 2019 at 8:45 AM Follow-up with your steamfitter Dr. Brandt in 2 to 4 weeks Follow-up with your biomass boiler operator Dr. Dickey in 2 to 4 weeks Complete the antibiotic course as prescribed. Do not take Aspirin for 1 week. Further recommendations as per your primary care physician/steamfitter. Avoid NSAIDs, meloxicam due to peptic ulcer disease. Seek immediate medical attention if your symptoms reoccur or worsen Your Gastric ulcer pathology report is currently pending. Follow-up with your physician for results. Prescriptions: New doxycycline hyclate 100 mg Capsule 100 mg PO BID@0800,2000 Qty: 3 RF: 0 pantoprazole 40 mg Tablet,Delayed Release (Dr/Ec) 40 mg PO BID 30 Days Qty: 60 RF: 0 sucralfate 1 gram tablet 1 gm PO ACHS 28 Days Qty: 28 RF: 0 Continued Breo Ellipta 200-25 mcg/dose Blister With Device 1 inh INHALATION DAILY RF: 0 multivitamin Tablet 1 tab PO DAILY RF: 0 losartan 50 mg Tablet 50 mg PO DAILY RF: 0 metolazone 2.5 mg Tablet 2.5 mg PO MOFR RF: 0 propafenone 150 mg Tablet 150 mg PO Q8H RF: 0 gabapentin 600 mg Tablet 600 mg PO TID RF: 0 atorvastatin 20 mg Tablet 20 mg PO QPM RF: 0 metoprolol succinate 50 mg Tablet Extended Release 24 Hr 50 mg PO DAILY RF: 0 aspirin [Aspir-81] 81 mg Tablet,Delayed Release (Dr/Ec) 81 mg PO DAILY RF: 0 levothyroxine 88 mcg Tablet 88 mcg PO DAILYBB RF: 0 ranitidine HCl 150 mg Tablet 150 mg PO BID RF: 0 sertraline [Zoloft] 25 mg Tablet 25 mg PO DAILY RF: 0 bumetanide 1 mg Tablet 1 mg PO BID RF: 0 allopurinol 300 mg Tablet 300 mg PO DAILY RF: 0 cholecalciferol (vitamin D3) [Vitamin D3] 2,000 unit Tablet 2,000 unit PO QAM RF: 0 Lactinex 1 million cell Tablet,Chewable 1 tab PO TID RF: 0 Daliresp 500 mcg Tablet 500 mcg PO DAILY RF: 0 potassium chloride 20 mEq Tablet Extended Release 20 meq PO Q OTHER DAY RF: 0 acetaminophen [Tylenol] 325 mg Capsule 650 mg PO Q4 PRN (Reason: Fever Or Pain) RF: 0 albuterol sulfate 2.5 mg /3 mL (0.083 %) Solution For Nebulization 2.5 mg INHALATION Q6 PRN (Reason: Shortness Of Breath Or Wheezing) RF: 0 Discontinued omeprazole 20 mg Capsule,Delayed Release(Dr/Ec) 20 mg PO DAILYBB RF: 0 meloxicam [Mobic] 15 mg Tablet 15 mg PO DAILY RF: 0 Stand-Alone Forms: [facility] Discharge Orders: Discharge Order (Routine); Ordered 12/31/18 Ordered By: Bautista Casper Admission Data Admit Date/Time: 12/28/18 14:52 Attending Provider: Bautista Casper Admit Provider: Tomasz Prescott Primary Care Provider: Babak Melendez Other Providers: Tomasz Prescott ; Charlie Dickey ; Grey Brandt Service: Telemetry Other Interventions: Discharge Summary Assessment (RN) Last Done: 12/31/18 12:19 Pending Studies at Discharge: Yes Studies:: Gastric Ulcer Pathology DC Date/Time DO NOT enter until pt leaves facility: 12/31/18 13:50
--- NOTE | 2018-12-31 12:39 | Progress Note ---
DATE: 12/31/2018 PULMONARY MEDICINE PROGRESS NOTE SUBJECTIVE: The patient's cardiopulmonary status is stable and ready for discharge. I spoke with Dr. Bautista Casper and would discharge the patient off steroids if she had not been on a chronic dose of prednisone at home and will treat the nonbleeding gastric ulcer with both proton pump inhibitors and Carafate and we will be happy to see the patient in followup in the clinic at her regular scheduled appointment. QUANG
== END 2018-12-31 13:50 | disposition home health service (06) | DRG 190 ==
LOC: ED 10:38 → 2W 14:52

== ENCOUNTER 2019-01-10 03:40 | Inpatient (IN) ==
[2019-01-10] MEDS ORDERED: ALBUT/IPRATROP 3MG/0.5MG NEB 3 ML VIAL NEB STA (03:51)
[2019-01-10 04:27] LABS: Basophils # (auto) 0.04 K/uL (0-0.2); Basophils % (auto) 0.2 %; Eosinophils # (auto) 0.17 K/uL (0-0.5); Hematocrit (blood only) 26.6 % (37-47); Immature Granulocytes # (auto) 0.19 K/uL (0.00-0.02); Immature Granulocytes % (auto) 1.2 %; Lymphocytes # (auto) 2.02 K/uL (1.2-3.4); Lymphocytes % (auto) 12.4 %; Mean Corpuscular Hgb Conc 30.1 g/dL (32-36); Mean Corpuscular Volume 100.4 fL (80-100); Mean Platelet Volume 8.9 fL (7.4-10.4); Monocytes # (auto) 1.15 K/uL (0.11-0.59); Monocytes % (auto) 7.1 %; Neutrophils # (auto) 12.72 K/uL (1.4-6.5); Neutrophils % (auto) 78.1 %; Platelet Count 181 K/uL (130-400); RDW Coefficient of Variation 14.9 % (11.5-14.5); RDW Standard Deviation 54.3 fL (36.4-46.3); Red Blood Count 2.65 M/uL (4.2-5.4); White Blood Count 16.29 K/uL (4.8-10.8)
[2019-01-10 04:32] LABS: Base Excess VBG 13.7 mEq/L; Oxygen Saturation VBG 60.2 %; pH VBG 7.33 (7.36-7.41)
[2019-01-10] MEDS ORDERED: LEVOFLOXACIN/D5W 750 MG/150 ML BAG IV STA (04:41)
[2019-01-10] MEDS ORDERED: ACETAMINOPHEN 325 MG TAB PO STA (04:41)
[2019-01-10 04:56] LABS: BUN Creatinine Ratio 22.4 (10-20); Blood Urea Nitrogen 32 mg/dl (7-18); Calcium 9.7 mg/dl (8.5-10.1); Carbon Dioxide 43 mmol/L (21-32); Chloride 95 mmol/L (98-107); Creatinine Clr Calc Pharmacy 43.7 ml/min; Est GFR (African American) 42.2; Est GFR (Non-African American) 36.4; Glucose 115 mg/dl (70-99); Magnesium 1.6 mg/dl (1.8-2.4); NT Pro B Type Natriuretic Pept 454 pg/ml (0-900); Potassium 3.8 mmol/L (3.5-5.1); Sodium 140 mmol/L (136-145); Troponin I < 0.015 ng/ml (0-0.045)
[2019-01-10] MEDS ORDERED: MAGNESIUM SULFATE / D5W 1 GM/100 ML BAG IV ONE (05:01)
--- NOTE | 2019-01-10 05:26 | Emergency Department Note ---
Entered by Sarina London acting as a scribe for Markus Lowe MD ED Provider Note Name: Eneida Lee Age: 68 F Arrives Via: EMS Informant: Patient CC: Shortness of breath HPI: The patient is a 68 year old female presenting to the Emergency Department via EMS complaining of worsening shortness of breath starting 4 days ago. The patient reports that she is short of breath. She states that she has a severe cough that is producing a greenish yellow colored mucous. She explains that she has experienced these symptoms before and believes that she has pneumonia. She notes that she had a breathing treatment [employer] that did not improve her shortness of breath. She adds that she is not currently on antibiotics. The patient denies abdominal pain, lower extremity edema and smoking tobacco. ROS: See above HPI for pertinent positives & negatives. A total of 10 systems reviewed and were otherwise negative. Past Medical History: Chronic respiratory failure with hypoxia, chronic anemia, CHF, COPD, GERD, Depression, CO HTN, EVONNE, CKD, Asthma, Dyslipidemia, Lumbar spinal stenosis, Morbid obesity. Past Surgical History: Cervical spinal fusion, appendectomy, cholecystectomy, wrist surgery, right shoulder replacement, right hip replacement. Family History: Diabetes, Bipolar 1 disorder. Social History: . Lives with daughter. Feels safe at home. Home Medications: Tylenol 650 mg PO, Albuterol sulfate 2.5 mg PO, Allopurinol 300 mg PO, Aspirin 81 mg PO, Atorvastatin 20 mg PO, Breo Ellipta 1 INH, Bumetanide 1 mg PO, Vitamin D3 2000 unit PO, Daliresp 500 mcg PO, Doxycycline hyclate 100 mg PO, Gabapentin 600 mg PO, Lactinex 1 tab PO, Levothyroxine 88 mcg PO, Losartan 50 mg PO, Metolazone 2.5 mg PO, Metoprolol succinate 50 mg PO, Pantoprazole 40 mg PO, Potassium Chloride 20 meq PO, Propafenone 150 mg PO, Ranitidine HCl 150 mg PO, Zoloft 25 mg PO, Sucralfate 1 gm PO. Allergies Adhesive, Latex, Morphine. Physical: Vitals: BP: 129/100, Pulse: 89, Respirations: 19, Temperature: 99.9, O2 Saturation: 98, Delivery: Nasal Cannula. Exam: GENERAL: Patient is chronically unwell appearing and in mild distress. EYES: No scleral icterus, unremarkable pupils. ENT: Mucous membranes moist, no nasal congestion. NECK: No masses appreciated, no meningismus, trachea is midline. RESPIRATORY: Clear to auscultation and equal bilaterally. Diffuse crackles and wet lung sounds throughout all lung valdez. Junky, wet rattling cough. CARDIOVASCULAR: Regular rate and rhythm. No murmurs, rubs, gallops appreciated. GASTROINTESTINAL: Abdomen soft, non-tender, no peritonitis. Bowel sounds positive. No masses appreciated. BACK: No midline tenderness, no CVA tenderness EXTREMITIES: Normal motion all extremities, no cyanosis, no edema. NEUROLOGIC: Alert and oriented, no acute motor or sensory deficits, no focal weakness, cranial nerves grossly intact. SKIN: No rash, no jaundice, no diaphoresis. ED Course: 0346: Prior Medical Record, Triage/Nursing Notes, Medications, Allergies reviewed by Me. The patient was evaluated in room B10, and a complete history and physical examination were performed. 0437: I reevaluated the patient at this time. Mild improvement after nebulizer treatment. Patient still has junky cough. She reports that she is still feeling short of breath. 0442: I discussed the patients case with Dr. Rodriguez Alex hospitalist. He will evaluate the patient for further management. Vital Signs: reviewed and remarkable for modest elevated Temp Labs: Reviewed and remarkable for elevated WBC, hypercapnea Interventions: Saline Lock, Levaquin 750mg IV, Duoneb Imaging: X ray results are stated below per my interpretation: Chest: 1 view: Chronic interstitial congestion bilateral lower lobes similar to previous, no effusion, normal cardiac border. EKG: Per My Interpretation: Indication Shortness of Breath: NSR 84 bpm qtc 436 no ectopy nor ischemia and similar to previous. Consults: Dr Rodriguez Alex Hospitalist will bring in for further evaluation. Reassessments/Times: See Above Blood pressure: Normal. No Referral necessary Disposition: Hospitalization Differentials: Differential: Infectious, Reactive Airway Disease, Pneumonia, Pneumothorax, COPD, CHF, ACS, Pulmonary Embolism, MSK, GI, Dissection, amongst other etiologies entertained. Medical Decision Making: Chronically unwell 68 yr old female arrives with worsening cough, fatigue and shortness of breath over last few days. Quite poor lung exam though sating OK currently. No clear new infiltrate on cxr though lungs poor to begin with. WBC is doubled to 16, she has temp 37.7 and hacking cough, thus I do suspect there is underlying pneumonia. Hypercapnea chronic and minimally changed with significant change in pH. She was given Duoneb, though will avoid steroids currently due to known gastric ulcer and recent admission for GI bleed. Just finished Doxy, thus will switch back to Levaquin that she had a bit over a month ago. Reviewed with hospitalist who will bring in for further management and evaluation. Impression: Pneumonia, Chronic hypercapnic respiratory failure. The scribe's documentation has been prepared under my direction and personally reviewed by me in its entirety. I confirm that the note above accurately reflects all work, treatment, procedures, and medical decision making performed by me. Markus Lowe MD Impression & Plan Pneumonia, Chronic hypercapnic respiratory failure Past Med/Surg History Medical History Chronic respiratory failure with hypoxia, on home O2 therapy (Chronic) Anemia (Chronic) Chronic anemia (Chronic) Diarrhea DVT prophylaxis Diastolic CHF, chronic (Chronic) Acute bronchitis COPD exacerbation GERD (gastroesophageal reflux disease) (Chronic) Depression (Chronic) Myocardial infarction (Chronic) "per patient, details unknown" COPD (chronic obstructive pulmonary disease) (Chronic) Paroxysmal a-fib (Chronic) HTN (hypertension) (Chronic) Dyslipidemia (Chronic) EVONNE (iron deficiency anemia) (Chronic) CKD (chronic kidney disease), stage IV (Chronic) Asthma (Chronic) Lumbar spinal stenosis (Chronic) Morbid obesity (Chronic) Obesity hypoventilation syndrome (Chronic) Chronic respiratory failure (Chronic) Surgical History S/P cervical spinal fusion (Chronic) History of appendectomy (Chronic) Hx of cholecystectomy (Chronic) S/P wrist surgery (Chronic) 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) Family History Father Trauma Mother Diabetes Cerebral aneurysm Daughter Bipolar 1 disorder Social History Preferred Language: Estonian Communication Ability: Effective [employer]ician Required: No Beliefs That Will Affect Care: None marital status: Current Living Situation: Family Current Living Situation Comment: lives with daughter Other Information That Helps Us Care for You: No Feels Safe at Home: Yes Safety Concerns: Feels Safe At This Time Smoking Status: Former smoker Tobacco Type: cigarettes Cigarettes Per Day: 2 packs Hx Alcohol Use: No Hx Substance Use: No Results & Data Vital Signs Vital Signs - 24 hr 01/10/19 03:43 01/10/19 03:51 01/10/19 03:52 Temperature 37.7 C H Temperature Source Oral Sepsis Recent Fever Within 48 Hours No Sepsis New/Unexplained Change in Mental Status No Sepsis Action Taken by Nursing No Action Required Pulse Rate 89 Pulse Rate [Right Radial] Respiratory Rate 19 Respiratory Effort / Characteristics Spontaneous Blood Pressure 129/100 Blood Pressure Mean 109 Pulse Oximetry 95 98 Oxygen Delivery Method Nasal Cannula Nasal Cannula Oxygen Flow Rate 4 4 01/10/19 04:03 Temperature Temperature Source Sepsis Recent Fever Within 48 Hours Sepsis New/Unexplained Change in Mental Status Sepsis Action Taken by Nursing Pulse Rate Pulse Rate [Right Radial] 81 Respiratory Rate 16 Respiratory Effort / Characteristics Non-Labored Spontaneous Blood Pressure Blood Pressure Mean Pulse Oximetry 99 Oxygen Delivery Method Nasal Cannula Oxygen Flow Rate 4 Home Medications Current Medication List: was personally reviewed by me Laboratory Data Attestation: I reviewed the patient's lab results. Result diagrams: 01/10/19 04:07 01/10/19 04:07 Lab Results 01/10/19 01/10/19 01/10/19 Range/Units 04:07 04:07 04:16 WBC 16.29 H (4.8-10.8) K/uL RBC 2.65 L (4.2-5.4) M/uL Hgb 8.0 L (12.0-16.0) g/dL Hct 26.6 L (37-47) % MCV 100.4 H (80-100) fL MCH 30.2 (25-34) pg MCHC 30.1 L (32-36) g/dL RDW Std Deviation 54.3 H (36.4-46.3) fL RDW Coeff of Arabella 14.9 H (11.5-14.5) % Plt Count 181 (130-400) K/uL MPV 8.9 (7.4-10.4) fL Immature Gran % (Auto) 1.2 % Neut % (Auto) 78.1 % Lymph % (Auto) 12.4 % [place] % (Auto) 7.1 % Eos % (Auto) 1.0 % Baso % (Auto) 0.2 % Immature Gran # (Auto) 0.19 H (0.00-0.02) K/uL Neut # (Auto) 12.72 H (1.4-6.5) K/uL Lymph # (Auto) 2.02 (1.2-3.4) K/uL [place] # (Auto) 1.15 H (0.11-0.59) K/uL Eos # (Auto) 0.17 (0-0.5) K/uL Baso # (Auto) 0.04 (0-0.2) K/uL VBG pH (7.36-7.41) VBG pCO2 (38-50) mmHg VBG pO2 mmHg VBG HCO3 mmol/L VBG O2 Saturation % VBG Base Excess mEq/L Barometric Pressure mm/Hg Sodium 140 (136-145) mmol/L Potassium 3.8 (3.5-5.1) mmol/L Chloride 95 L (98-107) mmol/L Carbon Dioxide 43 H* (21-32) mmol/L Anion Gap 2.0 L (3-11) BUN 32 H (7-18) mg/dl Creatinine 1.45 H (0.6-1.2) mg/dl Est Cr Clr Drug Dosing 43.7 ml/min Est GFR ( Amer) 42.2 Est GFR (Non-Af Amer) 36.4 BUN/Creatinine Ratio 22.4 H (10-20) Glucose 115 H (70-99) mg/dl Lactate 0.9 (0.4-2.0) mmol/L Calcium 9.7 (8.5-10.1) mg/dl Magnesium 1.6 L (1.8-2.4) mg/dl Troponin I < 0.015 (0-0.045) ng/ml NT-Pro-B Natriuret Pep 454 (0-900) pg/ml TSH 0.182 L (0.300-4.500) uIu/ml 01/10/19 Range/Units 04:16 WBC (4.8-10.8) K/uL RBC (4.2-5.4) M/uL Hgb (12.0-16.0) g/dL Hct (37-47) % MCV (80-100) fL MCH (25-34) pg MCHC (32-36) g/dL RDW Std Deviation (36.4-46.3) fL RDW Coeff of Arabella (11.5-14.5) % Plt Count (130-400) K/uL MPV (7.4-10.4) fL Immature Gran % (Auto) % Neut % (Auto) % Lymph % (Auto) % [place] % (Auto) % Eos % (Auto) % Baso % (Auto) % Immature Gran # (Auto) (0.00-0.02) K/uL Neut # (Auto) (1.4-6.5) K/uL Lymph # (Auto) (1.2-3.4) K/uL [place] # (Auto) (0.11-0.59) K/uL Eos # (Auto) (0-0.5) K/uL Baso # (Auto) (0-0.2) K/uL VBG pH 7.33 L (7.36-7.41) VBG pCO2 81 H (38-50) mmHg VBG pO2 29 mmHg VBG HCO3 42 mmol/L VBG O2 Saturation 60.2 % VBG Base Excess 13.7 mEq/L Barometric Pressure 730.0 mm/Hg Sodium (136-145) mmol/L Potassium (3.5-5.1) mmol/L Chloride (98-107) mmol/L Carbon Dioxide (21-32) mmol/L Anion Gap (3-11) BUN (7-18) mg/dl Creatinine (0.6-1.2) mg/dl Est Cr Clr Drug Dosing ml/min Est GFR ( Amer) Est GFR (Non-Af Amer) BUN/Creatinine Ratio (10-20) Glucose (70-99) mg/dl Lactate (0.4-2.0) mmol/L Calcium (8.5-10.1) mg/dl Magnesium (1.8-2.4) mg/dl Troponin I (0-0.045) ng/ml NT-Pro-B Natriuret Pep (0-900) pg/ml TSH (0.300-4.500) uIu/ml Administered Medications Levofloxacin/Dextrose (Levaquin/D5w) 750 mg in 150 mls @ 100 mls/hr IV NOW STA Stop: 01/10/19 06:10 Last Admin: 01/10/19 04:54 Dose: 100 mls/hr Documented by: [id number] Discontinued Medications Acetaminophen (Tylenol) 650 mg PO NOW STA Stop: 01/10/19 04:42 Last Admin: 01/10/19 04:54 Dose: 650 mg Documented by: [id number] Albuterol (Duoneb) 3 ml NEB NOW STA Stop: 01/10/19 03:52 Last Admin: 01/10/19 04:01 Dose: 3 ml Documented by: [id number] Blood Pressure Blood Pressure Findings: Normal blood pressure Blood Pressure Disposition: further management by hospitalist Discharge Plan Visit Data Chief Complaint: Shortness of Breath/Dyspnea Stated Complaint: SHORT OF BREATH ED Provider: Markus Lowe Discharge Problem: Pneumonia, Chronic hypercapnic respiratory failure Patient Disposition: Being Evaluated by Hospitalist Forms Stand Alone Forms: My [facility] Prescriptions Prescriptions: No Action Breo Ellipta 200-25 mcg/dose Blister With Device 1 inh INHALATION DAILY RF: 0 multivitamin Tablet 1 tab PO DAILY RF: 0 losartan 50 mg Tablet 50 mg PO DAILY RF: 0 metolazone 2.5 mg Tablet 2.5 mg PO MOFR RF: 0 propafenone 150 mg Tablet 150 mg PO Q8H RF: 0 gabapentin 600 mg Tablet 600 mg PO TID RF: 0 atorvastatin 20 mg Tablet 20 mg PO QPM RF: 0 metoprolol succinate 50 mg Tablet Extended Release 24 Hr 50 mg PO DAILY RF: 0 aspirin [Aspir-81] 81 mg Tablet,Delayed Release (Dr/Ec) 81 mg PO DAILY RF: 0 levothyroxine 88 mcg Tablet 88 mcg PO DAILYBB RF: 0 ranitidine HCl 150 mg Tablet 150 mg PO BID RF: 0 sertraline [Zoloft] 25 mg Tablet 25 mg PO DAILY RF: 0 bumetanide 1 mg Tablet 1 mg PO BID RF: 0 allopurinol 300 mg Tablet 300 mg PO DAILY RF: 0 cholecalciferol (vitamin D3) [Vitamin D3] 2,000 unit Tablet 2,000 unit PO QAM RF: 0 Lactinex 1 million cell Tablet,Chewable 1 tab PO TID RF: 0 Daliresp 500 mcg Tablet 500 mcg PO DAILY RF: 0 potassium chloride 20 mEq Tablet Extended Release 20 meq PO Q OTHER DAY RF: 0 acetaminophen [Tylenol] 325 mg Capsule 650 mg PO Q4 PRN (Reason: Fever Or Pain) RF: 0 albuterol sulfate 2.5 mg /3 mL (0.083 %) Solution For Nebulization 2.5 mg INHALATION Q6 PRN (Reason: Shortness Of Breath Or Wheezing) RF: 0 doxycycline hyclate 100 mg Capsule 100 mg PO BID@0800,2000 Qty: 3 RF: 0 pantoprazole 40 mg Tablet,Delayed Release (Dr/Ec) 40 mg PO BID 30 Days Qty: 60 RF: 0 sucralfate 1 gram tablet 1 gm PO ACHS 28 Days Qty: 28 RF: 0 Referrals Referrals: Babak Melendez MD [Primary Care Provider] - Discharge Problem: Pneumonia Qualifiers: Pneumonia type: due to unspecified organism Laterality: bilateral Lung location: unspecified part of lung Qualified Code(s): J18.9 - Pneumonia, unspecified organism The scribe's documentation has been prepared under my direction and personally reviewed by me in its entirety. I confirm that the note above accurately reflects all work, treatment, procedures, and medical decision making performed by me.
[2019-01-10] MEDS ORDERED: ACETAMINOPHEN 325 MG TAB PO PRN (06:14)
[2019-01-10] MEDS ORDERED: CONSULT PHARMACY STA (06:14)
[2019-01-10] MEDS ORDERED: ONDANSETRON INJ 2 MG/ML 2 ML VIAL IV PRN (06:14)
[2019-01-10] MEDS ORDERED: NITROGLYCERIN SL 0.4 MG/TAB TAB SL PRN (06:14)
[2019-01-10] MEDS ORDERED: LEVOFLOXACIN CONSULT ACTIVE PRN (06:19)
--- NOTE | 2019-01-10 06:31 | XRay Report ---
XR chest 1V portable CLINICAL HISTORY: Shortness of breath COMPARISON STUDY: 12/28/2018 FINDINGS: The heart remains enlarged. There is mild elevation of the interstitium. This appears chron ic. There is no lobar consolidation. There are no pleural effusions. There is stable left basilar ate lectasis/scarring. Postprocedural changes of prior vertebroplasty are evident. There are postsurgical changes of a total right shoulder arthroplasty.[ IMPRESSION: Cardiomegaly and stable interstitial thickening Electronically signed by: Fox Garcia M.D. 01/10/2019 6:30 AM
[2019-01-10] MEDS: IPRATROPIUM BROMIDE NEB SOLN 0.02% 2.5 ML VIAL INH SCH ×3 (07:14→18:56)
[2019-01-10] MEDS: LEVALBUTEROL 1.25MG/0.5ML NEB INH SCH ×3 (07:14→18:56)
[2019-01-10] MEDS: BREO ELLIPTA ~ ORDER AWAITING ACTION SCH ×3 (07:20→23:05)
[2019-01-10] MEDS: BUMETANIDE 1 MG TAB PO SCH ×2 (07:37→16:40)
[2019-01-10] MEDS: ALLOPURINOL 300 MG TAB PO SCH (07:37)
[2019-01-10] MEDS: ASPIRIN 81 MG ECTAB PO SCH (07:37)
[2019-01-10] MEDS: CHOLECALCIFEROL 1,000 UNITS TAB PO SCH (07:37)
[2019-01-10] MEDS: LOSARTAN POTASSIUM 50 MG TAB PO SCH (07:37)
[2019-01-10] MEDS: PANTOprazole 40 MG TAB PO SCH ×2 (07:37→20:52)
[2019-01-10] MEDS: METOPROLOL SUCC 50MG EXT REL TAB PO SCH (07:37)
[2019-01-10] MEDS: ROFLUMILAST 500 MCG TAB PO SCH (07:37)
[2019-01-10] MEDS: LEVOTHYROXINE SODIUM 88 MCG TABLET PO SCH (07:37)
[2019-01-10] MEDS: MULTIVITAMIN TAB PO SCH (07:37)
[2019-01-10] MEDS: SUCRALFATE 1 GM TAB PO SCH ×4 (07:37→20:53)
[2019-01-10] MEDS: LACTOBACILLUS ACIDOPHILUS (FLORANEX) TAB PO SCH ×3 (07:37→20:52)
[2019-01-10] MEDS: GABAPENTIN 600 MG TAB PO SCH ×3 (07:38→20:52)
[2019-01-10] MEDS: PROPAFENONE HCL 150 MG TABLET PO SCH ×3 (07:38→20:54)
[2019-01-10] MEDS: methylPREDNISolone 40 MG in SYRINGE 0 ML IV SCH ×3 (07:38→20:54)
[2019-01-10] MEDS: SERTRALINE HCL 50 MG TABLET PO SCH (07:38)
[2019-01-10] MEDS ORDERED: XOPENEX/ATROVENT 1.25mg/0.5MG NEB COMBO NEB SCH (08:00)
--- NOTE | 2019-01-10 11:14 | History and Physical Report ---
DATE OF ADMISSION: 01/10/2019 CHIEF COMPLAINT: Shortness of breath, cough, and leg weakness. HISTORY OF PRESENT ILLNESS: This is a 68-year-old female with past medical history significant for severe COPD, chronic respiratory failure on 4 liters oxygen all the time, hyperlipidemia, hypothyroidism, atrial fibrillation, not on anticoagulation secondary to history of GI bleeding and hematoma, right-sided heart failure, hypertension, chronic kidney disease stage III-IV, iron deficiency anemia, spinal stenosis, depression with anxiety, multiple admissions for COPD exacerbation, recently was in the hospital for COPD exacerbation and also heme-positive stool, status post EGD showing nonbleeding gastric ulcer, discharged on December 31, presents with increasing cough with phlegm, weakness, pain in the hands and legs, shortness of breath, she is always on 4 liters of oxygen, ambulates without any help, but holds on to stuff in the house, lives with her daughter. Has temp spike in the ER and also has leukocytosis, has some headaches. No blurred vision, no sore throat, appetite is not great. No difficulty swallowing. No chest pain, no nausea, no vomiting, no abdominal pain. Normal bowel and bladder movements. No blood in the stools or black stools, no burning micturition. No swelling in the legs. No rash. ALLERGIES: ADHESIVE TAPE, LATEX, MORPHINE. PAST MEDICAL HISTORY: As mentioned above. PAST SURGICAL HISTORY: Colonoscopy, neck fusion surgery, appendectomy, cholecystectomy, right wrist fracture internal fixation, right shoulder replacement, right hip replacement. FAMILY HISTORY: Significant for mother who at age 58 from diabetes and CAD. Father at age of 58. Sister of [place]. SOCIAL HISTORY: . Lives with her daughter. Quit smoking in 2009. Prior to that, she smoked half pack a day for 33 years. No alcohol use, no drug use. REVIEW OF SYMPTOMS: As per HPI. Rest of review of systems is negative. MEDICATIONS: The patient was recently discharged on Protonix 40 mg p.o. b.i.d., sucralfate 1 gram p.o. a.c. and at bedtime, Breo Ellipta inhalation daily, multivitamin daily, losartan 50 mg p.o. daily, metolazone 2.5 mg Wednesday and Wednesday, propafenone 150 mg p.o. q. 8 hours, gabapentin 600 mg p.o. t.i.d., atorvastatin 20 mg q.p.m., metoprolol succinate 50 mg p.o. daily, aspirin 81 mg p.o. daily, levothyroxine 88 mcg daily, Zantac 150 mg p.o. b.i.d., Zoloft 25 mg p.o. daily, bumetanide 1 mg p.o. b.i.d., allopurinol 300 mg p.o. daily, vitamin D 2000 units p.o. daily, Lactinex 1 tablet p.o. t.i.d., Daliresp 500 mcg daily, potassium chloride 20 mEq p.o. daily, Tylenol 650 mg p.o. q. 4 hours p.r.n., albuterol nebulization q. 6 hours p.r.n. PHYSICAL EXAMINATION: GENERAL: The patient is alert and awake, not in acute distress. VITAL SIGNS: Temperature 37.7, pulse 81, respiratory rate 16, blood pressure 129/100, oxygen 99% on 4 liters. HEENT: No pallor, no icterus. Pupils equal, round, and reactive to light. NECK: No JVD. No neck masses, no carotid bruits. CARDIOVASCULAR: S1, S2 heard, regular rate and rhythm. No murmur, no gallop. RESPIRATORY SYSTEM: Normal AP diameter. No accessory muscle use. Bilateral rhonchi heard. ABDOMEN: Soft, bowel sounds present. Mild diffuse discomfort. No guarding. No rigidity. No distention. CENTRAL NERVOUS SYSTEM: Cranial nerves II-XII grossly intact. Nonfocal. EXTREMITIES: No edema, no erythema. LABORATORY DATA: WBC 16.2, hemoglobin 8, hematocrit 26.6, platelets 181. Sodium 140, potassium 3.8, chloride 95, CO2 of 43, BUN 32, creatinine 1.45, serum glucose 115. Lactate 0.9, calcium 9.7, magnesium 1.3, troponin I less than 0.015. BNP 450. TSH 0.18. Chest x-ray: No acute findings seen. EKG: Normal sinus rhythm, rate of 81. No acute ST changes seen. No significant change from previous EKG. ASSESSMENT AND PLAN: This is a 68-year-old female, who presents with chronic obstructive pulmonary disease exacerbation 1. Recurrent chronic obstructive pulmonary disease exacerbation, possible pneumonia with fever spike, leukocytosis, coughing a lot of light yellowish phlegm. We will admit to med/surg tele, IV Solu-Medrol 40 t.i.d. IV Levaquin given in the ER which will continue. Follow the sputum cultures and blood cultures. Nebs around the clock, home inhalers. Consult pulmonary for further recommendation. Monitor in the med/surg tele. 2. Hypomagnesemia. We will replace. 3. Gastric ulcer. Recent EGD showed nonbleeding gastric ulcer. Continue sucralfate and Protonix. Monitor for any bleeding,while patient on steroids. 4. Chronic anemia, hemoglobin 8. We will follow the labs. Somewhat around baseline. 5. History of chronic kidney disease stage III-IV, creatinine of 1.3 at baseline. We will follow the labs. 6. History of paroxysmal atrial fibrillation, Toprol-XL and propafenone rate is under control, not on anticoagulant therapy due to GI bleed and hematoma. 7. History of hypertension, losartan, metoprolol and diuretics. We will monitor the blood pressure. 8. History of chronic diastolic congestive heart failure, right-sided heart failure, on metolazone and Bumex. We will monitor for any volume overload. 9. History of depression. Zoloft. 10. History of hyperlipidemia, on statin. 11. History of back pain. 12. Deep venous thrombosis prophylaxis. Place on SCDs. Code status: Level 1 full code as per my discussion with the patient. 13. Disposition: Admit to med/surg tele. PT and OT prior to discharge. Social Service to help with discharge planning. QUANG
--- NOTE | 2019-01-10 11:30 | Pulmonary Consultation ---
Date of Consultation January 10, 2019 Assessment & Plan (1) Pneumonia: increasing sob clinically she appears to have pneumonia with productive sputum, increased WBC and lung sounds. suspect viral with her arm and leg pain as well as her upper respiratory symptoms but would continue abx for now. COPD no current wheezing but would continue steoids for now. can taper to daily for 5-7 days VBG with chronic respiratory acidosis OOB as much as possible continue levalbuterol, ipratropium, bumetanide. restart breo on discharge t/c holding losartan with increased cr Laterality: bilateral Lung location: unspecified part of lung Pneumonia type: due to unspecified organism Qualified Code(s): J18.9 - Pneumonia, unspecified organism (2) Chronic hypercapnic respiratory failure: (3) COPD exacerbation: History of Present Illness Attending Physician: Ruth Thomas MD History of Present Illness 68 y/o female with a history of COPD on home o2, diastolic dysfunction, CA, HTN, hyperlipidemia, CKD who presented yesterday with worsening shortness of breath, productive cough for the past 4 days. She says that it feels like prior episodes where she has had pneumonia. She has had a cough productive of green sputum. she also complains of pain in the arms and legs bilaterally. +congestion and runny nose. no sick contacts. she was started on abx steroid and nebs. now she says she feels about the same. Allergies Allergy/AdvReac Type Severity Reaction Status Date / Time adhesive Allergy Severe RED RASH Verified 01/10/19 04:19 latex AdvReac Mild TAPE-SORE Verified 01/10/19 04:19 morphine AdvReac Mild DELUSIONS Verified 01/10/19 04:19 Home Medications Home Medications Medication Instructions Recorded Confirmed Type Tyrao Ellipta 1 inh INHALATION DAILY 03/12/18 01/10/19 History Daliresp 500 mcg PO DAILY 03/12/18 01/10/19 History Lactinex 1 tab PO TID 03/12/18 01/10/19 History allopurinol 300 mg PO DAILY 03/12/18 01/10/19 History aspirin [Aspir-81] 81 mg PO DAILY 03/12/18 01/10/19 History atorvastatin 20 mg PO QPM 03/12/18 01/10/19 History bumetanide 1 mg PO BID 03/12/18 01/10/19 History cholecalciferol (vitamin D3) 2,000 unit PO QAM 03/12/18 01/10/19 History [Vitamin D3] gabapentin 600 mg PO TID 03/12/18 01/10/19 History levothyroxine 88 mcg PO DAILYBB 03/12/18 01/10/19 History losartan 50 mg PO DAILY 03/12/18 01/10/19 History metolazone 2.5 mg PO MOFR 03/12/18 01/10/19 History metoprolol succinate 50 mg PO DAILY 03/12/18 01/10/19 History multivitamin 1 tab PO DAILY 03/12/18 01/10/19 History potassium chloride 20 meq PO Q OTHER DAY 03/12/18 01/10/19 History propafenone 150 mg PO Q8H 03/12/18 01/10/19 History ranitidine HCl 150 mg PO BID 03/12/18 01/10/19 History sertraline [Zoloft] 25 mg PO DAILY 03/12/18 01/10/19 History acetaminophen [Tylenol] 650 mg PO Q4 PRN 08/07/18 01/10/19 History albuterol sulfate 2.5 mg INHALATION Q6 PRN 08/07/18 01/10/19 History doxycycline hyclate 100 mg PO BID@0800,2000 #3 cap 12/31/18 01/10/19 Rx pantoprazole 40 mg PO BID 30 Days #60 tab 12/31/18 01/10/19 Rx sucralfate 1 gm PO ACHS 28 Days #28 tab 12/31/18 01/10/19 Rx Patient History Medical History Chronic respiratory failure with hypoxia, on home O2 therapy (Chronic) Anemia (Chronic) Chronic anemia (Chronic) Diarrhea DVT prophylaxis Diastolic CHF, chronic (Chronic) Acute bronchitis COPD exacerbation GERD (gastroesophageal reflux disease) (Chronic) Depression (Chronic) Myocardial infarction (Chronic) "per patient, details unknown" COPD (chronic obstructive pulmonary disease) (Chronic) Paroxysmal a-fib (Chronic) HTN (hypertension) (Chronic) Dyslipidemia (Chronic) EVONNE (iron deficiency anemia) (Chronic) CKD (chronic kidney disease), stage IV (Chronic) Asthma (Chronic) Lumbar spinal stenosis (Chronic) Morbid obesity (Chronic) Obesity hypoventilation syndrome (Chronic) Chronic respiratory failure (Chronic) Surgical History S/P cervical spinal fusion (Chronic) History of appendectomy (Chronic) Hx of cholecystectomy (Chronic) S/P wrist surgery (Chronic) 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) Family History Father Trauma Mother Diabetes Cerebral aneurysm Daughter Bipolar 1 disorder Social History Preferred Language: Syriac Communication Ability: Effective Csr Technician Required: No Beliefs That Will Affect Care: None marital status: Current Living Situation: Family Current Living Situation Comment: lives with daughter Other Information That Helps Us Care for You: No Feels Safe at Home: Yes Safety Concerns: Feels Safe At This Time Smoking Status: Former smoker Tobacco Type: cigarettes Cigarettes Per Day: 2 packs Hx Alcohol Use: No Hx Substance Use: No Review of Systems Review of Systems: Constitutional: no fevers no chills no weight loss Eyes: no blurry or double vision EENT: no sore throat, + congestion Respiratory: + cough + shortness of breath Cardiovascular: no chest pain no palpitations GI: no abdominal pain, no nausea, no vomiting, no diarrhea, no constipation Gu: no dysuria, no frequency MSK: + joint pain, + muscle aches Skin: no rash Neuro: no headache, no dizziness, no focal weakness Endocrine: no heat or cold intolerance heme: no easy bruising, no lymphadenopathy Psych: no depression, no anxiety Physical Exam Physical Exam: Constitutional: Comfortable NAD in chair HEENT: normocephalic atraumatic. MMM. no cervical lymphadenopathy CV: RRR nl s1,s2 no murmurs rubs or gallops Lungs: crackles bilaterally worse at bases. no accessory muscle use Abd: soft nontender nondistended. normal bowel sounds Ext: no edema. no cyanosis, no clubbing Skin: warm dry Neuro: alert and oriented. moving all extremities Psych: flat affect Results & Data Vital Signs (Past 12 Hours) Vital Signs Temp Pulse Pulse Resp BP BP Pulse Ox 01/10/19 08:01 36.8 C 78 20 127/49 L 97 01/10/19 08:00 80 01/10/19 07:14 78 20 97 01/10/19 05:33 81 137/57 L 97 01/10/19 05:29 36.8 C 82 22 117/45 L 96 01/10/19 04:03 81 16 99 01/10/19 03:51 98 01/10/19 03:43 37.7 C H 89 19 129/100 95 Laboratory Results Laboratory Results - last 24 hr 01/10/19 01/10/19 01/10/19 04:07 04:07 04:07 WBC 16.29 H RBC 2.65 L Hgb 8.0 L Hct 26.6 L MCV 100.4 H MCH 30.2 MCHC 30.1 L RDW Std Deviation 54.3 H RDW Coeff of Arabella 14.9 H Plt Count 181 MPV 8.9 Immature Gran % (Auto) 1.2 Neut % (Auto) 78.1 Lymph % (Auto) 12.4 [place] % (Auto) 7.1 Eos % (Auto) 1.0 Baso % (Auto) 0.2 Immature Gran # (Auto) 0.19 H Neut # (Auto) 12.72 H Lymph # (Auto) 2.02 [place] # (Auto) 1.15 H Eos # (Auto) 0.17 Baso # (Auto) 0.04 VBG pH VBG pCO2 VBG pO2 VBG HCO3 VBG O2 Saturation VBG Base Excess Barometric Pressure Sodium 140 Potassium 3.8 Chloride 95 L Carbon Dioxide 43 H* Anion Gap 2.0 L BUN 32 H Creatinine 1.45 H Est Cr Clr Drug Dosing 43.7 Est GFR ( Amer) 42.2 Est GFR (Non-Af Amer) 36.4 BUN/Creatinine Ratio 22.4 H Glucose 115 H Lactate Calcium 9.7 Phosphorus 3.3 Magnesium 1.6 L Troponin I < 0.015 NT-Pro-B Natriuret Pep 454 TSH 0.182 L 01/10/19 01/10/19 04:16 04:16 WBC RBC Hgb Hct MCV MCH MCHC RDW Std Deviation RDW Coeff of Arabella Plt Count MPV Immature Gran % (Auto) Neut % (Auto) Lymph % (Auto) [place] % (Auto) Eos % (Auto) Baso % (Auto) Immature Gran # (Auto) Neut # (Auto) Lymph # (Auto) [place] # (Auto) Eos # (Auto) Baso # (Auto) VBG pH 7.33 L VBG pCO2 81 H VBG pO2 29 VBG HCO3 42 VBG O2 Saturation 60.2 VBG Base Excess 13.7 Barometric Pressure 730.0 Sodium Potassium Chloride Carbon Dioxide Anion Gap BUN Creatinine Est Cr Clr Drug Dosing Est GFR ( Amer) Est GFR (Non-Af Amer) BUN/Creatinine Ratio Glucose Lactate 0.9 Calcium Phosphorus Magnesium Troponin I NT-Pro-B Natriuret Pep TSH Diagnostic Findings XR chest 1V portable CLINICAL HISTORY: Shortness of breath COMPARISON STUDY: 12/28/2018 FINDINGS: The heart remains enlarged. There is mild elevation of the interstitium. This appears chronic. There is no lobar consolidation. There are no pleural effusions. There is stable left basilar atelectasis/scarring. Postprocedural changes of prior vertebroplasty are evident. There are postsurgical changes of a total right shoulder arthroplasty.[ IMPRESSION: Cardiomegaly and stable interstitial thickening Electronically signed by: Fox Garcia M.D. 01/10/2019 6:30 AM
--- NOTE | 2019-01-10 15:32 | Hospitalist Progress Note ---
Date of Service January 10, 2019 Assessment & Plan (1) COPD exacerbation: Admitted with fever and cough with yellowish phlegm and shortness of breath Noted to have high white count at presentation Likely has acute bronchitis complicating COPD Started with intravenous Solu-Medrol, nebulized bronchodilators and antibiotic Appreciate pulmonary input and recommendation;continue levalbuterol, ipratropium, bumetanide. restart breo on discharge Clinically improving Present on Admission?: Yes (2) Chronic respiratory failure with hypoxia, on home O2 therapy: History of chronic respiratory failure secondary to COPD/asthma on 4 L of nasal cannula continuously We will continue oxygen (3) Diastolic CHF, chronic: No acute fluid overload No significant edema and chest x-ray did not show any CHF (4) Paroxysmal a-fib: Heart rate remains controlled Not for any anticoagulation due to history of GI bleed and hematoma (5) Depression: Has anxiety and depression continue current medications (6) CKD (chronic kidney disease), stage IV: Creatinine remains stable DVT prophylaxis-SCDs CODE STATUS-full Other sick significant medical conditions mentioned as in H&P remains stable Subjective 01/10 The patient was seen and examined in medical telemetry unit She is a 68-year-old female with significant past medical history of severe COPD , chronic respiratory failure on 4 L of nasal cannula oxygen all the time, hyperlipidemia, hypothyroidism, atrial fibrillation not on any anticoagulation, chronic kidney disease stage III and right-sided heart failure with hypertension was admitted with increasing shortness of breath and cough. Has been on intravenous Solu-Medrol, nebulized bronchodilator and antibiotic since admission Feels a little bit better this morning Still has mild shortness of breath and cough but otherwise stable Review of Systems Review of Systems: All systems reviewed and are unremarkable except as noted. Constitutional: + body aches, + fatigue and + weakness Respiratory: + cough, + dyspnea (Minimal at rest) and + sputum production Cardiovascular: no chest pain Gastrointestinal: + bloating; no abdominal pain Musculoskeletal: Body aches but no acute arthritis Neurologic: Alert, awake and oriented x3. Generally weak Physical Exam Physical Exam: Lying in bed with minimal shortness of breath at rest Constitutional: well developed, + acute distress (Minimal acute distress at rest) and + ill appearing ENMT: external ear and nose normal, oropharynx normal Neck: trachea midline, no thyromegaly Respiratory: + respiratory distress and + uses accessory muscles Auscultation: + diminished lung sounds, + crackles (At the bases), + rhonchi (Anteriorly) and + wheezes Cardiovascular: Rate/Rhythm: regular rate and regular rhythm Heart Sounds: no murmur Gastrointestinal (Abdomen): Inspection/Auscultation: abdomen normal to inspection and normal bowel sounds Percussion/Palpation: abdomen soft Neurologic: moves all extremities; no focal motor deficits Psychiatric: A+Ox3, euthymic affect Lymphatic: no cervical or axillary lymphadenopathy Results & Data Vital Signs (Past 12 Hours) Vital Signs Temp Pulse Pulse Resp BP BP Pulse Ox 01/10/19 14:24 81 18 98 01/10/19 11:41 36.8 C 67 16 127/59 L 98 01/10/19 11:34 37.1 C 76 16 120/67 98 01/10/19 08:01 36.8 C 78 20 127/49 L 97 01/10/19 08:00 80 01/10/19 07:14 78 20 97 01/10/19 05:33 81 137/57 L 97 01/10/19 05:29 36.8 C 82 22 117/45 L 96 01/10/19 04:03 81 16 99 01/10/19 03:51 98 01/10/19 03:43 37.7 C H 89 19 129/100 95 Laboratory Results Short CBC 01/10/19 Range/Units 04:07 WBC 16.29 H (4.8-10.8) K/uL Hgb 8.0 L (12.0-16.0) g/dL Hct 26.6 L (37-47) % Plt Count 181 (130-400) K/uL BMP 01/10/19 04:07 Sodium 140 Potassium 3.8 Chloride 95 L Carbon Dioxide 43 H* BUN 32 H Creatinine 1.45 H Glucose 115 H Calcium 9.7 Cardiac Enzymes 01/10/19 Range/Units 04:07 Troponin I < 0.015 (0-0.045) ng/ml Medications Administered Current Inpatient Medications Acetaminophen (Tylenol) 650 mg PO Q4H PRN PRN Reason: Pain or Fever Stop: 02/09/19 06:13 Allopurinol (Zyloprim) 300 mg PO DAILY [facility] Stop: 02/09/19 08:59 Last Admin: 01/10/19 07:37 Dose: 300 mg Documented by: Aspirin (Ecotrin Ectab) 81 mg PO DAILY [facility] Stop: 02/09/19 08:59 Last Admin: 01/10/19 07:37 Dose: 81 mg Documented by: Atorvastatin Calcium (Lipitor) 20 mg PO QPM [facility] Stop: 02/09/19 20:59 Bumetanide (Bumex) 1 mg PO BID17 [facility] Stop: 02/09/19 08:59 Last Admin: 01/10/19 07:37 Dose: 1 mg Documented by: Gabapentin (Neurontin) 600 mg PO TID [facility] Stop: 02/09/19 08:59 Last Admin: 01/10/19 13:33 Dose: 600 mg Documented by: Methylprednisolone 40 mg/ (Syringe) 0.64 mls @ 1.5 mls/min IV TID [facility] Stop: 02/09/19 08:59 Last Admin: 01/10/19 13:33 Dose: 1.5 mls/min Documented by: Levofloxacin/Dextrose (Levaquin/D5w) 750 mg in 150 mls @ 100 mls/hr IV Q2D@0500 [facility] Stop: 01/19/19 04:59 Ipratropium [place] (Atrovent 0.02% 0.5mg/2.5ml) 0.5 mg INH Q6R [facility] Stop: 02/09/19 07:59 Last Admin: 01/10/19 14:24 Dose: 0.5 mg Documented by: Lactobacillus Acidophilus (Floranex) 1 tab PO TID [facility] Stop: 02/09/19 08:59 Last Admin: 01/10/19 13:33 Dose: 1 tab Documented by: Levalbuterol HCl (Xopenex 1.25mg/0.5ml Neb) 1.25 mg INH Q6R [facility] Stop: 02/09/19 07:59 Last Admin: 01/10/19 14:24 Dose: 1.25 mg Documented by: Levothyroxine Sodium (Synthroid) 88 mcg PO DAILYBB [facility] Stop: 02/09/19 06:29 Last Admin: 01/10/19 07:37 Dose: 88 mcg Documented by: Losartan Potassium (Cozaar) 50 mg PO DAILY [facility] Stop: 02/09/19 08:59 Last Admin: 01/10/19 07:37 Dose: 50 mg Documented by: Metolazone (Zaroxolyn) 2.5 mg PO MoFr@0900 [facility] Stop: 02/12/19 08:59 Metoprolol Succinate (Toprol Xl) 50 mg PO DAILY [facility] Stop: 02/09/19 08:59 Last Admin: 01/10/19 07:37 Dose: 50 mg Documented by: Miscellaneous (Order Awaiting Action) 1 ea N/A QS [facility] Stop: 02/09/19 07:59 Last Admin: 01/10/19 15:12 Dose: Not Given Documented by: Miscellaneous Information (Consult) 1 ea N/A UD PRN PRN Reason: Consult Stop: 02/09/19 06:18 Multivitamins (Multivitamin Tab) 1 tab PO DAILY [facility] Stop: 02/09/19 08:59 Last Admin: 01/10/19 07:37 Dose: 1 tab Documented by: Nitroglycerin (Nitrostat) 0.4 mg SL UD PRN PRN Reason: Chest Pain Stop: 02/09/19 06:13 Ondansetron HCl (Zofran) 4 mg IV Q6H PRN PRN Reason: Nausea Stop: 02/09/19 06:13 Pantoprazole Sodium (Protonix) 40 mg PO BID [facility] Stop: 02/09/19 08:59 Last Admin: 01/10/19 07:37 Dose: 40 mg Documented by: Potassium Chloride (Klor-Con M20) 20 meq PO Q2D@0900 [facility] Stop: 02/10/19 08:59 Propafenone HCl (Rythmol) 150 mg PO Q8 [facility] Stop: 02/09/19 06:59 Last Admin: 01/10/19 13:33 Dose: 150 mg Documented by: Ranitidine HCl (Zantac) 150 mg PO BID [facility] Stop: 02/09/19 08:59 Last Admin: 01/10/19 07:37 Dose: 150 mg Documented by: Roflumilast (Daliresp) 500 mcg PO DAILY [facility] Stop: 02/09/19 08:59 Last Admin: 01/10/19 07:37 Dose: 500 mcg Documented by: Sertraline HCl (Zoloft) 25 mg PO DAILY [facility] Stop: 02/09/19 08:59 Last Admin: 01/10/19 07:38 Dose: 25 mg Documented by: Sucralfate (Carafate Tab) 1 gm PO ACHS [facility] Stop: 02/09/19 07:29 Last Admin: 01/10/19 11:50 Dose: 1 gm Documented by: Vitamin D (Vitamin D3) 2,000 units PO [facility] Stop: 02/09/19 08:59 Last Admin: 01/10/19 07:37 Dose: 2,000 units Documented by:
[2019-01-10] MEDS ORDERED: COUGH DROP (SUGAR FREE) LOZ 24 LOZ/1 BOX BUCCAL PRN (15:40)
[2019-01-10] MEDS: ATORVASTATIN 20 MG TAB PO SCH (20:53)
[2019-01-11] MEDS: IPRATROPIUM BROMIDE NEB SOLN 0.02% 2.5 ML VIAL INH SCH ×4 (02:09→19:30)
[2019-01-11] MEDS: LEVALBUTEROL 1.25MG/0.5ML NEB INH SCH ×4 (02:10→19:33)
[2019-01-11] MEDS ORDERED: LEVOFLOXACIN/D5W 750 MG/150 ML BAG IV SCH (05:00)
[2019-01-11] MEDS: PROPAFENONE HCL 150 MG TABLET PO SCH ×3 (05:36→20:53)
[2019-01-11] MEDS: LEVOTHYROXINE SODIUM 88 MCG TABLET PO SCH (05:36)
[2019-01-11 05:49] LABS: Basophils # (auto) 0.02 K/uL (0-0.2); Basophils % (auto) 0.1 %; Hematocrit (blood only) 26.6 % (37-47); Hemoglobin 8.2 g/dL (12.0-16.0); Immature Granulocytes # (auto) 0.13 K/uL (0.00-0.02); Immature Granulocytes % (auto) 0.7 %; Mean Corpuscular Hgb Conc 30.8 g/dL (32-36); Mean Corpuscular Volume 98.2 fL (80-100); Mean Platelet Volume 8.9 fL (7.4-10.4); Monocytes # (auto) 0.27 K/uL (0.11-0.59); Monocytes % (auto) 1.5 %; Neutrophils # (auto) 16.65 K/uL (1.4-6.5); Neutrophils % (auto) 92.7 %; Platelet Count 200 K/uL (130-400); RDW Coefficient of Variation 14.5 % (11.5-14.5); Red Blood Count 2.71 M/uL (4.2-5.4); White Blood Count 17.97 K/uL (4.8-10.8)
[2019-01-11 06:20] LABS: BUN Creatinine Ratio 26.3 (10-20); Calcium 9.9 mg/dl (8.5-10.1); Creatinine Clr Calc Pharmacy 38.3 ml/min; Est GFR (African American) 36.3; Est GFR (Non-African American) 31.4; Magnesium 1.9 mg/dl (1.8-2.4)
[2019-01-11] MEDS: BREO ELLIPTA ~ ORDER AWAITING ACTION SCH ×3 (07:46→23:41)
[2019-01-11] MEDS: MULTIVITAMIN TAB PO SCH (07:47)
[2019-01-11] MEDS: LOSARTAN POTASSIUM 50 MG TAB PO SCH (07:47)
[2019-01-11] MEDS: BUMETANIDE 1 MG TAB PO SCH (07:47)
[2019-01-11] MEDS: METOPROLOL SUCC 50MG EXT REL TAB PO SCH (07:47)
[2019-01-11] MEDS: LACTOBACILLUS ACIDOPHILUS (FLORANEX) TAB PO SCH ×3 (07:48→20:49)
[2019-01-11] MEDS: GABAPENTIN 600 MG TAB PO SCH ×3 (07:48→20:51)
[2019-01-11] MEDS: SUCRALFATE 1 GM TAB PO SCH ×4 (07:48→20:48)
[2019-01-11] MEDS: SERTRALINE HCL 50 MG TABLET PO SCH (07:48)
[2019-01-11] MEDS: ROFLUMILAST 500 MCG TAB PO SCH (07:48)
[2019-01-11] MEDS: ALLOPURINOL 300 MG TAB PO SCH (07:48)
[2019-01-11] MEDS: PANTOprazole 40 MG TAB PO SCH ×2 (07:48→20:53)
[2019-01-11] MEDS: ASPIRIN 81 MG ECTAB PO SCH (07:48)
[2019-01-11] MEDS: CHOLECALCIFEROL 1,000 UNITS TAB PO SCH (07:48)
[2019-01-11] MEDS: methylPREDNISolone 40 MG in SYRINGE 0 ML IV SCH ×3 (08:57→20:59)
[2019-01-11] MEDS ORDERED: POTASSIUM CHLORIDE 20 MEQ TABCR PO SCH (09:00)
--- NOTE | 2019-01-11 19:05 | Hospitalist Progress Note ---
Date of Service January 11, 2019 Assessment & Plan (1) COPD exacerbation: (2) Chronic respiratory failure with hypoxia, on home O2 therapy: Present on admission with fever and cough with yellowish phlegm and shortness of breath Possible related to acute bronchitis complicating COPD Will change IV solumedrol to prednisone Continue levalbuterol, ipratropium, bumetanide. Continue oxygen supplement. Restart liliya on discharge On Levaquin IV, will change to oral Pulmonology on board Clinically improving (3) Diastolic CHF, chronic: CXR showed cardiomegaly and stable interstitial thickening No acute fluid overload stable (4) Paroxysmal a-fib: Rate controlled on metoprolol Not for any anticoagulation due to history of GI bleed and hematoma Stable (5) Depression: Continue current therapy Stable (6) CKD (chronic kidney disease), stage IV: Creatinine remains stable DVT prophylaxis-SCDs CODE STATUS FULL CODE Subjective Pt was seen and examined Lying in bed with no distress Pt said that breathing improves She said that her cough improves Denies any chest pain, palpitation and dizziness Physical Exam Physical Exam: General- No acute distress Head- atraumatic Eyes- PERRL, EOMI, ENT- oropharynx clear Neck- supple, no JVD Lungs- Diminished BS, +rhonchi Heart- regular rhythm; no murmur Abdomen- normal bowel sounds, soft, nontender Extremities- no calf tenderness Neuro- alert, oriented x 3; PERRL, EOMI; no facial palsy; no dysarthria Skin- warm & dry Results & Data Vital Signs (Past 12 Hours) Vital Signs Temp Pulse Pulse Resp BP Pulse Ox 01/11/19 15:15 36.6 C 76 22 143/72 H 98 01/11/19 14:05 80 18 98 01/11/19 12:38 36.7 C 78 18 124/72 98 01/11/19 08:00 83 01/11/19 07:23 36.7 C 78 18 152/76 H 98
[2019-01-11] MEDS: ATORVASTATIN 20 MG TAB PO SCH (20:50)
[2019-01-12] MEDS: LEVALBUTEROL 1.25MG/0.5ML NEB INH SCH ×3 (01:28→13:33)
[2019-01-12] MEDS: IPRATROPIUM BROMIDE NEB SOLN 0.02% 2.5 ML VIAL INH SCH ×3 (01:28→13:33)
[2019-01-12] MEDS ORDERED: LEVOFLOXACIN/D5W 750 MG/150 ML BAG IV SCH (05:00)
[2019-01-12] MEDS: PROPAFENONE HCL 150 MG TABLET PO SCH ×2 (05:38→13:57)
[2019-01-12] MEDS: LEVOTHYROXINE SODIUM 88 MCG TABLET PO SCH (05:38)
[2019-01-12] MEDS: BREO ELLIPTA ~ ORDER AWAITING ACTION SCH (07:50)
[2019-01-12] MEDS: SUCRALFATE 1 GM TAB PO SCH ×2 (07:50→11:24)
[2019-01-12] MEDS: MULTIVITAMIN TAB PO SCH (08:29)
[2019-01-12] MEDS: LACTOBACILLUS ACIDOPHILUS (FLORANEX) TAB PO SCH ×2 (08:29→13:57)
[2019-01-12] MEDS: ROFLUMILAST 500 MCG TAB PO SCH (08:29)
[2019-01-12] MEDS: ALLOPURINOL 300 MG TAB PO SCH (08:29)
[2019-01-12] MEDS: GABAPENTIN 600 MG TAB PO SCH ×2 (08:29→13:57)
[2019-01-12] MEDS: PANTOprazole 40 MG TAB PO SCH (08:29)
[2019-01-12] MEDS: CHOLECALCIFEROL 1,000 UNITS TAB PO SCH (08:29)
[2019-01-12] MEDS: METOPROLOL SUCC 50MG EXT REL TAB PO SCH (08:29)
[2019-01-12] MEDS: SERTRALINE HCL 50 MG TABLET PO SCH (08:30)
[2019-01-12] MEDS: methylPREDNISolone 40 MG in SYRINGE 0 ML IV SCH ×2 (08:30→13:57)
[2019-01-12] MEDS: ASPIRIN 81 MG ECTAB PO SCH (08:30)
[2019-01-12 08:41] LABS: BUN Creatinine Ratio 32.3 (10-20); Creatinine Clr Calc Pharmacy 41.1 ml/min; Est GFR (African American) 39.2; Est GFR (Non-African American) 33.8; Potassium 3.9 mmol/L (3.5-5.1)
--- NOTE | 2019-01-12 13:16 | Hospitalist Progress Note ---
Date of Service January 12, 2019 Assessment & Plan (1) COPD exacerbation: (2) Chronic respiratory failure with hypoxia, on home O2 therapy: Present on admission with fever and cough with yellowish phlegm and shortness of breath Possible related to acute bronchitis complicating COPD Will change IV solumedrol to prednisone Continue levalbuterol, ipratropium, bumetanide. Continue oxygen supplement. Restart breo on discharge On Levaquin IV, will change to oral levaquin on discharge Continue Bipap at night Pulmonology on board OK from pulmonology standpoint to discharge home Clinically improving (3) Diastolic CHF, chronic: CXR showed cardiomegaly and stable interstitial thickening No acute fluid overload stable (4) Paroxysmal a-fib: Rate controlled on metoprolol Not for any anticoagulation due to history of GI bleed and hematoma Stable (5) Depression: Continue current therapy Stable (6) CKD (chronic kidney disease), stage IV: Creatinine remains stable DVT prophylaxis-SCDs CODE STATUS FULL CODE Disposition Will discharge today Follow up with primary care provider in 1 week Subjective Pt was seen and examined Sitting at the edge of the bed with no distress eating lunch Pt said that she feels ok She said that her cough improves Denies any chest pain, palpitation, dizziness and SOB Physical Exam Physical Exam: General- No acute distress Head- atraumatic Eyes- PERRL, EOMI, ENT- oropharynx clear Neck- supple, no JVD Lungs- No wheezing, no crackles Heart- regular rhythm; no murmur Abdomen- normal bowel sounds, soft, nontender Extremities- no calf tenderness Neuro- alert, oriented x 3; PERRL, EOMI; no facial palsy; no dysarthria Skin- warm & dry Results & Data Vital Signs (Past 12 Hours) Vital Signs Temp Pulse Pulse Resp BP Pulse Ox 01/12/19 11:44 36.6 C 71 18 141/62 H 100 01/12/19 08:00 65 01/12/19 07:39 36.6 C 70 16 157/76 H 94 01/12/19 07:27 70 20 01/12/19 04:13 88 01/12/19 03:05 36.6 C 75 18 158/51 H 93 01/12/19 01:28 68 20 98
--- NOTE | 2019-01-13 07:53 | Discharge Summary ---
Date of Service January 12, 2019 Admission HPI Per Admitting Provider CHIEF COMPLAINT: Shortness of breath, cough, and leg weakness. HISTORY OF PRESENT ILLNESS: This is a 68-year-old female with past medical history significant for severe COPD, chronic respiratory failure on 4 liters oxygen all the time, hyperlipidemia, hypothyroidism, atrial fibrillation, not on anticoagulation secondary to history of GI bleeding and hematoma, right-sided heart failure, hypertension, chronic kidney disease stage III-IV, iron deficiency anemia, spinal stenosis, depression with anxiety, multiple admissions for COPD exacerbation, recently was in the hospital for COPD exacerbation and also heme-positive stool, status post EGD showing nonbleeding gastric ulcer, discharged on December 31, presents with increasing cough with phlegm, weakness, pain in the hands and legs, shortness of breath, she is always on 4 liters of oxygen, ambulates without any help, but holds on to stuff in the house, lives with her daughter. Has temp spike in the ER and also has leukocytosis, has some headaches. No blurred vision, no sore throat, appetite is not great. No difficulty swallowing. No chest pain, no nausea, no vomiting, no abdominal pain. Normal bowel and bladder movements. No blood in the stools or black stools, no burning micturition. No swelling in the legs. No rash. Admission Exam Per Admitting Provider GENERAL: The patient is alert and awake, not in acute distress. VITAL SIGNS: Temperature 37.7, pulse 81, respiratory rate 16, blood pressure 129/100, oxygen 99% on 4 liters. HEENT: No pallor, no icterus. Pupils equal, round, and reactive to light. NECK: No JVD. No neck masses, no carotid bruits. CARDIOVASCULAR: S1, S2 heard, regular rate and rhythm. No murmur, no gallop. RESPIRATORY SYSTEM: Normal AP diameter. No accessory muscle use. Bilateral rhonchi heard. ABDOMEN: Soft, bowel sounds present. Mild diffuse discomfort. No guarding. No rigidity. No distention. CENTRAL NERVOUS SYSTEM: Cranial nerves II-XII grossly intact. Nonfocal. EXTREMITIES: No edema, no erythema. Principal Diagnosis COPD exacerbation Chronic respiratory failure with hypoxia, on home O2 therapy Diastolic CHF, chronic Paroxysmal a-fib Depression Discharge Exam General- No acute distress Head- atraumatic Eyes- PERRL, EOMI, ENT- oropharynx clear Neck- supple, no JVD Lungs- No wheezing, no crackles Heart- regular rhythm; no murmur Abdomen- normal bowel sounds, soft, nontender Extremities- no calf tenderness Neuro- alert, oriented x 3; PERRL, EOMI; no facial palsy; no dysarthria Skin- warm & dry Discharge Data Allergies Allergy/AdvReac Type Severity Reaction Status Date / Time adhesive Allergy Severe RED RASH Verified 01/10/19 04:19 latex AdvReac Mild TAPE-SORE Verified 01/10/19 04:19 morphine AdvReac Mild DELUSIONS Verified 01/10/19 04:19 Consultations 01/10/19 04:42 ED Decision to Admit Stat 01/10/19 06:14 Consult Case Management - Discharge Planning Routine 01/10/19 08:00 Consult Pulmonology Routine Ordered Studies XR chest 1V portable CLINICAL HISTORY: Shortness of breath COMPARISON STUDY: 12/28/2018 FINDINGS: The heart remains enlarged. There is mild elevation of the interstitium. This appears chronic. There is no lobar consolidation. There are no pleural effusions. There is stable left basilar atelectasis/scarring. Postprocedural changes of prior vertebroplasty are evident. There are postsurgical changes of a total right shoulder arthroplasty.[ IMPRESSION: Cardiomegaly and stable interstitial thickening Electronically signed by: Fox Garcia M.D. 01/10/2019 6:30 AM Dictated: 01/10/19628 Transcribed: 01/10/19628 Hospital Course (1) COPD exacerbation: Admitted with fever and cough with yellowish phlegm and shortness of breath Noted to have high white count at presentation Likely has acute bronchitis complicating COPD Started with intravenous Solu-Medrol, nebulized bronchodilators and antibiotic Appreciate pulmonary input and recommendation;continue levalbuterol, ipratropium, bumetanide. restart breo on discharge Clinically improving (2) Chronic respiratory failure with hypoxia, on home O2 therapy: Present on admission with fever and cough with yellowish phlegm and shortness of breath Possible related to acute bronchitis complicating COPD Will change IV solumedrol to prednisone Continue levalbuterol, ipratropium, bumetanide. Continue oxygen supplement. Restart breo on discharge On Levaquin IV, will change to oral levaquin on discharge Continue Bipap at night Pulmonology on board [place] from pulmonology standpoint to discharge home Clinically improving (3) Diastolic CHF, chronic: CXR showed cardiomegaly and stable interstitial thickening No acute fluid overload stable (4) Paroxysmal a-fib: Rate controlled on metoprolol Not for any anticoagulation due to history of GI bleed and hematoma Stable (5) Depression: Continue current therapy Stable (6) CKD (chronic kidney disease), stage IV: Creatinine remains stable DVT prophylaxis-SCDs CODE STATUS FULL CODE Disposition Will discharge today Follow up with primary care provider in 1 week Total Time Total Time Spent Total Time Spent (In Minutes): 35 minutes Total Time Includes: Examination of the Patient, Discharge Planning, Medication Reconciliation, Communication With Other Providers and Other Discharge Plan Discharge Items Patient Disposition: Home - Home Health Services Reason For Visit: SHORT OF BREATH, COUGH Discharge Diagnosis: COPD exacerbation Chronic respiratory failure with hypoxia, on home O2 therapy Diastolic CHF, chronic Paroxysmal a-fib Depression Discharge Goals: Decrease discomfort, Improve disease control, Improve function and Increase independence Activity: Resume your previous activity Activity Comment: As tolerated Non-emergency contact: Primary Care Provider Call non-emergency contact if: you have any medication questions Follow-up/Referrals: Babak Melendez MD [Primary Care Provider] - Diet: Heart Healthy Addtl Provider Instructions: Follow up with your primary care provider Dr. Melendez within 1 week (Office will call you for the appointment) Continue oxygen supplement Continue Bipap at night Fall precaution Continue antibiotic supplement (Next dose to be given on 01/14/19) Check BMP in 1 week to monitor renal function Prescriptions: New levofloxacin [Levaquin] 750 mg tablet 750 mg PO Q48H Qty: 2 RF: 0 prednisone 10 mg tablet 10 mg PO UD Qty: 20 RF: 0 guaifenesin 200 mg tablet 200 mg PO TID PRN (Reason: cough) 5 Days Qty: 15 RF: 0 Continued Breo Ellipta 200-25 mcg/dose Blister With Device 1 inh INHALATION DAILY RF: 0 multivitamin Tablet 1 tab PO DAILY RF: 0 losartan 50 mg Tablet 50 mg PO DAILY RF: 0 metolazone 2.5 mg Tablet 2.5 mg PO MOFR RF: 0 propafenone 150 mg Tablet 150 mg PO Q8H RF: 0 gabapentin 600 mg Tablet 600 mg PO TID RF: 0 atorvastatin 20 mg Tablet 20 mg PO QPM RF: 0 metoprolol succinate 50 mg Tablet Extended Release 24 Hr 50 mg PO DAILY RF: 0 aspirin [Aspir-81] 81 mg Tablet,Delayed Release (Dr/Ec) 81 mg PO DAILY RF: 0 levothyroxine 88 mcg Tablet 88 mcg PO DAILYBB RF: 0 ranitidine HCl 150 mg Tablet 150 mg PO BID RF: 0 sertraline [Zoloft] 25 mg Tablet 25 mg PO DAILY RF: 0 bumetanide 1 mg Tablet 1 mg PO BID RF: 0 allopurinol 300 mg Tablet 300 mg PO DAILY RF: 0 cholecalciferol (vitamin D3) [Vitamin D3] 2,000 unit Tablet 2,000 unit PO QAM RF: 0 Lactinex 1 million cell Tablet,Chewable 1 tab PO TID RF: 0 Daliresp 500 mcg Tablet 500 mcg PO DAILY RF: 0 potassium chloride 20 mEq Tablet Extended Release 20 meq PO Q OTHER DAY RF: 0 acetaminophen [Tylenol] 325 mg Capsule 650 mg PO Q4 PRN (Reason: Fever Or Pain) RF: 0 albuterol sulfate 2.5 mg /3 mL (0.083 %) Solution For Nebulization 2.5 mg INHALATION Q6 PRN (Reason: Shortness Of Breath Or Wheezing) RF: 0 pantoprazole 40 mg Tablet,Delayed Release (Dr/Ec) 40 mg PO BID 30 Days Qty: 60 RF: 0 sucralfate 1 gram tablet 1 gm PO ACHS 28 Days Qty: 28 RF: 0 Discontinued doxycycline hyclate 100 mg Capsule 100 mg PO BID@0800,2000 Qty: 3 RF: 0 Stand-Alone Forms: [facility] Discharge Orders: Discharge Order (Routine); Ordered 01/12/19 Ordered By: Tomasz Prescott Admission Data Admit Date/Time: 01/11/19 19:30 Attending Provider: Tomasz Prescott Admit Provider: Manjit Frias Primary Care Provider: Babak Melendez Other Providers: Manjit Frias ; Charlie Dickey ; Ruth Thomas Service: Telemetry Medical Other Interventions: Discharge Summary Assessment (RN) Last Done: 01/12/19 14:04 DC Date/Time DO NOT enter until pt leaves facility: 01/12/19 14:20
[2019-01-13] MEDS ORDERED: metOLazone 2.5 MG TABLET PO SCH (09:00)
== END 2019-01-12 14:20 | disposition home health service (06) | DRG 190 ==
LOC: 2N 03:40 → ED 03:40 → SUATTDRO 05:43 → 2N 05:47

== ENCOUNTER 2019-01-24 03:47 | Inpatient (IN) ==
[2019-01-24 05:04] LABS: Prothrombin Time 10.3 Seconds (9.0-12.0)
[2019-01-24 05:05] LABS: BUN Creatinine Ratio 25.2 (10-20); Blood Urea Nitrogen 25 mg/dl (7-18); Calcium 9.7 mg/dl (8.5-10.1); Carbon Dioxide 42 mmol/L (21-32); Chloride 99 mmol/L (98-107); Creatinine Clr Calc Pharmacy 65.6 ml/min; Est GFR (African American) 66.9; Est GFR (Non-African American) 57.7; Glucose 107 mg/dl (70-99); Magnesium 1.9 mg/dl (1.8-2.4); NT Pro B Type Natriuretic Pept 1175 pg/ml (0-900); Potassium 3.9 mmol/L (3.5-5.1); Sodium 143 mmol/L (136-145); Troponin I < 0.015 ng/ml (0-0.045)
[2019-01-24 05:09] LABS: Hematocrit (blood only) 25.8 % (37-47); Hemoglobin 7.6 g/dL (12.0-16.0); Mean Corpuscular Hgb Conc 29.5 g/dL (32-36); Mean Corpuscular Volume 100.8 fL (80-100); Platelet Count 168 K/uL (130-400); RDW Coefficient of Variation 15.2 % (11.5-14.5); RDW Standard Deviation 55.3 fL (36.4-46.3); Red Blood Count 2.56 M/uL (4.2-5.4); White Blood Count 13.65 K/uL (4.8-10.8)
[2019-01-24 05:17] LABS: Basophilic Stippling 1+; Basophils # (auto) 0.01 K/uL (0-0.2); Basophils % (auto) 0.1 %; Eosinophils # (auto) 0.24 K/uL (0-0.5); Eosinophils % (auto) 1.8 %; Immature Granulocytes # (auto) 0.23 K/uL (0.00-0.02); Immature Granulocytes % (auto) 1.7 %; Lymphocytes # (auto) 2.16 K/uL (1.2-3.4); Lymphocytes % (auto) 15.8 %; Monocytes # (auto) 0.81 K/uL (0.11-0.59); Monocytes % (auto) 5.9 %; Neutrophils % (auto) 74.7 %; Stomatocytes 2+
[2019-01-24] MEDS ORDERED: MAGNESIUM SULFATE 1GM / D5W BAG IV ONE (05:47)
[2019-01-24] MEDS ORDERED: FUROSEMIDE 40 MG/4 ML VIAL IV ONE (05:47)
[2019-01-24] MEDS ORDERED: METOPROLOL SUCC 50MG EXT REL TAB ONE (05:47)
--- NOTE | 2019-01-24 06:18 | History & Physical Report ---
Date of Service January 24, 2019 Assessment & Plan (1) SOB (shortness of breath): Exertional dyspnea Multifactorial : Decompensated right-sided heart failure, weight gain of 10 pounds from last documented inpatient weight ? Uncontrolled blood pressure as precipitant Symptomatic anemia, Hg drop from baseline chronic hypoxemic respiratory failure secondary to COPD on home O2, oxygenation seems at baseline hx pulmonary hypertension, OHS on CPAP paroxysmal atrial fibrillation, px NSR on propafenone, not on anticoagulation secondary to GI bleed chronic renal insufficiency, hemoglobin better than baseline Past tobacco abuse PCU Diuretic Rx Strict IOs, daily weights, CHF education, fluid restriction Update TTE, Cardiology consult RE CHF Transfuse PRBC to maintain hemoglobin greater than 8 Facilitate home BP meds, may need titration PT OT eval DVT prophylaxis. SCDs RE history GI bleed Full code History of Present Illness Chief Complaint: exertional shortness of breath Primary Care Provider: Babak Melendez MD History obtained from patient and records. Medical history significant for chronic hypoxemic respiratory failure secondary to COPD on home O2, pulmonary hypertension, OHS on CPAP, paroxysmal atrial fibrillation not on anticoagulation, hypertension, chronic diastolic heart failure, EF of 55-60, TTE 2017, past t obacco abuse, chronic renal insufficiency, baseline creatinine 1.5-2, chronic anemia (baseline hemoglobin of 8). Recent confinement 2 weeks ago for COPD exacerbation. Last few days, patient noted shortness of breath mostly on exertion. Intermittent chest discomfort. Leg somewhat more swollen than usual. Compliant with home diuretic regimen. Denies dietary indiscretion. Not aware of any need for fluid restriction at home. Usual cough symptoms. Denies abdominal pain, black/bloody stools. Patient felt more short of breath she went to her bathroom this morning. Medical History as above Surgical History : Appendectomy, cholecystectomy, wrist surgery, shoulder surgery, hip replacement, neck surgery Family History : Diabetes, heart disease Personal/Social history : Past tobacco abuse, no EtOH intake, retired from [employer] work Allergies Allergy/AdvReac Type Severity Reaction Status Date / Time adhesive Allergy Severe RED RASH Verified 01/24/19 04:15 latex AdvReac Mild TAPE-SORE Verified 01/24/19 04:15 morphine AdvReac Mild DELUSIONS Verified 01/24/19 04:15 Home Medications Home Medications Medication Instructions Recorded Confirmed Type Breo Ellipta 1 inh INHALATION DAILY 03/12/18 01/24/19 History Daliresp 500 mcg PO DAILY 03/12/18 01/24/19 History Lactinex 1 tab PO TID 03/12/18 01/24/19 History allopurinol 300 mg PO DAILY 03/12/18 01/24/19 History aspirin [Aspir-81] 81 mg PO DAILY 03/12/18 01/24/19 History atorvastatin 20 mg PO QPM 03/12/18 01/24/19 History bumetanide 1 mg PO BID 03/12/18 01/24/19 History cholecalciferol (vitamin D3) 2,000 unit PO QAM 03/12/18 01/24/19 History [Vitamin D3] gabapentin 600 mg PO TID 03/12/18 01/24/19 History levothyroxine 88 mcg PO DAILYBB 03/12/18 01/24/19 History losartan 50 mg PO DAILY 03/12/18 01/24/19 History metolazone 2.5 mg PO MOFR 03/12/18 01/24/19 History metoprolol succinate 50 mg PO DAILY 03/12/18 01/24/19 History multivitamin 1 tab PO DAILY 03/12/18 01/24/19 History potassium chloride 20 meq PO Q OTHER DAY 03/12/18 01/24/19 History propafenone 150 mg PO Q8H 03/12/18 01/24/19 History ranitidine HCl 150 mg PO BID 03/12/18 01/24/19 History sertraline [Zoloft] 25 mg PO DAILY 03/12/18 01/24/19 History acetaminophen [Tylenol] 650 mg PO Q4 PRN 08/07/18 01/24/19 History albuterol sulfate 2.5 mg INHALATION Q6 PRN 08/07/18 01/24/19 History pantoprazole 40 mg PO BID 30 Days #60 tab 12/31/18 01/24/19 Rx sucralfate 1 gm PO ACHS 28 Days #28 tab 12/31/18 01/24/19 Rx prednisone 10 mg PO UD #20 tab 01/12/19 01/24/19 Rx Past Med/Surg History Medical History Chronic respiratory failure with hypoxia, on home O2 therapy (Chronic) Anemia (Chronic) Chronic anemia (Chronic) Diarrhea DVT prophylaxis Diastolic CHF, chronic (Chronic) Acute bronchitis COPD exacerbation GERD (gastroesophageal reflux disease) (Chronic) Depression (Chronic) Myocardial infarction (Chronic) "per patient, details unknown" COPD (chronic obstructive pulmonary disease) (Chronic) Paroxysmal a-fib (Chronic) HTN (hypertension) (Chronic) Dyslipidemia (Chronic) EVONNE (iron deficiency anemia) (Chronic) CKD (chronic kidney disease), stage IV (Chronic) Asthma (Chronic) Lumbar spinal stenosis (Chronic) Morbid obesity (Chronic) Obesity hypoventilation syndrome (Chronic) Chronic respiratory failure (Chronic) Surgical History S/P cervical spinal fusion (Chronic) History of appendectomy (Chronic) Hx of cholecystectomy (Chronic) S/P wrist surgery (Chronic) 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) Family History Father Trauma Mother Diabetes Cerebral aneurysm Daughter Bipolar 1 disorder Social History Preferred Language: Panamanian Communication Ability: Effective 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 Beliefs That Will Affect Care: None marital status: Current Living Situation: Family Current Living Situation Comment: Lives with her daughter - Noreen Other Information That Helps Us Care for You: No Feels Safe at Home: Yes Safety Concerns: Feels Safe At This Time Smoking Status: Former smoker Tobacco Type: cigarettes Cigarettes Per Day: 2 packs Do You Dip or Chew Tobacco: No Smoking End Date: At age 55 Second Hand Exposure: No Tobacco Cessation Education Requested by Patient: No Hx Alcohol Use: No Hx Substance Use: No Review of Systems Review of Systems: As per HPI, all 10 systems reviewed, all other ROS negative Physical Exam Physical Exam: GENERAL: Anxious, obese, no overt respiratory distress SKIN: Pallor , warm HEENT: pale palpebral conjunctivae, no ptosis, dry buccal mucosa NECK : Supple, short neck, no tenderness CHEST : Expiratory wheezes, no tenderness HEART : RRR, no obvious murmurs ABDOMEN: distention, nontender EXTREMITIES : Bilateral LE swelling, no LE tenderness, no other conspicuous deformities noted NEUROLOGIC : Coherent, no facial asymmetry, slightly hard of hearing, gait and stance not assessed Results & Data Vital Signs (Past 12 Hours) Vital Signs Temp Pulse Pulse Resp BP BP Pulse Ox 01/24/19 06:02 92 H 215/81 H 98 01/24/19 03:52 37.2 C 95 H 20 190/64 H 100 Laboratory Results Laboratory Results WBC 13.65 K/uL (4.8-10.8) H 01/24/19 04:28 RBC 2.56 M/uL (4.2-5.4) L 01/24/19 04:28 Hgb 7.6 g/dL (12.0-16.0) L 01/24/19 04:28 Hct 25.8 % (37-47) L 01/24/19 04:28 MCV 100.8 fL (80-100) H 01/24/19 04:28 MCH 29.7 pg (25-34) 01/24/19 04:28 MCHC 29.5 g/dL (32-36) L 01/24/19 04:28 RDW Std Deviation 55.3 fL (36.4-46.3) H 01/24/19 04:28 RDW Coeff of Arabella 15.2 % (11.5-14.5) H 01/24/19 04:28 Plt Count 168 K/uL (130-400) 01/24/19 04:28 MPV 9.0 fL (7.4-10.4) 01/24/19 04:28 Immature Gran % (Auto) 1.7 % 01/24/19 04:28 Neut % (Auto) 74.7 % 01/24/19 04:28 Lymph % (Auto) 15.8 % 01/24/19 04:28 Mills % (Auto) 5.9 % 01/24/19 04:28 Eos % (Auto) 1.8 % 01/24/19 04:28 Baso % (Auto) 0.1 % 01/24/19 04:28 Immature Gran # (Auto) 0.23 K/uL (0.00-0.02) H 01/24/19 04:28 Neut # (Auto) 10.20 K/uL (1.4-6.5) H 01/24/19 04:28 Lymph # (Auto) 2.16 K/uL (1.2-3.4) 01/24/19 04:28 Mills # (Auto) 0.81 K/uL (0.11-0.59) H 01/24/19 04:28 Eos # (Auto) 0.24 K/uL (0-0.5) 01/24/19 04:28 Baso # (Auto) 0.01 K/uL (0-0.2) 01/24/19 04:28 Basophilic Stippling 1+ 01/24/19 04:28 Stomatocytes 2+ 01/24/19 04:28 PT 10.3 Seconds (9.0-12.0) 01/24/19 04:28 INR 1.0 (0.9-1.1) 01/24/19 04:28 ABG pH Cancelled 01/24/19 05:52 ABG pCO2 Cancelled 01/24/19 05:52 ABG pO2 Cancelled 01/24/19 05:52 ABG HCO3 Cancelled 01/24/19 05:52 ABG O2 Saturation Cancelled 01/24/19 05:52 ABG Base Excess Cancelled 01/24/19 05:52 Alvaro Test Cancelled 01/24/19 05:52 Barometric Pressure Cancelled 01/24/19 05:52 Oxygen Given Cancelled 01/24/19 05:52 Sodium 143 mmol/L (136-145) 01/24/19 04:28 Potassium 3.9 mmol/L (3.5-5.1) 01/24/19 04:28 Chloride 99 mmol/L (98-107) 01/24/19 04:28 Carbon Dioxide 42 mmol/L (21-32) H* 01/24/19 04:28 Anion Gap 2.0 (3-11) L 01/24/19 04:28 BUN 25 mg/dl (7-18) H 01/24/19 04:28 Creatinine 0.99 mg/dl (0.6-1.2) 01/24/19 04:28 Est Cr Clr Drug Dosing 65.6 ml/min 01/24/19 04:28 Est GFR ( Amer) 66.9 01/24/19 04:28 Est GFR (Non-Af Amer) 57.7 01/24/19 04:28 BUN/Creatinine Ratio 25.2 (10-20) H 01/24/19 04:28 Glucose 107 mg/dl (70-99) H 01/24/19 04:28 Calcium 9.7 mg/dl (8.5-10.1) 01/24/19 04:28 Magnesium 1.9 mg/dl (1.8-2.4) 01/24/19 04:28 Troponin I < 0.015 ng/ml (0-0.045) 01/24/19 04:28 NT-Pro-B Natriuret Pep 1175 pg/ml (0-900) H 01/24/19 04:28 Diagnostic Findings Chest x-ray as per my interpretation cardiomegaly, interstitial congestion EKG as per my interpretation : Rate 90, NSR, normal axis, T wave flattening septal leads
--- NOTE | 2019-01-24 06:26 | XRay Report ---
XR chest 1V portable CLINICAL HISTORY: Shortness of breath COMPARISON STUDY: 01/10/2019 FINDINGS: The heart is mildly enlarged. There is evidence for a prior thoracic vertebroplasty. There are postsurgical changes of a right shoulder arthroplasty. There is chronic interstitial thickening s imilar to the prior study. There is stable left basilar atelectasis/scarring. There are no significan t pleural effusions. There is no lobar consolidation.[ IMPRESSION: Mild cardiomegaly with chronic interstitial thickening and stable left basilar atelectasi s/scarring. No evidence of acute parenchymal consolidation Electronically signed by: Fox Garcia M.D. 01/24/2019 6:24 AM
[2019-01-24 06:46] LABS: HCO3 ABG 42 mmol/L (19-24); Oxygen Saturation ABG 95.1 % (90-95); PCO2 ABG 71 mmHg (35-46); PO2 ABG 100 mm/Hg (80-95); pH ABG 7.39 (7.35-7.45)
[2019-01-24 06:47] LABS: Allen Test Pos (Pos)
--- NOTE | 2019-01-24 07:05 | Emergency Department Note ---
Entered by Sarina London acting as a scribe for ED Provider Note Name: Alesia Lee Age: 68 F Arrives Via: EMS Informant: Patient CC: Shortness of breath HPI: The patient is a 68 year old female presenting to the Emergency Department via EMS complaining of worsening shortness of breath starting 1 day ago. The patient reports that she is short of breath. She states that she was experiencing brief episodes of left sided chest pain [employer]. She describes this chest pain as sharp. She notes that she has experienced these symptoms before but does not normally have chest pain when she is short of breath. She adds that she has been experiencing diarrhea. The patient reports that her shortness of breath worsens when she lays flat. She states that she had 1 nebulizer treatment at home [employer] that did not help her symptoms. She notes that she normally uses 4L of supplemental oxygen at home. She adds that Bi-PAP usually helps her shortness of breath but that she does not want to try Bi-PAP at this time. The patient denies fevers, chills, syncope, loss of appetite and recently taking any antibiotics. ROS: See above HPI for pertinent positives & negatives. A total of 10 systems reviewed and were otherwise negative. Past Medical History: HTN, EVONNE, CKD, CHF, GERD, VA, Depression, Asthma, Morbid Obesity, Dyslipidemia. Past Surgical History: Cervical spinal fusion, appendectomy, cholecystectomy, wrist surgery, right shoulder replacement, right hip replacement. Family History: DM. Social History: . Lives with daughter. Feels safe at home. Former smoker. Home Medications: See home medications list. Allergies Adhesive, Latex, Morphine. Physical: Vitals: BP: 190/64, Pulse: 95, Respirations: 20, Temperature: 99.9F, O2 Saturation: 100, Delivery: Nasal Cannula. Exam: GENERAL: Patient is chronically unwell appearing and in moderate distress. EYES: No scleral icterus, unremarkable pupils. ENT: Mucous membranes moist, no nasal congestion. NECK: No masses appreciated, no meningismus, trachea is midline. RESPIRATORY: Clear to auscultation and equal bilaterally. Dyspnic. Mildly tachypnic. Diffusely wet lung sounds throughout. CARDIOVASCULAR: Regular rate and rhythm. No murmurs, rubs, gallops appreciated. GASTROINTESTINAL: Abdomen soft, non-tender, no peritonitis. Bowel sounds positive. No masses appreciated. BACK: No midline tenderness, no CVA tenderness EXTREMITIES: Normal motion all extremities, no cyanosis, no edema. NEUROLOGIC: Alert and oriented, no acute motor or sensory deficits, no focal weakness, cranial nerves grossly intact. SKIN: No rash, no jaundice, no diaphoresis. ED Course: 353: Prior Medical Record, Triage/Nursing Notes, Medications, Allergies reviewed by Me. The patient was evaluated in room B4B, and a complete history and physical examination were performed. 0511: I paged Dr. Sebastián Alex hospitalist at this time. 0512: I reevaluated the patient at this time who is stable and sating well on her normal oxygen. The patient is agreeable to hospitalist evaluation. 0516: I discussed the patients case with Dr. Lowery. He will evaluate the patient for further management. Vital Signs: reviewed and remarkable for HTN Labs: Reviewed and remarkable for elevated co2 and bnp Interventions: [place]ine Lock Imaging: X ray results are stated below per my interpretation: Chest: Indication: SHOB. 1 view: Congestion throughout no overt failure compared to previous no lobar infiltrate/effusion. EKG: Per My Interpretation: indication shob: NSR 88 bpm without ectopy nor ischemia qtc 442. No change from previous Consults: Dr Lowery Blood pressure: Elevated - Referred to Hospitalist Disposition: Hospitalization Differentials: Infectious, Reactive Airway Disease, Pneumonia, Pneumothorax, COPD, CHF, ACS, Pulmonary Embolism, MSK, GI, Dissection, amongst other etiologies entertained. Medical Decision Making: Chornically unwell 68 yr old female arrives for evaluation of SHOB. Sating well without significant other symptoms besides brief episode CP earlier. She does not have significant sympoms on arrival though lungs do sound quite poor which is common for her. CXR with mild congestion and BNP mildly elevated. No overt wheezing appreaciated but she is retaining at her baseline on labs. Reviewed with hospitalist as know her well who will bring in for further management/evaluation. This does not seem consistent with PE/Disection. At this time no ACS appreaciated and I do not feel that it is necessary to anticoagulate at this time. Impression: Shortness of breath, Respiratory failure with hypercapnia. The scribe's documentation has been prepared under my direction and personally reviewed by me in its entirety. I confirm that the note above accurately reflects all work, treatment, procedures, and medical decision making performed by me. Markus Lowe MD Impression & Plan Shortness of breath, Respiratory failure with hypercapnia Past Med/Surg History Social History Preferred Language: Cambodian Communication Ability: Effective Gift Officer Required: No Beliefs That Will Affect Care: None marital status: Current Living Situation: Family Current Living Situation Comment: Lives with her daughter - Noreen Other Information That Helps Us Care for You: No Feels Safe at Home: Yes Safety Concerns: Feels Safe At This Time Smoking Status: Former smoker Tobacco Type: cigarettes Cigarettes Per Day: 2 packs Do You Dip or Chew Tobacco: No Smoking End Date: At age 55 Second Hand Exposure: No Tobacco Cessation Education Requested by Patient: No Hx Alcohol Use: No Hx Substance Use: No Results & Data Vital Signs Vital Signs - 24 hr 01/24/19 03:52 01/24/19 04:01 01/24/19 06:02 Temperature 37.2 C Temperature Source Oral Sepsis Recent Fever Within 48 Hours No Sepsis Action Taken by Nursing No Action Required Pulse Rate 95 H Pulse Rate [Left Finger] 92 H Respiratory Rate 20 Blood Pressure 190/64 H Blood Pressure [Right Arm] 215/81 H Blood Pressure Mean 106 Blood Pressure Mean [Right Arm] 125 Pulse Oximetry 100 98 Oxygen Delivery Method Nasal Cannula Nasal Cannula Nasal Cannula Oxygen Flow Rate 4 5 Home Medications Current Medication List: was personally reviewed by me Laboratory Data Attestation: I reviewed the patient's lab results. Result diagrams: 01/24/19 04:28 01/24/19 04:28 Lab Results 01/24/19 01/24/19 01/24/19 Range/Units 04:28 04:28 04:28 WBC 13.65 H (4.8-10.8) K/uL RBC 2.56 L (4.2-5.4) M/uL Hgb 7.6 L (12.0-16.0) g/dL Hct 25.8 L (37-47) % MCV 100.8 H (80-100) fL MCH 29.7 (25-34) pg MCHC 29.5 L (32-36) g/dL RDW Std Deviation 55.3 H (36.4-46.3) fL RDW Coeff of Arabella 15.2 H (11.5-14.5) % Plt Count 168 (130-400) K/uL MPV 9.0 (7.4-10.4) fL Immature Gran % (Auto) 1.7 % Neut % (Auto) 74.7 % Lymph % (Auto) 15.8 % Amador % (Auto) 5.9 % Eos % (Auto) 1.8 % Baso % (Auto) 0.1 % Immature Gran # (Auto) 0.23 H (0.00-0.02) K/uL Neut # (Auto) 10.20 H (1.4-6.5) K/uL Lymph # (Auto) 2.16 (1.2-3.4) K/uL Amador # (Auto) 0.81 H (0.11-0.59) K/uL Eos # (Auto) 0.24 (0-0.5) K/uL Baso # (Auto) 0.01 (0-0.2) K/uL Basophilic Stippling 1+ Stomatocytes 2+ PT 10.3 (9.0-12.0) Seconds INR 1.0 (0.9-1.1) ABG pH ABG pCO2 ABG pO2 ABG HCO3 ABG O2 Saturation ABG Base Excess Alvaro Test Barometric Pressure Oxygen Given Sodium 143 (136-145) mmol/L Potassium 3.9 (3.5-5.1) mmol/L Chloride 99 (98-107) mmol/L Carbon Dioxide 42 H* (21-32) mmol/L Anion Gap 2.0 L (3-11) BUN 25 H (7-18) mg/dl Creatinine 0.99 (0.6-1.2) mg/dl Est Cr Clr Drug Dosing 65.6 ml/min Est GFR ( Amer) 66.9 Est GFR (Non-Af Amer) 57.7 BUN/Creatinine Ratio 25.2 H (10-20) Glucose 107 H (70-99) mg/dl Calcium 9.7 (8.5-10.1) mg/dl Magnesium 1.9 (1.8-2.4) mg/dl Troponin I < 0.015 (0-0.045) ng/ml NT-Pro-B Natriuret Pep 1175 H (0-900) pg/ml Blood Type Antibody Screen 01/24/19 01/24/19 Range/Units 04:28 05:52 WBC (4.8-10.8) K/uL RBC (4.2-5.4) M/uL Hgb (12.0-16.0) g/dL Hct (37-47) % MCV (80-100) fL MCH (25-34) pg MCHC (32-36) g/dL RDW Std Deviation (36.4-46.3) fL RDW Coeff of Arabella (11.5-14.5) % Plt Count (130-400) K/uL MPV (7.4-10.4) fL Immature Gran % (Auto) % Neut % (Auto) % Lymph % (Auto) % Amador % (Auto) % Eos % (Auto) % Baso % (Auto) % Immature Gran # (Auto) (0.00-0.02) K/uL Neut # (Auto) (1.4-6.5) K/uL Lymph # (Auto) (1.2-3.4) K/uL Amador # (Auto) (0.11-0.59) K/uL Eos # (Auto) (0-0.5) K/uL Baso # (Auto) (0-0.2) K/uL Basophilic Stippling Stomatocytes PT (9.0-12.0) Seconds INR (0.9-1.1) ABG pH Cancelled ABG pCO2 Cancelled ABG pO2 Cancelled ABG HCO3 Cancelled ABG O2 Saturation Cancelled ABG Base Excess Cancelled Alvaro Test Cancelled Barometric Pressure Cancelled Oxygen Given Cancelled Sodium (136-145) mmol/L Potassium (3.5-5.1) mmol/L Chloride (98-107) mmol/L Carbon Dioxide (21-32) mmol/L Anion Gap (3-11) BUN (7-18) mg/dl Creatinine (0.6-1.2) mg/dl Est Cr Clr Drug Dosing ml/min Est GFR ( Amer) Est GFR (Non-Af Amer) BUN/Creatinine Ratio (10-20) Glucose (70-99) mg/dl Calcium (8.5-10.1) mg/dl Magnesium (1.8-2.4) mg/dl Troponin I (0-0.045) ng/ml NT-Pro-B Natriuret Pep (0-900) pg/ml Blood Type A Positive Antibody Screen NEGATIVE Administered Medications Discontinued Medications Furosemide (Lasix) Confirm Administered Dose 40 mg IV .STK-MED ONE Stop: 01/24/19 05:48 Last Admin: 01/24/19 05:51 Dose: 40 mg Documented by: [id number] Magnesium Sulfate/Dextrose (Magnesium Sulfate / D5w) Confirm Administered Dose 1 gm IV .STK-MED ONE Stop: 01/24/19 05:48 Last Admin: 01/24/19 05:50 Dose: 1 gm Documented by: [id number] Metoprolol Succinate (Toprol Xl) Confirm Administered Dose 50 mg .ROUTE .STK-MED ONE Stop: 01/24/19 05:48 Last Admin: 01/24/19 05:51 Dose: 50 mg Documented by: [id number] Imaging Data Attestation: I personally reviewed and interpreted this imaging study as follows: ECG Data Attestation: I personally reviewed and interpreted this ECG as follows: Blood Pressure Blood Pressure Findings: Elevated blood pressure Blood Pressure Disposition: further management by hospitalist Discharge Plan Visit Data Chief Complaint: Shortness of Breath/Dyspnea Stated Complaint: SHORT OF BREATH ED Provider: Markus Lowe Discharge Problem: Shortness of breath, Respiratory failure with hypercapnia Patient Disposition: Being Evaluated by Hospitalist Discharge Instructions Interventions: ED Discharge Assessment Last Done: 01/24/19 06:35 Discharge Problem: Respiratory failure with hypercapnia Qualifiers: Chronicity: chronic Qualified Code(s): J96.12 - Chronic respiratory failure with hypercapnia The scribe's documentation has been prepared under my direction and personally reviewed by me in its entirety. I confirm that the note above accurately reflects all work, treatment, procedures, and medical decision making performed by me.
[2019-01-24] MEDS ORDERED: MAGNESIUM SULFATE / D5W 1 GM/100 ML BAG IV ONE (07:30)
[2019-01-24] MEDS ORDERED: METOPROLOL SUCC 50MG EXT REL TAB PO SCH (07:30)
[2019-01-24] MEDS ORDERED: methylPREDNISolone 40 MG in SYRINGE 0 ML IV ONE (07:30)
[2019-01-24] MEDS ORDERED: FUROSEMIDE 40 MG in SYRINGE 0 ML IV ONE (07:30)
[2019-01-24] MEDS ORDERED: ACETAMINOPHEN 325 MG TAB PO PRN ×2 (07:59→08:19)
[2019-01-24] MEDS ORDERED: NITROGLYCERIN SL 0.4 MG/TAB TAB SL PRN (07:59)
[2019-01-24] MEDS ORDERED: PROMETHAZINE HCL 12.5 MG in SODIUM CHLORIDE 0.9% 50 ML IV PRN (07:59)
[2019-01-24] MEDS ORDERED: SODIUM CHLORIDE 0.9% 250 ML IV PRN (07:59)
[2019-01-24] MEDS ORDERED: XOPENEX/ATROVENT 1.25mg/0.5MG NEB COMBO NEB SCH (08:00)
[2019-01-24] MEDS: LOSARTAN POTASSIUM 50 MG TAB PO SCH (08:18)
[2019-01-24] MEDS: LEVALBUTEROL 1.25MG/0.5ML NEB INH SCH ×3 (08:39→19:38)
[2019-01-24] MEDS: IPRATROPIUM BROMIDE NEB SOLN 0.02% 2.5 ML VIAL INH SCH ×3 (08:39→19:38)
[2019-01-24] MEDS: LACTOBACILLUS ACIDOPHILUS (FLORANEX) TAB PO SCH ×3 (08:48→20:42)
[2019-01-24] MEDS: GABAPENTIN 600 MG TAB PO SCH ×3 (08:48→20:42)
[2019-01-24] MEDS: CHOLECALCIFEROL 1,000 UNITS TAB PO SCH (08:49)
[2019-01-24] MEDS: ASPIRIN 81 MG ECTAB PO SCH (08:49)
[2019-01-24] MEDS: ALLOPURINOL 300 MG TAB PO SCH (08:49)
[2019-01-24] MEDS: LEVOTHYROXINE SODIUM 88 MCG TABLET PO SCH (08:49)
[2019-01-24] MEDS: SUCRALFATE 1 GM TAB PO SCH ×4 (09:28→20:41)
[2019-01-24] MEDS: PROPAFENONE HCL 150 MG TABLET PO SCH ×3 (09:29→20:47)
[2019-01-24] MEDS: PANTOprazole 40 MG TAB PO SCH ×2 (09:29→20:41)
[2019-01-24] MEDS: ROFLUMILAST 500 MCG TAB PO SCH (09:29)
[2019-01-24] MEDS: POTASSIUM CHLORIDE 20 MEQ TABCR PO SCH ×2 (09:29→20:42)
[2019-01-24] MEDS: SERTRALINE HCL 50 MG TABLET PO SCH (09:30)
--- NOTE | 2019-01-24 10:15 | Cardiology Consultation ---
Date of Consultation January 24, 2019 Assessment & Plan (1) Acute on chronic respiratory failure with hypoxia and hypercapnia: (2) Acute on chronic right heart failure: (3) Anemia: (4) Heme positive stool: (5) Paroxysmal a-fib: Patient admitted with acute on chronic hypercapnic and hypoxic respiratory failure with worsening edema and possible weight gain. Symptoms improved with diuretic therapy and IV steroids. Review of echocardiogram demonstrates normal left ventricular systolic and diastolic function without significant valvular pathology. Exacerbation of right heart failure likely precluded by recent pneumonia in the setting of severe underlying oxygen dependent COPD. Continue current medical therapies with IV corticosteroids and IV diuretic therapy cautiously due to history of hypercapnia. Repeat basic metabolic panel daily. Monitor for signs/symptoms of worsening CO2 retention. Agree with transfusion to maintain hemoglobin greater than 8.0. Monitor for signs/symptoms of GI blood loss with recent EGD evidence of gastric ulceration 12/30/18. In regard to patient's history of paroxysmal atrial fibrillation - medical records reviewed. It appears she has been treated with 1C antiarrhythmic therapy, propafenone, for many years. No documented history of ischemic heart disease. No evidence of ischemia per ECG on admission with negative troponin. Apparently, treated with amiodarone in the past. Continue metoprolol, and propafenone at this time for rhythm control. I would not recommend anticoagulation due to anemia, history of GI blood loss, and recent EGD evidence of peptic ulcer disease. Thank you for allowing to participate in the care of your patient. Cardiology will continue to follow during hospitalization. History of Present Illness Reason for Consultation: Shortness of breath, congestive heart failure Requesting Physician: Dr. Casper Attending Physician: Bautista Casper MD History of Present Illness 68-year-old female presented emergency department with progressive shortness of breath and lower extremity edema. Patient carries a history of severe oxygen dependent COPD with chronic hypercapnia. Recently admitted earlier this month with community-acquired pneumonia. Admitted in late December with symptomatic anemia. EGD at that time demonstrated a nonbleeding gastric ulcer. Hemoglobin of 7.6 noted on admission. She is scheduled to receive 1 unit of packed red blood cells today. Notes mild chest discomfort on admission which has resolved. No ischemic ECG changes. Preliminary review of resting 2D transthoracic echocardiogram demonstrates normal left ventricular systolic function, normal diastolic function, mildly dilated right ventricle with normal systolic function and mild pulmonary hypertension. Currently, patient resting comfortably in bedside chair. Family present at bedside. Notes cough and wheezing which has persisted since her recent admission for pneumonia. Denies fever or chills. Unaware of lower extremity edema. Denies orthopnea or paroxysmal nocturnal dyspnea. No palpitations, lightheadedness, dizziness, syncope, near syncope. No dysrhythmias on telemetry since admission. Allergies Allergy/AdvReac Type Severity Reaction Status Date / Time adhesive Allergy Severe RED RASH Verified 01/24/19 04:15 latex AdvReac Mild TAPE-SORE Verified 01/24/19 04:15 morphine AdvReac Mild DELUSIONS Verified 01/24/19 04:15 Home Medications Home Medications Medication Instructions Recorded Confirmed Type Breo Ellipta 1 inh INHALATION DAILY 03/12/18 01/24/19 History Daliresp 500 mcg PO DAILY 03/12/18 01/24/19 History Lactinex 1 tab PO TID 03/12/18 01/24/19 History allopurinol 300 mg PO DAILY 03/12/18 01/24/19 History aspirin [Aspir-81] 81 mg PO DAILY 03/12/18 01/24/19 History atorvastatin 20 mg PO QPM 03/12/18 01/24/19 History bumetanide 1 mg PO BID 03/12/18 01/24/19 History cholecalciferol (vitamin D3) 2,000 unit PO QAM 03/12/18 01/24/19 History [Vitamin D3] gabapentin 600 mg PO TID 03/12/18 01/24/19 History levothyroxine 88 mcg PO DAILYBB 03/12/18 01/24/19 History losartan 50 mg PO DAILY 03/12/18 01/24/19 History metolazone 2.5 mg PO MOFR 03/12/18 01/24/19 History metoprolol succinate 50 mg PO DAILY 03/12/18 01/24/19 History multivitamin 1 tab PO DAILY 03/12/18 01/24/19 History potassium chloride 20 meq PO Q OTHER DAY 03/12/18 01/24/19 History propafenone 150 mg PO Q8H 03/12/18 01/24/19 History ranitidine HCl 150 mg PO BID 03/12/18 01/24/19 History sertraline [Zoloft] 25 mg PO DAILY 03/12/18 01/24/19 History acetaminophen [Tylenol] 650 mg PO Q4 PRN 08/07/18 01/24/19 History albuterol sulfate 2.5 mg INHALATION Q6 PRN 08/07/18 01/24/19 History pantoprazole 40 mg PO BID 30 Days #60 tab 12/31/18 01/24/19 Rx sucralfate 1 gm PO ACHS 28 Days #28 tab 12/31/18 01/24/19 Rx prednisone 10 mg PO UD #20 tab 01/12/19 01/24/19 Rx Patient History Medical History Chronic respiratory failure with hypoxia, on home O2 therapy (Chronic) Anemia (Chronic) Chronic anemia (Chronic) Diarrhea DVT prophylaxis Diastolic CHF, chronic (Chronic) Acute bronchitis COPD exacerbation GERD (gastroesophageal reflux disease) (Chronic) Depression (Chronic) Myocardial infarction (Chronic) "per patient, details unknown" COPD (chronic obstructive pulmonary disease) (Chronic) Paroxysmal a-fib (Chronic) HTN (hypertension) (Chronic) Dyslipidemia (Chronic) EVONNE (iron deficiency anemia) (Chronic) CKD (chronic kidney disease), stage IV (Chronic) Asthma (Chronic) Lumbar spinal stenosis (Chronic) Morbid obesity (Chronic) Obesity hypoventilation syndrome (Chronic) Chronic respiratory failure (Chronic) Surgical History S/P cervical spinal fusion (Chronic) History of appendectomy (Chronic) Hx of cholecystectomy (Chronic) S/P wrist surgery (Chronic) 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) Family History Father Trauma Mother Diabetes Cerebral aneurysm Daughter Bipolar 1 disorder Social History Preferred Language: Azeri Communication Ability: Effective Commissary Helper Required: No Beliefs That Will Affect Care: None marital status: Current Living Situation: Family Current Living Situation Comment: Lives with her daughter - Noreen Other Information That Helps Us Care for You: No Feels Safe at Home: Yes Safety Concerns: Feels Safe At This Time Smoking Status: Former smoker Tobacco Type: cigarettes Cigarettes Per Day: 2 packs Do You Dip or Chew Tobacco: No Smoking End Date: At age 55 Second Hand Exposure: No Tobacco Cessation Education Requested by Patient: No Hx Alcohol Use: No Hx Substance Use: No Review of Systems Review of Systems: All systems reviewed & are unremarkable except as noted in HPI & below Physical Exam Physical Exam: General: NAD, AAO x3, well nourished. Chronically ill. Obese. HEENT: Mild perioral cyanosis. Normocephalic. Atraumatic. Conjunctiva pink, no scleral icterus. Neck: No carotid bruits, the carotid upstrokes are brisk. No JVD. No HJR Heart: Regular normal S-1 and S-2 no S-3 or S-4 gallop. No murmurs or rub appreciated. PMI is not displaced. No RV heave. Lungs: + Bilateral expiratory wheeze, scattered rhonchi. Abdomen: Normal bowel sounds. Soft. Nontender. No masses or organomegaly. No abdominal bruits. Extremities: 1+ bi lateral pretibial edema with stasis changes. Pulses: radial=2/4, Dorsalis pedis =2/4. Neuro: Cranial nerves grossly intact. No focal motor deficit. Results & Data Vital Signs (Past 12 Hours) Vital Signs Temp Pulse Pulse Resp BP BP Pulse Ox 01/24/19 08:42 85 24 97 01/24/19 08:00 87 01/24/19 06:45 37.0 C 90 18 167/70 H 96 01/24/19 06:35 98 01/24/19 06:02 92 H 215/81 H 98 01/24/19 03:52 37.2 C 95 H 20 190/64 H 100 Laboratory Results Laboratory Results - last 24 hr 01/24/19 01/24/19 01/24/19 04:28 04:28 04:28 WBC 13.65 H RBC 2.56 L Hgb 7.6 L Hct 25.8 L MCV 100.8 H MCH 29.7 MCHC 29.5 L RDW Std Deviation 55.3 H RDW Coeff of Arabella 15.2 H Plt Count 168 MPV 9.0 Immature Gran % (Auto) 1.7 Neut % (Auto) 74.7 Lymph % (Auto) 15.8 [place] % (Auto) 5.9 Eos % (Auto) 1.8 Baso % (Auto) 0.1 Immature Gran # (Auto) 0.23 H Neut # (Auto) 10.20 H Lymph # (Auto) 2.16 [place] # (Auto) 0.81 H Eos # (Auto) 0.24 Baso # (Auto) 0.01 Basophilic Stippling 1+ Stomatocytes 2+ PT 10.3 INR 1.0 ABG pH ABG pCO2 ABG pO2 ABG HCO3 ABG O2 Saturation ABG Base Excess Alvaro Test Barometric Pressure Oxygen Given Sodium 143 Potassium 3.9 Chloride 99 Carbon Dioxide 42 H* Anion Gap 2.0 L BUN 25 H Creatinine 0.99 Est Cr Clr Drug Dosing 65.6 Est GFR ( Amer) 66.9 Est GFR (Non-Af Amer) 57.7 BUN/Creatinine Ratio 25.2 H Glucose 107 H Calcium 9.7 Magnesium 1.9 Troponin I < 0.015 NT-Pro-B Natriuret Pep 1175 H Blood Type Antibody Screen Crossmatch 01/24/19 01/24/19 01/24/19 04:28 05:52 06:38 WBC RBC Hgb Hct MCV MCH MCHC RDW Std Deviation RDW Coeff of Arabella Plt Count MPV Immature Gran % (Auto) Neut % (Auto) Lymph % (Auto) [place] % (Auto) Eos % (Auto) Baso % (Auto) Immature Gran # (Auto) Neut # (Auto) Lymph # (Auto) [place] # (Auto) Eos # (Auto) Baso # (Auto) Basophilic Stippling Stomatocytes PT INR ABG pH Cancelled 7.39 ABG pCO2 Cancelled 71 H ABG pO2 Cancelled 100 H ABG HCO3 Cancelled 42 H ABG O2 Saturation Cancelled 95.1 H ABG Base Excess Cancelled 15.1 H Alvaro Test Cancelled Pos Barometric Pressure Cancelled 734.1 Oxygen Given Cancelled 4L Sodium Potassium Chloride Carbon Dioxide Anion Gap BUN Creatinine Est Cr Clr Drug Dosing Est GFR ( Amer) Est GFR (Non-Af Amer) BUN/Creatinine Ratio Glucose Calcium Magnesium Troponin I NT-Pro-B Natriuret Pep Blood Type A Positive Antibody Screen NEGATIVE Crossmatch See Detail
[2019-01-24] MEDS: TRAMADOL HCL 50 MG TABLET PO PRN (12:42)
[2019-01-24] MEDS: ACETAMINOPHEN 1,000 MG/100 ML VIAL IV PRN ×2 (13:30→23:11)
[2019-01-24 14:21] LABS: Hematocrit (blood only) 27.7 % (37-47); Hemoglobin 8.5 g/dL (12.0-16.0)
--- NOTE | 2019-01-24 14:23 | Hospitalist Progress Note ---
Date of Service January 24, 2019 Assessment & Plan (1) SOB (shortness of breath): Acute on chronic respiratory failure with hypoxia, hypercapnia Likely multifactorial: Acute on chronic right heart failure, COPD exacerbation, Symptomatic anemia, H/O OHS on CPAP Chronic oxygen dependency-4 L at baseline Hypertensive urgency --On presentation Patient presented with worsening shortness of breath, weight gain of about 10 pounds since last admission, worsening leg edema, has Chronic anemia, worsening cough with yellowish expectoration CXR:Mild cardiomegaly with chronic interstitial thickening and stable left basilar atelectasis/scarring. No evidence of acute parenchymal consolidation ECHO: EF 60 to 65%, LV wall motion is normal, Mild TR Transfuse 1 unit PRBC to keep hemoglobin greater than 8.0 Continue IV diuretics, Solumedrol, Doxycycline Monitor H&H, I's and O's, daily weight Consider fluid restriction Appreciate Cardiology input Metabolic Alkalosis Likely secondary to COPD Cautious use of diuretics to prevent contraction alkalosis Symptomatic anemia: Hb Baseline ~8.0 H/O peptic ulcer disease--last EGD in December 2018 Also has history of iron deficiency anemia, CKD S/P 1 unit PRBCs No acute bleeding issues Monitor H&H Transfuse PRBC as needed to keep hemoglobin greater than 8.0 Paroxysmal atrial fibrillation Currently in sinus Continue propafenone Is on Aspirin Not a candidate for anticoagulation due to H/O GI bleed CKD IV: Baseline CR ~ 1.5 Cr at baseline Monitor renal function Avoid nephrotoxic agents as able Peptic Ulcer disease Continue Carafate, PPI May need to hold aspirin if hemoglobin continues to drop Past tobacco abuse Quit smoking many years ago HTN: Blood pressure variable Continue losartan, metoprolol HLP: Continue statin DVT Px: SCDs RE H/O GI bleed Code Status Full code Subjective Patient is seen and examined at bedside Complains of shortness of breath Also complains of cough with yellowish expectoration Denies any acute bleeding issues Offers no other complaints Discussed with patient's daughter in detail Review of Systems Review of Systems: All systems reviewed & are unremarkable except as noted in HPI & below Physical Exam Physical Exam: Physical Exam: Vitals signs as noted above General Appearance:Chronic ill appearing, no apparent distress Head: normocephalic, Atraumatic Eyes: normal inspection, EOMI Neck: supple, Trachea midline Respiratory/Chest: Decreased breath sounds, + Rhonchi and wheezes Cardiovascular: S1, S2, No murmur Abdomen/GI:Soft, Non tender, Bowel sounds present Extremities/Musculoskelatal:normal inspection, 1-2 + B/L LE edema Neurologic/Psych:AAOX3, grossly no focal neurological deficits Skin: normal color, warm Results & Data Vital Signs (Past 12 Hours) Vital Signs Temp Pulse Pulse Resp BP BP Pulse Ox 01/24/19 14:04 83 18 97 01/24/19 13:03 37.0 C 87 20 118/68 99 01/24/19 11:56 36.9 C 75 20 126/58 L 99 01/24/19 11:27 36.9 C 74 18 118/71 99 01/24/19 11:15 37.1 C 74 18 119/75 99 01/24/19 11:00 36.7 C 73 18 119/69 99 01/24/19 10:42 37.2 C 76 20 104/49 L 98 01/24/19 10:24 36.8 C 77 20 97/56 L 97 01/24/19 08:42 85 24 97 01/24/19 08:00 87 01/24/19 06:45 37.0 C 90 18 167/70 H 96 01/24/19 06:35 98 01/24/19 06:02 92 H 215/81 H 98 01/24/19 03:52 37.2 C 95 H 20 190/64 H 100
[2019-01-24] MEDS ORDERED: GLUCOSE 40% GEL 15 GM TUBE PO PRN (14:29)
[2019-01-24] MEDS ORDERED: CARBOHYDRATES FOR HYPOGLYCEMIA PO PRN (14:29)
[2019-01-24] MEDS ORDERED: GLUCAGON FOR INJ 1 MG VIAL SQ PRN (14:29)
[2019-01-24] MEDS ORDERED: GLUCOSE 10 TABS/TUBE PO PRN (14:29)
[2019-01-24] MEDS ORDERED: DEXTROSE 50% 50 ML SYRINGE IV PRN (14:29)
[2019-01-24] MEDS: DOXYCYCLINE HYCLATE 100 MG CAP PO SCH ×2 (15:40→20:41)
[2019-01-24] MEDS ORDERED: FUROSEMIDE 40 MG/4 ML VIAL IV SCH (17:00)
[2019-01-24] MEDS: FUROSEMIDE 40 MG in SYRINGE 0 ML IV SCH (17:44)
[2019-01-24] MEDS: INSULIN ASPART 100 UNITS/ML 3 ML PEN SC SCH ×2 (17:47→20:42)
[2019-01-24] MEDS: ATORVASTATIN 20 MG TAB PO SCH (20:41)
[2019-01-25] MEDS: TRAMADOL HCL 50 MG TABLET PO PRN (01:58)
[2019-01-25] MEDS: IPRATROPIUM BROMIDE NEB SOLN 0.02% 2.5 ML VIAL INH SCH ×4 (02:14→19:05)
[2019-01-25] MEDS: LEVALBUTEROL 1.25MG/0.5ML NEB INH SCH ×4 (02:15→19:05)
[2019-01-25] MEDS: LEVOTHYROXINE SODIUM 88 MCG TABLET PO SCH (05:52)
[2019-01-25] MEDS: PROPAFENONE HCL 150 MG TABLET PO SCH ×3 (05:52→21:12)
[2019-01-25 07:25] LABS: Basophils # (auto) 0.02 K/uL (0-0.2); Basophils % (auto) 0.1 %; Eosinophils # (auto) 0.12 K/uL (0-0.5); Eosinophils % (auto) 0.9 %; Hemoglobin 8.1 g/dL (12.0-16.0); Immature Granulocytes % (auto) 0.7 %; Lymphocytes % (auto) 13.9 %; Mean Corpuscular Hgb Conc 31.2 g/dL (32-36); Mean Corpuscular Volume 97.4 fL (80-100); Mean Platelet Volume 9.3 fL (7.4-10.4); Monocytes # (auto) 1.09 K/uL (0.11-0.59); Neutrophils # (auto) 10.42 K/uL (1.4-6.5); Neutrophils % (auto) 76.4 %; Platelet Count 165 K/uL (130-400); RDW Standard Deviation 56.5 fL (36.4-46.3); Red Blood Count 2.67 M/uL (4.2-5.4); White Blood Count 13.65 K/uL (4.8-10.8)
[2019-01-25] MEDS ORDERED: predniSONE 10 MG TABLET PO SCH (08:00)
[2019-01-25 08:14] LABS: BUN Creatinine Ratio 27.4 (10-20); Calcium 9.6 mg/dl (8.5-10.1); Creatinine Clr Calc Pharmacy 41.6 ml/min; Est GFR (African American) 41.2; Est GFR (Non-African American) 35.5
[2019-01-25] MEDS: LOSARTAN POTASSIUM 50 MG TAB PO SCH (08:15)
[2019-01-25] MEDS: POTASSIUM CHLORIDE 20 MEQ TABCR PO SCH ×2 (08:15→21:12)
[2019-01-25] MEDS: CHOLECALCIFEROL 1,000 UNITS TAB PO SCH (08:15)
[2019-01-25] MEDS: METOPROLOL SUCC 50MG EXT REL TAB PO SCH (08:15)
[2019-01-25] MEDS: GABAPENTIN 600 MG TAB PO SCH ×3 (08:15→21:13)
[2019-01-25] MEDS: DOXYCYCLINE HYCLATE 100 MG CAP PO SCH ×2 (08:16→21:12)
[2019-01-25] MEDS: PANTOprazole 40 MG TAB PO SCH ×2 (08:16→21:12)
[2019-01-25] MEDS: LACTOBACILLUS ACIDOPHILUS (FLORANEX) TAB PO SCH ×3 (08:16→21:12)
[2019-01-25] MEDS: SUCRALFATE 1 GM TAB PO SCH ×4 (08:17→21:12)
[2019-01-25] MEDS: FUROSEMIDE 40 MG in SYRINGE 0 ML IV SCH ×2 (08:18→17:28)
[2019-01-25] MEDS: SERTRALINE HCL 50 MG TABLET PO SCH (08:18)
[2019-01-25] MEDS: methylPREDNISolone 40 MG in SYRINGE 0 ML IV SCH (08:18)
[2019-01-25] MEDS: ROFLUMILAST 500 MCG TAB PO SCH (08:19)
[2019-01-25] MEDS: ALLOPURINOL 300 MG TAB PO SCH (08:19)
[2019-01-25] MEDS: ASPIRIN 81 MG ECTAB PO SCH (08:19)
[2019-01-25] MEDS: INSULIN ASPART 100 UNITS/ML 3 ML PEN SC SCH ×4 (08:38→21:13)
[2019-01-25 08:45] LABS: Estimated Average Glucose 120 mg/dl
--- NOTE | 2019-01-25 10:39 | Cardiology Progress Note ---
Date of Service January 25, 2019 Assessment & Plan (1) Acute on chronic respiratory failure with hypoxia and hypercapnia: (2) Acute on chronic right heart failure: (3) Anemia: (4) Heme positive stool: (5) Paroxysmal a-fib: Respiratory status improving with medical therapies including cortic osteroids, nebulizer treatment, intravenous diuretic therapy. Creatinine trending up however remains near baseline. Bicarbonate level also trending upward. Continue IV diuretic therapy cautiously with repeat basic metabolic panel in a.m. Discussed with nursing the importance of assessing bedside weights as well as monitoring/recording strict I's/O's to guide medical care. Likely transition to oral diuretic therapy in the next 24 to 48 hours. Monitor hemoglobin daily. Transfuse to maintain hemoglobin greater than 8.0. Continue metoprolol and propafenone for rate/rhythm control. Would not recommend anticoagulation due to anemia, history of GI blood loss, and recent EGD evidence of peptic ulcer disease. Blood pressure remains labile. Continue current medications. (6) HTN (hypertension): Subjective Patient seen and examined at the bedside. Shortness of breath improving. Cough with minimal sputum production noted. Denies orthopnea or PND. Lower extremity edema improving. Urine output not consistently measured. Weight unchanged. Elevated blood pressure noted this a.m. Telemetry reviewed. Sinus rhythm with occasional PVCs. No evidence of sustained dysrhythmia. Review of Systems Review of Systems: All systems reviewed & are unremarkable except as noted in HPI & below Physical Exam Physical Exam: General: NAD, AAO x3, well nourished. Chronically ill. Obese. HEENT: Mild perioral cyanosis. Normocephalic. Atraumatic. Conjunctiva pink, no scleral icterus. Neck: No carotid bruits, the carotid upstrokes are brisk. No JVD. No HJR Heart: Regular normal S-1 and S-2 no S-3 or S-4 gallop. No murmurs or rub appreciated. PMI is not displaced. No RV heave. Lungs: Crackles at the left base with left-sided expiratory wheezing. Scattered rhonchi bilaterally. Abdomen: Normal bowel sounds. Soft. Nontender. No masses or organomegaly. No abdominal bruits. Extremities: 1+ bilateral pretibial edema with stasis changes. Pulses: radial=2/4, Dorsalis pedis =2/4. Neuro: Cranial nerves grossly intact. No focal motor deficit. Results & Data Vital Signs (Past 12 Hours) Vital Signs Temp Pulse Pulse Resp BP Pulse Ox 01/25/19 07:55 36.7 C 93 H 22 186/89 H 95 01/25/19 07:10 73 18 98 01/25/19 04:36 36.6 C 68 19 139/69 98 01/25/19 00:00 75 01/24/19 23:16 36.7 C 76 19 175/71 H 96 Laboratory Results Laboratory Results - last 24 hr 01/24/19 01/24/19 01/24/19 04:28 13:59 14:22 WBC RBC Hgb 8.5 L Hct 27.7 L MCV MCH MCHC RDW Std Deviation RDW Coeff of Arabella Plt Count MPV Immature Gran % (Auto) Neut % (Auto) Lymph % (Auto) [place] % (Auto) Eos % (Auto) Baso % (Auto) Immature Gran # (Auto) Neut # (Auto) Lymph # (Auto) [place] # (Auto) Eos # (Auto) Baso # (Auto) Sodium Potassium Chloride Carbon Dioxide Anion Gap BUN Creatinine Est Cr Clr Drug Dosing Est GFR ( Amer) Est GFR (Non-Af Amer) BUN/Creatinine Ratio Glucose POC Glucose 274 H Estimat Average Glucose Hemoglobin A1c Calcium Crossmatch See Detail 01/24/19 01/24/19 01/25/19 16:30 20:24 06:45 WBC 13.65 H RBC 2.67 L Hgb 8.1 L Hct 26.0 L MCV 97.4 MCH 30.3 MCHC 31.2 L RDW Std Deviation 56.5 H RDW Coeff of Arabella 16.0 H Plt Count 165 MPV 9.3 Immature Gran % (Auto) 0.7 Neut % (Auto) 76.4 Lymph % (Auto) 13.9 [place] % (Auto) 8.0 Eos % (Auto) 0.9 Baso % (Auto) 0.1 Immature Gran # (Auto) 0.10 H Neut # (Auto) 10.42 H Lymph # (Auto) 1.90 [place] # (Auto) 1.09 H Eos # (Auto) 0.12 Baso # (Auto) 0.02 Sodium Potassium Chloride Carbon Dioxide Anion Gap BUN Creatinine Est Cr Clr Drug Dosing Est GFR ( Amer) Est GFR (Non-Af Amer) BUN/Creatinine Ratio Glucose POC Glucose 196 H 168 H Estimat Average Glucose Hemoglobin A1c Calcium Crossmatch 01/25/19 01/25/19 01/25/19 06:45 06:45 08:20 WBC RBC Hgb Hct MCV MCH MCHC RDW Std Deviation RDW Coeff of Arabella Plt Count MPV Immature Gran % (Auto) Neut % (Auto) Lymph % (Auto) [place] % (Auto) Eos % (Auto) Baso % (Auto) Immature Gran # (Auto) Neut # (Auto) Lymph # (Auto) [place] # (Auto) Eos # (Auto) Baso # (Auto) Sodium 139 Potassium 4.0 Chloride 95 L Carbon Dioxide 43 H* Anion Gap 2.0 L BUN 41 H D Creatinine 1.48 H D Est Cr Clr Drug Dosing 41.6 Est GFR ( Amer) 41.2 Est GFR (Non-Af Amer) 35.5 BUN/Creatinine Ratio 27.4 H Glucose 100 H POC Glucose 140 H Estimat Average Glucose 120 Hemoglobin A1c 5.8 H Calcium 9.6 Crossmatch
--- NOTE | 2019-01-25 16:06 | Hospitalist Progress Note ---
Date of Service January 25, 2019 Assessment & Plan (1) SOB (shortness of breath): Acute on chronic respiratory failure with hypoxia, hypercapnia Likely multifactorial: Acute on chronic diastolic RV CHF, COPD exacerbation, Symptomatic anemia, H/O OHS on CPAP Chronic oxygen dependency-4 L at baseline Hypertensive urgency --On presentation Patient presented with worsening shortness of breath, weight gain of about 10 pounds since last admission, worsening leg edema, has Chronic anemia, worsening cough with yellowish expectoration CXR:Mild cardiomegaly with chronic interstitial thickening and stable left basilar atelectasis/scarring. No evidence of acute parenchymal consolidation ECHO: EF 60 to 65%, LV wall motion is normal, Mild TR Transfuse 1 unit PRBC to keep hemoglobin greater than 8.0 Continue IV diuretics, Solu medrol, Doxycycline Monitor H&H, I's and O's, daily weight Continue fluid restriction Appreciate Cardiology input Clinically slowly improving Close monitoring of hemoglobin, BMP Likely transition to p.o. diuretics tomorrow Hb stable Metabolic Alkalosis Likely secondary to COPD, diuretics Monitor daily BMP Symptomatic anemia: Hb Baseline ~8.0 H/O peptic ulcer disease--last EGD in December 2018 Also has history of iron deficiency anemia, CKD S/P 1 unit PRBCs No acute bleeding issues Monitor H&H Transfuse PRBC as needed to keep hemoglobin greater than 8.0 Hb 8.1 Paroxysmal atrial fibrillation Currently in sinus Continue propafenone Is on Aspirin Not a candidate for anticoagulation due to H/O GI bleed CKD IV: Baseline CR ~ 1.5 Cr at baseline Monitor renal function Avoid nephrotoxic agents as able Peptic Ulcer disease Continue Carafate, PPI May need to hold aspirin if hemoglobin continues to drop Past tobacco abuse Quit smoking many years ago HTN: Blood pressure variable Continue losartan, metoprolol HLP: Continue statin DVT Px: SCDs RE H/O GI bleed, Anemia Code Status Full code Subjective Patient is seen and examined at bedside Patient feels better today Less cough and SOB Leg swelling better Denies any bleeding issues Offers no other complaints Review of Systems Review of Systems: All systems reviewed & are unremarkable except as noted in HPI & below Physical Exam Physical Exam: Physical Exam: Vitals signs as noted above General Appearance:Chronic ill appearing, no apparent distress Head: normocephalic, Atraumatic Eyes: normal inspection, EOMI Neck: supple, Trachea midline Respiratory/Chest: Decreased breath sounds, minimal crackles and wheezes Cardiovascular: S1, S2, No murmur Abdomen/GI:Soft, Non tender, Bowel sounds present Extremities/Musculoskelatal:normal inspection, 1-2 + B/L LE edema Neurologic/Psych:AAOX3, grossly no focal neurological deficits Skin: normal color, warm Results & Data Vital Signs (Past 12 Hours) Vital Signs Temp Pulse Resp BP Pulse Ox 01/25/19 14:14 74 18 99 01/25/19 10:54 36.3 C L 72 18 156/73 H 99 01/25/19 07:55 36.7 C 93 H 22 186/89 H 95 01/25/19 07:10 73 18 98 01/25/19 04:36 36.6 C 68 19 139/69 98 Laboratory Results Short CBC 01/25/19 Range/Units 06:45 WBC 13.65 H (4.8-10.8) K/uL Hgb 8.1 L (12.0-16.0) g/dL Hct 26.0 L (37-47) % Plt Count 165 (130-400) K/uL BMP 01/25/19 06:45 Sodium 139 Potassium 4.0 Chloride 95 L Carbon Dioxide 43 H* BUN 41 H D Creatinine 1.48 H D Glucose 100 H Calcium 9.6
[2019-01-25] MEDS: ATORVASTATIN 20 MG TAB PO SCH (21:12)
[2019-01-26] MEDS: LEVALBUTEROL 1.25MG/0.5ML NEB INH SCH ×4 (02:08→19:20)
[2019-01-26] MEDS: IPRATROPIUM BROMIDE NEB SOLN 0.02% 2.5 ML VIAL INH SCH ×4 (02:08→19:20)
[2019-01-26] MEDS: PROPAFENONE HCL 150 MG TABLET PO SCH ×3 (05:50→20:10)
[2019-01-26] MEDS: LEVOTHYROXINE SODIUM 88 MCG TABLET PO SCH (05:51)
[2019-01-26 06:36] LABS: Hemoglobin 8.7 g/dL (12.0-16.0)
[2019-01-26 07:28] LABS: BUN Creatinine Ratio 36.2 (10-20); Calcium 9.7 mg/dl (8.5-10.1); Creatinine Clr Calc Pharmacy 45.2 ml/min; Est GFR (African American) 45.6; Est GFR (Non-African American) 39.3
[2019-01-26] MEDS: PANTOprazole 40 MG TAB PO SCH ×2 (08:02→20:12)
[2019-01-26] MEDS: METOPROLOL SUCC 50MG EXT REL TAB PO SCH (08:02)
[2019-01-26] MEDS: LOSARTAN POTASSIUM 50 MG TAB PO SCH (08:02)
[2019-01-26] MEDS: ASPIRIN 81 MG ECTAB PO SCH (08:03)
[2019-01-26] MEDS: LACTOBACILLUS ACIDOPHILUS (FLORANEX) TAB PO SCH ×3 (08:03→20:09)
[2019-01-26] MEDS: POTASSIUM CHLORIDE 20 MEQ TABCR PO SCH ×2 (08:03→20:11)
[2019-01-26] MEDS: ALLOPURINOL 300 MG TAB PO SCH (08:03)
[2019-01-26] MEDS: DOXYCYCLINE HYCLATE 100 MG CAP PO SCH ×2 (08:03→20:10)
[2019-01-26] MEDS: CHOLECALCIFEROL 1,000 UNITS TAB PO SCH (08:03)
[2019-01-26] MEDS: GABAPENTIN 600 MG TAB PO SCH ×3 (08:03→20:12)
[2019-01-26] MEDS: SERTRALINE HCL 50 MG TABLET PO SCH (08:04)
[2019-01-26] MEDS: SUCRALFATE 1 GM TAB PO SCH ×4 (08:04→20:13)
[2019-01-26] MEDS: ROFLUMILAST 500 MCG TAB PO SCH (08:04)
[2019-01-26] MEDS: methylPREDNISolone 40 MG in SYRINGE 0 ML IV SCH (08:06)
[2019-01-26] MEDS: INSULIN ASPART 100 UNITS/ML 3 ML PEN SC SCH ×4 (08:08→21:35)
--- NOTE | 2019-01-26 11:46 | Cardiology Progress Note ---
Date of Service January 26, 2019 Assessment & Plan (1) Acute on chronic respiratory failure with hypoxia and hypercapnia: (2) Acute on chronic right heart failure: (3) Anemia: (4) Heme positive stool: (5) Paroxysmal a-fib: Respiratory status improving with medical therapies including cortic osteroids, nebulizer treatment, intravenous diuretic therapy. Discontinue IV diuretic therapy today. Transition to oral Bumex 1 mg twice daily. Reassess volume status tomorrow to determine whether dose of Zaroxolyn is necessary. Repeat BMP in a.m. Monitor daily weights and fluid balance. Monitor hemoglobin daily. Transfuse to maintain hemoglobin greater than 8.0. Continue metoprolol and propafenone for rate/rhythm control. Would not recommend anticoagulation due to anemia, history of GI blood loss, and recent EGD evidence of peptic ulcer disease. Blood pressure remains labile with fair control. Continue current medications. (6) HTN (hypertension): Subjective Patient seen and examined at the bedside. Edema improved. Weight not assessed today. Creatinine remains stable. BUN trending upward. Dyspnea improving. Denies orthopnea or PND. Offers no other concerns/complaints at this time. Review of Systems Review of Systems: All systems reviewed & are unremarkable except as noted in HPI & below Physical Exam Physical Exam: General: NAD, AAO x3, well nourished. Chronically ill. Obese. HEENT: Mild perioral cyanosis. Normocephalic. Atraumatic. Conjunctiva pink, no scleral icterus. Neck: No carotid bruits, the carotid upstrokes are brisk. No JVD. No HJR Heart: Regular normal S-1 and S-2 no S-3 or S-4 gallop. No murmurs or rub appreciated. PMI is not displaced. No RV heave. Lungs: Crackles at the left base with left-sided expiratory wheezing. Scattered rhonchi bilaterally. Abdomen: Normal bowel sounds. Soft. Nontender. No masses or organomegaly. No abdominal bruits. Extremities: 1+ bilateral pretibial edema with stasis changes. Pulses: radial=2/4, Dorsalis pedis =2/4. Neuro: Cranial nerves grossly intact. No focal motor deficit. Results & Data Vital Signs (Past 12 Hours) Vital Signs Temp Pulse Resp BP Pulse Ox 01/26/19 07:48 36.9 C 78 20 148/71 H 98 01/26/19 07:08 69 18 100 01/26/19 04:00 36.6 C 67 20 123/69 96
--- NOTE | 2019-01-26 12:52 | Hospitalist Progress Note ---
Date of Service January 26, 2019 Assessment & Plan (1) SOB (shortness of breath): Acute on chronic respiratory failure with hypoxia, hypercapnia Likely multifactorial: Acute on chronic diastolic RV CHF, COPD exacerbation, Symptomatic anemia, H/O OHS on CPAP Chronic oxygen dependency-4 L at baseline Hypertensive urgency --On presentation Patient presented with worsening shortness of breath, weight gain of about 10 pounds since last admission, worsening leg edema, has Chronic anemia, worsening cough with yellowish expectoration CXR:Mild cardiomegaly with chronic interstitial thickening and stable left basilar atelectasis/scarring. No evidence of acute parenchymal consolidation ECHO: EF 60 to 65%, LV wall motion is normal, Mild TR Transfused 1 unit PRBC to keep hemoglobin greater than 8.0 IV diuretics transitioned to p.o. Bumex Continue IV Solu medrol, Doxycycline Monitor H&H, I's and O's, daily weight Continue fluid restriction Appreciate Cardiology input Close monitoring of hemoglobin, BMP daily Clinically improving Metabolic Alkalosis Likely secondary to COPD, diuretics Monitor daily BMP Symptomatic anemia: Hb Baseline ~8.0 H/O peptic ulcer disease--last EGD in December 2018 Also has history of iron deficiency anemia, CKD S/P 1 unit PRBCs No acute bleeding issues Monitor H&H Transfuse PRBC as needed to keep hemoglobin greater than 8.0 Hb 8.7 today Paroxysmal atrial fibrillation Currently in sinus Continue propafenone Is on Aspirin Not a candidate for anticoagulation due to H/O GI bleed CKD IV: Baseline CR ~ 1.5 Cr at baseline Monitor renal function Avoid nephrotoxic agents as able Renal function stable Peptic Ulcer disease Continue Carafate, PPI May need to hold aspirin if hemoglobin continues to drop Past tobacco abuse Quit smoking many years ago HTN: Blood pressure variable Continue losartan, metoprolol HLP: Continue statin DVT Px: SCDs RE H/O GI bleed, Anemia Code Status Full code Disposition: Refuses rehab placement PT OT prior to discharge Subjective Patient is seen and examined at bedside Leg edema continues to improve No new complaints IV diuretics transition to p.o. Bumex cough and SOB continues to improve Denies any bleeding issues Hb stable Review of Systems Review of Systems: All systems reviewed & are unremarkable except as noted in HPI & below Physical Exam Physical Exam: Physical Exam: Vitals signs as noted above General Appearance:Chronic ill appearing, no apparent distress Head: normocephalic, Atraumatic Eyes: normal inspection, EOMI Neck: supple, Trachea midline Respiratory/Chest: Coarse decreased breath sounds Cardiovascular: S1, S2, No murmur Abdomen/GI:Soft, Non tender, Bowel sounds present Extremities/Musculoskelatal:normal inspection, 1 + B/L LE edema Neurologic/Psych:AAOX3, grossly no focal neurological deficits Skin: normal color, warm Results & Data Vital Signs (Past 12 Hours) Vital Signs Temp Pulse Resp BP Pulse Ox 01/26/19 12:44 36.7 C 76 22 174/84 H 97 01/26/19 07:48 36.9 C 78 20 148/71 H 98 01/26/19 07:08 69 18 100 01/26/19 04:00 36.6 C 67 20 123/69 96 Laboratory Results Short CBC 01/26/19 Range/Units 06:08 Hgb 8.7 L (12.0-16.0) g/dL Hct 28.0 L (37-47) % BMP 01/26/19 06:08 Sodium 140 Potassium 4.0 Chloride 96 L Carbon Dioxide 41 H* BUN 49 H Creatinine 1.36 H Glucose 88 Calcium 9.7
[2019-01-26] MEDS ORDERED: BUMETANIDE 1 MG TAB PO SCH (17:00)
[2019-01-26] MEDS ORDERED: COUGH DROP (SUGAR FREE) LOZ 24 LOZ/1 BOX BUCCAL STA (19:47)
[2019-01-26] MEDS: ATORVASTATIN 20 MG TAB PO SCH (20:12)
[2019-01-27] MEDS: LEVALBUTEROL 1.25MG/0.5ML NEB INH SCH ×3 (02:53→13:54)
[2019-01-27] MEDS: IPRATROPIUM BROMIDE NEB SOLN 0.02% 2.5 ML VIAL INH SCH ×3 (02:53→13:54)
[2019-01-27 05:49] LABS: Hemoglobin 8.7 g/dL (12.0-16.0)
[2019-01-27] MEDS: PROPAFENONE HCL 150 MG TABLET PO SCH ×2 (05:49→15:13)
[2019-01-27] MEDS: LEVOTHYROXINE SODIUM 88 MCG TABLET PO SCH (05:49)
[2019-01-27 07:13] LABS: BUN Creatinine Ratio 34.9 (10-20); Calcium 9.6 mg/dl (8.5-10.1); Creatinine Clr Calc Pharmacy 43.6 ml/min; Est GFR (African American) 41.8; Est GFR (Non-African American) 36.1; Potassium 4.1 mmol/L (3.5-5.1)
[2019-01-27] MEDS: LOSARTAN POTASSIUM 50 MG TAB PO SCH (09:23)
[2019-01-27] MEDS: PANTOprazole 40 MG TAB PO SCH (09:23)
[2019-01-27] MEDS: ALLOPURINOL 300 MG TAB PO SCH (09:23)
[2019-01-27] MEDS: ROFLUMILAST 500 MCG TAB PO SCH (09:24)
[2019-01-27] MEDS: DOXYCYCLINE HYCLATE 100 MG CAP PO SCH (09:24)
[2019-01-27] MEDS: POTASSIUM CHLORIDE 20 MEQ TABCR PO SCH (09:24)
[2019-01-27] MEDS: LACTOBACILLUS ACIDOPHILUS (FLORANEX) TAB PO SCH ×2 (09:24→15:12)
[2019-01-27] MEDS: SERTRALINE HCL 50 MG TABLET PO SCH (09:24)
[2019-01-27] MEDS: ASPIRIN 81 MG ECTAB PO SCH (09:25)
[2019-01-27] MEDS: CHOLECALCIFEROL 1,000 UNITS TAB PO SCH (09:25)
[2019-01-27] MEDS: METOPROLOL SUCC 50MG EXT REL TAB PO SCH (09:25)
[2019-01-27] MEDS: INSULIN ASPART 100 UNITS/ML 3 ML PEN SC SCH ×2 (09:25→13:22)
[2019-01-27] MEDS: GABAPENTIN 600 MG TAB PO SCH ×2 (09:25→15:12)
[2019-01-27] MEDS: SUCRALFATE 1 GM TAB PO SCH ×2 (13:17→13:24)
--- NOTE | 2019-01-27 13:17 | Hospitalist Progress Note ---
Date of Service January 27, 2019 Assessment & Plan (1) SOB (shortness of breath): Acute on chronic respiratory failure with hypoxia, hypercapnia Likely multifactorial: Acute on chronic diastolic RV CHF, COPD exacerbation, Symptomatic anemia, H/O OHS on CPAP Chronic oxygen dependency-4 L at baseline Hypertensive urgency --On presentation Patient presented with worsening shortness of breath, weight gain of about 10 pounds since last admission, worsening leg edema, has Chronic anemia, worsening cough with yellowish expectoration CXR:Mild cardiomegaly with chronic interstitial thickening and stable left basilar atelectasis/scarring. No evidence of acute parenchymal consolidation ECHO: EF 60 to 65%, LV wall motion is normal, Mild TR Transfused 1 unit PRBC to keep hemoglobin greater than 8.0 IV diuretics transitioned to p.o. Bumex Received IV Solu medrol Continue Doxycycline to complete 7 day course Monitor H&H, I's and O's, daily weight Continue fluid restriction Appreciate Cardiology input Close monitoring of hemoglobin, BMP daily Clinically improved No plan to discharge on Prednisone given peptic ulcer disease Metabolic Alkalosis Likely secondary to COPD, diuretics Monitor daily BMP Symptomatic anemia: Hb Baseline ~8.0 H/O peptic ulcer disease--last EGD in December 2018 Also has history of iron deficiency anemia, CKD S/P 1 unit PRBCs No acute bleeding issues Monitor H&H Transfuse PRBC as needed to keep hemoglobin greater than 8.0 Hb 8.7 today Paroxysmal atrial fibrillation Currently in sinus Continue propafenone Is on Aspirin Not a candidate for anticoagulation due to H/O GI bleed CKD IV: Baseline CR ~ 1.5 Cr at baseline Monitor renal function Avoid nephrotoxic agents as able Renal function stable Peptic Ulcer disease Continue Carafate, PPI May need to hold aspirin if hemoglobin continues to drop Past tobacco abuse Quit smoking many years ago HTN: Blood pressure variable Continue losartan, metoprolol HLP: Continue statin DVT Px: SCDs RE H/O GI bleed, Anemia Code Status Full code Disposition: Plan to discharge home with Home Health Patient refuses Rehab placement Subjective Patient is seen and examined at bedside Feels lot better today No new complaints Breathing much improved Less Leg edema Discussed with Cardiology today Minimal cough Denies any bleeding issues Hb, renal function stable Review of Systems Review of Systems: All systems reviewed & are unremarkable except as noted in HPI & below Physical Exam Physical Exam: Physical Exam: Vitals signs as noted above General Appearance:Chronic ill appearing, no apparent distress Head: normocephalic, Atraumatic Eyes: normal inspection, EOMI Neck: supple, Trachea midline Respiratory/Chest: Coarse decreased breath sounds Cardiovascular: S1, S2, No murmur Abdomen/GI:Soft, Non tender, Bowel sounds present Extremities/Musculoskelatal:normal inspection, 1 + B/L LE edema Neurologic/Psych:AAOX3, grossly no focal neurological deficits Skin: normal color, warm Results & Data Vital Signs (Past 12 Hours) Vital Signs Temp Pulse Pulse Resp BP BP Pulse Ox 01/27/19 12:18 36.8 C 65 18 128/65 97 01/27/19 08:18 36.7 C 69 22 116/64 98 01/27/19 07:18 64 01/27/19 07:13 69 18 98 01/27/19 06:21 64 18 121/50 L 97 01/27/19 04:10 36.7 C 64 18 116/73 95 Laboratory Results Short CBC 01/27/19 Range/Units 05:33 Hgb 8.7 L (12.0-16.0) g/dL Hct 28.0 L (37-47) % BMP 01/27/19 05:33 Sodium 140 Potassium 4.1 Chloride 96 L Carbon Dioxide 41 H* BUN 51 H Creatinine 1.46 H Glucose 84 Calcium 9.6
--- NOTE | 2019-01-27 13:31 | Discharge Summary ---
Date of Service January 27, 2019 Admission HPI Per Admitting Provider History obtained from patient and records. Medical history significant for chronic hypoxemic respiratory failure secondary to COPD on home O2, pulmonary hypertension, OHS on CPAP, paroxysmal atrial fibrillation not on anticoagulation, hypertension, chronic diastolic heart failure, EF of 55-60, TTE 2017, past tobacco abuse, chronic renal insufficiency, baseline creatinine 1.5-2, chronic anemia (baseline hemoglobin of 8). Recent confinement 2 weeks ago for COPD exacerbation. Last few days, patient noted shortness of breath mostly on exertion. Intermittent chest discomfort. Leg somewhat more swollen than usual. Compliant with home diuretic regimen. Denies dietary indiscretion. Not aware of any need for fluid restriction at home. Usual cough symptoms. Denies abdominal pain, black/bloody stools. Patient felt more short of breath she went to her bathroom this morning. Medical History as above Surgical History : Appendectomy, cholecystectomy, wrist surgery, shoulder surgery, hip replacement, neck surgery Family History : Diabetes, heart disease Personal/Social history : Past tobacco abuse, no EtOH intake, retired from [employer] work Admission Exam Per Admitting Provider GENERAL: Anxious, obese, no overt respiratory distress SKIN: Pallor , warm HEENT: pale palpebral conjunctivae, no ptosis, dry buccal mucosa NECK : Supple, short neck, no tenderness CHEST : Expiratory wheezes, no tenderness HEART : RRR, no obvious murmurs ABDOMEN: distention, nontender EXTREMITIES : Bilateral LE swelling, no LE tenderness, no other conspicuous deformities noted NEUROLOGIC : Coherent, no facial asymmetry, slightly hard of hearing, gait and stance not assessed Principal Diagnosis Discharge Information Discharge Diagnosis Acute on chronic respiratory failure with hypoxia, hypercapnia Acute on chronic diastolic CHF Acute on Chronic COPD exacerbation Discharge Goals Decrease discomfort,Improve function,Improve disease control Discharge Activity Limitations Resume your previous activity Discharge Data Allergies Allergy/AdvReac Type Severity Reaction Status Date / Time adhesive Allergy Severe RED RASH Verified 01/24/19 04:15 latex AdvReac Mild TAPE-SORE Verified 01/24/19 04:15 morphine AdvReac Mild DELUSIONS Verified 01/24/19 04:15 Consultations 01/24/19 07:59 Consult Cardiology Routine Consult Case Management - Discharge Planning Routine Procedures Performed CXR: Mild cardiomegaly with chronic interstitial thickening and stable left basilar atelectasis/scarring. No evidence of acute parenchymal consolidation Hospital Course (1) SOB (shortness of breath): Acute on chronic respiratory failure with hypoxia, hypercapnia Likely multifactorial: Acute on chronic diastolic RV CHF, COPD exacerbation, Symptomatic anemia, H/O OHS on CPAP Chronic oxygen dependency-4 L at baseline Hypertensive urgency --On presentation Patient presented with worsening shortness of breath, weight gain of about 10 pounds since last admission, worsening leg edema, has Chronic anemia, worsening cough with yellowish expectoration CXR:Mild cardiomegaly with chronic interstitial thickening and stable left basilar atelectasis/scarring. No evidence of acute parenchymal consolidation ECHO: EF 60 to 65%, LV wall motion is normal, Mild TR Transfused 1 unit PRBC to keep hemoglobin greater than 8.0 IV diuretics transitioned to p.o. Bumex Received IV Solu medrol Continue Doxycycline to complete 7 day course Monitor H&H, I's and O's, daily weight Continue fluid restriction Appreciate Cardiology input Close monitoring of hemoglobin, BMP daily Clinically improved No plan to discharge on Prednisone given peptic ulcer disease Metabolic Alkalosis Likely secondary to COPD, diuretics Monitor daily BMP Symptomatic anemia: Hb Baseline ~8.0 H/O peptic ulcer disease--last EGD in December 2018 Also has history of iron deficiency anemia, CKD S/P 1 unit PRBCs No acute bleeding issues Monitor H&H Transfuse PRBC as needed to keep hemoglobin greater than 8.0 Hb 8.7 today Paroxysmal atrial fibrillation Currently in sinus Continue propafenone Is on Aspirin Not a candidate for anticoagulation due to H/O GI bleed CKD IV: Baseline CR ~ 1.5 Cr at baseline Monitor renal function Avoid nephrotoxic agents as able Renal function stable Peptic Ulcer disease Continue Carafate, PPI May need to hold aspirin if hemoglobin continues to drop Past tobacco abuse Quit smoking many years ago HTN: Blood pressure variable Continue losartan, metoprolol HLP: Continue statin DVT Px: SCDs RE H/O GI bleed, Anemia Code Status Full code Disposition: Plan to discharge home with Home Health Patient refuses Rehab placement Total Time Total Time Spent Total Time Spent (In Minutes): 41 minutes Total Time Includes: Examination of the Patient, Discharge Planning, Medication Reconciliation, Communication With Other Providers and Other Discharge Plan Discharge Items Patient Disposition: Home - Home Health Services Reason For Visit: CHF Discharge Diagnosis: Acute on chronic respiratory failure with hypoxia, hypercapnia Acute on chronic diastolic CHF Acute on Chronic COPD exacerbation Discharge Goals: Decrease discomfort, Improve disease control and Improve function Activity: Resume your previous activity Exercise/Sports: Gradually increase as tolerated Non-emergency contact: Primary Care Provider, Service Delivery Management Consultant and Geographical Historian Call non-emergency contact if: you have any medication questions, your symptoms worsen, your pain is not controlled, your pain is worsening, your pain is unusual for you, your pain is concerning for you and you have a fever Follow-up/Referrals: Babak Melendez MD [Primary Care Provider] - Diet: Heart Healthy Fluids: 2000ml (8 cups) Addtl Provider Instructions: Follow-up with Dr. Melendez on February 01, 2019 at 11:05 AM Follow-up with your log scaler in 4 weeks Follow up with your Pulmnologist as recommended Complete antibiotic course as prescribed Seek immediate medical attention if your symptoms reoccur or worsen Call your Primary Care doctor if any of the following symptoms or problems start or get worse: * Shortness of breath or difficulty breathing * Wake up at night short of breath * Chest pain * Cough * Swelling of your hands, feet, or legs * More fatigued or tired with your normal activity * Palpitations - sudden fast heart beats WEIGHT * Weigh yourself every morning after using the bathroom. * Use the same scale. * Wear the same amount of clothing. * Write your weight down on a chart. * Call your Primary Care doctor if you gain more than 2-3 pounds in 1-2 days. MEDICATIONS * Use this discharge instruction sheet for medication instructions. * Take your medications at the time your doctor ordered. * Do not skip a dose of your medicines. * If you miss a dose of medicine, take it as soon as possible, but DO NOT DOUBLE A DOSE. * Read your medicine information when you get home. * Know all of the side effects of your medicine. If in doubt, ask your pharmacist * Call your Primary Care doctor's office if you have any side effects. * Be sure all of your doctors know what medicine and herbs you take (including cold, flu, and herbal medicine). Take the following with you to your follow-up doctor appointments: * Weight Chart * Medication List * List of questions Do not drink excessive alcohol, beer or wine. Prescriptions: New doxycycline hyclate 100 mg Capsule 100 mg PO BID Qty: 7 RF: 0 Continued Breo Ellipta 200-25 mcg/dose Blister With Device 1 inh INHALATION DAILY RF: 0 multivitamin Tablet 1 tab PO DAILY RF: 0 losartan 50 mg Tablet 50 mg PO DAILY RF: 0 metolazone 2.5 mg Tablet 2.5 mg PO MOFR RF: 0 propafenone 150 mg Tablet 150 mg PO Q8H RF: 0 gabapentin 600 mg Tablet 600 mg PO TID RF: 0 atorvastatin 20 mg Tablet 20 mg PO QPM RF: 0 metoprolol succinate 50 mg Tablet Extended Release 24 Hr 50 mg PO DAILY RF: 0 aspirin [Aspir-81] 81 mg Tablet,Delayed Release (Dr/Ec) 81 mg PO DAILY RF: 0 levothyroxine 88 mcg Tablet 88 mcg PO DAILYBB RF: 0 ranitidine HCl 150 mg Tablet 150 mg PO BID RF: 0 sertraline [Zoloft] 25 mg Tablet 25 mg PO DAILY RF: 0 bumetanide 1 mg Tablet 1 mg PO BID RF: 0 allopurinol 300 mg Tablet 300 mg PO DAILY RF: 0 cholecalciferol (vitamin D3) [Vitamin D3] 2,000 unit Tablet 2,000 unit PO QAM RF: 0 Lactinex 1 million cell Tablet,Chewable 1 tab PO TID RF: 0 Daliresp 500 mcg Tablet 500 mcg PO DAILY RF: 0 potassium chloride 20 mEq Tablet Extended Release 20 meq PO Q OTHER DAY RF: 0 acetaminophen [Tylenol] 325 mg Capsule 650 mg PO Q4 PRN (Reason: Fever Or Pain) RF: 0 albuterol sulfate 2.5 mg /3 mL (0.083 %) Solution For Nebulization 2.5 mg INHALATION Q6 PRN (Reason: Shortness Of Breath Or Wheezing) RF: 0 pantoprazole 40 mg Tablet,Delayed Release (Dr/Ec) 40 mg PO BID 30 Days Qty: 60 RF: 0 sucralfate 1 gram tablet 1 gm PO ACHS 28 Days Qty: 28 RF: 0 prednisone 10 mg tablet 10 mg PO UD Qty: 20 RF: 0 Stand-Alone Forms: [facility] Discharge Orders: Discharge Order (Routine); Ordered 01/27/19 Ordered By: Bautista Casper Admission Data Admit Date/Time: 01/24/19 06:12 Attending Provider: Bautista Casper Admit Provider: Spencer Lowery Primary Care Provider: Babak Melendez Other Providers: Quan Patel Service: Medical Other Interventions: Discharge Summary Assessment (RN) Last Done: 01/27/19 14:20 Pending Studies at Discharge: No DC Date/Time DO NOT enter until pt leaves facility: 01/27/19 17:23
[2019-01-27] MEDS: methylPREDNISolone 40 MG in SYRINGE 0 ML IV SCH (15:11)
== END 2019-01-27 17:23 | disposition home health service (06) | DRG 291 ==
LOC: ED 03:47 → 2S 06:12 → 2W 01-26 14:17

== ENCOUNTER 2019-04-12 18:57 | Inpatient (IN) ==
[2019-04-12] MEDS ORDERED: fentaNYL citrate 100 MCG/2 ML VIAL IV STA ×2 (19:28→21:52)
--- NOTE | 2019-04-12 20:39 | CT Scan Report ---
CT SCAN OF THE BRAIN WITHOUT IV CONTRAST CLINICAL HISTORY: Fall. COMPARISON STUDY: CT of the brain dated 05/25/2018. TECHNIQUE: Unenhanced axial CT scan of the brain is performed from the vertex to the skull base. A do se lowering technique was utilized adhering to the principles of ALARA. CT DOSE: 969.37 mGy.cm FINDINGS: Brain parenchyma: There are age-related involutional changes noting mild subcortical and periventric ular microangiopathic change. There is no hemorrhage, mass effect, or evidence of acute territorial i schemia by CT criteria. Street-white matter differentiation is preserved. No extra-axial fluid collecti on is seen. Ventricles, sulci, cisterns: Prominent secondary to involutional change. Intracranial vasculature: There is atherosclerotic calcification of the cavernous carotid arteries. Calvarium: The skeletal structures are osteopenic. No depressed calvarial fracture is seen. Sinuses and mastoids: Moderate mucosal thickening is noted in the sphenoid sinuses. The remaining vis ualized paranasal sinuses are clear. The mastoid air cells are well pneumatized. Orbits: The bony orbits are grossly intact. IMPRESSION: There is no hemorrhage, mass effect, or evidence of acute territorial ischemia by CT narciso rivas. Electronically signed by: Juan J Keen M.D. 04/12/2019 8:38 PM
--- NOTE | 2019-04-12 20:45 | CT Scan Report ---
CT SCAN OF THE CERVICAL SPINE CLINICAL HISTORY: Fall. COMPARISON STUDY: CT of the cervical spine dated 05/25/2018. TECHNIQUE: CT scan of the cervical spine is performed from the skull base to the upper thoracic spine . Images are reviewed in the axial, sagittal, and coronal planes. IV contrast was not administered fo r this examination. A dose lowering technique was utilized adhering to the principles of ALARA. The examination is degraded by streak artifact from the shoulders. FINDINGS: Skeletal structures: The skeletal structures are osteopenic. There is no evidence of fracture or subl uxation involving the cervical spine. Left laminar defects at C5 and C6 are unchanged from prior stud ies and may be related to previous surgery. Vertebral body height and alignment are maintained. There is straightening of the cervical lordosis. Anterior osteophytes are seen throughout. The odontoid pr ocess and lateral masses are intact. The atlantoaxial articulation is preserved noting productive deg enerative change. The spinous processes appear intact. There is moderate multilevel cervical spondylo sis. Uncovertebral and facet arthropathy contribute to neural foraminal stenosis at several levels. Intervertebral discs: There is moderate disc space narrowing at C4-C5, C5-C6, and C6-C7. Central canal: Posterior disc osteophyte complexes at C4-C5, C5-C6, and C6-C7 likely contribute to mi ld multilevel acquired compromise of the central canal. Soft tissues: The prevertebral and paraspinous soft tissues are within normal limits. A 13 mm nodule is noted in the right thyroid lobe. There is atherosclerotic calcification of the carotid bulbs. Calvarium: The visualized calvarium at the skull base appears intact. Brain parenchyma: Partially visualized brain parenchyma the skull base is within normal limits noting age-related involutional change. Sinuses and mastoids: The visualized paranasal sinuses are clear. The mastoid air cells are well pneu matized. Lung apices: Emphysematous change is noted at the apices. Partially imaged apical lung parenchyma is clear as visualized. IMPRESSION: 1. There is no evidence of fracture or subluxation involving the cervical spine. 2. Osteopenia and multilevel spondylosis as above. Electronically signed by: Juan J Keen M.D. 04/12/2019 8:44 PM
--- NOTE | 2019-04-12 21:53 | XRay Report ---
SINGLE VIEW CHEST CLINICAL HISTORY: Fall. FINDINGS: An AP, portable, supine chest radiograph is compared to study dated 02/24/2019 and correlate d with chest CT dated 06/22/2017. The examination is degraded by portable technique and patient rotat ion. The heart is enlarged and there is atherosclerotic calcification of the thoracic aorta. The pulm onary vasculature is noncongested. Chronic interstitial thickening is similar to previous. There is b ibasilar scarring/atelectasis. No airspace consolidation or large pleural effusion is identified. No pneumothorax is seen. The skeletal structures are osteopenic. There are healed right-sided rib fractu res. A right shoulder arthroplasty is in place. Kyphoplasty cement projects over the upper thoracic s pine. IMPRESSION: Cardiomegaly with no acute cardiopulmonary abnormality. Electronically signed by: Juan J Keen M.D. 04/12/2019 9:51 PM
--- NOTE | 2019-04-12 21:56 | XRay Report ---
LEFT SHOULDER 3 VIEWS; LEFT HUMERUS 2 VIEWS CLINICAL HISTORY: Fall with left shoulder pain. FINDINGS: 3 views of the left shoulder with AP and lateral views of the left humerus are obtained. Co mparison is made to study dated 07/29/2017. The skeletal structures are osteopenic. There is no radiog raphic evidence of left shoulder fracture or dislocation. There is no radiographic evidence of left h umeral fracture. Productive degenerative changes noted at the acromioclavicular joint. Mild superior subluxation of the humeral head suggests chronic rotator cuff injury. Degenerative sclerosis is noted in the greater tuberosity of the humeral head. The elbow joint is grossly preserved. The overlying s oft tissues are normal in appearance. The visualized left lung parenchyma appears clear. Kyphoplasty cement is noted in the thoracic spine. IMPRESSION: 1. There is no radiographic evidence of left shoulder fracture or dislocation. 2. There is no radiographic evidence of left humeral fracture. 3. Superior subluxation of the humeral head suggests chronic rotator cuff injury. Electronically signed by: Juan J Keen M.D. 04/12/2019 9:54 PM
[2019-04-12] MEDS: fentaNYL citrate 100 MCG/2 ML VIAL ONE ×2 (21:58→22:06)
--- NOTE | 2019-04-12 21:58 | XRay Report ---
LEFT KNEE 3 VIEWS CLINICAL HISTORY: Fall with left knee pain. FINDINGS: AP, crosstable lateral, and sunrise views of the left knee are obtained. No prior studies a re available for comparison at the time of dictation. The skeletal structures are osteopenic. No frac ture is seen. There is moderate to advanced tricompartmental degenerative joint space narrowing, grea test in the medial patellofemoral compartments. There are marginal osteophytes, degenerative beaking of the tibial spine, and small patellar enthesophytes. There is no large joint effusion. Mild medial soft tissue swelling is suggested. IMPRESSION: Osteopenia and degenerative change as above with no acute bony abnormality identified. Electronically signed by: Juan J Keen M.D. 04/12/2019 9:56 PM
--- NOTE | 2019-04-12 22:01 | XRay Report ---
SINGLE VIEW PELVIS; 2 VIEWS LEFT HIP CLINICAL HISTORY: Fall with pelvic and left hip pain. FINDINGS: An AP supine view of the pelvis with AP and frog-leg views of the left hip are obtained. Co mparison is made to study dated 01/03/2018. The skeletal structures are osteopenic. There is no radiog raphic evidence of acute fracture involving the hips or bony pelvis. A bipolar right hip arthroplasty is in near-anatomic alignment. Moderate to advanced degenerative joint space narrowing is seen in th e left hip. Sclerotic change is noted in the sacroiliac joints. Lumbosacral spondylosis is partially visualized. The overlying soft tissues are normal in appearance. Phleboliths are noted in the pelvis. There is no bowel obstruction. IMPRESSION: 1. There is no radiographic evidence of fracture involving the hips or bony pelvis. 2. Osteopenia, degenerative change, and right hip arthroplasty as above. Electronically signed by: Juan J Keen M.D. 04/12/2019 10:00 PM
--- NOTE | 2019-04-12 22:19 | XRay Report ---
LEFT WRIST 2 VIEWS CLINICAL HISTORY: Fall with left wrist pain and swelling. FINDINGS: AP and crosstable lateral views of the left wrist are obtained. No prior studies are availa ble for comparison at the time of dictation. The examination is degraded by suboptimal positioning. T he skeletal structures are osteopenic. No fracture is seen. There is degenerative narrowing at the ra diocarpal articulation. Moderate to advanced osteoarthritic change is seen at the first carpometacarp al articulation where there is bony sclerosis, overgrowth, and mild subluxation. Osteoarthritic gonzalez e is also seen involving the metacarpophalangeal joints. Soft tissue swelling is present around the w rist. A ring is present on the fourth finger. IMPRESSION: 1. Soft tissue swelling with no radiographic evidence of acute fracture. 2. Osteopenia and arthritic change as above. Electronically signed by: Juan J Keen M.D. 04/12/2019 10:18 PM
[2019-04-12] MEDS ORDERED: HYDROCODONE/ACETAMOPHEN 5/325MG TAB PO STA (23:15)
--- NOTE | 2019-04-13 01:06 | History and Physical Report ---
DATE OF ADMISSION: 04/12/2019 CHIEF COMPLAINT: Status post fall, left shoulder pain. HISTORY OF PRESENT ILLNESS: This is a 68-year-old female with past medical history significant for severe chronic obstructive pulmonary disease, chronic respiratory failure, on 4 liters oxygen all the time, hyperlipidemia, hypothyroidism, atrial fibrillation, not on anticoagulation secondary to history of gastrointestinal bleed and hematoma, history of right-sided heart failure, hypertension, chronic kidney disease stage III-IV, iron deficiency anemia, spinal stenosis, depression with anxiety, multiple admissions for chronic obstructive pulmonary disease exacerbations, history of heme-positive stool, status post esophagogastroduodenoscopy, showing nonbleeding gastric ulcers in 12/2018 who lives at home with her daughter, ambulates without any help. She states she was walking today when she tripped over her oxygen hose and fell down on the left side. She states she is having significant pain in the left shoulder and knee so she came to the Emergency Room. All the imaging studies in the Emergency Room were unremarkable, but the patient states she has significant pain so we are called for admission for possible placement. The patient denies any headache. No blurred vision. No earache. No runny nose. No sore throat. No cough. No fever. No chills. No shortness of breath. No chest pain. No nausea. No vomiting. No abdominal pain. Normal bowel and bladder movements. No hematuria. No black stools or bloody stools. No rash. Currently resting comfortably and hemodynamically stable. Complains of pain in the left shoulder. She has painful movements of the left upper extremity and also left lower extremity. No bruise or ecchymosis seen. ALLERGIES: No known drug allergies. PAST MEDICAL HISTORY: As mentioned above. PAST SURGICAL HISTORY: Colonoscopy, neck fusion surgery, appendectomy, cholecystectomy, right shoulder surgery, right hip replacement surgery and repair of the wrist. MEDICATIONS: The patient is on Tylenol 650 mg p.o. q. 4 hours p.r.n., albuterol nebulization q. 6 hours p.r.n., allopurinol 300 mg p.o. a.m., atorvastatin 20 mg p.o. a.m., Breo Ellipta 1 inhalation daily, Bumex 1 mg p.o. b.i.d., vitamin D 2000 units p.o. a.m., Daliresp 500 mcg daily, gabapentin 600 mg p.o. t.i.d., levothyroxine 88 mcg daily, losartan 50 mg p.o. daily, metolazone 2.5 mg p.o. on Mondays and Fridays, Toprol-XL 50 mg p.o. daily in a.m., multivitamins 1 tablet q.a.m., Zofran 4 mg p.o. q. 6 hours p.r.n., potassium chloride 20 mEq p.o. every other day, propafenone 150 mg p.o. q. 8 hours, Zantac 150mg bid, and Zoloft 25 mg p.o. a.m. FAMILY HISTORY: Significant for mother had diabetes and heart disorder. Sister has heart disorder. SOCIAL HISTORY: , lives with his daughter. Quit smoking in 2009. Prior to that, smoked a half pack a day for 35 years. No alcohol use. No drug use. REVIEW OF SYMPTOMS: As per HPI. Rest of review of systems negative. PHYSICAL EXAMINATION: GENERAL: The patient is morbidly obese, not in acute distress. VITAL SIGNS: Temperature 36.9, pulse 84, respiratory rate 20, blood pressure 142/73 and oxygen 98% on 4 liters. HEENT: No pallor. No icterus. Pupils are equal, round and reactive to light. NECK: No JVD. No neck masses. No carotid bruits. CARDIOVASCULAR: S1, S2 heard. Regular rate and rhythm. No murmur. No gallop. RESPIRATORY SYSTEM: Normal AP diameter. No accessory muscle use. No wheezing. No crackles. ABDOMEN: Soft. Bowel sounds present. Nontender. No distention. CENTRAL NERVOUS SYSTEM: Cranial nerves II through XII grossly intact. Nonfocal. EXTREMITIES: No edema. No erythema. LABORATORY DATA: Unavailable at this time. Left wrist x-ray, soft tissue swelling with no evidence of fracture, osteopenia. Left shoulder x-ray, no acute findings, chronic rotator cuff injury. Left knee x-ray, no acute findings. Left humerus x-ray, no acute findings. Left hip and pelvic x-ray, no acute findings. CTA of the head, no acute findings. Chest x-ray, no acute findings. Cervical spine CT, no acute findings. ASSESSMENT AND PLAN: This is a 68-year-old female who fell at home on the left side who comes with severe left shoulder pain and left knee pain. 1. Status post mechanical fall, left shoulder pain and knee pain, imaging studies are unremarkable. We will also get a CAT scan of the left shoulder. Pain control with oxycodone p.r.n. iv Dilaudid prn. Physical therapy, occupational therapy. Social Service to help with possible placement. 2. History of chronic respiratory failure, chronic obstructive pulmonary disease, continue home inhalers and on oxygen 4 liters all the time. 3. History of paroxysmal atrial fibrillation, on Rythmol and aspirin, not a candidate for anticoagulation secondary to history of gastrointestinal bleed. 4. Chronic kidney disease stage IV, baseline creatinine 1.5,.we will follow the laboratories in a.m. 5. History of hypertension, on losartan and metoprolol. We will monitor the blood pressure. 6. Hyperlipidemia, on statin. 7. History of anemia, baseline around 8. Anemia of chronic kidney disease.. Iron deficiency anemia. We will follow the laboratories. 8. History of peptic ulcer disease. Last esophagogastroduodenoscopy in December 2018 showing non bleeding gastric ulcers. on PPI9. History of iron deficiency anemia of chronic kidney disease. 9. Deep venous thrombosis prophylaxis, sequential compression devices for now. 10.. Disposition, admit to medical floor. Physical therapy and occupational therapy prior to discharge. Social Service to help with discharge planning. Code status, full code as per my discussion with the patient. MTDD
[2019-04-13] MEDS ORDERED: NON-FORMULARY MEDICATION (Acetaminophen [Tylenol] 650 MG) PO PRN (01:17)
[2019-04-13] MEDS ORDERED: ACETAMINOPHEN 325 MG TAB PO PRN (01:17)
[2019-04-13] MEDS ORDERED: ALBUTEROL 0.083% NEBU SOLN 3 ML VIAL INH PRN (01:17)
[2019-04-13] MEDS ORDERED: ONDANSETRON INJ 2 MG/ML 2 ML VIAL IV PRN (01:17)
[2019-04-13] MEDS ORDERED: POLYETHYLENE (MIRALAX) 17 GM PACK PO PRN (01:17)
[2019-04-13] MEDS: OXYCODONE HCL IR 5 MG TAB (IMMEDIATE RELEASE) PO PRN ×2 (02:08→10:13)
[2019-04-13] MEDS: HYDROmorphone INJ 0.5 MG/0.5 ML SYR IV PRN ×2 (05:15→18:36)
[2019-04-13 05:26] LABS: Basophils # (auto) 0.05 K/uL (0-0.2); Basophils % (auto) 0.4 %; Eosinophils # (auto) 0.33 K/uL (0-0.5); Eosinophils % (auto) 2.4 %; Hematocrit (blood only) 28.6 % (37-47); Hemoglobin 8.6 g/dL (12.0-16.0); Immature Granulocytes # (auto) 0.03 K/uL (0.00-0.02); Immature Granulocytes % (auto) 0.2 %; Lymphocytes % (auto) 15.3 %; Mean Corpuscular Hemoglobin 29.7 pg (25-34); Mean Corpuscular Hgb Conc 30.1 g/dL (32-36); Mean Corpuscular Volume 98.6 fL (80-100); Mean Platelet Volume 9.5 fL (7.4-10.4); Monocytes # (auto) 0.99 K/uL (0.11-0.59); Monocytes % (auto) 7.2 %; Neutrophils # (auto) 10.21 K/uL (1.4-6.5); Neutrophils % (auto) 74.5 %; Platelet Count 204 K/uL (130-400); RDW Coefficient of Variation 15.5 % (11.5-14.5); RDW Standard Deviation 55.7 fL (36.4-46.3); White Blood Count 13.71 K/uL (4.8-10.8)
[2019-04-13 05:48] LABS: BUN Creatinine Ratio 26.5 (10-20); Calcium 10.6 mg/dl (8.5-10.1); Est GFR (Non-African American) 32.8; Magnesium 1.6 mg/dl (1.8-2.4)
[2019-04-13] MEDS: LEVOTHYROXINE SODIUM 88 MCG TABLET PO SCH (06:00)
[2019-04-13] MEDS: PROPAFENONE HCL 150 MG TABLET PO SCH ×3 (06:00→21:39)
--- NOTE | 2019-04-13 07:29 | CT Scan Report ---
CT shoulder LT wo con CLINICAL HISTORY: 68 years-old Female presenting with fall. severe left shoulder pain. TECHNIQUE: Multidetector CT of the left shoulder was performed without the use of intravenous contras t. IV contrast: None. One or more dose lowering techniques were used consistent with the principles o f ALARA (as low as reasonably achievable), including automatic exposure control, mA or kV adjustment to individual patient size, and/or use of iterative reconstruction. COMPARISON: Plain radiographs from yesterday. CT DOSE (mGy.cm): The estimated cumulative dose is 1170.68 mGy.cm. FINDINGS: Agency Owner topogram: Right shoulder arthroplasty. Glenohumeral and acromioclavicular joints congruent. Degenerative changes noted at the glenohumeral j oint with osteophytosis of both the humeral head and bony glenoid. Cystic change along the greater tu bercle of the humeral head suggests chronic impingement. Superior subluxation of the humeral head wit h significant effacement of the acromiohumeral interval consistent with complete rotator cuff tear. F atty atrophy of the rotator cuff musculature most pronounced in the supraspinatus and subscapularis f urther evidence of chronic rotator cuff tears. No gross evidence of a joint effusion. Professional so ft tissues demonstrate mild infiltration along the superior lateral aspect consistent with contusion. Trace hematoma tracks along the superficial aspect of the deltoid. No intramuscular hematoma. Visual ized portion of the left lung clear apart from minimal dependent change. Visualized portion of the le ft ribs intact. IMPRESSION: 1. Haziness contusion along the superolateral left shoulder with trace subjacent hematoma tracking a long the superficial aspect of the deltoid. No intramuscular hematoma. 2. No acute osseous injury. 3. Degenerative changes of the glenohumeral joint. 4. Evidence of chronic rotator cuff tear. Electronically signed by: Mukund Tirado M.D. 04/13/2019 7:28 AM
[2019-04-13] MEDS: MAGNESIUM SULFATE / D5W 1 GM/100 ML BAG IV SCH ×2 (08:32→10:08)
[2019-04-13] MEDS: MAGNESIUM OXIDE 400 MG TAB PO SCH ×2 (08:33→21:41)
[2019-04-13] MEDS: MULTIVITAMIN TAB PO SCH (08:33)
[2019-04-13] MEDS: CHOLECALCIFEROL 1,000 UNITS TAB PO SCH (08:34)
[2019-04-13] MEDS: PANTOprazole 40 MG TAB PO SCH (08:34)
[2019-04-13] MEDS: METOPROLOL SUCC 50MG EXT REL TAB PO SCH (08:35)
[2019-04-13] MEDS: allopurinoL 300 MG TAB PO SCH (08:35)
[2019-04-13] MEDS: SERTRALINE HCL 50 MG TABLET PO SCH (08:35)
[2019-04-13] MEDS: ROFLUMILAST 500 MCG TAB PO SCH (08:35)
[2019-04-13] MEDS: BUMETANIDE 1 MG TAB PO SCH ×2 (08:36→17:11)
[2019-04-13] MEDS: GABAPENTIN 600 MG TAB PO SCH ×3 (08:36→21:39)
[2019-04-13] MEDS ORDERED: POTASSIUM CHLORIDE 20 MEQ TABCR PO SCH (09:00)
[2019-04-13] MEDS ORDERED: LOSARTAN POTASSIUM 50 MG TAB PO SCH (09:00)
--- NOTE | 2019-04-13 15:31 | Hospitalist Progress Note ---
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 No intramuscular hematoma -CT scan also shows Degenerative changes of the glenohumeral joint and Evidence of chronic rotator cuff tear. -acetaminophen prn for mild pain, oxycodone q6 hour prn for moderate to severe pain, PT/OT evaluations, ice to shoulder Chronic respiratory failure with hypoxia -on nasal cannula oxygen 4 liters/min at home -currently at baseline chronic obstructive pulmonary -continue roflumilast -continue home inhalers Obesity hypoventilation Syndrome and on CPAP with sleep -can use home CPAP chronic diastolic heart failure -on bumetanide BID History of paroxysmal atrial fibrillation -on Rythmol and aspirin -not a candidate for anticoagulation secondary to history of gastrointestinal bleed. Hyperlipidemia -on statin Hypertension Neuropathy -on losartan and metoprolol -gabapentin TID Chronic kidney disease stage IV -baseline creatinine 1.5 Chronic anemia -monitor CBC Hypothyroidism -on levothyroxine, continue -check TSH Hypomagnesemia -serum magnesium 1.6 -magnesium supplements given and serum magnesium at goal History of peptic ulcer disease. -Last esophagogastroduodenoscopy in December 2018 showing non bleeding gastric ulcers -on ranitidine Deep venous thrombosis prophylaxis, sequential compression device Full Code daughter Noreen [phone] Subjective chronically on nasal cannula. patient reports her breathing at baseline. no chest pain. no abdomen pain. no vomiting. patient has baseline limited range of motion of the right arm. Patient is right handed. Patient has superior lateral left shoulder tenderness to palpation. patient reports when she reaches to left hand to grab object, there is pain of left shoulder Physical Exam Constitutional: + obese Eyes: PERRL, conjunctivae normal, anicteric sclerae EOM intact bilaterally ENMT: external ear and nose normal, oropharynx normal Neck: normal visual inspection Respiratory: normal respiratory effort, lungs clear to auscultation Cardiovascular: Rate/Rhythm: regular rate and regular rhythm Gastrointestinal (Abdomen): normal bowel sounds, soft, nontender, no hepatos plenomegaly Musculoskeletal: Head/Neck/Chest: normocephalic and head atraumatic patient has baseline limited range of motion of the right arm. Patient is right handed. Patient has superior lateral left shoulder tenderness to palpation. patient reports when she reaches to left hand to grab object, there is pain of left shoulder Neurologic: PERRL, EOMI, accommodation nl, no face palsy, no dysarthria Psychiatric: A+Ox3, euthymic affect Results & Data Vital Signs (Past 12 Hours) Vital Signs Temp Pulse Pulse Resp BP Pulse Ox 04/13/19 15:21 36.7 C 74 18 124/66 98 04/13/19 05:55 76 131/66 (1) Left shoulder pain Chronicity: acute Qualified Code(s): M25.512 - Pain in left shoulder (2) Fall Encounter type: initial encounter Qualified Code(s): W19.XXXA - Unspecified fall, initial encounter
[2019-04-13] MEDS ORDERED: OXYCODONE HCL IR 5 MG TAB (IMMEDIATE RELEASE) PO PRN (15:56)
--- NOTE | 2019-04-13 16:03 | Emergency Department Note ---
Entered by Lisa Shi acting as a scribe for Isidoro Sebastian MD History of Present Illness General Chief complaint: Fall Stated complaint: FALL Time Seen by Provider: 04/12/19 19:07 Source: patient Limitations: no limitations History of Present Illness Provider complaint: Fall Onset (ago): hour(s) 2 Location: upper extremity and lower extremity Pain Consistency: + other (episode) Quality: + constant Associated symptoms: + nausea/vomiting and + other (Positive: fall, shoulder pain, wrist pain, knee pain ) The patient is a 68 year old White female w/ PMHx of HTN, SOB, pneumonia, COPD exacerbation, hyperkalemia, anemia, sepsis, who presents to the ED w/ CC of an episode of a fall that happened 2 hours ago. The patient reports she tripped over her hose and fell on her left side. She notes she is not on blood thinners. The patient reports she has shoulder pain, wrist pain, and knee pain. She notes she vomited after the fall. She additionally states she is on 4 liters of oxygen at home. Home Medications Home Medications Medication Instructions Recorded Confirmed Type Breo Ellipta 1 inh INHALATION DAILY 03/12/18 04/12/19 History Daliresp 500 mcg PO DAILY 03/12/18 04/12/19 History allopurinol 300 mg PO QAM 03/12/18 04/12/19 History atorvastatin 20 mg PO QPM 03/12/18 04/12/19 History bumetanide 1 mg PO BID 03/12/18 04/12/19 History cholecalciferol (vitamin D3) 2,000 unit PO QAM 03/12/18 04/12/19 History [Vitamin D3] gabapentin 600 mg PO TID 03/12/18 04/12/19 History levothyroxine 88 mcg PO DAILYBB 03/12/18 04/12/19 History losartan 50 mg PO QAM 03/12/18 04/12/19 History metolazone 2.5 mg PO MOFR 03/12/18 04/12/19 History metoprolol succinate 50 mg PO QAM 03/12/18 04/12/19 History multivitamin 1 tab PO QAM 03/12/18 04/12/19 History potassium chloride 20 meq PO Q OTHER DAY 03/12/18 04/12/19 History propafenone 150 mg PO Q8H 03/12/18 04/12/19 History ranitidine HCl 150 mg PO BID 03/12/18 04/12/19 History sertraline [Zoloft] 25 mg PO QAM 03/12/18 04/12/19 History acetaminophen [Tylenol] 650 mg PO Q4 PRN 08/07/18 04/12/19 History albuterol sulfate 2.5 mg INHALATION Q6 PRN 08/07/18 04/12/19 History ondansetron 4 mg PO Q6H PRN #14 tab 02/24/19 04/12/19 Rx Allergies Allergy/AdvReac Type Severity Reaction Status Date / Time adhesive Allergy Severe RED RASH Verified 04/12/19 19:37 latex AdvReac Mild TAPE-SORE Verified 04/12/19 19:37 morphine AdvReac Mild DELUSIONS Verified 04/12/19 19:37 Past Med/Surg History Medical History Chronic respiratory failure with hypoxia, on home O2 therapy (Chronic) Anemia (Chronic) Chronic anemia (Chronic) Diarrhea DVT prophylaxis Diastolic CHF, chronic (Chronic) Acute bronchitis COPD exacerbation GERD (gastroesophageal reflux disease) (Chronic) Depression (Chronic) Myocardial infarction (Chronic) "per patient, details unknown" COPD (chronic obstructive pulmonary disease) (Chronic) Paroxysmal a-fib (Chronic) HTN (hypertension) (Chronic) Dyslipidemia (Chronic) EVONNE (iron deficiency anemia) (Chronic) CKD (chronic kidney disease), stage IV (Chronic) Asthma (Chronic) Lumbar spinal stenosis (Chronic) Morbid obesity (Chronic) Obesity hypoventilation syndrome (Chronic) Chronic respiratory failure (Chronic) Surgical History S/P cervical spinal fusion (Chronic) History of appendectomy (Chronic) Hx of cholecystectomy (Chronic) S/P wrist surgery (Chronic) 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) Family History Father Trauma Mother Diabetes Cerebral aneurysm Daughter Bipolar 1 disorder Social History Preferred Language: Vietnamese Communication Ability: Effective Vessel Scrapper Helper Required: No Beliefs That Will Affect Care: None marital status: Current Living Situation: Family Current Living Situation Comment: Lives with her daughter - Noreen Other Information That Helps Us Care for You: No Feels Safe at Home: Yes Safety Concerns: Feels Safe At This Time Smoking Status: Former smoker Tobacco Type: cigarettes ; Cigarettes Per Day: 2 packs ; Second Hand Exposure: No ; Hx Alcohol Use: No Hx Substance Use: No Review of Systems See HPI for pertinent positives & negatives. and A total of 10 systems reviewed and were otherwise negative Physical Exam Vital Signs Vital Signs - 24 hr 04/12/19 19:25 04/12/19 19:49 04/12/19 19:53 Temperature 36.9 C Temperature Source Oral Sepsis Action Taken by Nursing No Action Required Pulse Rate 80 Pulse Rate [Apical] 81 82 Respiratory Rate 22 18 18 Respiratory Effort / Characteristics Non-Labored Non-Labored Non-Labored Respiratory Depth Normal Normal Normal Blood Pressure 98/35 L Blood Pressure [Right Arm] 135/57 L 135/57 L Blood Pressure Mean 56 Blood Pressure Mean [Right Arm] 83 83 Pulse Oximetry 95 99 98 Oxygen Delivery Method Nasal Cannula Nasal Cannula Nasal Cannula Oxygen Flow Rate 4 4 4 04/12/19 20:00 04/12/19 21:00 04/12/19 22:00 Temperature Temperature Source Sepsis Action Taken by Nursing Pulse Rate Pulse Rate [Apical] 81 83 84 Respiratory Rate 20 20 18 Respiratory Effort / Characteristics Non-Labored Non-Labored Respiratory Depth Normal Normal Blood Pressure Blood Pressure [Right Arm] 142/59 H 146/70 H 129/64 Blood Pressure Mean Blood Pressure Mean [Right Arm] 86 95 85 Pulse Oximetry 100 98 94 Oxygen Delivery Method Nasal Cannula Nasal Cannula Nasal Cannula Oxygen Flow Rate 4 4 4 04/12/19 23:32 Temperature Temperature Source Sepsis Action Taken by Nursing Pulse Rate Pulse Rate [Apical] 84 Respiratory Rate 20 Respiratory Effort / Characteristics Non-Labored Respiratory Depth Normal Blood Pressure Blood Pressure [Right Arm] 142/73 H Blood Pressure Mean Blood Pressure Mean [Right Arm] 96 Pulse Oximetry 98 Oxygen Delivery Method Nasal Cannula Oxygen Flow Rate 4 GENERAL: Vomitus in hair. Nasal cannula in place. Non-toxic. EYE EXAM: Normal conjunctiva. PERRL, no anisocoria and EOM's grossly intact w/o pain. OROPHARYNX: Moist mucous membranes. Grossly normal dentition. NECK: Supple, no nuchal rigidity, no adenopathy, non-tender. No signs of meningismus. No midline C-spine TTP HEAD: No obvious deformity, no TTP. LUNGS: Clear to auscultation. Normal chest wall mechanics. HEART: NSR, no MRG. ABDOMEN: Abdomen soft, non-tender, normo-active bowel sounds, no masses, no rebound or guarding. CHEST: No chest wall TTP, no bruising or crepitus. BACK: No CVA TTP. SKIN: No rashes and no bruising. UPPER EXTREMITIES: Upper extremities are grossly normal. Left shoulder discomfort with decreased ROM. Compartment soft. NVI distally. LOWER EXTREMITIES: No pitting edema. No calf pain. Mid left knee pain, decreased ROM. Compartment soft. NVI distally. NEURO EXAM: A&O x3, cranial nerves II-XII grossly intact, normal speech, moves all 4 extremities on command w/o issue. Course 1912: The patient was evaluated in room C9. A complete history and physical exam was performed. 2007: I updated the family. 2314: I discussed the patient's case with Dr. Frias, [facility] Hospitalist. He will evaluate the patient for further management. Administered Medications Allopurinol (Zyloprim) 300 mg PO QAM [facility] Stop: 05/13/19 08:59 Last Admin: 04/13/19 08:35 Dose: 300 mg Documented by: [id number] Bumetanide (Bumex) 1 mg PO BID17 [facility] Stop: 05/13/19 08:59 Last Admin: 04/13/19 08:36 Dose: 1 mg Documented by: [id number] Gabapentin (Neurontin) 600 mg PO TID [facility] Stop: 05/13/19 08:59 Last Admin: 04/13/19 13:57 Dose: 600 mg Documented by: [id number] Admin: 04/13/19 08:36 Dose: 600 mg Documented by: [id number] Hydromorphone HCl (Dilaudid) 0.5 mg IV Q4H PRN PRN Reason: Pain Stop: 04/27/19 05:02 Last Admin: 04/13/19 05:15 Dose: 0.5 mg Documented by: [id number] Levothyroxine Sodium (Synthroid) 88 mcg PO DAILYBB [facility] Stop: 05/13/19 06:29 Last Admin: 04/13/19 06:00 Dose: 88 mcg Documented by: [id number] Losartan Potassium (Cozaar) [facility] Stop: 05/13/19 08:59 Last Admin: 04/13/19 08:34 Dose: 50 mg Documented by: [id number] Magnesium Oxide (Mag-Ox) 400 mg PO BID [facility] Stop: 05/13/19 08:59 Last Admin: 04/13/19 08:33 Dose: 400 mg Documented by: [id number] Metoprolol Succinate (Toprol Xl) 50 mg [facility] [place] Stop: 05/13/19 08:59 Last Admin: 04/13/19 08:35 Dose: 50 mg Documented by: [id number] Miscellaneous (Order Awaiting Action) 1 ea N/A QS [facility] Stop: 05/13/19 07:59 Last Admin: 04/13/19 08:30 Dose: Not Given Documented by: [id number] Multivitamins (Multivitamin Tab) 1 tab PO [facility] Stop: 05/13/19 08:59 Last Admin: 04/13/19 08:33 Dose: 1 tab Documented by: [id number] Pantoprazole Sodium (Protonix) 40 mg PO [facility] Stop: 05/13/19 08:59 Last Admin: 04/13/19 08:34 Dose: 40 mg Documented by: [id number] Potassium Chloride (Klor-Con M20) 20 meq PO Q2D@0900 [facility] Stop: 05/13/19 08:59 Last Admin: 04/13/19 08:35 Dose: 20 meq Documented by: [id number] Propafenone HCl (Rythmol) 150 mg PO Q8 [facility] Stop: 05/13/19 05:59 Last Admin: 04/13/19 13:57 Dose: 150 mg Documented by: [id number] Admin: 04/13/19 06:00 Dose: 150 mg Documented by: [id number] Ranitidine HCl (Zantac) 150 mg PO BID [facility] Stop: 05/13/19 08:59 Last Admin: 04/13/19 08:34 Dose: 150 mg Documented by: [id number] Roflumilast (Daliresp) 500 mcg PO DAILY [facility] Stop: 05/13/19 08:59 Last Admin: 04/13/19 08:35 Dose: 500 mcg Documented by: [id number] Sertraline HCl (Zoloft) 25 mg [facility] [place] Stop: 05/13/19 08:59 Last Admin: 04/13/19 08:35 Dose: 25 mg Documented by: [id number] Vitamin D (Vitamin D3) 2,000 units PO QAM [facility] Stop: 05/13/19 08:59 Last Admin: 04/13/19 08:34 Dose: 2,000 units Documented by: [id number] Discontinued Medications Hydrocodone Bitart/Acetaminophen ([place] 5/325) 1 tab PO NOW STA Stop: 04/12/19 23:16 Last Admin: 04/12/19 23:28 Dose: 1 tab Documented by: [id number] Fentanyl Citrate (Fentanyl Citrate) 50 mcg IV NOW STA Stop: 04/12/19 19:29 Last Admin: 04/12/19 19:50 Dose: 50 mcg Documented by: [id number] Fentanyl Citrate (Fentanyl Citrate) 50 mcg IV NOW STA Stop: 04/12/19 21:53 Last Admin: 04/12/19 21:58 Dose: 50 mcg Documented by: [id number] Fentanyl Citrate (Fentanyl Citrate) Confirm Administered Dose 100 mcg .[address]OUTE .[facility] Stop: 04/12/19 21:56 Last Admin: 04/12/19 22:06 Dose: Not Given Documented by: [id number] Magnesium Sulfate/Dextrose (Magnesium Sulfate / D5w) 1 gm in 100 mls @ 100 mls/hr IV Q1H [facility] Stop: 04/13/19 09:44 Last Infusion: 04/13/19 11:15 Dose: 0 mls/hr Documented by: [id number] Admin: 04/13/19 10:08 Dose: 100 mls/hr Documented by: [id number] Infusion: 04/13/19 09:32 Dose: 100 mls/hr Documented by: [id number] Admin: 04/13/19 08:32 Dose: 100 mls/hr Documented by: [id number] Oxycodone HCl (Roxicodone Immediate Rel) 5 mg PO Q4H PRN PRN Reason: Pain Stop: 04/27/19 01:16 Last Admin: 04/13/19 10:13 Dose: 5 mg Documented by: [id number] Admin: 04/13/19 02:08 Dose: 5 mg Documented by: [id number] Medical Decision Making Differential Diagnosis Differential diagnosis: Etiologies such as fracture, dislocation, intra-abdominal, pneumothorax, intrathoracic , intracranial, neurologic, as well as other traumatic pathologies were entertained. Medical Records Attestation: I reviewed the patient's medical records. Home Medications Current Medication List: was personally reviewed by me Laboratory Data Attestation: I reviewed the patient's lab results. (No labs to review ) Result diagrams: 04/13/19 04:54 04/13/19 04:54 Imaging Data Radiologist's Impression: Radiology results as stated below per my review and the radiologist's interpretation: LEFT WRIST 2 VIEWS CLINICAL HISTORY: Fall with left wrist pain and swelling. FINDINGS: AP and crosstable lateral views of the left wrist are obtained. No prior studies are available for comparison at the time of dictation. The examination is degraded by suboptimal positioning. The skeletal structures are osteopenic. No fracture is seen. There is degenerative narrowing at the radiocarpal articulation. Moderate to advanced osteoarthritic change is seen at the first carpometacarpal articulation where there is bony sclerosis, overgrowth, and mild subluxation. Osteoarthritic change is also seen involving the metacarpophalangeal joints. Soft tissue swelling is present around the wrist. A ring is present on the fourth finger. IMPRESSION: 1. Soft tissue swelling with no radiographic evidence of acute fracture. 2. Osteopenia and arthritic change as above. Electronically signed by: Juan J Keen M.D. 04/12/2019 10:18 PM Dictated: 04/12/192215 Transcribed: 04/12/192215 LEFT SHOULDER 3 VIEWS; LEFT HUMERUS 2 VIEWS CLINICAL HISTORY: Fall with left shoulder pain. FINDINGS: 3 views of the left shoulder with AP and lateral views of the left humerus are obtained. Comparison is made to study dated 07/29/2017. The skeletal structures are osteopenic. There is no radiographic evidence of left shoulder fracture or dislocation. There is no radiographic evidence of left humeral fracture. Productive degenerative changes noted at the acromioclavicular joint. Mild superior subluxation of the humeral head suggests chronic rotator cuff injury. Degenerative sclerosis is noted in the greater tuberosity of the humeral head. The elbow joint is grossly preserved. The overlying soft tissues are normal in appearance. The visualized left lung parenchyma appears clear. Kyphoplasty cement is noted in the thoracic spine. IMPRESSION: 1. There is no radiographic evidence of left shoulder fracture or dislocation. 2. There is no radiographic evidence of left humeral fracture. 3. Superior subluxation of the humeral head suggests chronic rotator cuff injury. Electronically signed by: Juan J Keen M.D. 04/12/2019 9:54 PM Dictated: 04/12/192151 Transcribed: 04/12/192151 LEFT KNEE 3 VIEWS CLINICAL HISTORY: Fall with left knee pain. FINDINGS: AP, crosstable lateral, and sunrise views of the left knee are obtained. No prior studies are available for comparison at the time of dictation. The skeletal structures are osteopenic. No fracture is seen. There is moderate to advanced tricompartmental degenerative joint space narrowing, greatest in the medial patellofemoral compartments. There are marginal osteophytes, degenerative beaking of the tibial spine, and small patellar enthesophytes. There is no large joint effusion. Mild medial soft tissue swelling is suggested. IMPRESSION: Osteopenia and degenerative change as above with no acute bony abnormality identified. Electronically signed by: Juan J Keen M.D. 04/12/2019 9:56 PM Dictated: 04/12/192153 Transcribed: 04/12/192153 LEFT SHOULDER 3 VIEWS; LEFT HUMERUS 2 VIEWS CLINICAL HISTORY: Fall with left shoulder pain. FINDINGS: 3 views of the left shoulder with AP and lateral views of the left humerus are obtained. Comparison is made to study dated 07/29/2017. The skeletal structures are osteopenic. There is no radiographic evidence of left shoulder fracture or dislocation. There is no radiographic evidence of left humeral fracture. Productive degenerative changes noted at the acromioclavicular joint. Mild superior subluxation of the humeral head suggests chronic rotator cuff injury. Degenerative sclerosis is noted in the greater tuberosity of the humeral head. The elbow joint is grossly preserved. The overlying soft tissues are normal in appearance. The visualized left lung parenchyma appears clear. Kyphoplasty cement is noted in the thoracic spine. IMPRESSION: 1. There is no radiographic evidence of left shoulder fracture or dislocation. 2. There is no radiographic evidence of left humeral fracture. 3. Superior subluxation of the humeral head suggests chronic rotator cuff injury. Electronically signed by: Juan J Keen M.D. 04/12/2019 9:54 PM Dictated: 04/12/192151 Transcribed: 04/12/192151 SINGLE VIEW PELVIS; 2 VIEWS LEFT HIP CLINICAL HISTORY: Fall with pelvic and left hip pain. FINDINGS: An AP supine view of the pelvis with AP and frog-leg views of the left hip are obtained. Comparison is made to study dated 01/03/2018. The skeletal structures are osteopenic. There is no radiographic evidence of acute fracture involving the hips or bony pelvis. A bipolar right hip arthroplasty is in near- anatomic alignment. Moderate to advanced degenerative joint space narrowing is seen in the left hip. Sclerotic change is noted in the sacroiliac joints. Lumbosacral spondylosis is partially visualized. The overlying soft tissues are normal in appearance. Phleboliths are noted in the pelvis. There is no bowel obstruction. IMPRESSION: 1. There is no radiographic evidence of fracture involving the hips or bony pelvis. 2. Osteopenia, degenerative change, and right hip arthroplasty as above. Electronically signed by: Juan J Keen M.D. 04/12/2019 10:00 PM Dictated: 04/12/192156 Transcribed: 04/12/192156 CT SCAN OF THE BRAIN WITHOUT IV CONTRAST CLINICAL HISTORY: Fall. COMPARISON STUDY: CT of the brain dated 05/25/2018. TECHNIQUE: Unenhanced axial CT scan of the brain is performed from the vertex to the skull base. A dose lowering technique was utilized adhering to the principles of ALARA. CT DOSE: 969.37 mGy.cm FINDINGS: Brain parenchyma: There are age-related involutional changes noting mild subcortical and periventricular microangiopathic change. There is no hemorrhage, mass effect, or evidence of acute territorial ischemia by CT criteria. Street- white matter differentiation is preserved. No extra-axial fluid collection is seen. Ventricles, sulci, cisterns: Prominent secondary to involutional change. Intracranial vasculature: There is atherosclerotic calcification of the cavernous carotid arteries. Calvarium: The skeletal structures are osteopenic. No depressed calvarial fracture is seen. Sinuses and mastoids: Moderate mucosal thickening is noted in the sphenoid sinuses. The remaining visualized paranasal sinuses are clear. The mastoid air cells are well pneumatized. Orbits: The bony orbits are grossly intact. IMPRESSION: There is no hemorrhage, mass effect, or evidence of acute territorial ischemia by CT criteria. Electronically signed by: Juan J Keen M.D. 04/12/2019 8:38 PM Dictated: 04/12/192034 Transcribed: 04/12/192034 SINGLE VIEW CHEST CLINICAL HISTORY: Fall. FINDINGS: An AP, portable, supine chest radiograph is compared to study dated 02/24/2019 and correlated with chest CT dated 06/22/2017. The examination is degraded by portable technique and patient rotation. The heart is enlarged and there is atherosclerotic calcification of the thoracic aorta. The pulmonary vasculature is noncongested. Chronic interstitial thickening is similar to previous. There is bibasilar scarring/atelectasis. No airspace consolidation or large pleural effusion is identified. No pneumothorax is seen. The skeletal structures are osteopenic. There are healed right-sided rib fractures. A right shoulder arthroplasty is in place. Kyphoplasty cement projects over the upper thoracic spine. IMPRESSION: Cardiomegaly with no acute cardiopulmonary abnormality. Electronically signed by: Juan J Keen M.D. 04/12/2019 9:51 PM Dictated: 04/12/192149 Transcribed: 04/12/192149 CT SCAN OF THE CERVICAL SPINE CLINICAL HISTORY: Fall. COMPARISON STUDY: CT of the cervical spine dated 05/25/2018. TECHNIQUE: CT scan of the cervical spine is performed from the skull base to the upper thoracic spine. Images are reviewed in the axial, sagittal, and coronal planes. IV contrast was not administered for this examination. A dose lowering technique was utilized adhering to the principles of ALARA. The examination is degraded by streak artifact from the shoulders. FINDINGS: Skeletal structures: The skeletal structures are osteopenic. There is no evidence of fracture or subluxation involving the cervical spine. Left laminar defects at C5 and C6 are unchanged from prior studies and may be related to previous surgery. Vertebral body height and alignment are maintained. There is straightening of the cervical lordosis. Anterior osteophytes are seen throughout. The odontoid process and lateral masses are intact. The atlantoaxial articulation is preserved noting productive degenerative change. The spinous processes appear intact. There is moderate multilevel cervical spondylosis. Uncovertebral and facet arthropathy contribute to neural foraminal stenosis at several levels. Intervertebral discs: There is moderate disc space narrowing at C4-C5, C5-C6, and C6-C7. Central canal: Posterior disc osteophyte complexes at C4-C5, C5-C6, and C6-C7 likely contribute to mild multilevel acquired compromise of the central canal. Soft tissues: The prevertebral and paraspinous soft tissues are within normal limits. A 13 mm nodule is noted in the right thyroid lobe. There is atherosclerotic calcification of the carotid bulbs. Calvarium: The visualized calvarium at the skull base appears intact. Brain parenchyma: Partially visualized brain parenchyma the skull base is within normal limits noting age-related involutional change. Sinuses and mastoids: The visualized paranasal sinuses are clear. The mastoid air cells are well pneumatized. Lung apices: Emphysematous change is noted at the apices. Partially imaged apical lung parenchyma is clear as visualized. IMPRESSION: 1. There is no evidence of fracture or subluxation involving the cervical spine. 2. Osteopenia and multilevel spondylosis as above. Electronically signed by: Juan J Keen M.D. 04/12/2019 8:44 PM Dictated: 04/12/192037 Transcribed: 04/12/192037 Blood Pressure Blood Pressure Findings: Normal blood pressure Blood Pressure Disposition: did not require urgent referral MDM Narrative The patient is a 68 year old White female w/ PMHx of HTN, SOB, pneumonia, COPD exacerbation, hyperkalemia, anemia, sepsis, who presents to the ED w/ CC of an episode of a fall that happened 2 hours ago. Patient was seen and evaluated the bedside. The patient did suffer a fall to her left side. The patient could have imaging completed along with CT of the head and neck. The patient has negative films. The patient was still complaining of some mild shoulder pain. Patient was given additional pain medication given the concern for safety and her ability to go home the patient was admitted for additional pain control. Impression & Plan Fall, Left shoulder pain, Left wrist pain, Knee pain, Hip pain Discharge Plan Visit Data *Final* Discharge Date/Time: 04/13/19 01:10 Chief Complaint: Fall Stated Complaint: FALL ED Provider: Isidoro Sebastian Discharge Problem: Fall, Left shoulder pain, Left wrist pain, Knee pain, Hip pain Patient Disposition: Admitted As Inpatient Discharge Instructions Interventions: ED Discharge Assessment Last Done: 04/13/19 01:10 Discharge Problem: Fall Qualifiers: Encounter type: initial encounter Qualified Code(s): W19.XXXA - Unspecified fall, initial encounter Left shoulder pain Qualifiers: Chronicity: acute Qualified Code(s): M25.512 - Pain in left shoulder Knee pain Qualifiers: Chronicity: acute Laterality: left Qualified Code(s): M25.562 - Pain in left knee Hip pain Qualifiers: Laterality: left Qualified Code(s): M25.552 - Pain in left hip The scribe's documentation has been prepared under my direction and personally reviewed by me in its entirety. I confirm that the note above accurately reflects all work, treatment, procedures, and medical decision making performed by me.
[2019-04-13] MEDS: ATORVASTATIN 20 MG TAB PO SCH (21:39)
[2019-04-14 01:42] LABS: Basophils # (auto) 0.02 K/uL (0-0.2); Basophils % (auto) 0.1 %; Eosinophils # (auto) 0.23 K/uL (0-0.5); Eosinophils % (auto) 1.4 %; Hematocrit (blood only) 29.2 % (37-47); Hemoglobin 8.7 g/dL (12.0-16.0); Immature Granulocytes # (auto) 0.09 K/uL (0.00-0.02); Immature Granulocytes % (auto) 0.5 %; Lymphocytes # (auto) 1.42 K/uL (1.2-3.4); Lymphocytes % (auto) 8.5 %; Mean Corpuscular Hemoglobin 29.1 pg (25-34); Mean Corpuscular Hgb Conc 29.8 g/dL (32-36); Mean Corpuscular Volume 97.7 fL (80-100); Mean Platelet Volume 9.7 fL (7.4-10.4); Monocytes # (auto) 0.95 K/uL (0.11-0.59); Monocytes % (auto) 5.7 %; Neutrophils # (auto) 14.06 K/uL (1.4-6.5); Neutrophils % (auto) 83.8 %; Platelet Count 114 K/uL (130-400); RDW Coefficient of Variation 15.7 % (11.5-14.5); RDW Standard Deviation 56.5 fL (36.4-46.3); Red Blood Count 2.99 M/uL (4.2-5.4); White Blood Count 16.77 K/uL (4.8-10.8)
[2019-04-14 01:59] LABS: Albumin Level 2.7 gm/dl (3.4-5.0); Calcium 9.6 mg/dl (8.5-10.1); Creatinine Clr Calc Pharmacy 25.8 ml/min; Est GFR (African American) 23.1; Est GFR (Non-African American) 19.9; Magnesium 2.4 mg/dl (1.8-2.4); Potassium 4.5 mmol/L (3.5-5.1)
[2019-04-14 02:10] LABS: Albumin Globulin Ratio 0.7 (0.9-2); Bilirubin,Total 0.3 mg/dl (0.2-1); Globulin 4.1 gm/dl (2.5-4.0); Thyroid Stimulating Hormone 0.131 uIu/ml (0.300-4.500); Total Protein 6.8 gm/dl (6.4-8.2)
[2019-04-14 02:22] LABS: T4 Free Thyroxine 1.31 ng/dl (0.8-1.6)
[2019-04-14 02:29] LABS: Base Excess ABG 10.3 mEq/L (-9-1.8); HCO3 ABG 38 mmol/L (19-24); Oxygen Saturation ABG 89.7 % (90-95); PCO2 ABG 76 mmHg (35-46); PO2 ABG 63 mm/Hg (80-95); pH ABG 7.32 (7.35-7.45)
[2019-04-14 02:37] LABS: Allen Test Pos (Pos)
[2019-04-14] MEDS ORDERED: SODIUM CHLORIDE 0.9% 1000ML 1,000 ML IV SCH (04:00)
[2019-04-14] MEDS: PROPAFENONE HCL 150 MG TABLET PO SCH ×3 (05:54→21:36)
[2019-04-14] MEDS: ACETAMINOPHEN 325 MG TAB PO PRN ×3 (05:55→22:58)
[2019-04-14] MEDS: LEVOTHYROXINE SODIUM 88 MCG TABLET PO SCH (05:55)
[2019-04-14] MEDS: ROFLUMILAST 500 MCG TAB PO SCH (08:06)
[2019-04-14] MEDS: GABAPENTIN 600 MG TAB PO SCH ×3 (08:06→21:34)
[2019-04-14] MEDS: MAGNESIUM OXIDE 400 MG TAB PO SCH ×2 (08:07→21:33)
[2019-04-14] MEDS: METOPROLOL SUCC 50MG EXT REL TAB PO SCH (08:08)
[2019-04-14] MEDS: CHOLECALCIFEROL 1,000 UNITS TAB PO SCH (08:09)
[2019-04-14] MEDS: PANTOprazole 40 MG TAB PO SCH (08:10)
[2019-04-14] MEDS: MULTIVITAMIN TAB PO SCH (08:10)
[2019-04-14] MEDS: SERTRALINE HCL 50 MG TABLET PO SCH (08:11)
[2019-04-14] MEDS: allopurinoL 300 MG TAB PO SCH (08:12)
[2019-04-14] MEDS ORDERED: metOLazone 2.5 MG TABLET PO SCH (09:00)
[2019-04-14] MEDS: FLUTICASONE/SALMETEROL 100/50 (ADVAIR) 14 PUFF/1 INHALER INH SCH ×2 (10:22→21:32)
[2019-04-14 10:58] LABS: Hematocrit (blood only) 25.7 % (37-47); Hemoglobin 7.9 g/dL (12.0-16.0); Mean Corpuscular Hgb Conc 30.7 g/dL (32-36); Mean Corpuscular Volume 97.7 fL (80-100); Mean Platelet Volume 8.8 fL (7.4-10.4); Platelet Count 191 K/uL (130-400); RDW Coefficient of Variation 15.5 % (11.5-14.5); RDW Standard Deviation 55.1 fL (36.4-46.3); Red Blood Count 2.63 M/uL (4.2-5.4); White Blood Count 15.14 K/uL (4.8-10.8)
[2019-04-14 10:59] LABS: Base Excess VBG 8.5 mEq/L; Oxygen Saturation VBG 74.3 %; pH VBG 7.26 (7.36-7.41)
[2019-04-14 11:08] LABS: Basophils # (auto) 0.03 K/uL (0-0.2); Basophils % (auto) 0.2 %; Eosinophils # (auto) 0.29 K/uL (0-0.5); Eosinophils % (auto) 1.9 %; Immature Granulocytes # (auto) 0.03 K/uL (0.00-0.02); Immature Granulocytes % (auto) 0.2 %; Lymphocytes # (auto) 2.41 K/uL (1.2-3.4); Lymphocytes % (auto) 15.9 %; Monocytes % (auto) 7.9 %; Neutrophils # (auto) 11.18 K/uL (1.4-6.5); Neutrophils % (auto) 73.9 %
[2019-04-14 11:19] LABS: Albumin Level 2.6 gm/dl (3.4-5.0); BUN Creatinine Ratio 17.8 (10-20); Calcium 9.4 mg/dl (8.5-10.1); Creatinine Clr Calc Pharmacy 21.2 ml/min; Est GFR (African American) 18.2; Est GFR (Non-African American) 15.7; Potassium 4.1 mmol/L (3.5-5.1)
[2019-04-14 11:24] LABS: Albumin Globulin Ratio 0.6 (0.9-2); Bilirubin,Total 0.2 mg/dl (0.2-1); C Reactive Protein 7.08 mg/dl (0-0.29); Globulin 4.1 gm/dl (2.5-4.0); Phosphorus 4.9 mg/dl (2.5-4.9); Total Protein 6.7 gm/dl (6.4-8.2)
[2019-04-14 12:07] LABS: Basophilic Stippling 1+; Hypochromasia Present; Polychromasia 1+; Stomatocytes 1+
[2019-04-14] MEDS ORDERED: OXYCODONE HCL IR 5 MG TAB (IMMEDIATE RELEASE) PO STA (15:55)
--- NOTE | 2019-04-14 16:36 | Hospitalist Progress Note ---
Date of Service April 14, 2019 Assessment & Plan (1) Fall: -had mechanical fall at home when she tripped over her oxygen hose -PT/OT evaluations recommending inpatient physical therapy after the hospital stay after assessing gait and mobility -patient has been accepted to [facility] but needs to be medically optimized (2) Left shoulder pain: -CT scan: contusion along the superolateral left shoulder with trace subjacent hematoma tracking along the superficial aspect of the deltoid. No intramuscular hematoma -CT scan also shows Degenerative changes of the glenohumeral joint and Evidence of chronic rotator cuff tear. -acetaminophen prn for mild pain, PT/OT evaluations -have requested orthopedic consult to evaluate for rotator cuff tear Chronic respiratory failure with hypoxia -on nasal cannula oxygen 4 liters/min at home -currently at baseline chronic obstructive pulmonary -continue roflumilast -continue home inhalers Obesity hypoventilation Syndrome and on CPAP with sleep -can use home CPAP Hypertension Neuropathy -continue metoprolol -gabapentin TID -hold losartan chronic diastolic heart failure -on bumetanide BID and metolazone on home medication list. however patient developed SALBADOR during hospital course Acute Kidney on Chronic kidney disease stage IV -baseline creatinine 1.5 -creatinine increased from 1.58 from 04/13/19 to 2.38 on 04/14/19 -IV fluids have been given -recent creatinine 2.9 -will pause IV fluids for now to avoid causing acute CHF -will check creatinine kinase -send urine analysis -if normal urine analysis and if normal creatinine kinase then an alternative reason why patient have acute kidney injury may be that patient does not take the diuretics at home and recent hospital diuretic may cause the SALBADOR. discussed with jen's daughter by telephone to bring in patient's medications from home -recheck renal function in AM of 04/15/19 History of paroxysmal atrial fibrillation -on Rythmol and aspirin -not a candidate for anticoagulation secondary to history of gastrointestinal bleed. Hyperlipidemia -on statin Chronic anemia -monitor CBC Hypothyroidism -home medication of levothyroxine 88 mcg at home -TSH has been chronically low, the free T4 is normal -hold levothyroxine for no Hypomagnesemia -serum magnesium 1.6 on admission; hypomagnesemia was treated and recent serum magnesium at goal History of peptic ulcer disease. -Last esophagogastroduodenoscopy in December 2018 showing non bleeding gastric ulcers -on ranitidine Deep venous thrombosis prophylaxis, sequential compression device Full Code daughter Noreen [phone] Subjective Overnight patient had confusion. possible could be from pain medications. when assessed by nocturnalist, patient found on labs to have acute kidney injury and was started on IV fluids. patient has had complaints of pain of left shoulder and sometimes in other areas of the body. have encouraged nursing staff that patient is morbidly obese to give assistance to get her from bed to chair. They have now helped her to the chair patient denies dizziness or lightheadedness. no vomiting. there is leukocytosis but no fever. Physical Exam Constitutional: + obese Eyes: PERRL, conjunctivae normal, anicteric sclerae EOM intact bilaterally ENMT: external ear and nose normal, oropharynx normal Neck: normal visual inspection Respiratory: normal respiratory effort, lungs clear to auscultation Cardiovascular: Rate/Rhythm: regular rate and regular rhythm Gastrointestinal (Abdomen): normal bowel sounds, soft, nontender, no hepat osplenomegaly Musculoskeletal: Head/Neck/Chest: normocephalic and head atraumatic Neurologic: PERRL, EOMI, accommodation nl, no face palsy, no dysarthria Psychiatric: A+Ox3, euthymic affect Results & Data Vital Signs (Past 12 Hours) Vital Signs Temp Pulse Resp BP Pulse Ox 04/14/19 15:22 36.9 C 77 18 107/63 97 04/14/19 14:14 110/65 04/14/19 07:21 36.9 C 76 20 95/53 L 97 (1) Left shoulder pain Chronicity: acute Qualified Code(s): M25.512 - Pain in left shoulder (2) Fall Encounter type: initial encounter Qualified Code(s): W19.XXXA - Unspecified fall, initial encounter
--- NOTE | 2019-04-14 17:44 | Orthopedic Consultation ---
Date of Consultation April 14, 2019 Assessment & Plan (1) Left shoulder pain: Possible acute on chronic shoulder DJD Possible acute vs. old rotator cuff tear with arthropathy Discussed plan with the patient and will discuss the case with Dr. Lemus. Will consider corticosteroid injection vs. possible MRI if the rotator cuff needs to be evaluated better. Continue pain control for the time being. May consider a sling if the pain becomes too significant. Thank you for the consultation. History of Present Illness Reason for Consultation: left shoulder pain Attending Physician: Chirag Patel MD History of Present Illness This is a patient who sustained a fall onto her left side ~3 days ago and injured her left shoulder. She states the pain is everywhere in the shoulder--she does not have a specific area that is more painful than another. She has limited use of the shoulder secondary to pain. Her ROM is decreased significantly. Allergies Allergy/AdvReac Type Severity Reaction Status Date / Time adhesive Allergy Severe RED RASH Verified 04/12/19 19:37 latex AdvReac Mild TAPE-SORE Verified 04/12/19 19:37 morphine AdvReac Mild DELUSIONS Verified 04/12/19 19:37 Home Medications Home Medications Medication Instructions Recorded Confirmed Type Breo Ellipta 1 inh INHALATION DAILY 03/12/18 04/12/19 History Daliresp 500 mcg PO DAILY 03/12/18 04/12/19 History allopurinol 300 mg PO QAM 03/12/18 04/12/19 History atorvastatin 20 mg PO QPM 03/12/18 04/12/19 History bumetanide 1 mg PO BID 03/12/18 04/12/19 History cholecalciferol (vitamin D3) 2,000 unit PO QAM 03/12/18 04/12/19 History [Vitamin D3] gabapentin 600 mg PO TID 03/12/18 04/12/19 History levothyroxine 88 mcg PO DAILYBB 03/12/18 04/12/19 History losartan 50 mg PO QAM 03/12/18 04/12/19 History metolazone 2.5 mg PO MOFR 03/12/18 04/12/19 History metoprolol succinate 50 mg PO QAM 03/12/18 04/12/19 History multivitamin 1 tab PO QAM 03/12/18 04/12/19 History potassium chloride 20 meq PO Q OTHER DAY 03/12/18 04/12/19 History propafenone 150 mg PO Q8H 03/12/18 04/12/19 History ranitidine HCl 150 mg PO BID 03/12/18 04/12/19 History sertraline [Zoloft] 25 mg PO QAM 03/12/18 04/12/19 History acetaminophen [Tylenol] 650 mg PO Q4 PRN 08/07/18 04/12/19 History albuterol sulfate 2.5 mg INHALATION Q6 PRN 08/07/18 04/12/19 History ondansetron 4 mg PO Q6H PRN #14 tab 02/24/19 04/12/19 Rx Patient History Medical History Chronic respiratory failure with hypoxia, on home O2 therapy (Chronic) Anemia (Chronic) Chronic anemia (Chronic) Diarrhea DVT prophylaxis Diastolic CHF, chronic (Chronic) Acute bronchitis COPD exacerbation GERD (gastroesophageal reflux disease) (Chronic) Depression (Chronic) Myocardial infarction (Chronic) "per patient, details unknown" COPD (chronic obstructive pulmonary disease) (Chronic) Paroxysmal a-fib (Chronic) HTN (hypertension) (Chronic) Dyslipidemia (Chronic) EVONNE (iron deficiency anemia) (Chronic) CKD (chronic kidney disease), stage IV (Chronic) Asthma (Chronic) Lumbar spinal stenosis (Chronic) Morbid obesity (Chronic) Obesity hypoventilation syndrome (Chronic) Chronic respiratory failure (Chronic) Surgical History S/P cervical spinal fusion (Chronic) History of appendectomy (Chronic) Hx of cholecystectomy (Chronic) S/P wrist surgery (Chronic) 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) Family History Father Trauma Mother Diabetes Cerebral aneurysm Daughter Bipolar 1 disorder Social History Preferred Language: Wallisian Communication Ability: Effective Nursery Hand Required: No Beliefs That Will Affect Care: None marital status: Current Living Situation: Family Current Living Situation Comment: Lives with her daughter - Noreen Other Information That Helps Us Care for You: No Feels Safe at Home: Yes Safety Concerns: Feels Safe At This Time Smoking Status: Former smoker Tobacco Type: cigarettes ; Cigarettes Per Day: 2 packs ; Second Hand Exposure: No ; Hx Alcohol Use: No Hx Substance Use: No Physical Exam Constitutional: WD/WN, vitals as above ENMT: external ear and nose normal, oropharynx normal Neck: trachea midline, no thyromegaly Musculoskeletal: Shoulder: + limited ROM (left shoulder); no deformity, no skin erythema, no ecchymosis and no surgical incision Left shoulder exam is limited secondary to pain. No obvious swelling. Strength is limited. Abduction to ~30 degrees. Flexion to ~60 degrees. Internal and external rotation are nearly full with her arm at her side. She has some pain at the endpoints of internal/external rotation. NV intact LUE. Skin: no rashes, warm and dry Neurologic: normal touch/pain/proprioception Psychiatric: A+Ox3, euthymic affect Results & Data Vital Signs (Past 12 Hours) Vital Signs Temp Pulse Resp BP Pulse Ox 04/14/19 15:22 36.9 C 77 18 107/63 97 04/14/19 14:14 110/65 04/14/19 07:21 36.9 C 76 20 95/53 L 97 (1) Left shoulder pain Chronicity: acute Qualified Code(s): M25.512 - Pain in left shoulder
[2019-04-14 19:13] LABS: Appearance Urine Clear (Clear); Bilirubin Urine Negative (Negative); Blood Urine Negative (Negative); Color Urine Yellow; Glucose Urine UA Negative (Negative); Ketones Urine Trace (Negative); Leukocyte Esterase Urine Negative (Negative); Nitrite Urine Negative (Negative); Protein Urine Negative (Negative); Specific Gravity Urine 1.021 (1.000-1.030); Urobilinogen Urine Negative (Negative)
[2019-04-14] MEDS: ATORVASTATIN 20 MG TAB PO SCH (21:33)
--- NOTE | 2019-04-14 23:12 | Magnetic Resonance Report ---
LEFT SHOULDER MRI HISTORY: Assess L shoulder for rotator cuff tear, occult fx TECHNIQUE: Multiplanar multisequence MRI of the left shoulder was performed without contrast. COMPARISON STUDY: Left shoulder CT 04/13/2019. FINDINGS: Suboptimal study due to motion artifact. AC joint: Mild AC joint arthrosis demonstrated by marginal osteophytes and joint space narrowing. Rotator cuff: Complete full-thickness tear of the supraspinatus tendon with up to 4 cm of retraction. There is also a complete full-thickness tear of the the infraspinatus with up to 3.6 cm of retractio n. There is edema/hemorrhage both within and surrounding the infraspinatus muscle and the torn tendon consistent with an acute injury. There is a partial tear of the teres minor tendon. The subscapulari s tendon is thinned but intact suggesting a partial tear. Near complete fatty atrophy of the subscapu damian, supraspinatus, and infraspinatus muscles with mild fatty atrophy of the teres minor muscle. Labrum: Not well visualized but appears grossly intact. Biceps tendon: Increased signal within the proximal long head of the biceps tendon consistent with a tendinopathy. Bones: No acute fracture or dislocation. Subchondral cystic change within the humeral head and glenoi d. Cartilage: Moderate to severe cartilage thinning within the humeral head and superior glenoid consist ent with osteoarthritis. Miscellaneous: Fluid within the subacromial/subdeltoid space due to the full-thickness rotator cuff t ear. IMPRESSION: 1. Large full-thickness rotator cuff tear as described above with edema/hemorrhage both within and hannon rrounding the infraspinatus muscle consistent with an acute injury. 2. Moderate to severe osteoarthritis at the clinic humeral joint. 3. Marked fatty atrophy of the rotator cuff muscles. Electronically signed by: Henry Bourne M.D. 04/14/2019 11:11 PM
[2019-04-15 05:08] LABS: Basophils # (auto) 0.02 K/uL (0-0.2); Basophils % (auto) 0.2 %; Eosinophils % (auto) 2.4 %; Hematocrit (blood only) 25.5 % (37-47); Hemoglobin 7.8 g/dL (12.0-16.0); Immature Granulocytes # (auto) 0.02 K/uL (0.00-0.02); Immature Granulocytes % (auto) 0.2 %; Lymphocytes # (auto) 1.83 K/uL (1.2-3.4); Lymphocytes % (auto) 14.8 %; Mean Corpuscular Hemoglobin 29.9 pg (25-34); Mean Corpuscular Hgb Conc 30.6 g/dL (32-36); Mean Corpuscular Volume 97.7 fL (80-100); Mean Platelet Volume 9.4 fL (7.4-10.4); Monocytes # (auto) 1.13 K/uL (0.11-0.59); Monocytes % (auto) 9.1 %; Neutrophils % (auto) 73.3 %; Platelet Count 177 K/uL (130-400); RDW Coefficient of Variation 15.6 % (11.5-14.5); RDW Standard Deviation 55.4 fL (36.4-46.3); Red Blood Count 2.61 M/uL (4.2-5.4)
[2019-04-15] MEDS: ACETAMINOPHEN 325 MG TAB PO PRN ×2 (05:15→22:22)
[2019-04-15 05:34] LABS: Basophilic Stippling 1+; Stomatocytes 1+
[2019-04-15 05:35] LABS: Albumin Globulin Ratio 0.6 (0.9-2); Albumin Level 2.4 gm/dl (3.4-5.0); BUN Creatinine Ratio 22.8 (10-20); Bilirubin,Total 0.2 mg/dl (0.2-1); Calcium 9.1 mg/dl (8.5-10.1); Creatinine Clr Calc Pharmacy 25.5 ml/min; Est GFR (African American) 22.8; Est GFR (Non-African American) 19.7; Total Protein 6.4 gm/dl (6.4-8.2)
[2019-04-15] MEDS: PROPAFENONE HCL 150 MG TABLET PO SCH ×3 (06:01→22:19)
[2019-04-15] MEDS: SODIUM CHLORIDE 0.9% 1000ML 1,000 ML IV SCH ×2 (08:27→20:29)
--- NOTE | 2019-04-15 08:30 | Hospitalist Progress Note ---
Date of Service April 15, 2019 Assessment & Plan (1) Fall: -had mechanical fall at home when she tripped over her oxygen hose -PT/OT evaluations recommending inpatient physical therapy after the hospital stay after assessing gait and mobility -patient has been accepted to [facility] but needs to be medically optimized (2) Left shoulder pain: -CT scan: contusion along the superolateral left shoulder with trace subjacent hematoma tracking along the superficial aspect of the deltoid. No intramuscular hematoma -CT scan also shows Degenerative changes of the glenohumeral joint and Evidence of chronic rotator cuff tear. -acetaminophen prn for mild pain, PT/OT evaluations -have requested orthopedic consult to evaluate for rotator cuff tear and orthopedic consult is following the patient Chronic respiratory failure with hypoxia -on nasal cannula oxygen 4 liters/min at home -currently at baseline chronic obstructive pulmonary -continue roflumilast -continue home inhalers Obesity hypoventilation Syndrome and on CPAP with sleep -can use home CPAP Hypertension Neuropathy -continue metoprolol -gabapentin TID -hold losartan for now and monitor renal function chronic diastolic heart failure -on bumetanide BID and metolazone on home medication list. however patient developed SALBADOR during hospital course Acute Kidney on Chronic kidney disease stage IV -baseline creatinine 1.5 -creatinine increased from 1.58 from 04/13/19 to 2.38 on 04/14/19; chart review does not show any IV contrast on admission imaging -IV fluids have been given. creatinine peaked as 2.9 on 04/14/19; creatinine kinase is normal, normal urine analysis -as of 04/15/19 creatinine downtrending to -recent creatinine 2.41 -was assumed that perhaps patient was not taking diuretics at home. But as per nurse, patient's daughter brought in patient's home medication and verifies with hospital list -continue to hold diuretics and ARB for now History of paroxysmal atrial fibrillation -on Rythmol and aspirin -not a candidate for anticoagulation secondary to history of gastrointestinal bleed. Hyperlipidemia -on statin Chronic anemia -monitor CBC Hypothyroidism -home medication of levothyroxine 88 mcg at home -TSH has been chronically low, the free T4 is normal -will resume home dose levothyroxine tomorrow Hypomagnesemia -serum magnesium 1.6 on admission; hypomagnesemia was treated and recent serum magnesium at goal History of peptic ulcer disease. -Last esophagogastroduodenoscopy in December 2018 showing non bleeding gastric ulcers -on ranitidine Deep venous thrombosis prophylaxis, sequential compression device Full Code daughter Noreen [phone] Subjective as per nurse, patient's daughter brought in patient's home medication and verifies with hospital list. no acute events overnight. patient was using CPAP until 5 AM this morning. seen today sleeping with nasal cannula. she is arousable but appears still sleepy. she is not in acute pain. she does not voice complaints of symptoms when asked Physical Exam Constitutional: + obese Eyes: PERRL, conjunctivae normal, anicteric sclerae EOM intact bilaterally ENMT: external ear and nose normal, oropharynx normal Neck: normal visual inspection Respiratory: normal respiratory effort, lungs clear to auscultation Cardiovascular: Rate/Rhythm: regular rate and regular rhythm Gastrointestinal (Abdomen): normal bowel sounds, soft, nontender, no hepatosplenomegaly Musculoskeletal: Head/Neck/Chest: normocephalic and head atraumatic Neurologic: PERRL, EOMI, accommodation nl, no face palsy, no dysarthria Psychiatric: A+Ox3, euthymic affect Results & Data Vital Signs (Past 12 Hours) Vital Signs Temp Pulse Resp BP Pulse Ox 04/15/19 07:15 36.5 C 74 18 113/65 99 04/14/19 23:52 36.7 C 90 20 135/70 97 (1) Fall Encounter type: initial encounter Qualified Code(s): W19.XXXA - Unspecified fall, initial encounter (2) Left shoulder pain Chronicity: acute Qualified Code(s): M25.512 - Pain in left shoulder
[2019-04-15] MEDS: PANTOprazole 40 MG TAB PO SCH (08:31)
[2019-04-15] MEDS: METOPROLOL SUCC 50MG EXT REL TAB PO SCH (08:31)
[2019-04-15] MEDS: MAGNESIUM OXIDE 400 MG TAB PO SCH ×2 (08:31→20:24)
[2019-04-15] MEDS: MULTIVITAMIN TAB PO SCH (08:31)
[2019-04-15] MEDS: CHOLECALCIFEROL 1,000 UNITS TAB PO SCH (08:31)
[2019-04-15] MEDS: GABAPENTIN 600 MG TAB PO SCH ×3 (08:31→20:26)
[2019-04-15] MEDS: SERTRALINE HCL 50 MG TABLET PO SCH (08:32)
[2019-04-15] MEDS: allopurinoL 300 MG TAB PO SCH (08:32)
[2019-04-15] MEDS: FLUTICASONE/SALMETEROL 100/50 (ADVAIR) 14 PUFF/1 INHALER INH SCH ×2 (08:32→20:23)
[2019-04-15] MEDS: ROFLUMILAST 500 MCG TAB PO SCH (08:33)
--- NOTE | 2019-04-15 10:30 | Orthopedic Progress Note ---
Date of Service April 15, 2019 Assessment & Plan (1) Left shoulder pain: Acute on chronic shoulder DJD S/P fall Acute on chronic rotator cuff tear with rotator cuff arthropathy confirmed with MRI Apr 14, 2019 Continue pain control. Sling prn. Will consider steroid injection if pain otherwise unmanageable. Subjective Left shoulder with continued pain worsened with movement and activity. Pain improved with pain meds. Physical Exam Physical Exam: Left shoulder with diffuse tenderness to palpation, Pain with AROM/PROM left shoulder. + Empty can. + Drop arm. + Yergason's. + Speed's. + Belly press. Cap refill brisk. Skin intact. Results & Data Vital Signs (Past 12 Hours) Vital Signs Temp Pulse Resp BP Pulse Ox 04/15/19 07:15 36.5 C 74 18 113/65 99 04/14/19 23:52 36.7 C 90 20 135/70 97 (1) Left shoulder pain Chronicity: acute Qualified Code(s): M25.512 - Pain in left shoulder
[2019-04-15] MEDS: TRAMADOL HCL 50 MG TABLET PO PRN (16:08)
[2019-04-15] MEDS: OXYCODONE HCL IR 5 MG TAB (IMMEDIATE RELEASE) PO PRN (20:06)
[2019-04-15] MEDS: ATORVASTATIN 20 MG TAB PO SCH (20:24)
[2019-04-16] MEDS: TRAMADOL HCL 50 MG TABLET PO PRN ×3 (00:16→17:26)
[2019-04-16] MEDS: OXYCODONE HCL IR 5 MG TAB (IMMEDIATE RELEASE) PO PRN ×3 (05:31→22:37)
[2019-04-16] MEDS: PROPAFENONE HCL 150 MG TABLET PO SCH ×3 (05:33→22:35)
[2019-04-16 05:45] LABS: Basophils # (auto) 0.02 K/uL (0-0.2); Basophils % (auto) 0.2 %; Eosinophils # (auto) 0.31 K/uL (0-0.5); Eosinophils % (auto) 2.8 %; Hematocrit (blood only) 24.8 % (37-47); Hemoglobin 7.4 g/dL (12.0-16.0); Immature Granulocytes # (auto) 0.01 K/uL (0.00-0.02); Immature Granulocytes % (auto) 0.1 %; Lymphocytes # (auto) 1.68 K/uL (1.2-3.4); Lymphocytes % (auto) 15.1 %; Mean Corpuscular Hemoglobin 29.4 pg (25-34); Mean Corpuscular Hgb Conc 29.8 g/dL (32-36); Mean Corpuscular Volume 98.4 fL (80-100); Mean Platelet Volume 9.3 fL (7.4-10.4); Monocytes # (auto) 0.89 K/uL (0.11-0.59); Neutrophils # (auto) 8.22 K/uL (1.4-6.5); Neutrophils % (auto) 73.8 %; Platelet Count 170 K/uL (130-400); RDW Coefficient of Variation 15.5 % (11.5-14.5); RDW Standard Deviation 55.3 fL (36.4-46.3); Red Blood Count 2.52 M/uL (4.2-5.4); White Blood Count 11.13 K/uL (4.8-10.8)
[2019-04-16 06:09] LABS: Basophilic Stippling 1+; Stomatocytes 1+
[2019-04-16 06:21] LABS: Albumin Level 2.3 gm/dl (3.4-5.0); BUN Creatinine Ratio 24.7 (10-20); Bilirubin,Total 0.2 mg/dl (0.2-1); Calcium 8.9 mg/dl (8.5-10.1); Est GFR (Non-African American) 32.8; Potassium 4.2 mmol/L (3.5-5.1)
[2019-04-16 06:29] LABS: Albumin Globulin Ratio 0.6 (0.9-2); Ferritin 935.3 ng/ml (8-388); Total Protein 6.3 gm/dl (6.4-8.2)
[2019-04-16] MEDS: GABAPENTIN 600 MG TAB PO SCH ×3 (08:57→20:17)
[2019-04-16] MEDS: SERTRALINE HCL 50 MG TABLET PO SCH (08:57)
[2019-04-16] MEDS: METOPROLOL SUCC 50MG EXT REL TAB PO SCH (08:58)
[2019-04-16] MEDS: MAGNESIUM OXIDE 400 MG TAB PO SCH ×2 (08:58→20:16)
[2019-04-16] MEDS: allopurinoL 300 MG TAB PO SCH (08:59)
[2019-04-16] MEDS: PANTOprazole 40 MG TAB PO SCH (08:59)
[2019-04-16] MEDS: MULTIVITAMIN TAB PO SCH (08:59)
[2019-04-16] MEDS: CHOLECALCIFEROL 1,000 UNITS TAB PO SCH (08:59)
[2019-04-16] MEDS: ROFLUMILAST 500 MCG TAB PO SCH (09:00)
[2019-04-16] MEDS: FLUTICASONE/SALMETEROL 100/50 (ADVAIR) 14 PUFF/1 INHALER INH SCH ×2 (09:01→20:18)
--- NOTE | 2019-04-16 10:23 | Hospitalist Progress Note ---
Date of Service April 16, 2019 Assessment & Plan (1) Fall: -had mechanical fall at home when she tripped over her oxygen hose -PT/OT evaluations recommending inpatient physical therapy after the hospital stay after assessing gait and mobility -patient has been accepted to [facility] but needs to be medically optimized (2) Left shoulder pain: -CT scan: contusion along the superolateral left shoulder with trace subjacent hematoma tracking along the superficial aspect of the deltoid. No intramuscular hematoma -CT scan also shows Degenerative changes of the glenohumeral joint and Evidence of chronic rotator cuff tear. -acetaminophen prn for mild pain, PT/OT evaluations -have requested orthopedic consult to evaluate for rotator cuff tear and orthopedic consult is following the patient Chronic respiratory failure with hypoxia -on nasal cannula oxygen 4 liters/min at home -currently at baseline chronic obstructive pulmonary -continue roflumilast -continue home inhalers (Breo is substituted as Advair while in the hospital) Obesity hypoventilation Syndrome and on CPAP with sleep -can use home CPAP Hypertension Neuropathy -continue metoprolol -gabapentin TID chronic diastolic heart failure -on bumetanide BID and metolazone on home medication list. however patient developed SALBADOR during hospital course Acute Kidney on Chronic kidney disease stage IV -baseline creatinine 1.5 -creatinine increased from 1.58 from 04/13/19 to 2.38 on 04/14/19; chart review does not show any IV contrast on admission imaging -IV fluids have been given. creatinine peaked as 2.9 on 04/14/19; creatinine kinase is normal, normal urine analysis -was assumed that perhaps patient was not taking diuretics at home. But as per nurse, patient's daughter brought in patient's home medication and verifies with hospital list -creatinine is 1.58 on 04/16/19, stop IV fluids -recheck creatinine on 04/17/19 -resume losartan as low dose 25 mg daily -continue to hold diuretics History of paroxysmal atrial fibrillation -on Rythmol and aspirin -not a candidate for anticoagulation secondary to history of gastrointestinal bleed. Hyperlipidemia -on statin Hypothyroidism -home medication of levothyroxine 88 mcg at home -TSH has been chronically low, the free T4 is normal -continue levoythroxine Hypomagnesemia -serum magnesium 1.6 on admission; hypomagnesemia was treated and recent serum magnesium at goal Chronic anemia -monitor CBC, CBC mildly downtrended likely from IV fluids and hospital blood draws -send FOBT History of peptic ulcer disease. -Last esophagogastroduodenoscopy in December 2018 showing non bleeding gastric ulcers -on ranitidine Deep venous thrombosis prophylaxis, sequential compression device Full Code daughter Noreen [phone] Subjective Patient seen and examined this AM. She is breathing on nasal cannula and reports hr breathing is at baseline. she reports pain of left shoulder and left wrist. She is not in acute distress. She denies pain elsewhere. She reports she has been able to make bowel movement and make the urine. Creatinine trending to baseline. IV fluids are stopped Physical Exam Constitutional: + obese Eyes: PERRL, conjunctivae normal, anicteric sclerae EOM intact bilaterally ENMT: external ear and nose normal, oropharynx normal Neck: normal visual inspection Respiratory: normal respiratory effort, lungs clear to auscultation Cardiovascular: Rate/Rhythm: regular rate and regular rhythm Gastrointestinal (Abdomen): normal bowel sounds, soft, nontender, no hepatosplenomegaly Musculoskeletal: Head/Neck/Chest: normocephalic and head atraumatic Neurologic: PERRL, EOMI, accommodation nl, no face palsy, no dysarthria Psychiatric: A+Ox3, euthymic affect Results & Data Vital Signs (Past 12 Hours) Vital Signs Temp Pulse Resp BP Pulse Ox 04/16/19 07:12 36.8 C 79 18 122/72 100 04/15/19 22:25 36.7 C 90 21 120/70 98 (1) Fall Encounter type: initial encounter Qualified Code(s): W19.XXXA - Unspecified fall, initial encounter (2) Left shoulder pain Chronicity: acute Qualified Code(s): M25.512 - Pain in left shoulder
[2019-04-16] MEDS: LOSARTAN POTASSIUM 25 MG TAB PO SCH (12:31)
[2019-04-16] MEDS: ACETAMINOPHEN 325 MG TAB PO PRN (16:12)
[2019-04-16] MEDS: ATORVASTATIN 20 MG TAB PO SCH (20:16)
[2019-04-17] MEDS: TRAMADOL HCL 50 MG TABLET PO PRN ×2 (02:26→10:54)
[2019-04-17] MEDS: PROPAFENONE HCL 150 MG TABLET PO SCH ×2 (06:10→14:06)
[2019-04-17 06:35] LABS: Basophils # (auto) 0.02 K/uL (0-0.2); Basophils % (auto) 0.2 %; Eosinophils # (auto) 0.32 K/uL (0-0.5); Eosinophils % (auto) 2.7 %; Hematocrit (blood only) 25.5 % (37-47); Hemoglobin 7.4 g/dL (12.0-16.0); Immature Granulocytes # (auto) 0.12 K/uL (0.00-0.02); Lymphocytes # (auto) 1.57 K/uL (1.2-3.4); Lymphocytes % (auto) 13.2 %; Mean Corpuscular Hemoglobin 28.7 pg (25-34); Mean Corpuscular Volume 98.8 fL (80-100); Mean Platelet Volume 9.4 fL (7.4-10.4); Monocytes # (auto) 0.93 K/uL (0.11-0.59); Monocytes % (auto) 7.8 %; Neutrophils # (auto) 8.95 K/uL (1.4-6.5); Neutrophils % (auto) 75.1 %; Platelet Count 192 K/uL (130-400); RDW Coefficient of Variation 15.6 % (11.5-14.5); RDW Standard Deviation 56.4 fL (36.4-46.3); Red Blood Count 2.58 M/uL (4.2-5.4); White Blood Count 11.91 K/uL (4.8-10.8)
[2019-04-17 07:09] LABS: Basophilic Stippling 1+; Stomatocytes 1+
[2019-04-17 07:10] LABS: BUN Creatinine Ratio 24.4 (10-20); Calcium 9.5 mg/dl (8.5-10.1); Creatinine Clr Calc Pharmacy 49.3 ml/min; Est GFR (African American) 50.5; Est GFR (Non-African American) 43.5; Potassium 4.3 mmol/L (3.5-5.1)
[2019-04-17] MEDS: FLUTICASONE/SALMETEROL 100/50 (ADVAIR) 14 PUFF/1 INHALER INH SCH (08:19)
[2019-04-17] MEDS: MULTIVITAMIN TAB PO SCH (08:20)
[2019-04-17] MEDS: LOSARTAN POTASSIUM 25 MG TAB PO SCH (08:20)
[2019-04-17] MEDS: ROFLUMILAST 500 MCG TAB PO SCH (08:20)
[2019-04-17] MEDS: MAGNESIUM OXIDE 400 MG TAB PO SCH (08:20)
[2019-04-17] MEDS: SERTRALINE HCL 50 MG TABLET PO SCH (08:21)
[2019-04-17] MEDS: PANTOprazole 40 MG TAB PO SCH (08:21)
[2019-04-17] MEDS: METOPROLOL SUCC 50MG EXT REL TAB PO SCH (08:21)
[2019-04-17] MEDS: CHOLECALCIFEROL 1,000 UNITS TAB PO SCH (08:21)
[2019-04-17] MEDS: GABAPENTIN 600 MG TAB PO SCH ×2 (08:21→14:06)
[2019-04-17] MEDS: allopurinoL 300 MG TAB PO SCH (08:22)
[2019-04-17] MEDS ORDERED: MICONAZOLE NITRATE POWDER 43 GM ONE (08:36)
[2019-04-17] MEDS ORDERED: BUMETANIDE 1 MG TAB PO SCH (09:45)
--- NOTE | 2019-04-17 13:32 | Hospitalist Progress Note ---
Date of Service April 17, 2019 Assessment & Plan (1) Fall: -had mechanical fall at home when she tripped over her oxygen hose -PT/OT evaluations recommending inpatient physical therapy after the hospital stay after assessing gait and mobility -patient will be discharged to [facility] on 04/17/19 after inpatient stay for pain control and medical optimization (2) Left shoulder pain: Left shoulder pain (Acute on chronic rotator cuff tear with rotator cuff arthropathy) -CT scan: contusion along the superolateral left shoulder with trace subjacent hematoma tracking along the superficial aspect of the deltoid. No intramuscular hematoma -CT scan also shows Degenerative changes of the glenohumeral joint and Evidence of chronic rotator cuff tear. -In regards to left shoulder pain with left wrist pain, patient was evaluated by [facility] group Dr. Lemus for Acute on chronic rotator cuff tear with rotator cuff arthropathy. There is no recommendation for orthopedic surgery. They advised conservative management versus left shoulder sling or corticosteroid injection if pain is not controlled. If patient cannot perform well at physical rehabilitation center then patient should be scheduled visit to [facility] [address], [place] [address] -Patient is prescribed on discharge pain medication of acetaminophen 325 mg q6 hours as needed for mild pain or if fever. Because patient has large body habitus, the 325 mg dosing may not be sufficient so: for moderate pain patient may take tramadol 50 mg every 8 hours as need (16 tablet prescription prescribed) ; for severe pain patient may take oxycodone 2.5 mg every 8 hours as need (16 tablet prescription prescribed) -Patient also has had multiple hospitalizations for respiratory issues so excessive narcotics should be avoided -Patient should not take Nonsteroidal anti-inflammatory drugs (NSAIDs) for pain control because of anemia Chronic respiratory failure with hypoxia -on nasal cannula oxygen 4 liters/min at home -currently at baseline chronic obstructive pulmonary -continue roflumilast -continue home inhalers (Breo is substituted as Advair while in the hospital) Obesity hypoventilation Syndrome and on CPAP with sleep -Patient sleep with CPAP at night and uses nasal cannula supplementary oxygen during the day time Hypertension Neuropathy -continue metoprolol -gabapentin TID chronic diastolic heart failure -on bumetanide BID and metolazone on home medication list. however patient developed Acute kidney injury during hospital course -patient is now being resumed on reduced diuretics Acute Kidney on Chronic kidney disease stage IV -baseline creatinine 1.5 -creatinine increased from 1.58 from 04/13/19 to 2.38 on 04/14/19; chart review does not show any IV contrast on admission imaging -IV fluids have been given. creatinine peaked as 2.9 on 04/14/19; creatinine kinase is normal, normal urine analysis -was assumed that perhaps patient was not taking diuretics at home. But as per nurse, patient's daughter brought in patient's home medication and verifies with hospital list -creatinine is 1.58 on 04/16/19, stop IV fluids -recheck creatinine on 04/17/19 -resume losartan as low dose 25 mg daily on 04/16/19 and 1 mg bumetanide given on 04/17/19 -Patient's creatinine on discharge is 1.25. Patient will be on reduced Losartan as 25 mg daily and reduced bumetanide as 1 mg daily and avoid metolazone for now on discharge -Patient should by re-assessed by a primary care doctor in 1 week with repeat CBC and basic metabolic panel and serum magnesium levels History of paroxysmal atrial fibrillation -on Rythmol and aspirin -not a candidate for anticoagulation secondary to history of gastrointestinal bleed. Hyperlipidemia Obesity with BMI 39.4 -on statin Hypothyroidism -home medication of levothyroxine 88 mcg at home -TSH has been chronically low, the free T4 is normal -continue levoythroxine Hypomagnesemia -serum magnesium 1.6 on admission; hypomagnesemia was treated and recent serum magnesium at goal Chronic anemia -Patient's discharge hemoglobin is 7.4 with some recent decreases from dilution during this hospital stay from IV fluids to treat acute kidney injury and from blood draws. No evidence of GI bleed -Patient should by re-assessed by a primary care doctor in 1 week with repeat CBC and basic metabolic panel and serum magnesium levels History of peptic ulcer disease. -Last esophagogastroduodenoscopy in December 2018 showing non bleeding gastric ulcers -on ranitidine Deep venous thrombosis prophylaxis, sequential compression device Full Code daughter Noreen [phone] -patient will be discharged to [facility] on 04/17/19 after inpatient stay for pain control and medical optimization -In regards to left shoulder pain with left wrist pain, patient was evaluated by [facility] group Dr. Lemus for Acute on chronic rotator cuff tear with rotator cuff arthropathy. There is no recommendation for orthopedic surgery. They advised conservative management versus left shoulder sling or corticosteroid injection if pain is not controlled. If patient cannot perform well at physical rehabilitation center then patient should be scheduled visit to [facility] [address], [place] [address] -Patient is prescribed on discharge pain medication of acetaminophen 325 mg q6 hours as needed for mild pain or if fever. Because patient has large body habitus, the 325 mg dosing may not be sufficient so: for moderate pain patient may take tramadol 50 mg every 8 hours as need (16 tablet prescription prescribed ) ; for severe pain patient may take oxycodone 2.5 mg every 8 hours as need (16 tablet prescription prescribed) -Patient also has had multiple hospitalizations for respiratory issues so excessive narcotics should be avoided -Patient should not take Nonsteroidal anti-inflammatory drugs (NSAIDs) for pain control because of anemia -Patient's discharge hemoglobin is 7.4 with some recent decreases from dilution during this hospital stay from IV fluids to treat acute kidney injury and from blood draws. No evidence of GI bleed -Patient's creatinine on discharge is 1.25. Patient will be on reduced Losartan as 25 mg daily and reduced bumetanide as 1 mg daily and avoid metolazone for now on discharge -Patient should by re-assessed by a primary care doctor in 1 week with repeat CBC and basic metabolic panel and serum magnesium levels -Patient should sleep with CPAP at night and uses nasal cannula supplementary oxygen during the day time Discharge Diagnosis: Fall, Left shoulder pain (Acute on chronic rotator cuff tear with rotator cuff arthropathy), Chronic respiratory failure with hypoxia, Obesity hypoventilation Syndrome and on CPAP with sleep, Chronic Obstructive Pulmonary Disease, Obesity with BMI 39.4, Acute Kidney on Chronic kidney disease stage IV Subjective Patient seen and examined earlier today. No distress. She does not report of acute pain. on nasal cannula oxygen. Patient denies other symptoms. Discussed with patient and her daughter on the phone about the discharge plans and follow ups Physical Exam Constitutional: + obese Eyes: PERRL, conjunctivae normal, anicteric sclerae EOM intact bilaterally ENMT: external ear and nose normal, oropharynx normal Neck: normal visual inspection Respiratory: normal respiratory effort, lungs clear to auscultation Cardiovascular: Rate/Rhythm: regular rate and regular rhythm Gastrointestinal (Abdomen): normal bowel sounds, soft, nontender, no hepatosplenomegaly Musculoskeletal: Head/Neck/Chest: normocephalic and head atraumatic Neurologic: PERRL, EOMI, accommodation nl, no face palsy, no dysarthria Psychiatric: A+Ox3, euthymic affect Results & Data Vital Signs (Past 12 Hours) Vital Signs Temp Pulse Resp BP Pulse Ox 04/17/19 07:25 36.8 C 79 18 162/80 H 100 04/17/19 01:43 98 (1) Left shoulder pain Chronicity: acute Qualified Code(s): M25.512 - Pain in left shoulder (2) Fall Encounter type: initial encounter Qualified Code(s): W19.XXXA - Unspecified fall, initial encounter
--- NOTE | 2019-04-17 13:52 | Discharge Summary ---
Date of Service April 17, 2019 Admission HPI Per Admitting Provider CHIEF COMPLAINT: Status post fall, left shoulder pain. HISTORY OF PRESENT ILLNESS: This is a 68-year-old female with past medical history significant for severe chronic obstructive pulmonary disease, chronic respiratory failure, on 4 liters oxygen all the time, hyperlipidemia, hypothyroidism, atrial fibrillation, not on anticoagulation secondary to history of gastrointestinal bleed and hematoma, history of right-sided heart failure, hypertension, chronic kidney disease stage III-IV, iron deficiency anemia, spinal stenosis, depression with anxiety, multiple admissions for chronic obstructive pulmonary disease exacerbations, history of heme-positive stool, status post esophagogastroduodenoscopy, showing nonbleeding gastric ulcers in 12/2018 who lives at home with her daughter, ambulates without any help. She states she was walking today when she tripped over her oxygen hose and fell down on the left side. She states she is having significant pain in the left shoulder and knee so she came to the Emergency Room. All the imaging studies in the Emergency Room were unremarkable, but the patient states she has significant pain so we are called for admission for possible placement. The patient denies any headache. No blurred vision. No earache. No runny nose. No sore throat. No cough. No fever. No chills. No shortness of breath. No chest pain. No nausea. No vomiting. No abdominal pain. Normal bowel and bladder movements. No hematuria. No black stools or bloody stools. No rash. Currently resting comfortably and hemodynamically stable. Complains of pain in the left shoulder. She has painful movements of the left upper extremity and also left lower extremity. No bruise or ecchymosis seen. ALLERGIES: No known drug allergies. PAST MEDICAL HISTORY: As mentioned above. PAST SURGICAL HISTORY: Colonoscopy, neck fusion surgery, appendectomy, cholecystectomy, right shoulder surgery, right hip replacement surgery and repair of the wrist. MEDICATIONS: The patient is on Tylenol 650 mg p.o. q. 4 hours p.r.n., albuterol nebulization q. 6 hours p.r.n., allopurinol 300 mg p.o. a.m., atorvastatin 20 mg p.o. a.m., Breo Ellipta 1 inhalation daily, Bumex 1 mg p.o. b.i.d., vitamin D 2000 units p.o. a.m., Daliresp 500 mcg daily, gabapentin 600 mg p.o. t.i.d., levothyroxine 88 mcg daily, losartan 50 mg p.o. daily, metolazone 2.5 mg p.o. on Mondays and Fridays, Toprol-XL 50 mg p.o. daily in a.m., multivitamins 1 tablet q.a.m., Zofran 4 mg p.o. q. 6 hours p.r.n., potassium chloride 20 mEq p.o. every other day, propafenone 150 mg p.o. q. 8 hours, Zantac 150mg bid, and Zoloft 25 mg p.o. a.m. FAMILY HISTORY: Significant for mother had diabetes and heart disorder. Sister has heart disorder. SOCIAL HISTORY: , lives with his daughter. Quit smoking in 2009. Prior to that, smoked a half pack a day for 35 years. No alcohol use. No drug use. REVIEW OF SYMPTOMS: As per HPI. Rest of review of systems negative. Admission Exam Per Admitting Provider PHYSICAL EXAMINATION: GENERAL: The patient is morbidly obese, not in acute distress. VITAL SIGNS: Temperature 36.9, pulse 84, respiratory rate 20, blood pressure 142/73 and oxygen 98% on 4 liters. HEENT: No pallor. No icterus. Pupils are equal, round and reactive to light. NECK: No JVD. No neck masses. No carotid bruits. CARDIOVASCULAR: S1, S2 heard. Regular rate and rhythm. No murmur. No gallop. RESPIRATORY SYSTEM: Normal AP diameter. No accessory muscle use. No wheezing. No crackles. ABDOMEN: Soft. Bowel sounds present. Nontender. No distention. CENTRAL NERVOUS SYSTEM: Cranial nerves II through XII grossly intact. Nonfocal. EXTREMITIES: No edema. No erythema. Principal Diagnosis Fall, Left shoulder pain (Acute on chronic rotator cuff tear with rotator cuff arthropathy), Chronic respiratory failure with hypoxia, Obesity hypoventilation Syndrome and on CPAP with sleep, Chronic Obstructive Pulmonary Disease, Obesity with BMI 39.4, Acute Kidney on Chronic kidney disease stage IV Discharge Exam Constitutional + obese Eyes PERRL, conjunctivae normal, anicteric sclerae EOM intact bilaterally ENMT external ear and nose normal, oropharynx normal Neck normal visual inspection Respiratory normal respiratory effort, lungs clear to auscultation Cardiovascular Rate/Rhythm: regular rate and regular rhythm Gastrointestinal (Abdomen) normal bowel sounds, soft, nontender, no hepatosplenomegaly Musculoskeletal Head/Neck/Chest: normocephalic and head atraumatic Neurologic PERRL, EOMI, accommodation nl, no face palsy, no dysarthria Psychiatric A+Ox3, euthymic affect Discharge Data Allergies Allergy/AdvReac Type Severity Reaction Status Date / Time adhesive Allergy Severe RED RASH Verified 04/12/19 19:37 latex AdvReac Mild TAPE-SORE Verified 04/12/19 19:37 morphine AdvReac Mild DELUSIONS Verified 04/12/19 19:37 Consultations 04/12/19 23:08 ED Decision to Admit Stat 04/14/19 10:15 Consult Orthopedic Surgery Routine Ordered Studies 04/12/19 19:28 CT cervical spine wo con Stat CT head/brain wo con Stat 04/13/19 01:17 CT shoulder LT wo con Routine 04/14/19 20:00 MR shoulder LT wo con Routine Hospital Course (1) Fall: -had mechanical fall at home when she tripped over her oxygen hose -PT/OT evaluations recommending inpatient physical therapy after the hospital stay after assessing gait and mobility -patient will be discharged to [facility] on 04/17/19 after inpatient stay for pain control and medical optimization (2) Left shoulder pain: Left shoulder pain (Acute on chronic rotator cuff tear with rotator cuff arthropathy) -CT scan: contusion along the superolateral left shoulder with trace subjacent hematoma tracking along the superficial aspect of the deltoid. No intramuscular hematoma -CT scan also shows Degenerative changes of the glenohumeral joint and Evidence of chronic rotator cuff tear. -In regards to left shoulder pain with left wrist pain, patient was evaluated by [facility] group Dr. Lemus for Acute on chronic rotator cuff tear with rotator cuff arthropathy. There is no recommendation for orthopedic surgery. They advised conservative management versus left shoulder sling or corticosteroid injection if pain is not controlled. If patient cannot perform well at physical rehabilitation center then patient should be scheduled visit to [facility] [address] [place] [address], [place] [address] -Patient is prescribed on discharge pain medication of acetaminophen 325 mg q6 hours as needed for mild pain or if fever. Because patient has large body habitus, the 325 mg dosing may not be sufficient so: for moderate pain patient may take tramadol 50 mg every 8 hours as need (16 tablet prescription prescribed) ; for severe pain patient may take oxycodone 2.5 mg every 8 hours as need (16 tablet prescription prescribed) -Patient also has had multiple hospitalizations for respiratory issues so excessive narcotics should be avoided -Patient should not take Nonsteroidal anti-inflammatory drugs (NSAIDs) for pain control because of anemia Chronic respiratory failure with hypoxia -on nasal cannula oxygen 4 liters/min at home -currently at baseline chronic obstructive pulmonary -continue roflumilast -continue home inhalers (Breo is substituted as Advair while in the hospital) Obesity hypoventilation Syndrome and on CPAP with sleep -Patient sleep with CPAP at night and uses nasal cannula supplementary oxygen during the day time Hypertension Neuropathy -continue metoprolol -gabapentin TID chronic diastolic heart failure -on bumetanide BID and metolazone on home medication list. however patient developed Acute kidney injury during hospital course -patient is now being resumed on reduced diuretics Acute Kidney on Chronic kidney disease stage IV -baseline creatinine 1.5 -creatinine increased from 1.58 from 04/13/19 to 2.38 on 04/14/19; chart review does not show any IV contrast on admission imaging -IV fluids have been given. creatinine peaked as 2.9 on 04/14/19; creatinine kinase is normal, normal urine analysis -was assumed that perhaps patient was not taking diuretics at home. But as per nurse, patient's daughter brought in patient's home medication and verifies with hospital list -creatinine is 1.58 on 04/16/19, stop IV fluids -recheck creatinine on 04/17/19 -resume losartan as low dose 25 mg daily on 04/16/19 and 1 mg bumetanide given on 04/17/19 -Patient's creatinine on discharge is 1.25. Patient will be on reduced Losartan as 25 mg daily and reduced bumetanide as 1 mg daily and avoid metolazone for now on discharge -Patient should by re-assessed by a primary care doctor in 1 week with repeat CBC and basic metabolic panel and serum magnesium levels History of paroxysmal atrial fibrillation -on Rythmol and aspirin -not a candidate for anticoagulation secondary to history of gastrointestinal bleed. Hyperlipidemia Obesity with BMI 39.4 -on statin Hypothyroidism -home medication of levothyroxine 88 mcg at home -TSH has been chronically low, the free T4 is normal -continue levoythroxine Hypomagnesemia -serum magnesium 1.6 on admission; hypomagnesemia was treated and recent serum magnesium at goal Chronic anemia -Patient's discharge hemoglobin is 7.4 with some recent decreases from dilution during this hospital stay from IV fluids to treat acute kidney injury and from blood draws. No evidence of GI bleed -Patient should by re-assessed by a primary care doctor in 1 week with repeat CBC and basic metabolic panel and serum magnesium levels History of peptic ulcer disease. -Last esophagogastroduodenoscopy in December 2018 showing non bleeding gastric ulcers -on ranitidine Deep venous thrombosis prophylaxis, sequential compression device Full Code daughter Noreen [phone] -patient will be discharged to [facility] on 04/17/19 after inpatient stay for pain control and medical optimization -In regards to left shoulder pain with left wrist pain, patient was evaluated by [facility] group Dr. Lmeus for Acute on chronic rotator cuff tear with rotator cuff arthropathy. There is no recommendation for orthopedic surgery. They advised conservative management versus left shoulder sling or corticosteroid injection if pain is not controlled. If patient cannot perform well at physical rehabilitation center then patient should be scheduled visit to [facility] [address], [place] [address] -Patient is prescribed on discharge pain medication of acetaminophen 325 mg q6 hours as needed for mild pain or if fever. Because patient has large body habitus, the 325 mg dosing may not be sufficient so: for moderate pain patient may take tramadol 50 mg every 8 hours as need (16 tablet prescription prescribed) ; for severe pain patient may take oxycodone 2.5 mg every 8 hours as need (16 tablet prescription prescribed) -Patient also has had multiple hospitalizations for respiratory issues so excessive narcotics should be avoided -Patient should not take Nonsteroidal anti-inflammatory drugs (NSAIDs) for pain control because of anemia -Patient's discharge hemoglobin is 7.4 with some recent decreases from dilution during this hospital stay from IV fluids to treat acute kidney injury and from blood draws. No evidence of GI bleed -Patient's creatinine on discharge is 1.25. Patient will be on reduced Losartan as 25 mg daily and reduced bumetanide as 1 mg daily and avoid metolazone for now on discharge -Patient should by re-assessed by a primary care doctor in 1 week with repeat CBC and basic metabolic panel and serum magnesium levels -Patient should sleep with CPAP at night and uses nasal cannula supplementary oxygen during the day time Discharge Diagnosis: Fall, Left shoulder pain (Acute on chronic rotator cuff tear with rotator cuff arthropathy), Chronic respiratory failure with hypoxia, Obesity hypoventilation Syndrome and on CPAP with sleep, Chronic Obstructive Pulmonary Disease, Obesity with BMI 39.4, Acute Kidney on Chronic kidney disease stage IV Total Time Total Time Spent Total Time Spent (In Minutes): 40 minutes Total Time Includes: Examination of the Patient, Discharge Planning, Medication Reconciliation and Communication With Other Providers Discharge Plan Discharge Items Patient Disposition: Transfer Inpatient Rehab Fac Reason For Visit: FALL Discharge Diagnosis: Fall, Left shoulder pain (Acute on chronic rotator cuff tear with rotator cuff arthropathy), Chronic respiratory failure with hypoxia, Obesity hypoventilation Syndrome and on CPAP with sleep, Chronic Obstructive Pulmonary Disease, Obesity with BMI 39.4, Acute Kidney on Chronic kidney disease stage IV Condition on Discharge: Good Activity: Per Instructions section Non-emergency contact: Primary Care Provider Call non-emergency contact if: you have any medication questions Follow-up/Referrals: Babak Melendez MD [Primary Care Provider] - Diet: Heart Healthy and Low Sodium (2gm) Addtl Attending Provider Instructions: -patient will be discharged to [facility] on 04/17/19 after inpatient stay for pain control and medical optimization -In regards to left shoulder pain with left wrist pain, patient was evaluated by [facility] group Dr. Lemus for Acute on chronic rotator cuff tear with rotator cuff arthropathy. There is no recommendation for orthopedic surgery. They advised conservative management versus left shoulder sling or corticosteroid injection if pain is not controlled. If patient cannot perform well at physical rehabilitation center then patient should be scheduled visit to [facility] [address] [place] [address], [place] [address] -Patient is prescribed on discharge pain medication of acetaminophen 325 mg q6 hours as needed for mild pain or if fever. Because patient has large body habitus, the 325 mg dosing may not be sufficient so: for moderate pain patient may take tramadol 50 mg every 8 hours as need (16 tablet prescription prescribed) ; for severe pain patient may take oxycodone 2.5 mg every 8 hours as need (16 tablet prescription prescribed) -Patient also has had multiple hospitalizations for respiratory issues so excessive narcotics should be avoided -Patient should not take Nonsteroidal anti-inflammatory drugs (NSAIDs) for pain control because of anemia -Patient's discharge hemoglobin is 7.4 with some recent decreases from dilution during this hospital stay from IV fluids to treat acute kidney injury and from blood draws. No evidence of GI bleed -Patient's creatinine on discharge is 1.25. Patient will be on reduced Losartan as 25 mg daily and reduced bumetanide as 1 mg daily and avoid metolazone for now on discharge -Patient should by re-assessed by a primary care doctor in 1 week with repeat CBC and basic metabolic panel and serum magnesium levels -Patient should sleep with CPAP at night and uses nasal cannula supplementary oxygen during the day time Pending Studies at Discharge: No Stand-Alone Forms: My [facility] Skilled Items Patient informed of condition?: Yes DNR: No Discharge Level of Care: Acute rehab Communicable Disease: Yes Discharge Prognosis: Stable Lines: None Urinary Catheter: No Medications and DC Order Prescriptions: New losartan 25 mg Tablet 25 mg PO QAM 30 Days Qty: 30 RF: 0 acetaminophen 325 mg tablet 325 mg PO Q6H PRN (Reason: fever or pain) 5 Days Qty: 20 RF: 0 bumetanide 1 mg Tablet 1 mg PO QAM 30 Days Qty: 30 RF: 0 oxycodone 5 mg Tablet 2.5 mg PO Q8H PRN (Reason: severe pain) 4 Days Qty: 6 RF: 0 tramadol 50 mg Tablet 50 mg PO Q8H PRN (Reason: moderate pain) 4 Days Qty: 12 RF: 0 Continued Breo Ellipta 200-25 mcg/dose Blister With Device 1 inh INHALATION DAILY RF: 0 multivitamin Tablet 1 tab PO QAM RF: 0 propafenone 150 mg Tablet 150 mg PO Q8H RF: 0 gabapentin 600 mg Tablet 600 mg PO TID RF: 0 atorvastatin 20 mg Tablet 20 mg PO QPM RF: 0 metoprolol succinate 50 mg Tablet Extended Release 24 Hr 50 mg PO QAM RF: 0 levothyroxine 88 mcg Tablet 88 mcg PO DAILYBB RF: 0 ranitidine HCl 150 mg Tablet 150 mg PO BID RF: 0 sertraline [Zoloft] 25 mg Tablet 25 mg PO QAM RF: 0 allopurinol 300 mg Tablet 300 mg PO QAM RF: 0 cholecalciferol (vitamin D3) [Vitamin D3] 2,000 unit Tablet 2,000 unit PO QAM RF: 0 Daliresp 500 mcg Tablet 500 mcg PO DAILY RF: 0 potassium chloride 20 mEq Tablet Extended Release 20 meq PO Q OTHER DAY RF: 0 albuterol sulfate 2.5 mg /3 mL (0.083 %) Solution For Nebulization 2.5 mg INHALATION Q6 PRN (Reason: Shortness Of Breath Or Wheezing) RF: 0 ondansetron 4 mg tablet,disintegrating 4 mg PO Q6H PRN (Reason: nausea and vomiting) Qty: 14 RF: 0 Discontinued losartan 50 mg Tablet 50 mg PO QAM RF: 0 metolazone 2.5 mg Tablet 2.5 mg PO MOFR RF: 0 bumetanide 1 mg Tablet 1 mg PO BID RF: 0 acetaminophen [Tylenol] 325 mg Capsule 650 mg PO Q4 PRN (Reason: Fever Or Pain) RF: 0 Discharge Orders: Discharge Order (Routine); Ordered 04/17/19 Ordered By: Chirag Patel Admission Data Admit Date/Time: 04/13/19 00:08 Attending Provider: Chirag Patel Admit Provider: Manjit Frias Primary Care Provider: Babak Melendez Other Providers: Manjit Frias ; [facility] ; Jose Antonio Sadler ; Otilio Lemus ; Lan Ding ; Chani Pearson Thomas J ; Lubna Kong ; Anthony Neff ; Jerad Angeles ; Alton Rodriguez ; Jerad Hyman Andrew J. ; Alton Encarnacion ; Cooper You ; Noel Griffin ; Chad Lazo ; Mukund Kohli ; Real Snyder ; Lubna Harper Casey R ; Hang Bahena ; Brett Collazo
== END 2019-04-17 18:02 | DRG 556 ==
LOC: ED 18:57 → SUATTDRO 04-13 00:08 → 4W 04-13 00:08

== ENCOUNTER 2019-07-28 00:32 | Inpatient (IN) ==
[2019-07-28] MEDS ORDERED: fentaNYL citrate 100 MCG/2 ML VIAL IV STA (01:00)
[2019-07-28] MEDS ORDERED: methylPREDNISolone 125 MG/2 ML VIAL IV STA (01:03)
[2019-07-28 01:24] LABS: Basophils # (auto) 0.02 K/uL (0-0.2); Basophils % (auto) 0.2 %; Eosinophils # (auto) 0.26 K/uL (0-0.5); Eosinophils % (auto) 2.5 %; Hematocrit (blood only) 28.3 % (37-47); Hemoglobin 8.6 g/dL (12.0-16.0); Immature Granulocytes # (auto) 0.02 K/uL (0.00-0.02); Immature Granulocytes % (auto) 0.2 %; Lymphocytes # (auto) 1.77 K/uL (1.2-3.4); Lymphocytes % (auto) 16.9 %; Mean Corpuscular Hemoglobin 30.8 pg (25-34); Mean Corpuscular Hgb Conc 30.4 g/dL (32-36); Mean Corpuscular Volume 101.4 fL (80-100); Mean Platelet Volume 8.9 fL (7.4-10.4); Monocytes # (auto) 0.73 K/uL (0.11-0.59); Neutrophils # (auto) 7.67 K/uL (1.4-6.5); Neutrophils % (auto) 73.2 %; Platelet Count 180 K/uL (130-400); RDW Coefficient of Variation 15.1 % (11.5-14.5); RDW Standard Deviation 56.1 fL (36.4-46.3); Red Blood Count 2.79 M/uL (4.2-5.4); White Blood Count 10.47 K/uL (4.8-10.8)
[2019-07-28 01:33] LABS: INR 1.1 (0.9-1.1); Partial Thromboplastin Ratio 0.8; Partial Thromboplastin Time 22.2 Seconds (21.0-31.0)
[2019-07-28 02:03] LABS: Alanine Aminotransferase 12 U/L (12-78); Albumin Globulin Ratio 0.6 (0.9-2); Albumin Level 2.9 gm/dl (3.4-5.0); Alkaline Phosphatase 81 U/L (45-117); Anion Gap 0 (3-11); Aspartate Aminotransferase 5 U/L (15-37); Bilirubin,Total 0.2 mg/dl (0.2-1); Blood Urea Nitrogen 25 mg/dl (7-18); Calcium 10.2 mg/dl (8.5-10.1); Carbon Dioxide 42 mmol/L (21-32); Chloride 98 mmol/L (98-107); Est GFR (African American) 49.2; Est GFR (Non-African American) 42.4; Globulin 4.6 gm/dl (2.5-4.0); Glucose 101 mg/dl (70-99); Magnesium 1.7 mg/dl (1.8-2.4); NT Pro B Type Natriuretic Pept 2102 pg/ml (0-900); Sodium 140 mmol/L (136-145); Total Protein 7.5 gm/dl (6.4-8.2); Troponin I < 0.015 ng/ml (0-0.045)
[2019-07-28 02:19] LABS: Appearance Urine Clear (Clear); Bilirubin Urine Negative (Negative); Blood Urine Negative (Negative); Color Urine Yellow; Glucose Urine UA Negative (Negative); Ketones Urine Negative (Negative); Leukocyte Esterase Urine Negative (Negative); Nitrite Urine Negative (Negative); Protein Urine Negative (Negative); Specific Gravity Urine 1.017 (1.000-1.030); Urobilinogen Urine Negative (Negative); pH Urine 5.5 (4.5-7.5)
[2019-07-28] MEDS ORDERED: MAGNESIUM SULFATE / D5W 1 GM/100 ML BAG IV STA ×2 (02:34→04:24)
[2019-07-28] MEDS ORDERED: ALBUT/IPRATROP 3MG/0.5MG NEB 3 ML VIAL NEB STA (02:35)
[2019-07-28] MEDS ORDERED: DOXYCYCLINE HYCLATE 100 MG in DEXTROSE 5% 100 ML IV STA (02:36)
[2019-07-28] MEDS ORDERED: METOPROLOL SUCC 50MG EXT REL TAB PO STA (02:42)
--- NOTE | 2019-07-28 03:39 | History & Physical Report ---
Date of Service July 28, 2019 Assessment & Plan (1) Acute and chronic respiratory failure with hypercapnia: COPD exacerbation, complicated bronchitis, no sepsis hx pulmonary hypertension, OHS on CPAP chronic diastolic heart failure, EF of 60-65%, TTE 2018, euvolemic to dry given hypercalcemia HTN, elevated similar to illness PAF, px NSR on propafenone, not on anticoagulation secondary to GI bleed November 2018 chronic renal insufficiency, creatinine at baseline Chronic anemia secondary to CKD, hemoglobin at baseline Past tobacco abuse Medical telemetry BiPAP Follow up vBG (patient refusing ABGs.) Doxycycline, nebs, prednisone course Pulmonary consult RE respiratory failure, COPD exacerbation Facilitate home BP meds, may need titration, add Norvasc if still uncontrolled Hold home diuretic for now until patient euvolemic DVT prophylaxis. Heparin subcu Full code Total critical care time was 45 minutes. History of Present Illness Chief Complaint: Cough, S OB Primary Care Provider: Babak Melendez MD History obtained from patient and records. Medical history significant for chronic hypoxemic respiratory failure secondary to COPD on home O2, pulmonary hypertension, OHS on CPAP, paroxysmal atrial fibrillation not on anticoagulation secondary to GI bleed (11/2018), hypertension, chronic diastolic heart failure, EF of 60-65%, TTE 2018, past tobacco abuse, chronic renal insufficiency, baseline creatinine 1.2-1.5, chronic anemia (baseline hemoglobin of 8-9). Recent confinement April 2019 for left shoulder pain secondary to traumatic fall. 2 weeks history of junky productive cough symptoms along with worsening shortness of breath. No chest pain, no aspiration. Fever, chills at home. Possible sick contacts at home as per patient. Nausea, nonbloody diarrhea at home without abdominal pain as per patient. No unusual fluid retention/weight gain as per patient. Usual back pain complaints. At the ER, patient received Solu-Medrol for COPD exacerbation. Medical History as above Surgical History : Appendectomy, cholecystectomy, wrist surgery, shoulder surgery, hip replacement, neck surgery Family History : Diabetes, heart disease Personal/Social history : Past tobacco abuse, no EtOH intake, retired from [employer] work Allergies Allergy/AdvReac Type Severity Reaction Status Date / Time adhesive Allergy Severe RED RASH Verified 07/28/19 01:37 latex AdvReac Mild TAPE-SORE Verified 07/28/19 01:37 morphine AdvReac Mild DELUSIONS Verified 07/28/19 01:37 Home Medications Home Medications Medication Instructions Recorded Confirmed Type Breo Ellipta 1 inh INHALATION DAILY 03/12/18 07/28/19 History Daliresp 500 mcg PO DAILY 03/12/18 07/28/19 History allopurinol 300 mg PO QAM 03/12/18 07/28/19 History atorvastatin 20 mg PO QPM 03/12/18 07/28/19 History cholecalciferol (vitamin D3) 2,000 unit PO QAM 03/12/18 07/28/19 History [Vitamin D3] gabapentin 300 mg PO HS 03/12/18 07/28/19 History levothyroxine 88 mcg PO DAILYBB 03/12/18 07/28/19 History metoprolol succinate 50 mg PO QAM 03/12/18 07/28/19 History multivitamin 1 tab PO QAM 03/12/18 07/28/19 History potassium chloride 20 meq PO Q OTHER DAY 03/12/18 07/28/19 History propafenone 150 mg PO Q8H 03/12/18 07/28/19 History ranitidine HCl 150 mg PO BID 03/12/18 07/28/19 History sertraline [Zoloft] 25 mg PO QAM 03/12/18 07/28/19 History albuterol sulfate 2.5 mg INHALATION Q6 PRN 08/07/18 07/28/19 History ondansetron 4 mg PO Q6H PRN #14 tab 02/24/19 07/28/19 Rx bumetanide 1 mg PO BID 07/28/19 07/28/19 History metolazone 2.5 mg PO 2XWK 07/28/19 07/28/19 History Past Med/Surg History Social History Preferred Language: Persian Communication Ability: Effective Director Of Ancillary Services Required: No Beliefs That Will Affect Care: None marital status: Current Living Situation: Family Current Living Situation Comment: Lives with daughter Other Information That Helps Us Care for You: No Feels Safe at Home: Yes Safety Concerns: Feels Safe At This Time Smoking Status: Former smoker Tobacco Type: cigarettes ; Cigarettes Per Day: 2 packs ; Do You Dip or Chew Tobacco: No ; Smoking End Date: at least 12 years ; Second Hand Exposure: No ; Hx Alcohol Use: No Hx Substance Use: No Review of Systems Review of Systems: As per HPI, all 10 systems reviewed, all other ROS negative Physical Exam Physical Exam: GENERAL: Anxious, obese, minimal respiratory distress SKIN: Pallor , warm HEENT: pale palpebral conjunctivae, no ptosis, dry buccal mucosa, nasal cannula in place NECK : Supple, short neck, no tenderness CHEST : Expiratory wheezes, no tenderness HEART : RRR, no obvious murmurs ABDOMEN: distention, nontender EXTREMITIES : Bilateral LE swelling, no LE tenderness, no other conspicuous deformities noted NEUROLOGIC : Coherent, no facial asymmetry, slightly hard of hearing, gait and stance not assessed Results & Data Vital Signs (Past 12 Hours) Vital Signs Temp Pulse Pulse Resp BP BP Pulse Ox 07/28/19 03:12 77 18 171/68 H 98 07/28/19 02:43 77 18 98 07/28/19 01:43 77 18 165/71 H 99 07/28/19 01:24 99 07/28/19 00:38 37.1 C 72 18 171/88 H 99 Laboratory Results Laboratory Results WBC 10.47 K/uL (4.8-10.8) 07/28/19 01:10 RBC 2.79 M/uL (4.2-5.4) L 07/28/19 01:10 Hgb 8.6 g/dL (12.0-16.0) L 07/28/19 01:10 Hct 28.3 % (37-47) L 07/28/19 01:10 MCV 101.4 fL (80-100) H 07/28/19 01:10 MCH 30.8 pg (25-34) 07/28/19 01:10 MCHC 30.4 g/dL (32-36) L 07/28/19 01:10 RDW Std Deviation 56.1 fL (36.4-46.3) H 07/28/19 01:10 RDW Coeff of Arabella 15.1 % (11.5-14.5) H 07/28/19 01:10 Plt Count 180 K/uL (130-400) 07/28/19 01:10 MPV 8.9 fL (7.4-10.4) 07/28/19 01:10 Immature Gran % (Auto) 0.2 % 07/28/19 01:10 Neut % (Auto) 73.2 % 07/28/19 01:10 Lymph % (Auto) 16.9 % 07/28/19 01:10 [place] % (Auto) 7.0 % 07/28/19 01:10 Eos % (Auto) 2.5 % 07/28/19 01:10 Baso % (Auto) 0.2 % 07/28/19 01:10 Immature Gran # (Auto) 0.02 K/uL (0.00-0.02) 07/28/19 01:10 Neut # (Auto) 7.67 K/uL (1.4-6.5) H 07/28/19 01:10 Lymph # (Auto) 1.77 K/uL (1.2-3.4) 07/28/19 01:10 Davison # (Auto) 0.73 K/uL (0.11-0.59) H 07/28/19 01:10 Eos # (Auto) 0.26 K/uL (0-0.5) 07/28/19 01:10 Baso # (Auto) 0.02 K/uL (0-0.2) 07/28/19 01:10 PT 11.0 Seconds (9.0-12.0) 07/28/19 01:10 INR 1.1 (0.9-1.1) 07/28/19 01:10 APTT 22.2 Seconds (21.0-31.0) 07/28/19 01:10 PTT Ratio 0.8 07/28/19 01:10 Sodium 140 mmol/L (136-145) 07/28/19 01:10 Potassium 5.0 mmol/L (3.5-5.1) 07/28/19 01:10 Chloride 98 mmol/L (98-107) 07/28/19 01:10 Carbon Dioxide 42 mmol/L (21-32) H* 07/28/19 01:10 Anion Gap 0 (3-11) L 07/28/19 01:10 BUN 25 mg/dl (7-18) H 07/28/19 01:10 Creatinine 1.27 mg/dl (0.6-1.2) H 07/28/19 01:10 Est Cr Clr Drug Dosing 50.0 ml/min 07/28/19 01:10 Est GFR ( Amer) 49.2 07/28/19 01:10 Est GFR (Non-Af Amer) 42.4 07/28/19 01:10 BUN/Creatinine Ratio 20.0 (10-20) 07/28/19 01:10 Glucose 101 mg/dl (70-99) H 07/28/19 01:10 Lactate 0.8 mmol/L (0.4-2.0) 07/28/19 01:10 Calcium 10.2 mg/dl (8.5-10.1) H 07/28/19 01:10 Magnesium 1.7 mg/dl (1.8-2.4) L 07/28/19 01:10 Total Bilirubin 0.2 mg/dl (0.2-1) 07/28/19 01:10 AST 5 U/L (15-37) L 07/28/19 01:10 ALT 12 U/L (12-78) 07/28/19 01:10 Alkaline Phosphatase 81 U/L (45-117) 07/28/19 01:10 Troponin I < 0.015 ng/ml (0-0.045) 07/28/19 01:10 NT-Pro-B Natriuret Pep 2102 pg/ml (0-900) H 07/28/19 01:10 Total Protein 7.5 gm/dl (6.4-8.2) 07/28/19 01:10 Albumin 2.9 gm/dl (3.4-5.0) L 07/28/19 01:10 Globulin 4.6 gm/dl (2.5-4.0) H 07/28/19 01:10 Albumin/Globulin Ratio 0.6 (0.9-2) L 07/28/19 01:10 Urine Color Yellow 07/28/19 01:42 Urine Appearance Clear (Clear) 07/28/19 01:42 Urine pH 5.5 (4.5-7.5) 07/28/19 01:42 Ur Specific [place] 1.017 (1.000-1.030) 07/28/19 01:42 Urine Protein Negative (Negative) 07/28/19 01:42 Urine Glucose (UA) Negative (Negative) 07/28/19 01:42 Urine Ketones Negative (Negative) 07/28/19 01:42 Urine Blood Negative (Negative) 07/28/19 01:42 Urine Nitrite Negative (Negative) 07/28/19 01:42 Urine Bilirubin Negative (Negative) 07/28/19 01:42 Urine Urobilinogen Negative (Negative) 07/28/19 01:42 Ur Leukocyte Esterase Negative (Negative) 07/28/19 01:42 Influenza Type A Ag Neg for Influ A (Neg) 07/28/19 01:42 Influenza Type B Ag Neg for Influ B (Neg) 07/28/19 01:42 Diagnostic Findings Chest x-ray as per my interpretation : cardiomegaly, chronic interstitial thickening, atelectasis EKG as per my interpretation : Rate 70, NSR, normal axis, incomplete RBBB, T wave abnormality septal leads
[2019-07-28 03:49] LABS: Base Excess VBG 10.2 mEq/L; HCO3 VBG 39 mmol/L; PCO2 VBG 82 mmHg (38-50); PO2 VBG 34 mmHg
[2019-07-28 03:50] LABS: Oxygen Saturation VBG < 60.0 %
[2019-07-28] MEDS ORDERED: TRAMADOL HCL 50 MG TABLET PO STA (04:45)
[2019-07-28] MEDS ORDERED: AMLODIPINE BESYLATE 5 MG TAB PO ONE (04:46)
[2019-07-28] MEDS ORDERED: CARBOHYDRATES FOR HYPOGLYCEMIA PO PRN (05:24)
[2019-07-28] MEDS ORDERED: DEXTROSE 50% 50 ML SYRINGE IV PRN (05:24)
[2019-07-28] MEDS ORDERED: GLUCOSE 10 TABS/TUBE PO PRN (05:24)
[2019-07-28] MEDS ORDERED: NITROGLYCERIN SL 0.4 MG/TAB TAB SL PRN (05:24)
[2019-07-28] MEDS ORDERED: SODIUM CHLORIDE 0.9% 500 ML IV ONE (05:24)
[2019-07-28] MEDS ORDERED: TRAMADOL HCL 50 MG TABLET PO PRN (05:24)
[2019-07-28] MEDS ORDERED: GLUCOSE 40% GEL 15 GM TUBE PO PRN (05:24)
[2019-07-28] MEDS ORDERED: GLUCAGON FOR INJ 1 MG VIAL SQ PRN (05:24)
[2019-07-28] MEDS ORDERED: ACETAMINOPHEN 325 MG TAB PO PRN (05:24)
--- NOTE | 2019-07-28 05:49 | Emergency Department Note ---
Entered by Jean Winston acting as a scribe for Mara Lam DO History of Present Illness General Chief complaint: Weakness Stated complaint: WEAKNESS/BODY ACHES Time Seen by Provider: 07/28/19 00:46 Source: patient History of Present Illness Onset (ago): week(s) (a few weeks ago) Location: chest Pain Consistency: + other (worsening) Maximum Pain Intensity: 9 Quality: + other (SOB) Exacerbated By: + movement (exertion) Associated symptoms: + other (Positive for persistent yellow cough, back pain, body aches, diarrhea, a fever, and mild abdominal pain. Negative for urinary symptoms and constipation.) The patient is a 69 year old female who presents to the emergency department with complaints of worsening SOB beginning a few weeks ago. The patient states that she has had a persistent yellow productive cough for the last few weeks. She notes that she had increasing SOB, prompting her visit to the emergency department. She reports that her SOB is worse with exertion. The patient states that she developed back pain two days ago. She also complains of body aches, diarrhea, a fever, and mild abdominal pain. She denies any urinary symptoms and constipation. She notes that she has a history of COPD and she reports that she wears 4L of oxygen at home. Home Medications Home Medications Medication Instructions Recorded Confirmed Type Breo Ellipta 1 inh INHALATION DAILY 03/12/18 07/28/19 History Daliresp 500 mcg PO DAILY 03/12/18 07/28/19 History allopurinol 300 mg PO QAM 03/12/18 07/28/19 History atorvastatin 20 mg PO QPM 03/12/18 07/28/19 History cholecalciferol (vitamin D3) 2,000 unit PO QAM 03/12/18 07/28/19 History [Vitamin D3] gabapentin 300 mg PO HS 03/12/18 07/28/19 History levothyroxine 88 mcg PO DAILYBB 03/12/18 07/28/19 History metoprolol succinate 50 mg PO QAM 03/12/18 07/28/19 History multivitamin 1 tab PO QAM 03/12/18 07/28/19 History potassium chloride 20 meq PO Q OTHER DAY 03/12/18 07/28/19 History propafenone 150 mg PO Q8H 03/12/18 07/28/19 History ranitidine HCl 150 mg PO BID 03/12/18 07/28/19 History sertraline [Zoloft] 25 mg PO QAM 03/12/18 07/28/19 History albuterol sulfate 2.5 mg INHALATION Q6 PRN 08/07/18 07/28/19 History ondansetron 4 mg PO Q6H PRN #14 tab 02/24/19 07/28/19 Rx bumetanide 1 mg PO BID 07/28/19 07/28/19 History metolazone 2.5 mg PO 2XWK 07/28/19 07/28/19 History Allergies Allergy/AdvReac Type Severity Reaction Status Date / Time adhesive Allergy Severe RED RASH Verified 07/28/19 01:37 latex AdvReac Mild TAPE-SORE Verified 07/28/19 01:37 morphine AdvReac Mild DELUSIONS Verified 07/28/19 01:37 Past Med/Surg History Social History Preferred Language: Singaporean Communication Ability: Effective 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 and A total of 10 systems reviewed and were otherwise negative Physical Exam Vital Signs Vital Signs - 24 hr 07/28/19 00:38 07/28/19 01:24 07/28/19 01:43 Temperature 37.1 C Temperature Source Oral Pulse Rate 72 Pulse Rate [Apical] 77 Respiratory Rate 18 18 Respiratory Effort / Characteristics Blood Pressure 171/88 H Blood Pressure [Right Arm] 165/71 H Blood Pressure Mean 115 Blood Pressure Mean [Right Arm] 102 Pulse Oximetry 99 99 99 Oxygen Delivery Method Nasal Cannula Nasal Cannula Nasal Cannula Oxygen Flow Rate 4 4 4 Sepsis Recent Fever Within 48 Hours No Sepsis New/Unexplained Change in Mental Status No Sepsis Action Taken by Nursing No Action Required 07/28/19 02:43 07/28/19 03:12 Temperature Temperature Source Pulse Rate Pulse Rate [Apical] 77 77 Respiratory Rate 18 18 Respiratory Effort / Characteristics Non-Labored Spontaneous Blood Pressure Blood Pressure [Right Arm] 171/68 H Blood Pressure Mean Blood Pressure Mean [Right Arm] 102 Pulse Oximetry 98 98 Oxygen Delivery Method Nasal Cannula Nasal Cannula Oxygen Flow Rate 3.5 4 Sepsis Recent Fever Within 48 Hours Sepsis New/Unexplained Change in Mental Status Sepsis Action Taken by Nursing General: Unwell and SOB appearing. HEENT: Head - normocephalic and atraumatic Pupils are equal, round, and reactive to light. Extraocular eye muscles are intact, and sclera are anicteric. Nose - moist nasal mucosa without discharge. Mouth - moist buccal mucosa. Oropharynx is nonerythematous and there is no tonsillar exudate or edema noted. Neck: Supple; no JVD, nuchal rigidity, cervical lymphadenopathy, or auscultated bruits. Heart: Regular rate and rhythm. There is a normal S1 and S2 with no murmurs, clicks, or gallops appreciated. Lungs: No wheezes. Diffuse rhonchi in the lungs with rales at the bases. Abdomen: Soft, nondistended, with good bowel sounds. There are no palpable pulsatile masses or hepatosplenomegaly. There is no guarding, rigidity, or rebound noted. Right flank pain. Extremities: No evidence of cyanosis or clubbing. There are easily palpable peripheral pulses. Trace pedal edema. Skin: warm and dry with good turgor and no rashes. Course Course 0054: The patient was evaluated in room B12. A complete history and physical examination were performed. Nursing notes and previous electronic medical records were reviewed. IV lock was established and labs were drawn as above. An order was placed for continuous cardiac monitoring. The patient was in a normal sinus rhythm in the 70s. 0144: Fentanyl Citrate 50mcg IV, Methylprednisolone 125mg IV. A portable chest x-ray was obtained. 0216: I rechecked the patient. She appears a bit more comfortable. She remains on supplemental oxygen. 0218: Upon reevaluation, the patient is stable. I discussed the findings and the treatment plan with the patient. She expresses agreement and understanding. I spoke with Dr. Lowery of the [facility]. The patient will be evaluated for further management. Consultations Consultation #1: I reviewed the patient's case with Dr. Lowery - Hospitalist, Abi. He will evaluate the patient for further management. Time: 02:18 Administered Medications Discontinued Medications Albuterol (Duoneb) 3 ml NEB NOW STA Stop: 07/28/19 02:36 Last Admin: 07/28/19 02:43 Dose: 3 ml Documented by: [id number] Amlodipine Besylate (Norvasc) 2.5 mg PO NOW ONE Stop: 07/28/19 04:47 Last Admin: 07/28/19 04:53 Dose: 2.5 mg Documented by: [id number] Fentanyl Citrate (Fentanyl Citrate) 50 mcg IV NOW STA Stop: 07/28/19 01:01 Last Admin: 07/28/19 01:44 Dose: 50 mcg Documented by: [id number] Magnesium Sulfate/Dextrose (Magnesium Sulfate / D5w) 1 gm in 100 mls @ 100 mls/hr IV Q1H STA Stop: 07/28/19 03:33 Last Infusion: 07/28/19 04:13 Dose: 0 mls/hr Documented by: [id number] Admin: 07/28/19 03:12 Dose: 100 mls/hr Documented by: [id number] Doxycycline Hyclate 100 mg/ (Dextrose) 110 mls @ 50 mls/hr IV NOW STA Stop: 07/28/19 04:47 Last Infusion: 07/28/19 05:45 Dose: 0 mls/hr Documented by: [id number] Admin: 07/28/19 03:12 Dose: 50 mls/hr Documented by: [id number] Magnesium Sulfate/Dextrose (Magnesium Sulfate / D5w) 1 gm in 100 mls @ 100 mls/hr IV Q1H STA Stop: 07/28/19 05:23 Last Infusion: 07/28/19 05:45 Dose: 0 mls/hr Documented by: [id number] Admin: 07/28/19 04:24 Dose: 100 mls/hr Documented by: [id number] Methylprednisolone (Solumedrol) 125 mg IV NOW STA Stop: 07/28/19 01:04 Last Admin: 07/28/19 01:44 Dose: 125 mg Documented by: [id number] Metoprolol Succinate (Toprol Xl) 50 mg PO ONE STA Stop: 07/28/19 02:43 Last Admin: 07/28/19 03:12 Dose: 50 mg Documented by: [id number] Tramadol HCl (Ultram) 25 mg PO NOW STA Stop: 07/28/19 04:46 Last Admin: 07/28/19 04:53 Dose: 25 mg Documented by: [id number] Medical Decision Making Differential Diagnosis Differential diagnoses include: pneumonia, CHF, COPD exacerbation, and UTI. Medical Records Attestation: I reviewed the patient's medical records. Home Medications Current Medication List: was personally reviewed by me Laboratory Data Attestation: I reviewed the patient's lab results. Result diagrams: 07/28/19 01:10 07/28/19 01:10 Lab Results 07/28/19 07/28/19 07/28/19 Range/Units 01:10 01:10 01:10 WBC 10.47 (4.8-10.8) K/uL RBC 2.79 L (4.2-5.4) M/uL Hgb 8.6 L (12.0-16.0) g/dL Hct 28.3 L (37-47) % MCV 101.4 H (80-100) fL MCH 30.8 (25-34) pg MCHC 30.4 L (32-36) g/dL RDW Std Deviation 56.1 H (36.4-46.3) fL RDW Coeff of Arabella 15.1 H (11.5-14.5) % Plt Count 180 (130-400) K/uL MPV 8.9 (7.4-10.4) fL Immature Gran % (Auto) 0.2 % Neut % (Auto) 73.2 % Lymph % (Auto) 16.9 % Teller % (Auto) 7.0 % Eos % (Auto) 2.5 % Baso % (Auto) 0.2 % Immature Gran # (Auto) 0.02 (0.00-0.02) K/uL Neut # (Auto) 7.67 H (1.4-6.5) K/uL Lymph # (Auto) 1.77 (1.2-3.4) K/uL Teller # (Auto) 0.73 H (0.11-0.59) K/uL Eos # (Auto) 0.26 (0-0.5) K/uL Baso # (Auto) 0.02 (0-0.2) K/uL PT 11.0 (9.0-12.0) Seconds INR 1.1 (0.9-1.1) APTT 22.2 (21.0-31.0) Seconds PTT Ratio 0.8 VBG pH (7.36-7.41) VBG pCO2 (38-50) mmHg VBG pO2 mmHg VBG HCO3 mmol/L VBG O2 Saturation % VBG Base Excess mEq/L Barometric Pressure mm/Hg Sodium 140 (136-145) mmol/L Potassium 5.0 (3.5-5.1) mmol/L Chloride 98 (98-107) mmol/L Carbon Dioxide 42 H* (21-32) mmol/L Anion Gap 0 L (3-11) BUN 25 H (7-18) mg/dl Creatinine 1.27 H (0.6-1.2) mg/dl Est Cr Clr Drug Dosing 50.0 ml/min Est GFR ( Amer) 49.2 Est GFR (Non-Af Amer) 42.4 BUN/Creatinine Ratio 20.0 (10-20) Glucose 101 H (70-99) mg/dl Lactate (0.4-2.0) mmol/L Calcium 10.2 H (8.5-10.1) mg/dl Magnesium 1.7 L (1.8-2.4) mg/dl Total Bilirubin 0.2 (0.2-1) mg/dl AST 5 L (15-37) U/L ALT 12 (12-78) U/L Alkaline Phosphatase 81 (45-117) U/L Troponin I < 0.015 (0-0.045) ng/ml NT-Pro-B Natriuret Pep 2102 H (0-900) pg/ml Total Protein 7.5 (6.4-8.2) gm/dl Albumin 2.9 L (3.4-5.0) gm/dl Globulin 4.6 H (2.5-4.0) gm/dl Albumin/Globulin Ratio 0.6 L (0.9-2) Urine Color Urine Appearance (Clear) Urine pH (4.5-7.5) Ur Specific [place] (1.000-1.030) Urine Protein (Negative) Urine Glucose (UA) (Negative) Urine Ketones (Negative) Urine Blood (Negative) Urine Nitrite (Negative) Urine Bilirubin (Negative) Urine Urobilinogen (Negative) Ur Leukocyte Esterase (Negative) Influenza Type A Ag (Neg) Influenza Type B Ag (Neg) 07/28/19 07/28/19 07/28/19 Range/Units 01:10 01:42 01:42 WBC (4.8-10.8) K/uL RBC (4.2-5.4) M/uL Hgb (12.0-16.0) g/dL Hct (37-47) % MCV (80-100) fL MCH (25-34) pg MCHC (32-36) g/dL RDW Std Deviation (36.4-46.3) fL RDW Coeff of Arabella (11.5-14.5) % Plt Count (130-400) K/uL MPV (7.4-10.4) fL Immature Gran % (Auto) % Neut % (Auto) % Lymph % (Auto) % Teller % (Auto) % Eos % (Auto) % Baso % (Auto) % Immature Gran # (Auto) (0.00-0.02) K/uL Neut # (Auto) (1.4-6.5) K/uL Lymph # (Auto) (1.2-3.4) K/uL Teller # (Auto) (0.11-0.59) K/uL Eos # (Auto) (0-0.5) K/uL Baso # (Auto) (0-0.2) K/uL PT (9.0-12.0) Seconds INR (0.9-1.1) APTT (21.0-31.0) Seconds PTT Ratio VBG pH (7.36-7.41) VBG pCO2 (38-50) mmHg VBG pO2 mmHg VBG HCO3 mmol/L VBG O2 Saturation % VBG Base Excess mEq/L Barometric Pressure mm/Hg Sodium (136-145) mmol/L Potassium (3.5-5.1) mmol/L Chloride (98-107) mmol/L Carbon Dioxide (21-32) mmol/L Anion Gap (3-11) BUN (7-18) mg/dl Creatinine (0.6-1.2) mg/dl Est Cr Clr Drug Dosing ml/min Est GFR ( Amer) Est GFR (Non-Af Amer) BUN/Creatinine Ratio (10-20) Glucose (70-99) mg/dl Lactate 0.8 (0.4-2.0) mmol/L Calcium (8.5-10.1) mg/dl Magnesium (1.8-2.4) mg/dl Total Bilirubin (0.2-1) mg/dl AST (15-37) U/L ALT (12-78) U/L Alkaline Phosphatase (45-117) U/L Troponin I (0-0.045) ng/ml NT-Pro-B Natriuret Pep (0-900) pg/ml Total Protein (6.4-8.2) gm/dl Albumin (3.4-5.0) gm/dl Globulin (2.5-4.0) gm/dl Albumin/Globulin Ratio (0.9-2) Urine Color Yellow Urine Appearance Clear (Clear) Urine pH 5.5 (4.5-7.5) Ur Specific [place] 1.017 (1.000-1.030) Urine Protein Negative (Negative) Urine Glucose (UA) Negative (Negative) Urine Ketones Negative (Negative) Urine Blood Negative (Negative) Urine Nitrite Negative (Negative) Urine Bilirubin Negative (Negative) Urine Urobilinogen Negative (Negative) Ur Leukocyte Esterase Negative (Negative) Influenza Type A Ag Neg for Influ A (Neg) Influenza Type B Ag Neg for Influ B (Neg) 07/28/19 Range/Units 03:28 WBC (4.8-10.8) K/uL RBC (4.2-5.4) M/uL Hgb (12.0-16.0) g/dL Hct (37-47) % MCV (80-100) fL MCH (25-34) pg MCHC (32-36) g/dL RDW Std Deviation (36.4-46.3) fL RDW Coeff of Arabella (11.5-14.5) % Plt Count (130-400) K/uL MPV (7.4-10.4) fL Immature Gran % (Auto) % Neut % (Auto) % Lymph % (Auto) % Teller % (Auto) % Eos % (Auto) % Baso % (Auto) % Immature Gran # (Auto) (0.00-0.02) K/uL Neut # (Auto) (1.4-6.5) K/uL Lymph # (Auto) (1.2-3.4) K/uL Teller # (Auto) (0.11-0.59) K/uL Eos # (Auto) (0-0.5) K/uL Baso # (Auto) (0-0.2) K/uL PT (9.0-12.0) Seconds INR (0.9-1.1) APTT (21.0-31.0) Seconds PTT Ratio VBG pH 7.30 L (7.36-7.41) VBG pCO2 82 H (38-50) mmHg VBG pO2 34 mmHg VBG HCO3 39 mmol/L VBG O2 Saturation < 60.0 % VBG Base Excess 10.2 mEq/L Barometric Pressure 744.4 mm/Hg Sodium (136-145) mmol/L Potassium (3.5-5.1) mmol/L Chloride (98-107) mmol/L Carbon Dioxide (21-32) mmol/L Anion Gap (3-11) BUN (7-18) mg/dl Creatinine (0.6-1.2) mg/dl Est Cr Clr Drug Dosing ml/min Est GFR ( Amer) Est GFR (Non-Af Amer) BUN/Creatinine Ratio (10-20) Glucose (70-99) mg/dl Lactate (0.4-2.0) mmol/L Calcium (8.5-10.1) mg/dl Magnesium (1.8-2.4) mg/dl Total Bilirubin (0.2-1) mg/dl AST (15-37) U/L ALT (12-78) U/L Alkaline Phosphatase (45-117) U/L Troponin I (0-0.045) ng/ml NT-Pro-B Natriuret Pep (0-900) pg/ml Total Protein (6.4-8.2) gm/dl Albumin (3.4-5.0) gm/dl Globulin (2.5-4.0) gm/dl Albumin/Globulin Ratio (0.9-2) Urine Color Urine Appearance (Clear) Urine pH (4.5-7.5) Ur Specific [place] (1.000-1.030) Urine Protein (Negative) Urine Glucose (UA) (Negative) Urine Ketones (Negative) Urine Blood (Negative) Urine Nitrite (Negative) Urine Bilirubin (Negative) Urine Urobilinogen (Negative) Ur Leukocyte Esterase (Negative) Influenza Type A Ag (Neg) Influenza Type B Ag (Neg) Imaging Data Attestation: I personally reviewed and interpreted this imaging study as follows: My Impression: CHEST X-RAY: Cardiomegaly. No obvious pulmonary infiltrate or consolidation. Mild vascular congestion. ECG Data Attestation: I personally reviewed and interpreted this ECG as follows: Indication: + SOB/dyspnea Rate (beats per minute): 72 Rhythm: + normal sinus ECG ST segments: no ST depression and no ST elevation ECG Findings: no PACs and no PVCs Blood Pressure Blood Pressure Findings: Elevated blood pressure Blood Pressure Disposition: elevated BP felt to be situational MDM Narrative The patient is a 69 year old female who presents to the emergency department with complaints of worsening SOB beginning a few weeks ago. The patient has a history of right-sided heart failure and COPD. She states that she has been mildly short of breath with a productive cough over the past couple weeks but that her symptoms seem to worsen yesterday. On physical exam, she does have a productive cough and her lungs do not seem clear. However, she is not actively wheezing. Chest x-ray shows no evidence of acute focal consolidation. There is some pul monary vascular congestion and this seems consistent with a COPD exacerbation versus an acute bronchitis. The patient was noted to be hypercapnic. She has had multiple previous episodes of respiratory failure. I discussed the case with the [facility] hospitalist and they will evaluate for further management. Impression & Plan COPD exacerbation, Hypercapnia, CHF (congestive heart failure) Discharge Plan Visit Data Chief Complaint: Weakness Stated Complaint: WEAKNESS/BODY ACHES ED Provider: Mara Lam Discharge Problem: COPD exacerbation, Hypercapnia, CHF (congestive heart failure) Patient Disposition: Being Evaluated by Hospitalist Discharge Instructions Interventions: ED Discharge Assessment Last Done: 07/28/19 05:04 Discharge Problem: CHF (congestive heart failure) Qualifiers: Heart failure type: unspecified Heart failure chronicity: unspecified Qualified Code(s): I50.9 - Heart failure, unspecified The scribe's documentation has been prepared under my direction and personally reviewed by me in its entirety. I confirm that the note above accurately reflects all work, treatment, procedures, and medical decision making performed by me.
[2019-07-28] MEDS ORDERED: INSULIN GLARGINE SOLOSTAR 100 UNITS/ML 3 ML PEN SC ONE (06:00)
[2019-07-28] MEDS: HEPARIN SOD 5,000 UNIT/0.5 ML VIAL SQ SCH ×3 (06:26→20:36)
[2019-07-28] MEDS: PROPAFENONE HCL 150 MG TABLET PO SCH ×3 (06:27→20:34)
[2019-07-28] MEDS: INSULIN ASPART 100 UNITS/ML 3 ML PEN SC SCH ×4 (06:27→20:29)
[2019-07-28] MEDS: LEVOTHYROXINE SODIUM 88 MCG TABLET PO SCH (06:28)
[2019-07-28 06:33] LABS: Base Excess VBG 13.7 mEq/L; Oxygen Saturation VBG 93.1 %; pH VBG 7.35 (7.36-7.41)
--- NOTE | 2019-07-28 06:55 | XRay Report ---
XR chest 1V portable CLINICAL HISTORY: SEPSIS COMPARISON STUDY: 04/12/2019 FINDINGS: The heart is mildly enlarged. There is stable prominence of central pulmonary vessels. Ther e is chronic interstitial thickening. There are left basilar opacities likely atelectatic although an infectious/inflammatory processes could appear similar. Postsurgical changes involve the right shoul nilda. There is evidence for a prior vertebroplasty.[ IMPRESSION: 1. Cardiomegaly and stable interstitial thickening 2. Left basilar opacity statistically atelectatic ACT 112: Negative or not required by law. Electronically signed by: Fox Garcia M.D. 07/28/2019 6:54 AM
[2019-07-28] MEDS ORDERED: XOPENEX/ATROVENT 1.25mg/0.5MG NEB COMBO NEB SCH (07:00)
[2019-07-28] MEDS: LEVALBUTEROL 1.25MG/0.5ML NEB INH SCH ×3 (07:35→19:34)
[2019-07-28] MEDS: IPRATROPIUM BROMIDE NEB SOLN 0.02% 2.5 ML VIAL INH SCH ×3 (07:35→19:34)
[2019-07-28] MEDS ORDERED: INFLUENZA Vaccine HIGH DOSE 65+yrs 0.5 mL Syr IM ONE (08:00)
[2019-07-28] MEDS: allopurinoL 300 MG TAB PO SCH (08:35)
[2019-07-28] MEDS: predniSONE 20 MG TAB PO SCH (08:35)
[2019-07-28] MEDS: ROFLUMILAST 500 MCG TAB PO SCH (08:35)
[2019-07-28] MEDS: SERTRALINE HCL 50 MG TABLET PO SCH (08:35)
[2019-07-28] MEDS: MULTIVITAMIN TAB PO SCH (08:36)
[2019-07-28] MEDS: FAMOTIDINE 10 MG TABLET PO SCH ×2 (08:36→20:35)
--- NOTE | 2019-07-28 10:53 | Pulmonary Consultation ---
Date of Consultation July 28, 2019 Assessment & Plan (1) Acute on chronic respiratory failure with hypoxia and hypercapnia: --Acute on chronic hypoxic hypercapnic respiratory failure Likely secondary to COPD exacerbation No clear infiltrate appreciated, left lower lobe opacity likely represents prior bronchiectatic changes which are appreciated even on CAT scan done 06/22/2017 Continue with inhaled bronchodilator therapy, prednisone 40 mg to be taken for 5 days, will add nebulized Mucomyst and flutter valve Continue with doxycycline for total of 5 days O2 supplementation to keep oxygen saturation between 88 to 92% BiPAP nightly and PRN shortness of breath --History of COPD Patient is onBreo Ellipta as well as Roflumilast at home. Prior to discharge lama inhaler should be added to the regimen [Spiriva/Incruse] --Bronchiectasis Continue with flutter valve and Mucomyst --SIMONA/OHS Continue with CPAP nightly and BiPAP PRN shortness of breath Please note the above document was generated using voice recognition software. It may contain grammatical, syntax or spelling errors. (2) COPD exacerbation: (3) Shortness of breath: (4) Obesity hypoventilation syndrome: (5) Bronchiectasis: History of Present Illness Attending Physician: Tonie Ann, History of Present Illness 69-year-old female with past medical history of chronic hypoxic hypercapnic respiratory failure secondary to COPD on home O2, obstructive sleep apnea on CPAP, pulmonary hypertension,CKD, paroxysmal A. fib off anticoagulation, diastolic CHF comes to the hospital with complaints of worsening shortness of breath which has been going on since last 7 to 10 days associated with yellowish phlegm. Subjective fever. Chills at home. Denies any dysuria, positive loose bowel movements since last 2 days prior to coming in. No nausea or vomiting, no abdominal pain, no dizziness, no blurry vision. Mild headache nonradiating frontal. No recent upper respiratory infections. Denies any sick contacts. No hematuria, no hematochezia. No weight loss, no night sweats. Social history: Greater than [id number] smoking history quit approximately 12 years ago, no alcohol use, no illicit drug use. 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 Family history of lung cancer in the sister who because of it. No personal history of cancer. Allergies Allergy/AdvReac Type Severity Reaction Status Date / Time adhesive Allergy Severe RED RASH Verified 07/28/19 01:37 latex AdvReac Mild TAPE-SORE Verified 07/28/19 01:37 morphine AdvReac Mild DELUSIONS Verified 07/28/19 01:37 Home Medications Home Medications Medication Instructions Recorded Confirmed Type Breo Ellipta 1 inh INHALATION DAILY 03/12/18 07/28/19 History Daliresp 500 mcg PO DAILY 03/12/18 07/28/19 History allopurinol 300 mg PO QAM 03/12/18 07/28/19 History atorvastatin 20 mg PO QPM 03/12/18 07/28/19 History cholecalciferol (vitamin D3) 2,000 unit PO QAM 03/12/18 07/28/19 History [Vitamin D3] gabapentin 300 mg PO HS 03/12/18 07/28/19 History levothyroxine 88 mcg PO DAILYBB 03/12/18 07/28/19 History metoprolol succinate 50 mg PO QAM 03/12/18 07/28/19 History multivitamin 1 tab PO QAM 03/12/18 07/28/19 History potassium chloride 20 meq PO Q OTHER DAY 03/12/18 07/28/19 History propafenone 150 mg PO Q8H 03/12/18 07/28/19 History ranitidine HCl 150 mg PO BID 03/12/18 07/28/19 History sertraline [Zoloft] 25 mg PO QAM 03/12/18 07/28/19 History albuterol sulfate 2.5 mg INHALATION Q6 PRN 08/07/18 07/28/19 History ondansetron 4 mg PO Q6H PRN #14 tab 02/24/19 07/28/19 Rx bumetanide 1 mg PO BID 07/28/19 07/28/19 History metolazone 2.5 mg PO 2XWK 07/28/19 07/28/19 History Patient History Social History Preferred Language: Montserratian Communication Ability: Effective 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 Beliefs That Will Affect Care: None marital status: Current Living Situation: Family Current Living Situation Comment: Lives with daughter Other Information That Helps Us Care for You: No Feels Safe at Home: Yes Safety Concerns: Feels Safe At This Time Smoking Status: Former smoker Tobacco Type: cigarettes ; Cigarettes Per Day: 2 packs ; Do You Dip or Chew Tobacco: No ; Smoking End Date: at least 12 years ; Second Hand Exposure: No ; Hx Alcohol Use: No Hx Substance Use: No Review of Systems Review of Systems: All systems reviewed & are unremarkable except as noted in HPI & below Physical Exam Physical Exam: Constitutional: No acute distress HEENT: EOMI, PERRLA, moist mucous membranes, Mallampati 4 Respiratory system: Decreased air entry bilaterally, positive bilateral lower lobe crackles, no wheeze, mild rhonchi CVS: S1-S2 positive, no murmurs or gallops Abdomen: Soft, nontender, nondistended, positive bowel sounds x4, obese Extremities: +2 pulses bilaterally radialis/ dorsalis pedis, no cyanosis, no edema Neuro: Awake alert oriented x3 Psych: Normal mood and affect G/U: No Niño Skin: no rashes, warm and dry Lymphatic: no cervical or axillary lymphadenopathy Results & Data Vital Signs (Past 12 Hours) Vital Signs Temp Pulse Pulse Pulse Resp BP BP 07/28/19 08:00 70 07/28/19 07:45 36.4 C L 70 16 148/73 H 07/28/19 07:36 95 H 95 H 14 07/28/19 05:55 76 24 07/28/19 05:34 75 07/28/19 05:26 36.5 C 74 20 154/80 H 07/28/19 04:53 78 18 171/56 H 07/28/19 04:27 71 18 181/73 H 07/28/19 03:12 77 18 171/68 H 07/28/19 02:43 77 18 07/28/19 01:43 77 18 165/71 H 07/28/19 01:24 07/28/19 00:38 37.1 C 72 18 171/88 H Pulse Ox 07/28/19 08:00 07/28/19 07:45 99 07/28/19 07:36 99 07/28/19 05:55 96 07/28/19 05:34 07/28/19 05:26 97 07/28/19 04:53 94 07/28/19 04:27 98 07/28/19 03:12 98 01/17/20 02:43 98 07/28/19 01:43 99 07/28/19 01:24 99 07/28/19 00:38 99 07/28/19 01:10 07/28/19 01:10 Diagnostic Findings Chest x-ray personally reviewed:Portable film, good inspiratory effort, ce ntrally paced, right costophrenic cardiophrenic angle is clean, left costophrenic angles lobe with hazy retrocardiac opacity present. (Patient has left lower lobe bronchiectasis from before) increased hilar markings. CT chest without contrast 06/22/2017 personally reviewed: Patient has bronchiectasis and atelectasis of the left lower lobe, centrilobular emphysema and airway trapping appreciated. PG Care Time/CCT Total # of Minutes Spent Total Time Spent with Patient: Total time spent is greater than 50% in coordination of care (as documented) at patient's floor/unit and/or counseling patient:
--- NOTE | 2019-07-28 11:36 | Electrocardiogram Report ---
Test Reason : Blood Pressure : / mmHG Vent. Rate : 072 BPM Atrial Rate : 072 BPM P-R Int : 176 ms QRS Dur : 094 ms QT Int : 380 ms P-R-T Axes : 046 064 070 degrees QTc Int : 416 ms Poor data quality, interpretation may be adversely affected Normal sinus rhythm Incomplete right bundle branch block Borderline ECG When compared with ECG of 24-FEB-2019 11:20, No significant change was found Confirmed by Castillo Antoine ([id number]) on 07/28/2019 11:35:52 AM Referred By: REFERRED SELF Confirmed By:Castillo Antoine
--- NOTE | 2019-07-28 17:47 | Hospitalist Progress Note ---
Date of Service July 28, 2019 Assessment & Plan (1) Acute and chronic respiratory failure with hypercapnia: Acute hypoxia and hypercapnia likely secondary to COPD exacerbation. Atelectasis is present on imaging and no clear evidence of pneumonia. Continue prednisone for 5 days in addition to nebulized Mucomyst and flutter valve per pulmonology. Continue doxycycline for total of 5 days. Continue oxygen supplementation and nightly BiPAP. Daughter brought her BiPAP machine in from [facility]. COPD exacerbation, complicated bronchitis, no sepsis (2) Bronchiectasis: Continue flutter valve and Mucomyst (3) COPD exacerbation: cont plan as above and Roflumilast per home regimen. (4) Back pain: New and likely musculoskeletal based on clinical history and physical exam. Ordered K pad. As she reports tramadol is ineffective we will schedule Tylenol and give as needed oxycodone only during this hospitalization. She will not be going home with this. She declines a lidocaine patch as she used it at home for her shoulder and this was ineffective. Will monitor. (5) Diarrhea: resolved and patient reports formed stool. Requests solid food which was ordered. (6) DMII (diabetes mellitus, type 2): Basal bolus insulin with carb coverage and sliding scale. Patient's blood sugar is currently at goal. Recent A1c reflects good control. (7) Anemia: chronic and at baseline. Likely multifactorial secondary to chronic disease. She has frequent recent hospitalizations this year including approximately 4 in the last 5 months. Will draw iron studies in a.m. and trend CBC. No active bleeding noted. (8) Morbid obesity: (9) PAF (paroxysmal atrial fibrillation): Currently in sinus rhythm with no evidence of event overnight on telemetry. Continue Toprol-XL 50 mg p.o. every morning, propafenone 150 mg p.o. every 8. She is followed by [facility] cardiology and has a questionable history of paroxysmal atrial fibrillation based on her medications however there is no available records to substantiate this. Continue home regimen. (10) SIMONA (obstructive sleep apnea): SIMONA/OHP. Continue home BiPAP. (11) DVT prophylaxis: Subjective 69-year-old female with obesity hypoventilation syndrome and COPD presented with 7 to 10 days of productive cough and worsening shortness of breath. She was admitted overnight for COPD exacerbation. She states she is not sure how she is feeling today compared to yesterday. She now is reporting some lower right back pain that occurred 2 to 3 days ago at home. She denies any trauma and has no idea where this came from. She denies any history of pain like this in the past. She reports a resolution of her diarrhea and formed stool today. She is declining clear liquid tray and requesting food to be given. Review of Systems Review of Systems: All systems reviewed & are unremarkable except as noted in HPI & below Physical Exam Physical Exam: CONSTITUTIONAL: obesity, vitals as above, generally well- appearing EYES: normal conjunctivae, no scleral icterus ENT: MMM RESPIRATORY: wheezing throughout all lung valdez and suboptimal air movement. CARDIOVASCULAR: regular rate and rhythm, S1 and 2 heard without murmurs, gallops or rubs, no JVD, no peripheral edema GASTROINTESTINAL: soft, nontender, nondistended MUSCULOSKELETAL: strength 5/5 throughout, head is normocephalic and atraumatic, palpable tenderness on lower right pirifomis area and along lateral lumbar area on the right back. Skin intact, no ecchymosis or other signs of trauma. SKIN: warm and dry NEUROLOGIC: CN 2-12 grossly intact, normal cognition, normal speech, no gross focal deficits PSYCHIATRIC: alert cooperative and oriented to person, place and time. Results & Data Vital Signs (Past 12 Hours) Vital Signs Temp Pulse Pulse Pulse Resp BP BP 07/28/19 15:44 68 07/28/19 15:10 37.0 C 71 18 143/77 H 07/28/19 13:17 71 16 07/28/19 11:30 36.4 C L 69 16 149/67 H 07/28/19 11:08 07/28/19 08:00 70 07/28/19 07:45 36.4 C L 70 16 148/73 H 07/28/19 07:36 95 H 95 H 14 07/28/19 05:55 76 24 Pulse Ox Pulse Ox Pulse Ox Pulse Ox 07/28/19 15:44 07/28/19 15:10 96 07/28/19 13:17 98 07/28/19 11:30 97 07/28/19 11:08 91 95 84 L 07/28/19 08:00 07/28/19 07:45 99 07/28/19 07:36 99 07/28/19 05:55 96 Laboratory Results Short CBC 07/28/19 Range/Units 01:10 WBC 10.47 (4.8-10.8) K/uL Hgb 8.6 L (12.0-16.0) g/dL Hct 28.3 L (37-47) % Plt Count 180 (130-400) K/uL BMP 07/28/19 01:10 Sodium 140 Potassium 5.0 Chloride 98 Carbon Dioxide 42 H* BUN 25 H Creatinine 1.27 H Glucose 101 H Calcium 10.2 H Cardiac Enzymes 07/28/19 Range/Units 01:10 Troponin I < 0.015 (0-0.045) ng/ml Liver Function 07/28/19 Range/Units 01:10 Total Bilirubin 0.2 (0.2-1) mg/dl AST 5 L (15-37) U/L ALT 12 (12-78) U/L Alkaline Phosphatase 81 (45-117) U/L Albumin 2.9 L (3.4-5.0) gm/dl Urine 07/28/19 Range/Units 01:42 Urine Color Yellow Urine Appearance Clear (Clear) Urine pH 5.5 (4.5-7.5) Ur Specific [place] 1.017 (1.000-1.030) Urine Protein Negative (Negative) Urine Glucose (UA) Negative (Negative) Medications Administered Current Inpatient Medications Acetaminophen (Tylenol) 650 mg PO Q4H PRN PRN Reason: Pain or Fever Stop: 08/27/19 05:23 Acetylcysteine (Mucomyst 20%) 5 ml INH Q12R [facility] Stop: 08/27/19 18:59 Allopurinol (Zyloprim) 300 mg PO QAM [facility] Stop: 08/27/19 08:59 Last Admin: 07/28/19 08:35 Dose: 300 mg Documented by: Amlodipine Besylate (Norvasc) 2.5 mg PO QAM [facility] Stop: 08/28/19 08:59 Atorvastatin Calcium (Lipitor) 20 mg PO QPM [facility] Stop: 08/27/19 20:59 Dextrose (Dextrose 50%) 25 - 50 ml IV UD PRN; Protocol PRN Reason: Hypoglycemia Protocol Stop: 08/27/19 05:23 Doxycycline Hyclate (Vibramycin) 100 mg PO BID [facility] Stop: 08/04/19 20:59 Famotidine (Pepcid) 10 mg PO BID [facility] Stop: 08/27/19 08:59 Last Admin: 07/28/19 08:36 Dose: 10 mg Documented by: Glucagon (Glucagen) 1 mg SQ UD PRN; Protocol PRN Reason: Hypoglycemia Protocol Stop: 08/27/19 05:23 Glucose (Dex4 Glucose) 4 - 8 tabs PO UD PRN; Protocol PRN Reason: Hypoglycemia Protocol Stop: 08/27/19 05:23 Glucose (Glucose 40%) 15 - 30 gm PO UD PRN; Protocol PRN Reason: Hypoglycemia Protocol Stop: 08/27/19 05:23 Heparin Sodium (Porcine) (Heparin Sodium (Porcine)) 5,000 units SQ Q8 [facility] Stop: 08/27/19 05:59 Last Admin: 07/28/19 13:51 Dose: 5,000 units Documented by: Promethazine HCl 12.5 mg/ (Sodium Chloride) 50.5 mls @ 202 mls/hr IV Q6H PRN PRN Reason: Nausea And Vomiting Stop: 08/27/19 05:23 Insulin Aspart (Novolog Flexpen) 0 units SC ACHS [facility] Stop: 08/27/19 05:59 Last Admin: 07/28/19 17:20 Dose: Not Given Documented by: Insulin Glargine (Lantus Solostar Pen) 5 units SC DAILY [facility] Stop: 08/28/19 08:59 Ipratropium [place] (Atrovent 0.02% 0.5mg/2.5ml) 0.5 mg INH Q6R [facility] Stop: 08/27/19 06:59 Last Admin: 07/28/19 13:16 Dose: 0.5 mg Documented by: Levalbuterol HCl (Xopenex 1.25mg/0.5ml Neb) 1.25 mg INH Q6R [facility] Stop: 08/27/19 06:59 Last Admin: 07/28/19 13:16 Dose: 1.25 mg Documented by: Levothyroxine Sodium (Synthroid) 88 mcg PO DAILYBB [facility] Stop: 08/27/19 06:29 Last Admin: 07/28/19 06:28 Dose: 88 mcg Documented by: Metoprolol Succinate (Toprol Xl) 50 mg PO QAM [facility] Stop: 08/28/19 08:59 Miscellaneous (Carbohydrates For Hypoglycemia) 15 - 30 gm PO UD PRN PRN Reason: Hypoglycemia Protocol Stop: 08/27/19 05:23 Multivitamins (Multivitamin Tab) 1 tab PO QAM [facility] Stop: 08/27/19 08:59 Last Admin: 07/28/19 08:36 Dose: 1 tab Documented by: Nitroglycerin (Nitrostat) 0.4 mg SL UD PRN PRN Reason: Chest Pain Stop: 08/27/19 05:23 Prednisone (Prednisone) 40 mg PO DAILY [facility] Stop: 08/01/19 08:59 Last Admin: 07/28/19 08:35 Dose: 40 mg Documented by: Propafenone HCl (Rythmol) 150 mg PO Q8H [facility] Stop: 08/27/19 05:59 Last Admin: 07/28/19 13:55 Dose: 150 mg Documented by: Roflumilast (Daliresp) 500 mcg PO DAILY [facility] Stop: 08/27/19 08:59 Last Admin: 07/28/19 08:35 Dose: 500 mcg Documented by: Sertraline HCl (Zoloft) 25 mg PO QAM [facility] Stop: 08/27/19 08:59 Last Admin: 07/28/19 08:35 Dose: 25 mg Documented by: Tramadol HCl (Ultram) 25 mg PO Q4H PRN PRN Reason: Pain Stop: 08/27/19 05:23 Last Admin: 07/28/19 17:26 Dose: 25 mg Documented by:
[2019-07-28] MEDS: OXYCODONE HCL IR 5 MG TAB (IMMEDIATE RELEASE) PO PRN (19:31)
[2019-07-28] MEDS: ACETYLCYSTEINE 20% INHAL SOLN 30ML***DISPENSED BY RESP. INH SCH (19:34)
[2019-07-28] MEDS: DOXYCYCLINE HYCLATE 100 MG CAP PO SCH (20:35)
[2019-07-28] MEDS: ATORVASTATIN 20 MG TAB PO SCH (20:36)
[2019-07-28] MEDS: ACETAMINOPHEN 500 MG TAB PO SCH (20:59)
[2019-07-28] MEDS ORDERED: ACETAMINOPHEN 500 MG TAB ONE (20:59)
[2019-07-29] MEDS: LEVALBUTEROL 1.25MG/0.5ML NEB INH SCH ×4 (00:38→19:12)
[2019-07-29] MEDS: IPRATROPIUM BROMIDE NEB SOLN 0.02% 2.5 ML VIAL INH SCH ×4 (00:38→19:12)
[2019-07-29] MEDS ORDERED: OXYCODONE HCL IR 5 MG TAB (IMMEDIATE RELEASE) PO STA (01:07)
[2019-07-29] MEDS: LIDOCAINE 5% 1 PATCH TD SCH ×2 (04:35→21:07)
[2019-07-29] MEDS: HEPARIN SOD 5,000 UNIT/0.5 ML VIAL SQ SCH ×3 (05:47→21:09)
[2019-07-29] MEDS: LEVOTHYROXINE SODIUM 88 MCG TABLET PO SCH (05:48)
[2019-07-29] MEDS: ACETAMINOPHEN 500 MG TAB PO SCH ×3 (05:50→21:06)
[2019-07-29] MEDS: PROPAFENONE HCL 150 MG TABLET PO SCH ×3 (05:52→21:09)
[2019-07-29 07:24] LABS: Basophils # (auto) 0.03 K/uL (0-0.2); Basophils % (auto) 0.2 %; Eosinophils % (auto) 0.7 %; Hematocrit (blood only) 27.7 % (37-47); Hemoglobin 8.5 g/dL (12.0-16.0); Immature Granulocytes # (auto) 0.04 K/uL (0.00-0.02); Immature Granulocytes % (auto) 0.3 %; Lymphocytes % (auto) 13.8 %; Mean Corpuscular Hemoglobin 30.7 pg (25-34); Mean Corpuscular Hgb Conc 30.7 g/dL (32-36); Mean Platelet Volume 9.1 fL (7.4-10.4); Monocytes # (auto) 0.86 K/uL (0.11-0.59); Monocytes % (auto) 6.3 %; Neutrophils # (auto) 10.81 K/uL (1.4-6.5); Neutrophils % (auto) 78.7 %; Platelet Count 183 K/uL (130-400); RDW Coefficient of Variation 15.1 % (11.5-14.5); RDW Standard Deviation 55.6 fL (36.4-46.3); Red Blood Count 2.77 M/uL (4.2-5.4); White Blood Count 13.74 K/uL (4.8-10.8)
[2019-07-29] MEDS: ACETYLCYSTEINE 20% INHAL SOLN 30ML***DISPENSED BY RESP. INH SCH ×2 (07:34→19:13)
[2019-07-29 08:00] LABS: BUN Creatinine Ratio 26.2 (10-20); Creatinine Clr Calc Pharmacy 42.9 ml/min; Est GFR (African American) 43.3; Est GFR (Non-African American) 37.4; Ferritin 636.7 ng/ml (8-388); Potassium 4.1 mmol/L (3.5-5.1)
[2019-07-29] MEDS: DOXYCYCLINE HYCLATE 100 MG CAP PO SCH ×2 (08:17→21:08)
[2019-07-29] MEDS: FAMOTIDINE 10 MG TABLET PO SCH ×2 (08:17→21:09)
[2019-07-29] MEDS: allopurinoL 300 MG TAB PO SCH (08:17)
[2019-07-29] MEDS: METOPROLOL SUCC 50MG EXT REL TAB PO SCH (08:17)
[2019-07-29] MEDS: predniSONE 20 MG TAB PO SCH (08:17)
[2019-07-29] MEDS: SERTRALINE HCL 50 MG TABLET PO SCH (08:17)
[2019-07-29] MEDS: INSULIN GLARGINE SOLOSTAR 100 UNITS/ML 3 ML PEN SC SCH (08:18)
[2019-07-29] MEDS: ROFLUMILAST 500 MCG TAB PO SCH (08:18)
[2019-07-29] MEDS: MULTIVITAMIN TAB PO SCH (08:18)
[2019-07-29] MEDS: AMLODIPINE BESYLATE 5 MG TAB PO SCH (08:18)
[2019-07-29] MEDS: INSULIN ASPART 100 UNITS/ML 3 ML PEN SC SCH ×4 (08:19→21:10)
--- NOTE | 2019-07-29 11:06 | Pulmonology Progress Note ---
Date of Service July 29, 2019 Assessment & Plan (1) Acute on chronic respiratory failure with hypoxia and hypercapnia: --Acute on chronic hypoxic hypercapnic respiratory failure Likely secondary to COPD exacerbation CXR: 07/28/19: No clear infiltrate appreciated, left lower lobe opacity likely represents prior bronchiectatic changes which are appreciated even on CAT scan done 06/22/2017 Continue with inhaled bronchodilator therapy, prednisone 40 mg to be taken for 5 days, nebulized Mucomyst and flutter valve added Continue with doxycycline for total of 5 days O2 supplementation to keep oxygen saturation between 88 to 92% BiPAP nightly and PRN shortness of breath --History of COPD Patient is on Breo Ellipta as well as Roflumilast at home. Prior to discharge lama inhaler should be added to the regimen [Spiriva/Incruse] --Bronchiectasis Continue with flutter valve and Mucomyst --SIMONA/OHS Continue with CPAP nightly and BiPAP PRN shortness of breath No further recommendation from pulmonary perspective. Recall if needed. Please note the above document was generated using voice recognition software. It may contain grammatical, syntax or spelling errors. (2) COPD exacerbation: (3) Shortness of breath: (4) Obesity hypoventilation syndrome: (5) Bronchiectasis: Subjective Patient seen and examined at bedside. No acute distress, no adverse events overnight. Shortness of breath is improved. Cough is decreased in intensity. Denies any chest pain, no headache, no nausea, no vomiting, no abdominal pain. Good appetite. Use her own CPAP overnight which was brought in by her daughter. Review of Systems Review of Systems: All systems reviewed & are unremarkable except as noted in HPI & below Physical Exam Physical Exam: Constitutional: No acute distress HEENT: EOMI, PERRLA, moist mucous membranes, Mallampati 4 Respiratory system: Decreased air entry bilaterally, positive bilateral lower lo be crackles, no wheeze, mild rhonchi CVS: S1-S2 positive, no murmurs or gallops Abdomen: Soft, nontender, nondistended, positive bowel sounds x4, obese Extremities: +2 pulses bilaterally radialis/ dorsalis pedis, no cyanosis, no edema Neuro: Awake alert oriented x3 Psych: Normal mood and affect G/U: No [place] Skin: no rashes, warm and dry Lymphatic: no cervical or axillary lymphadenopathy Results & Data Vital Signs (Past 12 Hours) Vital Signs Temp Pulse Pulse Resp BP BP Pulse Ox 07/29/19 07:35 68 16 99 07/29/19 07:00 36.9 C 79 20 111/66 100 07/29/19 05:51 74 152/71 H 07/29/19 04:55 37.1 C 74 18 144/64 H 96 07/29/19 00:40 77 16 97 07/28/19 23:52 37.2 C 80 20 119/58 L 91 07/29/19 06:58 07/29/19 06:58 PG Care Time/CCT Total # of Minutes Spent Total Time Spent with Patient: Total time spent is greater than 50% in coordination of care (as documented) at patient's floor/unit and/or counseling patient:
--- NOTE | 2019-07-29 11:51 | Hospitalist Progress Note ---
Date of Service July 29, 2019 Assessment & Plan (1) Acute and chronic respiratory failure with hypercapnia: Acute hypoxia and hypercapnia likely secondary to COPD exacerbation. Atelectasis is present on imaging and no clear evidence of pneumonia. Continue prednisone for 5 days in addition to nebulized Mucomyst and flutter valve per pulmonology. Continue doxycycline for total of 5 days. Continue oxygen supplementation and nightly BiPAP. (2) Bronchiectasis: Continue flutter valve and Mucomyst (3) COPD exacerbation: cont plan as above and Roflumilast per home regimen. (4) Back pain: New and likely musculoskeletal based on clinical history and physical exam. Cont K pad, lidocaine patch, Tylenol (5) DMII (diabetes mellitus, type 2): Basal bolus insulin with carb coverage and sliding scale. Patient's blood sugar is currently at goal. Recent A1c reflects good control. (6) Anemia: chronic and at baseline. Likely multifactorial secondary to chronic disease. She has frequent recent hospitalizations this year including approximately 4 in the last 5 months. No active bleeding noted. (7) Morbid obesity: Lifestyle modifications encouraged. (8) PAF (paroxysmal atrial fibrillation): Currently in sinus rhythm with no evidence of event overnight on telemetry. Continue Toprol-XL 50 mg p.o. every morning, propafenone 150 mg p.o. every 8. She is followed by [facility] cardiology and has a questionable history of paroxysmal atrial fibrillation based on her medications however there is no available records to substantiate this. Continue home regimen. (9) SIMONA (obstructive sleep apnea): SIMONA/OHP. Continue home BiPAP. (10) DVT prophylaxis: Heparin Full Code Dispo-to home when medically stable. Pending PT/OT recs. Tonie Ann DO [facility] Hospitalist Subjective Patient is doing well today. Some improvement in back pain overnight. Heating pad seem to have helped. She reports an improvement in her cough today. Breathing is approximately same. She did wear her CPAP according to her her reports. Review of Systems Review of Systems: All systems reviewed & are unremarkable except as noted in HPI & below Physical Exam Physical Exam: CONSTITUTIONAL: obesity, vitals as above, generally well- appearing EYES: normal conjunctivae, no scleral icterus ENT: MMM RESPIRATORY: wheezing throughout all lung valdez with improvement in airflow. CARDIOVASCULAR: regular rate and rhythm, S1 and 2 heard without murmurs, gallops or rubs, no JVD, no peripheral edema GASTROINTESTINAL: soft, nontender, nondistended MUSCULOSKELETAL: strength 5/5 throughout, head is normocephalic and atraumatic, palpable tenderness on lower right pirifomis area and along lateral lumbar area on the right back. Skin intact, no ecchymosis or other signs of trauma. SKIN: warm and dry NEUROLOGIC: CN 2-12 grossly intact, normal cognition, normal speech, no gross focal deficits PSYCHIATRIC: alert cooperative and oriented to person, place and time. Results & Data Vital Signs (Past 12 Hours) Vital Signs Temp Pulse Pulse Resp BP BP Pulse Ox 07/29/19 11:00 36.7 C 75 20 130/69 97 07/29/19 07:35 68 16 99 07/29/19 07:00 36.9 C 79 20 111/66 100 07/29/19 05:51 74 152/71 H 07/29/19 04:55 37.1 C 74 18 144/64 H 96 07/29/19 00:40 77 16 97 07/28/19 23:52 37.2 C 80 20 119/58 L 91 Laboratory Results Short CBC 07/29/19 Range/Units 06:58 WBC 13.74 H (4.8-10.8) K/uL Hgb 8.5 L (12.0-16.0) g/dL Hct 27.7 L (37-47) % Plt Count 183 (130-400) K/uL BMP 07/29/19 06:58 Sodium 138 Potassium 4.1 D Chloride 97 L Carbon Dioxide 39 H BUN 37 H Creatinine 1.41 H Glucose 101 H Calcium 10.0 Medications Administered Current Inpatient Medications Acetaminophen (Tylenol) 1,000 mg PO Q8 [facility] Stop: 08/27/19 21:59 Last Admin: 07/29/19 05:50 Dose: 1,000 mg Documented by: Acetylcysteine (Mucomyst 20%) 5 ml INH Q12R [facility] Stop: 08/27/19 18:59 Last Admin: 07/29/19 07:34 Dose: 5 ml Documented by: Allopurinol (Zyloprim) 300 mg PO QAM [facility] Stop: 08/27/19 08:59 Last Admin: 07/29/19 08:17 Dose: 300 mg Documented by: Amlodipine Besylate (Norvasc) 2.5 mg PO QAM [facility] Stop: 08/28/19 08:59 Last Admin: 07/29/19 08:18 Dose: 2.5 mg Documented by: Atorvastatin Calcium (Lipitor) 20 mg PO QPM [facility] Stop: 08/27/19 20:59 Last Admin: 07/28/19 20:36 Dose: 20 mg Documented by: Dextrose (Dextrose 50%) 25 - 50 ml IV UD PRN; Protocol PRN Reason: Hypoglycemia Protocol Stop: 08/27/19 05:23 Doxycycline Hyclate (Vibramycin) 100 mg PO BID [facility] Stop: 08/04/19 20:59 Last Admin: 07/29/19 08:17 Dose: 100 mg Documented by: Famotidine (Pepcid) 10 mg PO BID [facility] Stop: 08/27/19 08:59 Last Admin: 07/29/19 08:17 Dose: 10 mg Documented by: Glucagon (Glucagen) 1 mg SQ UD PRN; Protocol PRN Reason: Hypoglycemia Protocol Stop: 08/27/19 05:23 Glucose (Dex4 Glucose) 4 - 8 tabs PO UD PRN; Protocol PRN Reason: Hypoglycemia Protocol Stop: 08/27/19 05:23 Glucose (Glucose 40%) 15 - 30 gm PO UD PRN; Protocol PRN Reason: Hypoglycemia Protocol Stop: 08/27/19 05:23 Heparin Sodium (Porcine) (Heparin Sodium (Porcine)) 5,000 units SQ Q8 [facility] Stop: 08/27/19 05:59 Last Admin: 07/29/19 05:47 Dose: 5,000 units Documented by: Promethazine HCl 12.5 mg/ (Sodium Chloride) 50.5 mls @ 202 mls/hr IV Q6H PRN PRN Reason: Nausea And Vomiting Stop: 08/27/19 05:23 Insulin Aspart (Novolog Flexpen) 0 units SC ACHS [facility] Stop: 08/27/19 05:59 Last Admin: 07/29/19 08:19 Dose: 2 units Documented by: Insulin Glargine (Lantus Solostar Pen) 5 units SC DAILY [facility] Stop: 08/28/19 08:59 Last Admin: 07/29/19 08:18 Dose: 5 units Documented by: Ipratropium [place] (Atrovent 0.02% 0.5mg/2.5ml) 0.5 mg INH Q6R [facility] Stop: 08/27/19 06:59 Last Admin: 07/29/19 07:34 Dose: 0.5 mg Documented by: Levalbuterol HCl (Xopenex 1.25mg/0.5ml Neb) 1.25 mg INH Q6R [facility] Stop: 08/27/19 06:59 Last Admin: 07/29/19 07:34 Dose: 1.25 mg Documented by: Levothyroxine Sodium (Synthroid) 88 mcg PO DAILYBB [facility] Stop: 08/27/19 06:29 Last Admin: 07/29/19 05:48 Dose: 88 mcg Documented by: Lidocaine (Lidoderm 5%) 1 patch TD HS [facility] Stop: 08/28/19 01:29 Last Admin: 07/29/19 04:35 Dose: 1 patch Documented by: Metoprolol Succinate ([facility] Xl) [facility] Stop: 08/28/19 08:59 Last Admin: 07/29/19 08:17 Dose: 50 mg Documented by: Miscellaneous (Carbohydrates For Hypoglycemia) 15 - 30 gm PO UD PRN PRN Reason: Hypoglycemia Protocol Stop: 08/27/19 05:23 Miscellaneous (Remove Lidoderm Patch) 1 ea N/A [facility] Stop: 08/28/19 09:59 Last Admin: 07/29/19 09:59 Dose: 1 ea Documented by: Multivitamins (Multivitamin Tab) 1 tab PO [facility] Stop: 08/27/19 08:59 Last Admin: 07/29/19 08:18 Dose: 1 tab Documented by: Nitroglycerin (Nitrostat) 0.4 mg SL UD PRN PRN Reason: Chest Pain Stop: 08/27/19 05:23 Oxycodone HCl (Roxicodone Immediate Rel) 5 mg PO Q8H PRN PRN Reason: Severe Pain Stop: 08/11/19 18:19 Last Admin: 07/28/19 19:31 Dose: 5 mg Documented by: Prednisone (Prednisone) 40 mg PO DAILY [facility] Stop: 08/01/19 08:59 Last Admin: 07/29/19 08:17 Dose: 40 mg Documented by: Propafenone HCl (Rythmol) 150 mg PO Q8H [facility] Stop: 08/27/19 05:59 Last Admin: 07/29/19 05:52 Dose: 150 mg Documented by: Roflumilast (Daliresp) 500 mcg PO DAILY [facility] Stop: 08/27/19 08:59 Last Admin: 07/29/19 08:18 Dose: 500 mcg Documented by: Sertraline HCl (Zoloft) 25 mg PO QAM [facility] Stop: 08/27/19 08:59 Last Admin: 07/29/19 08:17 Dose: 25 mg Documented by:
[2019-07-29] MEDS: ATORVASTATIN 20 MG TAB PO SCH (21:08)
[2019-07-29] MEDS: OXYCODONE HCL IR 5 MG TAB (IMMEDIATE RELEASE) PO PRN (23:32)
[2019-07-30] MEDS: LEVALBUTEROL 1.25MG/0.5ML NEB INH SCH ×4 (00:09→20:08)
[2019-07-30] MEDS: IPRATROPIUM BROMIDE NEB SOLN 0.02% 2.5 ML VIAL INH SCH ×4 (00:09→20:08)
[2019-07-30] MEDS ORDERED: ALBUT/IPRATROP 3MG/0.5MG NEB 3 ML VIAL NEB STA (03:16)
[2019-07-30] MEDS ORDERED: OLANZAPINE 2.5 MG TAB PO STA (03:17)
[2019-07-30] MEDS: MAGNESIUM SULFATE / D5W 1 GM/100 ML BAG IV SCH ×2 (03:30→04:43)
[2019-07-30] MEDS ORDERED: methylPREDNISolone 40 MG in SYRINGE 0 ML IV ONE (03:30)
[2019-07-30 03:53] LABS: Base Excess ABG 11.4 mEq/L (-9-1.8); HCO3 ABG 38 mmol/L (19-24); PCO2 ABG 59 mmHg (35-46); PO2 ABG 96 mmHg (80-95); pH ABG 7.42 (7.35-7.45)
[2019-07-30 03:55] LABS: Allen Test Pos (Pos)
[2019-07-30 03:57] LABS: Basophils # (auto) 0.02 K/uL (0-0.2); Basophils % (auto) 0.1 %; Eosinophils # (auto) 0.05 K/uL (0-0.5); Eosinophils % (auto) 0.2 %; Hematocrit (blood only) 28.3 % (37-47); Hemoglobin 8.8 g/dL (12.0-16.0); Immature Granulocytes # (auto) 0.06 K/uL (0.00-0.02); Immature Granulocytes % (auto) 0.3 %; Lymphocytes # (auto) 1.84 K/uL (1.2-3.4); Lymphocytes % (auto) 7.9 %; Mean Corpuscular Hemoglobin 30.4 pg (25-34); Mean Corpuscular Hgb Conc 31.1 g/dL (32-36); Mean Corpuscular Volume 97.9 fL (80-100); Mean Platelet Volume 8.9 fL (7.4-10.4); Monocytes # (auto) 1.54 K/uL (0.11-0.59); Monocytes % (auto) 6.6 %; Neutrophils # (auto) 19.79 K/uL (1.4-6.5); Neutrophils % (auto) 84.9 %; Nucleated RBC # (auto) 0.02 K/uL (0-0); Nucleated RBC % (auto) 0.1 %; Platelet Count 199 K/uL (130-400); RDW Standard Deviation 53.4 fL (36.4-46.3); Red Blood Count 2.89 M/uL (4.2-5.4)
[2019-07-30 04:11] LABS: BUN Creatinine Ratio 31.4 (10-20); Calcium 9.6 mg/dl (8.5-10.1); Est GFR (African American) 49.6; Est GFR (Non-African American) 42.8; Magnesium 1.9 mg/dl (1.8-2.4)
[2019-07-30] MEDS ORDERED: FUROSEMIDE 60 MG in SYRINGE 0 ML IV ONE (04:15)
[2019-07-30] MEDS: PROMETHAZINE HCL 12.5 MG in SODIUM CHLORIDE 0.9% 50 ML IV PRN (04:25)
[2019-07-30] MEDS ORDERED: ACETAMINOPHEN 1,000 MG/100 ML VIAL IV STA (04:36)
[2019-07-30] MEDS ORDERED: MAGNESIUM SULFATE / D5W 1 GM/100 ML BAG IV ONE (04:45)
[2019-07-30] MEDS ORDERED: CEFEPIME 2,000 MG in SYRINGE 7.5 ML IV STA (04:53)
[2019-07-30] MEDS ORDERED: PIPERACILL/TAZOBAC CONSULT ACTIVE PRN (04:55)
--- NOTE | 2019-07-30 04:56 | Communication Note ---
Date of Service: July 30, 2019 Patient more short of breath as per RN. Productive cough Tissues with green sputum at bedside. Fever spike in a.m. Interstitial congestion, atelectasis, possible infiltrate right AP Worsening shortness of breath Multifactorial : ? Right-sided pneumonia (hx Pseudomonas in sputum, intermediate Cefepime resistance as per records) possible sepsis Congestion Cultures, Zosyn Lasix 1 dose now Will relay to AM provider.
[2019-07-30] MEDS ORDERED: PIPERACILLIN/TAZOBACTAM 4.5 GM in DEXTROSE 5% 100 ML IV ONE (05:30)
[2019-07-30] MEDS: HEPARIN SOD 5,000 UNIT/0.5 ML VIAL SQ SCH ×3 (05:44→21:12)
[2019-07-30] MEDS: PROPAFENONE HCL 150 MG TABLET PO SCH ×3 (05:44→21:10)
[2019-07-30] MEDS: ACETAMINOPHEN 500 MG TAB PO SCH ×3 (05:44→21:13)
[2019-07-30] MEDS: LEVOTHYROXINE SODIUM 88 MCG TABLET PO SCH (05:45)
[2019-07-30] MEDS: ACETYLCYSTEINE 20% INHAL SOLN 30ML***DISPENSED BY RESP. INH SCH ×2 (06:50→20:08)
--- NOTE | 2019-07-30 07:15 | XRay Report ---
XR chest 1V portable CLINICAL HISTORY: 69 years-old Female presenting with sob. TECHNIQUE: Portable upright AP view of the chest was obtained. COMPARISON: 07/28/2019 FINDINGS: Atherosclerosis of the aortic arch. Cardiac silhouette enlarged. Mild pulmonary vascular prominence a nd interstitial prominence, which has increased from prior. Interval development of bibasilar opaciti es, which is hazy and diffuse on the right and more limited to the dependent portion on the left. Lef t greater than right pleural effusions. No pneumothorax. Degenerative changes of the thoracic spine. Evidence of kyphoplasty in the midthoracic spine. Right shoulder arthroplasty. Upper abdomen normal. IMPRESSION: 1. Cardiomegaly with worsening volume overload and congestive change. 2. Bibasilar opacities. Pneumonia is not excluded at the right lung base. Alternatively, this could represent mild edema. Bibasilar atelectasis is not felt to completely account for the appearance. 3. Left greater than right pleural effusions. ACT 112: Negative or not required by law. Electronically signed by: Mukund Tirado M.D. 07/30/2019 7:14 AM
[2019-07-30] MEDS: ROFLUMILAST 500 MCG TAB PO SCH (07:54)
[2019-07-30] MEDS: DOXYCYCLINE HYCLATE 100 MG CAP PO SCH (07:54)
[2019-07-30] MEDS: METOPROLOL SUCC 50MG EXT REL TAB PO SCH (07:54)
[2019-07-30] MEDS: MULTIVITAMIN TAB PO SCH (07:54)
[2019-07-30] MEDS: FAMOTIDINE 10 MG TABLET PO SCH ×2 (07:54→21:11)
[2019-07-30] MEDS: allopurinoL 300 MG TAB PO SCH (07:54)
[2019-07-30] MEDS: SERTRALINE HCL 50 MG TABLET PO SCH (07:54)
[2019-07-30] MEDS: AMLODIPINE BESYLATE 5 MG TAB PO SCH (08:30)
[2019-07-30] MEDS: INSULIN ASPART 100 UNITS/ML 3 ML PEN SC SCH ×4 (08:30→21:14)
[2019-07-30] MEDS: INSULIN GLARGINE SOLOSTAR 100 UNITS/ML 3 ML PEN SC SCH (08:30)
[2019-07-30] MEDS ORDERED: CONSULT PHARMACY SCH (09:00)
[2019-07-30] MEDS: PIPERACILLIN/TAZOBACTAM 4.5 GM in DEXTROSE 5% 100 ML IV SCH ×2 (09:42→18:28)
--- NOTE | 2019-07-30 11:05 | Pulmonology Progress Note ---
Date of Service July 30, 2019 Assessment & Plan (1) Acute on chronic respiratory failure with hypoxia and hypercapnia: --Acute on chronic hypoxic hypercapnic respiratory failure Likely secondary to COPD exacerbation CXR: 07/28/19: No clear infiltrate appreciated, left lower lobe opacity likely represents prior bronchiectatic changes which are appreciated even on CAT scan done 06/22/2017 Continue with inhaled bronchodilator therapy, prednisone 40 mg to be taken for 5 days, nebulized Mucomyst and flutter valve added O2 supplementation to keep oxygen saturation between 88 to 92% BiPAP nightly and PRN shortness of breath 07/30/19: Chest x-ray shows new right lower lobe infiltrate. Still within 48hrs of time of admission. Looking at the history the patient gets could be aspiration pneumonia as it happened while she was sleeping and woke up with cough. Her BNP from the time of admission did go up to 3800 she got 60 of Lasix from the hospitalist early in the morning. We will repeat a chest x-ray in the morning. Recommend getting a swallow eval on her to see if patient is having aspiration episodes. doxycylcine changed to zosyn 07/30/18 --History of COPD Patient is on Breo Ellipta as well as Roflumilast at home. Prior to discharge lama inhaler should be added to the regimen [Spiriva/Incruse] --Bronchiectasis Continue with flutter valve and Mucomyst --SIMONA/OHS Continue with CPAP nightly and BiPAP PRN shortness of breath Please note the above document was generated using voice recognition software. It may contain grammatical, syntax or spelling errors. (2) COPD exacerbation: (3) Shortness of breath: (4) Obesity hypoventilation syndrome: (5) Bronchiectasis: Subjective Patient seen and examined at bedside. No acute distress. Patient was doing much better as of yesterday but overnight patient woke up with sudden onset of cough and shortness of breath. Chest x-ray was done stat at that time which showed new right lower lobe infiltrate. It seems patient most likely aspirated while she was asleep. Patient denies any change in consistency or frequency of cough. It is still greenish in color and decreasing in intensity. At the time of examination today patient already feels better. No more coughing episodes. No chest pain, shortness of breath is improved. No headache, no dizziness. Patient denies any nausea or vomiting. Tmax: 37.7 C Review of Systems Review of Systems: All systems reviewed & are unremarkable except as noted in HPI & below Physical Exam Physical Exam: Constitutional: No acute distress HEENT: EOMI, PERRLA, moist mucous membranes, Mallampati 4 Respiratory system: Decreased air entry bilaterally, positive bilateral lower lobe crackles, more on the right lower lobe, no wheeze, no rhonchi CVS: S1-S2 positive, no murmurs or gallops Abdomen: Soft, nontender, nondistended, positive bowel sounds x4, obese Extremities: +2 pulses bilaterally radialis/ dorsalis pedis, no cyanosis, no edema Neuro: Awake alert oriented x3 Psych: Normal mood and affect G/U: No Niño Skin: no rashes, warm and dry Lymphatic: no cervical or axillary lymphadenopathy Results & Data Vital Signs (Past 12 Hours) Vital Signs Temp Pulse Pulse Pulse Resp BP Pulse Ox 07/30/19 07:00 36.8 C 81 20 138/73 92 07/30/19 06:53 97 H 22 97 07/30/19 05:30 78 22 159/85 H 07/30/19 04:27 87 167/89 H 07/30/19 04:16 37.7 C H 07/30/19 04:13 97 H 24 190/105 H 97 07/30/19 03:48 88 30 H 98 07/30/19 03:34 88 30 H 98 07/30/19 03:18 82 22 95 07/30/19 00:09 77 18 98 07/30/19 00:00 74 07/30/19 03:35 07/30/19 03:35 07/30/19 07/30/19 07/30/19 Range/Units 10:20 08:00 07:33 WBC (4.8-10.8) K/uL RBC (4.2-5.4) M/uL Hgb (12.0-16.0) g/dL Hct (37-47) % MCV (80-100) fL MCH (25-34) pg MCHC (32-36) g/dL RDW Std Deviation (36.4-46.3) fL RDW Coeff of Arabella (11.5-14.5) % Plt Count (130-400) K/uL MPV (7.4-10.4) fL Immature Gran % (Auto) % Neut % (Auto) % Lymph % (Auto) % Stone % (Auto) % Eos % (Auto) % Baso % (Auto) % Immature Gran # (Auto) (0.00-0.02) K/uL Neut # (Auto) (1.4-6.5) K/uL Lymph # (Auto) (1.2-3.4) K/uL Stone # (Auto) (0.11-0.59) K/uL Eos # (Auto) (0-0.5) K/uL Baso # (Auto) (0-0.2) K/uL Absolute Nucleated RBC (0-0) K/uL Nucleated RBC % (auto) % ABG pH (7.35-7.45) ABG pCO2 (35-46) mmHg ABG pO2 (80-95) mmHg ABG HCO3 (19-24) mmol/L ABG O2 Saturation (90-95) % ABG Base Excess (-9-1.8) mEq/L Alvaro Test (Pos) Oxygen Given Sodium (136-145) mmol/L Potassium (3.5-5.1) mmol/L Chloride (98-107) mmol/L Carbon Dioxide (21-32) mmol/L Anion Gap (3-11) BUN (7-18) mg/dl Creatinine (0.6-1.2) mg/dl Est Cr Clr Drug Dosing ml/min Est GFR ( Amer) Est GFR (Non-Af Amer) BUN/Creatinine Ratio (10-20) Glucose (70-99) mg/dl POC Glucose 226 H (70-99) mg/dl Lactate (0.4-2.0) mmol/L Calcium (8.5-10.1) mg/dl Magnesium (1.8-2.4) mg/dl NT-Pro-B Natriuret Pep (0-900) pg/ml Procalcitonin Pending Nasal Screen MRSA (PCR) Positive A (Negative) 07/30/19 07/30/19 07/30/19 Range/Units 07:15 07:15 03:35 WBC (4.8-10.8) K/uL RBC (4.2-5.4) M/uL Hgb (12.0-16.0) g/dL Hct (37-47) % MCV (80-100) fL MCH (25-34) pg MCHC (32-36) g/dL RDW Std Deviation (36.4-46.3) fL RDW Coeff of Arabella (11.5-14.5) % Plt Count (130-400) K/uL MPV (7.4-10.4) fL Immature Gran % (Auto) % Neut % (Auto) % Lymph % (Auto) % Stone % (Auto) % Eos % (Auto) % Baso % (Auto) % Immature Gran # (Auto) (0.00-0.02) K/uL Neut # (Auto) (1.4-6.5) K/uL Lymph # (Auto) (1.2-3.4) K/uL Stone # (Auto) (0.11-0.59) K/uL Eos # (Auto) (0-0.5) K/uL Baso # (Auto) (0-0.2) K/uL Absolute Nucleated RBC (0-0) K/uL Nucleated RBC % (auto) % ABG pH (7.35-7.45) ABG pCO2 (35-46) mmHg ABG pO2 (80-95) mmHg ABG HCO3 (19-24) mmol/L ABG O2 Saturation (90-95) % ABG Base Excess (-9-1.8) mEq/L Alvaro Test (Pos) Oxygen Given Sodium 139 (136-145) mmol/L Potassium 4.0 (3.5-5.1) mmol/L Chloride 100 (98-107) mmol/L Carbon Dioxide 38 H (21-32) mmol/L Anion Gap 1.0 L (3-11) BUN 40 H (7-18) mg/dl Creatinine 1.26 H (0.6-1.2) mg/dl Est Cr Clr Drug Dosing 48.0 ml/min Est GFR ( Amer) 49.6 Est GFR (Non-Af Amer) 42.8 BUN/Creatinine Ratio 31.4 H (10-20) Glucose 103 H (70-99) mg/dl POC Glucose (70-99) mg/dl Lactate 1.2 (0.4-2.0) mmol/L Calcium 9.6 (8.5-10.1) mg/dl Magnesium 1.9 (1.8-2.4) mg/dl NT-Pro-B Natriuret Pep 3820 H (0-900) pg/ml Procalcitonin Nasal Screen MRSA (PCR) (Negative) 07/30/19 07/30/19 07/29/19 Range/Units 03:35 03:35 20:20 WBC 23.30 H (4.8-10.8) K/uL RBC 2.89 L (4.2-5.4) M/uL Hgb 8.8 L (12.0-16.0) g/dL Hct 28.3 L (37-47) % MCV 97.9 (80-100) fL MCH 30.4 (25-34) pg MCHC 31.1 L (32-36) g/dL RDW Std Deviation 53.4 H (36.4-46.3) fL RDW Coeff of Arabella 15.0 H (11.5-14.5) % Plt Count 199 (130-400) K/uL MPV 8.9 (7.4-10.4) fL Immature Gran % (Auto) 0.3 % Neut % (Auto) 84.9 % Lymph % (Auto) 7.9 % Stone % (Auto) 6.6 % Eos % (Auto) 0.2 % Baso % (Auto) 0.1 % Immature Gran # (Auto) 0.06 H (0.00-0.02) K/uL Neut # (Auto) 19.79 H (1.4-6.5) K/uL Lymph # (Auto) 1.84 (1.2-3.4) K/uL Stone # (Auto) 1.54 H (0.11-0.59) K/uL Eos # (Auto) 0.05 (0-0.5) K/uL Baso # (Auto) 0.02 (0-0.2) K/uL Absolute Nucleated RBC 0.02 H (0-0) K/uL Nucleated RBC % (auto) 0.1 % ABG pH 7.42 (7.35-7.45) ABG pCO2 59 H (35-46) mmHg ABG pO2 96 H (80-95) mmHg ABG HCO3 38 H (19-24) mmol/L ABG O2 Saturation 97.0 H (90-95) % ABG Base Excess 11.4 H (-9-1.8) mEq/L Alvaro Test Pos (Pos) Oxygen Given 4L Sodium (136-145) mmol/L Potassium (3.5-5.1) mmol/L Chloride (98-107) mmol/L Carbon Dioxide (21-32) mmol/L Anion Gap (3-11) BUN (7-18) mg/dl Creatinine (0.6-1.2) mg/dl Est Cr Clr Drug Dosing ml/min Est GFR ( Amer) Est GFR (Non-Af Amer) BUN/Creatinine Ratio (10-20) Glucose (70-99) mg/dl POC Glucose 177 H (70-99) mg/dl Lactate (0.4-2.0) mmol/L Calcium (8.5-10.1) mg/dl Magnesium (1.8-2.4) mg/dl NT-Pro-B Natriuret Pep (0-900) pg/ml Procalcitonin Nasal Screen MRSA (PCR) (Negative) 07/29/19 07/29/19 Range/Units 16:51 11:36 WBC (4.8-10.8) K/uL RBC (4.2-5.4) M/uL Hgb (12.0-16.0) g/dL Hct (37-47) % MCV (80-100) fL MCH (25-34) pg MCHC (32-36) g/dL RDW Std Deviation (36.4-46.3) fL RDW Coeff of Arabella (11.5-14.5) % Plt Count (130-400) K/uL MPV (7.4-10.4) fL Immature Gran % (Auto) % Neut % (Auto) % Lymph % (Auto) % Stone % (Auto) % Eos % (Auto) % Baso % (Auto) % Immature Gran # (Auto) (0.00-0.02) K/uL Neut # (Auto) (1.4-6.5) K/uL Lymph # (Auto) (1.2-3.4) K/uL Stone # (Auto) (0.11-0.59) K/uL Eos # (Auto) (0-0.5) K/uL Baso # (Auto) (0-0.2) K/uL Absolute Nucleated RBC (0-0) K/uL Nucleated RBC % (auto) % ABG pH (7.35-7.45) ABG pCO2 (35-46) mmHg ABG pO2 (80-95) mmHg ABG HCO3 (19-24) mmol/L ABG O2 Saturation (90-95) % ABG Base Excess (-9-1.8) mEq/L Alvaro Test (Pos) Oxygen Given Sodium (136-145) mmol/L Potassium (3.5-5.1) mmol/L Chloride (98-107) mmol/L Carbon Dioxide (21-32) mmol/L Anion Gap (3-11) BUN (7-18) mg/dl Creatinine (0.6-1.2) mg/dl Est Cr Clr Drug Dosing ml/min Est GFR ( Amer) Est GFR (Non-Af Amer) BUN/Creatinine Ratio (10-20) Glucose (70-99) mg/dl POC Glucose 150 H 230 H (70-99) mg/dl Lactate (0.4-2.0) mmol/L Calcium (8.5-10.1) mg/dl Magnesium (1.8-2.4) mg/dl NT-Pro-B Natriuret Pep (0-900) pg/ml Procalcitonin Nasal Screen MRSA (PCR) (Negative) PG Care Time/CCT Total # of Minutes Spent Total Time Spent with Patient: Total time spent is greater than 50% in coordination of care (as documented) at patient's floor/unit and/or counseling patient:
[2019-07-30] MEDS ORDERED: VANCOMYCIN CONSULT ACTIVE PRN (11:07)
[2019-07-30] MEDS ORDERED: VANCOMYCIN HCL 2,500 MG in SODIUM CHLORIDE 0.9% 500 ML IV STA (11:11)
--- NOTE | 2019-07-30 12:14 | Hospitalist Progress Note ---
Date of Service July 30, 2019 Assessment & Plan (1) Aspiration pneumonia: Antibiotic coverage was broadened to Zosyn. As patient is MRSA positive will also add vancomycin as this is a hospital-acquired pneumonia. Sputum culture pending. (2) Acute and chronic respiratory failure with hypercapnia: Acute hypoxia and hypercapnia initially secondary to COPD exacerbation, complicated by possible aspiration episode overnight. Subsequent hospital- acquired pneumonia. Improving on antibiotic therapy. Continue prednisone, Mucomyst, flutter valve per pulmonology. Continue oxygen supplementation and nightly BiPAP. (3) Bronchiectasis: Continue flutter valve and Mucomyst (4) COPD exacerbation: cont plan as above including nebulizer therapy and prednisone and also Roflumilast per home regimen. (5) Back pain: New and likely musculoskeletal based on clinical history and physical exam. Cont K pad, lidocaine patch, Tylenol (6) DMII (diabetes mellitus, type 2): Basal bolus insulin with carb coverage and sliding scale. Patient's blood sugar is currently at goal. Recent A1c reflects good control. (7) Anemia: chronic and at baseline. Likely multifactorial secondary to chronic disease. She has frequent recent hospitalizations this year including approximately 4 in the last 5 months. No active bleeding noted. (8) Morbid obesity: Lifestyle modifications encouraged. (9) PAF (paroxysmal atrial fibrillation): Currently in sinus rhythm with no evidence of event overnight on telemetry. Continue Toprol-XL 50 mg p.o. every morning, propafenone 150 mg p.o. every 8. She is followed by [facility] cardiology and has a questionable history of paroxysmal atrial fibrillation based on her medications however there is no available records to substantiate this. Continue home regimen. (10) SIMONA (obstructive sleep apnea): SIMONA/OHP. Continue home BiPAP. (11) CKD (chronic kidney disease), stage III: at baseline. (12) DVT prophylaxis: Heparin Full Code Dispo-to home when medically stable. Pending PT/OT recs. Tonie Ann DO [facility] Hospitalist Subjective Poor historian with poor insight into disease process and how she feels. States she is no better than admission. Persistent cough that is productive. States that back pain is improved with heating pad. Review of Systems Review of Systems: All systems reviewed & are unremarkable except as noted in HPI & below Physical Exam Physical Exam: CONSTITUTIONAL: obesity, vitals as above, generally well- appearing EYES: normal conjunctivae, no scleral icterus ENT: MMM RESPIRATORY: Some rhonchi in the bases bilaterally. Minimal to no wheezing. CARDIOVASCULAR: regular rate and rhythm, S1 and 2 heard without murmurs, gallops or rubs, no JVD, no peripheral edema GASTROINTESTINAL: soft, nontender, nondistended, protuberant MUSCULOSKELETAL: strength 5/5 throughout, head is normocephalic and atraumatic SKIN: warm and dry NEUROLOGIC: CN 2-12 grossly intact, normal cognition, normal speech, no gross focal deficits PSYCHIATRIC: alert cooperative and oriented to person, place and time. Results & Data Vital Signs (Past 12 Hours) Vital Signs Temp Pulse Pulse Pulse Resp BP BP 07/30/19 11:00 36.7 C 75 20 152/73 H 07/30/19 07:00 36.8 C 81 20 138/73 07/30/19 06:53 97 H 22 07/30/19 05:30 78 22 159/85 H 07/30/19 04:27 87 167/89 H 07/30/19 04:16 37.7 C H 07/30/19 04:13 97 H 24 190/105 H 07/30/19 03:48 88 30 H 07/30/19 03:34 88 30 H 07/30/19 03:18 82 22 Pulse Ox 07/30/19 11:00 95 07/30/19 07:00 92 07/30/19 06:53 97 07/30/19 05:30 07/30/19 04:27 07/30/19 04:16 07/30/19 04:13 97 07/30/19 03:48 98 07/30/19 03:34 98 07/30/19 03:18 95 Laboratory Results Short CBC 07/30/19 Range/Units 03:35 WBC 23.30 H (4.8-10.8) K/uL Hgb 8.8 L (12.0-16.0) g/dL Hct 28.3 L (37-47) % Plt Count 199 (130-400) K/uL BMP 07/30/19 03:35 Sodium 139 Potassium 4.0 Chloride 100 Carbon Dioxide 38 H BUN 40 H Creatinine 1.26 H Glucose 103 H Calcium 9.6 Medications Administered Current Inpatient Medications Acetaminophen (Tylenol) 1,000 mg PO Q8 VAHID Stop: 08/27/19 21:59 Last Admin: 07/30/19 05:44 Dose: Not Given Documented by: Acetylcysteine (Mucomyst 20%) 5 ml INH Q12R [facility] Stop: 08/27/19 18:59 Last Admin: 07/30/19 06:50 Dose: 5 ml Documented by: Allopurinol (Zyloprim) 300 mg PO QAM [facility] Stop: 08/27/19 08:59 Last Admin: 07/30/19 07:54 Dose: 300 mg Documented by: Amlodipine Besylate (Norvasc) 2.5 mg PO QAM [facility] Stop: 08/28/19 08:59 Last Admin: 07/30/19 08:30 Dose: 2.5 mg Documented by: Atorvastatin Calcium (Lipitor) 20 mg PO QPM [facility] Stop: 08/27/19 20:59 Last Admin: 07/29/19 21:08 Dose: 20 mg Documented by: Dextrose (Dextrose 50%) 25 - 50 ml IV UD PRN; Protocol PRN Reason: Hypoglycemia Protocol Stop: 08/27/19 05:23 Famotidine (Pepcid) 10 mg PO BID [facility] Stop: 08/27/19 08:59 Last Admin: 07/30/19 07:54 Dose: 10 mg Documented by: Glucagon (Glucagen) 1 mg SQ UD PRN; Protocol PRN Reason: Hypoglycemia Protocol Stop: 08/27/19 05:23 Glucose (Dex4 Glucose) 4 - 8 tabs PO UD PRN; Protocol PRN Reason: Hypoglycemia Protocol Stop: 08/27/19 05:23 Glucose (Glucose 40%) 15 - 30 gm PO UD PRN; Protocol PRN Reason: Hypoglycemia Protocol Stop: 08/27/19 05:23 Heparin Sodium (Porcine) (Heparin Sodium (Porcine)) 5,000 units SQ Q8 [facility] Stop: 08/27/19 05:59 Last Admin: 07/30/19 05:44 Dose: 5,000 units Documented by: Promethazine HCl 12.5 mg/ (Sodium Chloride) 50.5 mls @ 202 mls/hr IV Q6H PRN PRN Reason: Nausea And Vomiting Stop: 08/27/19 05:23 Last Infusion: 07/30/19 04:43 Dose: Infused Documented by: Piperacillin Sod/Tazobactam (Sod 4.5 gm/ Dextrose) 120 mls @ 30 mls/hr IV Q8H VAHID Stop: 08/06/19 09:59 Last Admin: 07/30/19 09:42 Dose: 30 mls/hr Documented by: Vancomycin HCl 2,500 mg/ (Sodium Chloride) 550 mls @ 200 mls/hr IV NOW STA Stop: 07/30/19 13:55 Insulin Aspart (Novolog Flexpen) 0 units SC ACHS [facility] Stop: 08/27/19 05:59 Last Admin: 07/30/19 12:11 Dose: 3 units Documented by: Insulin Glargine (Lantus Solostar Pen) 5 units SC DAILY [facility]ID Stop: 08/28/19 08:59 Last Admin: 07/30/19 08:30 Dose: 5 units Documented by: Ipratropium [place] (Atrovent 0.02% 0.5mg/2.5ml) 0.5 mg INH Q6R [facility] Stop: 08/27/19 06:59 Last Admin: 07/30/19 06:50 Dose: 0.5 mg Documented by: Levalbuterol HCl (Xopenex 1.25mg/0.5ml Neb) 1.25 mg INH Q6R [facility] Stop: 08/27/19 06:59 Last Admin: 07/30/19 06:49 Dose: 1.25 mg Documented by: Levothyroxine Sodium (Synthroid) 88 mcg PO DAILYBB [facility] Stop: 08/27/19 06:29 Last Admin: 07/30/19 05:45 Dose: 88 mcg Documented by: Lidocaine (Lidoderm 5%) 1 patch TD HS [facility] Stop: 08/28/19 01:29 Last Admin: 07/29/19 21:07 Dose: 1 patch Documented by: Metoprolol Succinate (Toprol Xl) 50 mg PO QAM [facility] Stop: 08/28/19 08:59 Last Admin: 07/30/19 07:54 Dose: 50 mg Documented by: Miscellaneous (Carbohydrates For Hypoglycemia) 15 - 30 gm PO UD PRN PRN Reason: Hypoglycemia Protocol Stop: 08/27/19 05:23 Miscellaneous (Remove Lidoderm Patch) [facility] Stop: 08/28/19 09:59 Last Admin: 07/30/19 07:55 Dose: 1 ea Documented by: Miscellaneous Information (Consult) 1 ea N/A UD PRN PRN Reason: Consult Stop: 08/29/19 04:54 Miscellaneous Information (Consult) 1 ea N/A UD PRN PRN Reason: Consult Stop: 08/29/19 11:06 Multivitamins (Multivitamin Tab) 1 tab PO QAM [facility] Stop: 08/27/19 08:59 Last Admin: 07/30/19 07:54 Dose: 1 tab Documented by: Mupirocin (Bactroban 2%) 1 appln INTNAS BID [facility] Stop: 08/04/19 09:01 Nitroglycerin (Nitrostat) 0.4 mg SL UD PRN PRN Reason: Chest Pain Stop: 08/27/19 05:23 Oxycodone HCl (Roxicodone Immediate Rel) 5 mg PO Q8H PRN PRN Reason: Severe Pain Stop: 08/11/19 18:19 Last Admin: 07/29/19 23:32 Dose: 5 mg Documented by: Prednisone (Prednisone) 40 mg PO DAILY [facility] Stop: 08/04/19 08:59 Propafenone HCl (Rythmol) 150 mg PO Q8H [facility] Stop: 08/27/19 05:59 Last Admin: 07/30/19 05:44 Dose: 150 mg Documented by: Roflumilast (Daliresp) 500 mcg PO DAILY [facility] Stop: 08/27/19 08:59 Last Admin: 07/30/19 07:54 Dose: 500 mcg Documented by: Sertraline HCl (Zoloft) 25 mg PO QAM [facility] Stop: 08/27/19 08:59 Last Admin: 07/30/19 07:54 Dose: 25 mg Documented by:
--- NOTE | 2019-07-30 13:42 | Pharmacy Report ---
Pharmacy Abx Dose Short Note - Date of Service July 30, 2019 - Assessment & Plan Assessment 69 year old F receiving IV Vancomycin and Zosyn for treatment of aspiration pneumonia, +MRSA Day # 1 of antimicrobial therapy. * Renal function appears to be at baseline. Most recent sCr = 1.26 mg/dL with estimated CrCl ~48 mL/min. Estimated pharmacokinetic parameters: * Ke ~0.044/hr, T1/2 ~15.8 hrs Plan Vancomycin * Give Vancomycin 2500mg (~23mg/kg) IV x 1 as a loading dose * Initiate Vancomycin 1500mg (~14mg/kg) IV q18 as maintenance regimen * Goal trough level for pneumonia : 15 to 20 mcg/mL * Trough level ordered for: 08/01/19 @ 0130 (prior to 2nd dose and therefore not reflective of steady state, but need to assess regimen earlier due to obesity) Zosyn * Continue Zosyn 4.5g IV q8 (extended infusion over 4 hours) for CrCl >20 mL/min Pharmacy will continue to follow and will adjust dose/frequency as necessary. Thank you.
[2019-07-30] MEDS: OXYCODONE HCL IR 5 MG TAB (IMMEDIATE RELEASE) PO PRN (16:05)
[2019-07-30] MEDS: ATORVASTATIN 20 MG TAB PO SCH (21:10)
[2019-07-30] MEDS: LIDOCAINE 5% 1 PATCH TD SCH (21:11)
[2019-07-30] MEDS: MUPIROCIN 2% OINT 22 GM TUBE INTNAS SCH (21:11)
[2019-07-31] MEDS: IPRATROPIUM BROMIDE NEB SOLN 0.02% 2.5 ML VIAL INH SCH ×4 (00:56→19:05)
[2019-07-31] MEDS: LEVALBUTEROL 1.25MG/0.5ML NEB INH SCH ×4 (00:56→19:05)
[2019-07-31] MEDS: PIPERACILLIN/TAZOBACTAM 4.5 GM in DEXTROSE 5% 100 ML IV SCH ×3 (01:49→17:42)
[2019-07-31] MEDS: PROPAFENONE HCL 150 MG TABLET PO SCH ×3 (06:36→21:36)
[2019-07-31] MEDS: LEVOTHYROXINE SODIUM 88 MCG TABLET PO SCH (06:36)
[2019-07-31] MEDS: ACETAMINOPHEN 500 MG TAB PO SCH ×3 (06:36→21:36)
[2019-07-31] MEDS: HEPARIN SOD 5,000 UNIT/0.5 ML VIAL SQ SCH ×3 (06:37→21:36)
[2019-07-31] MEDS: ACETYLCYSTEINE 20% INHAL SOLN 30ML***DISPENSED BY RESP. INH SCH (07:08)
--- NOTE | 2019-07-31 07:30 | XRay Report ---
XR chest 1V portable CLINICAL HISTORY: f/u COMPARISON STUDY: Chest radiograph July 30, 2019. FINDINGS: Incidental note is made of a right shoulder arthroplasty and vertebroplasty. There is no pn eumothorax. There are small bilateral pleural effusions. Bibasilar opacities have mildly improved. Th ere is no evidence for overt pulmonary edema. IMPRESSION: 1. Persistent, but mildly improved, bibasilar opacities which favor pneumonia. Continued radiographic follow-up to ensure resolution is recommended. 2. Suspected small bilateral pleural effusions ACT 112: Negative or not required by law. Electronically signed by: Quentin Maier M.D. 07/31/2019 7:28 AM
[2019-07-31 07:43] LABS: Est GFR (African American) 46.9; Est GFR (Non-African American) 40.5
[2019-07-31] MEDS: INSULIN ASPART 100 UNITS/ML 3 ML PEN SC SCH ×4 (08:22→20:33)
[2019-07-31] MEDS: MUPIROCIN 2% OINT 22 GM TUBE INTNAS SCH ×2 (08:23→20:31)
[2019-07-31] MEDS: ROFLUMILAST 500 MCG TAB PO SCH (08:24)
[2019-07-31] MEDS: INSULIN GLARGINE SOLOSTAR 100 UNITS/ML 3 ML PEN SC SCH (08:25)
[2019-07-31] MEDS: MULTIVITAMIN TAB PO SCH (08:26)
[2019-07-31] MEDS: AMLODIPINE BESYLATE 5 MG TAB PO SCH (08:26)
[2019-07-31] MEDS: METOPROLOL SUCC 50MG EXT REL TAB PO SCH (08:27)
[2019-07-31] MEDS: predniSONE 20 MG TAB PO SCH (08:27)
[2019-07-31] MEDS: FAMOTIDINE 10 MG TABLET PO SCH ×2 (08:27→20:34)
[2019-07-31] MEDS: allopurinoL 300 MG TAB PO SCH (08:28)
[2019-07-31] MEDS: SERTRALINE HCL 50 MG TABLET PO SCH (08:28)
[2019-07-31] MEDS: VANCOMYCIN HCL 1,500 MG in SODIUM CHLORIDE 0.9% 500 ML IV SCH (09:06)
[2019-07-31 09:59] LABS: Basophils # (auto) 0.01 K/uL (0-0.2); Basophils % (auto) 0.1 %; Eosinophils # (auto) 0.08 K/uL (0-0.5); Eosinophils % (auto) 0.4 %; Hematocrit (blood only) 27.9 % (37-47); Hemoglobin 8.5 g/dL (12.0-16.0); Immature Granulocytes # (auto) 0.05 K/uL (0.00-0.02); Immature Granulocytes % (auto) 0.3 %; Lymphocytes # (auto) 1.32 K/uL (1.2-3.4); Mean Corpuscular Hemoglobin 30.5 pg (25-34); Mean Corpuscular Hgb Conc 30.5 g/dL (32-36); Mean Platelet Volume 9.2 fL (7.4-10.4); Monocytes # (auto) 1.68 K/uL (0.11-0.59); Neutrophils # (auto) 15.63 K/uL (1.4-6.5); Neutrophils % (auto) 83.2 %; Platelet Count 205 K/uL (130-400); RDW Standard Deviation 54.7 fL (36.4-46.3); Red Blood Count 2.79 M/uL (4.2-5.4); White Blood Count 18.77 K/uL (4.8-10.8)
[2019-07-31 10:08] LABS: BUN Creatinine Ratio 23.6 (10-20); Calcium 9.9 mg/dl (8.5-10.1); Creatinine Clr Calc Pharmacy 44.7 ml/min; Est GFR (African American) 45.3; Est GFR (Non-African American) 39.1; Potassium 3.6 mmol/L (3.5-5.1)
--- NOTE | 2019-07-31 11:13 | Pulmonology Progress Note ---
Date of Service July 31, 2019 Assessment & Plan (1) Acute on chronic respiratory failure with hypoxia and hypercapnia: --Acute on chronic hypoxic hypercapnic respiratory failure Likely secondary to COPD exacerbation followed by aspiration pneumonia CXR: 07/28/19: No clear infiltrate appreciated, left lower lobe opacity likely represents prior bronchiectatic changes which are appreciated even on CAT scan done 06/22/2017 Should do 5 days of prednisone 40 mg p.o. and then stop. Continue nebulized Mucomyst and flutter valve O2 supplementation to keep oxygen saturation between 88 to 92% due to chronic COPD BiPAP nightly and PRN shortness of breath Chest x-ray 07/30/19: Revealed new right lower lobe infiltrate. Still within 48hrs of time of admission. Looking at the history the patient gets could be aspiration pneumonia as it happened while she was sleeping and woke up with cough. Her BNP from the time of admission did go up to 3800 she got 60 of Lasix from the hospitalist early in the morning. Recommend getting a swallow eval to see if patient is having aspiration episodes. Patient was admitted on 07/28/2019 and received cefepime in the ED. She was then started on doxycycline 100 mg p.o. twice daily. Doxycylcine was then changed to zosyn and vancomycin 07/30/18 due to chest x-ray changes. (2) COPD exacerbation: Acute on chronic COPD with current exacerbation Home regimen includes Brio Ellipta as well as Roflumilast. Recommended to add Spiriva/Incruse on discharge Continue Mucomyst nebulizers every 12 hours, prednisone 40 mg daily for total 5 days, Roflumilast 500 mcg p.o. daily, Xopenex/ipratropium nebs every 6 hours scheduled Modest improvement on chest x-ray this morning. Continue out of bed to chair as tolerated and continue to ambulate as tolerated (3) Shortness of breath: Patient states that she feels like she is back to baseline Continue current treatment with Zosyn and respiratory regimen as listed above Currently receiving 40 mg of p.o. prednisone Patient treated initially for COPD exacerbation. On 07/30/2019 chest x-ray suggested aspiration pneumonia so antibiotics were escalated Continue to monitor clinically and with chest x-ray Maintain SaO2 between 88 and 92% secondary to COPD (4) Obesity hypoventilation syndrome: Continue home CPAP as tolerated Patient does have her own machine here and is authorized to use it. ABGs with compensated respiratory failure Patient alert and oriented and mentating well. (5) Bronchiectasis: Continue flutter valve and Mucomyst nebs Encourage ambulation Patient reports daily sputum production at home. Sputum is now clear since initiating treatment at [facility] Continue to follow clinically No indication for bronchoscopy at this time Subjective Attending: Dr. Hayden Patient seen and examined at bedside. She is in bedside chair. Patient states that she had yellow sputum prior to admission. This is now cleared and there is no discoloration to her phlegm. She is on CPAP at night and uses it faithfully at home. She does have her home CPAP in the hospital and uses that at night. The patient also is on supplemental home O2 at 4 L/min via nasal cannula. She feels as though she has back to baseline regarding her respiratory status. She has been walking in the hallways but has to quit early secondary to fatigue and weakness of the legs. She denies significant shortness of breath with ambulation. She has no fever chills. She denies any rigors. She has no nausea or vomiting. The patient is currently tolerating regimen for treatment and has no acute complaints. Review of Systems Review of Systems: All systems reviewed & are unremarkable except as noted in HPI & below Physical Exam Physical Exam: GENERAL : No acute distress. Sitting in bedside chair EYES: No icterus, gaze conjugate NOSE: No evidence of epistaxis MOUTH: No lesions or candidiasis NECK: Supple LUNGS: Bibasilar wheezes in the posterior valdez. Some fine crackles at the bilateral bases. No rhonchi. Deep inspiration adequate. HEART: Regular, rate controlled ABDOMEN: Soft, NT, ND, BS Present EXTREMITIES: No LE edema, pedal pulses intact and equal bilaterally NEURO: A&OX3. Results & Data Vital Signs (Past 12 Hours) Vital Signs Temp Pulse Pulse Pulse Resp BP BP 07/31/19 08:42 37.4 C 77 20 136/66 07/31/19 07:08 79 18 07/31/19 02:50 36.1 C L 74 20 176/81 H 07/31/19 01:09 68 07/31/19 00:55 60 19 07/31/19 00:00 68 07/30/19 23:32 36.7 C 58 L 19 150/78 H Pulse Ox 07/31/19 08:42 99 07/31/19 07:08 95 07/31/19 02:50 100 07/31/19 01:09 07/31/19 00:55 98 07/31/19 00:00 07/30/19 23:32 98 Laboratory Results 07/31/19 06:53 07/31/19 06:56 07/28/19 07/28/19 07/30/19 03:28 06:22 03:35 ABG pH 7.42 ABG pCO2 59 H ABG pO2 96 H ABG HCO3 38 H ABG O2 Saturation 97.0 H ABG Base Excess 11.4 H VBG pH 7.30 L 7.35 L VBG pCO2 82 H 76 H VBG pO2 34 76 VBG HCO3 39 42 VBG O2 Saturation < 60.0 93.1 VBG Base Excess 10.2 13.7 Diagnostic Findings XR chest 1V portable CLINICAL HISTORY: f/u COMPARISON STUDY: Chest radiograph July 30, 2019. FINDINGS: Incidental note is made of a right shoulder arthroplasty and vertebroplasty. There is no pneumothorax. There are small bilateral pleural effusions. Bibasilar opacities have mildly improved. There is no evidence for overt pulmonary edema. IMPRESSION: 1. Persistent, but mildly improved, bibasilar opacities which favor pneumonia. Continued radiographic follow-up to ensure resolution is recommended. 2. Suspected small bilateral pleural effusions ACT 112: Negative or not required by law. Electronically signed by: Quentin Maier M.D. 07/31/2019 7:28 AM Medications Administered Change from doxycycline to Zosyn on 07/30/2019 PG Care Time/CCT Total # of Minutes Spent Total Time Spent with Patient: Total time spent is greater than 50% in coordination of care (as documented) at patient's floor/unit and/or counseling patient: 30 minutes
--- NOTE | 2019-07-31 14:52 | Hospitalist Progress Note ---
Date of Service July 31, 2019 Assessment & Plan (1) Aspiration pneumonia: Continue broad-spectrum antibiotics including vancomycin and Zosyn. Pending repeat sputum culture to help narrow spectrum. (2) Acute and chronic respiratory failure with hypercapnia: Acute hypoxia and hypercapnia initially secondary to COPD exacerbation, complicated by possible aspiration episode overnight. Subsequent hospital- acquired pneumonia. Improving on antibiotic therapy. Continue prednisone, Mucomyst, flutter valve per pulmonology. Continue oxygen supplementation and nightly BiPAP. (3) Bronchiectasis: Continue flutter valve and Mucomyst (4) COPD exacerbation: cont plan as above and Roflumilast per home regimen. (5) Back pain: New and likely musculoskeletal based on clinical history and physical exam. Cont K pad, lidocaine patch, Tylenol, improved overall. (6) DMII (diabetes mellitus, type 2): Basal bolus insulin with carb coverage and sliding scale. A1c reflects good control. Inpatient blood sugar numbers are slightly elevated. Will tighten coverage in the setting of prednisone use. (7) Anemia: chronic and at baseline. Likely multifactorial secondary to chronic disease. She has frequent recent hospitalizations this year including approximately 4 in the last 5 months. No active bleeding noted. (8) SIMONA (obstructive sleep apnea): SIMONA/OHS. Continue home BiPAP. (9) PAF (paroxysmal atrial fibrillation): Currently in sinus rhythm with no evidence of event overnight on telemetry. Continue Toprol-XL 50 mg p.o. every morning, propafenone 150 mg p.o. every 8. She is followed by [facility] cardiology and has a questionable history of paroxysmal atrial fibrillation based on her medications however there is no available records to substantiate this. Continue home regimen. (10) CKD (chronic kidney disease), stage III: Chronic, at baseline. (11) MRSA (methicillin resistant staph aureus) culture positive: Bactroban twice daily x5 days. Contact precautions. (12) Morbid obesity: Lifestyle modifications encouraged. (13) DVT prophylaxis: Heparin Full Code Dispo-to home when medically stable. Pending PT/OT recs. Tonie Ann DO [facility] Hospitalist Subjective Feels better today, reports improvement in respiratory symptoms. Denies any other issues today. Tolerating p.o. Afebrile. Speech pathology evaluation reveals no karla evidence of aspiration but recommendations to keep head of bed elevated at 30 degrees at all times. Review of Systems Review of Systems: All systems reviewed & are unremarkable except as noted in HPI & below Physical Exam Physical Exam: CONSTITUTIONAL: obesity, vitals as above, generally well- appearing EYES: normal conjunctivae, no scleral icterus ENT: MMM RESPIRATORY: Clear lungs to auscultation CARDIOVASCULAR: regular rate and rhythm, S1 and 2 heard without murmurs, gallops or rubs, no JVD, no peripheral edema GASTROINTESTINAL: soft, nontender, nondistended, protuberant MUSCULOSKELETAL: strength 5/5 throughout, head is normocephalic and atraumatic SKIN: warm and dry NEUROLOGIC: CN 2-12 grossly intact, normal cognition, normal speech, no gross focal deficits PSYCHIATRIC: alert cooperative and oriented to person, place and time. Results & Data Vital Signs (Past 12 Hours) Vital Signs Temp Pulse Pulse Resp BP Pulse Ox 07/31/19 13:48 80 19 98 07/31/19 11:34 37.0 C 75 18 150/75 H 99 07/31/19 08:42 37.4 C 77 20 136/66 99 07/31/19 07:08 79 18 95 Laboratory Results Short CBC 07/31/19 Range/Units 06:53 WBC 18.77 H (4.8-10.8) K/uL Hgb 8.5 L (12.0-16.0) g/dL Hct 27.9 L (37-47) % Plt Count 205 (130-400) K/uL BMP 07/31/19 07/31/19 06:53 06:56 Sodium 139 Potassium 3.6 Chloride 99 Carbon Dioxide 40 H BUN 32 H Creatinine 1.36 H 1.32 H Glucose 113 H Calcium 9.9 Medications Administered Current Inpatient Medications Acetaminophen (Tylenol) 1,000 mg PO Q8 [facility] Stop: 08/27/19 21:59 Last Admin: 07/31/19 14:01 Dose: 1,000 mg Documented by: Acetylcysteine (Mucomyst 20%) 5 ml INH Q12R [facility] Stop: 08/27/19 18:59 Last Admin: 07/31/19 07:08 Dose: 5 ml Documented by: Allopurinol (Zyloprim) 300 mg PO QAM [facility] Stop: 08/27/19 08:59 Last Admin: 07/31/19 08:28 Dose: 300 mg Documented by: Amlodipine Besylate (Norvasc) 2.5 mg PO QAM [facility] Stop: 08/28/19 08:59 Last Admin: 07/31/19 08:26 Dose: 2.5 mg Documented by: Atorvastatin Calcium (Lipitor) 20 mg PO QPM [facility] Stop: 08/27/19 20:59 Last Admin: 07/30/19 21:10 Dose: 20 mg Documented by: Dextrose (Dextrose 50%) 25 - 50 ml IV UD PRN; Protocol PRN Reason: Hypoglycemia Protocol Stop: 08/27/19 05:23 Famotidine (Pepcid) 10 mg PO BID [facility] Stop: 08/27/19 08:59 Last Admin: 07/31/19 08:27 Dose: 10 mg Documented by: Glucagon (Glucagen) 1 mg SQ UD PRN; Protocol PRN Reason: Hypoglycemia Protocol Stop: 08/27/19 05:23 Glucose (Dex4 Glucose) 4 - 8 tabs PO UD PRN; Protocol PRN Reason: Hypoglycemia Protocol Stop: 08/27/19 05:23 Glucose (Glucose 40%) 15 - 30 gm PO UD PRN; Protocol PRN Reason: Hypoglycemia Protocol Stop: 08/27/19 05:23 Heparin Sodium (Porcine) (Heparin Sodium (Porcine)) 5,000 units SQ Q8 [facility] Stop: 08/27/19 05:59 Last Admin: 07/31/19 14:03 Dose: 5,000 units Documented by: Promethazine HCl 12.5 mg/ (Sodium Chloride) 50.5 mls @ 202 mls/hr IV Q6H PRN PRN Reason: Nausea And Vomiting Stop: 08/27/19 05:23 Last Infusion: 07/30/19 04:43 Dose: Infused Documented by: Piperacillin Sod/Tazobactam (Sod 4.5 gm/ Dextrose) 120 mls @ 30 mls/hr IV Q8H [facility] Stop: 08/06/19 09:59 Last Infusion: 07/31/19 13:49 Dose: Infused Documented by: Vancomycin HCl 1,500 mg/ (Sodium Chloride) 530 mls @ 200 mls/hr IV Q18H [facility] Stop: 08/06/19 07:59 Last Infusion: 07/31/19 11:53 Dose: Infused Documented by: Insulin Aspart (Novolog Flexpen) 0 units SC ACHS [facility] Stop: 08/27/19 05:59 Last Admin: 07/31/19 13:23 Dose: 2 units Documented by: Insulin Glargine (Lantus Solostar Pen) 5 units SC DAILY [facility] Stop: 08/28/19 08:59 Last Admin: 07/31/19 08:25 Dose: 5 units Documented by: Ipratropium [place] (Atrovent 0.02% 0.5mg/2.5ml) 0.5 mg INH Q6R [facility] Stop: 08/27/19 06:59 Last Admin: 07/31/19 13:48 Dose: 0.5 mg Documented by: Levalbuterol HCl (Xopenex 1.25mg/0.5ml Neb) 1.25 mg INH Q6R [facility] Stop: 08/27/19 06:59 Last Admin: 07/31/19 13:48 Dose: 1.25 mg Documented by: Levothyroxine Sodium (Synthroid) 88 mcg PO DAILYBB [facility] Stop: 08/27/19 06:29 Last Admin: 07/31/19 06:36 Dose: 88 mcg Documented by: Lidocaine (Lidoderm 5%) 1 patch TD HS [facility] Stop: 08/28/19 01:29 Last Admin: 07/30/19 21:11 Dose: 1 patch Documented by: Metoprolol Succinate (Toprol Xl) 50 mg PO [facility] Stop: 08/28/19 08:59 Last Admin: 07/31/19 08:27 Dose: 50 mg Documented by: Miscellaneous (Carbohydrates For Hypoglycemia) 15 - 30 gm PO UD PRN PRN Reason: Hypoglycemia Protocol Stop: 08/27/19 05:23 Miscellaneous (Remove Lidoderm Patch) 1 ea N/A [facility] Stop: 08/28/19 09:59 Last Admin: 07/31/19 08:27 Dose: 1 ea Documented by: Miscellaneous Information (Consult) 1 ea N/A UD PRN PRN Reason: Consult Stop: 08/29/19 04:54 Miscellaneous Information (Consult) 1 ea N/A UD PRN PRN Reason: Consult Stop: 08/29/19 11:06 Multivitamins (Multivitamin Tab) 1 tab PO [facility] Stop: 08/27/19 08:59 Last Admin: 07/31/19 08:26 Dose: 1 tab Documented by: Mupirocin (Bactroban 2%) 1 appln INTNAS BID [facility] Stop: 08/04/19 09:01 Last Admin: 07/31/19 08:23 Dose: 1 appln Documented by: Nitroglycerin (Nitrostat) 0.4 mg SL UD PRN PRN Reason: Chest Pain Stop: 08/27/19 05:23 Oxycodone HCl (Roxicodone Immediate Rel) 5 mg PO Q8H PRN PRN Reason: Severe Pain Stop: 08/11/19 18:19 Last Admin: 07/30/19 16:05 Dose: 5 mg Documented by: Prednisone (Prednisone) 40 mg PO DAILY [facility] Stop: 08/04/19 08:59 Last Admin: 07/31/19 08:27 Dose: 40 mg Documented by: Propafenone HCl (Rythmol) 150 mg PO Q8H [facility] Stop: 08/27/19 05:59 Last Admin: 07/31/19 14:01 Dose: 150 mg Documented by: Roflumilast (Daliresp) 500 mcg PO DAILY [facility] Stop: 08/27/19 08:59 Last Admin: 07/31/19 08:24 Dose: 500 mcg Documented by: Sertraline HCl (Zoloft) 25 mg PO QAM [facility] Stop: 08/27/19 08:59 Last Admin: 07/31/19 08:28 Dose: 25 mg Documented by:
[2019-07-31] MEDS: ACETYLCYSTEINE 20% INHAL SOLN 4ML ***DISPENSED BY RESP. INH SCH (19:06)
[2019-07-31] MEDS: LIDOCAINE 5% 1 PATCH TD SCH (20:32)
[2019-07-31] MEDS: ATORVASTATIN 20 MG TAB PO SCH (20:33)
[2019-07-31] MEDS ORDERED: ALBUT/IPRATROP 3MG/0.5MG NEB 3 ML VIAL NEB PRN (21:59)
[2019-07-31] MEDS ORDERED: ALBUT/IPRATROP 3MG/0.5MG NEB 3 ML VIAL NEB STA (22:00)
[2019-08-01] MEDS: IPRATROPIUM BROMIDE NEB SOLN 0.02% 2.5 ML VIAL INH SCH ×4 (00:40→19:22)
[2019-08-01] MEDS: LEVALBUTEROL 1.25MG/0.5ML NEB INH SCH ×4 (00:40→19:22)
[2019-08-01] MEDS ORDERED: VANCOMYCIN TROUGH ONE (01:30)
[2019-08-01 01:58] LABS: Hematocrit (blood only) 27.7 % (37-47); Hemoglobin 8.4 g/dL (12.0-16.0); Mean Corpuscular Hgb Conc 30.3 g/dL (32-36); Mean Corpuscular Volume 98.9 fL (80-100); Mean Platelet Volume 9.5 fL (7.4-10.4); Platelet Count 191 K/uL (130-400); RDW Coefficient of Variation 15.3 % (11.5-14.5); RDW Standard Deviation 55.4 fL (36.4-46.3); White Blood Count 14.87 K/uL (4.8-10.8)
[2019-08-01 02:16] LABS: Calcium 9.6 mg/dl (8.5-10.1); Creatinine Clr Calc Pharmacy 43.4 ml/min; Est GFR (African American) 43.7; Est GFR (Non-African American) 37.7; Potassium 3.2 mmol/L (3.5-5.1)
[2019-08-01] MEDS: PIPERACILLIN/TAZOBACTAM 4.5 GM in DEXTROSE 5% 100 ML IV SCH ×2 (02:27→09:56)
[2019-08-01] MEDS: VANCOMYCIN HCL 1,500 MG in SODIUM CHLORIDE 0.9% 500 ML IV SCH (02:27)
[2019-08-01] MEDS ORDERED: POTASSIUM CHLORIDE 20 MEQ TABCR PO STA ×2 (03:26→08:37)
[2019-08-01 03:43] LABS: Magnesium 2.2 mg/dl (1.8-2.4)
[2019-08-01] MEDS: OXYCODONE HCL IR 5 MG TAB (IMMEDIATE RELEASE) PO PRN (04:58)
[2019-08-01] MEDS: PROMETHAZINE HCL 12.5 MG in SODIUM CHLORIDE 0.9% 50 ML IV PRN (05:31)
[2019-08-01] MEDS: HEPARIN SOD 5,000 UNIT/0.5 ML VIAL SQ SCH ×3 (05:33→21:12)
[2019-08-01] MEDS: ACETAMINOPHEN 500 MG TAB PO SCH ×2 (05:35→16:43)
[2019-08-01] MEDS: LEVOTHYROXINE SODIUM 88 MCG TABLET PO SCH (05:35)
[2019-08-01] MEDS: PROPAFENONE HCL 150 MG TABLET PO SCH ×3 (05:36→21:14)
[2019-08-01] MEDS: ACETYLCYSTEINE 20% INHAL SOLN 4ML ***DISPENSED BY RESP. INH SCH (07:11)
[2019-08-01] MEDS: allopurinoL 300 MG TAB PO SCH (07:57)
[2019-08-01] MEDS: METOPROLOL SUCC 50MG EXT REL TAB PO SCH (07:57)
[2019-08-01] MEDS: FAMOTIDINE 10 MG TABLET PO SCH ×2 (07:57→20:25)
[2019-08-01] MEDS: MUPIROCIN 2% OINT 22 GM TUBE INTNAS SCH ×2 (07:57→20:18)
[2019-08-01] MEDS: predniSONE 20 MG TAB PO SCH (07:57)
[2019-08-01] MEDS: ROFLUMILAST 500 MCG TAB PO SCH (07:58)
[2019-08-01] MEDS: MULTIVITAMIN TAB PO SCH (07:58)
[2019-08-01] MEDS: AMLODIPINE BESYLATE 5 MG TAB PO SCH (07:58)
[2019-08-01] MEDS: SERTRALINE HCL 50 MG TABLET PO SCH (07:58)
[2019-08-01] MEDS: INSULIN ASPART 100 UNITS/ML 3 ML PEN SC SCH ×4 (08:00→21:12)
[2019-08-01] MEDS: INSULIN GLARGINE SOLOSTAR 100 UNITS/ML 3 ML PEN SC SCH (08:01)
--- NOTE | 2019-08-01 10:17 | Pulmonology Progress Note ---
Date of Service August 01, 2019 Assessment & Plan (1) Acute on chronic respiratory failure with hypoxia and hypercapnia: --Acute on chronic hypoxic hypercapnic respiratory failure Likely secondary to COPD exacerbation followed by aspiration pneumonia CXR: 07/28/19: No clear infiltrate appreciated, left lower lobe opacity likely represents prior bronchiectatic changes which are appreciated even on CAT scan done 06/22/2017 Should do 5 days of prednisone 40 mg p.o. and then stop. Continue flutter valve as tolerated Today is day 4 of Mucomyst nebs. Would discontinue at this point and follow clinically O2 supplementation to keep oxygen saturation between 88 to 92% due to chronic COPD BiPAP nightly and PRN shortness of breath Chest x-ray 07/30/19: Revealed new right lower lobe infiltrate. Still within 48hrs of time of admission. Looking at the history the patient gets could be aspiration pneumonia as it happened while she was sleeping and woke up with cough. Her BNP from the time of admission did go up to 3800 she got 60 of Lasix from the hospitalist early in the morning. Swallow eval completed 07/30/2019 secondary to aspiration episodes. No evidence of aspiration with bedside evaluation with thin liquids and with solids. Continue aspiration precautions as well as gastric reflux precautions. Patient does have a hospital bed at home and keeps head of bed elevated. We will continue to monitor clinically. Patient was admitted on 07/28/2019 and received cefepime in the ED. She was then started on doxycycline 100 mg p.o. twice daily. Doxycylcine was then changed to zosyn and vancomycin 07/30/18 due to chest x-ray changes. Can probably de- escalate to oral antibiotics today as patient is showing progressive improvement. Leukocytosis is also improving. (2) COPD exacerbation: Acute on chronic COPD with current exacerbation Home regimen includes Brio Ellipta as well as Roflumilast. Recommended to add Spiriva/Incruse on discharge Continue prednisone 40 mg daily for total 5 days, Roflumilast 500 mcg p.o. daily, Xopenex/ipratropium nebs every 6 hours scheduled Modest improvement on chest x-ray this morning. Continue out of bed to chair as tolerated and continue to ambulate as tolerated (3) Shortness of breath: Patient states that she feels like she is back to baseline Continue current treatment with Zosyn and respiratory regimen as listed above Currently receiving 40 mg of p.o. prednisone Patient treated initially for COPD exacerbation. On 07/30/2019 chest x-ray suggested aspiration pneumonia so antibiotics were escalated Continue to monitor clinically and with chest x-ray Maintain SaO2 between 88 and 92% secondary to COPD (4) Obesity hypoventilation syndrome: Continue home CPAP as tolerated Patient does have her own machine here and is authorized to use it. ABGs with compensated respiratory failure Patient alert and oriented and mentating well. (5) Bronchiectasis: Continue flutter valve and Mucomyst nebs Encourage ambulation Patient reports daily sputum production at home. Sputum is now clear since initiating treatment at [facility] Continue to follow clinically There continues to be no indication for bronchoscopy at this time Subjective Attending: Dr. Hayden Patient seen and examined at bedside. She is in bedside chair. She is pleasant and smiling this morning. She continues with a cough and some production of clear sputum but she reports that this is similar to at home. She has no fever or chills. Patient did not sleep well last night and had trouble keeping her CPAP on. Her home CPAP was alternated with the hospital provided CPAP and eventually patient was placed on nasal cannula for the remainder of the night. Today she is tired but she feels like she is improved from a respiratory standpoint. Review of Systems Review of Systems: All systems reviewed & are unremarkable except as noted in HPI & below Physical Exam Physical Exam: GENERAL : No acute distress. Pleasant EYES: No icterus, gaze conjugate NOSE: No evidence of epistaxis MOUTH: No lesions or candidiasis. No evidence of plaque on the tongue. Tongue is midline. NECK: Supple. No stridor or transmitted wheezes. LUNGS: Patient has some fine crackles at the bases. Otherwise, clear to auscul tation bilaterally. HEART: Regular, rate controlled ABDOMEN: Soft, NT, ND, BS Present EXTREMITIES: No LE edema, pedal pulses intact and equal bilaterally NEURO: A&OX3 Results & Data Vital Signs (Past 12 Hours) Vital Signs Temp Pulse Pulse Pulse Resp BP Pulse Ox 08/01/19 07:15 37.1 C 70 18 136/74 99 08/01/19 07:11 67 16 98 08/01/19 03:00 36.9 C 69 18 129/69 98 08/01/19 00:41 68 18 99 08/01/19 00:25 36.9 C 73 19 153/70 H 96 08/01/19 00:00 68 07/31/19 23:55 99 H 18 99 07/31/19 22:12 96 H 18 100 Laboratory Results 08/01/19 01:31 08/01/19 01:31 Diagnostic Findings No new imaging since yesterday. PG Care Time/CCT Total # of Minutes Spent Total Time Spent with Patient: Total time spent is greater than 50% in coordination of care (as documented) at patient's floor/unit and/or counseling patient: 30 minutes
--- NOTE | 2019-08-01 16:27 | Hospitalist Progress Note ---
Date of Service August 01, 2019 Assessment & Plan (1) Aspiration pneumonia: Antibiotic coverage was broadened to Zosyn. As patient is MRSA positive will also add vancomycin as this is a hospital-acquired pneumonia. Sputum culture was negative and she was clinically improved today so switched her to Augmentin to complete the course. (2) Acute and chronic respiratory failure with hypercapnia: Acute hypoxia and hypercapnia initially secondary to COPD exacerbation, complicated by possible aspiration episode while hospitalized overnight Subsequent hospital-acquired pneumonia. Improving on antibiotic therapy. Continue prednisone x 5 days, stop Mucomyst, flutter valve per pulmonology. Continue oxygen supplementation and nightly BiPAP. (3) Bronchiectasis: Continue flutter valve (4) COPD exacerbation: cont plan as above including nebulizer therapy and prednisone and also Roflumilast per home regimen. (5) Back pain: resolved. (6) DMII (diabetes mellitus, type 2): Basal bolus insulin with carb coverage and sliding scale. A1c reflects good control. Inpatient glucose is at goal. (7) Anemia: chronic and at baseline. Likely multifactorial secondary to chronic disease. She has frequent recent hospitalizations this year including approximately 4 in the last 5 months. No active bleeding noted. (8) Morbid obesity: Lifestyle modifications encouraged. (9) PAF (paroxysmal atrial fibrillation): Sinus rhythm during this hospitalization when on telemetry. Continue Toprol-XL 50 mg p.o. every morning, propafenone 150 mg p.o. every 8. She is followed by [facility] cardiology and has a questionable history of paroxysmal atrial fibrillation based on her medications however there is no available records to substantiate this. Continue home regimen. (10) SIMONA (obstructive sleep apnea): SIMONA/OHS. Continue home BiPAP. (11) CKD (chronic kidney disease), stage III: at baseline. (12) DVT prophylaxis: Heparin Full Code Dispo-to home when medically stable, possibly in am. Tonie Ann DO [facility] Hospitalist Subjective doing well today reports improvement in breathing, decreased amount of coughing and resolution of back pain. She declines home health Review of Systems Review of Systems: All systems reviewed & are unremarkable except as noted in HPI & below Physical Exam Physical Exam: CONSTITUTIONAL: obesity, vitals as above, generally well- appearing EYES: normal conjunctivae, no scleral icterus ENT: MMM RESPIRATORY: Clear lungs to auscultation CARDIOVASCULAR: regular rate and rhythm, S1 and 2 heard without murmurs, gallops or rubs, no JVD, no peripheral edema GASTROINTESTINAL: soft, nontender, nondistended, protuberant MUSCULOSKELETAL: strength 5/5 throughout, head is normocephalic and atraumatic SKIN: warm and dry NEUROLOGIC: CN 2-12 grossly intact, normal cognition, normal speech, no gross focal deficits PSYCHIATRIC: alert cooperative and oriented to person, place and time. Results & Data Vital Signs (Past 12 Hours) Vital Signs Temp Pulse Resp BP BP Pulse Ox 08/01/19 15:10 36.8 C 61 16 149/67 H 99 08/01/19 13:36 68 18 99 08/01/19 11:20 37.2 C 68 22 117/69 99 08/01/19 07:15 37.1 C 70 18 136/74 99 08/01/19 07:11 67 16 98 Laboratory Results Short CBC 08/01/19 Range/Units 01:31 WBC 14.87 H (4.8-10.8) K/uL Hgb 8.4 L (12.0-16.0) g/dL Hct 27.7 L (37-47) % Plt Count 191 (130-400) K/uL BMP 08/01/19 01:31 Sodium 142 Potassium 3.2 L Chloride 101 Carbon Dioxide 38 H BUN 29 H Creatinine 1.40 H Glucose 96 Calcium 9.6 Medications Administered Current Inpatient Medications Acetaminophen (Tylenol) 1,000 mg PO Q8 [facility] Stop: 08/27/19 21:59 Last Admin: 08/01/19 05:35 Dose: 1,000 mg Documented by: Acetylcysteine (Mucomyst 20%) 5 ml INH Q12R [facility] Stop: 08/30/19 18:59 Last Admin: 08/01/19 07:11 Dose: 5 ml Documented by: Albuterol (Duoneb) 3 ml NEB Q2H PRN PRN Reason: Wheezing Stop: 08/30/19 21:58 Allopurinol (Zyloprim) 300 mg PO QAM [facility] Stop: 08/27/19 08:59 Last Admin: 08/01/19 07:57 Dose: 300 mg Documented by: Amlodipine Besylate (Norvasc) [facility] [place] Stop: 08/28/19 08:59 Last Admin: 08/01/19 07:58 Dose: 2.5 mg Documented by: Atorvastatin Calcium (Lipitor) 20 mg PO QPM [facility] Stop: 08/27/19 20:59 Last Admin: 07/31/19 20:33 Dose: 20 mg Documented by: Dextrose (Dextrose 50%) 25 - 50 ml IV UD PRN; Protocol PRN Reason: Hypoglycemia Protocol Stop: 08/27/19 05:23 Famotidine (Pepcid) 10 mg PO BID [facility] Stop: 08/27/19 08:59 Last Admin: 08/01/19 07:57 Dose: 10 mg Documented by: Glucagon (Glucagen) 1 mg SQ UD PRN; Protocol PRN Reason: Hypoglycemia Protocol Stop: 08/27/19 05:23 Glucose (Dex4 Glucose) 4 - 8 tabs PO UD PRN; Protocol PRN Reason: Hypoglycemia Protocol Stop: 08/27/19 05:23 Glucose (Glucose 40%) 15 - 30 gm PO UD PRN; Protocol PRN Reason: Hypoglycemia Protocol Stop: 08/27/19 05:23 Heparin Sodium (Porcine) (Heparin Sodium (Porcine)) 5,000 units SQ Q8 [facility] Stop: 08/27/19 05:59 Last Admin: 08/01/19 05:33 Dose: Not Given Documented by: Promethazine HCl 12.5 mg/ (Sodium Chloride) 50.5 mls @ 202 mls/hr IV Q6H PRN PRN Reason: Nausea And Vomiting Stop: 08/27/19 05:23 Last Infusion: 08/01/19 05:50 Dose: Infused Documented by: Piperacillin Sod/Tazobactam (Sod 4.5 gm/ Dextrose) 120 mls @ 30 mls/hr IV Q8H [facility] Stop: 08/06/19 09:59 Last Infusion: 08/01/19 14:45 Dose: Infused Documented by: Vancomycin HCl 1,750 mg/ (Sodium Chloride) 535 mls @ 200 mls/hr IV Q24H [facility] Stop: 08/08/19 23:59 Insulin Aspart (Novolog Flexpen) 0 units SC ACHS [facility] Stop: 08/27/19 05:59 Last Admin: 08/01/19 14:45 Dose: 4 units Documented by: Insulin Glargine (Lantus Solostar Pen) 5 units SC DAILY [facility] Stop: 08/28/19 08:59 Last Admin: 08/01/19 08:01 Dose: 5 units Documented by: Ipratropium [place] (Atrovent 0.02% 0.5mg/2.5ml) 0.5 mg INH Q6R [facility] Stop: 08/27/19 06:59 Last Admin: 08/01/19 13:34 Dose: 0.5 mg Documented by: Levalbuterol HCl (Xopenex 1.25mg/0.5ml Neb) 1.25 mg INH Q6R [facility] Stop: 08/27/19 06:59 Last Admin: 08/01/19 13:34 Dose: 1.25 mg Documented by: Levothyroxine Sodium (Synthroid) 88 mcg PO DAILYBB [facility] Stop: 08/27/19 06:29 Last Admin: 08/01/19 05:35 Dose: 88 mcg Documented by: Lidocaine (Lidoderm 5%) 1 patch TD HS [facility] Stop: 08/28/19 01:29 Last Admin: 07/31/19 20:32 Dose: 1 patch Documented by: Metoprolol Succinate (Toprol Xl) 50 mg PO [facility] Stop: 08/28/19 08:59 Last Admin: 08/01/19 07:57 Dose: 50 mg Documented by: Miscellaneous (Carbohydrates For Hypoglycemia) 15 - 30 gm PO UD PRN PRN Reason: Hypoglycemia Protocol Stop: 08/27/19 05:23 Miscellaneous (Remove Lidoderm Patch) 1 ea N/A QAM [facility] Stop: 08/28/19 09:59 Last Admin: 08/01/19 08:06 Dose: 1 ea Documented by: Miscellaneous Information (Consult) 1 ea N/A UD PRN PRN Reason: Consult Stop: 08/29/19 04:54 Miscellaneous Information (Consult) 1 ea N/A UD PRN PRN Reason: Consult Stop: 08/29/19 11:06 Multivitamins (Multivitamin Tab) 1 tab PO [facility] Stop: 08/27/19 08:59 Last Admin: 08/01/19 07:58 Dose: 1 tab Documented by: Mupirocin (Bactroban 2%) 1 appln INTNAS BID [facility] Stop: 08/04/19 09:01 Last Admin: 08/01/19 07:57 Dose: 1 appln Documented by: Nitroglycerin (Nitrostat) 0.4 mg SL UD PRN PRN Reason: Chest Pain Stop: 08/27/19 05:23 Oxycodone HCl (Roxicodone Immediate Rel) 5 mg PO Q8H PRN PRN Reason: Severe Pain Stop: 08/11/19 18:19 Last Admin: 08/01/19 04:58 Dose: 5 mg Documented by: Prednisone (Prednisone) 40 mg PO DAILY [facility] Stop: 08/04/19 08:59 Last Admin: 08/01/19 07:57 Dose: 40 mg Documented by: Propafenone HCl (Rythmol) 150 mg PO Q8H [facility] Stop: 08/27/19 05:59 Last Admin: 08/01/19 05:36 Dose: 150 mg Documented by: Roflumilast (Daliresp) 500 mcg PO DAILY [facility] Stop: 08/27/19 08:59 Last Admin: 08/01/19 07:58 Dose: 500 mcg Documented by: Sertraline HCl (Zoloft) 25 mg PO QAM [facility] Stop: 08/27/19 08:59 Last Admin: 08/01/19 07:58 Dose: 25 mg Documented by:
[2019-08-01] MEDS: AMOXICILLIN/CLAVULANATE 875 MG TAB PO SCH (17:36)
[2019-08-01] MEDS: ATORVASTATIN 20 MG TAB PO SCH (20:25)
[2019-08-02] MEDS: LEVALBUTEROL 1.25MG/0.5ML NEB INH SCH ×4 (00:33→19:18)
[2019-08-02] MEDS: IPRATROPIUM BROMIDE NEB SOLN 0.02% 2.5 ML VIAL INH SCH ×5 (00:33→19:18)
[2019-08-02] MEDS ORDERED: VANCOMYCIN HCL 1,750 MG in SODIUM CHLORIDE 0.9% 500 ML IV SCH (02:00)
[2019-08-02] MEDS: ACETAMINOPHEN 325 MG TAB PO PRN ×2 (02:26→16:30)
[2019-08-02] MEDS: PROPAFENONE HCL 150 MG TABLET PO SCH ×3 (06:25→20:05)
[2019-08-02] MEDS: LEVOTHYROXINE SODIUM 88 MCG TABLET PO SCH (06:25)
[2019-08-02] MEDS: HEPARIN SOD 5,000 UNIT/0.5 ML VIAL SQ SCH ×3 (06:26→20:07)
[2019-08-02 07:01] LABS: Hematocrit (blood only) 28.1 % (37-47); Hemoglobin 8.6 g/dL (12.0-16.0); Mean Corpuscular Hemoglobin 30.4 pg (25-34); Mean Corpuscular Hgb Conc 30.6 g/dL (32-36); Mean Corpuscular Volume 99.3 fL (80-100); Mean Platelet Volume 9.2 fL (7.4-10.4); Platelet Count 187 K/uL (130-400); RDW Standard Deviation 54.7 fL (36.4-46.3); Red Blood Count 2.83 M/uL (4.2-5.4); White Blood Count 13.56 K/uL (4.8-10.8)
[2019-08-02 07:32] LABS: BUN Creatinine Ratio 23.1 (10-20); Calcium 10.2 mg/dl (8.5-10.1); Est GFR (African American) 55.4; Est GFR (Non-African American) 47.8; Potassium 3.8 mmol/L (3.5-5.1)
[2019-08-02] MEDS: AMLODIPINE BESYLATE 5 MG TAB PO SCH (08:31)
[2019-08-02] MEDS: FAMOTIDINE 10 MG TABLET PO SCH ×2 (08:31→20:05)
[2019-08-02] MEDS: SERTRALINE HCL 50 MG TABLET PO SCH (08:31)
[2019-08-02] MEDS: METOPROLOL SUCC 50MG EXT REL TAB PO SCH (08:31)
[2019-08-02] MEDS: allopurinoL 300 MG TAB PO SCH (08:31)
[2019-08-02] MEDS: MUPIROCIN 2% OINT 22 GM TUBE INTNAS SCH ×2 (08:32→20:07)
[2019-08-02] MEDS: predniSONE 20 MG TAB PO SCH (08:32)
[2019-08-02] MEDS: AMOXICILLIN/CLAVULANATE 875 MG TAB PO SCH (08:32)
[2019-08-02] MEDS: MULTIVITAMIN TAB PO SCH (08:32)
[2019-08-02] MEDS: ROFLUMILAST 500 MCG TAB PO SCH (08:32)
[2019-08-02] MEDS: INSULIN GLARGINE SOLOSTAR 100 UNITS/ML 3 ML PEN SC SCH (08:32)
[2019-08-02] MEDS: INSULIN ASPART 100 UNITS/ML 3 ML PEN SC SCH ×4 (08:36→20:10)
--- NOTE | 2019-08-02 12:43 | Pulmonology Progress Note ---
Date of Service August 02, 2019 Assessment & Plan (1) Acute on chronic respiratory failure with hypoxia and hypercapnia: Likely secondary to COPD exacerbation followed by aspiration pneumonia * Sputum now growing gram-negative bacilli -sensitivities are pending CXR: 07/28/19: No clear infiltrate appreciated, left lower lobe opacity likely represents prior bronchiectatic changes which are appreciated even on CAT scan done 06/22/2017 Should do 5 days of prednisone 40 mg p.o. and then stop. Continue flutter valve as tolerated Today is day 4 of Mucomyst nebs. Would discontinue at this point and follow clinically O2 supplementation to keep oxygen saturation between 88 to 92% due to chronic COPD BiPAP nightly and PRN shortness of breath Chest x-ray 07/30/19: Revealed new right lower lobe infiltrate. Still within 48hrs of time of admission. Looking at the history the patient gets could be aspiration pneumonia as it happened while she was sleeping and woke up with cough. Her BNP from the time of admission did go up to 3800 she got 60 of Lasix from the hospitalist early in the morning. Chest x-ray 07/31/2019: Revealed persistent but mildly improved bibasilar opac ities favoring pneumonia. Swallow eval completed 07/30/2019 secondary to aspiration episodes. No evidence of aspiration with bedside evaluation with thin liquids and with solids. Continue aspiration precautions as well as gastric reflux precautions. Patient does have a hospital bed at home and keeps head of bed elevated. We will continue to monitor clinically. Patient was admitted on 07/28/2019 and received cefepime in the ED. She was then started on doxycycline 100 mg p.o. twice daily. Doxycylcine was then changed to zosyn and vancomycin 07/30/18 due to chest x-ray changes. De-escalated to Augmentin 08/01/2019. Leukocytosis is also improving. Today is day #6 of antibiotics Inasmuch as sputum sample is in a non-fermented patch, must consider Pseudomonas. Will discontinue Augmentin and start cefepime today pending identification of pathogen and sensitivities. (2) COPD exacerbation: Acute on chronic COPD with current exacerbation Home regimen includes Brio Ellipta as well as Roflumilast. Recommended to add Spiriva/Incruse on discharge No bronchospasm Patient has received 6 days of prednisone 40 mg daily - may discontinue today. Continue Roflumilast 500 mcg p.o. daily, Xopenex/ipratropium nebs every 6 hours scheduled Continue out of bed to chair as tolerated and continue to ambulate as tolerated (3) Shortness of breath: Patient states that she feels like she is back to baseline Day 6 of antibiotics Received 6 days of steroids Patient treated initially for COPD exacerbation. On 07/30/2019 chest x-ray suggested aspiration pneumonia so antibiotics were escalated Continue to monitor clinically Maintain SaO2 between 88 and 92% secondary to COPD (4) Obesity hypoventilation syndrome: Continue home CPAP as tolerated Patient does have her own machine here and is authorized to use it. ABGs with compensated respiratory failure Patient alert and oriented and mentating well. (5) Bronchiectasis: Continue flutter valve Today is day # 3 of Mucomyst nebs Encourage ambulation Patient reports daily sputum production at home. Sputum is now clear since initiating treatment at [facility] Continue to follow clinically There continues to be no indication for bronchoscopy at this time Thank you for including us in the care of this patient. We will continue to follow. Please refer to Dr. Hayden's addendum and corrections for further recommendations. Subjective Attending: Dr. Hayden Patient seen and examined at bedside. She feels much improved. She feels that she is at baseline. However, on examination patient has bilateral crackles. She is positive for history of MRSA. Currently she is growing gram-negative bacilli from her expectorated sputum. Blood cultures have been negative for growth to date. Patient is afebrile and she is oxygenating well at her baseline supplemental O2 by nasal cannula. Patient did have leukocytosis but that is improving and currently WBC is 13.56. Vancomycin and Zosyn were discontinued yesterday. Patient currently is on Augmentin 875 mg p.o. twice daily. Today is currently day 6 of antibiotics. Patient has no acute complaints Review of Systems Review of Systems: All systems reviewed & are unremarkable except as noted in HPI & below Physical Exam Physical Exam: GENERAL : No acute distress. Pleasant. Patient in bed as she was just transferred from second floor to room 458-1 EYES: No icterus, gaze conjugate NOSE: No evidence of epistaxis. Nasal cannula is in place and secure MOUTH: No lesions or candidiasis. Mucosa is moist NECK: Supple LUNGS: Bibasilar Rales. No appreciation of bronchospasm or rhonchi. HEART: Regular, rate controlled ABDOMEN: Soft, NT, ND, BS Present EXTREMITIES: No LE edema, pedal pulses intact NEURO: A&OX3 Results & Data Vital Signs (Past 12 Hours) Vital Signs Temp Pulse Resp BP Pulse Ox 08/02/19 10:38 36.5 C 72 20 180/73 H 94 08/02/19 07:36 36.6 C 70 16 149/59 H 97 08/02/19 06:59 71 18 99 Laboratory Results 08/02/19 06:35 08/02/19 06:35 Diagnostic Findings XR chest 1V portable CLINICAL HISTORY: f/u COMPARISON STUDY: Chest radiograph July 30, 2019. FINDINGS: Incidental note is made of a right shoulder arthroplasty and vertebroplasty. There is no pneumothorax. There are small bilateral pleural effusions. Bibasilar opacities have mildly improved. There is no evidence for overt pulmonary edema. IMPRESSION: 1. Persistent, but mildly improved, bibasilar opacities which favor pneumonia. Continued radiographic follow-up to ensure resolution is recommended. 2. Suspected small bilateral pleural effusions ACT 112: Negative or not required by law. Electronically signed by: Quentin Maier M.D. 07/31/2019 7:28 AM PG Care Time/CCT Total # of Minutes Spent Total Time Spent with Patient: Total time spent is greater than 50% in coordination of care (as documented) at patient's floor/unit and/or counseling patient: 30 minutes
--- NOTE | 2019-08-02 15:32 | Hospitalist Progress Note ---
Date of Service August 02, 2019 Assessment & Plan (1) Aspiration pneumonia: Clinically improved, Sputum culture gram-negative bacilli: Antibiotic started on cefepime 08/02/2019 for Pseudomonas coverage (2) Acute and chronic respiratory failure with hypercapnia: Acute hypoxia and hypercapnia initially secondary to COPD exacerbation, complicated by possible aspiration episode while hospitalized overnight Subsequent hospital-acquired pneumonia. Respiratory status improved, antibiotic as above (3) Bronchiectasis: Continue flutter valve (4) COPD exacerbation: Quit smoking 12 years ago Continue home O2 Home regimen includes Brio Ellipta as well as Roflumilast. Patient input from pulmonology: Recommend: to add Spiriva/Incruse on discharge No indication for steroids on discharge (5) Back pain: resolved. (6) DMII (diabetes mellitus, type 2): Basal bolus insulin with carb coverage and sliding scale. A1c reflects good control. Inpatient glucose is at goal. (7) Anemia: chronic and at baseline. Likely multifactorial secondary to chronic disease. She has frequent recent hospitalizations this year including approximately 4 in the last 5 months. No active bleeding noted. (8) Morbid obesity: Lifestyle modifications encouraged. (9) PAF (paroxysmal atrial fibrillation): Continue Toprol-XL 50 mg p.o. every morning, propafenone 150 mg p.o. every 8. (10) SIMONA (obstructive sleep apnea): SIMONA/OHS. Continue home BiPAP. (11) CKD (chronic kidney disease), stage III: at baseline. (12) DVT prophylaxis: Subcu heparin Full Code Subjective Still have nonproductive cough, no fever or chills, no hypoxia Review of Systems Review of Systems: As per HPI, all 10 systems reviewed, all other ROS negative Respiratory: + cough; no wheezing Physical Exam Constitutional: WD/WN, vitals as above no acute distress Eyes: PERRL, conjunctivae normal, anicteric sclerae ENMT: external ear and nose normal, oropharynx normal Neck: trachea midline, no thyromegaly Respiratory: + cough; + abnormal respiratory effort and no respiratory distress Auscultation: + diminished lung sounds Cardiovascular: RRR, no murmur, no edema Gastrointestinal (Abdomen): normal bowel sounds, soft, nontender, no hepatosplenomegaly Musculoskeletal: no cyanosis or clubbing, extremities motor strength 5/5 Skin: no rashes, warm and dry Neurologic: PERRL, EOMI, accommodation nl, no face palsy, no dysarthria Psychiatric: A+Ox3, euthymic affect Results & Data Vital Signs (Past 12 Hours) Vital Signs Temp Pulse Resp BP BP Pulse Ox 08/02/19 15:27 36.5 C 75 99 H 167/71 H 08/02/19 14:10 65 162/74 H 08/02/19 13:40 78 18 95 08/02/19 10:38 36.5 C 72 20 180/73 H 94 08/02/19 07:36 36.6 C 70 16 149/59 H 97 08/02/19 06:59 71 18 99
[2019-08-02] MEDS: CEFEPIME 2,000 MG in SYRINGE 7.5 ML IV SCH (16:28)
[2019-08-02] MEDS ORDERED: ONDANSETRON 4 MG OD TAB PO PRN (17:32)
[2019-08-02] MEDS: GABAPENTIN 300 MG CAP PO SCH (20:03)
[2019-08-02] MEDS: ATORVASTATIN 20 MG TAB PO SCH (20:05)
[2019-08-03] MEDS: IPRATROPIUM BROMIDE NEB SOLN 0.02% 2.5 ML VIAL INH SCH ×4 (00:25→19:52)
[2019-08-03] MEDS: LEVALBUTEROL 1.25MG/0.5ML NEB INH SCH ×4 (00:25→19:52)
[2019-08-03] MEDS: ACETAMINOPHEN 325 MG TAB PO PRN ×2 (02:32→14:47)
[2019-08-03] MEDS: CEFEPIME 2,000 MG in SYRINGE 7.5 ML IV SCH ×3 (02:35→15:43)
[2019-08-03] MEDS: PROPAFENONE HCL 150 MG TABLET PO SCH ×3 (06:00→21:04)
[2019-08-03] MEDS: LEVOTHYROXINE SODIUM 88 MCG TABLET PO SCH (06:03)
[2019-08-03] MEDS: HEPARIN SOD 5,000 UNIT/0.5 ML VIAL SQ SCH ×3 (06:04→21:08)
[2019-08-03] MEDS: AMLODIPINE BESYLATE 5 MG TAB PO SCH (08:19)
[2019-08-03] MEDS: FAMOTIDINE 10 MG TABLET PO SCH ×2 (08:19→20:28)
[2019-08-03] MEDS: MUPIROCIN 2% OINT 22 GM TUBE INTNAS SCH ×2 (08:19→20:28)
[2019-08-03] MEDS: METOPROLOL SUCC 50MG EXT REL TAB PO SCH (08:19)
[2019-08-03] MEDS: ROFLUMILAST 500 MCG TAB PO SCH (08:19)
[2019-08-03] MEDS: allopurinoL 300 MG TAB PO SCH (08:20)
[2019-08-03] MEDS: MULTIVITAMIN TAB PO SCH (08:20)
[2019-08-03] MEDS: predniSONE 20 MG TAB PO SCH (08:20)
[2019-08-03] MEDS: SERTRALINE HCL 50 MG TABLET PO SCH (08:21)
[2019-08-03] MEDS: INSULIN ASPART 100 UNITS/ML 3 ML PEN SC SCH ×4 (08:32→21:07)
[2019-08-03] MEDS: INSULIN GLARGINE SOLOSTAR 100 UNITS/ML 3 ML PEN SC SCH (08:34)
--- NOTE | 2019-08-03 08:47 | Pulmonology Progress Note ---
Date of Service August 03, 2019 Assessment & Plan (1) SOB (shortness of breath): Multifactorial to pneumonia, COPD Exacerbation, chronic hypercapnic respiratory failure, SIMONA, obesity, and fluid overload Primary team managing fluid overload * Positive 6.4 L this admission See below for balance of plan (2) Pneumonia: Day #8 Antibiotics * Started on Doxycycline * Changed to Zosyn and Vanco secondary to changes to CXR, question of aspiration, and Hx of MRSA * Sputum culture grew Gram neg bacilli and patient changed to Cefepime 08/02/19 * This morning, cultures revealed pseudomonas aeruginosa which is pansensitive * Ok to change to Ciprofloxacin Outpatient follow up in the pulmonary clinic in 2 weeks Laterality: bilateral Lung location: unspecified part of lung Pneumonia type: due to unspecified organism Qualified Code(s): J18.9 - Pneumonia, unspecified organism (3) Chronic hypercapnic respiratory failure: Obstructive sleep apnea Patient with home CPAP * Continue HS and as needed during the day Follow outpatient (4) MRSA (methicillin resistant staph aureus) culture positive: Continue isolation precautions (5) COPD (chronic obstructive pulmonary disease): Quit smoking 12 years ago Continue home O2 Home regimen includes Brio Ellipta as well as Roflumilast. Recommended to add Spiriva/Incruse on discharge No indication for steroids on discharge Thank you for including us in the care of this patient. We will sign off at this time. Please feel free to reconsult as needed Please refer to Dr. Hayden's addendum and corrections for further recommendations. We will be glad to follow Ms. Victoriarene in the outpatient clinic. Subjective Attention: Dr. Hayden Patient is feeling well. She still has significant cough but no significant sputum production. No fever or chills. No cough. No acute complaints Review of Systems Review of Systems: All systems reviewed & are unremarkable except as noted in HPI & below Physical Exam Physical Exam: GENERAL : No acute distress EYES: No icterus, gaze conjugate NOSE: No evidence of epistaxis MOUTH: No lesions or candidiasis NECK: Supple LUNGS: Bibasilar rales. Very minimal bronchospasm in the mid posterior lung valdez. HEART: Regular, rate controlled ABDOMEN: Soft, NT, ND, BS Present EXTREMITIES: No LE edema, pedal pulses intact NEURO: A&OX3 Results & Data Vital Signs (Past 12 Hours) Vital Signs Temp Pulse Resp BP BP Pulse Ox 08/03/19 07:07 36.3 C L 68 18 146/70 H 100 08/03/19 06:55 74 18 100 08/03/19 00:25 70 18 100 08/02/19 23:54 36.5 C 66 20 164/76 H 100 Laboratory Results 08/02/19 06:35 08/02/19 06:35 PG Care Time/CCT Total # of Minutes Spent Total Time Spent with Patient: Total time spent is greater than 50% in coordination of care (as documented) at patient's floor/unit and/or counseling patient: 30 minutes
[2019-08-03] MEDS ORDERED: FUROSEMIDE 40 MG TAB PO ONE (17:30)
--- NOTE | 2019-08-03 17:31 | Hospitalist Progress Note ---
Date of Service August 03, 2019 Assessment & Plan (1) Aspiration pneumonia: Clinically improved, Sputum culture gram-negative bacilli:pseudmonas , gil sensitive Antibiotic started on cefepime 08/02/2019 for Pseudomonas coverage antibiotic can be changed to pO levaquin on discharge total 7 days tx (2) Acute and chronic respiratory failure with hypercapnia: Acute hypoxia and hypercapnia initially secondary to COPD exacerbation, complicated by possible aspiration episode while hospitalized overnight Subsequent hospital-acquired pneumonia. Respiratory status improved, antibiotic as above (3) Bronchiectasis: Continue flutter valve (4) COPD exacerbation: Quit smoking 12 years ago Continue home O2 Home regimen includes Brio Ellipta as well as Roflumilast. Patient input from pulmonology: Recommend: to add Spiriva/Incruse on discharge No indication for steroids on discharge (5) Back pain: resolved. (6) DMII (diabetes mellitus, type 2): Basal bolus insulin with carb coverage and sliding scale. A1c reflects good control. Inpatient glucose is at goal. (7) Anemia: chronic and at baseline. Likely multifactorial secondary to chronic disease. She has frequent recent hospitalizations this year including approximately 4 in the last 5 months. No active bleeding noted. (8) Morbid obesity: Lifestyle modifications encouraged. (9) PAF (paroxysmal atrial fibrillation): Continue Toprol-XL 50 mg p.o. every morning, propafenone 150 mg p.o. every 8. (10) SIMONA (obstructive sleep apnea): SIMONA/OHS. Continue home BiPAP. (11) CKD (chronic kidney disease), stage III: at baseline. (12) DVT prophylaxis: Subcu heparin Full Code pt refused rehab and home health lives with daughter plan to discharge home tomorrow 08/04/19 Subjective cough has improved no SOB on 4 L 02 via nasal canula which is her baseline no fever or chills very eager to be discharged home Review of Systems Review of Systems: As per HPI, all 10 systems reviewed, all other ROS negative Respiratory: + cough; no wheezing Physical Exam Constitutional: WD/WN, vitals as above no acute distress Eyes: PERRL, conjunctivae normal, anicteric sclerae ENMT: external ear and nose normal, oropharynx normal Neck: trachea midline, no thyromegaly Respiratory: + cough; + abnormal respiratory effort and no respiratory distress Auscultation: + diminished lung sounds Cardiovascular: RRR, no murmur, no edema Gastrointestinal (Abdomen): normal bowel sounds, soft, nontender, no hepatosplenomegaly Musculoskeletal: no cyanosis or clubbing, extremities motor strength 5/5 Skin: no rashes, warm and dry Neurologic: PERRL, EOMI, accommodation nl, no face palsy, no dysarthria Psychiatric: A+Ox3, euthymic affect Results & Data Vital Signs (Past 12 Hours) Vital Signs Temp Pulse Resp BP BP Pulse Ox 08/03/19 15:19 36.8 C 69 18 139/59 L 99 08/03/19 13:19 74 20 100 08/03/19 07:07 36.3 C L 68 18 146/70 H 100 08/03/19 06:55 74 18 100
[2019-08-03] MEDS: TRAMADOL HCL 50 MG TABLET PO PRN (19:44)
[2019-08-03] MEDS: GABAPENTIN 300 MG CAP PO SCH (20:28)
[2019-08-03] MEDS: ATORVASTATIN 20 MG TAB PO SCH (20:28)
[2019-08-04] MEDS: LEVALBUTEROL 1.25MG/0.5ML NEB INH SCH ×3 (01:17→13:10)
[2019-08-04] MEDS: IPRATROPIUM BROMIDE NEB SOLN 0.02% 2.5 ML VIAL INH SCH ×3 (01:17→13:10)
[2019-08-04] MEDS: ACETAMINOPHEN 325 MG TAB PO PRN ×2 (01:37→11:27)
[2019-08-04] MEDS: CEFEPIME 2,000 MG in SYRINGE 7.5 ML IV SCH (02:13)
[2019-08-04] MEDS: HEPARIN SOD 5,000 UNIT/0.5 ML VIAL SQ SCH ×2 (05:47→14:10)
[2019-08-04] MEDS: PROPAFENONE HCL 150 MG TABLET PO SCH ×2 (05:48→14:10)
[2019-08-04] MEDS: LEVOTHYROXINE SODIUM 88 MCG TABLET PO SCH (05:49)
[2019-08-04] MEDS: MULTIVITAMIN TAB PO SCH (08:24)
[2019-08-04] MEDS: METOPROLOL SUCC 50MG EXT REL TAB PO SCH (08:24)
[2019-08-04] MEDS: AMLODIPINE BESYLATE 5 MG TAB PO SCH (08:25)
[2019-08-04] MEDS: FAMOTIDINE 10 MG TABLET PO SCH (08:26)
[2019-08-04] MEDS: allopurinoL 300 MG TAB PO SCH (08:26)
[2019-08-04] MEDS: MUPIROCIN 2% OINT 22 GM TUBE INTNAS SCH (08:26)
[2019-08-04] MEDS: ROFLUMILAST 500 MCG TAB PO SCH (08:26)
[2019-08-04] MEDS: SERTRALINE HCL 50 MG TABLET PO SCH (08:28)
[2019-08-04] MEDS: INSULIN ASPART 100 UNITS/ML 3 ML PEN SC SCH ×2 (08:33→12:42)
[2019-08-04] MEDS: INSULIN GLARGINE SOLOSTAR 100 UNITS/ML 3 ML PEN SC SCH (08:34)
[2019-08-04] MEDS: TRAMADOL HCL 50 MG TABLET PO PRN (08:43)
[2019-08-04 14:42] LABS: BUN Creatinine Ratio 19.6 (10-20); Calcium 9.9 mg/dl (8.5-10.1); Creatinine Clr Calc Pharmacy 38.1 ml/min; Est GFR (Non-African American) 32.8; Potassium 3.5 mmol/L (3.5-5.1)
[2019-08-04] MEDS ORDERED: levoFLOXacin 750 MG TAB PO SCH (15:00)
--- NOTE | 2019-08-04 16:35 | Hospitalist Progress Note ---
Date of Service August 04, 2019 Assessment & Plan (1) Aspiration pneumonia: Clinically improved, Sputum culture gram-negative bacilli:pseudmonas , gil sensitive Antibiotic started on cefepime 08/02/2019 for Pseudomonas coverage antibiotic can be changed to pO levaquin 750 mg every 48 hours and dose adjusted per renal clearance Patient will need 4 more days of antibiotic therapy (2) Acute and chronic respiratory failure with hypercapnia: Acute hypoxia and hypercapnia initially secondary to COPD exacerbation, complicated by possible aspiration episode while hospitalized overnight Subsequent hospital-acquired pneumonia. Respiratory status improved, antibiotic as above Able to be discharged home (3) Bronchiectasis: Continue flutter valve (4) COPD exacerbation: Quit smoking 12 years ago Continue home O2 Home regimen includes Brio Ellipta as well as Roflumilast. Appreciate input from pulmonology: Added Spiriva/Incruse on discharge-new prescription sent to patient's pharmacy No indication for steroids on discharge (5) Back pain: resolved. (6) DMII (diabetes mellitus, type 2): Basal bolus insulin with carb coverage and sliding scale. A1c reflects good control. Patient is resumed with outpatient antidiabetic meds on discharge. (7) Anemia: chronic and at baseline. Likely multifactorial secondary to chronic disease. She has frequent recent hospitalizations this year including approximately 4 in the last 5 months. No active bleeding noted. (8) Morbid obesity: Lifestyle modifications encouraged. (9) PAF (paroxysmal atrial fibrillation): Continue Toprol-XL 50 mg p.o. every morning, propafenone 150 mg p.o. every 8. (10) SIMONA (obstructive sleep apnea): SIMONA/OHS. Continue home BiPAP. (11) CKD (chronic kidney disease), stage III: Acute renal failure on CKD stage III Creatinine noted to be elevated 1.5 Patient was given IV Lasix for concern for possible volume overload Clinically patient appears to be euvolemic Outpatient diuretics Bumex, metolazone ordered to kept on hold on discharge Repeat lab work: BMP on next physician visit on 08/08/2019 Bumex and metolazone could be resumed once renal function back to baseline (12) DVT prophylaxis: Subcu heparin Full Code pt refused rehab and home health lives with daughter Stable to be discharged home today, daughter Noreen updated over phone, will provide transportation Subjective And up on chair, denies of any shortness of breath or discomfort On 4 L oxygen which is her baseline No cough no fever or chills Very eager to be discharged home Review of Systems Review of Systems: As per HPI, all 10 systems reviewed, all other ROS negative Respiratory: + wheezing; no cough Physical Exam Constitutional: WD/WN, vitals as above no acute distress Eyes: PERRL, conjunctivae normal, anicteric sclerae ENMT: external ear and nose normal, oropharynx normal Neck: trachea midline, no thyromegaly Respiratory: + cough; + abnormal respiratory effort and no respiratory distress Auscultation: + diminished lung sounds and + wheezes Cardiovascular: RRR, no murmur, no edema Gastrointestinal (Abdomen): normal bowel sounds, soft, nontender, no hepatosplenomegaly Musculoskeletal: no cyanosis or clubbing, extremities motor strength 5/5 Skin: no rashes, warm and dry Neurologic: PERRL, EOMI, accommodation nl, no face palsy, no dysarthria Psychiatric: A+Ox3, euthymic affect Results & Data Vital Signs (Past 12 Hours) Vital Signs Temp Pulse Pulse Resp BP BP Pulse Ox 08/04/19 15:23 36.3 C L 83 76 20 153/69 H 149/68 H 96 08/04/19 14:55 36.3 C L 83 20 153/69 H 96 08/04/19 13:13 76 16 100 08/04/19 07:35 66 16 100 08/04/19 07:14 36.4 C L 68 16 149/68 H 100 08/04/19 05:51 69 152/85 H
--- NOTE | 2019-08-04 16:37 | Discharge Summary ---
Date of Service August 04, 2019 Admission HPI Per Admitting Provider History obtained from patient and records. Medical history significant for chronic hypoxemic respiratory failure secondary to COPD on home O2, pulmonary hypertension, OHS on CPAP, paroxysmal atrial fibrillation not on anticoagulation secondary to GI bleed (11/2018), hypertension, chronic diastolic heart failure, EF of 60-65%, TTE 2018, past tobacco abuse, chronic renal insufficiency, baseline creatinine 1.2-1.5, chronic anemia (baseline hemoglobin of 8-9). Recent confinement April 2019 for left shoulder pain secondary to traumatic fall. 2 weeks history of junky productive cough symptoms along with worsening shortness of breath. No chest pain, no aspiration. Fever, chills at home. Possible sick contacts at home as per patient. Nausea, nonbloody diarrhea at home without abdominal pain as per patient. No unusual fluid retention/weight gain as per patient. Usual back pain complaints. At the ER, patient received Solu-Medrol for COPD exacerbation. Medical History as above Surgical History : Appendectomy, cholecystectomy, wrist surgery, shoulder surgery, hip replacement, neck surgery Family History : Diabetes, heart disease Personal/Social history : Past tobacco abuse, no EtOH intake, retired from [employer] work Principal Diagnosis COPD exacerbation/Pseudomonas/MSSA pneumonia Discharge Exam Constitutional WD/WN, vitals as above no acute distress Eyes PERRL, conjunctivae normal, anicteric sclerae ENMT external ear and nose normal, oropharynx normal Neck trachea midline, no thyromegaly Respiratory + cough; + abnormal respiratory effort and no respiratory distress Auscultation: + diminished lung sounds and + wheezes Cardiovascular RRR, no murmur, no edema Gastrointestinal (Abdomen) normal bowel sounds, soft, nontender, no hepatosplenomegaly Musculoskeletal no cyanosis or clubbing, extremities motor strength 5/5 Skin no rashes, warm and dry Neurologic PERRL, EOMI, accommodation nl, no face palsy, no dysarthria Psychiatric A+Ox3, euthymic affect Discharge Data Allergies Allergy/AdvReac Type Severity Reaction Status Date / Time adhesive Allergy Severe RED RASH Verified 07/28/19 01:37 latex AdvReac Mild TAPE-SORE Verified 07/28/19 01:37 morphine AdvReac Mild DELUSIONS Verified 07/28/19 01:37 Consultations 07/28/19 02:16 ED Decision to Admit Stat 07/28/19 04:02 Consult Pulmonology Routine 07/28/19 05:24 Consult Case Management - Discharge Planning Routine Hospital Course (1) Aspiration pneumonia: Clinically improved, Sputum culture gram-negative bacilli:pseudmonas , gil sensitive Antibiotic started on cefepime 08/02/2019 for Pseudomonas coverage antibiotic can be changed to pO levaquin 750 mg every 48 hours and dose adjusted per renal clearance Patient will need 4 more days of antibiotic therapy (2) Acute and chronic respiratory failure with hypercapnia: Acute hypoxia and hypercapnia initially secondary to COPD exacerbation, complicated by possible aspiration episode while hospitalized overnight Subsequent hospital-acquired pneumonia. Respiratory status improved, antibiotic as above Able to be discharged home (3) Bronchiectasis: Continue flutter valve (4) COPD exacerbation: Quit smoking 12 years ago Continue home O2 Home regimen includes Brio Ellipta as well as Roflumilast. Appreciate input from pulmonology: Added Spiriva/Incruse on discharge-new prescription sent to patient's pharmacy No indication for steroids on discharge (5) Back pain: resolved. (6) DMII (diabetes mellitus, type 2): Basal bolus insulin with carb coverage and sliding scale. A1c reflects good control. Patient is resumed with outpatient antidiabetic meds on discharge. (7) Anemia: chronic and at baseline. Likely multifactorial secondary to chronic disease. She has frequent recent hospitalizations this year including approximately 4 in the last 5 months. No active bleeding noted. (8) Morbid obesity: Lifestyle modifications encouraged. (9) PAF (paroxysmal atrial fibrillation): Continue Toprol-XL 50 mg p.o. every morning, propafenone 150 mg p.o. every 8. (10) SIMONA (obstructive sleep apnea): SIMONA/OHS. Continue home BiPAP. (11) CKD (chronic kidney disease), stage III: Acute renal failure on CKD stage III Creatinine noted to be elevated 1.5 Patient was given IV Lasix for concern for possible volume overload Clinically patient appears to be euvolemic Outpatient diuretics Bumex, metolazone ordered to kept on hold on discharge Repeat lab work: BMP on next physician visit on 08/08/2019 Bumex and metolazone could be resumed once renal function back to baseline (12) DVT prophylaxis: Subcu heparin Full Code pt refused rehab and home health lives with daughter Stable to be discharged home today, daughter Noreen updated over phone, will provide transportation Total Time Total Time Spent Total Time Spent (In Minutes): Approximately 40 minutes Total Time Includes: Examination of the Patient, Discharge Planning and Medication Reconciliation Discharge Plan Discharge Items Patient Disposition: Home - Self-Care Reason For Visit: COPD EXACERBATION/Pseudomonas pneumonia Discharge Diagnosis: COPD exacerbation/Pseudomonas pneumonia Activity: Resume your previous activity Non-emergency contact: Primary Care Provider Call non-emergency contact if: you have any medication questions Follow-up/Referrals: Dulce Dewitt DO [Physician] - 08/08/19 10:15 am Diet: Heart Healthy Addtl Attending Provider Instructions: Lab work : Basic metabolic panel on 08/08/19 DO NOT TAKE MOTRIN , ALEVE , NAPROXEN , ADVIL, HIGH DOSE ASPIRIN , AVOID THESE OVER THE COUNTER PAIN MEDICATION WHICH CAN WORSEN YOUR RENAL FUNCTION YOU ARE ASKED NOT TAKE YOU WATER PILLS/DIURETICS : BUMEX AND METOLAZONE FOR RENAL FAILURE CAN BE RESUMED BY YOUR FAMILY PHYSICIAN WITH LOWER DOSE ONCE YOUR LAB WORK IS AVAILABLE Pending Studies at Discharge: No Stand-Alone Forms: My [facility] [employer], Smoking Cessation Medications and DC Order Prescriptions: New Spiriva with HandiHaler 18 mcg capsule, w/inhalation device 1 cap INH DAILY Qty: 30 RF: 3 levofloxacin 750 mg Tablet 750 mg PO Q48H Qty: 2 RF: 0 Continued Breo Ellipta 200-25 mcg/dose Blister With Device 1 inh INHALATION DAILY RF: 0 multivitamin Tablet 1 tab PO QAM RF: 0 propafenone 150 mg Tablet 150 mg PO Q8H RF: 0 gabapentin 600 mg Tablet 300 mg PO HS RF: 0 atorvastatin 20 mg Tablet 20 mg PO QPM RF: 0 metoprolol succinate 50 mg Tablet Extended Release 24 Hr 50 mg PO QAM RF: 0 levothyroxine 88 mcg Tablet 88 mcg PO DAILYBB RF: 0 ranitidine HCl 150 mg Tablet 150 mg PO BID RF: 0 sertraline [Zoloft] 25 mg Tablet 25 mg PO QAM RF: 0 allopurinol 300 mg Tablet 300 mg PO QAM RF: 0 cholecalciferol (vitamin D3) [Vitamin D3] 2,000 unit Tablet 2,000 unit PO QAM RF: 0 Daliresp 500 mcg Tablet 500 mcg PO DAILY RF: 0 albuterol sulfate 2.5 mg /3 mL (0.083 %) Solution For Nebulization 2.5 mg INHALATION Q6 PRN (Reason: Shortness Of Breath Or Wheezing) RF: 0 Discontinued potassium chloride 20 mEq Tablet Extended Release 20 meq PO Q OTHER DAY RF: 0 metolazone 2.5 mg tablet 2.5 mg PO 2XWK RF: 0 bumetanide 1 mg tablet 1 mg PO BID RF: 0 ondansetron 4 mg tablet,disintegrating 4 mg PO Q6H PRN (Reason: nausea and vomiting) Qty: 14 RF: 0 Discharge Orders: Discharge Order (Routine); Ordered 08/04/19 Ordered By: Kandy Larson Admission Data Admit Date/Time: 07/28/19 03:45 Attending Provider: Kandy Larson Admit Provider: Spencer Lowery Primary Care Provider: Babak Melendez Other Providers: Spencer Lowery ; Charlie Dickey ; Duc Hernandez ; Hailey Lewis ; Juan J Wright ; Sonam Harrison ; Spencer Rodgers ; Denis Ramirez Janet R. ; Jose Antonio Hayden ; Isa Florentino Other Interventions: Discharge Summary Assessment (RN) Last Done: 08/04/19 15:23
== END 2019-08-04 17:08 | disposition home or self-care (01) | DRG 189 ==
LOC: ED 00:32 → SUATTDRO 03:45 → 2N 03:45 → 4W 08-02 10:50

== ENCOUNTER 2019-08-09 21:26 | Observation (INO) ==
[2019-08-09] MEDS ORDERED: ACETAMINOPHEN 1,000 MG/100 ML VIAL IV STA (21:39)
[2019-08-09] MEDS ORDERED: KETOROLAC TROMETHAMINE 15 MG/ML VIAL IV ONE (21:39)
--- NOTE | 2019-08-09 21:59 | Emergency Department Note ---
Entered by Isabela Latham acting as a scribe for History of Present Illness General Chief complaint: Shortness of Breath/Dyspnea Stated complaint: SOB Time Seen by Provider: 08/09/19 21:34 Source: patient History of Present Illness Onset (ago): day(s) 1 Location: chest Pain Consistency: + constant Maximum Pain Intensity: 10 Current Pain Intensity: 10 Quality: + aching Relieved By: + none Associated symptoms: + malaise, + shortness of breath, + weakness and + other (increased fluid buildup) Treatments prior to arrival: other (Tylenol, nebulizer treatment) The patient is a 69 year old female who presents to the Emergency Room with complaints of shortness of breath that occurred over the last 24 hours. The patient received a nebulizer treatment in the ambulance. She notes that she has a cough with sputum along with nausea. She complains of malaise, weakness, and swelling. She was taking a water pill for fluid buildup, but notes that she was taken off of it when she was in the hospital last. The patient is on 4 L of oxygen at home and lives with her daughter. She took Tylenol for her body aches and pain, but notes that it did not help relieve her symptoms Past medical records reviewed. The patient was discharged on August 04, 5 days ago. She was admitted for an exacerbation of COPD and pneumonia. The patient was discharged on Levaquin. Her Bumex was stopped at this time. Home Medications Home Medications Medication Instructions Recorded Confirmed Type Breo Ellipta 1 inh INHALATION DAILY 03/12/18 08/09/19 History Daliresp 500 mcg PO DAILY 03/12/18 08/09/19 History allopurinol 300 mg PO QAM 03/12/18 08/09/19 History atorvastatin 20 mg PO QPM 03/12/18 08/09/19 History cholecalciferol (vitamin D3) 2,000 unit PO QAM 03/12/18 08/09/19 History [Vitamin D3] gabapentin 300 mg PO HS 03/12/18 08/09/19 History levothyroxine 88 mcg PO DAILYBB 03/12/18 08/09/19 History metoprolol succinate 50 mg PO QAM 03/12/18 08/09/19 History multivitamin 1 tab PO QAM 03/12/18 08/09/19 History propafenone 150 mg PO Q8H 03/12/18 08/09/19 History ranitidine HCl 150 mg PO BID 03/12/18 08/09/19 History sertraline [Zoloft] 25 mg PO QAM 03/12/18 08/09/19 History albuterol sulfate 2.5 mg INHALATION Q6 PRN 08/07/18 08/09/19 History tiotropium bromide [Spiriva with 1 cap INH DAILY #30 puffs 08/03/19 08/09/19 Rx HandiHaler] levofloxacin 750 mg PO Q48H #2 tab 08/04/19 08/09/19 Rx Allergies Allergy/AdvReac Type Severity Reaction Status Date / Time adhesive Allergy Severe RED RASH Verified 08/09/19 23:43 latex AdvReac Mild TAPE-SORE Verified 08/09/19 23:43 morphine AdvReac Mild DELUSIONS Verified 08/09/19 23:43 Past Med/Surg History Medical History Acute bronchitis Anemia (Chronic) Asthma (Chronic) Chronic anemia (Chronic) Chronic respiratory failure (Chronic) Chronic respiratory failure with hypoxia, on home O2 therapy (Chronic) CKD (chronic kidney disease), stage IV (Chronic) COPD (chronic obstructive pulmonary disease) (Chronic) COPD exacerbation Depression (Chronic) Diarrhea Diastolic CHF, chronic (Chronic) DVT prophylaxis Dyslipidemia (Chronic) GERD (gastroesophageal reflux disease) (Chronic) HTN (hypertension) (Chronic) EVONNE (iron deficiency anemia) (Chronic) Lumbar spinal stenosis (Chronic) Morbid obesity (Chronic) Myocardial infarction (Chronic) "per patient, details unknown" Obesity hypoventilation syndrome (Chronic) Paroxysmal a-fib (Chronic) Surgical History History of appendectomy (Chronic) 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) Hx of cholecystectomy (Chronic) S/P cervical spinal fusion (Chronic) S/P wrist surgery (Chronic) Family History Father Trauma Mother Diabetes Cerebral aneurysm Daughter Bipolar 1 disorder Social History Preferred Language: Yoruba Communication Ability: Effective Shell Plater Required: No Beliefs That Will Affect Care: None marital status: Current Living Situation: Family Current Living Situation Comment: Lives with daughter Feels Safe at Home: Yes Smoking Status: Former smoker Tobacco Type: cigarettes ; Cigarettes Per Day: 2 packs ; Second Hand Exposure: No ; Hx Alcohol Use: No Hx Substance Use: No Review of Systems See HPI for pertinent positives & negatives. and A total of 10 systems reviewed and were otherwise negative Physical Exam Vital Signs Vital Signs - 24 hr 08/09/19 21:30 08/09/19 21:52 08/09/19 22:02 Temperature 36.9 C Temperature Source Oral Pulse Rate 79 Pulse Rate [Left Finger] Pulse Rhythm [Left Finger] Pulse Strength [Left Finger] Respiratory Rate 28 H Respiratory Effort / Characteristics Respiratory Depth Respiratory Pattern Blood Pressure 153/70 H Blood Pressure [Right Radial Artery] Blood Pressure Mean 97 Blood Pressure Mean [Right Radial Artery] Blood Pressure Position [Right Radial Artery] Pulse Oximetry 95 99 100 Oxygen Delivery Method Nasal Cannula Room Air Nasal Cannula Oxygen Flow Rate 2 2 Sepsis Recent Fever Within 48 Hours No Sepsis Action Taken by Nursing No Action Required 08/09/19 22:39 08/09/19 23:05 Temperature Temperature Source Pulse Rate Pulse Rate [Left Finger] 78 78 Pulse Rhythm [Left Finger] Regular Pulse Strength [Left Finger] Normal Respiratory Rate 18 22 Respiratory Effort / Characteristics Non-Labored Spontaneous Non-Labored Spontaneous Respiratory Depth Normal Respiratory Pattern Regular Blood Pressure Blood Pressure [Right Radial Artery] 162/64 H Blood Pressure Mean Blood Pressure Mean [Right Radial Artery] 96 Blood Pressure Position [Right Radial Artery] Sitting Pulse Oximetry 97 99 Oxygen Delivery Method Nasal Cannula Room Air Oxygen Flow Rate 3 Sepsis Recent Fever Within 48 Hours Sepsis Action Taken by Nursing GENERAL: Patient is in no acute distress. HEENT: No acute trauma, normocephalic atraumatic, mucous membranes moist, no nasal congestion, no scleral icterus. NECK: No stridor, no adenopathy, no meningismus, trachea is midline. LUNGS: Crackles at right base. No wheezing. Equal breath sounds. No significant respiratory distress. Increased respiratory rate. HEART: Without murmurs gallops or rubs, regular rate and rhythm. ABDOMEN: Soft, nontender, bowel sounds positive, no hernias, no peritonitis. EXTREMITIES: Moderate bilateral pedal edema. No cyanosis, full range of motion of all the joints without pain or difficulty, no signs for acute trauma. NEUROLOGIC: Oriented x 3, no acute motor or sensory deficits, no focal weakness. SKIN: No rash, no jaundice, no diaphoresis. Course Course 2138: Past medical records reviewed. The patient was evaluated in room B05. A complete history and physical exam was performed. 0005: I spoke to the patient, who feels like she will not be able to function at home. She states that she would be agreeable with staying in the hospital. The hospitalist has been paged. 0030: I talked to Dr. Lowery, [facility] hospitalist, who agreed to take over care of the patient. The patient understands and is agreeable to the treatment plan. The patient will be evaluated for further treatment. Administered Medications Discontinued Medications Albuterol (Duoneb) 3 ml NEB NOW STA Stop: 08/09/19 22:24 Last Admin: 08/09/19 22:39 Dose: 3 ml Documented by: [id number] Hydromorphone HCl (Dilaudid) 0.5 mg IV NOW STA Stop: 08/09/19 23:19 Last Admin: 08/09/19 23:22 Dose: 0.5 mg Documented by: [id number] Acetaminophen (Ofirmev) 1,000 mg in 100 mls @ 400 mls/hr IV NOW STA Stop: 08/09/19 21:53 Last Infusion: 08/09/19 23:05 Dose: 0 mls/hr Documented by: [id number] Admin: 08/09/19 22:05 Dose: 400 mls/hr Documented by: [id number] Magnesium Sulfate/Dextrose (Magnesium Sulfate / D5w) 1 gm in 100 mls @ 100 mls/hr IV ONE ONE Stop: 08/09/19 23:21 Last Infusion: 08/10/19 00:12 Dose: 0 mls/hr Documented by: [id number] Admin: 08/09/19 22:53 Dose: 100 mls/hr Documented by: [id number] Bumetanide 1 mg/ Syringe 4 mls @ 4 mls/min IV NOW STA Stop: 08/09/19 22:36 Last Admin: 08/09/19 23:02 Dose: 4 mls/min Documented by: [id number] Ketorolac Tromethamine (Toradol) 10 mg IV NOW ONE Stop: 08/09/19 21:40 Last Admin: 08/09/19 22:05 Dose: 10 mg Documented by: [id number] Magnesium Oxide (Mag-Ox) 400 mg PO NOW STA Stop: 08/09/19 22:23 Last Admin: 08/09/19 22:53 Dose: 400 mg Documented by: [id number] Medical Decision Making Differential Diagnosis Differential diagnosis includes: influenza, flu like illness, CHF, fluid overload, pneumonia, bronchitis, exacerbation of COPD, anemia, MT, among others were considered Medical Records Attestation: I reviewed the patient's medical records. Home Medications Current Medication List: was personally reviewed by me Laboratory Data Attestation: I reviewed the patient's lab results. Result diagrams: 08/09/19 21:32 08/09/19 21:32 Lab Results 08/09/19 08/09/19 08/09/19 Range/Units 21:32 21:32 21:32 WBC 13.56 H (4.8-10.8) K/uL RBC 2.86 L (4.2-5.4) M/uL Hgb 8.7 L (12.0-16.0) g/dL Hct 28.5 L (37-47) % MCV 99.7 (80-100) fL MCH 30.4 (25-34) pg MCHC 30.5 L (32-36) g/dL RDW Std Deviation 54.9 H (36.4-46.3) fL RDW Coeff of Arabella 15.0 H (11.5-14.5) % Plt Count 236 (130-400) K/uL MPV 9.7 (7.4-10.4) fL Immature Gran % (Auto) 0.5 % Neut % (Auto) 76.6 % Lymph % (Auto) 15.6 % [place] % (Auto) 4.8 % Eos % (Auto) 2.3 % Baso % (Auto) 0.2 % Immature Gran # (Auto) 0.07 H (0.00-0.02) K/uL Neut # (Auto) 10.38 H (1.4-6.5) K/uL Lymph # (Auto) 2.12 (1.2-3.4) K/uL [place] # (Auto) 0.65 H (0.11-0.59) K/uL Eos # (Auto) 0.31 (0-0.5) K/uL Baso # (Auto) 0.03 (0-0.2) K/uL PT 10.5 (9.0-12.0) Seconds INR 1.0 (0.9-1.1) APTT 23.1 (21.0-31.0) Seconds PTT Ratio 0.9 Sodium 140 (136-145) mmol/L Potassium 4.2 (3.5-5.1) mmol/L Chloride 100 (98-107) mmol/L Carbon Dioxide 38 H (21-32) mmol/L Anion Gap 2.0 L (3-11) BUN 30 H (7-18) mg/dl Creatinine 1.66 H (0.6-1.2) mg/dl Est Cr Clr Drug Dosing 37.2 ml/min Est GFR ( Amer) 35.6 Est GFR (Non-Af Amer) 30.7 BUN/Creatinine Ratio 18.1 (10-20) Glucose 158 H (70-99) mg/dl Calcium 10.0 (8.5-10.1) mg/dl Magnesium 1.6 L (1.8-2.4) mg/dl Total Bilirubin 0.3 (0.2-1) mg/dl AST 8 L (15-37) U/L ALT 12 (12-78) U/L Alkaline Phosphatase 75 (45-117) U/L Troponin I < 0.015 (0-0.045) ng/ml NT-Pro-B Natriuret Pep 2402 H (0-900) pg/ml Total Protein 7.4 (6.4-8.2) gm/dl Albumin 2.9 L (3.4-5.0) gm/dl Globulin 4.5 H (2.5-4.0) gm/dl Albumin/Globulin Ratio 0.6 L (0.9-2) Influenza Type A (PCR) (Neg) Influenza Type B (PCR) (Neg) 08/09/19 Range/Units 21:58 WBC (4.8-10.8) K/uL RBC (4.2-5.4) M/uL Hgb (12.0-16.0) g/dL Hct (37-47) % MCV (80-100) fL MCH (25-34) pg MCHC (32-36) g/dL RDW Std Deviation (36.4-46.3) fL RDW Coeff of Arabella (11.5-14.5) % Plt Count (130-400) K/uL MPV (7.4-10.4) fL Immature Gran % (Auto) % Neut % (Auto) % Lymph % (Auto) % [place] % (Auto) % Eos % (Auto) % Baso % (Auto) % Immature Gran # (Auto) (0.00-0.02) K/uL Neut # (Auto) (1.4-6.5) K/uL Lymph # (Auto) (1.2-3.4) K/uL [place] # (Auto) (0.11-0.59) K/uL Eos # (Auto) (0-0.5) K/uL Baso # (Auto) (0-0.2) K/uL PT (9.0-12.0) Seconds INR (0.9-1.1) APTT (21.0-31.0) Seconds PTT Ratio Sodium (136-145) mmol/L Potassium (3.5-5.1) mmol/L Chloride (98-107) mmol/L Carbon Dioxide (21-32) mmol/L Anion Gap (3-11) BUN (7-18) mg/dl Creatinine (0.6-1.2) mg/dl Est Cr Clr Drug Dosing ml/min Est GFR ( Amer) Est GFR (Non-Af Amer) BUN/Creatinine Ratio (10-20) Glucose (70-99) mg/dl Calcium (8.5-10.1) mg/dl Magnesium (1.8-2.4) mg/dl Total Bilirubin (0.2-1) mg/dl AST (15-37) U/L ALT (12-78) U/L Alkaline Phosphatase (45-117) U/L Troponin I (0-0.045) ng/ml NT-Pro-B Natriuret Pep (0-900) pg/ml Total Protein (6.4-8.2) gm/dl Albumin (3.4-5.0) gm/dl Globulin (2.5-4.0) gm/dl Albumin/Globulin Ratio (0.9-2) Influenza Type A (PCR) Neg for Influ A (Neg) Influenza Type B (PCR) Neg for Influ B (Neg) Imaging Data Radiologist's Impression: Radiology results as stated below per my review and the radiologist's interpretation: XR chest 1V portable HISTORY: Shortness of breath. COMPARISON: Chest 07/31/2019. FINDINGS: The heart remains mildly enlarged. There is a right shoulder prosthesis. Bibasilar densities have improved. Mild interstitial thickening has also improved. This suggests resolving congestive change. No pleural effusions. No pneumothorax. IMPRESSION: Interval improvement in the mild congestive change and near complete resolution of the bibasilar densities. ACT 112: Negative or not required by law. Electronically signed by: Henry Bourne M.D. 08/09/2019 10:17 PM ECG Data Attestation: I personally reviewed and interpreted this ECG as follows: Indication: + SOB/dyspnea Rate (beats per minute): 75 Rhythm: + normal sinus ECG Intervals/blocks: + Normal QT-c (444) ECG ST segments: no ST elevation ECG Findings: no PVCs MDM Narrative There is a slight leukocytosis, this appears baseline though looking back at previous testing. The patient is anemic but this is baseline. There is a normal platelet count. No coagulopathy. There was some mild renal insufficienc y but this is baseline looking back at previous testing. Magnesium was low at 1.6. No worrisome liver enzyme elevation. BNP was slightly elevated but the value was around her typical BNP values. Influenza testing was negative. Chest film does not show pneumonia or CHF. The pneumonia that was present with her last hospitalization has cleared. EKG shows a sinus rhythm, no acute ischemia. Cardiac enzyme testing x1 is not consistent with acute cardiac injury. Patient was given IV Bumex, 1 mg for her edema. She received a DuoNeb. She was given IV Tylenol and IV Toradol. She eventually received a dose of IV Dilaudid for additional pain control. She received oral and IV magnesium. The patient presents with shortness of breath, pedal edema and body aches. She cannot function well at home. The body aches and joint pain may be from her recent Levaquin use. The lower magnesium value could be contributing to her weakness and fatigue. Certainly, the pedal edema may be contributing to her symptoms as well. Of note, her Bumex was discontinued during her last hospitalization. The patient is not able to be discharged home. I did speak with case management about potential assisted living care or some sort of different living situation to help manage all her chronic issues. I spoke to the patient about her findings. The on-call hospitalist was consulted. Continuous Cardiac Monitoring: An order was placed for continuous cardiac monitoring. The monitor shows a rate of 78 with normal sinus rhythm. Impression & Plan Shortness of breath, Body aches, Pedal edema, Hypomagnesemia Discharge Plan Visit Data Chief Complaint: Shortness of Breath/Dyspnea Stated Complaint: SOB ED Provider: Juan J Escobar Discharge Problem: Shortness of breath, Body aches, Pedal edema, Hypomagnesemia Forms Stand Alone Forms: My [facility] Prescriptions Prescriptions: No Action Breo Ellipta 200-25 mcg/dose Blister With Device 1 inh INHALATION DAILY RF: 0 multivitamin Tablet 1 tab PO QAM RF: 0 propafenone 150 mg Tablet 150 mg PO Q8H RF: 0 gabapentin 600 mg Tablet 300 mg PO HS RF: 0 atorvastatin 20 mg Tablet 20 mg PO QPM RF: 0 metoprolol succinate 50 mg Tablet Extended Release 24 Hr 50 mg PO QAM RF: 0 levothyroxine 88 mcg Tablet 88 mcg PO DAILYBB RF: 0 ranitidine HCl 150 mg Tablet 150 mg PO BID RF: 0 sertraline [Zoloft] 25 mg Tablet 25 mg PO QAM RF: 0 allopurinol 300 mg Tablet 300 mg PO QAM RF: 0 cholecalciferol (vitamin D3) [Vitamin D3] 2,000 unit Tablet 2,000 unit PO QAM RF: 0 Daliresp 500 mcg Tablet 500 mcg PO DAILY RF: 0 albuterol sulfate 2.5 mg /3 mL (0.083 %) Solution For Nebulization 2.5 mg INHALATION Q6 PRN (Reason: Shortness Of Breath Or Wheezing) RF: 0 Spiriva with HandiHaler 18 mcg capsule, w/inhalation device 1 cap INH DAILY Qty: 30 RF: 3 levofloxacin 750 mg Tablet 750 mg PO Q48H Qty: 2 RF: 0 The scribe's documentation has been prepared under my direction and personally reviewed by me in its entirety. I confirm that the note above accurately reflects all work, treatment, procedures, and medical decision making performed by me.
[2019-08-09 22:05] LABS: Basophils # (auto) 0.03 K/uL (0-0.2); Basophils % (auto) 0.2 %; Eosinophils # (auto) 0.31 K/uL (0-0.5); Eosinophils % (auto) 2.3 %; Hematocrit (blood only) 28.5 % (37-47); Hemoglobin 8.7 g/dL (12.0-16.0); Immature Granulocytes # (auto) 0.07 K/uL (0.00-0.02); Immature Granulocytes % (auto) 0.5 %; Lymphocytes # (auto) 2.12 K/uL (1.2-3.4); Lymphocytes % (auto) 15.6 %; Mean Corpuscular Hemoglobin 30.4 pg (25-34); Mean Corpuscular Hgb Conc 30.5 g/dL (32-36); Mean Corpuscular Volume 99.7 fL (80-100); Mean Platelet Volume 9.7 fL (7.4-10.4); Monocytes # (auto) 0.65 K/uL (0.11-0.59); Monocytes % (auto) 4.8 %; Neutrophils # (auto) 10.38 K/uL (1.4-6.5); Neutrophils % (auto) 76.6 %; Platelet Count 236 K/uL (130-400); RDW Standard Deviation 54.9 fL (36.4-46.3); Red Blood Count 2.86 M/uL (4.2-5.4); White Blood Count 13.56 K/uL (4.8-10.8)
[2019-08-09 22:12] LABS: Alanine Aminotransferase 12 U/L (12-78); Albumin Level 2.9 gm/dl (3.4-5.0); Aspartate Aminotransferase 8 U/L (15-37); BUN Creatinine Ratio 18.1 (10-20); Blood Urea Nitrogen 30 mg/dl (7-18); Carbon Dioxide 38 mmol/L (21-32); Chloride 100 mmol/L (98-107); Creatinine Clr Calc Pharmacy 37.2 ml/min; Est GFR (African American) 35.6; Est GFR (Non-African American) 30.7; Glucose 158 mg/dl (70-99); Magnesium 1.6 mg/dl (1.8-2.4); Potassium 4.2 mmol/L (3.5-5.1); Sodium 140 mmol/L (136-145)
[2019-08-09 22:17] LABS: Albumin Globulin Ratio 0.6 (0.9-2); Alkaline Phosphatase 75 U/L (45-117); Bilirubin,Total 0.3 mg/dl (0.2-1); Globulin 4.5 gm/dl (2.5-4.0); NT Pro B Type Natriuretic Pept 2402 pg/ml (0-900); Total Protein 7.4 gm/dl (6.4-8.2); Troponin I < 0.015 ng/ml (0-0.045)
--- NOTE | 2019-08-09 22:18 | XRay Report ---
XR chest 1V portable HISTORY: Shortness of breath. COMPARISON: Chest 07/31/2019. FINDINGS: The heart remains mildly enlarged. There is a right shoulder prosthesis. Bibasilar densitie s have improved. Mild interstitial thickening has also improved. This suggests resolving congestive c hange. No pleural effusions. No pneumothorax. IMPRESSION: Interval improvement in the mild congestive change and near complete resolution of the bibasilar dens ities. ACT 112: Negative or not required by law. Electronically signed by: Henry Bourne M.D. 08/09/2019 10:17 PM
[2019-08-09] MEDS ORDERED: MAGNESIUM OXIDE 400 MG TAB PO STA (22:22)
[2019-08-09] MEDS ORDERED: MAGNESIUM SULFATE / D5W 1 GM/100 ML BAG IV ONE (22:22)
[2019-08-09] MEDS ORDERED: ALBUT/IPRATROP 3MG/0.5MG NEB 3 ML VIAL NEB STA (22:23)
[2019-08-09 22:32] LABS: Partial Thromboplastin Ratio 0.9; Partial Thromboplastin Time 23.1 Seconds (21.0-31.0); Prothrombin Time 10.5 Seconds (9.0-12.0)
[2019-08-09] MEDS ORDERED: BUMETANIDE 1 MG in SYRINGE 0 ML IV STA (22:35)
[2019-08-09 23:01] LABS: Influenza A virus by PCR Neg for Influ A (Neg); Influenza B virus by PCR Neg for Influ B (Neg)
[2019-08-09] MEDS ORDERED: HYDROmorphone INJ 0.5 MG/0.5 ML SYR IV STA (23:18)
[2019-08-10] MEDS ORDERED: METOPROLOL SUCC 25MG EXT REL TAB PO STA (00:57)
--- NOTE | 2019-08-10 03:12 | History & Physical Report ---
Date of Service August 10, 2019 Assessment & Plan (1) Shortness of breath: Mild CHF hx chronic diastolic heart failure, EF of 60-65%, TTE 2019 Home diuretics held on discharge from hospital last week due to kidney function ? Uncontrolled hypertension from chronic back pain possibly contributory Leg swelling secondary to above rule out DVT CRI, serum creatinine close to baseline chronic hypoxemic respiratory failure secondary to COPD on home O2, pulmonary hypertension, OHS on CPAP Recent pneumonia status post Levaquin Rx Pulmonary status at baseline paroxysmal atrial fibrillation not on anticoagulation secondary to GI bleed (11/2018), patient NSR past tobacco abuse chronic anemia secondary to CKD, hemoglobin at baseline ? Functional disability OBS Strict I/Os, daily weights, CHF education Resume home diuretic if serum creatinine stable LE venous Dopplers rule out DVT Titrate home BP meds, add Norvasc if still uncontrolled PT OT eval DVT prophylaxis. Heparin subcu Full code History of Present Illness Chief Complaint: Shortness of breath, weakness, leg swelling Primary Care Provider: Babak Melendez MD History obtained from patient and records. Medical history significant for chronic hypoxemic respiratory failure secondary to COPD on home O2, pulmonary hypertension, OHS on CPAP, paroxysmal atrial fi brillation not on anticoagulation secondary to GI bleed (11/2018), hypertension, chronic diastolic heart failure, EF of 60-65%, TTE 2019, past tobacco abuse, chronic renal insufficiency, baseline creatinine 1.2-1.5, chronic anemia (baseline hemoglobin of 8-9). Recent confinement recent confinement 2 weeks ago for COPD exacerbation, aspiration pneumonia. Patient discharged on Levaquin course. Home diuretics (Bumex and metolazone) held on discharge due to serum creatinine noted to be 1.5 as per discharge note. Somewhat short of breath, increasing weakness the last few days. Legs more swollen than usual. Cough actually better. No chest pain. Usual low back pain without unusual incontinence symptoms. No fever, no chills. Patient brought to the ER. Received Lasix for possible CHF. Medical History as above Surgical History : Appendectomy, cholecystectomy, wrist surgery, shoulder surgery, hip replacement, neck surgery Family History : Diabetes, heart disease Personal/Social history : Past tobacco abuse, no EtOH intake, retired from [email or web address] work Allergies Allergy/AdvReac Type Severity Reaction Status Date / Time adhesive Allergy Severe RED RASH Verified 08/09/19 23:43 latex AdvReac Mild TAPE-SORE Verified 08/09/19 23:43 morphine AdvReac Mild DELUSIONS Verified 08/09/19 23:43 Home Medications Home Medications Medication Instructions Recorded Confirmed Type Katrina Ellipta 1 inh INHALATION DAILY 03/12/18 08/09/19 History Daliresp 500 mcg PO DAILY 03/12/18 08/09/19 History allopurinol 300 mg PO QAM 03/12/18 08/09/19 History atorvastatin 20 mg PO QPM 03/12/18 08/09/19 History cholecalciferol (vitamin D3) 2,000 unit PO QAM 03/12/18 08/09/19 History [Vitamin D3] gabapentin 300 mg PO HS 03/12/18 08/09/19 History levothyroxine 88 mcg PO DAILYBB 03/12/18 08/09/19 History metoprolol succinate 50 mg PO QAM 03/12/18 08/09/19 History multivitamin 1 tab PO QAM 03/12/18 08/09/19 History propafenone 150 mg PO Q8H 03/12/18 08/09/19 History ranitidine HCl 150 mg PO BID 03/12/18 08/09/19 History sertraline [Zoloft] 25 mg PO QAM 03/12/18 08/09/19 History albuterol sulfate 2.5 mg INHALATION Q6 PRN 08/07/18 08/09/19 History tiotropium bromide [Spiriva with 1 cap INH DAILY #30 puffs 08/03/19 08/09/19 Rx HandiHaler] levofloxacin 750 mg PO Q48H #2 tab 08/04/19 08/09/19 Rx Past Med/Surg History Medical History Acute bronchitis Anemia (Chronic) Asthma (Chronic) Chronic anemia (Chronic) Chronic respiratory failure (Chronic) Chronic respiratory failure with hypoxia, on home O2 therapy (Chronic) CKD (chronic kidney disease), stage IV (Chronic) COPD (chronic obstructive pulmonary disease) (Chronic) COPD exacerbation Depression (Chronic) Diarrhea Diastolic CHF, chronic (Chronic) DVT prophylaxis Dyslipidemia (Chronic) GERD (gastroesophageal reflux disease) (Chronic) HTN (hypertension) (Chronic) EVONNE (iron deficiency anemia) (Chronic) Lumbar spinal stenosis (Chronic) Morbid obesity (Chronic) Myocardial infarction (Chronic) "per patient, details unknown" Obesity hypoventilation syndrome (Chronic) Paroxysmal a-fib (Chronic) Surgical History History of appendectomy (Chronic) 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) Hx of cholecystectomy (Chronic) S/P cervical spinal fusion (Chronic) S/P wrist surgery (Chronic) Family History Father Trauma Mother Diabetes Cerebral aneurysm Daughter Bipolar 1 disorder Social History Preferred Language: Gibraltarian Communication Ability: Effective [employer] Medic Required: No Beliefs That Will Affect Care: None marital status: Current Living Situation: Family Current Living Situation Comment: Lives with daughter Feels Safe at Home: Yes Safety Concerns: Feels Safe At This Time Smoking Status: Never smoker Tobacco Type: cigarettes ; Cigarettes Per Day: 2 packs ; Second Hand Exposure: No ; Hx Alcohol Use: No Hx Substance Use: No Review of Systems Review of Systems: As per HPI, all 10 systems reviewed, all other ROS negative Physical Exam Physical Exam: GENERAL: Anxious, obese, no respiratory distress SKIN: Pallor , warm HEENT: pale palpebral conjunctivae, no ptosis, dry buccal mucosa, nasal cannula in place NECK : Supple, short neck, no tenderness CHEST : Decreased breath sounds , no tenderness HEART : RRR, no obvious murmurs ABDOMEN: distention, nontender EXTREMITIES : Bilateral LE swelling, minimal LE tenderness, no other conspicuous deformities noted NEUROLOGIC : Coherent, no facial asymmetry, slightly hard of hearing, gait and stance not assessed Results & Data Vital Signs (Past 12 Hours) Vital Signs Temp Pulse Pulse Resp BP BP Pulse Ox 08/10/19 01:49 81 18 158/72 H 100 08/10/19 00:45 82 21 174/73 H 99 08/09/19 23:05 78 22 162/64 H 99 08/09/19 22:39 78 18 97 08/09/19 22:02 100 08/09/19 21:52 99 08/09/19 21:30 36.9 C 79 28 H 153/70 H 95 Laboratory Results Laboratory Results WBC 13.56 K/uL (4.8-10.8) H 08/09/19 21: RBC 2.86 M/uL (4.2-5.4) L 08/09/19 21:32 Hgb 8.7 g/dL (12.0-16.0) L 08/09/19 21:32 Hct 28.5 % (37-47) L 08/09/19 21: MCV 99.7 fL (80-100) 08/09/19 21: MCH 30.4 pg (25-34) 08/09/19 21: MCHC 30.5 g/dL (32-36) L 08/09/19 21: RDW Std Deviation 54.9 fL (36.4-46.3) H 08/09/19 21: RDW Coeff of Arabella 15.0 % (11.5-14.5) H 08/09/19 21: Plt Count 236 K/uL (130-400) 08/09/19 21: MPV 9.7 fL (7.4-10.4) 08/09/19 21: Immature Gran % (Auto) 0.5 % 08/09/19 21: Neut % (Auto) 76.6 % 08/09/19 21: Lymph % (Auto) 15.6 % 08/09/19 21: [place] % (Auto) 4.8 % 08/09/19 21: Eos % (Auto) 2.3 % 08/09/19: Baso % (Auto) 0.2 % 08/09/19: Immature Gran # (Auto) 0.07 K/uL (0.00-0.02) H 08/09/19 21:32 Neut # (Auto) 10.38 K/uL (1.4-6.5) H 08/09/19 21: Lymph # (Auto) 2.12 K/uL (1.2-3.4) 08/09/19 21: [place] # (Auto) 0.65 K/uL (0.11-0.59) H 08/09/19 21:32 Eos # (Auto) 0.31 K/uL (0-0.5) 08/09/19: Baso # (Auto) 0.03 K/uL (0-0.2) 08/09/19 21:32 PT 10.5 Seconds (9.0-12.0) 08/09/19 21:32 INR 1.0 (0.9-1.1) 08/09/19 21: APTT 23.1 Seconds (21.0-31.0) 08/09/19 21:32 PTT Ratio 0.9 08/09/19 21:32 Sodium 140 mmol/L (136-145) 08/09/19 21:32 Potassium 4.2 mmol/L (3.5-5.1) 08/09/19 21:32 Chloride 100 mmol/L (98-107) 08/09/19 21:32 Carbon Dioxide 38 mmol/L (21-32) H 08/09/19 21: Anion Gap 2.0 (3-11) L 08/09/19 21:32 BUN 30 mg/dl (7-18) H 08/09/19 21:32 Creatinine 1.66 mg/dl (0.6-1.2) H 08/09/19 21:32 Est Cr Clr Drug Dosing 37.2 ml/min 08/09/19 21:32 Est GFR ( Amer) 35.6 08/09/19 21:32 Est GFR (Non-Af Amer) 30.7 08/09/19 21:32 BUN/Creatinine Ratio 18.1 (10-20) 08/09/19 21: Glucose 158 mg/dl (70-99) H 08/09/19 21:32 Calcium 10.0 mg/dl (8.5-10.1) 08/09/19 21: Magnesium 1.6 mg/dl (1.8-2.4) L 08/09/19 21:32 Total Bilirubin 0.3 mg/dl (0.2-1) 08/09/19 21: AST 8 U/L (15-37) L 08/09/19 21:32 ALT 12 U/L (12-78) 08/09/19 21: Alkaline Phosphatase 75 U/L (45-117) 08/09/19 21:32 Troponin I < 0.015 ng/ml (0-0.045) 08/09/19 21:32 NT-Pro-B Natriuret Pep 2402 pg/ml (0-900) H 08/09/19 21:32 Total Protein 7.4 gm/dl (6.4-8.2) 08/09/19 21:32 Albumin 2.9 gm/dl (3.4-5.0) L 08/09/19 21:32 Globulin 4.5 gm/dl (2.5-4.0) H 08/09/19 21:32 Albumin/Globulin Ratio 0.6 (0.9-2) L 08/09/19 21:32 Influenza Type A (PCR) Neg for Influ A (Neg) 08/09/19 21:58 Influenza Type B (PCR) Neg for Influ B (Neg) 08/09/19 21:58 Diagnostic Findings Chest x-ray : Interval improvement in the mild congestive change and near complete resolution of the bibasilar densities. EKG as per my interpretation : Rate 75, NSR, normal axis, T wave flattening septal leads Code Status & VTE Plan VTE Prophylaxis Plan VTE Prophylaxis will be ordered: Yes
[2019-08-10] MEDS ORDERED: TRAMADOL HCL 50 MG TABLET PO STA (03:15)
[2019-08-10] MEDS ORDERED: NITROGLYCERIN SL 0.4 MG/TAB TAB SL PRN (04:34)
[2019-08-10] MEDS ORDERED: ACETAMINOPHEN 325 MG TAB PO PRN (04:34)
[2019-08-10 05:00] LABS: Basophils # (auto) 0.02 K/uL (0-0.2); Basophils % (auto) 0.2 %; Eosinophils # (auto) 0.23 K/uL (0-0.5); Eosinophils % (auto) 2.5 %; Hematocrit (blood only) 24.9 % (37-47); Hemoglobin 7.7 g/dL (12.0-16.0); Immature Granulocytes # (auto) 0.05 K/uL (0.00-0.02); Immature Granulocytes % (auto) 0.5 %; Lymphocytes # (auto) 2.24 K/uL (1.2-3.4); Lymphocytes % (auto) 24.5 %; Mean Corpuscular Hemoglobin 30.6 pg (25-34); Mean Corpuscular Hgb Conc 30.9 g/dL (32-36); Mean Corpuscular Volume 98.8 fL (80-100); Mean Platelet Volume 8.2 fL (7.4-10.4); Monocytes # (auto) 0.68 K/uL (0.11-0.59); Monocytes % (auto) 7.4 %; Neutrophils # (auto) 5.93 K/uL (1.4-6.5); Neutrophils % (auto) 64.9 %; Platelet Count 159 K/uL (130-400); RDW Coefficient of Variation 15.1 % (11.5-14.5); RDW Standard Deviation 53.8 fL (36.4-46.3); Red Blood Count 2.52 M/uL (4.2-5.4); White Blood Count 9.15 K/uL (4.8-10.8)
[2019-08-10 05:18] LABS: BUN Creatinine Ratio 21.5 (10-20); Calcium 9.1 mg/dl (8.5-10.1); Creatinine Clr Calc Pharmacy 42.8 ml/min; Est GFR (African American) 45.3; Est GFR (Non-African American) 39.1; Magnesium 1.9 mg/dl (1.8-2.4); Potassium 3.7 mmol/L (3.5-5.1)
[2019-08-10 05:21] LABS: Hypochromasia Present
[2019-08-10] MEDS ORDERED: AMLODIPINE BESYLATE 5 MG TAB PO ONE (05:23)
[2019-08-10] MEDS ORDERED: OXYCODONE HCL IR 5 MG TAB (IMMEDIATE RELEASE) PO STA (05:23)
[2019-08-10] MEDS: LIDOCAINE 5% 1 PATCH TD SCH (05:53)
[2019-08-10] MEDS: LEVOTHYROXINE SODIUM 88 MCG TABLET PO SCH (05:53)
[2019-08-10] MEDS ORDERED: HEPARIN SOD 5,000 UNIT/0.5 ML VIAL SQ SCH (06:00)
[2019-08-10 06:22] LABS: Appearance Urine Clear (Clear); Bacteria Urine Automated Negative (Negative); Bilirubin Urine Negative (Negative); Blood Urine Negative (Negative); Cast Urine Automated 0 /lpf (0-5); Color Urine Yellow; Epithelial Cell Urine Auto >30 /lpf (0-5); Glucose Urine UA Negative (Negative); Ketones Urine Negative (Negative); Leukocyte Esterase Urine 2+ (Negative); Nitrite Urine Negative (Negative); Protein Urine Negative (Negative); RBC Urine Automated 0-4 /hpf (0-4); Specific Gravity Urine 1.018 (1.000-1.030); Urobilinogen Urine Negative (Negative); pH Urine 5.5 (4.5-7.5)
--- NOTE | 2019-08-10 06:27 | Ultrasound Report ---
BILATERAL LOWER EXTREMITY VENOUS DOPPLER HISTORY: Acute pain and swelling of the lower extremities leg pain COMPARISON STUDY: Duplex venous Doppler study 07/27/2017. FINDINGS: There is normal compressibility, flow, and augmentation within the bilateral lower extremit y deep venous systems. Subcutaneous edema of the bilateral calves. Within the subcutaneous right calf there is a mildly complex hypoechoic elongated collection, 5.7 x 0.7 x 3.1 cm. IMPRESSION: 1. No sonographic evidence of deep venous thrombosis within the right or left lower extremity. 2. Subcutaneous edema of the bilateral lower legs. 3. Complex fluid collection of the subcutaneous lateral right calf measuring up to 5.7 cm. Correlate with patient history and clinical exam to exclude hematoma. ACT 112: Negative or not required by law. Electronically signed by: Ariel Shah M.D. 08/10/2019 6:26 AM
[2019-08-10] MEDS: PROPAFENONE HCL 150 MG TABLET PO SCH ×3 (06:33→19:58)
[2019-08-10] MEDS: FLUTICASONE/VILANTEROL 200/25MCG 14 PUFFS/INHALER INH SCH (08:34)
[2019-08-10] MEDS: UMECLIDINIUM BROMIDE 62.5MCG/BLISTER 7 PUFFS/INHALER INH SCH (08:35)
[2019-08-10] MEDS: FAMOTIDINE 10 MG TABLET PO SCH ×2 (08:36→20:00)
[2019-08-10] MEDS: ROFLUMILAST 500 MCG TAB PO SCH (08:37)
[2019-08-10] MEDS: MULTIVITAMIN TAB PO SCH (08:37)
[2019-08-10] MEDS: SERTRALINE HCL 50 MG TABLET PO SCH (08:37)
[2019-08-10] MEDS: allopurinoL 300 MG TAB PO SCH (08:37)
--- NOTE | 2019-08-10 14:49 | Orthopedic Consultation ---
Date of Consultation August 10, 2019 Assessment & Plan (1) Pedal edema: She admitted for bilateral lower leg swelling. Ultrasound was obtained to rule out DVT. This was negative for DVT. An incidental note of a fluid collection was seen. This was 5.5 cm x 0.7 cm x 3.1 cm. Patient does not recall any trauma. She does not oral anti-coagulation as she had previously had a GI bleed. However she was likely on subcu heparin during her most recent hospital admission which was only a week or so ago. This likely represents a hematoma. I do not appreciate any evidence of infection. I do not feel that the size of the fluid collection would warrant surgical intervention. Please contact us if she has worsening symptoms. History of Present Illness Attending Physician: Tonie Ann, History of Present Illness Patient is a 69-year-old female with numerous medical problems. She had recently been admitted for treatment of COPD exacerbation. She returned to the hospital with increasing lower extremity swelling and cough. She denies fevers or chills. She complaining of pain in the right calf. She previously had a hematoma in this leg that has required wound management. She denies any known trauma to the leg. Allergies Allergy/AdvReac Type Severity Reaction Status Date / Time adhesive Allergy Severe RED RASH Verified 08/09/19 23:43 latex AdvReac Mild TAPE-SORE Verified 08/09/19 23:43 morphine AdvReac Mild DELUSIONS Verified 08/09/19 23:43 Home Medications Home Medications Medication Instructions Recorded Confirmed Type Breo Ellipta 1 inh INHALATION DAILY 03/12/18 08/09/19 History Daliresp 500 mcg PO DAILY 03/12/18 08/09/19 History allopurinol 300 mg PO QAM 03/12/18 08/09/19 History atorvastatin 20 mg PO QPM 03/12/18 08/09/19 History cholecalciferol (vitamin D3) 2,000 unit PO QAM 03/12/18 08/09/19 History [Vitamin D3] gabapentin 300 mg PO HS 03/12/18 08/09/19 History levothyroxine 88 mcg PO DAILYBB 03/12/18 08/09/19 History metoprolol succinate 50 mg PO QAM 03/12/18 08/09/19 History multivitamin 1 tab PO QAM 03/12/18 08/09/19 History propafenone 150 mg PO Q8H 03/12/18 08/09/19 History ranitidine HCl 150 mg PO BID 03/12/18 08/09/19 History sertraline [Zoloft] 25 mg PO QAM 03/12/18 08/09/19 History albuterol sulfate 2.5 mg INHALATION Q6 PRN 08/07/18 08/09/19 History tiotropium bromide [Spiriva with 1 cap INH DAILY #30 puffs 08/03/19 08/09/19 Rx HandiHaler] levofloxacin 750 mg PO Q48H #2 tab 08/04/19 08/09/19 Rx Patient History Medical History Acute bronchitis Anemia (Chronic) Asthma (Chronic) Chronic anemia (Chronic) Chronic respiratory failure (Chronic) Chronic respiratory failure with hypoxia, on home O2 therapy (Chronic) CKD (chronic kidney disease), stage IV (Chronic) COPD (chronic obstructive pulmonary disease) (Chronic) COPD exacerbation Depression (Chronic) Diarrhea Diastolic CHF, chronic (Chronic) DVT prophylaxis Dyslipidemia (Chronic) GERD (gastroesophageal reflux disease) (Chronic) HTN (hypertension) (Chronic) EVONNE (iron deficiency anemia) (Chronic) Lumbar spinal stenosis (Chronic) Morbid obesity (Chronic) Myocardial infarction (Chronic) "per patient, details unknown" Obesity hypoventilation syndrome (Chronic) Paroxysmal a-fib (Chronic) Surgical History History of appendectomy (Chronic) 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) Hx of cholecystectomy (Chronic) S/P cervical spinal fusion (Chronic) S/P wrist surgery (Chronic) Family History Father Trauma Mother Diabetes Cerebral aneurysm Daughter Bipolar 1 disorder Social History Preferred Language: Andorran Communication Ability: Effective [employer] Required: No Beliefs That Will Affect Care: None marital status: Current Living Situation: Family Current Living Situation Comment: Lives with daughter Feels Safe at Home: Yes Safety Concerns: Feels Safe At This Time Smoking Status: Never smoker Tobacco Type: cigarettes ; Cigarettes Per Day: 2 packs ; Second Hand Exposure: No ; Hx Alcohol Use: No Hx Substance Use: No Physical Exam Constitutional: WD/WN, vitals as above Neck: trachea midline Respiratory: normal respiratory effort Cardiovascular: Extremities: normal capillary refill and + edema Musculoskeletal: Right lower extremity: There is some edema in the extremity. She has this bilaterally. She has some mild tenderness the posterior aspect of the calf and laterally. No erythema is appreciated. No fluctuance. Light touch sensation and motor function is intact. Compartments are soft. Results & Data ([facility]) Vital Signs (Past 12 Hours) Vital Signs Temp Pulse Pulse Resp BP BP Pulse Ox 08/10/19 12:25 97 08/10/19 10:08 69 24 129/57 L 97 08/10/19 10:00 71 28 H 96 08/10/19 09:00 71 18 96 08/10/19 08:14 36.4 C L 79 28 H 146/66 H 97 08/10/19 07:13 69 20 170/64 H 98 08/10/19 05:14 73 13 188/88 H 98 08/10/19 04:13 71 19 177/80 H 100 08/10/19 04:07 36.7 C 70 20 177/80 H 100 08/10/19 03:11 75 18 151/59 H 100
[2019-08-10] MEDS ORDERED: OXYCODONE HCL IR 5 MG TAB (IMMEDIATE RELEASE) PO PRN ×2 (14:57→17:13)
[2019-08-10] MEDS ORDERED: HYDROmorphone INJ 0.5 MG/0.5 ML SYR IV ONE (17:11)
--- NOTE | 2019-08-10 17:22 | Electrocardiogram Report ---
Test Reason : Blood Pressure : / mmHG Vent. Rate : 075 BPM Atrial Rate : 075 BPM P-R Int : 180 ms QRS Dur : 106 ms QT Int : 398 ms P-R-T Axes : -25 062 061 degrees QTc Int : 444 ms Normal sinus rhythm Incomplete right bundle branch block Borderline ECG When compared with ECG of 28-JUL-2019 00:38, No significant change was found Confirmed by Juan José Garces ([id number]) on 08/10/2019 5:21:49 PM Referred By: REFERRED SELF Confirmed By:Dilshad Garces
--- NOTE | 2019-08-10 17:35 | Hospitalist Progress Note ---
Date of Service August 10, 2019 Assessment & Plan (1) Leg pain, anterior: Bilateral lower extremity pain in feet and anterior lower legs 2/2 swelling. Patient also has a h/o neuropathy on gabapentin. She was recently taken off diuretics after last hospitalization and although she had a PCP follow-up to consider restarting these, she rescheduled it until next week. Cont with gabapentin for now. Restart Bumex per home regimen--no evidence of worsening hypoxia, acute heart failure or COPD exacerbation at this time. TEDs and SCDs recommended as we are also off chemoprophylaxis in the setting of a R lower leg hematoma. This is a bit of a mystery and although the patient reports a fall a few weeks ago, she is a poor historian with poor insight into her symptoms. History is complicated because of this. Will see if these interventions start to improve the leg pain, which is not expected to be zero tomorrow, but improved in general. (2) Acute back pain: Severe right upper back pain that waxes and wanes. No provoking or alleviating factors. Lidocaine is not improving it much. She reports that home tramadol and APAP has not been much help. (3) Chronic diastolic CHF (congestive heart failure): No evidence of acute overload. Will restart Bumex now that she was on prior to last admission as kidney function is somewhat improved now. Monitor BMP. (4) CKD (chronic kidney disease), stage III: improved to baseline. (5) SIMONA (obstructive sleep apnea): CPAP qHS per home regimen. (6) PAF (paroxysmal atrial fibrillation): Sinus rhythm during this hospitalization when on telemetry. Continue Toprol-XL 75 mg p.o. every morning, propafenone 150 mg p.o. every 8. She is followed by [facility] cardiology and has a questionable history of paroxysmal atrial fibrillation based on her medications however there is no available records to substantiate this. Continue home regimen. (7) Morbid obesity: (8) Anemia: has a h/o chronic anemia with slight worsening from baseline. May reflect blood loss with hematoma formation. No other active bleeding is present. Iron levels were adequate two weeks ago. Repeat CBC in am. (9) Chronic respiratory failure with hypoxia and hypercapnia: Continues on baseline oxygen supplementation. (10) MRSA (methicillin resistant staph aureus) culture positive: isolation precautions. (11) DVT prophylaxis: Chemoprophy contraindicated in setting of hematoma and anemia/SCDs and TEDS placed Full Code Dispo-move to med/surg, cont pain control efforts overnight with possible dc to home in am. Tonie Ann DO [facility] Hospitalist Subjective 69 yo F reports that her real issue today is severe pain in her right upper back for the past week and half. She cannot tell me what provokes it or palliates it but it is different from the lower back pain that was present while she was hospitalized. She reports a fall but cannot recall the date or the particulars around the situation. She denies any issues with breathing today and although she was given a dose of Bumex in the ER overnight, she did not urinate much today and doesn't think that helped her much. She reports severe pain in her lower legs from swelling, present since leaving the hospital off of her diuretics. She reports the shortness of breath she experienced was more hyperventilating from the pain and she denies any cough return, fevers chills or other issues. CXR reveals resolution of prior pneumonia. Review of Systems Review of Systems: All systems reviewed & are unremarkable except as noted in Subjective Physical Exam Physical Exam: CONSTITUTIONAL: obese, vitals as above, generally well- appearing EYES: normal conjunctivae, no scleral icterus ENT: MMM RESPIRATORY: clear to auscultation bilaterally, no crackles, minimal expiratory wheezes at the bases bilateral, normal respiratory effort CARDIOVASCULAR: regular rate and rhythm, S1 and 2 heard without murmurs, gallops or rubs, no JVD, no peripheral edema GASTROINTESTINAL: soft, nontender, protuberant, nondistended MUSCULOSKELETAL: strength intact throughout, head is normocephalic and atra umatic. TTP over right upper posterior intercostal area. SKIN: warm and dry NEUROLOGIC: CN 2-12 grossly intact, normal cognition, normal speech PSYCHIATRIC: alert cooperative and oriented to person, place and time Results & Data ([facility]) Vital Signs (Past 12 Hours) Vital Signs Temp Pulse Pulse Resp BP BP Pulse Ox 08/10/19 15:16 36.6 C 71 22 140/54 L 96 08/10/19 12:25 97 08/10/19 10:08 69 24 129/57 L 97 08/10/19 10:00 71 28 H 96 08/10/19 09:00 71 18 96 08/10/19 08:14 36.4 C L 79 28 H 146/66 H 97 08/10/19 07:13 69 20 170/64 H 98 Laboratory Results Short CBC 08/09/19 08/10/19 Range/Units 21:32 04:52 WBC 13.56 H 9.15 (4.8-10.8) K/uL Hgb 8.7 L 7.7 L (12.0-16.0) g/dL Hct 28.5 L 24.9 L (37-47) % Plt Count 236 159 (130-400) K/uL BMP 08/09/19 08/10/19 21:32 04:52 Sodium 140 140 Potassium 4.2 3.7 Chloride 100 101 Carbon Dioxide 38 H 38 H BUN 30 H 29 H Creatinine 1.66 H 1.36 H D Glucose 158 H 101 H Calcium 10.0 9.1 Cardiac Enzymes 08/09/19 Range/Units 21:32 Troponin I < 0.015 (0-0.045) ng/ml Liver Function 08/09/19 Range/Units 21:32 Total Bilirubin 0.3 (0.2-1) mg/dl AST 8 L (15-37) U/L ALT 12 (12-78) U/L Alkaline Phosphatase 75 (45-117) U/L Albumin 2.9 L (3.4-5.0) gm/dl Urine 08/10/19 Range/Units 05:50 Urine Color Yellow Urine Appearance Clear (Clear) Urine pH 5.5 (4.5-7.5) Ur Specific [place] 1.018 (1.000-1.030) Urine Protein Negative (Negative) Urine Glucose (UA) Negative (Negative) Medications Administered Current Inpatient Medications Acetaminophen (Tylenol) 650 mg PO Q4H PRN PRN Reason: Pain or Fever Stop: 09/09/19 04:33 Last Admin: 08/10/19 11:53 Dose: 650 mg Documented by: Acetaminophen (Tylenol) 1,000 mg PO Q8 [facility] Stop: 09/09/19 17:59 Allopurinol (Zyloprim) 300 mg PO QAM [facility] Stop: 09/09/19 08:59 Last Admin: 08/10/19 08:37 Dose: 300 mg Documented by: Atorvastatin Calcium (Lipitor) 20 mg PO QPM [facility] Stop: 09/09/19 20:59 Bumetanide (Bumex) 1 mg PO BID17 [facility] Stop: 09/09/19 17:29 Famotidine (Pepcid) 10 mg PO BID [facility] Stop: 09/09/19 08:59 Last Admin: 08/10/19 08:36 Dose: 10 mg Documented by: Fluticasone/Vilanterol (Breo Ellipta 200/25 Mcg Inh) 1 puffs INH DAILY [facility] Stop: 09/09/19 08:59 Last Admin: 08/10/19 08:34 Dose: 1 puffs Documented by: Gabapentin (Neurontin) 300 mg PO [facility] Stop: 09/09/19 20:59 Heparin Sodium (Porcine) (Heparin Sodium (Porcine)) 5,000 units SQ Q8 [facility] Stop: 09/09/19 05:59 Last Admin: 08/10/19 06:33 Dose: 5,000 units Documented by: Levothyroxine Sodium (Synthroid) 88 mcg PO DAILYBB [facility] Stop: 09/09/19 06:29 Last Admin: 08/10/19 05:53 Dose: 88 mcg Documented by: Lidocaine (Lidoderm 5%) [facility] Stop: 09/09/19 05:29 Last Admin: 08/10/19 05:53 Dose: 1 patch Documented by: Losartan Potassium (Cozaar) [facility] Stop: 09/10/19 08:59 Metoprolol Succinate (Toprol Xl) 75 mg PO QAM [facility] Stop: 09/10/19 08:59 Miscellaneous (Remove Lidoderm Patch) 1 ea N/A [facility] Stop: 09/09/19 17:29 Last Admin: 08/10/19 17:04 Dose: 1 ea Documented by: Multivitamins (Multivitamin Tab) [facility] Stop: 09/09/19 08:59 Last Admin: 08/10/19 08:37 Dose: 1 tab Documented by: Nitroglycerin (Nitrostat) 0.4 mg SL UD PRN PRN Reason: Chest Pain Stop: 09/09/19 04:33 Oxycodone HCl (Roxicodone Immediate Rel) 1 - 2 mg PO Q6H PRN PRN Reason: Pain Stop: 08/24/19 17:12 Propafenone HCl (Rythmol) 150 mg PO Q8H [facility] Stop: 09/09/19 04:33 Last Admin: 08/10/19 12:40 Dose: 150 mg Documented by: Roflumilast (Daliresp) 500 mcg PO DAILY [facility] Stop: 09/09/19 08:59 Last Admin: 08/10/19 08:37 Dose: 500 mcg Documented by: Sertraline HCl (Zoloft) 25 mg PO QAM [facility] Stop: 09/09/19 08:59 Last Admin: 08/10/19 08:37 Dose: 25 mg Documented by: Umeclidinium Burton (Incruse Ellipta) 1 puffs INH DAILY [facility] Stop: 09/09/19 08:59 Last Admin: 08/10/19 08:35 Dose: 1 puffs Documented by: (1) Acute back pain Back pain laterality: midline Back pain location: low back pain Sciatica presence: without sciatica Qualified Code(s): M54.5 - Low back pain
[2019-08-10] MEDS ORDERED: ACETAMINOPHEN 500 MG TAB PO SCH ×2 (17:45→18:00)
[2019-08-10] MEDS: ACETAMINOPHEN 500 MG TAB PO SCH ×2 (18:00→23:29)
[2019-08-10] MEDS: BUMETANIDE 1 MG TAB PO SCH (18:00)
--- NOTE | 2019-08-10 19:17 | CT Scan Report ---
CT SCAN OF THE CHEST WITHOUT IV CONTRAST CLINICAL HISTORY: Thoracic back pain. COMPARISON STUDY: Chest CT dated 06/22/2017. Chest x-ray dated 08/09/2019. TECHNIQUE: CT scan of the thorax was performed from the thoracic inlet to the upper abdomen. Images are reviewed in the axial, sagittal, and coronal planes. IV contrast was not administered for this ex amination as per the referring clinician. A dose lowering technique was utilized adhering to the deon Fransisca. The examination is degraded by streak artifact from the arms which could not be evert vated above the chest. There is also metallic streak artifact from a right shoulder arthroplasty and motion artifact. CT DOSE: 726.10 mGycm FINDINGS: Thyroid: Imaged portions of the thyroid gland are normal in size and attenuation. Low-attenuation thy roid nodules measure up to 13 mm. Thoracic aorta: There is atherosclerotic calcification of the thoracic aorta, which is normal in jyotsna saeed and demonstrates standard 3-vessel arch anatomy. Heart: The heart is enlarged and without pericardial effusion. The coronary arteries are densely calc ified. The main pulmonary arteries are dilated suggesting pulmonary artery hypertension. Lungs and pleural spaces: Evaluation of the lung parenchyma is degraded by motion artifact. Emphysema tous change is noted. The trachea and central airways are clear. There are trace pleural effusions wi th dependent consolidation. Mediastinum: There is no mediastinal lymphadenopathy. Karuna: Not well assessed without IV contrast. Axillae: There is no axillary lymphadenopathy. Upper abdomen: There is a tiny hiatal hernia. Partially visualized upper abdominal viscera is otherwi se grossly unremarkable. Skeletal structures: The skeletal structures are osteopenic. No acute fracture is clearly seen. There is a chronic compression deformity of T6 with evidence of previous vertebroplasty. Chronic compressi on deformities are also seen involving T5, T7, T9, and T11. A right shoulder arthroplasty is in place . Degenerative change is noted in the right shoulder. There are numerous healed right-sided rib fract ures. No lytic or blastic bony lesions are seen. IMPRESSION: 1. Streak and motion compromised examination. 2. Cardiomegaly and emphysema. 3. There are trace pleural effusions with dependent consolidation. This could represent atelectasis v ersus pneumonia. Clinical correlation will be required. 4. Additional findings as above. ACT 112: Negative or not required by law. Electronically signed by: Juan J Keen M.D. 08/10/2019 7:15 PM
[2019-08-10] MEDS ORDERED: GABAPENTIN 600 MG TAB PO SCH (21:00)
[2019-08-10] MEDS ORDERED: ATORVASTATIN 20 MG TAB PO SCH (21:00)
[2019-08-11] MEDS: OXYCODONE HCL IR 5 MG TAB (IMMEDIATE RELEASE) PO PRN ×2 (00:47→12:04)
[2019-08-11] MEDS: PROPAFENONE HCL 150 MG TABLET PO SCH ×2 (04:53→12:05)
[2019-08-11] MEDS: ACETAMINOPHEN 500 MG TAB PO SCH ×2 (05:12→13:21)
[2019-08-11 06:10] LABS: Hematocrit (blood only) 27.2 % (37-47); Hemoglobin 8.3 g/dL (12.0-16.0); Mean Corpuscular Hemoglobin 29.9 pg (25-34); Mean Corpuscular Hgb Conc 30.5 g/dL (32-36); Mean Corpuscular Volume 97.8 fL (80-100); Mean Platelet Volume 8.6 fL (7.4-10.4); Platelet Count 192 K/uL (130-400); RDW Coefficient of Variation 14.9 % (11.5-14.5); RDW Standard Deviation 53.7 fL (36.4-46.3); Red Blood Count 2.78 M/uL (4.2-5.4); White Blood Count 10.19 K/uL (4.8-10.8)
[2019-08-11] MEDS ORDERED: PROMETHAZINE HCL 12.5 MG in SODIUM CHLORIDE 0.9% 50 ML IV PRN (06:34)
[2019-08-11 06:42] LABS: BUN Creatinine Ratio 24.2 (10-20); Calcium 9.8 mg/dl (8.5-10.1); Creatinine Clr Calc Pharmacy 50.5 ml/min; Est GFR (African American) 53.2; Est GFR (Non-African American) 45.9; Potassium 3.9 mmol/L (3.5-5.1)
[2019-08-11] MEDS ORDERED: AMLODIPINE BESYLATE 5 MG TAB PO SCH ×3 (06:45→09:00)
[2019-08-11] MEDS ORDERED: METOPROLOL SUCC 25MG EXT REL TAB PO SCH ×2 (06:45→09:00)
[2019-08-11 06:54] LABS: Estimated Average Glucose 105 mg/dl; Hemoglobin A1C 5.3 % (4.5-5.6)
[2019-08-11] MEDS: LEVOTHYROXINE SODIUM 88 MCG TABLET PO SCH (07:22)
[2019-08-11] MEDS ORDERED: ONDANSETRON INJ 2 MG/ML 2 ML VIAL IV PRN (08:21)
[2019-08-11] MEDS: FLUTICASONE/VILANTEROL 200/25MCG 14 PUFFS/INHALER INH SCH (08:56)
[2019-08-11] MEDS: UMECLIDINIUM BROMIDE 62.5MCG/BLISTER 7 PUFFS/INHALER INH SCH (08:57)
[2019-08-11] MEDS: BUMETANIDE 1 MG TAB PO SCH (08:58)
[2019-08-11] MEDS: SERTRALINE HCL 50 MG TABLET PO SCH (08:58)
[2019-08-11] MEDS: ROFLUMILAST 500 MCG TAB PO SCH (08:58)
[2019-08-11] MEDS: FAMOTIDINE 10 MG TABLET PO SCH (08:58)
[2019-08-11] MEDS: allopurinoL 300 MG TAB PO SCH (08:58)
[2019-08-11] MEDS: LIDOCAINE 5% 1 PATCH TD SCH (08:59)
[2019-08-11] MEDS: MULTIVITAMIN TAB PO SCH (08:59)
[2019-08-11] MEDS ORDERED: LOSARTAN POTASSIUM 25 MG TAB PO SCH (09:00)
--- NOTE | 2019-08-11 15:17 | Hospitalist Progress Note ---
Date of Service August 11, 2019 Assessment & Plan (1) Leg pain, anterior: Bilateral lower extremity pain in feet and anterior lower legs 2/2 swelling. Patient also has a h/o neuropathy on gabapentin. She was recently taken off diuretics after last hospitalization and although she had a PCP follow-up to consider restarting these, she rescheduled it until next week. Cont with gabapentin for now. Restart Bumex per home regimen--no evidence of worsening hypoxia, acute heart failure or COPD exacerbation at this time. TEDs and SCDs recommended as we are also off chemoprophylaxis in the setting of a R lower leg hematoma. This is a bit of a mystery and although the patient reports a fall a few weeks ago, she is a poor historian with poor insight into her symptoms. History is complicated because of this. Will see if these interventions start to improve the leg pain, which is not expected to be zero tomorrow, but improved in general. (2) Acute back pain: Severe right upper back pain that waxes and wanes. No provoking or alleviating factors. Lidocaine is not improving it much. She reports that home tramadol and APAP has not been much help. (3) Chronic diastolic CHF (congestive heart failure): No evidence of acute overload. Will restart Bumex now that she was on prior to last admission as kidney function is somewhat improved now. Monitor BMP. (4) CKD (chronic kidney disease), stage III: improved to baseline. (5) SIMONA (obstructive sleep apnea): CPAP qHS per home regimen. (6) PAF (paroxysmal atrial fibrillation): Sinus rhythm during this hospitalization when on telemetry. Continue Toprol-XL 75 mg p.o. every morning, propafenone 150 mg p.o. every 8. She is followed by [facility] cardiology and has a questionable history of paroxysmal atrial fibrillation based on her medications however there is no available records to substantiate this. Continue home regimen. (7) Morbid obesity: (8) Anemia: has a h/o chronic anemia with slight worsening from baseline. May reflect blood loss with hematoma formation. No other active bleeding is present. Iron levels were adequate two weeks ago. Repeat CBC in am. (9) Chronic respiratory failure with hypoxia and hypercapnia: Continues on baseline oxygen supplementation. (10) MRSA (methicillin resistant staph aureus) culture positive: isolation precautions. (11) DVT prophylaxis: Chemoprophy contraindicated in setting of hematoma and anemia/SCDs and TEDS placed Full Code Dispo-move to med/surg, cont pain control efforts overnight with possible dc to home in am. Tonie Ann DO [facility] Hospitalist Subjective Doing well, tolerating PO. Back and leg pain are improved todya. Review of Systems Review of Systems: All systems reviewed & are unremarkable except as noted in Subjective Results & Data ([facility]) Vital Signs (Past 12 Hours) Vital Signs Temp Pulse Resp BP Pulse Ox 08/11/19 12:04 36.6 C 74 16 157/86 H 96 08/11/19 07:25 36.6 C 74 16 179/83 H 96 08/11/19 06:40 72 148/74 H 96 08/11/19 04:52 77 20 185/76 H 97 Laboratory Results Short CBC 08/11/19 Range/Units 05:53 WBC 10.19 (4.8-10.8) K/uL Hgb 8.3 L (12.0-16.0) g/dL Hct 27.2 L (37-47) % Plt Count 192 (130-400) K/uL BMP 08/11/19 05:53 Sodium 138 Potassium 3.9 Chloride 100 Carbon Dioxide 35 H BUN 29 H Creatinine 1.19 Glucose 102 H Calcium 9.8 Medications Administered Current Inpatient Medications Acetaminophen (Tylenol) 1,000 mg PO Q8 [facility] Stop: 09/09/19 17:59 Last Admin: 08/11/19 13:21 Dose: 1,000 mg Documented by: Allopurinol (Zyloprim) 300 mg PO QAM [facility] Stop: 09/09/19 08:59 Last Admin: 08/11/19 08:58 Dose: 300 mg Documented by: Amlodipine Besylate (Norvasc) 5 mg PO QAM [facility] Stop: 09/10/19 06:44 Last Admin: 08/11/19 07:22 Dose: 5 mg Documented by: Atorvastatin Calcium (Lipitor) 20 mg PO QPM [facility] Stop: 09/09/19 20:59 Last Admin: 08/10/19 20:00 Dose: 20 mg Documented by: Bumetanide (Bumex) 1 mg PO BID17 [facility] Stop: 09/09/19 17:29 Last Admin: 08/11/19 08:58 Dose: 1 mg Documented by: Famotidine (Pepcid) 10 mg PO BID [facility] Stop: 09/09/19 08:59 Last Admin: 08/11/19 08:58 Dose: 10 mg Documented by: Fluticasone/Vilanterol (Breo Ellipta 200/25 Mcg Inh) 1 puffs INH DAILY [facility] Stop: 09/09/19 08:59 Last Admin: 08/11/19 08:56 Dose: 1 puffs Documented by: Gabapentin (Neurontin) 300 mg PO [facility] Stop: 09/09/19 20:59 Last Admin: 08/10/19 20:00 Dose: 300 mg Documented by: Promethazine HCl 12.5 mg/ (Sodium Chloride) 50.5 mls @ 202 mls/hr IV Q6H PRN PRN Reason: Nausea And Vomiting Stop: 09/10/19 06:33 Last Infusion: 08/11/19 07:24 Dose: Infused Documented by: Levothyroxine Sodium (Synthroid) 88 mcg PO DAILYBB [facility] Stop: 09/09/19 06:29 Last Admin: 08/11/19 07:22 Dose: 88 mcg Documented by: Lidocaine (Lidoderm 5%) 1 patch TD [facility] Stop: 09/09/19 05:29 Last Admin: 08/11/19 08:59 Dose: Not Given Documented by: Metoprolol Succinate (Toprol Xl) 75 mg PO [facility] Stop: 09/10/19 06:44 Last Admin: 08/11/19 07:22 Dose: 75 mg Documented by: Miscellaneous (Remove Lidoderm Patch) 1 ea N/A [facility] Stop: 09/09/19 17:29 Last Admin: 08/10/19 17:04 Dose: 1 ea Documented by: Multivitamins (Multivitamin Tab) 1 tab PO [facility] Stop: 09/09/19 08:59 Last Admin: 08/11/19 08:59 Dose: Not Given Documented by: Nitroglycerin (Nitrostat) 0.4 mg SL UD PRN PRN Reason: Chest Pain Stop: 09/09/19 04:33 Ondansetron HCl (Zofran) 4 mg IV Q8H PRN PRN Reason: nausea Stop: 09/10/19 08:29 Last Admin: 08/11/19 08:55 Dose: 4 mg Documented by: Oxycodone HCl (Roxicodone Immediate Rel) 5 - 10 mg PO Q6H PRN PRN Reason: Pain Stop: 08/24/19 23:51 Last Admin: 08/11/19 12:04 Dose: 10 mg Documented by: Propafenone HCl (Rythmol) 150 mg PO Q8H [facility] Stop: 09/09/19 04:33 Last Admin: 08/11/19 12:05 Dose: 150 mg Documented by: Roflumilast (Daliresp) 500 mcg PO DAILY [facility] Stop: 09/09/19 08:59 Last Admin: 08/11/19 08:58 Dose: 500 mcg Documented by: Sertraline HCl (Zoloft) 25 mg PO QAM [facility] Stop: 09/09/19 08:59 Last Admin: 08/11/19 08:58 Dose: 25 mg Documented by: Umeclidinium [place] (Incruse Ellipta) 1 puffs INH DAILY [facility] Stop: 09/09/19 08:59 Last Admin: 08/11/19 08:57 Dose: 1 puffs Documented by: (1) Acute back pain Back pain laterality: midline Back pain location: low back pain Sciatica presence: without sciatica Qualified Code(s): M54.5 - Low back pain
[2019-08-11] MEDS ORDERED: IBUPROFEN 600 MG TAB PO STA (16:11)
--- NOTE | 2019-08-11 16:30 | Discharge Summary ---
Date of Service August 11, 2019 Admission HPI Per Admitting Provider History obtained from patient and records. Medical history significant for chronic hypoxemic respiratory failure secondary to COPD on home O2, pulmonary hypertension, OHS on CPAP, paroxysmal atrial fibrillation not on anticoagulation secondary to GI bleed (11/2018), hypertension, chronic diastolic heart failure, EF of 60-65%, TTE 2019, past tobacco abuse, chronic renal insufficiency, baseline creatinine 1.2-1.5, chronic anemia (baseline hemoglobin of 8-9). Recent confinement recent confinement 2 weeks ago for COPD exacerbation, aspiration pneumonia. Patient discharged on Levaquin course. Home diuretics (Bumex and metolazone) held on discharge due to serum creatinine noted to be 1.5 as per discharge note. Somewhat short of breath, increasing weakness the last few days. Legs more swollen than usual. Cough actually better. No chest pain. Usual low back pain without unusual incontinence symptoms. No fever, no chills. Patient brought to the ER. Received Lasix for possible CHF. Medical History as above Surgical History : Appendectomy, cholecystectomy, wrist surgery, shoulder surgery, hip replacement, neck surgery Family History : Diabetes, heart disease Personal/Social history : Past tobacco abuse, no EtOH intake, retired from [email or web address] work Admission Exam Per Admitting Provider GENERAL: Anxious, obese, no respiratory distress SKIN: Pallor , warm HEENT: pale palpebral conjunctivae, no ptosis, dry buccal mucosa, nasal cannula in place NECK : Supple, short neck, no tenderness CHEST : Decreased breath sounds , no tenderness HEART : RRR, no obvious murmurs ABDOMEN: distention, nontender EXTREMITIES : Bilateral LE swelling, minimal LE tenderness, no other conspicuous deformities noted NEUROLOGIC : Coherent, no facial asymmetry, slightly hard of hearing, gait and stance not assessed Principal Diagnosis Dyspnea-resolved Leg pain Acute musculoskeletal back pain Discharge Data Allergies Allergy/AdvReac Type Severity Reaction Status Date / Time adhesive Allergy Severe RED RASH Verified 08/16/19 10:17 latex AdvReac Mild TAPE-SORE Verified 08/16/19 10:17 morphine AdvReac Mild DELUSIONS Verified 08/16/19 10:17 Consultations 08/10/19 00:26 ED Decision to Admit Stat 08/10/19 04:34 Consult Case Management - Discharge Planning Routine 08/10/19 10:47 Consult Orthopedic Surgery Routine Ordered Studies 08/10/19 01:18 US venous doppler LE BI Urgent 08/10/19 17:19 CT chest wo con Urgent Hospital Course (1) Leg pain: Bilateral leg pain 2/2 swelling as she has been off her Bumex since prior discharge. Although she had a PCP follow-up to consider restarting this, she cancelled that appointment. Restarted on Bumex with some improvement in the morning. TEDs use was encouraged. Although she was incidentally found to have a 5cm fluid collection consistent with a hematoma in her right calf, she had no reported pain in this area. Orthopedics saw her while here and recommended no further surgical intervention at this time. (2) Back pain: Excessive coughing from recent pneumonia, now resolved. Back pain was improved with supportive care efforts only. (3) Chronic diastolic CHF (congestive heart failure): Pt reported SOB initially, however, No evidence of acute overload. Reported "SOB 2/2 hyperventilation from pain in her legs and her back." Will restart Bumex now that she was on prior to last admission as kidney function is somewhat improved now. Monitor BMP. (4) SIMONA (obstructive sleep apnea): CPAP qHS per home regimen. (5) PAF (paroxysmal atrial fibrillation): Sinus rhythm during this hospitalization when on telemetry. Continue Toprol-XL 75 mg p.o. every morning, propafenone 150 mg p.o. every 8. She is followed by [facility] cardiology and has a questionable history of paroxysmal atrial fibrillation based on her medications however there is no available rec ords to substantiate this. Continue home regimen. (6) Morbid obesity: (7) MRSA (methicillin resistant staph aureus) culture positive: isolation precautions. Total Time Total Time Spent Total Time Spent (In Minutes): 60 Total Time Includes: Examination of the Patient, Discharge Planning, Medication Reconciliation and Communication With Other Providers Discharge Plan Discharge Items Patient Disposition: Home - Self-Care Reason For Visit: SOB Discharge Diagnosis: Dyspnea-resolved Leg pain Acute musculoskeletal back pain Activity: Resume your previous activity Non-emergency contact: Primary Care Provider Call non-emergency contact if: you have any medication questions, your symptoms worsen, your pain is not controlled, your pain is worsening, your pain is unusual for you, your pain is concerning for you and you have a fever Follow-up/Referrals: Babak Melendez MD [Primary Care Provider] - Diet: Low Sodium (2gm) Addtl Attending Provider Instructions: Please take all medications as instructed on discharge list below. You are being given some Motrin to take as needed for severe back pain. It is recommended you take it only if you feel you need it. As we restarted your Bumex and are on other medications that may affect your kidney function, it is recommended that you have nonfasting bloodwork (basic metabolic panel) within the next week which may be ordered by your primary care provider. It is recommended you follow-up with your primary care provider within one week of discharge to ensure you are still doing well after going home. 08/14/2019 2:40 PM Leticia Singh PA-C [facility] It was a pleasure taking care of you! Please call if you have any questions or problems. You can reach a [facility] hospitalist on duty at [facility] 24 hours a day by calling [phone]. Take care of yourself. Tonie Ann, [facility] Hospitalist Pending Studies at Discharge: No Stand-Alone Forms: My [facility], Smoking Cessation Medications and DC Order Prescriptions: New bumetanide 1 mg Tablet 1 mg PO BID17 Qty: 60 RF: 1 amlodipine [Norvasc] 5 mg Tablet 5 mg PO QAM Qty: 30 RF: 1 ibuprofen 600 mg tablet 600 mg PO TID PRN (Reason: pain) Qty: 30 RF: 0 Continued Breo Ellipta 200-25 mcg/dose Blister With Device 1 inh INHALATION DAILY RF: 0 multivitamin Tablet 1 tab PO QAM RF: 0 propafenone 150 mg Tablet 150 mg PO Q8H RF: 0 gabapentin 600 mg Tablet 300 mg PO HS RF: 0 atorvastatin 20 mg Tablet 20 mg PO QPM RF: 0 metoprolol succinate 50 mg Tablet Extended Release 24 Hr 50 mg PO QAM RF: 0 levothyroxine 88 mcg Tablet 88 mcg PO DAILYBB RF: 0 ranitidine HCl 150 mg Tablet 150 mg PO BID RF: 0 sertraline [Zoloft] 25 mg Tablet 25 mg PO QAM RF: 0 allopurinol 300 mg Tablet 300 mg PO QAM RF: 0 cholecalciferol (vitamin D3) [Vitamin D3] 2,000 unit Tablet 2,000 unit PO QAM RF: 0 Daliresp 500 mcg Tablet 500 mcg PO DAILY RF: 0 albuterol sulfate 2.5 mg /3 mL (0.083 %) Solution For Nebulization 2.5 mg INHALATION Q6 PRN (Reason: Shortness Of Breath Or Wheezing) RF: 0 Spiriva with HandiHaler 18 mcg capsule, w/inhalation device 1 cap INH DAILY Qty: 30 RF: 3 Discontinued levofloxacin 750 mg Tablet 750 mg PO Q48H Qty: 2 RF: 0 Discharge Orders: Discharge Order (Routine); Ordered 08/11/19 Ordered By: Tonie Ann Admission Data Admit Date/Time: 08/10/19 01:53 Attending Provider: Tonie Ann Admit Provider: Spencer Lowery Primary Care Provider: Babak Melendez Other Providers: Spencer Lowery ; Ming Castanon Other Interventions: Discharge Summary Assessment (RN) Last Done: 08/11/19 17:29 DC Date/Time DO NOT enter until pt leaves facility: 08/11/19 19:15
[2019-08-11] MEDS ORDERED: IBUPROFEN 600 MG TAB PO ONE (19:10)
== END 2019-08-11 19:15 | disposition home or self-care (01) ==
LOC: 1E 21:26 → ED 21:26 → 1E 08-10 03:30 → 2E 08-10 11:22 → 4W 08-10 17:22

== ENCOUNTER 2019-08-16 08:49 | Inpatient (IN) ==
[2019-08-16] MEDS ORDERED: ACETAMINOPHEN 1,000 MG/100 ML VIAL IV STA (09:33)
--- NOTE | 2019-08-16 09:57 | XRay Report ---
XR chest 1V portable HISTORY: Atypical Chest Pain COMPARISON: Chest 08/09/2019. FINDINGS: No pneumothorax. Trace left pleural effusion. The heart is mildly enlarged. There is a righ t shoulder prosthesis. Mild interstitial vascular thickening which has progressed. This likely repres ents mild interstitial pulmonary edema. No new focal lung consolidations to suggest pneumonia. IMPRESSION: 1. Interval progression of the mild interstitial pulmonary edema and a trace left pleural effusion. 2. Stable cardiomegaly. ACT 112: Negative or not required by law. Electronically signed by: Henry Bourne M.D. 08/16/2019 9:55 AM
[2019-08-16 10:08] LABS: Basophils # (auto) 0.03 K/uL (0-0.2); Basophils % (auto) 0.3 %; Eosinophils # (auto) 0.29 K/uL (0-0.5); Eosinophils % (auto) 3.3 %; Hematocrit (blood only) 24.5 % (37-47); Hemoglobin 7.6 g/dL (12.0-16.0); Immature Granulocytes # (auto) 0.02 K/uL (0.00-0.02); Immature Granulocytes % (auto) 0.2 %; Lymphocytes # (auto) 1.79 K/uL (1.2-3.4); Lymphocytes % (auto) 20.7 %; Mean Corpuscular Hemoglobin 30.4 pg (25-34); Mean Platelet Volume 8.3 fL (7.4-10.4); Monocytes # (auto) 0.61 K/uL (0.11-0.59); Neutrophils # (auto) 5.92 K/uL (1.4-6.5); Neutrophils % (auto) 68.5 %; Platelet Count 167 K/uL (130-400); RDW Coefficient of Variation 14.4 % (11.5-14.5); RDW Standard Deviation 51.6 fL (36.4-46.3); White Blood Count 8.66 K/uL (4.8-10.8)
[2019-08-16 10:24] LABS: Partial Thromboplastin Ratio 0.8; Partial Thromboplastin Time 22.6 Seconds (21.0-31.0); Prothrombin Time 10.5 Seconds (9.0-12.0)
[2019-08-16] MEDS ORDERED: DEXAMETHASONE **PF** INJ 10 MG/ML VIAL IV ONE (10:24)
[2019-08-16] MEDS ORDERED: ALBUT/IPRATROP 3MG/0.5MG NEB 3 ML VIAL NEB STA (10:24)
[2019-08-16 10:28] LABS: Alanine Aminotransferase 10 U/L (12-78); Albumin Level 2.6 gm/dl (3.4-5.0); Aspartate Aminotransferase 6 U/L (15-37); BUN Creatinine Ratio 27.3 (10-20); Blood Urea Nitrogen 29 mg/dl (7-18); Calcium 9.4 mg/dl (8.5-10.1); Carbon Dioxide 36 mmol/L (21-32); Chloride 102 mmol/L (98-107); Creatinine Clr Calc Pharmacy 55.7 ml/min; Est GFR (African American) 61.2; Est GFR (Non-African American) 52.8; Glucose 103 mg/dl (70-99); Lipase 95 U/L (73-393); Magnesium 1.9 mg/dl (1.8-2.4); Sodium 139 mmol/L (136-145)
[2019-08-16 10:33] LABS: Albumin Globulin Ratio 0.7 (0.9-2); Alkaline Phosphatase 79 U/L (45-117); Bilirubin,Total 0.2 mg/dl (0.2-1); Total Protein 6.6 gm/dl (6.4-8.2); Troponin I < 0.015 ng/ml (0-0.045)
[2019-08-16 10:45] LABS: Basophilic Stippling 1+
[2019-08-16] MEDS ORDERED: OPTIRAY 320 125ml IV PRN (10:52)
--- NOTE | 2019-08-16 11:15 | CT Scan Report ---
CT angio chest PE protocol CT DOSE: 1571.30 mGycm HISTORY: 69 years-old Female with PE. Acute chest and back pain TECHNIQUE: Multiple CTA images of the chest were obtained after the intravenous administration of 120 ml Optiray 320. Coronal and sagittal MIPS were obtained from the axial data set and were submitted for review. All measurements were obtained according to NASCET criteria. A dose lowering technique w as utilized adhering to the principles of ALARA. COMPARISON: Chest radiograph of same day, chest CT 08/10/2019 FINDINGS: CTA: Moderate cardiomegaly. No pericardial effusion. Streak artifact from upper extremity positioning. Ext ensive coronary artery calcifications. No thoracic aortic aneurysm or dissection. Patency of the imag ed great vessels. Extensive mixed plaque of the thoracic aorta. Pulmonary artery is opacified to leve l of the distal segmental branches. The subsegmental branches are not well evaluated secondary to beto us timing and respiratory motion. No filling defects identified to suggest pulmonary thromboembolic d isease. CT CHEST: 1.3 cm hypodense right thyroid nodule redemonstrated. Mildly enlarged paratracheal lymph nodes measur e up to 10 mm. Prominent and mildly enlarged subcarinal and right hilar lymph nodes are unchanged. No pneumothorax or large pleural effusion. Trace pleural effusions are suggested. Intralobular septal t hickening with intermixed groundglass densities. Dependent bibasilar consolidation. Mild emphysema wi th areas of subpleural reticulation suggestive of fibrosis. There are no suspicious pulmonary nodules or masses identified. Central airways appear patent. Mild bronchial wall thickening of the lung base s. No acute processes of the imaged upper abdomen. Soft tissues are unremarkable. Degenerative changes o f the spine and left shoulder. Right shoulder arthroplasty. Multiple remote compression deformities o f the thoracic spine. No acute fracture identified. Kyphoplasty changes at the T6 level. Healing suba cute appearing nondisplaced fracture of the posterior right 10th rib is suggested. IMPRESSION: 1. Cardiomegaly with mild pulmonary edema. 2. Dependent bibasilar consolidation suggests atelectasis. 3. No evidence of pulmonary thromboembolic disease. 4. Emphysema. ACT 112: Negative or not required by law. The above report was generated using voice recognition software. It may contain grammatical, syntax o r spelling errors. Electronically signed by: Ariel Shah M.D. 08/16/2019 11:13 AM
--- NOTE | 2019-08-16 11:27 | CT Scan Report ---
ABDOMEN AND PELVIS CT WITH IV CONTRAST CT DOSE: HISTORY: Right flank/abd pain TECHNIQUE: Multiaxial CT images of the abdomen and pelvis were performed following the use of intrave nous contrast. A dose lowering technique was utilized adhering to the principles of ALARA. COMPARISON STUDY: Abdomen and pelvis CT 09/27/2017. FINDINGS: Please refer to the dedicated chest CT performed same day for further evaluation of the dom g bases. Suboptimal evaluation of the abdomen and pelvis due to streak artifact from the patient's ov erlapping arms and the patient's right total hip arthroplasty. No pneumoperitoneum. No pneumatosis. N o suspicious lytic are blastic osseous lesions. 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 No hepatic or splenic masses. The left adrenal gland and pancreas are unremarkable. No hydronephros is. Bilateral renal hypodense lesions remain stable. A 1 cm enhancing lesion within the left kidney o n image 182. This is concerning for a renal mass. No retroperitoneal lymphadenopathy. Calcified plaqu e within the normal caliber abdominal aorta. Bladder is not well visualized due to metallic artifact and is decompressed. The uterus and bilateral adnexa are also partially obscured but appear grossly i ntact. The sigmoid colon is also obscured by the metallic artifact. There are few scattered colonic d iverticula. Question of minimal inflammatory change and a few prominent lymph nodes adjacent to the s igmoid colon. A developing acute diverticulitis cannot be excluded. However, this is difficult to ass ess due to the metallic artifact. No bowel obstruction. The appendix is not identified and reportedly surgically absent. Stable right adrenal gland nodule. This is likely benign. IMPRESSION: 1. Question of minimal inflammatory change and a few prominent lymph nodes adjacent to the sigmoid c olon. A developing acute diverticulitis cannot be excluded. However, this is difficult to assess due to the metallic artifact. 2. There appears to be a 1 cm enhancing lesion within the left kidney. This is concerning for renal m ass. Follow-up nonemergent dedicated renal MRI can be used for further evaluation. 3. Please refer to the same day chest CTA for further evaluation of the lung bases. ACT 112: Negative or not required by law. Electronically signed by: Henry Bourne M.D. 08/16/2019 11:26 AM
[2019-08-16] MEDS ORDERED: metroNIDAZOLE 500 MG/100 ML BAG IV STA (12:30)
--- NOTE | 2019-08-16 13:44 | History & Physical Report ---
Date of Service August 16, 2019 Assessment & Plan (1) Right-sided back pain: This is a 69-year-old female with a PMH of COPD with chronic respiratory failure with hypoxia on 4 L NC O2, chronic diastolic heart failure, paroxysmal atrial fibrillation, iron deficiency anemia, CKD III/IV, spinal stenosis of lumbar region and other medical problems listed below who presents with worsening back pain for the past 5 days. -Worsening frequency and severity of right sided mid back pain x5 days -Evidence of degenerative changes to spine and subacute healing of fractured posterior right 10th rib on chest CTA -Considered pleuritic source of pain but no evidence of PE or pneumonia on chest CTA -Obtaining thoracic/lumbar spinal MRI for better visualization -Continue Tylenol and ibuprofen. Added tramadol as needed -PT/OT evaluation (2) Heart failure, diastolic, with acute decompensation: Bibasilar crackles and worsening bilateral lower extremity edema on exam -Was resumed on Bumex during previous admission and has been taking 1 mg twice daily -Chest CTA with cardiomegaly with mild pulmonary edema -Given 40mg IV Lasix x 1. Strict intake and output, daily weights, low-sodium diet -Reassess volume status tomorrow for continuation of IV diuretics versus resuming home regimen (3) Abnormal abdominal CT scan: Question of minimal inflammatory change and a few prominent lymph nodes adjacent to the sigmoid colon with concern for developing acute diverticulitis -Patient has no correlating pain, is afebrile and has no leukocytosis -No indication for abx unless becomes febrile, develops symptoms -Monitor (4) PAF (paroxysmal atrial fibrillation): Stable. Continue home dose toprol and propafenone 150 -Monitor on telemetry (5) EVONNE (iron deficiency anemia): History of chronic anemia with slight worsening from baseline with hgb of 7.6 (baseline low-mid 8s) -No other active bleeding is present -Iron levels were adequate a few weeks weeks ago -Daily CBC (6) CKD (chronic kidney disease), stage III: At baseline. Continue to monitor (7) HTN (hypertension): Continue home amlodipine, toprol (8) COPD (chronic obstructive pulmonary disease): (9) Chronic respiratory failure with hypoxia: Compensated. Continue home Breo Ellipta, Daliresp, spiriva, albuterol neb PRN -At respiratory baseline on 4L NC O2 (10) MRSA (methicillin resistant staph aureus) culture positive: Isolation precautions (11) Seborrheic dermatitis: Facial, near eyebrows. Lotrimin cream BID (12) SIMONA (obstructive sleep apnea): CPAP HS DVT Ppx: SCDs in setting of severe anemia Code status: FULL PCP: Nora Dispo: Observation med tele. Discharge planning, PT and OT consulted. Need to explore possibility of placement due to multiple recent admissions Patient seen in collaboration with Dr. Mares. Please see addendum. History of Present Illness Chief Complaint: Right-sided back pain Primary Care Provider: Babak Melendez MD This is a 69-year-old female with a PMH of COPD with chronic respiratory failure with hypoxia on 4 L NC O2, chronic diastolic heart failure, paroxysmal atrial fibrillation, iron deficiency anemia, CKD III/IV, spinal stenosis of lumbar region and other medical problems listed below who presents with worsening back pain for the past 5 days. This is patient's fourth admission since April and was here most recently from 08/10- for leg pain and possible mild CHF exacerbation. Was noted to have right lower leg hematoma and some increased edema due to recently being taken off diuretics. Bumex was restarted prior to discharge. Was also noted to have right upper back pain that waxed and waned with limited improvement on lidocaine patch. Since discharge home, patient states that back pain has worsened in severity and frequency. Pain is in right mid back and is made worse when lying down flat with radiation down posterior side of both legs. Is able to ambulate with walker at baseline. Denies any bowel or bladder incontinence or numbness of saddle region. Endorses new bladder fullness and intermittent difficulty with voiding but denies any dysuria or hematuria. Has been taking Bumex as scheduled but states she is has increased lower extremity edema since discharge. Denies any fever or chills. No lightheadedness, headache, visual changes or cough. Respiratory status is at baseline on 4 L nasal cannula O2. Denies any chest pain, palpitations, arnaldo rtness of breath, nausea, vomiting, abdominal pain, diarrhea or constipation. Lives with daughter, who manages patient's home medications. Allergies Allergy/AdvReac Type Severity Reaction Status Date / Time adhesive Allergy Severe RED RASH Verified 08/16/19 10:17 latex AdvReac Mild TAPE-SORE Verified 08/16/19 10:17 morphine AdvReac Mild DELUSIONS Verified 08/16/19 10:17 Home Medications Home Medications Medication Instructions Recorded Confirmed Type Breo Ellipta 1 inh INHALATION DAILY 03/12/18 08/16/19 History Daliresp 500 mcg PO DAILY 03/12/18 08/16/19 History allopurinol 300 mg PO QAM 03/12/18 08/16/19 History atorvastatin 20 mg PO QPM 03/12/18 08/16/19 History cholecalciferol (vitamin D3) 2,000 unit PO QAM 03/12/18 08/16/19 History [Vitamin D3] gabapentin 300 mg PO HS 03/12/18 08/16/19 History levothyroxine 88 mcg PO DAILYBB 03/12/18 08/16/19 History metoprolol succinate 50 mg PO QAM 03/12/18 08/16/19 History multivitamin 1 tab PO QAM 03/12/18 08/16/19 History propafenone 150 mg PO Q8H 03/12/18 08/16/19 History ranitidine HCl 150 mg PO BID 03/12/18 08/16/19 History sertraline [Zoloft] 25 mg PO QAM 03/12/18 08/16/19 History albuterol sulfate 2.5 mg INHALATION Q6 PRN 08/07/18 08/16/19 History Spiriva with HandiHaler 1 cap INH DAILY #30 puffs 08/03/19 08/16/19 Rx amlodipine [Norvasc] 5 mg PO QAM #30 tab 08/11/19 08/16/19 Rx bumetanide 1 mg PO BID17 #60 tab 08/11/19 08/16/19 Rx ibuprofen 600 mg PO TID PRN #30 tab 08/11/19 08/16/19 Rx Past Med/Surg History Medical History (Updated 08/16/19 @ 15:01 by Sarina London) Asthma (Chronic) Chronic respiratory failure with hypoxia CKD (chronic kidney disease), stage III COPD (chronic obstructive pulmonary disease) (Chronic) Depression (Chronic) Dyslipidemia (Chronic) GERD (gastroesophageal reflux disease) (Chronic) EVONNE (iron deficiency anemia) (Chronic) Lumbar spinal stenosis (Chronic) Morbid obesity (Chronic) Obesity hypoventilation syndrome (Chronic) Surgical History History of appendectomy (Chronic) 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) Hx of cholecystectomy (Chronic) S/P cervical spinal fusion (Chronic) S/P wrist surgery (Chronic) Family History Father Trauma Mother Diabetes Cerebral aneurysm Daughter Bipolar 1 disorder Social History Preferred Language: Icelandic Communication Ability: Effective Pilot Teacher 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: No Beliefs That Will Affect Care: None marital status: Current Living Situation: Family Current Living Situation Comment: lives with daughter Other Information That Helps Us Care for You: No Feels Safe at Home: Yes Safety Concerns: Feels Safe At This Time Smoking Status: Former smoker Tobacco Type: cigarettes ; Cigarettes Per Day: 2 packs ; Do You Dip or Chew Tobacco: No ; Second Hand Exposure: No ; Tobacco David sation Education Requested by Patient: No Hx Alcohol Use: No Hx Substance Use: No Review of Systems Review of Systems: At least ten systems reviewed and negative except as noted in the HPI. Physical Exam Physical Exam: General Appearance: WD/WN, vitals as above, NAD, lying in bed, pleasant, conversing easily Head: normocephalic, atraumatic Eyes: normal inspection, PERRL, conjunctivae normal, anicteric sclerae ENT: external ear and nose normal, oropharynx normal Neck: trachea midline, no thyromegaly normal visual inspection Respiratory: normal respiratory effort, bibasilar rales, no wheezes or rhonchi. Normal insp/exp effort, no accessory muscle use on baseline 4L NC O2 Cardiovascular: regular rate, rhythm, no murmur, normal peripheral pulses, 2+ BLE edema. Vessels: + JVD Chest: normal inspection of chest Abdomen/GI: normal bowel sounds, soft, nontender, no hepatosplenomegaly Extremities/Musculoskelatal: Back with TTP of R-mid back. No tenderness of vertebral processes or deformities note. No cyanosis or clubbing, extremities motor strength 5/5 Neurologic: PERRL, EOMI, accommodation nl, no face palsy, no dysarthria, CN's II-XI intact bilaterally and moves all extremities Psychiatric: A+Ox3, euthymic affect Skin: erythematous skin with overlying yellow crusting around eyebrows, normal color, warm/dry Results & Data Vital Signs (Past 12 Hours) Vital Signs Temp Pulse Pulse Resp BP BP Pulse Ox 08/16/19 11:01 78 18 96 08/16/19 10:37 77 20 150/67 H 99 08/16/19 10:35 85 18 94 08/16/19 10:01 78 19 139/61 100 08/16/19 10:00 77 20 99 08/16/19 09:41 76 22 100 08/16/19 09:30 77 18 146/61 H 100 08/16/19 09:04 75 22 146/60 H 99 08/16/19 09:02 72 19 100 08/16/19 09:00 72 21 148/58 H 100 08/16/19 08:58 36.8 C 75 22 146/60 H 99 Laboratory Results Short CBC 08/16/19 Range/Units 09:52 WBC 8.66 (4.8-10.8) K/uL Hgb 7.6 L (12.0-16.0) g/dL Hct 24.5 L (37-47) % Plt Count 167 (130-400) K/uL BMP 08/16/19 09:52 Sodium 139 Potassium 4.0 Chloride 102 Carbon Dioxide 36 H BUN 29 H Creatinine 1.06 Glucose 103 H Calcium 9.4 Cardiac Enzymes 08/16/19 Range/Units 09:52 Troponin I < 0.015 (0-0.045) ng/ml Liver Function 08/16/19 Range/Units 09:52 Total Bilirubin 0.2 (0.2-1) mg/dl AST 6 L (15-37) U/L ALT 10 L (12-78) U/L Alkaline Phosphatase 79 (45-117) U/L Albumin 2.6 L (3.4-5.0) gm/dl Diagnostic Findings CXR: IMPRESSION: 1. Interval progression of the mild interstitial pulmonary edema and a trace left pleural effusion. 2. Stable cardiomegaly. Chest CTA: IMPRESSION: 1. Cardiomegaly with mild pulmonary edema. 2. Dependent bibasilar consolidation suggests atelectasis. 3. No evidence of pulmonary thromboembolic disease. 4. Emphysema. CT abd/pelvis: IMPRESSION: 1. Question of minimal inflammatory change and a few prominent lymph nodes adjacent to the sigmoid colon. A developing acute diverticulitis cannot be excluded. However, this is difficult to assess due to the metallic artifact. 2. There appears to be a 1 cm enhancing lesion within the left kidney. This is concerning for renal mass. Follow-up nonemergent dedicated renal MRI can be used for further evaluation. 3. Please refer to the same day chest CTA for further evaluation of the lung bases. Code Status & VTE Plan VTE Prophylaxis Plan VTE Prophylaxis will be ordered: Yes Supervising Physician Co-Signing Physician Notes HISTORY: Record reviewed. Patient interviewed and examined in ED. Care coordinated with Carline Gutierres PA-C. Please refer to her documentation for complete history. Briefly, 69-year-old female with history of diastolic CHF, paroxysmal atrial fibrillation, hypertension, COPD, and other problems. Recently admitted with low back pain and discharged home. Returns to ED today because of persistent severe low back pain. Back pain is located in the right flank, mid lumbar region. No relief with lidocaine patch or acetaminophen. No fever, dysuria, hematuria. EXAM: General- no distress Lungs- basilar rales Cardiovascular- RRR, II/ sys murmur at base, no gallop appreciated; + JVD; 1+ pretibial edema Abdomen- + bowel sounds, soft, nontender Back- tenderness right flank as well as over upper & mid lumbar spine Extremities- no cyanosis; no calf tenderness Neuro- alert, oriented Skin- warm & dry DATA: Hemoglobin 7.6, white count 8660, platelet count 167,000. PT 10.5, INR 1.0, PTT 22.6. Sodium 139, potassium 4.0, chloride 102, CO2 36, BUN 29, creatinine 1.06, glucose 103. Other lab studies as noted. Chest x-ray reviewed and demonstrated cardiomegaly and CHF. CTA chest negative for pulmonary embolism Cardiomegaly, pulmonary edema, dependent atelectasis, and emphysema were noted. CT of abdomen pelvis showed: -questionable minimal inflammatory changes in the region of the sigmoid colon -apparent 1 cm enhancing lesion within the left kidney, follow-up nonemergent dedicated renal MRI recommended EKG performed at 0853 reviewed and demonstrated normal sinus rhythm at 73 / minute, no acute ST or T wave abnormalities. ASSESSMENT AND PLAN: Back / flank pain. Back pain appears to be musculoskeletal in nature. CTA chest negative for pulmonary embolism. MRI ordered for further imaging of thoracic and lumbar spine. Doubt that back pain is secondary to urinary tract disease, but check UA. Adjust analgesics. PT/OT. Acute on chronic left ventricular diastolic heart failure. Titrate diuretics. Paroxysmal atrial fibrillation. Continue metoprolol and propafenone. Not anticoagulated because of history of peptic ulcer disease and anemia. Hypertension. Continue metoprolol and amlodipine. COPD Pulmonary status stable. Continue usual pulmonary meds. Chronic anemia. Hemoglobin 7.6 similar to recent labs. Hemoglobin runs between around 7.5-9.5 over the last 2 years. Iron studies on 07/29/2019 demonstrated iron 42, TIBC 256, ferritin 636. Stools were negative for occult blood on 12/14/2018. Vitamin B12 and folic acid level on 12/14/2018 were 667 and 19.3, respectively. Check serum protein electrophoresis. Consider outpatient Hematology consult. CT of abdomen pelvis showed questionable inflammatory changes in the sigmoid colon, suggesting possible diverticulitis. Given the absence of fever, leukocytosis, pain/tenderness in that region it seems that diverticulitis is unlikely and antibiotics will not be ordered at this time. Incidental finding on CT of abdomen pelvis was a suspected left renal mass. Dedicated renal MRI recommended. This admission will be the patient's third admission in a few weeks. She has not been doing well with previous efforts at managing her back pain and other issues. May benefit from long-term services for PT/OT before returning home. PT/OT eval's and Case Management consultation requested. Please refer to PETERSON Gutierres's documentation for discussion of other issues.
[2019-08-16] MEDS ORDERED: FUROSEMIDE 40 MG/4 ML VIAL IV STA (14:22)
[2019-08-16] MEDS ORDERED: ONDANSETRON INJ 2 MG/ML 2 ML VIAL IV PRN (14:22)
[2019-08-16] MEDS ORDERED: POLYETHYLENE (MIRALAX) 17 GM PACK PO PRN (14:22)
[2019-08-16] MEDS ORDERED: ALBUTEROL 0.083% NEBU SOLN 3 ML VIAL INH PRN (14:22)
--- NOTE | 2019-08-16 14:30 | Electrocardiogram Report ---
Test Reason : Blood Pressure : / mmHG Vent. Rate : 073 BPM Atrial Rate : 073 BPM P-R Int : 194 ms QRS Dur : 100 ms QT Int : 388 ms P-R-T Axes : 014 059 060 degrees QTc Int : 427 ms Normal sinus rhythm Incomplete right bundle branch block Borderline ECG When compared with ECG of 09-AUG-2019 22:02, No significant change was found Confirmed by Charlie Amanda ([id number]) on 08/16/2019 2:29:52 PM Referred By: Confirmed By:Charlie Amanda
[2019-08-16] MEDS ORDERED: IBUPROFEN 600 MG TAB PO PRN (14:37)
[2019-08-16] MEDS ORDERED: FUROSEMIDE 40 MG in SYRINGE 0 ML IV ONE (15:00)
[2019-08-16] MEDS: CLOTRIMAZOLE 1% CR 15 GM TUBE EXT SCH ×2 (15:43→21:23)
[2019-08-16] MEDS: TRAMADOL HCL 50 MG TABLET PO PRN ×2 (15:43→21:22)
[2019-08-16] MEDS: PROPAFENONE HCL 150 MG TABLET PO SCH ×2 (15:44→21:25)
[2019-08-16] MEDS: ACETAMINOPHEN 500 MG TAB PO PRN (19:21)
--- NOTE | 2019-08-16 21:19 | Magnetic Resonance Report ---
MRI OF THE THORACIC SPINE WITHOUT CONTRAST CLINICAL HISTORY: R back pain thoracolumbar region COMPARISON: Thoracic spine CT September 24, 2010. Thoracic spine radiographs October 16, 2010. TECHNIQUE: Utilizing a 1.5 Alem magnet and dedicated coil, multiplanar, multiecho imaging of the th oracic spine was performed without IV contrast. Postcontrast imaging could not be performed as patien t was unable to tolerate duration of scan FINDINGS: Alignment of the thoracic spine is anatomic. Severe T6 compression fracture is chronic. Mario tebral augmentation at this level is noted. Old mild T5 and T7 compression fractures are noted. No ac [place] thoracic spine fracture. There is no suspicious marrow replacement. Thoracic cord signal and jyotsna saeed are normal. There is no intracanalicular mass or fluid collection. Central canal and neural bill en are patent. Bibasilar airspace opacities are better depicted on chest CT performed earlier today. IMPRESSION: 1. No acute thoracic spine fracture. No acute process within the thoracic spine by MRI. 2. Old T5, T6 and T7 compression fractures. T6 vertebroplasty. ACT 112: Negative or not required by law. Electronically signed by: Quentin Maier M.D. 08/16/2019 9:17 PM
[2019-08-16] MEDS: GABAPENTIN 300 MG CAP PO SCH (21:23)
[2019-08-16] MEDS: ATORVASTATIN 20 MG TAB PO SCH (21:24)
[2019-08-16] MEDS: FAMOTIDINE 20 MG TAB PO SCH (21:24)
--- NOTE | 2019-08-16 21:26 | Magnetic Resonance Report ---
MRI OF THE LUMBAR SPINE WITHOUT CONTRAST CLINICAL HISTORY: R back pain thoracolumbar region COMPARISON STUDY: Lumbar spine MRI June 01, 2011. Lumbar spine CT January 16, 2018. Lumbar spine rad iographs December 10, 2018. TECHNIQUE: Utilizing a 1.5 Alem magnet and dedicated coil, multiplanar, multiecho imaging of the darinel ar spine was performed without IV contrast. Postcontrast imaging could not be performed as patient was unable to tolerate duration of study. FINDINGS: For purposes of numbering on this exam, the L5-S1 disc space is assigned to axial 27 of 30. Alignment of the lumbar spine is anatomic. There is a mild old compression fracture of the superior endplate o f T11. No intracanalicular mass or fluid collection is present. The conus terminates at the mid L1 le yari. Renal lesions are better depicted on CT of the abdomen and pelvis which was performed today. Par avertebral soft tissues are unremarkable. Mild multilevel degenerative disc disease is noted with mod erate multilevel facet arthrosis. Mild progression of degenerative change since MRI of June 01 011 is noted. L1-2: There is mild disc space narrowing. The central canal and neural foramen are patent. L2-3: There is mild facet arthrosis. The central canal and neural foramen are patent. L3-4: There is moderate facet arthrosis. The central canal and neural foramen are patent. L4-5: There is mild disc space narrowing with disc bulge. There is severe facet arthrosis with ligame ntous hypertrophy. There is moderate narrowing of the central canal and mild narrowing of the bilater al lateral recesses and neural foramen at this level. L5-S1: There is facet arthrosis. The central canal and left neural foramen are patent. There is mild narrowing of the right neural foramen. IMPRESSION: 1. Mild multilevel degenerative disc disease and moderate multilevel facet arthrosis within the lumba r spine. 2. Moderate central canal stenosis at L4-L5 due to facet arthrosis, ligamentous hypertrophy and mild disc bulge. 3. No acute lumbar spine compression fracture. ACT 112: Negative or not required by law. Electronically signed by: Quentin Maier M.D. 08/16/2019 9:25 PM
[2019-08-16] MEDS ORDERED: MoRPHine SULFATE 4 MG/ML 1 ML CARP\\VIAL IV STA (23:01)
[2019-08-17 00:33] LABS: Appearance Urine Clear (Clear); Bacteria Urine Automated Negative (Negative); Bilirubin Urine Negative (Negative); Blood Urine Negative (Negative); Cast Urine Automated 0 /lpf (0-5); Color Urine Yellow; Glucose Urine UA Negative (Negative); Ketones Urine Negative (Negative); Leukocyte Esterase Urine Negative (Negative); Nitrite Urine Negative (Negative); Protein Urine Trace (Negative); RBC Urine Automated 0-4 /hpf (0-4); Specific Gravity Urine 1.027 (1.000-1.030); Urobilinogen Urine Negative (Negative); WBC Urine Automated 0 /hpf (0-5); pH Urine 6.5 (4.5-7.5)
--- NOTE | 2019-08-17 01:10 | Emergency Department Note ---
Entered by Sarina London acting as a scribe for Gustavo Herron MD History of Present Illness General Chief complaint: Back Injury/Pain Time Seen by Provider: 08/16/19 09:15 Source: patient History of Present Illness Onset (ago): week(s) 1 Location: back Pain Consistency: + other (persistent, worsening) Maximum Pain Intensity: 9 Quality: + sharp Associated symptoms: + cough; no chest pain and no fever/chills Treatments prior to arrival: none The patient is a 69 year old female presenting to the Emergency Department complaining of persistent, worsening back pain starting 1 week ago. The patient reports that she has mid to low back pain. She describes this pain as sharp. She explains that she has a cough. She notes that her lower extremities are swollen more than they usually are. She adds that she has experienced these symptoms before as she was admitted to the hospital a little more than 1 week ago for similar symptoms. 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 She states that she normally uses supplemental oxygen via nasal cannula at home. The patient denies recent chest pain, fevers, chills, smoking tobacco and blood thinner use. Home Medications Home Medications Medication Instructions Recorded Confirmed Type Breo Ellipta 1 inh INHALATION DAILY 03/12/18 08/16/19 History Daliresp 500 mcg PO DAILY 03/12/18 08/16/19 History allopurinol 300 mg PO QAM 03/12/18 08/16/19 History atorvastatin 20 mg PO QPM 03/12/18 08/16/19 History cholecalciferol (vitamin D3) 2,000 unit PO QAM 03/12/18 08/16/19 History [Vitamin D3] gabapentin 300 mg PO HS 03/12/18 08/16/19 History levothyroxine 88 mcg PO DAILYBB 03/12/18 08/16/19 History metoprolol succinate 50 mg PO QAM 03/12/18 08/16/19 History multivitamin 1 tab PO QAM 03/12/18 08/16/19 History propafenone 150 mg PO Q8H 03/12/18 08/16/19 History ranitidine HCl 150 mg PO BID 03/12/18 08/16/19 History sertraline [Zoloft] 25 mg PO QAM 03/12/18 08/16/19 History albuterol sulfate 2.5 mg INHALATION Q6 PRN 08/07/18 08/16/19 History Spiriva with HandiHaler 1 cap INH DAILY #30 puffs 08/03/19 08/16/19 Rx amlodipine [Norvasc] 5 mg PO QAM #30 tab 08/11/19 08/16/19 Rx bumetanide 1 mg PO BID17 #60 tab 08/11/19 08/16/19 Rx ibuprofen 600 mg PO TID PRN #30 tab 08/11/19 08/16/19 Rx Allergies Allergy/AdvReac Type Severity Reaction Status Date / Time adhesive Allergy Severe RED RASH Verified 08/16/19 10:17 latex AdvReac Mild TAPE-SORE Verified 08/16/19 10:17 morphine AdvReac Mild DELUSIONS Verified 08/16/19 10:17 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) Hx of cholecystectomy (Chronic) S/P cervical spinal fusion (Chronic) S/P wrist surgery (Chronic) Family History Father Trauma Mother Diabetes Cerebral aneurysm Daughter Bipolar 1 disorder Social History Preferred Language: [place] Communication Ability: Effective Safe Technician Required: No Beliefs That Will Affect Care: None marital status: Current Living Situation: Family Current Living Situation Comment: lives with daughter Other Information That Helps Us Care for You: No Feels Safe at Home: Yes Safety Concerns: Feels Safe At This Time Smoking Status: Former smoker Tobacco Type: cigarettes ; Cigarettes Per Day: 2 packs ; Do You Dip or Chew Tobacco: No ; Second Hand Exposure: No ; Tobacco Cessation Education Requested by Patient: No Hx Alcohol Use: No Hx Substance Use: No Review of Systems See HPI for pertinent positives & negatives. and A total of 10 systems reviewed and were otherwise negative Physical Exam Vital Signs Vital Signs - 24 hr 08/16/19 08:58 08/16/19 09:00 08/16/19 09:02 Temperature 36.8 C Temperature Source Oral Pulse Rate 75 72 72 Pulse Rate [Apical] Pulse Rate from SpO2 Sensor 72 72 Respiratory Rate 22 21 19 Respiratory Effort / Characteristics Non-Labored Spontaneous Respiratory Depth Normal Respiratory Pattern Regular Blood Pressure 146/60 H 148/58 H Blood Pressure [Right Arm] Blood Pressure Mean 88 73 Blood Pressure Mean [Right Arm] Pulse Oximetry 99 100 100 Oxygen Delivery Method Nasal Cannula Nasal Cannula Nasal Cannula Oxygen Flow Rate 4 4 4 Sepsis Recent Fever Within 48 Hours No Sepsis New/Unexplained Change in Mental Status No Sepsis Action Taken by Nursing No Action Required 08/16/19 09:04 08/16/19 09:30 08/16/19 09:41 Temperature Temperature Source Pulse Rate 77 76 Pulse Rate [Apical] 75 Pulse Rate from SpO2 Sensor 77 Respiratory Rate 22 18 22 Respiratory Effort / Characteristics Non-Labored Spontaneous Respiratory Depth Normal Respiratory Pattern Regular Blood Pressure 146/61 H Blood Pressure [Right Arm] 146/60 H Blood Pressure Mean 75 Blood Pressure Mean [Right Arm] 88 Pulse Oximetry 99 100 100 Oxygen Delivery Method Nasal Cannula Nasal Cannula Nasal Cannula Oxygen Flow Rate 4 4 4 Sepsis Recent Fever Within 48 Hours Sepsis New/Unexplained Change in Mental Status Sepsis Action Taken by Nursing 08/16/19 10:00 08/16/19 10:01 08/16/19 10:35 Temperature Temperature Source Pulse Rate 77 78 85 Pulse Rate [Apical] Pulse Rate from SpO2 Sensor 79 78 78 Respiratory Rate 20 19 18 Respiratory Effort / Characteristics Respiratory Depth Respiratory Pattern Blood Pressure 139/61 Blood Pressure [Right Arm] Blood Pressure Mean 73 Blood Pressure Mean [Right Arm] Pulse Oximetry 99 100 94 Oxygen Delivery Method Nasal Cannula Nasal Cannula Nasal Cannula Oxygen Flow Rate 4 4 4 Sepsis Recent Fever Within 48 Hours Sepsis New/Unexplained Change in Mental Status Sepsis Action Taken by Nursing 08/16/19 10:37 08/16/19 11:01 Temperature Temperature Source Pulse Rate 77 Pulse Rate [Apical] 78 Pulse Rate from SpO2 Sensor 75 Respiratory Rate 20 18 Respiratory Effort / Characteristics Spontaneous Respiratory Depth Respiratory Pattern Blood Pressure 150/67 H Blood Pressure [Right Arm] Blood Pressure Mean 90 Blood Pressure Mean [Right Arm] Pulse Oximetry 99 96 Oxygen Delivery Method Nasal Cannula Nasal Cannula Oxygen Flow Rate 4 4 Sepsis Recent Fever Within 48 Hours Sepsis New/Unexplained Change in Mental Status Sepsis Action Taken by Nursing GENERAL: Chronically ill appearing. Awake, alert, in no distress HENT: Normocephalic, atraumatic. Oropharynx unremarkable. EYES: Normal conjunctiva. Sclera non-icteric. NECK: Supple. No nuchal rigidity. FROM. No JVD. RESPIRATORY: Diminished at bases with scattered wheezes. CARDIAC: Regular rate, normal rhythm. Extremities warm and well perfused. Pulses equal. ABDOMEN: Soft, non-distended. No tenderness to palpation. No rebound or guarding. No masses. RECTAL: Deferred. MUSCULOSKELETAL: Right flank discomfort without discrete tenderness. Chest examination reveals no tenderness. The back is symmetrical on inspection without obvious abnormality. No joint edema. LOWER EXTREMITIES: Calves are equal size bilaterally and non-tender. 2+ BLE edema. No discoloration. NEURO: Normal sensorium. No sensory or motor deficits noted. SKIN: No rash or jaundice noted. Course Course 929: The patient was evaluated in room A2, and a complete history and physical examination were performed. 1100: I reevaluated the patient at this time. 1248: I discussed the patients case with Dr. Vishnu Alex hospitalist. He will evaluate the patient for further management. Administered Medications Acetaminophen (Tylenol) 1,000 mg PO Q8H PRN PRN Reason: Pain Stop: 09/15/19 17:59 Last Admin: 08/16/19 19:21 Dose: 1,000 mg Documented by: [id number] Atorvastatin Calcium (Lipitor) 20 mg PO QPM [facility] Stop: 09/15/19 20:59 Last Admin: 08/16/19 21:24 Dose: 20 mg Documented by: [id number] Clotrimazole (Lotrimin 1%) 1 appln EXT BID [facility] Stop: 09/15/19 14:21 Last Admin: 08/16/19 21:23 Dose: 1 appln Documented by: [id number] Admin: 08/16/19 15:43 Dose: 1 appln Documented by: [id number] Famotidine (Pepcid) 20 mg PO BID [facility] [place] Stop: 09/15/19 20:59 Last Admin: 08/16/19 21:24 Dose: 20 mg Documented by: [id number] Gabapentin (Neurontin) 300 mg PO HS [facility] Stop: 09/15/19 20:59 Last Admin: 08/16/19 21:23 Dose: 300 mg Documented by: [id number] Propafenone HCl (Rythmol) 150 mg PO Q8 [facility] Stop: 09/15/19 14:21 Last Admin: 08/16/19 21:25 Dose: 150 mg Documented by: [id number] Admin: 08/16/19 15:44 Dose: 150 mg Documented by: [id number] Tramadol HCl (Ultram) 50 mg PO Q4H PRN PRN Reason: Pain Stop: 09/15/19 13:57 Last Admin: 08/16/19 21:22 Dose: 50 mg Documented by: [id number] Admin: 08/16/19 15:43 Dose: 50 mg Documented by: [id number] Discontinued Medications Albuterol (Duoneb) 3 ml NEB NOW STA Stop: 08/16/19 10:25 Last Admin: 08/16/19 11:00 Dose: 3 ml Documented by: [id number] Dexamethasone Sodium Phosphate (Decadron Pf) 10 mg IV NOW ONE Stop: 08/16/19 10:25 Last Admin: 08/16/19 10:43 Dose: 10 mg Documented by: [id number] Acetaminophen (Ofirmev) 1,000 mg in 100 mls @ 400 mls/hr IV NOW STA Stop: 08/16/19 09:47 Last Infusion: 08/16/19 10:03 Dose: 0 mls/hr Documented by: [id number] Admin: 08/16/19 09:47 Dose: 400 mls/hr Documented by: [id number] Metronidazole (Flagyl) 500 mg in 100 mls @ 100 mls/hr IV NOW STA Stop: 08/16/19 13:29 Last Admin: 08/16/19 12:48 Dose: Not Given Documented by: [id number] Furosemide 40 mg/ Syringe 4 mls @ 4 mls/min IV ONE ONE Stop: 08/16/19 15:01 Last Admin: 08/16/19 15:44 Dose: 4 mls/min Documented by: [id number] Ioversol (Optiray 320 125ml) 120 ml IV ONCE PRN PRN Reason: Interaction Checking Stop: 08/20/19 10:51 Last Admin: 08/16/19 10:53 Dose: 120 ml Documented by: [id number] Morphine Sulfate (Morphine Sulfate) 3 mg IV NOW STA Stop: 08/16/19 23:02 Last Admin: 08/16/19 23:10 Dose: 3 mg Documented by: [id number] Medical Decision Making Differential Diagnosis Differential diagnoses includes but is not limited to gastritis, peptic ulcer disease, GERD, gallbladder disease, pancreatitis, small bowel obstruction, acute coronary syndrome, pericarditis, ischemic bowel, irritable bowel disease, irritable bowel syndrome, appendicitis, diverticulitis, malignancy, hernia, uri nary tract infection, torsion, perforation, trauma, infectious. Medical Records Attestation: I reviewed the patient's medical records. Home Medications Current Medication List: was personally reviewed by me Laboratory Data Attestation: I reviewed the patient's lab results. Result diagrams: 08/16/19 09:52 08/16/19 09:52 Lab Results 08/16/19 08/16/19 08/16/19 Range/Units 09:52 09:52 09:52 WBC 8.66 (4.8-10.8) K/uL RBC 2.50 L (4.2-5.4) M/uL Hgb 7.6 L (12.0-16.0) g/dL Hct 24.5 L (37-47) % MCV 98.0 (80-100) fL MCH 30.4 (25-34) pg MCHC 31.0 L (32-36) g/dL RDW Std Deviation 51.6 H (36.4-46.3) fL RDW Coeff of Arabella 14.4 (11.5-14.5) % Plt Count 167 (130-400) K/uL MPV 8.3 (7.4-10.4) fL Immature Gran % (Auto) 0.2 % Neut % (Auto) 68.5 % Lymph % (Auto) 20.7 % [place] % (Auto) 7.0 % Eos % (Auto) 3.3 % Baso % (Auto) 0.3 % Immature Gran # (Auto) 0.02 (0.00-0.02) K/uL Neut # (Auto) 5.92 (1.4-6.5) K/uL Lymph # (Auto) 1.79 (1.2-3.4) K/uL [place] # (Auto) 0.61 H (0.11-0.59) K/uL Eos # (Auto) 0.29 (0-0.5) K/uL Baso # (Auto) 0.03 (0-0.2) K/uL Basophilic Stippling 1+ PT 10.5 (9.0-12.0) Seconds INR 1.0 (0.9-1.1) APTT 22.6 (21.0-31.0) Seconds PTT Ratio 0.8 Sodium 139 (136-145) mmol/L Potassium 4.0 (3.5-5.1) mmol/L Chloride 102 (98-107) mmol/L Carbon Dioxide 36 H (21-32) mmol/L Anion Gap 1.0 L (3-11) BUN 29 H (7-18) mg/dl Creatinine 1.06 (0.6-1.2) mg/dl Est Cr Clr Drug Dosing 55.7 ml/min Est GFR ( Amer) 61.2 Est GFR (Non-Af Amer) 52.8 BUN/Creatinine Ratio 27.3 H (10-20) Glucose 103 H (70-99) mg/dl Calcium 9.4 (8.5-10.1) mg/dl Phosphorus 4.0 (2.5-4.9) mg/dl Magnesium 1.9 (1.8-2.4) mg/dl Total Bilirubin 0.2 (0.2-1) mg/dl AST 6 L (15-37) U/L ALT 10 L (12-78) U/L Alkaline Phosphatase 79 (45-117) U/L Troponin I < 0.015 (0-0.045) ng/ml Total Protein 6.6 (6.4-8.2) gm/dl Albumin 2.6 L (3.4-5.0) gm/dl Globulin 4.0 (2.5-4.0) gm/dl Albumin/Globulin Ratio 0.7 L (0.9-2) Lipase 95 (73-393) U/L 08/16/19 Range/Units 09:52 WBC (4.8-10.8) K/uL RBC (4.2-5.4) M/uL Hgb (12.0-16.0) g/dL Hct (37-47) % MCV (80-100) fL MCH (25-34) pg MCHC (32-36) g/dL RDW Std Deviation (36.4-46.3) fL RDW Coeff of Arabella (11.5-14.5) % Plt Count (130-400) K/uL MPV (7.4-10.4) fL Immature Gran % (Auto) % Neut % (Auto) % Lymph % (Auto) % [place] % (Auto) % Eos % (Auto) % Baso % (Auto) % Immature Gran # (Auto) (0.00-0.02) K/uL Neut # (Auto) (1.4-6.5) K/uL Lymph # (Auto) (1.2-3.4) K/uL [place] # (Auto) (0.11-0.59) K/uL Eos # (Auto) (0-0.5) K/uL Baso # (Auto) (0-0.2) K/uL Basophilic Stippling PT (9.0-12.0) Seconds INR (0.9-1.1) APTT (21.0-31.0) Seconds PTT Ratio Sodium (136-145) mmol/L Potassium (3.5-5.1) mmol/L Chloride (98-107) mmol/L Carbon Dioxide (21-32) mmol/L Anion Gap (3-11) BUN (7-18) mg/dl Creatinine (0.6-1.2) mg/dl Est Cr Clr Drug Dosing ml/min Est GFR ( Amer) Est GFR (Non-Af Amer) BUN/Creatinine Ratio (10-20) Glucose (70-99) mg/dl Calcium (8.5-10.1) mg/dl Phosphorus Cancelled (2.5-4.9) mg/dl Magnesium Cancelled (1.8-2.4) mg/dl Total Bilirubin (0.2-1) mg/dl AST (15-37) U/L ALT (12-78) U/L Alkaline Phosphatase (45-117) U/L Troponin I (0-0.045) ng/ml Total Protein (6.4-8.2) gm/dl Albumin (3.4-5.0) gm/dl Globulin (2.5-4.0) gm/dl Albumin/Globulin Ratio (0.9-2) Lipase (73-393) U/L Imaging Data Radiologist's Impression: Radiology results as stated below per my review and the radiologist's interpretation: CT angio chest PE protocol CT DOSE: 1571.30 mGycm HISTORY: 69 years-old Female with PE. Acute chest and back pain TECHNIQUE: Multiple CTA images of the chest were obtained after the intravenous administration of 120 ml Optiray 320. Coronal and sagittal MIPS were obtained from the axial data set and were submitted for review. All measurements were obtained according to NASCET criteria. A dose lowering technique was utilized adhering to the principles of ALARA. COMPARISON: Chest radiograph of same day, chest CT 08/10/2019 FINDINGS: CTA: Moderate cardiomegaly. No pericardial effusion. Streak artifact from upper extremity positioning. Extensive coronary artery calcifications. No thoracic aortic aneurysm or dissection. Patency of the imaged great vessels. Extensive mixed plaque of the thoracic aorta. Pulmonary artery is opacified to level of the distal segmental branches. The subsegmental branches are not well evaluated secondary to bolus timing and respiratory motion. No filling defects identified to suggest pulmonary thromboembolic disease. CT CHEST: 1.3 cm hypodense right thyroid nodule redemonstrated. Mildly enlarged paratracheal lymph nodes measure up to 10 mm. Prominent and mildly enlarged subcarinal and right hilar lymph nodes are unchanged. No pneumothorax or large pleural effusion. Trace pleural effusions are suggested. Intralobular septal thickening with intermixed groundglass densities. Dependent bibasilar consolidation. Mild emphysema with areas of subpleural reticulation suggestive of fibrosis. There are no suspicious pulmonary nodules or masses identified. Central airways appear patent. Mild bronchial wall thickening of the lung bases. No acute processes of the imaged upper abdomen. Soft tissues are unremarkable. Degenerative changes of the spine and left shoulder. Right shoulder arthroplasty. Multiple remote compression deformities of the thoracic spine. No acute fracture identified. Kyphoplasty changes at the T6 level. Healing subacute appearing nondisplaced fracture of the posterior right 10th rib is suggested. IMPRESSION: 1. Cardiomegaly with mild pulmonary edema. 2. Dependent bibasilar consolidation suggests atelectasis. 3. No evidence of pulmonary thromboembolic disease. 4. Emphysema. ACT 112: Negative or not required by law. The above report was generated using voice recognition software. It may contain grammatical, syntax or spelling errors. Electronically signed by: Ariel Shah M.D. 08/16/2019 11:13 AM ADDENDUM A 1.5 cm splenic artery aneurysm at the splenic hilum. Electronically signed by: Henry Bourne M.D. 08/16/2019 1:01 PM ADDENDUM END ABDOMEN AND PELVIS CT WITH IV CONTRAST CT DOSE: HISTORY: Right flank/abd pain TECHNIQUE: Multiaxial CT images of the abdomen and pelvis were performed following the use of intravenous contrast. A dose lowering technique was utilized adhering to the principles of ALARA. COMPARISON STUDY: Abdomen and pelvis CT 09/27/2017. FINDINGS: Please refer to the dedicated chest CT performed same day for further evaluation of the lung bases. Suboptimal evaluation of the abdomen and pelvis due to streak artifact from the patient's overlapping arms and the patient's right total hip arthroplasty. No pneumoperitoneum. No pneumatosis. No suspicious lytic are blastic osseous lesions. A 1.5 cm splenic artery aneurysm at the splenic hilum. No hepatic or splenic masses. The left adrenal gland and pancreas are unremarkable. No hydronephrosis. Bilateral renal hypodense lesions remain stable. A 1 cm enhancing lesion within the left kidney on image 182. This is concerning for a renal mass. No retroperitoneal lymphadenopathy. Calcified plaque within the normal caliber abdominal aorta. Bladder is not well visualized due to metallic artifact and is decompressed. The uterus and bilateral adnexa are also partially obscured but appear grossly intact. The sigmoid colon is also obscured by the metallic artifact. There are few scattered colonic diverticula. Question of minimal inflammatory change and a few prominent lymph nodes adjacent to the sigmoid colon. A developing acute diverticulitis cannot be excluded. H owever, this is difficult to assess due to the metallic artifact. No bowel obstruction. The appendix is not identified and reportedly surgically absent. Stable right adrenal gland nodule. This is likely benign. IMPRESSION: 1. Question of minimal inflammatory change and a few prominent lymph nodes adjacent to the sigmoid colon. A developing acute diverticulitis cannot be excluded. However, this is difficult to assess due to the metallic artifact. 2. There appears to be a 1 cm enhancing lesion within the left kidney. This is concerning for renal mass. Follow-up nonemergent dedicated renal MRI can be used for further evaluation. 3. Please refer to the same day chest CTA for further evaluation of the lung bases. ACT 112: Negative or not required by law. Electronically signed by: Henry Bourne M.D. 08/16/2019 11:26 AM XR chest 1V portable HISTORY: Atypical Chest Pain COMPARISON: Chest 08/09/2019. FINDINGS: No pneumothorax. Trace left pleural effusion. The heart is mildly enlarged. There is a right shoulder prosthesis. Mild interstitial vascular thickening which has progressed. This likely represents mild interstitial pulmonary edema. No new focal lung consolidations to suggest pneumonia. IMPRESSION: 1. Interval progression of the mild interstitial pulmonary edema and a trace left pleural effusion. 2. Stable cardiomegaly. ACT 112: Negative or not required by law. Electronically signed by: Henry Bourne M.D. 08/16/2019 9:55 AM ECG Data Attestation: I personally reviewed and interpreted this ECG as follows: Indication: + back/shoulder pain Rate (beats per minute): 73 Rhythm: + sinus rhythm ECG Intervals/blocks: + Incomplete right bundle branch block and + Normal QT-c (QT-c 427.) ECG [place]: + Normal ECG ST segments: no ST depression and no ST elevation Blood Pressure Blood Pressure Findings: Elevated blood pressure Blood Pressure Disposition: further management by hospitalist TATE Au The patient is a pleasant 69 y/o woman with a pmhx of chronic respiratory failure with hypoxia, COPD, diastolic HF, CKD, iron deficiency anemia who presents to the emergency department with complaint of right back/flank pain that has continued since her discharge last week per HPI. She also complains of SOB and intermittent right sided chest chest pain. On arrival the patient is chronically-ill appearing but in NAD, AFVSS. She exhibits diminished at bases with scattered wheezes. She has mild right flank/mid back discomfort without discrete tenderness. 2+ BLE edema. EKG with incomplete RBBB, without overt acute ischemia. CXR with interstitial pulmonary edema. WBC and Platelets wnl. H/H 7.6/24.5. Chemistry without acidosis. Electrolytes and LFTs unremarkable. Troponin negative/undetectable. UA negative for infection. CTA of chest negative for PE. CT abd/pelvis with question of early sigmoid diverticulitis however patient has no lower or left abdominal symptoms/pain. Patient re-evaluated and feels improved sob after Dexamethasone and Duoneb. However she continues to c/o of pain after IV apap. Given lack of objective findings to explain her pain I explained to the patient that narcotics were not indicated at this time. However, she was agreeable for admission to further evaluation cause for her pain. Case was discussed with Dr. Mares, [facility] hospitalist, who will evaluate the patient for admission. Impression & Plan Back pain, Anemia, COPD (chronic obstructive pulmonary disease), Chronic respiratory failure with hypoxia Discharge Plan Visit Data *Final* Discharge Date/Time: 08/16/19 13:39 Chief Complaint: Back Injury/Pain ED Provider: Gustavo Herron Discharge Problem: Back pain, Anemia, COPD (chronic obstructive pulmonary disease), Chronic respiratory failure with hypoxia Patient Disposition: Being Evaluated by Hospitalist Discharge Instructions Interventions: ED Discharge Assessment Last Done: 08/16/19 13:39 Discharge Problem: Back pain Qualifiers: Back pain location: back pain in unspecified location Chronicity: acute Back pain laterality: unspecified Qualified Code(s): M54.9 - Dorsalgia, unspecified Anemia Qualifiers: Anemia type: unspecified type Qualified Code(s): D64.9 - Anemia, unspecified The scribe's documentation has been prepared under my direction and personally reviewed by me in its entirety. I confirm that the note above accurately reflects all work, treatment, procedures, and medical decision making performed by me.
[2019-08-17] MEDS: TRAMADOL HCL 50 MG TABLET PO PRN ×4 (01:23→20:11)
[2019-08-17] MEDS: ACETAMINOPHEN 500 MG TAB PO PRN (04:33)
[2019-08-17] MEDS ORDERED: CIPROFLOXACIN 400 MG/200 ML BAG IV SCH (06:00)
[2019-08-17] MEDS: PROPAFENONE HCL 150 MG TABLET PO SCH ×3 (06:07→21:29)
[2019-08-17] MEDS: LEVOTHYROXINE SODIUM 88 MCG TABLET PO SCH (06:07)
[2019-08-17] MEDS: UMECLIDINIUM BROMIDE 62.5MCG/BLISTER 7 PUFFS/INHALER INH SCH (07:30)
[2019-08-17] MEDS: FLUTICASONE/VILANTEROL 200/25MCG 14 PUFFS/INHALER INH SCH (07:30)
[2019-08-17] MEDS: METOPROLOL SUCC 50MG EXT REL TAB PO SCH (07:31)
[2019-08-17] MEDS: CHOLECALCIFEROL 1,000 UNITS 25 MCG TAB PO SCH (07:31)
[2019-08-17] MEDS: FAMOTIDINE 20 MG TAB PO SCH ×2 (07:31→20:15)
[2019-08-17] MEDS: SERTRALINE HCL 50 MG TABLET PO SCH (07:31)
[2019-08-17] MEDS: allopurinoL 300 MG TAB PO SCH (07:31)
[2019-08-17] MEDS: AMLODIPINE BESYLATE 5 MG TAB PO SCH (07:31)
[2019-08-17] MEDS: CLOTRIMAZOLE 1% CR 15 GM TUBE EXT SCH ×2 (07:32→20:12)
[2019-08-17] MEDS: MULTIVITAMIN TAB PO SCH (07:32)
[2019-08-17] MEDS: ROFLUMILAST 500 MCG TAB PO SCH (07:32)
[2019-08-17] MEDS: DICLOFENAC SOD 1% GEL 100 GM TUBE EXT SCH ×2 (13:15→20:15)
--- NOTE | 2019-08-17 17:37 | Hospitalist Progress Note ---
Date of Service August 17, 2019 Assessment & Plan (1) Right-sided back pain: This is a 69-year-old female with a PMH of COPD with chronic respiratory failure with hypoxia on 4 L NC O2, chronic diastolic heart failure, paroxysmal atrial fibrillation, iron deficiency anemia, CKD III/IV, spinal stenosis of lumbar region and other medical problems listed below who presents with worsening back pain for the past 5 days. -Worsening frequency and severity of right sided mid back pain x5 days -Evidence of degenerative changes to spine and subacute healing of fractured posterior right 10th rib on chest CTA -Considered pleuritic source of pain but no evidence of PE or pneumonia on chest CTA -Thoracic and lumbar spine MRI showed old multilevel vertebral fracture and minimal disc protrusion but nothing significant -Continue Tylenol and ibuprofen. Added tramadol as needed -Local diclofenac cream was added to control pain -She cannot take any patch due to allergy -PT/OT evaluation (2) Heart failure, diastolic, with acute decompensation: Bibasilar crackles and worsening bilateral lower extremity edema on exam -Was resumed on Bumex during previous admission and has been taking 1 mg twice daily -Chest CTA with cardiomegaly with mild pulmonary edema -Given 40mg IV Lasix x 1. Strict intake and output, daily weights, low-sodium diet -Clinically no CHF -Continue home dose of Lasix (3) Abnormal abdominal CT scan: Question of minimal inflammatory change and a few prominent lymph nodes adjacent to the sigmoid colon with concern for developing acute diverticulitis -Patient has no correlating pain, is afebrile and has no leukocytosis -No indication for abx unless becomes febrile, develops symptoms -No signs or and/or symptoms of infection -Will not give any antibiotic (4) PAF (paroxysmal atrial fibrillation): Stable. Continue home dose toprol and propafenone 150 -Monitor on telemetry (5) EVONNE (iron deficiency anemia): History of chronic anemia with slight worsening from baseline with hgb of 7.6 (baseline low-mid 8s) -No other active bleeding is present -Iron levels were adequate a few weeks weeks ago -Daily CBC -hemoglobin dropped to 7.6 -We will monitor (6) CKD (chronic kidney disease), stage III: At baseline. Continue to monitor (7) HTN (hypertension): Continue home amlodipine, toprol (8) COPD (chronic obstructive pulmonary disease): (9) Chronic respiratory failure with hypoxia: Compensated. Continue home Breo Ellipta, Daliresp, spiriva, albuterol neb PRN -At respiratory baseline on 4L [place] O2 (10) MRSA (methicillin resistant staph aureus) culture positive: Isolation precautions (11) Seborrheic dermatitis: Facial, near eyebrows. Lotrimin cream BID (12) SIMONA (obstructive sleep apnea): CPAP HS DVT Ppx: SCDs in setting of severe anemia Code status: FULL PCP: Nora Dispo: Observation med tele. Discharge planning, PT and OT consulted. Need to explore possibility of placement due to multiple recent admissions Subjective 08/17/2019 The patient was seen and examined in medical floor She was admitted with acute back pain with radiating to back of the legs without any bladder and/or bowel abnormality Complains to have pain during examination Denies any significant problem with breathing Review of Systems Review of Systems: All systems reviewed and are unremarkable except as noted below Musculoskeletal: Significant lower back pain with radiation to both legs up to the knee Neurologic: no confusion Physical Exam Physical Exam: Sitting on a chair with minimal distress due to pain Constitutional: well developed, well nourished, + acute distress (Back pain) and + obese Eyes: PERRL, conjunctivae normal, anicteric sclerae ENMT: external ear and nose normal, oropharynx normal Neck: trachea midline, no thyromegaly Respiratory: normal respiratory effort; no respiratory distress Auscultation: + diminished lung sounds and + wheezes (Minimal wheezing bilaterally) Cardiovascular: Rate/Rhythm: regular rate and regular rhythm Heart Sounds: no murmur Gastrointestinal (Abdomen): Inspection/Auscultation: abdomen normal to inspection and normal bowel sounds Percussion/Palpation: abdomen soft; abdomen nontender Musculoskeletal: Localized tenderness at the lower lumbar area Neurologic: moves all extremities; no focal motor deficits Lymphatic: no cervical or axillary lymphadenopathy Results & Data ([facility]) Vital Signs (Past 12 Hours) Vital Signs Temp Pulse Pulse Resp BP Pulse Ox 08/17/19 15:57 36.6 C 76 18 172/72 H 98 08/17/19 15:32 70 08/17/19 11:48 36.7 C 78 20 96/79 L 98 08/17/19 08:10 36.6 C 70 20 151/73 H 97 Laboratory Results Urine 08/17/19 Range/Units 00:00 Urine Color Yellow Urine Appearance Clear (Clear) Urine pH 6.5 (4.5-7.5) Ur Specific [place] 1.027 (1.000-1.030) Urine Protein Trace H (Negative) Urine Glucose (UA) Negative (Negative) Medications Administered Current Inpatient Medications Acetaminophen (Tylenol) 1,000 mg PO Q8H PRN PRN Reason: Pain Stop: 09/15/19 17:59 Last Admin: 08/17/19 04:33 Dose: 1,000 mg Documented by: Albuterol (Ventolin 0.083% 2.5mg/3ml) 2.5 mg INH Q6H PRN PRN Reason: Shortness Of Breath Or Wheezin Stop: 09/15/19 14:21 Allopurinol (Zyloprim) 300 mg PO QAM [facility] Stop: 09/16/19 08:59 Last Admin: 08/17/19 07:31 Dose: 300 mg Documented by: Amlodipine Besylate (Norvasc) 5 mg PO QAM [facility] Stop: 09/16/19 08:59 Last Admin: 08/17/19 07:31 Dose: 5 mg Documented by: Atorvastatin Calcium (Lipitor) 20 mg PO QPM [facility] Stop: 09/15/19 20:59 Last Admin: 08/16/19 21:24 Dose: 20 mg Documented by: Clotrimazole (Lotrimin 1%) 1 appln EXT BID [facility] Stop: 09/15/19 14:21 Last Admin: 08/17/19 07:32 Dose: 1 appln Documented by: Diclofenac Sodium (Voltaren 1% Top) 4 gm EXT BID [facility] Stop: 09/16/19 12:44 Last Admin: 08/17/19 13:15 Dose: 4 gm Documented by: Famotidine (Pepcid) 20 mg PO BID [facility] Stop: 09/15/19 20:59 Last Admin: 08/17/19 07:31 Dose: 20 mg Documented by: Fluticasone/Vilanterol (Breo Ellipta 200/25 Mcg Inh) 1 puffs INH DAILY [facility] Stop: 09/16/19 08:59 Last Admin: 08/17/19 07:30 Dose: 1 puffs Documented by: Gabapentin (Neurontin) 300 mg PO HS [facility] Stop: 09/15/19 20:59 Last Admin: 08/16/19 21:23 Dose: 300 mg Documented by: Levothyroxine Sodium (Synthroid) 88 mcg PO DAILYBB [facility] Stop: 09/16/19 06:29 Last Admin: 08/17/19 06:07 Dose: 88 mcg Documented by: Metoprolol Succinate (Toprol Xl) 50 mg PO QAM [facility] Stop: 09/16/19 08:59 Last Admin: 08/17/19 07:31 Dose: 50 mg Documented by: Multivitamins (Multivitamin Tab) [facility] Stop: 09/16/19 08:59 Last Admin: 08/17/19 07:32 Dose: 1 tab Documented by: Ondansetron HCl (Zofran) 4 mg IV Q6H PRN PRN Reason: Nausea Stop: 09/15/19 14:21 Polyethylene Glycol (Miralax Powder Packet) 17 gm PO DAILY PRN PRN Reason: Constipation Stop: 09/15/19 14:21 Propafenone HCl (Rythmol) 150 mg PO Q8 [facility] Stop: 09/15/19 14:21 Last Admin: 08/17/19 13:15 Dose: 150 mg Documented by: Roflumilast (Daliresp) 500 mcg PO DAILY [facility] Stop: 09/16/19 08:59 Last Admin: 08/17/19 07:32 Dose: 500 mcg Documented by: Sertraline HCl (Zoloft) 25 mg PO QAM [facility] Stop: 09/16/19 08:59 Last Admin: 08/17/19 07:31 Dose: 25 mg Documented by: Tramadol HCl (Ultram) 50 mg PO Q4H PRN PRN Reason: Pain Stop: 09/15/19 13:57 Last Admin: 08/17/19 15:15 Dose: 50 mg Documented by: Umeclidinium [place] (Incruse Ellipta) 1 puffs INH DAILY [facility]; Protocol Stop: 09/16/19 08:59 Last Admin: 08/17/19 07:30 Dose: 1 puffs Documented by: Vitamin D (Vitamin D3) 2,000 units PO [facility]AC[facility] Stop: 09/16/19 08:59 Last Admin: 08/17/19 07:31 Dose: 2,000 units Documented by:
[2019-08-17] MEDS: GABAPENTIN 300 MG CAP PO SCH (20:16)
[2019-08-17] MEDS: ATORVASTATIN 20 MG TAB PO SCH (20:16)
[2019-08-18] MEDS: TRAMADOL HCL 50 MG TABLET PO PRN ×4 (00:21→21:29)
[2019-08-18] MEDS: PROPAFENONE HCL 150 MG TABLET PO SCH ×3 (05:43→21:31)
[2019-08-18] MEDS: LEVOTHYROXINE SODIUM 88 MCG TABLET PO SCH (05:43)
[2019-08-18 07:01] LABS: Basophils # (auto) 0.02 K/uL (0-0.2); Basophils % (auto) 0.2 %; Eosinophils # (auto) 0.23 K/uL (0-0.5); Eosinophils % (auto) 2.2 %; Hematocrit (blood only) 26.6 % (37-47); Hemoglobin 8.2 g/dL (12.0-16.0); Immature Granulocytes # (auto) 0.02 K/uL (0.00-0.02); Immature Granulocytes % (auto) 0.2 %; Lymphocytes # (auto) 2.45 K/uL (1.2-3.4); Lymphocytes % (auto) 23.4 %; Mean Corpuscular Hemoglobin 29.9 pg (25-34); Mean Corpuscular Hgb Conc 30.8 g/dL (32-36); Mean Corpuscular Volume 97.1 fL (80-100); Monocytes # (auto) 0.72 K/uL (0.11-0.59); Monocytes % (auto) 6.9 %; Neutrophils # (auto) 7.03 K/uL (1.4-6.5); Neutrophils % (auto) 67.1 %; Platelet Count 192 K/uL (130-400); RDW Coefficient of Variation 14.7 % (11.5-14.5); RDW Standard Deviation 52.5 fL (36.4-46.3); Red Blood Count 2.74 M/uL (4.2-5.4); White Blood Count 10.47 K/uL (4.8-10.8)
[2019-08-18 07:38] LABS: BUN Creatinine Ratio 32.7 (10-20); Calcium 9.7 mg/dl (8.5-10.1); Creatinine Clr Calc Pharmacy 50.4 ml/min; Est GFR (African American) 55.4; Est GFR (Non-African American) 47.8; Magnesium 1.9 mg/dl (1.8-2.4); Potassium 3.5 mmol/L (3.5-5.1)
[2019-08-18] MEDS: FAMOTIDINE 20 MG TAB PO SCH ×2 (08:48→21:30)
[2019-08-18] MEDS: MULTIVITAMIN TAB PO SCH (08:48)
[2019-08-18] MEDS: allopurinoL 300 MG TAB PO SCH (08:48)
[2019-08-18] MEDS: SERTRALINE HCL 50 MG TABLET PO SCH (08:48)
[2019-08-18] MEDS: AMLODIPINE BESYLATE 5 MG TAB PO SCH (08:48)
[2019-08-18] MEDS: FLUTICASONE/VILANTEROL 200/25MCG 14 PUFFS/INHALER INH SCH (08:49)
[2019-08-18] MEDS: CHOLECALCIFEROL 1,000 UNITS 25 MCG TAB PO SCH (08:50)
[2019-08-18] MEDS: CLOTRIMAZOLE 1% CR 15 GM TUBE EXT SCH ×2 (08:50→21:38)
[2019-08-18] MEDS: DICLOFENAC SOD 1% GEL 100 GM TUBE EXT SCH ×2 (08:50→21:31)
[2019-08-18] MEDS: ROFLUMILAST 500 MCG TAB PO SCH (08:50)
[2019-08-18] MEDS: METOPROLOL SUCC 50MG EXT REL TAB PO SCH (08:50)
[2019-08-18] MEDS: UMECLIDINIUM BROMIDE 62.5MCG/BLISTER 7 PUFFS/INHALER INH SCH (08:50)
--- NOTE | 2019-08-18 17:11 | Hospitalist Progress Note ---
Date of Service August 18, 2019 Assessment & Plan (1) Right-sided back pain: This is a 69-year-old female with a PMH of COPD with chronic respiratory failure with hypoxia on 4 L NC O2, chronic diastolic heart failure, paroxysmal atrial fibrillation, iron deficiency anemia, CKD III/IV, spinal stenosis of lumbar region and other medical problems listed below who presents with worsening back pain for the past 5 days. -Worsening frequency and severity of right sided mid back pain x5 days -Evidence of degenerative changes to spine and subacute healing of fractured posterior right 10th rib on chest CTA -Considered pleuritic source of pain but no evidence of PE or pneumonia on chest CTA -Thoracic and lumbar spine MRI showed old multilevel vertebral fracture and minimal disc protrusion but nothing significant -Continue Tylenol and ibuprofen. Added tramadol as needed -Local diclofenac cream was added to control pain -She cannot take any patch due to allergy -PT/OT evaluation-doing better with physical therapy -Pain is much controlled and no radiation -We will continue current treatment (2) Heart failure, diastolic, with acute decompensation: Bibasilar crackles and worsening bilateral lower extremity edema on exam -Was resumed on Bumex during previous admission and has been taking 1 mg twice daily -Chest CTA with cardiomegaly with mild pulmonary edema -Given 40mg IV Lasix x 1. Strict intake and output, daily weights, low-sodium diet -Clinically no CHF -Continue home dose of Lasix -Denies any increasing shortness of breath and has been lying in bed without any shortness of breath (3) Abnormal abdominal CT scan: Question of minimal inflammatory change and a few prominent lymph nodes adjacent to the sigmoid colon with concern for developing acute diverticulitis -Patient has no correlating pain, is afebrile and has no leukocytosis -No indication for abx unless becomes febrile, develops symptoms -No signs or and/or symptoms of infection -Will not give any antibiotic -No more abdominal pain, nausea and/or vomiting (4) PAF (paroxysmal atrial fibrillation): Stable. Continue home dose toprol and propafenone 150 -Monitor on telemetry (5) EVONNE (iron deficiency anemia): History of chronic anemia with slight worsening from baseline with hgb of 7.6 (baseline low-mid 8s) -No other active bleeding is present -Iron levels were adequate a few weeks weeks ago -Daily CBC -hemoglobin dropped to 7.6 -We will monitor-hemoglobin is 8.2 as of 08/18/2019 (6) CKD (chronic kidney disease), stage III: At baseline. Continue to monitor (7) HTN (hypertension): Continue home amlodipine, toprol (8) COPD (chronic obstructive pulmonary disease): (9) Chronic respiratory failure with hypoxia: Compensated. Continue home Breo Ellipta, Daliresp, spiriva, albuterol neb PRN -At respiratory baseline on 4L [place] O2 (10) MRSA (methicillin resistant staph aureus) culture positive: Isolation precautions (11) Seborrheic dermatitis: Facial, near eyebrows. Lotrimin cream BID (12) SIMONA (obstructive sleep apnea): CPAP HS DVT Ppx: SCDs in setting of severe anemia Code status: FULL PCP: Nora Dispo: Observation med tele. Discharge planning, PT and OT consulted. Need to explore possibility of placement due to multiple recent admissions Likely to be discharged tomorrow Subjective 08/17/2019 The patient was seen and examined in medical floor She was admitted with acute back pain with radiating to back of the legs without any bladder and/or bowel abnormality Complains to have pain during examination Denies any significant problem with breathing 08/18/2019 Patient was seen and examined in medical floor She has been complaining of less pain at the back Did very well physical therapy Denies any significant shortness of breath and/or wheezing Review of Systems Review of Systems: All systems reviewed and are unremarkable except as noted below Musculoskeletal: Significant lower back pain with radiation to both legs up to the knee Physical Exam Physical Exam: Lying in bed comfortably Constitutional: well developed, well nourished, + acute distress (Back pain) and + obese Eyes: PERRL, conjunctivae normal, anicteric sclerae ENMT: external ear and nose normal, oropharynx normal Neck: trachea midline, no thyromegaly Respiratory: normal respiratory effort; no respiratory distress Auscultation: + diminished lung sounds and + wheezes (Minimal wheezing bilaterally) Cardiovascular: Rate/Rhythm: regular rate and regular rhythm Heart Sounds: no murmur Gastrointestinal (Abdomen): Inspection/Auscultation: abdomen normal to inspection and normal bowel sounds Percussion/Palpation: abdomen soft; abdomen nontender Musculoskeletal: Localized tenderness of the lower lumbar area has improved with local diclofenac cream Skin: Has skin tear at the vulval area Neurologic: moves all extremities; no focal motor deficits Lymphatic: no cervical or axillary lymphadenopathy Results & Data ([facility]) Vital Signs (Past 12 Hours) Vital Signs Temp Pulse Pulse Resp BP Pulse Ox 08/18/19 15:26 36.5 C 67 18 145/82 H 98 08/18/19 15:11 64 08/18/19 11:40 36.6 C 60 20 145/73 H 99 08/18/19 07:25 66 08/18/19 07:23 36.7 C 67 20 138/77 100 Laboratory Results Short CBC 08/18/19 Range/Units 06:33 WBC 10.47 (4.8-10.8) K/uL Hgb 8.2 L (12.0-16.0) g/dL Hct 26.6 L (37-47) % Plt Count 192 (130-400) K/uL BMP 08/18/19 06:33 Sodium 140 Potassium 3.5 Chloride 101 Carbon Dioxide 36 H BUN 38 H Creatinine 1.15 Glucose 89 Calcium 9.7 Medications Administered Current Inpatient Medications Acetaminophen (Tylenol) 1,000 mg PO Q8H PRN PRN Reason: Pain Stop: 09/15/19 17:59 Last Admin: 08/17/19 04:33 Dose: 1,000 mg Documented by: Albuterol (Ventolin 0.083% 2.5mg/3ml) 2.5 mg INH Q6H PRN PRN Reason: Shortness Of Breath Or Wheezin Stop: 09/15/19 14:21 All[facility] ([facility]oprim) [facility] Stop: 09/16/19 08:59 Last Admin: 08/18/19 08:48 Dose: 300 mg Documented by: Amlodipine Besylate (Norvasc) 5 mg PO QAM [facility] Stop: 09/16/19 08:59 Last Admin: 08/18/19 08:48 Dose: 5 mg Documented by: Atorvastatin Calcium (Lipitor) 20 mg PO QPM [facility] Stop: 09/15/19 20:59 Last Admin: 08/17/19 20:16 Dose: 20 mg Documented by: Clotrimazole (Lotrimin 1%) 1 appln EXT BID [facility] Stop: 09/15/19 14:21 Last Admin: 08/18/19 08:50 Dose: 1 appln Documented by: Diclofenac Sodium (Voltaren 1% Top) 4 gm EXT BID [facility] Stop: 09/16/19 12:44 Last Admin: 08/18/19 08:50 Dose: 4 gm Documented by: Famotidine (Pepcid) 20 mg PO BID [facility] Stop: 09/15/19 20:59 Last Admin: 08/18/19 08:48 Dose: 20 mg Documented by: Fluticasone/Vilanterol (Breo Ellipta 200/25 Mcg Inh) 1 puffs INH DAILY [facility] Stop: 09/16/19 08:59 Last Admin: 08/18/19 08:49 Dose: 1 puffs Documented by: Gabapentin (Neurontin) 300 mg PO HS [facility] Stop: 09/15/19 20:59 Last Admin: 08/17/19 20:16 Dose: 300 mg Documented by: Levothyroxine Sodium (Synthroid) 88 mcg PO DAILYBB [facility] Stop: 09/16/19 06:29 Last Admin: 08/18/19 05:43 Dose: 88 mcg Documented by: Metoprolol Succinate (Toprol Xl) 50 mg PO QAM [facility] Stop: 09/16/19 08:59 Last Admin: 08/18/19 08:50 Dose: 50 mg Documented by: Multivitamins (Multivitamin Tab) [facility] Stop: 09/16/19 08:59 Last Admin: 08/18/19 08:48 Dose: 1 tab Documented by: Ondansetron HCl (Zofran) 4 mg IV Q6H PRN PRN Reason: Nausea Stop: 09/15/19 14:21 Polyethylene Glycol (Miralax Powder Packet) 17 gm PO DAILY PRN PRN Reason: Constipation Stop: 09/15/19 14:21 Propafenone HCl (Rythmol) 150 mg PO Q8 [facility] Stop: 09/15/19 14:21 Last Admin: 08/18/19 14:25 Dose: 150 mg Documented by: Roflumilast (Daliresp) 500 mcg PO DAILY [facility] Stop: 09/16/19 08:59 Last Admin: 08/18/19 08:50 Dose: 500 mcg Documented by: Sertraline HCl (Zoloft) 25 mg PO QAM [facility] Stop: 09/16/19 08:59 Last Admin: 08/18/19 08:48 Dose: 25 mg Documented by: Tramadol HCl (Ultram) 50 mg PO Q4H PRN PRN Reason: Pain Stop: 09/15/19 13:57 Last Admin: 08/18/19 11:31 Dose: 50 mg Documented by: Umeclidinium [place] (Incruse Ellipta) 1 puffs INH DAILY [facility]; Protocol Stop: 09/16/19 08:59 Last Admin: 08/18/19 08:50 Dose: 1 puffs Documented by: Vitamin D (Vitamin D3) 2,000 units PO QAM [facility] Stop: 09/16/19 08:59 Last Admin: 08/18/19 08:50 Dose: 2,000 units Documented by:
[2019-08-18] MEDS: ATORVASTATIN 20 MG TAB PO SCH (21:30)
[2019-08-18] MEDS: GABAPENTIN 300 MG CAP PO SCH (21:30)
[2019-08-18 23:41] VITALS: O2SAT 100
[2019-08-19] MEDS: LEVOTHYROXINE SODIUM 88 MCG TABLET PO SCH (06:26)
[2019-08-19] MEDS: PROPAFENONE HCL 150 MG TABLET PO SCH ×2 (06:26→15:09)
[2019-08-19] MEDS: TRAMADOL HCL 50 MG TABLET PO PRN ×2 (06:26→15:07)
[2019-08-19 07:26] VITALS: TEMP 97.9
[2019-08-19] MEDS: CLOTRIMAZOLE 1% CR 15 GM TUBE EXT SCH (08:15)
[2019-08-19] MEDS: FLUTICASONE/VILANTEROL 200/25MCG 14 PUFFS/INHALER INH SCH (08:15)
[2019-08-19] MEDS: SERTRALINE HCL 50 MG TABLET PO SCH (08:16)
[2019-08-19] MEDS: METOPROLOL SUCC 50MG EXT REL TAB PO SCH (08:17)
[2019-08-19] MEDS: allopurinoL 300 MG TAB PO SCH (08:17)
[2019-08-19] MEDS: CHOLECALCIFEROL 1,000 UNITS 25 MCG TAB PO SCH (08:18)
[2019-08-19] MEDS: AMLODIPINE BESYLATE 5 MG TAB PO SCH (08:18)
[2019-08-19] MEDS: MULTIVITAMIN TAB PO SCH (08:19)
[2019-08-19] MEDS: FAMOTIDINE 20 MG TAB PO SCH (08:19)
[2019-08-19] MEDS: ROFLUMILAST 500 MCG TAB PO SCH (08:19)
[2019-08-19] MEDS: UMECLIDINIUM BROMIDE 62.5MCG/BLISTER 7 PUFFS/INHALER INH SCH (08:20)
[2019-08-19] MEDS: DICLOFENAC SOD 1% GEL 100 GM TUBE EXT SCH ×2 (08:21→08:25)
--- NOTE | 2019-08-19 13:03 | Hospitalist Progress Note ---
Date of Service August 19, 2019 Assessment & Plan (1) Right-sided back pain: This is a 69-year-old female with a PMH of COPD with chronic respiratory failure with hypoxia on 4 L NC O2, chronic diastolic heart failure, paroxysmal atrial fibrillation, iron deficiency anemia, CKD III/IV, spinal stenosis of lumbar region and other medical problems listed below who presents with worsening back pain for the past 5 days. -Worsening frequency and severity of right sided mid back pain x5 days -Evidence of degenerative changes to spine and subacute healing of fractured posterior right 10th rib on chest CTA -Considered pleuritic source of pain but no evidence of PE or pneumonia on chest CTA -Thoracic and lumbar spine MRI showed old multilevel vertebral fracture and minimal disc protrusion but nothing significant -Continue Tylenol and ibuprofen. Added tramadol as needed -Local diclofenac cream was added to control pain -She cannot take any patch due to allergy -PT/OT evaluation-doing better with physical therapy -Pain is much controlled and no radiation -We will continue current treatment -Clinically a lot better and denies any significant back pain and/or radiation -She has been ambulating well -Feels physically and mentally that she can go home this afternoon (2) Heart failure, diastolic, with acute decompensation: Bibasilar crackles and worsening bilateral lower extremity edema on exam -Was resumed on Bumex during previous admission and has been taking 1 mg twice daily -Chest CTA with cardiomegaly with mild pulmonary edema -Given 40mg IV Lasix x 1. Strict intake and output, daily weights, low-sodium diet -Clinically no CHF -Continue home dose of Lasix -Denies any increasing shortness of breath and has been lying in bed without any shortness of breath (3) Abnormal abdominal CT scan: Question of minimal inflammatory change and a few prominent lymph nodes adjacent to the sigmoid colon with concern for developing acute diverticulitis -Patient has no correlating pain, is afebrile and has no leukocytosis -No indication for abx unless becomes febrile, develops symptoms -No signs or and/or symptoms of infection -Will not give any antibiotic -No more abdominal pain, nausea and/or vomiting -Denies any more abdominal symptoms since admission (4) PAF (paroxysmal atrial fibrillation): Stable. Continue home dose toprol and propafenone 150 -Monitor on telemetry (5) EVONNE (iron deficiency anemia): History of chronic anemia with slight worsening from baseline with hgb of 7.6 (baseline low-mid 8s) -No other active bleeding is present -Iron levels were adequate a few weeks weeks ago -Daily CBC -hemoglobin dropped to 7.6 -We will monitor-hemoglobin is 8.2 as of 08/18/2019 (6) CKD (chronic kidney disease), stage III: At baseline. Continue to monitor (7) HTN (hypertension): Continue home amlodipine, toprol (8) COPD (chronic obstructive pulmonary disease): (9) Chronic respiratory failure with hypoxia: Compensated. Continue home Breo Ellipta, Daliresp, spiriva, albuterol neb PRN -At respiratory baseline on 4L NC O2 (10) MRSA (methicillin resistant staph aureus) culture positive: Isolation precautions (11) Seborrheic dermatitis: Facial, near eyebrows. Lotrimin cream BID (12) SIMONA (obstructive sleep apnea): CPAP HS DVT Ppx: SCDs in setting of severe anemia Code status: FULL PCP: Nora Dispo: Observation med tele. Discharge planning, PT and OT consulted. Need to explore possibility of placement due to multiple recent admissions Discharge this afternoon Subjective 08/17/2019 The patient was seen and examined in medical floor She was admitted with acute back pain with radiating to back of the legs without any bladder and/or bowel abnormality Complains to have pain during examination Denies any significant problem with breathing 08/18/2019 Patient was seen and examined in medical floor She has been complaining of less pain at the back Did very well physical therapy Denies any significant shortness of breath and/or wheezing 08/19/2019 The patient was seen and examined in the medical floor She has been feeling a lot better and her back pain is controlled She has been ambulating without any difficulty Wants to go home Review of Systems Review of Systems: All systems reviewed and are unremarkable except as noted below Musculoskeletal: Significant lower back pain with radiation to both legs up to the knee Physical Exam Physical Exam: Lying in bed comfortably Constitutional: well developed, well nourished, + acute distress (Back pain) and + obese Eyes: PERRL, conjunctivae normal, anicteric sclerae ENMT: external ear and nose normal, oropharynx normal Neck: trachea midline, no thyromegaly Respiratory: normal respiratory effort; no respiratory distress Auscultation: + diminished lung sounds and + wheezes (Minimal wheezing bilaterally) Cardiovascular: Rate/Rhythm: regular rate and regular rhythm Heart Sounds: no murmur Gastrointestinal (Abdomen): Inspection/Auscultation: abdomen normal to inspection and normal bowel sounds Percussion/Palpation: abdomen soft; abdomen nontender Musculoskeletal: Denies any significant back pain and there is no radiation of pain Neurologic: moves all extremities; no focal motor deficits Alert, awake and oriented x3. No focal sensory and/or motor deficit appreciated Lymphatic: no cervical or axillary lymphadenopathy Results & Data ([facility]) Vital Signs (Past 12 Hours) Vital Signs Temp Pulse Resp BP Pulse Ox 08/19/19 07:25 36.6 C 68 18 172/84 H 100 08/19/19 06:28 74 171/75 H Medications Administered Current Inpatient Medications Acetaminophen (Tylenol) 1,000 mg PO Q8H PRN PRN Reason: Pain Stop: 09/15/19 17:59 Last Admin: 08/17/19 04:33 Dose: 1,000 mg Documented by: Albuterol (Ventolin 0.083% 2.5mg/3ml) 2.5 mg INH Q6H PRN PRN Reason: Shortness Of Breath Or Wheezin Stop: 09/15/19 14:21 Allopurinol (Zyloprim) 300 mg PO QAM [facility] Stop: 09/16/19 08:59 Last Admin: 08/19/19 08:17 Dose: 300 mg Documented by: Amlodipine Besylate (Norvasc) 5 mg PO QAM [facility] Stop: 09/16/19 08:59 Last Admin: 08/19/19 08:18 Dose: 5 mg Documented by: Atorvastatin Calcium (Lipitor) 20 mg PO QPM [facility] Stop: 09/15/19 20:59 Last Admin: 08/18/19 21:30 Dose: 20 mg Documented by: Clotrimazole (Lotrimin 1%) 1 appln EXT BID [facility] Stop: 09/15/19 14:21 Last Admin: 08/19/19 08:15 Dose: 1 appln Documented by: Diclofenac Sodium (Voltaren 1% Top) 4 gm EXT BID [facility] Stop: 09/16/19 12:44 Last Admin: 08/19/19 08:25 Dose: Not Given Documented by: Famotidine (Pepcid) 20 mg PO BID [facility] Stop: 09/15/19 20:59 Last Admin: 08/19/19 08:19 Dose: 20 mg Documented by: Fluticasone/Vilanterol (Breo Ellipta 200/25 Mcg Inh) 1 puffs INH DAILY [facility] Stop: 09/16/19 08:59 Last Admin: 08/19/19 08:15 Dose: 1 puffs Documented by: Gabapentin (Neurontin) 300 mg PO HS [facility] Stop: 09/15/19 20:59 Last Admin: 08/18/19 21:30 Dose: 300 mg Documented by: Levothyroxine Sodium (Synthroid) 88 mcg PO DAILYBB [facility] Stop: 09/16/19 06:29 Last Admin: 08/19/19 06:26 Dose: 88 mcg Documented by: Metoprolol Succinate (Toprol Xl) 50 mg PO QAM [facility] Stop: 09/16/19 08:59 Last Admin: 08/19/19 08:17 Dose: 50 mg Documented by: [facility]ivit[facility] ([facility]itamin Tab) [facility] Stop: 09/16/19 08:59 Last Admin: 08/19/19 08:19 Dose: 1 tab Documented by: Ondansetron HCl (Zofran) 4 mg IV Q6H PRN PRN Reason: Nausea Stop: 09/15/19 14:21 Polyethylene Glycol (Miralax Powder Packet) 17 gm PO DAILY PRN PRN Reason: Constipation Stop: 09/15/19 14:21 Propafenone HCl (Rythmol) 150 mg PO Q8 [facility] Stop: 09/15/19 14:21 Last Admin: 08/19/19 06:26 Dose: 150 mg Documented by: Roflumilast (Daliresp) 500 mcg PO DAILY [facility] Stop: 09/16/19 08:59 Last Admin: 08/19/19 08:19 Dose: 500 mcg Documented by: Sertraline HCl (Zoloft) 25 mg PO QAM [facility] Stop: 09/16/19 08:59 Last Admin: 08/19/19 08:16 Dose: 25 mg Documented by: Tramadol HCl (Ultram) 50 mg PO Q4H PRN PRN Reason: Pain Stop: 09/15/19 13:57 Last Admin: 08/19/19 06:26 Dose: 50 mg Documented by: Umeclidinium Nitro (Incruse Ellipta) 1 puffs INH DAILY [facility]; Protocol Stop: 09/16/19 08:59 Last Admin: 08/19/19 08:20 Dose: 1 puffs Documented by: Vitamin D (Vitamin D3) 2,000 [facility] Stop: 09/16/19 08:59 Last Admin: 08/19/19 08:18 Dose: 2,000 units Documented by:
[2019-08-19 14:43] VITALS: BP 145/72; PULSE 78
--- NOTE | 2019-08-19 18:20 | Discharge Summary ---
Date of Service August 19, 2019 Admission HPI Per Admitting Provider This is a 69-year-old female with a PMH of COPD with chronic respiratory failure with hypoxia on 4 L NC O2, chronic diastolic heart failure, paroxysmal atrial fibrillation, iron deficiency anemia, CKD III/IV, spinal stenosis of lumbar region and other medical problems listed below who presents with worsening back pain for the past 5 days. This is patient's fourth admission since April and was here most recently from for leg pain and possible mild CHF exacerbation. Was noted to have right lower leg hematoma and some increased edema due to recently being taken off diuretics. Bumex was restarted prior to discharge. Was also noted to have right upper back pain that waxed and waned with limited improvement on lidocaine patch. Since discharge home, patient states that back pain has worsened in severity and frequency. Pain is in right mid back and is made worse when lying down flat with radiation down posterior side of both legs. Is able to ambulate with walker at baseline. Denies any bowel or bladder incontinence or numbness of saddle region. Endorses new bladder fullness and intermittent difficulty with voiding but denies any dysuria or hematuria. Has been taking Bumex as scheduled but states she is has increased lower extremity edema since discharge. Denies any fever or chills. No lightheadedness, headache, visual changes or cough. Respiratory status is at baseline on 4 L nasal cannula O2. Denies any chest pain, palpitations, shortness of breath, nausea, vomiting, abdominal pain, diarrhea or constipation. Lives with daughter, who manages patient's home medications. Admission Exam Per Admitting Provider Physical Exam: General Appearance: WD/WN, vitals as above, NAD, lying in bed, pleasant, conversing easily Head: normocephalic, atraumatic Eyes: normal inspection, PERRL, conjunctivae normal, anicteric sclerae ENT: external ear and nose normal, oropharynx normal Neck: trachea midline, no thyromegaly normal visual inspection Respiratory: normal respiratory effort, bibasilar rales, no wheezes or rhonchi. Normal insp/exp effort, no accessory muscle use on baseline 4L NC O2 Cardiovascular: regular rate, rhythm, no murmur, normal peripheral pulses, 2+ BLE edema. Vessels: + JVD Chest: normal inspection of chest Abdomen/GI: normal bowel sounds, soft, nontender, no hepatosplenomegaly Extremities/Musculoskelatal: Back with TTP of R-mid back. No tenderness of vertebral processes or deformities note. No cyanosis or clubbing, extremities motor strength 5/5 Neurologic: PERRL, EOMI, accommodation nl, no face palsy, no dysarthria, CN's II-XI intact bilaterally and moves all extremities Psychiatric: A+Ox3, euthymic affect Skin: erythematous skin with overlying yellow crusting around eyebrows, normal color, warm/dry Principal Diagnosis Severe back pain-resolved, COPD, compensated CHF Discharge Exam Constitutional well developed, well nourished, + acute distress (Back pain) and + obese Eyes PERRL, conjunctivae normal, anicteric sclerae ENMT external ear and nose normal, oropharynx normal Neck trachea midline, no thyromegaly Respiratory normal respiratory effort; no respiratory distress Auscultation: + diminished lung sounds and + wheezes (Minimal wheezing bilaterally) Cardiovascular Rate/Rhythm: regular rate and regular rhythm Heart Sounds: no murmur Gastrointestinal (Abdomen) Inspection/Auscultation: abdomen normal to inspection and normal bowel sounds Percussion/Palpation: abdomen soft; abdomen nontender Neurologic moves all extremities; no focal motor deficits Lymphatic no cervical or axillary lymphadenopathy Discharge Data Allergies Allergy/AdvReac Type Severity Reaction Status Date / Time adhesive Allergy Severe RED RASH Verified 08/16/19 10:17 latex AdvReac Mild TAPE-SORE Verified 08/16/19 10:17 morphine AdvReac Mild DELUSIONS Verified 08/16/19 10:17 Consultations 08/16/19 12:48 ED Decision to Admit Stat 08/16/19 14:22 Consult Case Management - Discharge Planning Routine 08/19/19 13:04 Consult Case Management - Discharge Planning Routine Ordered Studies 08/16/19 10:25 CT abd pelvis IV con only Stat 08/16/19 10:26 CT angio chest PE protocol Stat 08/16/19 13:44 MR lumbar spine wo con Routine MR thoracic spine wo con Routine Hospital Course (1) Right-sided back pain: This is a 69-year-old female with a PMH of COPD with chronic respiratory failure with hypoxia on 4 L NC O2, chronic diastolic heart failure, paroxysmal atrial fibrillation, iron deficiency anemia, CKD III/IV, spinal stenosis of lumbar region and other medical problems listed below who presents with worsening back pain for the past 5 days. -Worsening frequency and severity of right sided mid back pain x5 days -Evidence of degenerative changes to spine and subacute healing of fractured posterior right 10th rib on chest CTA -Considered pleuritic source of pain but no evidence of PE or pneumonia on chest CTA -Thoracic and lumbar spine MRI showed old multilevel vertebral fracture and minimal disc protrusion but nothing significant -Continue Tylenol and ibuprofen. Added tramadol as needed -Local diclofenac cream was added to control pain -She cannot take any patch due to allergy -PT/OT evaluation-doing better with physical therapy -Pain is much controlled and no radiation -We will continue current treatment -Clinically a lot better and denies any significant back pain and/or radiation -She has been ambulating well -Feels physically and mentally that she can go home this afternoon (2) Heart failure, diastolic, with acute decompensation: Bibasilar crackles and worsening bilateral lower extremity edema on exam -Was resumed on Bumex during previous admission and has been taking 1 mg twice daily -Chest CTA with cardiomegaly with mild pulmonary edema -Given 40mg IV Lasix x 1. Strict intake and output, daily weights, low-sodium diet -Clinically no CHF -Continue home dose of Lasix -Denies any increasing shortness of breath and has been lying in bed without any shortness of breath (3) Abnormal abdominal CT scan: Question of minimal inflammatory change and a few prominent lymph nodes adjacent to the sigmoid colon with concern for developing acute diverticulitis -Patient has no correlating pain, is afebrile and has no leukocytosis -No indication for abx unless becomes febrile, develops symptoms -No signs or and/or symptoms of infection -Will not give any antibiotic -No more abdominal pain, nausea and/or vomiting -Denies any more abdominal symptoms since admission (4) PAF (paroxysmal atrial fibrillation): Stable. Continue home dose toprol and propafenone 150 -Monitor on telemetry (5) EVONNE (iron deficiency anemia): History of chronic anemia with slight worsening from baseline with hgb of 7.6 (baseline low-mid 8s) -No other active bleeding is present -Iron levels were adequate a few weeks weeks ago -Daily CBC -hemoglobin dropped to 7.6 -We will monitor-hemoglobin is 8.2 as of 08/18/2019 (6) CKD (chronic kidney disease), stage III: At baseline. Continue to monitor (7) HTN (hypertension): Continue home amlodipine, toprol (8) COPD (chronic obstructive pulmonary disease): (9) Chronic respiratory failure with hypoxia: Compensated. Continue home Breo Ellipta, Daliresp, spiriva, albuterol neb PRN -At respiratory baseline on 4L NC O2 (10) MRSA (methicillin resistant staph aureus) culture positive: Isolation precautions (11) Seborrheic dermatitis: Facial, near eyebrows. Lotrimin cream BID (12) SIMONA (obstructive sleep apnea): CPAP HS DVT Ppx: SCDs in setting of severe anemia Code status: FULL PCP: Nora Dispo: Observation med tele. Discharge planning, PT and OT consulted. Need to explore possibility of placement due to multiple recent admissions Discharge this afternoon Total Time Total Time Spent Total Time Spent (In Minutes): 35 minutes Total Time Includes: Examination of the Patient, Discharge Planning, Medication Reconciliation and Communication With Other Providers Discharge Plan Discharge Items Patient Disposition: Home - Home Health Services Reason For Visit: SEVERE BACK PAIN, CHF, COPD Discharge Diagnosis: Severe back pain-resolved, COPD, compensated CHF Condition on Discharge: Fair Activity: Resume your previous activity Non-emergency contact: Primary Care Provider Call non-emergency contact if: you have any medication questions and your symptoms worsen Follow-up/Referrals: Babak Melendez MD [Primary Care Provider] - 08/23/19 11:00 am (Follow up apt made 08/18/2019 @ 16:09. JLR) Diet: Heart Healthy and Low Sodium (2gm) Addtl Attending Provider Instructions: Please take precaution to avoid fall Pending Studies at Discharge: No Stand-Alone Forms: My [facility], Smoking Cessation Medications and DC Order Prescriptions: New diclofenac sodium [Voltaren] 1 % Gel 4 g EXT BID Qty: 100 RF: 0 tramadol 50 mg Tablet 50 mg PO Q4H PRN (Reason: pain) Qty: 20 RF: 0 Continued Breo Ellipta 200-25 mcg/dose Blister With Device 1 inh INHALATION DAILY RF: 0 multivitamin Tablet 1 tab PO QAM RF: 0 propafenone 150 mg Tablet 150 mg PO Q8H RF: 0 gabapentin 600 mg Tablet 300 mg PO HS RF: 0 atorvastatin 20 mg Tablet 20 mg PO QPM RF: 0 metoprolol succinate 50 mg Tablet Extended Release 24 Hr 50 mg PO QAM RF: 0 levothyroxine 88 mcg Tablet 88 mcg PO DAILYBB RF: 0 ranitidine HCl 150 mg Tablet 150 mg PO BID RF: 0 sertraline [Zoloft] 25 mg Tablet 25 mg PO QAM RF: 0 allopurinol 300 mg Tablet 300 mg PO QAM RF: 0 cholecalciferol (vitamin D3) [Vitamin D3] 2,000 unit Tablet 2,000 unit PO QAM RF: 0 Daliresp 500 mcg Tablet 500 mcg PO DAILY RF: 0 albuterol sulfate 2.5 mg /3 mL (0.083 %) Solution For Nebulization 2.5 mg INHALATION Q6 PRN (Reason: Shortness Of Breath Or Wheezing) RF: 0 Spiriva with HandiHaler 18 mcg capsule, w/inhalation device 1 cap INH DAILY Qty: 30 RF: 3 bumetanide 1 mg Tablet 1 mg PO [id number] Qty: 60 RF: 1 amlodipine [Norvasc] 5 mg Tablet 5 mg PO QAM Qty: 30 RF: 1 ibuprofen 600 mg tablet 600 mg PO TID PRN (Reason: pain) Qty: 30 RF: 0 Discharge Orders: Discharge Order (Routine); Ordered 08/19/19 Ordered By: Ruth Thomas Admission Data Admit Date/Time: 08/18/19 13:19 Attending Provider: Ruth Thomas Admit Provider: Brett Mares Primary Care Provider: Babak Melendez Other Providers: Brett Mares Other Interventions: Discharge Summary Assessment (RN) Last Done: 08/19/19 14:39 DC Date/Time DO NOT enter until pt leaves facility: 08/19/19 16:42
[2019-08-21 06:54] LABS: Albumin 3.2 g/dL (3.8-4.8); Alpha 1 Globulin 0.4 g/dL (0.2-0.3); Beta-1-Globulin 0.4 g/dL (0.4-0.6); Beta-2-Globulin 0.5 g/dL (0.2-0.5); Monoclonal Protein Band 1 DNR g/dL (NONE DETECTED); Monoclonal Protein Band 2 DNR g/dL (NONE DETECTED); Monoclonal Protein Band 3 DNR g/dL (NONE DETECTED); Total Protein 6.5 g/dL (6.1-8.1)
== END 2019-08-19 16:42 | disposition home health service (06) | DRG 551 ==
LOC: 2W 08:49 → ED 08:49 → SUATTDRO 12:55 → 2W 13:39
DX: Z88.5 Allergy status to narcotic agent; M54.5 Low back pain; I50.33 Acute on chronic diastolic (congestive) heart failure; Z79.51 Long term (current) use of inhaled steroids; Z79.890 Hormone replacement therapy; Z99.81 Dependence on supplemental oxygen; D50.9 Iron deficiency anemia, unspecified; J44.9 Chronic obstructive pulmonary disease, unspecified; L21.9 Seborrheic dermatitis, unspecified; R93.3 Abnormal findings on diagnostic imaging of other parts of digestive tract; I13.0 Hypertensive heart and chronic kidney disease with heart failure and stage 1 through stage 4 chronic kidney disease, or unspecified chronic kidney disease; Z99.89 Dependence on other enabling machines and devices; Z22.322 Carrier or suspected carrier of Methicillin resistant Staphylococcus aureus; G47.33 Obstructive sleep apnea (adult) (pediatric); Z79.899 Other long term (current) drug therapy; N18.3 Chronic kidney disease, stage 3 (moderate); N28.89 Other specified disorders of kidney and ureter; Z87.891 Personal history of nicotine dependence; J96.11 Chronic respiratory failure with hypoxia; Z91.040 Latex allergy status; I48.0 Paroxysmal atrial fibrillation; Z91.048 Other nonmedicinal substance allergy status

== ENCOUNTER 2019-09-27 21:14 | Inpatient (IN) ==
[2019-09-27] MEDS ORDERED: cefTRIAXone SODIUM 1,000 MG/50 ML BAG IV STA (21:26)
[2019-09-27] MEDS ORDERED: methylPREDNISolone 125 MG/2 ML VIAL IV STA (21:26)
[2019-09-27] MEDS ORDERED: ALBUT/IPRATROP 3MG/0.5MG NEB 3 ML VIAL INH STA (21:26)
[2019-09-27 21:34] LABS: Basophils # (auto) 0.01 K/uL (0-0.2); Basophils % (auto) 0.1 %; Hematocrit (blood only) 34.5 % (37-47); Hemoglobin 10.5 g/dL (12.0-16.0); Immature Granulocytes # (auto) 0.03 K/uL (0.00-0.02); Immature Granulocytes % (auto) 0.3 %; Lymphocytes # (auto) 1.25 K/uL (1.2-3.4); Lymphocytes % (auto) 12.5 %; Mean Corpuscular Hemoglobin 30.1 pg (25-34); Mean Corpuscular Hgb Conc 30.4 g/dL (32-36); Mean Corpuscular Volume 98.9 fL (80-100); Mean Platelet Volume 9.7 fL (7.4-10.4); Monocytes # (auto) 1.06 K/uL (0.11-0.59); Monocytes % (auto) 10.6 %; Neutrophils # (auto) 7.66 K/uL (1.4-6.5); Neutrophils % (auto) 76.5 %; Platelet Count 208 K/uL (130-400); RDW Coefficient of Variation 14.6 % (11.5-14.5); RDW Standard Deviation 52.7 fL (36.4-46.3); Red Blood Count 3.49 M/uL (4.2-5.4); White Blood Count 10.01 K/uL (4.8-10.8)
[2019-09-27 21:56] LABS: INR 1.1 (0.9-1.1); Partial Thromboplastin Ratio 0.8; Partial Thromboplastin Time 21.6 Seconds (21.0-31.0); Prothrombin Time 11.4 Seconds (9.0-12.0)
--- NOTE | 2019-09-27 21:58 | XRay Report ---
XR chest 1V portable HISTORY: 69 years-old Female Dyspnea acute shortness of breath COMPARISON: CTA chest and chest radiograph studies 08/16/2019 TECHNIQUE: Portable AP view of the chest FINDINGS: Cardiac silhouette is enlarged. Calcified plaque the thoracic aortic arch. No overt pulmonary edema. Mild interstitial coarsening is likely chronic. Emphysema Ill-defined left basilar opacities. No pneu mothorax. Degenerative changes of the spine and left shoulder. Right shoulder total joint arthroplast y. IMPRESSION: 1. Cardiomegaly without overt pulmonary edema. 2. Emphysema with chronic interstitial coarsening. 3. Left lung base opacities suggest atelectasis/scarring. Pneumonitis considered less likely. ACT 112: Negative or not required by law. The above report was generated using voice recognition software. It may contain grammatical, syntax o r spelling errors. Electronically signed by: Ariel Shah M.D. 09/27/2019 9:56 PM
[2019-09-27 22:04] LABS: Alanine Aminotransferase 13 U/L (12-78); Albumin Globulin Ratio 0.6 (0.9-2); Albumin Level 3.2 gm/dl (3.4-5.0); Alkaline Phosphatase 94 U/L (45-117); Aspartate Aminotransferase 15 U/L (15-37); Bilirubin,Total 0.2 mg/dl (0.2-1); Blood Urea Nitrogen 31 mg/dl (7-18); Calcium 9.9 mg/dl (8.5-10.1); Carbon Dioxide 42 mmol/L (21-32); Chloride 95 mmol/L (98-107); Creatinine Clr Calc Pharmacy 47.7 ml/min; Est GFR (African American) 50.6; Est GFR (Non-African American) 43.7; Globulin 5.3 gm/dl (2.5-4.0); Glucose 116 mg/dl (70-99); Potassium 4.6 mmol/L (3.5-5.1); Sodium 138 mmol/L (136-145); Total Protein 8.5 gm/dl (6.4-8.2); Troponin I < 0.015 ng/ml (0-0.045)
[2019-09-27 22:09] LABS: Influenza A virus by PCR Neg for Influ A (Neg); Influenza B virus by PCR Neg for Influ B (Neg)
[2019-09-27 22:18] LABS: Base Excess VBG 14.3 mEq/L; Oxygen Saturation VBG 72.2 %; pH VBG 7.38 (7.36-7.41)
--- NOTE | 2019-09-27 23:06 | Emergency Department Note ---
History of Present Illness General Chief complaint: Shortness of Breath/Dyspnea Stated complaint: BREATHING DIFF Time Seen by Provider: 09/27/19 21:16 Source: patient Mode of arrival: EMS Limitations: physical limitation History of Present Illness Provider complaint: Breathing difficulty and cough Onset (ago): day(s) 2 Location: chest Radiation: non-radiation Severity: moderate Pain Consistency: + constant Relieved By: + none Exacerbated By: + none Associated symptoms: + cough (Productive yellow sputum), + weakness and + other (Achiness) Treatments prior to arrival: other (The patient was placed on prednisone, antibiotics and nebulizers 2 days ago by her PCP.) This is a 69-year-old female who presents to the ED with a chief complaint of a cough productive of yellow sputum, achiness and chills as well as weakness and shortness of breath. The patient has a history of COPD. She states that her symptoms started a week ago and she was started on prednisone, antibiotics and inhalers 2 days ago by her PCP. She chronically uses 4 L of oxygen at home. Home Medications Home Medications Medication Instructions Recorded Confirmed Type Breo Ellipta 1 inh INHALATION DAILY 03/12/18 09/27/19 History Daliresp 500 mcg PO DAILY 03/12/18 09/27/19 History allopurinol 300 mg PO QAM 03/12/18 09/27/19 History atorvastatin 20 mg PO QPM 03/12/18 09/27/19 History cholecalciferol (vitamin D3) 2,000 unit PO QAM 03/12/18 09/27/19 History [Vitamin D3] gabapentin 300 mg PO HS 03/12/18 09/27/19 History levothyroxine 88 mcg PO DAILYBB 03/12/18 09/27/19 History metoprolol succinate 50 mg PO QAM 03/12/18 09/27/19 History multivitamin 1 tab PO QAM 03/12/18 09/27/19 History propafenone 150 mg PO Q8H 03/12/18 09/27/19 History ranitidine HCl 150 mg PO BID 03/12/18 09/27/19 History sertraline [Zoloft] 25 mg PO QAM 03/12/18 09/27/19 History albuterol sulfate 2.5 mg INHALATION Q6 PRN 08/07/18 09/27/19 History Spiriva with HandiHaler 1 cap INH DAILY #30 puffs 08/03/19 09/27/19 Rx amlodipine [Norvasc] 5 mg PO QAM #30 tab 08/11/19 09/27/19 Rx bumetanide 1 mg PO BID17 #60 tab 08/11/19 09/27/19 Rx ibuprofen 600 mg PO TID PRN #30 tab 08/11/19 09/27/19 Rx tramadol 50 mg PO Q4H PRN #20 tab 08/19/19 09/27/19 Rx diclofenac sodium [Voltaren] 4 g EXT QID 09/27/19 09/27/19 History doxycycline hyclate 100 mg PO BID 09/27/19 09/27/19 History potassium chloride [Klor-Con M20] 20 meq PO Q OTHER DAY 09/27/19 09/27/19 History prednisone 10 mg PO .TAPER UD 09/27/19 09/27/19 History Allergies Allergy/AdvReac Type Severity Reaction Status Date / Time adhesive Allergy Severe RED RASH Verified 09/27/19 22:37 latex AdvReac Mild TAPE-SORE Verified 09/27/19 22:37 morphine AdvReac Mild DELUSIONS Verified 09/27/19 22:37 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) Hx of cholecystectomy (Chronic) S/P cervical spinal fusion (Chronic) S/P wrist surgery (Chronic) Family History Father Trauma Mother Diabetes Cerebral aneurysm Daughter Bipolar 1 disorder Social History Preferred Language: Ghanaian Communication Ability: Effective 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 Beliefs That Will Affect Care: None marital status: Current Living Situation: Family Current Living Situation Comment: lives with daughter Feels Safe at Home: Yes Smoking Status: Former smoker Tobacco Type: cigarettes ; Cigarettes Per Day: 2 packs ; Second Hand Exposure: No ; Hx Alcohol Use: No Hx Substance Use: No Review of Systems A total of 10 systems reviewed and were otherwise negative Physical Exam Vital Signs Vital Signs - 24 hr 09/27/19 21:21 09/27/19 21:23 09/27/19 21:24 Temperature 37.4 C Temperature Source Oral Pulse Rate 75 74 72 Pulse Rate [Apical] Pulse Rate from SpO2 Sensor 76 75 72 Pulse Rhythm Regular Pulse Strength Normal Respiratory Rate 20 26 H 23 Respiratory Effort / Characteristics Non-Labored Spontaneous Respiratory Depth Normal Respiratory Pattern Regular Blood Pressure 143/123 H 189/76 H Blood Pressure Mean 138 102 Blood Pressure Position Lying Pulse Oximetry 97 96 98 Oxygen Delivery Method Room Air Oxygen Flow Rate 3 Sepsis Recent Fever Within 48 Hours No Sepsis New/Unexplained Change in Mental Status No Sepsis Action Taken by Nursing No Action Required Oxygen Flow Rate - Titration 3 Pulse Oximetry Post Tiitration 96 09/27/19 21:30 09/27/19 21:39 09/27/19 21:40 Temperature Temperature Source Pulse Rate 72 75 Pulse Rate [Apical] 68 Pulse Rate from SpO2 Sensor 71 70 Pulse Rhythm Pulse Strength Respiratory Rate 23 24 17 Respiratory Effort / Characteristics Spontaneous Respiratory Depth Respiratory Pattern Blood Pressure 170/73 H Blood Pressure Mean 101 Blood Pressure Position Pulse Oximetry 96 96 95 Oxygen Delivery Method Nasal Cannula Oxygen Flow Rate 3 Sepsis Recent Fever Within 48 Hours Sepsis New/Unexplained Change in Mental Status Sepsis Action Taken by Nursing Oxygen Flow Rate - Titration Pulse Oximetry Post Tiitration 09/27/19 21:50 09/27/19 22:00 09/27/19 22:10 Temperature Temperature Source Pulse Rate 66 67 66 Pulse Rate [Apical] Pulse Rate from SpO2 Sensor 66 68 66 Pulse Rhythm Pulse Strength Respiratory Rate 21 25 H 21 Respiratory Effort / Characteristics Respiratory Depth Respiratory Pattern Blood Pressure Blood Pressure Mean Blood Pressure Position Pulse Oximetry 96 93 94 Oxygen Delivery Method Oxygen Flow Rate Sepsis Recent Fever Within 48 Hours Sepsis New/Unexplained Change in Mental Status Sepsis Action Taken by Nursing Oxygen Flow Rate - Titration Pulse Oximetry Post Tiitration 09/27/19 22:18 09/27/19 22:20 03/18/20 22:30 Temperature Temperature Source Pulse Rate 65 67 64 Pulse Rate [Apical] Pulse Rate from SpO2 Sensor 64 67 64 Pulse Rhythm Pulse Strength Respiratory Rate 19 19 21 Respiratory Effort / Characteristics Respiratory Depth Respiratory Pattern Blood Pressure 169/64 H 173/85 H Blood Pressure Mean 122 93 Blood Pressure Position Pulse Oximetry 95 94 93 Oxygen Delivery Method Oxygen Flow Rate Sepsis Recent Fever Within 48 Hours Sepsis New/Unexplained Change in Mental Status Sepsis Action Taken by Nursing Oxygen Flow Rate - Titration Pulse Oximetry Post Tiitration 09/27/19 22:40 Temperature Temperature Source Pulse Rate 65 Pulse Rate [Apical] Pulse Rate from SpO2 Sensor 65 Pulse Rhythm Pulse Strength Respiratory Rate 21 Respiratory Effort / Characteristics Respiratory Depth Respiratory Pattern Blood Pressure Blood Pressure Mean Blood Pressure Position Pulse Oximetry 94 Oxygen Delivery Method Oxygen Flow Rate Sepsis Recent Fever Within 48 Hours Sepsis New/Unexplained Change in Mental Status Sepsis Action Taken by Nursing Oxygen Flow Rate - Titration Pulse Oximetry Post Tiitration CONSTITUTIONAL/VITAL SIGNS: Reviewed / noted above. GENERAL: Non-toxic in appearance. INTEGUMENTARY: Warm, dry, and [place]. HEAD: Normocephalic. EYES: without scleral icterus or trauma. ENT/OROPHARYNX: clear and moist. LYMPHADENOPATHY/NECK: Is supple without lymphadenopathy or meningismus. RESPIRATORY: Lungs reveal scattered wheezes and rhonchi bilaterally. She has mild increased work of breathing. CARDIOVASCULAR: Regular rate and rhythm. GI/ABDOMEN: Soft and nontender. No organomegaly or pulsatile mass. No rebound or guarding. Normal bowel sounds. EXTREMITIES: Warm and well perfused. BACK: No CVA tenderness. NEUROLOGICAL: Intact without focal deficits. PSYCHIATRIC: normal affect. MUSCULOSKELETAL: Normally developed with good muscle tone. TRIAGE NURSING DOCUMENTATION REVIEWED. Course Administered Medications Discontinued Medications Albuterol (Duoneb) 3 ml INH NOW STA Stop: 09/27/19 21:27 Last Admin: 09/27/19 21:37 Dose: 3 ml Documented by: [id number] Ceftriaxone Sodium (Rocephin) 1,000 mg in 50 mls @ 100 mls/hr IV NOW STA Stop: 09/27/19 21:55 Last Infusion: 09/27/19 22:20 Dose: 0 mls/hr Documented by: [id number] Admin: 09/27/19 21:51 Dose: 100 mls/hr Documented by: [id number] Methylprednisolone (Solumedrol) 125 mg IV NOW STA Stop: 09/27/19 21:27 Last Admin: 09/27/19 21:51 Dose: 125 mg Documented by: [id number] Medical Decision Making Differential Diagnosis The differential was considered includes acute myocardial infarction, acute coronary syndrome, myocarditis, pericarditis, pericardial effusions /tamponad, esophageal perforation, pulmonary embolism, pneumonia, pneumothorax, cardiomyopathy, congestive heart, anemia , COPD/asthma exacerbation. Medical Records Attestation: I reviewed the patient's medical records. Home Medications Current Medication List: was personally reviewed by me Laboratory Data Attestation: I reviewed the patient's lab results. Result diagrams: 09/27/19 21:22 09/27/19 21:22 Lab Results 09/27/19 09/27/19 09/27/19 Range/Units 21:22 21:22 21:22 WBC 10.01 (4.8-10.8) K/uL RBC 3.49 L (4.2-5.4) M/uL Hgb 10.5 L (12.0-16.0) g/dL Hct 34.5 L (37-47) % MCV 98.9 (80-100) fL MCH 30.1 (25-34) pg MCHC 30.4 L (32-36) g/dL RDW Std Deviation 52.7 H (36.4-46.3) fL RDW Coeff of Arabella 14.6 H (11.5-14.5) % Plt Count 208 (130-400) K/uL MPV 9.7 (7.4-10.4) fL Immature Gran % (Auto) 0.3 % Neut % (Auto) 76.5 % Lymph % (Auto) 12.5 % [place] % (Auto) 10.6 % Eos % (Auto) 0.0 % Baso % (Auto) 0.1 % Immature Gran # (Auto) 0.03 H (0.00-0.02) K/uL Neut # (Auto) 7.66 H (1.4-6.5) K/uL Lymph # (Auto) 1.25 (1.2-3.4) K/uL [place] # (Auto) 1.06 H (0.11-0.59) K/uL Eos # (Auto) 0.00 (0-0.5) K/uL Baso # (Auto) 0.01 (0-0.2) K/uL PT 11.4 (9.0-12.0) Seconds INR 1.1 (0.9-1.1) APTT 21.6 (21.0-31.0) Seconds PTT Ratio 0.8 VBG pH (7.36-7.41) VBG pCO2 (38-50) mmHg VBG pO2 mmHg VBG HCO3 mmol/L VBG O2 Saturation % VBG Base Excess mEq/L Barometric Pressure mm/Hg Sodium 138 (136-145) mmol/L Potassium 4.6 (3.5-5.1) mmol/L Chloride 95 L (98-107) mmol/L Carbon Dioxide 42 H* (21-32) mmol/L Anion Gap 1.0 L (3-11) BUN 31 H (7-18) mg/dl Creatinine 1.24 H (0.6-1.2) mg/dl Est Cr Clr Drug Dosing 47.7 ml/min Est GFR ( Amer) 50.6 Est GFR (Non-Af Amer) 43.7 BUN/Creatinine Ratio 25.0 H (10-20) Glucose 116 H (70-99) mg/dl Calcium 9.9 (8.5-10.1) mg/dl Total Bilirubin 0.2 (0.2-1) mg/dl AST 15 (15-37) U/L ALT 13 (12-78) U/L Alkaline Phosphatase 94 (45-117) U/L Troponin I < 0.015 (0-0.045) ng/ml Total Protein 8.5 H (6.4-8.2) gm/dl Albumin 3.2 L (3.4-5.0) gm/dl Globulin 5.3 H (2.5-4.0) gm/dl Albumin/Globulin Ratio 0.6 L (0.9-2) Specimen Hemolysis Influenza Type A (PCR) (Neg) Influenza Type B (PCR) (Neg) 09/27/19 09/27/19 Range/Units 21:25 22:00 WBC (4.8-10.8) K/uL RBC (4.2-5.4) M/uL Hgb (12.0-16.0) g/dL Hct (37-47) % MCV (80-100) fL MCH (25-34) pg MCHC (32-36) g/dL RDW Std Deviation (36.4-46.3) fL RDW Coeff of Arabella (11.5-14.5) % Plt Count (130-400) K/uL MPV (7.4-10.4) fL Immature Gran % (Auto) % Neut % (Auto) % Lymph % (Auto) % [place] % (Auto) % Eos % (Auto) % Baso % (Auto) % Immature Gran # (Auto) (0.00-0.02) K/uL Neut # (Auto) (1.4-6.5) K/uL Lymph # (Auto) (1.2-3.4) K/uL [place] # (Auto) (0.11-0.59) K/uL Eos # (Auto) (0-0.5) K/uL Baso # (Auto) (0-0.2) K/uL PT (9.0-12.0) Seconds INR (0.9-1.1) APTT (21.0-31.0) Seconds PTT Ratio VBG pH 7.38 (7.36-7.41) VBG pCO2 72 H (38-50) mmHg VBG pO2 40 mmHg VBG HCO3 42 mmol/L VBG O2 Saturation 72.2 % VBG Base Excess 14.3 mEq/L Barometric Pressure 737.6 mm/Hg Sodium (136-145) mmol/L Potassium (3.5-5.1) mmol/L Chloride (98-107) mmol/L Carbon Dioxide (21-32) mmol/L Anion Gap (3-11) BUN (7-18) mg/dl Creatinine (0.6-1.2) mg/dl Est Cr Clr Drug Dosing ml/min Est GFR ( Amer) Est GFR (Non-Af Amer) BUN/Creatinine Ratio (10-20) Glucose (70-99) mg/dl Calcium (8.5-10.1) mg/dl Total Bilirubin (0.2-1) mg/dl AST (15-37) U/L ALT (12-78) U/L Alkaline Phosphatase (45-117) U/L Troponin I (0-0.045) ng/ml Total Protein (6.4-8.2) gm/dl Albumin (3.4-5.0) gm/dl Globulin (2.5-4.0) gm/dl Albumin/Globulin Ratio (0.9-2) Specimen Hemolysis Influenza Type A (PCR) Neg for Influ A (Neg) Influenza Type B (PCR) Neg for Influ B (Neg) Imaging Data Radiologist's Impression: XR chest 1V portable HISTORY: 69 years-old Female Dyspnea acute shortness of breath COMPARISON: CTA chest and chest radiograph studies 08/16/2019 TECHNIQUE: Portable AP view of the chest FINDINGS: Cardiac silhouette is enlarged. Calcified plaque the thoracic aortic arch. No overt pulmonary edema. Mild interstitial coarsening is likely chronic. Emphysema Ill-defined left basilar opacities. No pneumothorax. Degenerative changes of the spine and left shoulder. Right shoulder total joint arthroplasty. IMPRESSION: 1. Cardiomegaly without overt pulmonary edema. 2. Emphysema with chronic interstitial coarsening. 3. Left lung base opacities suggest atelectasis/scarring. Pneumonitis considered less likely. ECG Data Attestation: I personally reviewed and interpreted this ECG as follows: Indication: + weakness Rate (beats per minute): 78 Rhythm: + normal sinus ECG Intervals/blocks: + Normal QT-c ECG ST segments: no ST elevation ECG Findings: + PVCs Blood Pressure Blood Pressure Findings: Normal blood pressure MDM Narrative This is a 69-year-old female who presents to the ED with a chief complaint of a cough productive of yellow sputum, achiness and chills as well as weakness and shortness of breath. The patient has a history of COPD. She states that her symptoms started a week ago and she was started on prednisone, antibiotics and inhalers 2 days ago by her PCP. She chronically uses 4 L of oxygen at home. The patient CBC is unremarkable. Chemistry panel was unremarkable. Troponin was negative. Flu swab was negative. A VBG shows what appears to be a chronic respiratory acidosis with metabolic compensation resulting in a normal pH. Chest x-ray reveals chronic COPD. The patient was treated with a DuoNeb treatment as well as IV Solu-Medrol and a dose of IV Rocephin. The patient continues to feel weak and short of breath. Because of this, she will see the hospitalist for further evaluation and care. Impression & Plan Acute exacerbation of chronic obstructive pulmonary disease, Acute bronchitis Discharge Plan Visit Data Chief Complaint: Shortness of Breath/Dyspnea Stated Complaint: BREATHING DIFF ED Provider: Donovan Ryan Discharge Problem: Acute exacerbation of chronic obstructive pulmonary disease, Acute bronchitis Forms Stand Alone Forms: My [facility] Prescriptions Prescriptions: No Action Breo Ellipta 200-25 mcg/dose Blister With Device 1 inh INHALATION DAILY RF: 0 multivitamin Tablet 1 tab PO QAM RF: 0 propafenone 150 mg Tablet 150 mg PO Q8H RF: 0 gabapentin 600 mg Tablet 300 mg PO HS RF: 0 atorvastatin 20 mg Tablet 20 mg PO QPM RF: 0 metoprolol succinate 50 mg Tablet Extended Release 24 Hr 50 mg PO QAM RF: 0 levothyroxine 88 mcg Tablet 88 mcg PO DAILYBB RF: 0 ranitidine HCl 150 mg Tablet 150 mg PO BID RF: 0 sertraline [Zoloft] 25 mg Tablet 25 mg PO QAM RF: 0 allopurinol 300 mg Tablet 300 mg PO QAM RF: 0 cholecalciferol (vitamin D3) [Vitamin D3] 2,000 unit Tablet 2,000 unit PO QAM RF: 0 Daliresp 500 mcg Tablet 500 mcg PO DAILY RF: 0 albuterol sulfate 2.5 mg /3 mL (0.083 %) Solution For Nebulization 2.5 mg INHALATION Q6 PRN (Reason: Shortness Of Breath Or Wheezing) RF: 0 Spiriva with HandiHaler 18 mcg capsule, w/inhalation device 1 cap INH DAILY Qty: 30 RF: 3 bumetanide 1 mg Tablet 1 mg PO BID17 Qty: 60 RF: 1 amlodipine [Norvasc] 5 mg Tablet 5 mg PO QAM Qty: 30 RF: 1 ibuprofen 600 mg tablet 600 mg PO TID PRN (Reason: pain) Qty: 30 RF: 0 tramadol 50 mg Tablet 50 mg PO Q4H PRN (Reason: pain) Qty: 20 RF: 0 prednisone 10 mg tablet 10 mg PO .TAPER UD RF: 0 doxycycline hyclate 100 mg capsule 100 mg PO BID RF: 0 potassium chloride [Klor-Con M20] 20 mEq tablet,ER particles/crystals 20 meq PO Q OTHER DAY RF: 0 diclofenac sodium [Voltaren] 1 % gel 4 g EXT QID RF: 0 Referrals Referrals: Babak Melendez MD [Primary Care Provider] -
[2019-09-27] MEDS ORDERED: ACETAMINOPHEN 500 MG TAB PO STA (23:09)
[2019-09-27 23:16] LABS: Magnesium 1.9 mg/dl (1.8-2.4)
[2019-09-27 23:17] LABS: Appearance Urine Clear (Clear); Bacteria Urine Automated Negative (Negative); Bilirubin Urine Negative (Negative); Blood Urine Negative (Negative); Color Urine Yellow; Epithelial Cell Urine Auto >30 /lpf (0-5); Glucose Urine UA Negative (Negative); Ketones Urine Negative (Negative); Leukocyte Esterase Urine Negative (Negative); Nitrite Urine Negative (Negative); Protein Urine 1+ (Negative); RBC Urine Automated 0-4 /hpf (0-4); Specific Gravity Urine 1.019 (1.000-1.030); Urobilinogen Urine Negative (Negative)
--- NOTE | 2019-09-27 23:23 | History & Physical Report ---
Date of Service September 27, 2019 Assessment & Plan (1) Acute and chronic respiratory failure with hypercapnia: hx chronic hypoxemic respiratory failure secondary pulm HTN 2 to COPD on home O2/OHS on CPAP Secondary to COPD exacerbation, possible aspiration pneumonia following emesis symptoms No sepsis for now Failed outpatient treatment Hypertension elevated secondary illness hx chronic diastolic heart failure, EF of 60-65%, TTE 2019, patient on the dry side paroxysmal atrial fibrillation not on anticoagulation secondary to GI bleed (11/2018), patient NSR ARF secondary to illness, home medications past tobacco abuse chronic anemia secondary to CKD, hemoglobin at baseline ? Functional disability Medical telemetry Supplemental O2, may need NIPPV Unasyn, nebs, prednisone course Pulmonary consult if without improvement in a.m. Titrate home BP meds Baseline UA, monitor creatinine response to IVF, resume home diuretic until serum creatinine at baseline PT OT eval DVT prophylaxis. Heparin subcu Full code Text document was generated using [employer] voice recognition software. It may contain grammatical or spelling errors. Kindly contact undersigned for clarification of any documentation item in question. History of Present Illness Chief Complaint: Worsening cough, S OB Primary Care Provider: Babak Melendez MD History obtained from patient and records. Medical history significant for chronic hypoxemic respiratory failure secondary pulmonary HTN secondary to COPD on home O2/ OHS on CPAP, paroxysmal atrial fibrillation not on anticoagulation secondary to GI bleed (11/2018), hypertension, chronic diastolic heart failure, EF of 60-65%, TTE 2019, past tobacco abuse, chronic anemia (baseline hemoglobin of 8-9). Recent confinement last month for right-sided back pain. Patient discharged home. Has not been able to follow-up with PCP the last few months. 1 week history of junky cough symptoms with some shortness of breath. Achy headache, nausea, emesis symptoms without abdominal pain. Good BM. Poor appetite. No known sick contacts, no recent travel PCP prescribed doxycycline and predni sone course 2 days ago. Worsening symptoms despite medication compliance. At the ER, patient received ceftriaxone, nebs, Solu-Medrol for COPD exacerbation. Medical History as above Surgical History : Appendectomy, cholecystectomy, wrist surgery, shoulder surgery, hip replacement, neck surgery Family History : Diabetes, heart disease Personal/Social history : Past tobacco abuse, no EtOH intake, retired from [employer] work Allergies Allergy/AdvReac Type Severity Reaction Status Date / Time adhesive Allergy Severe RED RASH Verified 09/27/19 22:37 latex AdvReac Mild TAPE-SORE Verified 09/27/19 22:37 morphine AdvReac Mild DELUSIONS Verified 09/27/19 22:37 Home Medications Home Medications Medication Instructions Recorded Confirmed Type Katrina Hallta 1 inh INHALATION DAILY 03/12/18 09/27/19 History Daliresp 500 mcg PO DAILY 03/12/18 09/27/19 History allopurinol 300 mg PO QAM 03/12/18 09/27/19 History atorvastatin 20 mg PO QPM 03/12/18 09/27/19 History cholecalciferol (vitamin D3) 2,000 unit PO QAM 03/12/18 09/27/19 History [Vitamin D3] gabapentin 300 mg PO HS 03/12/18 09/27/19 History levothyroxine 88 mcg PO DAILYBB 03/12/18 09/27/19 History metoprolol succinate 50 mg PO QAM 03/12/18 09/27/19 History multivitamin 1 tab PO QAM 03/12/18 09/27/19 History propafenone 150 mg PO Q8H 03/12/18 09/27/19 History ranitidine HCl 150 mg PO BID 03/12/18 09/27/19 History sertraline [Zoloft] 25 mg PO QAM 03/12/18 09/27/19 History albuterol sulfate 2.5 mg INHALATION Q6 PRN 08/07/18 09/27/19 History Spiriva with HandiHaler 1 cap INH DAILY #30 puffs 08/03/19 09/27/19 Rx amlodipine [Norvasc] 5 mg PO QAM #30 tab 08/11/19 09/27/19 Rx bumetanide 1 mg PO BID17 #60 tab 08/11/19 09/27/19 Rx ibuprofen 600 mg PO TID PRN #30 tab 08/11/19 09/27/19 Rx tramadol 50 mg PO Q4H PRN #20 tab 08/19/19 09/27/19 Rx diclofenac sodium [Voltaren] 4 g EXT QID 09/27/19 09/27/19 History doxycycline hyclate 100 mg PO BID 09/27/19 09/27/19 History potassium chloride [Klor-Con M20] 20 meq PO Q OTHER DAY 09/27/19 09/27/19 History prednisone 10 mg PO .TAPER UD 09/27/19 09/27/19 History 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) Hx of cholecystectomy (Chronic) S/P cervical spinal fusion (Chronic) S/P wrist surgery (Chronic) Family History Father Trauma Mother Diabetes Cerebral aneurysm Daughter Bipolar 1 disorder Social History Preferred Language: Urdu Communication Ability: Effective Therapy Site Coordinator Required: No Beliefs That Will Affect Care: None marital status: Current Living Situation: Family Current Living Situation Comment: lives with daughter Feels Safe at Home: Yes Smoking Status: Former smoker Tobacco Type: cigarettes ; Cigarettes Per Day: 2 packs ; Second Hand Exposure: No ; Hx Alcohol Use: No Hx Substance Use: No Review of Systems Review of Systems: As per HPI, all 10 systems reviewed, all other ROS negative Physical Exam Physical Exam: GENERAL: Anxious, obese, minimal respiratory distress SKIN: Pallor , warm HEENT: pale palpebral conjunctivae, no ptosis, dry buccal mucosa, nasal cannula in place NECK : Supple, short neck, no tenderness CHEST : Expiratory wheezes, no tenderness HEART : RRR, no obvious murmurs ABDOMEN: distention, nontender EXTREMITIES : Bilateral LE swelling, no LE tenderness, no other conspicuous deformities noted NEUROLOGIC : Coherent, no facial asymmetry, slightly hard of hearing, gait and stance not assessed Results & Data Vital Signs (Past 12 Hours) Vital Signs Temp Pulse Pulse Resp BP Pulse Ox 09/27/19 23:00 68 23 192/87 H 94 03/18/20 22:50 66 24 94 09/27/19 22:40 65 21 94 09/27/19 22:30 64 21 173/85 H 93 09/27/19 22:20 67 19 94 09/27/19 22:18 65 19 169/64 H 95 09/27/19 22:10 66 21 94 09/27/19 22:00 67 25 H 93 09/27/19 21:50 66 21 96 09/27/19 21:40 75 17 95 09/27/19 21:39 68 24 96 09/27/19 21:30 72 23 170/73 H 96 09/27/19 21:24 72 23 98 09/27/19 21:23 74 26 H 189/76 H 96 09/27/19 21:21 37.4 C 75 20 143/123 H 97 Laboratory Results Laboratory Results WBC 10.01 K/uL (4.8-10.8) 09/27/19 21: RBC 3.49 M/uL (4.2-5.4) L 09/27/19 21:22 Hgb 10.5 g/dL (12.0-16.0) L 09/27/19 21:22 Hct 34.5 % (37-47) L 09/27/19 21:22 MCV 98.9 fL (80-100) 09/27/19 21:22 MCH 30.1 pg (25-34) 09/27/19 21: MCHC 30.4 g/dL (32-36) L 09/27/19 21:22 RDW Std Deviation 52.7 fL (36.4-46.3) H 09/27/19 21:22 RDW Coeff of Arabella 14.6 % (11.5-14.5) H 09/27/19 21: Plt Count 208 K/uL (130-400) 09/27/19 21:22 MPV 9.7 fL (7.4-10.4) 09/27/19 21:22 Immature Gran % (Auto) 0.3 % 09/27/19 21: Neut % (Auto) 76.5 % 09/27/19 21:22 Lymph % (Auto) 12.5 % 09/27/19 21:22 [place] % (Auto) 10.6 % 09/27/19 21:22 Eos % (Auto) 0.0 % 09/27/19 21: Baso % (Auto) 0.1 % 09/27/19 21: Immature Gran # (Auto) 0.03 K/uL (0.00-0.02) H 09/27/19 21: Neut # (Auto) 7.66 K/uL (1.4-6.5) H 09/27/19: Lymph # (Auto) 1.25 K/uL (1.2-3.4) 09/27/19 21: [place] # (Auto) 1.06 K/uL (0.11-0.59) H 09/27/19 21: Eos # (Auto) 0.00 K/uL (0-0.5) 09/27/19: Baso # (Auto) 0.01 K/uL (0-0.2) 09/27/19: PT 11.4 Seconds (9.0-12.0) 09/27/19: INR 1.1 (0.9-1.1) 09/27/19: APTT 21.6 Seconds (21.0-31.0) 09/27/19: PTT Ratio 0.8 09/27/19: VBG pH 7.38 (7.36-7.41) 09/27/19 22:00 VBG pCO2 72 mmHg (38-50) H 09/27/19 22:00 VBG pO2 40 mmHg 09/27/19 22:00 VBG HCO3 42 mmol/L 09/27/19 22:00 VBG O2 Saturation 72.2 % 09/27/19 22:00 VBG Base Excess 14.3 mEq/L 09/27/19 22:00 Barometric Pressure 737.6 mm/Hg 09/27/19 22:00 Sodium 138 mmol/L (136-145) 09/27/19: Potassium 4.6 mmol/L (3.5-5.1) 09/27/19: Chloride 95 mmol/L (98-107) L 09/27/19: Carbon Dioxide 42 mmol/L (21-32) H* 09/27/19: Anion Gap 1.0 (3-11) L 09/27/19 21: BUN 31 mg/dl (7-18) H 09/27/19 21: Creatinine 1.24 mg/dl (0.6-1.2) H 09/27/19: Est Cr Clr Drug Dosing 47.7 ml/min 09/27/19 21: Est GFR ( Amer) 50.6 09/27/19 21: Est GFR (Non-Af Amer) 43.7 09/27/19 21: BUN/Creatinine Ratio 25.0 (10-20) H 09/27/19 21: Glucose 116 mg/dl (70-99) H 09/27/19 21: Calcium 9.9 mg/dl (8.5-10.1) 09/27/19: Magnesium 1.9 mg/dl (1.8-2.4) 09/27/19: Total Bilirubin 0.2 mg/dl (0.2-1) 09/27/19: AST 15 U/L (15-37) 09/27/19 21: ALT 13 U/L (12-78) 09/27/19 21: Alkaline Phosphatase 94 U/L (45-117) 09/27/19 21: Troponin I < 0.015 ng/ml (0-0.045) 09/27/19 21: Total Protein 8.5 gm/dl (6.4-8.2) H 09/27/19 21: Albumin 3.2 gm/dl (3.4-5.0) L 09/27/19: Globulin 5.3 gm/dl (2.5-4.0) H 09/27/19 21: Albumin/Globulin Ratio 0.6 (0.9-2) L 09/27/19 21: Specimen Hemolysis 09/27/19 21: Urine Color Yellow 09/27/19 23:00 Urine Appearance Clear (Clear) 09/27/19 23:00 Urine pH 6.0 (4.5-7.5) 09/27/19 23:00 Ur Specific [place] 1.019 (1.000-1.030) 09/27/19 23:00 Urine Protein 1+ (Negative) H 09/27/19 23:00 Urine Glucose (UA) Negative (Negative) 09/27/19 23:00 Urine Ketones Negative (Negative) 09/27/19 23:00 Urine Blood Negative (Negative) 09/27/19 23:00 Urine Nitrite Negative (Negative) 09/27/19 23:00 Urine Bilirubin Negative (Negative) 09/27/19 23:00 Urine Urobilinogen Negative (Negative) 09/27/19 23:00 Ur Leukocyte Esterase Negative (Negative) 09/27/19 23:00 Urine WBC (Auto) 1-5 /hpf (0-5) 09/27/19 23:00 Urine RBC (Auto) 0-4 /hpf (0-4) 09/27/19 23:00 U Hyaline Cast (Auto) 1-5 /lpf (0-5) 09/27/19 23:00 U Epithel Cells (Auto) >30 /lpf (0-5) H 09/27/19 23:00 Urine Bacteria (Auto) Negative (Negative) 09/27/19 23:00 Influenza Type A (PCR) Neg for Influ A (Neg) 09/27/19 21:25 Influenza Type B (PCR) Neg for Influ B (Neg) 09/27/19 21:[address] head initial read: No acute intracranial process CT chest initial read: CT chest without contrast patchy bilateral pneumonitis/nodular infiltrates. Mild pulmonary emphysema. Peribronchial thickening. Mild mediastinal/hilar adenopathy. Cardiomegaly. Old right rib fractures, right shoulder replacement old spinal fracture and vertebroplasty EKG as per my interpretation rate 80, NSR, normal axis, incomplete RBBB, T wave abnormality septal leads, PVCs
[2019-09-27] MEDS ORDERED: TRAMADOL HCL 50 MG TABLET PO STA (23:24)
[2019-09-27] MEDS ORDERED: AMLODIPINE BESYLATE 5 MG TAB PO STA (23:24)
[2019-09-27] MEDS: MAGNESIUM SULFATE / D5W 1 GM/100 ML BAG IV SCH (23:30)
[2019-09-27 23:31] LABS: Thyroid Stimulating Hormone 0.206 uIu/ml (0.300-4.500)
[2019-09-27 23:45] LABS: T4 Free Thyroxine 1.24 ng/dl (0.8-1.6)
--- NOTE | 2019-09-28 00:24 | History & Physical Report ---
Date of Service September 28, 2019 Assessment & Plan (1) Acute and chronic respiratory failure with hypercapnia: hx chronic hypoxemic respiratory failure secondary pulm HTN 2 to COPD on home O2/OHS on CPAP Secondary to COPD exacerbation, possible aspiration pneumonia following emesis symptoms No sepsis for now Failed outpatient treatment Hypertension elevated secondary illness hx chronic diastolic heart failure, EF of 60-65%, TTE 2019, patient on the dry side paroxysmal atrial fibrillation not on anticoagulation secondary to GI bleed (11/2018), patient NSR ARF secondary to illness, home medications past tobacco abuse chronic anemia secondary to CKD, hemoglobin better than baseline likely secondary to hemoconcentration ? Functional disability Medical telemetry Supplemental O2, may need NIPPV Unasyn, nebs, prednisone course Pulmonary consult if without improvement in a.m. Titrate home BP meds Baseline UA, monitor creatinine response to IVF, resume home diuretic until serum creatinine at baseline PT OT eval DVT prophylaxis. Heparin subcu Full code Text document was generated using [employer] voice recognition software. It may contain grammatical or spelling errors. Kindly contact undersigned for clarification of any documentation item in question. History of Present Illness Chief Complaint: Worsening cough, S OB Primary Care Provider: Babak Melendez MD History obtained from patient and records. Medical history significant for chronic hypoxemic respiratory failure secondary pulmonary HTN secondary to COPD on home O2/ OHS on CPAP, paroxysmal atrial fibrillation not on anticoagulation secondary to GI bleed (11/2018), hypertension, chronic diastolic heart failure, EF of 60-65%, TTE 2019, past tobacco abuse, chronic anemia (baseline hemoglobin of 8-9). Recent confinement last month for right-sided back pain. Patient discharged home. Has not been able to follow-up with PCP the last few months. 1 week history of junky cough symptoms with some shortness of breath. Achy headache, nausea, emesis symptoms without abdominal pain. Good BM. Poor appetite. No known sick contacts, no recent travel PCP prescribed doxycycline and prednisone course 2 days ago. Worsening symptoms despite medication compliance. At the ER, patient received ceftriaxone, nebs, Solu-Medrol for COPD exacerbation. Medical History as above Surgical History : Appendectomy, cholecystectomy, wrist surgery, shoulder surgery, hip replacement, neck surgery Family History : Diabetes, heart disease Personal/Social history : Past tobacco abuse, no EtOH intake, retired from [employer] work Allergies Allergy/AdvReac Type Severity Reaction Status Date / Time adhesive Allergy Severe RED RASH Verified 09/27/19 22:37 latex AdvReac Mild TAPE-SORE Verified 09/27/19 22:37 morphine AdvReac Mild DELUSIONS Verified 09/27/19 22:37 Home Medications Home Medications Medication Instructions Recorded Confirmed Type Katrina Hallta 1 inh INHALATION DAILY 03/12/18 09/27/19 History Daliresp 500 mcg PO DAILY 03/12/18 09/27/19 History allopurinol 300 mg PO QAM 03/12/18 09/27/19 History atorvastatin 20 mg PO QPM 03/12/18 09/27/19 History cholecalciferol (vitamin D3) 2,000 unit PO QAM 03/12/18 09/27/19 History [Vitamin D3] gabapentin 300 mg PO HS 03/12/18 09/27/19 History levothyroxine 88 mcg PO DAILYBB 03/12/18 09/27/19 History metoprolol succinate 50 mg PO QAM 03/12/18 09/27/19 History multivitamin 1 tab PO QAM 03/12/18 09/27/19 History propafenone 150 mg PO Q8H 03/12/18 09/27/19 History ranitidine HCl 150 mg PO BID 03/12/18 09/27/19 History sertraline [Zoloft] 25 mg PO QAM 03/12/18 09/27/19 History albuterol sulfate 2.5 mg INHALATION Q6 PRN 08/07/18 09/27/19 History Spiriva with HandiHaler 1 cap INH DAILY #30 puffs 08/03/19 09/27/19 Rx amlodipine [Norvasc] 5 mg PO QAM #30 tab 08/11/19 09/27/19 Rx bumetanide 1 mg PO BID17 #60 tab 08/11/19 09/27/19 Rx ibuprofen 600 mg PO TID PRN #30 tab 08/11/19 09/27/19 Rx tramadol 50 mg PO Q4H PRN #20 tab 08/19/19 09/27/19 Rx diclofenac sodium [Voltaren] 4 g EXT QID 09/27/19 09/27/19 History doxycycline hyclate 100 mg PO BID 09/27/19 09/27/19 History potassium chloride [Klor-Con M20] 20 meq PO Q OTHER DAY 09/27/19 09/27/19 History prednisone 10 mg PO .TAPER UD 09/27/19 09/27/19 History 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) Hx of cholecystectomy (Chronic) S/P cervical spinal fusion (Chronic) S/P wrist surgery (Chronic) Family History Father Trauma Mother Diabetes Cerebral aneurysm Daughter Bipolar 1 disorder Social History Preferred Language: [place] Communication Ability: Effective Room Maid Required: No Beliefs That Will Affect Care: None marital status: Current Living Situation: Family Current Living Situation Comment: dtr Feels Safe at Home: Yes Smoking Status: Former smoker Tobacco Type: cigarettes ; Cigarettes Per Day: 2 packs ; Second Hand Exposure: No ; Hx Alcohol Use: No Hx Substance Use: No Review of Systems Review of Systems: As per HPI, all 10 systems reviewed, all other ROS negative Physical Exam Physical Exam: GENERAL: Anxious, obese, minimal respiratory distress SKIN: Pallor , warm HEENT: pale palpebral conjunctivae, no ptosis, dry buccal mucosa, nasal cannula in place NECK : Supple, short neck, no tenderness CHEST : Expiratory wheezes, no tenderness HEART : RRR, no obvious murmurs ABDOMEN: distention, nontender EXTREMITIES : Bilateral LE swelling, no LE tenderness, no other conspicuous deformities noted NEUROLOGIC : Coherent, no facial asymmetry, slightly hard of hearing, gait and stance not assessed Results & Data Vital Signs (Past 12 Hours) Vital Signs Temp Pulse Pulse Resp BP Pulse Ox 09/27/19 23:55 66 17 186/86 H 96 09/27/19 23:30 67 25 H 177/76 H 96 09/27/19 23:21 67 21 95 09/27/19 23:19 67 20 167/88 H 96 09/27/19 23:10 63 20 95 09/27/19 23:00 68 23 192/87 H 94 09/27/19 22:50 66 24 94 09/27/19 22:40 65 21 94 09/27/19 22:30 64 21 173/85 H 93 09/27/19 22:20 67 19 94 09/27/19 22:18 65 19 169/64 H 95 09/27/19 22:10 66 21 94 09/27/19 22:00 67 25 H 93 09/27/19 21:50 66 21 96 09/27/19 21:40 75 17 95 09/27/19 21:39 68 24 96 09/27/19 21:30 72 23 170/73 H 96 09/27/19 21:24 72 23 98 09/27/19 21:23 74 26 H 189/76 H 96 09/27/19 21:21 37.4 C 75 20 143/123 H 97 Laboratory Results Laboratory Results WBC 10.01 K/uL (4.8-10.8) 09/27/19 21: RBC 3.49 M/uL (4.2-5.4) L 09/27/19 21:22 Hgb 10.5 g/dL (12.0-16.0) L 09/27/19 21:22 Hct 34.5 % (37-47) L 09/27/19 21:22 MCV 98.9 fL (80-100) 09/27/19 21:22 MCH 30.1 pg (25-34) 09/27/19 21:22 MCHC 30.4 g/dL (32-36) L 09/27/19 21:22 RDW Std Deviation 52.7 fL (36.4-46.3) H 09/27/19 21:22 RDW Coeff of Arabella 14.6 % (11.5-14.5) H 09/27/19 21:22 Plt Count 208 K/uL (130-400) 09/27/19 21:22 MPV 9.7 fL (7.4-10.4) 09/27/19 21: Immature Gran % (Auto) 0.3 % 09/27/19 21: Neut % (Auto) 76.5 % 09/27/19 21: Lymph % (Auto) 12.5 % 09/27/19 21: [place] % (Auto) 10.6 % 09/27/19 21: Eos % (Auto) 0.0 % 09/27/19 21: Baso % (Auto) 0.1 % 09/27/19 21: Immature Gran # (Auto) 0.03 K/uL (0.00-0.02) H 09/27/19 21: Neut # (Auto) 7.66 K/uL (1.4-6.5) H 09/27/19 21: Lymph # (Auto) 1.25 K/uL (1.2-3.4) 09/27/19 21: [place] # (Auto) 1.06 K/uL (0.11-0.59) H 09/27/19 21: Eos # (Auto) 0.00 K/uL (0-0.5) 09/27/19 21: Baso # (Auto) 0.01 K/uL (0-0.2) 09/27/19 21: PT 11.4 Seconds (9.0-12.0) 09/27/19 21: INR 1.1 (0.9-1.1) 09/27/19: APTT 21.6 Seconds (21.0-31.0) 09/27/19: PTT Ratio 0.8 09/27/19: VBG pH 7.38 (7.36-7.41) 09/27/19 22:00 VBG pCO2 72 mmHg (38-50) H 09/27/19 22:00 VBG pO2 40 mmHg 09/27/19 22:00 VBG HCO3 42 mmol/L 09/27/19 22:00 VBG O2 Saturation 72.2 % 09/27/19 22:00 VBG Base Excess 14.3 mEq/L 09/27/19 22:00 Barometric Pressure 737.6 mm/Hg 09/27/19 22:00 Sodium 138 mmol/L (136-145) 09/27/19 21: Potassium 4.6 mmol/L (3.5-5.1) 09/27/19 21: Chloride 95 mmol/L (98-107) L 09/27/19 21: Carbon Dioxide 42 mmol/L (21-32) H* 09/27/19 21: Anion Gap 1.0 (3-11) L 09/27/19 21: BUN 31 mg/dl (7-18) H 09/27/19 21: Creatinine 1.24 mg/dl (0.6-1.2) H 09/27/19 21: Est Cr Clr Drug Dosing 47.7 ml/min 09/27/19 21: Est GFR ( Amer) 50.6 09/27/19 21: Est GFR (Non-Af Amer) 43.7 09/27/19 21: BUN/Creatinine Ratio 25.0 (10-20) H 09/27/19 21: Glucose 116 mg/dl (70-99) H 09/27/19 21: Calcium 9.9 mg/dl (8.5-10.1) 09/27/19 21: Magnesium 1.9 mg/dl (1.8-2.4) 09/27/19: Total Bilirubin 0.2 mg/dl (0.2-1) 09/27/19: AST 15 U/L (15-37) 09/27/19 21: ALT 13 U/L (12-78) 09/27/19 21: Alkaline Phosphatase 94 U/L (45-117) 09/27/19: Troponin I < 0.015 ng/ml (0-0.045) 09/27/19: Total Protein 8.5 gm/dl (6.4-8.2) H 09/27/19: Albumin 3.2 gm/dl (3.4-5.0) L 09/27/19: Globulin 5.3 gm/dl (2.5-4.0) H 09/27/19 21: Albumin/Globulin Ratio 0.6 (0.9-2) L 09/27/19: TSH 0.206 uIu/ml (0.300-4.500) L 03/18/20 21:22 Free T4 1.24 ng/dl (0.8-1.6) 09/27/19 21:22 Specimen Hemolysis 09/27/19 21:22 Urine Color Yellow 09/27/19 23:00 Urine Appearance Clear (Clear) 09/27/19 23:00 Urine pH 6.0 (4.5-7.5) 09/27/19 23:00 Ur Specific [place] 1.019 (1.000-1.030) 09/27/19 23:00 Urine Protein 1+ (Negative) H 09/27/19 23:00 Urine Glucose (UA) Negative (Negative) 09/27/19 23:00 Urine Ketones Negative (Negative) 09/27/19 23:00 Urine Blood Negative (Negative) 09/27/19 23:00 Urine Nitrite Negative (Negative) 09/27/19 23:00 Urine Bilirubin Negative (Negative) 09/27/19 23:00 Urine Urobilinogen Negative (Negative) 09/27/19 23:00 Ur Leukocyte Esterase Negative (Negative) 09/27/19 23:00 Urine WBC (Auto) 1-5 /hpf (0-5) 09/27/19 23:00 Urine RBC (Auto) 0-4 /hpf (0-4) 09/27/19 23:00 U Hyaline Cast (Auto) 1-5 /lpf (0-5) 09/27/19 23:00 U Epithel Cells (Auto) >30 /lpf (0-5) H 09/27/19 23:00 Urine Bacteria (Auto) Negative (Negative) 09/27/19 23:00 Influenza Type A (PCR) Neg for Influ A (Neg) 09/27/19 21:25 Influenza Type B (PCR) Neg for Influ B (Neg) 09/27/19 21:[address] head initial read: No acute intracranial process CT chest initial read: patchy bilateral pneumonitis/nodular infiltrates. Mild pulmonary emphysema. Peribronchial thickening. Mild mediastinal/hilar adenopathy. Cardiomegaly. Old right rib fractures, right shoulder replacement old spinal fracture and vertebroplasty EKG as per my interpretation rate 80, NSR, normal axis, incomplete RBBB, T wave abnormality septal leads, PVCs
[2019-09-28] MEDS ORDERED: SODIUM CHLORIDE 0.9% 500 ML IV ONE (00:53)
[2019-09-28] MEDS ORDERED: PROMETHAZINE HCL 12.5 MG in SODIUM CHLORIDE 0.9% 50 ML IV PRN (00:53)
[2019-09-28] MEDS ORDERED: AMPICILLIN/SULBACTAM SOD 3,000 MG in 0.9 % SODIUM CHLORIDE 100 ML IV STA (00:53)
[2019-09-28] MEDS ORDERED: XOPENEX/ATROVENT 1.25mg/0.5MG NEB COMBO NEB SCH (02:00)
[2019-09-28] MEDS ORDERED: AMLODIPINE BESYLATE 5 MG TAB PO ONE (02:02)
[2019-09-28] MEDS ORDERED: GLUCOSE 10 TABS/TUBE PO PRN (02:04)
[2019-09-28] MEDS ORDERED: GLUCOSE 40% GEL 15 GM TUBE PO PRN (02:04)
[2019-09-28] MEDS ORDERED: CARBOHYDRATES FOR HYPOGLYCEMIA PO PRN (02:04)
[2019-09-28] MEDS ORDERED: DEXTROSE 50% 50 ML SYRINGE IV PRN (02:04)
[2019-09-28] MEDS ORDERED: GLUCAGON FOR INJ 1 MG VIAL SQ PRN (02:04)
[2019-09-28] MEDS ORDERED: INSULIN GLARGINE SOLOSTAR 100 UNITS/ML 3 ML PEN SC STA (02:04)
[2019-09-28] MEDS: MAGNESIUM SULFATE / D5W 1 GM/100 ML BAG IV SCH (02:09)
[2019-09-28] MEDS: PROPAFENONE HCL 150 MG TABLET PO SCH ×4 (02:11→21:02)
[2019-09-28] MEDS: INSULIN ASPART 100 UNITS/ML 3 ML PEN SC SCH ×5 (02:56→21:01)
[2019-09-28] MEDS: IPRATROPIUM BROMIDE NEB SOLN 0.02% 2.5 ML VIAL INH SCH ×6 (03:42→23:25)
[2019-09-28] MEDS: LEVALBUTEROL 1.25MG/0.5ML NEB INH SCH ×6 (03:42→23:25)
[2019-09-28 06:03] LABS: Basophils # (auto) 0.01 K/uL (0-0.2); Basophils % (auto) 0.1 %; Hematocrit (blood only) 32.2 % (37-47); Hemoglobin 9.7 g/dL (12.0-16.0); Immature Granulocytes # (auto) 0.02 K/uL (0.00-0.02); Immature Granulocytes % (auto) 0.2 %; Lymphocytes # (auto) 0.62 K/uL (1.2-3.4); Mean Corpuscular Hgb Conc 30.1 g/dL (32-36); Mean Corpuscular Volume 96.4 fL (80-100); Mean Platelet Volume 9.3 fL (7.4-10.4); Monocytes # (auto) 0.13 K/uL (0.11-0.59); Monocytes % (auto) 1.5 %; Neutrophils # (auto) 8.04 K/uL (1.4-6.5); Neutrophils % (auto) 91.2 %; Platelet Count 165 K/uL (130-400); RDW Coefficient of Variation 14.5 % (11.5-14.5); RDW Standard Deviation 51.1 fL (36.4-46.3); Red Blood Count 3.34 M/uL (4.2-5.4); White Blood Count 8.82 K/uL (4.8-10.8)
--- NOTE | 2019-09-28 06:10 | CT Scan Report ---
CT head/brain wo con CT DOSE: 614.27 mGy.cm HISTORY: Mental status change vang TECHNIQUE: Multiaxial CT images of the head were performed without the use of intravenous contrast. A dose lowering technique was utilized adhering to the principles of ALARA. Comparison: None. Findings: The paranasal sinuses and mastoid air cells are clear. The calvarium and skull base are int act. The ventricles and sulci are within normal limits. There is no mass, hematoma, midline shift, or acute infarct. Impression: No acute intracranial abnormality. ACT 112: Negative or not required by law. The above report was generated using voice recognition software. It may contain grammatical, syntax or spelling errors. Electronically signed by: Jerad Patel M.D. 09/28/2019 6:08 AM
[2019-09-28] MEDS: HEPARIN SOD 5,000 UNIT/0.5 ML VIAL SQ SCH ×3 (06:17→21:01)
[2019-09-28] MEDS: LEVOTHYROXINE SODIUM 88 MCG TABLET PO SCH (06:18)
[2019-09-28 06:38] LABS: BUN Creatinine Ratio 27.7 (10-20); Calcium 9.6 mg/dl (8.5-10.1); Creatinine Clr Calc Pharmacy 50.3 ml/min; Est GFR (African American) 56.6; Est GFR (Non-African American) 48.9; Potassium 4.1 mmol/L (3.5-5.1)
--- NOTE | 2019-09-28 06:53 | CT Scan Report ---
CT OF THE CHEST WITHOUT IV CONTRAST CLINICAL HISTORY: Cough. Shortness of breath. COMPARISON STUDY: Chest CT August 16, 2019. Chest radiograph performed earlier today. CT DOSE: 1094.71 mGy.cm TECHNIQUE: Axial images of the chest were obtained without IV contrast. Images were reviewed in the axial, sagittal, and coronal planes. IV contrast was not administered for this examination. Automat ed exposure control was utilized for the study. A dose lowering technique was utilized adhering to t he principles of ALARA. FINDINGS: Moderate cardiomegaly is noted. There is no pericardial effusion. Moderate coronary artery calcification is noted. Mildly enlarged subcarinal lymph nodes measure up to 1.5 cm in short axis di ameter. There are prominent right paratracheal lymph nodes. Bronchial wall thickening is noted. Left lower lobe airspace opacity with volume loss is unchanged. This favors atelectasis. Mild tree-in-bud nodules within the right middle and right lower lobes are noted. There is no lobar consolidation. Mil d emphysema is present. No pneumothorax or pleural effusion is noted. There are multiple old bilatera l rib fractures. There is a 1 level vertebroplasty within the thoracic spine. Upper abdomen is unrema rkable on this unenhanced exam. IMPRESSION: 1. Mild tree-in-bud nodules within the right middle right lower lobe which favors an infectious bronc hiolitis. No change in left lower lobe subpleural airspace opacities with fine loss which favors atel ectasis. Bronchial wall thickening. 2. Mildly enlarged mediastinal lymph nodes. This can be assessed with a follow-up chest CT in 6 month s. 3. Mild emphysema. ACT 112: Negative or not required by law. Electronically signed by: Quentin Maier M.D. 09/28/2019 6:52 AM
[2019-09-28] MEDS: AMPICILLIN/SULBACTAM SOD 3,000 MG in 0.9 % SODIUM CHLORIDE 100 ML IV SCH ×3 (07:55→20:53)
[2019-09-28] MEDS: FLUTICASONE/VILANTEROL 200/25MCG 14 PUFFS/INHALER INH SCH (07:56)
[2019-09-28] MEDS: SERTRALINE HCL 50 MG TABLET PO SCH (07:57)
[2019-09-28] MEDS: ROFLUMILAST 500 MCG TAB PO SCH (07:57)
[2019-09-28] MEDS: allopurinoL 300 MG TAB PO SCH (07:57)
[2019-09-28] MEDS: predniSONE 20 MG TAB PO SCH (07:57)
[2019-09-28] MEDS: MULTIVITAMIN TAB PO SCH (07:57)
[2019-09-28] MEDS: METOPROLOL SUCC 50MG EXT REL TAB PO SCH (07:57)
[2019-09-28] MEDS ORDERED: AMLODIPINE BESYLATE 5 MG TAB PO SCH (09:00)
[2019-09-28] MEDS ORDERED: UNASYN~CONSULT PHARMACY PRN (09:00)
--- NOTE | 2019-09-28 09:06 | Hospitalist Progress Note ---
Date of Service September 28, 2019 Assessment & Plan (1) Acute and chronic respiratory failure with hypercapnia: Has hx of chronic hypoxemic respiratory failure secondary pulm HTN 2 to COPD on home O2/OHS on CPAP Secondary to COPD exacerbation, possible aspiration pneumonia following emesis symptoms No sepsis for now Reported to have failed outpatient treatment Currently on Unasyn Continue steroid and nebs for now Monitor respiratory status (2) Hypertension Was elevated on admission, likely due to current illness Has hx of chronic diastolic heart failure, EF of 60-65%, TTE 2018 Seems euvolemic at this time BP improving Continue amlodipine, increased to 10mg from home 5mg daily (3) Paroxysmal atrial fibrillation Not on anticoagulation secondary to GI bleed (11/2018) Currently in sinus rhythm (4) Elevated creatinine Cr was mildly elevated from 1.15 on 08/18/2019 to 1.24 on admission Got some IVF Currently 1.13 Monitor and resume home diuretic tomorrow (5) Chronic anemia Likely secondary to CKD, hemoglobin better than baseline likely secondary to hemoconcentration PT OT eval DVT prophylaxis. Heparin subcu Full code . Admission and Anticipated Discharge Date Admission Date: September 28, 2019 Subjective Patient seen and examined. Reports nausea and vomiting have resolved Still has productive cough and occasional shortness of breath Reported sorethroat in the past week has resolved Denied any fevers, chills, chest pain at the moment Reports chronic 2 pillow orthopnea. Denied leg swelling. Reports adherence with home meds and CPAP Physical Exam Constitutional: + obese; no acute distress Eyes: PERRL, conjunctivae normal, anicteric sclerae ENMT: external ear and nose normal, oropharynx normal Respiratory: no respiratory distress on 4l/min (reported this is baseline), mild expiratory crackles on right lung posteriorly, transmitted sounds Cardiovascular: Rate/Rhythm: regular rate and regular rhythm Extremities: no pedal edema Gastrointestinal (Abdomen): normal bowel sounds, soft, nontender, no hepatosplenomegaly Musculoskeletal: no cyanosis or clubbing, extremities motor strength 5/5 Neurologic: PERRL, EOMI, accommodation nl, no face palsy, no dysarthria Psychiatric: A+Ox3, euthymic affect Results & Data ([facility]) Vital Signs (Past 12 Hours) Vital Signs Temp Pulse Pulse Pulse Pulse Resp BP 09/28/19 07:34 68 18 03/19/20 07:30 67 09/28/19 07:15 36.7 C 68 20 09/28/19 04:00 36.4 C L 68 20 09/28/19 03:42 63 16 09/28/19 03:16 36.6 C 64 20 09/28/19 01:07 65 09/28/19 00:40 36.6 C 73 18 09/27/19 23:55 66 17 186/86 H 09/27/19 23:30 67 25 H 177/76 H 09/27/19 23:21 67 21 09/27/19 23:19 67 20 167/88 H 09/27/19 23:10 63 20 09/27/19 23:00 68 23 192/87 H 09/27/19 22:50 66 24 09/27/19 22:40 65 21 09/27/19 22:30 64 21 173/85 H 09/27/19 22:20 67 19 09/27/19 22:18 65 19 169/64 H 09/27/19 22:10 66 21 09/27/19 22:00 67 25 H 09/27/19 21:50 66 21 09/27/19 21:40 75 17 09/27/19 21:39 68 24 09/27/19 21:30 72 23 170/73 H 09/27/19 21:24 72 23 09/27/19 21:23 74 26 H 189/76 H 09/27/19 21:21 37.4 C 75 20 143/123 H BP BP Pulse Ox Pulse Ox 09/28/19 07:34 97 09/28/19 07:30 09/28/19 07:15 151/77 H 96 09/28/19 04:00 172/80 H 09/28/19 03:42 97 09/28/19 03:16 157/72 H 96 96 09/28/19 01:07 09/28/19 00:40 189/95 H 92 09/27/19 23:55 96 09/27/19 23:30 96 09/27/19 23:21 95 09/27/19 23:19 96 09/27/19 23:10 95 09/27/19 23:00 94 09/27/19 22:50 94 09/27/19 22:40 94 09/27/19 22:30 93 09/27/19 22:20 94 09/27/19 22:18 95 09/27/19 22:10 94 09/27/19 22:00 93 09/27/19 21:50 96 09/27/19 21:40 95 09/27/19 21:39 96 09/27/19 21:30 96 09/27/19 21:24 98 09/27/19 21:23 96 09/27/19 21:21 97 Laboratory Results Abnormal lab results 09/27/19 09/27/19 09/27/19 Range/Units 21:22 21:22 22:00 RBC 3.49 L (4.2-5.4) M/uL Hgb 10.5 L (12.0-16.0) g/dL Hct 34.5 L (37-47) % MCHC 30.4 L (32-36) g/dL RDW Std Deviation 52.7 H (36.4-46.3) fL RDW Coeff of Arabella 14.6 H (11.5-14.5) % Immature Gran # (Auto) 0.03 H (0.00-0.02) K/uL Neut # (Auto) 7.66 H (1.4-6.5) K/uL Lymph # (Auto) (1.2-3.4) K/uL [place] # (Auto) 1.06 H (0.11-0.59) K/uL VBG pCO2 72 H (38-50) mmHg Chloride 95 L (98-107) mmol/L Carbon Dioxide 42 H* (21-32) mmol/L Anion Gap 1.0 L (3-11) BUN 31 H (7-18) mg/dl Creatinine 1.24 H (0.6-1.2) mg/dl BUN/Creatinine Ratio 25.0 H (10-20) Glucose 116 H (70-99) mg/dl POC Glucose (70-99) mg/dl Total Protein 8.5 H (6.4-8.2) gm/dl Albumin 3.2 L (3.4-5.0) gm/dl Globulin 5.3 H (2.5-4.0) gm/dl Albumin/Globulin Ratio 0.6 L (0.9-2) TSH 0.206 L (0.300-4.500) uIu/ml Urine Protein (Negative) U Epithel Cells (Auto) (0-5) /lpf 09/27/19 09/28/19 09/28/19 Range/Units 23:00 02:54 05:39 RBC 3.34 L (4.2-5.4) M/uL Hgb 9.7 L (12.0-16.0) g/dL Hct 32.2 L (37-47) % MCHC 30.1 L (32-36) g/dL RDW Std Deviation 51.1 H (36.4-46.3) fL RDW Coeff of Arabella (11.5-14.5) % Immature Gran # (Auto) (0.00-0.02) K/uL Neut # (Auto) 8.04 H (1.4-6.5) K/uL Lymph # (Auto) 0.62 L (1.2-3.4) K/uL [place] # (Auto) (0.11-0.59) K/uL VBG pCO2 (38-50) mmHg Chloride (98-107) mmol/L Carbon Dioxide (21-32) mmol/L Anion Gap (3-11) BUN (7-18) mg/dl Creatinine (0.6-1.2) mg/dl BUN/Creatinine Ratio (10-20) Glucose (70-99) mg/dl POC Glucose 173 H (70-99) mg/dl Total Protein (6.4-8.2) gm/dl Albumin (3.4-5.0) gm/dl Globulin (2.5-4.0) gm/dl Albumin/Globulin Ratio (0.9-2) TSH (0.300-4.500) uIu/ml Urine Protein 1+ H (Negative) U Epithel Cells (Auto) >30 H (0-5) /lpf 09/28/19 09/28/19 Range/Units 05:39 07:54 RBC (4.2-5.4) M/uL Hgb (12.0-16.0) g/dL Hct (37-47) % MCHC (32-36) g/dL RDW Std Deviation (36.4-46.3) fL RDW Coeff of Arabella (11.5-14.5) % Immature Gran # (Auto) (0.00-0.02) K/uL Neut # (Auto) (1.4-6.5) K/uL Lymph # (Auto) (1.2-3.4) K/uL [place] # (Auto) (0.11-0.59) K/uL VBG pCO2 (38-50) mmHg Chloride 96 L (98-107) mmol/L Carbon Dioxide 39 H (21-32) mmol/L Anion Gap 2.0 L (3-11) BUN 31 H (7-18) mg/dl Creatinine (0.6-1.2) mg/dl BUN/Creatinine Ratio 27.7 H (10-20) Glucose 144 H (70-99) mg/dl POC Glucose 135 H (70-99) mg/dl Total Protein (6.4-8.2) gm/dl Albumin (3.4-5.0) gm/dl Globulin (2.5-4.0) gm/dl Albumin/Globulin Ratio (0.9-2) TSH (0.300-4.500) uIu/ml Urine Protein (Negative) U Epithel Cells (Auto) (0-5) /lpf Diagnostic Findings CT OF THE CHEST WITHOUT IV CONTRAST CLINICAL HISTORY: Cough. Shortness of breath. COMPARISON STUDY: Chest CT August 16, 2019. Chest radiograph performed earlier today. CT DOSE: 1094.71 mGy.cm TECHNIQUE: Axial images of the chest were obtained without IV contrast. Images were reviewed in the axial, sagittal, and coronal planes. IV contrast was not administered for this examination. Automated exposure control was utilized for the study. A dose lowering technique was utilized adhering to the principles of ALARA. FINDINGS: Moderate cardiomegaly is noted. There is no pericardial effusion. Moderate coronary artery calcification is noted. Mildly enlarged subcarinal lymph nodes measure up to 1.5 cm in short axis diameter. There are prominent right paratracheal lymph nodes. Bronchial wall thickening is noted. Left lower lobe airspace opacity with volume loss is unchanged. This favors atelectasis. Mild tree-in-bud nodules within the right middle and right lower lobes are noted. There is no lobar consolidation. Mild emphysema is present. No pneumothorax or pleural effusion is noted. There are multiple old bilateral rib fractures. There is a 1 level vertebroplasty within the thoracic spine. Upper a bdomen is unremarkable on this unenhanced exam. IMPRESSION: 1. Mild tree-in-bud nodules within the right middle right lower lobe which favors an infectious bronchiolitis. No change in left lower lobe subpleural airspace opacities with fine loss which favors atelectasis. Bronchial wall thickening. 2. Mildly enlarged mediastinal lymph nodes. This can be assessed with a follow- up chest CT in 6 months. 3. Mild emphysema.
--- NOTE | 2019-09-28 09:43 | Electrocardiogram Report ---
Test Reason : Blood Pressure : / mmHG Vent. Rate : 078 BPM Atrial Rate : 078 BPM P-R Int : 208 ms QRS Dur : 100 ms QT Int : 384 ms P-R-T Axes : 000 076 082 degrees QTc Int : 438 ms Poor data quality, interpretation may be adversely affected Sinus rhythm with 1st degree A-V block with occasional Premature ventricular complexes Incomplete right bundle branch block Possible Septal infarct , age undetermined Abnormal ECG When compared with ECG of 16-AUG-2019 08:53, Premature ventricular complexes are now Present Septal infarct is now Present Confirmed by Darrion Fontaine ([id number]) on 09/28/2019 9:42:59 AM Referred By: REFERRED SELF Confirmed By:Darrion Fontaine
[2019-09-28] MEDS: GABAPENTIN 600 MG TAB PO SCH (20:57)
[2019-09-28] MEDS: ATORVASTATIN 20 MG TAB PO SCH (20:58)
[2019-09-29] MEDS: AMPICILLIN/SULBACTAM SOD 3,000 MG in 0.9 % SODIUM CHLORIDE 100 ML IV SCH ×2 (01:49→07:44)
[2019-09-29] MEDS: LEVALBUTEROL 1.25MG/0.5ML NEB INH SCH ×6 (03:02→23:12)
[2019-09-29] MEDS: IPRATROPIUM BROMIDE NEB SOLN 0.02% 2.5 ML VIAL INH SCH ×6 (03:02→23:12)
[2019-09-29] MEDS: PROPAFENONE HCL 150 MG TABLET PO SCH ×3 (05:47→23:00)
[2019-09-29] MEDS: LEVOTHYROXINE SODIUM 88 MCG TABLET PO SCH (05:47)
[2019-09-29] MEDS: HEPARIN SOD 5,000 UNIT/0.5 ML VIAL SQ SCH ×3 (05:47→23:00)
[2019-09-29] MEDS: TRAMADOL HCL 50 MG TABLET PO PRN (06:41)
[2019-09-29 07:01] LABS: Hematocrit (blood only) 33.5 % (37-47); Hemoglobin 10.1 g/dL (12.0-16.0); Mean Corpuscular Hemoglobin 29.3 pg (25-34); Mean Corpuscular Hgb Conc 30.1 g/dL (32-36); Mean Corpuscular Volume 97.1 fL (80-100); Mean Platelet Volume 9.5 fL (7.4-10.4); Platelet Count 203 K/uL (130-400); RDW Coefficient of Variation 14.7 % (11.5-14.5); RDW Standard Deviation 52.4 fL (36.4-46.3); Red Blood Count 3.45 M/uL (4.2-5.4); White Blood Count 14.17 K/uL (4.8-10.8)
[2019-09-29 07:26] LABS: BUN Creatinine Ratio 24.3 (10-20); Creatinine Clr Calc Pharmacy 47.7 ml/min; Est GFR (African American) 52.7; Est GFR (Non-African American) 45.4; Potassium 3.5 mmol/L (3.5-5.1)
[2019-09-29 07:27] LABS: Calcium 10.3 mg/dl (8.5-10.1)
[2019-09-29] MEDS: INSULIN ASPART 100 UNITS/ML 3 ML PEN SC SCH ×4 (08:14→20:43)
[2019-09-29] MEDS: FLUTICASONE/VILANTEROL 200/25MCG 14 PUFFS/INHALER INH SCH (08:15)
[2019-09-29] MEDS: INSULIN GLARGINE SOLOSTAR 100 UNITS/ML 3 ML PEN SQ SCH (08:15)
[2019-09-29] MEDS: SERTRALINE HCL 50 MG TABLET PO SCH (08:16)
[2019-09-29] MEDS: METOPROLOL SUCC 50MG EXT REL TAB PO SCH (08:16)
[2019-09-29] MEDS: AMLODIPINE BESYLATE 5 MG TAB PO SCH (08:16)
[2019-09-29] MEDS: MULTIVITAMIN TAB PO SCH (08:16)
[2019-09-29] MEDS: predniSONE 20 MG TAB PO SCH (08:16)
[2019-09-29] MEDS: allopurinoL 300 MG TAB PO SCH (08:16)
[2019-09-29] MEDS: ROFLUMILAST 500 MCG TAB PO SCH (08:16)
[2019-09-29] MEDS ORDERED: BUMETANIDE 1 MG TAB PO SCH (09:00)
[2019-09-29] MEDS ORDERED: FUROSEMIDE 40 MG in SYRINGE 0 ML IV SCH ×2 (10:00→10:15)
--- NOTE | 2019-09-29 10:15 | Hospitalist Progress Note ---
Date of Service September 29, 2019 Assessment & Plan (1) Acute and chronic respiratory failure with hypercapnia: Has hx of chronic hypoxemic respiratory failure secondary pulm HTN 2 to COPD on home O2/OHS on CPAP Secondary to COPD exacerbation, possible aspiration pneumonia following emesis symptoms Reported to have failed outpatient treatment Currently on Unasyn Sputum cx from 07/2019 was positive for pseudomonas Change antibiotics to zosyn for now since patient is still quite symptomatic and reports she feels worsening symptoms Continue steroid and nebs for now Increased WBC may be related to steroids Also has increased generalized crackles mostly bibasilar. Patient has chronic diastolic heart failure. Has already got her bumex this AM. Will change to iv lasix for now Monitor I/O Monitor electrolytes Repeat Chest Xray to reassess (2) Hypertension Was elevated on admission, likely due to current illness BP still elevated Continue amlodipine that has been increased to 10mg from home 5mg daily Reassess with diuretics today (3) Paroxysmal atrial fibrillation Not on anticoagulation secondary to GI bleed (11/2018) Currently in sinus rhythm (4) Elevated creatinine Cr was mildly elevated from 1.15 on 08/18/2019 to 1.24 on admission Review of previous Cr over the past 3 months showed Cr has varied from 1.2 to 1.5 Patient has CKD 3 Currently Cr is 1.2 Monitor with diuretics (5) Chronic anemia Likely secondary to CKD, hemoglobin better than baseline likely secondary to hemoconcentration PT OT eval DVT prophylaxis. Heparin subcu Full code Admission and Anticipated Discharge Date Admission Date: September 28, 2019 Subjective Patient seen and examined. Patient still reports shortness of breath, occasionally at rest and with minimal exertion Still has productive cough with yellowish sputum. No improvement in symptoms No fevers Denied any chest pain Denied any nausea or vomiting Physical Exam Constitutional: + obese; no acute distress Eyes: PERRL, conjunctivae normal, anicteric sclerae ENMT: external ear and nose normal, oropharynx normal Respiratory: + cough; no respiratory distress and no labored breathing On nasal oxygen at 4l/min, Generalized crackles, worse in lung bases Cardiovascular: RRR, no murmur, no edema Gastrointestinal (Abdomen): normal bowel sounds, soft, nontender, no hepatosplenomegaly Neurologic: PERRL, EOMI, accommodation nl, no face palsy, no dysarthria Psychiatric: A+Ox3, euthymic affect Results & Data ([facility]) Vital Signs (Past 12 Hours) Vital Signs Temp Pulse Pulse Resp BP BP Pulse Ox 09/29/19 08:35 71 09/29/19 07:23 36.5 C 72 18 161/78 H 99 09/29/19 07:21 65 16 99 09/29/19 04:43 36.6 C 71 18 152/73 H 96 09/29/19 03:04 74 20 95 09/28/19 23:50 66 09/28/19 23:41 36.7 C 68 20 155/81 H 99 09/28/19 23:25 66 16 99 Laboratory Results Abnormal lab results 09/28/19 09/28/19 09/29/19 Range/Units 16:52 20:18 06:29 WBC 14.17 H (4.8-10.8) K/uL RBC 3.45 L (4.2-5.4) M/uL Hgb 10.1 L (12.0-16.0) g/dL Hct 33.5 L (37-47) % MCHC 30.1 L (32-36) g/dL RDW Std Deviation 52.4 H (36.4-46.3) fL RDW Coeff of Arabella 14.7 H (11.5-14.5) % Chloride (98-107) mmol/L Carbon Dioxide (21-32) mmol/L BUN (7-18) mg/dl BUN/Creatinine Ratio (10-20) Glucose (70-99) mg/dl POC Glucose 130 H 117 H (70-99) mg/dl Calcium (8.5-10.1) mg/dl 09/29/19 09/29/19 Range/Units 06:29 07:37 WBC (4.8-10.8) K/uL RBC (4.2-5.4) M/uL Hgb (12.0-16.0) g/dL Hct (37-47) % MCHC (32-36) g/dL RDW Std Deviation (36.4-46.3) fL RDW Coeff of Arabella (11.5-14.5) % Chloride 96 L (98-107) mmol/L Carbon Dioxide 40 H (21-32) mmol/L BUN 29 H (7-18) mg/dl BUN/Creatinine Ratio 24.3 H (10-20) Glucose 100 H (70-99) mg/dl POC Glucose 109 H (70-99) mg/dl Calcium 10.3 H (8.5-10.1) mg/dl
--- NOTE | 2019-09-29 10:48 | XRay Report ---
XR chest 2V PA/lateral CLINICAL HISTORY: Cough, shortness of breath. Reassess COMPARISON STUDY: 09/27/2019 FINDINGS: No change in the parenchymal prominence left lung base. Pleural thickening lateral aspect r ight mid lung unchanged. Lungs otherwise appear clear. IMPRESSION: No change compared to the prior exam. Unaltered parenchymal prominence left lung base. ACT 112: Negative or not required by law. The above report was generated using voice recognition software. It may contain grammatical, syntax or spelling errors. Electronically signed by: Jerad Patel M.D. 09/29/2019 10:46 AM
[2019-09-29] MEDS ORDERED: PIPERACILL/TAZOBAC CONSULT ACTIVE PRN (13:25)
[2019-09-29] MEDS ORDERED: PIPERACILLIN/TAZOBACTAM 4.5 GM in DEXTROSE 5% 100 ML IV ONE (13:30)
[2019-09-29 15:42] LABS: BUN Creatinine Ratio 23.7 (10-20); Creatinine Clr Calc Pharmacy 40.3 ml/min; Est GFR (Non-African American) 37.1; Potassium 3.6 mmol/L (3.5-5.1)
[2019-09-29] MEDS: PIPERACILLIN/TAZOBACTAM 4.5 GM in DEXTROSE 5% 100 ML IV SCH (17:54)
[2019-09-29] MEDS: ATORVASTATIN 20 MG TAB PO SCH (20:40)
[2019-09-29] MEDS: GABAPENTIN 600 MG TAB PO SCH (20:41)
[2019-09-30] MEDS: PIPERACILLIN/TAZOBACTAM 4.5 GM in DEXTROSE 5% 100 ML IV SCH ×3 (02:50→17:49)
[2019-09-30] MEDS: LEVALBUTEROL 1.25MG/0.5ML NEB INH SCH ×6 (03:25→23:37)
[2019-09-30] MEDS: IPRATROPIUM BROMIDE NEB SOLN 0.02% 2.5 ML VIAL INH SCH ×6 (03:25→23:37)
[2019-09-30] MEDS: HEPARIN SOD 5,000 UNIT/0.5 ML VIAL SQ SCH ×3 (06:31→21:33)
[2019-09-30] MEDS: LEVOTHYROXINE SODIUM 88 MCG TABLET PO SCH (06:33)
[2019-09-30] MEDS: PROPAFENONE HCL 150 MG TABLET PO SCH ×3 (06:34→21:34)
[2019-09-30 07:25] LABS: Hematocrit (blood only) 33.3 % (37-47); Hemoglobin 10.3 g/dL (12.0-16.0); Mean Corpuscular Hemoglobin 29.7 pg (25-34); Mean Corpuscular Hgb Conc 30.9 g/dL (32-36); Mean Platelet Volume 8.9 fL (7.4-10.4); Platelet Count 188 K/uL (130-400); RDW Coefficient of Variation 14.7 % (11.5-14.5); RDW Standard Deviation 51.4 fL (36.4-46.3); Red Blood Count 3.47 M/uL (4.2-5.4); White Blood Count 13.91 K/uL (4.8-10.8)
[2019-09-30 07:58] LABS: BUN Creatinine Ratio 22.4 (10-20); Calcium 10.1 mg/dl (8.5-10.1); Creatinine Clr Calc Pharmacy 43.7 ml/min; Est GFR (African American) 47.4; Est GFR (Non-African American) 40.9; Potassium 3.1 mmol/L (3.5-5.1)
[2019-09-30] MEDS: MULTIVITAMIN TAB PO SCH (08:01)
[2019-09-30] MEDS: predniSONE 20 MG TAB PO SCH (08:01)
[2019-09-30] MEDS: INSULIN ASPART 100 UNITS/ML 3 ML PEN SC SCH ×4 (08:01→21:33)
[2019-09-30] MEDS: INSULIN GLARGINE SOLOSTAR 100 UNITS/ML 3 ML PEN SQ SCH (08:01)
[2019-09-30] MEDS: AMLODIPINE BESYLATE 5 MG TAB PO SCH (08:01)
[2019-09-30] MEDS: METOPROLOL SUCC 50MG EXT REL TAB PO SCH (08:01)
[2019-09-30] MEDS: ROFLUMILAST 500 MCG TAB PO SCH (08:01)
[2019-09-30] MEDS: FLUTICASONE/VILANTEROL 200/25MCG 14 PUFFS/INHALER INH SCH (08:01)
[2019-09-30] MEDS: allopurinoL 300 MG TAB PO SCH (08:01)
[2019-09-30] MEDS: SERTRALINE HCL 50 MG TABLET PO SCH (08:01)
[2019-09-30] MEDS ORDERED: POTASSIUM CHLORIDE 20 MEQ TABCR PO STA (08:40)
--- NOTE | 2019-09-30 10:17 | Hospitalist Progress Note ---
Date of Service September 30, 2019 Assessment & Plan (1) Acute and chronic respiratory failure with hypercapnia: Has hx of chronic hypoxemic respiratory failure secondary pulm HTN 2 to COPD on home O2/OHS on CPAP Secondary to COPD exacerbation, Bronchiolitis, Possible aspiration pneumonia following emesis symptoms CT Chest did show RML tree-in-bud nodules suggestive of bronchiolitis and left lower lobe opacity reported as atelectasis Reported to have failed outpatient treatment Sputum cx from 07/2019 was positive for pseudomonas Continue zosyn for now Continue steroid and nebs for now Increased WBC may be related to steroids Incentive spirometry (2) Hypertension Was elevated on admission, likely due to current illness BP still elevated Continue amlodipine that has been increased to 10mg from home 5mg daily Added hydralazine today Diuretics held today due to increase in cr from diuretic yesterday (3) Paroxysmal atrial fibrillation Not on anticoagulation secondary to GI bleed (11/2018) Currently in sinus rhythm (4) Elevated creatinine Cr was mildly elevated from 1.15 on 08/18/2019 to 1.24 on admission Review of previous Cr over the past 3 months showed Cr has varied from 1.2 to 1.5 Patient has CKD 3 Cr went up to 1.42 after diuretic yesterday, down to 1.31 this AM Holding diuretic for today (5) Chronic anemia Likely secondary to CKD Stable in 10 PT OT eval DVT prophylaxis. Heparin subcu Full code Admission and Anticipated Discharge Date Admission Date: September 28, 2019 Subjective Patient seen and examined. Reports only mild improvement in shortness of breath. Still has cough. No fevers or chills. No chest pain No nausea vomiting Physical Exam Constitutional: + well hydrated and + obese; no acute distress Eyes: PERRL, conjunctivae normal, anicteric sclerae ENMT: external ear and nose normal, oropharynx normal Respiratory: normal respiratory effort; no respiratory distress Expiratory wheezes Cardiovascular: RRR, no murmur, no edema Gastrointestinal (Abdomen): normal bowel sounds, soft, nontender, no hepatosplenomegaly Neurologic: PERRL, EOMI, accommodation nl, no face palsy, no dysarthria Psychiatric: A+Ox3, euthymic affect Results & Data ([facility]) Vital Signs (Past 12 Hours) Vital Signs Temp Pulse Pulse Resp BP BP Pulse Ox 09/30/19 08:50 30 L 09/30/19 07:36 36.4 C L 96 H 18 152/77 H 96 09/30/19 07:09 115 H 20 90 09/30/19 04:25 36.6 C 69 18 168/70 H 94 09/30/19 03:26 73 18 96 09/29/19 23:15 67 18 97 09/29/19 22:56 36.7 C 66 18 174/71 H 93 Laboratory Results Short CBC 09/30/19 Range/Units 07:14 WBC 13.91 H (4.8-10.8) K/uL Hgb 10.3 L (12.0-16.0) g/dL Hct 33.3 L (37-47) % Plt Count 188 (130-400) K/uL BMP 09/29/19 09/30/19 15:09 07:14 Sodium 137 137 Potassium 3.6 3.1 L Chloride 93 L 93 L Carbon Dioxide 39 H 40 H BUN 34 H 29 H Creatinine 1.42 H 1.31 H Glucose 171 H 103 H Calcium 10.0 10.1
[2019-09-30] MEDS: HydrALAZINE 10 MG TAB PO SCH ×3 (14:11→20:23)
[2019-09-30] MEDS: ATORVASTATIN 20 MG TAB PO SCH (20:23)
[2019-09-30] MEDS: GABAPENTIN 600 MG TAB PO SCH (20:23)
[2019-10-01] MEDS: PIPERACILLIN/TAZOBACTAM 4.5 GM in DEXTROSE 5% 100 ML IV SCH ×2 (01:55→09:58)
[2019-10-01] MEDS: LEVALBUTEROL 1.25MG/0.5ML NEB INH SCH ×6 (02:35→23:15)
[2019-10-01] MEDS: IPRATROPIUM BROMIDE NEB SOLN 0.02% 2.5 ML VIAL INH SCH ×6 (02:35→23:16)
[2019-10-01 06:03] LABS: Hematocrit (blood only) 31.3 % (37-47); Hemoglobin 9.5 g/dL (12.0-16.0); Mean Corpuscular Hgb Conc 30.4 g/dL (32-36); Mean Corpuscular Volume 95.4 fL (80-100); Mean Platelet Volume 9.2 fL (7.4-10.4); Platelet Count 178 K/uL (130-400); RDW Coefficient of Variation 14.6 % (11.5-14.5); Red Blood Count 3.28 M/uL (4.2-5.4); White Blood Count 12.71 K/uL (4.8-10.8)
[2019-10-01] MEDS: PROPAFENONE HCL 150 MG TABLET PO SCH ×3 (06:41→22:12)
[2019-10-01] MEDS: HEPARIN SOD 5,000 UNIT/0.5 ML VIAL SQ SCH ×3 (06:41→22:12)
[2019-10-01] MEDS: LEVOTHYROXINE SODIUM 88 MCG TABLET PO SCH (06:42)
[2019-10-01 06:45] LABS: BUN Creatinine Ratio 22.3 (10-20); Calcium 9.4 mg/dl (8.5-10.1); Creatinine Clr Calc Pharmacy 47.8 ml/min; Est GFR (African American) 52.7; Est GFR (Non-African American) 45.4; Potassium 3.2 mmol/L (3.5-5.1)
[2019-10-01] MEDS ORDERED: POTASSIUM CHLORIDE 20 MEQ TABCR PO STA (07:47)
--- NOTE | 2019-10-01 08:33 | Hospitalist Progress Note ---
Date of Service October 01, 2019 Assessment & Plan (1) Acute and chronic respiratory failure with hypercapnia: Has hx of chronic hypoxemic respiratory failure secondary pulm HTN 2 to COPD on home O2/OHS on CPAP Secondary to COPD exacerbation, Bronchiolitis, Possible aspiration pneumonia following emesis symptoms CT Chest did show RML tree-in-bud nodules suggestive of bronchiolitis and left lower lobe opacity reported as atelectasis Reported to have failed outpatient treatment Sputum cx from 07/2019 was positive for pseudomonas On zosyn. Will deescalate to azithromycin Continue Prednisone Continue nebs Increased WBC likely related to steroids (as WBC was normal on admission) is improving Incentive spirometry (2) Hypertension Was elevated on admission, likely due to current illness BP still elevated Continue amlodipine that has been increased to 10mg from home 5mg daily Added hydralazine Resume home diuretics (3) Paroxysmal atrial fibrillation Not on anticoagulation secondary to GI bleed (11/2018) Currently in sinus rhythm (4) Elevated creatinine Cr was mildly elevated from 1.15 on 08/18/2019 to 1.24 on admission Review of previous Cr over the past 3 months showed Cr has varied from 1.2 to 1.5 Patient has CKD 3 Cr went up to 1.42 after diuretic, down to 1.2 this AM Resume home diuretic Replete hypokalemia (5) Chronic anemia Likely secondary to CKD Stable in 10 PT OT eval DVT prophylaxis. Heparin subcu Full code Admission and Anticipated Discharge Date Admission Date: September 28, 2019 Subjective Patient seen and examined this morning. Reports that she is feeling much better. Still has cough and shortness of breath but improving Physical Exam Constitutional: + well hydrated; no acute distress Eyes: PERRL, conjunctivae normal, anicteric sclerae ENMT: external ear and nose normal, oropharynx normal Respiratory: normal respiratory effort; no respiratory distress Mild expiratory wheezes Cardiovascular: RRR, no murmur, no edema Gastrointestinal (Abdomen): normal bowel sounds, soft, nontender, no hepatosplenomegaly Neurologic: PERRL, EOMI, accommodation nl, no face palsy, no dysarthria Psychiatric: A+Ox3, euthymic affect Results & Data ([facility]) Vital Signs (Past 12 Hours) Vital Signs Temp Pulse Resp BP BP Pulse Ox 10/01/19 07:27 36.4 C L 61 16 156/78 H 98 10/01/19 07:25 85 17 98 10/01/19 04:23 36.5 C 86 18 144/73 H 99 10/01/19 02:36 86 20 99 09/30/19 23:39 86 18 98 09/30/19 23:30 36.7 C 90 18 144/80 H 94 Laboratory Results Short CBC 10/01/19 Range/Units 05:38 WBC 12.71 H (4.8-10.8) K/uL Hgb 9.5 L (12.0-16.0) g/dL Hct 31.3 L (37-47) % Plt Count 178 (130-400) K/uL BMP 10/01/19 05:38 Sodium 140 Potassium 3.2 L Chloride 99 Carbon Dioxide 38 H BUN 27 H Creatinine 1.20 Glucose 98 Calcium 9.4
[2019-10-01] MEDS: predniSONE 20 MG TAB PO SCH (08:34)
[2019-10-01] MEDS: METOPROLOL SUCC 50MG EXT REL TAB PO SCH (08:34)
[2019-10-01] MEDS: allopurinoL 300 MG TAB PO SCH (08:34)
[2019-10-01] MEDS: SERTRALINE HCL 50 MG TABLET PO SCH (08:34)
[2019-10-01] MEDS: AMLODIPINE BESYLATE 5 MG TAB PO SCH (08:34)
[2019-10-01] MEDS: ROFLUMILAST 500 MCG TAB PO SCH (08:34)
[2019-10-01] MEDS: MULTIVITAMIN TAB PO SCH (08:34)
[2019-10-01] MEDS: INSULIN GLARGINE SOLOSTAR 100 UNITS/ML 3 ML PEN SQ SCH (08:35)
[2019-10-01] MEDS: INSULIN ASPART 100 UNITS/ML 3 ML PEN SC SCH ×4 (08:36→20:57)
[2019-10-01] MEDS: HydrALAZINE 10 MG TAB PO SCH ×4 (09:57→20:13)
[2019-10-01] MEDS: FLUTICASONE/VILANTEROL 200/25MCG 14 PUFFS/INHALER INH SCH (09:57)
[2019-10-01] MEDS: BUMETANIDE 1 MG TAB PO SCH (17:16)
[2019-10-01] MEDS: ATORVASTATIN 20 MG TAB PO SCH (20:13)
[2019-10-01] MEDS: GABAPENTIN 600 MG TAB PO SCH (20:14)
[2019-10-02] MEDS: IPRATROPIUM BROMIDE NEB SOLN 0.02% 2.5 ML VIAL INH SCH ×6 (03:07→23:06)
[2019-10-02] MEDS: LEVALBUTEROL 1.25MG/0.5ML NEB INH SCH ×6 (03:07→23:06)
[2019-10-02 06:20] LABS: Hematocrit (blood only) 32.6 % (37-47); Hemoglobin 10.2 g/dL (12.0-16.0); Mean Corpuscular Hemoglobin 29.7 pg (25-34); Mean Corpuscular Hgb Conc 31.3 g/dL (32-36); Mean Corpuscular Volume 94.8 fL (80-100); Mean Platelet Volume 9.2 fL (7.4-10.4); Platelet Count 210 K/uL (130-400); RDW Coefficient of Variation 14.6 % (11.5-14.5); RDW Standard Deviation 50.5 fL (36.4-46.3); Red Blood Count 3.44 M/uL (4.2-5.4); White Blood Count 13.19 K/uL (4.8-10.8)
[2019-10-02] MEDS: PROPAFENONE HCL 150 MG TABLET PO SCH ×3 (06:35→21:13)
[2019-10-02] MEDS: LEVOTHYROXINE SODIUM 88 MCG TABLET PO SCH (06:35)
[2019-10-02] MEDS: HEPARIN SOD 5,000 UNIT/0.5 ML VIAL SQ SCH ×3 (06:35→21:14)
[2019-10-02 07:00] LABS: BUN Creatinine Ratio 24.2 (10-20); Calcium 10.1 mg/dl (8.5-10.1); Creatinine Clr Calc Pharmacy 44.7 ml/min; Est GFR (African American) 49.6; Est GFR (Non-African American) 42.8; Potassium 3.2 mmol/L (3.5-5.1)
[2019-10-02] MEDS: BUMETANIDE 1 MG TAB PO SCH ×2 (08:45→17:34)
[2019-10-02] MEDS: ROFLUMILAST 500 MCG TAB PO SCH (08:45)
[2019-10-02] MEDS: AZITHROMYCIN 250 MG TAB PO SCH (08:45)
[2019-10-02] MEDS: AMLODIPINE BESYLATE 5 MG TAB PO SCH (08:45)
[2019-10-02] MEDS: METOPROLOL SUCC 50MG EXT REL TAB PO SCH (08:45)
[2019-10-02] MEDS: FLUTICASONE/VILANTEROL 200/25MCG 14 PUFFS/INHALER INH SCH (08:45)
[2019-10-02] MEDS: HydrALAZINE 10 MG TAB PO SCH ×4 (08:45→21:12)
[2019-10-02] MEDS: INSULIN ASPART 100 UNITS/ML 3 ML PEN SC SCH ×4 (08:45→22:04)
[2019-10-02] MEDS: allopurinoL 300 MG TAB PO SCH (08:45)
[2019-10-02] MEDS: MULTIVITAMIN TAB PO SCH (08:45)
[2019-10-02] MEDS: SERTRALINE HCL 50 MG TABLET PO SCH (08:45)
[2019-10-02] MEDS: INSULIN GLARGINE SOLOSTAR 100 UNITS/ML 3 ML PEN SQ SCH (08:46)
--- NOTE | 2019-10-02 10:31 | Hospitalist Progress Note ---
Date of Service October 02, 2019 Assessment & Plan (1) Acute and chronic respiratory failure with hypercapnia: Has hx of chronic hypoxemic respiratory failure secondary pulm HTN 2 to COPD on home O2/OHS on CPAP Secondary to COPD exacerbation, Bronchiolitis, Possible aspiration pneumonia following emesis symptoms CT Chest did show RML tree-in-bud nodules suggestive of bronchiolitis and left lower lobe opacity reported as atelectasis Reported to have failed outpatient treatment Sputum cx from 07/2019 was positive for pseudomonas Was initially on zosyn. Switch to azithromycin yesterday Continue Prednisone. Today will be day 5. Will plan to taper off slowly tomorrow on discharge Continue nebs Increased WBC likely related to steroids (as WBC was normal on admission) Incentive spirometry (2) Hypertension Was elevated on admission, likely due to current illness BP still elevated but better than on admission Continue amlodipine that has been increased to 10mg from home 5mg daily Added hydralazine Home diuretic resumed. (3) Paroxysmal atrial fibrillation Not on anticoagulation secondary to GI bleed (11/2018) Currently in sinus rhythm (4) Elevated creatinine Cr was mildly elevated from 1.15 on 08/18/2019 to 1.24 on admission Review of previous Cr over the past 3 months showed Cr has varied from 1.2 to 1.5 Patient has CKD 3 Cr went up to 1.42 after diuretic Cr is 1.26 this AM Resume home diuretic Replete hypokalemia (5) Chronic anemia Likely secondary to CKD Stable in 10 PT OT eval DVT prophylaxis. Heparin subcu Full code Plan for discharge tomorrow Admission and Anticipated Discharge Date Admission Date: September 28, 2019 Subjective Patient seen and examined. Reports cough, shortness of breath continues to improve. Denies any fevers, chills, nausea vomiting. Physical Exam Constitutional: + well hydrated and + obese; no acute distress Eyes: PERRL, conjunctivae normal, anicteric sclerae ENMT: external ear and nose normal, oropharynx normal Respiratory: normal respiratory effort and + cough; no respiratory distress and no labored breathing Mild expiratory wheeze Cardiovascular: RRR, no murmur, no edema Rate/Rhythm: regular rate and regular rhythm Extremities: no pedal edema Gastrointestinal (Abdomen): normal bowel sounds, soft, nontender, no hepatosplenomegaly Musculoskeletal: no cyanosis or clubbing, extremities motor strength 5/5 Neurologic: PERRL, EOMI, accommodation nl, no face palsy, no dysarthria Psychiatric: A+Ox3, euthymic affect Results & Data ([facility]) Vital Signs (Past 12 Hours) Vital Signs Temp Pulse Pulse Resp BP BP Pulse Ox 10/02/19 09:00 93 H 10/02/19 07:10 92 H 18 97 10/02/19 07:00 36.3 C L 92 H 20 154/79 H 97 10/02/19 06:40 52 L 151/84 H 10/02/19 04:07 36.8 C 93 H 18 146/77 H 96 10/02/19 03:07 97 H 18 96 10/02/19 00:00 107 H 10/01/19 23:16 100 H 18 97 10/01/19 23:07 36.7 C 100 H 18 147/68 H 98 Laboratory Results Short CBC 10/02/19 Range/Units 06:01 WBC 13.19 H (4.8-10.8) K/uL Hgb 10.2 L (12.0-16.0) g/dL Hct 32.6 L (37-47) % Plt Count 210 (130-400) K/uL BMP 10/02/19 06:01 Sodium 139 Potassium 3.2 L Chloride 98 Carbon Dioxide 37 H BUN 31 H Creatinine 1.26 H Glucose 91 Calcium 10.1
[2019-10-02] MEDS: POTASSIUM CHLORIDE 20 MEQ TABCR PO SCH ×2 (11:57→21:13)
[2019-10-02] MEDS: TRAMADOL HCL 50 MG TABLET PO PRN ×2 (13:10→21:13)
[2019-10-02] MEDS: GABAPENTIN 600 MG TAB PO SCH (21:13)
[2019-10-02] MEDS: ATORVASTATIN 20 MG TAB PO SCH (21:13)
[2019-10-03] MEDS: LEVALBUTEROL 1.25MG/0.5ML NEB INH SCH ×3 (03:30→11:08)
[2019-10-03] MEDS: IPRATROPIUM BROMIDE NEB SOLN 0.02% 2.5 ML VIAL INH SCH ×3 (03:30→11:08)
[2019-10-03 06:09] LABS: Hematocrit (blood only) 32.7 % (37-47); Mean Corpuscular Hemoglobin 29.4 pg (25-34); Mean Corpuscular Hgb Conc 30.6 g/dL (32-36); Mean Corpuscular Volume 96.2 fL (80-100); Mean Platelet Volume 9.7 fL (7.4-10.4); Platelet Count 226 K/uL (130-400); RDW Coefficient of Variation 14.7 % (11.5-14.5); RDW Standard Deviation 52.2 fL (36.4-46.3)
[2019-10-03] MEDS: PROPAFENONE HCL 150 MG TABLET PO SCH (06:09)
[2019-10-03] MEDS: LEVOTHYROXINE SODIUM 88 MCG TABLET PO SCH (06:09)
[2019-10-03] MEDS: HEPARIN SOD 5,000 UNIT/0.5 ML VIAL SQ SCH (06:11)
[2019-10-03 06:39] LABS: BUN Creatinine Ratio 23.8 (10-20); Calcium 9.7 mg/dl (8.5-10.1); Creatinine Clr Calc Pharmacy 42.8 ml/min; Est GFR (African American) 46.9; Est GFR (Non-African American) 40.5; Potassium 3.8 mmol/L (3.5-5.1)
[2019-10-03] MEDS: INSULIN ASPART 100 UNITS/ML 3 ML PEN SC SCH (08:34)
[2019-10-03] MEDS: INSULIN GLARGINE SOLOSTAR 100 UNITS/ML 3 ML PEN SQ SCH (08:35)
[2019-10-03] MEDS: HydrALAZINE 10 MG TAB PO SCH (08:40)
[2019-10-03] MEDS: BUMETANIDE 1 MG TAB PO SCH (08:40)
[2019-10-03] MEDS: FLUTICASONE/VILANTEROL 200/25MCG 14 PUFFS/INHALER INH SCH (08:40)
[2019-10-03] MEDS: METOPROLOL SUCC 50MG EXT REL TAB PO SCH (08:40)
[2019-10-03] MEDS: MULTIVITAMIN TAB PO SCH (08:40)
[2019-10-03] MEDS: AMLODIPINE BESYLATE 5 MG TAB PO SCH (08:40)
[2019-10-03] MEDS: ROFLUMILAST 500 MCG TAB PO SCH (08:40)
[2019-10-03] MEDS: SERTRALINE HCL 50 MG TABLET PO SCH (08:41)
[2019-10-03] MEDS: allopurinoL 300 MG TAB PO SCH (08:41)
[2019-10-03] MEDS: AZITHROMYCIN 250 MG TAB PO SCH (08:41)
--- NOTE | 2019-10-03 09:21 | Discharge Summary ---
Date of Service October 03, 2019 Admission HPI Per Admitting Provider Chief Complaint: Worsening cough, S OB Primary Care Provider: Babak Melendez MD History obtained from patient and records. Medical history significant for chronic hypoxemic respiratory failure secondary pulmonary HTN secondary to COPD on home O2/ OHS on CPAP, paroxysmal atrial fibrillation not on anticoagulation secondary to GI bleed (11/2018), hypertension, chronic diastolic heart failure, EF of 60-65%, TTE 2019, past tobacco abuse, chronic anemia (baseline hemoglobin of 8-9). Recent confinement last month for right-sided back pain. Patient discharged home. Has not been able to follow-up with PCP the last few months. 1 week history of junky cough symptoms with some shortness of breath. Achy headache, nausea, emesis symptoms without abdominal pain. Good BM. Poor appetite. No known sick contacts, no recent travel PCP prescribed doxycycline and prednisone course 2 days ago. Worsening symptoms despite medication compliance. At the ER, patient received ceftriaxone, nebs, Solu-Medrol for COPD exace rbation. Medical History as above Surgical History : Appendectomy, cholecystectomy, wrist surgery, shoulder surgery, hip replacement, neck surgery Family History : Diabetes, heart disease Personal/Social history : Past tobacco abuse, no EtOH intake, retired from [employer] work Admission Exam Per Admitting Provider GENERAL: Anxious, obese, minimal respiratory distress SKIN: Pallor , warm HEENT: pale palpebral conjunctivae, no ptosis, dry buccal mucosa, nasal cannula in place NECK : Supple, short neck, no tenderness CHEST : Expiratory wheezes, no tenderness HEART : RRR, no obvious murmurs ABDOMEN: distention, nontender EXTREMITIES : Bilateral LE swelling, no LE tenderness, no other conspicuous deformities noted NEUROLOGIC : Coherent, no facial asymmetry, slightly hard of hearing, gait and stance not assessed Principal Diagnosis COPD exacerbation Bronchiolitis Acute on chronic respiratory failure with hypoxia hypercapnia Discharge Exam Constitutional + well hydrated and + obese; no acute distress Eyes PERRL, conjunctivae normal, anicteric sclerae ENMT external ear and nose normal, oropharynx normal Respiratory normal respiratory effort; no respiratory distress and no labored breathing Globally reduced air entry. No wheeze or crackles Cardiovascular RRR, no murmur, no edema Rate/Rhythm: regular rate and regular rhythm Extremities: no pedal edema Gastrointestinal (Abdomen) normal bowel sounds, soft, nontender, no hepatosplenomegaly Musculoskeletal no cyanosis or clubbing, extremities motor strength 5/5 Neurologic PERRL, EOMI, accommodation nl, no face palsy, no dysarthria Psychiatric A+Ox3, euthymic affect Discharge Data Allergies Allergy/AdvReac Type Severity Reaction Status Date / Time adhesive Allergy Severe RED RASH Verified 09/27/19 22:37 latex AdvReac Mild TAPE-SORE Verified 09/27/19 22:37 morphine AdvReac Mild DELUSIONS Verified 09/27/19 22:37 Consultations 09/27/19 22:57 ED Decision to Admit Stat 09/28/19 00:53 Consult Case Management - Discharge Planning Routine Ordered Studies 09/27/19 23:23 CT chest wo con Urgent FINDINGS: Moderate cardiomegaly is noted. There is no pericardial effusion. Moderate coronary artery calcification is noted. Mildly enlarged subcarinal lymph nodes measure up to 1.5 cm in short axis diameter. There are prominent right paratracheal lymph nodes. Bronchial wall thickening is noted. Left lower lobe airspace opacity with volume loss is unchanged. This favors atelectasis. Mild tree-in-bud nodules within the right middle and right lower lobes are noted. There is no lobar consolidation. Mild emphysema is present. No pneumothorax or pleural effusion is noted. There are multiple old bilateral rib fractures. There is a 1 level vertebroplasty within the thoracic spine. Upper abdomen is unremarkable on this unenhanced exam. IMPRESSION: 1. Mild tree-in-bud nodules within the right middle right lower lobe which favors an infectious bronchiolitis. No change in left lower lobe subpleural airspace opacities with fine loss which favors atelectasis. Bronchial wall thickening. 2. Mildly enlarged mediastinal lymph nodes. This can be assessed with a follow- up chest CT in 6 months. 3. Mild emphysema. CT head/brain wo con Urgent Hospital Course (1) Acute and chronic respiratory failure with hypercapnia: Has hx of chronic hypoxemic respiratory failure secondary pulm HTN 2 to COPD on home O2/OHS on CPAP Secondary to COPD exacerbation, Bronchiolitis Possible aspiration pneumonitis/pnuemonia following emesis symptoms CT Chest did show RML tree-in-bud nodules suggestive of bronchiolitis and left lower lobe opacity reported as atelectasis Reported to have failed outpatient treatment Sputum cx from 07/2019 was positive for pseudomonas Was initially on zosyn. Switch to azithromycin with clinical improvement Treated with prednisone 40mg daily for 5 days. Will discharge on taper of 20mg daily for another 3 days Treated with nebs. To continue home inhalers on discharge Currently on baseline oxygen requirement Continue home CPAP HS (2) Hypertension Was elevated on admission, likely due to current illness BP still elevated but better than on admission Continue amlodipine that has been increased to 10mg from home 5mg daily Added hydralazine Continue home diuretic bumex (3) Paroxysmal atrial fibrillation Not on anticoagulation secondary to GI bleed (11/2018) Currently in sinus rhythm (4) Elevated creatinine Cr was mildly elevated from 1.15 on 08/18/2019 to 1.24 on admission Review of previous Cr over the past 3 months showed Cr has varied from 1.2 to 1.5 Patient has CKD 3 Cr went up to 1.42 after diuretic Cr is 1.32 today Continue home bumex (5) Chronic anemia Likely secondary to CKD Stable in 10 Total Time Total Time Spent Total Time Spent (In Minutes): 35 Total Time Includes: Examination of the Patient, Discharge Planning and Medication Reconciliation Discharge Plan Discharge Items Patient Disposition: Home - Self-Care Reason For Visit: RESP FAILURE Discharge Diagnosis: COPD exacerbation Activity: Resume your previous activity Non-emergency contact: Primary Care Provider Call non-emergency contact if: you have any medication questions and your symptoms worsen Follow-up/Referrals: Babak Melendez MD [Primary Care Provider] - 10/05/19 10:45 am Diet: Regular, Carb Consistent or DM2 and Heart Healthy Addtl Attending Provider Instructions: Mrs Lee You came to the hospital with shortness of breath and cough. You were treated for COPD exacerbation. Your symptoms improved. You are being discharged on three more days of prednisone. Please take medications and inhalers as prescribed. Your blood pressure medication amlodipine was increased to 10mg daily for better blood pressure control It was a pleasure taking care of you. Pending Studies at Discharge: No Stand-Alone Forms: [facility] [employer], Smoking Cessation Medications and DC Order Prescriptions: New azithromycin [Zithromax] 250 mg Tablet 250 mg PO QAM 3 Days Qty: 3 RF: 0 Continued Breo Ellipta 200-25 mcg/dose Blister With Device 1 inh INHALATION DAILY RF: 0 multivitamin Tablet 1 tab PO QAM RF: 0 propafenone 150 mg Tablet 150 mg PO Q8H RF: 0 gabapentin 600 mg Tablet 300 mg PO HS RF: 0 atorvastatin 20 mg Tablet 20 mg PO QPM RF: 0 metoprolol succinate 50 mg Tablet Extended Release 24 Hr 50 mg PO QAM RF: 0 levothyroxine 88 mcg Tablet 88 mcg PO DAILYBB RF: 0 ranitidine HCl 150 mg Tablet 150 mg PO BID RF: 0 sertraline [Zoloft] 25 mg Tablet 25 mg PO QAM RF: 0 allopurinol 300 mg Tablet 300 mg PO QAM RF: 0 cholecalciferol (vitamin D3) [Vitamin D3] 2,000 unit Tablet 2,000 unit PO QAM RF: 0 Daliresp 500 mcg Tablet 500 mcg PO DAILY RF: 0 albuterol sulfate 2.5 mg /3 mL (0.083 %) Solution For Nebulization 2.5 mg INHALATION Q6 PRN (Reason: Shortness Of Breath Or Wheezing) RF: 0 Spiriva with HandiHaler 18 mcg capsule, w/inhalation device 1 cap INH DAILY Qty: 30 RF: 3 bumetanide 1 mg Tablet 1 mg PO BID17 Qty: 60 RF: 1 tramadol 50 mg Tablet 50 mg PO Q4H PRN (Reason: pain) Qty: 20 RF: 0 potassium chloride [Klor-Con M20] 20 mEq tablet,ER particles/crystals 20 meq PO Q OTHER DAY RF: 0 diclofenac sodium [Voltaren] 1 % gel 4 g EXT QID RF: 0 Changed prednisone 10 mg tablet 20 mg PO DAILY 3 Days Qty: 6 RF: 0 amlodipine [Norvasc] 5 mg Tablet 10 mg PO QAM Qty: 30 RF: 1 Discontinued ibuprofen 600 mg tablet 600 mg PO TID PRN (Reason: pain) Qty: 30 RF: 0 doxycycline hyclate 100 mg capsule 100 mg PO BID RF: 0 Discharge Orders: Discharge Order (Routine); Ordered 10/03/19 Ordered By: Jaclyn Nesbitt Admission Data Admit Date/Time: 09/28/19 00:05 Attending Provider: Jaclyn Nesbitt I. Admit Provider: Spencer Lowery Primary Care Provider: Babak Melendez Other Providers: Spencer Lowery Other Interventions: Discharge Summary Assessment (RN) Last Done: 10/03/19 10:00 DC Date/Time DO NOT enter until pt leaves facility: 10/03/19 11:35
== END 2019-10-03 11:35 | disposition home or self-care (01) | DRG 190 ==
LOC: ED 21:14 → 2N 09-28 00:05

== ENCOUNTER 2019-12-02 14:08 | Inpatient (IN) ==
[2019-12-02] MEDS ORDERED: ALBUT/IPRATROP 3MG/0.5MG NEB 3 ML VIAL INH STA (14:33)
[2019-12-02] MEDS ORDERED: methylPREDNISolone 60 MG in SYRINGE 1 ML IV STA (14:33)
--- NOTE | 2019-12-02 14:39 | Emergency Department Note ---
Impression & Plan SOB (shortness of breath), COPD exacerbation, Acute bronchitis, Weakness, Hypomagnesemia ED Provider Note NAME: DIONNE SAL AGE: 69 SEX: F : 1950 ARRIVES VIA: Ambulance INFORMANT: [Patient][ems, nurses] ED PROVIDER(S): [Juan J Escobar MD] CHIEF COMPLAINT: Shortness of breath HISTORY OF PRESENT ILLNESS: The patient is a 69-year-old female with a history of COPD. She presents to the ER by ambulance for shortness of breath that has been present for a few days. The shortness of breath is worse with any exertion. She wears 4 L of oxygen at all times. She is using her nebulizer at home which helps some. Last night, she called EMS but did not come to the hospital as her O2 saturation was adequate. Today, she called EMS and decided to come for evaluation. There has been some increased cough that is occasionally productive. No chest pain. No fever. The patient has not had vomiting or diarrhea. The patient has been hospitalized in the past for pneumonia and flareups of COPD. She is not currently on any antibiotic or steroid. The patient has had no known coronavirus exposures. REVIEW OF SYSTEMS: See HPI for pertinent positives and negatives. A total of ten systems were reviewed and were otherwise negative. PMHx/PSHx: See Below SOCIAL HISTORY: See Below. PHYSICAL EXAM: GENERAL: Patient is in no acute distress. HEENT: No acute trauma, normocephalic atraumatic, mucous membranes dry, no nasal congestion, no scleral icterus. NECK: No stridor, no adenopathy, no meningismus, trachea is midline. LUNGS: No respiratory distress, wheezing bilaterally. There are some crackles at the right base. Breath sounds are equal. HEART: Subtle systolic murmur, regular rate and rhythm. ABDOMEN: Soft, nontender, bowel sounds positive, no hernias, no peritonitis. EXTREMITIES: No cyanosis or edema, full range of motion of all the joints without pain or difficulty, no signs for acute trauma. NEUROLOGIC: Oriented x 3, no acute motor or sensory deficits, no focal weakness. SKIN: No rash, no jaundice, no diaphoresis. DIFFERENTIAL DIAGNOSIS: Reactive airway disease, pneumonia, pneumothorax, coronavirus, COPD, CHF, infections, cardiac ischemia, pulmonary embolism, musculoskeletal, gastrointestinal, as well as other pathologies. EMERGENCY DEPARTMENT COURSE/PROCEDURES: ECG: Indication is shortness of breath. The EKG shows a normal sinus rhythm with a rate of 65. There is no ST elevation, no PVCs. The QTc is 482. Continuous Cardiac Monitoring: An order was placed for continuous cardiac monitoring. The monitor shows a rate of 68 with normal sinus rhythm. MEDICAL DECISION MAKING: There is a mild leukocytosis, this could be consistent with infection although, the patient has a history of a higher white blood cell count when looking back at previous testing. The patient is anemic but this is baseline looking back at previous testing. There is a normal platelet count. No coagulopathy. ABG shows a mild alkalosis. There is a mild CO2 elevation but this is chronic for the patient. No hypoxia. No significant electrolyte abnormality aside from a magnesium slightly low at 1.7. No kidney failure. No worrisome liver enzyme elevation. EKG shows a normal sinus rhythm, no acute ischemia. Cardiac enzyme testing x1 is not consistent with acute cardiac injury. Chest x-ray shows chronic findings, no obvious focal infiltrate, no evidence for CHF. On exam, the patient was wheezing with some crackles on the right. She was not febrile, she appeared fatigued/weak. The patient received IV magnesium, IV saline, IV Solu-Medrol, a DuoNeb and IV ceftriaxone. The patient presents with increasing shortness of breath, cough. She has COPD. She is a chronic O2 user. She has been weak, she cannot function at home and I do not think is stable for discharge. Further care, possibly rehab/placement is required. The cause for her entire presentation is unclear but certainly she may have an acute bronchitis that has flared up her COPD. She has a lot of other underlying issues that are compounding her presentation. I did speak to the patient, I talked with case management. The on-call hospitalist has been consulted. 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) Hx of cholecystectomy (Chronic) S/P cervical spinal fusion (Chronic) S/P wrist surgery (Chronic) Family History Father Trauma Mother Diabetes Cerebral aneurysm Daughter Bipolar 1 disorder Social History Preferred Language: Wolof Communication Ability: Effective Cloud Architect Required: No Beliefs That Will Affect Care: None marital status: Current Living Situation: Family Current Living Situation Comment: dtr Feels Safe at Home: Yes Smoking Status: Never smoker Tobacco Type: cigarettes ; Cigarettes Per Day: 2 packs ; Second Hand Exposure: No ; Hx Alcohol Use: No Hx Substance Use: No Allergies Allergies Allergy/AdvReac Type Severity Reaction Status Date / Time adhesive Allergy Severe RED RASH Verified 12/02/19 15:26 latex AdvReac Mild TAPE-SORE Verified 12/02/19 15:26 morphine AdvReac Mild DELUSIONS Verified 12/02/19 15:26 Home Meds Home Medications Medication Instructions Recorded Confirmed Breo Ellipta 1 inh INHALATION DAILY 03/12/18 12/02/19 Daliresp 500 mcg PO DAILY 03/12/18 12/02/19 allopurinol 300 mg PO QAM 03/12/18 12/02/19 atorvastatin 20 mg PO QPM 03/12/18 12/02/19 cholecalciferol (vitamin D3) 2,000 unit PO QAM 03/12/18 12/02/19 [Vitamin D3] gabapentin 300 mg PO HS 03/12/18 12/02/19 levothyroxine 88 mcg PO DAILYBB 03/12/18 12/02/19 metoprolol succinate 50 mg PO QAM 03/12/18 12/02/19 multivitamin 1 tab PO QAM 03/12/18 12/02/19 propafenone 150 mg PO Q8H 03/12/18 12/02/19 ranitidine HCl 150 mg PO BID 03/12/18 12/02/19 sertraline [Zoloft] 25 mg PO QAM 03/12/18 12/02/19 albuterol sulfate 2.5 mg INHALATION Q6 PRN 08/07/18 12/02/19 diclofenac sodium [Voltaren] 4 g EXT QID 09/27/19 12/02/19 potassium chloride [Klor-Con M20] 20 meq PO Q OTHER DAY 09/27/19 12/02/19 bumetanide 1 mg PO BID 12/02/19 12/02/19 metolazone 2.5 mg PO MOFR 12/02/19 12/02/19 Previous Rx's Medication Instructions Recorded Spiriva with HandiHaler 1 cap INH DAILY #30 puffs 08/03/19 tramadol 50 mg PO Q4H PRN #20 tab 08/19/19 amlodipine [Norvasc] 10 mg PO QAM #30 tab 10/03/19 Results & Data (ED) Vital Signs Vital Signs - 24 hr 12/02/19 14:22 12/02/19 14:25 12/02/19 14:30 Temperature 36.9 C Temperature Source Oral Pulse Rate 64 60 Pulse Rate [Left Finger] Pulse Rate from SpO2 Sensor 61 67 Respiratory Rate 18 16 24 Respiratory Effort / Characteristics Blood Pressure 152/72 H 186/69 H Blood Pressure [Right Arm] Blood Pressure Mean 98 99 Blood Pressure Mean [Right Arm] Pulse Oximetry 98 97 99 Oxygen Delivery Method Nasal Cannula Oxygen Flow Rate 4 Sepsis Recent Fever Within 48 Hours No Sepsis New/Unexplained Change in Mental Status No Sepsis Action Taken by Nursing No Action Required 12/02/19 14:33 12/02/19 15:00 12/02/19 15:14 Temperature Temperature Source Pulse Rate 64 Pulse Rate [Left Finger] 76 Pulse Rate from SpO2 Sensor 63 Respiratory Rate 14 20 Respiratory Effort / Characteristics Non-Labored Spontaneous Blood Pressure Blood Pressure [Right Arm] Blood Pressure Mean Blood Pressure Mean [Right Arm] Pulse Oximetry 99 100 99 Oxygen Delivery Method Nasal Cannula Nasal Cannula Oxygen Flow Rate 4 4 Sepsis Recent Fever Within 48 Hours Sepsis New/Unexplained Change in Mental Status Sepsis Action Taken by Nursing 12/02/19 15:30 12/02/19 16:00 12/02/19 16:26 Temperature Temperature Source Pulse Rate 67 68 Pulse Rate [Left Finger] 68 Pulse Rate from SpO2 Sensor 67 68 Respiratory Rate 20 18 24 Respiratory Effort / Characteristics Blood Pressure Blood Pressure [Right Arm] 154/73 H Blood Pressure Mean Blood Pressure Mean [Right Arm] 100 Pulse Oximetry 100 100 100 Oxygen Delivery Method Nasal Cannula Oxygen Flow Rate 4 Sepsis Recent Fever Within 48 Hours Sepsis New/Unexplained Change in Mental Status Sepsis Action Taken by Nursing 12/02/19 16:27 12/02/19 16:30 Temperature Temperature Source Pulse Rate 72 68 Pulse Rate [Left Finger] Pulse Rate from SpO2 Sensor 72 68 Respiratory Rate 24 23 Respiratory Effort / Characteristics Blood Pressure 154/73 H 168/77 H Blood Pressure [Right Arm] Blood Pressure Mean 92 92 Blood Pressure Mean [Right Arm] Pulse Oximetry 100 100 Oxygen Delivery Method Oxygen Flow Rate Sepsis Recent Fever Within 48 Hours Sepsis New/Unexplained Change in Mental Status Sepsis Action Taken by [facility] Medications Current Medication List: was personally reviewed by me Laboratory Data Attestation: I reviewed the patient's lab results. Result diagrams: 12/02/19 14:55 12/02/19 14:55 Lab Results 12/02/19 12/02/19 12/02/19 Range/Units 14:55 14:55 14:55 WBC 12.19 H (4.8-10.8) K/uL RBC 3.18 L (4.2-5.4) M/uL Hgb 9.4 L (12.0-16.0) g/dL Hct 30.1 L (37-47) % MCV 94.7 (80-100) fL MCH 29.6 (25-34) pg MCHC 31.2 L (32-36) g/dL RDW Std Deviation 50.3 H (36.4-46.3) fL RDW Coeff of Araeblla 14.9 H (11.5-14.5) % Plt Count 200 (130-400) K/uL MPV 9.3 (7.4-10.4) fL Immature Gran % (Auto) 0.2 % Neut % (Auto) 80.3 % Lymph % (Auto) 12.7 % [place] % (Auto) 5.0 % Eos % (Auto) 1.6 % Baso % (Auto) 0.2 % Immature Gran # (Auto) 0.02 (0.00-0.02) K/uL Neut # (Auto) 9.80 H (1.4-6.5) K/uL Lymph # (Auto) 1.55 (1.2-3.4) K/uL [place] # (Auto) 0.61 H (0.11-0.59) K/uL Eos # (Auto) 0.19 (0-0.5) K/uL Baso # (Auto) 0.02 (0-0.2) K/uL PT 11.5 (9.0-12.0) Seconds INR 1.1 (0.9-1.1) APTT 24.7 (21.0-31.0) Seconds PTT Ratio 0.9 ABG pH (7.35-7.45) ABG pCO2 (35-46) mmHg ABG pO2 (80-95) mmHg ABG HCO3 (19-24) mmol/L ABG O2 Saturation (90-95) % ABG Base Excess (-9-1.8) mEq/L Alvaro Test (Pos) Barometric Pressure mm/Hg Oxygen Given Sodium 139 (136-145) mmol/L Potassium 3.5 (3.5-5.1) mmol/L Chloride 94 L (98-107) mmol/L Carbon Dioxide 37 H (21-32) mmol/L Anion Gap 8.0 (3-11) BUN 24 H (7-18) mg/dl Creatinine 1.00 (0.6-1.2) mg/dl Est Cr Clr Drug Dosing 60.3 ml/min Est GFR ( Amer) 65.6 Est GFR (Non-Af Amer) 56.6 BUN/Creatinine Ratio 23.8 H (10-20) Glucose 105 H (70-99) mg/dl Calcium 10.5 H (8.5-10.1) mg/dl Magnesium 1.7 L (1.8-2.4) mg/dl Total Bilirubin 0.5 (0.2-1) mg/dl AST 12 L (15-37) U/L ALT 14 (12-78) U/L Alkaline Phosphatase 87 (45-117) U/L Troponin I < 0.015 (0-0.045) ng/ml Total Protein 7.7 (6.4-8.2) gm/dl Albumin 3.0 L (3.4-5.0) gm/dl Globulin 4.7 H (2.5-4.0) gm/dl Albumin/Globulin Ratio 0.6 L (0.9-2) / Range/Units 14:55 WBC (4.8-10.8) K/uL RBC (4.2-5.4) M/uL Hgb (12.0-16.0) g/dL Hct (37-47) % MCV (80-100) fL MCH (25-34) pg MCHC (32-36) g/dL RDW Std Deviation (36.4-46.3) fL RDW Coeff of Arabella (11.5-14.5) % Plt Count (130-400) K/uL MPV (7.4-10.4) fL Immature Gran % (Auto) % Neut % (Auto) % Lymph % (Auto) % [place] % (Auto) % Eos % (Auto) % Baso % (Auto) % Immature Gran # (Auto) (0.00-0.02) K/uL Neut # (Auto) (1.4-6.5) K/uL Lymph # (Auto) (1.2-3.4) K/uL [place] # (Auto) (0.11-0.59) K/uL Eos # (Auto) (0-0.5) K/uL Baso # (Auto) (0-0.2) K/uL PT (9.0-12.0) Seconds INR (0.9-1.1) APTT (21.0-31.0) Seconds PTT Ratio ABG pH 7.49 H (7.35-7.45) ABG pCO2 50 H (35-46) mmHg ABG pO2 98 H (80-95) mmHg ABG HCO3 37 H (19-24) mmol/L ABG O2 Saturation 97.7 H (90-95) % ABG Base Excess 12.5 H (-9-1.8) mEq/L Alvaro Test POS (Pos) Barometric Pressure 732.1 mm/Hg Oxygen Given 4L O2 Sodium (136-145) mmol/L Potassium (3.5-5.1) mmol/L Chloride (98-107) mmol/L Carbon Dioxide (21-32) mmol/L Anion Gap (3-11) BUN (7-18) mg/dl Creatinine (0.6-1.2) mg/dl Est Cr Clr Drug Dosing ml/min Est GFR ( Amer) Est GFR (Non-Af Amer) BUN/Creatinine Ratio (10-20) Glucose (70-99) mg/dl Calcium (8.5-10.1) mg/dl Magnesium (1.8-2.4) mg/dl Total Bilirubin (0.2-1) mg/dl AST (15-37) U/L ALT (12-78) U/L Alkaline Phosphatase (45-117) U/L Troponin I (0-0.045) ng/ml Total Protein (6.4-8.2) gm/dl Albumin (3.4-5.0) gm/dl Globulin (2.5-4.0) gm/dl Albumin/Globulin Ratio (0.9-2) Administered Medications Discontinued Medications Albuterol (Duoneb) 3 ml INH NOW STA Stop: 12/02/19 14:34 Last Admin: 12/02/19 15:12 Dose: 3 ml Documented by: [id number] Methylprednisolone 60 mg/ (Syringe) 1.96 mls @ 1.5 mls/min IV NOW STA Stop: 12/02/19 14:34 Last Admin: 12/02/19 15:36 Dose: 1.5 mls/min Documented by: [id number] Magnesium Sulfate/Dextrose (Magnesium Sulfate / D5w) 1 gm in 100 mls @ 100 ml s/hr IV NOW STA Stop: 12/02/19 16:44 Last Infusion: 12/02/19 16:48 Dose: 0 mls/hr Documented by: [id number] Admin: 12/02/19 15:54 Dose: 100 mls/hr Documented by: [id number] Sodium Chloride (Nss 1000ml) 500 mls @ 999 mls/hr IV .Q31M ONE Stop: 12/02/19 16:57 Last Admin: 12/02/19 16:37 Dose: 500 mls/hr Documented by: [id number] Methylprednisolone (Solumedrol) Confirm Administered Dose 125 mg .ROUTE .STK-MED ONE Stop: 12/02/19 15:34 Last Admin: 12/02/19 15:36 Dose: Not Given Documented by: [id number] Imaging Data Radiologist's Impression: XR chest 1V portable HISTORY: Shortness of breath. COMPARISON: Chest 10/16/2019. FINDINGS: No pneumothorax. No pleural effusions. The heart remains mildly enlarged. Stable bilateral hilar prominence and diffuse interstitial thickening. Old, healed right-sided rib fractures. Linear density left lung base also persists. No evidence for pulmonary edema. No new focal lung consolidations. Prior thoracic spine vertebroplasty. There is a right shoulder prosthesis. IMPRESSION: 1. No change compared to the prior study. 2. Chronic interstitial thickening and the left basilar densities persist. Therefore, this favors atelectasis/scarring. No new focal lung consolidations to suggest pneumonia. 3. Stable bilateral hilar prominence. Blood Pressure Blood Pressure Findings: Elevated blood pressure Blood Pressure Disposition: further management by hospitalist Discharge Plan Visit Data Chief Complaint: Cardiac Assessment Stated Complaint: SOB ED Provider: Juan J Escobar Discharge Problem: SOB (shortness of breath), COPD exacerbation, Acute bronchitis, Weakness, Hypomagnesemia Patient Disposition: Being Evaluated by Hospitalist Condition: Fair Forms Stand Alone Forms: My [facility] [employer] Prescriptions Prescriptions: No Action Breo Ellipta 200-25 mcg/dose Blister With Device 1 inh INHALATION DAILY RF: 0 multivitamin Tablet 1 tab PO QAM RF: 0 propafenone 150 mg Tablet 150 mg PO Q8H RF: 0 gabapentin 600 mg Tablet 300 mg PO HS RF: 0 atorvastatin 20 mg Tablet 20 mg PO QPM RF: 0 metoprolol succinate 50 mg Tablet Extended Release 24 Hr 50 mg PO QAM RF: 0 levothyroxine 88 mcg Tablet 88 mcg PO DAILYBB RF: 0 ranitidine HCl 150 mg Tablet 150 mg PO BID RF: 0 sertraline [Zoloft] 25 mg Tablet 25 mg PO QAM RF: 0 allopurinol 300 mg Tablet 300 mg PO QAM RF: 0 cholecalciferol (vitamin D3) [Vitamin D3] 2,000 unit Tablet 2,000 unit PO QAM RF: 0 Daliresp 500 mcg Tablet 500 mcg PO DAILY RF: 0 albuterol sulfate 2.5 mg /3 mL (0.083 %) Solution For Nebulization 2.5 mg INHALATION Q6 PRN (Reason: Shortness Of Breath Or Wheezing) RF: 0 Spiriva with HandiHaler 18 mcg capsule, w/inhalation device 1 cap INH DAILY Qty: 30 RF: 3 tramadol 50 mg Tablet 50 mg PO Q4H PRN (Reason: pain) Qty: 20 RF: 0 potassium chloride [Klor-Con M20] 20 mEq tablet,ER particles/crystals 20 meq PO Q OTHER DAY RF: 0 diclofenac sodium [Voltaren] 1 % gel 4 g EXT QID RF: 0 amlodipine [Norvasc] 5 mg Tablet 10 mg PO QAM Qty: 30 RF: 1 metolazone 2.5 mg tablet 2.5 mg PO MOFR RF: 0 bumetanide 1 mg tablet 1 mg PO BID RF: 0 Referrals Referrals: Babak Melendez MD [Primary Care Provider] - Discharge Problem: Acute bronchitis Qualifiers: Bronchitis organism: unspecified organism Qualified Code(s): J20.9 - Acute bronchitis, unspecified
[2019-12-02 15:08] LABS: Basophils # (auto) 0.02 K/uL (0-0.2); Basophils % (auto) 0.2 %; Eosinophils # (auto) 0.19 K/uL (0-0.5); Eosinophils % (auto) 1.6 %; Hematocrit (blood only) 30.1 % (37-47); Hemoglobin 9.4 g/dL (12.0-16.0); Immature Granulocytes # (auto) 0.02 K/uL (0.00-0.02); Immature Granulocytes % (auto) 0.2 %; Lymphocytes # (auto) 1.55 K/uL (1.2-3.4); Lymphocytes % (auto) 12.7 %; Mean Corpuscular Hemoglobin 29.6 pg (25-34); Mean Corpuscular Hgb Conc 31.2 g/dL (32-36); Mean Corpuscular Volume 94.7 fL (80-100); Mean Platelet Volume 9.3 fL (7.4-10.4); Monocytes # (auto) 0.61 K/uL (0.11-0.59); Neutrophils % (auto) 80.3 %; Platelet Count 200 K/uL (130-400); RDW Coefficient of Variation 14.9 % (11.5-14.5); RDW Standard Deviation 50.3 fL (36.4-46.3); Red Blood Count 3.18 M/uL (4.2-5.4); White Blood Count 12.19 K/uL (4.8-10.8)
[2019-12-02 15:10] LABS: Base Excess ABG 12.5 mEq/L (-9-1.8); HCO3 ABG 37 mmol/L (19-24); Oxygen Saturation ABG 97.7 % (90-95); PCO2 ABG 50 mmHg (35-46); PO2 ABG 98 mmHg (80-95); pH ABG 7.49 (7.35-7.45)
[2019-12-02 15:21] LABS: INR 1.1 (0.9-1.1); Partial Thromboplastin Ratio 0.9; Partial Thromboplastin Time 24.7 Seconds (21.0-31.0); Prothrombin Time 11.5 Seconds (9.0-12.0)
[2019-12-02 15:23] LABS: Aspartate Aminotransferase 12 U/L (15-37); BUN Creatinine Ratio 23.8 (10-20); Blood Urea Nitrogen 24 mg/dl (7-18); Calcium 10.5 mg/dl (8.5-10.1); Carbon Dioxide 37 mmol/L (21-32); Chloride 94 mmol/L (98-107); Creatinine Clr Calc Pharmacy 60.3 ml/min; Est GFR (African American) 65.6; Est GFR (Non-African American) 56.6; Glucose 105 mg/dl (70-99); Magnesium 1.7 mg/dl (1.8-2.4); Potassium 3.5 mmol/L (3.5-5.1); Sodium 139 mmol/L (136-145)
[2019-12-02 15:24] LABS: Allen Test POS (Pos)
[2019-12-02 15:27] LABS: Alanine Aminotransferase 14 U/L (12-78); Albumin Globulin Ratio 0.6 (0.9-2); Alkaline Phosphatase 87 U/L (45-117); Bilirubin,Total 0.5 mg/dl (0.2-1); Globulin 4.7 gm/dl (2.5-4.0); Total Protein 7.7 gm/dl (6.4-8.2); Troponin I < 0.015 ng/ml (0-0.045)
--- NOTE | 2019-12-02 15:31 | XRay Report ---
XR chest 1V portable HISTORY: Shortness of breath. COMPARISON: Chest 10/16/2019. FINDINGS: No pneumothorax. No pleural effusions. The heart remains mildly enlarged. Stable bilateral hilar prominence and diffuse interstitial thickening. Old, healed right-sided rib fractures. Linear d ensity left lung base also persists. No evidence for pulmonary edema. No new focal lung consolidation s. Prior thoracic spine vertebroplasty. There is a right shoulder prosthesis. IMPRESSION: 1. No change compared to the prior study. 2. Chronic interstitial thickening and the left basilar densities persist. Therefore, this favors ate lectasis/scarring. No new focal lung consolidations to suggest pneumonia. 3. Stable bilateral hilar prominence. ACT 112: Negative or not required by law. Electronically signed by: Henry Bourne M.D. 12/02/2019 3:29 PM
[2019-12-02] MEDS ORDERED: methylPREDNISolone 125 MG/2 ML VIAL ONE (15:33)
[2019-12-02] MEDS ORDERED: MAGNESIUM SULFATE / D5W 1 GM/100 ML BAG IV STA (15:45)
[2019-12-02] MEDS ORDERED: SODIUM CHLORIDE 0.9% 1000ML 500 ML IV ONE (16:27)
[2019-12-02] MEDS ORDERED: cefTRIAXone SODIUM 2,000 MG/70 ML BAG IV STA (16:56)
--- NOTE | 2019-12-02 17:22 | History & Physical Report ---
Date of Service December 02, 2019 Assessment & Plan (1) COPD exacerbation: Acute COPD Exacerbation Acute on chronic respiratory failure with hypercapnia Chronic Oxygen dependency: 4 liters at baseline CXR:No change compared to the prior study. Chronic interstitial thickening and the left basilar densities persist. Therefore, this favors atelectasis/scarring. No new focal lung consolidations to suggest pneumonia. Stable bilateral hilar prominence. Negative COVID screen Troponin negative EKG:pending Start on Rocephin, Doxycycline IV solu-medrol, bronchodilators Get Blood/sputum culture and gram strain Oxygen support per protocol Repeat labs in AM Aspiration precautions Consider pulmonary evaluation if no improvement Diarrhea Check Stool Studies Consider Imaging studies if abd pain persists Hypomagnesemia Replace electrolytes as needed Chronic Leukocytosis Likely due to steroids Paroxysmal atrial fibrillation Not on anticoagulation due to his GI bleed Continue propafenone HTN: BP elevated in ED likely situational Continue on amlodipine, metoprolol Monitor Morbid obesity BMI:39 CKD III Baseline Cr ~12-1.5 Cr at baseline Monitor renal function Avoid nephrotoxic agents as able Chronic diastolic heart failure No signs of decompensation Continue home diuretics Monitor volume status GERD Continue PPI Dyslipidemia Continue statin Chronic Anemia Iron deficiency anemia Hb near baseline Monitor CBC Anxiety and depression Continue home medication Hypothyroidism Continue levothyroxine DVT Px: Lovenox SQ Code Status Conditional:DNI only as per my discussion with patient. History of Present Illness Chief Complaint: Shortness of Breath Primary Care Provider: Babak Melendez MD Patient is a 69-year-old female with history of COPD, chronic respiratory failure with oxygen dependency--4 L at baseline, paroxysmal atrial fibrillation, morbid obesity, CKD 3, hypertensive heart disease, chronic diastolic heart failure, GERD, hypertension, dyslipidemia, iron deficiency anemia, spinal stenosis, anxiety and depression, hypothyroidism and other medical problems presents with history of worsening cough and shortness of breath since last few days. Patient states cough is productive with whitish to yellowish sputum, worsening dyspnea even with minimal activity. She believes that she is requiring more oxygen than her usual 4 L. She felt slightly improved with 5 L but her home health nurse reported that she does not require so. She denies any recent sick contact, travel, COVID exposure. She states taking her medications regularly. Also reports having diarrhea since last few days and some abdominal discomfort. Reports using antibiotics for bronchitis 2 weeks ago. CXR showed no findings suggestive of pneumonia. Denies any history of chest pain, palpitations, dizziness, diaphoresis, hemoptysis, fever, headache, change in vision, nausea, vomiting, blood in stools, dysuria, hematuria, recent change in medications. Allergies Allergy/AdvReac Type Severity Reaction Status Date / Time adhesive Allergy Severe RED RASH Verified 12/02/19 15:26 latex AdvReac Mild TAPE-SORE Verified 12/02/19 15:26 morphine AdvReac Mild DELUSIONS Verified 12/02/19 15:26 Home Medications Home Medications Medication Instructions Recorded Confirmed Type Breo Ellipta 1 inh INHALATION DAILY 03/12/18 12/02/19 History Daliresp 500 mcg PO DAILY 03/12/18 12/02/19 History allopurinol 300 mg PO QAM 03/12/18 12/02/19 History atorvastatin 20 mg PO QPM 03/12/18 12/02/19 History cholecalciferol (vitamin D3) 2,000 unit PO QAM 03/12/18 12/02/19 History [Vitamin D3] gabapentin 300 mg PO HS 03/12/18 12/02/19 History levothyroxine 88 mcg PO DAILYBB 03/12/18 12/02/19 History metoprolol succinate 50 mg PO QAM 03/12/18 12/02/19 History multivitamin 1 tab PO QAM 03/12/18 12/02/19 History propafenone 150 mg PO Q8H 03/12/18 12/02/19 History ranitidine HCl 150 mg PO BID 03/12/18 12/02/19 History sertraline [Zoloft] 25 mg PO QAM 03/12/18 12/02/19 History albuterol sulfate 2.5 mg INHALATION Q6 PRN 08/07/18 12/02/19 History Spiriva with HandiHaler 1 cap INH DAILY #30 puffs 08/03/19 12/02/19 Rx tramadol 50 mg PO Q4H PRN #20 tab 08/19/19 12/02/19 Rx diclofenac sodium [Voltaren] 4 g EXT QID 09/27/19 12/02/19 History potassium chloride [Klor-Con M20] 20 meq PO Q OTHER DAY 09/27/19 12/02/19 History amlodipine [Norvasc] 10 mg PO QAM #30 tab 10/03/19 12/02/19 Rx bumetanide 1 mg PO BID 12/02/19 12/02/19 History metolazone 2.5 mg PO MOFR 12/02/19 12/02/19 History 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) Hx of cholecystectomy (Chronic) S/P cervical spinal fusion (Chronic) S/P wrist surgery (Chronic) Family History Father Trauma Mother Diabetes Cerebral aneurysm Daughter Bipolar 1 disorder Social History Preferred Language: Sami Communication Ability: Effective 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 Beliefs That Will Affect Care: None marital status: Current Living Situation: Family Current Living Situation Comment: dtr Feels Safe at Home: Yes Smoking Status: Never smoker Tobacco Type: cigarettes ; Cigarettes Per Day: 2 packs ; Second Hand Exposure: No ; Hx Alcohol Use: No Hx Substance Use: No Review of Systems Review of Systems: All systems reviewed & are unremarkable except as noted in HPI & below Physical Exam Physical Exam: Physical Exam: Vitals signs as noted above General Appearance:Morbidly Obese, no apparent distress Head: normocephalic, Atraumatic Eyes: normal inspection, EOMI Neck: supple, Trachea midline Respiratory/Chest: Coarse decreased breath sounds, B/L wheezes, Scattered crackles, No accessory muscle use Cardiovascular: S1, S2, No murmur Abdomen/GI:Soft, Non tender, Bowel sounds present Extremities/Musculoskelatal:normal inspection, Trace edema Neurologic/Psych:AAOX3, grossly no focal neurological deficits Skin: normal color, warm Results & Data Results & Data ([facility]) Vital Signs (Past 12 Hours) Vital Signs Temp Pulse Pulse Resp BP BP Pulse Ox 12/02/19 16:30 68 23 168/77 H 100 12/02/19 16:27 72 24 154/73 H 100 12/02/19 16:26 68 24 154/73 H 100 12/02/19 16:00 68 18 100 12/02/19 15:30 67 20 100 12/02/19 15:14 76 20 99 12/02/19 15:00 64 14 100 12/02/19 14:33 99 12/02/19 14:30 24 186/69 H 99 12/02/19 14:25 60 16 97 12/02/19 14:22 36.9 C 64 18 152/72 H 98 Laboratory Results Short CBC 12/02/19 Range/Units 14:55 WBC 12.19 H (4.8-10.8) K/uL Hgb 9.4 L (12.0-16.0) g/dL Hct 30.1 L (37-47) % Plt Count 200 (130-400) K/uL BMP 12/02/19 14:55 Sodium 139 Potassium 3.5 Chloride 94 L Carbon Dioxide 37 H BUN 24 H Creatinine 1.00 Glucose 105 H Calcium 10.5 H Cardiac Enzymes 12/02/19 Range/Units 14:55 Troponin I < 0.015 (0-0.045) ng/ml Liver Function 12/02/19 Range/Units 14:55 Total Bilirubin 0.5 (0.2-1) mg/dl AST 12 L (15-37) U/L ALT 14 (12-78) U/L Alkaline Phosphatase 87 (45-117) U/L Albumin 3.0 L (3.4-5.0) gm/dl Diagnostic Findings CXR: 1. No change compared to the prior study. 2. Chronic interstitial thickening and the left basilar densities persist. Therefore, this favors atelectasis/scarring. No new focal lung consolidations to suggest pneumonia. 3. Stable bilateral hilar prominence. ECG Additional Comments: EKG:pending
[2019-12-02] MEDS ORDERED: POTASSIUM CHLORIDE 10 MEQ TABCR PO ONE (19:00)
[2019-12-02] MEDS ORDERED: POLYETHYLENE (MIRALAX) 17 GM PACK PO PRN (20:44)
[2019-12-02] MEDS ORDERED: ACETAMINOPHEN 325 MG TAB PO PRN (20:44)
[2019-12-02] MEDS: ALBUT/IPRATROP 3MG/0.5MG NEB 3 ML VIAL NEB SCH ×2 (22:13)
[2019-12-02] MEDS: ENOXAPARIN INJ 40 MG/0.4 ML SYR SQ SCH (22:16)
[2019-12-02] MEDS: PROPAFENONE HCL 150 MG TABLET PO SCH (22:17)
[2019-12-02] MEDS: methylPREDNISolone 40 MG in SYRINGE 0 ML IV SCH (22:17)
[2019-12-02] MEDS: GABAPENTIN 300 MG CAP PO SCH (22:18)
[2019-12-02] MEDS: FAMOTIDINE 20 MG TAB PO SCH (22:18)
[2019-12-02] MEDS: ATORVASTATIN 20 MG TAB PO SCH (22:18)
[2019-12-02] MEDS: BUMETANIDE 1 MG TAB PO SCH (22:18)
[2019-12-02] MEDS: DICLOFENAC SOD 1% GEL 100 GM TUBE EXT SCH (22:19)
[2019-12-02] MEDS: DOXYCYCLINE HYCLATE 100 MG CAP PO SCH (22:40)
[2019-12-02] MEDS ORDERED: PROMETHAZINE HCL 12.5 MG in SODIUM CHLORIDE 0.9% 50 ML IV PRN (23:34)
[2019-12-02] MEDS: ONDANSETRON INJ 2 MG/ML 2 ML VIAL IV PRN (23:38)
[2019-12-02] MEDS: TRAMADOL HCL 50 MG TABLET PO PRN (23:39)
[2019-12-02] MEDS ORDERED: OLANZapine 10 MG/2.1 ML SDV IM PRN (23:39)
[2019-12-03] MEDS: LIDOCAINE 5% 1 PATCH TD SCH (01:29)
[2019-12-03] MEDS: ALBUT/IPRATROP 3MG/0.5MG NEB 3 ML VIAL NEB SCH ×6 (03:17→22:50)
[2019-12-03 06:13] LABS: Hematocrit (blood only) 31.8 % (37-47); Hemoglobin 9.8 g/dL (12.0-16.0); Mean Corpuscular Hgb Conc 30.8 g/dL (32-36); Mean Corpuscular Volume 94.1 fL (80-100); Mean Platelet Volume 9.6 fL (7.4-10.4); Platelet Count 207 K/uL (130-400); RDW Coefficient of Variation 14.9 % (11.5-14.5); RDW Standard Deviation 50.6 fL (36.4-46.3); Red Blood Count 3.38 M/uL (4.2-5.4); White Blood Count 7.74 K/uL (4.8-10.8)
[2019-12-03 06:36] LABS: BUN Creatinine Ratio 26.1 (10-20); Calcium 10.2 mg/dl (8.5-10.1); Creatinine Clr Calc Pharmacy 53.8 ml/min; Est GFR (African American) 57.2; Est GFR (Non-African American) 49.4; Magnesium 1.9 mg/dl (1.8-2.4); Potassium 4.1 mmol/L (3.5-5.1)
[2019-12-03] MEDS: methylPREDNISolone 40 MG in SYRINGE 0 ML IV SCH ×3 (06:45→22:13)
[2019-12-03] MEDS: LEVOTHYROXINE SODIUM 88 MCG TABLET PO SCH (06:46)
[2019-12-03] MEDS: PROPAFENONE HCL 150 MG TABLET PO SCH ×3 (06:50→22:13)
[2019-12-03] MEDS: TRAMADOL HCL 50 MG TABLET PO PRN (07:28)
[2019-12-03] MEDS: FLUTICASONE/VILANTEROL 200/25MCG 14 PUFFS/INHALER INH SCH (07:29)
[2019-12-03] MEDS: ROFLUMILAST 500 MCG TAB PO SCH (07:30)
[2019-12-03] MEDS: BUMETANIDE 1 MG TAB PO SCH ×2 (07:30→16:58)
[2019-12-03] MEDS: POTASSIUM CHLORIDE 20 MEQ TABCR PO SCH (07:30)
[2019-12-03] MEDS: AMLODIPINE BESYLATE 5 MG TAB PO SCH (07:31)
[2019-12-03] MEDS: METOPROLOL SUCC 50MG EXT REL TAB PO SCH (07:31)
[2019-12-03] MEDS: DOXYCYCLINE HYCLATE 100 MG CAP PO SCH ×2 (07:31→20:18)
[2019-12-03] MEDS: FAMOTIDINE 20 MG TAB PO SCH ×2 (07:31→20:18)
[2019-12-03] MEDS: SERTRALINE HCL 50 MG TABLET PO SCH (07:32)
[2019-12-03] MEDS: DICLOFENAC SOD 1% GEL 100 GM TUBE EXT SCH ×4 (07:32→20:18)
[2019-12-03] MEDS: allopurinoL 300 MG TAB PO SCH (07:33)
--- NOTE | 2019-12-03 09:47 | Electrocardiogram Report ---
Test Reason : Blood Pressure : / mmHG Vent. Rate : 065 BPM Atrial Rate : 065 BPM P-R Int : 168 ms QRS Dur : 104 ms QT Int : 464 ms P-R-T Axes : -03 042 049 degrees QTc Int : 482 ms Normal sinus rhythm Incomplete right bundle branch block Borderline ECG When compared with ECG of 16-OCT-2019 09:42, No significant change was found Confirmed by eJan Ross ([id number]) on 12/03/2019 9:47:23 AM Referred By: REFERRED SELF Confirmed By:Jean Ross
[2019-12-03] MEDS: cefTRIAXone SODIUM 2,000 MG in DEXTROSE 5% 50 ML IV SCH (16:58)
--- NOTE | 2019-12-03 17:24 | Hospitalist Progress Note ---
Date of Service December 03, 2019 Assessment & Plan (1) COPD exacerbation: Acute COPD Exacerbation Acute on chronic respiratory failure with hypercapnia Chronic Oxygen dependency: 4 liters at baseline CXR:No change compared to the prior study. Chronic interstitial thickening and the left basilar densities persist. Therefore, this favors atelectasis/scarring. No new focal lung consolidations to suggest pneumonia. Stable bilateral hilar prominence. Negative COVID screen Troponin negative Continue Rocephin, Doxycycline Continue IV solu-medrol, bronchodilators Blood culture: pending Oxygen support per protocol Continue Aspiration precautions Diarrhea Check Stool Studies if recurrence Diarrhea/abd pain is improving Hypomagnesemia Replace electrolytes as needed Chronic Leukocytosis Likely due to steroids Paroxysmal atrial fibrillation Not on anticoagulation due to his GI bleed Continue propafenone HTN: BP elevated in ED likely situational Continue on amlodipine, metoprolol Monitor Morbid obesity BMI:39 CKD III Baseline Cr ~12-1.5 Cr at baseline Monitor renal function Avoid nephrotoxic agents as able Chronic diastolic heart failure No signs of decompensation Continue home diuretics Monitor volume status GERD Continue PPI Dyslipidemia Continue statin Chronic Anemia Iron deficiency anemia Hb near baseline Monitor CBC Anxiety and depression Continue home medication Hypothyroidism Continue levothyroxine DVT Px: Lovenox SQ Code Status Conditional:DNI only as per my discussion with patient. Code Status PT/OT prior to discharge Admission and Anticipated Discharge Date Admission Date: December 02, 2019 Subjective Patient is seen and examined at bedside Cough about the same as yesterday less Shortness of breath, wheezing No significant diarrhea today Abdominal pain slowly improving Offers no other complaints Review of Systems Review of Systems: All systems reviewed & are unremarkable except as noted in HPI & below Physical Exam Physical Exam: Physical Exam: Vitals signs as noted above General Appearance:Morbidly Obese, no apparent distress Head: normocephalic, Atraumatic Eyes: normal inspection, EOMI Neck: supple, Trachea midline Respiratory/Chest: Coarse decreased breath sounds, B/L wheezes, Scattered crackles, No accessory muscle use Cardiovascular: S1, S2, No murmur Abdomen/GI:Soft, Non tender, Bowel sounds present Extremities/Musculoskelatal:normal inspection, Trace edema Neurologic/Psych:AAOX3, grossly no focal neurological deficits Skin: normal color, warm Results & Data Results & Data ([facility]) Vital Signs (Past 12 Hours) Vital Signs Temp Pulse Pulse Resp BP Pulse Ox 12/03/19 16:02 76 12/03/19 15:24 36.8 C 74 20 152/81 H 99 12/03/19 15:03 68 18 98 12/03/19 11:11 69 20 98 12/03/19 10:05 72 12/03/19 07:45 73 18 98 12/03/19 07:18 36.9 C 75 20 163/84 H 96 Laboratory Results Short CBC 12/03/19 Range/Units 05:42 WBC 7.74 (4.8-10.8) K/uL Hgb 9.8 L (12.0-16.0) g/dL Hct 31.8 L (37-47) % Plt Count 207 (130-400) K/uL BMP 12/03/19 05:42 Sodium 138 Potassium 4.1 D Chloride 95 L Carbon Dioxide 35 H BUN 29 H Creatinine 1.12 Glucose 136 H Calcium 10.2 H
[2019-12-03] MEDS: ENOXAPARIN INJ 40 MG/0.4 ML SYR SQ SCH (20:17)
[2019-12-03] MEDS: GABAPENTIN 300 MG CAP PO SCH (20:18)
[2019-12-03] MEDS: ATORVASTATIN 20 MG TAB PO SCH (20:18)
[2019-12-04] MEDS: PROPAFENONE HCL 150 MG TABLET PO SCH ×3 (05:57→21:16)
[2019-12-04] MEDS: LEVOTHYROXINE SODIUM 88 MCG TABLET PO SCH (05:57)
[2019-12-04] MEDS: methylPREDNISolone 40 MG in SYRINGE 0 ML IV SCH ×2 (06:00→21:16)
[2019-12-04] MEDS: ALBUT/IPRATROP 3MG/0.5MG NEB 3 ML VIAL NEB SCH ×5 (07:19→19:22)
[2019-12-04 08:09] LABS: Hematocrit (blood only) 31.3 % (37-47); Hemoglobin 9.8 g/dL (12.0-16.0); Mean Corpuscular Hemoglobin 29.3 pg (25-34); Mean Corpuscular Hgb Conc 31.3 g/dL (32-36); Mean Corpuscular Volume 93.4 fL (80-100); Mean Platelet Volume 9.9 fL (7.4-10.4); Platelet Count 214 K/uL (130-400); RDW Coefficient of Variation 14.9 % (11.5-14.5); RDW Standard Deviation 51.1 fL (36.4-46.3); Red Blood Count 3.35 M/uL (4.2-5.4); White Blood Count 14.32 K/uL (4.8-10.8)
[2019-12-04 08:35] LABS: BUN Creatinine Ratio 31.8 (10-20); Calcium 9.8 mg/dl (8.5-10.1); Creatinine Clr Calc Pharmacy 39.4 ml/min; Est GFR (African American) 39.6; Est GFR (Non-African American) 34.1; Magnesium 2.1 mg/dl (1.8-2.4); Potassium 4.2 mmol/L (3.5-5.1)
[2019-12-04] MEDS ORDERED: metOLazone 2.5 MG TABLET PO SCH (09:00)
[2019-12-04] MEDS: FLUTICASONE/VILANTEROL 200/25MCG 14 PUFFS/INHALER INH SCH (09:06)
[2019-12-04] MEDS: METOPROLOL SUCC 50MG EXT REL TAB PO SCH (09:07)
[2019-12-04] MEDS: AMLODIPINE BESYLATE 5 MG TAB PO SCH (09:07)
[2019-12-04] MEDS: allopurinoL 300 MG TAB PO SCH (09:07)
[2019-12-04] MEDS: BUMETANIDE 1 MG TAB PO SCH ×2 (09:07→16:18)
[2019-12-04] MEDS: SERTRALINE HCL 50 MG TABLET PO SCH (09:08)
[2019-12-04] MEDS: LIDOCAINE 5% 1 PATCH TD SCH (09:09)
[2019-12-04] MEDS: ROFLUMILAST 500 MCG TAB PO SCH (09:09)
[2019-12-04] MEDS: FAMOTIDINE 20 MG TAB PO SCH ×2 (09:09→21:16)
[2019-12-04] MEDS: DOXYCYCLINE HYCLATE 100 MG CAP PO SCH ×2 (09:09→21:15)
[2019-12-04] MEDS: DICLOFENAC SOD 1% GEL 100 GM TUBE EXT SCH ×4 (09:10→21:17)
[2019-12-04] MEDS: cefTRIAXone SODIUM 2,000 MG in DEXTROSE 5% 50 ML IV SCH (16:18)
--- NOTE | 2019-12-04 17:28 | Hospitalist Progress Note ---
Date of Service December 04, 2019 Assessment & Plan (1) COPD exacerbation: Acute COPD Exacerbation Acute on chronic respiratory failure with hypercapnia Chronic Oxygen dependency: 4 liters at baseline CXR:No change compared to the prior study. Chronic interstitial thickening and the left basilar densities persist. Therefore, this favors atelectasis/scarring. No new focal lung consolidations to suggest pneumonia. Stable bilateral hilar prominence. Negative COVID screen Troponin negative Continue Rocephin, Doxycycline Continue IV solu-medrol, bronchodilators Blood culture: No growth to date Oxygen support per protocol Continue Aspiration precautions Decrease IV Solu-Medrol to every 12H today Continue current management Diarrhea Check Stool Studies if recurrence Diarrhea/abd pain is improved Hypomagnesemia Replace electrolytes as needed Chronic Leukocytosis Likely due to steroids Paroxysmal atrial fibrillation Not on anticoagulation due to his GI bleed Continue propafenone HTN: BP elevated in ED likely situational Continue on amlodipine, metoprolol Monitor BP stable Morbid obesity BMI:39 CKD III Baseline Cr ~12-1.5 Cr at baseline Monitor renal function Avoid nephrotoxic agents as able Chronic diastolic heart failure No signs of decompensation Continue home diuretics Monitor volume status GERD Continue PPI Dyslipidemia Continue statin Chronic Anemia Iron deficiency anemia Hb near baseline Monitor CBC Anxiety and depression Continue home medication Hypothyroidism Continue levothyroxine DVT Px: Lovenox SQ Code Status Conditional:DNI only as per my discussion with patient. Code Status PT/OT prior to discharge Admission and Anticipated Discharge Date Admission Date: December 02, 2019 Subjective Patient is seen and examined at bedside No new complaints Less cough, wheezing today Saturating well on baseline supplemental oxygen Denies any significant dyspnea Offers no other complaints Review of Systems Review of Systems: All systems reviewed & are unremarkable except as noted in HPI & below Physical Exam Physical Exam: Physical Exam: Vitals signs as noted above General Appearance:Morbidly Obese, no apparent distress Head: normocephalic, Atraumatic Eyes: normal inspection, EOMI Neck: supple, Trachea midline Respiratory/Chest: Coarse decreased breath sounds, B/L wheezes, Scattered crackles, No accessory muscle use Cardiovascular: S1, S2, No murmur Abdomen/GI:Soft, Non tender, Bowel sounds present Extremities/Musculoskelatal:normal inspection, Trace edema Neurologic/Psych:AAOX3, grossly no focal neurological deficits Skin: normal color, warm Results & Data Results & Data ([facility]) Vital Signs (Past 12 Hours) Vital Signs Temp Pulse Pulse Resp BP BP Pulse Ox 12/04/19 17:14 70 12/04/19 15:17 36.8 C 71 18 155/71 H 90 12/04/19 11:46 36.5 C 18 159/80 H 99 12/04/19 07:36 37.1 C 70 20 158/77 H 98 12/04/19 07:20 69 14 98 12/04/19 07:19 61 Laboratory Results Short CBC 12/04/19 Range/Units 07:15 WBC 14.32 H (4.8-10.8) K/uL Hgb 9.8 L (12.0-16.0) g/dL Hct 31.3 L (37-47) % Plt Count 214 (130-400) K/uL BMP 12/04/19 07:15 Sodium 138 Potassium 4.2 Chloride 97 L Carbon Dioxide 36 H BUN 48 H D Creatinine 1.52 H D Glucose 134 H Calcium 9.8
[2019-12-04 21:01] LABS: Appearance Urine Clear (Clear); Bilirubin Urine Negative (Negative); Blood Urine Negative (Negative); Color Urine Yellow; Glucose Urine UA Negative (Negative); Ketones Urine Negative (Negative); Leukocyte Esterase Urine Negative (Negative); Nitrite Urine Negative (Negative); Protein Urine Negative (Negative); Specific Gravity Urine 1.011 (1.000-1.030); Urobilinogen Urine Negative (Negative); pH Urine 5.5 (4.5-7.5)
[2019-12-04] MEDS: TRAMADOL HCL 50 MG TABLET PO PRN (21:15)
[2019-12-04] MEDS: ENOXAPARIN INJ 40 MG/0.4 ML SYR SQ SCH (21:15)
[2019-12-04] MEDS: GABAPENTIN 300 MG CAP PO SCH (21:16)
[2019-12-04] MEDS: ATORVASTATIN 20 MG TAB PO SCH (21:16)
[2019-12-05] MEDS: ALBUT/IPRATROP 3MG/0.5MG NEB 3 ML VIAL NEB SCH ×4 (00:31→18:43)
[2019-12-05] MEDS: AMLODIPINE BESYLATE 5 MG TAB PO SCH (04:17)
[2019-12-05] MEDS: LEVOTHYROXINE SODIUM 88 MCG TABLET PO SCH (05:53)
[2019-12-05] MEDS: PROPAFENONE HCL 150 MG TABLET PO SCH ×3 (05:53→20:13)
[2019-12-05 07:41] LABS: BUN Creatinine Ratio 34.6 (10-20); Calcium 9.9 mg/dl (8.5-10.1); Creatinine Clr Calc Pharmacy 32.8 ml/min; Est GFR (African American) 31.8; Est GFR (Non-African American) 27.5
[2019-12-05] MEDS: FLUTICASONE/VILANTEROL 200/25MCG 14 PUFFS/INHALER INH SCH (08:20)
[2019-12-05] MEDS: methylPREDNISolone 40 MG in SYRINGE 0 ML IV SCH (08:20)
[2019-12-05] MEDS: DICLOFENAC SOD 1% GEL 100 GM TUBE EXT SCH ×4 (08:21→20:11)
[2019-12-05] MEDS: POTASSIUM CHLORIDE 20 MEQ TABCR PO SCH (08:21)
[2019-12-05] MEDS: DOXYCYCLINE HYCLATE 100 MG CAP PO SCH ×2 (08:21→20:13)
[2019-12-05] MEDS: METOPROLOL SUCC 50MG EXT REL TAB PO SCH (08:21)
[2019-12-05] MEDS: SERTRALINE HCL 50 MG TABLET PO SCH (08:21)
[2019-12-05] MEDS: BUMETANIDE 1 MG TAB PO SCH (08:21)
[2019-12-05] MEDS: ROFLUMILAST 500 MCG TAB PO SCH (08:21)
[2019-12-05] MEDS: FAMOTIDINE 20 MG TAB PO SCH ×2 (08:21→20:13)
[2019-12-05] MEDS: allopurinoL 300 MG TAB PO SCH (08:21)
[2019-12-05] MEDS: LIDOCAINE 5% 1 PATCH TD SCH (08:22)
--- NOTE | 2019-12-05 15:54 | Hospitalist Progress Note ---
Date of Service December 05, 2019 Assessment & Plan (1) COPD exacerbation: Acute COPD Exacerbation Acute on chronic respiratory failure with hypercapnia Chronic Oxygen dependency: 4 liters at baseline Presented with Tachypnea, PH: >7.45, pCO2=50mm Hg, inability to speak in full sentences. --CXR:No change compared to the prior study. Chronic interstitial thickening and the left basilar densities persist. Therefore, this favors atelectasis/scarring. No new focal lung consolidations to suggest pneumonia. Stable bilateral hilar prominence. Negative COVID screen Troponin negative Continue Rocephin, Doxycycline Continue bronchodilators Blood culture: No growth to date Oxygen support per protocol Continue Aspiration precautions Decrease IV Solu-Medrol to 40mg daily Slowly Improving Diarrhea Check Stool Studies if recurrence Diarrhea/abd pain resolved Hypomagnesemia Replace electrolytes as needed Chronic Leukocytosis Likely due to steroids Paroxysmal atrial fibrillation Not on anticoagulation due to his GI bleed Continue propafenone HTN: BP elevated in ED likely situational Continue on amlodipine, metoprolol Monitor BP stable Morbid obesity BMI:39 Acute Kidney Injury on CKD III Baseline Cr ~12-1.5 Cr 1.8 today Monitor renal function Avoid nephrotoxic agents as able Hold diuretics today Chronic diastolic heart failure No signs of decompensation Monitor volume status Bumex held today due to [place] Resume diuretics as able GERD Continue PPI Dyslipidemia Continue statin Chronic Anemia Iron deficiency anemia Hb near baseline Monitor CBC Anxiety and depression Continue home medication Hypothyroidism Continue levothyroxine DVT Px: Heparin SQ Code Status Conditional:DNI only as per my discussion with patient. Code Status PT/OT prior to discharge Admission and Anticipated Discharge Date Admission Date: December 02, 2019 Subjective Patient is seen and examined at bedside Cough, dyspnea slowly improving Abdominal pain, diarrhea resolved She feels she is not ready for discharge. Renal function worsened today No new complaints Offers no other complaints Review of Systems Review of Systems: All systems reviewed & are unremarkable except as noted in HPI & below Physical Exam Physical Exam: Physical Exam: Vitals signs as noted above General Appearance:Morbidly Obese, no apparent distress Head: normocephalic, Atraumatic Eyes: normal inspection, EOMI Neck: supple, Trachea midline Respiratory/Chest: Coarse decreased breath sounds, No accessory muscle use Cardiovascular: S1, S2, No murmur Abdomen/GI:Soft, Non tender, Bowel sounds present Extremities/Musculoskelatal:normal inspection, Trace edema Neurologic/Psych:AAOX3, grossly no focal neurological deficits Skin: normal color, warm Results & Data Results & Data ([facility]) Vital Signs (Past 12 Hours) Vital Signs Temp Pulse Pulse Resp BP BP Pulse Ox 12/05/19 15:28 36.9 C 68 18 152/76 H 99 12/05/19 13:30 69 18 98 12/05/19 11:02 36.9 C 67 18 124/71 96 12/05/19 07:40 36.9 C 64 20 156/67 H 99 12/05/19 07:22 65 Laboratory Results BMP 12/05/19 07:04 Sodium 136 Potassium 4.0 Chloride 95 L Carbon Dioxide 39 H BUN 63 H Creatinine 1.82 H D Glucose 131 H Calcium 9.9 Urine 12/04/19 Range/Units 20:55 Urine Color Yellow Urine Appearance Clear (Clear) Urine pH 5.5 (4.5-7.5) Ur Specific [place] 1.011 (1.000-1.030) Urine Protein Negative (Negative) Urine Glucose (UA) Negative (Negative)
[2019-12-05] MEDS: cefTRIAXone SODIUM 2,000 MG in DEXTROSE 5% 50 ML IV SCH (16:33)
--- NOTE | 2019-12-05 18:32 | XRay Report ---
KUB HISTORY: Generalized Abdominal pain COMPARISON: None. FINDINGS: The bowel gas pattern is unremarkable. There are no dilated loops of small bowel to suggest an obstruction. No renal calculi. No ureteral calculi. Calcifications in the deep pelvis likely rep resent phleboliths. Moderate well-formed stool seen within the colon. No pneumoperitoneum or pneumato sis. There is a right total hip arthroplasty. IMPRESSION: No evidence for bowel obstruction. Moderate well-formed stool within the colon. ACT 112: Negative or not required by law. Electronically signed by: Henry Bourne M.D. 12/05/2019 6:31 PM
[2019-12-05] MEDS ORDERED: DOCUSATE SODIUM 100 MG CAP PO ONE (18:38)
[2019-12-05] MEDS ORDERED: DOCUSATE SODIUM 100 MG CAP PO PRN (18:38)
[2019-12-05] MEDS: TRAMADOL HCL 50 MG TABLET PO PRN (18:44)
[2019-12-05] MEDS: HEPARIN SOD 5,000 UNIT/0.5 ML VIAL SQ SCH (20:10)
[2019-12-05] MEDS: ATORVASTATIN 20 MG TAB PO SCH (20:14)
[2019-12-05] MEDS: GABAPENTIN 300 MG CAP PO SCH (20:14)
[2019-12-05] MEDS: ONDANSETRON INJ 2 MG/ML 2 ML VIAL IV PRN (21:23)
[2019-12-06] MEDS: ALBUT/IPRATROP 3MG/0.5MG NEB 3 ML VIAL NEB SCH ×4 (01:39→19:12)
[2019-12-06] MEDS: LEVOTHYROXINE SODIUM 88 MCG TABLET PO SCH (06:37)
[2019-12-06] MEDS: PROPAFENONE HCL 150 MG TABLET PO SCH ×3 (06:37→21:05)
[2019-12-06] MEDS: HEPARIN SOD 5,000 UNIT/0.5 ML VIAL SQ SCH ×3 (06:38→21:05)
[2019-12-06 06:59] LABS: Hematocrit (blood only) 32.7 % (37-47); Hemoglobin 10.1 g/dL (12.0-16.0); Mean Corpuscular Hemoglobin 29.2 pg (25-34); Mean Corpuscular Hgb Conc 30.9 g/dL (32-36); Mean Corpuscular Volume 94.5 fL (80-100); Mean Platelet Volume 9.3 fL (7.4-10.4); Platelet Count 232 K/uL (130-400); RDW Coefficient of Variation 14.8 % (11.5-14.5); RDW Standard Deviation 50.6 fL (36.4-46.3); Red Blood Count 3.46 M/uL (4.2-5.4); White Blood Count 13.71 K/uL (4.8-10.8)
[2019-12-06 07:29] LABS: BUN Creatinine Ratio 35.7 (10-20); Calcium 9.4 mg/dl (8.5-10.1); Creatinine Clr Calc Pharmacy 37.6 ml/min; Est GFR (African American) 37.5; Est GFR (Non-African American) 32.3; Potassium 3.7 mmol/L (3.5-5.1)
[2019-12-06] MEDS: FLUTICASONE/VILANTEROL 200/25MCG 14 PUFFS/INHALER INH SCH (07:51)
[2019-12-06] MEDS: AMLODIPINE BESYLATE 5 MG TAB PO SCH (07:51)
[2019-12-06] MEDS: allopurinoL 300 MG TAB PO SCH (07:51)
[2019-12-06] MEDS: SERTRALINE HCL 50 MG TABLET PO SCH (07:52)
[2019-12-06] MEDS: DOXYCYCLINE HYCLATE 100 MG CAP PO SCH ×2 (07:52→21:06)
[2019-12-06] MEDS: FAMOTIDINE 20 MG TAB PO SCH ×2 (07:53→21:06)
[2019-12-06] MEDS: ROFLUMILAST 500 MCG TAB PO SCH (07:53)
[2019-12-06] MEDS: LIDOCAINE 5% 1 PATCH TD SCH (07:53)
[2019-12-06] MEDS: METOPROLOL SUCC 50MG EXT REL TAB PO SCH (07:54)
[2019-12-06] MEDS: DICLOFENAC SOD 1% GEL 100 GM TUBE EXT SCH ×4 (07:55→21:07)
[2019-12-06] MEDS: methylPREDNISolone 40 MG in SYRINGE 0 ML IV SCH (09:12)
[2019-12-06] MEDS: TRAMADOL HCL 50 MG TABLET PO PRN ×2 (15:30→21:03)
--- NOTE | 2019-12-06 16:36 | Hospitalist Progress Note ---
Date of Service December 06, 2019 Assessment & Plan (1) COPD exacerbation: Acute COPD Exacerbation Acute on chronic respiratory failure with hypercapnia Chronic Oxygen dependency: 4 liters at baseline Presented with Tachypnea, PH: >7.45, pCO2=50mm Hg, inability to speak in full sentences. --CXR:No change compared to the prior study. Chronic interstitial thickening and the left basilar densities persist. Therefore, this favors atelectasis/scarring. No new focal lung consolidations to suggest pneumonia. Stable bilateral hilar prominence. Negative COVID screen Continue Rocephin, Doxycycline Continue bronchodilators Blood culture: No growth to date Oxygen support per protocol Continue Aspiration precautions Decrease IV Solu-Medrol to 40mg daily Slowly Improving and remains stable Will need a day and 2 before discharging Diarrhea Check Stool Studies if recurrence Diarrhea/abd pain resolved Denies any more diarrhea Hypomagnesemia Replace electrolytes as needed Will check magnesium level tomorrow Chronic Leukocytosis Likely due to steroids Paroxysmal atrial fibrillation Not on anticoagulation due to his GI bleed Continue propafenone HTN: BP elevated in ED likely situational Continue on amlodipine, metoprolol Monitor BP stable Morbid obesity BMI:39 Acute Kidney Injury on CKD III Baseline Cr ~12-1.5 Cr 1.8 today Monitor renal function Avoid nephrotoxic agents as able Chronic diastolic heart failure No signs of decompensation Monitor volume status Bumex held today due to [place] Creatinine remains elevated at 1.59 and gradually improving We will recheck in the morning and decide on whether to start diuretics or not GERD Continue PPI Dyslipidemia Continue statin Chronic Anemia Iron deficiency anemia Hb near baseline Monitor CBC Anxiety and depression Continue home medication Hypothyroidism Continue levothyroxine DVT Px: Heparin SQ Code Status Conditional:DNI only as per my discussion with patient. Code Status PT/OT prior to discharge Admission and Anticipated Discharge Date Admission Date: December 02, 2019 Subjective The patient was seen and examined in the medical floor She complains of shortness of breath with minimal exertion Has been feeling a little bit better compared with yesterday Review of Systems Review of Systems: All systems reviewed and are unremarkable except as noted below Respiratory: + dyspnea on exertion and + wheezing (Minimal wheezing at rest) Physical Exam Physical Exam: Sitting on a chair without any acute distress Constitutional: + ill appearing; no acute distress Eyes: PERRL, conjunctivae normal, anicteric sclerae ENMT: external ear and nose normal, oropharynx normal Neck: trachea midline, no thyromegaly Respiratory: no respiratory distress and no labored breathing Auscultation: + diminished lung sounds, + crackles (Minimal bibasilar crackles) and + wheezes (Occasional wheezing bilaterally) Cardiovascular: Rate/Rhythm: regular rate and regular rhythm Heart Sounds: no murmur Gastrointestinal (Abdomen): Inspection/Auscultation: abdomen normal to inspection and normal bowel sounds Percussion/Palpation: abdomen soft; abdomen nontender Musculoskeletal: No acute arthritis involving any joints Neurologic: moves all extremities; no focal motor deficits Results & Data Results & Data ([facility]) Vital Signs (Past 12 Hours) Vital Signs Temp Pulse Pulse Resp BP Pulse Ox 12/06/19 13:22 68 14 98 12/06/19 12:18 36.6 C 65 18 130/75 99 12/06/19 09:30 61 12/06/19 07:09 63 16 98 12/06/19 06:41 36.4 C L 61 19 156/67 H 98 12/06/19 06:34 61 151/72 H Laboratory Results Short CBC 12/06/19 Range/Units 05:45 WBC 13.71 H (4.8-10.8) K/uL Hgb 10.1 L (12.0-16.0) g/dL Hct 32.7 L (37-47) % Plt Count 232 (130-400) K/uL BMP 12/06/19 06:23 Sodium 140 Potassium 3.7 Chloride 99 Carbon Dioxide 38 H BUN 57 H Creatinine 1.59 H Glucose 87 Calcium 9.4 Medications Administered Current Inpatient Medications Acetaminophen (Tylenol) 650 mg PO Q4H PRN PRN Reason: Pain or Fever Stop: 01/01/20 20:43 Albuterol (Duoneb) 3 ml NEB Q6R [facility] Stop: 01/03/20 09:14 Last Admin: 12/06/19 13:22 Dose: 3 ml Documented by: Allopurinol (Zyloprim) [facility] Stop: 01/02/20 08:59 Last Admin: 12/06/19 07:51 Dose: 300 mg Documented by: Amlodipine Besylate (Norvasc) 10 mg [facility] Stop: 01/04/20 03:29 Last Admin: 12/06/19 07:51 Dose: 10 mg Documented by: Atorvastatin Calcium (Lipitor) 20 mg PO QPM [facility] Stop: 01/01/20 20:59 Last Admin: 12/05/19 20:14 Dose: 20 mg Documented by: Bumetanide (Bumex) 1 mg PO BID17 [facility] Stop: 01/01/20 20:59 Last Admin: 12/05/19 08:21 Dose: 1 mg Documented by: Diclofenac Sodium (Voltaren 1% Top) 4 gm EXT QID [facility] Stop: 01/01/20 20:59 Last Admin: 12/06/19 14:23 Dose: Not Given Documented by: Docusate Sodium (Colace) 100 mg PO BID PRN PRN Reason: Constipation Stop: 01/04/20 20:59 Doxycycline Hyclate (Vibramycin) 100 mg PO BID [facility]; Protocol Stop: 12/09/19 21:14 Last Admin: 12/06/19 07:52 Dose: 100 mg Documented by: Famotidine (Pepcid) 20 mg PO BID [facility] Stop: 01/01/20 20:59 Last Admin: 12/06/19 07:53 Dose: 20 mg Documented by: Fluticasone/Vilanterol (Breo Ellipta 200/25 Mcg Inh) 1 puffs INH DAILY [facility] Stop: 01/02/20 08:59 Last Admin: 12/06/19 07:51 Dose: 1 puffs Documented by: Gabapentin (Neurontin) 300 mg PO HS [facility] Stop: 01/01/20 20:59 Last Admin: 12/05/19 20:14 Dose: 300 mg Documented by: Heparin Sodium (Porcine) (Heparin Sodium (Porcine)) 5,000 units SQ Q8 [facility] Stop: 01/04/20 21:59 Last Admin: 12/06/19 14:23 Dose: Not Given Documented by: Ceftriaxone Sodium 2,000 mg/ (Dextrose) 70 mls @ 100 mls/hr IV Q24H [facility]; P rotocol Stop: 12/10/19 16:59 Last Infusion: 12/05/19 17:26 Dose: Infused Documented by: Promethazine HCl 12.5 mg/ (Sodium Chloride) 50.5 mls @ 202 mls/hr IV Q6H PRN PRN Reason: Nausea And Vomiting Stop: 01/01/20 23:33 Methylprednisolone 40 mg/ (Syringe) 0.64 mls @ 1.5 mls/min IV DAILY [facility] Stop: 01/05/20 08:59 Last Admin: 12/06/19 09:12 Dose: 1.5 mls/min Documented by: Levothyroxine Sodium (Synthroid) 88 mcg PO DAILYBB [facility] Stop: 01/02/20 06:29 Last Admin: 12/06/19 06:37 Dose: 88 mcg Documented by: Lidocaine (Lidoderm 5%) 1 patch TD QAM [facility] Stop: 01/01/20 23:44 Last Admin: 12/06/19 07:53 Dose: Not Given Documented by: Metolazone (Zaroxolyn) 2.5 mg PO MoFr@0900 [facility] Stop: 01/03/20 08:59 Last Admin: 12/04/19 09:08 Dose: 2.5 mg Documented by: Metoprolol Succinate (Toprol Xl) 50 mg PO QAM [facility] Stop: 01/02/20 08:59 Last Admin: 12/06/19 07:54 Dose: 50 mg Documented by: Miscellaneous (Remove Lidoderm Patch) 1 ea N/A DAILY@2100 [facility] Stop: 01/02/20 11:59 Last Admin: 12/05/19 20:10 Dose: Not Given Documented by: Olanzapine (Zyprexa) 2.5 mg IM Q4H PRN PRN Reason: Anxiety/Agitation Stop: 01/01/20 23:38 Ondansetron HCl (Zofran) 4 mg IV Q6H PRN PRN Reason: Nausea Stop: 01/01/20 20:43 Last Admin: 12/05/19 21:23 Dose: 4 mg Documented by: Polyethylene Glycol (Miralax Powder Packet) 17 gm PO DAILY PRN PRN Reason: Constipation Stop: 01/01/20 20:43 Potassium Chloride (Klor-Con M20) 20 meq PO Q2D [facility] Stop: 01/02/20 08:59 Last Admin: 12/05/19 08:21 Dose: 20 meq Documented by: Propafenone HCl (Rythmol) 150 mg PO Q8 [facility] Stop: 01/01/20 21:59 Last Admin: 12/06/19 14:23 Dose: 150 mg Documented by: Roflumilast (Daliresp) 500 mcg PO DAILY [facility] Stop: 01/02/20 08:59 Last Admin: 12/06/19 07:53 Dose: 500 mcg Documented by: Sertraline HCl (Zoloft) 25 mg PO QAM [facility] Stop: 01/02/20 08:59 Last Admin: 12/06/19 07:52 Dose: 25 mg Documented by: Tramadol HCl (Ultram) 50 mg PO Q4H PRN PRN Reason: pain Stop: 01/01/20 20:43 Last Admin: 12/06/19 15:30 Dose: 50 mg Documented by:
[2019-12-06] MEDS: cefTRIAXone SODIUM 2,000 MG in DEXTROSE 5% 50 ML IV SCH (17:30)
[2019-12-06] MEDS: GABAPENTIN 300 MG CAP PO SCH (21:06)
[2019-12-06] MEDS: ATORVASTATIN 20 MG TAB PO SCH (21:06)
[2019-12-07] MEDS: ALBUT/IPRATROP 3MG/0.5MG NEB 3 ML VIAL NEB SCH ×3 (00:52→13:27)
[2019-12-07] MEDS: HEPARIN SOD 5,000 UNIT/0.5 ML VIAL SQ SCH ×2 (06:06→13:21)
[2019-12-07] MEDS: LEVOTHYROXINE SODIUM 88 MCG TABLET PO SCH (06:06)
[2019-12-07] MEDS: PROPAFENONE HCL 150 MG TABLET PO SCH ×2 (06:06→13:19)
[2019-12-07 08:00] LABS: Eosinophils # (auto) 0.19 K/uL (0-0.5); Eosinophils % (auto) 1.4 %; Hematocrit (blood only) 33.9 % (37-47); Hemoglobin 10.4 g/dL (12.0-16.0); Immature Granulocytes # (auto) 0.04 K/uL (0.00-0.02); Immature Granulocytes % (auto) 0.3 %; Lymphocytes # (auto) 3.14 K/uL (1.2-3.4); Lymphocytes % (auto) 23.2 %; Mean Corpuscular Hemoglobin 28.8 pg (25-34); Mean Corpuscular Hgb Conc 30.7 g/dL (32-36); Mean Corpuscular Volume 93.9 fL (80-100); Mean Platelet Volume 9.2 fL (7.4-10.4); Monocytes # (auto) 1.21 K/uL (0.11-0.59); Monocytes % (auto) 8.9 %; Neutrophils # (auto) 8.95 K/uL (1.4-6.5); Neutrophils % (auto) 66.2 %; Platelet Count 236 K/uL (130-400); RDW Coefficient of Variation 14.7 % (11.5-14.5); RDW Standard Deviation 50.6 fL (36.4-46.3); Red Blood Count 3.61 M/uL (4.2-5.4); White Blood Count 13.53 K/uL (4.8-10.8)
[2019-12-07 08:37] LABS: BUN Creatinine Ratio 35.2 (10-20); Calcium 9.9 mg/dl (8.5-10.1); Creatinine Clr Calc Pharmacy 41.4 ml/min; Est GFR (African American) 41.9; Est GFR (Non-African American) 36.1; Magnesium 2.2 mg/dl (1.8-2.4); Potassium 3.7 mmol/L (3.5-5.1)
[2019-12-07 08:38] LABS: Phosphorus 2.9 mg/dl (2.5-4.9)
[2019-12-07] MEDS: methylPREDNISolone 40 MG in SYRINGE 0 ML IV SCH (08:42)
[2019-12-07] MEDS: SERTRALINE HCL 50 MG TABLET PO SCH (08:42)
[2019-12-07] MEDS: METOPROLOL SUCC 50MG EXT REL TAB PO SCH (08:42)
[2019-12-07] MEDS: DOXYCYCLINE HYCLATE 100 MG CAP PO SCH (08:42)
[2019-12-07] MEDS: ROFLUMILAST 500 MCG TAB PO SCH (08:43)
[2019-12-07] MEDS: FAMOTIDINE 20 MG TAB PO SCH (08:43)
[2019-12-07] MEDS: AMLODIPINE BESYLATE 5 MG TAB PO SCH (08:43)
[2019-12-07] MEDS: allopurinoL 300 MG TAB PO SCH (08:43)
[2019-12-07] MEDS: POTASSIUM CHLORIDE 20 MEQ TABCR PO SCH (08:43)
[2019-12-07] MEDS: FLUTICASONE/VILANTEROL 200/25MCG 14 PUFFS/INHALER INH SCH (08:44)
[2019-12-07] MEDS: DICLOFENAC SOD 1% GEL 100 GM TUBE EXT SCH ×2 (08:44→13:21)
[2019-12-07] MEDS: LIDOCAINE 5% 1 PATCH TD SCH (08:44)
--- NOTE | 2019-12-07 14:34 | Hospitalist Progress Note ---
Date of Service December 07, 2019 Assessment & Plan (1) COPD exacerbation: Acute COPD Exacerbation Acute on chronic respiratory failure with hypercapnia Chronic Oxygen dependency: 4 liters at baseline Presented with Tachypnea, PH: >7.45, pCO2=50mm Hg, inability to speak in full sentences. --CXR:No change compared to the prior study. Chronic interstitial thickening and the left basilar densities persist. Therefore, this favors atelectasis/scarring. No new focal lung consolidations to suggest pneumonia. Stable bilateral hilar prominence. Negative COVID screen Continue Rocephin, Doxycycline Continue bronchodilators Blood culture: No growth to date Oxygen support per protocol Continue Aspiration precautions Decrease IV Solu-Medrol to 40mg daily Slowly Improving and remains stable Clinically a lot better today and denies any acute symptoms at rest She is ready to be discharged Prednisone on a tapering regimen Diarrhea Check Stool Studies if recurrence Diarrhea/abd pain resolved Denies any more diarrhea Stopped Hypomagnesemia Replace electrolytes as needed Will check magnesium level tomorrow-normalized Chronic Leukocytosis Likely due to steroids Paroxysmal atrial fibrillation Not on anticoagulation due to his GI bleed Continue propafenone HTN: BP elevated in ED likely situational Continue on amlodipine, metoprolol Monitor BP stable Morbid obesity BMI:39 Acute Kidney Injury on CKD III Baseline Cr ~12-1.5 Cr 1.8 today Monitor renal function Avoid nephrotoxic agents as able Chronic diastolic heart failure No signs of decompensation Monitor volume status Bumex held today due to [place] Creatinine remains elevated at 1.59 and gradually improving We will recheck in the morning and decide on whether to start diuretics or not GERD Continue PPI Dyslipidemia Continue statin Chronic Anemia Iron deficiency anemia Hb near baseline Monitor CBC Anxiety and depression Continue home medication Hypothyroidism Continue levothyroxine DVT Px: Heparin SQ Code Status Conditional:DNI only as per my discussion with patient. Code Status PT/OT prior to discharge To be discharged home today Admission and Anticipated Discharge Date Admission Date: December 02, 2019 Subjective The patient was seen and examined in the medical floor She complains of shortness of breath with minimal exertion Has been feeling a little bit better compared with yesterday 12/07/2019 The patient was seen and examined in medical floor She has been feeling a lot better and denies any shortness of breath at rest He is ready to be discharged today Review of Systems Review of Systems: All systems reviewed and are unremarkable except as noted below Respiratory: + dyspnea on exertion and + wheezing (Minimal wheezing at rest) Physical Exam Physical Exam: Sitting on a chair without any acute distress Constitutional: + ill appearing; no acute distress Eyes: PERRL, conjunctivae normal, anicteric sclerae ENMT: external ear and nose normal, oropharynx normal Neck: trachea midline, no thyromegaly Respiratory: no respiratory distress and no labored breathing Auscultation: + diminished lung sounds, + crackles (Minimal bibasilar crackles-improved) and + wheezes (Wheezing is almost gone) Cardiovascular: Rate/Rhythm: regular rate and regular rhythm Heart Sounds: no murmur Gastrointestinal (Abdomen): Inspection/Auscultation: abdomen normal to inspection and normal bowel sounds Percussion/Palpation: abdomen soft; abdomen nontender Musculoskeletal: No acute arthritis in any joints Neurologic: moves all extremities; no focal motor deficits Results & Data Results & Data ([facility]) Vital Signs (Past 12 Hours) Vital Signs Temp Pulse Pulse Resp BP BP Pulse Ox 12/07/19 13:39 36.5 C 70 16 146/77 H 97 12/07/19 13:27 70 16 97 12/07/19 11:26 36.5 C 63 18 146/77 H 95 12/07/19 07:40 36.6 C 63 18 147/75 H 98 12/07/19 07:23 58 L 62 16 98 12/07/19 06:05 61 164/75 H 12/07/19 04:25 36.6 C 63 18 160/75 H 100 Laboratory Results Short CBC 12/07/19 Range/Units 07:38 WBC 13.53 H (4.8-10.8) K/uL Hgb 10.4 L (12.0-16.0) g/dL Hct 33.9 L (37-47) % Plt Count 236 (130-400) K/uL BMP 12/07/19 07:38 Sodium 137 Potassium 3.7 Chloride 98 Carbon Dioxide 37 H BUN 51 H Creatinine 1.45 H Glucose 90 Calcium 9.9 Medications Administered Current Inpatient Medications Acetaminophen (Tylenol) 650 mg PO Q4H PRN PRN Reason: Pain or Fever Stop: 01/01/20 20:43 Albuterol (Duoneb) 3 ml NEB Q6R [facility] Stop: 01/03/20 09:14 Last Admin: 12/07/19 13:27 Dose: 3 ml Documented by: Allopurinol (Zyloprim) 300 mg PO QAM [facility] Stop: 01/02/20 08:59 Last Admin: 12/07/19 08:43 Dose: 300 mg Documented by: Amlodipine Besylate (Norvasc) 10 mg PO QAM [facility] Stop: 01/04/20 03:29 Last Admin: 12/07/19 08:43 Dose: 10 mg Documented by: Atorvastatin Calcium (Lipitor) 20 mg PO QPM [facility] Stop: 01/01/20 20:59 Last Admin: 12/06/19 21:06 Dose: 20 mg Documented by: Bumetanide (Bumex) 1 mg PO BID17 [facility] Stop: 01/01/20 20:59 Last Admin: 12/05/19 08:21 Dose: 1 mg Documented by: Diclofenac Sodium (Voltaren 1% Top) 4 gm EXT QID [facility] Stop: 01/01/20 20:59 Last Admin: 12/07/19 13:21 Dose: Not Given Documented by: Docusate Sodium (Colace) 100 mg PO BID PRN PRN Reason: Constipation Stop: 01/04/20 20:59 Doxycycline Hyclate (Vibramycin) 100 mg PO BID [facility]; Protocol Stop: 12/09/19 21:14 Last Admin: 12/07/19 08:42 Dose: 100 mg Documented by: Famotidine (Pepcid) 20 mg PO BID [facility] Stop: 01/01/20 20:59 Last Admin: 12/07/19 08:43 Dose: 20 mg Documented by: Fluticasone/Vilanterol (Breo Ellipta 200/25 Mcg Inh) 1 puffs INH DAILY [facility] Stop: 01/02/20 08:59 Last Admin: 12/07/19 08:44 Dose: 1 puffs Documented by: Gabapentin (Neurontin) 300 mg PO HS [facility] Stop: 01/01/20 20:59 Last Admin: 12/06/19 21:06 Dose: 300 mg Documented by: Heparin Sodium (Porcine) (Heparin Sodium (Porcine)) 5,000 units SQ Q8 [facility] Stop: 01/04/20 21:59 Last Admin: 12/07/19 13:21 Dose: Not Given Documented by: Ceftriaxone Sodium 2,000 mg/ (Dextrose) 70 mls @ 100 mls/hr IV Q24H [facility]; Protocol Stop: 12/10/19 16:59 Last Infusion: 12/06/19 18:15 Dose: Infused Documented by: Promethazine HCl 12.5 mg/ (Sodium Chloride) 50.5 mls @ 202 mls/hr IV Q6H PRN PRN Reason: Nausea And Vomiting Stop: 01/01/20 23:33 Methylprednisolone 40 mg/ (Syringe) 0.64 mls @ 1.5 mls/min IV DAILY [facility] Stop: 01/05/20 08:59 Last Admin: 12/07/19 08:42 Dose: 1.5 mls/min Documented by: Levothyroxine Sodium (Synthroid) 88 mcg PO DAILYBB [facility] Stop: 01/02/20 06:29 Last Admin: 12/07/19 06:06 Dose: 88 mcg Documented by: Lidocaine (Lidoderm 5%) 1 patch TD QAM [facility] Stop: 01/01/20 23:44 Last Admin: 12/07/19 08:44 Dose: Not Given Documented by: Metolazone (Zaroxolyn) 2.5 mg PO MoFr@0900 [facility] Stop: 01/03/20 08:59 Last Admin: 12/04/19 09:08 Dose: 2.5 mg Documented by: Metoprolol Succinate (Toprol Xl) 50 mg PO QAM [facility] Stop: 01/02/20 08:59 Last Admin: 12/07/19 08:42 Dose: 50 mg Documented by: Miscellaneous (Remove Lidoderm Patch) 1 ea N/A DAILY@2100 [facility] Stop: 01/02/20 11:59 Last Admin: 12/06/19 21:04 Dose: Not Given Documented by: Olanzapine (Zyprexa) 2.5 mg IM Q4H PRN PRN Reason: Anxiety/Agitation Stop: 01/01/20 23:38 Ondansetron HCl (Zofran) 4 mg IV Q6H PRN PRN Reason: Nausea Stop: 01/01/20 20:43 Last Admin: 12/05/19 21:23 Dose: 4 mg Documented by: Polyethylene Glycol (Miralax Powder Packet) 17 gm PO DAILY PRN PRN Reason: Constipation Stop: 01/01/20 20:43 Potassium Chloride (Klor-Con M20) 20 meq PO Q2D [facility] Stop: 01/02/20 08:59 Last Admin: 12/07/19 08:43 Dose: 20 meq Documented by: Propafenone HCl (Rythmol) 150 mg PO Q8 [facility] Stop: 01/01/20 21:59 Last Admin: 12/07/19 13:19 Dose: 150 mg Documented by: Roflumilast (Daliresp) 500 mcg PO DAILY [facility] Stop: 01/02/20 08:59 Last Admin: 12/07/19 08:43 Dose: 500 mcg Documented by: Sertraline HCl (Zoloft) 25 mg PO QAM [facility] Stop: 01/02/20 08:59 Last Admin: 12/07/19 08:42 Dose: 25 mg Documented by: Tramadol HCl (Ultram) 50 mg PO Q4H PRN PRN Reason: pain Stop: 01/01/20 20:43 Last Admin: 12/06/19 21:03 Dose: 50 mg Documented by:
--- NOTE | 2019-12-08 07:50 | Discharge Summary ---
Date of Service December 08, 2019 Admission HPI Per Admitting Provider Patient is a 69-year-old female with history of COPD, chronic respiratory failure with oxygen dependency--4 L at baseline, paroxysmal atrial fibrillation, morbid obesity, CKD 3, hypertensive heart disease, chronic diastolic heart failure, GERD, hypertension, dyslipidemia, iron deficiency anemia, spinal stenosis, anxiety and depression, hypothyroidism and other medical problems presents with history of worsening cough and shortness of breath since last few days. Patient states cough is productive with whitish to yellowish sputum, worsening dyspnea even with minimal activity. She believes that she is requiring more oxygen than her usual 4 L. She felt slightly improved with 5 L but her home health nurse reported that she does not require so. She denies any recent sick contact, travel, COVID exposure. She states taking her medications regularly. Also reports having diarrhea since last few days and some abdominal discomfort. Reports using antibiotics for bronchitis 2 weeks ago. CXR showed no findings suggestive of pneumonia. Denies any history of chest pain, palpitations, dizziness, diaphoresis, hemoptysis, fever, headache, change in vision, nausea, vomiting, blood in stools, dysuria, hematuria, recent change in medications. Admission Exam Per Admitting Provider Physical Exam: Physical Exam: Vitals signs as noted above General Appearance:Morbidly Obese, no apparent distress Head: normocephalic, Atraumatic Eyes: normal inspection, EOMI Neck: supple, Trachea midline Respiratory/Chest: Coarse decreased breath sounds, B/L wheezes, Scattered crackles, No accessory muscle use Cardiovascular: S1, S2, No murmur Abdomen/GI:Soft, Non tender, Bowel sounds present Extremities/Musculoskelatal:normal inspection, Trace edema Neurologic/Psych:AAOX3, grossly no focal neurological deficits Skin: normal color, warm Principal Diagnosis COPD exacerbation, chronic respiratory failure on home oxygen, paroxysmal atrial fibrillation, chronic diastolic heart failure ,hypertension Discharge Exam Constitutional + ill appearing; no acute distress Eyes PERRL, conjunctivae normal, anicteric sclerae ENMT external ear and nose normal, oropharynx normal Neck trachea midline, no thyromegaly Respiratory no respiratory distress and no labored breathing Auscultation: + diminished lung sounds, + crackles (Minimal bibasilar crackles- improved) and + wheezes (Wheezing is almost gone) Cardiovascular Rate/Rhythm: regular rate and regular rhythm Heart Sounds: no murmur Gastrointestinal (Abdomen) Inspection/Auscultation: abdomen normal to inspection and normal bowel sounds Percussion/Palpation: abdomen soft; abdomen nontender Neurologic moves all extremities; no focal motor deficits Discharge Data Allergies Allergy/AdvReac Type Severity Reaction Status Date / Time adhesive Allergy Severe RED RASH Verified 12/02/19 15:26 latex AdvReac Mild TAPE-SORE Verified 12/02/19 15:26 morphine AdvReac Mild DELUSIONS Verified 12/02/19 15:26 Consultations 12/02/19 16:58 ED Decision to Admit Stat 12/02/19 17:20 ED Decision to Admit Stat 12/02/19 20:44 Consult Case Management - Discharge Planning Routine Hospital Course (1) COPD exacerbation: Acute COPD Exacerbation Acute on chronic respiratory failure with hypercapnia Chronic Oxygen dependency: 4 liters at baseline Presented with Tachypnea, PH: >7.45, pCO2=50mm Hg, inability to speak in full sentences. --CXR:No change compared to the prior study. Chronic interstitial thickening and the left basilar densities persist. Therefore, this favors atelectasis/scarring. No new focal lung consolidations to suggest pneumonia. Stable bilateral hilar prominence. Negative COVID screen Continue Rocephin, Doxycycline Continue bronchodilators Blood culture: No growth to date Oxygen support per protocol Continue Aspiration precautions Decrease IV Solu-Medrol to 40mg daily Slowly Improving and remains stable Clinically a lot better today and denies any acute symptoms at rest She is ready to be discharged Prednisone on a tapering regimen Diarrhea Check Stool Studies if recurrence Diarrhea/abd pain resolved Denies any more diarrhea Stopped Hypomagnesemia Replace electrolytes as needed Will check magnesium level tomorrow-normalized Chronic Leukocytosis Likely due to steroids Paroxysmal atrial fibrillation Not on anticoagulation due to his GI bleed Continue propafenone HTN: BP elevated in ED likely situational Continue on amlodipine, metoprolol Monitor BP stable Morbid obesity BMI:39 Acute Kidney Injury on CKD III Baseline Cr ~12-1.5 Cr 1.8 today Monitor renal function Avoid nephrotoxic agents as able Chronic diastolic heart failure No signs of decompensation Monitor volume status Bumex held today due to [place] Creatinine remains elevated at 1.59 and gradually improving We will recheck in the morning and decide on whether to start diuretics or not GERD Continue PPI Dyslipidemia Continue statin Chronic Anemia Iron deficiency anemia Hb near baseline Monitor CBC Anxiety and depression Continue home medication Hypothyroidism Continue levothyroxine DVT Px: Heparin SQ Code Status Conditional:DNI only as per my discussion with patient. Code Status PT/OT prior to discharge To be discharged home today Total Time Total Time Spent Total Time Spent (In Minutes): 35 minutes Total Time Includes: Examination of the Patient, Discharge Planning, Medication Reconciliation and Communication With Other Providers Discharge Plan Discharge Items Patient Disposition: Home - Home Health Services Reason For Visit: COPD Discharge Diagnosis: COPD exacerbation, chronic respiratory failure on home oxygen, paroxysmal atrial fibrillation, chronic diastolic heart failure ,hypertension Condition on Discharge: Fair Activity: Resume your previous activity Activity Comment: No strenuous activity Lifting: No more than 10 pounds Non-emergency contact: Primary Care Provider Call non-emergency contact if: you have any medication questions Follow-up/Referrals: Babak Melendez MD [Primary Care Provider] - 12/11/19 11:00 am (12/11/2019 11:00 AM Provider Bea Wick PA-C Department [facility] ) Diet: Heart Healthy Addtl Attending Provider Instructions: Please take precaution to avoid fall Please try to avoid the respiratory stimulants as advised Pending Studies at Discharge: No Stand-Alone Forms: My [facility] [place], Smoking Cessation Medications and DC Order Prescriptions: New doxycycline hyclate 100 mg Capsule 100 mg PO BID Qty: 10 RF: 0 famotidine 20 mg Tablet 20 mg PO BID 30 Days Qty: 60 RF: 0 prednisone 10 mg tablet 10 mg PO UD Qty: 21 RF: 0 Continued Breo Ellipta 200-25 mcg/dose Blister With Device 1 inh INHALATION DAILY RF: 0 multivitamin Tablet 1 tab PO QAM RF: 0 propafenone 150 mg Tablet 150 mg PO Q8H RF: 0 gabapentin 600 mg Tablet 300 mg PO HS RF: 0 atorvastatin 20 mg Tablet 20 mg PO QPM RF: 0 metoprolol succinate 50 mg Tablet Extended Release 24 Hr 50 mg PO QAM RF: 0 levothyroxine 88 mcg Tablet 88 mcg PO DAILYBB RF: 0 sertraline [Zoloft] 25 mg Tablet 25 mg PO QAM RF: 0 allopurinol 300 mg Tablet 300 mg PO QAM RF: 0 cholecalciferol (vitamin D3) [Vitamin D3] 2,000 unit Tablet 2,000 unit PO QAM RF: 0 Daliresp 500 mcg Tablet 500 mcg PO DAILY RF: 0 albuterol sulfate 2.5 mg /3 mL (0.083 %) Solution For Nebulization 2.5 mg INHALATION Q6 PRN (Reason: Shortness Of Breath Or Wheezing) RF: 0 Spiriva with HandiHaler 18 mcg capsule, w/inhalation device 1 cap INH DAILY Qty: 30 RF: 3 tramadol 50 mg Tablet 50 mg PO Q4H PRN (Reason: pain) Qty: 20 RF: 0 potassium chloride [Klor-Con M20] 20 mEq tablet,ER particles/crystals 20 meq PO Q OTHER DAY RF: 0 diclofenac sodium [Voltaren] 1 % gel 4 g EXT QID RF: 0 amlodipine [Norvasc] 5 mg Tablet 10 mg PO QAM Qty: 30 RF: 1 metolazone 2.5 mg tablet 2.5 mg PO MOFR RF: 0 bumetanide 1 mg tablet 1 mg PO BID RF: 0 Discontinued ranitidine HCl 150 mg Tablet 150 mg PO BID RF: 0 Discharge Orders: Discharge Order (Routine); Ordered 12/07/19 Ordered By: Ruth Thomas Admission Data Admit Date/Time: 12/02/19 18:56 Attending Provider: Ruth Thomas Admit Provider: Bautista Casper Primary Care Provider: Babak Melendez Other Providers: Bautista Casper Other Interventions: Discharge Summary Assessment (RN) Last Done: 12/07/19 13:39 DC Date/Time DO NOT enter until pt leaves facility: 12/07/19 15:51
== END 2019-12-07 15:51 | disposition home health service (06) | DRG 190 ==
LOC: ED 14:08 → SUATTDRO 18:56 → 2W 18:56

== ENCOUNTER 2020-04-14 17:03 | Inpatient (IN) ==
[2020-04-14] MEDS ORDERED: ALBUT/IPRATROP 3MG/0.5MG NEB 3 ML VIAL INH STA (17:32)
[2020-04-14] MEDS ORDERED: methylPREDNISolone 125 MG/2 ML VIAL IV STA (17:32)
--- NOTE | 2020-04-14 17:39 | Emergency Department Note ---
History of Present Illness General Chief complaint: Shortness of Breath/Dyspnea Stated complaint: SOB Time Seen by Provider: 04/14/20 17:25 Source: patient History of Present Illness Provider complaint: Shortness of breath Onset (ago): day(s) Location: chest Severity: moderate Pain Consistency: + constant Maximum Pain Intensity: 9 Quality: + other (Short of breath and wheezing) Relieved By: + other (Oxygen) Associated symptoms: + cough (Productive of yellow sputum for 2 days) and + nausea/vomiting (One episode of posttussive vomiting); no chest pain and no fever/chills This is a 69-year-old female with a history of COPD who is oxygen dependent on 4 L of O2 presenting with shortness of breath for the past several days. She states her shortness of breath is constant. She has wheezing with it. She has been coughing for 2 days with yellow sputum production. She states it is better with her O2 but she is still short of breath even on oxygen. She denies any fever, loss of taste or smell, chest pain, abdominal pain, diarrhea, known exposure to COVID-19. She was tested for COVID-19 in November of this year and that was negative. She has been mostly self isolating at home. She denies using a nebulizer recently or taking any steroids. Home Medications Home Medications Medication Instructions Recorded Confirmed Type Breo Ellipta 1 inh INHALATION DAILY 03/12/18 04/14/20 History Daliresp 500 mcg PO DAILY 03/12/18 04/14/20 History allopurinol 300 mg PO QAM 03/12/18 04/14/20 History atorvastatin 20 mg PO QPM 03/12/18 04/14/20 History cholecalciferol (vitamin D3) 2,000 unit PO QAM 03/12/18 04/14/20 History [Vitamin D3] gabapentin 300 mg PO HS 03/12/18 04/14/20 History levothyroxine 88 mcg PO DAILYBB 03/12/18 04/14/20 History metoprolol succinate 50 mg PO QAM 03/12/18 04/14/20 History multivitamin 1 tab PO QAM 03/12/18 04/14/20 History propafenone 150 mg PO Q8H 03/12/18 04/14/20 History sertraline [Zoloft] 25 mg PO QAM 03/12/18 04/14/20 History albuterol sulfate 2.5 mg INHALATION Q6 PRN 08/07/18 04/14/20 History Spiriva with HandiHaler 1 cap INH DAILY #30 puffs 08/03/19 04/14/20 Rx diclofenac sodium [Voltaren] 4 g EXT QID 09/27/19 04/14/20 History potassium chloride [Klor-Con M20] 20 meq PO Q OTHER DAY 09/27/19 04/14/20 History amlodipine [Norvasc] 10 mg PO QAM #30 tab 10/03/19 04/14/20 Rx bumetanide 1 mg PO BID 12/02/19 04/14/20 History metolazone 2.5 mg PO MOFR 12/02/19 04/14/20 History doxycycline hyclate 100 mg PO BID #10 cap 12/07/19 04/14/20 Rx Allergies Allergy/AdvReac Type Severity Reaction Status Date / Time adhesive Allergy Severe RED RASH Verified 12/02/19 15:26 latex AdvReac Mild TAPE-SORE Verified 12/02/19 15:26 morphine AdvReac Mild DELUSIONS Verified 12/02/19 15:26 Past Med/Surg History Medical History Asthma Chronic respiratory failure with hypoxia CKD (chronic kidney disease), stage III COPD (chronic obstructive pulmonary disease) Depression Dyslipidemia GERD (gastroesophageal reflux disease) EVONNE (iron deficiency anemia) Lumbar spinal stenosis Morbid obesity Obesity hypoventilation syndrome Surgical History History of appendectomy 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 Hx of cholecystectomy S/P cervical spinal fusion S/P wrist surgery Family History Father Trauma Mother Diabetes Cerebral aneurysm Daughter Bipolar 1 disorder Social History Smoking Status: Former smoker Second Hand Exposure: No; Hx Alcohol Use: No Hx Substance Use: No Preferred Language: Dutch Communication Ability: Effective Food Preparation Worker Required: No Beliefs That Will Affect Care: None marital status: Current Living Situation: Family Current Living Situation Comment: dtr How many Children do You have: 1 Feels Safe at Home: Yes Assistive Devices: Glasses, Oxygen - Continuous and Walker Review of Systems See HPI for pertinent positives & negatives. and A total of 10 systems reviewed and were otherwise negative Physical Exam Vital Signs Vital Signs - 24 hr 04/14/20 17:14 04/14/20 17:32 04/14/20 18:09 Temperature 36.8 C Temperature Source Oral Pulse Rate 66 Pulse Rate [Apical] 67 Pulse Rhythm Regular Pulse Strength Normal Respiratory Rate 19 18 Respiratory Effort / Characteristics Short of Breath Spontaneous Respiratory Depth Normal Blood Pressure 153/82 H Blood Pressure [Right Arm] Blood Pressure Mean 105 Blood Pressure Mean [Right Arm] Blood Pressure Position Lying Pulse Oximetry 100 100 99 Oxygen Delivery Method Nasal Cannula Room Air Nasal Cannula Oxygen Flow Rate 4 4 Sepsis Recent Fever Within 48 Hours No Sepsis New/Unexplained Change in Mental Status No Sepsis Action Taken by Nursing No Action Required 04/14/20 19:18 Temperature Temperature Source Pulse Rate Pulse Rate [Apical] 69 Pulse Rhythm Pulse Strength Respiratory Rate 18 Respiratory Effort / Characteristics Spontaneous Respiratory Depth Normal Blood Pressure Blood Pressure [Right Arm] 100/81 Blood Pressure Mean Blood Pressure Mean [Right Arm] 87 Blood Pressure Position Pulse Oximetry 93 Oxygen Delivery Method Nasal Cannula Oxygen Flow Rate 4 Sepsis Recent Fever Within 48 Hours Sepsis New/Unexplained Change in Mental Status Sepsis Action Taken by Nursing Constitutional: Vital signs reviewed. Eyes: Pupils are equal round reactive to light. Conjunctiva are noninjected. ENT: Pharynx is clear without erythema or exudate. Mucous membranes are moist. Neck supple without meningeal signs. Respiratory: Diffuse wheezing bilaterally. Breath sounds are equal bilaterally. Cardiovascular: Regular rate and rhythm. No rubs or gallops. GI: Soft, nondistended and nontender. Bowel sounds are present. Musculoskeletal: No peripheral edema. No lower extremity tenderness. Integumentary: No cyanosis. or jaundice. Neurological: The patient is awake and alert. No focal deficits. Psychiatric: Normal affect. Not anxious appearing. Course Administered Medications Atorvastatin Calcium (Atorvastatin 20 Mg Tab) 20 mg PO QPM VAHID Stop: 05/14/20 21:59 Last Admin: 04/14/20 22:56 Dose: 20 mg Documented by: [id number] Bumetanide (Bumetanide 1 Mg Tab) 1 mg PO BID VAHID Stop: 05/14/20 21:59 Last Admin: 04/14/20 22:55 Dose: 1 mg Documented by: [id number] Diclofenac Sodium (Diclofenac Sod 1% Gel 100 Gm Tube) 4 gm EXT QID VAHID Stop: 05/14/20 21:59 Last Admin: 04/14/20 22:57 Dose: 4 gm Documented by: [id number] Doxycycline Hyclate (Doxycycline Hyclate 100 Mg Cap) 100 mg PO BID VAHID Stop: 04/21/20 21:59 Last Admin: 04/14/20 22:54 Dose: 100 mg Documented by: [id number] Gabapentin (Gabapentin 600 Mg Tab) 300 mg PO HS VAHID Stop: 05/14/20 21:59 Last Admin: 04/14/20 22:55 Dose: 300 mg Documented by: [id number] Heparin Sodium (Porcine) (Heparin Sod 5,000 Unit/0.5 Ml Vial) 5,000 units SQ Q8 VAHID Stop: 05/14/20 21:59 Last Admin: 04/14/20 22:57 Dose: Not Given Documented by: [id number] Magnesium Sulfate/Dextrose (Magnesium Sulfate / D5w) 1 gm in 100 mls @ 50 mls/hr IV Q2H VAHID Stop: 04/15/20 01:59 Last Admin: 04/14/20 23:09 Dose: 50 mls/hr Documented by: [id number] Propafenone HCl (Propafenone Hcl 150 Mg Tablet) 150 mg PO Q8H VAHID Stop: 05/14/20 21:59 Last Admin: 04/14/20 22:54 Dose: 150 mg Documented by: [id number] Discontinued Medications Albuterol (Albut/Ipratrop 3mg/0.5mg Neb 3 Ml Vial) 12 ml INH ONE STA Stop: 04/14/20 17:33 Last Admin: 04/14/20 18:08 Dose: 12 ml Documented by: [id number] Methylprednisolone (Methylprednisolone 125 Mg/2 Ml Vial) 125 mg IV NOW STA Stop: 04/14/20 17:33 Last Admin: 04/14/20 17:55 Dose: 125 mg Documented by: [id number] Medical Decision Making Differential Diagnosis COPD exacerbation, CHF, hypercapnia, bronchitis, pneumonia Medical Records Attestation: I reviewed the patient's medical records. I did perform a limited focused review of portions of the patient's old chart on the electronic medical record. The patient was admitted to the hospital for COPD exacerbation in November. Home Medications Current Medication List: was personally reviewed by me Laboratory Data Attestation: I reviewed the patient's lab results. Result diagrams: 04/14/20 17:31 04/14/20 17:31 Lab Results 04/14/20 04/14/20 04/14/20 Range/Units 17:31 17:31 17:31 WBC 13.59 H (4.8-10.8) K/uL RBC 2.99 L (4.2-5.4) M/uL Hgb 8.8 L (12.0-16.0) g/dL Hct 29.7 L (37-47) % MCV 99.3 (80-100) fL MCH 29.4 (25-34) pg MCHC 29.6 L (32-36) g/dL RDW Std Deviation 54.5 H (36.4-46.3) fL RDW Coeff of Arabella 15.1 H (11.5-14.5) % Plt Count 226 (130-400) K/uL MPV 9.3 (7.4-10.4) fL Immature Gran % (Auto) 0.2 % Neut % (Auto) 79.3 % Lymph % (Auto) 11.6 % Cedar % (Auto) 5.9 % Eos % (Auto) 2.9 % Baso % (Auto) 0.1 % Neut # (Auto) 10.77 H (1.4-6.5) K/uL Lymph # (Auto) 1.58 (1.2-3.4) K/uL Cedar # (Auto) 0.80 H (0.11-0.59) K/uL Eos # (Auto) 0.39 (0-0.5) K/uL Baso # (Auto) 0.02 (0-0.2) K/uL Immature Gran # (Auto) 0.03 H (0.00-0.02) K/uL PT Cancelled INR Cancelled APTT Cancelled PTT Ratio Cancelled Sodium 139 (136-145) mmol/L Potassium 4.4 (3.5-5.1) mmol/L Chloride 95 L (98-107) mmol/L Carbon Dioxide 42 H* (21-32) mmol/L Anion Gap 2.0 L (3-11) BUN 29 H (7-18) mg/dl Creatinine 1.45 H (0.6-1.2) mg/dl Est Cr Clr Drug Dosing 41.9 ml/min Est GFR ( Amer) 41.9 Est GFR (Non-Af Amer) 36.1 BUN/Creatinine Ratio 19.8 (10-20) Glucose 108 H (70-99) mg/dl Calcium 10.0 (8.5-10.1) mg/dl Magnesium 1.5 L (1.8-2.4) mg/dl Total Bilirubin 0.2 (0.2-1) mg/dl AST 17 (15-37) U/L ALT 12 (12-78) U/L Alkaline Phosphatase 80 (45-117) U/L Troponin I < 0.015 (0-0.045) ng/ml Total Protein 7.4 (6.4-8.2) gm/dl Albumin 2.6 L (3.4-5.0) gm/dl Globulin 4.8 H (2.5-4.0) gm/dl Albumin/Globulin Ratio 0.5 L (0.9-2) Specimen Hemolysis 04/14/20 Range/Units 18:27 WBC (4.8-10.8) K/uL RBC (4.2-5.4) M/uL Hgb (12.0-16.0) g/dL Hct (37-47) % MCV (80-100) fL MCH (25-34) pg MCHC (32-36) g/dL RDW Std Deviation (36.4-46.3) fL RDW Coeff of Arabella (11.5-14.5) % Plt Count (130-400) K/uL MPV (7.4-10.4) fL Immature Gran % (Auto) % Neut % (Auto) % Lymph % (Auto) % Cedar % (Auto) % Eos % (Auto) % Baso % (Auto) % Neut # (Auto) (1.4-6.5) K/uL Lymph # (Auto) (1.2-3.4) K/uL Cedar # (Auto) (0.11-0.59) K/uL Eos # (Auto) (0-0.5) K/uL Baso # (Auto) (0-0.2) K/uL Immature Gran # (Auto) (0.00-0.02) K/uL PT 11.5 INR 1.1 APTT 23.6 PTT Ratio 0.8 Sodium (136-145) mmol/L Potassium (3.5-5.1) mmol/L Chloride (98-107) mmol/L Carbon Dioxide (21-32) mmol/L Anion Gap (3-11) BUN (7-18) mg/dl Creatinine (0.6-1.2) mg/dl Est Cr Clr Drug Dosing ml/min Est GFR ( Amer) Est GFR (Non-Af Amer) BUN/Creatinine Ratio (10-20) Glucose (70-99) mg/dl Calcium (8.5-10.1) mg/dl Magnesium (1.8-2.4) mg/dl Total Bilirubin (0.2-1) mg/dl AST (15-37) U/L ALT (12-78) U/L Alkaline Phosphatase (45-117) U/L Troponin I (0-0.045) ng/ml Total Protein (6.4-8.2) gm/dl Albumin (3.4-5.0) gm/dl Globulin (2.5-4.0) gm/dl Albumin/Globulin Ratio (0.9-2) Specimen Hemolysis Imaging Data Radiologist's Impression: XR chest 1V portable CLINICAL HISTORY: Dyspnea COMPARISON STUDY: No previous studies for comparison. FINDINGS: The heart remains enlarged. There is persistent interstitial thickening. There is chronic left basilar scarring. There is an opacity within the right midlung zone laterally, unchanged from several prior studies, therefore likely representing an area of pleural-parenchymal scarring. There are postsurgical changes of a total right shoulder arthroplasty. There is evidence for prior vertebroplasty[ IMPRESSION: 1. Cardiomegaly and chronic interstitial thickening 2. Chronic opacities at the left lung base and right midlung zone laterally. 3. No acute findings ACT 112: Negative or not required by law. Electronically signed by: Fox Garcia M.D. 04/14/2020 5:51 PM ECG Data Rate (beats per minute): 66 Rhythm: + normal sinus ECG Intervals/blocks: + Normal QRS ECG ST segments: no ST elevation ECG Findings: no PVCs MDM Narrative I did evaluate the patient as noted above. She is presenting with shortness of breath and a productive cough for the past several days. She has had no fevers or chest pain or known exposure to COVID-19. On exam she has diffuse wheezing throughout her lungs. IV access was established. I did place an order for continuous cardiac monitoring. The monitor showed normal sinus rhythm at a rate of 66 bpm. I did treat her with Solu-Medrol IV. She was also given an hour- long continuous DuoNeb. I did order and personally review the patient's 12-lead EKG as described above. Her twelve-lead EKG does not demonstrate any acute ischemia. I did order and personally reviewed the images of the patient's chest x-ray as described above. She has no evidence of pneumonia. I did order and review the patient's blood work as noted in the electronic medical record. Her white count is 14,000. She is anemic with a hemoglobin of 8.8. Creatinine is 1.45. This is her baseline. Her CO2 is 42. This is above her baseline which is usually 37. I did reassess the patient. She is feeling better. Her wheezing is improved but she still has some on exam. She will be hospitalized for further care and evaluation. I did discuss the case with the hospitalist and window caser. Impression & Plan Acute exacerbation of chronic obstructive pulmonary disease, Anemia, Hypercapnia, CKD (chronic kidney disease) Discharge Plan Visit Data Chief Complaint: Shortness of Breath/Dyspnea Stated Complaint: SOB ED Provider: Harpal Reece Discharge Problem: Acute exacerbation of chronic obstructive pulmonary disease, Anemia, Hypercapnia, CKD (chronic kidney disease) Patient Disposition: Admitted As Inpatient Discharge Instructions Interventions: ED Discharge Assessment Last Done: 04/14/20 21:42 Discharge Problem: Anemia Qualifiers: Anemia type: unspecified type Qualified Code(s): D64.9 - Anemia, unspecified CKD (chronic kidney disease) Qualifiers: Chronic kidney disease stage: unspecified stage Qualified Code(s): N18.9 - Chronic kidney disease, unspecified
[2020-04-14 17:44] LABS: Basophils # (auto) 0.02 K/uL (0-0.2); Basophils % (auto) 0.1 %; Eosinophils # (auto) 0.39 K/uL (0-0.5); Eosinophils % (auto) 2.9 %; Hematocrit (blood only) 29.7 % (37-47); Hemoglobin 8.8 g/dL (12.0-16.0); Immature Granulocytes # (auto) 0.03 K/uL (0.00-0.02); Immature Granulocytes % (auto) 0.2 %; Lymphocytes # (auto) 1.58 K/uL (1.2-3.4); Lymphocytes % (auto) 11.6 %; Mean Corpuscular Hemoglobin 29.4 pg (25-34); Mean Corpuscular Hgb Conc 29.6 g/dL (32-36); Mean Corpuscular Volume 99.3 fL (80-100); Mean Platelet Volume 9.3 fL (7.4-10.4); Monocytes % (auto) 5.9 %; Neutrophils # (auto) 10.77 K/uL (1.4-6.5); Neutrophils % (auto) 79.3 %; Platelet Count 226 K/uL (130-400); RDW Coefficient of Variation 15.1 % (11.5-14.5); RDW Standard Deviation 54.5 fL (36.4-46.3); Red Blood Count 2.99 M/uL (4.2-5.4); White Blood Count 13.59 K/uL (4.8-10.8)
--- NOTE | 2020-04-14 17:52 | XRay Report ---
XR chest 1V portable CLINICAL HISTORY: Dyspnea COMPARISON STUDY: No previous studies for comparison. FINDINGS: The heart remains enlarged. There is persistent interstitial thickening. There is chronic l eft basilar scarring. There is an opacity within the right midlung zone laterally, unchanged from sev eral prior studies, therefore likely representing an area of pleural-parenchymal scarring. There are postsurgical changes of a total right shoulder arthroplasty. There is evidence for prior vertebroplas ty[ IMPRESSION: 1. Cardiomegaly and chronic interstitial thickening 2. Chronic opacities at the left lung base and right midlung zone laterally. 3. No acute findings ACT 112: Negative or not required by law. Electronically signed by: Fox Garcia M.D. 04/14/2020 5:51 PM
[2020-04-14 18:14] LABS: Alanine Aminotransferase 12 U/L (12-78); Albumin Globulin Ratio 0.5 (0.9-2); Albumin Level 2.6 gm/dl (3.4-5.0); Alkaline Phosphatase 80 U/L (45-117); Aspartate Aminotransferase 17 U/L (15-37); BUN Creatinine Ratio 19.8 (10-20); Bilirubin,Total 0.2 mg/dl (0.2-1); Blood Urea Nitrogen 29 mg/dl (7-18); Carbon Dioxide 42 mmol/L (21-32); Chloride 95 mmol/L (98-107); Creatinine Clr Calc Pharmacy 41.9 ml/min; Est GFR (African American) 41.9; Est GFR (Non-African American) 36.1; Globulin 4.8 gm/dl (2.5-4.0); Glucose 108 mg/dl (70-99); Magnesium 1.5 mg/dl (1.8-2.4); Potassium 4.4 mmol/L (3.5-5.1); Sodium 139 mmol/L (136-145); Total Protein 7.4 gm/dl (6.4-8.2); Troponin I < 0.015 ng/ml (0-0.045)
[2020-04-14 18:47] LABS: INR 1.1 (0.9-1.1); Partial Thromboplastin Ratio 0.8; Partial Thromboplastin Time 23.6 Seconds (21.0-31.0); Prothrombin Time 11.5 Seconds (9.0-12.0)
[2020-04-14] MEDS ORDERED: IPRATROPIUM BROMIDE NEB SOLN 0.02% 2.5 ML VIAL INH PRN (22:00)
[2020-04-14] MEDS ORDERED: NITROGLYCERIN SL 0.4 MG/TAB TAB SL PRN (22:00)
[2020-04-14] MEDS ORDERED: ONDANSETRON INJ 2 MG/ML 2 ML VIAL IV PRN (22:00)
[2020-04-14] MEDS ORDERED: LEVALBUTEROL 1.25MG/0.5ML NEB INH PRN (22:00)
[2020-04-14] MEDS ORDERED: XOPENEX/ATROVENT 1.25mg/0.5MG NEB COMBO NEB PRN (22:00)
--- NOTE | 2020-04-14 22:33 | History and Physical Report ---
DATE OF ADMISSION: 04/14/2020 CHIEF COMPLAINT: Shortness of breath. HISTORY OF PRESENT ILLNESS: A 69-year-old female with past medical history significant for severe COPD, chronic respiratory failure on 4 liters oxygen all the time, hyperlipidemia, hypothyroidism, history of chronic kidney disease stage 3, hypertension, right-sided heart failure, morbid obesity, GERD, iron deficiency anemia, depression with anxiety, spinal stenosis, who presents with shortness of breath. The patient lives with her daughter. She ambulates with the help of walker. She says since 2 days she is feeling more short of breath having cough and bringing up yellowish phlegm. Denies any fevers, chills. She says she gets sometimes runny nose. She had some sore throat earlier in the morning, but that is resolved now. She was nauseous earlier that is resolved now. She has some diarrhea. Has headaches, no blurred vision, no earaches. Right now feeling hungry and wants to eat. Denies any chest pain. Currently, no nausea, no abdominal pain. Normal bladder movements. No rash seen. Currently resting comfortably and able to speak in full sentences. No fevers. ALLERGIES: No known drug allergies. PAST MEDICAL HISTORY: As mentioned above. PAST SURGICAL HISTORY: Colonoscopy, neck spine fusion surgery, appendectomy, cholecystectomy, repair of the wrist fracture, right shoulder surgery, right total hip replacement. MEDICATIONS: The patient is on albuterol 2.5 mg inhalation q. 6 hours p.r.n., allopurinol 300 mg p.o. a.m., amlodipine 10 mg p.o. a.m., atorvastatin 20 mg p.o. q.p.m., Breo Ellipta 1 inhalation daily, Bumex 1 mg p.o. b.i.d., vitamin D 2000 units p.o. daily, Daliresp 500 mcg p.o. daily, diclofenac sodium 4 grams external q.i.d., docusate 100 mg p.o. b.i.d., gabapentin 300 mg p.o. at bedtime, levothyroxine 88 mcg p.o. daily, metolazone 2.5 mg p.o. on Wednesday and Wednesday, Toprol-XL 50 mg p.o. daily, multivitamin 1 tablet daily, potassium chloride 20 mEq p.o. every other day, propafenone 150 mg p.o. q. 8 hours, Zoloft 25 mg p.o. a.m., Spiriva 1 capsule inhalation daily. FAMILY HISTORY: Significant for mother has diabetes and heart disorder; sister has heart disorder. SOCIAL HISTORY: , lives with her daughter. Quit smoking in 2009. Smoked an average of a pack per day for 35 years. No alcohol use, no drug use. REVIEW OF SYSTEMS: As per HPI. Rest of the review of systems negative. PHYSICAL EXAMINATION: GENERAL: The patient is obese, currently not in acute distress. VITAL SIGNS: Temperature 36.8, pulse 69, respiratory rate 18, blood pressure 100/81, oxygen 93% on 4 liters. HEENT: Pupils equal, round, reactive to light. Oral mucosa moist. NECK: No JVD, no neck masses seen. CARDIOVASCULAR: S1, S2 heard, regular rate and rhythm, no murmur, no gallop. RESPIRATORY SYSTEM: Normal AP diameter. No accessory muscle use. Bilateral rhonchi heard, no crackles. ABDOMEN: Soft, bowel sounds present, nontender. No distention. CENTRAL NERVOUS SYSTEM: Cranial nerves II-XII grossly intact, nonfocal. EXTREMITIES: Bilateral lower extremity +1 pedal edema present, no erythema seen. LABORATORY DATA: WBC 13.5, hemoglobin 8.8, hematocrit 29.7, platelets 226. PT 11.5, INR 1.1, APTT 23.6. Sodium 139, potassium 4.4, chloride 95, bicarbonate 42, BUN 29, creatinine 1.45, calcium 10, magnesium 1.5, total bilirubin 0.2, AST 17, ALT 12, alkaline phosphatase 80, troponin I less than 0.015. IMAGING DATA: Chest x-ray, cardiomegaly and chronic interstitial thickening, chronic opacity of the left lung base and right mid lung laterally. No acute findings. EKG: Normal sinus rhythm at a rate of 66. Nonspecific ST abnormality, no acute ST changes seen. ASSESSMENT AND PLAN: This is a 69-year-old female who presents with shortness of breath with history of severe chronic obstructive pulmonary disease, most likely chronic obstructive pulmonary disease exacerbation. 1. Chronic obstructive pulmonary disease exacerbation, history of severe chronic obstructive pulmonary disease and chronic respiratory failure on 4 liters oxygen. Currently saturating okay on 4 liters. Bilateral rhonchi heard. Chest x-ray, no acute findings. Mild leukocytosis. We will empirically start on Rocephin and doxycycline, IV Solu-Medrol 40 mg t.i.d., nebs around the clock and p.r.n. home inhalers and will closely monitor in the med tele. 2. Chronic diastolic congestive heart failure, chronic right-sided heart failure. Continue her home Bumex and metolazone as directed, on Toprol-XL We will monitor for volume overload. 3. History of gout. Continue allopurinol. 4. History of hyperlipidemia. Continue statin. 5. Chronic kidney disease stage III, creatinine of 1.4, seems to be at baseline. We will follow the repeat labs. 6. Hypomagnesemia, we will replace. 7. Iron deficiency anemia, anemia of chronic kidney disease. Hemoglobin 8.8. Will follow the stool for Hemoccult. Follow the repeat labs. 8. Morbid obesity, needs counseling. 9. Depression. Continue Zoloft. 10. Hypothyroidism. Continue Synthroid. 11. Hypertension. Continue Toprol-XL and amlodipine. Will monitor the blood pressure. 12. Question of atrial fibrillation .As per cardiology notes in 2017- No records available for this.NOt on anticoagulation secondary to GI bleeding?. Patient is on Toprol-XL and Rythmol. Will monitor in tele floor. 13. Deep vein thrombosis prophylaxis. Will place on heparin subQ. DISPOSITION: Closely monitor in med tele. PT and OT prior to discharge. Social service to help with discharge planning. QUANG
[2020-04-14] MEDS: PROPAFENONE HCL 150 MG TABLET PO SCH (22:54)
[2020-04-14] MEDS: DOXYCYCLINE HYCLATE 100 MG CAP PO SCH (22:54)
[2020-04-14] MEDS: GABAPENTIN 600 MG TAB PO SCH (22:55)
[2020-04-14] MEDS: BUMETANIDE 1 MG TAB PO SCH (22:55)
[2020-04-14] MEDS: ATORVASTATIN 20 MG TAB PO SCH (22:56)
[2020-04-14] MEDS: HEPARIN SOD 5,000 UNIT/0.5 ML VIAL SQ SCH (22:57)
[2020-04-14] MEDS: DICLOFENAC SOD 1% GEL 100 GM TUBE EXT SCH (22:57)
[2020-04-14] MEDS: MAGNESIUM SULFATE / D5W 1 GM/100 ML BAG IV SCH (23:09)
[2020-04-15] MEDS: cefTRIAXone SODIUM 2,000 MG in DEXTROSE 5% 50 ML IV SCH (00:37)
[2020-04-15] MEDS ORDERED: XOPENEX/ATROVENT 1.25mg/0.5MG NEB COMBO NEB SCH (01:00)
[2020-04-15] MEDS: LEVALBUTEROL 1.25MG/0.5ML NEB INH SCH ×4 (01:11→19:53)
[2020-04-15] MEDS: IPRATROPIUM BROMIDE NEB SOLN 0.02% 2.5 ML VIAL INH SCH ×4 (01:11→19:54)
[2020-04-15] MEDS: MAGNESIUM SULFATE / D5W 1 GM/100 ML BAG IV SCH (01:16)
[2020-04-15] MEDS: ACETAMINOPHEN 325 MG TAB PO PRN ×2 (01:38→11:45)
[2020-04-15] MEDS ORDERED: ROPINIROLE HCL 0.25 MG TABLET PO STA (03:12)
[2020-04-15] MEDS: methylPREDNISolone 40 MG in SYRINGE 0 ML IV SCH ×3 (03:16→20:20)
[2020-04-15] MEDS: PROPAFENONE HCL 150 MG TABLET PO SCH ×3 (05:31→20:23)
[2020-04-15] MEDS: LEVOTHYROXINE SODIUM 88 MCG TABLET PO SCH (05:31)
[2020-04-15] MEDS: HEPARIN SOD 5,000 UNIT/0.5 ML VIAL SQ SCH ×3 (05:31→20:23)
[2020-04-15 05:57] LABS: Hematocrit (blood only) 32.6 % (37-47); Hemoglobin 9.8 g/dL (12.0-16.0); Immature Granulocytes # (auto) 0.03 K/uL (0.00-0.02); Immature Granulocytes % (auto) 0.3 %; Lymphocytes # (auto) 0.51 K/uL (1.2-3.4); Lymphocytes % (auto) 5.5 %; Mean Corpuscular Hemoglobin 28.8 pg (25-34); Mean Corpuscular Hgb Conc 30.1 g/dL (32-36); Mean Corpuscular Volume 95.9 fL (80-100); Mean Platelet Volume 9.3 fL (7.4-10.4); Monocytes # (auto) 0.03 K/uL (0.11-0.59); Monocytes % (auto) 0.3 %; Neutrophils # (auto) 8.72 K/uL (1.4-6.5); Neutrophils % (auto) 93.9 %; Platelet Count 237 K/uL (130-400); RDW Standard Deviation 52.2 fL (36.4-46.3); White Blood Count 9.29 K/uL (4.8-10.8)
[2020-04-15 06:38] LABS: BUN Creatinine Ratio 22.1 (10-20); Calcium 10.5 mg/dl (8.5-10.1); Creatinine Clr Calc Pharmacy 37.6 ml/min; Est GFR (African American) 37.2; Est GFR (Non-African American) 32.1; Ferritin 749.1 ng/ml (8-388); Magnesium 2.3 mg/dl (1.8-2.4); Potassium 3.8 mmol/L (3.5-5.1)
[2020-04-15] MEDS ORDERED: metOLazone 2.5 MG TABLET PO SCH (08:00)
[2020-04-15] MEDS: FLUTICASONE/VILANTEROL 200/25MCG 14 PUFFS/INHALER INH SCH (08:02)
[2020-04-15] MEDS: ROFLUMILAST 500 MCG TAB PO SCH (08:02)
[2020-04-15] MEDS: UMECLIDINIUM BROMIDE 62.5MCG/BLISTER 7 PUFFS/INHALER INH SCH (08:02)
[2020-04-15] MEDS: BUMETANIDE 1 MG TAB PO SCH ×2 (08:02→20:22)
[2020-04-15 08:03] LABS: Folate (Folic Acid) > 24.00 ng/ml (>5.38); Vitamin B12 1208 pg/ml (211-911)
[2020-04-15] MEDS: DICLOFENAC SOD 1% GEL 100 GM TUBE EXT SCH ×4 (08:04→20:22)
[2020-04-15] MEDS: POTASSIUM CHLORIDE 20 MEQ TABCR PO SCH (08:04)
[2020-04-15] MEDS: allopurinoL 300 MG TAB PO SCH (08:05)
[2020-04-15] MEDS: AMLODIPINE BESYLATE 5 MG TAB PO SCH (08:05)
[2020-04-15] MEDS: CHOLECALCIFEROL 1,000 UNITS 25 MCG TAB PO SCH (08:05)
[2020-04-15] MEDS: SERTRALINE HCL 50 MG TABLET PO SCH (08:05)
[2020-04-15] MEDS: METOPROLOL SUCC 50MG EXT REL TAB PO SCH (08:05)
[2020-04-15] MEDS: MULTIVITAMIN TAB PO SCH (08:05)
[2020-04-15] MEDS: DOXYCYCLINE HYCLATE 100 MG CAP PO SCH ×2 (08:05→20:21)
--- NOTE | 2020-04-15 16:41 | Hospitalist Progress Note ---
Date of Service April 15, 2020 Assessment & Plan (1) Acute exacerbation of chronic obstructive pulmonary disease: History of COPD with chronic respiratory failure on oxygen Admitted with increasing shortness of breath and noted to have acute exacerbation No pneumonia on x-ray Has been getting nebulized bronchodilators, intravenous Solu-Medrol and IV antibiotics Will de-escalate antibiotic following further results of test (2) Chronic diastolic CHF (congestive heart failure): No acute exacerbation and no fluid overload (3) PAF (paroxysmal atrial fibrillation): Remains in sinus rhythm for now No acute cardiac symptoms (4) MRSA (methicillin resistant staph aureus) culture positive: History of MRSA with positive culture (5) Morbid obesity: (6) Anemia: (7) Chronic respiratory failure with hypoxia: (8) CKD (chronic kidney disease): Will monitor kidney function DVT prophylaxis Subcu heparin Admission and Anticipated Discharge Date Admission Date: April 14, 2020 Subjective 04/15/2020 The patient was seen and examined in medical telemetry unit She has COPD on home oxygen and came in with an acute exacerbation Has been feeling a little better since admission Denies any chest pain, fever, nausea and/or vomiting Review of Systems Review of Systems: All systems reviewed and are unremarkable except as noted below Respiratory: + cough, + chest congestion and + dyspnea on exertion Physical Exam Physical Exam: Sitting on a chair with moderate shortness of breath Constitutional: well developed, well nourished, + acute distress, + ill appearing and + obese Eyes: PERRL, conjunctivae normal, anicteric sclerae ENMT: external ear and nose normal, oropharynx normal Neck: trachea midline, no thyromegaly Respiratory: + respiratory distress (Moderate shortness of breath at rest); does not use accessory muscles Auscultation: + diminished lung sounds, + crackles (Minimal bibasilar crackles) and + wheezes Cardiovascular: Rate/Rhythm: regular rate and regular rhythm Heart Sounds: no murmur Extremities: + edema (Trace to 1+ edema bilaterally) Gastrointestinal (Abdomen): Inspection/Auscultation: abdomen normal to inspection; abdomen not distended Percussion/Palpation: abdomen soft Musculoskeletal: No acute arthritis involving any joints Neurologic: moves all extremities and + focal motor deficit Psychiatric: A+Ox3, euthymic affect Lymphatic: no cervical or axillary lymphadenopathy Results & Data Results & Data ([facility]) Vital Signs (Past 12 Hours) Vital Signs Temp Pulse Pulse Pulse Resp BP Pulse Ox 04/15/20 15:46 36.8 C 80 18 165/69 H 98 04/15/20 13:13 84 18 94 04/15/20 11:33 36.8 C 80 18 155/70 H 95 04/15/20 07:50 69 04/15/20 07:25 73 18 96 04/15/20 07:22 36.7 C 77 18 178/81 H 97 Laboratory Results Short CBC 04/14/20 04/15/20 Range/Units 17:31 05:38 WBC 13.59 H 9.29 (4.8-10.8) K/uL Hgb 8.8 L 9.8 L (12.0-16.0) g/dL Hct 29.7 L 32.6 L (37-47) % Plt Count 226 237 (130-400) K/uL BMP 04/14/20 04/15/20 17:31 05:38 Sodium 139 137 Potassium 4.4 3.8 Chloride 95 L 92 L Carbon Dioxide 42 H* 40 H BUN 29 H 35 H Creatinine 1.45 H 1.60 H Glucose 108 H 166 H Calcium 10.0 10.5 H Cardiac Enzymes 04/14/20 Range/Units 17:31 Troponin I < 0.015 (0-0.045) ng/ml Liver Function 04/14/20 Range/Units 17:31 Total Bilirubin 0.2 (0.2-1) mg/dl AST 17 (15-37) U/L ALT 12 (12-78) U/L Alkaline Phosphatase 80 (45-117) U/L Albumin 2.6 L (3.4-5.0) gm/dl Medications Administered Current Inpatient Medications Acetaminophen (Acetaminophen 325 Mg Tab) 650 mg PO Q4H PRN PRN Reason: Pain or Fever Stop: 05/14/20 21:59 Last Admin: 04/15/20 11:45 Dose: 650 mg Documented by: Allopurinol (Allopurinol 300 Mg Tab) 300 mg PO [facility] Stop: 05/15/20 08:59 Last Admin: 04/15/20 08:05 Dose: 300 mg Documented by: Amlodipine Besylate (Amlodipine Besylate 5 Mg Tab) 10 mg PO [facility] Stop: 05/15/20 08:59 Last Admin: 04/15/20 08:05 Dose: 10 mg Documented by: Atorvastatin Calcium (Atorvastatin 20 Mg Tab) 20 mg PO QPM [facility] Stop: 05/14/20 21:59 Last Admin: 04/14/20 22:56 Dose: 20 mg Documented by: Bumetanide (Bumetanide 1 Mg Tab) 1 mg PO BID [facility] Stop: 05/14/20 21:59 Last Admin: 04/15/20 08:02 Dose: 1 mg Documented by: Diclofenac Sodium (Diclofenac Sod 1% Gel 100 Gm Tube) 4 gm EXT QID [facility] Stop: 05/14/20 21:59 Last Admin: 04/15/20 15:54 Dose: Not Given Documented by: Doxycycline Hyclate (Doxycycline Hyclate 100 Mg Cap) 100 mg PO BID [facility] Stop: 04/21/20 21:59 Last Admin: 04/15/20 08:05 Dose: 100 mg Documented by: Fluticasone/Vilanterol (Fluticasone/Vilanterol 200/25mcg 14 Puffs/Inhaler) 1 puffs INH DAILY [facility] Stop: 05/15/20 08:59 Last Admin: 04/15/20 08:02 Dose: 1 puffs Documented by: Gabapentin (Gabapentin 600 Mg Tab) 300 mg PO HS [facility] Stop: 05/14/20 21:59 Last Admin: 04/14/20 22:55 Dose: 300 mg Documented by: Heparin Sodium (Porcine) (Heparin Sod 5,000 Unit/0.5 Ml Vial) 5,000 units SQ Q8 [facility] Stop: 05/14/20 21:59 Last Admin: 04/15/20 13:51 Dose: 5,000 units Documented by: Ceftriaxone Sodium 2,000 mg/ (Dextrose) 70 mls @ 100 mls/hr IV Q24H [facility]; Protocol Stop: 04/21/20 22:59 Last Infusion: 04/15/20 01:23 Dose: Infused Documented by: Methylprednisolone 40 mg/ (Syringe) 0.64 mls @ 1.5 mls/min IV Q8H [facility] Stop: 05/15/20 03:59 Last Admin: 04/15/20 11:46 Dose: 1.5 mls/min Documented by: Influenza Virus Vaccine (Influenza Vaccine High Dose 65+ 0.5 Ml Syr) 0.5 ml IM .ONCE ONE Stop: 04/17/20 09:01 Ipratropium [place] (Ipratropium [place] Neb Soln 0.02% 2.5 Ml Vial) 0.5 mg INH Q6R [facility] Stop: 05/15/20 00:59 Last Admin: 04/15/20 13:11 Dose: 0.5 mg Documented by: Ipratropium [place] (Ipratropium [place] Neb Soln 0.02% 2.5 Ml Vial) 0.5 mg INH Q2H PRN PRN Reason: Shortness Of Breath Or Wheezing Stop: 05/14/20 21:59 Levalbuterol HCl (Levalbuterol 1.25mg/0.5ml Neb) 1.25 mg INH Q6R [facility] Stop: 05/15/20 00:59 Last Admin: 04/15/20 13:11 Dose: 1.25 mg Documented by: Levalbuterol HCl (Levalbuterol 1.25mg/0.5ml Neb) 1.25 mg INH Q2H PRN PRN Reason: Shortness Of Breath Or Wheezing Stop: 05/14/20 21:59 Levothyroxine Sodium (Levothyroxine Sodium 88 Mcg Tablet) 88 mcg PO DAILYBB [facility] Stop: 05/15/20 06:29 Last Admin: 04/15/20 05:31 Dose: 88 mcg Documented by: Metolazone (Metolazone 2.5 Mg Tablet) 2.5 mg PO MoFr@0800 [facility] Stop: 05/15/20 07:59 Last Admin: 04/15/20 08:02 Dose: 2.5 mg Documented by: Metoprolol Succinate (Metoprolol Succ 50mg Ext Rel Tab) [facility] [place] Stop: 05/15/20 08:59 Last Admin: 04/15/20 08:05 Dose: 50 mg Documented by: Multivitamins (Multivitamin Tab) [facility] [place] Stop: 05/15/20 08:59 Last Admin: 04/15/20 08:05 Dose: 1 tab Documented by: Nitroglycerin (Nitroglycerin Sl 0.4 Mg/Tab Tab) 0.4 mg SL UD PRN PRN Reason: Chest Pain Stop: 05/14/20 21:59 Ondansetron HCl (Ondansetron Inj 2 Mg/Ml 2 Ml Vial) 4 mg IV Q6H PRN PRN Reason: Nausea Stop: 05/14/20 21:59 Last Admin: 04/15/20 15:49 Dose: 4 mg Documented by: Potassium Chloride (Potassium Chloride 20 Meq Tabcr) 20 meq PO Q2D@0900 [facility] Stop: 05/15/20 08:59 Last Admin: 04/15/20 08:04 Dose: 20 meq Documented by: Propafenone HCl (Propafenone Hcl 150 Mg Tablet) 150 mg PO Q8H [facility] Stop: 05/14/20 21:59 Last Admin: 04/15/20 13:51 Dose: 150 mg Documented by: Roflumilast (Roflumilast 500 Mcg Tab) 500 mcg PO DAILY [facility] Stop: 05/15/20 08:59 Last Admin: 04/15/20 08:02 Dose: 500 mcg Documented by: Sertraline HCl (Sertraline Hcl 50 Mg Tablet) 25 mg PO QAM [facility] Stop: 05/15/20 08:59 Last Admin: 04/15/20 08:05 Dose: 25 mg Documented by: Umeclidinium [place] (Umeclidinium [place] 62.5mcg/Blister 7 Puffs/Inhaler) 1 puffs INH DAILY [facility] Stop: 05/15/20 08:59 Last Admin: 04/15/20 08:02 Dose: 1 puffs Documented by: Vitamin D (Cholecalciferol 1,000 Units 25 Mcg Tab) 2,000 units PO QAM [facility] Stop: 05/15/20 08:59 Last Admin: 04/15/20 08:05 Dose: 2,000 units Documented by: (1) Anemia Anemia type: unspecified type Qualified Code(s): D64.9 - Anemia, unspecified (2) CKD (chronic kidney disease) Chronic kidney disease stage: unspecified stage Qualified Code(s): N18.9 - Chronic kidney disease, unspecified
--- NOTE | 2020-04-15 16:49 | Electrocardiogram Report ---
Test Reason : Blood Pressure : / mmHG Vent. Rate : 066 BPM Atrial Rate : 066 BPM P-R Int : 202 ms QRS Dur : 110 ms QT Int : 422 ms P-R-T Axes : -24 062 067 degrees QTc Int : 442 ms Normal sinus rhythm When compared with ECG of 02-DEC-2019 14:20, Incomplete right bundle branch block is no longer Present Confirmed by Juan José Garces ([id number]) on 04/15/2020 4:49:29 PM Referred By: REFERRED SELF Confirmed By:Dilshad Garces
[2020-04-15] MEDS: ATORVASTATIN 20 MG TAB PO SCH (20:21)
[2020-04-15] MEDS: GABAPENTIN 600 MG TAB PO SCH (20:21)
[2020-04-15] MEDS ORDERED: ROPINIROLE HCL 0.25 MG TABLET PO PRN (20:37)
[2020-04-16] MEDS: cefTRIAXone SODIUM 2,000 MG in DEXTROSE 5% 50 ML IV SCH (00:17)
[2020-04-16] MEDS: IPRATROPIUM BROMIDE NEB SOLN 0.02% 2.5 ML VIAL INH SCH ×4 (00:46→20:18)
[2020-04-16] MEDS: LEVALBUTEROL 1.25MG/0.5ML NEB INH SCH ×4 (00:46→20:18)
[2020-04-16] MEDS: methylPREDNISolone 40 MG in SYRINGE 0 ML IV SCH ×3 (04:11→21:12)
[2020-04-16] MEDS: HEPARIN SOD 5,000 UNIT/0.5 ML VIAL SQ SCH ×3 (05:45→21:12)
[2020-04-16] MEDS: PROPAFENONE HCL 150 MG TABLET PO SCH ×3 (05:49→21:12)
[2020-04-16] MEDS: LEVOTHYROXINE SODIUM 88 MCG TABLET PO SCH (05:49)
[2020-04-16] MEDS: FLUTICASONE/VILANTEROL 200/25MCG 14 PUFFS/INHALER INH SCH (09:35)
[2020-04-16] MEDS: UMECLIDINIUM BROMIDE 62.5MCG/BLISTER 7 PUFFS/INHALER INH SCH (09:35)
[2020-04-16] MEDS: BUMETANIDE 1 MG TAB PO SCH ×2 (09:35→21:13)
[2020-04-16] MEDS: allopurinoL 300 MG TAB PO SCH (09:36)
[2020-04-16] MEDS: MULTIVITAMIN TAB PO SCH (09:36)
[2020-04-16] MEDS: AMLODIPINE BESYLATE 5 MG TAB PO SCH (09:36)
[2020-04-16] MEDS: DOXYCYCLINE HYCLATE 100 MG CAP PO SCH ×2 (09:36→21:13)
[2020-04-16] MEDS: CHOLECALCIFEROL 1,000 UNITS 25 MCG TAB PO SCH (09:36)
[2020-04-16] MEDS: SERTRALINE HCL 50 MG TABLET PO SCH (09:36)
[2020-04-16] MEDS: ROFLUMILAST 500 MCG TAB PO SCH (09:36)
[2020-04-16] MEDS: METOPROLOL SUCC 50MG EXT REL TAB PO SCH (09:36)
[2020-04-16] MEDS: DICLOFENAC SOD 1% GEL 100 GM TUBE EXT SCH ×4 (09:36→21:11)
--- NOTE | 2020-04-16 18:26 | Hospitalist Progress Note ---
Date of Service April 16, 2020 Assessment & Plan (1) Acute exacerbation of chronic obstructive pulmonary disease: History of COPD with chronic respiratory failure on oxygen Admitted with increasing shortness of breath and noted to have acute exacerbation No pneumonia on x-ray Has been getting nebulized bronchodilators, intravenous Solu-Medrol and IV antibiotics Will de-escalate antibiotic following further results of test Culture have been negative We will continue oral doxycycline for now Intravenous Solu-Medrol can be changed to oral prednisone on discharge We will get PT and OT evaluation Likely discharge in a day or 2 (2) Chronic diastolic CHF (congestive heart failure): No acute exacerbation and no fluid overload (3) PAF (paroxysmal atrial fibrillation): Remains in sinus rhythm for now No acute cardiac symptoms (4) MRSA (methicillin resistant staph aureus) culture positive: History of MRSA with positive culture (5) Morbid obesity: (6) Anemia: Hemoglobin remains stable at 9.8 as of 04/15/20 (7) Chronic respiratory failure with hypoxia: (8) CKD (chronic kidney disease): Will monitor kidney function Creatinine is slightly up at 1.60 DVT prophylaxis Subcu heparin Admission and Anticipated Discharge Date Admission Date: April 14, 2020 Subjective 04/15/2020 The patient was seen and examined in medical telemetry unit She has COPD on home oxygen and came in with an acute exacerbation Has been feeling a little better since admission Denies any chest pain, fever, nausea and/or vomiting 04/16/2020 Patient was seen and examined in medical telemetry unit She has been feeling a little better today Still has wheezing but no shortness of breath at rest Review of Systems Review of Systems: All systems reviewed and are unremarkable except as noted below Respiratory: + cough, + chest congestion and + dyspnea on exertion Physical Exam Physical Exam: Sitting on a chair with moderate shortness of breath Constitutional: well developed, well nourished, + acute distress, + ill ap pearing and + obese Eyes: PERRL, conjunctivae normal, anicteric sclerae ENMT: external ear and nose normal, oropharynx normal Neck: trachea midline, no thyromegaly Respiratory: no respiratory distress (No distress at rest) and does not use accessory muscles Auscultation: + diminished lung sounds, + crackles (Minimal bibasilar crackles) and + wheezes Cardiovascular: Rate/Rhythm: regular rate and regular rhythm Heart Sounds: no murmur Extremities: + edema (Trace to 1+ edema bilaterally) Gastrointestinal (Abdomen): Inspection/Auscultation: abdomen normal to inspection; abdomen not distended Percussion/Palpation: abdomen soft Musculoskeletal: No acute arthritis in any joint Neurologic: moves all extremities and + focal motor deficit Psychiatric: A+Ox3, euthymic affect Lymphatic: no cervical or axillary lymphadenopathy Results & Data Results & Data ([facility]) Vital Signs (Past 12 Hours) Vital Signs Temp Pulse Pulse Resp BP Pulse Ox 04/16/20 17:55 74 04/16/20 15:11 36.5 C 72 18 136/73 97 04/16/20 13:18 79 18 96 04/16/20 11:10 36.7 C 79 18 137/61 96 04/16/20 07:37 73 04/16/20 07:27 76 20 96 04/16/20 06:42 36.5 C 71 20 150/69 H 98 Medications Administered Current Inpatient Medications Acetaminophen (Acetaminophen 325 Mg Tab) 650 mg PO Q4H PRN PRN Reason: Pain or Fever Stop: 05/14/20 21:59 Last Admin: 04/15/20 11:45 Dose: 650 mg Documented by: Allopurinol (Allopurinol 300 Mg Tab) 300 mg PO QAM [facility] Stop: 05/15/20 08:59 Last Admin: 04/16/20 09:36 Dose: 300 mg Documented by: Amlodipine Besylate (Amlodipine Besylate 5 Mg Tab) 10 mg PO QAM [facility] Stop: 05/15/20 08:59 Last Admin: 04/16/20 09:36 Dose: 10 mg Documented by: Atorvastatin Calcium (Atorvastatin 20 Mg Tab) 20 mg PO QPM [facility] Stop: 05/14/20 21:59 Last Admin: 04/15/20 20:21 Dose: 20 mg Documented by: Bumetanide (Bumetanide 1 Mg Tab) 1 mg PO BID [facility] Stop: 05/14/20 21:59 Last Admin: 04/16/20 09:35 Dose: 1 mg Documented by: Diclofenac Sodium (Diclofenac Sod 1% Gel 100 Gm Tube) 4 gm EXT QID [facility] Stop: 05/14/20 21:59 Last Admin: 04/16/20 18:10 Dose: Not Given Documented by: Doxycycline Hyclate (Doxycycline Hyclate 100 Mg Cap) 100 mg PO BID [facility] Stop: 04/21/20 21:59 Last Admin: 04/16/20 09:36 Dose: 100 mg Documented by: Fluticasone/Vilanterol (Fluticasone/Vilanterol 200/25mcg 14 Puffs/Inhaler) 1 puffs INH DAILY [facility] Stop: 05/15/20 08:59 Last Admin: 04/16/20 09:35 Dose: 1 puffs Documented by: Gabapentin (Gabapentin 600 Mg Tab) 300 mg PO HS [facility] Stop: 05/14/20 21:59 Last Admin: 04/15/20 20:21 Dose: 300 mg Documented by: Heparin Sodium (Porcine) (Heparin Sod 5,000 Unit/0.5 Ml Vial) 5,000 units SQ Q8 [facility] Stop: 05/14/20 21:59 Last Admin: 04/16/20 13:44 Dose: 5,000 units Documented by: Ceftriaxone Sodium 2,000 mg/ (Dextrose) 70 mls @ 100 mls/hr IV Q24H [facility]; Protocol Stop: 04/21/20 22:59 Last Infusion: 04/16/20 01:03 Dose: Infused Documented by: Methylprednisolone 40 mg/ (Syringe) 0.64 mls @ 1.5 mls/min IV Q8H [facility] Stop: 05/15/20 03:59 Last Admin: 04/16/20 12:02 Dose: 1.5 mls/min Documented by: Influenza Virus Vaccine (Influenza Vaccine High Dose 65+ 0.5 Ml Syr) 0.5 ml IM .ONCE ONE Stop: 04/17/20 09:01 Ipratropium [place] (Ipratropium [place] Neb Soln 0.02% 2.5 Ml Vial) 0.5 mg INH Q6R [facility] Stop: 05/15/20 00:59 Last Admin: 04/16/20 13:15 Dose: 0.5 mg Documented by: Ipratropium [place] (Ipratropium [place] Neb Soln 0.02% 2.5 Ml Vial) 0.5 mg INH Q2H PRN PRN Reason: Shortness Of Breath Or Wheezing Stop: 05/14/20 21:59 Levalbuterol HCl (Levalbuterol 1.25mg/0.5ml Neb) 1.25 mg INH Q6R [facility] Stop: 05/15/20 00:59 Last Admin: 04/16/20 13:16 Dose: 1.25 mg Documented by: Levalbuterol HCl (Levalbuterol 1.25mg/0.5ml Neb) 1.25 mg INH Q2H PRN PRN Reason: Shortness Of Breath Or Wheezing Stop: 05/14/20 21:59 Levothyroxine Sodium (Levothyroxine Sodium 88 Mcg Tablet) 88 mcg PO DAILYBB [facility] Stop: 05/15/20 06:29 Last Admin: 04/16/20 05:49 Dose: 88 mcg Documented by: Metolazone (Metolazone 2.5 Mg Tablet) 2.5 mg PO MoFr@0800 [facility] Stop: 05/15/20 07:59 Last Admin: 04/15/20 08:02 Dose: 2.5 mg Documented by: Metoprolol Succinate (Metoprolol Succ 50mg Ext Rel Tab) 50 mg PO QAM [facility] Stop: 05/15/20 08:59 Last Admin: 04/16/20 09:36 Dose: 50 mg Documented by: Multivitamins (Multivitamin Tab) 1 [facility] [place] Stop: 05/15/20 08:59 Last Admin: 04/16/20 09:36 Dose: 1 tab Documented by: Nitroglycerin (Nitroglycerin Sl 0.4 Mg/Tab Tab) 0.4 mg SL UD PRN PRN Reason: Chest Pain Stop: 05/14/20 21:59 Ondansetron HCl (Ondansetron Inj 2 Mg/Ml 2 Ml Vial) 4 mg IV Q6H PRN PRN Reason: Nausea Stop: 05/14/20 21:59 Last Admin: 04/15/20 15:49 Dose: 4 mg Documented by: Potassium Chloride (Potassium Chloride 20 Meq Tabcr) 20 meq PO Q2D@0900 [facility] Stop: 05/15/20 08:59 Last Admin: 04/15/20 08:04 Dose: 20 meq Documented by: Propafenone HCl (Propafenone Hcl 150 Mg Tablet) 150 mg PO Q8H [facility] Stop: 05/14/20 21:59 Last Admin: 04/16/20 13:44 Dose: 150 mg Documented by: Roflumilast (Roflumilast 500 Mcg Tab) 500 mcg PO DAILY [facility] Stop: 05/15/20 08:59 Last Admin: 04/16/20 09:36 Dose: 500 mcg Documented by: Ropinirole HCl (Ropinirole Hcl 0.25 Mg Tablet) 0.25 mg PO HS PRN PRN Reason: restless leg Stop: 05/15/20 20:59 Last Admin: 04/15/20 21:47 Dose: 0.25 mg Documented by: Sertraline HCl (Sertraline Hcl 50 Mg Tablet) 25 mg PO QAM [facility] Stop: 05/15/20 08:59 Last Admin: 04/16/20 09:36 Dose: 25 mg Documented by: Umeclidinium [place] (Umeclidinium [place] 62.5mcg/Blister 7 Puffs/Inhaler) 1 puffs INH DAILY [facility] Stop: 05/15/20 08:59 Last Admin: 04/16/20 09:35 Dose: 1 puffs Documented by: Vitamin D (Cholecalciferol 1,000 Units 25 Mcg Tab) 2,000 units PO QAM [facility] Stop: 05/15/20 08:59 Last Admin: 04/16/20 09:36 Dose: 2,000 units Documented by: (1) Anemia Anemia type: unspecified type Qualified Code(s): D64.9 - Anemia, unspecified (2) CKD (chronic kidney disease) Chronic kidney disease stage: unspecified stage Qualified Code(s): N18.9 - Chronic kidney disease, unspecified
[2020-04-16] MEDS: GABAPENTIN 600 MG TAB PO SCH (21:13)
[2020-04-16] MEDS: ATORVASTATIN 20 MG TAB PO SCH (21:13)
[2020-04-17] MEDS: LEVALBUTEROL 1.25MG/0.5ML NEB INH SCH ×4 (01:33→19:16)
[2020-04-17] MEDS: IPRATROPIUM BROMIDE NEB SOLN 0.02% 2.5 ML VIAL INH SCH ×4 (01:33→19:16)
[2020-04-17] MEDS: methylPREDNISolone 40 MG in SYRINGE 0 ML IV SCH ×3 (04:46→20:27)
[2020-04-17] MEDS: HEPARIN SOD 5,000 UNIT/0.5 ML VIAL SQ SCH ×3 (05:18→21:28)
[2020-04-17] MEDS: LEVOTHYROXINE SODIUM 88 MCG TABLET PO SCH (05:20)
[2020-04-17] MEDS: PROPAFENONE HCL 150 MG TABLET PO SCH ×3 (05:20→21:28)
[2020-04-17 07:35] LABS: Hematocrit (blood only) 32.2 % (37-47); Hemoglobin 9.6 g/dL (12.0-16.0); Immature Granulocytes # (auto) 0.07 K/uL (0.00-0.02); Immature Granulocytes % (auto) 0.4 %; Lymphocytes % (auto) 4.5 %; Mean Corpuscular Hemoglobin 28.4 pg (25-34); Mean Corpuscular Hgb Conc 29.8 g/dL (32-36); Mean Corpuscular Volume 95.3 fL (80-100); Mean Platelet Volume 9.1 fL (7.4-10.4); Monocytes # (auto) 0.26 K/uL (0.11-0.59); Monocytes % (auto) 1.3 %; Neutrophils # (auto) 18.64 K/uL (1.4-6.5); Neutrophils % (auto) 93.8 %; Nucleated RBC # (auto) 0.02 K/uL (0-0); Nucleated RBC % (auto) 0.1 %; Platelet Count 262 K/uL (130-400); RDW Coefficient of Variation 15.2 % (11.5-14.5); RDW Standard Deviation 52.2 fL (36.4-46.3); Red Blood Count 3.38 M/uL (4.2-5.4); White Blood Count 19.87 K/uL (4.8-10.8)
[2020-04-17] MEDS: FLUTICASONE/VILANTEROL 200/25MCG 14 PUFFS/INHALER INH SCH (08:23)
[2020-04-17] MEDS: UMECLIDINIUM BROMIDE 62.5MCG/BLISTER 7 PUFFS/INHALER INH SCH (08:23)
[2020-04-17] MEDS: BUMETANIDE 1 MG TAB PO SCH ×2 (08:24→20:30)
[2020-04-17] MEDS: SERTRALINE HCL 50 MG TABLET PO SCH (08:24)
[2020-04-17] MEDS: POTASSIUM CHLORIDE 20 MEQ TABCR PO SCH (08:24)
[2020-04-17] MEDS: CHOLECALCIFEROL 1,000 UNITS 25 MCG TAB PO SCH (08:25)
[2020-04-17] MEDS: DOXYCYCLINE HYCLATE 100 MG CAP PO SCH ×2 (08:25→20:27)
[2020-04-17] MEDS: METOPROLOL SUCC 50MG EXT REL TAB PO SCH (08:25)
[2020-04-17] MEDS: ROFLUMILAST 500 MCG TAB PO SCH (08:25)
[2020-04-17] MEDS: MULTIVITAMIN TAB PO SCH (08:26)
[2020-04-17] MEDS: allopurinoL 300 MG TAB PO SCH (08:26)
[2020-04-17] MEDS: DICLOFENAC SOD 1% GEL 100 GM TUBE EXT SCH ×5 (08:26→20:34)
[2020-04-17] MEDS: AMLODIPINE BESYLATE 5 MG TAB PO SCH (08:26)
[2020-04-17 08:31] LABS: BUN Creatinine Ratio 41.5 (10-20); Calcium 10.3 mg/dl (8.5-10.1); Creatinine Clr Calc Pharmacy 36.6 ml/min; Est GFR (African American) 35.8; Est GFR (Non-African American) 30.9; Magnesium 1.9 mg/dl (1.8-2.4); Phosphorus 3.2 mg/dl (2.5-4.9); Potassium 3.9 mmol/L (3.5-5.1)
--- NOTE | 2020-04-17 08:42 | Hospitalist Progress Note ---
Date of Service April 17, 2020 Assessment & Plan (1) Acute exacerbation of chronic obstructive pulmonary disease: History of COPD with chronic respiratory failure on oxygen Admitted with increasing shortness of breath and noted to have acute exacerbation No pneumonia on x-ray Has been getting nebulized bronchodilators, intravenous Solu-Medrol and IV antibiotics Will de-escalate antibiotic following further results of test Culture have been negative We will continue oral doxycycline for now Intravenous Solu-Medrol can be changed to oral prednisone on discharge We will get PT and OT evaluation Likely discharge in a day or 2 Leukocytosis, WBC ~ 20,000, likely secondary to IV Solu-Medrol, will continue to monitor -We will switch to p.o. prednisone (2) Chronic diastolic CHF (congestive heart failure): No acute exacerbation and no fluid overload (3) PAF (paroxysmal atrial fibrillation): Remains in sinus rhythm for now No acute cardiac symptoms (4) MRSA (methicillin resistant staph aureus) culture positive: History of MRSA with positive culture (5) Morbid obesity: (6) Anemia: Hemoglobin remains stable at 9.8 as of 04/15/20 (7) Chronic respiratory failure with hypoxia: (8) CKD (chronic kidney disease): Will monitor kidney function Creatinine is slightly up at 1.60 DVT prophylaxis Subcu heparin Admission and Anticipated Discharge Date Admission Date: April 14, 2020 Subjective Patient is currently sitting in the chair, in no acute distress. She is using supplemental oxygen, 4 L at her baseline. Denies any shortness of breath or chest pain, only complains of right shoulder pain which is chronic. She is inquiring about going home and wants me to contact her daughter Noreen. I called Noreen twice however no answer. Review of Systems Review of Systems: All systems reviewed & are unremarkable except as noted in HPI & below Constitutional: no fever and no chills Respiratory: + cough (improved), + chest congestion (improved) and + dyspnea on exertion (improved) Cardiovascular: no chest pain Gastrointestinal: no abdominal pain, no nausea and no vomiting Physical Exam Physical Exam: hysical Exam: Elderly obese female, sitting in a chair in NAD, on NC suppl. O2 (4L at baseline) Constitutional: well developed, well nourished, no acute distress, + chronically ill appearing and + obese Eyes: PERRL, EOMI, conjunctivae normal, anicteric sclerae ENMT: external ear and nose normal, oropharynx normal Neck: trachea midline, no thyromegaly Respiratory: no respiratory distress (No distress at rest) and does not use accessory muscles Auscultation: + diminished lung sounds, + crackles (Minimal bibasilar crackles) and no wheezes Cardiovascular: Rate/Rhythm: regular rate and regular rhythm Heart Sounds: no murmur Extremities: + edema (Trace to 1+ edema bilaterally) Gastrointestinal (Abdomen): Inspection/Auscultation: abdomen normal to inspection; abdomen not distended Percussion/Palpation: abdomen soft Musculoskeletal: No acute arthritis in any joint Neurologic: Alert and oriented, no facial asymmetry, speech fluent, answers questions appropriately, moves all extremities Psychiatric: A+Ox3, euthymic affect Results & Data Results & Data ([facility]) Vital Signs (Past 12 Hours) Vital Signs Temp Pulse Resp BP BP Pulse Ox 04/17/20 07:24 69 18 96 04/17/20 07:00 36.5 C 69 20 159/75 H 96 04/17/20 03:35 36.8 C 70 18 159/83 H 95 04/16/20 23:08 36.8 C 74 18 163/78 H 95 Laboratory Results 04/17/20 04/17/20 Range/Units 07:16 07:16 WBC 19.87 H (4.8-10.8) K/uL RBC 3.38 L (4.2-5.4) M/uL Hgb 9.6 L (12.0-16.0) g/dL Hct 32.2 L (37-47) % MCV 95.3 (80-100) fL MCH 28.4 (25-34) pg MCHC 29.8 L (32-36) g/dL RDW Std Deviation 52.2 H (36.4-46.3) fL RDW Coeff of Arabella 15.2 H (11.5-14.5) % Plt Count 262 (130-400) K/uL MPV 9.1 (7.4-10.4) fL Immature Gran % (Auto) 0.4 % Neut % (Auto) 93.8 % Lymph % (Auto) 4.5 % [place] % (Auto) 1.3 % Eos % (Auto) 0.0 % Baso % (Auto) 0.0 % Neut # (Auto) 18.64 H (1.4-6.5) K/uL Lymph # (Auto) 0.90 L (1.2-3.4) K/uL [place] # (Auto) 0.26 (0.11-0.59) K/uL Eos # (Auto) 0.00 (0-0.5) K/uL Baso # (Auto) 0.00 (0-0.2) K/uL Immature Gran # (Auto) 0.07 H (0.00-0.02) K/uL Absolute Nucleated RBC 0.02 H (0-0) K/uL Nucleated RBC % (auto) 0.1 % Sodium 138 (136-145) mmol/L Potassium 3.9 (3.5-5.1) mmol/L Chloride 92 L (98-107) mmol/L Carbon Dioxide 44 H* (21-32) mmol/L Anion Gap 2.0 L (3-11) BUN 68 H (7-18) mg/dl Creatinine 1.65 H (0.6-1.2) mg/dl Est Cr Clr Drug Dosing 36.6 ml/min Est GFR ( Amer) 35.8 Est GFR (Non-Af Amer) 30.9 BUN/Creatinine Ratio 41.5 H (10-20) Glucose 129 H (70-99) mg/dl Calcium 10.3 H (8.5-10.1) mg/dl Phosphorus 3.2 (2.5-4.9) mg/dl Magnesium 1.9 (1.8-2.4) mg/dl Medications Administered Current Inpatient Medications Acetaminophen (Acetaminophen 325 Mg Tab) 650 mg PO Q4H PRN PRN Reason: Pain or Fever Stop: 05/14/20 21:59 Last Admin: 04/15/20 11:45 Dose: 650 mg Documented by: Allopurinol (Allopurinol 300 Mg Tab) 300 [facility] [place] Stop: 05/15/20 08:59 Last Admin: 04/17/20 08:26 Dose: 300 mg Documented by: Amlodipine Besylate (Amlodipine Besylate 5 Mg Tab) 10 mg PO QAM [facility] Stop: 05/15/20 08:59 Last Admin: 04/17/20 08:26 Dose: 10 mg Documented by: Atorvastatin Calcium (Atorvastatin 20 Mg Tab) 20 mg PO QPM [facility] Stop: 05/14/20 21:59 Last Admin: 04/16/20 21:13 Dose: 20 mg Documented by: Bumetanide (Bumetanide 1 Mg Tab) 1 mg PO BID [facility] Stop: 05/14/20 21:59 Last Admin: 04/17/20 08:24 Dose: 1 mg Documented by: Diclofenac Sodium (Diclofenac Sod 1% Gel 100 Gm Tube) 4 gm EXT QID [facility] Stop: 05/14/20 21:59 Last Admin: 04/17/20 08:26 Dose: Not Given Documented by: Doxycycline Hyclate (Doxycycline Hyclate 100 Mg Cap) 100 mg PO BID [facility] Stop: 04/21/20 21:59 Last Admin: 04/17/20 08:25 Dose: 100 mg Documented by: Fluticasone/Vilanterol (Fluticasone/Vilanterol 200/25mcg 14 Puffs/Inhaler) 1 puffs INH DAILY [facility] Stop: 05/15/20 08:59 Last Admin: 04/17/20 08:23 Dose: 1 puffs Documented by: Gabapentin (Gabapentin 600 Mg Tab) 300 mg PO HS [facility] Stop: 05/14/20 21:59 Last Admin: 04/16/20 21:13 Dose: 300 mg Documented by: Heparin Sodium (Porcine) (Heparin Sod 5,000 Unit/0.5 Ml Vial) 5,000 units SQ Q8 [facility] Stop: 05/14/20 21:59 Last Admin: 04/17/20 05:18 Dose: 5,000 units Documented by: Methylprednisolone 40 mg/ (Syringe) 0.64 mls @ 1.5 mls/min IV Q8H [facility] Stop: 05/15/20 03:59 Last Admin: 04/17/20 04:46 Dose: 1.5 mls/min Documented by: Influenza Virus Vaccine (Influenza Vaccine High Dose 65+ 0.5 Ml Syr) 0.5 ml IM .ONCE ONE Stop: 04/17/20 09:01 Ipratropium [place] (Ipratropium [place] Neb Soln 0.02% 2.5 Ml Vial) 0.5 mg INH Q6R [facility] Stop: 05/15/20 00:59 Last Admin: 04/17/20 07:23 Dose: 0.5 mg Documented by: Ipratropium [place] (Ipratropium [place] Neb Soln 0.02% 2.5 Ml Vial) 0.5 mg INH Q2H PRN PRN Reason: Shortness Of Breath Or Wheezing Stop: 05/14/20 21:59 Levalbuterol HCl (Levalbuterol 1.25mg/0.5ml Neb) 1.25 mg INH Q6R [facility] Stop: 05/15/20 00:59 Last Admin: 04/17/20 07:23 Dose: 1.25 mg Documented by: Levalbuterol HCl (Levalbuterol 1.25mg/0.5ml Neb) 1.25 mg INH Q2H PRN PRN Reason: Shortness Of Breath Or Wheezing Stop: 05/14/20 21:59 Levothyroxine Sodium (Levothyroxine Sodium 88 Mcg Tablet) 88 mcg PO DAILYBB [facility] Stop: 05/15/20 06:29 Last Admin: 04/17/20 05:20 Dose: 88 mcg Documented by: Metolazone (Metolazone 2.5 Mg Tablet) 2.5 mg PO MoFr@0800 [facility] Stop: 05/15/20 07:59 Last Admin: 04/15/20 08:02 Dose: 2.5 mg Documented by: Metoprolol Succinate (Metoprolol Succ 50mg Ext Rel Tab) 50 mg PO QAM [facility] Stop: 05/15/20 08:59 Last Admin: 04/17/20 08:25 Dose: 50 mg Documented by: Multivitamins (Multivitamin Tab) 1 tab PO QAM [facility] Stop: 05/15/20 08:59 Last Admin: 04/17/20 08:26 Dose: 1 tab Documented by: Nitroglycerin (Nitroglycerin Sl 0.4 Mg/Tab Tab) 0.4 mg SL UD PRN PRN Reason: Chest Pain Stop: 05/14/20 21:59 Ondansetron HCl (Ondansetron Inj 2 Mg/Ml 2 Ml Vial) 4 mg IV Q6H PRN PRN Reason: Nausea Stop: 05/14/20 21:59 Last Admin: 04/15/20 15:49 Dose: 4 mg Documented by: Potassium Chloride (Potassium Chloride 20 Meq Tabcr) 20 meq PO Q2D@0900 [facility] Stop: 05/15/20 08:59 Last Admin: 04/17/20 08:24 Dose: 20 meq Documented by: Propafenone HCl (Propafenone Hcl 150 Mg Tablet) 150 mg PO Q8H [facility] Stop: 05/14/20 21:59 Last Admin: 04/17/20 05:20 Dose: 150 mg Documented by: Roflumilast (Roflumilast 500 Mcg Tab) 500 mcg PO DAILY [facility] Stop: 05/15/20 08:59 Last Admin: 04/17/20 08:25 Dose: 500 mcg Documented by: Ropinirole HCl (Ropinirole Hcl 0.25 Mg Tablet) 0.25 mg PO HS PRN PRN Reason: restless leg Stop: 05/15/20 20:59 Last Admin: 04/15/20 21:47 Dose: 0.25 mg Documented by: Sertraline HCl (Sertraline Hcl 50 Mg Tablet) 25 mg PO QAM [facility] Stop: 05/15/20 08:59 Last Admin: 04/17/20 08:24 Dose: 25 mg Documented by: Umeclidinium [place] (Umeclidinium [place] 62.5mcg/Blister 7 Puffs/Inhaler) 1 puffs INH DAILY [facility] Stop: 05/15/20 08:59 Last Admin: 04/17/20 08:23 Dose: 1 puffs Documented by: Vitamin D (Cholecalciferol 1,000 Units 25 Mcg Tab) 2,000 units PO QAM [facility] Stop: 05/15/20 08:59 Last Admin: 04/17/20 08:25 Dose: 2,000 units Documented by: (1) Anemia Anemia type: unspecified type Qualified Code(s): D64.9 - Anemia, unspecified (2) CKD (chronic kidney disease) Chronic kidney disease stage: unspecified stage Qualified Code(s): N18.9 - Chronic kidney disease, unspecified
[2020-04-17] MEDS ORDERED: INFLUENZA VACCINE HIGH DOSE 65+ 0.5 ML SYR IM ONE (09:00)
[2020-04-17] MEDS ORDERED: INFLUENZA ADMINISTRATION CHARGE ONE (09:00)
[2020-04-17] MEDS: ACETAMINOPHEN 325 MG TAB PO PRN ×2 (12:37→16:58)
[2020-04-17] MEDS ORDERED: Nursing to Pharmacy Communication SCH (17:45)
[2020-04-17] MEDS: LIDOCAINE 5% 1 PATCH TD SCH (18:03)
[2020-04-17] MEDS ORDERED: TRAMADOL HCL 50 MG TABLET PO PRN (20:11)
[2020-04-17] MEDS: GABAPENTIN 600 MG TAB PO SCH (20:28)
[2020-04-17] MEDS: ATORVASTATIN 20 MG TAB PO SCH (20:29)
[2020-04-17] MEDS ORDERED: FAMOTIDINE 20MG IV PUSH 20 MG/5 ML SYR IV STA (23:59)
[2020-04-18] MEDS: LEVALBUTEROL 1.25MG/0.5ML NEB INH SCH ×3 (00:51→13:12)
[2020-04-18] MEDS: IPRATROPIUM BROMIDE NEB SOLN 0.02% 2.5 ML VIAL INH SCH ×3 (00:51→13:12)
[2020-04-18] MEDS: PROPAFENONE HCL 150 MG TABLET PO SCH ×2 (06:16→14:01)
[2020-04-18] MEDS: LEVOTHYROXINE SODIUM 88 MCG TABLET PO SCH (06:16)
[2020-04-18] MEDS: HEPARIN SOD 5,000 UNIT/0.5 ML VIAL SQ SCH (06:18)
[2020-04-18 06:36] LABS: Hematocrit (blood only) 33.9 % (37-47); Hemoglobin 10.4 g/dL (12.0-16.0); Mean Corpuscular Hgb Conc 30.7 g/dL (32-36); Mean Corpuscular Volume 94.4 fL (80-100); Mean Platelet Volume 9.2 fL (7.4-10.4); Platelet Count 260 K/uL (130-400); RDW Coefficient of Variation 15.2 % (11.5-14.5); RDW Standard Deviation 52.7 fL (36.4-46.3); Red Blood Count 3.59 M/uL (4.2-5.4); White Blood Count 18.19 K/uL (4.8-10.8)
[2020-04-18 07:25] LABS: BUN Creatinine Ratio 44.1 (10-20); Calcium 10.5 mg/dl (8.5-10.1); Creatinine Clr Calc Pharmacy 35.7 ml/min; Est GFR (African American) 34.6; Est GFR (Non-African American) 29.8; Magnesium 2.1 mg/dl (1.8-2.4); Phosphorus 3.5 mg/dl (2.5-4.9); Potassium 3.7 mmol/L (3.5-5.1)
--- NOTE | 2020-04-18 07:48 | Hospitalist Progress Note ---
Date of Service April 18, 2020 Assessment & Plan (1) Acute exacerbation of chronic obstructive pulmonary disease: History of COPD with chronic respiratory failure on oxygen Admitted with increasing shortness of breath and noted to have acute exacerbation No pneumonia on x-ray Has been getting nebulized bronchodilators, intravenous Solu-Medrol and IV antibiotics Will de-escalate antibiotic, We will continue oral doxycycline for now Culture have been negative Intravenous Solu-Medrol can be changed to oral prednisone on discharge PT and OT evaluation -recommend to return home, home health set up by CM Likely discharge today, discussed discharge with patient's daughter Noreen Leukocytosis, WBC ~ 20,000, likely secondary to IV Solu-Medrol, will continue to monitor -Now down to about 18,000 -We will switch to p.o. prednisone -Repeat chest x-ray obtained today, unchanged -Clinically patient is doing quite well, inquiring about going home -Follow blood work recommended by PCP (2) Chronic diastolic CHF (congestive heart failure): No acute exacerbation and no fluid overload (3) PAF (paroxysmal atrial fibrillation): Remains in sinus rhythm for now No acute cardiac symptoms (4) MRSA (methicillin resistant staph aureus) culture positive: History of MRSA with positive culture (5) Morbid obesity: (6) Anemia: Hemoglobin remains stable at 9.8 as of 04/15/20 (7) Chronic respiratory failure with hypoxia: (8) CKD (chronic kidney disease): Will monitor kidney function Creatinine is slightly up at 1.70 Will hold Bumex today, and will advise patient not to use metolazone until seen by primary care doctor She is also advised to weigh herself daily BMP recommended on her follow-up appointment with his PCP Avoidance of NSAIDs also recommended, patient has a chronic shoulder pain, recommend lidocaine and Tylenol DVT prophylaxis Subcu heparin Admission and Anticipated Discharge Date Admission Date: April 14, 2020 Subjective Patient is sitting up in the chair, in no acute distress. She denies any increase of shortness of breath or chest pain, she is inquiring about going home. Review of Systems Review of Systems: All systems reviewed & are unremarkable except as noted in HPI & below All systems reviewed and are unremarkable except as noted below Constitutional: no fever and no chills Respiratory: + cough (improved), + chest congestion (improved) and + dyspnea on exertion (improved) Cardiovascular: no chest pain and no palpitations Gastrointestinal: no abdominal pain, no nausea and no vomiting Physical Exam Physical Exam: Physical Exam: Elderly obese female, sitting in a chair in NAD, on [place] suppl. O2 (4L at baseline) Constitutional: well developed, well nourished, no acute distress, + chronically ill appearing and + obese Eyes: PERRL, EOMI, conjunctivae normal, anicteric sclerae ENMT: external ear and nose normal, oropharynx normal Neck: trachea midline, no thyromegaly Respiratory: no respiratory distress (No distress at rest) and does not use accessory muscles Auscultation: + diminished lung sounds, + mild diffuse rhonchi and no wheezes Cardiovascular: Rate/Rhythm: regular rate and regular rhythm Heart Sounds: no murmur Extremities: + edema (Trace edema bilaterally) Gastrointestinal (Abdomen): Inspection/Auscultation: abdomen normal to insp ection; abdomen not distended Percussion/Palpation: abdomen soft Musculoskeletal: No acute arthritis in any joint Neurologic: Alert and oriented, no facial asymmetry, speech fluent, answers questions appropriately, moves all extremities Psychiatric: A+Ox3, euthymic affect Results & Data Results & Data ([facility]) Vital Signs (Past 12 Hours) Vital Signs Temp Pulse Pulse Resp BP BP Pulse Ox 04/18/20 07:31 80 20 95 04/18/20 07:00 36.7 C 71 20 154/75 H 96 04/18/20 03:00 36.6 C 67 20 168/72 H 97 04/17/20 23:00 36.8 C 69 20 162/72 H 04/17/20 22:20 69 04/17/20 19:50 36.5 C 75 18 167/64 H 93 Laboratory Results 04/18/20 04/18/20 04/17/20 Range/Units 06:20 06:20 07:16 WBC 18.19 H (4.8-10.8) K/uL RBC 3.59 L (4.2-5.4) M/uL Hgb 10.4 L (12.0-16.0) g/dL Hct 33.9 L (37-47) % MCV 94.4 (80-100) fL MCH 29.0 (25-34) pg MCHC 30.7 L (32-36) g/dL RDW Std Deviation 52.7 H (36.4-46.3) fL RDW Coeff of Arabella 15.2 H (11.5-14.5) % Plt Count 260 (130-400) K/uL MPV 9.2 (7.4-10.4) fL Sodium 136 138 (136-145) mmol/L Potassium 3.7 3.9 (3.5-5.1) mmol/L Chloride 91 L 92 L (98-107) mmol/L Carbon Dioxide 42 H* 44 H* (21-32) mmol/L Anion Gap 4.0 2.0 L (3-11) BUN 75 H 68 H (7-18) mg/dl Creatinine 1.70 H 1.65 H (0.6-1.2) mg/dl Est Cr Clr Drug Dosing 35.7 36.6 ml/min Est GFR ( Amer) 34.6 35.8 Est GFR (Non-Af Amer) 29.8 30.9 BUN/Creatinine Ratio 44.1 H 41.5 H (10-20) Glucose 127 H 129 H (70-99) mg/dl Calcium 10.5 H 10.3 H (8.5-10.1) mg/dl Phosphorus 3.5 3.2 (2.5-4.9) mg/dl Magnesium 2.1 1.9 (1.8-2.4) mg/dl Medications Administered Current Inpatient Medications Acetaminophen (Acetaminophen 325 Mg Tab) 650 mg PO Q4H PRN PRN Reason: Pain or Fever Stop: 05/14/20 21:59 Last Admin: 04/17/20 16:58 Dose: 650 mg Documented by: Allopurinol (Allopurinol 300 Mg Tab) 300 mg PO QAM [facility] Stop: 05/15/20 08:59 Last Admin: 04/17/20 08:26 Dose: 300 mg Documented by: Amlodipine Besylate (Amlodipine Besylate 5 Mg Tab) 10 mg PO QAM [facility] Stop: 05/15/20 08:59 Last Admin: 04/17/20 08:26 Dose: 10 mg Documented by: Atorvastatin Calcium (Atorvastatin 20 Mg Tab) 20 mg PO QPM [facility] Stop: 05/14/20 21:59 Last Admin: 04/17/20 20:29 Dose: 20 mg Documented by: Bumetanide (Bumetanide 1 Mg Tab) 1 mg PO BID [facility] Stop: 05/14/20 21:59 Last Admin: 10/07/20 20:30 Dose: 1 mg Documented by: Diclofenac Sodium (Diclofenac Sod 1% Gel 100 Gm Tube) 4 gm EXT QID [facility] Stop: 05/14/20 21:59 Last Admin: 04/17/20 20:34 Dose: Not Given Documented by: Doxycycline Hyclate (Doxycycline Hyclate 100 Mg Cap) 100 mg PO BID [facility] Stop: 04/21/20 21:59 Last Admin: 04/17/20 20:27 Dose: 100 mg Documented by: Fluticasone/Vilanterol (Fluticasone/Vilanterol 200/25mcg 14 Puffs/Inhaler) 1 puffs INH DAILY [facility] Stop: 05/15/20 08:59 Last Admin: 04/17/20 08:23 Dose: 1 puffs Documented by: Gabapentin (Gabapentin 600 Mg Tab) 300 mg PO HS [facility] Stop: 05/14/20 21:59 Last Admin: 04/17/20 20:28 Dose: 300 mg Documented by: Guaifenesin (Guaifenesin 600 Mg Tabcr) 600 mg PO Q12 [facility] Stop: 05/18/20 08:59 Heparin Sodium (Porcine) (Heparin Sod 5,000 Unit/0.5 Ml Vial) 5,000 units SQ Q8 [facility] Stop: 05/14/20 21:59 Last Admin: 04/18/20 06:18 Dose: 5,000 units Documented by: Ipratropium [place] (Ipratropium [place] Neb Soln 0.02% 2.5 Ml Vial) 0.5 mg INH Q6R [facility] Stop: 05/15/20 00:59 Last Admin: 04/18/20 07:28 Dose: 0.5 mg Documented by: Ipratropium [place] (Ipratropium [place] Neb Soln 0.02% 2.5 Ml Vial) 0.5 mg INH Q2H PRN PRN Reason: Shortness Of Breath Or Wheezing Stop: 05/14/20 21:59 Levalbuterol HCl (Levalbuterol 1.25mg/0.5ml Neb) 1.25 mg INH Q6R [facility] Stop: 05/15/20 00:59 Last Admin: 04/18/20 07:28 Dose: 1.25 mg Documented by: Levalbuterol HCl (Levalbuterol 1.25mg/0.5ml Neb) 1.25 mg INH Q2H PRN PRN Reason: Shortness Of Breath Or Wheezing Stop: 05/14/20 21:59 Levothyroxine Sodium (Levothyroxine Sodium 88 Mcg Tablet) 88 mcg PO DAILYBB [facility] Stop: 05/15/20 06:29 Last Admin: 04/18/20 06:16 Dose: 88 mcg Documented by: Lidocaine (Lidocaine 5% 1 Patch) 1 patch TD [facility] Stop: 05/17/20 17:59 Last Admin: 04/17/20 18:03 Dose: 1 patch Documented by: Metolazone (Metolazone 2.5 Mg Tablet) 2.5 mg PO MoFr@0800 [facility] Stop: 05/15/20 07:59 Last Admin: 04/15/20 08:02 Dose: 2.5 mg Documented by: Metoprolol Succinate (Metoprolol Succ 50mg Ext Rel Tab) 50 mg PO [facility] Stop: 05/15/20 08:59 Last Admin: 04/17/20 08:25 Dose: 50 mg Documented by: Miscellaneous (Remove Lidoderm Patch) 1 ea N/A DAILY@2100 [facility] Stop: 05/18/20 03:59 Last Admin: 04/18/20 06:16 Dose: 1 ea Documented by: Multivitamins (Multivitamin Tab) 1 tab PO [facility] Stop: 05/15/20 08:59 Last Admin: 04/17/20 08:26 Dose: 1 tab Documented by: Nitroglycerin (Nitroglycerin Sl 0.4 Mg/Tab Tab) 0.4 mg SL UD PRN PRN Reason: Chest Pain Stop: 05/14/20 21:59 Ondansetron HCl (Ondansetron Inj 2 Mg/Ml 2 Ml Vial) 4 mg IV Q6H PRN PRN Reason: Nausea Stop: 05/14/20 21:59 Last Admin: 04/15/20 15:49 Dose: 4 mg Documented by: Potassium Chloride (Potassium Chloride 20 Meq Tabcr) 20 meq PO Q2D@0900 [facility] Stop: 05/15/20 08:59 Last Admin: 04/17/20 08:24 Dose: 20 meq Documented by: Prednisone (Prednisone 20 Mg Tab) 40 mg PO [facility] Stop: 05/18/20 08:59 Propafenone HCl (Propafenone Hcl 150 Mg Tablet) 150 mg PO Q8H [facility] Stop: 05/14/20 21:59 Last Admin: 04/18/20 06:16 Dose: 150 mg Documented by: Roflumilast (Roflumilast 500 Mcg Tab) 500 mcg PO DAILY [facility] Stop: 05/15/20 08:59 Last Admin: 04/17/20 08:25 Dose: 500 mcg Documented by: Ropinirole HCl (Ropinirole Hcl 0.25 Mg Tablet) 0.25 mg PO HS PRN PRN Reason: restless leg Stop: 05/15/20 20:59 Last Admin: 04/15/20 21:47 Dose: 0.25 mg Documented by: Sertraline HCl (Sertraline Hcl 50 Mg Tablet) 25 mg PO QAM [facility] Stop: 05/15/20 08:59 Last Admin: 04/17/20 08:24 Dose: 25 mg Documented by: Tramadol HCl (Tramadol Hcl 50 Mg Tablet) 25 mg PO Q4H PRN PRN Reason: Pain Stop: 05/17/20 20:10 Last Admin: 04/17/20 20:23 Dose: 25 mg Documented by: Umeclidinium [place] (Umeclidinium [place] 62.5mcg/Blister 7 Puffs/Inhaler) 1 puffs INH DAILY [facility] Stop: 05/15/20 08:59 Last Admin: 04/17/20 08:23 Dose: 1 puffs Documented by: Vitamin D (Cholecalciferol 1,000 Units 25 Mcg Tab) 2,000 units PO QAM [facility] Stop: 05/15/20 08:59 Last Admin: 04/17/20 08:25 Dose: 2,000 units Documented by: (1) Anemia Anemia type: unspecified type Qualified Code(s): D64.9 - Anemia, unspecified (2) CKD (chronic kidney disease) Chronic kidney disease stage: unspecified stage Qualified Code(s): N18.9 - Chronic kidney disease, unspecified
--- NOTE | 2020-04-18 08:24 | XRay Report ---
XR chest 1V portable HISTORY: 69 years-old Female follow up cxr follow-up study in a patient with shortness of breath COMPARISON: Chest radiograph 04/14/2020 TECHNIQUE: Portable AP view of the chest FINDINGS: Cardiac silhouette is enlarged, unchanged. Chronic interstitial coarsening. Mild blunting of the cost ophrenic angles. Chronic left lung base opacities. No pneumothorax or overt pulmonary edema. Degenera tive changes of the spine and left shoulder. Right shoulder arthroplasty. Kyphoplasty changes of the midthoracic spine. IMPRESSION: 1. Cardiomegaly with chronic interstitial coarsening. 2. Blunting of the costophrenic angles suggests trace effusions versus atelectasis. 3. Chronic left lung base opacities suggest fibrosis/atelectasis. ACT 112: Negative or not required by law. The above report was generated using voice recognition software. It may contain grammatical, syntax o r spelling errors. Electronically signed by: Ariel Shah M.D. 04/18/2020 8:23 AM
[2020-04-18] MEDS: FLUTICASONE/VILANTEROL 200/25MCG 14 PUFFS/INHALER INH SCH (08:30)
[2020-04-18] MEDS: LIDOCAINE 5% 1 PATCH TD SCH (08:30)
[2020-04-18] MEDS: DICLOFENAC SOD 1% GEL 100 GM TUBE EXT SCH ×2 (08:30→12:22)
[2020-04-18] MEDS: UMECLIDINIUM BROMIDE 62.5MCG/BLISTER 7 PUFFS/INHALER INH SCH (08:30)
[2020-04-18] MEDS: MULTIVITAMIN TAB PO SCH (08:31)
[2020-04-18] MEDS: ROFLUMILAST 500 MCG TAB PO SCH (08:31)
[2020-04-18] MEDS: CHOLECALCIFEROL 1,000 UNITS 25 MCG TAB PO SCH (08:32)
[2020-04-18] MEDS: allopurinoL 300 MG TAB PO SCH (08:32)
[2020-04-18] MEDS: DOXYCYCLINE HYCLATE 100 MG CAP PO SCH (08:32)
[2020-04-18] MEDS: AMLODIPINE BESYLATE 5 MG TAB PO SCH (08:32)
[2020-04-18] MEDS: METOPROLOL SUCC 50MG EXT REL TAB PO SCH (08:32)
[2020-04-18] MEDS: SERTRALINE HCL 50 MG TABLET PO SCH (08:33)
[2020-04-18] MEDS ORDERED: predniSONE 20 MG TAB PO SCH (09:00)
[2020-04-18] MEDS ORDERED: guaiFENesin 600 MG TABCR PO SCH (09:00)
--- NOTE | 2020-04-18 12:09 | Discharge Summary ---
Date of Service April 18, 2020 Admission HPI Per Admitting Provider A 69-year-old female with past medical history significant for severe COPD, chronic respiratory failure on 4 liters oxygen all the time, hyperlipidemia, hypothyroidism, history of chronic kidney disease stage 3, hypertension, right-sided heart failure, morbid obesity, GERD, iron deficiency anemia, depression with anxiety, spinal stenosis, who presents with shortness of breath. The patient lives with her daughter. She ambulates with the help of walker. She says since 2 days she is feeling more short of breath having cough and bringing up yellowish phlegm. Denies any fevers, chills. She says she gets sometimes runny nose. She had some sore throat earlier in the morning, but that is resolved now. She was nauseous earlier that is resolved now. She has some diarrhea. Has headaches, no blurred vision, no earaches. Right now feeling hungry and wants to eat. Denies any chest pain. Currently, no nausea, no abdominal pain. Normal bladder movements. No rash seen. Currently resting comfortably and able to speak in full sentences. No fevers. Admission Exam Per Admitting Provider GENERAL: The patient is obese, currently not in acute distress. VITAL SIGNS: Temperature 36.8, pulse 69, respiratory rate 18, blood pressure 100/81, oxygen 93% on 4 liters. HEENT: Pupils equal, round, reactive to light. Oral mucosa moist. NECK: No JVD, no neck masses seen. CARDIOVASCULAR: S1, S2 heard, regular rate and rhythm, no murmur, no gallop. RESPIRATORY SYSTEM: Normal AP diameter. No accessory muscle use. Bilateral rhonchi heard, no crackles. ABDOMEN: Soft, bowel sounds present, nontender. No distention. CENTRAL NERVOUS SYSTEM: Cranial nerves II-XII grossly intact, nonfocal. EXTREMITIES: Bilateral lower extremity +1 pedal edema present, no erythema seen. Principal Diagnosis Acute COPD exacerbation Chronic diastolic CHF Discharge Exam Physical Exam: Elderly obese female, sitting in a chair in [facility], on [place] suppl. O2 (4L at baseline) Constitutional: well developed, well nourished, no acute distress, + chronically ill appearing and + obese Eyes: PERRL, EOMI, conjunctivae normal, anicteric sclerae ENMT: external ear and nose normal, oropharynx normal Neck: trachea midline, no thyromegaly Respiratory: no respiratory distress (No distress at rest) and does not use accessory muscles Auscultation: + diminished lung sounds, + mild diffuse rhonchi and no wheezes Cardiovascular: Rate/Rhythm: regular rate and regular rhythm Heart Sounds: no murmur Extremities: + edema (Trace edema bilaterally) Gastrointestinal (Abdomen): Inspection/Auscultation: abdomen normal to inspection; abdomen not distended Percussion/Palpation: abdomen soft Musculoskeletal: No acute arthritis in any joint Neurologic: Alert and oriented, no facial asymmetry, speech fluent, answers questions appropriately, moves all extremities Psychiatric: A+Ox3, euthymic affect Discharge Data Allergies Allergy/AdvReac Type Severity Reaction Status Date / Time adhesive Allergy Severe RED RASH Verified 12/02/19 15:26 latex AdvReac Mild TAPE-SORE Verified 12/02/19 15:26 morphine AdvReac Mild DELUSIONS Verified 12/02/19 15:26 Consultations 04/14/20 20:16 ED Decision to Admit Stat 04/14/20 22:00 Consult Case Management - Discharge Planning Routine Hospital Course (1) Acute exacerbation of chronic obstructive pulmonary disease: History of COPD with chronic respiratory failure on oxygen Admitted with increasing shortness of breath and noted to have acute exacerbation No pneumonia on x-ray Has been getting nebulized bronchodilators, intravenous Solu-Medrol and IV antibiotics Will de-escalate antibiotic, We will continue oral doxycycline for now Culture have been negative Intravenous Solu-Medrol can be changed to oral prednisone on discharge PT and OT evaluation -recommend to return home, home health set up by CM Likely discharge today, discussed discharge with patient's daughter Noreen Leukocytosis, WBC ~ 20,000, likely secondary to IV Solu-Medrol, will continue to monitor -Now down to about 18,000 -We will switch to p.o. prednisone -Repeat chest x-ray obtained today, unchanged -Clinically patient is doing quite well, inquiring about going home -Follow blood work recommended by PCP (2) Chronic diastolic CHF (congestive heart failure): No acute exacerbation and no fluid overload (3) PAF (paroxysmal atrial fibrillation): Remains in sinus rhythm for now No acute cardiac symptoms (4) MRSA (methicillin resistant staph aureus) culture positive: History of MRSA with positive culture (5) Morbid obesity: (6) Anemia: Hemoglobin remains stable at 9.8 as of 04/15/20 (7) Chronic respiratory failure with hypoxia: (8) CKD (chronic kidney disease): Will monitor kidney function Creatinine is slightly up at 1.70 Will hold Bumex today, and will advise patient not to use metolazone until seen by primary care doctor She is also advised to weigh herself daily BMP recommended on her follow-up appointment with his PCP Avoidance of NSAIDs also recommended, patient has a chronic shoulder pain, recommend lidocaine and Tylenol Total Time Total Time Spent Total Time Spent (In Minutes): 40 Total Time Includes: Examination of the Patient, Discharge Planning and Medication Reconciliation Discharge Plan Discharge Items Patient Disposition: Home - Home Health Services Reason For Visit: SOB Discharge Diagnosis: Acute COPD exacerbation Chronic diastolic CHF Activity: Per Instructions section Non-emergency contact: Primary Care Provider Call non-emergency contact if: you have any medication questions and your symptoms worsen Follow-up/Referrals: Babak Melendez MD [Primary Care Provider] - (Date & Time 04/25/2020 2:20 PM Provider Babak Melendez MD Department [facility] ) Diet: Heart Healthy Addtl Attending Provider Instructions: Follow-up with your primary care doctor on April 25, as already scheduled for you. Take prednisone and doxycycline for next 5 days as prescribed. Make sure to use your CPAP machine at home. Recommend to obtain blood work, BMP, and CBC at your primary care doctor's appointment. You may need to follow-up with your lung doctor as well. For your shoulder pain, recommend lidocaine patch, you can obtain these [id number], often under the name Salonpas. Also you can take Tylenol up to 3000 mg a day. Do not take any ibuprofen, Motrin, or other NSAID as these may negatively affect your kidney function. Do not take metolazone until you see your primary care doctor and obtain your blood work. Recommend to weigh yourself daily and record these numbers, have these numbers checked by your primary care doctor when you see them. Recommend to bring this paperwork with you to your upcoming follow-up appointment with your primary care physician. Pending Studies at Discharge: No Stand-Alone Forms: [employer], Smoking Cessation Medications and DC Order Prescriptions: New doxycycline hyclate 100 mg Capsule 100 mg PO BID 5 Days Qty: 10 RF: 0 prednisone 20 mg Tablet 40 mg PO QAM 5 Days Qty: 10 RF: 0 guaifenesin [Mucinex] 600 mg Tablet Extended Release 12hr 600 mg PO Q12 5 Days Qty: 10 RF: 0 lidocaine 5 % Adhesive Patch,Medicated 1 patch transdermal QAM 15 Days Qty: 15 RF: 0 acetaminophen 325 mg Tablet 650 mg PO Q4H PRN (Reason: pain) Qty: 10 RF: 0 Continued Breo Ellipta 200-25 mcg/dose Blister With Device 1 inh INHALATION DAILY RF: 0 multivitamin Tablet 1 tab PO QAM RF: 0 propafenone 150 mg Tablet 150 mg PO Q8H RF: 0 gabapentin 600 mg Tablet 300 mg PO HS RF: 0 atorvastatin 20 mg Tablet 20 mg PO QPM RF: 0 metoprolol succinate 50 mg Tablet Extended Release 24 Hr 50 mg PO QAM RF: 0 levothyroxine 88 mcg Tablet 88 mcg PO DAILYBB RF: 0 sertraline [Zoloft] 25 mg Tablet 25 mg PO QAM RF: 0 allopurinol 300 mg Tablet 300 mg PO QAM RF: 0 cholecalciferol (vitamin D3) [Vitamin D3] 2,000 unit Tablet 2,000 unit PO QAM RF: 0 Daliresp 500 mcg Tablet 500 mcg PO DAILY RF: 0 albuterol sulfate 2.5 mg /3 mL (0.083 %) Solution For Nebulization 2.5 mg INHALATION Q6 PRN (Reason: Shortness Of Breath Or Wheezing) RF: 0 Spiriva with HandiHaler 18 mcg capsule, w/inhalation device 1 cap INH DAILY Qty: 30 RF: 3 potassium chloride [Klor-Con M20] 20 mEq tablet,ER particles/crystals 20 meq PO Q OTHER DAY RF: 0 amlodipine [Norvasc] 5 mg Tablet 10 mg PO QAM Qty: 30 RF: 1 bumetanide 1 mg tablet 1 mg PO BID RF: 0 Discontinued diclofenac sodium [Voltaren] 1 % gel 4 g EXT QID RF: 0 metolazone 2.5 mg tablet 2.5 mg PO MOFR RF: 0 doxycycline hyclate 100 mg Capsule 100 mg PO BID Qty: 10 RF: 0 Discharge Orders: Discharge Order (Routine); Ordered 04/18/20 Ordered By: Bryant Silva Admission Data Admit Date/Time: 04/14/20 21:01 Attending Provider: Bryant Silva Admit Provider: Manjit Frias Primary Care Provider: Babak Melendez Other Providers: Manjit Frias ; Ruth Thomas
[2020-04-18] MEDS ORDERED: GABAPENTIN 300 MG CAP PO SCH (21:00)
== END 2020-04-18 14:30 | disposition home health service (06) | DRG 191 ==
LOC: ED 17:03 → 2W 21:01 → SUATTDRO 21:01 → 2W 21:42

== ENCOUNTER 2020-06-17 09:10 | Inpatient (IN) ==
[2020-06-17] MEDS ORDERED: ACETAMINOPHEN 1,000 MG/100 ML VIAL IV STA (09:47)
[2020-06-17] MEDS ORDERED: DEXAMETHASONE SOD INJ 10 MG/ML VIAL IV ONE ×2 (09:47→13:54)
[2020-06-17] MEDS ORDERED: ALBUTEROL HFA 8 GM INHALER INH ONE (09:47)
--- NOTE | 2020-06-17 10:16 | XRay Report ---
XR chest 1V portable CLINICAL HISTORY: Atypical chest pain COMPARISON STUDY: 04/18/2020 FINDINGS: The heart is borderline enlarged. There is interstitial thickening, similar to the prior st udy. There is no lobar consolidation. There are postprocedural changes of a prior vertebroplasty. The re is a right shoulder arthroplasty.[ IMPRESSION: 1. Borderline cardiomegaly with stable interstitial thickening 2. No evidence of acute lobar consolidation ACT 112: Negative or not required by law. Electronically signed by: Fox Garcia M.D. 06/17/2020 10:15 AM
[2020-06-17 10:37] LABS: Basophils # (auto) 0.02 K/uL (0-0.2); Basophils % (auto) 0.2 %; Eosinophils # (auto) 0.25 K/uL (0-0.5); Eosinophils % (auto) 2.3 %; Hematocrit (blood only) 30.6 % (37-47); Immature Granulocytes % (auto) 0.9 %; Lymphocytes # (auto) 1.17 K/uL (1.2-3.4); Lymphocytes % (auto) 10.7 %; Mean Corpuscular Hemoglobin 28.6 pg (25-34); Mean Corpuscular Hgb Conc 29.4 g/dL (32-36); Mean Corpuscular Volume 97.1 fL (80-100); Mean Platelet Volume 9.3 fL (7.4-10.4); Monocytes # (auto) 1.26 K/uL (0.11-0.59); Monocytes % (auto) 11.5 %; Neutrophils # (auto) 8.11 K/uL (1.4-6.5); Neutrophils % (auto) 74.4 %; Platelet Count 257 K/uL (130-400); RDW Coefficient of Variation 15.7 % (11.5-14.5); RDW Standard Deviation 54.7 fL (36.4-46.3); Red Blood Count 3.15 M/uL (4.2-5.4); White Blood Count 10.91 K/uL (4.8-10.8)
[2020-06-17 10:47] LABS: INR 1.1 (0.9-1.1); Partial Thromboplastin Ratio 0.9; Prothrombin Time 11.7 Seconds (9.0-12.0)
[2020-06-17 10:59] LABS: Alanine Aminotransferase 7 U/L (12-78); Albumin Globulin Ratio 0.5 (0.9-2); Albumin Level 2.5 gm/dl (3.4-5.0); Alkaline Phosphatase 72 U/L (45-117); Aspartate Aminotransferase 12 U/L (15-37); BUN Creatinine Ratio 23.5 (10-20); Bilirubin,Total 0.3 mg/dl (0.2-1); Blood Urea Nitrogen 36 mg/dl (7-18); Calcium 10.5 mg/dl (8.5-10.1); Carbon Dioxide 41 mmol/L (21-32); Chloride 89 mmol/L (98-107); Creatine Kinase 14 U/L (26-192); Creatine Kinase MB < 1.0 ng/ml (0.5-3.6); Creatinine Clr Calc Pharmacy 37.6 ml/min; Est GFR (African American) 38.9; Est GFR (Non-African American) 33.6; Globulin 5.4 gm/dl (2.5-4.0); Glucose 108 mg/dl (70-99); Lipase 89 U/L (73-393); NT Pro B Type Natriuretic Pept 554 pg/ml (0-900); Potassium 3.8 mmol/L (3.5-5.1); Sodium 137 mmol/L (136-145); Total Protein 7.9 gm/dl (6.4-8.2); Troponin I < 0.015 ng/ml (0-0.045)
[2020-06-17] MEDS ORDERED: methylPREDNISolone 125 MG/2 ML VIAL IV STA (11:00)
[2020-06-17] MEDS ORDERED: AZITHROMYCIN 250 MG TAB PO ONE ×2 (11:00→18:26)
[2020-06-17] MEDS ORDERED: ONDANSETRON INJ 2 MG/ML 2 ML VIAL IV STA (11:14)
[2020-06-17] MEDS ORDERED: HYDROmorphone INJ 0.5 MG/0.5 ML SYR IV PRN (11:14)
[2020-06-17] MEDS ORDERED: MAGNESIUM SULFATE / D5W 1 GM/100 ML BAG IV STA (11:17)
--- NOTE | 2020-06-17 12:01 | Electrocardiogram Report ---
Test Reason : Blood Pressure : / mmHG Vent. Rate : 084 BPM Atrial Rate : 084 BPM P-R Int : 176 ms QRS Dur : 108 ms QT Int : 372 ms P-R-T Axes : 033 056 065 degrees QTc Int : 439 ms Normal sinus rhythm Normal ECG When compared with ECG of 14-APR-2020 17:14, No significant change was found Confirmed by Charlie Amanda ([id number]) on 06/17/2020 12:01:05 PM Referred By: REFERRED SELF Confirmed By:Charlie Amanda
[2020-06-17 12:58] LABS: D Dimer 950 ug/L FEU (0-500)
--- NOTE | 2020-06-17 12:59 | History & Physical Report ---
Date of Service June 17, 2020 Assessment & Plan (1) COVID-19: (2) Shortness of breath: (3) Chronic respiratory failure with hypoxia: (4) Hypercapnia: Pt with chronic res. failure with hypoxia on 4L at baseline d/t COPD and asthma She is currently in ED on 4L but with ambulation desatting to 80s Pt feels short of breath and tachypneic productive yellow sputum, fever, chills, at home, nausea Received dexamethasone, albuterol and azithromycin in ED Ddimer in 900s, CRP, ESR elevated procalcitonin- pending no LE edema, low suspicion for DVT/PE, Ddimer elevation likely 2/2 age and COVID 19 infection, will place on lovenox for DVT ppx CXR without any sign. opacity Continue D-dimer 6mg IV daily, start PPI while on steroid Cont. Azithromycin for now Consented for convalescent plasma - will administer when available, monitor fluid status given hx of chronic diastolic CHF Hx of CKD stage III, will hold of from remdesivir for now will start thiamine to try to prevent encephalopathy associated with covid 19, currently pt is alert and oriented and answering questions appropriately but she is in increased risk given her complex med. hx and current clinical status (5) Chronic diastolic CHF (congestive heart failure): Currently does not appear in acute HF, no fluid overload, proBNP normal, trop. negative no chest pain CXR shows some chronic interstitial thickening cont. home bumex and cont. to closely monitor fluid status (6) Anemia: Hx of anemia, d/t CKD/ chronic disease Hgb 9.0, cont. to monitor FOBT ordered no signs of bleeding (7) Hypothyroidism: cont. home levothyroxine (8) CKD (chronic kidney disease), stage III: Cr at baseline cont. to monitor, try to avoid NSAIDs, nephrotoxic agents (9) Morbid obesity: BMI above 35 Hx of obesity hypoventulation syndrome DVT ppx: Lovenox Code: DNR/DNI - this was discussed with the pt on admission History of Present Illness Chief Complaint: Shortness of breath, COVID19+ Primary Care Provider: Babak Melendez MD Pt is a 69 y/o F with complex medical hx including chronic resp. failure with hypoxia (4L of O2 at baseline), d/t asthma and COPD, obesity hypoventilation syndrome, diastolic CHF, hypothyroidism, hx of frequent admissions d/t COPD exacerbations, who now presents with shortness of breath and found to be positive with COVID 19 infection. Pt reports that she experienced worsening shortness of breath this morning. She has been feeling unwell for the past several days, about 4 days ago she had diarrhea, nausea and vomiting. She still has nausea on and off. She reports cough with yellow sputum production. Fevers low grade at home on and off. Pt reports that her home medications did not make her feel much better so presented to ED. Her granddaughter was diagnosed with COVID 19 infection and per pt she was very sick, unfortunately pt was in contact with her. Currently pt denies any abd. pain, any LE edema or abdominal edema/ tightness. CXR in ED did not show any opacity, but chronic interstitial thickening. pro BNP normal. In the ED she has been requiring 4L of O2 but with ambulation she would desat to 80s. She feels unwell and reports some mild improvement with ED treatment with decadron, azithro, albuterol. Allergies Allergy/AdvReac Type Severity Reaction Status Date / Time adhesive Allergy Severe RED RASH Verified 12/02/19 15:26 latex AdvReac Mild TAPE-SORE Verified 12/02/19 15:26 morphine AdvReac Mild DELUSIONS Verified 12/02/19 15:26 Home Medications Medication Instructions Recorded Confirmed Type Breo Ellipta 1 inh INHALATION DAILY 03/12/18 06/17/20 History Daliresp 500 mcg PO DAILY 03/12/18 06/17/20 History allopurinol 300 mg PO QAM 03/12/18 06/17/20 History atorvastatin 20 mg PO QPM 03/12/18 06/17/20 History cholecalciferol (vitamin D3) 2,000 unit PO QAM 03/12/18 06/17/20 History [Vitamin D3] gabapentin 300 mg PO HS 03/12/18 06/17/20 History levothyroxine 88 mcg PO DAILYBB 03/12/18 06/17/20 History metoprolol succinate 50 mg PO QAM 03/12/18 06/17/20 History multivitamin 1 tab PO QAM 03/12/18 06/17/20 History propafenone 150 mg PO Q8H 03/12/18 06/17/20 History sertraline [Zoloft] 25 mg PO QAM 03/12/18 06/17/20 History albuterol sulfate 2.5 mg INHALATION Q6 PRN 08/07/18 06/17/20 History Spiriva with HandiHaler 1 cap INH DAILY #30 puffs 08/03/19 06/17/20 Rx potassium chloride [Klor-Con M20] 20 meq PO Q OTHER DAY 09/27/19 06/17/20 History amlodipine [Norvasc] 10 mg PO QAM #30 tab 10/03/19 06/17/20 Rx bumetanide 1 mg PO BID 12/02/19 06/17/20 History acetaminophen 650 mg PO Q4H PRN #10 tab 04/18/20 06/17/20 Rx Past Med/Surg History Medical History (Updated 06/17/20 @ 14:00 by Bryant Silva MD) Asthma Chronic respiratory failure with hypoxia CKD (chronic kidney disease), stage III COPD (chronic obstructive pulmonary disease) Depression Dyslipidemia GERD (gastroesophageal reflux disease) Hypothyroidism EVONNE (iron deficiency anemia) Lumbar spinal stenosis Morbid obesity Obesity hypoventilation syndrome Surgical History History of appendectomy 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 Hx of cholecystectomy S/P cervical spinal fusion S/P wrist surgery Family History Father Trauma Mother Diabetes Cerebral aneurysm Daughter Bipolar 1 disorder Social History Smoking Status: Former smoker Cigarettes Per Day: quit 30 years ago; Second Hand Exposure: No; Hx Alcohol Use: No Hx Substance Use: No Preferred Language: [place] Communication Ability: Effective 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 Beliefs That Will Affect Care: None marital status: Current Living Situation: Family Current Living Situation Comment: lives with daughter How many Children do You have: 1 Feels Safe at Home: Yes Assistive Devices: Nebulizer and Oxygen - Continuous Review of Systems Review of Systems: All systems reviewed & are unremarkable except as noted in HPI & below Constitutional: + fever, + chills and + fatigue Eyes: no problem reported Ear, Nose, Mouth, Throat: no problem reported Respiratory: + cough (productive) and + dyspnea Cardiovascular: no chest pain, no palpitations, no edema and no problem reported Gastrointestinal: + nausea; no abdominal pain, no vomiting and no diarrhea/loose stools Genitourinary: no dysuria Musculoskeletal: no problem reported Integumentary: no problem reported Neurologic: no problem reported Psychiatric: no problem reported Endocrine: no problem reported Hematologic / Lymphatic: no problem reported Allergy / Immunological: no problem reported Physical Exam Constitutional: WD/WN, vitals as above + ill appearing; no acute distress Eyes: PERRL, conjunctivae normal, anicteric sclerae ENMT: external ear and nose normal, oropharynx normal Neck: normal visual inspection thick neck Respiratory: normal respiratory effort and + cough; no retractions and does not use accessory muscles Auscultation: + rhonchi (diffuse); no crackles and no wheezes Cardiovascular: RRR, no murmur, no edema Chest (Breasts): Chest: normal inspection of chest Gastrointestinal (Abdomen): normal bowel sounds, soft, nontender, no hepatosplenomegaly Musculoskeletal: no cyanosis or clubbing, extremities motor strength 5/5 Head/Neck/Chest: normocephalic and head atraumatic Skin: no rashes, warm and dry Neurologic: PERRL, EOMI, accommodation nl, no face palsy, no dysarthria Psychiatric: A+Ox3, euthymic affect Genitourinary: no CVA tenderness Lymphatic: no lymphedema Results & Data Results & Data ([facility]) Vital Signs (Past 12 Hours) Vital Signs Temp Pulse Resp BP Pulse Ox 06/17/20 09:29 37.2 C 86 21 136/59 L 97 06/17/20 09:25 76 22 06/17/20 09:15 76 22 Laboratory Results 06/17/20 06/17/20 06/17/20 Range/Units 13:14 12:53 10:01 WBC (4.8-10.8) K/uL RBC (4.2-5.4) M/uL Hgb (12.0-16.0) g/dL Hct (37-47) % MCV (80-100) fL MCH (25-34) pg MCHC (32-36) g/dL RDW Std Deviation (36.4-46.3) fL RDW Coeff of Arabella (11.5-14.5) % Plt Count (130-400) K/uL MPV (7.4-10.4) fL Immature Gran % (Auto) % Neut % (Auto) % Lymph % (Auto) % Mcdonough % (Auto) % Eos % (Auto) % Baso % (Auto) % Neut # (Auto) (1.4-6.5) K/uL Lymph # (Auto) (1.2-3.4) K/uL Mcdonough # (Auto) (0.11-0.59) K/uL Eos # (Auto) (0-0.5) K/uL Baso # (Auto) (0-0.2) K/uL Immature Gran # (Auto) (0.00-0.02) K/uL ESR (0-21) mm/hr PT (9.0-12.0) Seconds INR (0.9-1.1) APTT (21.0-31.0) Seconds PTT Ratio D-Dimer (0-500) ug/L FEU VBG pH 7.36 (7.36-7.41) VBG pCO2 74 H (38-50) mmHg VBG pO2 62 mmHg VBG HCO3 41 mmol/L VBG O2 Saturation 88.0 % VBG Base Excess 13.3 mEq/L Barometric Pressure 728.8 mm/Hg Sodium (136-145) mmol/L Potassium (3.5-5.1) mmol/L Chloride (98-107) mmol/L Carbon Dioxide (21-32) mmol/L Anion Gap (3-11) BUN (7-18) mg/dl Creatinine (0.6-1.2) mg/dl Est Cr Clr Drug Dosing ml/min Est GFR ( Amer) Est GFR (Non-Af Amer) BUN/Creatinine Ratio (10-20) Glucose (70-99) mg/dl Calcium (8.5-10.1) mg/dl Total Bilirubin (0.2-1) mg/dl AST (15-37) U/L ALT (12-78) U/L Alkaline Phosphatase (45-117) U/L Total Creatine Kinase (26-192) U/L CK-MB (CK-2) (0.5-3.6) ng/ml CK/CKMB % Calc Troponin I (0-0.045) ng/ml C-Reactive Protein 9.50 H (0-0.29) mg/dl NT-Pro-B Natriuret Pep (0-900) pg/ml Total Protein (6.4-8.2) gm/dl Albumin (3.4-5.0) gm/dl Globulin (2.5-4.0) gm/dl Albumin/Globulin Ratio (0.9-2) Lipase (73-393) U/L COVID-19 Eval Order SARS-CoV-2, RNA, NAAT (NEGATIVE) Blood Type Pending Antibody Screen Pending 06/17/20 06/17/20 06/17/20 Range/Units 10:01 10:01 10:01 WBC (4.8-10.8) K/uL RBC (4.2-5.4) M/uL Hgb (12.0-16.0) g/dL Hct (37-47) % MCV (80-100) fL MCH (25-34) pg MCHC (32-36) g/dL RDW Std Deviation (36.4-46.3) fL RDW Coeff of Arabella (11.5-14.5) % Plt Count (130-400) K/uL MPV (7.4-10.4) fL Immature Gran % (Auto) % Neut % (Auto) % Lymph % (Auto) % Mcdonough % (Auto) % Eos % (Auto) % Baso % (Auto) % Neut # (Auto) (1.4-6.5) K/uL Lymph # (Auto) (1.2-3.4) K/uL Mcdonough # (Auto) (0.11-0.59) K/uL Eos # (Auto) (0-0.5) K/uL Baso # (Auto) (0-0.2) K/uL Immature Gran # (Auto) (0.00-0.02) K/uL ESR 74 H (0-21) mm/hr PT (9.0-12.0) Seconds INR (0.9-1.1) APTT (21.0-31.0) Seconds PTT Ratio D-Dimer 950 H* (0-500) ug/L FEU VBG pH (7.36-7.41) VBG pCO2 (38-50) mmHg VBG pO2 mmHg VBG HCO3 mmol/L VBG O2 Saturation % VBG Base Excess mEq/L Barometric Pressure mm/Hg Sodium (136-145) mmol/L Potassium (3.5-5.1) mmol/L Chloride (98-107) mmol/L Carbon Dioxide (21-32) mmol/L Anion Gap (3-11) BUN (7-18) mg/dl Creatinine (0.6-1.2) mg/dl Est Cr Clr Drug Dosing ml/min Est GFR ( Amer) Est GFR (Non-Af Amer) BUN/Creatinine Ratio (10-20) Glucose (70-99) mg/dl Calcium (8.5-10.1) mg/dl Total Bilirubin (0.2-1) mg/dl AST (15-37) U/L ALT (12-78) U/L Alkaline Phosphatase (45-117) U/L Total Creatine Kinase (26-192) U/L CK-MB (CK-2) (0.5-3.6) ng/ml CK/CKMB % Calc Troponin I (0-0.045) ng/ml C-Reactive Protein (0-0.29) mg/dl NT-Pro-B Natriuret Pep (0-900) pg/ml Total Protein (6.4-8.2) gm/dl Albumin (3.4-5.0) gm/dl Globulin (2.5-4.0) gm/dl Albumin/Globulin Ratio (0.9-2) Lipase (73-393) U/L COVID-19 Eval Order SARS-CoV-2, RNA, NAAT POSITIVE A* (NEGATIVE) Blood Type Antibody Screen 06/17/20 06/17/20 06/17/20 Range/Units 10:01 10:01 10:01 WBC 10.91 H (4.8-10.8) K/uL RBC 3.15 L (4.2-5.4) M/uL Hgb 9.0 L (12.0-16.0) g/dL Hct 30.6 L (37-47) % MCV 97.1 (80-100) fL MCH 28.6 (25-34) pg MCHC 29.4 L (32-36) g/dL RDW Std Deviation 54.7 H (36.4-46.3) fL RDW Coeff of Arabella 15.7 H (11.5-14.5) % Plt Count 257 (130-400) K/uL MPV 9.3 (7.4-10.4) fL Immature Gran % (Auto) 0.9 % Neut % (Auto) 74.4 % Lymph % (Auto) 10.7 % Mcdonough % (Auto) 11.5 % Eos % (Auto) 2.3 % Baso % (Auto) 0.2 % Neut # (Auto) 8.11 H (1.4-6.5) K/uL Lymph # (Auto) 1.17 L (1.2-3.4) K/uL Mcdonough # (Auto) 1.26 H (0.11-0.59) K/uL Eos # (Auto) 0.25 (0-0.5) K/uL Baso # (Auto) 0.02 (0-0.2) K/uL Immature Gran # (Auto) 0.10 H (0.00-0.02) K/uL ESR (0-21) mm/hr PT 11.7 (9.0-12.0) Seconds INR 1.1 (0.9-1.1) APTT 24.0 (21.0-31.0) Seconds PTT Ratio 0.9 D-Dimer (0-500) ug/L FEU VBG pH (7.36-7.41) VBG pCO2 (38-50) mmHg VBG pO2 mmHg VBG HCO3 mmol/L VBG O2 Saturation % VBG Base Excess mEq/L Barometric Pressure mm/Hg Sodium (136-145) mmol/L Potassium (3.5-5.1) mmol/L Chloride (98-107) mmol/L Carbon Dioxide (21-32) mmol/L Anion Gap (3-11) BUN (7-18) mg/dl Creatinine (0.6-1.2) mg/dl Est Cr Clr Drug Dosing ml/min Est GFR ( Amer) Est GFR (Non-Af Amer) BUN/Creatinine Ratio (10-20) Glucose (70-99) mg/dl Calcium (8.5-10.1) mg/dl Total Bilirubin (0.2-1) mg/dl AST (15-37) U/L ALT (12-78) U/L Alkaline Phosphatase (45-117) U/L Total Creatine Kinase (26-192) U/L CK-MB (CK-2) (0.5-3.6) ng/ml CK/CKMB % Calc Troponin I (0-0.045) ng/ml C-Reactive Protein (0-0.29) mg/dl NT-Pro-B Natriuret Pep (0-900) pg/ml Total Protein (6.4-8.2) gm/dl Albumin (3.4-5.0) gm/dl Globulin (2.5-4.0) gm/dl Albumin/Globulin Ratio (0.9-2) Lipase (73-393) U/L COVID-19 Eval [email or web address] SARS-[facility]-2, RNA, NAAT (NEGATIVE) Blood Type Antibody Screen 06/17/20 Range/Units 10:01 WBC (4.8-10.8) K/uL RBC (4.2-5.4) M/uL Hgb (12.0-16.0) g/dL Hct (37-47) % MCV (80-100) fL MCH (25-34) pg MCHC (32-36) g/dL RDW Std Deviation (36.4-46.3) fL RDW Coeff of Arabella (11.5-14.5) % Plt Count (130-400) K/uL MPV (7.4-10.4) fL Immature Gran % (Auto) % Neut % (Auto) % Lymph % (Auto) % Mcdonough % (Auto) % Eos % (Auto) % Baso % (Auto) % Neut # (Auto) (1.4-6.5) K/uL Lymph # (Auto) (1.2-3.4) K/uL Mcdonough # (Auto) (0.11-0.59) K/uL Eos # (Auto) (0-0.5) K/uL Baso # (Auto) (0-0.2) K/uL Immature Gran # (Auto) (0.00-0.02) K/uL ESR (0-21) mm/hr PT (9.0-12.0) Seconds INR (0.9-1.1) APTT (21.0-31.0) Seconds PTT Ratio D-Dimer (0-500) ug/L FEU VBG pH (7.36-7.41) VBG pCO2 (38-50) mmHg VBG pO2 mmHg VBG HCO3 mmol/L VBG O2 Saturation % VBG Base Excess mEq/L Barometric Pressure mm/Hg Sodium 137 (136-145) mmol/L Potassium 3.8 (3.5-5.1) mmol/L Chloride 89 L (98-107) mmol/L Carbon Dioxide 41 H* (21-32) mmol/L Anion Gap 7.0 (3-11) BUN 36 H (7-18) mg/dl Creatinine 1.54 H (0.6-1.2) mg/dl Est Cr Clr Drug Dosing 37.6 ml/min Est GFR ( Amer) 38.9 Est GFR (Non-Af Amer) 33.6 BUN/Creatinine Ratio 23.5 H (10-20) Glucose 108 H (70-99) mg/dl Calcium 10.5 H (8.5-10.1) mg/dl Total Bilirubin 0.3 (0.2-1) mg/dl AST 12 L (15-37) U/L ALT 7 L (12-78) U/L Alkaline Phosphatase 72 (45-117) U/L Total Creatine Kinase 14 L (26-192) U/L CK-MB (CK-2) < 1.0 (0.5-3.6) ng/ml CK/CKMB % Calc TNP Troponin I < 0.015 (0-0.045) ng/ml C-Reactive Protein (0-0.29) mg/dl NT-Pro-B Natriuret Pep 554 (0-900) pg/ml Total Protein 7.9 (6.4-8.2) gm/dl Albumin 2.5 L (3.4-5.0) gm/dl Globulin 5.4 H (2.5-4.0) gm/dl Albumin/Globulin Ratio 0.5 L (0.9-2) Lipase 89 (73-393) U/L COVID-19 Eval Order SARS-CoV-2, RNA, NAAT (NEGATIVE) Blood Type Antibody Screen Diagnostic Findings CXR IMPRESSION: 1. Borderline cardiomegaly with stable interstitial thickening 2. No evidence of acute lobar consolidation Code Status & VTE Plan VTE Prophylaxis Plan VTE Prophylaxis will be ordered: Yes (1) Anemia Anemia type: unspecified type Qualified Code(s): D64.9 - Anemia, unspecified
[2020-06-17 13:31] LABS: Base Excess VBG 13.3 mEq/L; pH VBG 7.36 (7.36-7.41)
[2020-06-17] MEDS ORDERED: ACETAMINOPHEN 325 MG TAB PO SCH (13:53)
--- NOTE | 2020-06-17 15:47 | Emergency Department Note ---
History of Present Illness General Chief complaint: Shortness of Breath/Dyspnea Time Seen by Provider: 06/17/20 09:13 Source: patient, EMS, RN notes reviewed and old records reviewed Mode of arrival: EMS Limitations: no limitations History of Present Illness Provider complaint: Shortness of breath Onset (ago): day(s) 1 Location: chest Severity: moderate Pain Consistency: + intermittent Maximum Pain Intensity: 7 Current Pain Intensity: 7 Relieved By: + immobilization Exacerbated By: + movement Associated symptoms: + cough, + fever/chills, + loss of appetite, + nausea/vomiting, + shortness of breath and + weakness; no chest pain and no headaches Treatments prior to arrival: none This 69-year-old female who has a history of COPD who presents to the emergency department complaining of increased oxygen use. Patient reports she is on 4 L of oxygen at home however over the past 24 hours has become acutely short of breath. Patient lives at home with her granddaughter who became concerned that the patient has increasing weakness. Patient reports exertion makes her shortness of breath worse however immobilization makes it better. She has been taking her inhalers at home. Home Medications Medication Instructions Recorded Confirmed Type Breo Ellipta 1 inh INHALATION DAILY 03/12/18 06/17/20 History Daliresp 500 mcg PO DAILY 03/12/18 06/17/20 History allopurinol 300 mg PO QAM 03/12/18 06/17/20 History atorvastatin 20 mg PO QPM 03/12/18 06/17/20 History cholecalciferol (vitamin D3) 2,000 unit PO QAM 03/12/18 06/17/20 History [Vitamin D3] gabapentin 300 mg PO HS 03/12/18 06/17/20 History levothyroxine 88 mcg PO DAILYBB 03/12/18 06/17/20 History metoprolol succinate 50 mg PO QAM 03/12/18 06/17/20 History multivitamin 1 tab PO QAM 03/12/18 06/17/20 History propafenone 150 mg PO Q8H 03/12/18 06/17/20 History sertraline [Zoloft] 25 mg PO QAM 03/12/18 06/17/20 History albuterol sulfate 2.5 mg INHALATION Q6 PRN 08/07/18 06/17/20 History Spiriva with HandiHaler 1 cap INH DAILY #30 puffs 08/03/19 06/17/20 Rx potassium chloride [Klor-Con M20] 20 meq PO Q OTHER DAY 09/27/19 06/17/20 History amlodipine [Norvasc] 10 mg PO QAM #30 tab 10/03/19 06/17/20 Rx bumetanide 1 mg PO BID 12/02/19 06/17/20 History acetaminophen 650 mg PO Q4H PRN #10 tab 04/18/20 06/17/20 Rx Allergies Allergy/AdvReac Type Severity Reaction Status Date / Time adhesive Allergy Severe RED RASH Verified 12/02/19 15:26 latex AdvReac Mild TAPE-SORE Verified 12/02/19 15:26 morphine AdvReac Mild DELUSIONS Verified 12/02/19 15:26 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 Hx of cholecystectomy S/P cervical spinal fusion S/P wrist surgery Family History Father Trauma Mother Diabetes Cerebral aneurysm Daughter Bipolar 1 disorder Social History Smoking Status: Former smoker Cigarettes Per Day: quit 30 years ago; Smoking End Date: 12 yesrs ago; Second Hand Exposure: No; Hx Alcohol Use: No Hx Substance Use: No Preferred Language: Kazakh Communication Ability: Effective Insurance Assistant Required: No Beliefs That Will Affect Care: None marital status: Current Living Situation: Family Current Living Situation Comment: daughter, grandson, great grandson, grandaughters How many Children do You have: 1 Other Information That Helps Us Care for You: No Feels Safe at Home: Yes Safety Concerns: Feels Safe At This Time Assistive Devices: Glasses, Oxygen - Continuous and Walker Review of Systems A total of 10 systems reviewed and were otherwise negative Physical Exam Vital Signs Vital Signs - 24 hr 06/17/20 09:15 06/17/20 09:17 06/17/20 09:25 Temperature Temperature Source Pulse Rate 85 86 76 Pulse Rate from SpO2 Sensor 85 84 Pulse Rhythm Regular Pulse Strength Respiratory Rate 22 23 22 Respiratory Effort / Characteristics Respiratory Depth Respiratory Pattern Blood Pressure 136/59 L Blood Pressure Mean 86 Blood Pressure Position Pulse Oximetry 94 95 Oxygen Delivery Method Nasal Cannula Nasal Cannula Oxygen Flow Rate 4 4 Sepsis Recent Fever Within 48 Hours Sepsis New/Unexplained Change in Mental Status Sepsis Action Taken by Nursing 06/17/20 09:29 06/17/20 09:30 06/17/20 10:00 Temperature 37.2 C Temperature Source Oral Pulse Rate 86 81 79 Pulse Rate from SpO2 Sensor 81 79 Pulse Rhythm Regular Pulse Strength Normal Respiratory Rate 21 25 H 18 Respiratory Effort / Characteristics SOB on Exertion Respiratory Depth Normal Respiratory Pattern Regular Blood Pressure 136/59 L Blood Pressure Mean 84 Blood Pressure Position Lying Pulse Oximetry 97 93 97 Oxygen Delivery Method Nasal Cannula Oxygen Flow Rate 4 Sepsis Recent Fever Within 48 Hours No Sepsis New/Unexplained Change in Mental Status No Sepsis Action Taken by Nursing No Action Required 06/17/20 10:30 06/17/20 11:00 06/17/20 11:30 Temperature Temperature Source Pulse Rate 81 79 82 Pulse Rate from SpO2 Sensor 81 79 82 Pulse Rhythm Pulse Strength Respiratory Rate 22 26 H 21 Respiratory Effort / Characteristics Respiratory Depth Respiratory Pattern Blood Pressure Blood Pressure Mean Blood Pressure Position Pulse Oximetry 95 93 94 Oxygen Delivery Method Oxygen Flow Rate Sepsis Recent Fever Within 48 Hours Sepsis New/Unexplained Change in Mental Status Sepsis Action Taken by Nursing 06/17/20 12:00 06/17/20 12:30 06/17/20 12:33 Temperature Temperature Source Pulse Rate 80 80 81 Pulse Rate from SpO2 Sensor 80 80 81 Pulse Rhythm Pulse Strength Respiratory Rate 21 20 19 Respiratory Effort / Characteristics Respiratory Depth Respiratory Pattern Blood Pressure 146/64 H Blood Pressure Mean 93 Blood Pressure Position Pulse Oximetry 98 88 L 87 L Oxygen Delivery Method Oxygen Flow Rate Sepsis Recent Fever Within 48 Hours Sepsis New/Unexplained Change in Mental Status Sepsis Action Taken by Nursing 06/17/20 13:00 06/17/20 13:30 06/17/20 14:00 Temperature Temperature Source Pulse Rate 79 75 80 Pulse Rate from SpO2 Sensor 81 76 80 Pulse Rhythm Pulse Strength Respiratory Rate 19 17 17 Respiratory Effort / Characteristics Respiratory Depth Respiratory Pattern Blood Pressure Blood Pressure Mean Blood Pressure Position Pulse Oximetry 89 L 90 93 Oxygen Delivery Method Oxygen Flow Rate Sepsis Recent Fever Within 48 Hours Sepsis New/Unexplained Change in Mental Status Sepsis Action Taken by Nursing 06/17/20 14:30 Temperature Temperature Source Pulse Rate 78 Pulse Rate from SpO2 Sensor 78 Pulse Rhythm Pulse Strength Respiratory Rate 20 Respiratory Effort / Characteristics Respiratory Depth Respiratory Pattern Blood Pressure Blood Pressure Mean Blood Pressure Position Pulse Oximetry 96 Oxygen Delivery Method Nasal Cannula Oxygen Flow Rate 4 Sepsis Recent Fever Within 48 Hours Sepsis New/Unexplained Change in Mental Status Sepsis Action Taken by Nursing VITAL SIGNS - Vital signs and nursing notes were reviewed. GENERAL - 69-year-old female appearing stated age who is in no acute distress. Communicates well with provider and answers questions appropriately. SKIN - Without rashes. HEAD - NC/AT. EYES - PERRL with EOMI bilaterally. Sclera anicteric. Palpebral conjunctiva pink and moist with no injection noted. EARS - No deformities of external structures noted on gross examination bilaterally. No pain elicited with palpation of the tragus bilaterally. External auditory canals without discharge or otorrhea. Tympanic membranes pearly john without retraction or bulging. No fluid or purulent material visualized behind the TM. Handle of malleus, umbo, cone of light, pars tensa/flaccid all easily visualized. NOSE - Midline and without cyanosis. No epistaxis or purulent drainage noted. Septum midline without deviation or septal hematoma noted. MOUTH/OROPHARYNX - Without perioral cyanosis. Buccal mucosa pink and moist and without leukoplakia. Tongue midline with equal elevation of palate bilaterally. No tonsillar hypertrophy, erythema, or exudates noted. dentition noted. NECK - Neck with FROM. Supple to palpation. lymphadenopathy noted. No nuchal rigidity. LUNGS - wheezes throughout all lung valdez CARDIAC - RRR with S1/S2. No murmur, rubs, or gallops appreciated. ABDOMEN - Abdominal contour without pulsations or visible masses. BS normoactive all four quadrants. No tenderness, palpable masses, hepatos plenomegaly, or ascites noted. EXTREMITIES - No clubbing or peripheral cyanosis. No pretibial edema present. +3/5 radial, posterior tibial, and dorsalis pedis pulses palpated throughout. +5/5 strength noted in UE/LE bilaterally. NEUROLOGIC - Cranial nerves II through XII grossly intact. Sensory intact to light touch throughout. Patellar reflexes +2/4. PSYCH - A&Ox3 and cooperates fully with examiner. Pt is very pleasant and interacts well with examiner. Course Administered Medications Acetaminophen (Acetaminophen 325 Mg Tab) 650 mg PO Q4H PRN PRN Reason: pain Stop: 07/17/20 18:25 Last Admin: 06/17/20 20:29 Dose: 650 mg Documented by: [id number] Hydrocodone Bitart/Acetaminophen (Hydrocodone/Acetamophen 5/325mg Tab) 1 tab PO Q6H PRN PRN Reason: Pain Stop: 07/02/20 16:55 Last Admin: 06/18/20 17:58 Dose: 1 tab Documented by: [id number] Allopurinol (Allopurinol 300 Mg Tab) 300 mg PO QAM [facility] Stop: 07/18/20 08:59 Last Admin: 06/18/20 09:32 Dose: 300 mg Documented by: [id number] Amlodipine Besylate (Amlodipine Besylate 5 Mg Tab) 10 mg PO QAM [facility] Stop: 07/18/20 00:44 Last Admin: 06/18/20 01:10 Dose: 10 mg Documented by: [id number] Atorvastatin Calcium (Atorvastatin 20 Mg Tab) 20 mg PO QPM [facility] Stop: 07/17/20 20:59 Last Admin: 06/18/20 20:41 Dose: 20 mg Documented by: [id number] Admin: 06/17/20 21:19 Dose: 20 mg Documented by: [id number] Bumetanide (Bumetanide 1 Mg Tab) 1 mg PO [id number] [facility] Stop: 07/17/20 18:44 Last Admin: 06/18/20 17:50 Dose: 1 mg Documented by: [id number] Admin: 06/18/20 09:32 Dose: 1 mg Documented by: [id number] Admin: 06/17/20 21:20 Dose: 1 mg Documented by: [id number] Doxycycline Hyclate (Doxycycline Hyclate 100 Mg Cap) 100 mg PO BID [facility] Stop: 06/25/20 08:59 Last Admin: 06/18/20 20:39 Dose: 100 mg Documented by: [id number] Admin: 06/18/20 09:35 Dose: 100 mg Documented by: [id number] Enoxaparin Sodium (Enoxaparin Inj 40 Mg/0.4 Ml Syr) 40 mg SQ Q12H [facility] Stop: 07/17/20 19:59 Last Admin: 06/18/20 20:38 Dose: 40 mg Documented by: [id number] Admin: 06/18/20 09:37 Dose: 40 mg Documented by: [id number] Admin: 06/17/20 21:19 Dose: 40 mg Documented by: [id number] Fluticasone/Vilanterol (Fluticasone/Vilanterol 200/25mcg 14 Puffs/Inhaler) 1 puffs INH DAILY [facility] Stop: 07/18/20 08:59 Last Admin: 06/18/20 09:36 Dose: 1 puffs Documented by: [id number] Furosemide (Furosemide 40 Mg/4 Ml Vial) 20 mg IV ONE PRN PRN Reason: plasma transfusion Stop: 07/17/20 18:25 Last Admin: 06/18/20 00:30 Dose: 20 mg Documented by: [id number] Gabapentin (Gabapentin 300 Mg Cap) 300 mg PO HS [facility] Stop: 07/17/20 20:59 Last Admin: 06/18/20 20:40 Dose: 300 mg Documented by: [id number] Admin: 06/17/20 21:22 Dose: 300 mg Documented by: [id number] Dexamethasone Sodium Phosphate (6 mg/ Syringe) 1.5 mls @ 1 mls/min IV QAM [facility] Stop: 06/26/20 09:02 Last Admin: 06/18/20 09:31 Dose: 1 mls/min Documented by: [id number] Thiamine HCl 100 mg/ Syringe 10 mls @ 2 mls/min IV BID [facility] Stop: 07/17/20 20:59 Last Admin: 06/18/20 20:51 Dose: 2 mls/min Documented by: [id number] Admin: 06/18/20 09:37 Dose: 2 mls/min Documented by: [id number] Admin: 06/17/20 21:18 Dose: 2 mls/min Documented by: [id number] Remdesivir 100 mg/ Sodium (Chloride) 250 mls @ 250 mls/hr IV Q24H [facility]; Protocol Stop: 06/21/20 20:59 Last Infusion: 06/18/20 21:37 Dose: 0 mls/hr Documented by: [id number] Admin: 06/18/20 20:37 Dose: 250 mls/hr Documented by: [id number] Levothyroxine Sodium (Levothyroxine Sodium 88 Mcg Tablet) 88 mcg PO DAILYBB [facility] Stop: 07/18/20 06:29 Last Admin: 06/19/20 06:03 Dose: 88 mcg Documented by: [id number] Admin: 06/18/20 05:41 Dose: 88 mcg Documented by: [id number] Metoprolol Succinate (Metoprolol Succ 50mg Ext Rel Tab) 50 mg PO [facility] Stop: 07/18/20 08:59 Last Admin: 06/18/20 09:35 Dose: 50 mg Documented by: [id number] Multivitamins (Multivitamin Tab) 1 tab PO [facility] Stop: 07/18/20 08:59 Last Admin: 06/18/20 09:34 Dose: 1 tab Documented by: [id number] Pantoprazole Sodium (Pantoprazole 40 Mg Tab) 40 mg PO [facility] Stop: 07/17/20 18:29 Last Admin: 06/18/20 09:32 Dose: 40 mg Documented by: [id number] Admin: 06/17/20 21:21 Dose: 40 mg Documented by: [id number] Propafenone HCl (Propafenone Hcl 150 Mg Tablet) 150 mg PO Q8 [facility] Stop: 07/18/20 05:59 Last Admin: 06/19/20 06:03 Dose: 150 mg Documented by: [id number] Admin: 06/18/20 22:02 Dose: 150 mg Documented by: [id number] Admin: 06/18/20 14:27 Dose: 150 mg Documented by: [id number] Admin: 06/18/20 05:41 Dose: 150 mg Documented by: [id number] Roflumilast (Roflumilast 500 Mcg Tab) 500 mcg PO DAILY [facility] Stop: 07/18/20 08:59 Last Admin: 06/18/20 09:33 Dose: 500 mcg Documented by: [id number] Sertraline HCl (Sertraline Hcl 50 Mg Tablet) 25 mg PO [facility] Stop: 07/18/20 08:59 Last Admin: 06/18/20 09:33 Dose: 25 mg Documented by: [id number] Sodium Chloride (Sodium Chloride 0.9% 10ml Flush) 30 ml IV Q24H [facility] Stop: 06/21/20 20:01 Last Admin: 06/18/20 22:02 Dose: 30 ml Documented by: [id number] Admin: 06/17/20 23:39 Dose: 30 ml Documented by: [id number] Tramadol HCl (Tramadol Hcl 50 Mg Tablet) 50 mg PO Q4H PRN PRN Reason: Pain Stop: 07/18/20 14:51 Last Admin: 06/18/20 20:50 Dose: 50 mg Documented by: [id number] Admin: 06/18/20 15:09 Dose: 50 mg Documented by: [id number] Umeclidinium Ada (Umeclidinium Ada 62.5mcg/Blister 7 Puffs/Inhaler) 1 puffs INH DAILY [facility] Stop: 07/18/20 08:59 Last Admin: 06/18/20 09:36 Dose: 1 puffs Documented by: [id number] Vitamin D (Cholecalciferol 1,000 Units 25 Mcg Tab) 2,000 units PO QAM [facility] Stop: 07/18/20 08:59 Last Admin: 06/18/20 09:34 Dose: 2,000 units Documented by: [id number] Discontinued Medications Acetaminophen (Acetaminophen 325 Mg Tab) 650 mg PO PRE-TREAT [facility] Stop: 06/18/20 02:00 Last Admin: 06/17/20 22:36 Dose: 650 mg Documented by: [id number] Albuterol (Albuterol Hfa 8 Gm Inhaler) 2 puffs INH NOW ONE Stop: 06/17/20 09:48 Last Admin: 06/17/20 11:22 Dose: 2 puffs Documented by: [id number] Azithromycin (Azithromycin 250 Mg Tab) 500 mg PO NOW ONE Stop: 06/17/20 11:01 Last Admin: 06/17/20 12:04 Dose: 500 mg Documented by: [id number] Dexamethasone (Dexamethasone Sod Inj 10 Mg/Ml Vial) 6 mg IV NOW ONE Stop: 06/17/20 09:48 Last Admin: 06/17/20 11:20 Dose: 6 mg Documented by: [id number] Hydromorphone HCl (Hydromorphone Inj 0.5 Mg/0.5 Ml Syr) 0.5 mg IV Q15M PRN PRN Reason: Pain Stop: 07/01/20 11:13 Last Admin: 06/17/20 12:05 Dose: 0.5 mg Documented by: [id number] Acetaminophen (Ofirmev) 1,000 mg in 100 mls @ 400 mls/hr IV NOW STA Stop: 06/17/20 10:01 Last Infusion: 06/17/20 15:41 Dose: 0 mls/hr Documented by: [id number] Admin: 06/17/20 11:21 Dose: 400 mls/hr Documented by: [id number] Magnesium Sulfate/Dextrose (Magnesium Sulfate / D5w) 1 gm in 100 mls @ 100 mls/hr IV NOW STA Stop: 06/17/20 12:16 Last Infusion: 06/17/20 15:41 Dose: 0 mls/hr Documented by: [id number] Admin: 06/17/20 12:11 Dose: 100 mls/hr Documented by: [id number] Remdesivir 200 mg/ Sodium (Chloride) 250 mls @ 125 mls/hr IV ONE ONE; Protocol Stop: 06/17/20 22:20 Last Infusion: 06/17/20 23:39 Dose: 0 mls/hr Documented by: [id number] Admin: 06/17/20 21:10 Dose: 125 mls/hr Documented by: [id number] Methylprednisolone (Methylprednisolone 125 Mg/2 Ml Vial) 125 mg IV NOW STA Stop: 06/17/20 11:01 Last Admin: 06/17/20 12:12 Dose: 125 mg Documented by: [id number] Ondansetron HCl (Ondansetron Inj 2 Mg/Ml 2 Ml Vial) 4 mg IV NOW STA Stop: 06/17/20 11:15 Last Admin: 06/17/20 12:12 Dose: 4 mg Documented by: [id number] Propafenone HCl (Propafenone Hcl 150 Mg Tablet) 150 mg PO Q8 [facility] Stop: 07/17/20 18:29 Last Admin: 06/17/20 21:20 Dose: 150 mg Documented by: [id number] Critical Care Time I have personally spent greater than 30 minutes of critical care time in the direct management of this patient. This includes bedside care, interpretation of diagnostic studies, and testing, discussion with consultants, patient, and family members, and other required patient management activities. This 30 minutes is in excess of all separately billable procedures. Medical Decision Making Differential Diagnosis Reactive airway disease, pneumonia, pneumothorax, COPD, CHF, infections, cardiac ischemia, pulmonary embolism, musculoskeletal, gastrointestinal, as well as other pathologies. Medical Records Attestation: I reviewed the patient's medical records. Home Medications Current Medication List: was personally reviewed by me Laboratory Data Attestation: I reviewed the patient's lab results. Result diagrams: 06/19/20 06:06 06/19/20 06:06 Lab Results 06/17/20 06/17/20 06/17/20 Range/Units 10:01 10:01 10:01 WBC 10.91 H (4.8-10.8) K/uL RBC 3.15 L (4.2-5.4) M/uL Hgb 9.0 L (12.0-16.0) g/dL Hct 30.6 L (37-47) % MCV 97.1 (80-100) fL MCH 28.6 (25-34) pg MCHC 29.4 L (32-36) g/dL RDW Std Deviation 54.7 H (36.4-46.3) fL RDW Coeff of Arabella 15.7 H (11.5-14.5) % Plt Count 257 (130-400) K/uL MPV 9.3 (7.4-10.4) fL Immature Gran % (Auto) 0.9 % Neut % (Auto) 74.4 % Lymph % (Auto) 10.7 % Elbert % (Auto) 11.5 % Eos % (Auto) 2.3 % Baso % (Auto) 0.2 % Neut # (Auto) 8.11 H (1.4-6.5) K/uL Lymph # (Auto) 1.17 L (1.2-3.4) K/uL Elbert # (Auto) 1.26 H (0.11-0.59) K/uL Eos # (Auto) 0.25 (0-0.5) K/uL Baso # (Auto) 0.02 (0-0.2) K/uL Immature Gran # (Auto) 0.10 H (0.00-0.02) K/uL ESR (0-21) mm/hr PT 11.7 (9.0-12.0) Seconds INR 1.1 (0.9-1.1) APTT 24.0 (21.0-31.0) Seconds PTT Ratio 0.9 D-Dimer (0-500) ug/L FEU Sodium 137 (136-145) mmol/L Potassium 3.8 (3.5-5.1) mmol/L Chloride 89 L (98-107) mmol/L Carbon Dioxide 41 H* (21-32) mmol/L Anion Gap 7.0 (3-11) BUN 36 H (7-18) mg/dl Creatinine 1.54 H (0.6-1.2) mg/dl Est Cr Clr Drug Dosing 37.6 ml/min Est GFR ( Amer) 38.9 Est GFR (Non-Af Amer) 33.6 BUN/Creatinine Ratio 23.5 H (10-20) Glucose 108 H (70-99) mg/dl Calcium 10.5 H (8.5-10.1) mg/dl Total Bilirubin 0.3 (0.2-1) mg/dl AST 12 L (15-37) U/L ALT 7 L (12-78) U/L Alkaline Phosphatase 72 (45-117) U/L Total Creatine Kinase 14 L (26-192) U/L CK-MB (CK-2) < 1.0 (0.5-3.6) ng/ml CK/CKMB % Calc TNP Troponin I < 0.015 (0-0.045) ng/ml C-Reactive Protein (0-0.29) mg/dl NT-Pro-B Natriuret Pep 554 (0-900) pg/ml Total Protein 7.9 (6.4-8.2) gm/dl Albumin 2.5 L (3.4-5.0) gm/dl Globulin 5.4 H (2.5-4.0) gm/dl Albumin/Globulin Ratio 0.5 L (0.9-2) Lipase 89 (73-393) U/L Procalcitonin (0-0.5) ng/ml COVID-19 Eval Order Hepatitis C Ab Screen (Neg) SARS-CoV-2, RNA, NAAT (NEGATIVE) 06/17/20 06/17/20 06/17/20 Range/Units 10:01 10:01 10:01 WBC (4.8-10.8) K/uL RBC (4.2-5.4) M/uL Hgb (12.0-16.0) g/dL Hct (37-47) % MCV (80-100) fL MCH (25-34) pg MCHC (32-36) g/dL RDW Std Deviation (36.4-46.3) fL RDW Coeff of Arabella (11.5-14.5) % Plt Count (130-400) K/uL MPV (7.4-10.4) fL Immature Gran % (Auto) % Neut % (Auto) % Lymph % (Auto) % Elbert % (Auto) % Eos % (Auto) % Baso % (Auto) % Neut # (Auto) (1.4-6.5) K/uL Lymph # (Auto) (1.2-3.4) K/uL Elbert # (Auto) (0.11-0.59) K/uL Eos # (Auto) (0-0.5) K/uL Baso # (Auto) (0-0.2) K/uL Immature Gran # (Auto) (0.00-0.02) K/uL ESR 74 H (0-21) mm/hr PT (9.0-12.0) Seconds INR (0.9-1.1) APTT (21.0-31.0) Seconds PTT Ratio D-Dimer (0-500) ug/L FEU Sodium (136-145) mmol/L Potassium (3.5-5.1) mmol/L Chloride (98-107) mmol/L Carbon Dioxide (21-32) mmol/L Anion Gap (3-11) BUN (7-18) mg/dl Creatinine (0.6-1.2) mg/dl Est Cr Clr Drug Dosing ml/min Est GFR ( Amer) Est GFR (Non-Af Amer) BUN/Creatinine Ratio (10-20) Glucose (70-99) mg/dl Calcium (8.5-10.1) mg/dl Total Bilirubin (0.2-1) mg/dl AST (15-37) U/L ALT (12-78) U/L Alkaline Phosphatase (45-117) U/L Total Creatine Kinase (26-192) U/L CK-MB (CK-2) (0.5-3.6) ng/ml CK/CKMB % Calc Troponin I (0-0.045) ng/ml C-Reactive Protein (0-0.29) mg/dl NT-Pro-B Natriuret Pep (0-900) pg/ml Total Protein (6.4-8.2) gm/dl Albumin (3.4-5.0) gm/dl Globulin (2.5-4.0) gm/dl Albumin/Globulin Ratio (0.9-2) Lipase (73-393) U/L Procalcitonin (0-0.5) ng/ml COVID[facility]19 [email or web address] Screen (Neg) SARS-CoV-2, RNA, NAAT POSITIVE A* (NEGATIVE) 06/17/20 06/17/20 06/17/20 Range/Units 10:01 10:01 10:02 WBC (4.8-10.8) K/uL RBC (4.2-5.4) M/uL Hgb (12.0-16.0) g/dL Hct (37-47) % MCV (80-100) fL MCH (25-34) pg MCHC (32-36) g/dL RDW Std Deviation (36.4-46.3) fL RDW Coeff of Arabella (11.5-14.5) % Plt Count (130-400) K/uL MPV (7.4-10.4) fL Immature Gran % (Auto) % Neut % (Auto) % Lymph % (Auto) % Elbert % (Auto) % Eos % (Auto) % Baso % (Auto) % Neut # (Auto) (1.4-6.5) K/uL Lymph # (Auto) (1.2-3.4) K/uL Elbert # (Auto) (0.11-0.59) K/uL Eos # (Auto) (0-0.5) K/uL Baso # (Auto) (0-0.2) K/uL Immature Gran # (Auto) (0.00-0.02) K/uL ESR (0-21) mm/hr PT (9.0-12.0) Seconds INR (0.9-1.1) APTT (21.0-31.0) Seconds PTT Ratio D-Dimer 950 H* (0-500) ug/L FEU Sodium (136-145) mmol/L Potassium (3.5-5.1) mmol/L Chloride (98-107) mmol/L Carbon Dioxide (21-32) mmol/L Anion Gap (3-11) BUN (7-18) mg/dl Creatinine (0.6-1.2) mg/dl Est Cr Clr Drug Dosing ml/min Est GFR ( Amer) Est GFR (Non-Af Amer) BUN/Creatinine Ratio (10-20) Glucose (70-99) mg/dl Calcium (8.5-10.1) mg/dl Total Bilirubin (0.2-1) mg/dl AST (15-37) U/L ALT (12-78) U/L Alkaline Phosphatase (45-117) U/L Total Creatine Kinase (26-192) U/L CK-MB (CK-2) (0.5-3.6) ng/ml CK/CKMB % Calc Troponin I (0-0.045) ng/ml C-Reactive Protein 9.50 H (0-0.29) mg/dl NT-Pro-B Natriuret Pep (0-900) pg/ml Total Protein (6.4-8.2) gm/dl Albumin (3.4-5.0) gm/dl Globulin (2.5-4.0) gm/dl Albumin/Globulin Ratio (0.9-2) Lipase (73-393) U/L Procalcitonin 0.11 (0-0.5) ng/ml COVID-19 Eval Order Hepatitis C Ab Screen (Neg) SARS-CoV-2, RNA, NAAT (NEGATIVE) 06/17/20 Range/Units 10:02 WBC (4.8-10.8) K/uL RBC (4.2-5.4) M/uL Hgb (12.0-16.0) g/dL Hct (37-47) % MCV (80-100) fL MCH (25-34) pg MCHC (32-36) g/dL RDW Std Deviation (36.4-46.3) fL RDW Coeff of Arabella (11.5-14.5) % Plt Count (130-400) K/uL MPV (7.4-10.4) fL Immature Gran % (Auto) % Neut % (Auto) % Lymph % (Auto) % Elbert % (Auto) % Eos % (Auto) % Baso % (Auto) % Neut # (Auto) (1.4-6.5) K/uL Lymph # (Auto) (1.2-3.4) K/uL Elbert # (Auto) (0.11-0.59) K/uL Eos # (Auto) (0-0.5) K/uL Baso # (Auto) (0-0.2) K/uL Immature Gran # (Auto) (0.00-0.02) K/uL ESR (0-21) mm/hr PT (9.0-12.0) Seconds INR (0.9-1.1) APTT (21.0-31.0) Seconds PTT Ratio D-Dimer (0-500) ug/L FEU Sodium (136-145) mmol/L Potassium (3.5-5.1) mmol/L Chloride (98-107) mmol/L Carbon Dioxide (21-32) mmol/L Anion Gap (3-11) BUN (7-18) mg/dl Creatinine (0.6-1.2) mg/dl Est Cr Clr Drug Dosing ml/min Est GFR ( Amer) Est GFR (Non-Af Amer) BUN/Creatinine Ratio (10-20) Glucose (70-99) mg/dl Calcium (8.5-10.1) mg/dl Total Bilirubin (0.2-1) mg/dl AST (15-37) U/L ALT (12-78) U/L Alkaline Phosphatase (45-117) U/L Total Creatine Kinase (26-192) U/L CK-MB (CK-2) (0.5-3.6) ng/ml CK/CKMB % Calc Troponin I (0-0.045) ng/ml C-Reactive Protein (0-0.29) mg/dl NT-Pro-B Natriuret Pep (0-900) pg/ml Total Protein (6.4-8.2) gm/dl Albumin (3.4-5.0) gm/dl Globulin (2.5-4.0) gm/dl Albumin/Globulin Ratio (0.9-2) Lipase (73-393) U/L Procalcitonin (0-0.5) ng/ml COVID-19 Eval Order Hepatitis C Ab Screen Neg (Neg) SARS-CoV-2, RNA, NAAT (NEGATIVE) Imaging Data Radiologist's Impression: [facility], [id number] [phone] XRay Report Patient: DIONNE SAL LAdpio Date: 06/17[birth year]20MR#: [id number]: [address]Acct ID:[id number]: [address]Birth Date: 1950City Zip: [place] [address]: [address]Location: EDSex: FRoom/Bed:Att Phy:Diagnosis: SOBPri Phy: Babak Melendez MD(RAMEZ)Service Date: 06/17/20Fa Phy:Interpreting Phy: Fox Garcia MDAdmit Phy: Ordering Phy: Donovan Rees MD cc: ~ XR chest 1V portable CLINICAL HISTORY: Atypical chest pain COMPARISON STUDY: 04/18/2020 FINDINGS: The heart is borderline enlarged. There is interstitial thickening, similar to the prior study. There is no lobar consolidation. There are postprocedural changes of a prior vertebroplasty. There is a right shoulder arthroplasty.[ IMPRESSION: 1. Borderline cardiomegaly with stable interstitial thickening 2. No evidence of acute lobar consolidation ACT 112: Negative or not required by law. Electronically signed by: Fox Garcia M.D. 06/17/2020 10:15 AM Dictated: 06/17/20 1014Transcribed: 06/17/20 1014 ECG Data Attestation: I personally reviewed and interpreted this ECG as follows: Indication: + SOB/dyspnea Rate (beats per minute): 84 Rhythm: + normal sinus ECG Intervals/blocks: + Normal QT-c (439) ECG [place]: + Normal ECG ST segments: no ST depression and no ST elevation Comparison ECG Date: from (04/14/2020) Change: no significant change MDM Narrative Patient was seen and evaluated as above in room A12. Review was performed of nursing notes and vital signs. I did review pertinent previous visits and patient history. After obtaining a thorough history and physical examination the above work up was performed. This 69-year-old female who presents emergency department complaining shortness of breath. The patient is positive for Covid. She was started on Decadron here in the emergency department. Because the patient's CO2 level is elevated on her renal profile a VBG was obtained. This was also elevated therefore I did discuss the case with the hospitalist service who did agree to admit the ric ent. Patient was given an inhaler to use here in the emergency department. Patient is in agreement with the treatment plan. An order was placed for continuous cardiac monitoring. The monitor shows a rate of 68 with Normal Sinus rhythm. \ The patient was evaluated during a period of high volume and high acuity while the hospital was at overcapacity during the global COVID-19 pandemic, and that diagnosis was suspected/considered upon their initial presentation. Their evaluation, treatment and testing was consistent with current guidelines for patients who present with complaints or symptoms that may be related to COVID- 19. Impression & Plan COVID-19, CKD (chronic kidney disease), Hypercapnia, Weakness, SOB (shortness of breath) Discharge Plan Visit Data Chief Complaint: Shortness of Breath/Dyspnea ED Provider: Donovan Rees Discharge Problem: COVID-19, CKD (chronic kidney disease), Hypercapnia, Weakness, SOB (shortness of breath) Patient Disposition: Admitted As Inpatient Discharge Instructions Interventions: ED Discharge Assessment Last Done: 06/17/20 17:44 Discharge Problem: CKD (chronic kidney disease) Qualifiers: Chronic kidney disease stage: unspecified stage Qualified Code(s): N18.9 - Chronic kidney disease, unspecified
[2020-06-17] MEDS ORDERED: FUROSEMIDE 40 MG/4 ML VIAL IV PRN (18:26)
[2020-06-17] MEDS ORDERED: ACETAMINOPHEN 325 MG TAB PO PRN (18:26)
[2020-06-17] MEDS ORDERED: ALBUTEROL 0.083% NEBU SOLN 3 ML VIAL INH PRN (18:26)
[2020-06-17] MEDS ORDERED: PROPAFENONE HCL 150 MG TABLET PO SCH (18:30)
[2020-06-17] MEDS ORDERED: INFLUENZA VACCINE HIGH DOSE 65+ 0.7 ML SYR IM ONE (20:00)
[2020-06-17] MEDS ORDERED: REMDESIVIR 200 MG in SODIUM CHLORIDE 0.9% 210 ML IV ONE (20:21)
[2020-06-17] MEDS ORDERED: GABAPENTIN 600 MG TAB PO SCH (21:00)
[2020-06-17] MEDS: THIAMINE HCL 100 MG in SYRINGE 9 ML IV SCH (21:18)
[2020-06-17] MEDS: ENOXAPARIN INJ 40 MG/0.4 ML SYR SQ SCH (21:19)
[2020-06-17] MEDS: ATORVASTATIN 20 MG TAB PO SCH (21:19)
[2020-06-17] MEDS: BUMETANIDE 1 MG TAB PO SCH (21:20)
[2020-06-17] MEDS: PANTOprazole 40 MG TAB PO SCH (21:21)
[2020-06-17] MEDS: GABAPENTIN 300 MG CAP PO SCH (21:22)
[2020-06-17] MEDS: SODIUM CHLORIDE 0.9% 10ML FLUSH IV SCH (23:39)
[2020-06-18] MEDS ORDERED: PROMETHAZINE HCL 12.5 MG in SODIUM CHLORIDE 0.9% 50 ML IV PRN (00:43)
[2020-06-18] MEDS: amLODIPine BESYLATE 5 MG TAB PO SCH (01:10)
[2020-06-18] MEDS: PROPAFENONE HCL 150 MG TABLET PO SCH ×3 (05:41→22:02)
[2020-06-18] MEDS: LEVOTHYROXINE SODIUM 88 MCG TABLET PO SCH (05:41)
[2020-06-18 06:17] LABS: Appearance Urine Clear (Clear); Bilirubin Urine Negative (Negative); Blood Urine Negative (Negative); Color Urine Yellow; Glucose Urine UA Negative (Negative); Ketones Urine Negative (Negative); Leukocyte Esterase Urine Negative (Negative); Nitrite Urine Negative (Negative); Protein Urine Negative (Negative); Specific Gravity Urine 1.016 (1.000-1.030); Urobilinogen Urine Negative (Negative)
[2020-06-18 06:59] LABS: Hematocrit (blood only) 28.7 % (37-47); Hemoglobin 8.5 g/dL (12.0-16.0); Mean Corpuscular Hemoglobin 28.5 pg (25-34); Mean Corpuscular Hgb Conc 29.6 g/dL (32-36); Mean Corpuscular Volume 96.3 fL (80-100); Mean Platelet Volume 9.3 fL (7.4-10.4); Platelet Count 251 K/uL (130-400); RDW Coefficient of Variation 15.4 % (11.5-14.5); RDW Standard Deviation 54.4 fL (36.4-46.3); Red Blood Count 2.98 M/uL (4.2-5.4); White Blood Count 7.11 K/uL (4.8-10.8)
[2020-06-18 07:32] LABS: Albumin Globulin Ratio 0.5 (0.9-2); Albumin Level 2.5 gm/dl (3.4-5.0); BUN Creatinine Ratio 26.1 (10-20); Bilirubin,Total 0.2 mg/dl (0.2-1); Calcium 9.5 mg/dl (8.5-10.1); Est GFR (African American) 36.9; Est GFR (Non-African American) 31.8; Globulin 5.4 gm/dl (2.5-4.0); Magnesium 2.3 mg/dl (1.8-2.4); Phosphorus 3.4 mg/dl (2.5-4.9); Potassium 3.9 mmol/L (3.5-5.1); Total Protein 7.9 gm/dl (6.4-8.2)
[2020-06-18] MEDS ORDERED: amLODIPine BESYLATE 5 MG TAB PO SCH (09:00)
[2020-06-18] MEDS: dexAMETHasone 6 MG in SYRINGE 0 ML IV SCH (09:31)
[2020-06-18] MEDS: PANTOprazole 40 MG TAB PO SCH (09:32)
[2020-06-18] MEDS: allopurinoL 300 MG TAB PO SCH (09:32)
[2020-06-18] MEDS: BUMETANIDE 1 MG TAB PO SCH ×2 (09:32→17:50)
[2020-06-18] MEDS: ROFLUMILAST 500 MCG TAB PO SCH (09:33)
[2020-06-18] MEDS: SERTRALINE HCL 50 MG TABLET PO SCH (09:33)
[2020-06-18] MEDS: MULTIVITAMIN TAB PO SCH (09:34)
[2020-06-18] MEDS: CHOLECALCIFEROL 1,000 UNITS 25 MCG TAB PO SCH (09:34)
[2020-06-18] MEDS: METOPROLOL SUCC 50MG EXT REL TAB PO SCH (09:35)
[2020-06-18] MEDS: DOXYCYCLINE HYCLATE 100 MG CAP PO SCH ×2 (09:35→20:39)
[2020-06-18] MEDS: UMECLIDINIUM BROMIDE 62.5MCG/BLISTER 7 PUFFS/INHALER INH SCH (09:36)
[2020-06-18] MEDS: FLUTICASONE/VILANTEROL 200/25MCG 14 PUFFS/INHALER INH SCH (09:36)
[2020-06-18] MEDS: ENOXAPARIN INJ 40 MG/0.4 ML SYR SQ SCH ×2 (09:37→20:38)
[2020-06-18] MEDS: THIAMINE HCL 100 MG in SYRINGE 9 ML IV SCH ×2 (09:37→20:51)
[2020-06-18] MEDS: traMADol HCL 50 MG TABLET PO PRN ×2 (15:09→20:50)
[2020-06-18] MEDS: HYDROCODONE/ACETAMOPHEN 5/325MG TAB PO PRN (17:58)
[2020-06-18] MEDS: REMDESIVIR 100 MG in SODIUM CHLORIDE 0.9% 230 ML IV SCH (20:37)
[2020-06-18] MEDS: GABAPENTIN 300 MG CAP PO SCH (20:40)
[2020-06-18] MEDS: ATORVASTATIN 20 MG TAB PO SCH (20:41)
--- NOTE | 2020-06-18 21:24 | Hospitalist Progress Note ---
Date of Service delayed entry date of service noted below June 18, 2020 Assessment & Plan (1) COVID-19: (2) Shortness of breath: (3) Chronic respiratory failure with hypoxia: (4) Hypercapnia: per admitting service notes: Pt with chronic res. failure with hypoxia on 4L at baseline d/t COPD and asthma She is currently in ED on 4L but with ambulation desatting to 80s Pt feels short of breath and tachypneic productive yellow sputum, fever, chills, at home, nausea Received dexamethasone, albuterol and azithromycin in ED Ddimer in 900s, CRP, ESR elevated procalcitonin- pending no LE edema, low suspicion for DVT/PE, Ddimer elevation likely 2/2 age and COVID 19 infection, will place on lovenox for DVT ppx CXR without any sign. opacity Continue D-dimer 6mg IV daily, start PPI while on steroid Cont. Azithromycin for now Consented for convalescent plasma - will administer when available, monitor fluid status given hx of chronic diastolic CHF Hx of CKD stage III, will hold of from remdesivir for now will start thiamine to try to prevent encephalopathy associated with covid 19, currently pt is alert and oriented and answering questions appropriately but she is in increased risk given her complex med. hx and current clinical status 06/18 at baseline 4 L NC states breathing has improved on Decadron, Remdesivir Day 2 patient would like to think about Convalescent plasma more Lovenox for DVT prophyaxis Right shoulder pain -- chronic -- not relieved by Tramadol -- [place] ordered (5) Chronic diastolic CHF (congestive heart failure): euvolemic cont. home bumex and cont. to closely monitor fluid status (6) Anemia: Hx of anemia, d/t CKD/ chronic disease Hgb 8.5 FOBT ordered no signs of bleeding (7) Hypothyroidism: cont. home levothyroxine (8) CKD (chronic kidney disease), stage III: Cr at baseline (9) Morbid obesity: BMI above 35 Hx of obesity hypoventulation syndrome DVT ppx: Lovenox Code: DNR/DNI - this was discussed with the pt on admission Admission and Anticipated Discharge Date Admission Date: June 17, 2020 Subjective ff up for COVID 19 infection seen resting in bedside chair, comfortable on 4 L nc, which is her baseline states breathing is improved today, less cough no chest pain, palpitations, headache/dizziness reports significant r shoulder pain- chronic, no recent trauma no other symptoms Review of Systems Review of Systems: All systems reviewed & are unremarkable except as noted in Subjective Physical Exam Physical Exam: General- oriented x 3, not in distress, speaks in sentences w ith no effort or accessory muscle use Head- atraumatic Eyes- PERRL, EOMI, anicteric ENT- oropharynx clear Neck- supple, no JVD, no adenopathy, no thyromegaly; carotids +2/2, no bruits appreciated Lungs- mild rhonchi bilaterally,no wheezing good air entry BL Heart- normal rate, regular rhythm; no murmur, no gallop, no rub appreciated Abdomen- normal bowel sounds, nondistended, soft, nontender, no masses or hepatosplenomegaly Extremities- no pretibial edema, no calf tenderness; peripheral pulses intact right shoulder- mild edema, no warmth, mild tenderness Neuro- alert, oriented x 3; CN 2-12 grossly intact; motor 5/5 bilaterally;sensation 100% on all extremities; no other gross focal neurologic deficits Skin- warm & dry Results & Data Results & Data ([facility]) Vital Signs (Past 12 Hours) Vital Signs Temp Pulse Pulse Resp BP Pulse Ox 06/18/20 19:12 36.5 C 76 16 141/57 H 96 06/18/20 15:30 36.4 C L 71 16 127/61 97 06/18/20 15:16 71 06/18/20 11:14 36.6 C 87 20 147/71 H 96 Laboratory Results all noted and reviewed (1) Anemia Anemia type: unspecified type Qualified Code(s): D64.9 - Anemia, unspecified
[2020-06-18] MEDS: SODIUM CHLORIDE 0.9% 10ML FLUSH IV SCH (22:02)
[2020-06-19] MEDS: LEVOTHYROXINE SODIUM 88 MCG TABLET PO SCH (06:03)
[2020-06-19] MEDS: PROPAFENONE HCL 150 MG TABLET PO SCH ×3 (06:03→20:16)
[2020-06-19 07:05] LABS: Hematocrit (blood only) 29.8 % (37-47); Hemoglobin 8.7 g/dL (12.0-16.0); Mean Corpuscular Hemoglobin 28.1 pg (25-34); Mean Corpuscular Hgb Conc 29.2 g/dL (32-36); Mean Corpuscular Volume 96.1 fL (80-100); Mean Platelet Volume 9.2 fL (7.4-10.4); Nucleated RBC # (auto) 0.03 K/uL (0-0); Nucleated RBC % (auto) 0.2 %; Platelet Count 266 K/uL (130-400); RDW Coefficient of Variation 15.5 % (11.5-14.5); RDW Standard Deviation 54.4 fL (36.4-46.3); White Blood Count 16.45 K/uL (4.8-10.8)
[2020-06-19 07:40] LABS: Albumin Globulin Ratio 0.5 (0.9-2); Albumin Level 2.4 gm/dl (3.4-5.0); BUN Creatinine Ratio 32.5 (10-20); Bilirubin,Total 0.3 mg/dl (0.2-1); Calcium 9.2 mg/dl (8.5-10.1); Creatinine Clr Calc Pharmacy 37.2 ml/min; Est GFR (African American) 37.5; Est GFR (Non-African American) 32.3; Globulin 4.8 gm/dl (2.5-4.0); Magnesium 1.9 mg/dl (1.8-2.4); Potassium 3.7 mmol/L (3.5-5.1); Total Protein 7.2 gm/dl (6.4-8.2)
[2020-06-19] MEDS: HYDROCODONE/ACETAMOPHEN 5/325MG TAB PO PRN ×3 (08:17→20:15)
[2020-06-19] MEDS: ENOXAPARIN INJ 40 MG/0.4 ML SYR SQ SCH ×2 (08:19→20:17)
[2020-06-19] MEDS: FLUTICASONE/VILANTEROL 200/25MCG 14 PUFFS/INHALER INH SCH (08:20)
[2020-06-19] MEDS: BUMETANIDE 1 MG TAB PO SCH ×2 (08:20→16:56)
[2020-06-19] MEDS: dexAMETHasone 6 MG in SYRINGE 0 ML IV SCH (08:22)
[2020-06-19] MEDS: ROFLUMILAST 500 MCG TAB PO SCH (08:22)
[2020-06-19] MEDS: UMECLIDINIUM BROMIDE 62.5MCG/BLISTER 7 PUFFS/INHALER INH SCH (08:23)
[2020-06-19] MEDS: MULTIVITAMIN TAB PO SCH (08:23)
[2020-06-19] MEDS: PANTOprazole 40 MG TAB PO SCH (08:24)
[2020-06-19] MEDS: METOPROLOL SUCC 50MG EXT REL TAB PO SCH (08:24)
[2020-06-19] MEDS: amLODIPine BESYLATE 5 MG TAB PO SCH (08:24)
[2020-06-19] MEDS: CHOLECALCIFEROL 1,000 UNITS 25 MCG TAB PO SCH (08:25)
[2020-06-19] MEDS: DOXYCYCLINE HYCLATE 100 MG CAP PO SCH ×2 (08:25→20:16)
[2020-06-19] MEDS: SERTRALINE HCL 50 MG TABLET PO SCH (08:25)
[2020-06-19] MEDS: THIAMINE HCL 100 MG in SYRINGE 9 ML IV SCH ×2 (08:25→20:16)
[2020-06-19] MEDS: allopurinoL 300 MG TAB PO SCH (08:26)
[2020-06-19] MEDS: ALBUT/IPRATROP 3MG/0.5MG NEB 3 ML VIAL NEB SCH ×4 (12:02→23:20)
[2020-06-19] MEDS: traMADol HCL 50 MG TABLET PO PRN (17:00)
--- NOTE | 2020-06-19 19:37 | Hospitalist Progress Note ---
Date of Service June 19, 2020 Assessment & Plan (1) COVID-19: (2) Shortness of breath: (3) Chronic respiratory failure with hypoxia: (4) Hypercapnia: per admitting service notes: Pt with chronic res. failure with hypoxia on 4L at baseline d/t COPD and asthma She is currently in ED on 4L but with ambulation desatting to 80s Pt feels short of breath and tachypneic productive yellow sputum, fever, chills, at home, nausea Received dexamethasone, albuterol and azithromycin in ED Ddimer in 900s, CRP, ESR elevated procalcitonin- pending no LE edema, low suspicion for DVT/PE, Ddimer elevation likely 2/2 age and COVID 19 infection, will place on lovenox for DVT ppx CXR without any sign. opacity Continue D-dimer 6mg IV daily, start PPI while on steroid Cont. Azithromycin for now Consented for convalescent plasma - will administer when available, monitor flui d status given hx of chronic diastolic CHF Hx of CKD stage III, will hold of from remdesivir for now will start thiamine to try to prevent encephalopathy associated with covid 19, currently pt is alert and oriented and answering questions appropriately but she is in increased risk given her complex med. hx and current clinical status 06/19 at baseline 4 L NC states breathing has improved on Decadron, Remdesivir Day 3 Lovenox for DVT prophyaxis Right shoulder pain -- chronic -- not relieved by Tramadol -- [place] ordered (5) Chronic diastolic CHF (congestive heart failure): euvolemic cont. home bumex and cont. to closely monitor fluid status (6) Anemia: Hx of anemia, d/t CKD/ chronic disease Hgb 8.5 FOBT ordered no signs of bleeding (7) Hypothyroidism: cont. home levothyroxine (8) CKD (chronic kidney disease), stage III: Cr at baseline (9) Morbid obesity: BMI above 35 Hx of obesity hypoventulation syndrome DVT ppx: Lovenox Code: DNR/DNI - this was discussed with the pt on admission DISPOSITION : to be determined will need PT/OT eval prior to discharge Admission and Anticipated Discharge Date Admission Date: June 17, 2020 Subjective continues to have non productive cough no fever or chills feels a bit better that yesterday on 4 L02 via nasal canula which is her baseline Review of Systems Review of Systems: All systems reviewed & are unremarkable except as noted in HPI & below Constitutional: + fatigue; no fever and no chills Respiratory: + cough, + dyspnea and + dyspnea on exertion Physical Exam Constitutional: WD/WN, vitals as above no acute distress Eyes: PERRL, conjunctivae normal, anicteric sclerae ENMT: external ear and nose normal, oropharynx normal Neck: trachea midline, no thyromegaly Respiratory: normal respiratory effort; no respiratory distress Auscultation: + crackles, + rales and + wheezes Cardiovascular: RRR, no murmur, no edema Gastrointestinal (Abdomen): Percussion/Palpation: abdomen soft; abdomen nontender Musculoskeletal: no cyanosis or clubbing, extremities motor strength 5/5 Skin: no rashes, warm and dry Neurologic: PERRL, EOMI, accommodation nl, no face palsy, no dysarthria Psychiatric: A+Ox3, euthymic affect Results & Data Results & Data ([facility]) Vital Signs (Past 12 Hours) Vital Signs Temp Pulse Resp BP Pulse Ox 06/19/20 15:47 66 20 93 06/19/20 15:04 36.4 C L 79 24 133/73 93 06/19/20 12:04 75 20 93 06/19/20 12:00 98 06/19/20 11:16 36.6 C 72 18 123/70 94 (1) Anemia Anemia type: unspecified type Qualified Code(s): D64.9 - Anemia, unspecified
[2020-06-19] MEDS: GABAPENTIN 300 MG CAP PO SCH (20:15)
[2020-06-19] MEDS: ATORVASTATIN 20 MG TAB PO SCH (20:15)
[2020-06-19] MEDS: REMDESIVIR 100 MG in SODIUM CHLORIDE 0.9% 230 ML IV SCH (20:16)
[2020-06-19] MEDS: SODIUM CHLORIDE 0.9% 10ML FLUSH IV SCH (20:18)
[2020-06-20] MEDS: ALBUT/IPRATROP 3MG/0.5MG NEB 3 ML VIAL NEB SCH ×6 (02:33→23:16)
[2020-06-20] MEDS: PROPAFENONE HCL 150 MG TABLET PO SCH ×3 (04:46→22:39)
[2020-06-20] MEDS: LEVOTHYROXINE SODIUM 88 MCG TABLET PO SCH (04:46)
[2020-06-20 07:21] LABS: Albumin Level 2.4 gm/dl (3.4-5.0); BUN Creatinine Ratio 33.9 (10-20); Bilirubin,Total 0.3 mg/dl (0.2-1); Calcium 9.9 mg/dl (8.5-10.1); Creatinine Clr Calc Pharmacy 39.9 ml/min; Est GFR (African American) 40.9; Est GFR (Non-African American) 35.3; Globulin 4.9 gm/dl (2.5-4.0); Potassium 3.4 mmol/L (3.5-5.1); Total Protein 7.3 gm/dl (6.4-8.2)
[2020-06-20] MEDS: THIAMINE HCL 100 MG in SYRINGE 9 ML IV SCH ×2 (08:40→22:48)
[2020-06-20] MEDS: ENOXAPARIN INJ 40 MG/0.4 ML SYR SQ SCH ×2 (08:41→22:39)
[2020-06-20] MEDS: dexAMETHasone 6 MG in SYRINGE 0 ML IV SCH (08:41)
[2020-06-20] MEDS: amLODIPine BESYLATE 5 MG TAB PO SCH (08:41)
[2020-06-20] MEDS: PANTOprazole 40 MG TAB PO SCH (08:42)
[2020-06-20] MEDS: DOXYCYCLINE HYCLATE 100 MG CAP PO SCH ×2 (08:42→22:39)
[2020-06-20] MEDS: CHOLECALCIFEROL 1,000 UNITS 25 MCG TAB PO SCH (08:42)
[2020-06-20] MEDS: SERTRALINE HCL 50 MG TABLET PO SCH (08:43)
[2020-06-20] MEDS: BUMETANIDE 1 MG TAB PO SCH ×2 (08:43→15:52)
[2020-06-20] MEDS: METOPROLOL SUCC 50MG EXT REL TAB PO SCH (08:43)
[2020-06-20] MEDS: UMECLIDINIUM BROMIDE 62.5MCG/BLISTER 7 PUFFS/INHALER INH SCH (08:43)
[2020-06-20] MEDS: ROFLUMILAST 500 MCG TAB PO SCH (08:43)
[2020-06-20] MEDS: MULTIVITAMIN TAB PO SCH (08:43)
[2020-06-20] MEDS: FLUTICASONE/VILANTEROL 200/25MCG 14 PUFFS/INHALER INH SCH (08:43)
[2020-06-20] MEDS: allopurinoL 300 MG TAB PO SCH (08:44)
[2020-06-20] MEDS: HYDROCODONE/ACETAMOPHEN 5/325MG TAB PO PRN ×2 (08:54→15:51)
[2020-06-20 10:06] LABS: Albumin Globulin Ratio 0.5 (0.9-2)
--- NOTE | 2020-06-20 10:56 | XRay Report ---
XR chest 1V portable HISTORY: Shortness of breath/Covid 19 pneumonia COMPARISON: Chest 06/17/2020. FINDINGS: No pneumothorax. Suspect a trace left pleural effusion. The heart remains mildly enlarged. Mild diffuse interstitial thickening which is likely chronic. Stable bilateral hilar prominence. Left basilar linear densities persist. Otherwise, no new focal lung consolidations. IMPRESSION: 1. Stable mild cardiomegaly and chronic interstitial thickening. 2. Trace left pleural effusion. 3. Linear density at the left lung base. This favors atelectasis. A pneumonia could have a similar ap pearance but is considered less likely. 4. Otherwise, no new focal lung consolidations within the chest. ACT 112: Negative or not required by law. Electronically signed by: Henry Bourne M.D. 06/20/2020 10:54 AM
--- NOTE | 2020-06-20 17:50 | Hospitalist Progress Note ---
Date of Service June 20, 2020 Assessment & Plan (1) COVID-19: (2) Shortness of breath: (3) Chronic respiratory failure with hypoxia: (4) Hypercapnia: per admitting service notes: Pt with chronic res. failure with hypoxia on 4L at baseline d/t COPD and asthma presented to ED on 4L but with ambulation desatting to 80s Pt feels short of breath and tachypneic productive yellow sputum, fever, chills, at home, nausea Received dexamethasone, albuterol and azithromycin in ED Ddimer in 900s, CRP, ESR elevated procalcitonin- no LE edema, low suspicion for DVT/PE, Ddimer elevation likely 2/2 age and COVID 19 infection, on lovenox for DVT ppx CXR without any sign. opacity Continue dexamethasone 6mg IV daily for total 10 days start PPI while on steroid Cont. Azithromycin for now Hx of CKD stage III, monitor renal function 06/19 at baseline 4 L NC states breathing has improved on Dexamethasone , Remdesivir Day 4 Lovenox for DVT prophyaxis Right shoulder pain -- chronic -- not relieved by Tramadol -- [place] ordered (5) Chronic diastolic CHF (congestive heart failure): euvolemic cont. home bumex and cont. to closely monitor fluid status (6) Anemia: Hx of anemia, d/t CKD/ chronic disease Hgb 8.5 FOBT ordered no signs of bleeding (7) Hypothyroidism: cont. home levothyroxine (8) CKD (chronic kidney disease), stage III: Cr at baseline (9) Morbid obesity: BMI above 35 Hx of obesity hypoventulation syndrome DVT ppx: Lovenox Code: DNR/DNI - this was discussed with the pt on admission DISPOSITION : to be determined will need PT/OT eval prior to discharge Admission and Anticipated Discharge Date Admission Date: June 17, 2020 Subjective has non productive cough no fever or chills feels a bit better that yesterday resp status baseline Review of Systems Constitutional: + fatigue; no fever and no chills Respiratory: + cough, + dyspnea and + dyspnea on exertion Gastrointestinal: + nausea; no abdominal pain, no vomiting and no diarrhea/loose stools Physical Exam Constitutional: WD/WN, vitals as above no acute distress Eyes: PERRL, conjunctivae normal, anicteric sclerae ENMT: external ear and nose normal, oropharynx normal Neck: trachea midline, no thyromegaly Respiratory: normal respiratory effort; no respiratory distress Auscultation: + crackles, + rales and + wheezes Cardiovascular: RRR, no murmur, no edema Gastrointestinal (Abdomen): Percussion/Palpation: abdomen soft; abdomen nontender Musculoskeletal: no cyanosis or clubbing, extremities motor strength 5/5 Skin: no rashes, warm and dry Neurologic: PERRL, EOMI, accommodation nl, no face palsy, no dysarthria Psychiatric: A+Ox3, euthymic affect Results & Data Results & Data ([facility]) Vital Signs (Past 12 Hours) Vital Signs Temp Pulse Pulse Resp BP Pulse Ox 06/20/20 16:10 36.7 C 66 68 18 117/66 96 06/20/20 15:24 70 18 96 06/20/20 11:42 70 18 100 06/20/20 11:37 36.4 C L 71 18 130/71 99 06/20/20 09:00 63 06/20/20 08:17 36.7 C 71 18 136/77 100 06/20/20 07:51 68 20 100 (1) Anemia Anemia type: unspecified type Qualified Code(s): D64.9 - Anemia, unspecified
[2020-06-20] MEDS ORDERED: POTASSIUM CHLORIDE 10 MEQ TABCR PO STA (17:58)
[2020-06-20] MEDS: REMDESIVIR 100 MG in SODIUM CHLORIDE 0.9% 230 ML IV SCH (22:35)
[2020-06-20] MEDS: ATORVASTATIN 20 MG TAB PO SCH (22:39)
[2020-06-20] MEDS: GABAPENTIN 300 MG CAP PO SCH (22:40)
[2020-06-20] MEDS: SODIUM CHLORIDE 0.9% 10ML FLUSH IV SCH (23:42)
[2020-06-21] MEDS: ALBUT/IPRATROP 3MG/0.5MG NEB 3 ML VIAL NEB SCH ×6 (02:20→23:22)
[2020-06-21] MEDS: LEVOTHYROXINE SODIUM 88 MCG TABLET PO SCH (07:22)
[2020-06-21] MEDS: PROPAFENONE HCL 150 MG TABLET PO SCH ×3 (07:22→21:22)
[2020-06-21] MEDS: THIAMINE HCL 100 MG in SYRINGE 9 ML IV SCH (08:52)
[2020-06-21] MEDS: amLODIPine BESYLATE 5 MG TAB PO SCH (08:52)
[2020-06-21] MEDS: BUMETANIDE 1 MG TAB PO SCH ×2 (08:52→18:09)
[2020-06-21] MEDS: CHOLECALCIFEROL 1,000 UNITS 25 MCG TAB PO SCH (08:53)
[2020-06-21] MEDS: PANTOprazole 40 MG TAB PO SCH (08:53)
[2020-06-21] MEDS: METOPROLOL SUCC 50MG EXT REL TAB PO SCH (08:55)
[2020-06-21] MEDS: MULTIVITAMIN TAB PO SCH (08:55)
[2020-06-21] MEDS: ROFLUMILAST 500 MCG TAB PO SCH (08:55)
[2020-06-21] MEDS: UMECLIDINIUM BROMIDE 62.5MCG/BLISTER 7 PUFFS/INHALER INH SCH (08:56)
[2020-06-21] MEDS: DOXYCYCLINE HYCLATE 100 MG CAP PO SCH ×2 (08:56→21:22)
[2020-06-21] MEDS: dexAMETHasone 6 MG in SYRINGE 0 ML IV SCH (08:56)
[2020-06-21] MEDS: ENOXAPARIN INJ 40 MG/0.4 ML SYR SQ SCH ×2 (08:57→19:44)
[2020-06-21] MEDS: FLUTICASONE/VILANTEROL 200/25MCG 14 PUFFS/INHALER INH SCH (08:57)
[2020-06-21] MEDS: allopurinoL 300 MG TAB PO SCH (08:58)
[2020-06-21] MEDS: SERTRALINE HCL 50 MG TABLET PO SCH (11:19)
--- NOTE | 2020-06-21 17:52 | Hospitalist Progress Note ---
Date of Service June 21, 2020 Assessment & Plan (1) COVID-19: (2) Shortness of breath: (3) Chronic respiratory failure with hypoxia: (4) Hypercapnia: per admitting service notes: Pt with chronic res. failure with hypoxia on 4L at baseline d/t COPD and asthma presented with complain of SOB , productive yellow sputum, fever, chills, at home, nausea COVID 19 positive Continue dexamethasone 6mg IV daily for total 10 days on Remdesivir IV on PPI while on steroid respiratory status stable Hx of CKD stage III, monitor renal function cr at approx baseline Right shoulder pain -- chronic -- (5) Chronic diastolic CHF (congestive heart failure): euvolemic con home dose of diuretics (6) Anemia: Hx of anemia, d/t CKD/ chronic disease hb stable (7) Hypothyroidism: cont. home levothyroxine (8) CKD (chronic kidney disease), stage III: Cr at baseline/monitor (9) Morbid obesity: BMI above 35 Hx of obesity hypoventilation syndrome DVT ppx: sc Lovenox as per COVID 19 DVT prophylaxis guideline Code: DNR/DNI - this was discussed with the pt on admission DISPOSITION : lives at home with daughter PT/OT lonnie mullins -can return home with family support when medically stable Granddaughter and Daughter Noreen updated over phone Admission and Anticipated Discharge Date Admission Date: June 17, 2020 Subjective breathing has improved no exertional SOB on 4L 02 -her baseline cough has improved , no fever or chills Review of Systems Review of Systems: All systems reviewed & are unremarkable except as noted in HPI & below Constitutional: no fever and no chills Respiratory: + cough and + dyspnea on exertion; no wheezing Physical Exam Constitutional: WD/WN, vitals as above no acute distress Eyes: PERRL, conjunctivae normal, anicteric sclerae ENMT: external ear and nose normal, oropharynx normal Neck: trachea midline, no thyromegaly Respiratory: normal respiratory effort; no respiratory distress Auscultation: + wheezes Cardiovascular: RRR, no murmur, no edema Gastrointestinal (Abdomen): Percussion/Palpation: abdomen soft; abdomen nonte nder Musculoskeletal: no cyanosis or clubbing, extremities motor strength 5/5 Skin: no rashes, warm and dry Neurologic: PERRL, EOMI, accommodation nl, no face palsy, no dysarthria Psychiatric: A+Ox3, euthymic affect Results & Data Results & Data ([facility]) Vital Signs (Past 12 Hours) Vital Signs Temp Pulse Pulse Resp BP BP Pulse Ox 06/21/20 15:43 36.6 C 72 20 120/50 L 96 06/21/20 14:59 72 20 96 06/21/20 11:12 66 22 99 06/21/20 11:08 72 06/21/20 10:55 36.4 C L 70 18 127/64 96 06/21/20 07:59 68 18 96 06/21/20 07:23 36.5 C 69 18 151/72 H 99 (1) Anemia Anemia type: unspecified type Qualified Code(s): D64.9 - Anemia, unspecified
[2020-06-21] MEDS: REMDESIVIR 100 MG in SODIUM CHLORIDE 0.9% 230 ML IV SCH (19:44)
[2020-06-21] MEDS: SODIUM CHLORIDE 0.9% 10ML FLUSH IV SCH (21:14)
[2020-06-21] MEDS: ATORVASTATIN 20 MG TAB PO SCH (21:22)
[2020-06-21] MEDS: GABAPENTIN 300 MG CAP PO SCH (21:22)
[2020-06-22] MEDS: traMADol HCL 50 MG TABLET PO PRN ×2 (00:04→23:52)
[2020-06-22] MEDS: ALBUT/IPRATROP 3MG/0.5MG NEB 3 ML VIAL NEB SCH ×6 (02:12→23:37)
[2020-06-22] MEDS ORDERED: CALCIUM CARBONATE 500 MG CHEWABLE TAB PO PRN (02:25)
[2020-06-22] MEDS: LEVOTHYROXINE SODIUM 88 MCG TABLET PO SCH (05:39)
[2020-06-22] MEDS: PROPAFENONE HCL 150 MG TABLET PO SCH ×3 (05:39→21:24)
[2020-06-22] MEDS: ENOXAPARIN INJ 40 MG/0.4 ML SYR SQ SCH ×2 (09:25→20:13)
[2020-06-22] MEDS: FLUTICASONE/VILANTEROL 200/25MCG 14 PUFFS/INHALER INH SCH (09:26)
[2020-06-22] MEDS: ROFLUMILAST 500 MCG TAB PO SCH (09:27)
[2020-06-22] MEDS: BUMETANIDE 1 MG TAB PO SCH ×2 (09:27→18:02)
[2020-06-22] MEDS: dexAMETHasone 6 MG in SYRINGE 0 ML IV SCH (09:28)
[2020-06-22] MEDS: UMECLIDINIUM BROMIDE 62.5MCG/BLISTER 7 PUFFS/INHALER INH SCH (09:28)
[2020-06-22] MEDS: FUROSEMIDE 20 MG TAB PO SCH (09:29)
[2020-06-22] MEDS: POTASSIUM CHLORIDE 10 MEQ TABCR PO SCH (09:29)
[2020-06-22] MEDS: MULTIVITAMIN TAB PO SCH (09:29)
[2020-06-22] MEDS: amLODIPine BESYLATE 5 MG TAB PO SCH (09:30)
[2020-06-22] MEDS: PANTOprazole 40 MG TAB PO SCH (09:31)
[2020-06-22] MEDS: METOPROLOL SUCC 50MG EXT REL TAB PO SCH (09:31)
[2020-06-22] MEDS: SERTRALINE HCL 50 MG TABLET PO SCH (09:32)
[2020-06-22] MEDS: DOXYCYCLINE HYCLATE 100 MG CAP PO SCH ×2 (09:32→20:16)
[2020-06-22] MEDS: CHOLECALCIFEROL 1,000 UNITS 25 MCG TAB PO SCH (09:32)
[2020-06-22] MEDS: allopurinoL 300 MG TAB PO SCH (09:33)
[2020-06-22] MEDS ORDERED: INFLUENZA VACCINE HIGH DOSE 65+ 0.7 ML SYR IM ONE (16:00)
--- NOTE | 2020-06-22 17:42 | Hospitalist Progress Note ---
Date of Service June 22, 2020 Assessment & Plan (1) COVID-19: (2) Shortness of breath: (3) Chronic respiratory failure with hypoxia: (4) Hypercapnia: per admitting service notes: Pt with chronic res. failure with hypoxia on 4L at baseline d/t COPD and asthma presented with complain of SOB , productive yellow sputum, fever, chills, at home, nausea symptoms has completely resolved COVID 19 positive on dexamethasone 6mg IV daily 5/ 10 days can be discharged home with PO Dexamethasone complted IV Remdesivir IV 5/5 on PPI while on steroid respiratory status stable Hx of CKD stage III, monitor renal function cr at approx baseline Right shoulder pain -- chronic -- (5) Chronic diastolic CHF (congestive heart failure): euvolemic con home dose of diuretics (6) Anemia: Hx of anemia, d/t CKD/ chronic disease hb stable (7) Hypothyroidism: cont. home levothyroxine (8) CKD (chronic kidney disease), stage III: Cr at baseline/monitor (9) Morbid obesity: BMI above 35 Hx of obesity hypoventilation syndrome DVT ppx: sc Lovenox as per COVID 19 DVT prophylaxis guideline Code: DNR/DNI - this was discussed with the pt on admission DISPOSITION : lives at home with daughter PT/OT lonnie mullins -can return home with family support when medically stable Admission and Anticipated Discharge Date Admission Date: June 17, 2020 Subjective pt reports her breathing at her baseline has chronic cough no fever or chills on 4 L home 02 setting Review of Systems Review of Systems: All systems reviewed & are unremarkable except as noted in HPI & below Physical Exam Constitutional: WD/WN, vitals as above no acute distress Eyes: PERRL, conjunctivae normal, anicteric sclerae ENMT: external ear and nose normal, oropharynx normal Neck: trachea midline, no thyromegaly Respiratory: normal respiratory effort; no respiratory distress Auscultation: no wheezes Cardiovascular: RRR, no murmur, no edema Gastrointestinal (Abdomen): Percussion/Palpation: abdomen soft; abdomen nontender Musculoskeletal: no cyanosis or clubbing, extremities motor strength 5/5 Skin: no rashes, warm and dry Neurologic: PERRL, EOMI, accommodation nl, no face palsy, no dysarthria Psychiatric: A+Ox3, euthymic affect Results & Data Results & Data ([place]) Vital Signs (Past 12 Hours) Vital Signs Temp Pulse Resp BP BP Pulse Ox Pulse Ox 06/22/20 16:06 70 18 98 06/22/20 15:06 36.8 C 70 19 130/74 98 06/22/20 13:22 92 06/22/20 12:04 70 18 98 06/22/20 07:41 72 18 99 06/22/20 07:14 36.9 C 77 18 153/79 H 96 Pulse Ox Pulse Ox 06/22/20 16:06 06/22/20 15:06 06/22/20 13:22 97 88 L 06/22/20 12:04 06/22/20 07:41 06/22/20 07:14 (1) Anemia Anemia type: unspecified type Qualified Code(s): D64.9 - Anemia, unspecified
[2020-06-22] MEDS: ATORVASTATIN 20 MG TAB PO SCH (20:16)
[2020-06-22] MEDS: GABAPENTIN 300 MG CAP PO SCH (20:16)
[2020-06-23] MEDS: ALBUT/IPRATROP 3MG/0.5MG NEB 3 ML VIAL NEB SCH ×3 (04:53→12:09)
[2020-06-23] MEDS: PROPAFENONE HCL 150 MG TABLET PO SCH ×2 (05:44→13:04)
[2020-06-23] MEDS: LEVOTHYROXINE SODIUM 88 MCG TABLET PO SCH (05:44)
[2020-06-23 07:39] LABS: BUN Creatinine Ratio 36.6 (10-20); Calcium 9.1 mg/dl (8.5-10.1); Creatinine Clr Calc Pharmacy 38.6 ml/min; Est GFR (African American) 39.6; Est GFR (Non-African American) 34.2; Potassium 3.2 mmol/L (3.5-5.1)
[2020-06-23] MEDS ORDERED: POTASSIUM CHLORIDE CRTAB 20 MEQ TABCR PO STA (08:03)
[2020-06-23] MEDS: ENOXAPARIN INJ 40 MG/0.4 ML SYR SQ SCH (09:02)
[2020-06-23] MEDS: BUMETANIDE 1 MG TAB PO SCH (09:03)
[2020-06-23] MEDS: FLUTICASONE/VILANTEROL 200/25MCG 14 PUFFS/INHALER INH SCH (09:03)
[2020-06-23] MEDS: CHOLECALCIFEROL 1,000 UNITS 25 MCG TAB PO SCH (09:04)
[2020-06-23] MEDS: SERTRALINE HCL 50 MG TABLET PO SCH (09:04)
[2020-06-23] MEDS: ROFLUMILAST 500 MCG TAB PO SCH (09:04)
[2020-06-23] MEDS: amLODIPine BESYLATE 5 MG TAB PO SCH (09:05)
[2020-06-23] MEDS: METOPROLOL SUCC 50MG EXT REL TAB PO SCH (09:05)
[2020-06-23] MEDS: FUROSEMIDE 20 MG TAB PO SCH (09:06)
[2020-06-23] MEDS: PANTOprazole 40 MG TAB PO SCH (09:06)
[2020-06-23] MEDS: DOXYCYCLINE HYCLATE 100 MG CAP PO SCH (09:06)
[2020-06-23] MEDS: MULTIVITAMIN TAB PO SCH (09:07)
[2020-06-23] MEDS: allopurinoL 300 MG TAB PO SCH (09:07)
[2020-06-23] MEDS: UMECLIDINIUM BROMIDE 62.5MCG/BLISTER 7 PUFFS/INHALER INH SCH (09:08)
[2020-06-23] MEDS: dexAMETHasone 6 MG in SYRINGE 0 ML IV SCH (09:08)
[2020-06-23] MEDS: POTASSIUM CHLORIDE 10 MEQ TABCR PO SCH (13:04)
--- NOTE | 2020-06-24 19:05 | Discharge Summary ---
Date of Service June 24, 2020 Admission HPI Per Admitting Provider Pt is a 69 y/o F with complex medical hx including chronic resp. failure with hypoxia (4L of O2 at baseline), d/t asthma and COPD, obesity hypoventilation syndrome, diastolic CHF, hypothyroidism, hx of frequent admissions d/t COPD exacerbations, who now presents with shortness of breath and found to be positive with COVID 19 infection. Pt reports that she experienced worsening shortness of breath this morning. She has been feeling unwell for the past several days, about 4 days ago she had diarrhea, nausea and vomiting. She still has nausea on and off. She reports cough with yellow sputum production. Fevers low grade at home on and off. Pt reports that her home medications did not make her feel much better so presented to ED. Her granddaughter was diagnosed with COVID 19 infection and per pt she was very sick, unfortunately pt was in contact with her. Currently pt denies any abd. pain, any LE edema or abdominal edema/ tightness. CXR in ED did not show any opacity, but chronic interstitial thickening. pro BNP normal. In the ED she has been requiring 4L of O2 but with ambulation she would desat to 80s. She feels unwell and reports some mild improvement with ED treatment with decadron, azithro, albuterol. Principal Diagnosis COVID 19 PNEUMONIA COPD EXACERBATION CHRONIC RESPIRATORY FAILURE ON 4 L HOME 02 Discharge Exam Constitutional WD/WN, vitals as above no acute distress Eyes PERRL, conjunctivae normal, anicteric sclerae ENMT external ear and nose normal, oropharynx normal Neck trachea midline, no thyromegaly Respiratory normal respiratory effort; no respiratory distress Auscultation: no wheezes Cardiovascular RRR, no murmur, no edema Gastrointestinal (Abdomen) Percussion/Palpation: abdomen soft; abdomen nontender Musculoskeletal no cyanosis or clubbing, extremities motor strength 5/5 Skin no rashes, warm and dry Neurologic PERRL, EOMI, accommodation nl, no face palsy, no dysarthria Psychiatric A+Ox3, euthymic affect Discharge Data Allergies Allergy/AdvReac Type Severity Reaction Status Date / Time adhesive Allergy Severe RED RASH Verified 12/02/19 15:26 latex AdvReac Mild TAPE-SORE Verified 12/02/19 15:26 morphine AdvReac Mild DELUSIONS Verified 12/02/19 15:26 Consultations 06/17/20 12:07 ED Decision to Admit Stat 06/17/20 12:43 Consult Case Management - Discharge Planning Routine Hospital Course (1) COVID-19: (2) Shortness of breath: (3) Chronic respiratory failure with hypoxia: (4) Hypercapnia: per admitting service notes: Pt with chronic res. failure with hypoxia on 4L at baseline d/t COPD and asthma presented with complain of SOB , COVID 19 positive productive yellow sputum, fever, chills, at home, nausea symptoms has completely resolved on dexamethasone 6mg IV daily 5/ 10 days discharged home today with PO Dexamethasone for 5 more days completed IV Remdesivir IV 11/13 respiratory status stable Hx of CKD stage III, monitor renal function cr at approx baseline Right shoulder pain -- chronic -- (5) Chronic diastolic CHF (congestive heart failure): euvolemic con home dose of diuretics (6) Anemia: Hx of anemia, d/t CKD/ chronic disease hb stable (7) Hypothyroidism: cont. home levothyroxine (8) CKD (chronic kidney disease), stage III: Cr at baseline/monitor (9) Morbid obesity: BMI above 35 Hx of obesity hypoventilation syndrome DVT ppx: sc Lovenox as per COVID 19 DVT prophylaxis guideline Code: DNR/DNI - this was discussed with the pt on admission DISPOSITION : stable to be discharged home today Total Time Total Time Spent Total Time Spent (In Minutes): 35mins Total Time Includes: Discharge Planning and Medication Reconciliation Discharge Plan Discharge Items Patient Disposition: Home - Home Health Services Reason For Visit: COVID SOB Discharge Diagnosis: COVID 19 PNEUMONIA COPD EXACERBATION CHRONIC RESPIRATORY FAILURE ON 4 L HOME 02 Activity: Resume your previous activity Non-emergency contact: Primary Care Provider Call non-emergency contact if: you have any medication questions Follow-up/Referrals: Babak Melendez MD [Primary Care Provider] - (HOSPITAL FOLLOW UP IN A WEEK ) Diet: Carb Consistent or DM2 and Heart Healthy Addtl Attending Provider Instructions: HOSPITAL FOLLOW UP WITH FAMILY PHYSICIAN IN A WEEK Addtl Bed Laster Provider Instructions: Home Isolation COVID-19 Instructions The following information about Home Isolation is from the CDC Website: https://www.cdc.gov/coronavirus/2019-ncov/hcp/rrwvkacw-dxgudbb-xmohvy.html Stay home except to get medical care People who are mildly ill with COVID-19 are able to isolate at home during their illness. You should restrict activities outside your home, except for getting medical care. Do not go to work, school, or public areas. Avoid using public transportation, ride-sharing, or taxis. Separate yourself from other people and animals in your home People: As much as possible, you should stay in a specific room and away from other people in your home. Also, you should use a separate bathroom, if available. Animals: You should restrict contact with pets and other animals while you are sick with COVID-19, just like you would around other people. Although there have not been reports of pets or other animals becoming sick with COVID-19, it is still recommended that people sick with COVID-19 limit contact with animals until more information is known about the virus. When possible, have another member of your household care for your animals while you are sick. If you are sick with COVID-19, avoid contact with your pet, including petting, snuggling, being kissed or licked, and sharing food. If you must care for your pet or be around animals while you are sick, wash your hands before and after you interact with pets and wear a face mask. Call ahead before visiting your doctor If you have a medical appointment, call the healthcare provider and tell them that you have or may have COVID-19. This will help the healthcare providers office take steps to keep other people from getting infected or exposed. Wear a face mask You should wear a face mask when you are around other people (e.g., sharing a room or vehicle) or pets and before you enter a healthcare providers office. If you are not able to wear a face mask (for example, because it causes trouble breathing), then people who live with you should not stay in the same room with you, or they should wear a face mask if they enter your room. Cover your coughs and sneezes Cover your mouth and nose with a tissue when you cough or sneeze. Throw used tissues in a lined trash can. Immediately wash your hands with soap and water for at least 20 seconds or, if soap and water are not available, clean your hands with an alcohol-based hand car ferry master that contains at least 60% alcohol. Clean your hands often Wash your hands often with soap and water for at least 20 seconds, especially after blowing your nose, coughing, or sneezing; going to the bathroom; and before eating or preparing food. If soap and water are not readily available, use an alcohol-based hand car ferry master with at least 60% alcohol, covering all surfaces of your hands and rubbing them together until they feel dry. Soap and water are the best option if hands are visibly dirty. Avoid touching your eyes, nose, and mouth with unwashed hands. Avoid sharing personal household items You should not share dishes, drinking glasses, cups, eating utensils, towels, or bedding with other people or pets in your home. After using these items, they should be washed thoroughly with soap and water. Clean all high-touch surfaces everyday High touch surfaces include counters, tabletops, doorknobs, bathroom fixtures, toilets, phones, keyboards, tablets, and bedside tables. Also, clean any surfaces that may have blood, stool, or body fluids on them. Use a household cleaning spray or wipe, according to the label instructions. Labels contain instructions for safe and effective use of the cleaning product including precautions you should take when applying the product, such as wearing gloves and making sure you have good ventilation during use of the product. Monitor your symptoms Seek prompt medical attention if your illness is worsening (e.g., difficulty breathing).Beforeseeking care, call your healthcare provider and tell them that you have, or are being evaluated for, COVID-19. Put on a face mask before you enter the facility. These steps will help the healthcare providers office to keep other people in the office or waiting room from getting infected or exposed. Ask your healthcare provider to call the local or state health department. Persons who are placed under active monitoring or facilitated self- monitoring should follow instructions provided by their local health department or occupational health professionals, as appropriate. When working with your local health department check their available hours. If you have a medical emergency and need to call 911, notify the dispatch personnel that you have, or are being evaluated for COVID-19. If possible, put on a face mask before emergency medical services arrive. Discontinuing home isolation [place] CDC Guideline Home Quarantine /Isolation can be discontinued after 14 days of onset of symptoms . Pending Studies at Discharge: No Stand-Alone Forms: My [facility], Smoking Cessation Medications and DC Order Prescriptions: New doxycycline hyclate 100 mg Capsule 100 mg PO BID 4 Days Qty: 8 RF: 0 furosemide 20 mg Tablet 20 mg PO QAM Qty: 20 RF: 0 potassium chloride [Klor-Con M10] 10 mEq Tablet,Er Particles/Crystals 10 meq PO DAILY Qty: 30 RF: 0 dexamethasone 6 mg tablet 6 mg PO DAILY 4 Days Qty: 4 RF: 0 Continued Breo Ellipta 200-25 mcg/dose Blister With Device 1 inh INHALATION DAILY RF: 0 multivitamin Tablet 1 tab PO QAM RF: 0 propafenone 150 mg Tablet 150 mg PO Q8H RF: 0 gabapentin 600 mg Tablet 300 mg PO HS RF: 0 atorvastatin 20 mg Tablet 20 mg PO QPM RF: 0 metoprolol succinate 50 mg Tablet Extended Release 24 Hr 50 mg PO QAM RF: 0 levothyroxine 88 mcg Tablet 88 mcg PO DAILYBB RF: 0 sertraline [Zoloft] 25 mg Tablet 25 mg PO QAM RF: 0 allopurinol 300 mg Tablet 300 mg PO QAM RF: 0 cholecalciferol (vitamin D3) [Vitamin D3] 2,000 unit Tablet 2,000 unit PO QAM RF: 0 Daliresp 500 mcg Tablet 500 mcg PO DAILY RF: 0 albuterol sulfate 2.5 mg /3 mL (0.083 %) Solution For Nebulization 2.5 mg INHALATION Q6 PRN (Reason: Shortness Of Breath Or Wheezing) RF: 0 Spiriva with HandiHaler 18 mcg capsule, w/inhalation device 1 cap INH DAILY Qty: 30 RF: 3 potassium chloride [Klor-Con M20] 20 mEq tablet,ER particles/crystals 20 meq PO Q OTHER DAY RF: 0 amlodipine [Norvasc] 5 mg Tablet 10 mg PO QAM Qty: 30 RF: 1 bumetanide 1 mg tablet 1 mg PO BID RF: 0 acetaminophen 325 mg Tablet 650 mg PO Q4H PRN (Reason: pain) Qty: 10 RF: 0 Discharge Orders: Discharge Order (Routine); Ordered 06/23/20 Ordered By: Kandy Larson Admission Data Admit Date/Time: 06/17/20 12:40 Attending Provider: Kandy Larson Admit Provider: Knab,Bryant F. Primary Care Provider: Babak Melendez Other Providers: Jai Fonseca ; Bryant Silva Other Interventions: Discharge Summary Assessment (RN) Last Done: 06/23/20 12:55
== END 2020-06-23 13:47 | disposition home health service (06) ==
LOC: ED 09:10 → SUATTDRO 12:40 → 2S 12:40 → 3E 06-21 17:49

== ENCOUNTER 2020-07-05 19:40 | Inpatient (IN) ==
[2020-07-05] MEDS ORDERED: ALBUT/IPRATROP 3MG/0.5MG NEB 3 ML VIAL INH STA (19:59)
[2020-07-05] MEDS ORDERED: ACETAMINOPHEN 1,000 MG/100 ML VIAL IV STA (19:59)
--- NOTE | 2020-07-05 20:08 | Emergency Department Note ---
Impression & Plan SOB (shortness of breath), CHF (congestive heart failure), Fluid overload, Leukocytosis ED Provider Note NAME: DIONNE SAL AGE: 70 SEX: F : 1950 ARRIVES VIA: Ambulance INFORMANT: [Patient][ems] ED PROVIDER(S): [Juan J Escobar MD] CHIEF COMPLAINT: Short of breath HISTORY OF PRESENT ILLNESS: The patient is a 70-year-old female who was discharged from our hospital on the , 11 days ago. She had been in with Covid pneumonia. She had recovered and was discharged. The patient states that in the last week, she has become more short of breath, more fatigued. She has had diarrhea for 2 days and then today, has lower back pain. The back pain is moderate to severe. She was brought by ambulance. Patient states that the ambulance crew increased her oxygen from 4 L to 5 L and this did help her breathing. Her last nebulizer treatment was in the early afternoon, about 6 hours ago. The patient has not had fever, no vomiting. She is coughing but she has COPD and often coughs. She has not had chest pain. She states she just feels awful, she also has noticed some edema of her legs and is concerned for fluid overload. Of note, the patient states that she finished steroids and antibiotics a few days ago REVIEW OF SYSTEMS: See HPI for pertinent positives and negatives. A total of ten systems were reviewed and were otherwise negative. PMHx/PSHx: See Below SOCIAL HISTORY: See Below. PHYSICAL EXAM: GENERAL: Patient is in no acute distress. HEENT: No acute trauma, normocephalic atraumatic, mucous membranes moist, no nasal congestion, no scleral icterus. NECK: No stridor, no adenopathy, no meningismus, trachea is midline. LUNGS: No obvious wheeze, no accessory muscle use, no respiratory distress. Speaks in full sentences. HEART: Regular rate and rhythm, equal radial pulses bilaterally. ABDOMEN: Soft, nontender, bowel sounds positive, no hernias, no peritonitis. EXTREMITIES: No cyanosis, moderate bilateral pedal edema, full range of motion of all the joints without pain or difficulty, no signs for acute trauma. NEUROLOGIC: Oriented x 3, no acute motor or sensory deficits, no focal weakness. SKIN: No rash, no jaundice, no diaphoresis. DIFFERENTIAL DIAGNOSIS: Reactive airway disease, pneumonia, pneumothorax, COPD, CHF, infections, coronavirus, cardiac ischemia, pulmonary embolism, musculoskeletal, gastrointestinal, as well as other pathologies. EMERGENCY DEPARTMENT COURSE/PROCEDURES: ECG: Indication was shortness of breath. The ECG shows a sinus rhythm with some PACs. The rate is 77 there is an incomplete right bundle branch block. There is no PVC. No ST elevation. The QTc is 423. Continuous Cardiac Monitoring: An order was placed for continuous cardiac monitoring. The monitor shows a rate of 74 with normal sinus rhythm. MEDICAL DECISION MAKING: There is a moderate leukocytosis, the patient has a history of the same and as per her history, just finished a course of steroids. Patient is anemic, her hemoglobin is actually slightly below her typical baseline. Hemoglobin was 8.3. There was a normal platelet count. No coagulopathy. There was some renal insufficiency, her creatinine was above her baseline creatinine of about 1.6. Today's value was 2.09. Lactic acid level was not elevated making sepsis less likely. There was no concerning liver enzyme elevation. BNP was elevated at 1200, this is consistent with fluid overload/CHF. Chest film shows some parenchymal congestion consistent with potential fluid overload versus a viral pneumonia. There was no pneumothorax. ECG showed a sinus rhythm, no acute ischemia. Cardiac enzyme testing x1 is not consistent with acute cardiac injury. On exam, the patient seemed to be saturating well on supplemental O2. She did have pedal edema. The patient was given IV Tylenol for complaints of back pain, she received IV Bumex, nitroglycerin paste. She was given a DuoNeb. I think the patient is primarily fluid overloaded. She has gained about 5 pounds or so in the last week. She has edema in her legs which she states is no t typical. Her x-ray and laboratory testing suggest some fluid overload. She is not able to function at home with all of her dyspnea. I do not think she is stable for discharge home. I did speak with the disease case manager rn, the on-call hospitalist has been consulted. I discussed all my findings with the patient. 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 Hx of cholecystectomy S/P cervical spinal fusion S/P wrist surgery Family History Father Trauma Mother Diabetes Cerebral aneurysm Daughter Bipolar 1 disorder Social History Smoking Status: Former smoker Cigarettes Per Day: quit 30 years ago; Second Hand Exposure: No; Hx Alcohol Use: No Hx Substance Use: No Preferred Language: Bolivian Communication Ability: Effective Glove Presser Required: No Beliefs That Will Affect Care: None marital status: Current Living Situation: Family Current Living Situation Comment: daughter, grandson, great grandson, grandaughters How many Children do You have: 1 Feels Safe at Home: Yes Assistive Devices: Walker Allergies Allergies Allergy/AdvReac Type Severity Reaction Status Date / Time adhesive Allergy Severe RED RASH Verified 07/05/20 22:33 latex AdvReac Mild TAPE-SORE Verified 07/05/20 22:33 morphine AdvReac Mild DELUSIONS Verified 07/05/20 22:33 Home Meds Home Medications Medication Instructions Recorded Confirmed Breo Ellipta 1 inh INHALATION DAILY 03/12/18 07/05/20 Daliresp 500 mcg PO DAILY 03/12/18 07/05/20 allopurinol 300 mg PO QAM 03/12/18 07/05/20 atorvastatin 20 mg PO QPM 03/12/18 07/05/20 cholecalciferol (vitamin D3) 2,000 unit PO QAM 03/12/18 07/05/20 [Vitamin D3] levothyroxine 88 mcg PO DAILYBB 03/12/18 07/05/20 metoprolol succinate 50 mg PO QAM 03/12/18 07/05/20 multivitamin 1 tab PO QAM 03/12/18 07/05/20 propafenone 150 mg PO Q8H 03/12/18 07/05/20 albuterol sulfate 2.5 mg INHALATION .Q4-6HRS PRN 08/07/18 07/05/20 potassium chloride [Klor-Con M20] 20 meq PO Q2D 09/27/19 07/05/20 bumetanide 1 mg PO BID 12/02/19 07/05/20 acetaminophen [Acetaminophen Extra 1,000 mg PO Q8H PRN 07/05/20 07/05/20 Strength] amlodipine 10 mg PO QAM 07/05/20 07/05/20 gabapentin See Rx Instructions .ROUTE .COMPLEX 07/05/20 07/05/20 metolazone See Rx Instructions .ROUTE .COMPLEX 07/05/20 07/05/20 sertraline 50 mg PO DAILY 07/05/20 07/05/20 Results & Data (ED) Vital Signs Vital Signs - 24 hr 07/05/20 19:30 07/05/20 19:51 07/05/20 19:54 Temperature 36.9 C Temperature Source Oral Pulse Rate 74 79 76 Pulse Rate [Finger] Pulse Rate from SpO2 Sensor 77 77 Respiratory Rate 20 23 24 Respiratory Effort / Characteristics Non-Labored Spontaneous Respiratory Depth Normal Blood Pressure 159/70 H 159/75 H Blood Pressure Mean 99 97 Blood Pressure Position Sitting Pulse Oximetry 100 100 100 Oxygen Delivery Method Nasal Cannula Oxygen Flow Rate 5 Sepsis Recent Fever Within 48 Hours No Sepsis New/Unexplained Change in Mental Status No Sepsis Action Taken by Nursing No Action Required Oxygen Flow Rate - Titration 4 Pulse Oximetry Post Tiitration 99 07/05/20 20:00 07/05/20 20:01 07/05/20 20:10 Temperature Temperature Source Pulse Rate 75 77 77 Pulse Rate [Finger] Pulse Rate from SpO2 Sensor 75 77 77 Respiratory Rate 20 22 22 Respiratory Effort / Characteristics Respiratory Depth Blood Pressure 174/78 H Blood Pressure Mean 122 Blood Pressure Position Pulse Oximetry 100 100 100 Oxygen Delivery Method Oxygen Flow Rate Sepsis Recent Fever Within 48 Hours Sepsis New/Unexplained Change in Mental Status Sepsis Action Taken by Nursing Oxygen Flow Rate - Titration Pulse Oximetry Post Tiitration 07/05/20 20:20 07/05/20 20:25 07/05/20 20:30 Temperature Temperature Source Pulse Rate 76 72 Pulse Rate [Finger] Pulse Rate from SpO2 Sensor 76 72 Respiratory Rate 21 19 Respiratory Effort / Characteristics Respiratory Depth Blood Pressure 147/61 H Blood Pressure Mean 108 Blood Pressure Position Pulse Oximetry 100 99 100 Oxygen Delivery Method Nasal Cannula Oxygen Flow Rate 4 Sepsis Recent Fever Within 48 Hours Sepsis New/Unexplained Change in Mental Status Sepsis Action Taken by Nursing Oxygen Flow Rate - Titration Pulse Oximetry Post Tiitration 07/05/20 20:40 07/05/20 20:50 07/05/20 20:51 Temperature Temperature Source Pulse Rate 74 74 Pulse Rate [Finger] 75 Pulse Rate from SpO2 Sensor 74 74 Respiratory Rate 20 20 Respiratory Effort / Characteristics Non-Labored Spontaneous Respiratory Depth Blood Pressure Blood Pressure Mean Blood Pressure Position Pulse Oximetry 100 100 100 Oxygen Delivery Method Nasal Cannula Oxygen Flow Rate 4 Sepsis Recent Fever Within 48 Hours Sepsis New/Unexplained Change in Mental Status Sepsis Action Taken by Nursing Oxygen Flow Rate - Titration Pulse Oximetry Post Tiitration 07/05/20 21:00 07/05/20 21:01 07/05/20 21:10 Temperature Temperature Source Pulse Rate 72 77 75 Pulse Rate [Finger] Pulse Rate from SpO2 Sensor 71 78 75 Respiratory Rate 20 19 24 Respiratory Effort / Characteristics Respiratory Depth Blood Pressure 160/72 H Blood Pressure Mean 101 Blood Pressure Position Pulse Oximetry 100 100 100 Oxygen Delivery Method Oxygen Flow Rate Sepsis Recent Fever Within 48 Hours Sepsis New/Unexplained Change in Mental Status Sepsis Action Taken by Nursing Oxygen Flow Rate - Titration Pulse Oximetry Post Tiitration 07/05/20 21:20 07/05/20 21:30 07/05/20 21:31 Temperature Temperature Source Pulse Rate 73 72 73 Pulse Rate [Finger] Pulse Rate from SpO2 Sensor 73 72 72 Respiratory Rate 20 18 18 Respiratory Effort / Characteristics Respiratory Depth Blood Pressure 181/87 H Blood Pressure Mean 105 Blood Pressure Position Pulse Oximetry 100 100 100 Oxygen Delivery Method Oxygen Flow Rate Sepsis Recent Fever Within 48 Hours Sepsis New/Unexplained Change in Mental Status Sepsis Action Taken by Nursing Oxygen Flow Rate - Titration Pulse Oximetry Post Tiitration 07/05/20 21:40 07/05/20 21:41 07/05/20 21:50 Temperature Temperature Source Pulse Rate 76 74 73 Pulse Rate [Finger] Pulse Rate from SpO2 Sensor 74 74 73 Respiratory Rate 18 21 21 Respiratory Effort / Characteristics Respiratory Depth Blood Pressure 146/83 H Blood Pressure Mean 116 Blood Pressure Position Pulse Oximetry 100 100 100 Oxygen Delivery Method Oxygen Flow Rate Sepsis Recent Fever Within 48 Hours Sepsis New/Unexplained Change in Mental Status Sepsis Action Taken by Nursing Oxygen Flow Rate - Titration Pulse Oximetry Post Tiitration 07/05/20 22:00 07/05/20 22:01 07/05/20 22:10 Temperature Temperature Source Pulse Rate 72 73 75 Pulse Rate [Finger] Pulse Rate from SpO2 Sensor 72 72 72 Respiratory Rate 19 19 21 Respiratory Effort / Characteristics Respiratory Depth Blood Pressure 166/71 H Blood Pressure Mean 85 Blood Pressure Position Pulse Oximetry 99 99 100 Oxygen Delivery Method Oxygen Flow Rate Sepsis Recent Fever Within 48 Hours Sepsis New/Unexplained Change in Mental Status Sepsis Action Taken by Nursing Oxygen Flow Rate - Titration Pulse Oximetry Post Tiitration 07/05/20 22:20 07/05/20 22:30 07/05/20 22:40 Temperature Temperature Source Pulse Rate 75 75 Pulse Rate [Finger] Pulse Rate from SpO2 Sensor 75 75 73 Respiratory Rate 21 16 Respiratory Effort / Characteristics Respiratory Depth Blood Pressure 198/81 H Blood Pressure Mean 103 Blood Pressure Position Pulse Oximetry 100 99 100 Oxygen Delivery Method Oxygen Flow Rate Sepsis Recent Fever Within 48 Hours Sepsis New/Unexplained Change in Mental Status Sepsis Action Taken by Nursing Oxygen Flow Rate - Titration Pulse Oximetry Post Tiitration 07/05/20 22:50 07/05/20 23:00 07/05/20 23:01 Temperature Temperature Source Pulse Rate 72 75 73 Pulse Rate [Finger] Pulse Rate from SpO2 Sensor 72 73 Respiratory Rate Respiratory Effort / Characteristics Respiratory Depth Blood Pressure 202/117 H Blood Pressure Mean 161 Blood Pressure Position Pulse Oximetry 100 100 Oxygen Delivery Method Oxygen Flow Rate Sepsis Recent Fever Within 48 Hours Sepsis New/Unexplained Change in Mental Status Sepsis Action Taken by Nursing Oxygen Flow Rate - Titration Pulse Oximetry Post Tiitration 07/05/20 23:10 07/05/20 23:18 Temperature Temperature Source Pulse Rate 73 74 Pulse Rate [Finger] Pulse Rate from SpO2 Sensor 71 74 Respiratory Rate Respiratory Effort / Characteristics Respiratory Depth Blood Pressure 157/68 H Blood Pressure Mean 80 Blood Pressure Position Pulse Oximetry 100 100 Oxygen Delivery Method Oxygen Flow Rate Sepsis Recent Fever Within 48 Hours Sepsis New/Unexplained Change in Mental Status Sepsis Action Taken by Nursing Oxygen Flow Rate - Titration Pulse Oximetry Post Tiitration Home Medications Current Medication List: was personally reviewed by me Laboratory Data Attestation: I reviewed the patient's lab results. Result diagrams: 07/05/20 20:06 07/05/20 20:06 Lab Results 07/05/20 07/05/20 07/05/20 Range/Units 20:06 20:06 20:06 WBC 14.82 H (4.8-10.8) K/uL RBC 2.90 L (4.2-5.4) M/uL Hgb 8.3 L (12.0-16.0) g/dL Hct 27.7 L (37-47) % MCV 95.5 (80-100) fL MCH 28.6 (25-34) pg MCHC 30.0 L (32-36) g/dL RDW Std Deviation 56.6 H (36.4-46.3) fL RDW Coeff of Arabella 16.2 H (11.5-14.5) % Plt Count 203 (130-400) K/uL MPV 9.2 (7.4-10.4) fL Immature Gran % (Auto) 0.1 % Neut % (Auto) 80.9 % Lymph % (Auto) 11.5 % Atkinson % (Auto) 5.7 % Eos % (Auto) 1.7 % Baso % (Auto) 0.1 % Neut # (Auto) 11.99 H (1.4-6.5) K/uL Lymph # (Auto) 1.70 (1.2-3.4) K/uL Atkinson # (Auto) 0.85 H (0.11-0.59) K/uL Eos # (Auto) 0.25 (0-0.5) K/uL Baso # (Auto) 0.01 (0-0.2) K/uL Immature Gran # (Auto) 0.02 (0.00-0.02) K/uL PT 10.9 (9.0-12.0) Seconds INR 1.0 (0.9-1.1) APTT 25.0 (21.0-31.0) Seconds PTT Ratio 0.9 Sodium 141 (136-145) mmol/L Potassium 3.6 (3.5-5.1) mmol/L Chloride 98 (98-107) mmol/L Carbon Dioxide 40 H (21-32) mmol/L Anion Gap 3.0 (3-11) BUN 35 H (7-18) mg/dl Creatinine 2.09 H (0.6-1.2) mg/dl Est Cr Clr Drug Dosing Not Reportable Est GFR ( Amer) 26.7 Est GFR (Non-Af Amer) 23.1 BUN/Creatinine Ratio 16.7 (10-20) Glucose 118 H (70-99) mg/dl Lactate (0.4-2.0) mmol/L Calcium 10.1 (8.5-10.1) mg/dl Magnesium 1.8 (1.8-2.4) mg/dl Total Bilirubin 0.2 (0.2-1) mg/dl AST 11 L (15-37) U/L ALT 13 (12-78) U/L Alkaline Phosphatase 74 (45-117) U/L Troponin I < 0.015 (0-0.045) ng/ml NT-Pro-B Natriuret Pep 1243 H (0-900) pg/ml Total Protein 7.2 (6.4-8.2) gm/dl Albumin 2.2 L (3.4-5.0) gm/dl Globulin 5.0 H (2.5-4.0) gm/dl Albumin/Globulin Ratio 0.4 L (0.9-2) COVID-19 Eval Order SARS-CoV-2, RNA, NAAT (NEGATIVE) 07/05/20 07/05/20 07/05/20 Range/Units 20:06 20:20 20:20 WBC (4.8-10.8) K/uL RBC (4.2-5.4) M/uL Hgb (12.0-16.0) g/dL Hct (37-47) % MCV (80-100) fL MCH (25-34) pg MCHC (32-36) g/dL RDW Std Deviation (36.4-46.3) fL RDW Coeff of Arabella (11.5-14.5) % Plt Count (130-400) K/uL MPV (7.4-10.4) fL Immature Gran % (Auto) % Neut % (Auto) % Lymph % (Auto) % Atkinson % (Auto) % Eos % (Auto) % Baso % (Auto) % Neut # (Auto) (1.4-6.5) K/uL Lymph # (Auto) (1.2-3.4) K/uL Atkinson # (Auto) (0.11-0.59) K/uL Eos # (Auto) (0-0.5) K/uL Baso # (Auto) (0-0.2) K/uL Immature Gran # (Auto) (0.00-0.02) K/uL PT (9.0-12.0) Seconds INR (0.9-1.1) APTT (21.0-31.0) Seconds PTT Ratio Sodium (136-145) mmol/L Potassium (3.5-5.1) mmol/L Chloride (98-107) mmol/L Carbon Dioxide (21-32) mmol/L Anion Gap (3-11) BUN (7-18) mg/dl Creatinine (0.6-1.2) mg/dl Est Cr Clr Drug Dosing Est GFR ( Amer) Est GFR (Non-Af Amer) BUN/Creatinine Ratio (10-20) Glucose (70-99) mg/dl Lactate 0.5 (0.4-2.0) mmol/L Calcium (8.5-10.1) mg/dl Magnesium (1.8-2.4) mg/dl Total Bilirubin (0.2-1) mg/dl AST (15-37) U/L ALT (12-78) U/L Alkaline Phosphatase (45-117) U/L Troponin I (0-0.045) ng/ml NT-Pro-B Natriuret Pep (0-900) pg/ml Total Protein (6.4-8.2) gm/dl Albumin (3.4-5.0) gm/dl Globulin (2.5-4.0) gm/dl Albumin/Globulin Ratio (0.9-2) COVID-19 Eval Order Covid19 IDNow [facility] SARS-CoV-2, RNA, NAAT NEGATIVE (NEGATIVE) Administered Medications Discontinued Medications Albuterol (Albut/Ipratrop 3mg/0.5mg Neb 3 Ml Vial) 3 ml INH NOW STA Stop: 07/05/20 20:00 Last Admin: 07/05/20 20:50 Dose: 3 ml Documented by: [id number] Acetaminophen (Ofirmev) 1,000 mg in 100 mls @ 400 mls/hr IV NOW STA Stop: 07/05/20 20:13 Last Infusion: 07/05/20 21:12 Dose: 0 mls/hr Documented by: [id number] Admin: 07/05/20 20:23 Dose: 400 mls/hr Documented by: [id number] Bumetanide 1 mg/ Syringe 4 mls @ 4 mls/min IV NOW STA Stop: 07/05/20 20:52 Last Admin: 07/05/20 21:38 Dose: 4 mls/min Documented by: [id number] Nitroglycerin (Nitroglycerin 2% Ointment 30gm Tube) 2 inch EXT NOW STA Stop: 07/05/20 21:34 Last Admin: 07/05/20 21:38 Dose: 2 inch Documented by: [id number] Imaging Data Attestation: I personally reviewed and interpreted this imaging study as follows: My Impression: Chest x-ray: There was some parenchymal congestion bilaterally consistent with potential fluid overload versus viral pneumonia. There was no pneumothorax. Discharge Plan Visit Data Chief Complaint: Shortness of Breath/Dyspnea ED Provider: Juan J Escobar Discharge Problem: SOB (shortness of breath), CHF (congestive heart failure), Fluid overload, Leukocytosis Patient Disposition: Admitted As Inpatient Condition: Fair Forms Stand Alone Forms: My [facility], Virtual Emergency Department, Important Visit Information Prescriptions Prescriptions: No Action Breo Ellipta 200-25 mcg/dose Blister With Device 1 inh INHALATION DAILY RF: 0 multivitamin Tablet 1 tab PO QAM RF: 0 propafenone 150 mg Tablet 150 mg PO Q8H RF: 0 atorvastatin 20 mg Tablet 20 mg PO QPM RF: 0 metoprolol succinate 50 mg Tablet Extended Release 24 Hr 50 mg PO QAM RF: 0 levothyroxine 88 mcg Tablet 88 mcg PO DAILYBB RF: 0 allopurinol 300 mg Tablet 300 mg PO QAM RF: 0 cholecalciferol (vitamin D3) [Vitamin D3] 2,000 unit Tablet 2,000 unit PO QAM RF: 0 Daliresp 500 mcg Tablet 500 mcg PO DAILY RF: 0 albuterol sulfate 2.5 mg /3 mL (0.083 %) Solution For Nebulization 2.5 mg INHALATION .Q4-6HRS PRN (Reason: Shortness Of Breath Or Wheezing) RF: 0 potassium chloride [Klor-Con M20] 20 mEq tablet,ER particles/crystals 20 meq PO Q2D RF: 0 bumetanide 1 mg tablet 1 mg PO BID RF: 0 metolazone 2.5 mg tablet See Rx Instructions .ROUTE .COMPLEX RF: 0 gabapentin 600 mg tablet See Rx Instructions .ROUTE .COMPLEX RF: 0 sertraline 50 mg tablet 50 mg PO DAILY RF: 0 acetaminophen [Acetaminophen Extra Strength] 500 mg Tablet 1,000 mg PO Q8H PRN (Reason: Pain) RF: 0 amlodipine 5 mg tablet 10 mg PO QAM RF: 0 Referrals Referrals: Babak Melednez MD [Primary Care Provider] - Discharge Problem: CHF (congestive heart failure) Qualifiers: Heart failure type: unspecified Heart failure chronicity: acute on chronic Qualified Code(s): I50.9 - Heart failure, unspecified Fluid overload Qualifiers: Hypervolemia type: unspecified Qualified Code(s): E87.70 - Fluid overload, unspecified Leukocytosis Qualifiers: Leukocytosis type: unspecified Qualified Code(s): D72.829 - Elevated white blood cell count, unspecified
[2020-07-05 20:19] LABS: Basophils # (auto) 0.01 K/uL (0-0.2); Basophils % (auto) 0.1 %; Eosinophils # (auto) 0.25 K/uL (0-0.5); Eosinophils % (auto) 1.7 %; Hematocrit (blood only) 27.7 % (37-47); Hemoglobin 8.3 g/dL (12.0-16.0); Immature Granulocytes # (auto) 0.02 K/uL (0.00-0.02); Immature Granulocytes % (auto) 0.1 %; Lymphocytes % (auto) 11.5 %; Mean Corpuscular Hemoglobin 28.6 pg (25-34); Mean Corpuscular Volume 95.5 fL (80-100); Mean Platelet Volume 9.2 fL (7.4-10.4); Monocytes # (auto) 0.85 K/uL (0.11-0.59); Monocytes % (auto) 5.7 %; Neutrophils # (auto) 11.99 K/uL (1.4-6.5); Neutrophils % (auto) 80.9 %; Platelet Count 203 K/uL (130-400); RDW Coefficient of Variation 16.2 % (11.5-14.5); RDW Standard Deviation 56.6 fL (36.4-46.3); White Blood Count 14.82 K/uL (4.8-10.8)
[2020-07-05 20:37] LABS: Alanine Aminotransferase 13 U/L (12-78); Albumin Level 2.2 gm/dl (3.4-5.0); Aspartate Aminotransferase 11 U/L (15-37); BUN Creatinine Ratio 16.7 (10-20); Blood Urea Nitrogen 35 mg/dl (7-18); Calcium 10.1 mg/dl (8.5-10.1); Carbon Dioxide 40 mmol/L (21-32); Chloride 98 mmol/L (98-107); Est GFR (African American) 26.7; Est GFR (Non-African American) 23.1; Glucose 118 mg/dl (70-99); Magnesium 1.8 mg/dl (1.8-2.4); Potassium 3.6 mmol/L (3.5-5.1); Sodium 141 mmol/L (136-145)
[2020-07-05 20:42] LABS: Albumin Globulin Ratio 0.4 (0.9-2); Alkaline Phosphatase 74 U/L (45-117); Bilirubin,Total 0.2 mg/dl (0.2-1); NT Pro B Type Natriuretic Pept 1243 pg/ml (0-900); Total Protein 7.2 gm/dl (6.4-8.2); Troponin I < 0.015 ng/ml (0-0.045)
[2020-07-05 20:45] LABS: Partial Thromboplastin Ratio 0.9; Prothrombin Time 10.9 Seconds (9.0-12.0)
[2020-07-05] MEDS ORDERED: BUMETANIDE 1 MG in SYRINGE 0 ML IV STA (20:51)
[2020-07-05] MEDS ORDERED: NITROGLYCERIN 2% OINTMENT 30GM TUBE EXT STA (21:33)
--- NOTE | 2020-07-06 00:02 | History and Physical Report ---
DATE OF ADMISSION: 07/05/2020 CHIEF COMPLAINT: Shortness of breath. HISTORY OF PRESENT ILLNESS: A 70-year-old female with past medical history significant for severe COPD, chronic respiratory failure on 4 liters oxygen all the time, hyperlipidemia, hypothyroidism, history of chronic kidney disease stage III, hypertension, right sided heart failure, morbid obesity, GERD, iron deficiency anemia, depression with anxiety, spinal stenosis questionable history of atrial fibrillation who was recently diagnosed with COVID pneumonia on 06/17/2020, he was admitted to the hospital. Received steroids and remdesivir and did fine and discharged home, comes back with shortness of breath and weight gain. The patient says last couple of days, feeling short of breath more than usual. She has chronic cough. She has couple of episodes of diarrhea, but this seems to be chronic and denies any fever, chills, no loss of sense of smell or taste. Appetite is okay. No chest pain, no nausea, no vomiting, no headache. She says she has blurred visions going on for some time. No earache, no runny nose, no sore throat, no difficulty swallowing. Her stools are always black because of iron pills. Normal bladder movements. Currently, resting comfortably and hemodynamically stable. She is currently requiring 5 liters of oxygen. ALLERGIES: No known drug allergies. PAST MEDICAL HISTORY: As mentioned above. PAST SURGICAL HISTORY: Colonoscopy, spine fusion surgery, appendectomy, cholecystectomy, repair of the wrist fracture or dislocation, shoulder surgery, right shoulder replacement, right total hip replacement. MEDICATIONS: The patient is on Tylenol 1000 mg p.o. q. 8 hours p.r.n., albuterol 2.5 mg inhalation q. 4 hours p.r.n., allopurinol 300 mg p.o. a.m., amlodipine 10 mg p.o. a.m., atorvastatin 20 mg p.o. p.m., Breo Ellipta 1 inhalation daily, Bumex 1 mg p.o. b.i.d., vitamin D 2000 units p.o. a.m., Daliresp 500 mcg p.o. daily, gabapentin as directed, levothyroxine 88 mcg p.o. daily, metolazone 2.5 mg 1 tablet on Wednesday and Wednesday; metoprolol succinate 50 mg p.o. a.m., multivitamins 1 tablet p.o. a.m., potassium chloride 20 mEq every other day, propafenone 150 mg p.o. q. 8 hours, sertraline 50 mg p.o. daily. FAMILY HISTORY: Significant for mother had diabetes and heart disorder. Sister has heart disorder. SOCIAL HISTORY: , lives with her daughter. Quit smoking in 2009, smoked on average of 1 pack a day for 35 years. No alcohol, no drug use. REVIEW OF SYMPTOMS: As per HPI. Rest of review of symptoms negative. PHYSICAL EXAMINATION: GENERAL: The patient is of moderate build, currently not in acute distress. VITAL SIGNS: Temperature 36.9, pulse 76, respiratory rate 18, blood pressure 181/87, oxygen 100% on 4 liters. HEENT: No pallor, no icterus. Oral mucosa moist. NECK: No neck masses seen. CARDIOVASCULAR: S1, S2 heard, regular rate and rhythm, no murmur, no gallop. RESPIRATORY SYSTEM: Normal AP diameter. No accessory muscle use. Mild bibasilar rhonchi heard. No wheezing. ABDOMEN: Soft, bowel sounds present, nontender. No distention. CENTRAL NERVOUS SYSTEM: Cranial nerves II-XII grossly intact, nonfocal. EXTREMITIES: Bilateral lower extremity pedal edema present, no erythema seen. LABORATORY DATA: WBC 14.8, hemoglobin 8.3, hematocrit 27.7, platelets 203. PT 10.9, INR 1, APTT 25. Sodium 141, potassium 3.6, chloride 98, bicarbonate 40, BUN 35, creatinine 2.09, serum glucose 118, lactate 0.5, calcium 10.1, magnesium 1.8, total bilirubin 0.2, AST 11, ALT 13, alkaline phosphatase 74. Troponin I less than 0.015. BNP 1243. SARS-CoV-2 RNA negative. IMAGING DATA: Chest x-ray, pulmonary congestion seen. EKG: Sinus rhythm with PACs, incomplete right bundle branch block at a rate of 77. ASSESSMENT AND PLAN: This is a 70-year-old female who presents with shortness of breath. 1. Short of breath. Most likely acute on chronic right sided heart failure, diastolic CHF, BNP is elevated at 1243. Chest x-ray, bilateral congestion. The patient also gaining weight at home, she thinks she has gained a lot of weight, about 5-10 pounds. The patient is on Bumex 1 mg p.o. b.i.d. at home, received Bumex 1 mg IV in the ER, will give her [address] of [address] and place on IV Lasix 40 b.i.d. Daily weights, I's and O's. Niño catheter and echocardiogram, consult cardiology in a.m. for further recommendations. 2. History of chronic obstructive pulmonary disease, Chronic respiratory failure currently does not seem to be in exacerbation, on chronically on 4 liters oxygen all the time. Continue home inhalers and nebs. Close monitor. 3. History of iron deficiency anemia, anemia of chronic kidney disease. Hemoglobin 8.3, not very off from her baseline, baseline is like from 8.5 around 10, could be from the volume overload. We will follow the stool for Hemoccult and monitor the labs. 4. [place] on chronic kidney disease stage III. Baseline creatinine around 1.6, present creatinine of about 2.09. Getting diuretics. We will follow the labs in a.m. Could be cardiorenal. 5. Recent diagnosis of COVID pneumonia. The patient was diagnosed with COVID on 06/17/2020. She has symptoms for at least 4 days prior to that and currently COVID-19 test in the ER is negative. She seems out of the quarantine period and also covid test today is negative.we will monitor. 6. History of hyperlipidemia. Continue statin. 7. History of gout. Continue allopurinol. 8. History of depression. Continue Zoloft. 9. History of hypothyroidism. Continue Synthroid. 10. History of hypertension, on Toprol-XL and amlodipine and getting diuretics. We will monitor the blood pressure. 11. History of questionable atrial fibrillation as per cardiology notes in 2017. No records available for this, not on anticoagulation secondary to questionable GI bleeding. The patient on Toprol-XL and Rythmol, will monitor in tele floor. Await cardiac input. 12. Deep venous thrombosis prophylaxis. Placed on heparin subQ.Will stop hep if Hemoccult is positive. 13. Disposition, closely monitor in tele floor. PT/OT prior to discharge. Social service to help with discharge planning. QUANG
[2020-07-06] MEDS ORDERED: ACETAMINOPHEN 325 MG TAB PO PRN (02:09)
[2020-07-06] MEDS ORDERED: NITROGLYCERIN SL 0.4 MG/TAB TAB SL PRN (02:09)
[2020-07-06] MEDS ORDERED: ONDANSETRON INJ 2 MG/ML 2 ML VIAL IV PRN (02:09)
[2020-07-06] MEDS ORDERED: FUROSEMIDE 40 MG/4 ML VIAL IV STA (02:09)
[2020-07-06] MEDS ORDERED: FUROSEMIDE 20 MG in SYRINGE 0 ML IV ONE (02:30)
[2020-07-06] MEDS: PROPAFENONE HCL 150 MG TABLET PO SCH ×3 (06:15→21:11)
[2020-07-06] MEDS: LEVOTHYROXINE SODIUM 88 MCG TABLET PO SCH (06:15)
[2020-07-06 07:14] LABS: Basophils # (auto) 0.01 K/uL (0-0.2); Basophils % (auto) 0.1 %; Eosinophils # (auto) 0.24 K/uL (0-0.5); Eosinophils % (auto) 1.5 %; Hematocrit (blood only) 27.7 % (37-47); Hemoglobin 8.5 g/dL (12.0-16.0); Immature Granulocytes # (auto) 0.04 K/uL (0.00-0.02); Immature Granulocytes % (auto) 0.2 %; Lymphocytes # (auto) 1.27 K/uL (1.2-3.4); Lymphocytes % (auto) 7.7 %; Mean Corpuscular Hemoglobin 28.9 pg (25-34); Mean Corpuscular Hgb Conc 30.7 g/dL (32-36); Mean Corpuscular Volume 94.2 fL (80-100); Mean Platelet Volume 9.4 fL (7.4-10.4); Monocytes # (auto) 0.95 K/uL (0.11-0.59); Monocytes % (auto) 5.8 %; Neutrophils # (auto) 13.89 K/uL (1.4-6.5); Neutrophils % (auto) 84.7 %; Platelet Count 217 K/uL (130-400); RDW Coefficient of Variation 16.3 % (11.5-14.5); Red Blood Count 2.94 M/uL (4.2-5.4)
--- NOTE | 2020-07-06 07:23 | XRay Report ---
XR chest 1V portable CLINICAL HISTORY: Shortness of breath COMPARISON STUDY: 06/20/2020 FINDINGS: The heart is enlarged. There is bilateral interstitial thickening, perhaps minimally more p rominent than to the preceding study. There is no lobar consolidation. There are no large pleural eff usions. There are postsurgical changes of a right shoulder arthroplasty. There is evidence for prior vertebroplasty.[ IMPRESSION: Cardiomegaly and interstitial thickening, perhaps minimally more prominent than on the pr eceding study. Chronic interstitial lung disease is suspected. Superimposed mild pulmonary vascular c ongestion or a superimposed interstitial infectious process cannot be excluded. No evidence of lobar consolidation ACT 112: Negative or not required by law. Electronically signed by: Fox Garcia M.D. 07/06/2020 7:21 AM
[2020-07-06] MEDS ORDERED: PERFLUTREN LIPID MICROSPHERE (DEFINITY) IV ONE (07:26)
[2020-07-06 07:47] LABS: BUN Creatinine Ratio 19.5 (10-20); Calcium 10.2 mg/dl (8.5-10.1); Creatinine Clr Calc Pharmacy 40.5 ml/min; Est GFR (African American) 40.2; Est GFR (Non-African American) 34.7; Magnesium 1.5 mg/dl (1.8-2.4); Potassium 3.3 mmol/L (3.5-5.1)
[2020-07-06] MEDS: CHOLECALCIFEROL 1,000 UNITS 25 MCG TAB PO SCH (08:16)
[2020-07-06] MEDS: SERTRALINE HCL 50 MG TABLET PO SCH (08:17)
[2020-07-06] MEDS: ROFLUMILAST 500 MCG TAB PO SCH (08:17)
[2020-07-06] MEDS: allopurinoL 300 MG TAB PO SCH (08:17)
[2020-07-06] MEDS: MULTIVITAMIN TAB PO SCH (08:17)
[2020-07-06] MEDS: METOPROLOL SUCC 50MG EXT REL TAB PO SCH (08:17)
[2020-07-06] MEDS: amLODIPine BESYLATE 5 MG TAB PO SCH (08:18)
[2020-07-06] MEDS: FUROSEMIDE 40 MG in SYRINGE 0 ML IV SCH ×2 (08:18→18:37)
[2020-07-06] MEDS: ENOXAPARIN INJ 40 MG/0.4 ML SYR SQ SCH (08:18)
[2020-07-06] MEDS: FLUTICASONE/VILANTEROL 200/25MCG 14 PUFFS/INHALER INH SCH (08:19)
[2020-07-06] MEDS ORDERED: POTASSIUM CHLORIDE CRTAB 20 MEQ TABCR PO SCH (09:00)
[2020-07-06] MEDS ORDERED: FUROSEMIDE 40 MG/4 ML VIAL IV SCH (09:00)
[2020-07-06] MEDS: traMADol HCL 50 MG TABLET PO PRN ×2 (10:23→18:37)
--- NOTE | 2020-07-06 11:22 | Cardiology Consultation ---
Date of Consultation July 06, 2020 Assessment & Plan (1) SOB (shortness of breath): (2) Heart failure, diastolic, with acute decompensation: (3) PAF (paroxysmal atrial fibrillation): (4) Chronic respiratory failure with hypoxia: (5) CKD (chronic kidney disease): (6) COPD (chronic obstructive pulmonary disease): Complex 70-year-old patient admitted with multifactorial dyspnea on exertion secondary to recent COVID-19 pneumonia, mild acute on chronic diastolic heart failure, COPD with chronic hypoxia, and chronic anemia. Agree with continued IV diuretic therapy with repeat labs in AM. Continue metolazone on Mondays and Fridays. Follow daily weight, fluid balance, GFR, and electrolytes. Replace potassium today as indicated. In regard to patient's history of atrial fibrillation, she remains in sinus rhythm with PACs today. Continue propafenone as previously ordered. Per review of records, anticoagulation was held in the past due to chronic anemia, peptic ulcer disease, and GI blood loss. Repeat echocardiogram reviewed demonstrating preserved to borderline hyperdy namic LV systolic function with mild diastolic dysfunction. There is no evidence of pulmonary hypertension. History of Present Illness Reason for Consultation: SOB, heart failure Requesting Physician: Dr. Frias Attending Physician: Kandy Larson MD History of Present Illness 70-year-old female presented to the emergency department with shortness of breath. Diagnosed with COVID-19 pneumonia 06/17/2020. She was admitted to the hospital treated with remdesivir and corticosteroids. Recovered well and discharged home. Reports cough and shortness of breath since discharge. Weight gain and edema also noted. Came back to the ER due to progressive dyspnea. Treated with IV diuretic therapy. Urine output was not recorded however weight is elevated when compared to recent discharge. Patient feeling better since admission. Tolerating IV diuretic therapy with mild improvement of respiratory status. Telemetry demonstrates sinus rhythm with premature atrial complexes. Carries a history of paroxysmal atrial fibrillation chronically maintained in sinus rhythm with propafenone. She is not anticoagulated due to chart history of GI blood loss, chronic anemia, and peptic ulcer disease. Allergies Allergy/AdvReac Type Severity Reaction Status Date / Time adhesive Allergy Severe RED RASH Verified 07/05/20 22:33 latex AdvReac Mild TAPE-SORE Verified 07/05/20 22:33 morphine AdvReac Mild DELUSIONS Verified 07/05/20 22:33 Home Medications Medication Instructions Recorded Confirmed Type Breo Ellipta 1 inh INHALATION DAILY 03/12/18 07/05/20 History Daliresp 500 mcg PO DAILY 03/12/18 07/05/20 History allopurinol 300 mg PO QAM 03/12/18 07/05/20 History atorvastatin 20 mg PO QPM 03/12/18 07/05/20 History cholecalciferol (vitamin D3) 2,000 unit PO QAM 03/12/18 07/05/20 History [Vitamin D3] levothyroxine 88 mcg PO DAILYBB 03/12/18 07/05/20 History metoprolol succinate 50 mg PO QAM 03/12/18 07/05/20 History multivitamin 1 tab PO QAM 03/12/18 07/05/20 History propafenone 150 mg PO Q8H 03/12/18 07/05/20 History albuterol sulfate 2.5 mg INHALATION .Q4-6HRS PRN 08/07/18 07/05/20 History potassium chloride [Klor-Con M20] 20 meq PO Q2D 09/27/19 07/05/20 History bumetanide 1 mg PO BID 12/02/19 07/05/20 History acetaminophen [Acetaminophen Extra 1,000 mg PO Q8H PRN 07/05/20 07/05/20 History Strength] amlodipine 10 mg PO QAM 07/05/20 07/05/20 History gabapentin See Rx Instructions .ROUTE .COMPLEX 07/05/20 07/05/20 History metolazone See Rx Instructions .ROUTE .COMPLEX 07/05/20 07/05/20 History sertraline 50 mg PO DAILY 07/05/20 07/05/20 History Patient History Medical History Asthma Chronic respiratory failure with hypoxia CKD (chronic kidney disease), stage III COPD (chronic obstructive pulmonary disease) Depression Dyslipidemia GERD (gastroesophageal reflux disease) Hypothyroidism EVONNE (iron deficiency anemia) Lumbar spinal stenosis Morbid obesity Obesity hypoventilation syndrome Surgical History History of appendectomy 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 Hx of cholecystectomy S/P cervical spinal fusion S/P wrist surgery Family History Father Trauma Mother Diabetes Cerebral aneurysm Daughter Bipolar 1 disorder Social History Smoking Status: Former smoker Cigarettes Per Day: quit 30 years ago; Second Hand Exposure: No; Hx Alcohol Use: No Hx Substance Use: No Preferred Language: Armenian Communication Ability: Effective Window Caser Required: No Beliefs That Will Affect Care: None marital status: Current Living Situation: Family Current Living Situation Comment: daughter, grandson, great grandson, grandaughters How many Children do You have: 1 Feels Safe at Home: Yes Safety Concerns: Feels Safe At This Time Assistive Devices: Oxygen - Continuous Review of Systems Review of Systems: All systems reviewed & are unremarkable except as noted in HPI & below Physical Exam Constitutional: well developed, well nourished and + obese; no acute distress Respiratory: no respiratory distress, no labored breathing and no retractions Auscultation: + crackles (Right base); no rhonchi, no wheezes and no pleural rub Cardiovascular: Rate/Rhythm: regular rhythm Heart Sounds: normal S1 and normal S2; no murmur and no cardiac rub Vessels: no JVD and no carotid bruit Extremities: + edema (1+ bilateral pedal and ankle) Gastrointestinal (Abdomen): Inspection/Auscultation: normal bowel sounds; abdomen not distended Percussion/Palpation: abdomen soft; abdomen nontender, no guarding and abdomen not rigid Skin: no rashes, warm and dry Neurologic: CN's II-XI intact bilaterally and moves all extremities; no focal motor deficits Results & Data ([facility]) Vital Signs (Past 12 Hours) Vital Signs Temp Pulse Pulse Resp BP BP Pulse Ox 07/06/20 08:13 37.1 C 91 H 20 143/76 H 97 07/06/20 04:18 36.8 C 80 18 150/78 H 100 07/06/20 00:15 72 18 145/55 H 98 07/05/20 23:18 74 157/68 H 100 07/05/20 23:10 73 100 Diagnostic Findings Echocardiogram demonstrates preserved LV systolic function, EF 60-65%, grade 1 diastolic dysfunction. Normal right ventricular size and function. No evidence of pulmonary hypertension. (1) CKD (chronic kidney disease) Chronic kidney disease stage: unspecified stage Qualified Code(s): N18.9 - Chronic kidney disease, unspecified
--- NOTE | 2020-07-06 13:32 | Electrocardiogram Report ---
Test Reason : Blood Pressure : / mmHG Vent. Rate : 077 BPM Atrial Rate : 077 BPM P-R Int : 194 ms QRS Dur : 106 ms QT Int : 374 ms P-R-T Axes : 032 067 075 degrees QTc Int : 423 ms Sinus rhythm with Premature atrial complexes Incomplete right bundle branch block Nonspecific ST abnormality Abnormal ECG When compared with ECG of 17-JUN-2020 09:15, Premature atrial complexes are now Present Confirmed by Charlie Amanda ([id number]) on 07/06/2020 1:31:52 PM Referred By: REFERRED SELF Confirmed By:Charlie Amanda
[2020-07-06] MEDS: ALBUTEROL 0.083% NEBU SOLN 3 ML VIAL INH PRN (18:13)
--- NOTE | 2020-07-06 19:28 | Hospitalist Progress Note ---
Date of Service July 06, 2020 Assessment & Plan (1) Heart failure, diastolic, with acute decompensation: presented with SOB /AHN /orthopnea Chest Xray show pulmonary congestion decompensated CHF with diastolic dysfunction ( HFpEF) appreciate cardiology eval IV lasix cont to monitor vol status (2) Acute exacerbation of chronic obstructive pulmonary disease: worsening of sob /wheeze possible due to above cont diuresis on Neb tx /home inhaler Acute renal failure on CKD stage 3 : possible due to decompensated CHF ? cr improvd to baseline follow BMP while getting diuresis Full code Admission and Anticipated Discharge Date Admission Date: July 05, 2020 Subjective Follow up visit for acute on chronic hypoxemic resp failure /decompensated CHF with diasostic dysfunction : pt reports feeling still very short of breath very weak and fatigued cough has improved a bit no fever Review of Systems Review of Systems: All systems reviewed & are unremarkable except as noted in HPI & below Physical Exam Constitutional: WD/WN, vitals as above + ill appearing Eyes: PERRL, conjunctivae normal, anicteric sclerae ENMT: external ear and nose normal, oropharynx normal Neck: trachea midline, no thyromegaly Respiratory: + cough Auscultation: + diminished lung sounds, + rales and + wheezes Cardiovascular: Rate/Rhythm: regular rate and regular rhythm Extremities: + edema Gastrointestinal (Abdomen): Percussion/Palpation: abdomen soft; abdomen nontender Neurologic: PERRL, EOMI, accommodation nl, no face palsy, no dysarthria Psychiatric: A+Ox3, euthymic affect Results & Data Results & Data ([facility]) Vital Signs (Past 12 Hours) Vital Signs Temp Pulse Resp BP Pulse Ox 07/06/20 19:19 36.8 C 78 20 119/70 99 07/06/20 18:13 82 20 99 07/06/20 15:01 37.2 C 82 20 132/71 99 07/06/20 12:18 37.1 C 85 20 141/66 H 95 07/06/20 08:13 37.1 C 91 H 20 143/76 H 97
[2020-07-06] MEDS: GABAPENTIN 600 MG TAB PO SCH (21:10)
[2020-07-06] MEDS: ATORVASTATIN 20 MG TAB PO SCH (21:10)
[2020-07-07] MEDS: LEVOTHYROXINE SODIUM 88 MCG TABLET PO SCH (06:30)
[2020-07-07] MEDS: PROPAFENONE HCL 150 MG TABLET PO SCH ×3 (06:30→20:04)
[2020-07-07] MEDS: traMADol HCL 50 MG TABLET PO PRN ×4 (08:21→23:38)
[2020-07-07] MEDS: FLUTICASONE/VILANTEROL 200/25MCG 14 PUFFS/INHALER INH SCH (08:22)
[2020-07-07] MEDS: FUROSEMIDE 40 MG in SYRINGE 0 ML IV SCH ×2 (08:22→16:15)
[2020-07-07] MEDS: CHOLECALCIFEROL 1,000 UNITS 25 MCG TAB PO SCH (08:23)
[2020-07-07] MEDS: ROFLUMILAST 500 MCG TAB PO SCH (08:23)
[2020-07-07] MEDS: amLODIPine BESYLATE 5 MG TAB PO SCH (08:23)
[2020-07-07] MEDS: MULTIVITAMIN TAB PO SCH (08:24)
[2020-07-07] MEDS: METOPROLOL SUCC 50MG EXT REL TAB PO SCH (08:24)
[2020-07-07] MEDS: allopurinoL 300 MG TAB PO SCH (08:25)
[2020-07-07] MEDS: SERTRALINE HCL 50 MG TABLET PO SCH (08:25)
[2020-07-07] MEDS: ALBUTEROL 0.083% NEBU SOLN 3 ML VIAL INH PRN (08:50)
[2020-07-07] MEDS: ENOXAPARIN INJ 40 MG/0.4 ML SYR SQ SCH (10:12)
[2020-07-07 10:32] LABS: BUN Creatinine Ratio 22.5 (10-20); Calcium 10.2 mg/dl (8.5-10.1); Creatinine Clr Calc Pharmacy 36.3 ml/min; Est GFR (African American) 37.2; Est GFR (Non-African American) 32.1; Potassium 3.3 mmol/L (3.5-5.1)
--- NOTE | 2020-07-07 11:54 | Cardiology Progress Note ---
Date of Service July 07, 2020 Assessment & Plan (1) SOB (shortness of breath): (2) Heart failure, diastolic, with acute decompensation: (3) Hypokalemia: (4) PAF (paroxysmal atrial fibrillation): (5) Chronic respiratory failure with hypoxia: (6) CKD (chronic kidney disease): (7) COPD (chronic obstructive pulmonary disease): Complex 70-year-old patient admitted with multifactorial dyspnea on exertion secondary to recent COVID-19 pneumonia, mild acute on chronic diastolic heart f ailure, COPD with chronic hypoxia, and chronic anemia. Clinically improving with IV diuretic therapy, fluid balance -1.1 L overnight. Supplement potassium today. Repeat BMP in a.m. Creatinine trending upward slightly, however, remains near baseline. Continue metolazone on Mondays and Fridays. Follow daily weight, fluid balance, GFR, and electrolytes. In regard to patient's history of atrial fibrillation, she remains in sinus rhythm with PACs today. Continue propafenone as previously ordered. Per review of records, anticoagulation was held in the past due to chronic anemia, peptic ulcer disease, and GI blood loss. Admission and Anticipated Discharge Date Admission Date: July 05, 2020 Subjective Patient seen and examined the bedside. Respiratory status mildly improved. Denies chest pain or palpitations. Telemetry reveals sinus rhythm with average heart rate of 80 bpm. Tolerating diet and medications. Offers no new concerns/complaints. Review of Systems Review of Systems: All systems reviewed & are unremarkable except as noted in HPI & below Physical Exam Constitutional: well developed, well nourished and + obese; no acute distress Respiratory: no respiratory distress, no labored breathing and no retractions Auscultation: + crackles (Right base); no rhonchi, no wheezes and no pleural rub Cardiovascular: Rate/Rhythm: regular rhythm Heart Sounds: normal S1 and normal S2; no murmur and no cardiac rub Vessels: no JVD and no carotid bruit Extremities: + edema (1+ bilateral pedal and ankle) Gastrointestinal (Abdomen): Inspection/Auscultation: normal bowel sounds; abdomen not distended Percussion/Palpation: abdomen soft; abdomen nontender, no guarding and abdomen not rigid Skin: no rashes, warm and dry Neurologic: CN's II-XI intact bilaterally and moves all extremities; no focal motor deficits Results & Data ([facility]) Vital Signs (Past 12 Hours) Vital Signs Temp Pulse Pulse Resp BP Pulse Ox 07/07/20 08:51 96 H 22 96 07/07/20 07:50 37.0 C 88 22 146/70 H 97 07/07/20 07:13 36.8 C 80 20 107/64 97 07/07/20 07:02 78 07/07/20 05:15 36.6 C 84 20 120/72 99 07/06/20 23:53 36.8 C 77 20 122/71 100 (1) CKD (chronic kidney disease) Chronic kidney disease stage: unspecified stage Qualified Code(s): N18.9 - Chronic kidney disease, unspecified
[2020-07-07] MEDS: ACETAMINOPHEN 500 MG TAB PO PRN (12:26)
[2020-07-07] MEDS: POTASSIUM CHLORIDE CRTAB 20 MEQ TABCR PO SCH (12:27)
[2020-07-07] MEDS: ATORVASTATIN 20 MG TAB PO SCH (20:04)
--- NOTE | 2020-07-07 20:51 | Hospitalist Progress Note ---
Date of Service July 07, 2020 Assessment & Plan (1) Heart failure, diastolic, with acute decompensation: presented with SOB /AHN /orthopnea Chest Xray show pulmonary congestion decompensated CHF with diastolic dysfunction ( HFpEF) ECHO shows EF 60-65 % with grade 1 diastolic heart failure appreciate cardiology eval IV lasix . Continue metolazone on Mondays and Fridays. Follow daily weight, daily BMP to assess renal function Afib : on propafenone not a candidate for chronic anticoagulation due to bleeding risk (2) Acute exacerbation of chronic obstructive pulmonary disease: worsening of sob /wheeze possible due to above cont diuresis on Neb tx /home inhaler Acute renal failure on CKD stage 3 : possible due to decompensated CHF ? cr improvd to baseline follow BMP while getting diuresis Full code DVT prophylaxis : SC Lovenox Disposition : will need PT/OT eval prior to discharge Admission and Anticipated Discharge Date Admission Date: July 05, 2020 Subjective Follow up visit for acute on chronic hypoxemic resp failure /decompensated CHF with diasostic dysfunction : respiratory status remains the same improvement of orthopnea no fever vitals stable Physical Exam Constitutional: WD/WN, vitals as above + ill appearing Eyes: PERRL, conjunctivae normal, anicteric sclerae ENMT: external ear and nose normal, oropharynx normal Neck: trachea midline, no thyromegaly Respiratory: + cough Auscultation: + diminished lung sounds, + rales and + wheezes Cardiovascular: Rate/Rhythm: regular rate and regular rhythm Extremities: + edema Gastrointestinal (Abdomen): Percussion/Palpation: abdomen soft; abdomen nontender Neurologic: PERRL, EOMI, accommodation nl, no face palsy, no dysarthria Psychiatric: A+Ox3, euthymic affect Results & Data Results & Data ([facility]) Vital Signs (Past 12 Hours) Vital Signs Temp Pulse Pulse Resp BP Pulse Ox 07/07/20 19:18 36.6 C 83 18 159/77 H 95 07/07/20 16:16 36.7 C 07/07/20 16:09 76 18 114/71 99 07/07/20 14:59 76 07/07/20 12:21 36.7 C 87 22 132/72 96 07/07/20 08:51 96 H 22 96
[2020-07-07] MEDS: GABAPENTIN 600 MG TAB PO SCH (20:57)
--- NOTE | 2020-07-07 21:33 | Communication Note ---
Date of Service: July 07, 2020 Attending note : pt reports that she was left on bedpan for long period time. no one came to check on her as she was on it for considerable amount of time / she tried the call garcia which was not working . she said she called for help , but no one heard her . she finally called her brother , who contacted pt's daughter Noreen . pt managed to get herself off the bed gil Noreen called the nursing station , apparently the call garcia got unhooked form the wall outlet , which was fixed , pt was very upset , Nursing properties supervisor was notified , who spoke with pt and her family . I personally talked with pt -she feels better now , requests that similar episode should not happen inspected pt's back side -no skin tear or open wound noted , she mentions her back is very sore from the bed gil. I spoke with Pt's daughter Noreen and Granddaughter , apologized for the mishap and assured that similar incident will not happen future . updated that pt is doing better pt lives with her daughter and granddaughter has care givers Daughter asking if they can take pt home tomorrow Ms Lee still requiring IV Lasix has multiple admissions due to decompensated CHF , last one was 2 weeks back she may need another 24 hrs of IV diuretics before transition to pO lasix will d/w Cardiology in am PT/OT lonnie pending as well . tentative discharge on Monday 07/09 Kandy Larson MD
[2020-07-08] MEDS: LEVOTHYROXINE SODIUM 88 MCG TABLET PO SCH (05:51)
[2020-07-08] MEDS: PROPAFENONE HCL 150 MG TABLET PO SCH ×3 (05:51→20:23)
[2020-07-08] MEDS: FLUTICASONE/VILANTEROL 200/25MCG 14 PUFFS/INHALER INH SCH (08:27)
[2020-07-08] MEDS: SERTRALINE HCL 50 MG TABLET PO SCH (08:27)
[2020-07-08] MEDS: allopurinoL 300 MG TAB PO SCH (08:27)
[2020-07-08] MEDS: metOLazone 2.5 MG TABLET PO SCH (08:27)
[2020-07-08] MEDS: FUROSEMIDE 40 MG in SYRINGE 0 ML IV SCH ×2 (08:28→16:16)
[2020-07-08] MEDS: POTASSIUM CHLORIDE CRTAB 20 MEQ TABCR PO SCH (08:28)
[2020-07-08] MEDS: ROFLUMILAST 500 MCG TAB PO SCH (08:28)
[2020-07-08] MEDS: amLODIPine BESYLATE 5 MG TAB PO SCH (08:29)
[2020-07-08] MEDS: MULTIVITAMIN TAB PO SCH (08:29)
[2020-07-08] MEDS: METOPROLOL SUCC 50MG EXT REL TAB PO SCH (08:29)
[2020-07-08] MEDS: ENOXAPARIN INJ 40 MG/0.4 ML SYR SQ SCH (08:29)
[2020-07-08] MEDS: CHOLECALCIFEROL 1,000 UNITS 25 MCG TAB PO SCH (08:31)
[2020-07-08 08:45] LABS: BUN Creatinine Ratio 22.4 (10-20); Calcium 10.2 mg/dl (8.5-10.1); Creatinine Clr Calc Pharmacy 31.7 ml/min; Est GFR (African American) 31.4; Est GFR (Non-African American) 27.1; Potassium 3.3 mmol/L (3.5-5.1)
--- NOTE | 2020-07-08 11:14 | Cardiology Progress Note ---
Date of Service July 08, 2020 Assessment & Plan (1) SOB (shortness of breath): (2) Heart failure, diastolic, with acute decompensation: (3) Hypokalemia: (4) PAF (paroxysmal atrial fibrillation): (5) Chronic respiratory failure with hypoxia: (6) CKD (chronic kidney disease): (7) COPD (chronic obstructive pulmonary disease): Complex 70-year-old patient admitted with multifactorial dyspnea on exertion secondary to recent COVID-19 pneumonia, mild acute on chronic diastolic heart f ailure, COPD with chronic hypoxia, and chronic anemia. Clinically improving with IV diuretic therapy, fluid balance -410mL overnight. Give additional 20 mEq oral potassium today. Repeat serum magnesium level. Repeat BMP/Mg in a.m. Creatinine trending upward slightly, however, remains near baseline. Continue metolazone on Mondays and Fridays. Follow daily weight, fluid balance, GFR, and electrolytes. In regard to patient's history of atrial fibrillation, she remains in sinus rhythm with PACs today. Continue propafenone as previously ordered. Per review of records, anticoagulation was held in the past due to chronic anemia, peptic ulcer disease, and GI blood loss. Admission and Anticipated Discharge Date Admission Date: July 05, 2020 Subjective Patient seen and examined at bedside. Fluid balance -410 cc overnight. Creatinine trending upward. Respiratory status and lower extremity edema improving. Mild hypokalemia noted despite 20 mEq/day supplementation. Telemetry demonstrates atrial fibrillation with average heart rate of 85 bpm. Review of Systems Review of Systems: All systems reviewed & are unremarkable except as noted in Subjective Physical Exam Constitutional: well developed, well nourished and + obese; no acute distress Respiratory: no respiratory distress, no labored breathing and no retractions Auscultation: + crackles (Right base); no rhonchi, no wheezes and no pleural rub Cardiovascular: Rate/Rhythm: regular rhythm Heart Sounds: normal S1 and normal S2; no murmur and no cardiac rub Vessels: no JVD and no carotid bruit Extremities: + edema (Trace bilateral pedal and ankle) Gastrointestinal (Abdomen): Inspection/Auscultation: normal bowel sounds; abdomen not distended Percussion/Palpation: abdomen soft; abdomen nontender, no guarding and abdomen not rigid Skin: no rashes, warm and dry Neurologic: CN's II-XI intact bilaterally and moves all extremities; no focal motor deficits Results & Data ([facility]) Vital Signs (Past 12 Hours) Vital Signs Temp Pulse Pulse Resp BP BP Pulse Ox 07/08/20 08:23 36.6 C 92 H 18 115/67 94 07/08/20 07:30 79 07/08/20 04:33 36.7 C 81 17 142/66 H 97 07/07/20 23:33 36.8 C 83 18 143/72 H 98 (1) CKD (chronic kidney disease) Chronic kidney disease stage: unspecified stage Qualified Code(s): N18.9 - Chronic kidney disease, unspecified
[2020-07-08] MEDS ORDERED: POTASSIUM CHLORIDE CRTAB 20 MEQ TABCR PO STA (11:18)
--- NOTE | 2020-07-08 18:31 | Hospitalist Progress Note ---
Date of Service July 08, 2020 Assessment & Plan (1) Heart failure, diastolic, with acute decompensation: Symptom has improved markedly after diuresis presented with SOB /AHN /orthopnea Chest Xray show pulmonary congestion decompensated CHF with diastolic dysfunction ( HFpEF) ECHO shows EF 60-65 % with grade 1 diastolic heart failure appreciate cardiology eval Treated with IV Lasix, plan to change to p.o. . Continue metolazone on Mondays and Fridays. Follow daily weight, Repeat BMP in a.m. Calcium corrected Afib : on propafenone Since rate control. not a candidate for chronic anticoagulation due to bleeding risk (2) Acute exacerbation of chronic obstructive pulmonary disease: Symptom has resolved no cough or SOB , wheeze worsening of sob /wheeze possible due to above cont diuresis on Neb tx /home inhaler Acute renal failure on CKD stage 3 : possible due to decompensated CHF ? cr improvd to baseline follow BMP while getting diuresis Full code DVT prophylaxis : SC Lovenox Disposition : will need PT/OT eval prior to discharge Admission and Anticipated Discharge Date Admission Date: July 05, 2020 Subjective Follow-up visit for decompensated CHF: Patient sitting on the chair, denies of any chest shortness of breath does not have any cough respiratory status improved to baseline Lower extremity swelling/edema has improved No fever or chills no shortness of breath Review of Systems Review of Systems: All systems reviewed & are unremarkable except as noted in HPI & below Physical Exam Constitutional: WD/WN, vitals as above Eyes: PERRL, conjunctivae normal, anicteric sclerae ENMT: external ear and nose normal, oropharynx normal Neck: trachea midline, no thyromegaly Respiratory: Auscultation: + diminished lung sounds and + rales Cardiovascular: Rate/Rhythm: regular rate and regular rhythm Extremities: + edema Gastrointestinal (Abdomen): Percussion/Palpation: abdomen soft; abdomen nontender Neurologic: PERRL, EOMI, accommodation nl, no face palsy, no dysarthria Psychiatric: A+Ox3, euthymic affect Results & Data Results & Data ([facility]) Vital Signs (Past 12 Hours) Vital Signs Temp Pulse Pulse Resp BP Pulse Ox 07/08/20 16:00 79 07/08/20 15:24 36.9 C 85 18 125/69 97 07/08/20 11:11 36.4 C L 81 20 120/74 100 07/08/20 08:23 36.6 C 92 H 18 115/67 94 07/08/20 07:30 79
[2020-07-08] MEDS: traMADol HCL 50 MG TABLET PO PRN (19:25)
[2020-07-08] MEDS: GABAPENTIN 600 MG TAB PO SCH (20:23)
[2020-07-08] MEDS: ATORVASTATIN 20 MG TAB PO SCH (20:23)
[2020-07-09] MEDS: LEVOTHYROXINE SODIUM 88 MCG TABLET PO SCH (05:35)
[2020-07-09] MEDS: PROPAFENONE HCL 150 MG TABLET PO SCH ×3 (05:35→20:33)
[2020-07-09 07:50] LABS: BUN Creatinine Ratio 25.6 (10-20); Calcium 10.1 mg/dl (8.5-10.1); Creatinine Clr Calc Pharmacy 32.6 ml/min; Est GFR (African American) 32.5; Magnesium 2.1 mg/dl (1.8-2.4); Potassium 3.4 mmol/L (3.5-5.1)
[2020-07-09] MEDS: FUROSEMIDE 40 MG in SYRINGE 0 ML IV SCH (08:27)
[2020-07-09] MEDS: FLUTICASONE/VILANTEROL 200/25MCG 14 PUFFS/INHALER INH SCH (08:28)
[2020-07-09] MEDS: METOPROLOL SUCC 50MG EXT REL TAB PO SCH (08:28)
[2020-07-09] MEDS: ROFLUMILAST 500 MCG TAB PO SCH (08:28)
[2020-07-09] MEDS: amLODIPine BESYLATE 5 MG TAB PO SCH (08:29)
[2020-07-09] MEDS: POTASSIUM CHLORIDE CRTAB 20 MEQ TABCR PO SCH (08:29)
[2020-07-09] MEDS: MULTIVITAMIN TAB PO SCH (08:29)
[2020-07-09] MEDS: SERTRALINE HCL 50 MG TABLET PO SCH (08:29)
[2020-07-09] MEDS: allopurinoL 300 MG TAB PO SCH (08:29)
[2020-07-09] MEDS: ENOXAPARIN INJ 40 MG/0.4 ML SYR SQ SCH (08:31)
[2020-07-09] MEDS: CHOLECALCIFEROL 1,000 UNITS 25 MCG TAB PO SCH (10:12)
[2020-07-09] MEDS: traMADol HCL 50 MG TABLET PO PRN ×3 (10:13→21:55)
--- NOTE | 2020-07-09 10:51 | Cardiology Progress Note ---
Date of Service July 09, 2020 Assessment & Plan (1) SOB (shortness of breath): (2) Heart failure, diastolic, with acute decompensation: (3) Hypokalemia: (4) PAF (paroxysmal atrial fibrillation): (5) Chronic respiratory failure with hypoxia: (6) CKD (chronic kidney disease): (7) COPD (chronic obstructive pulmonary disease): Complex 70-year-old patient admitted with multifactorial dyspnea on exertion secondary to recent COVID-19 pneumonia, mild acute on chronic diastolic heart f ailure, COPD with chronic hypoxia, and chronic anemia. Clinically improving with IV diuretic therapy, fluid balance -1160mL overnight. Mild hyponatremia, hypokalemia with stable renal function per a.m. labs. Additional 20 mEq of oral potassium ordered today. Repeat serum magnesium level within normal limits. Recommend discontinuation of IV Lasix today. Resume outpatient Bumex 1 mg oral twice daily. Repeat basic metabolic panel in a.m. Follow daily weight, fluid balance, GFR, and electrolytes. In regard to patient's history of atrial fibrillation, she remains in sinus rhythm with PACs per telemetry. Continue propafenone as previously ordered. Telemetry may be discontinued at this time. Per review of records, anticoagulation was held in the past due to chronic anemia, peptic ulcer disease, and GI blood loss. Admission and Anticipated Discharge Date Admission Date: July 05, 2020 Subjective Patient seen and examined at the bedside. Respiratory status improving. Denies chest pain or palpitations. Telemetry demonstrates sinus rhythm heart rate ranging from 70 to 85 bpm. Fluid balance -1100 cc over the past 24 hours. Mild hyponatremia noted. Edema has resolved. Denies orthopnea or PND. Oxygen saturation stable on 4 L nasal cannula. Patient typically wears 4 L nasal cannula at home. Review of Systems Review of Systems: All systems reviewed & are unremarkable except as noted in Subjective Physical Exam Constitutional: well developed, well nourished and + obese; no acute distress Respiratory: no respiratory distress, no labored breathing and no retractions Auscultation: + diminished lung sounds (Right base); no crackles, no rhonchi, no wheezes and no pleural rub Cardiovascular: Rate/Rhythm: regular rhythm Heart Sounds: normal S1 and normal S2; no murmur and no cardiac rub Vessels: no JVD and no carotid bruit Extremities: + edema (Trace bilateral pedal and ankle) Gastrointestinal (Abdomen): Inspection/Auscultation: normal bowel sounds; abdomen not distended Percussion/Palpation: abdomen soft; abdomen nontender, no guarding and abdomen not rigid Skin: no rashes, warm and dry Neurologic: CN's II-XI intact bilaterally and moves all extremities; no focal motor deficits Results & Data ([facility]) Vital Signs (Past 12 Hours) Vital Signs Temp Pulse Pulse Resp BP BP Pulse Ox 07/09/20 08:34 36.9 C 89 18 118/70 99 07/09/20 07:16 79 07/09/20 05:00 36.3 C L 82 18 129/67 100 07/09/20 00:08 83 07/08/20 23:22 36.7 C 85 22 123/75 100 (1) CKD (chronic kidney disease) Chronic kidney disease stage: unspecified stage Qualified Code(s): N18.9 - Chronic kidney disease, unspecified
[2020-07-09] MEDS ORDERED: POTASSIUM CHLORIDE CRTAB 20 MEQ TABCR PO ONE (11:00)
--- NOTE | 2020-07-09 16:25 | Hospitalist Progress Note ---
Date of Service July 09, 2020 Assessment & Plan (1) Heart failure, diastolic, with acute decompensation: Symptom has improved markedly after diuresis presented with SOB /HAN /orthopnea Chest Xray show pulmonary congestion decompensated CHF with diastolic dysfunction ( HFpEF) ECHO shows EF 60-65 % with grade 1 diastolic heart failure appreciate cardiology eval Treated with IV Lasix, plan to change to p.o. . Continue metolazone on Mondays and Fridays. iv lasix is D/leila , resumed PO bumex Repeat BMP in a.m. Afib : on propafenone Since rate control. not a candidate for chronic anticoagulation due to bleeding risk (2) Acute exacerbation of chronic obstructive pulmonary disease: Symptom has resolved no cough or SOB , wheeze worsening of sob /wheeze possible due to above cont diuresis on Neb tx /home inhaler Acute renal failure on CKD stage 3 : possible due to decompensated CHF ? cr improvd to baseline follow BMP while getting diuresis Full code DVT prophylaxis : SC Lovenox Disposition : will need PT/OT eval prior to discharge Admission and Anticipated Discharge Date Admission Date: July 05, 2020 Subjective Follow-up visit for decompensated CHF: Patient sitting on the chair, denies of any chest shortness of breath does not have any cough respiratory status improved to baseline Lower extremity swelling/edema has improved No fever or chills no shortness of breath Physical Exam Constitutional: WD/WN, vitals as above + ill appearing Eyes: PERRL, conjunctivae normal, anicteric sclerae ENMT: external ear and nose normal, oropharynx normal Neck: trachea midline, no thyromegaly Respiratory: + cough Auscultation: + diminished lung sounds and + rales Cardiovascular: Rate/Rhythm: regular rate and regular rhythm Extremities: + edema Gastrointestinal (Abdomen): Percussion/Palpation: abdomen soft; abdomen nontender Neurologic: PERRL, EOMI, accommodation nl, no face palsy, no dysarthria Psychiatric: A+Ox3, euthymic affect Results & Data Results & Data ([facility]) Vital Signs (Past 12 Hours) Vital Signs Temp Pulse Pulse Resp BP BP Pulse Ox 07/09/20 15:29 36.8 C 81 20 128/70 100 07/09/20 12:27 36.6 C 86 18 134/76 100 07/09/20 10:37 07/09/20 08:34 36.9 C 89 18 118/70 99 07/09/20 07:16 79 07/09/20 05:00 36.3 C L 82 18 129/67 100 Pulse Ox 07/09/20 15:29 07/09/20 12:27 07/09/20 10:37 100 07/09/20 08:34 07/09/20 07:16 07/09/20 05:00
[2020-07-09] MEDS: BUMETANIDE 1 MG TAB PO SCH (16:54)
[2020-07-09] MEDS: ACETAMINOPHEN 500 MG TAB PO PRN (17:46)
[2020-07-09] MEDS: ATORVASTATIN 20 MG TAB PO SCH (20:33)
[2020-07-09] MEDS: DICLOFENAC SOD 1% GEL 100 GM TUBE EXT PRN (21:00)
[2020-07-09] MEDS: GABAPENTIN 600 MG TAB PO SCH (21:57)
[2020-07-10] MEDS: PROPAFENONE HCL 150 MG TABLET PO SCH ×3 (05:10→21:39)
[2020-07-10] MEDS: LEVOTHYROXINE SODIUM 88 MCG TABLET PO SCH (05:10)
[2020-07-10 07:03] LABS: BUN Creatinine Ratio 28.1 (10-20); Calcium 10.8 mg/dl (8.5-10.1); Creatinine Clr Calc Pharmacy 31.2 ml/min; Est GFR (African American) 31.2; Est GFR (Non-African American) 26.9; Magnesium 2.1 mg/dl (1.8-2.4); Potassium 3.7 mmol/L (3.5-5.1)
[2020-07-10] MEDS: traMADol HCL 50 MG TABLET PO PRN ×2 (07:44→14:39)
[2020-07-10] MEDS: ACETAMINOPHEN 500 MG TAB PO PRN (07:44)
[2020-07-10] MEDS: BUMETANIDE 1 MG TAB PO SCH ×2 (09:40→16:45)
[2020-07-10] MEDS: allopurinoL 300 MG TAB PO SCH (09:41)
[2020-07-10] MEDS: METOPROLOL SUCC 50MG EXT REL TAB PO SCH (09:41)
[2020-07-10] MEDS: POTASSIUM CHLORIDE CRTAB 20 MEQ TABCR PO SCH (09:41)
[2020-07-10] MEDS: ROFLUMILAST 500 MCG TAB PO SCH (09:41)
[2020-07-10] MEDS: SERTRALINE HCL 50 MG TABLET PO SCH (09:41)
[2020-07-10] MEDS: MULTIVITAMIN TAB PO SCH (09:41)
[2020-07-10] MEDS: amLODIPine BESYLATE 5 MG TAB PO SCH (09:41)
[2020-07-10] MEDS: CHOLECALCIFEROL 1,000 UNITS 25 MCG TAB PO SCH (09:41)
[2020-07-10] MEDS: DICLOFENAC SOD 1% GEL 100 GM TUBE EXT PRN (09:42)
[2020-07-10] MEDS: ENOXAPARIN INJ 40 MG/0.4 ML SYR SQ SCH (09:42)
[2020-07-10] MEDS: FLUTICASONE/VILANTEROL 200/25MCG 14 PUFFS/INHALER INH SCH (10:53)
--- NOTE | 2020-07-10 18:39 | Hospitalist Progress Note ---
Date of Service July 10, 2020 Assessment & Plan (1) Heart failure, diastolic, with acute decompensation: Presented with SOB /AHN /orthopnea Chest Xray show pulmonary congestion decompensated CHF with diastolic dysfunction ( HFpEF) ECHO shows EF 60-65 % with grade 1 diastolic heart failure cardiology on board Treated with IV Lasix, then transition to PO Bumex Continue metolazone on Mondays and Fridays. Will monitor BMP in am before giving next dose of Bumex Afib : on propafenone Since rate control. not a candidate for chronic anticoagulation due to bleeding risk Continue to hold coumadin (2) Acute exacerbation of chronic obstructive pulmonary disease: Continue oxygen supplement Continue Roflumilast and Breo Continue diuresis Acute renal failure on CKD stage 3 : Possible related to diuresis Creatinine 1.8 today Already received Bumex dose for today Will monitor BMP in am Full code DVT prophylaxis : SC Lovenox Disposition : will need PT/OT eval prior to discharge Admission and Anticipated Discharge Date Admission Date: July 05, 2020 Subjective Pt was seen and examined Lying in bed with no distress Pt said that her breathing feels better She is asking to go home today Denies any chest pain, palpitation and fever Physical Exam Physical Exam: General- No acute distress Head- atraumatic Eyes- PERRL, EOMI, ENT- oropharynx clear Neck- supple, no JVD Lungs- diminished BS Heart- regular rhythm; no murmur Abdomen- normal bowel sounds, soft, nontender Extremities- no calf tenderness Neuro- alert, oriented x 3; PERRL, EOMI; no facial palsy; no dysarthria Skin- warm & dry Results & Data Results & Data ([facility]) Vital Signs (Past 12 Hours) Vital Signs Temp Pulse Pulse Resp BP BP Pulse Ox 07/10/20 18:01 87 L 07/10/20 15:28 36.5 C 83 20 121/75 96 07/10/20 15:10 80 07/10/20 11:31 36.8 C 82 19 115/69 95 07/10/20 08:39 98 07/10/20 07:47 36.7 C 86 22 141/67 H 98 07/10/20 07:21 85
[2020-07-10] MEDS: ATORVASTATIN 20 MG TAB PO SCH (21:39)
[2020-07-10] MEDS: GABAPENTIN 600 MG TAB PO SCH (21:39)
[2020-07-11] MEDS: LEVOTHYROXINE SODIUM 88 MCG TABLET PO SCH (06:19)
[2020-07-11] MEDS: PROPAFENONE HCL 150 MG TABLET PO SCH ×3 (06:19→20:33)
[2020-07-11] MEDS: traMADol HCL 50 MG TABLET PO PRN ×2 (06:19→22:25)
[2020-07-11] MEDS: ROFLUMILAST 500 MCG TAB PO SCH (08:45)
[2020-07-11] MEDS: FLUTICASONE/VILANTEROL 200/25MCG 14 PUFFS/INHALER INH SCH (08:45)
[2020-07-11] MEDS: MULTIVITAMIN TAB PO SCH (08:46)
[2020-07-11] MEDS: POTASSIUM CHLORIDE CRTAB 20 MEQ TABCR PO SCH (08:46)
[2020-07-11] MEDS: SERTRALINE HCL 50 MG TABLET PO SCH (08:46)
[2020-07-11] MEDS: allopurinoL 300 MG TAB PO SCH (08:46)
[2020-07-11] MEDS: CHOLECALCIFEROL 1,000 UNITS 25 MCG TAB PO SCH (08:47)
[2020-07-11] MEDS: METOPROLOL SUCC 50MG EXT REL TAB PO SCH (08:47)
[2020-07-11] MEDS: amLODIPine BESYLATE 5 MG TAB PO SCH (08:47)
[2020-07-11 08:49] LABS: Hematocrit (blood only) 28.2 % (37-47); Hemoglobin 8.4 g/dL (12.0-16.0); Mean Corpuscular Hemoglobin 28.7 pg (25-34); Mean Corpuscular Hgb Conc 29.8 g/dL (32-36); Mean Corpuscular Volume 96.2 fL (80-100); Platelet Count 268 K/uL (130-400); Red Blood Count 2.93 M/uL (4.2-5.4); White Blood Count 11.38 K/uL (4.8-10.8)
[2020-07-11 09:06] LABS: INR 1.1 (0.9-1.1); Prothrombin Time 11.4 Seconds (9.0-12.0)
[2020-07-11 09:25] LABS: BUN Creatinine Ratio 28.9 (10-20); Calcium 10.5 mg/dl (8.5-10.1); Creatinine Clr Calc Pharmacy 31.5 ml/min; Est GFR (African American) 31.2; Est GFR (Non-African American) 26.9; Potassium 3.4 mmol/L (3.5-5.1)
[2020-07-11] MEDS: ENOXAPARIN INJ 40 MG/0.4 ML SYR SQ SCH (09:34)
--- NOTE | 2020-07-11 19:36 | Hospitalist Progress Note ---
Date of Service July 11, 2020 Assessment & Plan (1) Heart failure, diastolic, with acute decompensation: Presented with SOB /AHN /orthopnea Chest Xray show pulmonary congestion decompensated CHF with diastolic dysfunction ( HFpEF) ECHO shows EF 60-65 % with grade 1 diastolic heart failure cardiology on board Treated with IV Lasix, then transition to PO Bumex Continue metolazone on Mondays and Fridays. Bumex hold today Will monitor BMP in am before giving next dose of Bumex OK from cardiology standpoint to discharge home Afib : on propafenone Since rate control. not a candidate for chronic anticoagulation due to bleeding risk Continue to hold coumadin (2) Acute exacerbation of chronic obstructive pulmonary disease: Continue oxygen supplement Continue Roflumilast and Breo Continue diuresis Acute renal failure on CKD stage 3 : Possible related to diuresis Creatinine 1.8 today Already received Bumex dose for today Will monitor BMP in am Full code DVT prophylaxis : SC Lovenox Disposition : will need PT/OT eval prior to discharge Update provided to her Daughter Admission and Anticipated Discharge Date Admission Date: July 05, 2020 Subjective Pt was seen and examined Sitting in chair with no distress Pt said that she feels much better She is very anxious to go home Denies any chest pain, palpitation and fever Physical Exam Physical Exam: General- No acute distress Head- atraumatic Eyes- PERRL, EOMI, ENT- oropharynx clear Neck- supple, no JVD Lungs- diminished BS Heart- regular rhythm; no murmur Abdomen- normal bowel sounds, soft, nontender Extremities- no calf tenderness Neuro- alert, oriented x 3; PERRL, EOMI; no facial palsy; no dysarthria Skin- warm & dry Results & Data Results & Data ([facility]) Vital Signs (Past 12 Hours) Vital Signs Temp Pulse Pulse Resp BP BP Pulse Ox 07/11/20 19:30 36.6 C 87 20 147/76 H 98 07/11/20 15:30 89 07/11/20 15:28 36.9 C 86 20 115/68 97 07/11/20 11:27 36.6 C 80 18 116/70 100 07/11/20 08:34 36.6 C 99 H 22 134/67 95
[2020-07-11] MEDS: GABAPENTIN 600 MG TAB PO SCH (20:32)
[2020-07-11] MEDS: ATORVASTATIN 20 MG TAB PO SCH (20:32)
[2020-07-11] MEDS: ACETAMINOPHEN 500 MG TAB PO PRN (22:25)
[2020-07-12] MEDS: PROPAFENONE HCL 150 MG TABLET PO SCH (06:31)
[2020-07-12] MEDS: LEVOTHYROXINE SODIUM 88 MCG TABLET PO SCH (06:31)
[2020-07-12 07:23] LABS: BUN Creatinine Ratio 26.6 (10-20); Calcium 10.2 mg/dl (8.5-10.1); Creatinine Clr Calc Pharmacy 36.3 ml/min; Est GFR (African American) 36.6; Est GFR (Non-African American) 31.6
[2020-07-12] MEDS: FLUTICASONE/VILANTEROL 200/25MCG 14 PUFFS/INHALER INH SCH (08:00)
[2020-07-12] MEDS: allopurinoL 300 MG TAB PO SCH (08:01)
[2020-07-12] MEDS: POTASSIUM CHLORIDE CRTAB 20 MEQ TABCR PO SCH (08:01)
[2020-07-12] MEDS: amLODIPine BESYLATE 5 MG TAB PO SCH (08:01)
[2020-07-12] MEDS: SERTRALINE HCL 50 MG TABLET PO SCH (08:01)
[2020-07-12] MEDS: metOLazone 2.5 MG TABLET PO SCH (08:01)
[2020-07-12] MEDS: MULTIVITAMIN TAB PO SCH (08:01)
[2020-07-12] MEDS: ROFLUMILAST 500 MCG TAB PO SCH (08:01)
[2020-07-12] MEDS: METOPROLOL SUCC 50MG EXT REL TAB PO SCH (08:02)
[2020-07-12] MEDS: ENOXAPARIN INJ 40 MG/0.4 ML SYR SQ SCH (08:02)
[2020-07-12] MEDS: CHOLECALCIFEROL 1,000 UNITS 25 MCG TAB PO SCH (08:02)
[2020-07-12] MEDS: BUMETANIDE 1 MG TAB PO SCH (10:12)
--- NOTE | 2020-07-12 11:35 | Hospitalist Progress Note ---
Date of Service July 12, 2020 Assessment & Plan (1) Heart failure, diastolic, with acute decompensation: Presented with SOB /AHN /orthopnea Chest Xray show pulmonary congestion decompensated CHF with diastolic dysfunction ( HFpEF) ECHO shows EF 60-65 % with grade 1 diastolic heart failure cardiology on board Treated with IV Lasix, then transition to PO Bumex Continue metolazone on Mondays and Fridays. Bumex resumed today OK from cardiology standpoint to discharge home Check BMP in 5-7 days to monitor electrolytes and kidney function Afib : Continue propafenone and metoprolol Since rate control. not a candidate for chronic anticoagulation due to bleeding risk (2) Acute exacerbation of chronic obstructive pulmonary disease: Continue oxygen supplement Encourage pt to used 2L NC at rest and 3-4 L NC with activities Continue Roflumilast and Breo Continue diuresis Acute renal failure on CKD stage 3 : Possible related to diuresis Creatinine 1.6 today Continue Bumex BID Check BMP within 1 week Anemia Hgb 8.4 Continue to hold coumadin Check CBC within 1 week to monitor hemoglobin Full code DVT prophylaxis : SC Lovenox Disposition : Discharge home today Admission and Anticipated Discharge Date Admission Date: July 05, 2020 Subjective Pt was seen and examined for follow of her breathing and creatinine Lying in bed with no distress Pt said that she feels fine She has been asking to go home for the last 3 days Denies any chest pain, palpitation, dizziness and fever Physical Exam Physical Exam: General- No acute distress Head- atraumatic Eyes- PERRL, EOMI, ENT- oropharynx clear Neck- supple, no JVD Lungs- diminished BS Heart- regular rhythm; no murmur Abdomen- normal bowel sounds, soft, nontender Extremities- no calf tenderness Neuro- alert, oriented x 3; PERRL, EOMI; no facial palsy; no dysarthria Skin- warm & dry Results & Data Results & Data ([facility]) Vital Signs (Past 12 Hours) Vital Signs Temp Pulse Pulse Resp BP BP Pulse Ox 07/12/20 07:13 36.6 C 73 16 106/68 100 07/12/20 07:00 73 07/12/20 04:29 36.4 C L 85 18 128/71 96
--- NOTE | 2020-07-16 10:10 | Discharge Summary ---
Date of Service July 12, 2020 Admission HPI Per Admitting Provider CHIEF COMPLAINT: Shortness of breath. HISTORY OF PRESENT ILLNESS: A 70-year-old female with past medical history significant for severe COPD, chronic respiratory failure on 4 liters oxygen all the time, hyperlipidemia, hypothyroidism, history of chronic kidney disease stage III, hypertension, right sided heart failure, morbid obesity, GERD, iron deficiency anemia, depression with anxiety, spinal stenosis questionable history of atrial fibrillation who was recently diagnosed with COVID pneumonia on 06/17/2020, he was admitted to the hospital. Received steroids and remdesivir and did fine and discharged home, comes back with shortness of breath and weight gain. The patient says last couple of days, feeling short of breath more than usual. She has chronic cough. She has couple of episodes of diarrhea, but this seems to be chronic and denies any fever, chills, no loss of sense of smell or taste. Appetite is okay. No chest pain, no nausea, no vomiting, no headache. She says she has blurred visions going on for some time. No earache, no runny nose, no sore throat, no difficulty swallowing. Her stools are always black because of iron pills. Normal bladder movements. Currently, resting comfortably and hemodynamically stable. She is currently requiring 5 liters of oxygen. Admission Exam Per Admitting Provider GENERAL: The patient is of moderate build, currently not in acute distress. VITAL SIGNS: Temperature 36.9, pulse 76, respiratory rate 18, blood pressure 181/87, oxygen 100% on 4 liters. HEENT: No pallor, no icterus. Oral mucosa moist. NECK: No neck masses seen. CARDIOVASCULAR: S1, S2 heard, regular rate and rhythm, no murmur, no gallop. RESPIRATORY SYSTEM: Normal AP diameter. No accessory muscle use. Mild bibasilar rhonchi heard. No wheezing. ABDOMEN: Soft, bowel sounds present, nontender. No distention. CENTRAL NERVOUS SYSTEM: Cranial nerves II-XII grossly intact, nonfocal. EXTREMITIES: Bilateral lower extremity pedal edema present, no erythema seen. Principal Diagnosis Heart failure, diastolic, with acute decompensation: Atrial fibrillation Acute exacerbation of chronic obstructive pulmonary disease: Acute renal failure on CKD stage 3 : Anemia Discharge Exam General- No acute distress Head- atraumatic Eyes- PERRL, EOMI, ENT- oropharynx clear Neck- supple, no JVD Lungs- diminished BS Heart- regular rhythm; no murmur Abdomen- normal bowel sounds, soft, nontender Extremities- no calf tenderness Neuro- alert, oriented x 3; PERRL, EOMI; no facial palsy; no dysarthria Skin- warm & dry Discharge Data Allergies Allergy/AdvReac Type Severity Reaction Status Date / Time adhesive Allergy Severe RED RASH Verified 07/05/20 22:33 latex AdvReac Mild TAPE-SORE Verified 07/05/20 22:33 morphine AdvReac Mild DELUSIONS Verified 07/05/20 22:33 Consultations 07/05/20 21:39 ED Decision to Admit Stat 07/06/20 02:09 Consult Case Management - Discharge Planning Routine 07/06/20 08:00 Consult Cardiology Routine Ordered Studies XR chest 1V portable CLINICAL HISTORY: Shortness of breath COMPARISON STUDY: 06/20/2020 FINDINGS: The heart is enlarged. There is bilateral interstitial thickening, perhaps minimally more prominent than to the preceding study. There is no lobar consolidation. There are no large pleural effusions. There are postsurgical changes of a right shoulder arthroplasty. There is evidence for prior vertebroplasty.[ IMPRESSION: Cardiomegaly and interstitial thickening, perhaps minimally more prominent than on the preceding study. Chronic interstitial lung disease is suspected. Superimposed mild pulmonary vascular congestion or a superimposed interstitial infectious process cannot be excluded. No evidence of lobar consolidation ACT 112: Negative or not required by law. Electronically signed by: Fox Garcia M.D. 07/06/2020 7:21 AM Dictated: 07/06/20718Transcribed: 07/06/20718 Hospital Course (1) Heart failure, diastolic, with acute decompensation: Presented with SOB /AHN /orthopnea Chest Xray show pulmonary congestion decompensated CHF with diastolic dysfunction ( HFpEF) ECHO shows EF 60-65 % with grade 1 diastolic heart failure cardiology on board Treated with IV Lasix, then transition to PO Bumex Continue metolazone on Mondays and Fridays. Bumex resumed today OK from cardiology standpoint to discharge home Check BMP in 5-7 days to monitor electrolytes and kidney function Afib : Continue propafenone and metoprolol Since rate control. not a candidate for chronic anticoagulation due to bleeding risk (2) Acute exacerbation of chronic obstructive pulmonary disease: Continue oxygen supplement Encourage pt to used 2L NC at rest and 3-4 L NC with activities Continue Roflumilast and Breo Continue diuresis Acute renal failure on CKD stage 3 : Possible related to diuresis Creatinine 1.6 today Continue Bumex BID Check BMP within 1 week Anemia Hgb 8.4 Continue to hold coumadin Check CBC within 1 week to monitor hemoglobin Full code DVT prophylaxis : SC Lovenox Disposition : Discharge home today Total Time Total Time Spent Total Time Spent (In Minutes): 35 minutes Total Time Includes: Examination of the Patient, Discharge Planning, Medication Reconciliation, Communication With Other Providers and Other Discharge Plan Discharge Items Patient Disposition: Home - Home Health Services Reason For Visit: SOB Discharge Diagnosis: decompensated CHF , volume overload Condition on Discharge: Fair Activity: Resume your previous activity Non-emergency contact: Primary Care Provider Call non-emergency contact if: you have any medication questions Follow-up/Referrals: Babak Melendez MD [Primary Care Provider] - 07/16/20 1:40 pm (Date & Time 07/16/2020 1:40 PM Provider Babak Melendez MD Department [facility] ) Diet: Carb Consistent or DM2 and Heart Healthy Addtl Attending Provider Instructions: Follow up with primary care provider Dr. Melendez on 07/16/2020 at 1:40 at the [facility] Continue oxygen supplement with 2-3 Nasal Cannula at rest and 4L with activities Check CBC within 1 week to monitor hemoglobin Check BMP within 1 week to monitor electrolytes and kidney function Continue Metolazone 2.5 mg (once) on Wednesday and fall precaution Pending Studies at Discharge: No Stand-Alone Forms: My [facility] nubelo, Smoking Cessation Medications and DC Order Prescriptions: Continued Breo Ellipta 200-25 mcg/dose Blister With Device 1 inh INHALATION DAILY RF: 0 multivitamin Tablet 1 tab PO QAM RF: 0 propafenone 150 mg Tablet 150 mg PO Q8H RF: 0 atorvastatin 20 mg Tablet 20 mg PO QPM RF: 0 metoprolol succinate 50 mg Tablet Extended Release 24 Hr 50 mg PO QAM RF: 0 levothyroxine 88 mcg Tablet 88 mcg PO DAILYBB RF: 0 allopurinol 300 mg Tablet 300 mg PO QAM RF: 0 cholecalciferol (vitamin D3) [Vitamin D3] 2,000 unit Tablet 2,000 unit PO QAM RF: 0 Daliresp 500 mcg Tablet 500 mcg PO DAILY RF: 0 albuterol sulfate 2.5 mg /3 mL (0.083 %) Solution For Nebulization 2.5 mg INHALATION .Q4-6HRS PRN (Reason: Shortness Of Breath Or Wheezing) RF: 0 potassium chloride [Klor-Con M20] 20 mEq tablet,ER particles/crystals 20 meq PO Q2D RF: 0 bumetanide 1 mg tablet 1 mg PO BID RF: 0 metolazone 2.5 mg tablet See Rx Instructions .ROUTE .COMPLEX RF: 0 gabapentin 600 mg tablet See Rx Instructions .ROUTE .COMPLEX RF: 0 sertraline 50 mg tablet 50 mg PO DAILY RF: 0 acetaminophen [Acetaminophen Extra Strength] 500 mg Tablet 1,000 mg PO Q8H PRN (Reason: Pain) RF: 0 amlodipine 5 mg tablet 10 mg PO QAM RF: 0 Discharge Orders: Discharge Order (Routine); Ordered 07/12/20 Ordered By: Tomasz Prescott Admission Data Admit Date/Time: 07/05/20 22:46 Attending Provider: Tomasz Prescott Admit Provider: Manjit Frias Primary Care Provider: Babak Melendez Other Providers: Manjit Frias ; Quan Patel ; Manuel Coleman ; Jack Meraz ; Harpal Mcnamara ; Cooper Leiva ; Jerad Lopez ; Katina Graves ; Laney Sanford ; Andrew Zimmer ; Kandy Larson. Other Interventions: Discharge Summary Assessment (RN) Last Done: 07/12/20 11:33
== END 2020-07-12 13:24 | disposition home health service (06) | DRG 291 ==
LOC: ED 19:40 → 2S 22:46 → SUATTDRO 22:46 → 2S 07-06 01:29

== ENCOUNTER 2020-07-27 10:39 | Inpatient (IN) ==
--- NOTE | 2020-07-27 12:45 | XRay Report ---
XR chest 1V portable CLINICAL HISTORY: trauma COMPARISON STUDY: Chest radiograph July 05, 2020. FINDINGS: Right shoulder arthroplasty is incidentally noted. There is mild interstitial thickening. T race left pleural effusion is noted. There is no pneumothorax. Multilevel thoracic spine vertebroplas ty is noted. Cardiomegaly is unchanged. Bilateral hilar enlargement is unchanged. There is a 1.4 cm l eft lower lung nodular opacity. Lateral right midlung opacity is noted. IMPRESSION: 1. No pneumothorax. 2. No significant change in mild interstitial thickening. This may reflect vascular congestion superi mposed upon interstitial lung disease. 3. Right midlung opacity which favors atelectasis or scarring. A 1.4 cm left lower lung nodular densi ty which is of questionable significance. Follow-up PA and lateral chest radiographs in one month are recommended. ACT 112: Negative or not required by law. Electronically signed by: Quentin Maier M.D. 07/27/2020 12:44 PM
--- NOTE | 2020-07-27 13:00 | XRay Report ---
XR knee RT 1 or 2V routine CLINICAL HISTORY: trauma COMPARISON: Right tibia and fibula radiographs July 18, 2017. FINDINGS: No acute fracture is noted. There is no suspicious osseous lesion. Irregularity of the pro ximal tibial fibular articulation is chronic. Severe osteophytosis within the patellofemoral compartm ent is noted. There is moderate osteoarthritis within the medial and lateral compartments. There is n o definite joint effusion. IMPRESSION: 1. No acute fracture. 2. Moderate to severe right knee osteoarthritis. ACT 112: Negative or not required by law. Electronically signed by: Quentin Maier M.D. 07/27/2020 12:59 PM
--- NOTE | 2020-07-27 13:02 | Emergency Department Note ---
History of Present Illness General Chief complaint: Fall Time Seen by Provider: 07/27/20 11:07 Source: patient and RN notes reviewed Mode of arrival: EMS Limitations: no limitations History of Present Illness Provider complaint: Recurrent falls Onset (ago): week(s) Severity: moderate Pain Consistency: + constant Maximum Pain Intensity: 8 Current Pain Intensity: 8 Relieved By: + none Exacerbated By: + movement This is a 70-year-old female who presents after recurrent falls. Patient was seen and evaluated here on Wednesday and underwent imaging, as well as a repair of a forehead laceration. Patient states today while using her walker she was ambulating from her chair to the bathroom and felt weak and unsteady in her legs and fell to her knees. Patient states she now has pain in her knees, her right foot, and her right wrist. Patient denies any other trauma including head injury or loss of consciousness. Patient states she does have increased pain since the fall although that does take chronic pain medication. Patient is on home hospice and nurse is concerned that due to multiple falls in a week she is unsafe continuing hospice at home. Family is uncomfortable continuing her care at home due to recurrent falls also. The hospice nurse did attempt to make inquiries in referrals for alternative placement, however none could be made today and she was referred to the emergency room. Pt seen during a time of high acuity and national emergency pandemic while wearing PPE. Home Medications Medication Instructions Recorded Confirmed Type metoprolol succinate 50 mg PO DAILY 03/12/18 07/27/20 History propafenone 150 mg PO Q8H 03/12/18 07/27/20 History albuterol sulfate 2.5 mg INHALATION .Q4-6HRS PRN 08/07/18 07/27/20 History potassium chloride [Klor-Con M20] 20 meq PO DAILY 09/27/19 07/27/20 History bumetanide 1 mg PO DAILY 12/02/19 07/27/20 History gabapentin 1,200 mg PO HS 07/05/20 07/27/20 History metolazone 2.5 mg PO 2XWK 07/05/20 07/27/20 History sertraline 50 mg PO HS 07/05/20 07/27/20 History amlodipine [Norvasc] 10 mg PO DAILY 07/27/20 07/27/20 History atorvastatin 20 mg PO DAILY 07/27/20 07/27/20 History buspirone 10 mg PO BID 07/27/20 07/27/20 History hydromorphone [Dilaudid] 1 mg PO Q2H PRN 07/27/20 07/27/20 History levothyroxine 88 mcg PO DAILY 07/27/20 07/27/20 History lorazepam 0.5 mg PO Q4H PRN 07/27/20 07/27/20 History methadone 2.5 mg PO DAILY 07/27/20 07/27/20 History prednisone 10 mg PO DAILY 07/27/20 07/27/20 History ranitidine HCl [Zantac] 150 mg PO BID 07/27/20 07/27/20 History sennosides [senna] 8.6 mg PO BID 07/27/20 07/27/20 History Allergies Allergy/AdvReac Type Severity Reaction Status Date / Time adhesive Allergy Severe RED RASH Verified 07/23/20 14:22 latex AdvReac Mild TAPE-SORE Verified 07/23/20 14:22 morphine AdvReac Mild DELUSIONS Verified 07/23/20 14:22 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 Hx of cholecystectomy S/P cervical spinal fusion S/P wrist surgery Family History Father Trauma Mother Diabetes Cerebral aneurysm Daughter Bipolar 1 disorder Social History Smoking Status: Former smoker Cigarettes Per Day: quit 30 years ago; Second Hand Exposure: No; Hx Alcohol Use: No Hx Substance Use: No Preferred Language: Montenegrin Communication Ability: Effective Counselor At Law Required: No Beliefs That Will Affect Care: None marital status: Current Living Situation: Family Current Living Situation Comment: daughter, grandson, great grandson, grandaughters How many Children do You have: 1 Feels Safe at Home: Yes Assistive Devices: Oxygen - Continuous Review of Systems See HPI for pertinent positives & negatives. and A total of 10 systems reviewed and were otherwise negative Physical Exam Vital Signs Vital Signs - 24 hr 07/27/20 10:50 07/27/20 10:54 07/27/20 10:56 Temperature 36.6 C Temperature Source Oral Pulse Rate 72 69 77 Pulse Rate [Apical] Pulse Rate from SpO2 Sensor 72 70 Respiratory Rate 20 17 22 Respiratory Effort / Characteristics Non-Labored Spontaneous Respiratory Depth Normal Respiratory Pattern Regular Blood Pressure 135/81 135/81 Blood Pressure [Right Arm] Blood Pressure Mean 97 99 Blood Pressure Mean [Right Arm] Pulse Oximetry 99 99 97 Oxygen Delivery Method Nasal Cannula Nasal Cannula Room Air Oxygen Flow Rate 4 4 Sepsis Recent Fever Within 48 Hours No Sepsis New/Unexplained Change in Mental Status No Sepsis Action Taken by Nursing No Action Required 07/27/20 11:00 07/27/20 11:03 07/27/20 11:05 Temperature Temperature Source Pulse Rate 77 69 Pulse Rate [Apical] 77 Pulse Rate from SpO2 Sensor 79 69 Respiratory Rate 21 22 17 Respiratory Effort / Characteristics Non-Labored Spontaneous Respiratory Depth Normal Respiratory Pattern Regular Blood Pressure 141/50 H Blood Pressure [Right Arm] 135/81 Blood Pressure Mean 69 Blood Pressure Mean [Right Arm] 99 Pulse Oximetry 99 97 100 Oxygen Delivery Method Nasal Cannula Nasal Cannula Nasal Cannula Oxygen Flow Rate 4 4 4 Sepsis Recent Fever Within 48 Hours Sepsis New/Unexplained Change in Mental Status Sepsis Action Taken by Nursing 07/27/20 11:30 07/27/20 11:31 07/27/20 11:32 Temperature Temperature Source Pulse Rate 67 64 67 Pulse Rate [Apical] Pulse Rate from SpO2 Sensor 64 66 67 Respiratory Rate 16 20 16 Respiratory Effort / Characteristics Respiratory Depth Respiratory Pattern Blood Pressure 118/50 L Blood Pressure [Right Arm] Blood Pressure Mean 61 Blood Pressure Mean [Right Arm] Pulse Oximetry 99 100 100 Oxygen Delivery Method Nasal Cannula Nasal Cannula Nasal Cannula Oxygen Flow Rate 4 4 4 Sepsis Recent Fever Within 48 Hours Sepsis New/Unexplained Change in Mental Status Sepsis Action Taken by Nursing 07/27/20 12:00 07/27/20 12:30 07/27/20 12:32 Temperature Temperature Source Pulse Rate 73 73 73 Pulse Rate [Apical] Pulse Rate from SpO2 Sensor Respiratory Rate 17 18 20 Respiratory Effort / Characteristics Respiratory Depth Respiratory Pattern Blood Pressure 126/59 L 105/58 L Blood Pressure [Right Arm] Blood Pressure Mean 84 64 Blood Pressure Mean [Right Arm] Pulse Oximetry 100 99 Oxygen Delivery Method Nasal Cannula Nasal Cannula Oxygen Flow Rate 4 4 Sepsis Recent Fever Within 48 Hours Sepsis New/Unexplained Change in Mental Status Sepsis Action Taken by Nursing 07/27/20 12:33 07/27/20 13:00 07/27/20 13:30 Temperature Temperature Source Pulse Rate 69 65 74 Pulse Rate [Apical] Pulse Rate from SpO2 Sensor 65 73 Respiratory Rate 19 16 20 Respiratory Effort / Characteristics Respiratory Depth Respiratory Pattern Blood Pressure 124/45 L Blood Pressure [Right Arm] Blood Pressure Mean 76 Blood Pressure Mean [Right Arm] Pulse Oximetry 100 99 Oxygen Delivery Method Nasal Cannula Oxygen Flow Rate 4 Sepsis Recent Fever Within 48 Hours Sepsis New/Unexplained Change in Mental Status Sepsis Action Taken by Nursing 07/27/20 13:31 07/27/20 13:32 07/27/20 13:52 Temperature Temperature Source Pulse Rate 73 74 79 Pulse Rate [Apical] Pulse Rate from SpO2 Sensor 73 75 Respiratory Rate 13 17 20 Respiratory Effort / Characteristics Respiratory Depth Respiratory Pattern Blood Pressure 131/57 L 131/57 L Blood Pressure [Right Arm] Blood Pressure Mean 65 65 Blood Pressure Mean [Right Arm] Pulse Oximetry 100 96 Oxygen Delivery Method Nasal Cannula Oxygen Flow Rate 4 Sepsis Recent Fever Within 48 Hours Sepsis New/Unexplained Change in Mental Status Sepsis Action Taken by Nursing 07/27/20 14:00 07/27/20 14:30 07/27/20 14:31 Temperature Temperature Source Pulse Rate 68 69 65 Pulse Rate [Apical] Pulse Rate from SpO2 Sensor Respiratory Rate 16 18 18 Respiratory Effort / Characteristics Respiratory Depth Respiratory Pattern Blood Pressure 132/50 L 118/42 L Blood Pressure [Right Arm] Blood Pressure Mean 101 76 Blood Pressure Mean [Right Arm] Pulse Oximetry 98 98 Oxygen Delivery Method Nasal Cannula Nasal Cannula Oxygen Flow Rate 4 4 Sepsis Recent Fever Within 48 Hours Sepsis New/Unexplained Change in Mental Status Sepsis Action Taken by Nursing 07/27/20 14:32 07/27/20 15:00 Temperature Temperature Source Pulse Rate 67 66 Pulse Rate [Apical] Pulse Rate from SpO2 Sensor Respiratory Rate 17 18 Respiratory Effort / Characteristics Respiratory Depth Respiratory Pattern Blood Pressure 112/44 L Blood Pressure [Right Arm] Blood Pressure Mean 76 Blood Pressure Mean [Right Arm] Pulse Oximetry 99 Oxygen Delivery Method Nasal Cannula Oxygen Flow Rate 4 Sepsis Recent Fever Within 48 Hours Sepsis New/Unexplained Change in Mental Status Sepsis Action Taken by Nursing GENERAL: alert, well appearing, well nourished, no distress, non-toxic, obese, oxygen via nasal cannula HEAD: Laceration with sutures intact noted just superior to the right eyebrow with mild surrounding contusion with appears to be healing. No evidence of new head or facial trauma. No self sign, no raccoon eyes, no epistaxis EYE EXAM: normal conjunctiva, PERRL and EOM's grossly intact OROPHARYNX: no exudate, no erythema, lips, buccal mucosa, and tongue normal and mucous membranes are moist, no obvious dental trauma NECK: supple, no nuchal rigidity, no adenopathy, non-tender LUNGS: Clear to auscultation. Normal chest wall mechanics, no w/r/r HEART: no murmurs, S1 normal and S2 normal ABDOMEN: abdomen soft, non-tender, normo-active bowel sounds, no masses, no rebound or guarding. BACK: Back is symmetrical on inspection and there is no deformity, no midline tenderness, no CVA tenderness. SKIN: no rashes and no bruising UPPER EXTREMITIES: upper extremities are grossly normal. FROM, nml pulses b/l. LOWER EXTREMITIES: No pitting edema. FROM, nml pulses b/l. Pain with palpation over both knees with decreased range of motion due to pain, no obvious deformity, joint effusion, or ecchymosis. Ecchymosis noted to third toe on right foot with edema, painful to palpation and decreased range of motion due to pain. NEURO EXAM: Normal sensorium, cranial nerves II-XII grossly intact, normal speech, no gross weakness of arms, no gross weakness of legs. Gross sensation intact. Course Course 1335: Case discussed with Kady steiner, [facility] hospitalist team. Imaging reassuring, case discussed with case management who was aware of the patient and need for further placement. Administered Medications Discontinued Medications Hydromorphone HCl (Hydromorphone Hcl 2 Mg Tab) 1 mg PO NOW STA Stop: 07/27/20 13:14 Last Admin: 07/27/20 13:30 Dose: 1 mg Documented by: [id number] Medical Decision Making Differential Diagnosis Differential diagnoses include major intracranial, cervical, spinal, thoracic, abdominal, pelvic and neurologic injury. Fracture, contusion, sprain, strain, laceration, abrasions included as well. Medical Records Attestation: I reviewed the patient's medical records. Home Medications Current Medication List: was personally reviewed by me Laboratory Data Attestation: I reviewed the patient's lab results. Lab Results 07/27/20 07/27/20 Range/Units 13:30 13:30 COVID-19 Eval Order Covid19 IDNow atMUTC SARS-CoV-2, RNA, NAAT NEGATIVE (NEGATIVE) Imaging Data Radiologist's Impression: XR chest 1V portable CLINICAL HISTORY: trauma COMPARISON STUDY: Chest radiograph July 05, 2020. FINDINGS: Right shoulder arthroplasty is incidentally noted. There is mild interstitial thickening. Trace left pleural effusion is noted. There is no pneumothorax. Multilevel thoracic spine vertebroplasty is noted. Cardiomegaly is unchanged. Bilateral hilar enlargement is unchanged. There is a 1.4 cm left lower lung nodular opacity. Lateral right midlung opacity is noted. IMPRESSION: 1. No pneumothorax. 2. No significant change in mild interstitial thickening. This may reflect vascular congestion superimposed upon interstitial lung disease. 3. Right midlung opacity which favors atelectasis or scarring. A 1.4 cm left lower lung nodular density which is of questionable significance. Follow-up PA and lateral chest radiographs in one month are recommended. ACT 112: Negative or not required by law. Electronically signed by: Quentin Maier M.D. 07/27/2020 12:44 PM XR foot RT 2V CLINICAL HISTORY: trauma COMPARISON: Right ankle radiographs July 18, 2017. Right foot radiograph October 18, 2008. FINDINGS: Previous hindfoot fusion is noted. No acute fracture within the right foot is noted. There is osteopenia. 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 IMPRESSION: 1. No acute fracture or dislocation within the right foot. 2. Previous hindfoot fusion. 3. Severe osteoarthritis within the right midfoot. ACT 112: Negative or not required by law. Electronically signed by: Quentin Maier M.D. 07/27/2020 1:07 PM XR knee LT 1 or 2V routine CLINICAL HISTORY: trauma COMPARISON: Left knee radiographs April 12, 2019. FINDINGS: No acute fracture is noted. There is no joint effusion. There is severe medial compartment osteoarthritis. There is moderate patellofemoral compartment osteoarthritis. IMPRESSION: 1. No acute fracture. 2. Moderate to severe left knee osteoarthritis. ACT 112: Negative or not required by law. Electronically signed by: Quentin Maier M.D. 07/27/2020 1:00 PM XR pelvis 1-2V routine CLINICAL HISTORY: trauma COMPARISON: CT of the abdomen and pelvis August 16, 2019. FINDINGS: Right hip arthroplasty is partially imaged. The distal aspect of the femoral component was not imaged on this exam. Heterotopic ossification is noted. Sacroiliac joints and symphysis pubis are intact. No acute fracture within the pelvis or hips is identified. IMPRESSION: 1. No acute fracture within the pelvis or hips. 2. Partial visualization of the total right hip arthroplasty. Visualized portions intact. ACT 112: Negative or not required by law. Electronically signed by: Quentin Maier M.D. 07/27/2020 1:01 PM XR wrist RT 2V CLINICAL HISTORY: trauma COMPARISON: Right wrist radiographs 07/23/2020. FINDINGS: Distal right radial plate and screws are noted. There is an old, healed distal right radial fracture. No acute fracture is noted. A well- corticated ossicle along the ulnar styloid is unchanged. This is old. There is moderate osteoarthritis within the right first carpometacarpal joint. IMPRESSION: 1. No acute fracture or dislocation of the right wrist. 2. Healed distal right radial fracture status post internal fixation. ACT 112: Negative or not required by law. Electronically signed by: Quentin Maier M.D. 07/27/2020 1:04 PM MDM Narrative This is a 70-year-old female who presents following a fall at home. Patient is on home hospice, and has had 2 falls this week. Hospice nurse concern for safety at home given recurrent falls despite use of an ambulatory assist device, and bedside commode. Patient's family uncomfortable caring for her at this time. I did try and make referrals as an outpatient to an inpatient facility for hospice however none were available. Patient was referred to the emergency room for additional evaluation of her falls, pain control, and eventual placement. This was a ground-level fall to the knees and hands per patient's description. No other significant head or trunk trauma. Patient is not anticoagulated. X-rays here are reassuring. Case discussed with case management initially and then eventually with hospitalist team. I have a low suspicion for any additional occult traumatic injury. Impression & Plan Acute knee pain, Morbid obesity, Chronic respiratory failure with hypoxia, Fall, Acute foot pain, Ambulatory dysfunction Discharge Plan Visit Data Chief Complaint: Fall ED Provider: Lorene Obando Discharge Problem: Acute knee pain, Morbid obesity, Chronic respiratory failure with hypoxia, Fall, Acute foot pain, Ambulatory dysfunction Discharge Instructions [place]/Other Patient Handouts: 2019-nCoV Forms Stand Alone Forms: [facility] Prescriptions Prescriptions: No Action propafenone 150 mg Tablet 150 mg PO Q8H RF: 0 metoprolol succinate 50 mg Tablet Extended Release 24 Hr 50 mg PO DAILY RF: 0 albuterol sulfate 2.5 mg /3 mL (0.083 %) Solution For Nebulization 2.5 mg INHALATION .Q4-6HRS PRN (Reason: Shortness Of Breath Or Wheezing) RF: 0 potassium chloride [Klor-Con M20] 20 mEq tablet,ER particles/crystals 20 meq PO DAILY RF: 0 bumetanide 1 mg tablet 1 mg PO DAILY RF: 0 metolazone 2.5 mg tablet 2.5 mg PO 2XWK RF: 0 gabapentin 600 mg tablet 1,200 mg PO HS RF: 0 sertraline 50 mg tablet 50 mg PO HS RF: 0 sennosides [senna] 8.6 mg tablet 8.6 mg PO BID RF: 0 prednisone 10 mg tablet 10 mg PO DAILY RF: 0 amlodipine [Norvasc] 10 mg tablet 10 mg PO DAILY RF: 0 buspirone 10 mg tablet 10 mg PO BID RF: 0 lorazepam 1 mg tablet 0.5 mg PO Q4H PRN (Reason: Anxiety) RF: 0 methadone 5 mg tablet 2.5 mg PO DAILY RF: 0 hydromorphone [Dilaudid] 1 mg/mL liquid 1 mg PO Q2H PRN (Reason: Pain) RF: 0 ranitidine HCl [Zantac] 150 mg Tablet 150 mg PO BID RF: 0 atorvastatin 20 mg tablet 20 mg PO DAILY RF: 0 levothyroxine 88 mcg tablet 88 mcg PO DAILY RF: 0 Referrals Referrals: Babak Melendez MD [Primary Care Provider] - Discharge Problem: Acute knee pain Qualifiers: Laterality: right Qualified Code(s): M25.561 - Pain in right knee Fall Qualifiers: Encounter type: initial encounter Qualified Code(s): W19.XXXA - Unspecified fall, initial encounter Acute foot pain Qualifiers: Laterality: right Qualified Code(s): M79.671 - Pain in right foot
--- NOTE | 2020-07-27 13:06 | XRay Report ---
XR wrist RT 2V CLINICAL HISTORY: trauma COMPARISON: Right wrist radiographs 07/23/2020. FINDINGS: Distal right radial plate and screws are noted. There is an old, healed distal right radia l fracture. No acute fracture is noted. A well-corticated ossicle along the ulnar styloid is unchange d. This is old. There is moderate osteoarthritis within the right first carpometacarpal joint. IMPRESSION: 1. No acute fracture or dislocation of the right wrist. 2. Healed distal right radial fracture status post internal fixation. ACT 112: Negative or not required by law. Electronically signed by: Quentin Maier M.D. 07/27/2020 1:04 PM
--- NOTE | 2020-07-27 13:08 | XRay Report ---
XR foot RT 2V CLINICAL HISTORY: trauma COMPARISON: Right ankle radiographs July 18, 2017. Right foot radiograph October 18, 2008. FINDINGS: Previous hindfoot fusion is noted. No acute fracture within the right foot is noted. There is osteopenia. 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 IMPRESSION: 1. No acute fracture or dislocation within the right foot. 2. Previous hindfoot fusion. 3. Severe osteoarthritis within the right midfoot. ACT 112: Negative or not required by law. Electronically signed by: Quentin Maier M.D. 07/27/2020 1:07 PM
[2020-07-27] MEDS ORDERED: HYDROmorphone HCL 2 MG TAB PO STA (13:13)
--- NOTE | 2020-07-27 17:46 | History & Physical Report ---
Date of Service July 27, 2020 Assessment & Plan (1) Fall: (2) Ambulatory dysfunction: -Admit to [facility] -Patient presenting from home with frequent falls and generalized weakness -Currently on home hospice. Given increased falls and weakness, an attempt has been made to place patient from home to nursing facility for further care however due to COVID-19 restrictions, this was unsuccessful. -Continue home pain medications -Case management evaluation for placement -Was seen in ED on 07/23 for fall and right brow laceration, had sutures placed, which need to be removed ~ 08/02 (3) HTN (hypertension): -BP controlled, continue amlodipine, metoprolol (4) Chronic right-sided CHF (congestive heart failure): -Appears euvolemic, continue home diuretics (5) PAF (paroxysmal atrial fibrillation): -Rate controlled on metoprolol, rhythm controlled on propafenone -Not anticoagulated secondary to history of GI bleeding (6) Chronic respiratory failure with hypoxia: (7) COPD (chronic obstructive pulmonary disease): -No acute issues (8) DVT prophylaxis: -Deferred due to hospice status History of Present Illness Chief Complaint: Fall Primary Care Provider: Babak Melendez MD 70-year-old female with PMH chronic hypoxic respiratory failure, COPD, chronic right-sided CHF, paroxysmal atrial fibrillation, CKD stage III, HTN, and other problems listed below who presents to the ED for evaluation after fall. Patient is currently home on hospice. She has been having several falls recently. An attempt was made to place patient from home to nursing facility however due to COVID-19 restrictions, this was not possible. Patient reports that today she was walking with her walker when her legs gave out from under her and she fell onto her knees. Daughter was unable to get her off the ground. Patient reports having pain all over. She has chronic shortness of breath which is at baseline. No chest pain. Denies lightheadedness, dizziness, diaphoresis, syncopal events. No abdominal pain, nausea, vomiting, diarrhea. Denies any other recent illnesses, fevers, chills. No urinary symptoms. In the ED, extensive imaging is negative for acute fractures or findings. Patient received Dilaudid 1 mg p.o. Allergies Allergy/AdvReac Type Severity Reaction Status Date / Time adhesive Allergy Severe RED RASH Verified 07/23/20 14:22 latex AdvReac Mild TAPE-SORE Verified 07/23/20 14:22 morphine AdvReac Mild DELUSIONS Verified 07/23/20 14:22 Home Medications Medication Instructions Recorded Confirmed Type metoprolol succinate 50 mg PO DAILY 03/12/18 07/27/20 History propafenone 150 mg PO Q8H 03/12/18 07/27/20 History albuterol sulfate 2.5 mg INHALATION .Q4-6HRS PRN 08/07/18 07/27/20 History potassium chloride [Klor-Con M20] 20 meq PO DAILY 09/27/19 07/27/20 History bumetanide 1 mg PO DAILY 12/02/19 07/27/20 History gabapentin 1,200 mg PO HS 07/05/20 07/27/20 History metolazone 2.5 mg PO 2XWK 07/05/20 07/27/20 History sertraline 50 mg PO HS 07/05/20 07/27/20 History amlodipine [Norvasc] 10 mg PO DAILY 07/27/20 07/27/20 History atorvastatin 20 mg PO DAILY 07/27/20 07/27/20 History buspirone 10 mg PO BID 07/27/20 07/27/20 History hydromorphone [Dilaudid] 1 mg PO Q2H PRN 07/27/20 07/27/20 History levothyroxine 88 mcg PO DAILY 07/27/20 07/27/20 History lorazepam 0.5 mg PO Q4H PRN 07/27/20 07/27/20 History methadone 2.5 mg PO DAILY 07/27/20 07/27/20 History prednisone 10 mg PO DAILY 07/27/20 07/27/20 History ranitidine HCl [Zantac] 150 mg PO BID 07/27/20 07/27/20 History sennosides [senna] 8.6 mg PO BID 07/27/20 07/27/20 History Past Med/Surg History Medical History Asthma Chronic respiratory failure with hypoxia Chronic right-sided CHF (congestive heart failure) CKD (chronic kidney disease), stage III COPD (chronic obstructive pulmonary disease) COVID-19 Depression Dyslipidemia GERD (gastroesophageal reflux disease) HTN (hypertension) Hypothyroidism EVONNE (iron deficiency anemia) Lumbar spinal stenosis Morbid obesity MRSA (methicillin resistant staph aureus) culture positive Obesity hypoventilation syndrome PAF (paroxysmal atrial fibrillation) Seborrheic dermatitis Surgical History History of appendectomy 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 Hx of cholecystectomy S/P cervical spinal fusion S/P wrist surgery Family History Father Trauma Mother Diabetes Cerebral aneurysm Daughter Bipolar 1 disorder Social History Smoking Status: Former smoker Cigarettes Per Day: quit 30 years ago; Second Hand Exposure: No; Hx Alcohol Use: No Hx Substance Use: No Preferred Language: Kinyarwanda Communication Ability: Effective Dog Walker Required: No Beliefs That Will Affect Care: None marital status: Current Living Situation: Family Current Living Situation Comment: daughter, grandson, great grandson, grandaughters How many Children do You have: 1 Feels Safe at Home: Yes Safety Concerns: Feels Safe At This Time Assistive Devices: Denture - Upper and Walker Review of Systems Review of Systems: ROS per HPI, all other systems reviewed and negative Physical Exam Constitutional: WD/WN, vitals as above Eyes: PERRL, conjunctivae normal, anicteric sclerae ENMT: external ear and nose normal, oropharynx normal Respiratory: normal respiratory effort; no respiratory distress Auscultation: + diminished lung sounds Coarse breath sounds bilaterally Cardiovascular: Rate/Rhythm: regular rate and regular rhythm Vessels: normal peripheral pulses Extremities: + edema (+1 BLE) Gastrointestinal (Abdomen): normal bowel sounds, soft, nontender, no hepatosplenomegaly Musculoskeletal: no cyanosis or clubbing, extremities motor strength 5/5 Skin: no rashes, warm and dry + wound (Sutures noted over right eyebrow) Neurologic: PERRL, EOMI, accommodation nl, no face palsy, no dysarthria Psychiatric: A+Ox3, euthymic affect Results & Data Results & Data ([facility]) Vital Signs (Past 12 Hours) Vital Signs Temp Pulse Pulse Resp BP BP Pulse Ox 07/27/20 17:00 64 16 124/46 L 07/27/20 16:32 70 16 07/27/20 16:31 72 14 115/64 99 07/27/20 16:30 71 17 07/27/20 16:01 63 17 07/27/20 16:00 62 14 109/43 L 99 07/27/20 15:31 64 14 07/27/20 15:30 65 15 112/45 L 99 07/27/20 15:00 66 18 112/44 L 99 07/27/20 14:32 67 17 07/27/20 14:31 65 18 118/42 L 98 07/27/20 14:30 69 18 07/27/20 14:00 68 16 132/50 L 98 07/27/20 13:52 79 20 131/57 L 07/27/20 13:32 74 17 96 07/27/20 13:31 73 13 131/57 L 100 07/27/20 13:30 74 20 99 07/27/20 13:00 65 16 124/45 L 100 07/27/20 12:33 69 19 07/27/20 12:32 73 20 105/58 L 99 07/27/20 12:30 73 18 07/27/20 12:00 73 17 126/59 L 100 07/27/20 11:32 67 16 100 07/27/20 11:31 64 20 118/50 L 100 07/27/20 11:30 67 16 99 07/27/20 11:05 69 17 141/50 H 100 07/27/20 11:03 77 22 135/81 97 07/27/20 11:00 77 21 99 07/27/20 10:56 36.6 C 77 22 135/81 97 07/27/20 10:54 69 17 99 07/27/20 10:50 72 20 135/81 99 Laboratory Results CXR IMPRESSION: 1. No pneumothorax. 2. No significant change in mild interstitial thickening. This may reflect vascular congestion superimposed upon interstitial lung disease. 3. Right midlung opacity which favors atelectasis or scarring. A 1.4 cm left lower lung nodular density which is of questionable significance. Follow-up PA and lateral chest radiographs in one month are recommended. RIGHT FOOT X-RAY IMPRESSION: 1. No acute fracture or dislocation within the right foot. 2. Previous hindfoot fusion. 3. Severe osteoarthritis within the right midfoot. LEFT KNEE XR IMPRESSION: 1. No acute fracture. 2. Moderate to severe left knee osteoarthritis. RIGHT KNEE XR IMPRESSION: 1. No acute fracture. 2. Moderate to severe right knee osteoarthritis. PELVIS X-RAY IMPRESSION: 1. No acute fracture within the pelvis or hips. 2. Partial visualization of the total right hip arthroplasty. Visualized portions intact. RIGHT WRIST XR IMPRESSION: 1. No acute fracture or dislocation of the right wrist. 2. Healed distal right radial fracture status post internal fixation. Code Status & VTE Plan VTE Prophylaxis Plan VTE Prophylaxis will be ordered: No Supervising Physician Co-Signing Physician Notes delayed entry date of service noted above Attending Addendum: care coordinated with EVELYN Doherty please refer to her notes for full details, I agree with her notes patient seen and examined, records reviewed by myself as well on exam, patient seen sitting up in bed, about to have dinner states she feels fine overall denies active headache, dizziness, chest pain, dyspnea, palpitations no other symptoms VS noted and reviewed oriented x 3, not in distress, speaks in sentences with no effort nor accessory muscle use head: (+) laceration on the right eyebrow with sutures in place normal rate, regular rhythm, no murmurs clear breath sounds bilaterally non distended, soft, nontender no bipedal edema, erythema, warmth no neuro deficits ASSESSMENT AND PLAN Ambulatory Dysfunction -likely from Deconditioning -awaiting placement to SNF s/p Fall Right Eyebrow Laceration -- suture removal 08/02 other diagnoses and plan of care as per EVELYN Doherty's notes Jai Fonseca MD (1) Fall Encounter type: initial encounter Qualified Code(s): W19.XXXA - Unspecified fall, initial encounter
[2020-07-27] MEDS ORDERED: HYDROmorphone HCL 2 MG TAB PO PRN (17:55)
[2020-07-27] MEDS ORDERED: LORazepam 1 MG TAB PO PRN (17:55)
[2020-07-27] MEDS ORDERED: LORazepam 0.5 MG TAB PO PRN (17:57)
[2020-07-27] MEDS: PROPAFENONE HCL 150 MG TABLET PO SCH ×2 (19:52→19:58)
[2020-07-27] MEDS: SERTRALINE HCL 50 MG TABLET PO SCH (20:00)
[2020-07-27] MEDS: FAMOTIDINE 20 MG TAB PO SCH (20:00)
[2020-07-27] MEDS: busPIRone 5 MG TAB PO SCH (20:00)
[2020-07-27] MEDS: GABAPENTIN 600 MG TAB PO SCH (20:00)
[2020-07-27] MEDS: SENNA 8.6 MG TAB PO SCH (20:00)
[2020-07-27] MEDS: HYDROmorphone HCL 2 MG TAB PO PRN ×2 (20:16→22:06)
[2020-07-27] MEDS: ACETAMINOPHEN 325 MG TAB PO PRN (22:07)
[2020-07-27] MEDS: ALBUTEROL 0.083% NEBU SOLN 3 ML VIAL INH PRN (22:22)
[2020-07-27] MEDS: ALBUT/IPRATROP 3MG/0.5MG NEB 3 ML VIAL NEB SCH (22:39)
[2020-07-28] MEDS: LEVOTHYROXINE SODIUM 88 MCG TABLET PO SCH (05:38)
[2020-07-28] MEDS: PROPAFENONE HCL 150 MG TABLET PO SCH ×3 (05:38→21:44)
[2020-07-28] MEDS: HYDROmorphone HCL 2 MG TAB PO PRN ×4 (05:43→21:46)
[2020-07-28] MEDS: ACETAMINOPHEN 325 MG TAB PO PRN ×4 (05:44→21:45)
[2020-07-28] MEDS: ALBUT/IPRATROP 3MG/0.5MG NEB 3 ML VIAL NEB SCH ×4 (06:59→20:02)
[2020-07-28] MEDS ORDERED: METHADONE HCL 5 MG TAB PO SCH (09:00)
[2020-07-28] MEDS: METOPROLOL SUCC 50MG EXT REL TAB PO SCH (09:25)
[2020-07-28] MEDS: SENNA 8.6 MG TAB PO SCH ×2 (09:25→21:44)
[2020-07-28] MEDS: POTASSIUM CHLORIDE CRTAB 20 MEQ TABCR PO SCH (09:25)
[2020-07-28] MEDS: FAMOTIDINE 20 MG TAB PO SCH ×2 (09:26→21:45)
[2020-07-28] MEDS: BUMETANIDE 1 MG TAB PO SCH (09:26)
[2020-07-28] MEDS: busPIRone 5 MG TAB PO SCH ×2 (09:26→21:44)
[2020-07-28] MEDS: predniSONE 10 MG TABLET PO SCH (09:27)
[2020-07-28] MEDS: amLODIPine BESYLATE 5 MG TAB PO SCH (09:27)
[2020-07-28] MEDS: ATORVASTATIN 20 MG TAB PO SCH (09:27)
[2020-07-28] MEDS: METHADONE HCL 5 MG TAB PO SCH (10:09)
--- NOTE | 2020-07-28 17:03 | Hospitalist Progress Note ---
Date of Service July 28, 2020 Assessment & Plan (1) Fall: (2) Ambulatory dysfunction: per EVELYN Doherty's notes: -Patient presenting from home with frequent falls and generalized weakness -Currently on home hospice. Given increased falls and weakness, an attempt has been made to place patient from home to nursing facility for further care however due to COVID-19 restrictions, this was unsuccessful. -continue pain management for right hand and foot pain- no fractures per xray -Was seen in ED on 07/23 for fall and right brow laceration, had sutures placed, which need to be removed ~ 08/02 healing well (3) HTN (hypertension): -BP controlled, continue amlodipine, metoprolol (4) Chronic right-sided CHF (congestive heart failure): -euvolemic, continue home diuretics (5) PAF (paroxysmal atrial fibrillation): -Rate controlled on metoprolol, rhythm controlled on propafenone -Not anticoagulated secondary to history of GI bleeding (6) Chronic respiratory failure with hypoxia: (7) COPD (chronic obstructive pulmonary disease): -No acute issues (8) DVT prophylaxis: -Deferred due to hospice status Admission and Anticipated Discharge Date Admission Date: July 27, 2020 Subjective ff up for ambulatory dysfunction seen resting in bed, sitting up in good spirits, oriented states she feels fine overall except for mild hand and foot pain- Right no headache, dizziness, chest pain, dyspnea, abdominal pain no other symptoms Review of Systems Review of Systems: All systems reviewed & are unremarkable except as noted in Subjective Physical Exam Physical Exam: General- oriented x 2, not in distress, speaks in sentences with no effort or accessory muscle use Eyes- anicteric sutured r eyebrow laceration- healing well, no bleeding Neck- no JVD Lungs- clear breath sounds bilaterally, no rales/wheezes Heart- normal rate, regular rhythm; no murmurs Abdomen- normal bowel sounds, nondistended, soft, nontender Extremities- (+) faint bruise anterior right ankle, middle toe of right foot no pretibial edema, no calf tenderness Neuro- alert, oriented x 3; no gross focal neurologic deficits Skin- warm & dry Results & Data Results & Data ([facility]) Vital Signs (Past 12 Hours) Vital Signs Temp Pulse Resp BP Pulse Ox 07/28/20 15:24 36.6 C 73 18 151/78 H 93 07/28/20 15:08 72 16 97 07/28/20 11:13 75 07/28/20 07:38 36.6 C 68 16 129/74 95 07/28/20 06:59 74 18 97 (1) Fall Encounter type: initial encounter Qualified Code(s): W19.XXXA - Unspecified fall, initial encounter
[2020-07-28] MEDS: SERTRALINE HCL 50 MG TABLET PO SCH (21:44)
[2020-07-28] MEDS: GABAPENTIN 600 MG TAB PO SCH (21:44)
[2020-07-28] MEDS: ALBUTEROL 0.083% NEBU SOLN 3 ML VIAL INH PRN (23:50)
[2020-07-29 01:20] LABS: Partial Thromboplastin Ratio 0.9; Partial Thromboplastin Time 25.8 Seconds (21.0-31.0)
[2020-07-29] MEDS: HYDROmorphone HCL 2 MG TAB PO PRN ×5 (01:20→23:06)
[2020-07-29] MEDS ORDERED: COUGH DROP (SUGAR FREE) LOZ 24 LOZ/1 BOX BUCCAL PRN (01:57)
[2020-07-29] MEDS: ACETAMINOPHEN 325 MG TAB PO PRN ×3 (02:14→21:04)
[2020-07-29] MEDS: LIDOCAINE 5% 1 PATCH TD SCH (03:19)
[2020-07-29] MEDS ORDERED: DOXYCYCLINE HYCLATE 100 MG in DEXTROSE 5% 100 ML IV STA (03:25)
--- NOTE | 2020-07-29 05:33 | Communication Note ---
Date of Service: July 29, 2020 Late entry Patient overnight patient complained of transient double vision and pleuritic right-sided chest pain with junky cough symptoms. Cough symptoms noted 2 days prior to admission as per patient. No unusual shortness of breath CT head initial read: No acute intracranial abnormality CT chest initial read: Bronchiectasis, COPD, cardiomegaly, old healed lateral right sixth and seventh rib fractures, healed posterior right 10th rib fractures. AP Pleuritic right-sided chest pain secondary to complicated bronchitis, old rib fractures Doxycycline Lidoderm patch Will relay to AM provider.
[2020-07-29] MEDS: PROPAFENONE HCL 150 MG TABLET PO SCH ×3 (05:45→21:08)
[2020-07-29] MEDS: LEVOTHYROXINE SODIUM 88 MCG TABLET PO SCH (05:45)
--- NOTE | 2020-07-29 06:59 | CT Scan Report ---
CT head/brain wo con CLINICAL HISTORY: 70 years-old Female with double vision, hx head trauma. Acute head trauma TECHNIQUE: Multiple axial CT images of the head were obtained without contrast. A dose lowering tech nique was utilized adhering to the principles of ALARA. CT DOSE: 537.48 mGy.cm COMPARISON: Head CT 07/23/2020 FINDINGS: No acute intracranial hemorrhage, midline shift, intracranial mass, hydrocephalus, territorial ischem ia or abnormal extra-axial collection. Patchy white matter hypodensities suggest chronic microvascula r ischemic disease. Age-related involutional changes. The calvarium is intact. There is decreased size of the previously noted subacute supraorbital scalp hematoma/contusion. The paranasal sinuses, mastoid air cells, and middle ear cavities are clear. IMPRESSION: No acute intracranial abnormality or calvarial fracture. ACT 112: Negative or not required by law. The above report was generated using voice recognition software. It may contain grammatical, syntax o r spelling errors. Electronically signed by: Ariel Shah M.D. 07/29/2020 6:58 AM
[2020-07-29] MEDS: ALBUT/IPRATROP 3MG/0.5MG NEB 3 ML VIAL NEB SCH ×4 (07:00→19:51)
--- NOTE | 2020-07-29 07:43 | CT Scan Report ---
CT chest diagnostic wo con CLINICAL HISTORY: Right-sided chest pain. History of trauma. COMPARISON STUDY: 09/27/2019 CT DOSE: 987.33 mGy.cm TECHNIQUE: CT of the thorax was performed from the thoracic inlet to the lung bases. Images are revi ewed in the axial, sagittal, and coronal planes. IV contrast was not administered for this examinatio n. A dose lowering technique was utilized adhering to the principles of ALARA. FINDINGS: Thyroid: There is a persistent 50 mm right lobe thyroid nodule. Thoracic aorta: The thoracic aorta is normal in course and caliber, noting standard 3 vessel arch ravindra alvaro. Heart: The heart is enlarged. There are coronary artery calcifications. There is no pericardial effus ion. There is enlargement of the central pulmonary arteries. Pulmonary arterial hypertension is suspe cted Lungs and pleural spaces: There is pulmonary emphysema. There is lower lobe bronchiectasis and parenc hymal consolidation. There are peripheral airspace opacities within the right upper lobe which appear progressive. Mediastinum: There are borderline enlarged mediastinal lymph nodes. Karuna: Mildly enlarged hilar lymph nodes are suspected. Axilla: Clear. Upper abdomen: Partially visualized upper abdominal viscera is within normal limits. Skeletal structures: There are old right-sided rib deformities. There is an old thoracic compression fractures status post vertebroplasty. IMPRESSION: 1. Stable 15 mm right lobe thyroid nodule 2. Persistent mild mediastinal and hilar lymphadenopathy 3. Pulmonary emphysema 4. Lower lobe bronchiectasis with progressive lower lobe atelectasis/consolidation, and developing pe ripheral right upper lobe airspace opacities. An acute infectious process cannot be excluded and clin ical and radiographic follow-up is recommended ACT 112: Negative or not required by law. Electronically signed by: Fox Garcia M.D. 07/29/2020 7:41 AM
[2020-07-29] MEDS ORDERED: metOLazone 2.5 MG TABLET PO SCH (09:00)
--- NOTE | 2020-07-29 09:33 | Hospitalist Progress Note ---
Date of Service Late entry date of service noted below July 29, 2020 Assessment & Plan (1) Fall: (2) Ambulatory dysfunction: per EVELYN Doherty's notes: -Patient presenting from home with frequent falls and generalized weakness -Currently on home hospice. Given increased falls and weakness, an attempt has been made to place patient from home to nursing facility for further care however due to COVID-19 restrictions, this was unsuccessful. -continue pain management for right hand and foot pain- no fractures per xray -Was seen in ED on 07/23 for fall and right brow laceration, had sutures placed, which need to be removed ~ 08/02 healing well (3) HTN (hypertension): -BP controlled, continue amlodipine, metoprolol (4) Chronic right-sided CHF (congestive heart failure): -euvolemic, continue home diuretics (5) PAF (paroxysmal atrial fibrillation): -Rate controlled on metoprolol, rhythm controlled on propafenone -Not anticoagulated secondary to history of GI bleeding (6) Chronic respiratory failure with hypoxia: (7) COPD (chronic obstructive pulmonary disease): Acute bronchitis --doxycycline and nebs every 6 hours ordered --continue to monitor (8) DVT prophylaxis: -Deferred due to hospice status Admission and Anticipated Discharge Date Admission Date: July 27, 2020 Subjective Follow-up for status post falls, weakness, etc. Seen resting in bedside chair, playing bingo with her iPad comfortable, not in distress, on 2 L of nasal cannula states she feels fine overall states breathing is improving, has occasional cough no chest pain, palpitations, dizziness, headache, nausea vomiting abdominal pain fevers or chills, no other symptoms Review of Systems Review of Systems: All systems reviewed & are unremarkable except as noted in Subjective Physical Exam Physical Exam: General- oriented x 2, not in distress, speaks in sentences with no effort or accessory muscle use Eyes- anicteric Neck- no JVD Lungs-positive rhonchi, mild, bilaterally good air entry bilaterally Heart- normal rate, regular rhythm; no murmurs Abdomen- normal bowel sounds, nondistended, soft, nontender Extremities- no pretibial edema, no calf tenderness Neuro- alert, oriented x 3; no gross focal neurologic deficits Skin- warm & dry Results & Data Results & Data ([facility]) Vital Signs (Past 12 Hours) Vital Signs Temp Pulse Resp BP Pulse Ox 07/29/20 07:17 36.5 C 69 18 149/77 H 100 07/29/20 07:00 68 18 99 07/28/20 23:50 77 18 98 07/28/20 23:28 36.9 C 70 18 145/80 H 99 (1) Fall Encounter type: initial encounter Qualified Code(s): W19.XXXA - Unspecified fall, initial encounter
[2020-07-29] MEDS: ATORVASTATIN 20 MG TAB PO SCH (10:30)
[2020-07-29] MEDS: METOPROLOL SUCC 50MG EXT REL TAB PO SCH (10:30)
[2020-07-29] MEDS: predniSONE 10 MG TABLET PO SCH (10:31)
[2020-07-29] MEDS: POTASSIUM CHLORIDE CRTAB 20 MEQ TABCR PO SCH (10:31)
[2020-07-29] MEDS: FAMOTIDINE 20 MG TAB PO SCH ×2 (10:31→21:06)
[2020-07-29] MEDS: busPIRone 5 MG TAB PO SCH ×2 (10:31→21:05)
[2020-07-29] MEDS: amLODIPine BESYLATE 5 MG TAB PO SCH (10:31)
[2020-07-29] MEDS: BUMETANIDE 1 MG TAB PO SCH (10:31)
[2020-07-29] MEDS: SENNA 8.6 MG TAB PO SCH ×2 (10:35→21:06)
[2020-07-29] MEDS: METHADONE HCL 5 MG TAB PO SCH (10:45)
--- NOTE | 2020-07-29 18:21 | Electrocardiogram Report ---
Test Reason : Blood Pressure : / mmHG Vent. Rate : 071 BPM Atrial Rate : 071 BPM P-R Int : 194 ms QRS Dur : 108 ms QT Int : 418 ms P-R-T Axes : -03 075 081 degrees QTc Int : 454 ms Normal sinus rhythm Incomplete right bundle branch block Borderline ECG When compared with ECG of 23-JUL-2020 13:27, No significant change was found Confirmed by Darrion Fontaine ([id number]) on 07/29/2020 6:21:20 PM Referred By: REFERRED SELF Confirmed By:Darrion Fontaine
[2020-07-29] MEDS: GABAPENTIN 600 MG TAB PO SCH (21:06)
[2020-07-29] MEDS: SERTRALINE HCL 50 MG TABLET PO SCH (21:07)
[2020-07-29] MEDS: DOXYCYCLINE HYCLATE 100 MG CAP PO SCH (21:07)
[2020-07-30] MEDS: PROPAFENONE HCL 150 MG TABLET PO SCH ×3 (05:34→20:17)
[2020-07-30] MEDS: LEVOTHYROXINE SODIUM 88 MCG TABLET PO SCH (05:34)
[2020-07-30] MEDS: ATORVASTATIN 20 MG TAB PO SCH (07:58)
[2020-07-30] MEDS: DOXYCYCLINE HYCLATE 100 MG CAP PO SCH ×2 (07:58→20:15)
[2020-07-30] MEDS: POTASSIUM CHLORIDE CRTAB 20 MEQ TABCR PO SCH (07:59)
[2020-07-30] MEDS: busPIRone 5 MG TAB PO SCH ×2 (07:59→20:15)
[2020-07-30] MEDS: FAMOTIDINE 20 MG TAB PO SCH ×2 (07:59→20:15)
[2020-07-30] MEDS: amLODIPine BESYLATE 5 MG TAB PO SCH (07:59)
[2020-07-30] MEDS: LIDOCAINE 5% 1 PATCH TD SCH (07:59)
[2020-07-30] MEDS: SENNA 8.6 MG TAB PO SCH ×2 (07:59→20:18)
[2020-07-30] MEDS ORDERED: methylPREDNISolone 60 MG in SYRINGE 0 ML IV ONE (08:30)
[2020-07-30] MEDS ORDERED: FUROSEMIDE 40 MG in SYRINGE 0 ML IV ONE (08:30)
[2020-07-30] MEDS: ALBUT/IPRATROP 3MG/0.5MG NEB 3 ML VIAL NEB SCH ×4 (09:05→19:13)
[2020-07-30] MEDS: SODIUM CHLOR 7% 4 ML NEB NEB SCH ×2 (09:05→19:23)
[2020-07-30] MEDS: HYDROmorphone HCL 2 MG TAB PO PRN ×4 (09:06→23:23)
[2020-07-30] MEDS: METOPROLOL SUCC 50MG EXT REL TAB PO SCH (09:06)
[2020-07-30] MEDS: METHADONE HCL 5 MG TAB PO SCH (09:07)
--- NOTE | 2020-07-30 17:42 | XRay Report ---
XR chest 1V portable CLINICAL HISTORY: wheezing, r/o CHF exacerbation COMPARISON STUDY: 07/27/2020 FINDINGS: The heart remains enlarged. There is persistent interstitial thickening. There is a persist ent airspace opacity at the base the right upper lobe laterally. Increased markings the involving the lower lobes, likely represent bronchiectatic change. There are no significant pleural effusions[ IMPRESSION: 1. No significant change from the prior study 2. Stable cardiomegaly and interstitial thickening/edema 3. Stable focal airspace opacity at the base of the right upper lobe laterally ACT 112: Negative or not required by law. Electronically signed by: Fox Garcia M.D. 07/30/2020 5:41 PM
[2020-07-30] MEDS: methylPREDNISolone 40 MG in SYRINGE 0 ML IV SCH (17:46)
--- NOTE | 2020-07-30 18:55 | Hospitalist Progress Note ---
Date of Service July 30, 2020 Assessment & Plan (1) Fall: (2) Ambulatory dysfunction: per EVELYN Doherty's notes: -Patient presenting from home with frequent falls and generalized weakness -Currently on home hospice. Given increased falls and weakness, an attempt has been made to place patient from home to nursing facility for further care however due to COVID-19 restrictions, this was unsuccessful. -continue pain management for right hand and foot pain- no fractures per xray -Was seen in ED on 07/23 for fall and right brow laceration, had sutures placed, which need to be removed ~ 08/02 healing well (3) HTN (hypertension): -BP controlled, continue amlodipine, metoprolol (4) Chronic right-sided CHF (congestive heart failure): - may have mild acute on chronic R sided CHF - Lasix 40mg IV - hold oral medications (5) PAF (paroxysmal atrial fibrillation): -Rate controlled on metoprolol, rhythm controlled on propafenone -Not anticoagulated secondary to history of GI bleeding (6) Chronic respiratory failure with hypoxia: (7) COPD (chronic obstructive pulmonary disease): COPD Exacerbation secondary to Pneumonia -- solumedrol 40mg IV q8h Zosyn + Doxycycline Nebs --continue to monitor (8) DVT prophylaxis: -Deferred due to hospice status Admission and Anticipated Discharge Date Admission Date: July 27, 2020 Subjective ff up for Falls, Weakness, etc called by RN as patient saturating 84% on CPAP, 4 L O2 increased to 6 L, improved to 96% resting in bed, not in distress states breathing is ok, has productive cough denies chest pain, palpitations, dizziness no other symptoms re-evaluated in the afternoon wheezing has improved patient not in distress on 2 L nasal cannula Review of Systems Review of Systems: All systems reviewed & are unremarkable except as noted in Subjective Physical Exam Physical Exam: General- oriented x 2, not in distress, speaks in sentences with no effort or accessory muscle use Head- (+) sutured laceration on the right eyebrow- healing well Eyes- anicteric Neck- no JVD Lungs- (+) bilateral wheeze with rhonchi Heart- normal rate, regular rhythm; no murmurs Abdomen- normal bowel sounds, nondistended, soft, nontender Extremities- no pretibial edema, no calf tenderness Neuro- alert, oriented x 2; no gross focal neurologic deficits Skin- warm & dry Results & Data Results & Data ([facility]) Vital Signs (Past 12 Hours) Vital Signs Temp Pulse Resp BP BP Pulse Ox 07/30/20 15:12 36.7 C 76 16 125/68 98 07/30/20 14:55 84 18 91 07/30/20 12:13 71 18 97 07/30/20 09:05 75 18 100 07/30/20 07:15 36.4 C L 75 18 134/75 84 L (1) Fall Encounter type: initial encounter Qualified Code(s): W19.XXXA - Unspecified fall, initial encounter
[2020-07-30] MEDS: GABAPENTIN 600 MG TAB PO SCH (20:15)
[2020-07-30] MEDS: SERTRALINE HCL 50 MG TABLET PO SCH (20:15)
[2020-07-30] MEDS: ACETAMINOPHEN 325 MG TAB PO PRN (20:24)
[2020-07-31] MEDS: HYDROmorphone HCL 2 MG TAB PO PRN ×5 (01:45→21:57)
[2020-07-31] MEDS: ACETAMINOPHEN 325 MG TAB PO PRN ×5 (01:45→21:56)
[2020-07-31] MEDS: methylPREDNISolone 40 MG in SYRINGE 0 ML IV SCH ×3 (01:46→17:41)
[2020-07-31] MEDS: LEVOTHYROXINE SODIUM 88 MCG TABLET PO SCH (05:34)
[2020-07-31] MEDS: PROPAFENONE HCL 150 MG TABLET PO SCH ×3 (05:34→21:08)
[2020-07-31 06:22] LABS: Hemoglobin 8.2 g/dL (12.0-16.0); Mean Corpuscular Hemoglobin 28.7 pg (25-34); Mean Corpuscular Hgb Conc 30.4 g/dL (32-36); Mean Corpuscular Volume 94.4 fL (80-100); Mean Platelet Volume 9.3 fL (7.4-10.4); Platelet Count 251 K/uL (130-400); RDW Coefficient of Variation 16.1 % (11.5-14.5); RDW Standard Deviation 55.5 fL (36.4-46.3); Red Blood Count 2.86 M/uL (4.2-5.4); White Blood Count 13.31 K/uL (4.8-10.8)
[2020-07-31 06:55] LABS: Albumin Level 2.6 gm/dl (3.4-5.0); Creatinine Clr Calc Pharmacy 31.3 ml/min; Est GFR (African American) 29.8; Est GFR (Non-African American) 25.7; Magnesium 1.8 mg/dl (1.8-2.4); Potassium 4.5 mmol/L (3.5-5.1)
[2020-07-31 06:57] LABS: Albumin Globulin Ratio 0.6 (0.9-2); Bilirubin,Total 0.2 mg/dl (0.2-1); Globulin 4.5 gm/dl (2.5-4.0); Phosphorus 2.7 mg/dl (2.5-4.9); Total Protein 7.1 gm/dl (6.4-8.2)
[2020-07-31] MEDS: ALBUT/IPRATROP 3MG/0.5MG NEB 3 ML VIAL NEB SCH ×4 (07:05→19:08)
[2020-07-31] MEDS: SODIUM CHLOR 7% 4 ML NEB NEB SCH ×2 (07:06→19:08)
[2020-07-31] MEDS: amLODIPine BESYLATE 5 MG TAB PO SCH (08:21)
[2020-07-31] MEDS: DOXYCYCLINE HYCLATE 100 MG CAP PO SCH ×2 (08:21→21:09)
[2020-07-31] MEDS: ATORVASTATIN 20 MG TAB PO SCH (08:21)
[2020-07-31] MEDS: METHADONE HCL 5 MG TAB PO SCH (08:22)
[2020-07-31] MEDS: POTASSIUM CHLORIDE CRTAB 20 MEQ TABCR PO SCH (08:22)
[2020-07-31] MEDS: FAMOTIDINE 20 MG TAB PO SCH ×2 (08:22→21:09)
[2020-07-31] MEDS: METOPROLOL SUCC 50MG EXT REL TAB PO SCH (08:22)
[2020-07-31] MEDS: SENNA 8.6 MG TAB PO SCH ×2 (08:22→21:08)
[2020-07-31] MEDS: busPIRone 5 MG TAB PO SCH ×2 (08:22→21:09)
[2020-07-31] MEDS: LIDOCAINE 5% 1 PATCH TD SCH (08:23)
--- NOTE | 2020-07-31 15:37 | Hospitalist Progress Note ---
Date of Service July 31, 2020 Assessment & Plan (1) COPD with exacerbation: Improved this admission with current treatments including methylprednisolone and antibiotic therapy as well as scheduled bronchodilators. Some wheezing present on exam today. Cont current therapy. She continues at baseline oxygen needs. (2) Right upper lobe pneumonia: Progressive RUL pneumonia present on CT scan with expectorated sputum sample growing some bacteria that is not yet speciated. Cont current antibiotic therapy as she is improved from a respiratory standpoint and will work with microbiology on speciation ID when information is more available. (3) Frequent falls: multiple factors here including noncompliance with CPAP therapy, polypharmacy, adverse side effects of medications that are well known such as from narcotics, and benzodiazepines--she is on multiple offensive medications and multiple types of narcotics. Will discuss further with the family and patient and try to educate. (4) HTN (hypertension): -BP controlled, continue amlodipine, metoprolol (5) Chronic right-sided CHF (congestive heart failure): -euvolemic, continue home diuretics (6) PAF (paroxysmal atrial fibrillation): -Rate controlled on metoprolol, rhythm controlled on propafenone -Not anticoagulated secondary to history of GI bleeding (7) Chronic respiratory failure with hypoxia: currently at her baseline 4LPM and doing well (8) Morbid obesity: (9) DVT prophylaxis: SCDs/ambulation as tolerated No heparin has been offered this hospitalization so as to minimize discomfort as the patient is a Hospice patient DNR [facility] Admission and Anticipated Discharge Date Admission Date: July 27, 2020 Subjective 70 yo F with multiple comorbidities including CHF, obesity, and COPD presented with falls at home. -patient reports feeling better than admission -denies acute SOB and is breathing at her baseline, no additional respiratory symptoms reported at this time. -denies fevers or chills -denies chest pain -tolerating PO Review of Systems Review of Systems: All systems reviewed & are unremarkable except as noted in Subjective Physical Exam Physical Exam: CONSTITUTIONAL: morbidly obese, vitals as above, generally well-appearing EYES: normal conjunctivae, no scleral icterus ENT: external ear and nose normal, MMM RESPIRATORY: some lower lung wheezing bilaterally, no crackles or rales. normal respiratory effort CARDIOVASCULAR: regular rate and rhythm, S1 and 2 heard without murmurs, gallops or rubs, no JVD, no peripheral edema GASTROINTESTINAL: soft, nontender, nondistended, obese with pannus, no guarding MUSCULOSKELETAL: moves all extremities symmetrically with generalized weakness and physical deconditioning present. Laceration to right forehead that is sutured with good wound healing present and no evidence of drainage or erythema. SKIN: warm and dry NEUROLOGIC: CN 2-12 grossly intact, normal cognition, normal speech, no tremor PSYCHIATRIC: alert cooperative and oriented to person, place and time. Results & Data Results & Data ([facility]) Vital Signs (Past 12 Hours) Vital Signs Temp Pulse Resp BP BP Pulse Ox 07/31/20 15:11 67 18 99 07/31/20 15:08 36.6 C 67 18 149/67 H 99 07/31/20 12:54 149/69 H 07/31/20 11:16 70 18 97 07/31/20 07:15 36.5 C 83 21 172/93 H 173/68 H 94 07/31/20 07:06 66 18 96 07/31/20 05:30 62 148/71 H 95 Laboratory Results Short CBC 07/31/20 Range/Units 06:02 WBC 13.31 H (4.8-10.8) K/uL Hgb 8.2 L (12.0-16.0) g/dL Hct 27.0 L (37-47) % Plt Count 251 (130-400) K/uL BMP 07/31/20 06:02 Sodium 135 L Potassium 4.5 Chloride 93 L Carbon Dioxide 39 H BUN 55 H Creatinine 1.91 H Glucose 152 H Calcium 10.0 Liver Function 07/31/20 Range/Units 06:02 Total Bilirubin 0.2 (0.2-1) mg/dl AST 7 L (15-37) U/L ALT 15 (12-78) U/L Alkaline Phosphatase 79 (45-117) U/L Albumin 2.6 L (3.4-5.0) gm/dl Medications Administered Current Inpatient Medications Acetaminophen (Acetaminophen 325 Mg Tab) 650 mg PO Q4H PRN PRN Reason: pain/fever Stop: 08/26/20 17:37 Last Admin: 07/31/20 09:07 Dose: 650 mg Documented by: Albuterol (Albuterol 0.083% Nebu Soln 3 Ml Vial) 2.5 mg INH Q4H PRN PRN Reason: Shortness Of Breath Or Wheezin Stop: 08/26/20 17:37 Last Admin: 07/28/20 23:50 Dose: 2.5 mg Documented by: Albuterol (Albut/Ipratrop 3mg/0.5mg Neb 3 Ml Vial) 3 ml NEB QIDR [facility] Stop: 08/26/20 22:34 Last Admin: 07/31/20 15:11 Dose: 3 ml Documented by: Amlodipine Besylate (Amlodipine Besylate 5 Mg Tab) 10 mg PO DAILY [facility] Stop: 08/27/20 08:59 Last Admin: 07/31/20 08:21 Dose: 10 mg Documented by: Atorvastatin Calcium (Atorvastatin 20 Mg Tab) 20 mg PO DAILY [facility] Stop: 08/27/20 08:59 Last Admin: 07/31/20 08:21 Dose: 20 mg Documented by: Bumetanide (Bumetanide 1 Mg Tab) 1 mg PO DAILY [facility] Stop: 08/27/20 08:59 Last Admin: 07/29/20 10:31 Dose: 1 mg Documented by: Buspirone HCl (Buspirone 5 Mg Tab) 10 mg PO BID [facility] Stop: 08/26/20 20:59 Last Admin: 07/31/20 08:22 Dose: 10 mg Documented by: Doxycycline Hyclate (Doxycycline Hyclate 100 Mg Cap) 100 mg PO BID [facility] Stop: 08/05/20 20:59 Last Admin: 07/31/20 08:21 Dose: 100 mg Documented by: Famotidine (Famotidine 20 Mg Tab) 20 mg PO BID [facility] Stop: 08/26/20 20:59 Last Admin: 07/31/20 08:22 Dose: 20 mg Documented by: Gabapentin (Gabapentin 600 Mg Tab) 1,200 mg PO HS [facility] Stop: 08/26/20 20:59 Last Admin: 07/30/20 20:15 Dose: 1,200 mg Documented by: Hydromorphone HCl (Hydromorphone Hcl 2 Mg Tab) 1 mg PO Q2H PRN PRN Reason: Pain Stop: 08/10/20 17:54 Last Admin: 07/31/20 09:06 Dose: 1 mg Documented by: Methylprednisolone 40 mg/ (Syringe) 0.64 mls @ 1.5 mls/min IV Q8H [facility] Stop: 08/29/20 17:59 Last Admin: 07/31/20 09:07 Dose: 1.5 mls/min Documented by: Levothyroxine Sodium (Levothyroxine Sodium 88 Mcg Tablet) 88 mcg PO DAILYBB [facility] Stop: 08/27/20 06:29 Last Admin: 07/31/20 05:34 Dose: 88 mcg Documented by: Lidocaine (Lidocaine 5% 1 Patch) 1 patch TD QAM [facility] Stop: 08/28/20 02:59 Last Admin: 07/31/20 08:23 Dose: 1 patch Documented by: Lorazepam (Lorazepam 0.5 Mg Tab) 0.5 mg PO Q4H PRN PRN Reason: Anxiety Stop: 08/26/20 17:56 Menthol (Cough Drop (Sugar Free) Misti 24 Misti/1 Box) 1 misti BUCCAL PRN PRN PRN Reason: Sore Throat Stop: 08/28/20 01:56 Last Admin: 07/29/20 02:12 Dose: 1 misti Documented by: Methadone HCl (Methadone Hcl 5 Mg Tab) 2.5 mg PO DAILY [facility] Stop: 08/11/20 08:59 Last Admin: 07/31/20 08:22 Dose: 2.5 mg Documented by: Metolazone (Metolazone 2.5 Mg Tablet) 2.5 mg PO MoFr@0900 [facility] Stop: 08/28/20 08:59 Last Admin: 07/29/20 10:31 Dose: 2.5 mg Documented by: Metoprolol Succinate (Metoprolol Succ 50mg Ext Rel Tab) 50 mg PO DAILY [facility] Stop: 08/27/20 08:59 Last Admin: 07/31/20 08:22 Dose: 50 mg Documented by: Miscellaneous (Remove Lidoderm Patch) 1 ea N/A DAILY@2100 [facility] Stop: 08/28/20 15:59 Last Admin: 07/30/20 20:19 Dose: 1 ea Documented by: Potassium Chloride (Potassium Chloride Crtab 20 Meq Tabcr) 20 meq PO DAILY [facility] Stop: 08/27/20 08:59 Last Admin: 07/31/20 08:22 Dose: 20 meq Documented by: Prednisone (Prednisone 10 Mg Tablet) 10 mg PO DAILY [facility] Stop: 08/27/20 08:59 Last Admin: 07/29/20 10:31 Dose: 10 mg Documented by: Propafenone HCl (Propafenone Hcl 150 Mg Tablet) 150 mg PO Q8 [facility] Stop: 08/26/20 17:37 Last Admin: 07/31/20 12:53 Dose: 150 mg Documented by: Sennosides (Senna 8.6 Mg Tab) 8.6 mg PO BID [facility] Stop: 08/26/20 20:59 Last Admin: 07/31/20 08:22 Dose: 8.6 mg Documented by: Sertraline HCl (Sertraline Hcl 50 Mg Tablet) 50 mg PO HS [facility] Stop: 08/26/20 20:59 Last Admin: 07/30/20 20:15 Dose: 50 mg Documented by: Sodium Chloride (Sodium Chlor 7% 4 Ml Neb) 4 ml NEB BIDR [facility] Stop: 08/29/20 07:59 Last Admin: 07/31/20 07:06 Dose: 4 ml Documented by:
[2020-07-31] MEDS: GABAPENTIN 600 MG TAB PO SCH (21:09)
[2020-07-31] MEDS: SERTRALINE HCL 50 MG TABLET PO SCH (21:09)
[2020-08-01] MEDS: methylPREDNISolone 40 MG in SYRINGE 0 ML IV SCH ×2 (02:20→08:20)
[2020-08-01] MEDS: ACETAMINOPHEN 325 MG TAB PO PRN ×2 (05:40→10:40)
[2020-08-01] MEDS: HYDROmorphone HCL 2 MG TAB PO PRN (05:40)
[2020-08-01] MEDS: PROPAFENONE HCL 150 MG TABLET PO SCH ×2 (05:42→13:24)
[2020-08-01] MEDS: LEVOTHYROXINE SODIUM 88 MCG TABLET PO SCH (05:42)
[2020-08-01] MEDS: SODIUM CHLOR 7% 4 ML NEB NEB SCH (07:57)
[2020-08-01] MEDS: ALBUT/IPRATROP 3MG/0.5MG NEB 3 ML VIAL NEB SCH (07:57)
[2020-08-01] MEDS: amLODIPine BESYLATE 5 MG TAB PO SCH (08:18)
[2020-08-01] MEDS: DOXYCYCLINE HYCLATE 100 MG CAP PO SCH (08:18)
[2020-08-01] MEDS: ATORVASTATIN 20 MG TAB PO SCH (08:18)
[2020-08-01] MEDS: METOPROLOL SUCC 50MG EXT REL TAB PO SCH (08:19)
[2020-08-01] MEDS: METHADONE HCL 5 MG TAB PO SCH (08:19)
[2020-08-01] MEDS: SENNA 8.6 MG TAB PO SCH (08:19)
[2020-08-01] MEDS: FAMOTIDINE 20 MG TAB PO SCH (08:19)
[2020-08-01] MEDS: POTASSIUM CHLORIDE CRTAB 20 MEQ TABCR PO SCH (08:19)
[2020-08-01] MEDS: busPIRone 5 MG TAB PO SCH (08:20)
[2020-08-01] MEDS: LIDOCAINE 5% 1 PATCH TD SCH (08:21)
[2020-08-01] MEDS ORDERED: ALBUT/IPRATROP 3MG/0.5MG NEB 3 ML VIAL NEB PRN (09:53)
--- NOTE | 2020-08-01 10:59 | Discharge Summary ---
Date of Service August 01, 2020 Admission HPI Per Admitting Provider 70-year-old female with PMH chronic hypoxic respiratory failure, COPD, chronic right-sided CHF, paroxysmal atrial fibrillation, CKD stage III, HTN, and other problems listed below who presents to the ED for evaluation after fall. Patient is currently home on hospice. She has been having several falls recently. An attempt was made to place patient from home to nursing facility however due to COVID-19 restrictions, this was not possible. Patient reports that today she was walking with her walker when her legs gave out from under her and she fell onto her knees. Daughter was unable to get her off the ground. Patient reports having pain all over. She has chronic shortness of breath which is at baseline. No chest pain. Denies lightheadedness, dizziness, diaphoresis, syncopal events. No abdominal pain, nausea, vomiting, diarrhea. Denies any other recent illnesses, fevers, chills. No urinary symptoms. In the ED, extensive imaging is negative for acute fractures or findings. Patient received Dilaudid 1 mg p.o. Admission Exam Per Admitting Provider Constitutional: WD/WN, vitals as above Eyes: PERRL, conjunctivae normal, anicteric sclerae ENMT: external ear and nose normal, oropharynx normal Respiratory: normal respiratory effort; no respiratory distress Auscultation: + diminished lung sounds Coarse breath sounds bilaterally Cardiovascular: Rate/Rhythm: regular rate and regular rhythm Vessels: normal peripheral pulses Extremities: + edema (+1 BLE) Gastrointestinal (Abdomen): normal bowel sounds, soft, nontender, no hepatosplenomegaly Musculoskeletal: no cyanosis or clubbing, extremities motor strength 5/5 Skin: no rashes, warm and dry + wound (Sutures noted over right eyebrow) Neurologic: PERRL, EOMI, accommodation nl, no face palsy, no dysarthria Psychiatric: A+Ox3, euthymic affect Principal Diagnosis Multiple falls-multifactorial etiology including physical deconditioning, morbid obesity, narcotic use, polypharmacy, chronic respiratory failure with oxygen dependence and noncompliance with CPAP therapy Right Upper lobe pneumonia-POA COPD exacerbation chronic heart failure chronic respiratory failure SIMONA with noncomplicance with CPAP Discharge Exam CONSTITUTIONAL: morbidly obese, vitals as above, generally well-appearing EYES: normal conjunctivae, no scleral icterus ENT: external ear and nose normal, MMM RESPIRATORY: CTAB, no crackles or rales. normal respiratory effort CARDIOVASCULAR: regular rate and rhythm, S1 and 2 heard without murmurs, gallops or rubs, no JVD, no peripheral edema GASTROINTESTINAL: soft, nontender, nondistended, obese with pannus, no guarding MUSCULOSKELETAL: moves all extremities symmetrically with generalized weakness and physical deconditioning present. Laceration to right forehead that is sutured with good wound healing present and no evidence of drainage or erythema. SKIN: warm and dry NEUROLOGIC: CN 2-12 grossly intact, normal cognition, normal speech, no tremor PSYCHIATRIC: alert cooperative and oriented to person, place and time. Discharge Data Allergies Allergy/AdvReac Type Severity Reaction Status Date / Time adhesive Allergy Severe RED RASH Verified 07/23/20 14:22 latex AdvReac Mild TAPE-SORE Verified 07/23/20 14:22 morphine AdvReac Mild DELUSIONS Verified 07/23/20 14:22 Consultations 07/27/20 14:01 ED Decision to Admit Stat 07/27/20 17:38 Consult Case Management - Discharge Planning Routine Ordered Studies [facility], [phone] XRay Report Patient: DIONNE SAL LAdmit Date: 07/27/20MR#: [id number]: [address]Ac[address] ID:[id number]: [address]Birth Date: 1950City Zip: [place] [address]Pfn: 70Location: EDSex: FRoom/Bed:Att Phy:Diagnosis: FALLPri Phy: Babak Melendez MD(RAMEZ)Service Date: 07/27/20[facility] Phy:Interpreting Phy: Quentin Maier MDAdmit Phy: Ordering Phy: Lorene Obando DO cc: ~ XR chest 1V portable CLINICAL HISTORY: trauma COMPARISON STUDY: Chest radiograph July 05, 2020. FINDINGS: Right shoulder arthroplasty is incidentally noted. There is mild interstitial thickening. Trace left pleural effusion is noted. There is no pneumothorax. Multilevel thoracic spine vertebroplasty is noted. Cardiomegaly is unchanged. Bilateral hilar enlargement is unchanged. There is a 1.4 cm left lower lung nodular opacity. Lateral right midlung opacity is noted. IMPRESSION: 1. No pneumothorax. 2. No significant change in mild interstitial thickening. This may reflect vascular congestion superimposed upon interstitial lung disease. 3. Right midlung opacity which favors atelectasis or scarring. A 1.4 cm left lower lung nodular density which is of questionable significance. Follow-up PA and lateral chest radiographs in one month are recommended. ACT 112: Negative or not required by law. Electronically signed by: Quentin Maier M.D. 07/27/2020 12:44 PM Dictated: 07/27/20 1239Transcribed: 07/27/20 1239 --------- [facility], [phone] XRay Report Patient: DIONNE SAL Date: 07/27/20MR#: [id number]: [address]Acct ID:[id number]: [address]Birth Date: 1950[facility] Zip: [place] [address]Tyi: 70Location: EDSex: FRoom/Bed:Att Phy:Diagnosis: FALLPri Phy: Babak Melendez MD(RAMEZ)Service Date: 07/27/20[facility] Phy:Interpreting Phy: Quentin Maier MDAdmit Phy: Ordering Phy: Lorene Obando DO cc: ~ XR foot RT 2V CLINICAL HISTORY: trauma COMPARISON: Right ankle radiographs July 18, 2017. Right foot radiograph October 18, 2008. FINDINGS: Previous hindfoot fusion is noted. No acute fracture within the right foot is noted. There is osteopenia. 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 IMPRESSION: 1. No acute fracture or dislocation within the right foot. 2. Previous hindfoot fusion. 3. Severe osteoarthritis within the right midfoot. ACT 112: Negative or not required by law. Electronically signed by: Quentin Maier M.D. 07/27/2020 1:07 PM Dictated: 07/27/20 1305Transcribed: 07/27/20 1305 [facility], [phone] XRay Report Patient: DIONNE SAL Date: 07/27/20MR#: [id number]: [address]Acct ID:[id number]: [address]Birth Date: [address] Zip: [place] [address]Xec: 70Location: EDSex: FRoom/Bed:Att Phy:Diagnosis: FALLPri Phy: Babak Melendez MD(RAMEZ)Service Date: 07/27/20Fa Phy:Interpreting Phy: Quentin Maier MDAdmit Phy: Ordering Phy: Lorene Obando DO cc: ~XR knee LT 1 or 2V routine CLINICAL HISTORY: trauma COMPARISON: Left knee radiographs April 12, 2019. FINDINGS: No acute fracture is noted. There is no joint effusion. There is severe medial compartment osteoarthritis. There is moderate patellofemoral compartment osteoarthritis. IMPRESSION: 1. No acute fracture. 2. Moderate to severe left knee osteoarthritis. ACT 112: Negative or not required by law. Electronically signed by: Quentin Maier M.D. 07/27/2020 1:00 PM Dictated: 07/27/20 1259Transcribed: 07/27/20 1259 [facility], [phone] XRay Report Patient: DIONNE SAL Date: 07/27/20MR#: [id number]: [address]Acct ID:[id number]: [address]Birth Date: 1950[facility] Zip: [place] [address]Jje: 70Location: EDSex: FRoom/Bed:Att Phy :Diagnosis: FALLPri Phy: Babak Melendez MD(RAMEZ)Service Date: 07/27/20Fa Phy:Interpreting Phy: Quentin Maier MDAdmit Phy: Ordering Phy: Lorene Obando DO cc: ~ XR knee RT 1 or 2V routine CLINICAL HISTORY: trauma COMPARISON: Right tibia and fibula radiographs July 18, 2017. FINDINGS: No acute fracture is noted. There is no suspicious osseous lesion. Irregularity of the proximal tibial fibular articulation is chronic. Severe osteophytosis within the patellofemoral compartment is noted. There is moderate osteoarthritis within the medial and lateral compartments. There is no definite joint effusion. IMPRESSION: 1. No acute fracture. 2. Moderate to severe right knee osteoarthritis. ACT 112: Negative or not required by law. Electronically signed by: Quentin Maier M.D. 07/27/2020 12:59 PM Dictated: 07/27/20 1258Transcribed: 07/27/20 1258 [facility], [phone] XRay Report Patient: DIONNE SAL Date: 07/27/20MR#: [id number]: [address]Acct ID:[id number]: [address]Birth Date: 1950[facility] Zip: [place] [address]Nbc: 70Location: EDSex: FRoom/Bed:Att Phy:Diagnosis: FALLPri Phy: Babak Melendez MD(RAMEZ)Service Date: 07/27/20Fa Phy:Interpreting Phy: Quentin Maier MDAdmit Phy: Ordering Phy: Lorene Obando DO cc: ~ XR pelvis 1-2V routine CLINICAL HISTORY: trauma COMPARISON: CT of the abdomen and pelvis August 16, 2019. FINDINGS: Right hip arthroplasty is partially imaged. The distal aspect of the femoral component was not imaged on this exam. Heterotopic ossification is noted. Sacroiliac joints and symphysis pubis are intact. No acute fracture within the pelvis or hips is identified. IMPRESSION: 1. No acute fracture within the pelvis or hips. 2. Partial visualization of the total right hip arthroplasty. Visualized portions intact. ACT 112: Negative or not required by law. Electronically signed by: Quentin Maier M.D. 07/27/2020 1:01 PM Dictated: 07/27/20 1300Transcribed: 07/27/20 1300 [facility], [phone] XRay Report Patient: DIONNE SAL Date: 07/27/20MR#: [id number]: [address]Acct ID:[id number]: [address]Birth Date: 1950 Zip: [place] [address]Oqn: 70Location: EDSex: FRoom/Bed:Att Phy:Diagnosis: FALLPri Phy: Babak Melendez MD(RAMEZ)Service Date: 07/27/20[facility] Phy:Interpreting Phy: Quentin Maier MDAdmit Phy: Ordering Phy: Lorene Obando DO cc: ~ XR wrist RT 2V CLINICAL HISTORY: trauma COMPARISON: Right wrist radiographs 07/23/2020. FINDINGS: Distal right radial plate and screws are noted. There is an old, healed distal right radial fracture. No acute fracture is noted. A well- corticated ossicle along the ulnar styloid is unchanged. This is old. There is moderate osteoarthritis within the right first carpometacarpal joint. IMPRESSION: 1. No acute fracture or dislocation of the right wrist. 2. Healed distal right radial fracture status post internal fixation. ACT 112: Negative or not required by law. Electronically signed by: Quentin Maier M.D. 07/27/2020 1:04 PM Dictated: 07/27/20 1303Transcribed: 07/27/20 1303 [facility], [phone] CT Scan Report Patient: DIONNE SAL LAdpio Date: 07/27/20#: [id number]: [address]Acct ID:[id number]: [address]Birth Date: [address] Zip: [place] [address]Ufr: 70Location: 3WSex: FRoom/Bed: [id number] Phy: Jai Fonseca MDDiagnosis: FALLPri Phy: Babak Melendez MD(RAMEZ)Service Date: 07/28/20[facility] Phy:Interpreting Phy: [facility] Phy: Jai Fonseca MD Ordering Phy: Spencer Lowery MD cc: ~ CT head/brain wo con CLINICAL HISTORY: 70 years-old Female with double vision, hx head trauma. Acute head trauma TECHNIQUE: Multiple axial CT images of the head were obtained without contrast. A dose lowering technique was utilized adhering to the principles of ALARA. CT DOSE: 537.48 mGy.cm COMPARISON: Head CT 07/23/2020 FINDINGS: No acute intracranial hemorrhage, midline shift, intracranial mass, hydrocephalus, territorial ischemia or abnormal extra-axial collection. Patchy white matter hypodensities suggest chronic microvascular ischemic disease. Age- related involutional changes. The calvarium is intact. There is decreased size of the previously noted subacute supraorbital scalp hematoma/contusion. The paranasal sinuses, mastoid air cells, and middle ear cavities are clear. IMPRESSION: No acute intracranial abnormality or calvarial fracture. ACT 112: Negative or not required by law. The above report was generated using voice recognition software. It may contain grammatical, syntax or spelling errors. Electronically signed by: Ariel Shah M.D. 07/29/2020 6:58 AM Dictated: 07/29/20 0655Transcribed: 07/29/20 0655 [place], [phone] CT Scan Report Patient: DIONNE SAL Date: 07/27/20MR#: [id number]: [address]Acct ID:[id number]: [address]Birth Date: 1950[facility] Zip: [place] [address]Dni: 70Location: 3WSex: FRoom/Bed: [id number] Phy: Jai Fonseca, ROSARIOiagnosis: FALLPri Phy: Babak Melendez MD(RAMEZ)Service Date: 07/29/20Fa Phy:Interpreting Phy: Fox Garcia MDAdmit Phy: Jai Fonseca MD Ordering Phy: Spencer Lowery MD cc: ~ CT chest diagnostic wo con CLINICAL HISTORY: Right-sided chest pain. History of trauma. COMPARISON STUDY: 09/27/2019 CT DOSE: 987.33 mGy.cm TECHNIQUE: CT of the thorax was performed from the thoracic inlet to the lung bases. Images are reviewed in the axial, sagittal, and coronal planes. IV contrast was not administered for this examination. A dose lowering technique was utilized adhering to the principles of ALARA. FINDINGS: Thyroid: There is a persistent 50 mm right lobe thyroid nodule. Thoracic aorta: The thoracic aorta is normal in course and caliber, noting standard 3 vessel arch anatomy. Heart: The heart is enlarged. There are coronary artery calcifications. There is no pericardial effusion. There is enlargement of the central pulmonary arteries. Pulmonary arterial hypertension is suspected Lungs and pleural spaces: There is pulmonary emphysema. There is lower lobe bronchiectasis and parenchymal consolidation. There are peripheral airspace opacities within the right upper lobe which appear progressive. Mediastinum: There are borderline enlarged mediastinal lymph nodes. Karuna: Mildly enlarged hilar lymph nodes are suspected. Axilla: Clear. Upper abdomen: Partially visualized upper abdominal viscera is within normal limits. Skeletal structures: There are old right-sided rib deformities. There is an old thoracic compression fractures status post vertebroplasty. IMPRESSION: 1. Stable 15 mm right lobe thyroid nodule 2. Persistent mild mediastinal and hilar lymphadenopathy 3. Pulmonary emphysema 4. Lower lobe bronchiectasis with progressive lower lobe atelectasis/consolidation, and developing peripheral right upper lobe airspace opacities. An acute infectious process cannot be excluded and clinical and radiographic follow-up is recommended ACT 112: Negative or not required by law. Electronically signed by: Fox Garcia M.D. 07/29/2020 7:41 AM Dictated: 07/29/20 0736Transcribed: 07/29/20 0736 Hospital Course (1) Right upper lobe pneumonia: (2) COPD with exacerbation: (3) Frequent falls: (4) Ambulatory dysfunction: (5) Weakness: (6) Chronic right-sided CHF (congestive heart failure): (7) PAF (paroxysmal atrial fibrillation): (8) Chronic respiratory failure with hypoxia: (9) Morbid obesity: The patient is a 70-year-old female who is currently on home hospice who presented to the hospital with multiple falls at home and weakness. Multiple factors here included noncompliance with CPAP therapy, polypharmacy, adverse side effects of medications that are well known to cause drowsiness and falls such as narcotics and benzodiazepines. Initial notes reveal an attempt made to place patient from home to a nursing facility directly however hospitalization was required. She has a history of chronic right-sided CHF and appears euvolemic on admission with her home diuretics continued. She had a history of paroxysmal atrial fibrillation which was rate controlled on metoprolol and rhythm controlled on propafenone. These were also continued. She has a history of chronic respiratory failure with hypoxia and COPD with a baseline need of 4 L/min of supplemental oxygen. Based on her fall history extensive imaging was performed in the ER and negative for fractures. She did receive pain medication for reports of pain all over. She was continued on Dilaudid, methadone, and o ther sedating medications which we discussed may likely can continue to contribute to falls. Some of these include gabapentin and lorazepam. She did have a right eyebrow laceration that was sutured. She was felt to have a mild exacerbation of COPD and was started on doxycycline with scheduled bronchodilator therapy. The following day she was also thought to have mild acute on chronic right-sided heart failure and was given IV Lasix. This was a concern after the patient desaturated to 84% on CPAP. She responded well to therapy and a CT scan was performed revealing a right upper lobe pneumonia. Expectorated sputum sample revealed some bacteria that was not speciated by the time of discharge. Although she had continued to improve on doxycycline her antibiotic was changed to Levaquin to cover the concerning organism. She was discharged to [facility] facility for further care long-term. At time of discharge she was mentating and ambulating at baseline and tolerating p.o. She was hemodynamically stable and afebrile and oxygenating well on her baseline 4 L/min. She was discharged to SNF in stable condition. Total Time Total Time Spent Total Time Spent (In Minutes): 60 Total Time Includes: Examination of the Patient, Discharge Planning, Medication Reconciliation and Communication With Other Providers Discharge Plan Discharge Items Patient Disposition: [facility] Reason For Visit: FALL Discharge Diagnosis: Multiple falls-multifactorial etiology including physical deconditioning, morbid obesity, narcotic use, polypharmacy, chronic respiratory failure with oxygen dependence and noncompliance with CPAP therapy Right Upper lobe pneumonia-POA COPD exacerbation chronic heart failure chronic respiratory failure SIMONA with noncomplicance with CPAP Condition on Discharge: Good Activity: Resume your previous activity Non-emergency contact: Primary Care Provider Call non-emergency contact if: you have any medication questions and your symptoms worsen Follow-up/Referrals: Babak Melendez MD [Primary Care Provider] - Diet: Heart Healthy Addtl Attending Provider Instructions: Please take all medications as instructed on medication list. You are being placed on Levaquin every other day for 7 days, starting 08/01, which is an antibiotic to combat a presumed developing pneumonia. This antibiotic class can interact with steroids and can side effects including tendonitis. If you feel pain in your tendons during the time you are taking this medication please discuss with your healthcare provider. Regarding the recommendation for steroid dosage, you should take an additional 20mg daily for three days (total 30mg daily with your chronic 10mg daily, also added), then resume your chronic 10mg daily dosing. A repeat chest CT is recommended to ensure complete resolution of progressive, developing pneumonia. It is recommended that you follow-up with your primary care provider (PCP) within 1-2 weeks of this hospital stay to ensure you are still doing well. At this appointment, you may discuss ordering of repeat films and readdress goal of care. Additionally, polypharmacy (the interaction of taking too many medications) may be contributing to your falls, along with other medication side effects that are well known such as drowsiness and fatigue. It is a good idea to work with your PCP to identify and eliminate these risks, if possible. It was a pleasure taking care of you! Please call if you have any questions or problems. You can reach a [facility] hospitalist on duty at [facility] 24 hours a day by calling [phone]. Take care of yourself. Tonie Ann, DO [facility] Hospitalist Pending Studies at Discharge: Yes Studies:: sputum culture Stand-Alone Forms: My [facility] Skilled Items Patient informed of condition?: Yes DNR: Yes Discharge Level of Care: Skilled Communicable Disease: No Discharge Prognosis: Stable Lines: None Urinary Catheter: No Medications and DC Order Prescriptions: New levofloxacin 750 mg Tablet 750 mg PO Q2D@1100 Qty: 4 RF: 0 Continued propafenone 150 mg Tablet 150 mg PO Q8H RF: 0 metoprolol succinate 50 mg Tablet Extended Release 24 Hr 50 mg PO DAILY RF: 0 albuterol sulfate 2.5 mg /3 mL (0.083 %) Solution For Nebulization 2.5 mg INHALATION .Q4-6HRS PRN (Reason: Shortness Of Breath Or Wheezing) RF: 0 potassium chloride [Klor-Con M20] 20 mEq tablet,ER particles/crystals 20 meq PO DAILY RF: 0 bumetanide 1 mg tablet 1 mg PO DAILY RF: 0 metolazone 2.5 mg tablet 2.5 mg PO 2XWK RF: 0 gabapentin 600 mg tablet 1,200 mg PO HS RF: 0 sertraline 50 mg tablet 50 mg PO HS RF: 0 sennosides [senna] 8.6 mg tablet 8.6 mg PO BID RF: 0 prednisone 10 mg tablet 10 mg PO DAILY RF: 0 amlodipine [Norvasc] 10 mg tablet 10 mg PO DAILY RF: 0 buspirone 10 mg tablet 10 mg PO BID RF: 0 lorazepam 1 mg tablet 0.5 mg PO Q4H PRN (Reason: Anxiety) RF: 0 methadone 5 mg tablet 2.5 mg PO DAILY RF: 0 hydromorphone [Dilaudid] 1 mg/mL liquid 1 mg PO Q2H PRN (Reason: Pain) RF: 0 ranitidine HCl 150 mg Tablet 150 mg PO BID RF: 0 atorvastatin 20 mg tablet 20 mg PO DAILY RF: 0 levothyroxine 88 mcg tablet 88 mcg PO DAILY RF: 0 Discharge Orders: Discharge Order (Routine); Ordered 08/01/20 Ordered By: Tonie Ann Admission Data Admit Date/Time: 07/27/20 13:41 Attending Provider: Tonie Ann Admit Provider: Jai Fonseca Primary Care Provider: Babak Melendez Other Providers: Jai Fonseca ; [facility] ; [facility] ; [facility], Other Interventions: Discharge Summary Assessment (RN) Last Done: 08/01/20 11:43
[2020-08-01] MEDS ORDERED: levoFLOXacin 750 MG TAB PO SCH (11:00)
[2020-08-01] MEDS ORDERED: HYDROmorphone HCL 2 MG TAB PO STA (13:07)
== END 2020-08-01 14:41 | DRG 194 ==
LOC: ED 10:39 → 3W 13:41 → SUATTDRO 13:41 → 3W 17:06